=== PATIENT | male | born 1975 | race Two or more races ===

== ENCOUNTER 2016-06-25 | Inpatient (IN) | END 2017-06-24 23:59 | disposition still patient (30) | DRG 189 | DX: J96.10 Chronic respiratory failure, unspecified whether with hypoxia or hypercapnia (principal); G93.1 Anoxic brain damage, not elsewhere classified; R40.3 Persistent vegetative state; Z93.0 Tracheostomy status; R13.10 Dysphagia, unspecified; Z66 Do not resuscitate; K21.9 Gastro-esophageal reflux disease without esophagitis; K62.89 Other specified diseases of anus and rectum; Z87.19 Personal history of other diseases of the digestive system; I10 Essential (primary) hypertension; M24.50 Contracture, unspecified joint; G40.909 Epilepsy, unspecified, not intractable, without status epilepticus ==

== ENCOUNTER → 2016-09-02 | Outpatient (CLI) | payer OTHER ==
[~2016-09-02] MED LIST: ACET160E13 GT; BACL20TA GT; DOCU-25 GT; HEPA500014 SQ; IOHEXOL 300MG/ML 100 ML INFUS..BTL ONE; IV NORMAL SALINE 250 ML IV ONE; OMEG1CAP GT; PANT40TA2 GT; PHEN60TA11 GT; POLY15DR27 EACHEYE; TOLT2TAB2 GT; VALP250S3 GT
== END | disposition home or self-care (01) ==
LOC: CT 08:07
PROVIDERS: ATTEND Internal Medicine
DX: N40.1 Benign prostatic hyperplasia with lower urinary tract symptoms (principal); M24.452 Recurrent dislocation, left hip; R10.9 Unspecified abdominal pain
CPT/HCPCS: J7050; Q9967

== ENCOUNTER 2017-06-25 | Inpatient (IN) | END 2018-06-24 11:59 | disposition other institution (70) | DRG 189 | DX: J96.11 Chronic respiratory failure with hypoxia (principal); G93.1 Anoxic brain damage, not elsewhere classified; R40.3 Persistent vegetative state; L02.11 Cutaneous abscess of neck; L02.214 Cutaneous abscess of groin; L02.412 Cutaneous abscess of left axilla; Z93.0 Tracheostomy status; R13.10 Dysphagia, unspecified; Z66 Do not resuscitate; K21.9 Gastro-esophageal reflux disease without esophagitis; K62.89 Other specified diseases of anus and rectum; Z87.19 Personal history of other diseases of the digestive system; I10 Essential (primary) hypertension; M24.50 Contracture, unspecified joint; G40.909 Epilepsy, unspecified, not intractable, without status epilepticus; H10.9 Unspecified conjunctivitis; E78.1 Pure hyperglyceridemia; L73.9 Follicular disorder, unspecified; Z93.1 Gastrostomy status; Z74.01 Bed confinement status ==

== ENCOUNTER 2018-06-25 | Inpatient (IN) | END 2019-06-24 23:59 | disposition still patient (30) | DRG 189 | DX: J96.11 Chronic respiratory failure with hypoxia (principal); G93.1 Anoxic brain damage, not elsewhere classified; R40.3 Persistent vegetative state; L02.11 Cutaneous abscess of neck; N39.0 Urinary tract infection, site not specified; Z93.0 Tracheostomy status; R13.10 Dysphagia, unspecified; Z66 Do not resuscitate; Z86.74 Personal history of sudden cardiac arrest; K21.9 Gastro-esophageal reflux disease without esophagitis; K62.89 Other specified diseases of anus and rectum; Z87.19 Personal history of other diseases of the digestive system; M24.50 Contracture, unspecified joint; G40.909 Epilepsy, unspecified, not intractable, without status epilepticus; H10.9 Unspecified conjunctivitis; E78.1 Pure hyperglyceridemia; L73.9 Follicular disorder, unspecified; Z93.1 Gastrostomy status; Z74.01 Bed confinement status; H66.90 Otitis media, unspecified, unspecified ear; R32 Unspecified urinary incontinence; Z88.1 Allergy status to other antibiotic agents; L72.3 Sebaceous cyst; B96.5 Pseudomonas (aeruginosa) (mallei) (pseudomallei) as the cause of diseases classified elsewhere; I50.9 Heart failure, unspecified; I11.0 Hypertensive heart disease with heart failure; G62.9 Polyneuropathy, unspecified ==

== ENCOUNTER 2019-06-25 | Inpatient (IN) | payer OTHER ==
[~2019-06-25] VITALS: Ht 182.9 cm; Wt 83.0 kg
[~2019-06-25] MED LIST changes: -ACET160E13 GT; +ACET160E61 GT; +DOCU-141 GT; -DOCU-25 GT; -IOHEXOL 300MG/ML 100 ML INFUS..BTL ONE; -IV NORMAL SALINE 250 ML IV ONE
[2019-06-26 10:11] VITALS: BP 87/52
[2019-06-26] MEDS ORDERED: ACETAMINOPHEN 650 MG/20 ML UDC- SA PATIENTS-PAIN ONLY GT PRN (10:15)
[2019-06-26] MEDS ORDERED: IPRATROPIUM BROMIDE 0.5 MG/2.5 ML NEBU NEB PRN (10:15)
[2019-06-26] MEDS ORDERED: COD LIVER OIL/ZINC OXIDE OINT 113 GM TUBE TP PRN (10:15)
[2019-06-26] MEDS ORDERED: chlorproMAZINE 25 MG TABLET GT PRN (10:15)
[2019-06-26] MEDS ORDERED: ALBUTEROL SULFATE 1.25 MG/3 ML NEBU NEB PRN (10:15)
[2019-06-26] MEDS ORDERED: BISACODYL 10 MG SUPP.RECT RC PRN (10:15)
[2019-06-26] MEDS ORDERED: HYDROGEN PEROXIDE 3% 118 ML BOTTLE TP PRN (10:15)
[2019-06-26] MEDS: POLYVINYL ALCOHOL OPHT DROPS 15 ML BOTTLE EACHEYE SCH ×2 (16:51→20:54)
[2019-06-26] MEDS: IPRATROPIUM BROMIDE 0.5 MG/2.5 ML NEBU NEB SCH (19:40)
[2019-06-26] MEDS: ALBUTEROL SULFATE 1.25 MG/3 ML NEBU NEB SCH (19:40)
[2019-06-26 19:56] VITALS: BP 107/66
[2019-06-26] MEDS: HYDROGEN PEROXIDE 3% 118 ML BOTTLE TP SCH (20:41)
[2019-06-26] MEDS: PHENOBARBITAL 32.4 MG TABLET GT SCH (20:55)
[2019-06-26] MEDS: GEMFIBROZIL 600 MG TABLET GT SCH (20:55)
[2019-06-26] MEDS: PROTEIN SUPPLEMENT (PROSTAT) 30 ML LIQUID GT SCH (20:55)
[2019-06-26] MEDS: OMEGA-3 FATTY ACIDS/FISH OIL CAPSULE GT SCH (20:55)
[2019-06-26] MEDS: CHOLECALCIFEROL 1,000 UNIT TABLET GT SCH (20:55)
[2019-06-26] MEDS: ACIDOPHILUS/BULGARICUS CHEW TAB GT SCH (20:55)
[2019-06-26] MEDS: BACLOFEN 20 MG TABLET GT SCH (20:55)
[2019-06-26] MEDS: AMOXICILLIN-CLAVUL 875-125MG TABLET GT SCH (20:55)
[2019-06-26] MEDS: COD LIVER OIL/ZINC OXIDE OINT 113 GM TUBE TP SCH (20:56)
[2019-06-26] MEDS: BENZOYL PEROXIDE 10% GEL 60 GM TUBE TP SCH (20:56)
[2019-06-26] MEDS: VITAMINS A AND D OINT TP SCH (20:56)
[2019-06-26] MEDS: KETOCONAZOLE 2% SHAMPOO 120 ML BOTTLE TP SCH (20:56)
[2019-06-26] MEDS: VALPROIC ACID 250 MG/5 ML LIQUID UDC GT SCH (21:35)
[2019-06-26] MEDS: ENOXAPARIN SODIUM 40 MG/0.4 ML DISP.SYRIN SQ SCH (21:35)
[2019-06-26] MEDS: JEVITY 1.2 1000 ML LIQUID GT PRN (22:30)
[2019-06-27] MEDS: IPRATROPIUM BROMIDE 0.5 MG/2.5 ML NEBU NEB SCH ×4 (01:54→20:29)
[2019-06-27] MEDS: ALBUTEROL SULFATE 1.25 MG/3 ML NEBU NEB SCH ×4 (01:55→20:29)
[2019-06-27] MEDS: PANTOPRAZOLE ORAL SUSPENSION 40 MG SUSPDR.PKT GT SCH (05:11)
[2019-06-27] MEDS: VALPROIC ACID 250 MG/5 ML LIQUID UDC GT SCH ×3 (05:11→22:03)
[2019-06-27] MEDS: AMOXICILLIN-CLAVUL 875-125MG TABLET GT SCH ×2 (08:34→20:55)
[2019-06-27] MEDS: GEMFIBROZIL 600 MG TABLET GT SCH ×2 (08:34→20:55)
[2019-06-27] MEDS: POLYVINYL ALCOHOL OPHT DROPS 15 ML BOTTLE EACHEYE SCH ×4 (08:34→20:55)
[2019-06-27] MEDS: BACLOFEN 20 MG TABLET GT SCH ×3 (08:34→20:55)
[2019-06-27] MEDS: ACIDOPHILUS/BULGARICUS CHEW TAB GT SCH ×2 (08:34→20:55)
[2019-06-27] MEDS: NUTRISOURCE FIBER 4 GM PACKET GT SCH (08:34)
[2019-06-27] MEDS: DOCUSATE SODIUM 100 MG/10 ML LIQUID UDC GT SCH (08:34)
[2019-06-27] MEDS: VITAMINS A AND D OINT TP SCH ×2 (08:35→20:59)
[2019-06-27] MEDS: CHLORHEXIDINE GLUCONATE 4% TOP SOL 118 ML TP SCH ×2 (08:35)
[2019-06-27] MEDS: PROTEIN SUPPLEMENT (PROSTAT) 30 ML LIQUID GT SCH ×2 (08:35→20:55)
[2019-06-27] MEDS: PHENOBARBITAL 32.4 MG TABLET GT SCH ×2 (08:35→20:55)
[2019-06-27] MEDS: COD LIVER OIL/ZINC OXIDE OINT 113 GM TUBE TP SCH ×2 (08:35→20:59)
[2019-06-27] MEDS ORDERED: PHENOBARBITAL 32.4 MG TABLET PO ONE ×4 (09:00→21:00)
[2019-06-27] MEDS: HYDROGEN PEROXIDE 3% 118 ML BOTTLE TP SCH ×2 (09:56→21:34)
[2019-06-27 11:13] VITALS: BP 95/62
[2019-06-27] MEDS: JEVITY 1.2 1000 ML LIQUID GT PRN (17:19)
[2019-06-27 20:12] VITALS: BP 97/64
[2019-06-27] MEDS: OMEGA-3 FATTY ACIDS/FISH OIL CAPSULE GT SCH (20:55)
[2019-06-27] MEDS: CHOLECALCIFEROL 1,000 UNIT TABLET GT SCH (20:55)
[2019-06-27] MEDS: ENOXAPARIN SODIUM 40 MG/0.4 ML DISP.SYRIN SQ SCH (20:59)
[2019-06-27] MEDS: BENZOYL PEROXIDE 10% GEL 60 GM TUBE TP SCH (20:59)
[2019-06-28] MEDS: IPRATROPIUM BROMIDE 0.5 MG/2.5 ML NEBU NEB SCH ×4 (01:07→20:02)
[2019-06-28] MEDS: ALBUTEROL SULFATE 1.25 MG/3 ML NEBU NEB SCH ×4 (01:07→20:02)
[2019-06-28] MEDS: VALPROIC ACID 250 MG/5 ML LIQUID UDC GT SCH ×3 (05:22→21:18)
[2019-06-28] MEDS: PANTOPRAZOLE ORAL SUSPENSION 40 MG SUSPDR.PKT GT SCH (05:22)
[2019-06-28] MEDS: POLYVINYL ALCOHOL OPHT DROPS 15 ML BOTTLE EACHEYE SCH ×4 (08:45→21:17)
[2019-06-28] MEDS: AMOXICILLIN-CLAVUL 875-125MG TABLET GT SCH ×2 (08:46→21:17)
[2019-06-28] MEDS: DOCUSATE SODIUM 100 MG/10 ML LIQUID UDC GT SCH (08:46)
[2019-06-28] MEDS: ACIDOPHILUS/BULGARICUS CHEW TAB GT SCH ×2 (08:46→21:17)
[2019-06-28] MEDS: PROTEIN SUPPLEMENT (PROSTAT) 30 ML LIQUID GT SCH ×2 (08:47→21:17)
[2019-06-28] MEDS: NUTRISOURCE FIBER 4 GM PACKET GT SCH (08:47)
[2019-06-28] MEDS: COD LIVER OIL/ZINC OXIDE OINT 113 GM TUBE TP SCH ×2 (08:47→21:18)
[2019-06-28] MEDS: BACLOFEN 20 MG TABLET GT SCH ×3 (08:47→21:17)
[2019-06-28] MEDS: GEMFIBROZIL 600 MG TABLET GT SCH ×2 (08:47→21:17)
[2019-06-28] MEDS: CHLORHEXIDINE GLUCONATE 4% TOP SOL 118 ML TP SCH ×2 (08:47→08:48)
[2019-06-28] MEDS: VITAMINS A AND D OINT TP SCH ×2 (08:48→21:18)
[2019-06-28] MEDS: PHENOBARBITAL 32.4 MG TABLET GT SCH ×2 (09:00→21:17)
[2019-06-28] MEDS ORDERED: PHENOBARBITAL 32.4 MG TABLET PO ONE ×4 (09:00→21:00)
[2019-06-28] MEDS: HYDROGEN PEROXIDE 3% 118 ML BOTTLE TP SCH ×2 (10:10→21:57)
[2019-06-28 11:06] VITALS: BP 105/71
[2019-06-28] MEDS: JEVITY 1.2 1000 ML LIQUID GT PRN (12:32)
[2019-06-28] MEDS: CHOLECALCIFEROL 1,000 UNIT TABLET GT SCH (21:17)
[2019-06-28] MEDS: OMEGA-3 FATTY ACIDS/FISH OIL CAPSULE GT SCH (21:17)
[2019-06-28] MEDS: ENOXAPARIN SODIUM 40 MG/0.4 ML DISP.SYRIN SQ SCH (21:18)
[2019-06-28] MEDS: BENZOYL PEROXIDE 10% GEL 60 GM TUBE TP SCH (21:18)
--- NOTE | 2019-06-28 22:30 | NUR ---
eri mohr n.p. was in seen pt, no new orders.
[2019-06-28 22:43] VITALS: BP 95/64
[2019-06-29] MEDS: ALBUTEROL SULFATE 1.25 MG/3 ML NEBU NEB SCH ×4 (00:43→19:33)
[2019-06-29] MEDS: IPRATROPIUM BROMIDE 0.5 MG/2.5 ML NEBU NEB SCH ×4 (00:43→19:33)
[2019-06-29] MEDS: PANTOPRAZOLE ORAL SUSPENSION 40 MG SUSPDR.PKT GT SCH (06:09)
[2019-06-29] MEDS: VALPROIC ACID 250 MG/5 ML LIQUID UDC GT SCH ×3 (06:09→21:48)
[2019-06-29] MEDS: HYDROGEN PEROXIDE 3% 118 ML BOTTLE TP SCH ×2 (07:49→21:05)
[2019-06-29 08:01] VITALS: BP 113/71
[2019-06-29] MEDS ORDERED: PHENOBARBITAL 32.4 MG TABLET PO ONE ×2 (09:00)
[2019-06-29] MEDS: GEMFIBROZIL 600 MG TABLET GT SCH ×2 (09:22→21:48)
[2019-06-29] MEDS: BACLOFEN 20 MG TABLET GT SCH ×3 (09:22→21:48)
[2019-06-29] MEDS: ACIDOPHILUS/BULGARICUS CHEW TAB GT SCH ×2 (09:22→21:48)
[2019-06-29] MEDS: POLYVINYL ALCOHOL OPHT DROPS 15 ML BOTTLE EACHEYE SCH ×4 (09:22→21:48)
[2019-06-29] MEDS: COD LIVER OIL/ZINC OXIDE OINT 113 GM TUBE TP SCH ×2 (09:22→21:48)
[2019-06-29] MEDS: PROTEIN SUPPLEMENT (PROSTAT) 30 ML LIQUID GT SCH ×2 (09:22→21:48)
[2019-06-29] MEDS: NUTRISOURCE FIBER 4 GM PACKET GT SCH (09:22)
[2019-06-29] MEDS: PHENOBARBITAL 32.4 MG TABLET GT SCH ×2 (09:22→21:48)
[2019-06-29] MEDS: AMOXICILLIN-CLAVUL 875-125MG TABLET GT SCH ×2 (09:22→21:48)
[2019-06-29] MEDS: DOCUSATE SODIUM 100 MG/10 ML LIQUID UDC GT SCH (09:22)
[2019-06-29] MEDS: VITAMINS A AND D OINT TP SCH ×2 (09:23→21:48)
[2019-06-29] MEDS: CHLORHEXIDINE GLUCONATE 4% TOP SOL 118 ML TP SCH ×2 (09:23)
[2019-06-29 20:24] VITALS: BP 100/61
--- NOTE | 2019-06-29 21:30 | NUR ---
Remains on Augmentin via gt for folliculitlis, no adverse reactions noted, with ongoing treatment as ordered, kept skin clean and dry, will continue monitor.
[2019-06-29] MEDS: OMEGA-3 FATTY ACIDS/FISH OIL CAPSULE GT SCH (21:48)
[2019-06-29] MEDS: CHOLECALCIFEROL 1,000 UNIT TABLET GT SCH (21:48)
[2019-06-29] MEDS: BENZOYL PEROXIDE 10% GEL 60 GM TUBE TP SCH (21:48)
[2019-06-29] MEDS: ENOXAPARIN SODIUM 40 MG/0.4 ML DISP.SYRIN SQ SCH (21:49)
[2019-06-30] MEDS: IPRATROPIUM BROMIDE 0.5 MG/2.5 ML NEBU NEB SCH ×4 (01:03→19:15)
[2019-06-30] MEDS: ALBUTEROL SULFATE 1.25 MG/3 ML NEBU NEB SCH ×4 (01:04→19:15)
[2019-06-30] MEDS: VALPROIC ACID 250 MG/5 ML LIQUID UDC GT SCH ×3 (05:26→22:21)
[2019-06-30] MEDS: PANTOPRAZOLE ORAL SUSPENSION 40 MG SUSPDR.PKT GT SCH (05:34)
[2019-06-30 08:00] VITALS: BP 101/64
[2019-06-30] MEDS: HYDROGEN PEROXIDE 3% 118 ML BOTTLE TP SCH ×2 (09:00→21:12)
[2019-06-30] MEDS: BACLOFEN 20 MG TABLET GT SCH ×3 (09:55→21:00)
[2019-06-30] MEDS: GEMFIBROZIL 600 MG TABLET GT SCH ×2 (09:55→21:00)
[2019-06-30] MEDS: NUTRISOURCE FIBER 4 GM PACKET GT SCH (09:55)
[2019-06-30] MEDS: ACIDOPHILUS/BULGARICUS CHEW TAB GT SCH ×2 (09:55→21:00)
[2019-06-30] MEDS: DOCUSATE SODIUM 100 MG/10 ML LIQUID UDC GT SCH (09:55)
[2019-06-30] MEDS: PHENOBARBITAL 32.4 MG TABLET GT SCH ×2 (09:55→21:00)
[2019-06-30] MEDS: POLYVINYL ALCOHOL OPHT DROPS 15 ML BOTTLE EACHEYE SCH ×4 (09:55→21:00)
[2019-06-30] MEDS: COD LIVER OIL/ZINC OXIDE OINT 113 GM TUBE TP SCH ×2 (09:56→21:00)
[2019-06-30] MEDS: CHLORHEXIDINE GLUCONATE 4% TOP SOL 118 ML TP SCH ×2 (09:56)
[2019-06-30] MEDS: PROTEIN SUPPLEMENT (PROSTAT) 30 ML LIQUID GT SCH ×2 (09:56→21:00)
[2019-06-30] MEDS: VITAMINS A AND D OINT TP SCH ×2 (09:56→21:00)
[2019-06-30 19:56] VITALS: BP 106/67
[2019-06-30] MEDS: ENOXAPARIN SODIUM 40 MG/0.4 ML DISP.SYRIN SQ SCH (21:00)
[2019-06-30] MEDS: KETOCONAZOLE 2% SHAMPOO 120 ML BOTTLE TP SCH (21:00)
[2019-06-30] MEDS: BENZOYL PEROXIDE 10% GEL 60 GM TUBE TP SCH (21:00)
[2019-06-30] MEDS: CHOLECALCIFEROL 1,000 UNIT TABLET GT SCH (21:00)
[2019-06-30] MEDS: OMEGA-3 FATTY ACIDS/FISH OIL CAPSULE GT SCH (21:00)
[2019-07-01] MEDS: ALBUTEROL SULFATE 1.25 MG/3 ML NEBU NEB SCH ×4 (01:02→18:48)
[2019-07-01] MEDS: IPRATROPIUM BROMIDE 0.5 MG/2.5 ML NEBU NEB SCH ×4 (01:02→18:48)
[2019-07-01] MEDS: PANTOPRAZOLE ORAL SUSPENSION 40 MG SUSPDR.PKT GT SCH (05:14)
[2019-07-01] MEDS: VALPROIC ACID 250 MG/5 ML LIQUID UDC GT SCH ×3 (05:14→22:36)
[2019-07-01] MEDS: JEVITY 1.2 1000 ML LIQUID GT PRN (06:46)
[2019-07-01 08:00] VITALS: BP 124/76
[2019-07-01] MEDS: COD LIVER OIL/ZINC OXIDE OINT 113 GM TUBE TP SCH ×2 (09:00→21:00)
[2019-07-01] MEDS: PROTEIN SUPPLEMENT (PROSTAT) 30 ML LIQUID GT SCH ×2 (09:00→21:00)
[2019-07-01] MEDS: GEMFIBROZIL 600 MG TABLET GT SCH ×2 (09:00→21:00)
[2019-07-01] MEDS: VITAMINS A AND D OINT TP SCH ×2 (09:00→21:00)
[2019-07-01] MEDS: BACLOFEN 20 MG TABLET GT SCH ×3 (09:00→21:00)
[2019-07-01] MEDS: DOCUSATE SODIUM 100 MG/10 ML LIQUID UDC GT SCH (09:00)
[2019-07-01] MEDS: ACIDOPHILUS/BULGARICUS CHEW TAB GT SCH ×2 (09:00→21:00)
[2019-07-01] MEDS: NUTRISOURCE FIBER 4 GM PACKET GT SCH (09:00)
[2019-07-01] MEDS: CHLORHEXIDINE GLUCONATE 4% TOP SOL 118 ML TP SCH ×2 (09:00)
[2019-07-01] MEDS: HYDROGEN PEROXIDE 3% 118 ML BOTTLE TP SCH ×2 (09:00→21:23)
[2019-07-01] MEDS: POLYVINYL ALCOHOL OPHT DROPS 15 ML BOTTLE EACHEYE SCH ×4 (09:00→21:00)
[2019-07-01] MEDS: PHENOBARBITAL 32.4 MG TABLET GT SCH ×2 (09:00→21:00)
--- NOTE | 2019-07-01 14:15 | NUR ---
Pharmacy Update from Today's 07/01/19 IDT Meeting: VS: Temp 98 BP 124/76 HR 86 LABS: (from 04/28/19, no new labs) Wbc 4.3 H/H 14/8/44.1 Plt 185 Na 140 K 4.3 Cl 103 CO2 31 BUN/SCr 11/0.3 BS 96 Ca 9.0 A1C 5.1 MEDICATION USE REVIEWED: > Pt on Phenobarbital 64.8mg BID. Last level on 03/12/19 per rx rec was 36.4 (15-39) > Pt on Valproic acid 1000mg qhs and 500mg qam and 1400. Last level on 03/12/19 was 45 (50-100). Although valcoid acid level slightly low, MD elected continuation with no change in current dose as has been stable on current dose for prolonged period, no reported seizure activity in past month > On Lovenox 40mg SQ daily for DVT Prophylaxis started 01/08. Latest plt 185 > PRN MED USAGE: (Dec) Tylenol for pain used x1 Tylenol for temp used x0 Thorazine 25mg PRN hiccups x0 Bisacodyl supp used x0 NEW ORDERS NOTED: > Doxycycline 100mg q12hr 06/16-06/22 for folliculitis > Augmenting 06/22-06/29 for folliculitis Pt was reviewed and discussed in depth, with no medication issues noted per team. Remains stable, completed courses of abx for pt's chronic ongoing folliculitis which resurfaces now and then. No further medication changes or issues noted per staff, no further recs at this time. Will continue to monitor
--- NOTE | 2019-07-01 16:33 | NUR ---
INTERDISCIPLINARY PLAN OF CARE CONFERENCE was held today. Patient's mother was unable to attend the meeting. Dr. Bowser and the Interdisciplinary Team reviewed the current plan of care in detail. RN reported on patient's current medical condition and recently completed treatments. No major changes in condition were reported at this time. See RN IDT conference notes. See also all other disciplines IDT notes and physician's progress notes for additional details.
[2019-07-01 19:49] VITALS: BP 102/68
[2019-07-01] MEDS: OMEGA-3 FATTY ACIDS/FISH OIL CAPSULE GT SCH (21:00)
[2019-07-01] MEDS: CHOLECALCIFEROL 1,000 UNIT TABLET GT SCH (21:00)
[2019-07-01] MEDS: ENOXAPARIN SODIUM 40 MG/0.4 ML DISP.SYRIN SQ SCH (21:00)
[2019-07-01] MEDS: BENZOYL PEROXIDE 10% GEL 60 GM TUBE TP SCH (21:00)
[2019-07-02] MEDS: IPRATROPIUM BROMIDE 0.5 MG/2.5 ML NEBU NEB SCH ×4 (00:41→19:30)
[2019-07-02] MEDS: ALBUTEROL SULFATE 1.25 MG/3 ML NEBU NEB SCH ×4 (00:41→19:30)
[2019-07-02] MEDS: VALPROIC ACID 250 MG/5 ML LIQUID UDC GT SCH ×3 (06:14→21:19)
[2019-07-02] MEDS: PANTOPRAZOLE ORAL SUSPENSION 40 MG SUSPDR.PKT GT SCH (06:14)
[2019-07-02 08:00] VITALS: BP 111/72
[2019-07-02] MEDS: POLYVINYL ALCOHOL OPHT DROPS 15 ML BOTTLE EACHEYE SCH ×4 (08:37→21:18)
[2019-07-02] MEDS: DOCUSATE SODIUM 100 MG/10 ML LIQUID UDC GT SCH (08:41)
[2019-07-02] MEDS: ACIDOPHILUS/BULGARICUS CHEW TAB GT SCH ×2 (08:41→21:18)
[2019-07-02] MEDS: BACLOFEN 20 MG TABLET GT SCH ×3 (08:42→21:18)
[2019-07-02] MEDS: NUTRISOURCE FIBER 4 GM PACKET GT SCH (08:43)
[2019-07-02] MEDS: GEMFIBROZIL 600 MG TABLET GT SCH ×2 (08:43→21:18)
[2019-07-02] MEDS: PHENOBARBITAL 32.4 MG TABLET GT SCH ×2 (08:43→21:18)
[2019-07-02] MEDS: PROTEIN SUPPLEMENT (PROSTAT) 30 ML LIQUID GT SCH ×2 (08:44→21:18)
[2019-07-02] MEDS: CHLORHEXIDINE GLUCONATE 4% TOP SOL 118 ML TP SCH ×2 (08:44)
[2019-07-02] MEDS: VITAMINS A AND D OINT TP SCH ×2 (08:44→21:19)
[2019-07-02] MEDS: COD LIVER OIL/ZINC OXIDE OINT 113 GM TUBE TP SCH ×2 (08:44→21:19)
[2019-07-02] MEDS ORDERED: PHENOBARBITAL 32.4 MG TABLET PO ONE ×4 (09:00→21:00)
--- NOTE | 2019-07-02 09:00 | NUR ---
Seen and examined by Sandra Pineda ,no new orders noted.
[2019-07-02] MEDS: HYDROGEN PEROXIDE 3% 118 ML BOTTLE TP SCH ×2 (09:18→21:26)
[2019-07-02 19:57] VITALS: BP 123/79
[2019-07-02] MEDS: OMEGA-3 FATTY ACIDS/FISH OIL CAPSULE GT SCH (21:18)
[2019-07-02] MEDS: CHOLECALCIFEROL 1,000 UNIT TABLET GT SCH (21:18)
[2019-07-02] MEDS: ENOXAPARIN SODIUM 40 MG/0.4 ML DISP.SYRIN SQ SCH (21:19)
[2019-07-02] MEDS: BENZOYL PEROXIDE 10% GEL 60 GM TUBE TP SCH (21:19)
[2019-07-03] MEDS: IPRATROPIUM BROMIDE 0.5 MG/2.5 ML NEBU NEB SCH ×4 (01:23→19:34)
[2019-07-03] MEDS: ALBUTEROL SULFATE 1.25 MG/3 ML NEBU NEB SCH ×4 (01:23→19:34)
[2019-07-03] MEDS: JEVITY 1.2 1000 ML LIQUID GT PRN (04:49)
[2019-07-03] MEDS: VALPROIC ACID 250 MG/5 ML LIQUID UDC GT SCH ×3 (06:32→22:33)
[2019-07-03] MEDS: PANTOPRAZOLE ORAL SUSPENSION 40 MG SUSPDR.PKT GT SCH (06:32)
[2019-07-03 08:02] VITALS: BP 100/64
[2019-07-03] MEDS: HYDROGEN PEROXIDE 3% 118 ML BOTTLE TP SCH ×2 (09:00→21:00)
[2019-07-03] MEDS ORDERED: PHENOBARBITAL 32.4 MG TABLET PO ONE ×4 (09:00→21:00)
[2019-07-03] MEDS: DOCUSATE SODIUM 100 MG/10 ML LIQUID UDC GT SCH (09:05)
[2019-07-03] MEDS: POLYVINYL ALCOHOL OPHT DROPS 15 ML BOTTLE EACHEYE SCH ×4 (09:05→20:14)
[2019-07-03] MEDS: CHLORHEXIDINE GLUCONATE 4% TOP SOL 118 ML TP SCH ×2 (09:09)
[2019-07-03] MEDS: GEMFIBROZIL 600 MG TABLET GT SCH ×2 (09:09→20:14)
[2019-07-03] MEDS: BACLOFEN 20 MG TABLET GT SCH ×3 (09:09→20:14)
[2019-07-03] MEDS: COD LIVER OIL/ZINC OXIDE OINT 113 GM TUBE TP SCH ×2 (09:09→20:15)
[2019-07-03] MEDS: PHENOBARBITAL 32.4 MG TABLET GT SCH ×2 (09:09→20:14)
[2019-07-03] MEDS: NUTRISOURCE FIBER 4 GM PACKET GT SCH (09:09)
[2019-07-03] MEDS: VITAMINS A AND D OINT TP SCH ×2 (09:09→20:16)
[2019-07-03] MEDS: ACIDOPHILUS/BULGARICUS CHEW TAB GT SCH ×2 (09:09→20:14)
[2019-07-03] MEDS: PROTEIN SUPPLEMENT (PROSTAT) 30 ML LIQUID GT SCH ×2 (09:09→20:14)
--- NOTE | 2019-07-03 10:35 | NUR ---
SW called patient's Work. Comp. damage adjuster Catherine Scruggs [phone] to discuss authorization process for changes to patient's wheelchair leg rests. TOMY was unable to connect with Catherine, and TOMY left Catherine a voicemail message asking Catherine to call this TOMY back.
--- NOTE | 2019-07-03 15:42 | NUR ---
TOMY received a call back from Catherine Scruggs [phone] at patient's Work. [employer]. insurance. SW discussed the steps needed to get authorization from patient's insurance in order to upgrade patient's wheelchair leg rests. Catherine stated that SW would need to submit a Request for Authorization form, with supporting medical documentation justifying and explaining the new leg rests, along with a physician's order. Catherine stated that once she receives the form and supporting documentation, she would review it and submit it for approval, which Catherine stated usually takes up to 5 days. Catherine stated that TOMY would then receive the authorization in writing, after which TOMY can contact [employer] [phone] who will then assist SW with finding a contracted DME provider. Catherine obtained TOMY's email address and stated that she will email SW a blank Request for Authorization form with instructions on where to submit the form and supporting documents once the form is completed. TOMY thanked Catherine for her time and assistance. TOMY will wait to receive email from Catherine and then work with MD and PT to complete the form and obtain the necessary supporting documents to submit for authorization approval.
[2019-07-03] MEDS: CHOLECALCIFEROL 1,000 UNIT TABLET GT SCH (20:14)
[2019-07-03] MEDS: OMEGA-3 FATTY ACIDS/FISH OIL CAPSULE GT SCH (20:14)
[2019-07-03] MEDS: ENOXAPARIN SODIUM 40 MG/0.4 ML DISP.SYRIN SQ SCH (20:15)
[2019-07-03] MEDS: BENZOYL PEROXIDE 10% GEL 60 GM TUBE TP SCH (20:15)
[2019-07-03] MEDS: KETOCONAZOLE 2% SHAMPOO 120 ML BOTTLE TP SCH (20:16)
[2019-07-03 20:31] VITALS: BP 113/77
[2019-07-04] MEDS: IPRATROPIUM BROMIDE 0.5 MG/2.5 ML NEBU NEB SCH ×4 (00:46→19:41)
[2019-07-04] MEDS: ALBUTEROL SULFATE 1.25 MG/3 ML NEBU NEB SCH ×4 (00:46→19:41)
[2019-07-04] MEDS: JEVITY 1.2 1000 ML LIQUID GT PRN (04:31)
[2019-07-04] MEDS: PANTOPRAZOLE ORAL SUSPENSION 40 MG SUSPDR.PKT GT SCH (06:18)
[2019-07-04] MEDS: VALPROIC ACID 250 MG/5 ML LIQUID UDC GT SCH ×3 (06:18→21:24)
[2019-07-04 08:02] VITALS: BP 106/68
[2019-07-04] MEDS ORDERED: PHENOBARBITAL 32.4 MG TABLET PO ONE ×4 (09:00→21:00)
[2019-07-04] MEDS: HYDROGEN PEROXIDE 3% 118 ML BOTTLE TP SCH ×2 (09:00→21:10)
[2019-07-04] MEDS: CHLORHEXIDINE GLUCONATE 4% TOP SOL 118 ML TP SCH ×2 (09:04)
[2019-07-04] MEDS: COD LIVER OIL/ZINC OXIDE OINT 113 GM TUBE TP SCH ×2 (09:04→21:24)
[2019-07-04] MEDS: PHENOBARBITAL 32.4 MG TABLET GT SCH ×2 (09:04→21:24)
[2019-07-04] MEDS: GEMFIBROZIL 600 MG TABLET GT SCH ×2 (09:04→21:24)
[2019-07-04] MEDS: PROTEIN SUPPLEMENT (PROSTAT) 30 ML LIQUID GT SCH ×2 (09:04→21:24)
[2019-07-04] MEDS: POLYVINYL ALCOHOL OPHT DROPS 15 ML BOTTLE EACHEYE SCH ×4 (09:04→21:24)
[2019-07-04] MEDS: VITAMINS A AND D OINT TP SCH ×2 (09:04→21:24)
[2019-07-04] MEDS: ACIDOPHILUS/BULGARICUS CHEW TAB GT SCH ×2 (09:04→21:24)
[2019-07-04] MEDS: NUTRISOURCE FIBER 4 GM PACKET GT SCH (09:04)
[2019-07-04] MEDS: DOCUSATE SODIUM 100 MG/10 ML LIQUID UDC GT SCH (09:04)
[2019-07-04] MEDS: BACLOFEN 20 MG TABLET GT SCH ×3 (09:04→21:24)
[2019-07-04 20:04] VITALS: BP 99/67
[2019-07-04] MEDS: BENZOYL PEROXIDE 10% GEL 60 GM TUBE TP SCH (21:24)
[2019-07-04] MEDS: OMEGA-3 FATTY ACIDS/FISH OIL CAPSULE GT SCH (21:24)
[2019-07-04] MEDS: ENOXAPARIN SODIUM 40 MG/0.4 ML DISP.SYRIN SQ SCH (21:24)
[2019-07-04] MEDS: CHOLECALCIFEROL 1,000 UNIT TABLET GT SCH (21:24)
[2019-07-05] MEDS: ALBUTEROL SULFATE 1.25 MG/3 ML NEBU NEB SCH ×4 (01:30→19:14)
[2019-07-05] MEDS: IPRATROPIUM BROMIDE 0.5 MG/2.5 ML NEBU NEB SCH ×4 (01:30→19:14)
[2019-07-05] MEDS: JEVITY 1.2 1000 ML LIQUID GT PRN ×2 (02:20→22:30)
[2019-07-05] MEDS: PANTOPRAZOLE ORAL SUSPENSION 40 MG SUSPDR.PKT GT SCH (06:04)
[2019-07-05] MEDS: VALPROIC ACID 250 MG/5 ML LIQUID UDC GT SCH ×3 (06:04→21:38)
[2019-07-05 08:00] VITALS: BP 103/68
[2019-07-05] MEDS: HYDROGEN PEROXIDE 3% 118 ML BOTTLE TP SCH ×2 (08:34→20:53)
[2019-07-05] MEDS ORDERED: PHENOBARBITAL 32.4 MG TABLET PO ONE ×4 (09:00→21:00)
[2019-07-05] MEDS: POLYVINYL ALCOHOL OPHT DROPS 15 ML BOTTLE EACHEYE SCH ×4 (09:04→20:49)
[2019-07-05] MEDS: DOCUSATE SODIUM 100 MG/10 ML LIQUID UDC GT SCH (09:04)
[2019-07-05] MEDS: GEMFIBROZIL 600 MG TABLET GT SCH ×2 (09:04→20:49)
[2019-07-05] MEDS: NUTRISOURCE FIBER 4 GM PACKET GT SCH (09:04)
[2019-07-05] MEDS: PHENOBARBITAL 32.4 MG TABLET GT SCH ×2 (09:04→20:49)
[2019-07-05] MEDS: BACLOFEN 20 MG TABLET GT SCH ×3 (09:04→20:49)
[2019-07-05] MEDS: ACIDOPHILUS/BULGARICUS CHEW TAB GT SCH ×2 (09:04→20:49)
[2019-07-05] MEDS: PROTEIN SUPPLEMENT (PROSTAT) 30 ML LIQUID GT SCH ×2 (09:05→20:49)
[2019-07-05] MEDS: COD LIVER OIL/ZINC OXIDE OINT 113 GM TUBE TP SCH ×2 (09:05→20:50)
[2019-07-05] MEDS: VITAMINS A AND D OINT TP SCH ×2 (09:05→20:50)
[2019-07-05] MEDS: CHLORHEXIDINE GLUCONATE 4% TOP SOL 118 ML TP SCH ×2 (09:05)
--- NOTE | 2019-07-05 09:39 | NUR ---
SEEN BY DR. ALMAGUER AND WITH NNO.
[2019-07-05 20:42] VITALS: BP 106/66
[2019-07-05] MEDS: CHOLECALCIFEROL 1,000 UNIT TABLET GT SCH (20:49)
[2019-07-05] MEDS: OMEGA-3 FATTY ACIDS/FISH OIL CAPSULE GT SCH (20:49)
[2019-07-05] MEDS: BENZOYL PEROXIDE 10% GEL 60 GM TUBE TP SCH (20:50)
[2019-07-05] MEDS: ENOXAPARIN SODIUM 40 MG/0.4 ML DISP.SYRIN SQ SCH (20:50)
[2019-07-06] MEDS: ALBUTEROL SULFATE 1.25 MG/3 ML NEBU NEB SCH ×4 (00:48→19:13)
[2019-07-06] MEDS: IPRATROPIUM BROMIDE 0.5 MG/2.5 ML NEBU NEB SCH ×4 (00:48→19:13)
[2019-07-06] MEDS: VALPROIC ACID 250 MG/5 ML LIQUID UDC GT SCH ×3 (05:38→21:31)
[2019-07-06] MEDS: PANTOPRAZOLE ORAL SUSPENSION 40 MG SUSPDR.PKT GT SCH (05:38)
[2019-07-06] MEDS: HYDROGEN PEROXIDE 3% 118 ML BOTTLE TP SCH ×2 (07:05→20:52)
[2019-07-06 08:00] VITALS: BP 120/72
[2019-07-06] MEDS: BACLOFEN 20 MG TABLET GT SCH ×3 (08:27→20:50)
[2019-07-06] MEDS: NUTRISOURCE FIBER 4 GM PACKET GT SCH (08:27)
[2019-07-06] MEDS: PROTEIN SUPPLEMENT (PROSTAT) 30 ML LIQUID GT SCH ×2 (08:27→20:51)
[2019-07-06] MEDS: COD LIVER OIL/ZINC OXIDE OINT 113 GM TUBE TP SCH ×2 (08:27→20:51)
[2019-07-06] MEDS: PHENOBARBITAL 32.4 MG TABLET GT SCH ×2 (08:27→20:51)
[2019-07-06] MEDS: CHLORHEXIDINE GLUCONATE 4% TOP SOL 118 ML TP SCH ×2 (08:27→08:28)
[2019-07-06] MEDS: POLYVINYL ALCOHOL OPHT DROPS 15 ML BOTTLE EACHEYE SCH ×4 (08:27→20:50)
[2019-07-06] MEDS: GEMFIBROZIL 600 MG TABLET GT SCH ×2 (08:27→20:50)
[2019-07-06] MEDS: ACIDOPHILUS/BULGARICUS CHEW TAB GT SCH ×2 (08:27→20:50)
[2019-07-06] MEDS: DOCUSATE SODIUM 100 MG/10 ML LIQUID UDC GT SCH (08:27)
[2019-07-06] MEDS: VITAMINS A AND D OINT TP SCH ×2 (08:28→20:51)
[2019-07-06] MEDS ORDERED: PHENOBARBITAL 32.4 MG TABLET PO ONE ×4 (09:00→21:00)
[2019-07-06 19:51] VITALS: BP 105/74
[2019-07-06] MEDS: ENOXAPARIN SODIUM 40 MG/0.4 ML DISP.SYRIN SQ SCH (20:43)
[2019-07-06] MEDS: OMEGA-3 FATTY ACIDS/FISH OIL CAPSULE GT SCH (20:50)
[2019-07-06] MEDS: CHOLECALCIFEROL 1,000 UNIT TABLET GT SCH (20:51)
[2019-07-06] MEDS: BENZOYL PEROXIDE 10% GEL 60 GM TUBE TP SCH (20:51)
[2019-07-07] MEDS: ALBUTEROL SULFATE 1.25 MG/3 ML NEBU NEB SCH ×4 (00:43→20:02)
[2019-07-07] MEDS: IPRATROPIUM BROMIDE 0.5 MG/2.5 ML NEBU NEB SCH ×4 (00:43→20:02)
[2019-07-07] MEDS: VALPROIC ACID 250 MG/5 ML LIQUID UDC GT SCH ×3 (05:41→21:46)
[2019-07-07] MEDS: PANTOPRAZOLE ORAL SUSPENSION 40 MG SUSPDR.PKT GT SCH (05:41)
[2019-07-07 08:00] VITALS: BP 102/74
[2019-07-07] MEDS: HYDROGEN PEROXIDE 3% 118 ML BOTTLE TP SCH ×2 (09:00→20:16)
[2019-07-07] MEDS: POLYVINYL ALCOHOL OPHT DROPS 15 ML BOTTLE EACHEYE SCH ×4 (09:07→21:46)
[2019-07-07] MEDS: DOCUSATE SODIUM 100 MG/10 ML LIQUID UDC GT SCH (09:08)
[2019-07-07] MEDS: ACIDOPHILUS/BULGARICUS CHEW TAB GT SCH ×2 (09:09→21:46)
[2019-07-07] MEDS: BACLOFEN 20 MG TABLET GT SCH ×3 (09:09→21:46)
[2019-07-07] MEDS: PHENOBARBITAL 32.4 MG TABLET GT SCH ×2 (09:12→21:46)
[2019-07-07] MEDS: CHLORHEXIDINE GLUCONATE 4% TOP SOL 118 ML TP SCH ×2 (09:12→09:13)
[2019-07-07] MEDS: COD LIVER OIL/ZINC OXIDE OINT 113 GM TUBE TP SCH ×2 (09:12→21:46)
[2019-07-07] MEDS: NUTRISOURCE FIBER 4 GM PACKET GT SCH (09:12)
[2019-07-07] MEDS: PROTEIN SUPPLEMENT (PROSTAT) 30 ML LIQUID GT SCH ×2 (09:12→21:46)
[2019-07-07] MEDS: GEMFIBROZIL 600 MG TABLET GT SCH ×2 (09:12→21:46)
[2019-07-07] MEDS: VITAMINS A AND D OINT TP SCH ×2 (09:13→21:46)
[2019-07-07] MEDS: JEVITY 1.2 1000 ML LIQUID GT PRN (12:32)
--- NOTE | 2019-07-07 13:51 | NUR ---
SEEN AND EXAMINED BY YOLANDA Grider AND WITH CAROLINO.
--- NOTE | 2019-07-07 14:00 | NUR ---
SEEN BY YOLANDA Grider AND WITH NNO.
--- NOTE | 2019-07-07 15:24 | NUR ---
SW informed by KATERIN Patterson that she and LUCAS Smith spoke with patient's mother Sade regarding coming in to meet with this SW in order to sign patient's annual admission paperwork. Sade informed LUCAS Smith that she currently has a cold, and that she will come in as soon as she is feeling better.
[2019-07-07 20:18] VITALS: BP 106/64
[2019-07-07] MEDS: CHOLECALCIFEROL 1,000 UNIT TABLET GT SCH (21:46)
[2019-07-07] MEDS: KETOCONAZOLE 2% SHAMPOO 120 ML BOTTLE TP SCH (21:46)
[2019-07-07] MEDS: OMEGA-3 FATTY ACIDS/FISH OIL CAPSULE GT SCH (21:46)
[2019-07-07] MEDS: BENZOYL PEROXIDE 10% GEL 60 GM TUBE TP SCH (21:46)
[2019-07-07] MEDS: ENOXAPARIN SODIUM 40 MG/0.4 ML DISP.SYRIN SQ SCH (21:47)
[2019-07-08] MEDS: ALBUTEROL SULFATE 1.25 MG/3 ML NEBU NEB SCH ×4 (01:45→19:43)
[2019-07-08] MEDS: IPRATROPIUM BROMIDE 0.5 MG/2.5 ML NEBU NEB SCH ×4 (01:45→19:43)
[2019-07-08] MEDS: JEVITY 1.2 1000 ML LIQUID GT PRN (03:55)
[2019-07-08] MEDS: VALPROIC ACID 250 MG/5 ML LIQUID UDC GT SCH ×3 (05:29→22:00)
[2019-07-08] MEDS: PANTOPRAZOLE ORAL SUSPENSION 40 MG SUSPDR.PKT GT SCH (05:29)
[2019-07-08 08:00] VITALS: BP 103/69
[2019-07-08] MEDS: PROTEIN SUPPLEMENT (PROSTAT) 30 ML LIQUID GT SCH ×2 (08:55→20:37)
[2019-07-08] MEDS: DOCUSATE SODIUM 100 MG/10 ML LIQUID UDC GT SCH (08:55)
[2019-07-08] MEDS: BACLOFEN 20 MG TABLET GT SCH ×3 (08:55→20:37)
[2019-07-08] MEDS: PHENOBARBITAL 32.4 MG TABLET GT SCH ×2 (08:55→20:37)
[2019-07-08] MEDS: GEMFIBROZIL 600 MG TABLET GT SCH ×2 (08:55→20:37)
[2019-07-08] MEDS: COD LIVER OIL/ZINC OXIDE OINT 113 GM TUBE TP SCH ×2 (08:55→20:38)
[2019-07-08] MEDS: ACIDOPHILUS/BULGARICUS CHEW TAB GT SCH ×2 (08:55→20:37)
[2019-07-08] MEDS: POLYVINYL ALCOHOL OPHT DROPS 15 ML BOTTLE EACHEYE SCH ×4 (08:55→20:37)
[2019-07-08] MEDS: CHLORHEXIDINE GLUCONATE 4% TOP SOL 118 ML TP SCH ×2 (08:55)
[2019-07-08] MEDS: VITAMINS A AND D OINT TP SCH ×2 (08:55→20:38)
[2019-07-08] MEDS: NUTRISOURCE FIBER 4 GM PACKET GT SCH (08:55)
[2019-07-08] MEDS: HYDROGEN PEROXIDE 3% 118 ML BOTTLE TP SCH ×2 (09:00→20:57)
--- NOTE | 2019-07-08 14:48 | NUR ---
Seen and examined by Sandra Pineda,no new orders noted.
[2019-07-08 19:44] VITALS: BP 108/70
[2019-07-08] MEDS: OMEGA-3 FATTY ACIDS/FISH OIL CAPSULE GT SCH (20:37)
[2019-07-08] MEDS: CHOLECALCIFEROL 1,000 UNIT TABLET GT SCH (20:37)
[2019-07-08] MEDS: BENZOYL PEROXIDE 10% GEL 60 GM TUBE TP SCH (20:38)
[2019-07-08] MEDS: ENOXAPARIN SODIUM 40 MG/0.4 ML DISP.SYRIN SQ SCH (20:39)
[2019-07-09] MEDS: ALBUTEROL SULFATE 1.25 MG/3 ML NEBU NEB SCH ×4 (01:07→19:22)
[2019-07-09] MEDS: IPRATROPIUM BROMIDE 0.5 MG/2.5 ML NEBU NEB SCH ×4 (01:07→19:22)
[2019-07-09] MEDS: JEVITY 1.2 1000 ML LIQUID GT PRN (02:48)
[2019-07-09] MEDS: VALPROIC ACID 250 MG/5 ML LIQUID UDC GT SCH ×3 (06:20→22:46)
[2019-07-09] MEDS: PANTOPRAZOLE ORAL SUSPENSION 40 MG SUSPDR.PKT GT SCH (06:20)
[2019-07-09 07:51] VITALS: BP 112/71
[2019-07-09] MEDS: HYDROGEN PEROXIDE 3% 118 ML BOTTLE TP SCH ×2 (08:56→21:09)
[2019-07-09] MEDS: NUTRISOURCE FIBER 4 GM PACKET GT SCH (09:04)
[2019-07-09] MEDS: DOCUSATE SODIUM 100 MG/10 ML LIQUID UDC GT SCH (09:04)
[2019-07-09] MEDS: POLYVINYL ALCOHOL OPHT DROPS 15 ML BOTTLE EACHEYE SCH ×4 (09:04→20:14)
[2019-07-09] MEDS: PHENOBARBITAL 32.4 MG TABLET GT SCH ×2 (09:04→20:15)
[2019-07-09] MEDS: COD LIVER OIL/ZINC OXIDE OINT 113 GM TUBE TP SCH ×2 (09:05→20:17)
[2019-07-09] MEDS: ACIDOPHILUS/BULGARICUS CHEW TAB GT SCH ×2 (09:05→20:15)
[2019-07-09] MEDS: PROTEIN SUPPLEMENT (PROSTAT) 30 ML LIQUID GT SCH ×2 (09:05→20:16)
[2019-07-09] MEDS: CHLORHEXIDINE GLUCONATE 4% TOP SOL 118 ML TP SCH ×2 (09:05)
[2019-07-09] MEDS: BACLOFEN 20 MG TABLET GT SCH ×3 (09:05→20:15)
[2019-07-09] MEDS: GEMFIBROZIL 600 MG TABLET GT SCH ×2 (09:05→20:15)
[2019-07-09] MEDS: VITAMINS A AND D OINT TP SCH ×2 (09:05→20:18)
[2019-07-09 20:05] VITALS: BP 115/77
[2019-07-09] MEDS: OMEGA-3 FATTY ACIDS/FISH OIL CAPSULE GT SCH (20:14)
[2019-07-09] MEDS: CHOLECALCIFEROL 1,000 UNIT TABLET GT SCH (20:16)
[2019-07-09] MEDS: ENOXAPARIN SODIUM 40 MG/0.4 ML DISP.SYRIN SQ SCH (20:17)
[2019-07-09] MEDS: BENZOYL PEROXIDE 10% GEL 60 GM TUBE TP SCH (20:18)
[2019-07-09] MEDS ORDERED: PHENOBARBITAL 32.4 MG TABLET PO ONE ×2 (21:00)
[2019-07-10] MEDS: IPRATROPIUM BROMIDE 0.5 MG/2.5 ML NEBU NEB SCH ×4 (00:46→20:15)
[2019-07-10] MEDS: ALBUTEROL SULFATE 1.25 MG/3 ML NEBU NEB SCH ×4 (00:46→20:15)
[2019-07-10] MEDS: JEVITY 1.2 1000 ML LIQUID GT PRN (00:55)
[2019-07-10] MEDS: VALPROIC ACID 250 MG/5 ML LIQUID UDC GT SCH ×3 (06:12→22:37)
[2019-07-10] MEDS: PANTOPRAZOLE ORAL SUSPENSION 40 MG SUSPDR.PKT GT SCH (06:12)
[2019-07-10 08:00] VITALS: BP 109/73
[2019-07-10] MEDS: HYDROGEN PEROXIDE 3% 118 ML BOTTLE TP SCH ×2 (08:16→21:26)
[2019-07-10] MEDS ORDERED: PHENOBARBITAL 32.4 MG TABLET PO ONE ×4 (09:00→21:00)
[2019-07-10] MEDS: POLYVINYL ALCOHOL OPHT DROPS 15 ML BOTTLE EACHEYE SCH ×4 (09:09→20:15)
[2019-07-10] MEDS: DOCUSATE SODIUM 100 MG/10 ML LIQUID UDC GT SCH (09:11)
[2019-07-10] MEDS: ACIDOPHILUS/BULGARICUS CHEW TAB GT SCH ×2 (09:12→20:15)
[2019-07-10] MEDS: PHENOBARBITAL 32.4 MG TABLET GT SCH ×2 (09:13→20:16)
[2019-07-10] MEDS: VITAMINS A AND D OINT TP SCH ×2 (09:13→20:17)
[2019-07-10] MEDS: CHLORHEXIDINE GLUCONATE 4% TOP SOL 118 ML TP SCH ×2 (09:13)
[2019-07-10] MEDS: BACLOFEN 20 MG TABLET GT SCH ×3 (09:13→20:15)
[2019-07-10] MEDS: NUTRISOURCE FIBER 4 GM PACKET GT SCH (09:13)
[2019-07-10] MEDS: COD LIVER OIL/ZINC OXIDE OINT 113 GM TUBE TP SCH ×2 (09:13→20:17)
[2019-07-10] MEDS: GEMFIBROZIL 600 MG TABLET GT SCH ×2 (09:13→20:15)
[2019-07-10] MEDS: PROTEIN SUPPLEMENT (PROSTAT) 30 ML LIQUID GT SCH ×2 (09:13→20:16)
[2019-07-10] MEDS: OMEGA-3 FATTY ACIDS/FISH OIL CAPSULE GT SCH (20:15)
[2019-07-10] MEDS: CHOLECALCIFEROL 1,000 UNIT TABLET GT SCH (20:16)
[2019-07-10] MEDS: KETOCONAZOLE 2% SHAMPOO 120 ML BOTTLE TP SCH (20:17)
[2019-07-10] MEDS: ENOXAPARIN SODIUM 40 MG/0.4 ML DISP.SYRIN SQ SCH (20:17)
[2019-07-10] MEDS: BENZOYL PEROXIDE 10% GEL 60 GM TUBE TP SCH (20:17)
[2019-07-10 20:31] VITALS: BP 105/75
[2019-07-11] MEDS: ALBUTEROL SULFATE 1.25 MG/3 ML NEBU NEB SCH ×4 (01:33→19:36)
[2019-07-11] MEDS: IPRATROPIUM BROMIDE 0.5 MG/2.5 ML NEBU NEB SCH ×4 (01:33→19:36)
[2019-07-11] MEDS: JEVITY 1.2 1000 ML LIQUID GT PRN (02:13)
[2019-07-11] MEDS: VALPROIC ACID 250 MG/5 ML LIQUID UDC GT SCH ×3 (06:01→22:47)
[2019-07-11] MEDS: PANTOPRAZOLE ORAL SUSPENSION 40 MG SUSPDR.PKT GT SCH (06:01)
[2019-07-11 08:00] VITALS: BP 99/59
[2019-07-11] MEDS: DOCUSATE SODIUM 100 MG/10 ML LIQUID UDC GT SCH (08:50)
[2019-07-11] MEDS: POLYVINYL ALCOHOL OPHT DROPS 15 ML BOTTLE EACHEYE SCH ×4 (08:50→21:00)
[2019-07-11] MEDS: CHLORHEXIDINE GLUCONATE 4% TOP SOL 118 ML TP SCH ×2 (08:53)
[2019-07-11] MEDS: ACIDOPHILUS/BULGARICUS CHEW TAB GT SCH ×2 (08:53→21:00)
[2019-07-11] MEDS: BACLOFEN 20 MG TABLET GT SCH ×3 (08:53→21:00)
[2019-07-11] MEDS: VITAMINS A AND D OINT TP SCH ×2 (08:53→21:00)
[2019-07-11] MEDS: GEMFIBROZIL 600 MG TABLET GT SCH ×2 (08:53→21:00)
[2019-07-11] MEDS: NUTRISOURCE FIBER 4 GM PACKET GT SCH (08:53)
[2019-07-11] MEDS: COD LIVER OIL/ZINC OXIDE OINT 113 GM TUBE TP SCH ×2 (08:53→21:00)
[2019-07-11] MEDS: PROTEIN SUPPLEMENT (PROSTAT) 30 ML LIQUID GT SCH ×2 (08:53→21:00)
[2019-07-11] MEDS: PHENOBARBITAL 32.4 MG TABLET GT SCH ×2 (08:53→22:53)
[2019-07-11] MEDS ORDERED: PHENOBARBITAL 32.4 MG TABLET PO ONE ×4 (09:00→21:00)
[2019-07-11] MEDS: HYDROGEN PEROXIDE 3% 118 ML BOTTLE TP SCH ×2 (09:40→21:26)
[2019-07-11 20:22] VITALS: BP 98/63
[2019-07-11] MEDS: OMEGA-3 FATTY ACIDS/FISH OIL CAPSULE GT SCH (21:00)
[2019-07-11] MEDS: BENZOYL PEROXIDE 10% GEL 60 GM TUBE TP SCH (21:00)
[2019-07-11] MEDS: CHOLECALCIFEROL 1,000 UNIT TABLET GT SCH (21:00)
[2019-07-11] MEDS: ENOXAPARIN SODIUM 40 MG/0.4 ML DISP.SYRIN SQ SCH (21:00)
[2019-07-12] MEDS: IPRATROPIUM BROMIDE 0.5 MG/2.5 ML NEBU NEB SCH ×4 (01:03→19:35)
[2019-07-12] MEDS: ALBUTEROL SULFATE 1.25 MG/3 ML NEBU NEB SCH ×4 (01:03→19:35)
[2019-07-12] MEDS: PANTOPRAZOLE ORAL SUSPENSION 40 MG SUSPDR.PKT GT SCH (06:33)
[2019-07-12] MEDS: VALPROIC ACID 250 MG/5 ML LIQUID UDC GT SCH ×3 (06:33→21:04)
[2019-07-12 08:00] VITALS: BP 113/65
[2019-07-12] MEDS: HYDROGEN PEROXIDE 3% 118 ML BOTTLE TP SCH ×2 (08:06→20:22)
[2019-07-12] MEDS: DOCUSATE SODIUM 100 MG/10 ML LIQUID UDC GT SCH (08:25)
[2019-07-12] MEDS: POLYVINYL ALCOHOL OPHT DROPS 15 ML BOTTLE EACHEYE SCH ×4 (08:25→20:25)
[2019-07-12] MEDS: ACIDOPHILUS/BULGARICUS CHEW TAB GT SCH ×2 (08:26→20:25)
[2019-07-12] MEDS: VITAMINS A AND D OINT TP SCH ×2 (08:29→20:22)
[2019-07-12] MEDS: BACLOFEN 20 MG TABLET GT SCH ×3 (08:29→20:24)
[2019-07-12] MEDS: PHENOBARBITAL 32.4 MG TABLET GT SCH ×2 (08:29→20:21)
[2019-07-12] MEDS: PROTEIN SUPPLEMENT (PROSTAT) 30 ML LIQUID GT SCH ×2 (08:29→20:22)
[2019-07-12] MEDS: COD LIVER OIL/ZINC OXIDE OINT 113 GM TUBE TP SCH ×2 (08:29→20:22)
[2019-07-12] MEDS: CHLORHEXIDINE GLUCONATE 4% TOP SOL 118 ML TP SCH ×2 (08:29)
[2019-07-12] MEDS: NUTRISOURCE FIBER 4 GM PACKET GT SCH (08:29)
[2019-07-12] MEDS: GEMFIBROZIL 600 MG TABLET GT SCH ×2 (09:00→20:24)
[2019-07-12] MEDS: JEVITY 1.2 1000 ML LIQUID GT PRN (17:52)
[2019-07-12 20:16] VITALS: BP 104/70
[2019-07-12] MEDS: BENZOYL PEROXIDE 10% GEL 60 GM TUBE TP SCH (20:22)
[2019-07-12] MEDS: CHOLECALCIFEROL 1,000 UNIT TABLET GT SCH (20:23)
[2019-07-12] MEDS: OMEGA-3 FATTY ACIDS/FISH OIL CAPSULE GT SCH (20:25)
[2019-07-12] MEDS: ENOXAPARIN SODIUM 40 MG/0.4 ML DISP.SYRIN SQ SCH (20:27)
[2019-07-13] MEDS: ALBUTEROL SULFATE 1.25 MG/3 ML NEBU NEB SCH ×4 (00:56→19:54)
[2019-07-13] MEDS: IPRATROPIUM BROMIDE 0.5 MG/2.5 ML NEBU NEB SCH ×4 (00:56→19:54)
[2019-07-13] MEDS: PANTOPRAZOLE ORAL SUSPENSION 40 MG SUSPDR.PKT GT SCH (05:36)
[2019-07-13] MEDS: VALPROIC ACID 250 MG/5 ML LIQUID UDC GT SCH ×3 (05:36→22:26)
[2019-07-13] MEDS: PHENOBARBITAL 32.4 MG TABLET GT SCH ×2 (08:01→20:51)
[2019-07-13] MEDS: BACLOFEN 20 MG TABLET GT SCH ×3 (08:01→20:51)
[2019-07-13] MEDS: ACIDOPHILUS/BULGARICUS CHEW TAB GT SCH ×2 (08:01→20:51)
[2019-07-13] MEDS: NUTRISOURCE FIBER 4 GM PACKET GT SCH (08:01)
[2019-07-13] MEDS: PROTEIN SUPPLEMENT (PROSTAT) 30 ML LIQUID GT SCH ×2 (08:01→20:51)
[2019-07-13] MEDS: GEMFIBROZIL 600 MG TABLET GT SCH ×2 (08:01→20:51)
[2019-07-13] MEDS: DOCUSATE SODIUM 100 MG/10 ML LIQUID UDC GT SCH (08:01)
[2019-07-13] MEDS: POLYVINYL ALCOHOL OPHT DROPS 15 ML BOTTLE EACHEYE SCH ×4 (08:01→20:51)
[2019-07-13] MEDS: CHLORHEXIDINE GLUCONATE 4% TOP SOL 118 ML TP SCH ×2 (08:02)
[2019-07-13] MEDS: COD LIVER OIL/ZINC OXIDE OINT 113 GM TUBE TP SCH ×2 (08:02→20:51)
[2019-07-13] MEDS: VITAMINS A AND D OINT TP SCH ×2 (08:02→20:51)
[2019-07-13 08:30] VITALS: BP 127/64
[2019-07-13] MEDS: HYDROGEN PEROXIDE 3% 118 ML BOTTLE TP SCH ×2 (09:40→21:15)
[2019-07-13] MEDS: JEVITY 1.2 1000 ML LIQUID GT PRN (13:29)
[2019-07-13 20:40] VITALS: BP 107/75
[2019-07-13] MEDS: ENOXAPARIN SODIUM 40 MG/0.4 ML DISP.SYRIN SQ SCH (20:49)
[2019-07-13] MEDS: OMEGA-3 FATTY ACIDS/FISH OIL CAPSULE GT SCH (20:51)
[2019-07-13] MEDS: CHOLECALCIFEROL 1,000 UNIT TABLET GT SCH (20:51)
[2019-07-13] MEDS: BENZOYL PEROXIDE 10% GEL 60 GM TUBE TP SCH (20:51)
[2019-07-13] MEDS ORDERED: PHENOBARBITAL 32.4 MG TABLET PO ONE ×2 (21:00)
[2019-07-14] MEDS: ALBUTEROL SULFATE 1.25 MG/3 ML NEBU NEB SCH ×4 (01:24→19:06)
[2019-07-14] MEDS: IPRATROPIUM BROMIDE 0.5 MG/2.5 ML NEBU NEB SCH ×4 (01:24→19:06)
[2019-07-14] MEDS: VALPROIC ACID 250 MG/5 ML LIQUID UDC GT SCH ×3 (05:11→22:02)
[2019-07-14] MEDS: PANTOPRAZOLE ORAL SUSPENSION 40 MG SUSPDR.PKT GT SCH (05:11)
[2019-07-14 08:00] VITALS: BP 104/66
[2019-07-14] MEDS ORDERED: PHENOBARBITAL 32.4 MG TABLET PO ONE ×4 (09:00→21:00)
[2019-07-14] MEDS: HYDROGEN PEROXIDE 3% 118 ML BOTTLE TP SCH ×2 (09:00→21:08)
[2019-07-14] MEDS: POLYVINYL ALCOHOL OPHT DROPS 15 ML BOTTLE EACHEYE SCH ×4 (09:01→20:56)
[2019-07-14] MEDS: PHENOBARBITAL 32.4 MG TABLET GT SCH ×2 (09:01→20:56)
[2019-07-14] MEDS: NUTRISOURCE FIBER 4 GM PACKET GT SCH (09:09)
[2019-07-14] MEDS: CHLORHEXIDINE GLUCONATE 4% TOP SOL 118 ML TP SCH ×2 (09:09→09:10)
[2019-07-14] MEDS: BACLOFEN 20 MG TABLET GT SCH ×3 (09:09→20:56)
[2019-07-14] MEDS: DOCUSATE SODIUM 100 MG/10 ML LIQUID UDC GT SCH (09:09)
[2019-07-14] MEDS: GEMFIBROZIL 600 MG TABLET GT SCH ×2 (09:09→20:56)
[2019-07-14] MEDS: ACIDOPHILUS/BULGARICUS CHEW TAB GT SCH ×2 (09:09→20:56)
[2019-07-14] MEDS: PROTEIN SUPPLEMENT (PROSTAT) 30 ML LIQUID GT SCH ×2 (09:09→20:56)
[2019-07-14] MEDS: COD LIVER OIL/ZINC OXIDE OINT 113 GM TUBE TP SCH ×2 (09:09→20:56)
[2019-07-14] MEDS: VITAMINS A AND D OINT TP SCH ×2 (09:10→20:56)
--- NOTE | 2019-07-14 11:19 | NUR ---
SEEN BY MARCELINO LOPEZ WITH NO NEW ORDER.
[2019-07-14] MEDS: JEVITY 1.2 1000 ML LIQUID GT PRN (12:00)
--- NOTE | 2019-07-14 12:19 | NUR ---
TOMY met with patient's mother Sade today. Patient's annual admission forms were reviewed and signed by Sade, which includes the Conditions of Admission, Patient Rights Acknowledgement, Documentation of Preferred Intensity of Care, Voluntary Prior Express Consent Form, Race and Ethnicity Patient Self-Identification, and the [facility] Agreement. TOMY offered Sade a copy of the signed forms, but Sade stated that she has copies from previous signings. For assessment/quarterly information, see patient's previous chart #[id number].
[2019-07-14 19:52] VITALS: BP 108/64
[2019-07-14] MEDS: CHOLECALCIFEROL 1,000 UNIT TABLET GT SCH (20:56)
[2019-07-14] MEDS: KETOCONAZOLE 2% SHAMPOO 120 ML BOTTLE TP SCH (20:56)
[2019-07-14] MEDS: OMEGA-3 FATTY ACIDS/FISH OIL CAPSULE GT SCH (20:56)
[2019-07-14] MEDS: BENZOYL PEROXIDE 10% GEL 60 GM TUBE TP SCH (20:56)
[2019-07-14] MEDS: ENOXAPARIN SODIUM 40 MG/0.4 ML DISP.SYRIN SQ SCH (20:57)
[2019-07-15] MEDS: ALBUTEROL SULFATE 1.25 MG/3 ML NEBU NEB SCH ×4 (00:49→19:33)
[2019-07-15] MEDS: IPRATROPIUM BROMIDE 0.5 MG/2.5 ML NEBU NEB SCH ×4 (00:49→19:33)
[2019-07-15] MEDS: JEVITY 1.2 1000 ML LIQUID GT PRN (02:33)
[2019-07-15] MEDS: PANTOPRAZOLE ORAL SUSPENSION 40 MG SUSPDR.PKT GT SCH (05:00)
[2019-07-15] MEDS: VALPROIC ACID 250 MG/5 ML LIQUID UDC GT SCH ×3 (05:00→22:08)
[2019-07-15 08:00] VITALS: BP 108/74
[2019-07-15] MEDS: CHLORHEXIDINE GLUCONATE 4% TOP SOL 118 ML TP SCH ×2 (08:57)
[2019-07-15] MEDS: COD LIVER OIL/ZINC OXIDE OINT 113 GM TUBE TP SCH ×2 (08:57→20:01)
[2019-07-15] MEDS: PROTEIN SUPPLEMENT (PROSTAT) 30 ML LIQUID GT SCH ×2 (08:57→20:00)
[2019-07-15] MEDS: BACLOFEN 20 MG TABLET GT SCH ×3 (08:57→20:00)
[2019-07-15] MEDS: NUTRISOURCE FIBER 4 GM PACKET GT SCH (08:57)
[2019-07-15] MEDS: DOCUSATE SODIUM 100 MG/10 ML LIQUID UDC GT SCH (08:57)
[2019-07-15] MEDS: GEMFIBROZIL 600 MG TABLET GT SCH ×2 (08:57→20:00)
[2019-07-15] MEDS: ACIDOPHILUS/BULGARICUS CHEW TAB GT SCH ×2 (08:57→20:00)
[2019-07-15] MEDS: VITAMINS A AND D OINT TP SCH ×2 (08:57→20:01)
[2019-07-15] MEDS: POLYVINYL ALCOHOL OPHT DROPS 15 ML BOTTLE EACHEYE SCH ×4 (08:57→20:00)
[2019-07-15] MEDS ORDERED: PHENOBARBITAL 32.4 MG TABLET PO ONE ×4 (09:00→21:00)
[2019-07-15] MEDS: HYDROGEN PEROXIDE 3% 118 ML BOTTLE TP SCH ×2 (09:00→21:12)
[2019-07-15] MEDS: PHENOBARBITAL 32.4 MG TABLET GT SCH ×2 (09:00→20:00)
[2019-07-15 19:38] VITALS: BP 114/69
[2019-07-15] MEDS: CHOLECALCIFEROL 1,000 UNIT TABLET GT SCH (20:00)
[2019-07-15] MEDS: OMEGA-3 FATTY ACIDS/FISH OIL CAPSULE GT SCH (20:00)
[2019-07-15] MEDS: BENZOYL PEROXIDE 10% GEL 60 GM TUBE TP SCH (20:01)
[2019-07-15] MEDS: ENOXAPARIN SODIUM 40 MG/0.4 ML DISP.SYRIN SQ SCH (20:02)
[2019-07-16] MEDS: JEVITY 1.2 1000 ML LIQUID GT PRN (01:12)
[2019-07-16] MEDS: ALBUTEROL SULFATE 1.25 MG/3 ML NEBU NEB SCH ×4 (02:00→19:24)
[2019-07-16] MEDS: IPRATROPIUM BROMIDE 0.5 MG/2.5 ML NEBU NEB SCH ×4 (02:00→19:23)
[2019-07-16] MEDS: VALPROIC ACID 250 MG/5 ML LIQUID UDC GT SCH ×3 (05:00→21:57)
[2019-07-16] MEDS: PANTOPRAZOLE ORAL SUSPENSION 40 MG SUSPDR.PKT GT SCH (05:00)
[2019-07-16 08:00] VITALS: BP 105/54
[2019-07-16] MEDS: HYDROGEN PEROXIDE 3% 118 ML BOTTLE TP SCH ×2 (09:00→20:58)
[2019-07-16] MEDS: PHENOBARBITAL 32.4 MG TABLET GT SCH ×2 (09:04→21:56)
[2019-07-16] MEDS: DOCUSATE SODIUM 100 MG/10 ML LIQUID UDC GT SCH (09:04)
[2019-07-16] MEDS: POLYVINYL ALCOHOL OPHT DROPS 15 ML BOTTLE EACHEYE SCH ×4 (09:04→21:53)
[2019-07-16] MEDS: VITAMINS A AND D OINT TP SCH ×2 (09:05→21:57)
[2019-07-16] MEDS: COD LIVER OIL/ZINC OXIDE OINT 113 GM TUBE TP SCH ×2 (09:05→21:57)
[2019-07-16] MEDS: ACIDOPHILUS/BULGARICUS CHEW TAB GT SCH ×2 (09:05→21:53)
[2019-07-16] MEDS: NUTRISOURCE FIBER 4 GM PACKET GT SCH (09:05)
[2019-07-16] MEDS: GEMFIBROZIL 600 MG TABLET GT SCH ×2 (09:05→21:55)
[2019-07-16] MEDS: CHLORHEXIDINE GLUCONATE 4% TOP SOL 118 ML TP SCH ×2 (09:05)
[2019-07-16] MEDS: PROTEIN SUPPLEMENT (PROSTAT) 30 ML LIQUID GT SCH ×2 (09:05→21:56)
[2019-07-16] MEDS: BACLOFEN 20 MG TABLET GT SCH ×3 (09:05→21:55)
[2019-07-16 19:55] VITALS: BP 105/83
[2019-07-16 20:22] VITALS: BP 130/91
[2019-07-16] MEDS: OMEGA-3 FATTY ACIDS/FISH OIL CAPSULE GT SCH (21:53)
[2019-07-16] MEDS: CHOLECALCIFEROL 1,000 UNIT TABLET GT SCH (21:56)
[2019-07-16] MEDS: BENZOYL PEROXIDE 10% GEL 60 GM TUBE TP SCH (21:57)
[2019-07-16] MEDS: ENOXAPARIN SODIUM 40 MG/0.4 ML DISP.SYRIN SQ SCH (22:09)
[2019-07-17] MEDS: IPRATROPIUM BROMIDE 0.5 MG/2.5 ML NEBU NEB SCH ×4 (00:34→19:18)
[2019-07-17] MEDS: ALBUTEROL SULFATE 1.25 MG/3 ML NEBU NEB SCH ×4 (00:34→19:18)
[2019-07-17] MEDS: JEVITY 1.2 1000 ML LIQUID GT PRN ×2 (01:00→17:27)
[2019-07-17] MEDS: PANTOPRAZOLE ORAL SUSPENSION 40 MG SUSPDR.PKT GT SCH (06:24)
[2019-07-17] MEDS: VALPROIC ACID 250 MG/5 ML LIQUID UDC GT SCH ×3 (06:24→22:16)
[2019-07-17 08:30] VITALS: BP 107/59
[2019-07-17] MEDS: POLYVINYL ALCOHOL OPHT DROPS 15 ML BOTTLE EACHEYE SCH ×4 (08:53→20:15)
[2019-07-17] MEDS: NUTRISOURCE FIBER 4 GM PACKET GT SCH (08:53)
[2019-07-17] MEDS: DOCUSATE SODIUM 100 MG/10 ML LIQUID UDC GT SCH (08:53)
[2019-07-17] MEDS: ACIDOPHILUS/BULGARICUS CHEW TAB GT SCH ×2 (08:53→20:15)
[2019-07-17] MEDS: PROTEIN SUPPLEMENT (PROSTAT) 30 ML LIQUID GT SCH ×2 (08:53→20:15)
[2019-07-17] MEDS: GEMFIBROZIL 600 MG TABLET GT SCH ×2 (08:53→20:15)
[2019-07-17] MEDS: BACLOFEN 20 MG TABLET GT SCH ×3 (08:53→20:15)
[2019-07-17] MEDS: PHENOBARBITAL 32.4 MG TABLET GT SCH ×2 (08:53→20:15)
[2019-07-17] MEDS: CHLORHEXIDINE GLUCONATE 4% TOP SOL 118 ML TP SCH ×2 (08:53)
[2019-07-17] MEDS: COD LIVER OIL/ZINC OXIDE OINT 113 GM TUBE TP SCH ×2 (08:53→20:15)
[2019-07-17] MEDS: VITAMINS A AND D OINT TP SCH ×2 (08:54→20:16)
[2019-07-17] MEDS: HYDROGEN PEROXIDE 3% 118 ML BOTTLE TP SCH ×2 (09:45→21:00)
[2019-07-17] MEDS: BENZOYL PEROXIDE 10% GEL 60 GM TUBE TP SCH (20:15)
[2019-07-17] MEDS: CHOLECALCIFEROL 1,000 UNIT TABLET GT SCH (20:15)
[2019-07-17] MEDS: OMEGA-3 FATTY ACIDS/FISH OIL CAPSULE GT SCH (20:15)
[2019-07-17] MEDS: KETOCONAZOLE 2% SHAMPOO 120 ML BOTTLE TP SCH (20:16)
[2019-07-17] MEDS: ENOXAPARIN SODIUM 40 MG/0.4 ML DISP.SYRIN SQ SCH (20:28)
[2019-07-17 20:47] VITALS: BP 109/76
[2019-07-18] MEDS: ALBUTEROL SULFATE 1.25 MG/3 ML NEBU NEB SCH ×4 (01:07→19:43)
[2019-07-18] MEDS: IPRATROPIUM BROMIDE 0.5 MG/2.5 ML NEBU NEB SCH ×4 (01:07→19:43)
[2019-07-18] MEDS: PANTOPRAZOLE ORAL SUSPENSION 40 MG SUSPDR.PKT GT SCH (05:29)
[2019-07-18] MEDS: VALPROIC ACID 250 MG/5 ML LIQUID UDC GT SCH ×3 (05:29→21:23)
[2019-07-18 08:01] VITALS: BP 104/69
[2019-07-18] MEDS: POLYVINYL ALCOHOL OPHT DROPS 15 ML BOTTLE EACHEYE SCH ×4 (08:51→20:30)
[2019-07-18] MEDS: DOCUSATE SODIUM 100 MG/10 ML LIQUID UDC GT SCH (08:51)
[2019-07-18] MEDS: ACIDOPHILUS/BULGARICUS CHEW TAB GT SCH ×2 (08:51→20:30)
[2019-07-18] MEDS: BACLOFEN 20 MG TABLET GT SCH ×3 (08:51→20:30)
[2019-07-18] MEDS: VITAMINS A AND D OINT TP SCH ×2 (08:53→20:30)
[2019-07-18] MEDS: COD LIVER OIL/ZINC OXIDE OINT 113 GM TUBE TP SCH ×2 (08:53→20:30)
[2019-07-18] MEDS: NUTRISOURCE FIBER 4 GM PACKET GT SCH (08:53)
[2019-07-18] MEDS: PROTEIN SUPPLEMENT (PROSTAT) 30 ML LIQUID GT SCH ×2 (08:53→20:30)
[2019-07-18] MEDS: GEMFIBROZIL 600 MG TABLET GT SCH ×2 (08:53→20:30)
[2019-07-18] MEDS: CHLORHEXIDINE GLUCONATE 4% TOP SOL 118 ML TP SCH ×2 (08:53)
[2019-07-18] MEDS: PHENOBARBITAL 32.4 MG TABLET GT SCH ×2 (08:53→20:30)
[2019-07-18] MEDS: HYDROGEN PEROXIDE 3% 118 ML BOTTLE TP SCH ×2 (09:00→20:59)
[2019-07-18] MEDS: JEVITY 1.2 1000 ML LIQUID GT PRN (14:31)
[2019-07-18] MEDS: ENOXAPARIN SODIUM 40 MG/0.4 ML DISP.SYRIN SQ SCH (20:30)
[2019-07-18] MEDS: OMEGA-3 FATTY ACIDS/FISH OIL CAPSULE GT SCH (20:30)
[2019-07-18] MEDS: BENZOYL PEROXIDE 10% GEL 60 GM TUBE TP SCH (20:30)
[2019-07-18] MEDS: CHOLECALCIFEROL 1,000 UNIT TABLET GT SCH (20:30)
[2019-07-18 20:46] VITALS: BP 112/66
[2019-07-19] MEDS: ALBUTEROL SULFATE 1.25 MG/3 ML NEBU NEB SCH ×4 (01:07→19:21)
[2019-07-19] MEDS: IPRATROPIUM BROMIDE 0.5 MG/2.5 ML NEBU NEB SCH ×4 (01:07→19:21)
[2019-07-19] MEDS: PANTOPRAZOLE ORAL SUSPENSION 40 MG SUSPDR.PKT GT SCH (05:09)
[2019-07-19] MEDS: VALPROIC ACID 250 MG/5 ML LIQUID UDC GT SCH ×3 (05:09→21:06)
[2019-07-19] MEDS: HYDROGEN PEROXIDE 3% 118 ML BOTTLE TP SCH ×2 (07:44→21:11)
[2019-07-19 08:01] VITALS: BP 102/68
[2019-07-19] MEDS: POLYVINYL ALCOHOL OPHT DROPS 15 ML BOTTLE EACHEYE SCH ×4 (08:57→20:40)
[2019-07-19] MEDS: ACIDOPHILUS/BULGARICUS CHEW TAB GT SCH ×2 (08:59→20:40)
[2019-07-19] MEDS: NUTRISOURCE FIBER 4 GM PACKET GT SCH (08:59)
[2019-07-19] MEDS: DOCUSATE SODIUM 100 MG/10 ML LIQUID UDC GT SCH (08:59)
[2019-07-19] MEDS: GEMFIBROZIL 600 MG TABLET GT SCH ×2 (08:59→20:40)
[2019-07-19] MEDS: BACLOFEN 20 MG TABLET GT SCH ×3 (08:59→20:40)
[2019-07-19] MEDS: PHENOBARBITAL 32.4 MG TABLET GT SCH ×2 (09:01→20:40)
[2019-07-19] MEDS: PROTEIN SUPPLEMENT (PROSTAT) 30 ML LIQUID GT SCH ×2 (09:01→20:40)
[2019-07-19] MEDS: CHLORHEXIDINE GLUCONATE 4% TOP SOL 118 ML TP SCH ×2 (09:02)
[2019-07-19] MEDS: COD LIVER OIL/ZINC OXIDE OINT 113 GM TUBE TP SCH ×2 (09:02→20:40)
[2019-07-19] MEDS: VITAMINS A AND D OINT TP SCH ×2 (09:02→20:41)
[2019-07-19] MEDS ORDERED: PHENOBARBITAL 32.4 MG TABLET ONE (20:06)
[2019-07-19 20:40] VITALS: BP 115/70
[2019-07-19] MEDS: CHOLECALCIFEROL 1,000 UNIT TABLET GT SCH (20:40)
[2019-07-19] MEDS: BENZOYL PEROXIDE 10% GEL 60 GM TUBE TP SCH (20:40)
[2019-07-19] MEDS: OMEGA-3 FATTY ACIDS/FISH OIL CAPSULE GT SCH (20:40)
[2019-07-19] MEDS: ENOXAPARIN SODIUM 40 MG/0.4 ML DISP.SYRIN SQ SCH (20:47)
[2019-07-20] MEDS: IPRATROPIUM BROMIDE 0.5 MG/2.5 ML NEBU NEB SCH ×4 (01:09→18:10)
[2019-07-20] MEDS: ALBUTEROL SULFATE 1.25 MG/3 ML NEBU NEB SCH ×4 (01:09→18:10)
[2019-07-20] MEDS: JEVITY 1.2 1000 ML LIQUID GT PRN (03:39)
[2019-07-20] MEDS: PANTOPRAZOLE ORAL SUSPENSION 40 MG SUSPDR.PKT GT SCH (05:33)
[2019-07-20] MEDS: VALPROIC ACID 250 MG/5 ML LIQUID UDC GT SCH ×3 (05:33→21:28)
[2019-07-20] MEDS: HYDROGEN PEROXIDE 3% 118 ML BOTTLE TP SCH ×2 (08:23→20:57)
[2019-07-20] MEDS: POLYVINYL ALCOHOL OPHT DROPS 15 ML BOTTLE EACHEYE SCH ×4 (09:24→21:19)
[2019-07-20] MEDS: DOCUSATE SODIUM 100 MG/10 ML LIQUID UDC GT SCH (09:24)
[2019-07-20] MEDS: BACLOFEN 20 MG TABLET GT SCH ×3 (09:25→21:26)
[2019-07-20] MEDS: ACIDOPHILUS/BULGARICUS CHEW TAB GT SCH ×2 (09:25→21:20)
[2019-07-20] MEDS: NUTRISOURCE FIBER 4 GM PACKET GT SCH (09:26)
[2019-07-20] MEDS: PHENOBARBITAL 32.4 MG TABLET GT SCH ×2 (09:26→21:21)
[2019-07-20] MEDS: PROTEIN SUPPLEMENT (PROSTAT) 30 ML LIQUID GT SCH ×2 (09:26→21:21)
[2019-07-20] MEDS: GEMFIBROZIL 600 MG TABLET GT SCH ×2 (09:26→21:26)
[2019-07-20] MEDS: COD LIVER OIL/ZINC OXIDE OINT 113 GM TUBE TP SCH ×2 (09:26→21:22)
[2019-07-20] MEDS: CHLORHEXIDINE GLUCONATE 4% TOP SOL 118 ML TP SCH ×2 (09:27)
[2019-07-20] MEDS: VITAMINS A AND D OINT TP SCH ×2 (09:27→21:22)
[2019-07-20 11:04] VITALS: BP 104/63
[2019-07-20 21:08] VITALS: BP 103/67
[2019-07-20] MEDS: OMEGA-3 FATTY ACIDS/FISH OIL CAPSULE GT SCH (21:21)
[2019-07-20] MEDS: BENZOYL PEROXIDE 10% GEL 60 GM TUBE TP SCH (21:22)
[2019-07-20] MEDS: CHOLECALCIFEROL 1,000 UNIT TABLET GT SCH (21:22)
[2019-07-20] MEDS: ENOXAPARIN SODIUM 40 MG/0.4 ML DISP.SYRIN SQ SCH (21:24)
[2019-07-21] MEDS: IPRATROPIUM BROMIDE 0.5 MG/2.5 ML NEBU NEB SCH ×4 (01:03→19:48)
[2019-07-21] MEDS: ALBUTEROL SULFATE 1.25 MG/3 ML NEBU NEB SCH ×4 (01:03→19:48)
[2019-07-21] MEDS: PANTOPRAZOLE ORAL SUSPENSION 40 MG SUSPDR.PKT GT SCH (05:05)
[2019-07-21] MEDS: VALPROIC ACID 250 MG/5 ML LIQUID UDC GT SCH ×3 (05:05→22:34)
[2019-07-21 08:00] VITALS: BP 100/65
[2019-07-21] MEDS: HYDROGEN PEROXIDE 3% 118 ML BOTTLE TP SCH ×2 (09:00→21:52)
--- NOTE | 2019-07-21 09:09 | NUR ---
SEEN AND EXAMINED BY DOUG Grider AND WITH CAROLINO.
[2019-07-21] MEDS: BACLOFEN 20 MG TABLET GT SCH ×3 (09:33→20:10)
[2019-07-21] MEDS: POLYVINYL ALCOHOL OPHT DROPS 15 ML BOTTLE EACHEYE SCH ×4 (09:33→20:09)
[2019-07-21] MEDS: ACIDOPHILUS/BULGARICUS CHEW TAB GT SCH ×2 (09:33→20:09)
[2019-07-21] MEDS: COD LIVER OIL/ZINC OXIDE OINT 113 GM TUBE TP SCH ×2 (09:33→20:12)
[2019-07-21] MEDS: PROTEIN SUPPLEMENT (PROSTAT) 30 ML LIQUID GT SCH ×2 (09:33→20:11)
[2019-07-21] MEDS: NUTRISOURCE FIBER 4 GM PACKET GT SCH (09:33)
[2019-07-21] MEDS: PHENOBARBITAL 32.4 MG TABLET GT SCH ×2 (09:33→20:10)
[2019-07-21] MEDS: DOCUSATE SODIUM 100 MG/10 ML LIQUID UDC GT SCH (09:33)
[2019-07-21] MEDS: GEMFIBROZIL 600 MG TABLET GT SCH ×2 (09:33→20:10)
[2019-07-21] MEDS: VITAMINS A AND D OINT TP SCH ×2 (09:34→20:12)
[2019-07-21] MEDS: CHLORHEXIDINE GLUCONATE 4% TOP SOL 118 ML TP SCH ×2 (09:34)
--- NOTE | 2019-07-21 12:00 | NUR ---
SEEN BY YOLANDA Kothari AND WITH NNO.
[2019-07-21] MEDS: JEVITY 1.2 1000 ML LIQUID GT PRN (17:37)
[2019-07-21] MEDS: OMEGA-3 FATTY ACIDS/FISH OIL CAPSULE GT SCH (20:09)
[2019-07-21] MEDS: CHOLECALCIFEROL 1,000 UNIT TABLET GT SCH (20:12)
[2019-07-21] MEDS: KETOCONAZOLE 2% SHAMPOO 120 ML BOTTLE TP SCH (20:12)
[2019-07-21] MEDS: BENZOYL PEROXIDE 10% GEL 60 GM TUBE TP SCH (20:12)
[2019-07-21 20:14] VITALS: BP 114/71
[2019-07-21] MEDS: ENOXAPARIN SODIUM 40 MG/0.4 ML DISP.SYRIN SQ SCH (21:00)
[2019-07-22] MEDS: ALBUTEROL SULFATE 1.25 MG/3 ML NEBU NEB SCH ×4 (02:03→19:15)
[2019-07-22] MEDS: IPRATROPIUM BROMIDE 0.5 MG/2.5 ML NEBU NEB SCH ×4 (02:03→19:15)
[2019-07-22] MEDS: VALPROIC ACID 250 MG/5 ML LIQUID UDC GT SCH ×3 (06:23→22:57)
[2019-07-22] MEDS: PANTOPRAZOLE ORAL SUSPENSION 40 MG SUSPDR.PKT GT SCH (06:23)
[2019-07-22] MEDS: JEVITY 1.2 1000 ML LIQUID GT PRN (06:24)
[2019-07-22 08:00] VITALS: BP 104/70
[2019-07-22] MEDS: HYDROGEN PEROXIDE 3% 118 ML BOTTLE TP SCH ×2 (08:39→21:06)
[2019-07-22] MEDS: DOCUSATE SODIUM 100 MG/10 ML LIQUID UDC GT SCH (09:07)
[2019-07-22] MEDS: ACIDOPHILUS/BULGARICUS CHEW TAB GT SCH ×2 (09:07→20:03)
[2019-07-22] MEDS: POLYVINYL ALCOHOL OPHT DROPS 15 ML BOTTLE EACHEYE SCH ×4 (09:07→20:03)
[2019-07-22] MEDS: NUTRISOURCE FIBER 4 GM PACKET GT SCH (09:08)
[2019-07-22] MEDS: COD LIVER OIL/ZINC OXIDE OINT 113 GM TUBE TP SCH ×2 (09:08→20:05)
[2019-07-22] MEDS: CHLORHEXIDINE GLUCONATE 4% TOP SOL 118 ML TP SCH ×2 (09:08)
[2019-07-22] MEDS: PHENOBARBITAL 32.4 MG TABLET GT SCH ×2 (09:08→20:04)
[2019-07-22] MEDS: PROTEIN SUPPLEMENT (PROSTAT) 30 ML LIQUID GT SCH ×2 (09:08→20:04)
[2019-07-22] MEDS: VITAMINS A AND D OINT TP SCH ×2 (09:08→20:05)
[2019-07-22] MEDS: GEMFIBROZIL 600 MG TABLET GT SCH ×2 (09:08→20:04)
[2019-07-22] MEDS: BACLOFEN 20 MG TABLET GT SCH ×3 (09:08→20:04)
--- NOTE | 2019-07-22 11:00 | NUR ---
Seen and examined by Sandra Pineda,no new orders.
[2019-07-22] MEDS: OMEGA-3 FATTY ACIDS/FISH OIL CAPSULE GT SCH (20:03)
[2019-07-22] MEDS: CHOLECALCIFEROL 1,000 UNIT TABLET GT SCH (20:05)
[2019-07-22] MEDS: BENZOYL PEROXIDE 10% GEL 60 GM TUBE TP SCH (20:05)
[2019-07-22] MEDS: ENOXAPARIN SODIUM 40 MG/0.4 ML DISP.SYRIN SQ SCH (20:05)
[2019-07-22 20:14] VITALS: BP 112/76
[2019-07-23] MEDS: IPRATROPIUM BROMIDE 0.5 MG/2.5 ML NEBU NEB SCH ×4 (00:46→19:19)
[2019-07-23] MEDS: ALBUTEROL SULFATE 1.25 MG/3 ML NEBU NEB SCH ×4 (00:46→19:19)
[2019-07-23] MEDS: JEVITY 1.2 1000 ML LIQUID GT PRN (01:30)
[2019-07-23] MEDS: VALPROIC ACID 250 MG/5 ML LIQUID UDC GT SCH ×3 (06:24→22:00)
[2019-07-23] MEDS: PANTOPRAZOLE ORAL SUSPENSION 40 MG SUSPDR.PKT GT SCH (06:24)
[2019-07-23] MEDS: HYDROGEN PEROXIDE 3% 118 ML BOTTLE TP SCH ×2 (08:15→21:06)
[2019-07-23] MEDS: POLYVINYL ALCOHOL OPHT DROPS 15 ML BOTTLE EACHEYE SCH ×4 (09:03→20:01)
[2019-07-23] MEDS: ACIDOPHILUS/BULGARICUS CHEW TAB GT SCH ×2 (09:04→20:01)
[2019-07-23] MEDS: PHENOBARBITAL 32.4 MG TABLET GT SCH ×2 (09:04→20:02)
[2019-07-23] MEDS: DOCUSATE SODIUM 100 MG/10 ML LIQUID UDC GT SCH (09:04)
[2019-07-23] MEDS: BACLOFEN 20 MG TABLET GT SCH ×3 (09:04→20:02)
[2019-07-23] MEDS: GEMFIBROZIL 600 MG TABLET GT SCH ×2 (09:04→20:02)
[2019-07-23] MEDS: PROTEIN SUPPLEMENT (PROSTAT) 30 ML LIQUID GT SCH ×2 (09:06→20:02)
[2019-07-23] MEDS: VITAMINS A AND D OINT TP SCH ×2 (09:06→20:03)
[2019-07-23] MEDS: CHLORHEXIDINE GLUCONATE 4% TOP SOL 118 ML TP SCH ×2 (09:06)
[2019-07-23] MEDS: NUTRISOURCE FIBER 4 GM PACKET GT SCH (09:06)
[2019-07-23] MEDS: COD LIVER OIL/ZINC OXIDE OINT 113 GM TUBE TP SCH ×2 (09:06→20:03)
[2019-07-23 12:50] VITALS: BP 98/63
--- NOTE | 2019-07-23 19:27 | NUR ---
Seen and examined by Dr Bowser,no new orders noted.
[2019-07-23 19:54] VITALS: BP 105/65
[2019-07-23] MEDS: OMEGA-3 FATTY ACIDS/FISH OIL CAPSULE GT SCH (20:01)
[2019-07-23] MEDS: CHOLECALCIFEROL 1,000 UNIT TABLET GT SCH (20:02)
[2019-07-23] MEDS: ENOXAPARIN SODIUM 40 MG/0.4 ML DISP.SYRIN SQ SCH (20:03)
[2019-07-23] MEDS: BENZOYL PEROXIDE 10% GEL 60 GM TUBE TP SCH (20:03)
[2019-07-24] MEDS: JEVITY 1.2 1000 ML LIQUID GT PRN (00:30)
[2019-07-24] MEDS: IPRATROPIUM BROMIDE 0.5 MG/2.5 ML NEBU NEB SCH ×4 (01:02→19:54)
[2019-07-24] MEDS: ALBUTEROL SULFATE 1.25 MG/3 ML NEBU NEB SCH ×4 (01:02→19:54)
[2019-07-24] MEDS: VALPROIC ACID 250 MG/5 ML LIQUID UDC GT SCH ×3 (06:08→21:02)
[2019-07-24] MEDS: PANTOPRAZOLE ORAL SUSPENSION 40 MG SUSPDR.PKT GT SCH (06:08)
[2019-07-24] MEDS: HYDROGEN PEROXIDE 3% 118 ML BOTTLE TP SCH ×2 (07:49→20:28)
[2019-07-24 08:30] VITALS: BP 101/70
[2019-07-24] MEDS: PHENOBARBITAL 32.4 MG TABLET GT SCH ×2 (08:59→20:47)
[2019-07-24] MEDS: COD LIVER OIL/ZINC OXIDE OINT 113 GM TUBE TP SCH ×2 (08:59→20:28)
[2019-07-24] MEDS: VITAMINS A AND D OINT TP SCH ×2 (08:59→20:28)
[2019-07-24] MEDS: CHLORHEXIDINE GLUCONATE 4% TOP SOL 118 ML TP SCH ×2 (08:59)
[2019-07-24] MEDS: PROTEIN SUPPLEMENT (PROSTAT) 30 ML LIQUID GT SCH ×2 (08:59→20:28)
[2019-07-24] MEDS: NUTRISOURCE FIBER 4 GM PACKET GT SCH (08:59)
[2019-07-24] MEDS: ACIDOPHILUS/BULGARICUS CHEW TAB GT SCH ×2 (08:59→20:25)
[2019-07-24] MEDS: BACLOFEN 20 MG TABLET GT SCH ×3 (08:59→20:27)
[2019-07-24] MEDS: POLYVINYL ALCOHOL OPHT DROPS 15 ML BOTTLE EACHEYE SCH ×4 (08:59→21:51)
[2019-07-24] MEDS: DOCUSATE SODIUM 100 MG/10 ML LIQUID UDC GT SCH (08:59)
[2019-07-24] MEDS: GEMFIBROZIL 600 MG TABLET GT SCH ×2 (08:59→20:30)
[2019-07-24 19:53] VITALS: BP 96/79
[2019-07-24] MEDS: OMEGA-3 FATTY ACIDS/FISH OIL CAPSULE GT SCH (20:26)
[2019-07-24] MEDS: CHOLECALCIFEROL 1,000 UNIT TABLET GT SCH (20:28)
[2019-07-24] MEDS: BENZOYL PEROXIDE 10% GEL 60 GM TUBE TP SCH (20:28)
[2019-07-24] MEDS: KETOCONAZOLE 2% SHAMPOO 120 ML BOTTLE TP SCH (20:28)
[2019-07-24] MEDS: ENOXAPARIN SODIUM 40 MG/0.4 ML DISP.SYRIN SQ SCH (20:49)
[2019-07-25] MEDS: IPRATROPIUM BROMIDE 0.5 MG/2.5 ML NEBU NEB SCH ×4 (01:43→19:08)
[2019-07-25] MEDS: ALBUTEROL SULFATE 1.25 MG/3 ML NEBU NEB SCH ×4 (01:43→19:08)
[2019-07-25] MEDS: PANTOPRAZOLE ORAL SUSPENSION 40 MG SUSPDR.PKT GT SCH (05:52)
[2019-07-25] MEDS: VALPROIC ACID 250 MG/5 ML LIQUID UDC GT SCH ×3 (05:52→21:04)
[2019-07-25] MEDS: HYDROGEN PEROXIDE 3% 118 ML BOTTLE TP SCH ×2 (07:27→20:58)
[2019-07-25 08:01] VITALS: BP 98/68
[2019-07-25] MEDS: ACIDOPHILUS/BULGARICUS CHEW TAB GT SCH ×2 (08:19→20:52)
[2019-07-25] MEDS: POLYVINYL ALCOHOL OPHT DROPS 15 ML BOTTLE EACHEYE SCH ×4 (08:19→20:50)
[2019-07-25] MEDS: GEMFIBROZIL 600 MG TABLET GT SCH ×2 (08:19→20:57)
[2019-07-25] MEDS: PROTEIN SUPPLEMENT (PROSTAT) 30 ML LIQUID GT SCH ×2 (08:19→20:57)
[2019-07-25] MEDS: CHLORHEXIDINE GLUCONATE 4% TOP SOL 118 ML TP SCH ×2 (08:19)
[2019-07-25] MEDS: COD LIVER OIL/ZINC OXIDE OINT 113 GM TUBE TP SCH ×2 (08:19→20:57)
[2019-07-25] MEDS: PHENOBARBITAL 32.4 MG TABLET GT SCH ×2 (08:19→20:54)
[2019-07-25] MEDS: NUTRISOURCE FIBER 4 GM PACKET GT SCH (08:19)
[2019-07-25] MEDS: BACLOFEN 20 MG TABLET GT SCH ×3 (08:19→20:57)
[2019-07-25] MEDS: VITAMINS A AND D OINT TP SCH ×2 (08:19→20:58)
[2019-07-25] MEDS: DOCUSATE SODIUM 100 MG/10 ML LIQUID UDC GT SCH (08:19)
[2019-07-25 20:00] VITALS: BP 134/90
[2019-07-25] MEDS: OMEGA-3 FATTY ACIDS/FISH OIL CAPSULE GT SCH (20:51)
[2019-07-25] MEDS: CHOLECALCIFEROL 1,000 UNIT TABLET GT SCH (20:57)
[2019-07-25] MEDS: BENZOYL PEROXIDE 10% GEL 60 GM TUBE TP SCH (20:58)
[2019-07-25] MEDS: ENOXAPARIN SODIUM 40 MG/0.4 ML DISP.SYRIN SQ SCH (20:59)
[2019-07-26] MEDS: IPRATROPIUM BROMIDE 0.5 MG/2.5 ML NEBU NEB SCH ×4 (01:03→19:00)
[2019-07-26] MEDS: ALBUTEROL SULFATE 1.25 MG/3 ML NEBU NEB SCH ×4 (01:03→19:00)
[2019-07-26] MEDS: JEVITY 1.2 1000 ML LIQUID GT PRN (02:14)
[2019-07-26] MEDS: PANTOPRAZOLE ORAL SUSPENSION 40 MG SUSPDR.PKT GT SCH (05:51)
[2019-07-26] MEDS: VALPROIC ACID 250 MG/5 ML LIQUID UDC GT SCH ×3 (05:51→22:13)
[2019-07-26 08:01] VITALS: BP 94/62
[2019-07-26] MEDS: POLYVINYL ALCOHOL OPHT DROPS 15 ML BOTTLE EACHEYE SCH ×4 (09:18→21:00)
[2019-07-26] MEDS: DOCUSATE SODIUM 100 MG/10 ML LIQUID UDC GT SCH (09:18)
[2019-07-26] MEDS: PHENOBARBITAL 32.4 MG TABLET GT SCH ×2 (09:19→21:00)
[2019-07-26] MEDS: CHLORHEXIDINE GLUCONATE 4% TOP SOL 118 ML TP SCH ×2 (09:19)
[2019-07-26] MEDS: VITAMINS A AND D OINT TP SCH ×2 (09:19→21:00)
[2019-07-26] MEDS: GEMFIBROZIL 600 MG TABLET GT SCH ×2 (09:19→21:00)
[2019-07-26] MEDS: BACLOFEN 20 MG TABLET GT SCH ×3 (09:19→21:00)
[2019-07-26] MEDS: PROTEIN SUPPLEMENT (PROSTAT) 30 ML LIQUID GT SCH ×2 (09:19→21:00)
[2019-07-26] MEDS: COD LIVER OIL/ZINC OXIDE OINT 113 GM TUBE TP SCH ×2 (09:19→21:00)
[2019-07-26] MEDS: NUTRISOURCE FIBER 4 GM PACKET GT SCH (09:19)
[2019-07-26] MEDS: ACIDOPHILUS/BULGARICUS CHEW TAB GT SCH ×2 (09:19→21:00)
[2019-07-26] MEDS: HYDROGEN PEROXIDE 3% 118 ML BOTTLE TP SCH ×2 (09:53→21:24)
[2019-07-26] MEDS: OMEGA-3 FATTY ACIDS/FISH OIL CAPSULE GT SCH (21:00)
[2019-07-26] MEDS: BENZOYL PEROXIDE 10% GEL 60 GM TUBE TP SCH (21:00)
[2019-07-26] MEDS: CHOLECALCIFEROL 1,000 UNIT TABLET GT SCH (21:00)
[2019-07-26] MEDS: ENOXAPARIN SODIUM 40 MG/0.4 ML DISP.SYRIN SQ SCH (21:00)
[2019-07-26 23:00] VITALS: BP 110/71
[2019-07-27] MEDS: IPRATROPIUM BROMIDE 0.5 MG/2.5 ML NEBU NEB SCH ×4 (00:49→19:23)
[2019-07-27] MEDS: ALBUTEROL SULFATE 1.25 MG/3 ML NEBU NEB SCH ×4 (00:49→19:23)
[2019-07-27] MEDS: JEVITY 1.2 1000 ML LIQUID GT PRN (02:51)
[2019-07-27] MEDS: PANTOPRAZOLE ORAL SUSPENSION 40 MG SUSPDR.PKT GT SCH (06:16)
[2019-07-27] MEDS: VALPROIC ACID 250 MG/5 ML LIQUID UDC GT SCH ×3 (06:16→21:48)
[2019-07-27 08:01] VITALS: BP 98/67
[2019-07-27] MEDS: PHENOBARBITAL 32.4 MG TABLET GT SCH ×2 (08:50→20:06)
[2019-07-27] MEDS: BACLOFEN 20 MG TABLET GT SCH ×3 (08:50→20:06)
[2019-07-27] MEDS: DOCUSATE SODIUM 100 MG/10 ML LIQUID UDC GT SCH (08:50)
[2019-07-27] MEDS: ACIDOPHILUS/BULGARICUS CHEW TAB GT SCH ×2 (08:50→20:06)
[2019-07-27] MEDS: POLYVINYL ALCOHOL OPHT DROPS 15 ML BOTTLE EACHEYE SCH ×4 (08:50→20:05)
[2019-07-27] MEDS: NUTRISOURCE FIBER 4 GM PACKET GT SCH (08:50)
[2019-07-27] MEDS: GEMFIBROZIL 600 MG TABLET GT SCH ×2 (08:50→20:06)
[2019-07-27] MEDS: CHLORHEXIDINE GLUCONATE 4% TOP SOL 118 ML TP SCH ×2 (08:51)
[2019-07-27] MEDS: COD LIVER OIL/ZINC OXIDE OINT 113 GM TUBE TP SCH ×2 (08:51→20:07)
[2019-07-27] MEDS: PROTEIN SUPPLEMENT (PROSTAT) 30 ML LIQUID GT SCH ×2 (08:51→20:06)
[2019-07-27] MEDS: VITAMINS A AND D OINT TP SCH ×2 (08:51→20:53)
[2019-07-27] MEDS: HYDROGEN PEROXIDE 3% 118 ML BOTTLE TP SCH ×2 (09:00→20:29)
[2019-07-27] MEDS: OMEGA-3 FATTY ACIDS/FISH OIL CAPSULE GT SCH (20:05)
[2019-07-27] MEDS: CHOLECALCIFEROL 1,000 UNIT TABLET GT SCH (20:06)
[2019-07-27] MEDS: BENZOYL PEROXIDE 10% GEL 60 GM TUBE TP SCH (20:07)
[2019-07-27 20:29] VITALS: BP 120/71
[2019-07-27] MEDS: ENOXAPARIN SODIUM 40 MG/0.4 ML DISP.SYRIN SQ SCH (20:54)
[2019-07-28] MEDS: ALBUTEROL SULFATE 1.25 MG/3 ML NEBU NEB SCH ×4 (00:48→19:11)
[2019-07-28] MEDS: IPRATROPIUM BROMIDE 0.5 MG/2.5 ML NEBU NEB SCH ×4 (00:48→19:11)
[2019-07-28] MEDS: PANTOPRAZOLE ORAL SUSPENSION 40 MG SUSPDR.PKT GT SCH (05:48)
[2019-07-28] MEDS: VALPROIC ACID 250 MG/5 ML LIQUID UDC GT SCH ×3 (05:48→21:54)
[2019-07-28] MEDS: JEVITY 1.2 1000 ML LIQUID GT PRN (05:49)
[2019-07-28 08:00] VITALS: BP 95/65
[2019-07-28] MEDS: POLYVINYL ALCOHOL OPHT DROPS 15 ML BOTTLE EACHEYE SCH ×4 (08:18→20:21)
[2019-07-28] MEDS: DOCUSATE SODIUM 100 MG/10 ML LIQUID UDC GT SCH (08:19)
[2019-07-28] MEDS: NUTRISOURCE FIBER 4 GM PACKET GT SCH (08:20)
[2019-07-28] MEDS: GEMFIBROZIL 600 MG TABLET GT SCH ×2 (08:20→20:21)
[2019-07-28] MEDS: BACLOFEN 20 MG TABLET GT SCH ×3 (08:20→20:21)
[2019-07-28] MEDS: ACIDOPHILUS/BULGARICUS CHEW TAB GT SCH ×2 (08:20→20:21)
[2019-07-28] MEDS: PHENOBARBITAL 32.4 MG TABLET GT SCH ×2 (08:21→20:21)
[2019-07-28] MEDS: VITAMINS A AND D OINT TP SCH ×2 (08:21→20:26)
[2019-07-28] MEDS: CHLORHEXIDINE GLUCONATE 4% TOP SOL 118 ML TP SCH ×2 (08:21)
[2019-07-28] MEDS: PROTEIN SUPPLEMENT (PROSTAT) 30 ML LIQUID GT SCH ×2 (08:21→20:25)
[2019-07-28] MEDS: COD LIVER OIL/ZINC OXIDE OINT 113 GM TUBE TP SCH ×2 (08:21→20:25)
[2019-07-28] MEDS: HYDROGEN PEROXIDE 3% 118 ML BOTTLE TP SCH ×2 (09:00→21:08)
[2019-07-28 19:47] VITALS: BP 100/72
[2019-07-28] MEDS: OMEGA-3 FATTY ACIDS/FISH OIL CAPSULE GT SCH (20:21)
[2019-07-28] MEDS: CHOLECALCIFEROL 1,000 UNIT TABLET GT SCH (20:25)
[2019-07-28] MEDS: BENZOYL PEROXIDE 10% GEL 60 GM TUBE TP SCH (20:25)
[2019-07-28] MEDS: KETOCONAZOLE 2% SHAMPOO 120 ML BOTTLE TP SCH (20:26)
[2019-07-28] MEDS: ENOXAPARIN SODIUM 40 MG/0.4 ML DISP.SYRIN SQ SCH (21:54)
--- NOTE | 2019-07-29 | NUR ---
VSS @ 2000 WERE 98.0-86-18 BP 100/72. SATS 95%. PATIENT IS NONVERBAL AND KEEPS EYES CLOSED. TRACHED TO 28% MIST MASK. SKIN WARM, DRY, AND INTACT. NO ACTIVE ROM X 4 WITH CONTRACTURES. ABDOMEN SOFTLY DISTENDED WITH +BOWEL SOUNDS. GTUBE PATENT FOR JEVITY 1.2 @ 55CC/HOUR. RESIDUAL<2CC----FEEDING CONTINUES WITHOUT INTERRUPTION. INCONTINENT OF BOWEL AND BLADDER. NO SIGNS OF ACUTE CARDIAC/RESPIRATORY DISTRESS OR SUPPRESSION.
[2019-07-29] MEDS: IPRATROPIUM BROMIDE 0.5 MG/2.5 ML NEBU NEB SCH ×4 (01:00→19:21)
[2019-07-29] MEDS: ALBUTEROL SULFATE 1.25 MG/3 ML NEBU NEB SCH ×4 (01:00→19:21)
[2019-07-29] MEDS: VALPROIC ACID 250 MG/5 ML LIQUID UDC GT SCH ×3 (06:16→22:28)
[2019-07-29] MEDS: PANTOPRAZOLE ORAL SUSPENSION 40 MG SUSPDR.PKT GT SCH (06:16)
[2019-07-29 08:00] VITALS: BP 110/78
[2019-07-29] MEDS: HYDROGEN PEROXIDE 3% 118 ML BOTTLE TP SCH ×2 (09:00→20:54)
[2019-07-29] MEDS: GEMFIBROZIL 600 MG TABLET GT SCH ×2 (09:04→20:07)
[2019-07-29] MEDS: NUTRISOURCE FIBER 4 GM PACKET GT SCH (09:04)
[2019-07-29] MEDS: BACLOFEN 20 MG TABLET GT SCH ×3 (09:04→20:07)
[2019-07-29] MEDS: PROTEIN SUPPLEMENT (PROSTAT) 30 ML LIQUID GT SCH ×2 (09:04→20:07)
[2019-07-29] MEDS: DOCUSATE SODIUM 100 MG/10 ML LIQUID UDC GT SCH (09:04)
[2019-07-29] MEDS: POLYVINYL ALCOHOL OPHT DROPS 15 ML BOTTLE EACHEYE SCH ×4 (09:04→20:07)
[2019-07-29] MEDS: PHENOBARBITAL 32.4 MG TABLET GT SCH ×2 (09:04→20:07)
[2019-07-29] MEDS: ACIDOPHILUS/BULGARICUS CHEW TAB GT SCH ×2 (09:04→20:07)
[2019-07-29] MEDS: VITAMINS A AND D OINT TP SCH ×2 (09:05→20:08)
[2019-07-29] MEDS: CHLORHEXIDINE GLUCONATE 4% TOP SOL 118 ML TP SCH ×2 (09:05)
[2019-07-29] MEDS: COD LIVER OIL/ZINC OXIDE OINT 113 GM TUBE TP SCH ×2 (09:05→20:08)
--- NOTE | 2019-07-29 14:20 | NUR ---
Pharmacy Update from Today's 07/29/19 IDT Meeting: VS: Temp 98 BP 100/72 HR 86 LABS: (from 04/28/19, no new labs) Wbc 4.3 H/H 14/8/44.1 Plt 185 Na 140 K 4.3 Cl 103 CO2 31 BUN/SCr 11/0.3 BS 96 Ca 9.0 A1C 5.1 MEDICATION USE REVIEWED: > Pt on Phenobarbital 64.8mg BID. Last level on 03/12/19 was 36.4 (15-39) > Pt on Valproic acid 1000mg qhs and 500mg qam and 1400. Last level on 03/12/19 was 45 (50-100). Although valcoid acid level slightly low, MD elected continuation with no change in current dose as has been stable on current dose for prolonged period, no reported seizure activity in past month > On Lovenox 40mg SQ daily for DVT Prophylaxis started 01/08. Latest plt 185 > PRN MED USAGE: (Jun) Tylenol for pain used x0 Tylenol for temp used x0 Thorazine 25mg PRN hiccups x0 Bisacodyl supp used x0 NEW ORDERS NOTED: > NA Pt was reviewed and discussed in depth, with no medication issues noted per team. Remains stable, however with dermatology consult pending d/t chronic bouts of folliculitis usually requiring treatment. No further recs per rx, will continue to follow
--- NOTE | 2019-07-29 14:43 | NUR ---
INTERDISCIPLINARY PLAN OF CARE CONFERENCE was held today. Patient's mother was unable to attend the meeting. Dr. Bowser and the Interdisciplinary Team reviewed the current plan of care in detail. RN reported on patient's medical condition, and stated that there is a new dermatology consultation order. See RN IDT conference notes. See also all other disciplines IDT notes and physician's progress notes for additional details.
--- NOTE | 2019-07-29 15:55 | NUR ---
Dermatology consultation order faxed to Dr. Szymanski at [phone] (tel # [phone]). party plan sales unit sales leaderLUCAS parrish.
[2019-07-29 19:59] VITALS: BP 105/74
[2019-07-29] MEDS: CHOLECALCIFEROL 1,000 UNIT TABLET GT SCH (20:07)
[2019-07-29] MEDS: OMEGA-3 FATTY ACIDS/FISH OIL CAPSULE GT SCH (20:07)
[2019-07-29] MEDS: BENZOYL PEROXIDE 10% GEL 60 GM TUBE TP SCH (20:08)
[2019-07-29] MEDS: ENOXAPARIN SODIUM 40 MG/0.4 ML DISP.SYRIN SQ SCH (21:00)
[2019-07-30] MEDS: IPRATROPIUM BROMIDE 0.5 MG/2.5 ML NEBU NEB SCH ×4 (00:45→19:03)
[2019-07-30] MEDS: ALBUTEROL SULFATE 1.25 MG/3 ML NEBU NEB SCH ×4 (00:45→19:03)
[2019-07-30] MEDS: VALPROIC ACID 250 MG/5 ML LIQUID UDC GT SCH ×3 (05:03→21:58)
[2019-07-30] MEDS: PANTOPRAZOLE ORAL SUSPENSION 40 MG SUSPDR.PKT GT SCH (05:04)
[2019-07-30 08:00] VITALS: BP 99/61
[2019-07-30] MEDS: HYDROGEN PEROXIDE 3% 118 ML BOTTLE TP SCH ×2 (08:06→20:53)
[2019-07-30] MEDS: VITAMINS A AND D OINT TP SCH ×2 (08:36→21:58)
[2019-07-30] MEDS: CHLORHEXIDINE GLUCONATE 4% TOP SOL 118 ML TP SCH ×2 (08:36)
[2019-07-30] MEDS: PHENOBARBITAL 32.4 MG TABLET GT SCH ×2 (08:36→21:00)
[2019-07-30] MEDS: NUTRISOURCE FIBER 4 GM PACKET GT SCH (08:36)
[2019-07-30] MEDS: BACLOFEN 20 MG TABLET GT SCH ×3 (08:36→21:56)
[2019-07-30] MEDS: DOCUSATE SODIUM 100 MG/10 ML LIQUID UDC GT SCH (08:36)
[2019-07-30] MEDS: POLYVINYL ALCOHOL OPHT DROPS 15 ML BOTTLE EACHEYE SCH ×4 (08:36→21:53)
[2019-07-30] MEDS: ACIDOPHILUS/BULGARICUS CHEW TAB GT SCH ×2 (08:36→21:53)
[2019-07-30] MEDS: COD LIVER OIL/ZINC OXIDE OINT 113 GM TUBE TP SCH ×2 (08:36→21:58)
[2019-07-30] MEDS: PROTEIN SUPPLEMENT (PROSTAT) 30 ML LIQUID GT SCH ×2 (08:36→21:56)
[2019-07-30] MEDS: GEMFIBROZIL 600 MG TABLET GT SCH ×2 (08:36→21:57)
[2019-07-30] MEDS ORDERED: PHENOBARBITAL 32.4 MG TABLET PO ONE ×4 (09:00→22:00)
--- NOTE | 2019-07-30 14:30 | NUR ---
Seen and examined by Dr Szymanski senior materials planner with new orders noted,Pt's mother Aura aware.
[2019-07-30 20:02] VITALS: BP 107/66
[2019-07-30] MEDS: OMEGA-3 FATTY ACIDS/FISH OIL CAPSULE GT SCH (21:53)
[2019-07-30] MEDS: CHOLECALCIFEROL 1,000 UNIT TABLET GT SCH (21:57)
[2019-07-30] MEDS: DOXYCYCLINE HYCLATE 100 MG TABLET GT SCH (21:57)
[2019-07-30] MEDS: ENOXAPARIN SODIUM 40 MG/0.4 ML DISP.SYRIN SQ SCH (22:03)
[2019-07-31] MEDS: IPRATROPIUM BROMIDE 0.5 MG/2.5 ML NEBU NEB SCH ×4 (00:42→19:48)
[2019-07-31] MEDS: ALBUTEROL SULFATE 1.25 MG/3 ML NEBU NEB SCH ×4 (00:43→19:48)
[2019-07-31] MEDS: VALPROIC ACID 250 MG/5 ML LIQUID UDC GT SCH ×3 (05:05→21:32)
[2019-07-31] MEDS: PANTOPRAZOLE ORAL SUSPENSION 40 MG SUSPDR.PKT GT SCH (05:05)
[2019-07-31] MEDS: JEVITY 1.2 1000 ML LIQUID GT PRN (05:28)
--- NOTE | 2019-07-31 06:47 | NUR ---
started on doxycycline for folliculitis, no adverse reaction noted, afebrile, no respiratory distress noted.
[2019-07-31 08:00] VITALS: BP 133/90
[2019-07-31] MEDS: HYDROGEN PEROXIDE 3% 118 ML BOTTLE TP SCH ×2 (08:15→21:33)
[2019-07-31] MEDS: POLYVINYL ALCOHOL OPHT DROPS 15 ML BOTTLE EACHEYE SCH ×4 (08:57→20:18)
[2019-07-31] MEDS: DOCUSATE SODIUM 100 MG/10 ML LIQUID UDC GT SCH (08:57)
[2019-07-31] MEDS: PHENOBARBITAL 32.4 MG TABLET GT SCH ×2 (08:58→20:18)
[2019-07-31] MEDS: ACIDOPHILUS/BULGARICUS CHEW TAB GT SCH ×2 (08:58→20:18)
[2019-07-31] MEDS: GEMFIBROZIL 600 MG TABLET GT SCH ×2 (08:58→20:18)
[2019-07-31] MEDS: NUTRISOURCE FIBER 4 GM PACKET GT SCH (08:58)
[2019-07-31] MEDS: BACLOFEN 20 MG TABLET GT SCH ×3 (08:58→20:18)
[2019-07-31] MEDS: PROTEIN SUPPLEMENT (PROSTAT) 30 ML LIQUID GT SCH ×2 (08:59→20:18)
[2019-07-31] MEDS: DOXYCYCLINE HYCLATE 100 MG TABLET GT SCH ×2 (08:59→20:18)
[2019-07-31] MEDS ORDERED: PHENOBARBITAL 32.4 MG TABLET PO ONE ×4 (09:00→21:00)
[2019-07-31] MEDS: CLINDAMYCIN TP SCH ×2 (09:00→16:35)
[2019-07-31] MEDS: COD LIVER OIL/ZINC OXIDE OINT 113 GM TUBE TP SCH ×2 (09:01→20:18)
[2019-07-31] MEDS: VITAMINS A AND D OINT TP SCH ×2 (09:01→20:18)
[2019-07-31] MEDS: CHLORHEXIDINE GLUCONATE 4% TOP SOL 118 ML TP SCH ×2 (09:01)
[2019-07-31] MEDS: KETOCONAZOLE 2% SHAMPOO 120 ML BOTTLE TP SCH (20:18)
[2019-07-31] MEDS: OMEGA-3 FATTY ACIDS/FISH OIL CAPSULE GT SCH (20:18)
[2019-07-31] MEDS: CHOLECALCIFEROL 1,000 UNIT TABLET GT SCH (20:18)
[2019-07-31] MEDS: ENOXAPARIN SODIUM 40 MG/0.4 ML DISP.SYRIN SQ SCH (20:19)
[2019-07-31 20:21] VITALS: BP 102/67
[2019-08-01] MEDS: JEVITY 1.2 1000 ML LIQUID GT PRN (01:09)
[2019-08-01] MEDS: ALBUTEROL SULFATE 1.25 MG/3 ML NEBU NEB SCH ×4 (02:04→19:23)
[2019-08-01] MEDS: IPRATROPIUM BROMIDE 0.5 MG/2.5 ML NEBU NEB SCH ×4 (02:04→19:23)
[2019-08-01] MEDS: PANTOPRAZOLE ORAL SUSPENSION 40 MG SUSPDR.PKT GT SCH (05:02)
[2019-08-01] MEDS: VALPROIC ACID 250 MG/5 ML LIQUID UDC GT SCH ×3 (05:02→21:29)
--- NOTE | 2019-08-01 06:16 | NUR ---
continue on doxycycline 100mg gt for folliculitis and clindamycin 1% topical rash on the back of neck, no adverse reaction noted,afebrile, no respiratory distress noted.
[2019-08-01] MEDS: POLYVINYL ALCOHOL OPHT DROPS 15 ML BOTTLE EACHEYE SCH ×4 (08:47→21:28)
[2019-08-01] MEDS: DOCUSATE SODIUM 100 MG/10 ML LIQUID UDC GT SCH (08:47)
[2019-08-01] MEDS: BACLOFEN 20 MG TABLET GT SCH ×3 (08:48→21:28)
[2019-08-01] MEDS: ACIDOPHILUS/BULGARICUS CHEW TAB GT SCH ×2 (08:48→21:28)
[2019-08-01] MEDS: GEMFIBROZIL 600 MG TABLET GT SCH ×2 (08:48→21:28)
[2019-08-01] MEDS: NUTRISOURCE FIBER 4 GM PACKET GT SCH (08:51)
[2019-08-01] MEDS: PROTEIN SUPPLEMENT (PROSTAT) 30 ML LIQUID GT SCH ×2 (08:52→21:28)
[2019-08-01] MEDS: DOXYCYCLINE HYCLATE 100 MG TABLET GT SCH ×2 (08:52→21:28)
[2019-08-01] MEDS: PHENOBARBITAL 32.4 MG TABLET GT SCH ×2 (08:52→21:28)
[2019-08-01] MEDS: CHLORHEXIDINE GLUCONATE 4% TOP SOL 118 ML TP SCH ×2 (08:53)
[2019-08-01] MEDS: VITAMINS A AND D OINT TP SCH ×2 (08:53→21:29)
[2019-08-01] MEDS: COD LIVER OIL/ZINC OXIDE OINT 113 GM TUBE TOP SCH ×2 (08:53→21:29)
[2019-08-01] MEDS: COD LIVER OIL/ZINC OXIDE OINT 113 GM TUBE TP SCH ×2 (08:53→21:29)
[2019-08-01] MEDS: CLINDAMYCIN TP SCH ×2 (08:53→17:36)
[2019-08-01] MEDS ORDERED: PHENOBARBITAL 32.4 MG TABLET PO ONE ×2 (09:00)
[2019-08-01] MEDS: HYDROGEN PEROXIDE 3% 118 ML BOTTLE TP SCH ×2 (09:05→21:00)
[2019-08-01 20:54] VITALS: BP 115/74
[2019-08-01] MEDS: OMEGA-3 FATTY ACIDS/FISH OIL CAPSULE GT SCH (21:28)
[2019-08-01] MEDS: CHOLECALCIFEROL 1,000 UNIT TABLET GT SCH (21:28)
[2019-08-01] MEDS: ENOXAPARIN SODIUM 40 MG/0.4 ML DISP.SYRIN SQ SCH (21:29)
[2019-08-02] MEDS: JEVITY 1.2 1000 ML LIQUID GT PRN ×2 (00:20→22:01)
[2019-08-02] MEDS: IPRATROPIUM BROMIDE 0.5 MG/2.5 ML NEBU NEB SCH ×4 (01:00→19:11)
[2019-08-02] MEDS: ALBUTEROL SULFATE 1.25 MG/3 ML NEBU NEB SCH ×4 (01:00→19:11)
[2019-08-02] MEDS: VALPROIC ACID 250 MG/5 ML LIQUID UDC GT SCH ×3 (05:57→22:01)
[2019-08-02] MEDS: PANTOPRAZOLE ORAL SUSPENSION 40 MG SUSPDR.PKT GT SCH (05:58)
[2019-08-02] MEDS: POLYVINYL ALCOHOL OPHT DROPS 15 ML BOTTLE EACHEYE SCH ×4 (08:28→20:41)
[2019-08-02] MEDS: DOCUSATE SODIUM 100 MG/10 ML LIQUID UDC GT SCH (08:28)
[2019-08-02 08:30] VITALS: BP 110/63
[2019-08-02] MEDS: ACIDOPHILUS/BULGARICUS CHEW TAB GT SCH ×2 (08:30→20:42)
[2019-08-02] MEDS: DOXYCYCLINE HYCLATE 100 MG TABLET GT SCH ×2 (08:31→20:46)
[2019-08-02] MEDS: COD LIVER OIL/ZINC OXIDE OINT 113 GM TUBE TP SCH ×2 (08:31→20:46)
[2019-08-02] MEDS: PROTEIN SUPPLEMENT (PROSTAT) 30 ML LIQUID GT SCH ×2 (08:31→20:45)
[2019-08-02] MEDS: CLINDAMYCIN TP SCH ×2 (08:31→16:46)
[2019-08-02] MEDS: CHLORHEXIDINE GLUCONATE 4% TOP SOL 118 ML TP SCH ×2 (08:31)
[2019-08-02] MEDS: COD LIVER OIL/ZINC OXIDE OINT 113 GM TUBE TOP SCH ×2 (08:31→20:46)
[2019-08-02] MEDS: PHENOBARBITAL 32.4 MG TABLET GT SCH ×2 (08:31→20:45)
[2019-08-02] MEDS: NUTRISOURCE FIBER 4 GM PACKET GT SCH (08:31)
[2019-08-02] MEDS: BACLOFEN 20 MG TABLET GT SCH ×3 (08:31→20:45)
[2019-08-02] MEDS: VITAMINS A AND D OINT TP SCH ×2 (08:31→20:46)
[2019-08-02] MEDS: GEMFIBROZIL 600 MG TABLET GT SCH ×2 (08:31→20:45)
[2019-08-02] MEDS: HYDROGEN PEROXIDE 3% 118 ML BOTTLE TP SCH ×2 (09:00→21:00)
[2019-08-02 19:56] VITALS: BP 121/77
[2019-08-02] MEDS: OMEGA-3 FATTY ACIDS/FISH OIL CAPSULE GT SCH (20:42)
[2019-08-02] MEDS: CHOLECALCIFEROL 1,000 UNIT TABLET GT SCH (20:46)
[2019-08-02] MEDS: ENOXAPARIN SODIUM 40 MG/0.4 ML DISP.SYRIN SQ SCH (21:01)
[2019-08-03] MEDS ORDERED: OXYCODONE/APAP 5-325 MG TABLET ONE (01:31)
[2019-08-03] MEDS: IPRATROPIUM BROMIDE 0.5 MG/2.5 ML NEBU NEB SCH ×4 (01:44→19:16)
[2019-08-03] MEDS: ALBUTEROL SULFATE 1.25 MG/3 ML NEBU NEB SCH ×4 (01:44→19:16)
[2019-08-03] MEDS: PANTOPRAZOLE ORAL SUSPENSION 40 MG SUSPDR.PKT GT SCH (05:27)
[2019-08-03] MEDS: VALPROIC ACID 250 MG/5 ML LIQUID UDC GT SCH ×3 (05:27→21:15)
[2019-08-03 08:00] VITALS: BP 102/75
[2019-08-03] MEDS: HYDROGEN PEROXIDE 3% 118 ML BOTTLE TP SCH ×2 (08:00→20:49)
[2019-08-03] MEDS: PHENOBARBITAL 32.4 MG TABLET GT SCH ×2 (08:30→21:15)
[2019-08-03] MEDS: PROTEIN SUPPLEMENT (PROSTAT) 30 ML LIQUID GT SCH ×2 (08:30→21:15)
[2019-08-03] MEDS: COD LIVER OIL/ZINC OXIDE OINT 113 GM TUBE TOP SCH ×2 (08:30→21:15)
[2019-08-03] MEDS: ACIDOPHILUS/BULGARICUS CHEW TAB GT SCH ×2 (08:30→21:14)
[2019-08-03] MEDS: BACLOFEN 20 MG TABLET GT SCH ×3 (08:30→21:14)
[2019-08-03] MEDS: NUTRISOURCE FIBER 4 GM PACKET GT SCH (08:30)
[2019-08-03] MEDS: DOCUSATE SODIUM 100 MG/10 ML LIQUID UDC GT SCH (08:30)
[2019-08-03] MEDS: DOXYCYCLINE HYCLATE 100 MG TABLET GT SCH ×2 (08:30→21:15)
[2019-08-03] MEDS: GEMFIBROZIL 600 MG TABLET GT SCH ×2 (08:30→21:15)
[2019-08-03] MEDS: POLYVINYL ALCOHOL OPHT DROPS 15 ML BOTTLE EACHEYE SCH ×4 (08:30→21:14)
[2019-08-03] MEDS: VITAMINS A AND D OINT TP SCH ×2 (08:31→21:15)
[2019-08-03] MEDS: CHLORHEXIDINE GLUCONATE 4% TOP SOL 118 ML TP SCH ×2 (08:31)
[2019-08-03] MEDS: CLINDAMYCIN TP SCH ×2 (08:31→16:41)
[2019-08-03] MEDS: COD LIVER OIL/ZINC OXIDE OINT 113 GM TUBE TP SCH ×2 (08:31→21:15)
[2019-08-03 19:38] VITALS: BP 101/75
[2019-08-03] MEDS: OMEGA-3 FATTY ACIDS/FISH OIL CAPSULE GT SCH (21:14)
[2019-08-03] MEDS: CHOLECALCIFEROL 1,000 UNIT TABLET GT SCH (21:15)
[2019-08-03] MEDS: ENOXAPARIN SODIUM 40 MG/0.4 ML DISP.SYRIN SQ SCH (21:58)
[2019-08-04] MEDS: IPRATROPIUM BROMIDE 0.5 MG/2.5 ML NEBU NEB SCH ×4 (01:47→19:36)
[2019-08-04] MEDS: ALBUTEROL SULFATE 1.25 MG/3 ML NEBU NEB SCH ×4 (01:47→19:36)
[2019-08-04] MEDS: VALPROIC ACID 250 MG/5 ML LIQUID UDC GT SCH ×3 (06:12→22:30)
[2019-08-04] MEDS: PANTOPRAZOLE ORAL SUSPENSION 40 MG SUSPDR.PKT GT SCH (06:12)
[2019-08-04 08:00] VITALS: BP 109/81
[2019-08-04] MEDS: ACIDOPHILUS/BULGARICUS CHEW TAB GT SCH ×2 (08:26→21:00)
[2019-08-04] MEDS: DOCUSATE SODIUM 100 MG/10 ML LIQUID UDC GT SCH (08:26)
[2019-08-04] MEDS: POLYVINYL ALCOHOL OPHT DROPS 15 ML BOTTLE EACHEYE SCH ×4 (08:26→21:00)
[2019-08-04] MEDS: BACLOFEN 20 MG TABLET GT SCH ×3 (08:27→21:00)
[2019-08-04] MEDS: GEMFIBROZIL 600 MG TABLET GT SCH ×2 (08:32→21:00)
[2019-08-04] MEDS: NUTRISOURCE FIBER 4 GM PACKET GT SCH (08:32)
[2019-08-04] MEDS: PROTEIN SUPPLEMENT (PROSTAT) 30 ML LIQUID GT SCH ×2 (08:33→21:00)
[2019-08-04] MEDS: PHENOBARBITAL 32.4 MG TABLET GT SCH ×2 (08:33→21:00)
[2019-08-04] MEDS: DOXYCYCLINE HYCLATE 100 MG TABLET GT SCH ×2 (08:34→21:00)
[2019-08-04] MEDS: COD LIVER OIL/ZINC OXIDE OINT 113 GM TUBE TP SCH ×2 (08:35→21:00)
[2019-08-04] MEDS: CLINDAMYCIN TP SCH ×2 (08:35→17:14)
[2019-08-04] MEDS: COD LIVER OIL/ZINC OXIDE OINT 113 GM TUBE TOP SCH ×2 (08:35→21:00)
[2019-08-04] MEDS: CHLORHEXIDINE GLUCONATE 4% TOP SOL 118 ML TP SCH ×2 (08:36)
[2019-08-04] MEDS: VITAMINS A AND D OINT TP SCH ×2 (08:36→21:00)
[2019-08-04] MEDS ORDERED: PHENOBARBITAL 32.4 MG TABLET PO ONE ×4 (09:00→21:00)
[2019-08-04] MEDS: HYDROGEN PEROXIDE 3% 118 ML BOTTLE TP SCH ×2 (09:58→21:08)
--- NOTE | 2019-08-04 11:53 | NUR ---
PT. WAS SEEN AND EXAMINED BY YOLANDA Grider AND WITH NEW ORDERS CARRIED OUT D/T INCREASED URINE SEDIMENTS VISIBLE IN DIAPER.
[2019-08-04 14:56] LABS: CARBON DIOXIDE 33 mmol/L (21-32); CHLORIDE 101 mmol/L (98-107); CREATININE 0.3 mg/dL (0.6-1.3); GLUCOSE 116 mg/dL (74-106); POTASSIUM 4.1 mmol/L (3.5-5.1); UREA NITROGEN, BLOOD 20 mg/dL (7-18)
[2019-08-04 15:06] LABS: BASOPHILS % (AUTO) 0.4 % (0.0-2.0); EOSINOPHILS # (AUTO) 0.1 K/uL (0.0-0.7); EOSINOPHILS % (AUTO) 1.4 % (0.0-7.0); HEMOGLOBIN 14.7 g/dL (12.5-16.3); LYMPHOCYTES # (AUTO) 1.2 K/uL (20.0-40.0); LYMPHOCYTES % (AUTO) 20.3 % (20.5-51.5); MEAN CORPUSCULAR HEMOGLOBIN 32.4 uug (23.8-33.4); MEAN CORPUSCULAR HGB CONC 34 g/dL (32.5-36.3); MEAN CORPUSCULAR VOLUME 94.5 fL (73.0-96.2); MONOCYTES # (AUTO) 0.6 K/uL (2.0-10.0); MONOCYTES % (AUTO) 9.7 % (0.0-11.0); NEUTROPHILS % (AUTO) 68.2 % (38.5-71.5); PLATELET COUNT (AUTO) 176 K/uL (152-348); RED BLOOD CELL COUNT(AUTO) 4.55 MIL/uL (4.06-5.63); WHITE BLOOD COUNT (AUTO) 5.9 K/uL (3.6-10.2)
--- NOTE | 2019-08-04 17:00 | NUR ---
YOLANDA Grider WAS AWARE OF LAB RESULTS AND OF PERSISTENT URINE SEDIMENTS WHITISH COLOR VISIBLE IN THE DIAPER AND HARD TO COLLECT URINE WITH STRAIGHT CATHETER DUE TO RESISTANCE AND CONDOM CATHETER NOT STAYING IN PLACE. YOLANDA LOPEZ WITH A NEW ORDER WILL BE CARRIED OUT FOR UROLOGY CONSULT.
[2019-08-04 19:59] VITALS: BP 101/70
[2019-08-04] MEDS: CHOLECALCIFEROL 1,000 UNIT TABLET GT SCH (21:00)
[2019-08-04] MEDS: OMEGA-3 FATTY ACIDS/FISH OIL CAPSULE GT SCH (21:00)
[2019-08-04] MEDS: ENOXAPARIN SODIUM 40 MG/0.4 ML DISP.SYRIN SQ SCH (21:00)
[2019-08-04] MEDS: KETOCONAZOLE 2% SHAMPOO 120 ML BOTTLE TP SCH (21:00)
[2019-08-05] MEDS: ALBUTEROL SULFATE 1.25 MG/3 ML NEBU NEB SCH ×4 (01:05→19:34)
[2019-08-05] MEDS: IPRATROPIUM BROMIDE 0.5 MG/2.5 ML NEBU NEB SCH ×4 (01:05→19:34)
[2019-08-05 06:11] LABS: *BILIRUBIN,URIN NEGATIVE (NEGATIVE); *CLARITY,URINE CLOUDY (CLEAR); *COLOR,URINE YELLOW (YELLOW); *KETONES,URINE NEGATIVE (NEGATIVE); *UROBILINOGEN,URINE 0.2 E.U./dl (NORMAL); LEUKOCYTE ESTERASE ,URINE 3+ (NEGATIVE); NITRITE, URINE POSITIVE (NEGATIVE); PH,URINE >=9.0 (5.0-8.0); UGLUCOSE NEGATIVE (NEGATIVE)
[2019-08-05 06:22] LABS: *BLOOD, URINE TRACE (NEGATIVE)
[2019-08-05] MEDS: VALPROIC ACID 250 MG/5 ML LIQUID UDC GT SCH ×3 (06:23→22:54)
[2019-08-05] MEDS: PANTOPRAZOLE ORAL SUSPENSION 40 MG SUSPDR.PKT GT SCH (06:23)
[2019-08-05 06:24] LABS: BACTERIA,URINE 3+ /HPF (NONE SEEN); RBC,URINE 0-3 /HPF (0-3); URINE AMORPHOUS PHOSPHATES MODERATE /HPF
[2019-08-05 08:00] VITALS: BP 117/79
[2019-08-05] MEDS: BACLOFEN 20 MG TABLET GT SCH ×3 (08:53→20:12)
[2019-08-05] MEDS: DOCUSATE SODIUM 100 MG/10 ML LIQUID UDC GT SCH (08:53)
[2019-08-05] MEDS: GEMFIBROZIL 600 MG TABLET GT SCH ×2 (08:53→20:13)
[2019-08-05] MEDS: ACIDOPHILUS/BULGARICUS CHEW TAB GT SCH ×2 (08:53→20:12)
[2019-08-05] MEDS: POLYVINYL ALCOHOL OPHT DROPS 15 ML BOTTLE EACHEYE SCH ×4 (08:53→20:11)
[2019-08-05] MEDS: NUTRISOURCE FIBER 4 GM PACKET GT SCH (08:57)
[2019-08-05] MEDS: DOXYCYCLINE HYCLATE 100 MG TABLET GT SCH ×2 (08:57→20:13)
[2019-08-05] MEDS: PROTEIN SUPPLEMENT (PROSTAT) 30 ML LIQUID GT SCH ×2 (08:57→20:13)
[2019-08-05] MEDS: COD LIVER OIL/ZINC OXIDE OINT 113 GM TUBE TOP SCH ×2 (08:58→20:14)
[2019-08-05] MEDS: CLINDAMYCIN TP SCH ×2 (08:58→16:23)
[2019-08-05] MEDS: CHLORHEXIDINE GLUCONATE 4% TOP SOL 118 ML TP SCH ×2 (08:59)
[2019-08-05] MEDS: VITAMINS A AND D OINT TP SCH ×2 (08:59→20:14)
[2019-08-05] MEDS: COD LIVER OIL/ZINC OXIDE OINT 113 GM TUBE TP SCH ×2 (08:59→20:14)
[2019-08-05] MEDS: HYDROGEN PEROXIDE 3% 118 ML BOTTLE TP SCH ×2 (09:00→20:40)
[2019-08-05] MEDS: PHENOBARBITAL 32.4 MG TABLET GT SCH ×2 (09:00→20:13)
[2019-08-05] MEDS ORDERED: PHENOBARBITAL 32.4 MG TABLET PO ONE ×4 (09:00→21:00)
[2019-08-05 19:34] VITALS: BP 112/73
[2019-08-05] MEDS: ENOXAPARIN SODIUM 40 MG/0.4 ML DISP.SYRIN SQ SCH (20:10)
[2019-08-05] MEDS: OMEGA-3 FATTY ACIDS/FISH OIL CAPSULE GT SCH (20:11)
[2019-08-05] MEDS: CHOLECALCIFEROL 1,000 UNIT TABLET GT SCH (20:14)
--- NOTE | 2019-08-05 21:30 | NUR ---
dr black waslela, seen pt, try to insert caude catheter with wire guided, after several attempt, inserted maguire catheter fr #16, small amount of bleeding noted,draining mucousy urine with few clotts, tolerated procedure well, dr black ordered urine culture from maguire catheter. Addendum: 08/06/19 at 0209 by JUN BAILON RN dr black inserted 12-ukrainian coude tipped catheter.
[2019-08-06] MEDS: ALBUTEROL SULFATE 1.25 MG/3 ML NEBU NEB SCH ×4 (00:51→19:07)
[2019-08-06] MEDS: IPRATROPIUM BROMIDE 0.5 MG/2.5 ML NEBU NEB SCH ×4 (00:51→19:07)
[2019-08-06] MEDS: JEVITY 1.2 1000 ML LIQUID GT PRN (00:52)
[2019-08-06] MEDS: PANTOPRAZOLE ORAL SUSPENSION 40 MG SUSPDR.PKT GT SCH (06:46)
[2019-08-06] MEDS: VALPROIC ACID 250 MG/5 ML LIQUID UDC GT SCH ×3 (06:46→22:08)
[2019-08-06] MEDS: POLYVINYL ALCOHOL OPHT DROPS 15 ML BOTTLE EACHEYE SCH ×4 (08:31→20:00)
[2019-08-06] MEDS: DOCUSATE SODIUM 100 MG/10 ML LIQUID UDC GT SCH (08:31)
[2019-08-06] MEDS: PHENOBARBITAL 32.4 MG TABLET GT SCH ×2 (08:31→20:01)
[2019-08-06] MEDS: ACIDOPHILUS/BULGARICUS CHEW TAB GT SCH ×2 (08:32→20:01)
[2019-08-06] MEDS: GEMFIBROZIL 600 MG TABLET GT SCH ×2 (08:32→20:01)
[2019-08-06] MEDS: PROTEIN SUPPLEMENT (PROSTAT) 30 ML LIQUID GT SCH ×2 (08:32→20:01)
[2019-08-06] MEDS: DOXYCYCLINE HYCLATE 100 MG TABLET GT SCH ×2 (08:32→20:01)
[2019-08-06] MEDS: BACLOFEN 20 MG TABLET GT SCH ×3 (08:32→20:01)
[2019-08-06] MEDS: NUTRISOURCE FIBER 4 GM PACKET GT SCH (08:32)
[2019-08-06] MEDS: COD LIVER OIL/ZINC OXIDE OINT 113 GM TUBE TP SCH ×2 (08:33→20:04)
[2019-08-06] MEDS: CLINDAMYCIN TP SCH ×2 (08:33→17:17)
[2019-08-06] MEDS: VITAMINS A AND D OINT TP SCH ×2 (08:33→20:04)
[2019-08-06] MEDS: CHLORHEXIDINE GLUCONATE 4% TOP SOL 118 ML TP SCH ×2 (08:33)
[2019-08-06] MEDS: COD LIVER OIL/ZINC OXIDE OINT 113 GM TUBE TOP SCH ×2 (08:33→20:04)
[2019-08-06] MEDS: HYDROGEN PEROXIDE 3% 118 ML BOTTLE TP SCH ×2 (09:00→21:32)
[2019-08-06] MEDS ORDERED: PHENOBARBITAL 32.4 MG TABLET PO ONE ×2 (09:00)
[2019-08-06 10:45] VITALS: BP 109/59
[2019-08-06 20:00] VITALS: BP 120/79
[2019-08-06] MEDS: OMEGA-3 FATTY ACIDS/FISH OIL CAPSULE GT SCH (20:01)
[2019-08-06] MEDS: CHOLECALCIFEROL 1,000 UNIT TABLET GT SCH (20:01)
[2019-08-06] MEDS: ENOXAPARIN SODIUM 40 MG/0.4 ML DISP.SYRIN SQ SCH (20:03)
[2019-08-07] MEDS: JEVITY 1.2 1000 ML LIQUID GT PRN (00:26)
[2019-08-07] MEDS: ALBUTEROL SULFATE 1.25 MG/3 ML NEBU NEB SCH ×4 (00:46→19:33)
[2019-08-07] MEDS: IPRATROPIUM BROMIDE 0.5 MG/2.5 ML NEBU NEB SCH ×4 (00:46→19:33)
[2019-08-07] MEDS: VALPROIC ACID 250 MG/5 ML LIQUID UDC GT SCH ×3 (05:52→22:00)
[2019-08-07] MEDS: PANTOPRAZOLE ORAL SUSPENSION 40 MG SUSPDR.PKT GT SCH (05:52)
[2019-08-07] MEDS: POLYVINYL ALCOHOL OPHT DROPS 15 ML BOTTLE EACHEYE SCH ×4 (08:36→20:08)
[2019-08-07] MEDS: DOCUSATE SODIUM 100 MG/10 ML LIQUID UDC GT SCH (08:36)
[2019-08-07] MEDS: ACIDOPHILUS/BULGARICUS CHEW TAB GT SCH ×2 (08:37→20:10)
[2019-08-07] MEDS: BACLOFEN 20 MG TABLET GT SCH ×3 (08:37→20:10)
[2019-08-07] MEDS: PROTEIN SUPPLEMENT (PROSTAT) 30 ML LIQUID GT SCH ×2 (08:38→20:14)
[2019-08-07] MEDS: NUTRISOURCE FIBER 4 GM PACKET GT SCH (08:38)
[2019-08-07] MEDS: GEMFIBROZIL 600 MG TABLET GT SCH ×2 (08:38→20:13)
[2019-08-07] MEDS: PHENOBARBITAL 32.4 MG TABLET GT SCH ×2 (08:38→20:13)
[2019-08-07] MEDS: COD LIVER OIL/ZINC OXIDE OINT 113 GM TUBE TOP SCH ×2 (08:39→20:15)
[2019-08-07] MEDS: DOXYCYCLINE HYCLATE 100 MG TABLET GT SCH ×2 (08:39→20:14)
[2019-08-07] MEDS: CHLORHEXIDINE GLUCONATE 4% TOP SOL 118 ML TP SCH ×2 (08:40)
[2019-08-07] MEDS: COD LIVER OIL/ZINC OXIDE OINT 113 GM TUBE TP SCH ×2 (08:40→20:15)
[2019-08-07] MEDS: VITAMINS A AND D OINT TP SCH ×2 (09:00→20:16)
[2019-08-07] MEDS: HYDROGEN PEROXIDE 3% 118 ML BOTTLE TP SCH ×2 (09:20→21:05)
[2019-08-07] MEDS: CLINDAMYCIN TP SCH ×2 (09:45→17:36)
[2019-08-07 10:44] VITALS: BP 94/65
[2019-08-07 10:45] VITALS: BP 111/58
[2019-08-07] MEDS ORDERED: CEFTRIAXONE 1 G in IV DEXTROSE 5% 50 ML IV SCH (12:45)
[2019-08-07] MEDS: CEFTRIAXONE 1 G in IV DEXTROSE 5% 50 ML IV SCH (14:30)
[2019-08-07 19:55] VITALS: BP 118/73
[2019-08-07] MEDS: OMEGA-3 FATTY ACIDS/FISH OIL CAPSULE GT SCH (20:08)
[2019-08-07] MEDS: CHOLECALCIFEROL 1,000 UNIT TABLET GT SCH (20:15)
[2019-08-07] MEDS: KETOCONAZOLE 2% SHAMPOO 120 ML BOTTLE TP SCH (20:16)
[2019-08-07] MEDS: ENOXAPARIN SODIUM 40 MG/0.4 ML DISP.SYRIN SQ SCH (20:20)
--- NOTE | 2019-08-07 22:30 | NUR ---
Afebrile, remains on Rocephin 1 Gram IV for UTI, no adverse reactions noted, fluids given as ordered, maguire catheter is intact and draining well to yellow urine, good jannet care rendered, kept clean and comfortable.
[2019-08-08] MEDS: IPRATROPIUM BROMIDE 0.5 MG/2.5 ML NEBU NEB SCH ×4 (01:15→20:24)
[2019-08-08] MEDS: ALBUTEROL SULFATE 1.25 MG/3 ML NEBU NEB SCH ×4 (01:15→20:24)
[2019-08-08] MEDS: JEVITY 1.2 1000 ML LIQUID GT PRN (03:15)
[2019-08-08] MEDS: PANTOPRAZOLE ORAL SUSPENSION 40 MG SUSPDR.PKT GT SCH (06:22)
[2019-08-08] MEDS: VALPROIC ACID 250 MG/5 ML LIQUID UDC GT SCH ×3 (06:22→21:11)
[2019-08-08] MEDS: GEMFIBROZIL 600 MG TABLET GT SCH ×2 (08:07→21:10)
[2019-08-08] MEDS: DOXYCYCLINE HYCLATE 100 MG TABLET GT SCH ×2 (08:07→21:10)
[2019-08-08] MEDS: POLYVINYL ALCOHOL OPHT DROPS 15 ML BOTTLE EACHEYE SCH ×4 (08:07→21:10)
[2019-08-08] MEDS: PROTEIN SUPPLEMENT (PROSTAT) 30 ML LIQUID GT SCH ×2 (08:07→21:10)
[2019-08-08] MEDS: COD LIVER OIL/ZINC OXIDE OINT 113 GM TUBE TOP SCH ×2 (08:07→21:11)
[2019-08-08] MEDS: ACIDOPHILUS/BULGARICUS CHEW TAB GT SCH ×2 (08:07→21:10)
[2019-08-08] MEDS: DOCUSATE SODIUM 100 MG/10 ML LIQUID UDC GT SCH (08:07)
[2019-08-08] MEDS: BACLOFEN 20 MG TABLET GT SCH ×3 (08:07→21:10)
[2019-08-08] MEDS: PHENOBARBITAL 32.4 MG TABLET GT SCH ×2 (08:07→21:10)
[2019-08-08] MEDS: NUTRISOURCE FIBER 4 GM PACKET GT SCH (08:07)
[2019-08-08] MEDS: CHLORHEXIDINE GLUCONATE 4% TOP SOL 118 ML TP SCH ×2 (08:08)
[2019-08-08] MEDS: VITAMINS A AND D OINT TP SCH ×2 (08:08→21:11)
[2019-08-08] MEDS: COD LIVER OIL/ZINC OXIDE OINT 113 GM TUBE TP SCH ×2 (08:08→21:11)
[2019-08-08] MEDS: CLINDAMYCIN TP SCH ×2 (08:08→16:09)
[2019-08-08] MEDS: HYDROGEN PEROXIDE 3% 118 ML BOTTLE TP SCH ×2 (09:00→20:24)
[2019-08-08 11:23] VITALS: BP 84/51
[2019-08-08] MEDS: CEFTRIAXONE 1 G in IV DEXTROSE 5% 50 ML IV SCH (13:31)
[2019-08-08 20:30] VITALS: BP 106/75
[2019-08-08] MEDS: CHOLECALCIFEROL 1,000 UNIT TABLET GT SCH (21:10)
[2019-08-08] MEDS: OMEGA-3 FATTY ACIDS/FISH OIL CAPSULE GT SCH (21:10)
[2019-08-08] MEDS: ENOXAPARIN SODIUM 40 MG/0.4 ML DISP.SYRIN SQ SCH (21:11)
--- NOTE | 2019-08-08 21:57 | NUR ---
Afebrile, trach intact and patent, breathing even and non- labored, no respiratory distress noted. still on Rocephin IV for UTI, no adverse reactions noted, fluids given as ordered, maguire catheter draining well to yellow urine, good jannet care rendered, kept clean and comfortable.
[2019-08-09] MEDS: JEVITY 1.2 1000 ML LIQUID GT PRN ×2 (00:21→22:00)
[2019-08-09] MEDS: IPRATROPIUM BROMIDE 0.5 MG/2.5 ML NEBU NEB SCH ×4 (01:46→19:08)
[2019-08-09] MEDS: ALBUTEROL SULFATE 1.25 MG/3 ML NEBU NEB SCH ×4 (01:46→19:08)
[2019-08-09] MEDS: PANTOPRAZOLE ORAL SUSPENSION 40 MG SUSPDR.PKT GT SCH (05:16)
[2019-08-09] MEDS: VALPROIC ACID 250 MG/5 ML LIQUID UDC GT SCH ×3 (05:16→21:39)
[2019-08-09 08:00] VITALS: BP 98/57
[2019-08-09] MEDS: POLYVINYL ALCOHOL OPHT DROPS 15 ML BOTTLE EACHEYE SCH ×4 (08:22→20:38)
[2019-08-09] MEDS: ACIDOPHILUS/BULGARICUS CHEW TAB GT SCH ×2 (08:22→20:38)
[2019-08-09] MEDS: DOCUSATE SODIUM 100 MG/10 ML LIQUID UDC GT SCH (08:22)
[2019-08-09] MEDS: PHENOBARBITAL 32.4 MG TABLET GT SCH ×2 (08:24→20:39)
[2019-08-09] MEDS: GEMFIBROZIL 600 MG TABLET GT SCH ×2 (08:24→20:38)
[2019-08-09] MEDS: BACLOFEN 20 MG TABLET GT SCH ×3 (08:24→20:38)
[2019-08-09] MEDS: PROTEIN SUPPLEMENT (PROSTAT) 30 ML LIQUID GT SCH ×2 (08:24→20:39)
[2019-08-09] MEDS: NUTRISOURCE FIBER 4 GM PACKET GT SCH (08:24)
[2019-08-09] MEDS: DOXYCYCLINE HYCLATE 100 MG TABLET GT SCH (08:24)
[2019-08-09] MEDS: COD LIVER OIL/ZINC OXIDE OINT 113 GM TUBE TOP SCH ×2 (08:25→20:40)
[2019-08-09] MEDS: COD LIVER OIL/ZINC OXIDE OINT 113 GM TUBE TP SCH ×2 (08:25→20:40)
[2019-08-09] MEDS: CHLORHEXIDINE GLUCONATE 4% TOP SOL 118 ML TP SCH ×2 (08:27)
[2019-08-09] MEDS: CLINDAMYCIN TP SCH ×2 (08:27→16:03)
[2019-08-09] MEDS: VITAMINS A AND D OINT TP SCH ×2 (08:27→20:40)
[2019-08-09] MEDS ORDERED: PHENOBARBITAL 32.4 MG TABLET PO ONE ×4 (09:00→21:00)
[2019-08-09] MEDS: HYDROGEN PEROXIDE 3% 118 ML BOTTLE TP SCH ×2 (09:00→21:32)
[2019-08-09] MEDS: CEFTRIAXONE 1 G in IV DEXTROSE 5% 50 ML IV SCH (14:34)
[2019-08-09 20:19] VITALS: BP 113/72
[2019-08-09] MEDS: OMEGA-3 FATTY ACIDS/FISH OIL CAPSULE GT SCH (20:38)
[2019-08-09] MEDS: CHOLECALCIFEROL 1,000 UNIT TABLET GT SCH (20:39)
[2019-08-09] MEDS: ENOXAPARIN SODIUM 40 MG/0.4 ML DISP.SYRIN SQ SCH (20:39)
--- NOTE | 2019-08-09 22:26 | NUR ---
Remains on Rocephin IV for UTI, no adverse reaction noted, fluids given as ordered maguire catheter draining well with yellow urine, no hematuria noted, kept clean and comfortable.
[2019-08-10] MEDS: ALBUTEROL SULFATE 1.25 MG/3 ML NEBU NEB SCH ×4 (00:50→19:04)
[2019-08-10] MEDS: IPRATROPIUM BROMIDE 0.5 MG/2.5 ML NEBU NEB SCH ×4 (00:50→19:04)
[2019-08-10] MEDS: VALPROIC ACID 250 MG/5 ML LIQUID UDC GT SCH ×3 (05:46→22:31)
[2019-08-10] MEDS: PANTOPRAZOLE ORAL SUSPENSION 40 MG SUSPDR.PKT GT SCH (05:46)
[2019-08-10 08:01] VITALS: BP 108/68
[2019-08-10] MEDS: PROTEIN SUPPLEMENT (PROSTAT) 30 ML LIQUID GT SCH ×2 (08:44→20:40)
[2019-08-10] MEDS: DOCUSATE SODIUM 100 MG/10 ML LIQUID UDC GT SCH (08:44)
[2019-08-10] MEDS: COD LIVER OIL/ZINC OXIDE OINT 113 GM TUBE TOP SCH ×2 (08:44→21:00)
[2019-08-10] MEDS: NUTRISOURCE FIBER 4 GM PACKET GT SCH (08:44)
[2019-08-10] MEDS: CHLORHEXIDINE GLUCONATE 4% TOP SOL 118 ML TP SCH ×2 (08:44)
[2019-08-10] MEDS: BACLOFEN 20 MG TABLET GT SCH ×3 (08:44→20:40)
[2019-08-10] MEDS: PHENOBARBITAL 32.4 MG TABLET GT SCH ×2 (08:44→20:40)
[2019-08-10] MEDS: GEMFIBROZIL 600 MG TABLET GT SCH ×2 (08:44→20:40)
[2019-08-10] MEDS: ACIDOPHILUS/BULGARICUS CHEW TAB GT SCH ×2 (08:44→20:39)
[2019-08-10] MEDS: VITAMINS A AND D OINT TP SCH ×2 (08:44→21:00)
[2019-08-10] MEDS: POLYVINYL ALCOHOL OPHT DROPS 15 ML BOTTLE EACHEYE SCH ×4 (08:44→20:39)
[2019-08-10] MEDS: COD LIVER OIL/ZINC OXIDE OINT 113 GM TUBE TP SCH ×2 (08:44→21:00)
[2019-08-10] MEDS: HYDROGEN PEROXIDE 3% 118 ML BOTTLE TP SCH ×2 (09:00→21:00)
[2019-08-10] MEDS ORDERED: PHENOBARBITAL 32.4 MG TABLET PO ONE ×4 (09:00→21:00)
--- NOTE | 2019-08-10 13:00 | NUR ---
continue on Ivatb for UTI,with no adverse reaction noted,iv site intact,no redness noted.
[2019-08-10] MEDS: CEFTRIAXONE 1 G in IV DEXTROSE 5% 50 ML IV SCH (14:23)
[2019-08-10 20:19] VITALS: BP 111/67
[2019-08-10] MEDS: OMEGA-3 FATTY ACIDS/FISH OIL CAPSULE GT SCH (20:39)
[2019-08-10] MEDS: CHOLECALCIFEROL 1,000 UNIT TABLET GT SCH (20:40)
[2019-08-10] MEDS: JEVITY 1.2 1000 ML LIQUID GT PRN (20:40)
[2019-08-10] MEDS: ENOXAPARIN SODIUM 40 MG/0.4 ML DISP.SYRIN SQ SCH (21:00)
[2019-08-11] MEDS: ALBUTEROL SULFATE 1.25 MG/3 ML NEBU NEB SCH ×4 (01:20→19:41)
[2019-08-11] MEDS: IPRATROPIUM BROMIDE 0.5 MG/2.5 ML NEBU NEB SCH ×4 (01:20→19:41)
[2019-08-11] MEDS: VALPROIC ACID 250 MG/5 ML LIQUID UDC GT SCH ×3 (05:06→21:18)
[2019-08-11] MEDS: PANTOPRAZOLE ORAL SUSPENSION 40 MG SUSPDR.PKT GT SCH (05:06)
--- NOTE | 2019-08-11 05:47 | NUR ---
Remains on Rocephin iv for uti,no adverse reaction noted,has f/c in place draining well yellow color urine,iv site intact,no redness noted.
[2019-08-11 08:01] VITALS: BP 120/88
[2019-08-11] MEDS: HYDROGEN PEROXIDE 3% 118 ML BOTTLE TP SCH ×2 (08:09→21:20)
[2019-08-11] MEDS: POLYVINYL ALCOHOL OPHT DROPS 15 ML BOTTLE EACHEYE SCH ×4 (08:27→21:16)
[2019-08-11] MEDS: DOCUSATE SODIUM 100 MG/10 ML LIQUID UDC GT SCH (08:27)
[2019-08-11] MEDS: ACIDOPHILUS/BULGARICUS CHEW TAB GT SCH ×2 (08:28→21:15)
[2019-08-11] MEDS: NUTRISOURCE FIBER 4 GM PACKET GT SCH (08:28)
[2019-08-11] MEDS: PROTEIN SUPPLEMENT (PROSTAT) 30 ML LIQUID GT SCH ×2 (08:28→21:17)
[2019-08-11] MEDS: GEMFIBROZIL 600 MG TABLET GT SCH ×2 (08:28→21:19)
[2019-08-11] MEDS: BACLOFEN 20 MG TABLET GT SCH ×3 (08:28→21:19)
[2019-08-11] MEDS: CHLORHEXIDINE GLUCONATE 4% TOP SOL 118 ML TP SCH ×2 (08:29)
[2019-08-11] MEDS: COD LIVER OIL/ZINC OXIDE OINT 113 GM TUBE TP SCH ×2 (08:29→21:20)
[2019-08-11] MEDS: COD LIVER OIL/ZINC OXIDE OINT 113 GM TUBE TOP SCH ×2 (08:29→21:20)
[2019-08-11] MEDS: VITAMINS A AND D OINT TP SCH ×2 (08:29→21:20)
[2019-08-11] MEDS ORDERED: PHENOBARBITAL 32.4 MG TABLET PO ONE ×4 (08:30→21:00)
[2019-08-11] MEDS: PHENOBARBITAL 32.4 MG TABLET GT SCH ×2 (08:30→21:17)
--- NOTE | 2019-08-11 12:34 | NUR ---
Seen by Trung Blackwood, new order carried to d/c ceftriaxone after today's dose.
[2019-08-11] MEDS: CEFTRIAXONE 1 G in IV DEXTROSE 5% 50 ML IV SCH (13:37)
[2019-08-11] MEDS: JEVITY 1.2 1000 ML LIQUID GT PRN (17:04)
[2019-08-11 21:10] VITALS: BP 129/66
[2019-08-11] MEDS: OMEGA-3 FATTY ACIDS/FISH OIL CAPSULE GT SCH (21:14)
[2019-08-11] MEDS: CHOLECALCIFEROL 1,000 UNIT TABLET GT SCH (21:17)
[2019-08-11] MEDS: KETOCONAZOLE 2% SHAMPOO 120 ML BOTTLE TP SCH (21:20)
[2019-08-11] MEDS: ENOXAPARIN SODIUM 40 MG/0.4 ML DISP.SYRIN SQ SCH (21:28)
[2019-08-12] MEDS: IPRATROPIUM BROMIDE 0.5 MG/2.5 ML NEBU NEB SCH ×4 (00:44→19:02)
[2019-08-12] MEDS: ALBUTEROL SULFATE 1.25 MG/3 ML NEBU NEB SCH ×4 (00:44→19:02)
[2019-08-12] MEDS: PANTOPRAZOLE ORAL SUSPENSION 40 MG SUSPDR.PKT GT SCH (05:15)
[2019-08-12] MEDS: VALPROIC ACID 250 MG/5 ML LIQUID UDC GT SCH ×3 (05:15→22:00)
[2019-08-12 08:01] VITALS: BP 94/62
[2019-08-12] MEDS: POLYVINYL ALCOHOL OPHT DROPS 15 ML BOTTLE EACHEYE SCH ×4 (08:56→21:00)
[2019-08-12] MEDS: DOCUSATE SODIUM 100 MG/10 ML LIQUID UDC GT SCH (08:56)
[2019-08-12] MEDS: ACIDOPHILUS/BULGARICUS CHEW TAB GT SCH ×2 (08:56→21:00)
[2019-08-12] MEDS: GEMFIBROZIL 600 MG TABLET GT SCH ×2 (08:56→21:00)
[2019-08-12] MEDS: NUTRISOURCE FIBER 4 GM PACKET GT SCH (08:56)
[2019-08-12] MEDS: BACLOFEN 20 MG TABLET GT SCH ×3 (08:56→21:00)
[2019-08-12] MEDS: PROTEIN SUPPLEMENT (PROSTAT) 30 ML LIQUID GT SCH ×2 (08:57→21:00)
[2019-08-12] MEDS: CHLORHEXIDINE GLUCONATE 4% TOP SOL 118 ML TP SCH ×2 (08:58→08:59)
[2019-08-12] MEDS: COD LIVER OIL/ZINC OXIDE OINT 113 GM TUBE TOP SCH ×2 (08:58→21:00)
[2019-08-12] MEDS: COD LIVER OIL/ZINC OXIDE OINT 113 GM TUBE TP SCH ×2 (08:58→21:00)
[2019-08-12] MEDS: VITAMINS A AND D OINT TP SCH ×2 (08:59→21:00)
[2019-08-12] MEDS ORDERED: PHENOBARBITAL 32.4 MG TABLET PO ONE ×4 (09:00→21:00)
[2019-08-12] MEDS: PHENOBARBITAL 32.4 MG TABLET GT SCH ×2 (09:00→21:00)
[2019-08-12] MEDS: HYDROGEN PEROXIDE 3% 118 ML BOTTLE TP SCH ×2 (09:43→21:09)
--- NOTE | 2019-08-12 16:10 | NUR ---
TOMY faxed the completed Work. Comp. Request for Authorization form to Kellie Alvarez, [employer], at [phone]. The authorization form is to request 1 foot box leg rest and 2 full support arm rest/troughs for patient's wheelchair. TOMY will wait to hear back from Kellie regarding authorization and for which DME company to contact for these items. Kellie's phone number is [phone].
[2019-08-12 20:18] VITALS: BP 98/52
[2019-08-12] MEDS: ENOXAPARIN SODIUM 40 MG/0.4 ML DISP.SYRIN SQ SCH (21:00)
[2019-08-12] MEDS: OMEGA-3 FATTY ACIDS/FISH OIL CAPSULE GT SCH (21:00)
[2019-08-12] MEDS: CHOLECALCIFEROL 1,000 UNIT TABLET GT SCH (21:00)
[2019-08-13] MEDS: IPRATROPIUM BROMIDE 0.5 MG/2.5 ML NEBU NEB SCH ×4 (01:02→19:30)
[2019-08-13] MEDS: ALBUTEROL SULFATE 1.25 MG/3 ML NEBU NEB SCH ×4 (01:02→19:30)
[2019-08-13] MEDS: PANTOPRAZOLE ORAL SUSPENSION 40 MG SUSPDR.PKT GT SCH (06:00)
[2019-08-13] MEDS: VALPROIC ACID 250 MG/5 ML LIQUID UDC GT SCH ×3 (06:00→22:39)
--- NOTE | 2019-08-13 06:00 | NUR ---
PT IS AWAKE AND IS IN NO DISTRESS. nO SEIZURE ACTIVITY NOTED.
[2019-08-13 08:02] VITALS: BP 95/62
--- NOTE | 2019-08-13 08:18 | NUR ---
addendum lOVONOX WAS ADMINISTERED ORDERED. CHARGE NURSE AWARE FDATA ENTRY ERROR.
[2019-08-13] MEDS: COD LIVER OIL/ZINC OXIDE OINT 113 GM TUBE TP SCH ×2 (08:46→20:45)
[2019-08-13] MEDS: GEMFIBROZIL 600 MG TABLET GT SCH ×2 (08:46→20:44)
[2019-08-13] MEDS: DOCUSATE SODIUM 100 MG/10 ML LIQUID UDC GT SCH (08:46)
[2019-08-13] MEDS: NUTRISOURCE FIBER 4 GM PACKET GT SCH (08:46)
[2019-08-13] MEDS: POLYVINYL ALCOHOL OPHT DROPS 15 ML BOTTLE EACHEYE SCH ×4 (08:46→20:39)
[2019-08-13] MEDS: PROTEIN SUPPLEMENT (PROSTAT) 30 ML LIQUID GT SCH ×2 (08:46→20:45)
[2019-08-13] MEDS: BACLOFEN 20 MG TABLET GT SCH ×3 (08:46→20:44)
[2019-08-13] MEDS: COD LIVER OIL/ZINC OXIDE OINT 113 GM TUBE TOP SCH ×2 (08:46→20:45)
[2019-08-13] MEDS: ACIDOPHILUS/BULGARICUS CHEW TAB GT SCH ×2 (08:46→20:40)
[2019-08-13] MEDS: CHLORHEXIDINE GLUCONATE 4% TOP SOL 118 ML TP SCH ×2 (08:47)
[2019-08-13] MEDS: VITAMINS A AND D OINT TP SCH ×2 (08:47→20:45)
[2019-08-13] MEDS ORDERED: PHENOBARBITAL 32.4 MG TABLET PO ONE ×4 (09:00→21:00)
[2019-08-13] MEDS: HYDROGEN PEROXIDE 3% 118 ML BOTTLE TP SCH ×2 (09:00→21:41)
[2019-08-13] MEDS: PHENOBARBITAL 32.4 MG TABLET GT SCH ×2 (09:01→20:44)
[2019-08-13 20:05] VITALS: BP 120/75
[2019-08-13] MEDS: OMEGA-3 FATTY ACIDS/FISH OIL CAPSULE GT SCH (20:40)
[2019-08-13] MEDS: CHOLECALCIFEROL 1,000 UNIT TABLET GT SCH (20:45)
[2019-08-13] MEDS: ENOXAPARIN SODIUM 40 MG/0.4 ML DISP.SYRIN SQ SCH (20:48)
[2019-08-14] MEDS: ALBUTEROL SULFATE 1.25 MG/3 ML NEBU NEB SCH ×4 (00:45→19:39)
[2019-08-14] MEDS: IPRATROPIUM BROMIDE 0.5 MG/2.5 ML NEBU NEB SCH ×4 (00:45→19:39)
[2019-08-14] MEDS: VALPROIC ACID 250 MG/5 ML LIQUID UDC GT SCH ×3 (06:28→22:08)
[2019-08-14] MEDS: PANTOPRAZOLE ORAL SUSPENSION 40 MG SUSPDR.PKT GT SCH (06:28)
[2019-08-14 08:02] VITALS: BP 103/63
[2019-08-14] MEDS: PHENOBARBITAL 32.4 MG TABLET GT SCH ×2 (08:26→20:30)
[2019-08-14] MEDS: NUTRISOURCE FIBER 4 GM PACKET GT SCH (08:26)
[2019-08-14] MEDS: DOCUSATE SODIUM 100 MG/10 ML LIQUID UDC GT SCH (08:26)
[2019-08-14] MEDS: BACLOFEN 20 MG TABLET GT SCH ×3 (08:26→20:29)
[2019-08-14] MEDS: GEMFIBROZIL 600 MG TABLET GT SCH ×2 (08:26→20:29)
[2019-08-14] MEDS: PROTEIN SUPPLEMENT (PROSTAT) 30 ML LIQUID GT SCH ×2 (08:26→20:30)
[2019-08-14] MEDS: ACIDOPHILUS/BULGARICUS CHEW TAB GT SCH ×2 (08:26→20:29)
[2019-08-14] MEDS: POLYVINYL ALCOHOL OPHT DROPS 15 ML BOTTLE EACHEYE SCH ×4 (08:26→20:28)
[2019-08-14] MEDS: COD LIVER OIL/ZINC OXIDE OINT 113 GM TUBE TOP SCH ×2 (08:27→20:31)
[2019-08-14] MEDS: VITAMINS A AND D OINT TP SCH ×2 (08:27→20:31)
[2019-08-14] MEDS: COD LIVER OIL/ZINC OXIDE OINT 113 GM TUBE TP SCH ×2 (08:27→20:31)
[2019-08-14] MEDS: CHLORHEXIDINE GLUCONATE 4% TOP SOL 118 ML TP SCH ×2 (08:27)
[2019-08-14] MEDS: HYDROGEN PEROXIDE 3% 118 ML BOTTLE TP SCH ×2 (09:00→21:51)
[2019-08-14] MEDS ORDERED: PHENOBARBITAL 32.4 MG TABLET PO ONE ×4 (09:00→21:00)
--- NOTE | 2019-08-14 14:00 | NUR ---
SEEN ANDXAMINED BY DR. RODARTE AND WITH NNO.
--- NOTE | 2019-08-14 16:34 | NUR ---
SW received an authorization back from Work. Comp. (request form was faxed by this SW on 08/12). Authorization includes 1 foot box leg rest and 1 full support arm rest/trough (claim # [id number]). Request was submitted for 2 full support arm rest/trough. TOMY called patient's insurance specialist Kellie Scruggs [phone] to clarify about the 2nd full support arm rest/trough. TOMY was not able to connect with Kellie, and SW left a voicemail message asking for a call back. Per instructions on authorization form, TOMY called [employer] [phone] to inquire about which DME company SW can contact in order to put in the order for the items requested. TOMY spoke with Lesli, who instructed SW to contact [employer] [phone], since they are the ones who manage DME deliveries. SW to follow-up with [employer].
--- NOTE | 2019-08-14 16:43 | NUR ---
Within 5 minutes of leaving a message for insurance service representative Kellie Scruggs, this SW received a call back from Kellie [phone]. SW clarified the quantity of the full support arm rest/trough listed on the authorization. Kellie stated that SW can proceed with ordered 2 arm rests, even though it states 1 on the authorization form. SW to follow-up with contacting [employer], and putting in the order for the authorized DME, per Kellie's instructions.
[2019-08-14 20:12] VITALS: BP 122/56
[2019-08-14] MEDS: OMEGA-3 FATTY ACIDS/FISH OIL CAPSULE GT SCH (20:28)
[2019-08-14] MEDS: CHOLECALCIFEROL 1,000 UNIT TABLET GT SCH (20:30)
[2019-08-14] MEDS: KETOCONAZOLE 2% SHAMPOO 120 ML BOTTLE TP SCH (20:31)
[2019-08-14] MEDS: ENOXAPARIN SODIUM 40 MG/0.4 ML DISP.SYRIN SQ SCH (20:39)
[2019-08-15] MEDS: IPRATROPIUM BROMIDE 0.5 MG/2.5 ML NEBU NEB SCH ×4 (01:44→19:35)
[2019-08-15] MEDS: ALBUTEROL SULFATE 1.25 MG/3 ML NEBU NEB SCH ×4 (01:44→19:35)
[2019-08-15] MEDS: JEVITY 1.2 1000 ML LIQUID GT PRN (05:00)
[2019-08-15] MEDS: PANTOPRAZOLE ORAL SUSPENSION 40 MG SUSPDR.PKT GT SCH (05:51)
[2019-08-15] MEDS: VALPROIC ACID 250 MG/5 ML LIQUID UDC GT SCH ×3 (05:51→22:46)
[2019-08-15 08:02] VITALS: BP 98/58
[2019-08-15] MEDS: DOCUSATE SODIUM 100 MG/10 ML LIQUID UDC GT SCH (08:34)
[2019-08-15] MEDS: POLYVINYL ALCOHOL OPHT DROPS 15 ML BOTTLE EACHEYE SCH ×4 (08:34→21:00)
[2019-08-15] MEDS: ACIDOPHILUS/BULGARICUS CHEW TAB GT SCH ×2 (08:35→21:00)
[2019-08-15] MEDS: PHENOBARBITAL 32.4 MG TABLET GT SCH ×2 (08:35→21:00)
[2019-08-15] MEDS: BACLOFEN 20 MG TABLET GT SCH ×3 (08:35→21:00)
[2019-08-15] MEDS: VITAMINS A AND D OINT TP SCH ×2 (08:35→21:00)
[2019-08-15] MEDS: COD LIVER OIL/ZINC OXIDE OINT 113 GM TUBE TP SCH ×2 (08:35→21:00)
[2019-08-15] MEDS: PROTEIN SUPPLEMENT (PROSTAT) 30 ML LIQUID GT SCH ×2 (08:35→21:00)
[2019-08-15] MEDS: COD LIVER OIL/ZINC OXIDE OINT 113 GM TUBE TOP SCH ×2 (08:35→21:00)
[2019-08-15] MEDS: GEMFIBROZIL 600 MG TABLET GT SCH ×2 (08:35→21:00)
[2019-08-15] MEDS: NUTRISOURCE FIBER 4 GM PACKET GT SCH (08:35)
[2019-08-15] MEDS: CHLORHEXIDINE GLUCONATE 4% TOP SOL 118 ML TP SCH ×2 (08:35)
[2019-08-15] MEDS ORDERED: PHENOBARBITAL 32.4 MG TABLET PO ONE ×4 (09:00→21:00)
[2019-08-15] MEDS: HYDROGEN PEROXIDE 3% 118 ML BOTTLE TP SCH ×2 (09:17→21:00)
--- NOTE | 2019-08-15 13:11 | NUR ---
1:00pm: TOMY received a voicemail message from Etelvina at [employer] [phone] regarding the patient's recently authorized DME (foot box leg rest and full support arm rests). TOMY called Etelvina back, but was unable to connect with Etelvina. TOMY left Etelvina a voicemail message with this SW's phone numbers, asking Etelvina to call this TOMY back.
--- NOTE | 2019-08-15 14:50 | NUR ---
SEEN AND EXAMINED BY SLY TILLEY N.P AND WITH CAROLINO.
--- NOTE | 2019-08-15 14:50 | NUR ---
SEEN BY DR. RODARTE AND WITH NNO.
[2019-08-15 20:15] VITALS: BP 113/68
[2019-08-15] MEDS: ENOXAPARIN SODIUM 40 MG/0.4 ML DISP.SYRIN SQ SCH (21:00)
[2019-08-15] MEDS: CHOLECALCIFEROL 1,000 UNIT TABLET GT SCH (21:00)
[2019-08-15] MEDS: OMEGA-3 FATTY ACIDS/FISH OIL CAPSULE GT SCH (21:00)
[2019-08-16] MEDS: IPRATROPIUM BROMIDE 0.5 MG/2.5 ML NEBU NEB SCH ×4 (01:00→19:43)
[2019-08-16] MEDS: ALBUTEROL SULFATE 1.25 MG/3 ML NEBU NEB SCH ×4 (01:00→19:43)
[2019-08-16] MEDS: JEVITY 1.2 1000 ML LIQUID GT PRN (02:20)
[2019-08-16] MEDS: VALPROIC ACID 250 MG/5 ML LIQUID UDC GT SCH ×3 (06:22→21:57)
[2019-08-16] MEDS: PANTOPRAZOLE ORAL SUSPENSION 40 MG SUSPDR.PKT GT SCH (06:22)
[2019-08-16] MEDS: HYDROGEN PEROXIDE 3% 118 ML BOTTLE TP SCH ×2 (07:43→21:00)
[2019-08-16] MEDS ORDERED: PHENOBARBITAL 32.4 MG TABLET PO ONE ×4 (09:00→21:00)
[2019-08-16] MEDS: ACIDOPHILUS/BULGARICUS CHEW TAB GT SCH ×2 (09:04→21:56)
[2019-08-16] MEDS: POLYVINYL ALCOHOL OPHT DROPS 15 ML BOTTLE EACHEYE SCH ×4 (09:04→21:56)
[2019-08-16] MEDS: DOCUSATE SODIUM 100 MG/10 ML LIQUID UDC GT SCH (09:04)
[2019-08-16] MEDS: BACLOFEN 20 MG TABLET GT SCH ×3 (09:05→21:56)
[2019-08-16] MEDS: GEMFIBROZIL 600 MG TABLET GT SCH ×2 (09:05→21:56)
[2019-08-16] MEDS: COD LIVER OIL/ZINC OXIDE OINT 113 GM TUBE TP SCH ×2 (09:06→21:57)
[2019-08-16] MEDS: COD LIVER OIL/ZINC OXIDE OINT 113 GM TUBE TOP SCH ×2 (09:06→21:57)
[2019-08-16] MEDS: PHENOBARBITAL 32.4 MG TABLET GT SCH ×2 (09:06→21:56)
[2019-08-16] MEDS: CHLORHEXIDINE GLUCONATE 4% TOP SOL 118 ML TP SCH ×2 (09:06)
[2019-08-16] MEDS: NUTRISOURCE FIBER 4 GM PACKET GT SCH (09:06)
[2019-08-16] MEDS: VITAMINS A AND D OINT TP SCH ×2 (09:06→21:57)
[2019-08-16] MEDS: PROTEIN SUPPLEMENT (PROSTAT) 30 ML LIQUID GT SCH ×2 (09:06→21:56)
[2019-08-16 11:49] VITALS: BP 101/69
[2019-08-16 20:13] VITALS: BP 101/63
[2019-08-16] MEDS: ENOXAPARIN SODIUM 40 MG/0.4 ML DISP.SYRIN SQ SCH (21:00)
[2019-08-16] MEDS: CHOLECALCIFEROL 1,000 UNIT TABLET GT SCH (21:56)
[2019-08-16] MEDS: OMEGA-3 FATTY ACIDS/FISH OIL CAPSULE GT SCH (21:56)
[2019-08-17] MEDS: IPRATROPIUM BROMIDE 0.5 MG/2.5 ML NEBU NEB SCH ×4 (00:57→19:31)
[2019-08-17] MEDS: ALBUTEROL SULFATE 1.25 MG/3 ML NEBU NEB SCH ×4 (00:57→19:31)
[2019-08-17] MEDS: JEVITY 1.2 1000 ML LIQUID GT PRN (03:06)
[2019-08-17] MEDS: PANTOPRAZOLE ORAL SUSPENSION 40 MG SUSPDR.PKT GT SCH (05:21)
[2019-08-17] MEDS: VALPROIC ACID 250 MG/5 ML LIQUID UDC GT SCH ×3 (05:21→22:08)
[2019-08-17 08:00] VITALS: BP 99/63
[2019-08-17] MEDS: COD LIVER OIL/ZINC OXIDE OINT 113 GM TUBE TP SCH ×2 (08:48→20:13)
[2019-08-17] MEDS: BACLOFEN 20 MG TABLET GT SCH ×3 (08:48→20:12)
[2019-08-17] MEDS: CHLORHEXIDINE GLUCONATE 4% TOP SOL 118 ML TP SCH ×2 (08:48)
[2019-08-17] MEDS: ACIDOPHILUS/BULGARICUS CHEW TAB GT SCH ×2 (08:48→20:12)
[2019-08-17] MEDS: NUTRISOURCE FIBER 4 GM PACKET GT SCH (08:48)
[2019-08-17] MEDS: DOCUSATE SODIUM 100 MG/10 ML LIQUID UDC GT SCH (08:48)
[2019-08-17] MEDS: PHENOBARBITAL 32.4 MG TABLET GT SCH ×2 (08:48→20:13)
[2019-08-17] MEDS: POLYVINYL ALCOHOL OPHT DROPS 15 ML BOTTLE EACHEYE SCH ×4 (08:48→20:12)
[2019-08-17] MEDS: COD LIVER OIL/ZINC OXIDE OINT 113 GM TUBE TOP SCH ×2 (08:48→20:13)
[2019-08-17] MEDS: GEMFIBROZIL 600 MG TABLET GT SCH ×2 (08:48→20:13)
[2019-08-17] MEDS: PROTEIN SUPPLEMENT (PROSTAT) 30 ML LIQUID GT SCH ×2 (08:48→20:13)
[2019-08-17] MEDS: VITAMINS A AND D OINT TP SCH ×2 (08:48→20:14)
[2019-08-17] MEDS ORDERED: PHENOBARBITAL 32.4 MG TABLET PO ONE ×4 (09:00→21:00)
[2019-08-17] MEDS: HYDROGEN PEROXIDE 3% 118 ML BOTTLE TP SCH ×2 (09:44→21:22)
[2019-08-17] MEDS: OMEGA-3 FATTY ACIDS/FISH OIL CAPSULE GT SCH (20:12)
[2019-08-17] MEDS: CHOLECALCIFEROL 1,000 UNIT TABLET GT SCH (20:13)
[2019-08-17] MEDS: ENOXAPARIN SODIUM 40 MG/0.4 ML DISP.SYRIN SQ SCH (20:15)
[2019-08-17 20:31] VITALS: BP 117/69
[2019-08-18] MEDS: JEVITY 1.2 1000 ML LIQUID GT PRN ×2 (00:22→23:30)
[2019-08-18] MEDS: ALBUTEROL SULFATE 1.25 MG/3 ML NEBU NEB SCH ×4 (01:17→19:36)
[2019-08-18] MEDS: IPRATROPIUM BROMIDE 0.5 MG/2.5 ML NEBU NEB SCH ×4 (01:17→19:36)
[2019-08-18] MEDS: PANTOPRAZOLE ORAL SUSPENSION 40 MG SUSPDR.PKT GT SCH (05:13)
[2019-08-18] MEDS: VALPROIC ACID 250 MG/5 ML LIQUID UDC GT SCH ×3 (05:13→22:16)
[2019-08-18 08:00] VITALS: BP 92/62
--- NOTE | 2019-08-18 08:36 | NUR ---
PT. WAS SEEN AND EXAMINED BY DOUG COOK.
[2019-08-18] MEDS: BACLOFEN 20 MG TABLET GT SCH ×3 (08:45→20:02)
[2019-08-18] MEDS: POLYVINYL ALCOHOL OPHT DROPS 15 ML BOTTLE EACHEYE SCH ×4 (08:45→20:00)
[2019-08-18] MEDS: DOCUSATE SODIUM 100 MG/10 ML LIQUID UDC GT SCH (08:45)
[2019-08-18] MEDS: ACIDOPHILUS/BULGARICUS CHEW TAB GT SCH ×2 (08:45→20:13)
[2019-08-18] MEDS: COD LIVER OIL/ZINC OXIDE OINT 113 GM TUBE TOP SCH ×2 (08:46→20:08)
[2019-08-18] MEDS: COD LIVER OIL/ZINC OXIDE OINT 113 GM TUBE TP SCH ×2 (08:46→20:08)
[2019-08-18] MEDS: NUTRISOURCE FIBER 4 GM PACKET GT SCH (08:46)
[2019-08-18] MEDS: GEMFIBROZIL 600 MG TABLET GT SCH ×2 (08:46→20:02)
[2019-08-18] MEDS: PHENOBARBITAL 32.4 MG TABLET GT SCH ×2 (08:46→20:08)
[2019-08-18] MEDS: PROTEIN SUPPLEMENT (PROSTAT) 30 ML LIQUID GT SCH ×2 (08:46→20:08)
[2019-08-18] MEDS: CHLORHEXIDINE GLUCONATE 4% TOP SOL 118 ML TP SCH ×2 (08:46)
[2019-08-18] MEDS: VITAMINS A AND D OINT TP SCH ×2 (08:47→20:08)
[2019-08-18] MEDS ORDERED: PHENOBARBITAL 32.4 MG TABLET PO ONE ×4 (09:00→21:00)
[2019-08-18] MEDS: HYDROGEN PEROXIDE 3% 118 ML BOTTLE TP SCH ×2 (09:00→21:01)
--- NOTE | 2019-08-18 15:53 | NUR ---
SEEN AND EXAMINED BY YOLANDA COOK.
[2019-08-18] MEDS: OMEGA-3 FATTY ACIDS/FISH OIL CAPSULE GT SCH (20:00)
[2019-08-18] MEDS: KETOCONAZOLE 2% SHAMPOO 120 ML BOTTLE TP SCH (20:08)
[2019-08-18] MEDS: CHOLECALCIFEROL 1,000 UNIT TABLET GT SCH (20:08)
[2019-08-18] MEDS: ENOXAPARIN SODIUM 40 MG/0.4 ML DISP.SYRIN SQ SCH (20:11)
[2019-08-18 20:43] VITALS: BP 118/71
[2019-08-19] MEDS: ALBUTEROL SULFATE 1.25 MG/3 ML NEBU NEB SCH ×4 (01:05→19:23)
[2019-08-19] MEDS: IPRATROPIUM BROMIDE 0.5 MG/2.5 ML NEBU NEB SCH ×4 (01:05→19:23)
[2019-08-19] MEDS: PANTOPRAZOLE ORAL SUSPENSION 40 MG SUSPDR.PKT GT SCH (05:09)
[2019-08-19] MEDS: VALPROIC ACID 250 MG/5 ML LIQUID UDC GT SCH ×3 (05:09→21:34)
[2019-08-19 08:00] VITALS: BP 122/73
[2019-08-19] MEDS: POLYVINYL ALCOHOL OPHT DROPS 15 ML BOTTLE EACHEYE SCH ×4 (08:11→20:07)
[2019-08-19] MEDS: DOCUSATE SODIUM 100 MG/10 ML LIQUID UDC GT SCH (08:12)
[2019-08-19] MEDS: ACIDOPHILUS/BULGARICUS CHEW TAB GT SCH ×2 (08:12→20:07)
[2019-08-19] MEDS: PHENOBARBITAL 32.4 MG TABLET GT SCH ×2 (08:13→20:12)
[2019-08-19] MEDS: GEMFIBROZIL 600 MG TABLET GT SCH ×2 (08:13→20:12)
[2019-08-19] MEDS: BACLOFEN 20 MG TABLET GT SCH ×3 (08:13→20:12)
[2019-08-19] MEDS: COD LIVER OIL/ZINC OXIDE OINT 113 GM TUBE TOP SCH ×2 (08:14→20:12)
[2019-08-19] MEDS: NUTRISOURCE FIBER 4 GM PACKET GT SCH (08:14)
[2019-08-19] MEDS: CHLORHEXIDINE GLUCONATE 4% TOP SOL 118 ML TP SCH ×2 (08:14)
[2019-08-19] MEDS: COD LIVER OIL/ZINC OXIDE OINT 113 GM TUBE TP SCH ×2 (08:14→20:12)
[2019-08-19] MEDS: VITAMINS A AND D OINT TP SCH ×2 (08:14→20:12)
[2019-08-19] MEDS: PROTEIN SUPPLEMENT (PROSTAT) 30 ML LIQUID GT SCH ×2 (08:14→20:12)
[2019-08-19] MEDS: HYDROGEN PEROXIDE 3% 118 ML BOTTLE TP SCH ×2 (08:18→21:04)
[2019-08-19] MEDS ORDERED: PHENOBARBITAL 32.4 MG TABLET PO ONE ×4 (09:00→21:00)
--- NOTE | 2019-08-19 12:32 | NUR ---
TOMY received another voicemail message from Etelvina at [employer] [phone], in response to this TOMY's message that was left for Etelvina on 08/15, regarding the patient's recently authorized DME. TOMY called Etelvina back and left her another voicemail message, asking for Etelvina to call this TOMY back. TOMY will follow-up with Etelvina if TOMY does not hear back from Etelvina.
--- NOTE | 2019-08-19 13:58 | NUR ---
12:36pm: TOMY received a call back from Etelvina at [employer] [phone]. Etelvina and this SW discussed patient's DME needs, which were authorized by patient's Work. Comp. clip loading machine adjuster. TOMY provided patient's current address and location information. Etelvina stated that she will contact [employer] regarding this order, who will then call this SW to schedule a time for tech to come out to see the patient and assess his DME needs. Etelvina stated that [employer] will contact this SW to schedule day/time for them to visit the patient. Etelvina also provided SW with the phone number to [employer] [phone]. SW to follow up with [employer] if TOMY does not hear from them.
[2019-08-19 19:46] VITALS: BP 116/75
[2019-08-19] MEDS: OMEGA-3 FATTY ACIDS/FISH OIL CAPSULE GT SCH (20:07)
[2019-08-19] MEDS: CHOLECALCIFEROL 1,000 UNIT TABLET GT SCH (20:12)
[2019-08-19] MEDS: ENOXAPARIN SODIUM 40 MG/0.4 ML DISP.SYRIN SQ SCH (20:14)
[2019-08-20] MEDS: JEVITY 1.2 1000 ML LIQUID GT PRN (00:20)
[2019-08-20] MEDS: IPRATROPIUM BROMIDE 0.5 MG/2.5 ML NEBU NEB SCH ×4 (01:01→19:17)
[2019-08-20] MEDS: ALBUTEROL SULFATE 1.25 MG/3 ML NEBU NEB SCH ×4 (01:01→19:17)
[2019-08-20] MEDS: VALPROIC ACID 250 MG/5 ML LIQUID UDC GT SCH ×3 (05:03→21:12)
[2019-08-20] MEDS: PANTOPRAZOLE ORAL SUSPENSION 40 MG SUSPDR.PKT GT SCH (05:03)
[2019-08-20] MEDS: ACIDOPHILUS/BULGARICUS CHEW TAB GT SCH ×2 (08:11→21:11)
[2019-08-20] MEDS: DOCUSATE SODIUM 100 MG/10 ML LIQUID UDC GT SCH (08:11)
[2019-08-20] MEDS: POLYVINYL ALCOHOL OPHT DROPS 15 ML BOTTLE EACHEYE SCH ×4 (08:11→21:11)
[2019-08-20] MEDS: BACLOFEN 20 MG TABLET GT SCH ×3 (08:12→21:11)
[2019-08-20] MEDS: NUTRISOURCE FIBER 4 GM PACKET GT SCH (08:12)
[2019-08-20] MEDS: PHENOBARBITAL 32.4 MG TABLET GT SCH ×2 (08:12→21:11)
[2019-08-20] MEDS: GEMFIBROZIL 600 MG TABLET GT SCH ×2 (08:12→21:11)
[2019-08-20] MEDS: COD LIVER OIL/ZINC OXIDE OINT 113 GM TUBE TOP SCH ×2 (08:13→21:12)
[2019-08-20] MEDS: PROTEIN SUPPLEMENT (PROSTAT) 30 ML LIQUID GT SCH ×2 (08:13→21:12)
[2019-08-20] MEDS: COD LIVER OIL/ZINC OXIDE OINT 113 GM TUBE TP SCH ×2 (08:13→21:12)
[2019-08-20] MEDS: CHLORHEXIDINE GLUCONATE 4% TOP SOL 118 ML TP SCH ×2 (08:14)
[2019-08-20] MEDS: VITAMINS A AND D OINT TP SCH ×2 (08:14→21:12)
[2019-08-20] MEDS ORDERED: PHENOBARBITAL 32.4 MG TABLET PO ONE ×4 (09:00→21:00)
[2019-08-20] MEDS: HYDROGEN PEROXIDE 3% 118 ML BOTTLE TP SCH ×2 (09:51→20:51)
[2019-08-20 19:43] VITALS: BP 101/62
[2019-08-20] MEDS: ENOXAPARIN SODIUM 40 MG/0.4 ML DISP.SYRIN SQ SCH (21:00)
[2019-08-20] MEDS: OMEGA-3 FATTY ACIDS/FISH OIL CAPSULE GT SCH (21:11)
[2019-08-20] MEDS: CHOLECALCIFEROL 1,000 UNIT TABLET GT SCH (21:12)
[2019-08-21] MEDS: IPRATROPIUM BROMIDE 0.5 MG/2.5 ML NEBU NEB SCH ×4 (00:46→19:05)
[2019-08-21] MEDS: ALBUTEROL SULFATE 1.25 MG/3 ML NEBU NEB SCH ×4 (00:46→19:05)
[2019-08-21] MEDS: PANTOPRAZOLE ORAL SUSPENSION 40 MG SUSPDR.PKT GT SCH (05:35)
[2019-08-21] MEDS: VALPROIC ACID 250 MG/5 ML LIQUID UDC GT SCH ×3 (05:35→22:49)
[2019-08-21 08:00] VITALS: BP 109/67
[2019-08-21] MEDS: ACIDOPHILUS/BULGARICUS CHEW TAB GT SCH ×2 (08:48→22:00)
[2019-08-21] MEDS: DOCUSATE SODIUM 100 MG/10 ML LIQUID UDC GT SCH (08:48)
[2019-08-21] MEDS: GEMFIBROZIL 600 MG TABLET GT SCH ×2 (08:48→22:00)
[2019-08-21] MEDS: COD LIVER OIL/ZINC OXIDE OINT 113 GM TUBE TOP SCH ×2 (08:48→22:00)
[2019-08-21] MEDS: VITAMINS A AND D OINT TP SCH ×2 (08:48→22:00)
[2019-08-21] MEDS: PROTEIN SUPPLEMENT (PROSTAT) 30 ML LIQUID GT SCH ×2 (08:48→22:00)
[2019-08-21] MEDS: BACLOFEN 20 MG TABLET GT SCH ×3 (08:48→22:00)
[2019-08-21] MEDS: COD LIVER OIL/ZINC OXIDE OINT 113 GM TUBE TP SCH ×2 (08:48→22:00)
[2019-08-21] MEDS: POLYVINYL ALCOHOL OPHT DROPS 15 ML BOTTLE EACHEYE SCH ×4 (08:48→22:00)
[2019-08-21] MEDS: CHLORHEXIDINE GLUCONATE 4% TOP SOL 118 ML TP SCH ×2 (08:48)
[2019-08-21] MEDS: NUTRISOURCE FIBER 4 GM PACKET GT SCH (08:48)
[2019-08-21] MEDS: PHENOBARBITAL 32.4 MG TABLET GT SCH ×2 (08:48→22:00)
[2019-08-21] MEDS ORDERED: PHENOBARBITAL 32.4 MG TABLET PO ONE ×2 (09:00)
[2019-08-21] MEDS: HYDROGEN PEROXIDE 3% 118 ML BOTTLE TP SCH ×2 (09:03→21:40)
--- NOTE | 2019-08-21 11:34 | NUR ---
TOMY received a voicemail message from Tiny at [employer] [phone], regarding scheduling a time to come out to assess patient's DME needs, as ordered and authorized thru patient's Work. Comp. insurance. TOMY called [employer] back and spoke with Sara. Sara stated that their flight technician Drew (aka Gasper Sanchez) can come out on August 24 between the hours of 10-11am to assess the patient. TOMY agreed. Sara stated that the flight technician would like to have the patient up in his wheelchair during the assessment, and TOMY stated that she will let nursing know to have the patient up in the wheelchair. TOMY informed PT Jeannine of appointment date/time.
--- NOTE | 2019-08-21 19:00 | NUR ---
SEEN BY WITH NNO.
[2019-08-21 19:51] VITALS: BP 93/60
[2019-08-21] MEDS: CHOLECALCIFEROL 1,000 UNIT TABLET GT SCH (22:00)
[2019-08-21] MEDS: KETOCONAZOLE 2% SHAMPOO 120 ML BOTTLE TP SCH (22:00)
[2019-08-21] MEDS: ENOXAPARIN SODIUM 40 MG/0.4 ML DISP.SYRIN SQ SCH (22:00)
[2019-08-21] MEDS: OMEGA-3 FATTY ACIDS/FISH OIL CAPSULE GT SCH (22:00)
[2019-08-22] MEDS: IPRATROPIUM BROMIDE 0.5 MG/2.5 ML NEBU NEB SCH ×4 (01:28→19:45)
[2019-08-22] MEDS: ALBUTEROL SULFATE 1.25 MG/3 ML NEBU NEB SCH ×4 (01:28→19:45)
[2019-08-22] MEDS: VALPROIC ACID 250 MG/5 ML LIQUID UDC GT SCH ×3 (05:58→21:28)
[2019-08-22] MEDS: PANTOPRAZOLE ORAL SUSPENSION 40 MG SUSPDR.PKT GT SCH (05:59)
[2019-08-22] MEDS: DOCUSATE SODIUM 100 MG/10 ML LIQUID UDC GT SCH (08:52)
[2019-08-22] MEDS: ACIDOPHILUS/BULGARICUS CHEW TAB GT SCH ×2 (08:52→21:27)
[2019-08-22] MEDS: POLYVINYL ALCOHOL OPHT DROPS 15 ML BOTTLE EACHEYE SCH ×4 (08:52→21:27)
[2019-08-22] MEDS: BACLOFEN 20 MG TABLET GT SCH ×3 (08:53→21:27)
[2019-08-22] MEDS: GEMFIBROZIL 600 MG TABLET GT SCH ×2 (08:55→21:27)
[2019-08-22] MEDS: COD LIVER OIL/ZINC OXIDE OINT 113 GM TUBE TP SCH ×2 (08:55→21:28)
[2019-08-22] MEDS: CHLORHEXIDINE GLUCONATE 4% TOP SOL 118 ML TP SCH ×2 (08:55→08:56)
[2019-08-22] MEDS: NUTRISOURCE FIBER 4 GM PACKET GT SCH (08:55)
[2019-08-22] MEDS: PHENOBARBITAL 32.4 MG TABLET GT SCH ×2 (08:55→21:28)
[2019-08-22] MEDS: PROTEIN SUPPLEMENT (PROSTAT) 30 ML LIQUID GT SCH ×2 (08:55→21:28)
[2019-08-22] MEDS: VITAMINS A AND D OINT TP SCH ×2 (08:56→21:28)
[2019-08-22] MEDS: HYDROGEN PEROXIDE 3% 118 ML BOTTLE TP SCH ×2 (09:00→21:22)
[2019-08-22 11:29] VITALS: BP 100/69
[2019-08-22] MEDS: JEVITY 1.2 1000 ML LIQUID GT PRN (12:53)
[2019-08-22 19:57] VITALS: BP 113/73
[2019-08-22] MEDS: OMEGA-3 FATTY ACIDS/FISH OIL CAPSULE GT SCH (21:27)
[2019-08-22] MEDS: CHOLECALCIFEROL 1,000 UNIT TABLET GT SCH (21:28)
[2019-08-22] MEDS: ENOXAPARIN SODIUM 40 MG/0.4 ML DISP.SYRIN SQ SCH (21:32)
[2019-08-23] MEDS: IPRATROPIUM BROMIDE 0.5 MG/2.5 ML NEBU NEB SCH ×4 (01:05→19:13)
[2019-08-23] MEDS: ALBUTEROL SULFATE 1.25 MG/3 ML NEBU NEB SCH ×4 (01:05→19:13)
[2019-08-23] MEDS: PANTOPRAZOLE ORAL SUSPENSION 40 MG SUSPDR.PKT GT SCH (05:30)
[2019-08-23] MEDS: VALPROIC ACID 250 MG/5 ML LIQUID UDC GT SCH ×3 (05:30→21:30)
[2019-08-23] MEDS: HYDROGEN PEROXIDE 3% 118 ML BOTTLE TP SCH ×2 (07:36→21:00)
[2019-08-23] MEDS: POLYVINYL ALCOHOL OPHT DROPS 15 ML BOTTLE EACHEYE SCH ×4 (09:22→21:30)
[2019-08-23] MEDS: DOCUSATE SODIUM 100 MG/10 ML LIQUID UDC GT SCH (09:22)
[2019-08-23] MEDS: BACLOFEN 20 MG TABLET GT SCH ×3 (09:22→21:30)
[2019-08-23] MEDS: ACIDOPHILUS/BULGARICUS CHEW TAB GT SCH ×2 (09:22→21:30)
[2019-08-23] MEDS: NUTRISOURCE FIBER 4 GM PACKET GT SCH (09:23)
[2019-08-23] MEDS: PHENOBARBITAL 32.4 MG TABLET GT SCH ×2 (09:23→21:30)
[2019-08-23] MEDS: GEMFIBROZIL 600 MG TABLET GT SCH ×2 (09:23→21:30)
[2019-08-23] MEDS: PROTEIN SUPPLEMENT (PROSTAT) 30 ML LIQUID GT SCH ×2 (09:25→21:30)
[2019-08-23] MEDS: COD LIVER OIL/ZINC OXIDE OINT 113 GM TUBE TP SCH ×2 (09:25→21:30)
[2019-08-23] MEDS: VITAMINS A AND D OINT TP SCH ×2 (09:25→21:30)
[2019-08-23] MEDS: CHLORHEXIDINE GLUCONATE 4% TOP SOL 118 ML TP SCH ×2 (09:25)
--- NOTE | 2019-08-23 11:00 | NUR ---
Seen by Dr. Pena, with no new orders.
[2019-08-23 11:30] VITALS: BP 115/57
[2019-08-23] MEDS: OMEGA-3 FATTY ACIDS/FISH OIL CAPSULE GT SCH (21:30)
[2019-08-23] MEDS: CHOLECALCIFEROL 1,000 UNIT TABLET GT SCH (21:30)
[2019-08-23] MEDS: ENOXAPARIN SODIUM 40 MG/0.4 ML DISP.SYRIN SQ SCH (21:31)
[2019-08-23 22:36] VITALS: BP 109/71
[2019-08-24] MEDS: ALBUTEROL SULFATE 1.25 MG/3 ML NEBU NEB SCH ×4 (00:43→19:11)
[2019-08-24] MEDS: IPRATROPIUM BROMIDE 0.5 MG/2.5 ML NEBU NEB SCH ×4 (00:43→19:11)
[2019-08-24] MEDS: PANTOPRAZOLE ORAL SUSPENSION 40 MG SUSPDR.PKT GT SCH (05:38)
[2019-08-24] MEDS: VALPROIC ACID 250 MG/5 ML LIQUID UDC GT SCH ×3 (05:38→21:49)
[2019-08-24] MEDS: JEVITY 1.2 1000 ML LIQUID GT PRN (05:39)
[2019-08-24 08:03] VITALS: BP 107/66
[2019-08-24] MEDS: DOCUSATE SODIUM 100 MG/10 ML LIQUID UDC GT SCH (08:42)
[2019-08-24] MEDS: POLYVINYL ALCOHOL OPHT DROPS 15 ML BOTTLE EACHEYE SCH ×4 (08:42→21:47)
[2019-08-24] MEDS: ACIDOPHILUS/BULGARICUS CHEW TAB GT SCH ×2 (08:42→21:47)
[2019-08-24] MEDS: BACLOFEN 20 MG TABLET GT SCH ×3 (08:42→21:47)
[2019-08-24] MEDS: GEMFIBROZIL 600 MG TABLET GT SCH ×2 (08:43→21:48)
[2019-08-24] MEDS: PROTEIN SUPPLEMENT (PROSTAT) 30 ML LIQUID GT SCH ×2 (08:58→21:48)
[2019-08-24] MEDS: NUTRISOURCE FIBER 4 GM PACKET GT SCH (08:58)
[2019-08-24] MEDS: PHENOBARBITAL 32.4 MG TABLET GT SCH ×2 (08:58→21:48)
[2019-08-24] MEDS: COD LIVER OIL/ZINC OXIDE OINT 113 GM TUBE TP SCH ×2 (08:59→21:49)
[2019-08-24] MEDS: VITAMINS A AND D OINT TP SCH ×2 (08:59→21:49)
[2019-08-24] MEDS: CHLORHEXIDINE GLUCONATE 4% TOP SOL 118 ML TP SCH ×2 (08:59)
[2019-08-24] MEDS: HYDROGEN PEROXIDE 3% 118 ML BOTTLE TP SCH ×2 (10:28→20:37)
[2019-08-24 20:07] VITALS: BP 97/66
[2019-08-24] MEDS: OMEGA-3 FATTY ACIDS/FISH OIL CAPSULE GT SCH (21:47)
[2019-08-24] MEDS: CHOLECALCIFEROL 1,000 UNIT TABLET GT SCH (21:48)
[2019-08-24] MEDS: ENOXAPARIN SODIUM 40 MG/0.4 ML DISP.SYRIN SQ SCH (22:18)
[2019-08-25] MEDS: JEVITY 1.2 1000 ML LIQUID GT PRN (00:16)
[2019-08-25] MEDS: IPRATROPIUM BROMIDE 0.5 MG/2.5 ML NEBU NEB SCH ×4 (00:42→19:40)
[2019-08-25] MEDS: ALBUTEROL SULFATE 1.25 MG/3 ML NEBU NEB SCH ×4 (00:42→19:40)
[2019-08-25] MEDS: VALPROIC ACID 250 MG/5 ML LIQUID UDC GT SCH ×3 (05:20→21:27)
[2019-08-25] MEDS: PANTOPRAZOLE ORAL SUSPENSION 40 MG SUSPDR.PKT GT SCH (05:20)
[2019-08-25 08:00] VITALS: BP 105/65
[2019-08-25] MEDS: PROTEIN SUPPLEMENT (PROSTAT) 30 ML LIQUID GT SCH ×2 (08:46→21:24)
[2019-08-25] MEDS: CHLORHEXIDINE GLUCONATE 4% TOP SOL 118 ML TP SCH ×2 (08:46)
[2019-08-25] MEDS: GEMFIBROZIL 600 MG TABLET GT SCH ×2 (08:46→21:23)
[2019-08-25] MEDS: BACLOFEN 20 MG TABLET GT SCH ×3 (08:46→21:22)
[2019-08-25] MEDS: COD LIVER OIL/ZINC OXIDE OINT 113 GM TUBE TP SCH ×2 (08:46→21:25)
[2019-08-25] MEDS: NUTRISOURCE FIBER 4 GM PACKET GT SCH (08:46)
[2019-08-25] MEDS: PHENOBARBITAL 32.4 MG TABLET GT SCH ×2 (08:46→21:23)
[2019-08-25] MEDS: VITAMINS A AND D OINT TP SCH ×2 (08:46→21:25)
[2019-08-25] MEDS: POLYVINYL ALCOHOL OPHT DROPS 15 ML BOTTLE EACHEYE SCH ×4 (08:46→21:21)
[2019-08-25] MEDS: DOCUSATE SODIUM 100 MG/10 ML LIQUID UDC GT SCH (08:46)
[2019-08-25] MEDS: ACIDOPHILUS/BULGARICUS CHEW TAB GT SCH ×2 (08:46→21:41)
[2019-08-25] MEDS: HYDROGEN PEROXIDE 3% 118 ML BOTTLE TP SCH ×2 (09:00→21:01)
--- NOTE | 2019-08-25 11:35 | NUR ---
10:35am: Teo Aleman from [employer] arrived for his appointment today. PT Jeannine was also present. Patient's wheelchair was assessed for the DME that Jeannine had requested and patient's insurance had authorized. Teo stated that he will be working on the quote in order to get the final "ok" from the patient's insurance and will then call this SW back to schedule another appointment day/time in order to bring the DME parts and upgrade patient's wheelchair. This SW and PT Jeannine expressed agreement.
[2019-08-25 20:09] VITALS: BP 115/70
[2019-08-25] MEDS: CHOLECALCIFEROL 1,000 UNIT TABLET GT SCH (21:24)
[2019-08-25] MEDS: KETOCONAZOLE 2% SHAMPOO 120 ML BOTTLE TP SCH (21:25)
[2019-08-25] MEDS: ENOXAPARIN SODIUM 40 MG/0.4 ML DISP.SYRIN SQ SCH (21:25)
[2019-08-25] MEDS: OMEGA-3 FATTY ACIDS/FISH OIL CAPSULE GT SCH (21:28)
[2019-08-26] MEDS: ALBUTEROL SULFATE 1.25 MG/3 ML NEBU NEB SCH ×4 (01:09→19:25)
[2019-08-26] MEDS: IPRATROPIUM BROMIDE 0.5 MG/2.5 ML NEBU NEB SCH ×4 (01:09→19:25)
[2019-08-26] MEDS: VALPROIC ACID 250 MG/5 ML LIQUID UDC GT SCH ×3 (05:30→22:00)
[2019-08-26 08:00] VITALS: BP 94/63
[2019-08-26] MEDS: HYDROGEN PEROXIDE 3% 118 ML BOTTLE TP SCH ×2 (08:06→21:57)
[2019-08-26] MEDS: PHENOBARBITAL 32.4 MG TABLET GT SCH ×2 (08:47→20:18)
[2019-08-26] MEDS: POLYVINYL ALCOHOL OPHT DROPS 15 ML BOTTLE EACHEYE SCH ×4 (08:51→20:15)
[2019-08-26] MEDS: DOCUSATE SODIUM 100 MG/10 ML LIQUID UDC GT SCH (08:52)
[2019-08-26] MEDS: ACIDOPHILUS/BULGARICUS CHEW TAB GT SCH ×2 (08:53→20:16)
[2019-08-26] MEDS: BACLOFEN 20 MG TABLET GT SCH ×3 (08:53→20:17)
[2019-08-26] MEDS: GEMFIBROZIL 600 MG TABLET GT SCH ×2 (08:54→20:18)
[2019-08-26] MEDS: COD LIVER OIL/ZINC OXIDE OINT 113 GM TUBE TP SCH ×2 (08:55→20:21)
[2019-08-26] MEDS: CHLORHEXIDINE GLUCONATE 4% TOP SOL 118 ML TP SCH ×2 (08:55)
[2019-08-26] MEDS: VITAMINS A AND D OINT TP SCH ×2 (08:55→20:22)
[2019-08-26] MEDS: NUTRISOURCE FIBER 4 GM PACKET GT SCH (08:55)
[2019-08-26] MEDS: PROTEIN SUPPLEMENT (PROSTAT) 30 ML LIQUID GT SCH ×2 (08:55→20:20)
--- NOTE | 2019-08-26 13:22 | NUR ---
Pharmacy Update from Today's 08/26/19 IDT Meeting: VS: Temp 98.5 BP 115/70 HR 91 LABS: (from 08/04/19) Wbc 5.9 H/H 14.7/8/43 Plt 176 Na 136 K 4.1 Cl 101 CO2 33 BUN/SCr 20/0.3 BS 116 Ca 8.8 MEDICATION USE REVIEWED: > Pt on Phenobarbital 64.8mg BID. Last level on 03/12/19 was 36.4 (15-39) > Pt on Valproic acid 1000mg qhs and 500mg qam and 1400. Last level on 03/12/19 was 45 (50-100). Although valcoid acid level slightly low, MD elected continuation with no change in current dose as has been stable on current dose for prolonged period, no reported seizure activity in past month > On Lovenox 40mg SQ daily for DVT Prophylaxis started 01/08. Latest plt 176 > PRN MED USAGE: (Jul) Tylenol for pain used x0 Tylenol for temp used x0 Thorazine 25mg PRN hiccups x0 Bisacodyl supp used x0 NEW ORDERS NOTED: > Rocephin for UTI 08/07-08/11 > Clindamycin 1% solution 07/31-08/09 for neck rashes > Doxycycline 100mg q12hr 07/30-08/09 for recurrent folliculitis Pt was reviewed and discussed in depth, with no medication issues noted per team. Remains stable with occasional dermatology treatments d/t chronic folliculitis. Will consider asking for phenobarb and valproic acid repeat levels this month for continued routine monitoring. Will follow
--- NOTE | 2019-08-26 15:06 | NUR ---
INTERDISCIPLINARY PLAN OF CARE CONFERENCE was held today. Patient's mother was unable to attend the meeting. Dr. Bowser and the Interdisciplinary Team reviewed the current plan of care in detail. RN reported on patient's medical condition, and recent treatment for patient's skin. See RN IDT conference notes. No major changes in condition were reported. See all disciplines IDT notes and physician's progress notes for additional details.
[2019-08-26 19:43] VITALS: BP 125/83
[2019-08-26] MEDS: JEVITY 1.2 1000 ML LIQUID GT PRN (20:10)
[2019-08-26] MEDS: OMEGA-3 FATTY ACIDS/FISH OIL CAPSULE GT SCH (20:16)
[2019-08-26] MEDS: ENOXAPARIN SODIUM 40 MG/0.4 ML DISP.SYRIN SQ SCH (20:20)
[2019-08-26] MEDS: CHOLECALCIFEROL 1,000 UNIT TABLET GT SCH (20:20)
[2019-08-26] MEDS ORDERED: PHENOBARBITAL 32.4 MG TABLET PO ONE ×2 (21:00)
[2019-08-27] MEDS: ALBUTEROL SULFATE 1.25 MG/3 ML NEBU NEB SCH ×4 (01:25→19:21)
[2019-08-27] MEDS: IPRATROPIUM BROMIDE 0.5 MG/2.5 ML NEBU NEB SCH ×4 (01:25→19:21)
[2019-08-27] MEDS: VALPROIC ACID 250 MG/5 ML LIQUID UDC GT SCH ×3 (05:58→22:47)
[2019-08-27] MEDS: PANTOPRAZOLE ORAL SUSPENSION 40 MG SUSPDR.PKT GT SCH (06:00)
[2019-08-27] MEDS: HYDROGEN PEROXIDE 3% 118 ML BOTTLE TP SCH ×2 (07:29→21:20)
[2019-08-27 08:00] VITALS: BP 107/68
[2019-08-27] MEDS ORDERED: PHENOBARBITAL 32.4 MG TABLET PO ONE ×4 (09:00→21:00)
[2019-08-27] MEDS: PROTEIN SUPPLEMENT (PROSTAT) 30 ML LIQUID GT SCH ×2 (09:01→20:35)
[2019-08-27] MEDS: COD LIVER OIL/ZINC OXIDE OINT 113 GM TUBE TP SCH ×2 (09:01→20:36)
[2019-08-27] MEDS: PHENOBARBITAL 32.4 MG TABLET GT SCH ×2 (09:01→20:34)
[2019-08-27] MEDS: CHLORHEXIDINE GLUCONATE 4% TOP SOL 118 ML TP SCH ×2 (09:01)
[2019-08-27] MEDS: BACLOFEN 20 MG TABLET GT SCH ×3 (09:01→20:34)
[2019-08-27] MEDS: GEMFIBROZIL 600 MG TABLET GT SCH ×2 (09:01→20:34)
[2019-08-27] MEDS: ACIDOPHILUS/BULGARICUS CHEW TAB GT SCH ×2 (09:01→20:34)
[2019-08-27] MEDS: NUTRISOURCE FIBER 4 GM PACKET GT SCH (09:01)
[2019-08-27] MEDS: POLYVINYL ALCOHOL OPHT DROPS 15 ML BOTTLE EACHEYE SCH ×4 (09:01→20:34)
[2019-08-27] MEDS: VITAMINS A AND D OINT TP SCH ×2 (09:01→20:36)
[2019-08-27] MEDS: DOCUSATE SODIUM 100 MG/10 ML LIQUID UDC GT SCH (09:01)
[2019-08-27] MEDS: JEVITY 1.2 1000 ML LIQUID GT PRN (19:55)
[2019-08-27 20:06] VITALS: BP 120/79
[2019-08-27] MEDS: OMEGA-3 FATTY ACIDS/FISH OIL CAPSULE GT SCH (20:34)
[2019-08-27] MEDS: ENOXAPARIN SODIUM 40 MG/0.4 ML DISP.SYRIN SQ SCH (20:35)
[2019-08-27] MEDS: CHOLECALCIFEROL 1,000 UNIT TABLET GT SCH (20:35)
[2019-08-28] MEDS: IPRATROPIUM BROMIDE 0.5 MG/2.5 ML NEBU NEB SCH ×4 (00:42→19:48)
[2019-08-28] MEDS: ALBUTEROL SULFATE 1.25 MG/3 ML NEBU NEB SCH ×4 (00:42→19:48)
[2019-08-28] MEDS: PANTOPRAZOLE ORAL SUSPENSION 40 MG SUSPDR.PKT GT SCH (06:10)
[2019-08-28] MEDS: VALPROIC ACID 250 MG/5 ML LIQUID UDC GT SCH ×3 (06:10→22:50)
[2019-08-28 07:00] VITALS: BP 118/67
[2019-08-28] MEDS: HYDROGEN PEROXIDE 3% 118 ML BOTTLE TP SCH ×2 (08:49→20:49)
[2019-08-28] MEDS ORDERED: PHENOBARBITAL 32.4 MG TABLET PO ONE ×4 (09:00→21:00)
[2019-08-28] MEDS: POLYVINYL ALCOHOL OPHT DROPS 15 ML BOTTLE EACHEYE SCH ×4 (09:13→20:42)
[2019-08-28] MEDS: DOCUSATE SODIUM 100 MG/10 ML LIQUID UDC GT SCH (09:14)
[2019-08-28] MEDS: ACIDOPHILUS/BULGARICUS CHEW TAB GT SCH ×2 (09:15→20:42)
[2019-08-28] MEDS: BACLOFEN 20 MG TABLET GT SCH ×3 (09:16→20:42)
[2019-08-28] MEDS: CHLORHEXIDINE GLUCONATE 4% TOP SOL 118 ML TP SCH ×2 (09:17→09:18)
[2019-08-28] MEDS: PHENOBARBITAL 32.4 MG TABLET GT SCH ×2 (09:17→20:42)
[2019-08-28] MEDS: PROTEIN SUPPLEMENT (PROSTAT) 30 ML LIQUID GT SCH ×2 (09:17→20:42)
[2019-08-28] MEDS: COD LIVER OIL/ZINC OXIDE OINT 113 GM TUBE TP SCH ×2 (09:17→20:43)
[2019-08-28] MEDS: GEMFIBROZIL 600 MG TABLET GT SCH ×2 (09:17→20:42)
[2019-08-28] MEDS: NUTRISOURCE FIBER 4 GM PACKET GT SCH (09:17)
[2019-08-28] MEDS: VITAMINS A AND D OINT TP SCH ×2 (09:18→21:00)
--- NOTE | 2019-08-28 13:56 | NUR ---
SEEN BY DR. MCLAUGHLIN AND WITH NNO.
[2019-08-28 20:00] VITALS: BP 139/79
[2019-08-28] MEDS: OMEGA-3 FATTY ACIDS/FISH OIL CAPSULE GT SCH (20:42)
[2019-08-28] MEDS: CHOLECALCIFEROL 1,000 UNIT TABLET GT SCH (20:42)
[2019-08-28] MEDS: ENOXAPARIN SODIUM 40 MG/0.4 ML DISP.SYRIN SQ SCH (20:43)
[2019-08-28] MEDS: KETOCONAZOLE 2% SHAMPOO 120 ML BOTTLE TP SCH (20:45)
[2019-08-29] MEDS: IPRATROPIUM BROMIDE 0.5 MG/2.5 ML NEBU NEB SCH ×4 (01:03→20:07)
[2019-08-29] MEDS: ALBUTEROL SULFATE 1.25 MG/3 ML NEBU NEB SCH ×4 (01:03→20:07)
[2019-08-29] MEDS: VALPROIC ACID 250 MG/5 ML LIQUID UDC GT SCH ×3 (06:15→21:55)
[2019-08-29] MEDS: PANTOPRAZOLE ORAL SUSPENSION 40 MG SUSPDR.PKT GT SCH (06:15)
[2019-08-29 08:30] VITALS: BP 113/71
[2019-08-29] MEDS: PHENOBARBITAL 32.4 MG TABLET GT SCH ×2 (08:53→20:48)
[2019-08-29] MEDS: GEMFIBROZIL 600 MG TABLET GT SCH ×2 (08:53→20:48)
[2019-08-29] MEDS: BACLOFEN 20 MG TABLET GT SCH ×3 (08:53→20:48)
[2019-08-29] MEDS: PROTEIN SUPPLEMENT (PROSTAT) 30 ML LIQUID GT SCH ×2 (08:54→20:49)
[2019-08-29] MEDS: CHLORHEXIDINE GLUCONATE 4% TOP SOL 118 ML TP SCH ×2 (08:54)
[2019-08-29] MEDS: ACIDOPHILUS/BULGARICUS CHEW TAB GT SCH ×2 (08:54→20:48)
[2019-08-29] MEDS: NUTRISOURCE FIBER 4 GM PACKET GT SCH (08:54)
[2019-08-29] MEDS: POLYVINYL ALCOHOL OPHT DROPS 15 ML BOTTLE EACHEYE SCH ×4 (08:54→20:48)
[2019-08-29] MEDS: VITAMINS A AND D OINT TP SCH ×2 (08:54→21:55)
[2019-08-29] MEDS: DOCUSATE SODIUM 100 MG/10 ML LIQUID UDC GT SCH (08:54)
[2019-08-29] MEDS: COD LIVER OIL/ZINC OXIDE OINT 113 GM TUBE TP SCH ×2 (08:54→20:50)
[2019-08-29] MEDS: HYDROGEN PEROXIDE 3% 118 ML BOTTLE TP SCH ×2 (09:00→21:32)
[2019-08-29] MEDS ORDERED: PHENOBARBITAL 32.4 MG TABLET PO ONE ×2 (09:00→21:00)
--- NOTE | 2019-08-29 11:55 | NUR ---
DR. PUTNAM ALSO WAS NOTIFIED THAT BLADDER SCAN WAS DONE AND 300ML NOTED EVEN WITH F/C AND NOTED WITH SEDIMENTS.
--- NOTE | 2019-08-29 11:58 | NUR ---
WAS NOTIFIED RE:PT'S MOTHER QUESTIONING IF F/C WAS GOING TO BE D/C SOON AND ALSO HE ALSO WAS AWARE THAT D/T F/C IS 12 X10 ITS EASILY OBSTRUCTED WITH URINE SEDIMENTS AND HE SAID TO KEEP F/C AND THAT HE IS NOT PLANNING TO CHANGE IT TO A BIGGER SIZE D/T THE EXTREME DIFFICULTY OF ITS PLACEMENT AND THAT IN MAIN TIME HE ORDERED TO IRRIGATE PRN.
[2019-08-29] MEDS: JEVITY 1.2 1000 ML LIQUID GT PRN (17:30)
--- NOTE | 2019-08-29 18:00 | NUR ---
AFTER F/C BLADDER IRRIGATION NOTED WITH IMPROVED URINE FLOW .
[2019-08-29 20:05] VITALS: BP 118/77
[2019-08-29] MEDS: OMEGA-3 FATTY ACIDS/FISH OIL CAPSULE GT SCH (20:48)
[2019-08-29] MEDS: CHOLECALCIFEROL 1,000 UNIT TABLET GT SCH (20:49)
[2019-08-29] MEDS: ENOXAPARIN SODIUM 40 MG/0.4 ML DISP.SYRIN SQ SCH (20:49)
[2019-08-30] MEDS: ALBUTEROL SULFATE 1.25 MG/3 ML NEBU NEB SCH ×4 (01:26→20:27)
[2019-08-30] MEDS: IPRATROPIUM BROMIDE 0.5 MG/2.5 ML NEBU NEB SCH ×4 (01:26→20:27)
[2019-08-30] MEDS: PANTOPRAZOLE ORAL SUSPENSION 40 MG SUSPDR.PKT GT SCH (05:17)
[2019-08-30] MEDS: VALPROIC ACID 250 MG/5 ML LIQUID UDC GT SCH ×3 (05:17→21:08)
[2019-08-30] MEDS: HYDROGEN PEROXIDE 3% 118 ML BOTTLE TP SCH ×2 (07:46→21:35)
[2019-08-30 08:30] VITALS: BP 96/54
[2019-08-30] MEDS: POLYVINYL ALCOHOL OPHT DROPS 15 ML BOTTLE EACHEYE SCH ×4 (08:59→20:53)
[2019-08-30] MEDS ORDERED: PHENOBARBITAL 32.4 MG TABLET PO ONE ×2 (09:00→21:00)
[2019-08-30] MEDS: ACIDOPHILUS/BULGARICUS CHEW TAB GT SCH ×2 (09:00→20:53)
[2019-08-30] MEDS: DOCUSATE SODIUM 100 MG/10 ML LIQUID UDC GT SCH (09:00)
[2019-08-30] MEDS: GEMFIBROZIL 600 MG TABLET GT SCH ×2 (09:01→20:53)
[2019-08-30] MEDS: BACLOFEN 20 MG TABLET GT SCH ×3 (09:01→20:53)
[2019-08-30] MEDS: NUTRISOURCE FIBER 4 GM PACKET GT SCH (09:01)
[2019-08-30] MEDS: VITAMINS A AND D OINT TP SCH ×2 (09:02→20:54)
[2019-08-30] MEDS: CHLORHEXIDINE GLUCONATE 4% TOP SOL 118 ML TP SCH ×2 (09:02)
[2019-08-30] MEDS: COD LIVER OIL/ZINC OXIDE OINT 113 GM TUBE TP SCH ×2 (09:02→20:54)
[2019-08-30] MEDS: PHENOBARBITAL 32.4 MG TABLET GT SCH ×2 (09:02→20:53)
[2019-08-30] MEDS: PROTEIN SUPPLEMENT (PROSTAT) 30 ML LIQUID GT SCH ×2 (09:02→20:53)
--- NOTE | 2019-08-30 10:45 | NUR ---
SEEN BY UZMA Bernard) AND WITH NNO.
[2019-08-30] MEDS: JEVITY 1.2 1000 ML LIQUID GT PRN (13:09)
[2019-08-30 20:15] VITALS: BP 103/72
[2019-08-30] MEDS: OMEGA-3 FATTY ACIDS/FISH OIL CAPSULE GT SCH (20:53)
[2019-08-30] MEDS: CHOLECALCIFEROL 1,000 UNIT TABLET GT SCH (20:53)
[2019-08-30] MEDS: ENOXAPARIN SODIUM 40 MG/0.4 ML DISP.SYRIN SQ SCH (20:54)
[2019-08-31] MEDS: ALBUTEROL SULFATE 1.25 MG/3 ML NEBU NEB SCH ×4 (01:11→19:18)
[2019-08-31] MEDS: IPRATROPIUM BROMIDE 0.5 MG/2.5 ML NEBU NEB SCH ×4 (01:11→19:18)
[2019-08-31] MEDS: PANTOPRAZOLE ORAL SUSPENSION 40 MG SUSPDR.PKT GT SCH (05:43)
[2019-08-31] MEDS: VALPROIC ACID 250 MG/5 ML LIQUID UDC GT SCH ×3 (05:43→21:00)
--- NOTE | 2019-08-31 07:20 | NUR ---
V/S CHECKED BY COREMAKING SUPERVISOR AT THIS TIME REPORTED TO CH. NURSE FOLLOW:TEMP 103.1f,HR 159,RR 24,B/P 110/75,P/A 2/10.TRANSPORTATION PLANNING ENGINEER REPORTED BY PASSING URINE LAST NOC. REPORTED FROM NOC SHIFT.BLADDER SCAN SHOWING 400ML AND SMALL YELLOW URINE AMOUNT AT THIS TIME (BEGINNING OF SHIFT)BLADDER IRRIGATION IN AND OUT TO DISLODGE SEDIMENTS DONE AND ABLE TO OBTAIN 450 ML OUTPUT ,URINE NOTED WITH STRONG ODOR AND CONCENTRATED .COOLING MEASURES DONE(BATHED) AND UZMA Mckeon.PCesar(I.D) WAS PAGED WELL DR. PUTNAM (UROLOGIST ) AND MESSAGE LEFT RE:PT'S LATEST CONDITION AND ALSO MESSAGE LEFT FOR PT'S MOTHER.
--- NOTE | 2019-08-31 07:50 | NUR ---
UZMA JulianI.D) RETURNED CALL AND AWARE OF PT'S LATEST CONDITION AND WITH NEW ORDERS CARRIED OUT.
[2019-08-31 08:00] VITALS: BP 110/75
[2019-08-31] MEDS: ACIDOPHILUS/BULGARICUS CHEW TAB GT SCH ×2 (08:21→20:59)
[2019-08-31] MEDS: POLYVINYL ALCOHOL OPHT DROPS 15 ML BOTTLE EACHEYE SCH ×4 (08:21→20:59)
[2019-08-31] MEDS: DOCUSATE SODIUM 100 MG/10 ML LIQUID UDC GT SCH (08:21)
[2019-08-31] MEDS: BACLOFEN 20 MG TABLET GT SCH ×3 (08:21→20:59)
[2019-08-31] MEDS: NUTRISOURCE FIBER 4 GM PACKET GT SCH (08:22)
[2019-08-31] MEDS: GEMFIBROZIL 600 MG TABLET GT SCH ×2 (08:22→20:59)
[2019-08-31] MEDS: CHLORHEXIDINE GLUCONATE 4% TOP SOL 118 ML TP SCH ×2 (08:23)
[2019-08-31] MEDS: PROTEIN SUPPLEMENT (PROSTAT) 30 ML LIQUID GT SCH ×2 (08:23→20:59)
[2019-08-31] MEDS: VITAMINS A AND D OINT TP SCH ×2 (08:23→20:59)
[2019-08-31] MEDS: COD LIVER OIL/ZINC OXIDE OINT 113 GM TUBE TP SCH ×2 (08:23→20:59)
[2019-08-31] MEDS: PHENOBARBITAL 32.4 MG TABLET GT SCH ×2 (08:23→20:59)
[2019-08-31] MEDS: ACETAMINOPHEN 650 MG/20 ML UDC- SA PATIENTS-FEVER ONLY GT PRN ×3 (08:24→18:36)
[2019-08-31] MEDS: HYDROGEN PEROXIDE 3% 118 ML BOTTLE TP SCH ×2 (08:47→20:57)
[2019-08-31] MEDS ORDERED: PHENOBARBITAL 32.4 MG TABLET PO ONE (09:00)
[2019-08-31 09:06] LABS: BASOPHILS % (AUTO) 0.1 % (0.0-2.0); EOSINOPHILS % (AUTO) 0.1 % (0.0-7.0); HEMATOCRIT 43.9 % (36.7-47.1); HEMOGLOBIN 14.7 g/dL (12.5-16.3); LYMPHOCYTES # (AUTO) 0.5 K/uL (20.0-40.0); LYMPHOCYTES % (AUTO) 2.4 % (20.5-51.5); MEAN CORPUSCULAR HEMOGLOBIN 32.2 uug (23.8-33.4); MEAN CORPUSCULAR HGB CONC 34 g/dL (32.5-36.3); MONOCYTES # (AUTO) 2.1 K/uL (2.0-10.0); MONOCYTES % (AUTO) 10.4 % (0.0-11.0); NEUTROPHILS # (AUTO) 17.9 K/uL (1.8-8.9); PLATELET COUNT (AUTO) 151 K/uL (152-348); RED BLOOD CELL COUNT(AUTO) 4.57 MIL/uL (4.06-5.63); WHITE BLOOD COUNT (AUTO) 20.5 K/uL (3.6-10.2)
[2019-08-31 09:09] LABS: CARBON DIOXIDE 26 mmol/L (21-32); CHLORIDE 99 mmol/L (98-107); CREATININE 0.4 mg/dL (0.6-1.3); GLUCOSE 141 mg/dL (74-106); POTASSIUM 5.1 mmol/L (3.5-5.1); UREA NITROGEN, BLOOD 11 mg/dL (7-18)
[2019-08-31 09:13] LABS: *BILIRUBIN,URIN 1+ (NEGATIVE); *BLOOD, URINE 2+ (NEGATIVE); *CLARITY,URINE CLOUDY (CLEAR); *COLOR,URINE DARK YELLOW (YELLOW); *KETONES,URINE 1+ (NEGATIVE); LEUKOCYTE ESTERASE ,URINE 3+ (NEGATIVE); NITRITE, URINE POSITIVE (NEGATIVE); PH,URINE 8.5 (5.0-8.0); UGLUCOSE NEGATIVE (NEGATIVE)
[2019-08-31 09:45] VITALS: BP 103/62
--- NOTE | 2019-08-31 09:45 | NUR ---
V/S FOLLOW:TEMP .102.4f,HR 136X',B/P 103/62,O2 SAT 98%,RR20X',P/A 0/10,COOLING MEASURES ON GOING,CLOSELY MONITORED WITH FREQUENT VISUAL CHECKS.
[2019-08-31] MEDS ORDERED: VANCOMYCIN IV 1,250 MG in IV DEXTROSE 5% 250 ML IV SCH (09:47)
[2019-08-31] MEDS ORDERED: CEFTRIAXONE 1 G in IV DEXTROSE 5% 50 ML IV SCH (10:00)
--- NOTE | 2019-08-31 10:00 | NUR ---
PT. WAS SEEN AND EXAMINED BY UZMA Fan.Goran) AND WITH NEW ORDERS CARRIED OUT,AWARE OF LACTIC ACID LEVEL 2.8 AND SHE ASKED TO F/U WITH PRIMARY MD.
[2019-08-31 10:12] LABS: BACTERIA,URINE MANY /HPF (NONE SEEN); SQUAMOUS EPITHELIAL CELL,UR FEW /HPF (NONE SEEN); WBC,URINE 20-50 /HPF (0-3)
[2019-08-31 10:14] LABS: URINE AMORPHOUS PHOSPHATES MODERATE /HPF
--- NOTE | 2019-08-31 11:00 | NUR ---
CALLED BUT NOT ARMATURE BALANCER AND (ARMATURE BALANCER FOR TRIPP ) WAS CALLED AND AWARE OF PT'S LATEST CONDITION AND LAB RESULTS AND TX AND IN AGREEMENT WITH IT AND ORDERS CARRIED OUT.
[2019-08-31 11:54] LABS: BILIRUBIN,DIRECT 0.2 mg/dL (0.0-0.2); BILIRUBIN,TOTAL 0.5 mg/dL (0.2-1.0)
[2019-08-31] MEDS ORDERED: IV NS 1000 ML 1,000 ML IV PRN (12:00)
[2019-08-31] MEDS: JEVITY 1.2 1000 ML LIQUID GT PRN (12:04)
[2019-08-31 12:47] VITALS: BP 103/62
--- NOTE | 2019-08-31 12:47 | NUR ---
UZMA STACYRADHA WAS CALLED AND AWARE OT LACTIC ACID 3.4 AND PT. WITH RECTAL TEMP 103F AND HR 150X' AND SHE WAS ASKED IF SHE WAS GOING TO ORDER ANOTHER IV ATB AND SHE STATED NO ,NOT YET AND IN MAIN TIME KEEP MONITORING PT. BUT IF IN NEXT FEW HOURS GETS WORST THEN CALLED HER BACK.
--- NOTE | 2019-08-31 12:56 | NUR ---
DR. PUTNAM(UROLOGIST) WAS CALLED AGAIN AND MESSAGE LEFT THAT PT. WAS BY PASSING URINE WITH F/C 12X10 AND ON TX FOR UTI AND FEVER AWAITING FOR CALL BACK.
--- NOTE | 2019-08-31 13:01 | NUR ---
DR.MALHOTRA SHUKLA CALLED BACK AND ASKED TO HAVE UROLOGY TRAY READY AND THAT HE WILL COME BY TODAY.
--- NOTE | 2019-08-31 13:03 | NUR ---
MESSAGE LEFT TO PT'S MOTHER RE: PT'S CONDITION AND STILL AWAITING FOR HER TO CALL BACK.
--- NOTE | 2019-08-31 14:27 | NUR ---
PT'S BROTHER AND SISTER WERE CALLED BUT UNABLE TO CONTACT THEM AND UNABLE TO LEAVE MESSAGE.
[2019-08-31 15:17] VITALS: BP 103/62
--- NOTE | 2019-08-31 16:30 | NUR ---
PT'S MOTHER CALLED BACK AND AWARE OF LATEST PT. CONDITION AND TX AND IN AGREEMENT WITH ORDERS AND THANKED THE [facility] STAFF FOR THE CARE AND TO KEEP HER INFORMED AND SHE STATED THAT SHE WILL VISIT LATER TODAY SOON SHE CAN.
--- NOTE | 2019-08-31 18:30 | NUR ---
UZMA LYONS N.P (I.D) WAS CALLED AND NOTIFIED RE:PT. STILL HAS TEMP. 103 F AND HR 128X' AND STILL AWAITING FOR DR. PUTNAM (UROLOGIST) AND WITH NEW ORDERS CARRIED OUT.
--- NOTE | 2019-08-31 18:40 | NUR ---
RECHECKED PATIENT'S TEMP. 103. TYLENOL GIVEN AND COOLING MEASURE RENDERED. IN NO ACUTE OR RESPIRATORY DISTRESS. WILL CONTINUE TO MONITOR.
--- NOTE | 2019-08-31 19:14 | NUR ---
PHARMACY CLINICAL NOTES ( VANCOMYCIN DOSING) S: 44 YO MALE; [facility].ID ordered Vancomycin and cefepime as empiric therapy for fever(103), leucocytosis, and possible UTI. O: BUN/SCR 11/0.4, wbc 20.5 temp 103, dosing wt 83 kg , used scr 0.6 for calculation, T 1/2 6.19 hrs A/P: Will dose Vancomycin as 1250 mg q8h first dose tonight at 2200. Plan to order vanco trough prior to 4th dose (not ordered yet). RX will continue to follow renal fxn and levels and adjust the dose as necessary.
--- NOTE | 2019-08-31 20:22 | NUR ---
(Urologist) was here and he was able to changed maguire catheter; same size [place]alander #16, Patient was able to tolerate the procedure, noted with some hematuria, Irrigated maguire catheter and is draining with pinkish colored urine, kept clean and comfortable, will continue monitor.
[2019-08-31 20:32] VITALS: BP 100/76
[2019-08-31] MEDS: OMEGA-3 FATTY ACIDS/FISH OIL CAPSULE GT SCH (20:59)
[2019-08-31] MEDS: CHOLECALCIFEROL 1,000 UNIT TABLET GT SCH (20:59)
[2019-08-31] MEDS: ENOXAPARIN SODIUM 40 MG/0.4 ML DISP.SYRIN SQ SCH (21:00)
[2019-08-31] MEDS: CEFEPIME HCL 1 G in IV DEXTROSE 5% 50 ML IV SCH (21:06)
[2019-08-31] MEDS: VANCOMYCIN IV 1,250 MG in IV DEXTROSE 5% 250 ML IV SCH (22:00)
--- NOTE | 2019-08-31 23:00 | NUR ---
Started on Vancomycin IV and Cefepime for fever, Leukocytosis, and UTI, no adverse reactions noted, still with on and off temperature, on cooling measures, Tylenol given as ordered, fluids given as ordered, on IV hydration NS at 50ml/Hr X 24 hours infusing well on Right hand. No hematuria noted, maguire catheter is draining well to an shiraz yellow urine, good jannet care rendered, kept clean and comfortable.
[2019-09-01] MEDS: ALBUTEROL SULFATE 1.25 MG/3 ML NEBU NEB SCH ×2 (00:45→08:15)
[2019-09-01] MEDS: IPRATROPIUM BROMIDE 0.5 MG/2.5 ML NEBU NEB SCH ×2 (00:45→08:15)
[2019-09-01] MEDS: VALPROIC ACID 250 MG/5 ML LIQUID UDC GT SCH (05:32)
[2019-09-01] MEDS: PANTOPRAZOLE ORAL SUSPENSION 40 MG SUSPDR.PKT GT SCH (05:32)
[2019-09-01] MEDS: VANCOMYCIN IV 1,250 MG in IV DEXTROSE 5% 250 ML IV SCH (06:06)
--- NOTE | 2019-09-01 07:01 | NUR ---
Patient temperature is now 98.1, no signs of any distress noted, remains IV hydration and Vancomycin IV is infusing well on right hand, no infiltration noted on the IV site. Patient is sleeping, will continue monitor.
--- NOTE | 2019-09-01 07:25 | NUR ---
DR. RODARTE WAS PAGED.
[2019-09-01 07:29] LABS: BASOPHILS # (AUTO) 0.2 K/uL (0.0-8.0); LYMPHOCYTES # (AUTO) 0.8 K/uL (20.0-40.0); MEAN CORPUSCULAR HEMOGLOBIN 31.8 uug (23.8-33.4); MEAN CORPUSCULAR HGB CONC 34 g/dL (32.5-36.3); MEAN CORPUSCULAR VOLUME 94.7 fL (73.0-96.2)
[2019-09-01 07:35] LABS: BASOPHILS % (AUTO) 0.7 % (0.0-2.0); LYMPHOCYTES % (AUTO) 2.7 % (20.5-51.5); MONOCYTES # (AUTO) 2.8 K/uL (2.0-10.0); MONOCYTES % (AUTO) 8.9 % (0.0-11.0); NEUTROPHILS # (AUTO) 27.9 K/uL (1.8-8.9); NEUTROPHILS % (AUTO) 87.7 % (38.5-71.5); PLATELET COUNT (AUTO) 143 K/uL (152-348); RED BLOOD CELL COUNT(AUTO) 4.12 MIL/uL (4.06-5.63)
[2019-09-01 07:39] LABS: HEMOGLOBIN 13.1 g/dL (12.5-16.3); WHITE BLOOD COUNT (AUTO) 31.7 K/uL (3.6-10.2)
[2019-09-01 08:00] VITALS: BP 85/45
[2019-09-01 08:04] VITALS: BP 93/53
--- NOTE | 2019-09-01 08:05 | NUR ---
V/S AT THIS TIME: TEMP 102.4F RECTAL TEMPERATURE ,RR 22X',B/P 93/53,HR 142X'O2 SAT 94% P/A 0/10. COOLONG MEASURES CONTINUED AND BED BATH GIVEN AND IV ATB CEFEPIME GIVEN AT THIS TIME AND NO A/R NOTED,RT HAND PERIPHERAL SALINE LOCK #22 INTACT AND PATENT.BLADDER SCAN DONE AND NOTED NO RESUDUAL.F/C 16X10 DRAINING YELLOW URINE NOW.
--- NOTE | 2019-09-01 08:05 | NUR ---
NO S/S OF RESPIRATORY DISTRESS BUT FIO2 AT 40% JUST NOW PER RT D/T O2 SAT 93-94% ,NO CYANOSIS .PT. HAD A SMALL BM AND NO DIARRHEA NOTED.SKIN WITH NO PRESSURE SORES OR SKIN BREAKS AND CHRONIC FOLLICULITIS ON ON NECK MOSTLY ON ON GOING LOCAL TX FOR MAINTENANCE.
[2019-09-01] MEDS: CEFEPIME HCL 1 G in IV DEXTROSE 5% 50 ML IV SCH (08:08)
[2019-09-01] MEDS: COD LIVER OIL/ZINC OXIDE OINT 113 GM TUBE TP SCH (08:11)
[2019-09-01] MEDS: BACLOFEN 20 MG TABLET GT SCH (08:11)
[2019-09-01] MEDS: POLYVINYL ALCOHOL OPHT DROPS 15 ML BOTTLE EACHEYE SCH (08:11)
[2019-09-01] MEDS: PROTEIN SUPPLEMENT (PROSTAT) 30 ML LIQUID GT SCH (08:11)
[2019-09-01] MEDS: DOCUSATE SODIUM 100 MG/10 ML LIQUID UDC GT SCH (08:11)
[2019-09-01] MEDS: NUTRISOURCE FIBER 4 GM PACKET GT SCH (08:11)
[2019-09-01] MEDS: ACIDOPHILUS/BULGARICUS CHEW TAB GT SCH (08:11)
[2019-09-01] MEDS: PHENOBARBITAL 32.4 MG TABLET GT SCH (08:11)
[2019-09-01] MEDS: GEMFIBROZIL 600 MG TABLET GT SCH (08:11)
[2019-09-01] MEDS: CHLORHEXIDINE GLUCONATE 4% TOP SOL 118 ML TP SCH ×2 (08:11→08:12)
[2019-09-01] MEDS: ACETAMINOPHEN 650 MG/20 ML UDC- SA PATIENTS-FEVER ONLY GT PRN (08:12)
[2019-09-01] MEDS: VITAMINS A AND D OINT TP SCH (08:12)
[2019-09-01 08:16] LABS: BAND % (MANUAL) 29 % (0-10); EOSINOPHILS % (MANUAL) 1 % (0-8); LYMPHOCYTES % (MANUAL) 3 % (20-40); METAMYELOCYTES % 7 % (0-1); MONOCYTES % (MANUAL) 6 % (2-10); MYELOCYTES % 1 % (0-0); NEUTROPHILS % (MANUAL) 53 % (42-75)
--- NOTE | 2019-09-01 08:44 | NUR ---
DR. PLAZA WAS PAGED .
--- NOTE | 2019-09-01 08:55 | NUR ---
PHARMACY CLINICAL NOTES ( VANCOMYCIN DOSING) S: To continue vanco dosing for this 44 YO male; resident of [facility] for fever(103), leucocytosis, and possible UTI. O: BUN/SCR 11/0.4 (08/30), wbc 31.7 temp 98.1 wt 83 kg ht 183 cm A/P: Will continue same dose of Vancomycin 1250 mg IVPB q8h for today. 3rd dose today at 1400. Plan to order vanco trough prior to 4th dose (ordered for 08/31 at 2130- RN has been informed to hold 2200 dose if vanco trough level is above 20 mcg/ml). Pharmacy shall review the level in am & adjust the dose if needed. Will follow.
[2019-09-01] MEDS: HYDROGEN PEROXIDE 3% 118 ML BOTTLE TP SCH (09:43)
--- NOTE | 2019-09-01 10:00 | NUR ---
PT. WAS TRANSFERRED TO ER AT THIS TIME ,REPORT WAS GIVEN TO BINH JONES AND MD العلي.NURSING FRAME STRAIGHTENER MARCELLA AND CAN PUSHER CHETAN HOLLAND AWARE.
--- NOTE | 2019-09-01 10:00 | NUR ---
PT'S MOTHER AWARE OF TRANSFER TO ER AND IN AGREEMENT WITH ORDER.
[2019-09-01] MEDS ORDERED: ACID1TAB12 GT (10:29)
[2019-09-01] MEDS ORDERED: ALBU2.5V38 NEB ×2 (10:29)
[2019-09-01] MEDS ORDERED: HYDROCODONE/APAP 5-325MG TABLET PO PRN (10:30)
[2019-09-01] MEDS ORDERED: ONDANSETRON 4 MG/2 ML VIAL IV PRN (10:30)
[2019-09-01] MEDS ORDERED: Z GUARD REMEDY PASTE 57 GM TUBE TOP PRN (10:30)
[2019-09-01] MEDS ORDERED: MAGNESIUM HYDROXIDE 30 ML LIQUID UDC PO PRN (10:30)
[2019-09-01] MEDS ORDERED: IV NS 1000 ML 1,000 ML IV SCH (10:30)
[2019-09-01] MEDS ORDERED: ACETAMINOPHEN 325 MG TABLET PO PRN (10:30)
[2019-09-01] MEDS ORDERED: BISA10SU61 RC (10:38)
[2019-09-01] MEDS ORDERED: CEFE1PIG3 IV (10:38)
[2019-09-01] MEDS ORDERED: CHLO25TA13 GT (10:42)
[2019-09-01] MEDS ORDERED: ENOX40DI SQ (10:49)
[2019-09-01] MEDS ORDERED: GEMF600T GT (10:50)
[2019-09-01] MEDS ORDERED: HYDR1SOL MC ×2 (10:50)
[2019-09-01] MEDS ORDERED: IPRA0.2S48 NEB ×2 (10:51)
[2019-09-01] MEDS ORDERED: GUAR1PAC4 GT (10:54)
[2019-09-01] MEDS ORDERED: VANC1PLA9 IV (10:58)
[2019-09-01] MEDS ORDERED: PROSTAT GT (10:58)
[2019-09-01] MEDS ORDERED: CHLORHEXIDINE TOP (11:01)
[2019-09-01] MEDS ORDERED: VITAMIN A&D OINT TOP (11:03)
--- NOTE | 2019-09-02 11:43 | NUR ---
TOMY followed up with Teo Aleman today, to check on status of DME that Teo has assessed patient for on 08/25/2019. TOMY waiting to hear back from Teo.
--- NOTE | 2019-09-02 12:05 | NUR ---
TOMY received a response back from Teo Aleman stating that the parts for patient's wheelchair have been ordered, and that he would notify this SW as soon as he receives them in order to then schedule a day/time to come in to see the patient again and set up the adjustments to the wheelchair.
== END 2019-09-01 10:00 | disposition short-term general hospital (02) | DRG 189 ==
LOC: SA
PROVIDERS: ADMIT Internal Medicine; ATTEND Internal Medicine
PROC: 0T7D7ZZ Dilation of Urethra, Via Natural or Artificial Opening (ICD-10-PCS; principal; 2019-08-05)
PROC: 0T2BX0Z Change Drainage Device in Bladder, External Approach (ICD-10-PCS; 2019-08-31)
DX: J96.11 Chronic respiratory failure with hypoxia (principal); G93.1 Anoxic brain damage, not elsewhere classified; R40.3 Persistent vegetative state; N39.0 Urinary tract infection, site not specified; Z93.0 Tracheostomy status; R13.10 Dysphagia, unspecified; Z66 Do not resuscitate; K21.9 Gastro-esophageal reflux disease without esophagitis; K62.89 Other specified diseases of anus and rectum; Z87.19 Personal history of other diseases of the digestive system; M24.50 Contracture, unspecified joint; G40.909 Epilepsy, unspecified, not intractable, without status epilepticus; E78.1 Pure hyperglyceridemia; I11.0 Hypertensive heart disease with heart failure; I50.9 Heart failure, unspecified; G62.9 Polyneuropathy, unspecified; L70.0 Acne vulgaris; Z93.1 Gastrostomy status; Z86.74 Personal history of sudden cardiac arrest; Z88.1 Allergy status to other antibiotic agents; Z87.440 Personal history of urinary (tract) infections; L73.9 Follicular disorder, unspecified; N35.912 Unspecified bulbous urethral stricture, male; T41.45 Adverse effect of unspecified anesthetic; I10 Essential (primary) hypertension; B96.4 Proteus (mirabilis) (morganii) as the cause of diseases classified elsewhere; R33.9 Retention of urine, unspecified
CPT/HCPCS: 36415; 70030-TC; 71045; 83605; 85025; 87040; 87077; 87086; 94640; 94664; A4663; C1758; J0692; J0696; J1650; J3590; J7030; J7060

== ENCOUNTER 2019-09-01 09:51 | Inpatient (IN) | payer OTHER ==
[~2019-09-01] VITALS: Ht 182.9 cm; Wt 99.8 kg
[~2019-09-01 09:51] MED LIST changes: -ACET160E61 GT; -BACL20TA GT; -DOCU-141 GT; -HEPA500014 SQ; -OMEG1CAP GT; -PANT40TA2 GT; -PHEN60TA11 GT; +PHENOBARBITAL 32.4 MG TABLET PO ONE; -POLY15DR27 EACHEYE; -TOLT2TAB2 GT; -VALP250S3 GT
[2019-09-01] MEDS ORDERED: ACETAMINOPHEN 325 MG SUPP RC ONE ×2 (10:30→17:45)
[2019-09-01] MEDS ORDERED: ACETAMINOPHEN 650 MG SUPP.RECT RC ONE ×4 (10:30→17:45)
[2019-09-01] MEDS ORDERED: MEROPENEM 1 G in IV NORMAL SALINE 100 ML IV ONE ×2 (10:30→22:51)
[2019-09-01] MEDS ORDERED: Medication Not On Formulary EA (Acetaminophen 650 MG) GT PRN (10:30)
[2019-09-01] MEDS ORDERED: IV NORMAL SALINE 1000 ML BAG IV ONE (10:30)
[2019-09-01] MEDS ORDERED: MEROPENEM 1GM/NS 100ML IVPB **ER PYXIS ONLY IV ONE (10:42)
[2019-09-01] MEDS ORDERED: ACETAMINOPHEN 650 MG/20.3 ML LIQUID UDC GT PRN (10:45)
[2019-09-01] MEDS ORDERED: MAGNESIUM HYDROXIDE 30 ML LIQUID UDC GT PRN (10:45)
[2019-09-01] MEDS ORDERED: ONDANSETRON 4 MG/2 ML VIAL IV PRN (10:45)
[2019-09-01] MEDS ORDERED: Z GUARD REMEDY PASTE 57 GM TUBE TOP PRN (11:00)
[2019-09-01] MEDS ORDERED: LINEZOLID IV 600 MG in PREMIXED 1 EACH IV ONE (11:15)
[2019-09-01] MEDS ORDERED: ACETAMINOPHEN 325 MG SUPP ONE ×2 (11:26→17:05)
[2019-09-01 11:53] LABS: BASOPHILS # (AUTO) 0.1 K/uL (0.0-8.0); BASOPHILS % (AUTO) 0.2 % (0.0-2.0); EOSINOPHILS # (AUTO) 0.1 K/uL (0.0-0.7); EOSINOPHILS % (AUTO) 0.5 % (0.0-7.0); HEMATOCRIT 35.7 % (36.7-47.1); HEMOGLOBIN 11.9 g/dL (12.5-16.3); LYMPHOCYTES # (AUTO) 0.7 K/uL (20.0-40.0); MEAN CORPUSCULAR HEMOGLOBIN 31.6 uug (23.8-33.4); MEAN CORPUSCULAR HGB CONC 33 g/dL (32.5-36.3); MEAN CORPUSCULAR VOLUME 94.9 fL (73.0-96.2); MONOCYTES # (AUTO) 2.2 K/uL (2.0-10.0); MONOCYTES % (AUTO) 8.9 % (0.0-11.0); NEUTROPHILS # (AUTO) 21.9 K/uL (1.8-8.9); NEUTROPHILS % (AUTO) 87.4 % (38.5-71.5); PLATELET COUNT (AUTO) 121 K/uL (152-348); RED BLOOD CELL COUNT(AUTO) 3.76 MIL/uL (4.06-5.63); WHITE BLOOD COUNT (AUTO) 25.1 K/uL (3.6-10.2)
[2019-09-01 12:01] LABS: CREATININE 0.7 mg/dL (0.6-1.3); POTASSIUM 4.4 mmol/L (3.5-5.1)
[2019-09-01 12:07] LABS: BILIRUBIN,DIRECT 0.1 mg/dL (0.0-0.2); BILIRUBIN,TOTAL 0.5 mg/dL (0.2-1.0); TOTAL PROTEIN, SERUM 6.2 g/dL (6.4-8.2)
[2019-09-01 12:26] LABS: BAND % (MANUAL) 27 % (0-10); LYMPHOCYTES % (MANUAL) 3 % (20-40); METAMYELOCYTES % 14 % (0-1); MONOCYTES % (MANUAL) 7 % (2-10); MYELOCYTES % 1 % (0-0); NEUTROPHILS % (MANUAL) 48 % (42-75)
[2019-09-01] MEDS: BACLOFEN 20 MG TABLET GT SCH ×2 (13:00→22:50)
[2019-09-01] MEDS: POLYVINYL ALCOHOL OPHT DROPS 15 ML BOTTLE EACHEYE SCH ×3 (13:00→21:00)
[2019-09-01] MEDS ORDERED: POLYVINYL ALCOHOL OPHT DROPS 15 ML BOTTLE EACHEYE SCH (13:00)
[2019-09-01] MEDS ORDERED: ALBUTEROL SULFATE 2.5 MG/3 ML NEBU NEB ONE (13:45)
[2019-09-01] MEDS ORDERED: NOREPINEPHRINE BITARTRATE 8 MG in IV DEXTROSE 5% 500 ML IV ONE (13:45)
[2019-09-01] MEDS ORDERED: Medication Not On Formulary EA (Valproate Sodium (Valproic Acid) 500 MG) GT SCH (14:00)
[2019-09-01] MEDS ORDERED: ALBUTEROL SULFATE 2.5 MG/3 ML NEBU ONE (14:12)
[2019-09-01 16:15] LABS: *BILIRUBIN,URIN NEGATIVE (NEGATIVE); *CLARITY,URINE CLEAR (CLEAR); *COLOR,URINE YELLOW (YELLOW); *KETONES,URINE NEGATIVE (NEGATIVE); *UROBILINOGEN,URINE 0.2 E.U./dl (NORMAL); LEUKOCYTE ESTERASE ,URINE 1+ (NEGATIVE); NITRITE, URINE NEGATIVE (NEGATIVE); PH,URINE 5.5 (5.0-8.0); UGLUCOSE NEGATIVE (NEGATIVE)
[2019-09-01 16:18] LABS: *BLOOD, URINE TRACE (NEGATIVE)
[2019-09-01 16:22] LABS: BACTERIA,URINE 2+ /HPF (NONE SEEN); RBC,URINE 0-3 /HPF (0-3); WBC,URINE 20-50 /HPF (0-3)
[2019-09-01] MEDS ORDERED: ACETAMINOPHEN 650 MG/20 ML UDC- SA PATIENTS-PAIN ONLY GT PRN (19:30)
[2019-09-01] MEDS ORDERED: ACETAMINOPHEN 650 MG SUPP.RECT RC PRN (20:45)
[2019-09-01 21:00] VITALS: BP 96/59
[2019-09-01] MEDS ORDERED: DOCUSATE SODIUM 100 MG CAPSULE PO SCH (21:00)
[2019-09-01] MEDS ORDERED: TOLTERODINE 2 MG TABLET GT SCH (21:00)
[2019-09-01 22:00] VITALS: BP 119/62
[2019-09-01] MEDS ORDERED: MEROPENEM 1 G in IV NORMAL SALINE 100 ML IV SCH (22:00)
[2019-09-01] MEDS ORDERED: VALPROATE SODIUM GT SCH (22:00)
[2019-09-01] MEDS ORDERED: MEROPENEM 1 G VIAL IV ONE (22:36)
[2019-09-01] MEDS: OMEGA-3 FATTY ACIDS/FISH OIL CAPSULE GT SCH (22:50)
[2019-09-01] MEDS: VALPROIC ACID 250 MG/5 ML LIQUID UDC GT SCH (22:51)
[2019-09-01 23:00] VITALS: BP 129/93
[2019-09-01] MEDS: IV NS 1000 ML 1,000 ML IV PRN (23:22)
[2019-09-01] MEDS ORDERED: LINEZOLID IV 600 MG in PREMIXED 1 EACH IV SCH (23:58)
[2019-09-02] VITALS (83 sets, daily range): BP systolic 18–170; BP diastolic 36–136
[2019-09-02] MEDS: NOREPINEPHRINE BITARTRATE 8 MG in IV DEXTROSE 5% 500 ML IV PRN ×2 (01:26→14:55)
[2019-09-02 05:03] LABS: BASOPHILS # (AUTO) 0.1 K/uL (0.0-8.0); BASOPHILS % (AUTO) 0.3 % (0.0-2.0); HEMATOCRIT 34.4 % (36.7-47.1); HEMOGLOBIN 11.5 g/dL (12.5-16.3); LYMPHOCYTES % (AUTO) 4.3 % (20.5-51.5); MEAN CORPUSCULAR HEMOGLOBIN 31.8 uug (23.8-33.4); MEAN CORPUSCULAR HGB CONC 34 g/dL (32.5-36.3); MEAN CORPUSCULAR VOLUME 94.9 fL (73.0-96.2); MONOCYTES # (AUTO) 2.1 K/uL (2.0-10.0); MONOCYTES % (AUTO) 8.4 % (0.0-11.0); NEUTROPHILS # (AUTO) 21.4 K/uL (1.8-8.9); PLATELET COUNT (AUTO) 141 K/uL (152-348); RED BLOOD CELL COUNT(AUTO) 3.63 MIL/uL (4.06-5.63); WHITE BLOOD COUNT (AUTO) 24.6 K/uL (3.6-10.2)
[2019-09-02 05:07] LABS: CARBON DIOXIDE 28 mmol/L (21-32); CHLORIDE 98 mmol/L (98-107); CREATININE 0.4 mg/dL (0.6-1.3); GLUCOSE 155 mg/dL (74-106); MAGNESIUM 1.7 mg/dL (1.8-2.4); POTASSIUM 3.3 mmol/L (3.5-5.1); UREA NITROGEN, BLOOD 18 mg/dL (7-18)
[2019-09-02] MEDS: VALPROIC ACID 250 MG/5 ML LIQUID UDC GT SCH ×3 (05:56→22:01)
[2019-09-02] MEDS: PANTOPRAZOLE ORAL SUSPENSION 40 MG SUSPDR.PKT GT SCH (06:09)
[2019-09-02] MEDS: MEROPENEM 1 G in IV NORMAL SALINE 100 ML IV SCH ×3 (08:24→23:42)
[2019-09-02] MEDS: LINEZOLID IV 600 MG in PREMIXED 1 EACH IV SCH ×2 (08:24→19:59)
[2019-09-02] MEDS: DOCUSATE SODIUM 100 MG/10 ML LIQUID UDC GT SCH (08:34)
[2019-09-02] MEDS: BACLOFEN 20 MG TABLET GT SCH ×3 (08:34→20:56)
[2019-09-02] MEDS: ACETAMINOPHEN 650 MG/20.3 ML LIQUID UDC GT PRN ×2 (08:35→20:00)
[2019-09-02] MEDS ORDERED: PANTOPRAZOLE SODIUM 40 MG TABLET.DR PO SCH (09:00)
[2019-09-02] MEDS: POLYVINYL ALCOHOL OPHT DROPS 15 ML BOTTLE EACHEYE SCH ×4 (09:55→20:57)
[2019-09-02] MEDS ORDERED: POTASSIUM CHLORIDE 20 MEQ POWDER PACKET GT ONE (12:45)
[2019-09-02] MEDS: MAGNESIUM SULFATE/D5W 100 ML IV SCH ×2 (14:06→14:55)
[2019-09-02] MEDS ORDERED: NEUTRA PHOS PACKET GT ONE (16:00)
[2019-09-02] MEDS: IV NS 1000 ML 1,000 ML IV PRN (16:16)
[2019-09-02] MEDS: OMEGA-3 FATTY ACIDS/FISH OIL CAPSULE GT SCH (20:57)
[2019-09-02] MEDS ORDERED: chlorproMAZINE 25 MG TABLET GT PRN (21:45)
[2019-09-02] MEDS ORDERED: BISACODYL 10 MG SUPP.RECT RC PRN (21:45)
[2019-09-03] VITALS (93 sets, daily range): BP systolic 77–141; BP diastolic 34–93
[2019-09-03] MEDS: ACETAMINOPHEN 650 MG/20.3 ML LIQUID UDC GT PRN ×2 (02:15→16:23)
[2019-09-03 05:16] LABS: ALANINE AMINOTRANSFERASE 18 U/L (16-63); ALKALINE PHOSPHATASE 79 U/L (50-136); ASPARTATE AMINOTRANSFERASE 15 U/L (15-37); BILIRUBIN,TOTAL 0.2 mg/dL (0.2-1.0); CARBON DIOXIDE 29 mmol/L (21-32); CHLORIDE 103 mmol/L (98-107); CREATININE 0.4 mg/dL (0.6-1.3); GLUCOSE 124 mg/dL (74-106); MAGNESIUM 1.8 mg/dL (1.8-2.4); PHOSPHOROUS 2.1 mg/dL (2.5-4.9); POTASSIUM 3.2 mmol/L (3.5-5.1); TOTAL PROTEIN, SERUM 5.8 g/dL (6.4-8.2); UREA NITROGEN, BLOOD 11 mg/dL (7-18)
[2019-09-03 05:27] LABS: BASOPHILS % (AUTO) 0.4 % (0.0-2.0); EOSINOPHILS # (AUTO) 0.1 K/uL (0.0-0.7); EOSINOPHILS % (AUTO) 0.6 % (0.0-7.0); HEMATOCRIT 33.6 % (36.7-47.1); HEMOGLOBIN 11.4 g/dL (12.5-16.3); LYMPHOCYTES # (AUTO) 1.1 K/uL (20.0-40.0); LYMPHOCYTES % (AUTO) 9.1 % (20.5-51.5); MEAN CORPUSCULAR HGB CONC 34 g/dL (32.5-36.3); MEAN CORPUSCULAR VOLUME 94.2 fL (73.0-96.2); MONOCYTES # (AUTO) 1.2 K/uL (2.0-10.0); NEUTROPHILS # (AUTO) 9.3 K/uL (1.8-8.9); NEUTROPHILS % (AUTO) 79.9 % (38.5-71.5); PLATELET COUNT (AUTO) 110 K/uL (152-348); RED BLOOD CELL COUNT(AUTO) 3.57 MIL/uL (4.06-5.63); WHITE BLOOD COUNT (AUTO) 11.6 K/uL (3.6-10.2)
[2019-09-03] MEDS: IV NS 1000 ML 1,000 ML IV PRN ×2 (05:43→16:52)
[2019-09-03] MEDS: PANTOPRAZOLE ORAL SUSPENSION 40 MG SUSPDR.PKT GT SCH (05:43)
[2019-09-03] MEDS: VALPROIC ACID 250 MG/5 ML LIQUID UDC GT SCH ×3 (05:43→21:01)
[2019-09-03 06:48] LABS: CHOLESTEROL 90 mg/dL (<200); TRIGLYCERIDES 166 MG/DL (30-150)
[2019-09-03 07:05] LABS: HDL CHOLESTEROL 10 mg/dL (40-60)
[2019-09-03] MEDS: MEROPENEM 1 G in IV NORMAL SALINE 100 ML IV SCH ×3 (08:37→23:04)
[2019-09-03] MEDS: LINEZOLID IV 600 MG in PREMIXED 1 EACH IV SCH (08:37)
[2019-09-03] MEDS: DOCUSATE SODIUM 100 MG/10 ML LIQUID UDC GT SCH (09:00)
[2019-09-03] MEDS: PHENOBARBITAL 32.4 MG TABLET GT SCH ×2 (09:11→20:15)
[2019-09-03] MEDS: ACIDOPHILUS/BULGARICUS CHEW TAB GT SCH ×2 (09:11→20:15)
[2019-09-03] MEDS: BACLOFEN 20 MG TABLET GT SCH ×3 (09:12→20:15)
[2019-09-03] MEDS: GEMFIBROZIL 600 MG TABLET GT SCH ×2 (09:12→20:15)
[2019-09-03] MEDS: POLYVINYL ALCOHOL OPHT DROPS 15 ML BOTTLE EACHEYE SCH ×4 (09:13→20:14)
[2019-09-03] MEDS: NUTRISOURCE FIBER 4 GM PACKET GT SCH (09:14)
[2019-09-03] MEDS ORDERED: HYDROGEN PEROXIDE 3% 118 ML BOTTLE TP PRN (12:00)
[2019-09-03] MEDS: POTASSIUM PHOSPHATE MM 7.5 MMOL in IV DEXTROSE 5% 100 ML IV SCH ×2 (12:05→14:27)
[2019-09-03] MEDS: PROTEIN SUPPLEMENT (PROSTAT) 30 ML LIQUID GT SCH ×2 (14:26→20:15)
[2019-09-03] MEDS: NOREPINEPHRINE BITARTRATE 8 MG in IV DEXTROSE 5% 500 ML IV PRN (16:18)
[2019-09-03] MEDS: OMEGA-3 FATTY ACIDS/FISH OIL CAPSULE GT SCH (20:16)
[2019-09-03] MEDS: ENOXAPARIN SODIUM 40 MG/0.4 ML DISP.SYRIN SQ SCH (20:17)
[2019-09-03] MEDS: HYDROGEN PEROXIDE 3% 118 ML BOTTLE TP SCH (21:02)
[2019-09-04] VITALS (91 sets, daily range): BP systolic 82–158; BP diastolic 26–98
[2019-09-04] MEDS: ACETAMINOPHEN 650 MG/20.3 ML LIQUID UDC GT PRN ×3 (00:24→17:16)
[2019-09-04 05:03] LABS: BASOPHILS % (AUTO) 0.2 % (0.0-2.0); EOSINOPHILS # (AUTO) 0.1 K/uL (0.0-0.7); EOSINOPHILS % (AUTO) 1.3 % (0.0-7.0); HEMATOCRIT 32.7 % (36.7-47.1); HEMOGLOBIN 11.2 g/dL (12.5-16.3); LYMPHOCYTES # (AUTO) 1.3 K/uL (20.0-40.0); LYMPHOCYTES % (AUTO) 15.7 % (20.5-51.5); MEAN CORPUSCULAR HEMOGLOBIN 32.1 uug (23.8-33.4); MEAN CORPUSCULAR HGB CONC 34 g/dL (32.5-36.3); MEAN CORPUSCULAR VOLUME 93.9 fL (73.0-96.2); MONOCYTES % (AUTO) 11.6 % (0.0-11.0); NEUTROPHILS % (AUTO) 71.2 % (38.5-71.5); PLATELET COUNT (AUTO) 139 K/uL (152-348); RED BLOOD CELL COUNT(AUTO) 3.48 MIL/uL (4.06-5.63); WHITE BLOOD COUNT (AUTO) 8.4 K/uL (3.6-10.2)
[2019-09-04 05:17] LABS: CARBON DIOXIDE 32 mmol/L (21-32); CHLORIDE 103 mmol/L (98-107); CREATININE 0.3 mg/dL (0.6-1.3); GLUCOSE 194 mg/dL (74-106); MAGNESIUM 1.6 mg/dL (1.8-2.4); PHOSPHOROUS 3.2 mg/dL (2.5-4.9); POTASSIUM 3.2 mmol/L (3.5-5.1); UREA NITROGEN, BLOOD 9 mg/dL (7-18)
[2019-09-04] MEDS: PANTOPRAZOLE ORAL SUSPENSION 40 MG SUSPDR.PKT GT SCH (05:32)
[2019-09-04] MEDS: VALPROIC ACID 250 MG/5 ML LIQUID UDC GT SCH ×3 (05:32→20:47)
[2019-09-04] MEDS: MEROPENEM 1 G in IV NORMAL SALINE 100 ML IV SCH (08:12)
[2019-09-04] MEDS: DOCUSATE SODIUM 100 MG/10 ML LIQUID UDC GT SCH (08:12)
[2019-09-04] MEDS: POLYVINYL ALCOHOL OPHT DROPS 15 ML BOTTLE EACHEYE SCH ×4 (08:12→20:44)
[2019-09-04] MEDS: GEMFIBROZIL 600 MG TABLET GT SCH ×2 (08:13→20:46)
[2019-09-04] MEDS: BACLOFEN 20 MG TABLET GT SCH ×3 (08:13→20:45)
[2019-09-04] MEDS: NUTRISOURCE FIBER 4 GM PACKET GT SCH (08:15)
[2019-09-04] MEDS: HYDROGEN PEROXIDE 3% 118 ML BOTTLE TP SCH ×2 (08:16→20:59)
[2019-09-04] MEDS: PROTEIN SUPPLEMENT (PROSTAT) 30 ML LIQUID GT SCH ×2 (08:16→20:56)
[2019-09-04] MEDS: PHENOBARBITAL 32.4 MG TABLET GT SCH ×2 (08:50→20:52)
[2019-09-04] MEDS: ACIDOPHILUS/BULGARICUS CHEW TAB GT SCH ×2 (08:50→20:53)
[2019-09-04] MEDS ORDERED: POTASSIUM CHLORIDE 20 MEQ POWDER PACKET GT ONE (10:00)
[2019-09-04] MEDS: MAGNESIUM SULFATE/D5W 100 ML IV SCH ×2 (10:02→10:53)
[2019-09-04] MEDS: JEVITY 1.2 1000 ML LIQUID GT PRN (10:03)
[2019-09-04] MEDS: HYDROCODONE/APAP 5-325MG TABLET GT PRN ×2 (13:39→21:23)
[2019-09-04] MEDS: NOREPINEPHRINE BITARTRATE 8 MG in IV DEXTROSE 5% 500 ML IV PRN (14:27)
[2019-09-04] MEDS: MIDODRINE HCL 5 MG TABLET PO SCH ×2 (15:29→21:03)
[2019-09-04] MEDS: OMEGA-3 FATTY ACIDS/FISH OIL CAPSULE GT SCH (20:52)
[2019-09-04] MEDS: ENOXAPARIN SODIUM 40 MG/0.4 ML DISP.SYRIN SQ SCH (20:54)
[2019-09-04] MEDS: CEFEPIME HCL 1 G in IV DEXTROSE 5% 50 ML IV SCH (21:03)
[2019-09-05] VITALS (74 sets, daily range): BP systolic 82–123; BP diastolic 47–80
[2019-09-05] MEDS: HYDROCODONE/APAP 5-325MG TABLET GT PRN (05:00)
[2019-09-05] MEDS: MIDODRINE HCL 5 MG TABLET PO SCH ×3 (05:04→21:25)
[2019-09-05] MEDS: VALPROIC ACID 250 MG/5 ML LIQUID UDC GT SCH ×3 (05:04→21:26)
[2019-09-05 05:10] LABS: BASOPHILS % (AUTO) 0.4 % (0.0-2.0); EOSINOPHILS # (AUTO) 0.1 K/uL (0.0-0.7); EOSINOPHILS % (AUTO) 1.6 % (0.0-7.0); HEMATOCRIT 33.8 % (36.7-47.1); HEMOGLOBIN 11.5 g/dL (12.5-16.3); LYMPHOCYTES # (AUTO) 0.9 K/uL (20.0-40.0); LYMPHOCYTES % (AUTO) 14.6 % (20.5-51.5); MEAN CORPUSCULAR HGB CONC 34 g/dL (32.5-36.3); MEAN CORPUSCULAR VOLUME 94.4 fL (73.0-96.2); MONOCYTES # (AUTO) 0.8 K/uL (2.0-10.0); NEUTROPHILS # (AUTO) 4.6 K/uL (1.8-8.9); NEUTROPHILS % (AUTO) 70.4 % (38.5-71.5); PLATELET COUNT (AUTO) 159 K/uL (152-348); RED BLOOD CELL COUNT(AUTO) 3.59 MIL/uL (4.06-5.63); WHITE BLOOD COUNT (AUTO) 6.5 K/uL (3.6-10.2)
[2019-09-05 05:32] LABS: ALANINE AMINOTRANSFERASE 17 U/L (16-63); ALKALINE PHOSPHATASE 84 U/L (50-136); ASPARTATE AMINOTRANSFERASE 13 U/L (15-37); BILIRUBIN,TOTAL 0.2 mg/dL (0.2-1.0); CARBON DIOXIDE 31 mmol/L (21-32); CHLORIDE 104 mmol/L (98-107); CREATININE 0.3 mg/dL (0.6-1.3); GLUCOSE 132 mg/dL (74-106); MAGNESIUM 1.8 mg/dL (1.8-2.4); POTASSIUM 4.2 mmol/L (3.5-5.1); TOTAL PROTEIN, SERUM 5.7 g/dL (6.4-8.2); UREA NITROGEN, BLOOD 10 mg/dL (7-18)
[2019-09-05] MEDS: PANTOPRAZOLE ORAL SUSPENSION 40 MG SUSPDR.PKT GT SCH (06:08)
[2019-09-05] MEDS: CEFEPIME HCL 1 G in IV DEXTROSE 5% 50 ML IV SCH ×3 (06:08→21:26)
[2019-09-05] MEDS: GEMFIBROZIL 600 MG TABLET GT SCH ×2 (08:47→20:55)
[2019-09-05] MEDS: POLYVINYL ALCOHOL OPHT DROPS 15 ML BOTTLE EACHEYE SCH ×4 (08:47→20:53)
[2019-09-05] MEDS: DOCUSATE SODIUM 100 MG/10 ML LIQUID UDC GT SCH (08:47)
[2019-09-05] MEDS: ACIDOPHILUS/BULGARICUS CHEW TAB GT SCH ×2 (08:47→20:53)
[2019-09-05] MEDS: BACLOFEN 20 MG TABLET GT SCH ×3 (08:47→20:55)
[2019-09-05] MEDS: PHENOBARBITAL 32.4 MG TABLET GT SCH ×2 (08:50→20:53)
[2019-09-05] MEDS: PROTEIN SUPPLEMENT (PROSTAT) 30 ML LIQUID GT SCH ×2 (08:50→21:11)
[2019-09-05] MEDS: HYDROGEN PEROXIDE 3% 118 ML BOTTLE TP SCH ×2 (08:50→20:57)
[2019-09-05] MEDS: NUTRISOURCE FIBER 4 GM PACKET GT SCH (08:50)
[2019-09-05] MEDS: NOREPINEPHRINE BITARTRATE 8 MG in IV DEXTROSE 5% 500 ML IV PRN ×2 (13:53→21:10)
[2019-09-05] MEDS: ACETAMINOPHEN 650 MG/20.3 ML LIQUID UDC GT PRN (19:37)
[2019-09-05] MEDS: OMEGA-3 FATTY ACIDS/FISH OIL CAPSULE GT SCH (20:53)
[2019-09-05] MEDS: MUPIROCIN 2% OINT 22 GM TUBE NS SCH (20:56)
[2019-09-05] MEDS: ENOXAPARIN SODIUM 40 MG/0.4 ML DISP.SYRIN SQ SCH (20:57)
[2019-09-05] MEDS: IV NORMAL SALINE 250 ML IV PRN (21:14)
[2019-09-06] VITALS (68 sets, daily range): BP systolic 93–125; BP diastolic 58–81
[2019-09-06] MEDS: MIDODRINE HCL 5 MG TABLET PO SCH ×3 (05:07→21:45)
[2019-09-06] MEDS: PANTOPRAZOLE ORAL SUSPENSION 40 MG SUSPDR.PKT GT SCH (05:07)
[2019-09-06] MEDS: VALPROIC ACID 250 MG/5 ML LIQUID UDC GT SCH ×3 (05:08→21:39)
[2019-09-06] MEDS: CEFEPIME HCL 1 G in IV DEXTROSE 5% 50 ML IV SCH ×3 (05:08→21:37)
[2019-09-06] MEDS: ACETAMINOPHEN 650 MG/20.3 ML LIQUID UDC GT PRN ×3 (05:09→22:49)
[2019-09-06 05:22] LABS: BASOPHILS % (AUTO) 0.5 % (0.0-2.0); EOSINOPHILS # (AUTO) 0.1 K/uL (0.0-0.7); EOSINOPHILS % (AUTO) 1.5 % (0.0-7.0); HEMATOCRIT 37.1 % (36.7-47.1); HEMOGLOBIN 12.5 g/dL (12.5-16.3); LYMPHOCYTES # (AUTO) 1.4 K/uL (20.0-40.0); LYMPHOCYTES % (AUTO) 15.3 % (20.5-51.5); MEAN CORPUSCULAR HEMOGLOBIN 31.8 uug (23.8-33.4); MEAN CORPUSCULAR HGB CONC 34 g/dL (32.5-36.3); MEAN CORPUSCULAR VOLUME 94.7 fL (73.0-96.2); MONOCYTES # (AUTO) 1.3 K/uL (2.0-10.0); MONOCYTES % (AUTO) 14.1 % (0.0-11.0); NEUTROPHILS # (AUTO) 6.3 K/uL (1.8-8.9); NEUTROPHILS % (AUTO) 68.6 % (38.5-71.5); PLATELET COUNT (AUTO) 303 K/uL (152-348); RED BLOOD CELL COUNT(AUTO) 3.92 MIL/uL (4.06-5.63); WHITE BLOOD COUNT (AUTO) 9.2 K/uL (3.6-10.2)
[2019-09-06 05:27] LABS: CARBON DIOXIDE 33 mmol/L (21-32); CHLORIDE 103 mmol/L (98-107); CREATININE 0.3 mg/dL (0.6-1.3); GLUCOSE 132 mg/dL (74-106); MAGNESIUM 1.8 mg/dL (1.8-2.4); PHOSPHOROUS 3.2 mg/dL (2.5-4.9); POTASSIUM 4.3 mmol/L (3.5-5.1); UREA NITROGEN, BLOOD 9 mg/dL (7-18)
[2019-09-06] MEDS: DOCUSATE SODIUM 100 MG/10 ML LIQUID UDC GT SCH (07:42)
[2019-09-06] MEDS: PHENOBARBITAL 32.4 MG TABLET GT SCH ×2 (07:42→21:45)
[2019-09-06] MEDS: BACLOFEN 20 MG TABLET GT SCH ×3 (07:42→21:37)
[2019-09-06] MEDS: ACIDOPHILUS/BULGARICUS CHEW TAB GT SCH ×2 (07:42→21:44)
[2019-09-06] MEDS: MUPIROCIN 2% OINT 22 GM TUBE NS SCH ×2 (07:43→21:34)
[2019-09-06] MEDS: GEMFIBROZIL 600 MG TABLET GT SCH ×2 (07:43→21:35)
[2019-09-06] MEDS: PROTEIN SUPPLEMENT (PROSTAT) 30 ML LIQUID GT SCH ×2 (07:43→21:35)
[2019-09-06] MEDS: HYDROGEN PEROXIDE 3% 118 ML BOTTLE TP SCH ×2 (07:44→21:46)
[2019-09-06] MEDS: POLYVINYL ALCOHOL OPHT DROPS 15 ML BOTTLE EACHEYE SCH ×4 (07:45→21:32)
[2019-09-06] MEDS: NUTRISOURCE FIBER 4 GM PACKET GT SCH (07:45)
[2019-09-06] MEDS: JEVITY 1.2 1000 ML LIQUID GT PRN ×2 (10:00→13:03)
[2019-09-06] MEDS: NOREPINEPHRINE BITARTRATE 8 MG in IV DEXTROSE 5% 500 ML IV PRN (20:43)
[2019-09-06] MEDS: ENOXAPARIN SODIUM 40 MG/0.4 ML DISP.SYRIN SQ SCH (21:43)
[2019-09-06] MEDS: OMEGA-3 FATTY ACIDS/FISH OIL CAPSULE GT SCH (21:45)
[2019-09-06] MEDS: IV NORMAL SALINE 250 ML IV PRN (23:30)
[2019-09-06] MEDS: HYDROCODONE/APAP 5-325MG TABLET GT PRN (23:37)
[2019-09-07] VITALS (59 sets, daily range): BP systolic 90–121; BP diastolic 32–79
[2019-09-07 05:18] LABS: BASOPHILS % (AUTO) 0.6 % (0.0-2.0); EOSINOPHILS # (AUTO) 0.2 K/uL (0.0-0.7); EOSINOPHILS % (AUTO) 2.9 % (0.0-7.0); HEMATOCRIT 36.2 % (36.7-47.1); HEMOGLOBIN 12.3 g/dL (12.5-16.3); LYMPHOCYTES # (AUTO) 1.5 K/uL (20.0-40.0); LYMPHOCYTES % (AUTO) 19.4 % (20.5-51.5); MEAN CORPUSCULAR HGB CONC 34 g/dL (32.5-36.3); MONOCYTES % (AUTO) 12.8 % (0.0-11.0); NEUTROPHILS % (AUTO) 64.3 % (38.5-71.5); PLATELET COUNT (AUTO) 388 K/uL (152-348); RED BLOOD CELL COUNT(AUTO) 3.85 MIL/uL (4.06-5.63); WHITE BLOOD COUNT (AUTO) 7.7 K/uL (3.6-10.2)
[2019-09-07] MEDS: CEFEPIME HCL 1 G in IV DEXTROSE 5% 50 ML IV SCH ×3 (05:47→21:46)
[2019-09-07] MEDS: VALPROIC ACID 250 MG/5 ML LIQUID UDC GT SCH ×3 (05:48→21:46)
[2019-09-07] MEDS: PANTOPRAZOLE ORAL SUSPENSION 40 MG SUSPDR.PKT GT SCH (05:51)
[2019-09-07] MEDS: MIDODRINE HCL 5 MG TABLET PO SCH ×3 (05:53→21:47)
[2019-09-07 06:21] LABS: CARBON DIOXIDE 31 mmol/L (21-32); CHLORIDE 99 mmol/L (98-107); CREATININE 0.3 mg/dL (0.6-1.3); GLUCOSE 110 mg/dL (74-106); MAGNESIUM 1.7 mg/dL (1.8-2.4); PHOSPHOROUS 3.7 mg/dL (2.5-4.9); POTASSIUM 4.4 mmol/L (3.5-5.1); UREA NITROGEN, BLOOD 11 mg/dL (7-18)
[2019-09-07] MEDS: BACLOFEN 20 MG TABLET GT SCH ×3 (08:26→21:10)
[2019-09-07] MEDS: PROTEIN SUPPLEMENT (PROSTAT) 30 ML LIQUID GT SCH ×2 (08:26→21:10)
[2019-09-07] MEDS: ACIDOPHILUS/BULGARICUS CHEW TAB GT SCH ×2 (08:26→20:42)
[2019-09-07] MEDS: PHENOBARBITAL 32.4 MG TABLET GT SCH ×2 (08:26→20:44)
[2019-09-07] MEDS: GEMFIBROZIL 600 MG TABLET GT SCH ×2 (08:26→20:43)
[2019-09-07] MEDS: DOCUSATE SODIUM 100 MG/10 ML LIQUID UDC GT SCH (08:26)
[2019-09-07] MEDS: NUTRISOURCE FIBER 4 GM PACKET GT SCH (08:26)
[2019-09-07] MEDS: POLYVINYL ALCOHOL OPHT DROPS 15 ML BOTTLE EACHEYE SCH ×4 (08:27→20:41)
[2019-09-07] MEDS: HYDROGEN PEROXIDE 3% 118 ML BOTTLE TP SCH ×2 (08:28→20:47)
[2019-09-07] MEDS: MUPIROCIN 2% OINT 22 GM TUBE NS SCH ×2 (08:28→20:48)
[2019-09-07] MEDS ORDERED: MAGNESIUM SULFATE/D5W 100 ML IV SCH (11:00)
[2019-09-07] MEDS: ACETAMINOPHEN 650 MG/20.3 ML LIQUID UDC GT PRN (11:17)
[2019-09-07] MEDS: OMEGA-3 FATTY ACIDS/FISH OIL CAPSULE GT SCH (20:42)
[2019-09-07] MEDS: ENOXAPARIN SODIUM 40 MG/0.4 ML DISP.SYRIN SQ SCH (20:47)
[2019-09-07] MEDS ORDERED: BACLOFEN 10 MG TABLET ONE (21:08)
[2019-09-08] VITALS (88 sets, daily range): BP systolic 80–123; BP diastolic 43–85
[2019-09-08] MEDS: VALPROIC ACID 250 MG/5 ML LIQUID UDC GT SCH ×3 (05:27→21:32)
[2019-09-08] MEDS: PANTOPRAZOLE ORAL SUSPENSION 40 MG SUSPDR.PKT GT SCH (05:27)
[2019-09-08] MEDS: CEFEPIME HCL 1 G in IV DEXTROSE 5% 50 ML IV SCH ×3 (05:27→21:31)
[2019-09-08] MEDS: MIDODRINE HCL 5 MG TABLET PO SCH ×3 (05:29→21:31)
[2019-09-08] MEDS: IV NORMAL SALINE 250 ML IV PRN (05:40)
[2019-09-08] MEDS: PHENOBARBITAL 32.4 MG TABLET GT SCH ×2 (08:00→20:57)
[2019-09-08] MEDS: ACIDOPHILUS/BULGARICUS CHEW TAB GT SCH ×2 (08:00→20:56)
[2019-09-08] MEDS: GEMFIBROZIL 600 MG TABLET GT SCH ×2 (08:00→20:56)
[2019-09-08] MEDS: DOCUSATE SODIUM 100 MG/10 ML LIQUID UDC GT SCH (08:01)
[2019-09-08] MEDS: BACLOFEN 20 MG TABLET GT SCH ×3 (08:01→20:56)
[2019-09-08] MEDS: PROTEIN SUPPLEMENT (PROSTAT) 30 ML LIQUID GT SCH ×2 (08:07→20:58)
[2019-09-08] MEDS: NUTRISOURCE FIBER 4 GM PACKET GT SCH (08:08)
[2019-09-08] MEDS: POLYVINYL ALCOHOL OPHT DROPS 15 ML BOTTLE EACHEYE SCH ×4 (08:14→20:55)
[2019-09-08] MEDS: MUPIROCIN 2% OINT 22 GM TUBE NS SCH ×2 (08:14→20:59)
[2019-09-08] MEDS: HYDROGEN PEROXIDE 3% 118 ML BOTTLE TP SCH ×2 (08:15→21:00)
[2019-09-08] MEDS: JEVITY 1.2 1000 ML LIQUID GT PRN (10:29)
[2019-09-08] MEDS: NOREPINEPHRINE BITARTRATE 8 MG in IV DEXTROSE 5% 500 ML IV PRN (12:39)
[2019-09-08] MEDS ORDERED: NOREPINEPHRINE BITARTRATE 8 MG in IV NORMAL SALINE 242 ML IV PRN (13:15)
[2019-09-08] MEDS: OMEGA-3 FATTY ACIDS/FISH OIL CAPSULE GT SCH (20:55)
[2019-09-08] MEDS: ENOXAPARIN SODIUM 40 MG/0.4 ML DISP.SYRIN SQ SCH (21:01)
[2019-09-08] MEDS: ACETAMINOPHEN 650 MG/20.3 ML LIQUID UDC GT PRN (22:21)
[2019-09-09] VITALS (94 sets, daily range): BP systolic 85–137; BP diastolic 46–89
[2019-09-09] MEDS: CEFEPIME HCL 1 G in IV DEXTROSE 5% 50 ML IV SCH ×3 (05:30→21:33)
[2019-09-09] MEDS: IV NORMAL SALINE 250 ML IV PRN (05:30)
[2019-09-09] MEDS: VALPROIC ACID 250 MG/5 ML LIQUID UDC GT SCH ×3 (05:42→21:30)
[2019-09-09] MEDS: PANTOPRAZOLE ORAL SUSPENSION 40 MG SUSPDR.PKT GT SCH (05:43)
[2019-09-09] MEDS: MIDODRINE HCL 5 MG TABLET PO SCH ×3 (05:43→21:32)
[2019-09-09] MEDS: DOCUSATE SODIUM 100 MG/10 ML LIQUID UDC GT SCH (08:02)
[2019-09-09] MEDS: PHENOBARBITAL 32.4 MG TABLET GT SCH ×2 (08:13→21:30)
[2019-09-09] MEDS: ACIDOPHILUS/BULGARICUS CHEW TAB GT SCH ×2 (08:13→21:29)
[2019-09-09] MEDS: PROTEIN SUPPLEMENT (PROSTAT) 30 ML LIQUID GT SCH ×2 (08:16→21:31)
[2019-09-09] MEDS: NUTRISOURCE FIBER 4 GM PACKET GT SCH (08:16)
[2019-09-09] MEDS: BACLOFEN 20 MG TABLET GT SCH ×3 (08:20→21:29)
[2019-09-09] MEDS: GEMFIBROZIL 600 MG TABLET GT SCH ×2 (08:20→21:29)
[2019-09-09] MEDS: HYDROGEN PEROXIDE 3% 118 ML BOTTLE TP SCH ×2 (08:21→21:40)
[2019-09-09] MEDS: MUPIROCIN 2% OINT 22 GM TUBE NS SCH ×2 (08:30→21:31)
[2019-09-09] MEDS: POLYVINYL ALCOHOL OPHT DROPS 15 ML BOTTLE EACHEYE SCH ×4 (08:30→21:29)
[2019-09-09] MEDS: NOREPINEPHRINE BITARTRATE 8 MG in IV NORMAL SALINE 242 ML IV PRN ×2 (08:53→13:35)
[2019-09-09] MEDS: ALBUTEROL SULFATE 2.5 MG/3 ML NEBU NEB PRN ×2 (09:34→14:30)
[2019-09-09] MEDS: JEVITY 1.2 1000 ML LIQUID GT PRN (10:57)
[2019-09-09] MEDS: OMEGA-3 FATTY ACIDS/FISH OIL CAPSULE GT SCH (21:29)
[2019-09-09] MEDS: ENOXAPARIN SODIUM 40 MG/0.4 ML DISP.SYRIN SQ SCH (21:33)
[2019-09-10] VITALS (81 sets, daily range): BP systolic 82–125; BP diastolic 52–81
[2019-09-10] MEDS: IV NORMAL SALINE 250 ML IV PRN (05:10)
[2019-09-10 05:12] LABS: CARBON DIOXIDE 32 mmol/L (21-32); CHLORIDE 102 mmol/L (98-107); CREATININE 0.4 mg/dL (0.6-1.3); GLUCOSE 135 mg/dL (74-106); MAGNESIUM 1.9 mg/dL (1.8-2.4); PHOSPHOROUS 3.7 mg/dL (2.5-4.9); POTASSIUM 4.4 mmol/L (3.5-5.1); UREA NITROGEN, BLOOD 15 mg/dL (7-18)
[2019-09-10 05:13] LABS: BASOPHILS % (AUTO) 0.2 % (0.0-2.0); EOSINOPHILS # (AUTO) 0.2 K/uL (0.0-0.7); EOSINOPHILS % (AUTO) 1.5 % (0.0-7.0); HEMATOCRIT 37.1 % (36.7-47.1); HEMOGLOBIN 12.4 g/dL (12.5-16.3); LYMPHOCYTES # (AUTO) 1.6 K/uL (20.0-40.0); MEAN CORPUSCULAR HEMOGLOBIN 31.4 uug (23.8-33.4); MEAN CORPUSCULAR HGB CONC 33 g/dL (32.5-36.3); MEAN CORPUSCULAR VOLUME 94.1 fL (73.0-96.2); MONOCYTES # (AUTO) 0.8 K/uL (2.0-10.0); MONOCYTES % (AUTO) 5.7 % (0.0-11.0); NEUTROPHILS # (AUTO) 12.1 K/uL (1.8-8.9); NEUTROPHILS % (AUTO) 81.6 % (38.5-71.5); PLATELET COUNT (AUTO) 589 K/uL (152-348); RED BLOOD CELL COUNT(AUTO) 3.94 MIL/uL (4.06-5.63); WHITE BLOOD COUNT (AUTO) 14.8 K/uL (3.6-10.2)
[2019-09-10] MEDS: MIDODRINE HCL 5 MG TABLET PO SCH ×3 (05:31→21:07)
[2019-09-10] MEDS: PANTOPRAZOLE ORAL SUSPENSION 40 MG SUSPDR.PKT GT SCH (05:31)
[2019-09-10] MEDS: VALPROIC ACID 250 MG/5 ML LIQUID UDC GT SCH ×3 (05:31→21:06)
[2019-09-10] MEDS: CEFEPIME HCL 1 G in IV DEXTROSE 5% 50 ML IV SCH ×3 (05:32→21:06)
[2019-09-10] MEDS: ACIDOPHILUS/BULGARICUS CHEW TAB GT SCH ×2 (08:07→21:05)
[2019-09-10] MEDS: BACLOFEN 20 MG TABLET GT SCH ×3 (08:07→21:05)
[2019-09-10] MEDS: POLYVINYL ALCOHOL OPHT DROPS 15 ML BOTTLE EACHEYE SCH ×4 (08:07→21:08)
[2019-09-10] MEDS: DOCUSATE SODIUM 100 MG/10 ML LIQUID UDC GT SCH (08:07)
[2019-09-10] MEDS: MUPIROCIN 2% OINT 22 GM TUBE NS SCH (08:08)
[2019-09-10] MEDS: PHENOBARBITAL 32.4 MG TABLET GT SCH ×2 (08:08→21:05)
[2019-09-10] MEDS: GEMFIBROZIL 600 MG TABLET GT SCH ×2 (08:08→21:05)
[2019-09-10] MEDS: NUTRISOURCE FIBER 4 GM PACKET GT SCH (08:09)
[2019-09-10] MEDS: HYDROGEN PEROXIDE 3% 118 ML BOTTLE TP SCH ×2 (08:10→21:08)
[2019-09-10] MEDS: PROTEIN SUPPLEMENT (PROSTAT) 30 ML LIQUID GT SCH ×2 (08:10→21:05)
[2019-09-10] MEDS: JEVITY 1.2 1000 ML LIQUID GT PRN (10:05)
[2019-09-10] MEDS: NOREPINEPHRINE BITARTRATE 8 MG in IV NORMAL SALINE 242 ML IV PRN (14:16)
[2019-09-10] MEDS: VANCOMYCIN FOR PO/GT/NG USE PO SCH ×3 (15:40→21:06)
[2019-09-10] MEDS: OMEGA-3 FATTY ACIDS/FISH OIL CAPSULE GT SCH (21:05)
[2019-09-10] MEDS: ENOXAPARIN SODIUM 40 MG/0.4 ML DISP.SYRIN SQ SCH (21:09)
[2019-09-11] VITALS (24 sets, daily range): BP systolic 82–129; BP diastolic 48–75
[2019-09-11] MEDS: ACETAMINOPHEN 650 MG/20.3 ML LIQUID UDC GT PRN ×2 (01:08→08:24)
[2019-09-11 05:09] LABS: BASOPHILS % (AUTO) 0.4 % (0.0-2.0); EOSINOPHILS # (AUTO) 0.2 K/uL (0.0-0.7); HEMATOCRIT 35.3 % (36.7-47.1); HEMOGLOBIN 11.8 g/dL (12.5-16.3); LYMPHOCYTES # (AUTO) 1.5 K/uL (20.0-40.0); MEAN CORPUSCULAR HEMOGLOBIN 31.7 uug (23.8-33.4); MEAN CORPUSCULAR HGB CONC 33 g/dL (32.5-36.3); MEAN CORPUSCULAR VOLUME 94.9 fL (73.0-96.2); MONOCYTES # (AUTO) 0.6 K/uL (2.0-10.0); MONOCYTES % (AUTO) 6.2 % (0.0-11.0); NEUTROPHILS # (AUTO) 7.7 K/uL (1.8-8.9); NEUTROPHILS % (AUTO) 76.4 % (38.5-71.5); PLATELET COUNT (AUTO) 520 K/uL (152-348); RED BLOOD CELL COUNT(AUTO) 3.72 MIL/uL (4.06-5.63); WHITE BLOOD COUNT (AUTO) 10.1 K/uL (3.6-10.2)
[2019-09-11] MEDS: IV NORMAL SALINE 250 ML IV PRN (05:23)
[2019-09-11] MEDS: CEFEPIME HCL 1 G in IV DEXTROSE 5% 50 ML IV SCH ×3 (05:25→22:13)
[2019-09-11] MEDS: PANTOPRAZOLE ORAL SUSPENSION 40 MG SUSPDR.PKT GT SCH (05:25)
[2019-09-11] MEDS: VALPROIC ACID 250 MG/5 ML LIQUID UDC GT SCH ×3 (05:25→22:14)
[2019-09-11 05:41] LABS: CARBON DIOXIDE 31 mmol/L (21-32); CHLORIDE 101 mmol/L (98-107); CREATININE 0.4 mg/dL (0.6-1.3); GLUCOSE 157 mg/dL (74-106); MAGNESIUM 1.9 mg/dL (1.8-2.4); PHOSPHOROUS 3.6 mg/dL (2.5-4.9); POTASSIUM 4.2 mmol/L (3.5-5.1); UREA NITROGEN, BLOOD 18 mg/dL (7-18)
[2019-09-11] MEDS: MIDODRINE HCL 5 MG TABLET PO SCH ×3 (07:09→22:13)
[2019-09-11] MEDS: POLYVINYL ALCOHOL OPHT DROPS 15 ML BOTTLE EACHEYE SCH ×4 (08:10→20:44)
[2019-09-11] MEDS: ACIDOPHILUS/BULGARICUS CHEW TAB GT SCH ×2 (08:10→20:49)
[2019-09-11] MEDS: DOCUSATE SODIUM 100 MG/10 ML LIQUID UDC GT SCH (08:10)
[2019-09-11] MEDS: GEMFIBROZIL 600 MG TABLET GT SCH ×2 (08:11→20:42)
[2019-09-11] MEDS: NUTRISOURCE FIBER 4 GM PACKET GT SCH (08:11)
[2019-09-11] MEDS: PHENOBARBITAL 32.4 MG TABLET GT SCH ×2 (08:11→20:50)
[2019-09-11] MEDS: PROTEIN SUPPLEMENT (PROSTAT) 30 ML LIQUID GT SCH ×2 (08:11→22:13)
[2019-09-11] MEDS: VANCOMYCIN FOR PO/GT/NG USE PO SCH ×4 (08:11→20:49)
[2019-09-11] MEDS: BACLOFEN 20 MG TABLET GT SCH ×3 (08:12→20:42)
[2019-09-11] MEDS: HYDROGEN PEROXIDE 3% 118 ML BOTTLE TP SCH ×2 (08:13→21:00)
[2019-09-11] MEDS: JEVITY 1.2 1000 ML LIQUID GT PRN (10:01)
[2019-09-11] MEDS: OMEGA-3 FATTY ACIDS/FISH OIL CAPSULE GT SCH (20:49)
[2019-09-11] MEDS: ENOXAPARIN SODIUM 40 MG/0.4 ML DISP.SYRIN SQ SCH (20:50)
[2019-09-12] VITALS (14 sets, daily range): BP systolic 92–130; BP diastolic 56–84
[2019-09-12] MEDS: ACETAMINOPHEN 650 MG/20.3 ML LIQUID UDC GT PRN ×2 (00:08→08:39)
[2019-09-12 04:51] LABS: BASOPHILS % (AUTO) 0.3 % (0.0-2.0); EOSINOPHILS # (AUTO) 0.2 K/uL (0.0-0.7); EOSINOPHILS % (AUTO) 1.9 % (0.0-7.0); HEMOGLOBIN 11.9 g/dL (12.5-16.3); LYMPHOCYTES # (AUTO) 1.1 K/uL (20.0-40.0); LYMPHOCYTES % (AUTO) 13.3 % (20.5-51.5); MEAN CORPUSCULAR HEMOGLOBIN 32.1 uug (23.8-33.4); MEAN CORPUSCULAR HGB CONC 34 g/dL (32.5-36.3); MEAN CORPUSCULAR VOLUME 94.5 fL (73.0-96.2); MONOCYTES # (AUTO) 0.4 K/uL (2.0-10.0); MONOCYTES % (AUTO) 4.7 % (0.0-11.0); NEUTROPHILS # (AUTO) 6.8 K/uL (1.8-8.9); NEUTROPHILS % (AUTO) 79.8 % (38.5-71.5); PLATELET COUNT (AUTO) 488 K/uL (152-348); WHITE BLOOD COUNT (AUTO) 8.5 K/uL (3.6-10.2)
[2019-09-12] MEDS: CEFEPIME HCL 1 G in IV DEXTROSE 5% 50 ML IV SCH ×2 (06:06→13:18)
[2019-09-12] MEDS: MIDODRINE HCL 5 MG TABLET PO SCH ×2 (06:08→13:17)
[2019-09-12] MEDS: IV NORMAL SALINE 250 ML IV PRN (06:09)
[2019-09-12] MEDS: VALPROIC ACID 250 MG/5 ML LIQUID UDC GT SCH ×2 (06:11→13:35)
[2019-09-12] MEDS: PANTOPRAZOLE ORAL SUSPENSION 40 MG SUSPDR.PKT GT SCH (06:12)
[2019-09-12 06:30] LABS: CHLORIDE 100 mmol/L (98-107); POTASSIUM 4.4 mmol/L (3.5-5.1)
[2019-09-12 06:31] LABS: CARBON DIOXIDE 31 mmol/L (21-32); CREATININE 0.3 mg/dL (0.6-1.3); GLUCOSE 127 mg/dL (74-106); MAGNESIUM 1.9 mg/dL (1.8-2.4)
[2019-09-12 06:34] LABS: UREA NITROGEN, BLOOD 16 mg/dL (7-18)
[2019-09-12] MEDS: PHENOBARBITAL 32.4 MG TABLET GT SCH (08:39)
[2019-09-12] MEDS: ACIDOPHILUS/BULGARICUS CHEW TAB GT SCH (08:39)
[2019-09-12] MEDS: DOCUSATE SODIUM 100 MG/10 ML LIQUID UDC GT SCH (08:39)
[2019-09-12] MEDS: HYDROGEN PEROXIDE 3% 118 ML BOTTLE TP SCH (08:40)
[2019-09-12] MEDS: BACLOFEN 20 MG TABLET GT SCH ×2 (08:41→13:17)
[2019-09-12] MEDS: PROTEIN SUPPLEMENT (PROSTAT) 30 ML LIQUID GT SCH (08:41)
[2019-09-12] MEDS: GEMFIBROZIL 600 MG TABLET GT SCH (08:42)
[2019-09-12] MEDS: NUTRISOURCE FIBER 4 GM PACKET GT SCH (08:43)
[2019-09-12] MEDS: POLYVINYL ALCOHOL OPHT DROPS 15 ML BOTTLE EACHEYE SCH ×2 (08:44→13:18)
[2019-09-12] MEDS: VANCOMYCIN FOR PO/GT/NG USE PO SCH ×2 (08:45→13:36)
[2019-09-12] MEDS: JEVITY 1.2 1000 ML LIQUID GT PRN (10:00)
== END 2019-09-12 14:00 | DRG 871 ==
LOC: ER 09:51 → CCU 19:47
PROVIDERS: ADMIT Internal Medicine; ATTEND Internal Medicine
PROC: 05HY33Z Insertion of Infusion Device into Upper Vein, Percutaneous Approach (ICD-10-PCS; principal; 2019-09-01)
DX: A41.52 Sepsis due to Pseudomonas (principal); J69.0 Pneumonitis due to inhalation of food and vomit; E43 Unspecified severe protein-calorie malnutrition; R65.21 Severe sepsis with septic shock; J96.21 Acute and chronic respiratory failure with hypoxia; G92 Toxic encephalopathy; N17.0 Acute kidney failure with tubular necrosis; R53.2 Functional quadriplegia; G93.1 Anoxic brain damage, not elsewhere classified; N39.0 Urinary tract infection, site not specified; J98.11 Atelectasis; D68.59 Other primary thrombophilia; Z66 Do not resuscitate; Z93.0 Tracheostomy status; Z93.1 Gastrostomy status; D69.6 Thrombocytopenia, unspecified; M24.452 Recurrent dislocation, left hip; G40.909 Epilepsy, unspecified, not intractable, without status epilepticus; E83.42 Hypomagnesemia; E78.5 Hyperlipidemia, unspecified; Z22.322 Carrier or suspected carrier of Methicillin resistant Staphylococcus aureus; E66.9 Obesity, unspecified; E87.6 Hypokalemia; G93.89 Other specified disorders of brain; G31.9 Degenerative disease of nervous system, unspecified; N21.0 Calculus in bladder; N20.0 Calculus of kidney; N35.919 Unspecified urethral stricture, male, unspecified site; K21.9 Gastro-esophageal reflux disease without esophagitis; M24.50 Contracture, unspecified joint; Z86.74 Personal history of sudden cardiac arrest; K56.41 Fecal impaction; Z87.440 Personal history of urinary (tract) infections; R13.10 Dysphagia, unspecified; Z68.32 Body mass index [BMI] 32.0-32.9, adult; L73.9 Follicular disorder, unspecified; L70.0 Acne vulgaris; M85.80 Other specified disorders of bone density and structure, unspecified site; Z88.1 Allergy status to other antibiotic agents; D64.9 Anemia, unspecified; I10 Essential (primary) hypertension
CPT/HCPCS: 36415; 36569; 70030-TC; 70450; 70490; 71045; 71250; 83605; 83735; 84100; 85025; 85730; 87040; 87070; 87077; 87086; 87400; 93005; 93307; 94640; A4217; A4663; G0378; J0692; J1650; J2020; J2185; J3370; J3475; J3490; J7030; J7050; J7060

== ENCOUNTER 2019-09-12 14:21 | Inpatient (IN) | payer OTHER ==
[~2019-09-12] VITALS: Ht 182.9 cm; Wt 83.0 kg
--- NOTE | 2019-09-12 14:15 | NUR ---
PT. WAS ADMITTED AT THIS TIME FROM ICU BED 1 AND REPORT OBTAINED FROM LUCAS VIDES .RESPONSIVE TO TOUCH AND PAIN STIMULI AND AT TIMES WITH EYE CONTACT .V/S FOLLOW:TEMP. 98.8F,RR 22X' O2 SAT 97% AT 28% ,B/P 97/59,HR 75X',P/A 0/10.SKIN COOL AND DRY TO TOUCH.RT ARM 3 LUMEN PICCLINE INTACT AND PATENT AND CEFEPIME IV ON GOING.F/C SIZE 16X10 AND DRAINING CLEAR URINE.GASTRIC TUBE 18X6ML.DR. SABAS MODI WAS CALLED TO VERIFY MEDICAL ORDERS. WAS ALSO PAGED.PT'S MOTHER MICA WAS ALSO NOTIFIED RE: ADMISSION.
[2019-09-12 14:20] VITALS: BP 99/64
[~2019-09-12 14:21] MED LIST changes: +ACET160E61 GT; +ACID1TAB12 GT; +ALBU2.5V38 NEB; +BACL20TA GT; +BISA10SU61 RC; +CEFE1PIG3 IV; +CHLO25TA13 GT; +CHLORHEXIDINE TOP; +DOCU-141 GT; +ENOX40DI SQ; +GEMF600T GT; +GUAR1PAC4 GT; +HYDR1SOL MC; +IPRA0.2S48 NEB; +OMEG1CAP GT; +PANT40TA2 GT; +PHEN60TA11 GT; -PHENOBARBITAL 32.4 MG TABLET PO ONE; +POLY15DR27 EACHEYE; +PROSTAT GT; +VALP250S3 GT; +VANC1PLA9 IV; +VITAMIN A&D OINT TOP
--- NOTE | 2019-09-12 14:30 | NUR ---
PT TRANSPORTED FROM [facility] TO WITHOUT ANY SOB NOTED. TRACH TUBE INLINE AND SECURED WITH TRACH TIE. PT ON 28% FIO2 WITH SPO2 OF 96%. SX PT AT THIS TIME FOR MODERATE AMOUNT OF THINK CLEAR SECRETION. BACK UP TRACH AND AMBU BAG AT BEDSIDE. WILL CONT TO MONITOR.
--- NOTE | 2019-09-12 14:45 | NUR ---
SKIN ASSESSMENT DONE AND PICTURES TAKEN AND NOTED WITH OILY SCALY SKIN AND CHRONIC FOLLICULITIS ON NECK AND BEHIND EARS. AND SCAR ON ANTERIOR LEFT FOOT.
--- NOTE | 2019-09-12 15:40 | NUR ---
PT SPO2 DECREASED TO 88%. SX PT AND INCREASED FIO2 TO 40% AT THIS TIME. SPO2 IS NOW SATURATING AT 94-97% WILL CONT TO MONITOR.
[2019-09-12 16:30] VITALS: BP 99/64
--- NOTE | 2019-09-12 16:30 | NUR ---
DR. SABAS MODI CALLED BACK AND MEDICAL ORDERS WERE VERIFIED WITH HIM AND CARRIED OUT.
--- NOTE | 2019-09-12 16:30 | NUR ---
DR. ALMAGUER NOTIFIED RE:NEW ADMITTED PT. AND THAT RT. REQUIRED TITRATE PT'S OXIGEN D/T EPISODE OF VISIBLE THORAX MUSCLE RETRACTION AND O2 SAT 88%. AND THAT WAS EFFECTIVE WITH ORDER TO CONTINUE TITRATING.
--- NOTE | 2019-09-12 17:23 | NUR ---
Billing And Accounting Staff Assistant Assessment: Patient is a 44 year old male, admitted to [facility] from [facility]. Patient is known to this subacute and this SW from previous admission. Patient has been a resident of this Subacute since 2003, however was transferred to the acute hospital on 08/03/2019 due to a change in medical condition. Patient re-admitted again today, 09/12/19. Patient is not communicative and unable to follow commands, and therefore SW is unable to obtain information from the patient to complete the psychosocial assessment. SW gathered information from the patient's mother Sade via telephone. Due to current visitation restrictions secondary to the pandemic, this SW is unable to meet with the patient's mother to obtain signatures on patient's admission paperwork. However, this SW, along with LUCAS Smith and Warehouse Shipping Receiving Clerk Jonathon Cantu spoke with patient's mother Sade to review and complete patient's preferred intensity of care. Patient's mother Sade is patient's conservator, and her wishes are for patient's code status to be a DNR, witnessed by LUCAS Smith and Warehouse Shipping Receiving Clerk Jonathon Cantu. SW will obtained signatures on all other admission paperwork once the restrictions on visitations have been lifted. SW will continue to work with patient's mother to provide any supportive counseling and linkage on community resources, as needed.
[2019-09-12 18:30] VITALS: BP 99/64
[2019-09-12] MEDS ORDERED: ACETAMINOPHEN 650 MG/20 ML UDC- SA PATIENTS-PAIN ONLY GT PRN (18:30)
[2019-09-12] MEDS ORDERED: ALBUTEROL SULFATE 2.5 MG/3 ML NEBU NEB PRN (18:30)
[2019-09-12] MEDS ORDERED: ACETAMINOPHEN 650 MG/20 ML UDC- SA PATIENTS-FEVER ONLY GT PRN (18:30)
--- NOTE | 2019-09-12 18:30 | NUR ---
V/S CHECKED SEE RECORD.
[2019-09-12] MEDS ORDERED: CEFEPIME HCL 1 G in IV DEXTROSE 5% 50 ML IV SCH (18:36)
[2019-09-12] MEDS ORDERED: HYDROCODONE/APAP 5-325MG TABLET GT PRN (18:45)
[2019-09-12] MEDS ORDERED: MIDODRINE HCL 5 MG TABLET GT PRN (19:00)
[2019-09-12] MEDS ORDERED: HYDROGEN PEROXIDE 3% 118 ML BOTTLE TP PRN (19:00)
[2019-09-12 20:00] VITALS: BP 117/67
[2019-09-12] MEDS: PHENOBARBITAL 32.4 MG TABLET GT SCH (21:00)
[2019-09-12] MEDS: NORMAL SALINE FLUSH 10 ML DISP.SYRIN IV SCH (21:00)
--- NOTE | 2019-09-12 21:00 | NUR ---
RECTAL TUBE WAS D/C ORDERED.
[2019-09-12] MEDS: HYDROGEN PEROXIDE 3% 118 ML BOTTLE TP SCH (21:14)
[2019-09-12] MEDS: CEFEPIME HCL 1 G in IV DEXTROSE 5% 50 ML IV SCH (21:50)
[2019-09-12] MEDS: VANCOMYCIN FOR PO/GT/NG USE GT SCH (21:58)
[2019-09-12] MEDS: OMEGA-3 FATTY ACIDS/FISH OIL CAPSULE GT SCH (21:58)
[2019-09-12] MEDS: BACLOFEN 20 MG TABLET GT SCH (21:58)
[2019-09-12] MEDS: ACIDOPHILUS/BULGARICUS CHEW TAB PO SCH (21:58)
[2019-09-12] MEDS: GEMFIBROZIL 600 MG TABLET PO SCH (21:59)
[2019-09-12] MEDS: Z GUARD REMEDY PASTE TP SCH (21:59)
[2019-09-12] MEDS: VALPROIC ACID 250 MG/5 ML LIQUID UDC PO SCH (22:00)
[2019-09-12] MEDS ORDERED: PHENOBARBITAL 32.4 MG TABLET ONE (22:22)
[2019-09-13] VITALS: BP 119/68
[2019-09-13 04:00] VITALS: BP 94/54
[2019-09-13] MEDS: VALPROIC ACID 250 MG/5 ML LIQUID UDC GT SCH ×2 (05:57→13:11)
[2019-09-13] MEDS: PANTOPRAZOLE ORAL SUSPENSION 40 MG SUSPDR.PKT GT SCH (05:57)
[2019-09-13] MEDS: CEFEPIME HCL 1 G in IV DEXTROSE 5% 50 ML IV SCH ×3 (06:02→21:15)
[2019-09-13 07:57] VITALS: BP 103/50
[2019-09-13] MEDS: NUTRISOURCE FIBER 4 GM PACKET GT SCH (08:41)
[2019-09-13] MEDS: BACLOFEN 20 MG TABLET GT SCH ×3 (08:41→21:35)
[2019-09-13] MEDS: PHENOBARBITAL 32.4 MG TABLET GT SCH ×2 (08:42→21:35)
[2019-09-13] MEDS: BENZOYL PEROXIDE 10% GEL 60 GM TUBE TP SCH ×2 (08:43)
[2019-09-13] MEDS: VANCOMYCIN FOR PO/GT/NG USE GT SCH ×4 (08:43→21:35)
[2019-09-13] MEDS: GEMFIBROZIL 600 MG TABLET PO SCH ×2 (08:43→21:35)
[2019-09-13] MEDS: ACIDOPHILUS/BULGARICUS CHEW TAB PO SCH ×2 (08:43→21:35)
[2019-09-13] MEDS: NORMAL SALINE FLUSH 10 ML DISP.SYRIN IV SCH ×2 (08:43→21:00)
[2019-09-13] MEDS: Z GUARD REMEDY PASTE TP SCH ×2 (08:44→21:35)
[2019-09-13] MEDS ORDERED: PHENOBARBITAL 32.4 MG TABLET PO ONE ×4 (09:00→21:00)
[2019-09-13] MEDS: HYDROGEN PEROXIDE 3% 118 ML BOTTLE TP SCH ×2 (09:00→20:57)
--- NOTE | 2019-09-13 14:30 | NUR ---
DR. ALMAGUER AWARE THAT PT. IS NOT CURRENTLY ON ANY BLOOD THINNER AND THAT DR. SABAS JONES WAS AWARE YESTERDAY WHEN MEDICAL ORDERS WERE VERIFIED AND STATED THAT KEEP IT D/C D/T HAD ABNORMAL BLOOD WORK (SEE RECORDS) AND NNO.
--- NOTE | 2019-09-13 15:00 | NUR ---
PER DR. ALMAGUER AND DR. PLAZA AND Shantel CASTANO NOT NEEDED ADMISSION SCREENING OF URINE ,SPUTUM OR NARES BUT THEY ASKED NURSE TO F/U WITH HOSPITAL PIN WORKER
--- NOTE | 2019-09-13 15:27 | NUR ---
PT. WAS SEEN AND EXAMINED BY DR. PLAZA AND WITH NEW ORDERS CRARIED OUT.PT. WAS SEEN BY DR. ALMAGUER AND WITH NNO.
--- NOTE | 2019-09-13 15:31 | NUR ---
AWARE THAT RECTAL TUBE WAS D/C AND HE IS BEING MONITORED FOR DIARRHEA AND SO FAR NO B.M AT ALL SINCE ADMISSION.
--- NOTE | 2019-09-13 16:05 | NUR ---
NEW ORDER WAS CARRIED OUT FROM DR. ALMAGUER RECOMMENDED BY OT.
--- NOTE | 2019-09-13 18:00 | NUR ---
PT. WAS SEEN BY UZMA CASTANO N.P. AND WITH NNO.
[2019-09-13 20:26] VITALS: BP 120/76
[2019-09-13] MEDS: POLYVINYL ALCOHOL OPHT DROPS 15 ML BOTTLE EACHEYE PRN (21:30)
[2019-09-13] MEDS: OMEGA-3 FATTY ACIDS/FISH OIL CAPSULE GT SCH (21:34)
[2019-09-13] MEDS: VALPROIC ACID 250 MG/5 ML LIQUID UDC PO SCH (21:36)
[2019-09-13] MEDS: JEVITY 1.2 1000 ML LIQUID GT PRN (21:39)
[2019-09-14] MEDS: CEFEPIME HCL 1 G in IV DEXTROSE 5% 50 ML IV SCH ×3 (05:15→22:48)
[2019-09-14] MEDS: PANTOPRAZOLE ORAL SUSPENSION 40 MG SUSPDR.PKT GT SCH (06:21)
[2019-09-14] MEDS: VALPROIC ACID 250 MG/5 ML LIQUID UDC GT SCH ×2 (06:21→13:47)
[2019-09-14 08:00] VITALS: BP 99/68
[2019-09-14] MEDS: HYDROGEN PEROXIDE 3% 118 ML BOTTLE TP SCH ×2 (08:20→21:14)
[2019-09-14] MEDS ORDERED: PHENOBARBITAL 32.4 MG TABLET PO ONE ×4 (09:00→21:00)
--- NOTE | 2019-09-14 09:07 | NUR ---
NO DIARRHEA REPORTED UP TO THIS TIME.
[2019-09-14] MEDS: ACIDOPHILUS/BULGARICUS CHEW TAB PO SCH ×2 (09:10→21:00)
[2019-09-14] MEDS: NORMAL SALINE FLUSH 10 ML DISP.SYRIN IV SCH ×2 (09:10→21:00)
[2019-09-14] MEDS: PHENOBARBITAL 32.4 MG TABLET GT SCH ×2 (09:10→21:00)
[2019-09-14] MEDS: BENZOYL PEROXIDE 10% GEL 60 GM TUBE TP SCH ×2 (09:10)
[2019-09-14] MEDS: NUTRISOURCE FIBER 4 GM PACKET GT SCH (09:10)
[2019-09-14] MEDS: BACLOFEN 20 MG TABLET GT SCH ×3 (09:10→21:00)
[2019-09-14] MEDS: VANCOMYCIN FOR PO/GT/NG USE GT SCH ×4 (09:10→21:00)
[2019-09-14] MEDS: Z GUARD REMEDY PASTE TP SCH ×2 (09:10→21:00)
[2019-09-14] MEDS: GEMFIBROZIL 600 MG TABLET PO SCH ×2 (09:10→21:00)
--- NOTE | 2019-09-14 16:26 | NUR ---
SEEN AND EXAMINED BY UZMA [id number] AND WITH NEW ORDER CARRIED OUT.
[2019-09-14 20:55] VITALS: BP 99/67
[2019-09-14] MEDS: OMEGA-3 FATTY ACIDS/FISH OIL CAPSULE GT SCH (21:00)
[2019-09-14] MEDS: VALPROIC ACID 250 MG/5 ML LIQUID UDC PO SCH (22:23)
[2019-09-14] MEDS: JEVITY 1.2 1000 ML LIQUID GT PRN (23:38)
[2019-09-15] MEDS: VALPROIC ACID 250 MG/5 ML LIQUID UDC GT SCH ×2 (06:02→13:43)
[2019-09-15] MEDS: PANTOPRAZOLE ORAL SUSPENSION 40 MG SUSPDR.PKT GT SCH (06:02)
[2019-09-15] MEDS ORDERED: KETOROLAC TROMETHAMINE 15 MG INJ ONE (06:21)
[2019-09-15 07:31] LABS: CARBON DIOXIDE 30 mmol/L (21-32); CHLORIDE 103 mmol/L (98-107); CREATININE 0.3 mg/dL (0.6-1.3); GLUCOSE 140 mg/dL (74-106); POTASSIUM 4.4 mmol/L (3.5-5.1); UREA NITROGEN, BLOOD 11 mg/dL (7-18)
[2019-09-15 07:47] LABS: BASOPHILS % (AUTO) 0.6 % (0.0-2.0); EOSINOPHILS # (AUTO) 0.1 K/uL (0.0-0.7); EOSINOPHILS % (AUTO) 1.4 % (0.0-7.0); HEMATOCRIT 35.4 % (36.7-47.1); HEMOGLOBIN 11.8 g/dL (12.5-16.3); LYMPHOCYTES # (AUTO) 1.3 K/uL (20.0-40.0); LYMPHOCYTES % (AUTO) 23.9 % (20.5-51.5); MEAN CORPUSCULAR HEMOGLOBIN 31.7 uug (23.8-33.4); MEAN CORPUSCULAR HGB CONC 33 g/dL (32.5-36.3); MEAN CORPUSCULAR VOLUME 95.4 fL (73.0-96.2); MONOCYTES # (AUTO) 0.4 K/uL (2.0-10.0); MONOCYTES % (AUTO) 7.6 % (0.0-11.0); NEUTROPHILS # (AUTO) 3.7 K/uL (1.8-8.9); NEUTROPHILS % (AUTO) 66.5 % (38.5-71.5); RED BLOOD CELL COUNT(AUTO) 3.71 MIL/uL (4.06-5.63)
[2019-09-15 08:00] VITALS: BP 97/60
[2019-09-15 08:01] LABS: PLATELET COUNT (AUTO) 364 K/uL (152-348); WHITE BLOOD COUNT (AUTO) 5.6 K/uL (3.6-10.2)
[2019-09-15] MEDS: ACIDOPHILUS/BULGARICUS CHEW TAB PO SCH ×2 (08:52→20:07)
[2019-09-15] MEDS: VANCOMYCIN FOR PO/GT/NG USE GT SCH ×3 (08:52→16:06)
[2019-09-15] MEDS: GEMFIBROZIL 600 MG TABLET PO SCH ×2 (08:52→20:07)
[2019-09-15] MEDS: Z GUARD REMEDY PASTE TP SCH ×2 (08:52→20:07)
[2019-09-15] MEDS: PHENOBARBITAL 32.4 MG TABLET GT SCH ×2 (08:52→20:07)
[2019-09-15] MEDS: NUTRISOURCE FIBER 4 GM PACKET GT SCH (08:52)
[2019-09-15] MEDS: BENZOYL PEROXIDE 10% GEL 60 GM TUBE TP SCH ×2 (08:52)
[2019-09-15] MEDS: BACLOFEN 20 MG TABLET GT SCH ×3 (08:52→20:06)
[2019-09-15] MEDS: HYDROGEN PEROXIDE 3% 118 ML BOTTLE TP SCH ×2 (09:00→20:07)
[2019-09-15] MEDS ORDERED: PHENOBARBITAL 32.4 MG TABLET PO ONE ×4 (09:00→21:00)
--- NOTE | 2019-09-15 16:00 | NUR ---
PT SEEN AND EXAMINED BY DR. ALMAGUER AND JS ALSO PT. WAS SEEN BY SLY Bernard) AND WITH NEW ORDERS CARRIED OUT.
--- NOTE | 2019-09-15 17:08 | NUR ---
NARES MRSA SCREENUING SPECIMEN WAS SENT TO LAB.
--- NOTE | 2019-09-15 17:37 | NUR ---
RT ARM TRIPLE LUMEN PICC LINE D/C AND NOTED INTACT LOCAL PRESSURE APPLIED AND NO LOCAL BLEEDING NOTED .
[2019-09-15] MEDS: OMEGA-3 FATTY ACIDS/FISH OIL CAPSULE GT SCH (20:06)
[2019-09-15 21:03] VITALS: BP 110/70
[2019-09-15] MEDS: VALPROIC ACID 250 MG/5 ML LIQUID UDC PO SCH (22:13)
--- NOTE | 2019-09-16 02:06 | NUR ---
RUE old PICC line site no signs of bleeding or hematoma noted. no respiratory distress noted.
[2019-09-16] MEDS: JEVITY 1.2 1000 ML LIQUID GT PRN (02:28)
[2019-09-16] MEDS: VALPROIC ACID 250 MG/5 ML LIQUID UDC GT SCH ×2 (05:24→14:00)
[2019-09-16] MEDS: PANTOPRAZOLE ORAL SUSPENSION 40 MG SUSPDR.PKT GT SCH (05:24)
[2019-09-16 08:00] VITALS: BP 114/57
[2019-09-16] MEDS: PHENOBARBITAL 32.4 MG TABLET GT SCH ×2 (08:50→21:00)
[2019-09-16] MEDS: NUTRISOURCE FIBER 4 GM PACKET GT SCH (08:50)
[2019-09-16] MEDS: BACLOFEN 20 MG TABLET GT SCH ×3 (08:50→21:00)
[2019-09-16] MEDS: VANCOMYCIN FOR PO/GT/NG USE GT SCH ×4 (08:55→21:00)
[2019-09-16] MEDS: ACIDOPHILUS/BULGARICUS CHEW TAB PO SCH ×2 (08:56→21:00)
[2019-09-16] MEDS: GEMFIBROZIL 600 MG TABLET PO SCH ×2 (08:56→21:00)
[2019-09-16] MEDS: Z GUARD REMEDY PASTE TP SCH ×2 (08:57→21:00)
[2019-09-16] MEDS: HYDROGEN PEROXIDE 3% 118 ML BOTTLE TP SCH ×2 (09:00→20:56)
[2019-09-16] MEDS ORDERED: PHENOBARBITAL 32.4 MG TABLET PO ONE ×4 (09:00→21:00)
[2019-09-16] MEDS: BENZOYL PEROXIDE 10% GEL 60 GM TUBE TP SCH ×2 (09:00→09:45)
[2019-09-16 09:27] LABS: PHENOBARBITAL 34.2 ug/mL (15.0-39.0)
--- NOTE | 2019-09-16 14:28 | NUR ---
Pharmacy Initial Readmission and Update from Today's 09/16/19 IDT Meeting: Note: Patient was transferred to CCU 08/31-09/11 d/t fever, sepsis, hypotension requiring pressors and was found with aspiration PNA and UTI. Pt was stabilized, treated with appropriate antibiotics and readmitted to SA to finish abx courses. VS: Temp 98 BP 114/57 HR 92 LABS: (from 09/15/19) Wbc 5.6H/H 11.8/35.4Plt 364 Na 139K 4.4Cl 103CO2 30BUN/SCr 11/0.3 BS 140Ca 9.3 MEDICATION USE REVIEWED: > Pt not on any anti-psych medications > Pt on Phenobarbital 64.8mg q12hr. Last level per Rx rec on 09/15/19 was 34.2 (15-39) > Pt on Valproic acid 1000mg qhs and 500mg qam and 1400. Last level per Rx rec on 09/15/19 was 65 (50-100). Within range, no reported seizure activity noted > Pt now on midodrine 20mg q8hr PRN sbp <90. So far, none used. Last BP 114/57 > Previously on lovenox, d/c'd in CCU d/t low plt concerns. Remains off DVT prophylaxis per MD PRN MED USAGE: (since readmit) Tylenol for pain/temp used x0 [place] 5/325 PRN used x0 Artificial tears PRN used x0 NEW/OTHER ORDERS NOTED: > Vanco PO continued from CCU, to finish 09/19 > Cefepime continued from CCU, completed 09/14 > Protonix 40mg daily continued per pt dosing > Baclofen 20mg TID continued per pt's previous dosing > Gemfibrozil 600mg q12hr continued per previous dosing > Continues with supplements fish oil and nutrisource fiber Pt was reviewed and discussed in detail with no medication issues noted per team. Remains stable since transfer, anti-seizure medication levels wnl. No further recs per rx at this time, will continue to follow
--- NOTE | 2019-09-16 15:39 | NUR ---
INTERDISCIPLINARY PLAN OF CARE CONFERENCE was held today. Patient's mother was unable to attend the meeting. Dr. Bowser and the Interdisciplinary Team reviewed the current plan of care in detail. Patient was re-admitted to subacute on 09/12/2019, after requiring acute hospitalization from 09/01/2019-09/12/2019 due to change in medical condition. RN reported on patient's current medical condition. See RN IDT conference notes. RD discussed patient's feeding. Rehab reported that patient has been referred to the RNA program. See all disciplines IDT notes and physician's progress notes for additional details.
[2019-09-16 20:19] VITALS: BP 110/72
[2019-09-16] MEDS: OMEGA-3 FATTY ACIDS/FISH OIL CAPSULE GT SCH (21:00)
[2019-09-16] MEDS: VALPROIC ACID 250 MG/5 ML LIQUID UDC PO SCH (22:51)
[2019-09-17] MEDS: JEVITY 1.2 1000 ML LIQUID GT PRN (04:00)
[2019-09-17] MEDS: VALPROIC ACID 250 MG/5 ML LIQUID UDC GT SCH ×2 (06:23→13:14)
[2019-09-17] MEDS: PANTOPRAZOLE ORAL SUSPENSION 40 MG SUSPDR.PKT GT SCH (06:23)
[2019-09-17] MEDS: HYDROGEN PEROXIDE 3% 118 ML BOTTLE TP SCH ×2 (08:24→20:45)
[2019-09-17] MEDS: Z GUARD REMEDY PASTE TP SCH ×2 (09:00→21:00)
[2019-09-17] MEDS: NUTRISOURCE FIBER 4 GM PACKET GT SCH (09:00)
[2019-09-17] MEDS ORDERED: PHENOBARBITAL 32.4 MG TABLET PO ONE ×4 (09:00→21:00)
[2019-09-17] MEDS: BACLOFEN 20 MG TABLET GT SCH ×3 (09:00→21:00)
[2019-09-17] MEDS: VANCOMYCIN FOR PO/GT/NG USE GT SCH ×4 (09:00→21:00)
[2019-09-17] MEDS: PHENOBARBITAL 32.4 MG TABLET GT SCH ×2 (09:00→21:00)
[2019-09-17] MEDS: ACIDOPHILUS/BULGARICUS CHEW TAB PO SCH ×2 (09:00→21:00)
[2019-09-17] MEDS: GEMFIBROZIL 600 MG TABLET PO SCH ×2 (09:00→21:00)
[2019-09-17] MEDS: BENZOYL PEROXIDE 10% GEL 60 GM TUBE TP SCH ×2 (09:00)
[2019-09-17 10:47] VITALS: BP 99/60
[2019-09-17] MEDS ORDERED: ALBUTEROL SULFATE 1.25 MG/3 ML NEBU NEB SCH (13:30)
[2019-09-17] MEDS ORDERED: ALBUTEROL SULFATE 1.25 MG/3 ML NEBU NEB PRN ×2 (13:30)
[2019-09-17] MEDS ORDERED: IPRATROPIUM BROMIDE 0.5 MG/2.5 ML NEBU NEB PRN ×4 (13:30)
[2019-09-17] MEDS: ALBUTEROL SULFATE 1.25 MG/3 ML NEBU NEB SCH (19:27)
[2019-09-17 20:47] VITALS: BP 90/57
[2019-09-17] MEDS: OMEGA-3 FATTY ACIDS/FISH OIL CAPSULE GT SCH (21:00)
[2019-09-17] MEDS: VALPROIC ACID 250 MG/5 ML LIQUID UDC PO SCH (22:06)
[2019-09-18] MEDS: ALBUTEROL SULFATE 1.25 MG/3 ML NEBU NEB SCH ×4 (00:44→19:40)
[2019-09-18] MEDS: JEVITY 1.2 1000 ML LIQUID GT PRN (05:00)
[2019-09-18] MEDS: VALPROIC ACID 250 MG/5 ML LIQUID UDC GT SCH ×2 (06:11→14:12)
[2019-09-18] MEDS: PANTOPRAZOLE ORAL SUSPENSION 40 MG SUSPDR.PKT GT SCH (06:11)
[2019-09-18] MEDS: IPRATROPIUM BROMIDE 0.5 MG/2.5 ML NEBU NEB SCH ×3 (07:44→19:40)
[2019-09-18] MEDS ORDERED: PHENOBARBITAL 32.4 MG TABLET PO ONE ×4 (09:00→21:00)
[2019-09-18] MEDS: HYDROGEN PEROXIDE 3% 118 ML BOTTLE TP SCH ×2 (09:00→20:46)
[2019-09-18] MEDS: PHENOBARBITAL 32.4 MG TABLET GT SCH ×2 (09:02→21:52)
[2019-09-18] MEDS: NUTRISOURCE FIBER 4 GM PACKET GT SCH (09:02)
[2019-09-18] MEDS: VANCOMYCIN FOR PO/GT/NG USE GT SCH ×4 (09:02→21:52)
[2019-09-18] MEDS: BACLOFEN 20 MG TABLET GT SCH ×3 (09:02→21:52)
[2019-09-18] MEDS: Z GUARD REMEDY PASTE TP SCH ×2 (09:03→21:54)
[2019-09-18] MEDS: BENZOYL PEROXIDE 10% GEL 60 GM TUBE TP SCH ×2 (09:03)
[2019-09-18] MEDS: ACIDOPHILUS/BULGARICUS CHEW TAB PO SCH ×2 (09:03→21:54)
[2019-09-18] MEDS: GEMFIBROZIL 600 MG TABLET PO SCH ×2 (09:03→21:54)
[2019-09-18 10:42] VITALS: BP 106/72
[2019-09-18 20:06] VITALS: BP 117/74
[2019-09-18] MEDS: OMEGA-3 FATTY ACIDS/FISH OIL CAPSULE GT SCH (21:52)
[2019-09-18] MEDS: VALPROIC ACID 250 MG/5 ML LIQUID UDC PO SCH (21:54)
[2019-09-19] MEDS: ALBUTEROL SULFATE 1.25 MG/3 ML NEBU NEB SCH ×4 (01:19→19:40)
[2019-09-19] MEDS: IPRATROPIUM BROMIDE 0.5 MG/2.5 ML NEBU NEB SCH ×4 (01:19→19:40)
[2019-09-19] MEDS: PANTOPRAZOLE ORAL SUSPENSION 40 MG SUSPDR.PKT GT SCH (05:00)
[2019-09-19] MEDS: VALPROIC ACID 250 MG/5 ML LIQUID UDC GT SCH ×2 (05:00→14:25)
[2019-09-19] MEDS: JEVITY 1.2 1000 ML LIQUID GT PRN (05:00)
[2019-09-19] MEDS ORDERED: PHENOBARBITAL 32.4 MG TABLET PO ONE ×4 (09:00→21:00)
[2019-09-19] MEDS: HYDROGEN PEROXIDE 3% 118 ML BOTTLE TP SCH ×2 (09:00→21:00)
[2019-09-19] MEDS: VANCOMYCIN FOR PO/GT/NG USE GT SCH ×4 (09:11→21:02)
[2019-09-19] MEDS: GEMFIBROZIL 600 MG TABLET PO SCH ×2 (09:11→21:02)
[2019-09-19] MEDS: ACIDOPHILUS/BULGARICUS CHEW TAB PO SCH ×2 (09:11→21:02)
[2019-09-19] MEDS: PHENOBARBITAL 32.4 MG TABLET GT SCH ×2 (09:11→21:02)
[2019-09-19] MEDS: Z GUARD REMEDY PASTE TP SCH ×2 (09:11→21:02)
[2019-09-19] MEDS: BACLOFEN 20 MG TABLET GT SCH ×3 (09:11→21:02)
[2019-09-19] MEDS: BENZOYL PEROXIDE 10% GEL 60 GM TUBE TP SCH ×2 (09:11)
[2019-09-19] MEDS: NUTRISOURCE FIBER 4 GM PACKET GT SCH (09:11)
[2019-09-19 11:07] VITALS: BP 115/73
[2019-09-19 20:05] VITALS: BP 97/50
[2019-09-19] MEDS: VALPROIC ACID 250 MG/5 ML LIQUID UDC PO SCH (21:02)
[2019-09-19] MEDS: OMEGA-3 FATTY ACIDS/FISH OIL CAPSULE GT SCH (21:02)
[2019-09-20] MEDS: IPRATROPIUM BROMIDE 0.5 MG/2.5 ML NEBU NEB SCH ×4 (00:48→19:13)
[2019-09-20] MEDS: ALBUTEROL SULFATE 1.25 MG/3 ML NEBU NEB SCH ×4 (00:48→19:14)
[2019-09-20] MEDS: PANTOPRAZOLE ORAL SUSPENSION 40 MG SUSPDR.PKT GT SCH (05:41)
[2019-09-20] MEDS: VALPROIC ACID 250 MG/5 ML LIQUID UDC GT SCH ×2 (05:41→14:17)
[2019-09-20] MEDS: HYDROGEN PEROXIDE 3% 118 ML BOTTLE TP SCH ×2 (08:00→19:14)
[2019-09-20] MEDS ORDERED: PHENOBARBITAL 32.4 MG TABLET PO ONE ×4 (09:00→21:00)
[2019-09-20] MEDS: Z GUARD REMEDY PASTE TP SCH ×2 (09:20→21:04)
[2019-09-20] MEDS: ACIDOPHILUS/BULGARICUS CHEW TAB PO SCH ×2 (09:21→21:04)
[2019-09-20] MEDS: GEMFIBROZIL 600 MG TABLET PO SCH ×2 (09:21→21:04)
[2019-09-20] MEDS: BENZOYL PEROXIDE 10% GEL 60 GM TUBE TP SCH ×2 (09:21)
[2019-09-20] MEDS: NUTRISOURCE FIBER 4 GM PACKET GT SCH (09:22)
[2019-09-20] MEDS: BACLOFEN 20 MG TABLET GT SCH ×3 (09:22→21:04)
[2019-09-20] MEDS: PHENOBARBITAL 32.4 MG TABLET GT SCH ×2 (09:22→21:04)
[2019-09-20] MEDS: JEVITY 1.2 1000 ML LIQUID GT PRN (09:23)
[2019-09-20 10:00] VITALS: BP 95/56
[2019-09-20 20:07] VITALS: BP 110/63
[2019-09-20] MEDS: VALPROIC ACID 250 MG/5 ML LIQUID UDC PO SCH (21:04)
[2019-09-20] MEDS: OMEGA-3 FATTY ACIDS/FISH OIL CAPSULE GT SCH (21:04)
[2019-09-21] MEDS: IPRATROPIUM BROMIDE 0.5 MG/2.5 ML NEBU NEB SCH ×4 (00:50→19:22)
[2019-09-21] MEDS: ALBUTEROL SULFATE 1.25 MG/3 ML NEBU NEB SCH ×4 (00:50→19:22)
[2019-09-21] MEDS: JEVITY 1.2 1000 ML LIQUID GT PRN (02:50)
[2019-09-21] MEDS: VALPROIC ACID 250 MG/5 ML LIQUID UDC GT SCH ×2 (05:11→14:53)
[2019-09-21] MEDS: PANTOPRAZOLE ORAL SUSPENSION 40 MG SUSPDR.PKT GT SCH (05:11)
[2019-09-21 08:01] VITALS: BP 99/54
[2019-09-21] MEDS: HYDROGEN PEROXIDE 3% 118 ML BOTTLE TP SCH ×2 (08:29→20:27)
[2019-09-21] MEDS ORDERED: PHENOBARBITAL 32.4 MG TABLET PO ONE ×4 (09:00→21:00)
[2019-09-21] MEDS: NUTRISOURCE FIBER 4 GM PACKET GT SCH (09:26)
[2019-09-21] MEDS: BACLOFEN 20 MG TABLET GT SCH ×3 (09:26→21:03)
[2019-09-21] MEDS: ACIDOPHILUS/BULGARICUS CHEW TAB PO SCH ×2 (09:27→21:03)
[2019-09-21] MEDS: GEMFIBROZIL 600 MG TABLET PO SCH ×2 (09:27→21:03)
[2019-09-21] MEDS: BENZOYL PEROXIDE 10% GEL 60 GM TUBE TP SCH ×2 (09:27)
[2019-09-21] MEDS: Z GUARD REMEDY PASTE TP SCH ×2 (09:27→21:03)
[2019-09-21] MEDS: PHENOBARBITAL 32.4 MG TABLET GT SCH ×2 (09:27→21:03)
[2019-09-21 20:06] VITALS: BP 106/86
[2019-09-21] MEDS: OMEGA-3 FATTY ACIDS/FISH OIL CAPSULE GT SCH (21:03)
[2019-09-21] MEDS: VALPROIC ACID 250 MG/5 ML LIQUID UDC PO SCH (21:04)
[2019-09-22] MEDS: IPRATROPIUM BROMIDE 0.5 MG/2.5 ML NEBU NEB SCH ×4 (00:54→19:31)
[2019-09-22] MEDS: ALBUTEROL SULFATE 1.25 MG/3 ML NEBU NEB SCH ×4 (00:54→19:31)
[2019-09-22] MEDS: JEVITY 1.2 1000 ML LIQUID GT PRN (02:18)
[2019-09-22] MEDS: VALPROIC ACID 250 MG/5 ML LIQUID UDC GT SCH ×2 (05:08→13:59)
[2019-09-22] MEDS: PANTOPRAZOLE ORAL SUSPENSION 40 MG SUSPDR.PKT GT SCH (05:08)
[2019-09-22 08:01] VITALS: BP 99/64
[2019-09-22] MEDS ORDERED: PHENOBARBITAL 32.4 MG TABLET PO ONE ×4 (09:00→21:00)
[2019-09-22] MEDS: BENZOYL PEROXIDE 10% GEL 60 GM TUBE TP SCH ×2 (09:07)
[2019-09-22] MEDS: ACIDOPHILUS/BULGARICUS CHEW TAB PO SCH ×2 (09:07→21:00)
[2019-09-22] MEDS: BACLOFEN 20 MG TABLET GT SCH ×3 (09:07→21:00)
[2019-09-22] MEDS: NUTRISOURCE FIBER 4 GM PACKET GT SCH (09:07)
[2019-09-22] MEDS: Z GUARD REMEDY PASTE TP SCH ×2 (09:07→21:00)
[2019-09-22] MEDS: GEMFIBROZIL 600 MG TABLET PO SCH ×2 (09:07→21:00)
[2019-09-22] MEDS: PHENOBARBITAL 32.4 MG TABLET GT SCH ×2 (09:07→21:00)
[2019-09-22] MEDS: HYDROGEN PEROXIDE 3% 118 ML BOTTLE TP SCH ×2 (09:35→20:35)
[2019-09-22 20:24] VITALS: BP 137/82
[2019-09-22] MEDS: OMEGA-3 FATTY ACIDS/FISH OIL CAPSULE GT SCH (21:00)
[2019-09-22] MEDS: VALPROIC ACID 250 MG/5 ML LIQUID UDC PO SCH (22:28)
[2019-09-23] MEDS: ALBUTEROL SULFATE 1.25 MG/3 ML NEBU NEB SCH ×4 (01:05→19:24)
[2019-09-23] MEDS: IPRATROPIUM BROMIDE 0.5 MG/2.5 ML NEBU NEB SCH ×4 (01:05→19:24)
[2019-09-23] MEDS: PANTOPRAZOLE ORAL SUSPENSION 40 MG SUSPDR.PKT GT SCH (06:18)
[2019-09-23] MEDS: VALPROIC ACID 250 MG/5 ML LIQUID UDC GT SCH ×2 (06:18→14:32)
[2019-09-23 08:01] VITALS: BP 117/56
[2019-09-23] MEDS ORDERED: PHENOBARBITAL 32.4 MG TABLET PO ONE ×4 (09:00→21:00)
[2019-09-23] MEDS: HYDROGEN PEROXIDE 3% 118 ML BOTTLE TP SCH ×2 (09:34→21:52)
[2019-09-23] MEDS: BENZOYL PEROXIDE 10% GEL 60 GM TUBE TP SCH ×2 (09:52)
[2019-09-23] MEDS: NUTRISOURCE FIBER 4 GM PACKET GT SCH (09:52)
[2019-09-23] MEDS: Z GUARD REMEDY PASTE TP SCH ×2 (09:52→20:39)
[2019-09-23] MEDS: GEMFIBROZIL 600 MG TABLET PO SCH ×2 (09:52→20:39)
[2019-09-23] MEDS: BACLOFEN 20 MG TABLET GT SCH ×3 (09:52→20:39)
[2019-09-23] MEDS: PHENOBARBITAL 32.4 MG TABLET GT SCH ×2 (09:52→20:39)
[2019-09-23] MEDS: ACIDOPHILUS/BULGARICUS CHEW TAB PO SCH ×2 (09:52→20:39)
--- NOTE | 2019-09-23 15:31 | NUR ---
2:30pm: This SW and Subacute Interactive Video Technician Jonathon Cantu attempted to call patient's mother Sade twice [phone], but were unsuccessful on both attempts. About 30 minutes later, Sade called back and this SW and RETAIL AGENT Angelica were able to speak with her, informing her that per advisement from [facility], [facility], and CDC, visitation restrictions must continue to remain in place for all flight service agent care facilities in order to protect the health and safety of residents and staff. Therefore [facility] will continue to restrict all visitations, until further notice. Sade expressed understanding.
[2019-09-23] MEDS: JEVITY 1.2 1000 ML LIQUID GT PRN (20:39)
[2019-09-23] MEDS: OMEGA-3 FATTY ACIDS/FISH OIL CAPSULE GT SCH (20:39)
[2019-09-23 20:56] VITALS: BP 115/79
[2019-09-23] MEDS: VALPROIC ACID 250 MG/5 ML LIQUID UDC PO SCH (22:00)
[2019-09-24] MEDS: IPRATROPIUM BROMIDE 0.5 MG/2.5 ML NEBU NEB SCH ×4 (01:23→19:43)
[2019-09-24] MEDS: ALBUTEROL SULFATE 1.25 MG/3 ML NEBU NEB SCH ×4 (01:23→19:43)
[2019-09-24] MEDS: VALPROIC ACID 250 MG/5 ML LIQUID UDC GT SCH ×2 (06:23→14:08)
[2019-09-24] MEDS: PANTOPRAZOLE ORAL SUSPENSION 40 MG SUSPDR.PKT GT SCH (06:23)
[2019-09-24] MEDS ORDERED: PHENOBARBITAL 32.4 MG TABLET PO ONE ×4 (09:00→21:00)
[2019-09-24] MEDS: ACIDOPHILUS/BULGARICUS CHEW TAB PO SCH ×2 (09:02→20:08)
[2019-09-24] MEDS: NUTRISOURCE FIBER 4 GM PACKET GT SCH (09:02)
[2019-09-24] MEDS: PHENOBARBITAL 32.4 MG TABLET GT SCH ×2 (09:02→20:08)
[2019-09-24] MEDS: BENZOYL PEROXIDE 10% GEL 60 GM TUBE TP SCH ×2 (09:02)
[2019-09-24] MEDS: Z GUARD REMEDY PASTE TP SCH ×2 (09:02→20:08)
[2019-09-24] MEDS: BACLOFEN 20 MG TABLET GT SCH ×3 (09:02→20:08)
[2019-09-24] MEDS: GEMFIBROZIL 600 MG TABLET PO SCH ×2 (09:02→20:08)
[2019-09-24] MEDS: HYDROGEN PEROXIDE 3% 118 ML BOTTLE TP SCH ×2 (09:44→21:33)
[2019-09-24 11:49] VITALS: BP 101/65
--- NOTE | 2019-09-24 14:00 | NUR ---
Time Clock Mechanic care done by Dr Ramirez.
[2019-09-24] MEDS: JEVITY 1.2 1000 ML LIQUID GT PRN (16:39)
--- NOTE | 2019-09-24 18:16 | NUR ---
Seen and examined by Dr Pena with no new orders.
[2019-09-24] MEDS: OMEGA-3 FATTY ACIDS/FISH OIL CAPSULE GT SCH (20:08)
[2019-09-24 20:39] VITALS: BP 101/58
[2019-09-24] MEDS: VALPROIC ACID 250 MG/5 ML LIQUID UDC PO SCH (22:28)
[2019-09-25] MEDS: ALBUTEROL SULFATE 1.25 MG/3 ML NEBU NEB SCH ×4 (01:23→19:37)
[2019-09-25] MEDS: IPRATROPIUM BROMIDE 0.5 MG/2.5 ML NEBU NEB SCH ×4 (01:23→19:37)
[2019-09-25] MEDS: PANTOPRAZOLE ORAL SUSPENSION 40 MG SUSPDR.PKT GT SCH (06:25)
[2019-09-25] MEDS: VALPROIC ACID 250 MG/5 ML LIQUID UDC GT SCH ×2 (06:25→13:47)
[2019-09-25 08:04] VITALS: BP 90/52
[2019-09-25] MEDS: PHENOBARBITAL 32.4 MG TABLET GT SCH ×2 (08:41→20:32)
[2019-09-25] MEDS: GEMFIBROZIL 600 MG TABLET PO SCH ×2 (08:42→20:32)
[2019-09-25] MEDS: NUTRISOURCE FIBER 4 GM PACKET GT SCH (08:42)
[2019-09-25] MEDS: BACLOFEN 20 MG TABLET GT SCH ×3 (08:42→20:32)
[2019-09-25] MEDS: ACIDOPHILUS/BULGARICUS CHEW TAB PO SCH ×2 (08:43→20:32)
[2019-09-25] MEDS: BENZOYL PEROXIDE 10% GEL 60 GM TUBE TP SCH ×2 (08:43)
[2019-09-25] MEDS: Z GUARD REMEDY PASTE TP SCH ×2 (08:43→20:32)
[2019-09-25] MEDS ORDERED: PHENOBARBITAL 32.4 MG TABLET PO ONE ×2 (09:00)
[2019-09-25] MEDS: HYDROGEN PEROXIDE 3% 118 ML BOTTLE TP SCH ×2 (09:40→20:50)
--- NOTE | 2019-09-25 18:00 | NUR ---
SEEN BY DR. ALMAGUER AND WITH NNO.
[2019-09-25] MEDS: OMEGA-3 FATTY ACIDS/FISH OIL CAPSULE GT SCH (20:32)
[2019-09-25 20:53] VITALS: BP 93/53
[2019-09-25] MEDS: VALPROIC ACID 250 MG/5 ML LIQUID UDC PO SCH (22:51)
[2019-09-26] MEDS: IPRATROPIUM BROMIDE 0.5 MG/2.5 ML NEBU NEB SCH ×4 (00:59→20:03)
[2019-09-26] MEDS: ALBUTEROL SULFATE 1.25 MG/3 ML NEBU NEB SCH ×4 (00:59→20:03)
[2019-09-26] MEDS: JEVITY 1.2 1000 ML LIQUID GT PRN (03:25)
[2019-09-26] MEDS: VALPROIC ACID 250 MG/5 ML LIQUID UDC GT SCH ×2 (06:26→13:27)
[2019-09-26] MEDS: PANTOPRAZOLE ORAL SUSPENSION 40 MG SUSPDR.PKT GT SCH (06:26)
[2019-09-26] MEDS: GEMFIBROZIL 600 MG TABLET PO SCH ×2 (08:28→21:32)
[2019-09-26] MEDS: BACLOFEN 20 MG TABLET GT SCH ×3 (08:28→21:31)
[2019-09-26] MEDS: NUTRISOURCE FIBER 4 GM PACKET GT SCH (08:28)
[2019-09-26] MEDS: PHENOBARBITAL 32.4 MG TABLET GT SCH ×2 (08:28→21:29)
[2019-09-26] MEDS: ACIDOPHILUS/BULGARICUS CHEW TAB PO SCH ×2 (08:29→21:31)
[2019-09-26] MEDS: Z GUARD REMEDY PASTE TP SCH ×2 (08:29→21:32)
[2019-09-26] MEDS: BENZOYL PEROXIDE 10% GEL 60 GM TUBE TP SCH ×2 (08:29)
[2019-09-26] MEDS: HYDROGEN PEROXIDE 3% 118 ML BOTTLE TP SCH ×2 (09:00→21:20)
[2019-09-26 10:40] VITALS: BP 104/94
--- NOTE | 2019-09-26 15:00 | NUR ---
SEEN BY SLY TILLEY N.P.AND WITH CAROLINO.
[2019-09-26 20:31] VITALS: BP 113/69
[2019-09-26] MEDS: OMEGA-3 FATTY ACIDS/FISH OIL CAPSULE GT SCH (21:28)
[2019-09-26] MEDS: VALPROIC ACID 250 MG/5 ML LIQUID UDC PO SCH (21:32)
[2019-09-27] MEDS: JEVITY 1.2 1000 ML LIQUID GT PRN (01:04)
[2019-09-27] MEDS: ALBUTEROL SULFATE 1.25 MG/3 ML NEBU NEB SCH ×4 (01:46→20:06)
[2019-09-27] MEDS: IPRATROPIUM BROMIDE 0.5 MG/2.5 ML NEBU NEB SCH ×4 (01:46→20:06)
[2019-09-27] MEDS: PANTOPRAZOLE ORAL SUSPENSION 40 MG SUSPDR.PKT GT SCH (06:55)
[2019-09-27] MEDS: VALPROIC ACID 250 MG/5 ML LIQUID UDC GT SCH ×2 (06:55→13:22)
[2019-09-27] MEDS: HYDROGEN PEROXIDE 3% 118 ML BOTTLE TP SCH ×2 (07:50→21:48)
[2019-09-27] MEDS: NUTRISOURCE FIBER 4 GM PACKET GT SCH (08:26)
[2019-09-27] MEDS: PHENOBARBITAL 32.4 MG TABLET GT SCH ×2 (08:26→21:57)
[2019-09-27] MEDS: ACIDOPHILUS/BULGARICUS CHEW TAB PO SCH ×2 (08:26→21:48)
[2019-09-27] MEDS: BACLOFEN 20 MG TABLET GT SCH ×3 (08:26→21:46)
[2019-09-27] MEDS: GEMFIBROZIL 600 MG TABLET PO SCH ×2 (08:27→21:49)
[2019-09-27] MEDS: BENZOYL PEROXIDE 10% GEL 60 GM TUBE TP SCH ×2 (08:27→08:28)
[2019-09-27] MEDS: Z GUARD REMEDY PASTE TP SCH ×2 (08:29→21:48)
[2019-09-27 08:30] VITALS: BP 107/96
[2019-09-27 19:46] VITALS: BP 116/72
[2019-09-27] MEDS: OMEGA-3 FATTY ACIDS/FISH OIL CAPSULE GT SCH (21:45)
[2019-09-27] MEDS: VALPROIC ACID 250 MG/5 ML LIQUID UDC PO SCH (21:48)
[2019-09-28] MEDS: ALBUTEROL SULFATE 1.25 MG/3 ML NEBU NEB SCH ×4 (01:12→19:35)
[2019-09-28] MEDS: IPRATROPIUM BROMIDE 0.5 MG/2.5 ML NEBU NEB SCH ×4 (01:12→19:35)
[2019-09-28] MEDS: PANTOPRAZOLE ORAL SUSPENSION 40 MG SUSPDR.PKT GT SCH (05:21)
[2019-09-28] MEDS: VALPROIC ACID 250 MG/5 ML LIQUID UDC GT SCH ×2 (05:21→14:00)
[2019-09-28 08:01] VITALS: BP 104/58
[2019-09-28] MEDS: GEMFIBROZIL 600 MG TABLET PO SCH ×2 (08:43→21:31)
[2019-09-28] MEDS: BENZOYL PEROXIDE 10% GEL 60 GM TUBE TP SCH ×2 (08:43)
[2019-09-28] MEDS: ACIDOPHILUS/BULGARICUS CHEW TAB PO SCH ×2 (08:43→21:30)
[2019-09-28] MEDS: PHENOBARBITAL 32.4 MG TABLET GT SCH ×2 (08:43→21:36)
[2019-09-28] MEDS: BACLOFEN 20 MG TABLET GT SCH ×3 (08:43→21:30)
[2019-09-28] MEDS: Z GUARD REMEDY PASTE TP SCH ×2 (08:43→21:31)
[2019-09-28] MEDS: NUTRISOURCE FIBER 4 GM PACKET GT SCH (08:43)
[2019-09-28] MEDS ORDERED: PHENOBARBITAL 32.4 MG TABLET PO ONE ×4 (09:00→21:00)
[2019-09-28] MEDS: HYDROGEN PEROXIDE 3% 118 ML BOTTLE TP SCH ×2 (09:23→20:22)
[2019-09-28 19:56] VITALS: BP 104/60
[2019-09-28] MEDS: OMEGA-3 FATTY ACIDS/FISH OIL CAPSULE GT SCH (21:29)
[2019-09-28] MEDS: VALPROIC ACID 250 MG/5 ML LIQUID UDC PO SCH (21:31)
[2019-09-29] MEDS: IPRATROPIUM BROMIDE 0.5 MG/2.5 ML NEBU NEB SCH ×4 (00:42→19:32)
[2019-09-29] MEDS: ALBUTEROL SULFATE 1.25 MG/3 ML NEBU NEB SCH ×4 (00:42→19:32)
[2019-09-29] MEDS: JEVITY 1.2 1000 ML LIQUID GT PRN ×2 (02:01→22:40)
[2019-09-29] MEDS: PANTOPRAZOLE ORAL SUSPENSION 40 MG SUSPDR.PKT GT SCH (05:26)
[2019-09-29] MEDS: VALPROIC ACID 250 MG/5 ML LIQUID UDC GT SCH ×2 (05:26→13:14)
[2019-09-29 08:01] VITALS: BP 112/74
[2019-09-29] MEDS: ACIDOPHILUS/BULGARICUS CHEW TAB PO SCH ×2 (08:17→22:00)
[2019-09-29] MEDS: PHENOBARBITAL 32.4 MG TABLET GT SCH ×2 (08:17→22:00)
[2019-09-29] MEDS: NUTRISOURCE FIBER 4 GM PACKET GT SCH (08:17)
[2019-09-29] MEDS: BACLOFEN 20 MG TABLET GT SCH ×3 (08:17→22:00)
[2019-09-29] MEDS: GEMFIBROZIL 600 MG TABLET PO SCH ×2 (08:18→22:00)
[2019-09-29] MEDS: Z GUARD REMEDY PASTE TP SCH ×2 (08:19→22:00)
[2019-09-29] MEDS: HYDROGEN PEROXIDE 3% 118 ML BOTTLE TP SCH ×2 (08:19→21:09)
[2019-09-29] MEDS: BENZOYL PEROXIDE 10% GEL 60 GM TUBE TP SCH ×2 (08:19)
[2019-09-29] MEDS ORDERED: PHENOBARBITAL 32.4 MG TABLET PO ONE ×4 (09:00→21:00)
--- NOTE | 2019-09-29 10:20 | NUR ---
SEEN AND ASSESSED BY DR. PLAZA AND WITH NEW ORDER FOR CRANBERRY JUICE TO ADM DAILY 4 OZ REQUESTED BY PT'S MOTHER SUPPLEMENT TO PREVENT INCREASED URINE SEDIMENTS.
--- NOTE | 2019-09-29 12:00 | NUR ---
SEEN BY YOLANDA Grider AND WITH NNO.
[2019-09-29 19:55] VITALS: BP 108/67
[2019-09-29] MEDS: OMEGA-3 FATTY ACIDS/FISH OIL CAPSULE GT SCH (22:00)
[2019-09-29] MEDS: VALPROIC ACID 250 MG/5 ML LIQUID UDC PO SCH (22:15)
[2019-09-30] MEDS: IPRATROPIUM BROMIDE 0.5 MG/2.5 ML NEBU NEB SCH ×4 (01:09→19:44)
[2019-09-30] MEDS: ALBUTEROL SULFATE 1.25 MG/3 ML NEBU NEB SCH ×4 (01:09→19:44)
[2019-09-30] MEDS: VALPROIC ACID 250 MG/5 ML LIQUID UDC GT SCH ×2 (05:31→14:28)
[2019-09-30] MEDS: PANTOPRAZOLE ORAL SUSPENSION 40 MG SUSPDR.PKT GT SCH (05:31)
[2019-09-30 08:01] VITALS: BP 92/58
[2019-09-30] MEDS: BACLOFEN 20 MG TABLET GT SCH ×3 (08:25→21:54)
[2019-09-30] MEDS: NUTRISOURCE FIBER 4 GM PACKET GT SCH (08:25)
[2019-09-30] MEDS: PHENOBARBITAL 32.4 MG TABLET GT SCH ×2 (08:30→21:56)
[2019-09-30] MEDS: ACIDOPHILUS/BULGARICUS CHEW TAB PO SCH ×2 (08:30→21:57)
[2019-09-30] MEDS: BENZOYL PEROXIDE 10% GEL 60 GM TUBE TP SCH ×2 (08:31)
[2019-09-30] MEDS: GEMFIBROZIL 600 MG TABLET PO SCH ×2 (08:31→21:57)
[2019-09-30] MEDS: Z GUARD REMEDY PASTE TP SCH ×2 (08:32→21:57)
[2019-09-30] MEDS ORDERED: PHENOBARBITAL 32.4 MG TABLET PO ONE ×4 (09:00→21:00)
[2019-09-30] MEDS: HYDROGEN PEROXIDE 3% 118 ML BOTTLE TP SCH ×2 (09:42→21:10)
--- NOTE | 2019-09-30 16:17 | NUR ---
INTERDISCIPLINARY PLAN OF CARE CONFERENCE was held today. Patient's mother was unable to participate in the meeting. Dr. Bowser and the Interdisciplinary Team reviewed the current plan of care in detail. RN reported on patient's current medical condition and findings of recent lab findings. See RN IDT conference notes. No major changes in condition were reported. Pharmacy discussed updates on patient's medications. See all disciplines IDT notes and physician's progress notes for additional details.
--- NOTE | 2019-09-30 16:30 | NUR ---
Pharmacy Update from Today's 09/30/19 IDT Meeting: Note: Patient was transferred to CCU 08/31-09/11 d/t fever, sepsis, hypotension requiring pressors and was found with aspiration PNA and UTI. Pt was stabilized, treated with appropriate antibiotics and readmitted to SA to finish abx courses. VS: Temp 97.5 BP 108/67 HR 75 LABS: (from 09/15/19, no new labs) Wbc 5.6H/H 11.8/35.4Plt 364 Na 139K 4.4Cl 103CO2 30BUN/SCr 11/0.3 BS 140Ca 9.3 MEDICATION USE REVIEWED: > Pt not on any anti-psych medications > Pt on Phenobarbital 64.8mg q12hr. Last level on 09/15/19 was 34.2 (15-39) > Pt on Valproic acid 1000mg qhs and 500mg qam and 1400. Last level on 09/15/19 was 65 (50-100). Within range, no reported seizure activity noted > Pt now on midodrine 20mg q8hr PRN sbp <90. So far, none used. Last BP 108/67 > Previously on lovenox, d/c'd in CCU d/t low plt concerns. Remains off DVT prophylaxis per MD PRN MED USAGE: (since readmit) Tylenol for pain/temp used x0 [place] 5/325 PRN used x0 Artificial tears PRN used x0 Bisacodyl supp used x2 docusate used x1 NEW/OTHER ORDERS NOTED: > Vanco PO via GT completed as of 09/19 Pt was reviewed and discussed in detail with no medication issues noted per team. Remains stable since transfer, no medication changes noted. No further recs per rx at this time, will continue to follow
[2019-09-30 20:14] VITALS: BP 114/80
[2019-09-30] MEDS: OMEGA-3 FATTY ACIDS/FISH OIL CAPSULE GT SCH (21:54)
[2019-09-30] MEDS: VALPROIC ACID 250 MG/5 ML LIQUID UDC PO SCH (21:57)
[2019-09-30] MEDS: JEVITY 1.2 1000 ML LIQUID GT PRN (22:03)
[2019-10-01] MEDS: IPRATROPIUM BROMIDE 0.5 MG/2.5 ML NEBU NEB SCH ×4 (01:31→20:08)
[2019-10-01] MEDS: ALBUTEROL SULFATE 1.25 MG/3 ML NEBU NEB SCH ×4 (01:31→20:08)
[2019-10-01] MEDS: VALPROIC ACID 250 MG/5 ML LIQUID UDC GT SCH ×2 (06:22→13:55)
[2019-10-01] MEDS: PANTOPRAZOLE ORAL SUSPENSION 40 MG SUSPDR.PKT GT SCH (06:22)
[2019-10-01] MEDS: NUTRISOURCE FIBER 4 GM PACKET GT SCH (08:16)
[2019-10-01] MEDS: ACIDOPHILUS/BULGARICUS CHEW TAB PO SCH ×2 (08:16→21:00)
[2019-10-01] MEDS: PHENOBARBITAL 32.4 MG TABLET GT SCH ×2 (08:16→21:00)
[2019-10-01] MEDS: BACLOFEN 20 MG TABLET GT SCH ×3 (08:16→21:00)
[2019-10-01] MEDS: BENZOYL PEROXIDE 10% GEL 60 GM TUBE TP SCH ×2 (08:18)
[2019-10-01] MEDS: GEMFIBROZIL 600 MG TABLET PO SCH ×2 (08:18→21:00)
[2019-10-01] MEDS: Z GUARD REMEDY PASTE TP SCH ×2 (08:19→21:00)
[2019-10-01] MEDS ORDERED: PHENOBARBITAL 32.4 MG TABLET PO ONE ×4 (09:00→21:00)
[2019-10-01] MEDS: HYDROGEN PEROXIDE 3% 118 ML BOTTLE TP SCH ×2 (09:35→21:36)
[2019-10-01 12:14] VITALS: BP 98/62
[2019-10-01 20:20] VITALS: BP 123/73
[2019-10-01] MEDS: OMEGA-3 FATTY ACIDS/FISH OIL CAPSULE GT SCH (21:00)
[2019-10-01] MEDS: VALPROIC ACID 250 MG/5 ML LIQUID UDC PO SCH (22:05)
[2019-10-01] MEDS: JEVITY 1.2 1000 ML LIQUID GT PRN (22:05)
[2019-10-02] MEDS: ALBUTEROL SULFATE 1.25 MG/3 ML NEBU NEB SCH ×4 (01:31→19:34)
[2019-10-02] MEDS: IPRATROPIUM BROMIDE 0.5 MG/2.5 ML NEBU NEB SCH ×4 (01:31→19:34)
[2019-10-02] MEDS: VALPROIC ACID 250 MG/5 ML LIQUID UDC GT SCH ×2 (06:11→13:18)
[2019-10-02] MEDS: PANTOPRAZOLE ORAL SUSPENSION 40 MG SUSPDR.PKT GT SCH (06:11)
[2019-10-02 07:30] VITALS: BP 105/62
[2019-10-02] MEDS: NUTRISOURCE FIBER 4 GM PACKET GT SCH (08:11)
[2019-10-02] MEDS: BACLOFEN 20 MG TABLET GT SCH ×3 (08:11→21:50)
[2019-10-02] MEDS: GEMFIBROZIL 600 MG TABLET PO SCH ×2 (08:12→21:53)
[2019-10-02] MEDS: Z GUARD REMEDY PASTE TP SCH ×2 (08:13→21:53)
[2019-10-02] MEDS: ACIDOPHILUS/BULGARICUS CHEW TAB PO SCH ×2 (08:17→21:52)
[2019-10-02] MEDS: PHENOBARBITAL 32.4 MG TABLET GT SCH ×2 (08:23→21:50)
[2019-10-02] MEDS: BENZOYL PEROXIDE 10% GEL 60 GM TUBE TP SCH ×2 (08:24)
[2019-10-02] MEDS: HYDROGEN PEROXIDE 3% 118 ML BOTTLE TP SCH ×2 (08:30→20:59)
[2019-10-02] MEDS ORDERED: PHENOBARBITAL 32.4 MG TABLET PO ONE ×4 (09:00→21:00)
[2019-10-02] MEDS: JEVITY 1.2 1000 ML LIQUID GT PRN (18:23)
--- NOTE | 2019-10-02 18:39 | NUR ---
SEEN AND EXAMINED BY DR. ALMAGUER, WITH NEW ORDERS, NOTED AND CARRIED OUT.
[2019-10-02 20:09] VITALS: BP 106/66
[2019-10-02] MEDS: OMEGA-3 FATTY ACIDS/FISH OIL CAPSULE GT SCH (21:50)
[2019-10-02] MEDS: VALPROIC ACID 250 MG/5 ML LIQUID UDC PO SCH (21:53)
[2019-10-03] MEDS: IPRATROPIUM BROMIDE 0.5 MG/2.5 ML NEBU NEB SCH ×4 (01:00→20:15)
[2019-10-03] MEDS: ALBUTEROL SULFATE 1.25 MG/3 ML NEBU NEB SCH ×4 (01:00→20:15)
[2019-10-03] MEDS: PANTOPRAZOLE ORAL SUSPENSION 40 MG SUSPDR.PKT GT SCH (06:15)
[2019-10-03] MEDS: VALPROIC ACID 250 MG/5 ML LIQUID UDC GT SCH ×2 (06:15→13:51)
[2019-10-03 08:30] VITALS: BP 121/71
[2019-10-03] MEDS: PHENOBARBITAL 32.4 MG TABLET GT SCH ×2 (09:11→21:00)
[2019-10-03] MEDS: BACLOFEN 20 MG TABLET GT SCH ×3 (09:11→21:00)
[2019-10-03] MEDS: HYDROGEN PEROXIDE 3% 118 ML BOTTLE TP SCH ×2 (09:13→21:16)
[2019-10-03] MEDS: GEMFIBROZIL 600 MG TABLET PO SCH ×2 (09:15→21:00)
[2019-10-03] MEDS: Z GUARD REMEDY PASTE TP SCH ×2 (09:15→21:00)
[2019-10-03] MEDS: ACIDOPHILUS/BULGARICUS CHEW TAB PO SCH ×2 (09:15→21:00)
[2019-10-03] MEDS: NUTRISOURCE FIBER 4 GM PACKET GT SCH (09:15)
[2019-10-03] MEDS: BENZOYL PEROXIDE 10% GEL 60 GM TUBE TP SCH ×2 (09:15)
[2019-10-03] MEDS: JEVITY 1.2 1000 ML LIQUID GT PRN (13:52)
[2019-10-03] MEDS: OMEGA-3 FATTY ACIDS/FISH OIL CAPSULE GT SCH (21:00)
[2019-10-03 21:20] VITALS: BP 106/69
[2019-10-03] MEDS: VALPROIC ACID 250 MG/5 ML LIQUID UDC PO SCH (22:08)
[2019-10-04] MEDS: ALBUTEROL SULFATE 1.25 MG/3 ML NEBU NEB SCH ×4 (01:33→19:31)
[2019-10-04] MEDS: IPRATROPIUM BROMIDE 0.5 MG/2.5 ML NEBU NEB SCH ×4 (01:33→19:31)
[2019-10-04] MEDS: VALPROIC ACID 250 MG/5 ML LIQUID UDC GT SCH ×2 (06:14→14:20)
[2019-10-04] MEDS: PANTOPRAZOLE ORAL SUSPENSION 40 MG SUSPDR.PKT GT SCH (06:14)
[2019-10-04] MEDS: HYDROGEN PEROXIDE 3% 118 ML BOTTLE TP SCH ×2 (07:45→21:14)
[2019-10-04 09:06] VITALS: BP 106/55
[2019-10-04] MEDS: BENZOYL PEROXIDE 10% GEL 60 GM TUBE TP SCH ×2 (09:07)
[2019-10-04] MEDS: PHENOBARBITAL 32.4 MG TABLET GT SCH ×2 (09:07→21:12)
[2019-10-04] MEDS: NUTRISOURCE FIBER 4 GM PACKET GT SCH (09:07)
[2019-10-04] MEDS: ACIDOPHILUS/BULGARICUS CHEW TAB PO SCH ×2 (09:07→21:13)
[2019-10-04] MEDS: GEMFIBROZIL 600 MG TABLET PO SCH ×2 (09:07→21:14)
[2019-10-04] MEDS: BACLOFEN 20 MG TABLET GT SCH ×3 (09:07→21:13)
[2019-10-04] MEDS: Z GUARD REMEDY PASTE TP SCH ×2 (09:07→21:14)
[2019-10-04 19:54] VITALS: BP 97/54
[2019-10-04] MEDS: OMEGA-3 FATTY ACIDS/FISH OIL CAPSULE GT SCH (21:13)
[2019-10-04] MEDS: VALPROIC ACID 250 MG/5 ML LIQUID UDC PO SCH (21:14)
[2019-10-05] MEDS: IPRATROPIUM BROMIDE 0.5 MG/2.5 ML NEBU NEB SCH ×4 (00:43→19:41)
[2019-10-05] MEDS: ALBUTEROL SULFATE 1.25 MG/3 ML NEBU NEB SCH ×4 (00:43→19:41)
[2019-10-05] MEDS: VALPROIC ACID 250 MG/5 ML LIQUID UDC GT SCH ×2 (05:05→14:15)
[2019-10-05] MEDS: PANTOPRAZOLE ORAL SUSPENSION 40 MG SUSPDR.PKT GT SCH (05:05)
[2019-10-05 08:00] VITALS: BP 100/58
[2019-10-05] MEDS: ACIDOPHILUS/BULGARICUS CHEW TAB PO SCH ×2 (08:43→21:27)
[2019-10-05] MEDS: BACLOFEN 20 MG TABLET GT SCH ×3 (08:43→21:28)
[2019-10-05] MEDS: Z GUARD REMEDY PASTE TP SCH ×2 (08:43→21:28)
[2019-10-05] MEDS: NUTRISOURCE FIBER 4 GM PACKET GT SCH (08:43)
[2019-10-05] MEDS: BENZOYL PEROXIDE 10% GEL 60 GM TUBE TP SCH ×2 (08:43)
[2019-10-05] MEDS: PHENOBARBITAL 32.4 MG TABLET GT SCH ×2 (08:43→21:27)
[2019-10-05] MEDS: GEMFIBROZIL 600 MG TABLET PO SCH ×2 (08:43→21:27)
[2019-10-05] MEDS: HYDROGEN PEROXIDE 3% 118 ML BOTTLE TP SCH ×2 (09:25→21:42)
[2019-10-05 20:32] VITALS: BP 96/57
[2019-10-05] MEDS ORDERED: PHENOBARBITAL 32.4 MG TABLET PO ONE ×2 (20:33)
[2019-10-05] MEDS: OMEGA-3 FATTY ACIDS/FISH OIL CAPSULE GT SCH (21:25)
[2019-10-05] MEDS: VALPROIC ACID 250 MG/5 ML LIQUID UDC PO SCH (21:26)
[2019-10-06] MEDS: IPRATROPIUM BROMIDE 0.5 MG/2.5 ML NEBU NEB SCH ×4 (02:11→19:21)
[2019-10-06] MEDS: ALBUTEROL SULFATE 1.25 MG/3 ML NEBU NEB SCH ×4 (02:11→19:21)
[2019-10-06] MEDS: PANTOPRAZOLE ORAL SUSPENSION 40 MG SUSPDR.PKT GT SCH (05:48)
[2019-10-06] MEDS: VALPROIC ACID 250 MG/5 ML LIQUID UDC GT SCH ×2 (05:48→14:05)
[2019-10-06 06:14] LABS: BASOPHILS % (AUTO) 0.3 % (0.0-2.0); EOSINOPHILS # (AUTO) 0.2 K/uL (0.0-0.7); EOSINOPHILS % (AUTO) 2.9 % (0.0-7.0); HEMATOCRIT 40.2 % (36.7-47.1); HEMOGLOBIN 13.5 g/dL (12.5-16.3); LYMPHOCYTES # (AUTO) 1.3 K/uL (20.0-40.0); LYMPHOCYTES % (AUTO) 19.8 % (20.5-51.5); MEAN CORPUSCULAR HEMOGLOBIN 32.1 uug (23.8-33.4); MEAN CORPUSCULAR HGB CONC 34 g/dL (32.5-36.3); MEAN CORPUSCULAR VOLUME 95.5 fL (73.0-96.2); MONOCYTES # (AUTO) 0.7 K/uL (2.0-10.0); MONOCYTES % (AUTO) 10.4 % (0.0-11.0); NEUTROPHILS # (AUTO) 4.4 K/uL (1.8-8.9); NEUTROPHILS % (AUTO) 66.6 % (38.5-71.5); PLATELET COUNT (AUTO) 172 K/uL (152-348); RED BLOOD CELL COUNT(AUTO) 4.21 MIL/uL (4.06-5.63); WHITE BLOOD COUNT (AUTO) 6.5 K/uL (3.6-10.2)
[2019-10-06 06:25] LABS: CARBON DIOXIDE 30 mmol/L (21-32); CHLORIDE 101 mmol/L (98-107); CREATININE 0.3 mg/dL (0.6-1.3); GLUCOSE 108 mg/dL (74-106); POTASSIUM 4.2 mmol/L (3.5-5.1); UREA NITROGEN, BLOOD 13 mg/dL (7-18)
[2019-10-06] MEDS: BACLOFEN 20 MG TABLET GT SCH ×3 (08:50→21:53)
[2019-10-06] MEDS: PHENOBARBITAL 32.4 MG TABLET GT SCH ×2 (08:50→21:54)
[2019-10-06] MEDS: GEMFIBROZIL 600 MG TABLET PO SCH ×2 (08:50→21:54)
[2019-10-06] MEDS: NUTRISOURCE FIBER 4 GM PACKET GT SCH (08:50)
[2019-10-06] MEDS: ACIDOPHILUS/BULGARICUS CHEW TAB PO SCH ×2 (08:50→21:54)
[2019-10-06] MEDS: BENZOYL PEROXIDE 10% GEL 60 GM TUBE TP SCH ×2 (08:50)
[2019-10-06] MEDS: Z GUARD REMEDY PASTE TP SCH ×2 (08:51→21:55)
[2019-10-06] MEDS ORDERED: PHENOBARBITAL 32.4 MG TABLET PO ONE ×4 (09:00→21:00)
[2019-10-06] MEDS: HYDROGEN PEROXIDE 3% 118 ML BOTTLE TP SCH ×2 (09:49→21:12)
--- NOTE | 2019-10-06 10:00 | NUR ---
TOMY received an envelope left by patient's mother Sade, which was a statement from [facility] for services provided to the patient on 08/05, 08/19, 08/30, and 09/10. TOMY called patient's insurance application investigator, Catherine Scruggs [phone] at patient's Work[employer] insurance. TOMY left a voicemail message for Catherine, asking for a call back to discuss how to process this statement.
[2019-10-06 20:25] VITALS: BP 105/72
[2019-10-06] MEDS: OMEGA-3 FATTY ACIDS/FISH OIL CAPSULE GT SCH (21:53)
[2019-10-06] MEDS: VALPROIC ACID 250 MG/5 ML LIQUID UDC PO SCH (21:55)
[2019-10-07] MEDS: ALBUTEROL SULFATE 1.25 MG/3 ML NEBU NEB SCH ×4 (00:44→20:27)
[2019-10-07] MEDS: IPRATROPIUM BROMIDE 0.5 MG/2.5 ML NEBU NEB SCH ×4 (00:44→20:27)
[2019-10-07] MEDS: JEVITY 1.2 1000 ML LIQUID GT PRN (03:06)
[2019-10-07] MEDS: PANTOPRAZOLE ORAL SUSPENSION 40 MG SUSPDR.PKT GT SCH (05:06)
[2019-10-07] MEDS: VALPROIC ACID 250 MG/5 ML LIQUID UDC GT SCH ×2 (05:06→14:00)
[2019-10-07 08:02] VITALS: BP_SYST 110; BP_SYST 116; BP_DIAS 68; BP_DIAS 81
[2019-10-07] MEDS: BACLOFEN 20 MG TABLET GT SCH ×3 (08:23→20:31)
[2019-10-07] MEDS: ACIDOPHILUS/BULGARICUS CHEW TAB PO SCH ×2 (08:24→20:31)
[2019-10-07] MEDS: PHENOBARBITAL 32.4 MG TABLET GT SCH ×2 (08:24→20:31)
[2019-10-07] MEDS: GEMFIBROZIL 600 MG TABLET PO SCH ×2 (08:24→20:31)
[2019-10-07] MEDS: NUTRISOURCE FIBER 4 GM PACKET GT SCH (08:24)
[2019-10-07] MEDS: BENZOYL PEROXIDE 10% GEL 60 GM TUBE TP SCH ×2 (08:25)
[2019-10-07] MEDS: Z GUARD REMEDY PASTE TP SCH ×2 (08:26→20:31)
[2019-10-07] MEDS: HYDROGEN PEROXIDE 3% 118 ML BOTTLE TP SCH ×2 (09:00→21:00)
[2019-10-07] MEDS ORDERED: PHENOBARBITAL 32.4 MG TABLET PO ONE ×4 (09:00→21:00)
--- NOTE | 2019-10-07 19:14 | NUR ---
Seen and examined by Sandra BENSON ,no new orders noted.
[2019-10-07] MEDS: OMEGA-3 FATTY ACIDS/FISH OIL CAPSULE GT SCH (20:30)
[2019-10-07 20:55] VITALS: BP 113/65
[2019-10-07] MEDS: VALPROIC ACID 250 MG/5 ML LIQUID UDC PO SCH (22:41)
[2019-10-08] MEDS: IPRATROPIUM BROMIDE 0.5 MG/2.5 ML NEBU NEB SCH ×4 (01:05→19:29)
[2019-10-08] MEDS: ALBUTEROL SULFATE 1.25 MG/3 ML NEBU NEB SCH ×4 (01:05→19:29)
[2019-10-08] MEDS: VALPROIC ACID 250 MG/5 ML LIQUID UDC GT SCH ×2 (06:02→14:20)
[2019-10-08] MEDS: PANTOPRAZOLE ORAL SUSPENSION 40 MG SUSPDR.PKT GT SCH (06:03)
--- NOTE | 2019-10-08 06:41 | NUR ---
Patient is afebrile, noted with pimples like bumpy and red on the face near his ears and the back of his ears. No bleeding noted, currently on Benzoyl peroxide 10% gel for chronic folliculitis, good skin care done, kept clean and comfortable.
[2019-10-08 08:00] VITALS: BP 110/67
[2019-10-08] MEDS ORDERED: PHENOBARBITAL 32.4 MG TABLET PO ONE ×4 (09:00→21:00)
[2019-10-08] MEDS: BACLOFEN 20 MG TABLET GT SCH ×3 (09:13→20:43)
[2019-10-08] MEDS: GEMFIBROZIL 600 MG TABLET PO SCH ×2 (09:14→20:43)
[2019-10-08] MEDS: PHENOBARBITAL 32.4 MG TABLET GT SCH ×2 (09:14→20:43)
[2019-10-08] MEDS: ACIDOPHILUS/BULGARICUS CHEW TAB PO SCH ×2 (09:14→20:43)
[2019-10-08] MEDS: NUTRISOURCE FIBER 4 GM PACKET GT SCH (09:14)
[2019-10-08] MEDS: HYDROGEN PEROXIDE 3% 118 ML BOTTLE TP SCH ×2 (09:30→20:43)
--- NOTE | 2019-10-08 09:30 | NUR ---
Seen and examined by Dr Pena,aware pt has folliculitis on both ears,with new orders noted and carried out,to start Docycycline at 100 mg via gt daily,Aura pt's mother aware of new orders and agreed with plan of care.
[2019-10-08] MEDS: Z GUARD REMEDY PASTE TP SCH ×2 (09:51→20:43)
[2019-10-08] MEDS: DOXYCYCLINE HYCLATE 100 MG TABLET GT SCH ×2 (09:51→20:43)
[2019-10-08] MEDS: KETOCONAZOLE 2% CREAM 30 GM TUBE TP SCH ×2 (09:52→17:34)
--- NOTE | 2019-10-08 12:02 | NUR ---
TOMY faxed dermatology consultation order to Dr. Szymanski at [phone] (tel # [phone]). TOMY informed LUCAS Mcduffie that the order has been faxed.
--- NOTE | 2019-10-08 13:09 | NUR ---
TOMY received a call from Jennifer at Dr. Szymanski's office [phone] and informed this TOMY that the consultation fax had been received, but that Dr. Szymanski is currently only available for telemedicine. TOMY stated that TOMY would relay this information to administration and get back to Jennifer regarding guidelines for telemedicine. Jennifer expressed agreement. TOMY notified Trimming Inspector Coleman Marsh and Jonathon Cantu of above, and asked them to assist in this matter.
[2019-10-08] MEDS: JEVITY 1.2 1000 ML LIQUID GT PRN (14:33)
--- NOTE | 2019-10-08 19:30 | NUR ---
Pt start on ATB therapy for folliculitis on L and R earlobe ,no adverse reaction noted.
[2019-10-08 20:30] VITALS: BP 100/55
[2019-10-08] MEDS: OMEGA-3 FATTY ACIDS/FISH OIL CAPSULE GT SCH (20:43)
[2019-10-08] MEDS: VALPROIC ACID 250 MG/5 ML LIQUID UDC PO SCH (21:09)
[2019-10-09] MEDS: ALBUTEROL SULFATE 1.25 MG/3 ML NEBU NEB SCH ×4 (00:42→19:39)
[2019-10-09] MEDS: IPRATROPIUM BROMIDE 0.5 MG/2.5 ML NEBU NEB SCH ×4 (00:42→19:39)
[2019-10-09] MEDS: PANTOPRAZOLE ORAL SUSPENSION 40 MG SUSPDR.PKT GT SCH (05:12)
[2019-10-09] MEDS: VALPROIC ACID 250 MG/5 ML LIQUID UDC GT SCH ×2 (05:12→14:00)
[2019-10-09] MEDS: HYDROGEN PEROXIDE 3% 118 ML BOTTLE TP SCH ×2 (07:35→21:05)
[2019-10-09 08:00] VITALS: BP 99/66
[2019-10-09] MEDS: BACLOFEN 20 MG TABLET GT SCH ×3 (08:24→21:37)
[2019-10-09] MEDS: NUTRISOURCE FIBER 4 GM PACKET GT SCH (08:26)
[2019-10-09] MEDS: PHENOBARBITAL 32.4 MG TABLET GT SCH ×2 (08:26→21:37)
[2019-10-09] MEDS: GEMFIBROZIL 600 MG TABLET PO SCH ×2 (08:27→21:38)
[2019-10-09] MEDS: ACIDOPHILUS/BULGARICUS CHEW TAB PO SCH ×2 (08:27→21:38)
[2019-10-09] MEDS: DOXYCYCLINE HYCLATE 100 MG TABLET GT SCH ×2 (08:27→21:37)
[2019-10-09] MEDS: Z GUARD REMEDY PASTE TP SCH ×2 (09:00→21:38)
[2019-10-09] MEDS ORDERED: PHENOBARBITAL 32.4 MG TABLET PO ONE ×4 (09:00→21:00)
[2019-10-09] MEDS: KETOCONAZOLE 2% CREAM 30 GM TUBE TP SCH ×2 (09:00→17:18)
[2019-10-09] MEDS: JEVITY 1.2 1000 ML LIQUID GT PRN (15:58)
[2019-10-09 20:49] VITALS: BP 108/63
[2019-10-09] MEDS: OMEGA-3 FATTY ACIDS/FISH OIL CAPSULE GT SCH (21:36)
[2019-10-09] MEDS: VALPROIC ACID 250 MG/5 ML LIQUID UDC PO SCH (21:38)
[2019-10-10] MEDS: ALBUTEROL SULFATE 1.25 MG/3 ML NEBU NEB SCH ×4 (00:45→19:40)
[2019-10-10] MEDS: IPRATROPIUM BROMIDE 0.5 MG/2.5 ML NEBU NEB SCH ×4 (00:45→19:40)
[2019-10-10] MEDS: PANTOPRAZOLE ORAL SUSPENSION 40 MG SUSPDR.PKT GT SCH (05:05)
[2019-10-10] MEDS: VALPROIC ACID 250 MG/5 ML LIQUID UDC GT SCH ×2 (05:05→13:07)
[2019-10-10 08:02] VITALS: BP 103/59
[2019-10-10] MEDS: NUTRISOURCE FIBER 4 GM PACKET GT SCH (08:08)
[2019-10-10] MEDS: KETOCONAZOLE 2% CREAM 30 GM TUBE TP SCH ×2 (08:09→16:40)
[2019-10-10] MEDS: DOXYCYCLINE HYCLATE 100 MG TABLET GT SCH ×2 (08:10→21:53)
[2019-10-10] MEDS: Z GUARD REMEDY PASTE TP SCH ×2 (08:10→21:53)
[2019-10-10] MEDS: HYDROGEN PEROXIDE 3% 118 ML BOTTLE TP SCH ×2 (08:10→21:21)
[2019-10-10] MEDS: BACLOFEN 20 MG TABLET GT SCH ×3 (08:11→21:53)
[2019-10-10] MEDS: GEMFIBROZIL 600 MG TABLET PO SCH ×2 (08:11→21:53)
[2019-10-10] MEDS: PHENOBARBITAL 32.4 MG TABLET GT SCH ×2 (08:16→21:53)
[2019-10-10] MEDS: ACIDOPHILUS/BULGARICUS CHEW TAB PO SCH ×2 (08:16→21:53)
[2019-10-10] MEDS ORDERED: PHENOBARBITAL 32.4 MG TABLET PO ONE ×4 (09:00→21:00)
--- NOTE | 2019-10-10 11:08 | NUR ---
TOMY followed up with patient's health insurance assessor, Catherine Kael [phone] at patient's Work[employer] insurance, since SW had not heard back from Catherine since SW left Catherine a voicemail message on 10/05 (see SS note dated 10/05). TOMY was able to connect with Catherine. TOMY informed Catherine that patient had received a billing statement from [facility]. Catherine asked TOMY to fax the statement over to her and that she would follow up with the urologists office and coordinate all billing issues. TOMY thanked Catherine for her time. TOMY faxed the statement to Catherine at [phone].
--- NOTE | 2019-10-10 11:19 | NUR ---
TOMY called patient's mother Sade [phone] and was able to speak with her. TOMY informed Sade that SW spoke with patient's insurance premium auditor Catherine regarding the billing statement from [facility], and that Catherine had asked for this SW to fax the statement over to her and that she would then follow-up with urologists office. Sade thanked TOMY for her efforts and for providing her with an update. TOMY then checked in on how Sade was doing. Sade stated she was doing well, and was staying safe at home, however was worried about being unemployed. TOMY allowed Sade to express her feelings. TOMY validated Sade's feelings, and explored Sade's needs for any community resources (i.e. food kamara). Sade stated that she had everything she needed, and declined community resources at this time. Sade also expressed missing her son, and asked when the facility would be open for visitors. TOMY stated that the visitation restrictions needed to remain in place until the facility hears further instructions from the health department, and therefore TOMY stated that facility could not provide any specific date when the restrictions would be lifted. Sade expressed understanding. TOMY reminded Sade that the facility continues to offer video chat options with the patient, via [email or web address] or [employer]. Sade thanked TOMY and stated she would coordinate video chat sessions with the nurse.
[2019-10-10] MEDS: JEVITY 1.2 1000 ML LIQUID GT PRN (11:50)
[2019-10-10 20:08] VITALS: BP 102/67
[2019-10-10] MEDS: OMEGA-3 FATTY ACIDS/FISH OIL CAPSULE GT SCH (21:53)
[2019-10-10] MEDS: VALPROIC ACID 250 MG/5 ML LIQUID UDC PO SCH (21:53)
[2019-10-11] MEDS: IPRATROPIUM BROMIDE 0.5 MG/2.5 ML NEBU NEB SCH ×4 (01:15→19:35)
[2019-10-11] MEDS: ALBUTEROL SULFATE 1.25 MG/3 ML NEBU NEB SCH ×4 (01:15→19:25)
[2019-10-11] MEDS: JEVITY 1.2 1000 ML LIQUID GT PRN (04:27)
[2019-10-11] MEDS: PANTOPRAZOLE ORAL SUSPENSION 40 MG SUSPDR.PKT GT SCH (06:11)
[2019-10-11] MEDS: VALPROIC ACID 250 MG/5 ML LIQUID UDC GT SCH ×2 (06:11→14:22)
[2019-10-11 07:42] VITALS: BP 109/61
[2019-10-11] MEDS: Z GUARD REMEDY PASTE TP SCH ×2 (08:23→21:12)
[2019-10-11] MEDS: NUTRISOURCE FIBER 4 GM PACKET GT SCH (08:23)
[2019-10-11] MEDS: DOXYCYCLINE HYCLATE 100 MG TABLET GT SCH ×2 (08:23→21:12)
[2019-10-11] MEDS: GEMFIBROZIL 600 MG TABLET PO SCH ×2 (08:23→21:12)
[2019-10-11] MEDS: PHENOBARBITAL 32.4 MG TABLET GT SCH ×2 (08:23→21:12)
[2019-10-11] MEDS: ACIDOPHILUS/BULGARICUS CHEW TAB PO SCH ×2 (08:23→21:12)
[2019-10-11] MEDS: BACLOFEN 20 MG TABLET GT SCH ×3 (08:23→21:12)
[2019-10-11] MEDS: HYDROGEN PEROXIDE 3% 118 ML BOTTLE TP SCH ×2 (09:00→20:50)
[2019-10-11] MEDS: KETOCONAZOLE 2% CREAM 30 GM TUBE TP SCH ×2 (09:00→17:11)
[2019-10-11] MEDS ORDERED: PHENOBARBITAL 32.4 MG TABLET PO ONE ×4 (09:00→21:00)
--- NOTE | 2019-10-11 10:23 | NUR ---
SEEN AND EXAMINED BY UZMA CASTANO, RITO. WITH NO NEW ORDERS.
[2019-10-11 19:43] VITALS: BP 121/64
[2019-10-11] MEDS: OMEGA-3 FATTY ACIDS/FISH OIL CAPSULE GT SCH (21:12)
[2019-10-11] MEDS: VALPROIC ACID 250 MG/5 ML LIQUID UDC PO SCH (21:12)
[2019-10-12] MEDS: JEVITY 1.2 1000 ML LIQUID GT PRN (01:06)
[2019-10-12] MEDS: IPRATROPIUM BROMIDE 0.5 MG/2.5 ML NEBU NEB SCH ×4 (01:17→19:50)
[2019-10-12] MEDS: ALBUTEROL SULFATE 1.25 MG/3 ML NEBU NEB SCH ×4 (01:17→19:50)
[2019-10-12] MEDS: PANTOPRAZOLE ORAL SUSPENSION 40 MG SUSPDR.PKT GT SCH (05:11)
[2019-10-12] MEDS: VALPROIC ACID 250 MG/5 ML LIQUID UDC GT SCH ×2 (05:11→13:19)
[2019-10-12 08:00] VITALS: BP 96/62
[2019-10-12] MEDS: Z GUARD REMEDY PASTE TP SCH ×2 (08:31→21:54)
[2019-10-12] MEDS: KETOCONAZOLE 2% CREAM 30 GM TUBE TP SCH ×2 (08:32→17:15)
[2019-10-12] MEDS: BACLOFEN 20 MG TABLET GT SCH ×3 (08:33→21:53)
[2019-10-12] MEDS: NUTRISOURCE FIBER 4 GM PACKET GT SCH (08:34)
[2019-10-12] MEDS: GEMFIBROZIL 600 MG TABLET PO SCH ×2 (08:34→21:54)
[2019-10-12] MEDS: ACIDOPHILUS/BULGARICUS CHEW TAB PO SCH ×2 (08:34→21:54)
[2019-10-12] MEDS: DOXYCYCLINE HYCLATE 100 MG TABLET GT SCH ×2 (08:35→21:54)
[2019-10-12] MEDS: PHENOBARBITAL 32.4 MG TABLET GT SCH ×2 (08:41→21:53)
[2019-10-12] MEDS ORDERED: PHENOBARBITAL 32.4 MG TABLET PO ONE ×4 (09:00→21:00)
[2019-10-12] MEDS: HYDROGEN PEROXIDE 3% 118 ML BOTTLE TP SCH ×2 (09:00→21:11)
[2019-10-12 19:52] VITALS: BP 114/73
[2019-10-12] MEDS: OMEGA-3 FATTY ACIDS/FISH OIL CAPSULE GT SCH (21:53)
[2019-10-12] MEDS: VALPROIC ACID 250 MG/5 ML LIQUID UDC PO SCH (21:54)
--- NOTE | 2019-10-12 23:36 | NUR ---
Afebrile, remains on Doxycyline via gt for folliculitis, no adverse reactions noted. on ketoconazole 2% cream to face and scaly areas, kept skin clean and dry, will continue monitor.
[2019-10-13] MEDS: ALBUTEROL SULFATE 1.25 MG/3 ML NEBU NEB SCH ×4 (01:34→20:10)
[2019-10-13] MEDS: IPRATROPIUM BROMIDE 0.5 MG/2.5 ML NEBU NEB SCH ×4 (01:34→20:10)
[2019-10-13] MEDS: VALPROIC ACID 250 MG/5 ML LIQUID UDC GT SCH ×2 (05:39→14:30)
[2019-10-13] MEDS: PANTOPRAZOLE ORAL SUSPENSION 40 MG SUSPDR.PKT GT SCH (05:40)
[2019-10-13] MEDS: JEVITY 1.2 1000 ML LIQUID GT PRN (07:04)
[2019-10-13 08:00] VITALS: BP 91/55
[2019-10-13] MEDS ORDERED: PHENOBARBITAL 32.4 MG TABLET PO ONE ×4 (09:00→21:00)
[2019-10-13] MEDS: HYDROGEN PEROXIDE 3% 118 ML BOTTLE TP SCH ×2 (09:00→21:40)
[2019-10-13] MEDS: BACLOFEN 20 MG TABLET GT SCH ×3 (09:45→20:29)
[2019-10-13] MEDS: NUTRISOURCE FIBER 4 GM PACKET GT SCH (09:45)
[2019-10-13] MEDS: PHENOBARBITAL 32.4 MG TABLET GT SCH ×2 (09:46→20:29)
[2019-10-13] MEDS: GEMFIBROZIL 600 MG TABLET PO SCH ×2 (09:48→20:31)
[2019-10-13] MEDS: ACIDOPHILUS/BULGARICUS CHEW TAB PO SCH ×2 (09:48→20:31)
[2019-10-13] MEDS: KETOCONAZOLE 2% CREAM 30 GM TUBE TP SCH ×2 (09:48→18:00)
[2019-10-13] MEDS: Z GUARD REMEDY PASTE TP SCH ×2 (09:48→20:31)
[2019-10-13] MEDS: DOXYCYCLINE HYCLATE 100 MG TABLET GT SCH ×2 (09:48→20:30)
[2019-10-13] MEDS: OMEGA-3 FATTY ACIDS/FISH OIL CAPSULE GT SCH (20:29)
[2019-10-13 21:18] VITALS: BP 110/52
[2019-10-13] MEDS: VALPROIC ACID 250 MG/5 ML LIQUID UDC PO SCH (22:00)
[2019-10-14] MEDS: IPRATROPIUM BROMIDE 0.5 MG/2.5 ML NEBU NEB SCH ×4 (01:16→19:15)
[2019-10-14] MEDS: ALBUTEROL SULFATE 1.25 MG/3 ML NEBU NEB SCH ×4 (01:16→19:15)
[2019-10-14] MEDS: PANTOPRAZOLE ORAL SUSPENSION 40 MG SUSPDR.PKT GT SCH (05:21)
[2019-10-14] MEDS: VALPROIC ACID 250 MG/5 ML LIQUID UDC GT SCH ×2 (05:21→13:18)
[2019-10-14] MEDS: JEVITY 1.2 1000 ML LIQUID GT PRN ×2 (06:58→12:58)
[2019-10-14 08:00] VITALS: BP 107/57
[2019-10-14] MEDS: HYDROGEN PEROXIDE 3% 118 ML BOTTLE TP SCH ×2 (09:00→21:23)
[2019-10-14] MEDS ORDERED: PHENOBARBITAL 32.4 MG TABLET PO ONE ×4 (09:00→21:00)
[2019-10-14] MEDS: PHENOBARBITAL 32.4 MG TABLET GT SCH ×2 (09:02→20:05)
[2019-10-14] MEDS: NUTRISOURCE FIBER 4 GM PACKET GT SCH (09:07)
[2019-10-14] MEDS: BACLOFEN 20 MG TABLET GT SCH ×3 (09:07→20:05)
[2019-10-14] MEDS: KETOCONAZOLE 2% CREAM 30 GM TUBE TP SCH ×2 (09:09→17:05)
[2019-10-14] MEDS: DOXYCYCLINE HYCLATE 100 MG TABLET GT SCH ×2 (09:09→20:05)
[2019-10-14] MEDS: Z GUARD REMEDY PASTE TP SCH ×2 (09:09→20:06)
[2019-10-14] MEDS: GEMFIBROZIL 600 MG TABLET PO SCH ×2 (09:09→20:06)
[2019-10-14] MEDS: ACIDOPHILUS/BULGARICUS CHEW TAB PO SCH ×2 (09:09→20:06)
--- NOTE | 2019-10-14 13:15 | NUR ---
Seen and examined by Sandra serna,with new orders noted and carried out.
--- NOTE | 2019-10-14 14:28 | NUR ---
INTERDISCIPLINARY PLAN OF CARE CONFERENCE was held today. Patient's mother was unable to participate in the meeting. Dr. Bowser and the Interdisciplinary Team reviewed the current plan of care in detail. RN reported on patient's medical condition and recent antibiotic skin treatment. See RN IDT conference notes. No major changes in condition were reported. See also all other disciplines IDT notes and physician's progress notes for additional details.
--- NOTE | 2019-10-14 15:23 | NUR ---
Pharmacy Update from Today's 10/14/19 IDT Meeting: Note: Patient was transferred to CCU 08/31-09/11 d/t fever, sepsis, hypotension requiring pressors and was found with aspiration PNA and UTI. Pt was stabilized, treated with appropriate antibiotics and readmitted to SA to finish abx courses. VS: Temp 97.9 BP 110/52 HR 76 LABS: (from 10/06/19) Wbc 6.5H/H 13.5/40.2Plt 172 Na 137K 4.2Cl 101CO2 30BUN/SCr 13/0.3 BS 108Ca 9.6 MEDICATION USE REVIEWED: > Pt not on any anti-psych medications > Pt on Phenobarbital 64.8mg q12hr. Last level on 09/15/19 was 34.2 (15-39) > Pt on Valproic acid 1000mg qhs and 500mg qam and 1400. Last level on 09/15/19 was 65 (50-100). Within range, no reported seizure activity noted > Pt now on midodrine 20mg q8hr PRN sbp <90. So far, none used. Last BP wnl > Previously on lovenox, d/c'd in CCU d/t low plt concerns. Remains off DVT prophylaxis per MD PRN MED USAGE: (August) Tylenol for pain/temp used x0 [place] 5/325 PRN used x0 Artificial tears PRN used x1 NEW/OTHER ORDERS NOTED: > Doxycycline 100mg daily 10/07-10/13 for folliculitis > Ketoconazole 2% cream to face for folliculitis 10/07-10/13 Pt was reviewed and discussed in detail with no medication issues noted per team. Continues with dermatology consults and orders for folliculitis treatment. Pt with chronic folliculitis and flares on and off but otherwise stable. Will continue to follow
[2019-10-14 15:43] LABS: BASOPHILS % (AUTO) 0.2 % (0.0-2.0); EOSINOPHILS # (AUTO) 0.1 K/uL (0.0-0.7); EOSINOPHILS % (AUTO) 1.9 % (0.0-7.0); HEMATOCRIT 38.9 % (36.7-47.1); LYMPHOCYTES % (AUTO) 17.7 % (20.5-51.5); MEAN CORPUSCULAR HEMOGLOBIN 31.8 uug (23.8-33.4); MEAN CORPUSCULAR HGB CONC 34 g/dL (32.5-36.3); MEAN CORPUSCULAR VOLUME 94.9 fL (73.0-96.2); MONOCYTES # (AUTO) 0.6 K/uL (2.0-10.0); MONOCYTES % (AUTO) 9.4 % (0.0-11.0); NEUTROPHILS # (AUTO) 4.2 K/uL (1.8-8.9); NEUTROPHILS % (AUTO) 70.8 % (38.5-71.5); PLATELET COUNT (AUTO) 223 K/uL (152-348); WHITE BLOOD COUNT (AUTO) 5.9 K/uL (3.6-10.2)
[2019-10-14 15:57] LABS: ALANINE AMINOTRANSFERASE 15 U/L (16-63); ALKALINE PHOSPHATASE 136 U/L (50-136); ASPARTATE AMINOTRANSFERASE 14 U/L (15-37); BILIRUBIN,TOTAL 0.2 mg/dL (0.2-1.0); CARBON DIOXIDE 33 mmol/L (21-32); CHLORIDE 102 mmol/L (98-107); CREATININE 0.3 mg/dL (0.6-1.3); GLUCOSE 119 mg/dL (74-106); POTASSIUM 4.4 mmol/L (3.5-5.1); TOTAL PROTEIN, SERUM 7.2 g/dL (6.4-8.2); UREA NITROGEN, BLOOD 11 mg/dL (7-18)
[2019-10-14 20:02] VITALS: BP 107/69
[2019-10-14] MEDS: OMEGA-3 FATTY ACIDS/FISH OIL CAPSULE GT SCH (20:05)
[2019-10-14] MEDS: VALPROIC ACID 250 MG/5 ML LIQUID UDC PO SCH (22:09)
[2019-10-15] MEDS: IPRATROPIUM BROMIDE 0.5 MG/2.5 ML NEBU NEB SCH ×4 (00:43→19:19)
[2019-10-15] MEDS: ALBUTEROL SULFATE 1.25 MG/3 ML NEBU NEB SCH ×4 (00:43→19:19)
[2019-10-15] MEDS: JEVITY 1.2 1000 ML LIQUID GT PRN ×2 (03:51→22:22)
[2019-10-15] MEDS: PANTOPRAZOLE ORAL SUSPENSION 40 MG SUSPDR.PKT GT SCH (05:30)
[2019-10-15] MEDS: VALPROIC ACID 250 MG/5 ML LIQUID UDC GT SCH ×2 (05:30→13:57)
[2019-10-15 08:00] VITALS: BP 113/75
[2019-10-15] MEDS ORDERED: PHENOBARBITAL 32.4 MG TABLET PO ONE ×2 (08:30)
[2019-10-15] MEDS: HYDROGEN PEROXIDE 3% 118 ML BOTTLE TP SCH ×2 (09:00→20:36)
[2019-10-15] MEDS: BACLOFEN 20 MG TABLET GT SCH ×3 (09:02→20:36)
[2019-10-15] MEDS: PHENOBARBITAL 32.4 MG TABLET GT SCH ×2 (09:02→20:44)
[2019-10-15] MEDS: ACIDOPHILUS/BULGARICUS CHEW TAB PO SCH ×2 (09:03→20:36)
[2019-10-15] MEDS: NUTRISOURCE FIBER 4 GM PACKET GT SCH (09:03)
[2019-10-15] MEDS: GEMFIBROZIL 600 MG TABLET PO SCH ×2 (09:04→20:36)
[2019-10-15] MEDS: Z GUARD REMEDY PASTE TP SCH ×2 (09:05→20:36)
--- NOTE | 2019-10-15 15:27 | NUR ---
New orders noted for Pt evaluation for L knee splint eval.
[2019-10-15 19:59] VITALS: BP 96/65
[2019-10-15] MEDS: OMEGA-3 FATTY ACIDS/FISH OIL CAPSULE GT SCH (20:36)
[2019-10-15] MEDS: VALPROIC ACID 250 MG/5 ML LIQUID UDC PO SCH (22:22)
[2019-10-16] MEDS: IPRATROPIUM BROMIDE 0.5 MG/2.5 ML NEBU NEB SCH ×4 (00:44→19:22)
[2019-10-16] MEDS: ALBUTEROL SULFATE 1.25 MG/3 ML NEBU NEB SCH ×4 (00:44→19:22)
[2019-10-16] MEDS: VALPROIC ACID 250 MG/5 ML LIQUID UDC GT SCH ×2 (05:24→13:21)
[2019-10-16] MEDS: PANTOPRAZOLE ORAL SUSPENSION 40 MG SUSPDR.PKT GT SCH (05:24)
--- NOTE | 2019-10-16 06:00 | NUR ---
PT SLEPT INTERMITTENTLY.. PT IN NO ACUTE DISTRESS. DRESSING CHANGED AND TURNED AND REPOSITIONED. PRESCRIBED MEDICATION GIVEN AND PT TOLERATED IT WELL. WILL ENDORSE TO INCOMING NURSE FOR CONTINUITY OF CARE.
[2019-10-16] MEDS: NUTRISOURCE FIBER 4 GM PACKET GT SCH (08:46)
[2019-10-16] MEDS: ACIDOPHILUS/BULGARICUS CHEW TAB PO SCH ×2 (08:46→21:51)
[2019-10-16] MEDS: Z GUARD REMEDY PASTE TP SCH ×2 (08:47→21:51)
[2019-10-16] MEDS: HYDROGEN PEROXIDE 3% 118 ML BOTTLE TP SCH ×2 (08:47→20:44)
[2019-10-16] MEDS: PHENOBARBITAL 32.4 MG TABLET GT SCH ×2 (08:59→21:51)
[2019-10-16] MEDS: BACLOFEN 20 MG TABLET GT SCH ×3 (09:00→21:51)
[2019-10-16] MEDS: GEMFIBROZIL 600 MG TABLET PO SCH ×2 (09:01→21:51)
[2019-10-16 10:38] VITALS: BP 103/59
--- NOTE | 2019-10-16 20:00 | NUR ---
SEEN BY SLY VERAS WITH NNO.
[2019-10-16 20:05] VITALS: BP 106/70
[2019-10-16] MEDS: OMEGA-3 FATTY ACIDS/FISH OIL CAPSULE GT SCH (21:51)
[2019-10-16] MEDS: VALPROIC ACID 250 MG/5 ML LIQUID UDC PO SCH (21:51)
[2019-10-16] MEDS: JEVITY 1.2 1000 ML LIQUID GT PRN (21:55)
[2019-10-17] MEDS: ALBUTEROL SULFATE 1.25 MG/3 ML NEBU NEB SCH ×4 (01:07→19:46)
[2019-10-17] MEDS: IPRATROPIUM BROMIDE 0.5 MG/2.5 ML NEBU NEB SCH ×4 (01:07→19:46)
[2019-10-17] MEDS: VALPROIC ACID 250 MG/5 ML LIQUID UDC GT SCH ×2 (06:12→14:12)
[2019-10-17] MEDS: PANTOPRAZOLE ORAL SUSPENSION 40 MG SUSPDR.PKT GT SCH (06:12)
[2019-10-17] MEDS: BACLOFEN 20 MG TABLET GT SCH ×3 (08:36→21:00)
[2019-10-17] MEDS: PHENOBARBITAL 32.4 MG TABLET GT SCH ×2 (08:36→21:00)
[2019-10-17] MEDS: NUTRISOURCE FIBER 4 GM PACKET GT SCH (08:36)
[2019-10-17] MEDS: GEMFIBROZIL 600 MG TABLET PO SCH ×2 (08:37→21:00)
[2019-10-17] MEDS: ACIDOPHILUS/BULGARICUS CHEW TAB PO SCH ×2 (08:37→21:00)
[2019-10-17] MEDS: Z GUARD REMEDY PASTE TP SCH ×2 (08:37→21:00)
[2019-10-17] MEDS: HYDROGEN PEROXIDE 3% 118 ML BOTTLE TP SCH ×2 (09:33→21:38)
[2019-10-17 10:42] VITALS: BP 99/56
[2019-10-17] MEDS: JEVITY 1.2 1000 ML LIQUID GT PRN (12:22)
--- NOTE | 2019-10-17 13:41 | NUR ---
TOMY received a call from Tiny at [employer] [phone] regarding patient's wheelchair parts that were recently ordered. Tiny informed this SW that the parts were ready for delivery. Tiny stated that the emissions testing and repair technician Drew will be delivering the items on Friday 10/20 between the hours of 1-2pm. Tiny stated that Demond will remain outside in the parking lot and asked if the wheelchair could be delivered to Demond outside, so he can make the necessary changes/adjustments outside, and that Demond will also wipe/disinfect the wheelchair before returning it to the unit. TOMY confirmed with Weaving Professor Coleman Marsh, who was in agreement with this process, and therefore TOMY informed Tiny that this would be fine. TOMY informed LESLYE Paez, Clinical Coordinator Jonathon Cantu, and Weaving Professor Coleman Marsh of above.
[2019-10-17 19:59] VITALS: BP 101/61
[2019-10-17] MEDS: OMEGA-3 FATTY ACIDS/FISH OIL CAPSULE GT SCH (21:00)
[2019-10-17] MEDS: VALPROIC ACID 250 MG/5 ML LIQUID UDC PO SCH (22:06)
[2019-10-17] MEDS: POLYVINYL ALCOHOL OPHT DROPS 15 ML BOTTLE EACHEYE PRN (22:07)
[2019-10-18] MEDS: ALBUTEROL SULFATE 1.25 MG/3 ML NEBU NEB SCH ×4 (01:01→19:33)
[2019-10-18] MEDS: IPRATROPIUM BROMIDE 0.5 MG/2.5 ML NEBU NEB SCH ×4 (01:01→19:33)
[2019-10-18] MEDS: JEVITY 1.2 1000 ML LIQUID GT PRN ×2 (04:20→21:59)
[2019-10-18] MEDS: PANTOPRAZOLE ORAL SUSPENSION 40 MG SUSPDR.PKT GT SCH (05:04)
[2019-10-18] MEDS: VALPROIC ACID 250 MG/5 ML LIQUID UDC GT SCH ×2 (05:04→13:36)
[2019-10-18 08:00] VITALS: BP 107/65
[2019-10-18] MEDS: HYDROGEN PEROXIDE 3% 118 ML BOTTLE TP SCH ×2 (08:23→21:18)
[2019-10-18] MEDS: NUTRISOURCE FIBER 4 GM PACKET GT SCH (08:30)
[2019-10-18] MEDS: GEMFIBROZIL 600 MG TABLET PO SCH ×2 (08:30→21:48)
[2019-10-18] MEDS: ACIDOPHILUS/BULGARICUS CHEW TAB PO SCH ×2 (08:30→21:48)
[2019-10-18] MEDS: PHENOBARBITAL 32.4 MG TABLET GT SCH ×2 (08:30→21:48)
[2019-10-18] MEDS: BACLOFEN 20 MG TABLET GT SCH ×3 (08:30→21:48)
[2019-10-18] MEDS: Z GUARD REMEDY PASTE TP SCH ×2 (08:31→21:48)
[2019-10-18] MEDS ORDERED: PHENOBARBITAL 32.4 MG TABLET PO ONE ×4 (09:00→21:00)
[2019-10-18 19:50] VITALS: BP 116/70
[2019-10-18] MEDS: OMEGA-3 FATTY ACIDS/FISH OIL CAPSULE GT SCH (21:48)
[2019-10-18] MEDS: VALPROIC ACID 250 MG/5 ML LIQUID UDC PO SCH (21:48)
[2019-10-19] MEDS: IPRATROPIUM BROMIDE 0.5 MG/2.5 ML NEBU NEB SCH ×4 (00:54→19:55)
[2019-10-19] MEDS: ALBUTEROL SULFATE 1.25 MG/3 ML NEBU NEB SCH ×4 (00:54→19:55)
[2019-10-19] MEDS: PANTOPRAZOLE ORAL SUSPENSION 40 MG SUSPDR.PKT GT SCH (05:26)
[2019-10-19] MEDS: VALPROIC ACID 250 MG/5 ML LIQUID UDC GT SCH ×2 (05:26→14:57)
[2019-10-19 08:01] VITALS: BP 104/68
[2019-10-19] MEDS: HYDROGEN PEROXIDE 3% 118 ML BOTTLE TP SCH ×2 (08:10→21:21)
[2019-10-19] MEDS ORDERED: PHENOBARBITAL 32.4 MG TABLET PO ONE ×4 (09:00→21:00)
[2019-10-19] MEDS: PHENOBARBITAL 32.4 MG TABLET GT SCH ×2 (09:15→21:45)
[2019-10-19] MEDS: NUTRISOURCE FIBER 4 GM PACKET GT SCH (09:15)
[2019-10-19] MEDS: ACIDOPHILUS/BULGARICUS CHEW TAB PO SCH ×2 (09:15→21:45)
[2019-10-19] MEDS: BACLOFEN 20 MG TABLET GT SCH ×3 (09:15→21:44)
[2019-10-19] MEDS: GEMFIBROZIL 600 MG TABLET PO SCH ×2 (09:16→21:45)
[2019-10-19] MEDS: Z GUARD REMEDY PASTE TP SCH ×2 (09:16→21:46)
[2019-10-19 20:55] VITALS: BP 105/67
[2019-10-19] MEDS: OMEGA-3 FATTY ACIDS/FISH OIL CAPSULE GT SCH (21:32)
[2019-10-19] MEDS: VALPROIC ACID 250 MG/5 ML LIQUID UDC PO SCH (21:46)
[2019-10-20] MEDS: JEVITY 1.2 1000 ML LIQUID GT PRN ×2 (00:19→18:20)
[2019-10-20] MEDS: ALBUTEROL SULFATE 1.25 MG/3 ML NEBU NEB SCH ×4 (01:03→19:02)
[2019-10-20] MEDS: IPRATROPIUM BROMIDE 0.5 MG/2.5 ML NEBU NEB SCH ×4 (01:03→19:02)
[2019-10-20] MEDS: VALPROIC ACID 250 MG/5 ML LIQUID UDC GT SCH ×2 (05:59→14:19)
[2019-10-20] MEDS: PANTOPRAZOLE ORAL SUSPENSION 40 MG SUSPDR.PKT GT SCH (06:00)
[2019-10-20 08:01] VITALS: BP 98/56
[2019-10-20] MEDS ORDERED: PHENOBARBITAL 32.4 MG TABLET PO ONE ×4 (09:00→21:00)
[2019-10-20] MEDS: HYDROGEN PEROXIDE 3% 118 ML BOTTLE TP SCH ×2 (09:10→21:19)
--- NOTE | 2019-10-20 09:32 | NUR ---
Seem by Savannah Bangura, no new orders given at this time.
[2019-10-20] MEDS: BACLOFEN 20 MG TABLET GT SCH ×3 (09:47→21:18)
[2019-10-20] MEDS: PHENOBARBITAL 32.4 MG TABLET GT SCH ×2 (09:47→21:18)
[2019-10-20] MEDS: NUTRISOURCE FIBER 4 GM PACKET GT SCH (09:47)
[2019-10-20] MEDS: ACIDOPHILUS/BULGARICUS CHEW TAB PO SCH ×2 (09:48→21:18)
[2019-10-20] MEDS: Z GUARD REMEDY PASTE TP SCH ×2 (09:48→21:19)
[2019-10-20] MEDS: GEMFIBROZIL 600 MG TABLET PO SCH ×2 (09:48→21:19)
--- NOTE | 2019-10-20 11:00 | NUR ---
Seen by Sandra BENSON, no new order given at this time.
[2019-10-20 20:20] VITALS: BP 99/60
[2019-10-20] MEDS: VALPROIC ACID 250 MG/5 ML LIQUID UDC PO SCH (21:19)
[2019-10-20] MEDS: OMEGA-3 FATTY ACIDS/FISH OIL CAPSULE GT SCH (21:21)
[2019-10-21] MEDS: IPRATROPIUM BROMIDE 0.5 MG/2.5 ML NEBU NEB SCH ×4 (00:46→19:24)
[2019-10-21] MEDS: ALBUTEROL SULFATE 1.25 MG/3 ML NEBU NEB SCH ×4 (00:46→19:24)
[2019-10-21] MEDS: VALPROIC ACID 250 MG/5 ML LIQUID UDC GT SCH ×2 (05:37→14:00)
[2019-10-21] MEDS: PANTOPRAZOLE ORAL SUSPENSION 40 MG SUSPDR.PKT GT SCH (05:37)
[2019-10-21 08:01] VITALS: BP 90/49
[2019-10-21] MEDS: PHENOBARBITAL 32.4 MG TABLET GT SCH ×2 (08:48→20:22)
[2019-10-21] MEDS: GEMFIBROZIL 600 MG TABLET PO SCH ×2 (08:48→20:22)
[2019-10-21] MEDS: BACLOFEN 20 MG TABLET GT SCH ×3 (08:48→20:22)
[2019-10-21] MEDS: ACIDOPHILUS/BULGARICUS CHEW TAB PO SCH ×2 (08:48→20:22)
[2019-10-21] MEDS: NUTRISOURCE FIBER 4 GM PACKET GT SCH (08:48)
[2019-10-21] MEDS: Z GUARD REMEDY PASTE TP SCH ×2 (08:48→20:22)
[2019-10-21] MEDS ORDERED: PHENOBARBITAL 32.4 MG TABLET PO ONE ×4 (09:00→21:00)
[2019-10-21] MEDS: HYDROGEN PEROXIDE 3% 118 ML BOTTLE TP SCH ×2 (09:45→21:36)
[2019-10-21] MEDS: JEVITY 1.2 1000 ML LIQUID GT PRN (12:54)
--- NOTE | 2019-10-21 15:49 | NUR ---
Drew from [employer] delivered patient's wheelchair leg rests and arms rests today. PT Jeannine informed and she met with Drew to learn about how to utilize the new parts. Drew [phone].
--- NOTE | 2019-10-21 16:56 | NUR ---
new orders noted for wheelchair positioning evaluation,evaluation done By Jeannine Lindquist with new orders noted and carried out.
[2019-10-21 20:02] VITALS: BP 103/66
[2019-10-21] MEDS: OMEGA-3 FATTY ACIDS/FISH OIL CAPSULE GT SCH (20:22)
[2019-10-21] MEDS: VALPROIC ACID 250 MG/5 ML LIQUID UDC PO SCH (22:20)
[2019-10-22] MEDS: IPRATROPIUM BROMIDE 0.5 MG/2.5 ML NEBU NEB SCH ×4 (00:48→19:22)
[2019-10-22] MEDS: ALBUTEROL SULFATE 1.25 MG/3 ML NEBU NEB SCH ×4 (00:48→19:22)
[2019-10-22] MEDS: JEVITY 1.2 1000 ML LIQUID GT PRN (03:28)
[2019-10-22] MEDS: PANTOPRAZOLE ORAL SUSPENSION 40 MG SUSPDR.PKT GT SCH (06:13)
[2019-10-22] MEDS: VALPROIC ACID 250 MG/5 ML LIQUID UDC GT SCH ×2 (06:13→13:51)
[2019-10-22] MEDS: BACLOFEN 20 MG TABLET GT SCH ×3 (08:57→20:10)
[2019-10-22] MEDS: NUTRISOURCE FIBER 4 GM PACKET GT SCH (08:57)
[2019-10-22] MEDS: Z GUARD REMEDY PASTE TP SCH ×2 (08:58→20:15)
[2019-10-22] MEDS: ACIDOPHILUS/BULGARICUS CHEW TAB PO SCH ×2 (08:58→20:11)
[2019-10-22] MEDS: PHENOBARBITAL 32.4 MG TABLET GT SCH ×2 (08:58→20:11)
[2019-10-22] MEDS: GEMFIBROZIL 600 MG TABLET PO SCH ×2 (08:58→20:12)
[2019-10-22] MEDS ORDERED: PHENOBARBITAL 32.4 MG TABLET PO ONE ×4 (09:00→21:00)
[2019-10-22] MEDS: HYDROGEN PEROXIDE 3% 118 ML BOTTLE TP SCH ×2 (09:02→20:52)
[2019-10-22 10:53] VITALS: BP 94/61
[2019-10-22] MEDS: OMEGA-3 FATTY ACIDS/FISH OIL CAPSULE GT SCH (20:05)
[2019-10-22 21:31] VITALS: BP 119/74
[2019-10-22] MEDS: VALPROIC ACID 250 MG/5 ML LIQUID UDC PO SCH (22:00)
[2019-10-23] MEDS: ALBUTEROL SULFATE 1.25 MG/3 ML NEBU NEB SCH ×4 (00:59→19:27)
[2019-10-23] MEDS: IPRATROPIUM BROMIDE 0.5 MG/2.5 ML NEBU NEB SCH ×4 (00:59→19:27)
[2019-10-23] MEDS: JEVITY 1.2 1000 ML LIQUID GT PRN (01:58)
[2019-10-23] MEDS: VALPROIC ACID 250 MG/5 ML LIQUID UDC GT SCH ×2 (06:23→13:56)
[2019-10-23] MEDS: PANTOPRAZOLE ORAL SUSPENSION 40 MG SUSPDR.PKT GT SCH (06:23)
[2019-10-23 07:39] VITALS: BP 105/65
[2019-10-23] MEDS: HYDROGEN PEROXIDE 3% 118 ML BOTTLE TP SCH ×2 (09:00→21:11)
[2019-10-23] MEDS: BACLOFEN 20 MG TABLET GT SCH ×3 (09:00→20:10)
[2019-10-23] MEDS: GEMFIBROZIL 600 MG TABLET PO SCH ×2 (09:00→20:14)
[2019-10-23] MEDS: ACIDOPHILUS/BULGARICUS CHEW TAB PO SCH ×2 (09:00→20:14)
[2019-10-23] MEDS: NUTRISOURCE FIBER 4 GM PACKET GT SCH (09:00)
[2019-10-23] MEDS: Z GUARD REMEDY PASTE TP SCH ×2 (09:00→20:14)
[2019-10-23] MEDS: PHENOBARBITAL 32.4 MG TABLET GT SCH ×2 (09:00→20:14)
[2019-10-23] MEDS ORDERED: PHENOBARBITAL 32.4 MG TABLET PO ONE ×4 (09:00→21:00)
--- NOTE | 2019-10-23 18:00 | NUR ---
SEEN BY SLY TILLEY AND WITH CAROLINO.
[2019-10-23 20:05] VITALS: BP 113/69
[2019-10-23] MEDS: OMEGA-3 FATTY ACIDS/FISH OIL CAPSULE GT SCH (20:09)
[2019-10-23] MEDS: VALPROIC ACID 250 MG/5 ML LIQUID UDC PO SCH (22:33)
[2019-10-24] MEDS: JEVITY 1.2 1000 ML LIQUID GT PRN ×2 (00:18→18:00)
[2019-10-24] MEDS: IPRATROPIUM BROMIDE 0.5 MG/2.5 ML NEBU NEB SCH ×4 (00:59→19:40)
[2019-10-24] MEDS: ALBUTEROL SULFATE 1.25 MG/3 ML NEBU NEB SCH ×4 (00:59→19:40)
[2019-10-24] MEDS: PANTOPRAZOLE ORAL SUSPENSION 40 MG SUSPDR.PKT GT SCH (06:03)
[2019-10-24] MEDS: VALPROIC ACID 250 MG/5 ML LIQUID UDC GT SCH ×2 (06:03→13:19)
[2019-10-24 08:00] VITALS: BP 110/66
[2019-10-24] MEDS: ACIDOPHILUS/BULGARICUS CHEW TAB PO SCH ×2 (08:01→20:48)
[2019-10-24] MEDS: Z GUARD REMEDY PASTE TP SCH ×2 (08:04→20:48)
[2019-10-24] MEDS: GEMFIBROZIL 600 MG TABLET PO SCH ×2 (08:05→20:48)
[2019-10-24] MEDS: BACLOFEN 20 MG TABLET GT SCH ×3 (08:05→20:48)
[2019-10-24] MEDS: NUTRISOURCE FIBER 4 GM PACKET GT SCH (08:06)
[2019-10-24] MEDS: PHENOBARBITAL 32.4 MG TABLET GT SCH ×2 (08:15→20:48)
[2019-10-24] MEDS ORDERED: PHENOBARBITAL 32.4 MG TABLET PO ONE ×4 (09:00→21:00)
[2019-10-24] MEDS: HYDROGEN PEROXIDE 3% 118 ML BOTTLE TP SCH ×2 (09:58→20:45)
[2019-10-24 11:22] VITALS: BP 110/66
--- NOTE | 2019-10-24 15:00 | NUR ---
SEEN BY DR. PLAZA AND WITH NNO.
--- NOTE | 2019-10-24 15:50 | NUR ---
DR. PUTNAM(UROLOGIST) AWARE OF DR. ALMAGUER'S ORDER TO F/U IF HE STILL NEEDS THE SHEEHAN CATHETER. HE STATED THAT YES HE NEEDS IT DUE TO THE URETHRAL STRICTURE BUT THAT HE IS GONNA COME TODAY TO CHANGE THE CATHETER.
--- NOTE | 2019-10-24 16:30 | NUR ---
PT. WAS SEEN BY DR. JERSEY SHUKLA(UROLOGIST) AND HE CHANGED F/C FR#16X10 AND PROCEDURE WELL TOLERATED ,NO LOCAL BLEEDING AND DRAINING CLEAR YELLOW URINE.
[2019-10-24 20:00] VITALS: BP 111/66
[2019-10-24] MEDS: OMEGA-3 FATTY ACIDS/FISH OIL CAPSULE GT SCH (20:48)
[2019-10-24] MEDS: VALPROIC ACID 250 MG/5 ML LIQUID UDC PO SCH (21:30)
--- NOTE | 2019-10-24 22:11 | NUR ---
Afebrile, no signs of any distress noted, maguire catheter is intact and no signs bleeding noted, draining with yellow urine, good jannet care rendered, kept clean and comfortable.
[2019-10-25] MEDS: ALBUTEROL SULFATE 1.25 MG/3 ML NEBU NEB SCH ×4 (01:18→19:00)
[2019-10-25] MEDS: IPRATROPIUM BROMIDE 0.5 MG/2.5 ML NEBU NEB SCH ×4 (01:18→19:00)
[2019-10-25] MEDS: PANTOPRAZOLE ORAL SUSPENSION 40 MG SUSPDR.PKT GT SCH (05:41)
[2019-10-25] MEDS: VALPROIC ACID 250 MG/5 ML LIQUID UDC GT SCH ×2 (05:42→13:18)
[2019-10-25] MEDS: NUTRISOURCE FIBER 4 GM PACKET GT SCH (08:41)
[2019-10-25] MEDS: BACLOFEN 20 MG TABLET GT SCH ×3 (08:41→20:51)
[2019-10-25] MEDS: GEMFIBROZIL 600 MG TABLET PO SCH ×2 (08:42→20:51)
[2019-10-25] MEDS: PHENOBARBITAL 32.4 MG TABLET GT SCH ×2 (08:42→20:51)
[2019-10-25] MEDS: Z GUARD REMEDY PASTE TP SCH ×2 (08:42→20:51)
[2019-10-25] MEDS: ACIDOPHILUS/BULGARICUS CHEW TAB PO SCH ×2 (08:42→20:51)
[2019-10-25] MEDS: HYDROGEN PEROXIDE 3% 118 ML BOTTLE TP SCH ×2 (08:46→21:51)
[2019-10-25] MEDS ORDERED: PHENOBARBITAL 32.4 MG TABLET PO ONE ×4 (09:00→21:00)
[2019-10-25 12:02] VITALS: BP 101/68
[2019-10-25] MEDS: JEVITY 1.2 1000 ML LIQUID GT PRN (13:20)
[2019-10-25 13:59] VITALS: BP 132/68
[2019-10-25 20:00] VITALS: BP 105/67
[2019-10-25] MEDS: OMEGA-3 FATTY ACIDS/FISH OIL CAPSULE GT SCH (20:51)
[2019-10-25] MEDS: VALPROIC ACID 250 MG/5 ML LIQUID UDC PO SCH (21:22)
[2019-10-26] MEDS: ALBUTEROL SULFATE 1.25 MG/3 ML NEBU NEB SCH ×4 (01:05→19:37)
[2019-10-26] MEDS: IPRATROPIUM BROMIDE 0.5 MG/2.5 ML NEBU NEB SCH ×4 (01:05→19:37)
[2019-10-26] MEDS: VALPROIC ACID 250 MG/5 ML LIQUID UDC GT SCH ×2 (05:25→13:28)
[2019-10-26] MEDS: PANTOPRAZOLE ORAL SUSPENSION 40 MG SUSPDR.PKT GT SCH (05:25)
[2019-10-26] MEDS: BACLOFEN 20 MG TABLET GT SCH ×3 (08:04→21:03)
[2019-10-26 08:05] VITALS: BP 103/66
[2019-10-26] MEDS: GEMFIBROZIL 600 MG TABLET PO SCH ×2 (08:05→21:03)
[2019-10-26] MEDS: Z GUARD REMEDY PASTE TP SCH ×2 (08:05→21:03)
[2019-10-26] MEDS: NUTRISOURCE FIBER 4 GM PACKET GT SCH (08:05)
[2019-10-26] MEDS: PHENOBARBITAL 32.4 MG TABLET GT SCH ×2 (08:05→21:03)
[2019-10-26] MEDS: ACIDOPHILUS/BULGARICUS CHEW TAB PO SCH ×2 (08:05→21:03)
[2019-10-26] MEDS: POLYVINYL ALCOHOL OPHT DROPS 15 ML BOTTLE EACHEYE PRN (08:06)
[2019-10-26] MEDS: HYDROGEN PEROXIDE 3% 118 ML BOTTLE TP SCH ×2 (08:40→21:24)
[2019-10-26] MEDS ORDERED: PHENOBARBITAL 32.4 MG TABLET PO ONE ×4 (09:00→21:00)
[2019-10-26] MEDS: JEVITY 1.2 1000 ML LIQUID GT PRN ×2 (09:37→21:35)
[2019-10-26 20:13] VITALS: BP 94/73
[2019-10-26] MEDS: VALPROIC ACID 250 MG/5 ML LIQUID UDC PO SCH (21:03)
[2019-10-26] MEDS: OMEGA-3 FATTY ACIDS/FISH OIL CAPSULE GT SCH (21:03)
[2019-10-27] MEDS: IPRATROPIUM BROMIDE 0.5 MG/2.5 ML NEBU NEB SCH ×4 (01:02→19:49)
[2019-10-27] MEDS: ALBUTEROL SULFATE 1.25 MG/3 ML NEBU NEB SCH ×4 (01:02→19:49)
[2019-10-27] MEDS: VALPROIC ACID 250 MG/5 ML LIQUID UDC GT SCH ×2 (05:54→14:33)
[2019-10-27] MEDS: PANTOPRAZOLE ORAL SUSPENSION 40 MG SUSPDR.PKT GT SCH (05:54)
[2019-10-27 07:54] VITALS: BP 105/68
[2019-10-27] MEDS: GEMFIBROZIL 600 MG TABLET PO SCH ×2 (08:28→21:49)
[2019-10-27] MEDS: BACLOFEN 20 MG TABLET GT SCH ×3 (08:28→21:49)
[2019-10-27] MEDS: PHENOBARBITAL 32.4 MG TABLET GT SCH ×2 (08:28→21:49)
[2019-10-27] MEDS: NUTRISOURCE FIBER 4 GM PACKET GT SCH (08:29)
[2019-10-27] MEDS: ACIDOPHILUS/BULGARICUS CHEW TAB PO SCH ×2 (08:29→21:49)
[2019-10-27] MEDS: Z GUARD REMEDY PASTE TP SCH ×2 (08:29→21:49)
--- NOTE | 2019-10-27 08:45 | NUR ---
NEW ORDER CARRIED OUT FROM DR. PLAZA FOR KETOCONAZOLE RENEWED ORDER.
[2019-10-27] MEDS: HYDROGEN PEROXIDE 3% 118 ML BOTTLE TP SCH ×2 (09:00→21:28)
[2019-10-27] MEDS ORDERED: PHENOBARBITAL 32.4 MG TABLET PO ONE ×4 (09:00→21:00)
[2019-10-27] MEDS: KETOCONAZOLE 2% CREAM 30 GM TUBE TP SCH ×2 (09:22→16:20)
--- NOTE | 2019-10-27 11:58 | NUR ---
SEEN BY DR. PLAZA AND WITH NNO.
[2019-10-27 20:07] VITALS: BP 98/68
[2019-10-27] MEDS: VALPROIC ACID 250 MG/5 ML LIQUID UDC PO SCH (21:49)
[2019-10-27] MEDS: OMEGA-3 FATTY ACIDS/FISH OIL CAPSULE GT SCH (21:49)
[2019-10-28] MEDS: ALBUTEROL SULFATE 1.25 MG/3 ML NEBU NEB SCH ×4 (01:23→19:26)
[2019-10-28] MEDS: IPRATROPIUM BROMIDE 0.5 MG/2.5 ML NEBU NEB SCH ×4 (01:23→19:26)
[2019-10-28] MEDS: VALPROIC ACID 250 MG/5 ML LIQUID UDC GT SCH ×2 (05:19→13:15)
[2019-10-28] MEDS: PANTOPRAZOLE ORAL SUSPENSION 40 MG SUSPDR.PKT GT SCH (05:19)
[2019-10-28 07:30] VITALS: BP 99/59
[2019-10-28] MEDS: BACLOFEN 20 MG TABLET GT SCH ×3 (08:34→21:00)
[2019-10-28] MEDS: NUTRISOURCE FIBER 4 GM PACKET GT SCH (08:34)
[2019-10-28] MEDS: PHENOBARBITAL 32.4 MG TABLET GT SCH ×2 (08:35→21:00)
[2019-10-28] MEDS: ACIDOPHILUS/BULGARICUS CHEW TAB PO SCH ×2 (08:35→21:00)
[2019-10-28] MEDS: GEMFIBROZIL 600 MG TABLET PO SCH ×2 (08:35→21:00)
[2019-10-28] MEDS: KETOCONAZOLE 2% CREAM 30 GM TUBE TP SCH ×2 (08:36→17:00)
[2019-10-28] MEDS: Z GUARD REMEDY PASTE TP SCH ×2 (08:36→21:00)
[2019-10-28] MEDS ORDERED: PHENOBARBITAL 32.4 MG TABLET PO ONE ×4 (09:00→21:00)
[2019-10-28] MEDS: HYDROGEN PEROXIDE 3% 118 ML BOTTLE TP SCH ×2 (09:56→21:00)
--- NOTE | 2019-10-28 14:22 | NUR ---
INTERDISCIPLINARY PLAN OF CARE CONFERENCE was held today. Patient's mother was not available to participate in the meeting today. Dr. Bowser and the Interdisciplinary Team reviewed the current plan of care in detail. RN reported on patient's medical condition and skin treatment. RN also reported on the pending urology consultation for the patient. No major changes in condition were reported. See RN IDT conference notes. See all disciplines IDT notes and physician's progress notes for additional details.
--- NOTE | 2019-10-28 14:29 | NUR ---
Pharmacy Update from Today's 10/14/19 IDT Meeting: Note: Patient was transferred to CCU 08/31-09/11 d/t fever, sepsis, hypotension requiring pressors and was found with aspiration PNA and UTI. Pt was stabilized, treated with appropriate antibiotics and readmitted to SA to finish abx courses. VS: Temp 98.1 BP 99/59 HR 81 LABS: (from 10/14/19) Wbc 5.9H/H 13/38.9Plt 223 Na 138K 4.4Cl 102CO2 33BUN/SCr 11/0.3 BS 119Ca 9.3 MEDICATION USE REVIEWED: > Pt not on any anti-psych medications > Pt on Phenobarbital 64.8mg q12hr. Last level on 09/15/19 was 34.2 (15-39) > Pt on Valproic acid 1000mg qhs and 500mg qam and 1400. Last level on 09/15/19 was 65 (50-100). Within range, no reported seizure activity noted > Pt now on midodrine 20mg q8hr PRN sbp <90. None used so far. Last BP wnl > Previously on lovenox, d/c'd in CCU d/t low plt concerns. Remains off DVT prophylaxis per MD PRN MED USAGE: (September) Tylenol for pain/temp used x0 [place] 5/325 PRN used x0 Artificial tears PRN used x1 NEW/OTHER ORDERS NOTED: > Ketoconazole 2% cream to face for folliculitis renewed 10/26-11/04 Pt was reviewed and discussed in detail with no medication issues noted per team. Continues with dermatology consults and orders for folliculitis treatment. Pt with chronic folliculitis and flares on and off but otherwise stable. Will continue to follow Addendum: 11/04/19 at 0829 by MARTINEZ VAUGHN ADM CORRECTION: DATE OF IDT WAS 10/27 NOT 10/13
[2019-10-28 19:56] VITALS: BP 112/70
[2019-10-28] MEDS: OMEGA-3 FATTY ACIDS/FISH OIL CAPSULE GT SCH (21:00)
[2019-10-28] MEDS: VALPROIC ACID 250 MG/5 ML LIQUID UDC PO SCH (22:04)
[2019-10-29] MEDS: ALBUTEROL SULFATE 1.25 MG/3 ML NEBU NEB SCH ×4 (00:59→19:27)
[2019-10-29] MEDS: IPRATROPIUM BROMIDE 0.5 MG/2.5 ML NEBU NEB SCH ×4 (00:59→19:27)
[2019-10-29] MEDS: JEVITY 1.2 1000 ML LIQUID GT PRN (03:00)
[2019-10-29] MEDS: VALPROIC ACID 250 MG/5 ML LIQUID UDC GT SCH ×2 (05:02→14:11)
[2019-10-29] MEDS: PANTOPRAZOLE ORAL SUSPENSION 40 MG SUSPDR.PKT GT SCH (05:02)
[2019-10-29] MEDS: HYDROGEN PEROXIDE 3% 118 ML BOTTLE TP SCH ×2 (07:35→21:38)
[2019-10-29 07:49] VITALS: BP 120/73
[2019-10-29] MEDS: Z GUARD REMEDY PASTE TP SCH ×2 (09:00→21:55)
[2019-10-29] MEDS ORDERED: PHENOBARBITAL 32.4 MG TABLET PO ONE ×4 (09:00→21:00)
[2019-10-29] MEDS: NUTRISOURCE FIBER 4 GM PACKET GT SCH (09:15)
[2019-10-29] MEDS: BACLOFEN 20 MG TABLET GT SCH ×3 (09:15→21:54)
[2019-10-29] MEDS: GEMFIBROZIL 600 MG TABLET PO SCH ×2 (09:16→21:55)
[2019-10-29] MEDS: PHENOBARBITAL 32.4 MG TABLET GT SCH ×2 (09:16→21:54)
[2019-10-29] MEDS: ACIDOPHILUS/BULGARICUS CHEW TAB PO SCH ×2 (09:16→21:54)
[2019-10-29] MEDS: KETOCONAZOLE 2% CREAM 30 GM TUBE TP SCH ×2 (09:16→17:35)
[2019-10-29 20:00] VITALS: BP 109/66
[2019-10-29] MEDS: OMEGA-3 FATTY ACIDS/FISH OIL CAPSULE GT SCH (21:54)
[2019-10-29] MEDS: VALPROIC ACID 250 MG/5 ML LIQUID UDC PO SCH (21:55)
[2019-10-30] MEDS: ALBUTEROL SULFATE 1.25 MG/3 ML NEBU NEB SCH ×4 (00:44→19:07)
[2019-10-30] MEDS: IPRATROPIUM BROMIDE 0.5 MG/2.5 ML NEBU NEB SCH ×4 (00:44→19:07)
[2019-10-30] MEDS: VALPROIC ACID 250 MG/5 ML LIQUID UDC GT SCH ×2 (06:27→14:21)
[2019-10-30] MEDS: PANTOPRAZOLE ORAL SUSPENSION 40 MG SUSPDR.PKT GT SCH (06:27)
[2019-10-30 07:48] VITALS: BP 107/57
[2019-10-30] MEDS: BACLOFEN 20 MG TABLET GT SCH ×3 (08:57→21:00)
[2019-10-30] MEDS: NUTRISOURCE FIBER 4 GM PACKET GT SCH (08:57)
[2019-10-30] MEDS: ACIDOPHILUS/BULGARICUS CHEW TAB PO SCH ×2 (08:58→21:00)
[2019-10-30] MEDS: PHENOBARBITAL 32.4 MG TABLET GT SCH ×2 (08:58→21:00)
[2019-10-30] MEDS: GEMFIBROZIL 600 MG TABLET PO SCH ×2 (08:58→21:00)
[2019-10-30] MEDS ORDERED: PHENOBARBITAL 32.4 MG TABLET PO ONE ×4 (09:00→21:00)
[2019-10-30] MEDS: KETOCONAZOLE 2% CREAM 30 GM TUBE TP SCH ×2 (09:00→17:40)
[2019-10-30] MEDS: Z GUARD REMEDY PASTE TP SCH ×2 (09:00→21:00)
[2019-10-30] MEDS: HYDROGEN PEROXIDE 3% 118 ML BOTTLE TP SCH ×2 (09:40→21:02)
[2019-10-30] MEDS: JEVITY 1.2 1000 ML LIQUID GT PRN (14:39)
[2019-10-30 20:16] VITALS: BP 118/80
[2019-10-30] MEDS: OMEGA-3 FATTY ACIDS/FISH OIL CAPSULE GT SCH (21:00)
[2019-10-30] MEDS: VALPROIC ACID 250 MG/5 ML LIQUID UDC PO SCH (22:11)
[2019-10-31] MEDS: ALBUTEROL SULFATE 1.25 MG/3 ML NEBU NEB SCH ×4 (00:48→19:30)
[2019-10-31] MEDS: IPRATROPIUM BROMIDE 0.5 MG/2.5 ML NEBU NEB SCH ×4 (00:48→19:30)
[2019-10-31] MEDS: VALPROIC ACID 250 MG/5 ML LIQUID UDC GT SCH ×2 (05:14→13:30)
[2019-10-31] MEDS: PANTOPRAZOLE ORAL SUSPENSION 40 MG SUSPDR.PKT GT SCH (05:14)
[2019-10-31 07:41] VITALS: BP 129/86
[2019-10-31] MEDS: HYDROGEN PEROXIDE 3% 118 ML BOTTLE TP SCH ×2 (08:14→21:14)
[2019-10-31] MEDS ORDERED: PHENOBARBITAL 32.4 MG TABLET PO ONE ×4 (09:00→21:00)
[2019-10-31] MEDS: BACLOFEN 20 MG TABLET GT SCH ×3 (09:09→21:00)
[2019-10-31] MEDS: NUTRISOURCE FIBER 4 GM PACKET GT SCH (09:09)
[2019-10-31] MEDS: ACIDOPHILUS/BULGARICUS CHEW TAB PO SCH ×2 (09:10→21:00)
[2019-10-31] MEDS: Z GUARD REMEDY PASTE TP SCH ×2 (09:10→21:00)
[2019-10-31] MEDS: KETOCONAZOLE 2% CREAM 30 GM TUBE TP SCH ×2 (09:10→17:49)
[2019-10-31] MEDS: PHENOBARBITAL 32.4 MG TABLET GT SCH ×2 (09:10→21:00)
[2019-10-31] MEDS: GEMFIBROZIL 600 MG TABLET PO SCH ×2 (09:10→21:00)
[2019-10-31 20:17] VITALS: BP 98/58
[2019-10-31] MEDS: OMEGA-3 FATTY ACIDS/FISH OIL CAPSULE GT SCH (21:00)
[2019-10-31] MEDS: VALPROIC ACID 250 MG/5 ML LIQUID UDC PO SCH (22:32)
[2019-11-01] MEDS: IPRATROPIUM BROMIDE 0.5 MG/2.5 ML NEBU NEB SCH ×4 (00:57→19:52)
[2019-11-01] MEDS: ALBUTEROL SULFATE 1.25 MG/3 ML NEBU NEB SCH ×4 (00:57→19:52)
[2019-11-01] MEDS: JEVITY 1.2 1000 ML LIQUID GT PRN ×2 (02:50→17:28)
[2019-11-01] MEDS: VALPROIC ACID 250 MG/5 ML LIQUID UDC GT SCH ×2 (05:58→14:00)
[2019-11-01] MEDS: PANTOPRAZOLE ORAL SUSPENSION 40 MG SUSPDR.PKT GT SCH (05:58)
[2019-11-01 07:54] VITALS: BP 101/64
[2019-11-01] MEDS: HYDROGEN PEROXIDE 3% 118 ML BOTTLE TP SCH ×2 (08:46→21:20)
[2019-11-01] MEDS ORDERED: PHENOBARBITAL 32.4 MG TABLET PO ONE ×4 (09:00→21:00)
[2019-11-01] MEDS: NUTRISOURCE FIBER 4 GM PACKET GT SCH (09:19)
[2019-11-01] MEDS: BACLOFEN 20 MG TABLET GT SCH ×3 (09:19→20:48)
[2019-11-01] MEDS: PHENOBARBITAL 32.4 MG TABLET GT SCH ×2 (09:19→20:46)
[2019-11-01] MEDS: GEMFIBROZIL 600 MG TABLET PO SCH ×2 (09:20→20:49)
[2019-11-01] MEDS: Z GUARD REMEDY PASTE TP SCH ×2 (09:20→20:49)
[2019-11-01] MEDS: KETOCONAZOLE 2% CREAM 30 GM TUBE TP SCH ×2 (09:20→17:27)
[2019-11-01] MEDS: ACIDOPHILUS/BULGARICUS CHEW TAB PO SCH ×2 (09:20→20:48)
[2019-11-01 20:13] VITALS: BP 128/67
[2019-11-01] MEDS: OMEGA-3 FATTY ACIDS/FISH OIL CAPSULE GT SCH (20:48)
[2019-11-01] MEDS: VALPROIC ACID 250 MG/5 ML LIQUID UDC PO SCH (21:07)
[2019-11-02] MEDS: ALBUTEROL SULFATE 1.25 MG/3 ML NEBU NEB SCH ×4 (01:13→19:31)
[2019-11-02] MEDS: IPRATROPIUM BROMIDE 0.5 MG/2.5 ML NEBU NEB SCH ×4 (01:13→19:31)
[2019-11-02] MEDS: PANTOPRAZOLE ORAL SUSPENSION 40 MG SUSPDR.PKT GT SCH (05:23)
[2019-11-02] MEDS: VALPROIC ACID 250 MG/5 ML LIQUID UDC GT SCH ×2 (05:23→13:45)
[2019-11-02] MEDS: HYDROGEN PEROXIDE 3% 118 ML BOTTLE TP SCH ×2 (07:45→21:41)
[2019-11-02 07:50] VITALS: BP 105/65
[2019-11-02] MEDS: BACLOFEN 20 MG TABLET GT SCH ×3 (08:44→21:03)
[2019-11-02] MEDS: PHENOBARBITAL 32.4 MG TABLET GT SCH ×2 (08:45→21:03)
[2019-11-02] MEDS: Z GUARD REMEDY PASTE TP SCH ×2 (08:45→21:03)
[2019-11-02] MEDS: KETOCONAZOLE 2% CREAM 30 GM TUBE TP SCH ×2 (08:45→17:42)
[2019-11-02] MEDS: NUTRISOURCE FIBER 4 GM PACKET GT SCH (08:45)
[2019-11-02] MEDS: ACIDOPHILUS/BULGARICUS CHEW TAB PO SCH ×2 (08:45→21:03)
[2019-11-02] MEDS: GEMFIBROZIL 600 MG TABLET PO SCH ×2 (08:45→21:03)
[2019-11-02] MEDS: JEVITY 1.2 1000 ML LIQUID GT PRN (12:50)
[2019-11-02 20:17] VITALS: BP 90/60
[2019-11-02] MEDS: OMEGA-3 FATTY ACIDS/FISH OIL CAPSULE GT SCH (21:02)
[2019-11-02] MEDS: VALPROIC ACID 250 MG/5 ML LIQUID UDC PO SCH (21:20)
[2019-11-03] MEDS: ALBUTEROL SULFATE 1.25 MG/3 ML NEBU NEB SCH ×4 (01:32→18:56)
[2019-11-03] MEDS: IPRATROPIUM BROMIDE 0.5 MG/2.5 ML NEBU NEB SCH ×4 (01:32→18:56)
[2019-11-03] MEDS: VALPROIC ACID 250 MG/5 ML LIQUID UDC GT SCH ×2 (05:35→14:07)
[2019-11-03] MEDS: PANTOPRAZOLE ORAL SUSPENSION 40 MG SUSPDR.PKT GT SCH (05:35)
[2019-11-03 07:33] VITALS: BP 93/62
[2019-11-03] MEDS: BACLOFEN 20 MG TABLET GT SCH ×3 (08:57→20:06)
[2019-11-03] MEDS: ACIDOPHILUS/BULGARICUS CHEW TAB PO SCH ×2 (08:57→20:08)
[2019-11-03] MEDS: NUTRISOURCE FIBER 4 GM PACKET GT SCH (08:57)
[2019-11-03] MEDS: Z GUARD REMEDY PASTE TP SCH ×2 (08:58→20:08)
[2019-11-03] MEDS: GEMFIBROZIL 600 MG TABLET PO SCH ×2 (08:58→20:08)
[2019-11-03] MEDS: KETOCONAZOLE 2% CREAM 30 GM TUBE TP SCH ×2 (08:58→17:04)
[2019-11-03] MEDS: PHENOBARBITAL 32.4 MG TABLET GT SCH ×2 (09:00→20:08)
[2019-11-03] MEDS: HYDROGEN PEROXIDE 3% 118 ML BOTTLE TP SCH ×2 (09:11→21:27)
--- NOTE | 2019-11-03 09:30 | NUR ---
Seen by Savannah Bangura with no new order.
--- NOTE | 2019-11-03 11:30 | NUR ---
Seen by Sandra LEÓN with no new order.
[2019-11-03] MEDS: JEVITY 1.2 1000 ML LIQUID GT PRN (11:58)
[2019-11-03 19:59] VITALS: BP 104/62
[2019-11-03] MEDS: OMEGA-3 FATTY ACIDS/FISH OIL CAPSULE GT SCH (20:06)
[2019-11-03] MEDS: VALPROIC ACID 250 MG/5 ML LIQUID UDC PO SCH (21:53)
[2019-11-04] MEDS: ALBUTEROL SULFATE 1.25 MG/3 ML NEBU NEB SCH ×4 (01:47→19:13)
[2019-11-04] MEDS: IPRATROPIUM BROMIDE 0.5 MG/2.5 ML NEBU NEB SCH ×4 (01:47→19:13)
[2019-11-04] MEDS: PANTOPRAZOLE ORAL SUSPENSION 40 MG SUSPDR.PKT GT SCH (05:02)
[2019-11-04] MEDS: VALPROIC ACID 250 MG/5 ML LIQUID UDC GT SCH ×2 (05:02→14:00)
[2019-11-04] MEDS: JEVITY 1.2 1000 ML LIQUID GT PRN (06:54)
[2019-11-04 07:29] VITALS: BP 112/69
[2019-11-04] MEDS: NUTRISOURCE FIBER 4 GM PACKET GT SCH (08:31)
[2019-11-04] MEDS: BACLOFEN 20 MG TABLET GT SCH ×3 (08:31→20:07)
[2019-11-04] MEDS: KETOCONAZOLE 2% CREAM 30 GM TUBE TP SCH ×2 (08:32→17:08)
[2019-11-04] MEDS: PHENOBARBITAL 32.4 MG TABLET GT SCH ×2 (08:32→20:08)
[2019-11-04] MEDS: ACIDOPHILUS/BULGARICUS CHEW TAB PO SCH ×2 (08:32→20:08)
[2019-11-04] MEDS: Z GUARD REMEDY PASTE TP SCH ×2 (08:32→20:09)
[2019-11-04] MEDS: GEMFIBROZIL 600 MG TABLET PO SCH ×2 (08:32→20:09)
[2019-11-04] MEDS: HYDROGEN PEROXIDE 3% 118 ML BOTTLE TP SCH ×2 (09:27→20:54)
--- NOTE | 2019-11-04 11:08 | NUR ---
new orders from Sandra Pineda,to Joe Schmid and joe dukes,carried out .
[2019-11-04 20:00] VITALS: BP 99/62
[2019-11-04] MEDS: OMEGA-3 FATTY ACIDS/FISH OIL CAPSULE GT SCH (20:07)
[2019-11-04] MEDS ORDERED: PHENOBARBITAL 32.4 MG TABLET PO ONE ×2 (21:00)
[2019-11-04] MEDS: VALPROIC ACID 250 MG/5 ML LIQUID UDC PO SCH (22:11)
[2019-11-05] MEDS: JEVITY 1.2 1000 ML LIQUID GT PRN ×2 (00:29→17:40)
[2019-11-05] MEDS: IPRATROPIUM BROMIDE 0.5 MG/2.5 ML NEBU NEB SCH ×4 (00:44→19:18)
[2019-11-05] MEDS: ALBUTEROL SULFATE 1.25 MG/3 ML NEBU NEB SCH ×4 (00:44→19:18)
[2019-11-05] MEDS: PANTOPRAZOLE ORAL SUSPENSION 40 MG SUSPDR.PKT GT SCH (06:02)
[2019-11-05] MEDS: VALPROIC ACID 250 MG/5 ML LIQUID UDC GT SCH ×2 (06:02→14:31)
[2019-11-05 07:45] VITALS: BP 92/57
[2019-11-05] MEDS: HYDROGEN PEROXIDE 3% 118 ML BOTTLE TP SCH ×2 (08:05→20:36)
[2019-11-05] MEDS: BACLOFEN 20 MG TABLET GT SCH ×3 (08:51→21:00)
[2019-11-05] MEDS: NUTRISOURCE FIBER 4 GM PACKET GT SCH (08:51)
[2019-11-05] MEDS: KETOCONAZOLE 2% CREAM 30 GM TUBE TP SCH ×2 (08:52→17:16)
[2019-11-05] MEDS: GEMFIBROZIL 600 MG TABLET PO SCH ×2 (08:52→21:00)
[2019-11-05] MEDS: Z GUARD REMEDY PASTE TP SCH ×2 (08:52→21:00)
[2019-11-05] MEDS: ACIDOPHILUS/BULGARICUS CHEW TAB PO SCH ×2 (08:52→21:00)
[2019-11-05] MEDS ORDERED: PHENOBARBITAL 32.4 MG TABLET PO ONE ×4 (09:00→21:00)
[2019-11-05] MEDS: PHENOBARBITAL 32.4 MG TABLET GT SCH ×2 (09:00→21:00)
--- NOTE | 2019-11-05 13:45 | NUR ---
1:20pm: TOMY called patient's mother Sade [phone] to check in. Sade was not available, and TOMY left Sade a voicemail message asking her to call TOMY back.
[2019-11-05 19:54] VITALS: BP 93/63
[2019-11-05] MEDS: OMEGA-3 FATTY ACIDS/FISH OIL CAPSULE GT SCH (21:00)
[2019-11-05] MEDS: VALPROIC ACID 250 MG/5 ML LIQUID UDC PO SCH (22:14)
[2019-11-06] MEDS: IPRATROPIUM BROMIDE 0.5 MG/2.5 ML NEBU NEB SCH ×4 (00:40→19:06)
[2019-11-06] MEDS: ALBUTEROL SULFATE 1.25 MG/3 ML NEBU NEB SCH ×4 (00:40→19:06)
[2019-11-06] MEDS: PANTOPRAZOLE ORAL SUSPENSION 40 MG SUSPDR.PKT GT SCH (05:45)
[2019-11-06] MEDS: VALPROIC ACID 250 MG/5 ML LIQUID UDC GT SCH ×2 (05:45→14:16)
[2019-11-06 07:37] VITALS: BP 101/66
[2019-11-06] MEDS: BACLOFEN 20 MG TABLET GT SCH ×3 (08:53→20:19)
[2019-11-06] MEDS: NUTRISOURCE FIBER 4 GM PACKET GT SCH (08:53)
[2019-11-06] MEDS: ACIDOPHILUS/BULGARICUS CHEW TAB PO SCH ×2 (08:53→20:19)
[2019-11-06] MEDS: PHENOBARBITAL 32.4 MG TABLET GT SCH ×2 (08:53→20:19)
[2019-11-06] MEDS: JEVITY 1.2 1000 ML LIQUID GT PRN (08:53)
[2019-11-06] MEDS: Z GUARD REMEDY PASTE TP SCH ×2 (08:54→20:19)
[2019-11-06] MEDS: GEMFIBROZIL 600 MG TABLET PO SCH ×2 (08:54→20:19)
[2019-11-06] MEDS: HYDROGEN PEROXIDE 3% 118 ML BOTTLE TP SCH ×2 (09:00→21:05)
[2019-11-06] MEDS ORDERED: PHENOBARBITAL 32.4 MG TABLET PO ONE ×4 (09:00→21:00)
--- NOTE | 2019-11-06 09:12 | NUR ---
PT. WAS SEEN AND EXAMINED BY DR. PLAZA AND WITH NNO.
--- NOTE | 2019-11-06 18:54 | NUR ---
SEEN BY DR. ALMAGUER AND WITH NNO.
[2019-11-06 20:00] VITALS: BP 99/53
[2019-11-06] MEDS: OMEGA-3 FATTY ACIDS/FISH OIL CAPSULE GT SCH (20:19)
[2019-11-06] MEDS: VALPROIC ACID 250 MG/5 ML LIQUID UDC PO SCH (22:29)
[2019-11-07] MEDS: IPRATROPIUM BROMIDE 0.5 MG/2.5 ML NEBU NEB SCH ×4 (00:47→19:41)
[2019-11-07] MEDS: ALBUTEROL SULFATE 1.25 MG/3 ML NEBU NEB SCH ×4 (00:47→19:41)
[2019-11-07] MEDS: JEVITY 1.2 1000 ML LIQUID GT PRN (01:56)
[2019-11-07] MEDS: PANTOPRAZOLE ORAL SUSPENSION 40 MG SUSPDR.PKT GT SCH (05:25)
[2019-11-07] MEDS: VALPROIC ACID 250 MG/5 ML LIQUID UDC GT SCH ×2 (05:25→13:14)
[2019-11-07 07:48] VITALS: BP 101/65
[2019-11-07] MEDS: HYDROGEN PEROXIDE 3% 118 ML BOTTLE TP SCH ×2 (08:00→21:05)
[2019-11-07] MEDS: NUTRISOURCE FIBER 4 GM PACKET GT SCH (08:00)
[2019-11-07] MEDS: GEMFIBROZIL 600 MG TABLET PO SCH ×2 (08:00→21:00)
[2019-11-07] MEDS: BACLOFEN 20 MG TABLET GT SCH ×3 (08:00→21:00)
[2019-11-07] MEDS: ACIDOPHILUS/BULGARICUS CHEW TAB PO SCH ×2 (08:00→21:00)
[2019-11-07] MEDS: Z GUARD REMEDY PASTE TP SCH ×2 (08:00→21:00)
[2019-11-07] MEDS: PHENOBARBITAL 32.4 MG TABLET GT SCH ×2 (08:06→21:00)
[2019-11-07] MEDS ORDERED: PHENOBARBITAL 32.4 MG TABLET PO ONE ×4 (09:00→21:00)
[2019-11-07 20:00] VITALS: BP 97/55
[2019-11-07] MEDS: OMEGA-3 FATTY ACIDS/FISH OIL CAPSULE GT SCH (21:00)
[2019-11-07] MEDS: VALPROIC ACID 250 MG/5 ML LIQUID UDC PO SCH (22:05)
[2019-11-07] MEDS: POLYVINYL ALCOHOL OPHT DROPS 15 ML BOTTLE EACHEYE PRN (22:06)
[2019-11-08] MEDS: IPRATROPIUM BROMIDE 0.5 MG/2.5 ML NEBU NEB SCH ×4 (01:23→19:03)
[2019-11-08] MEDS: ALBUTEROL SULFATE 1.25 MG/3 ML NEBU NEB SCH ×4 (01:23→19:03)
[2019-11-08] MEDS: VALPROIC ACID 250 MG/5 ML LIQUID UDC GT SCH ×2 (05:54→13:06)
[2019-11-08] MEDS: PANTOPRAZOLE ORAL SUSPENSION 40 MG SUSPDR.PKT GT SCH (05:54)
[2019-11-08 07:43] VITALS: BP 118/58
[2019-11-08] MEDS: NUTRISOURCE FIBER 4 GM PACKET GT SCH (08:27)
[2019-11-08] MEDS: BACLOFEN 20 MG TABLET GT SCH ×3 (08:27→21:58)
[2019-11-08] MEDS: PHENOBARBITAL 32.4 MG TABLET GT SCH ×2 (08:29→21:58)
[2019-11-08] MEDS: GEMFIBROZIL 600 MG TABLET PO SCH ×2 (08:30→21:58)
[2019-11-08] MEDS: ACIDOPHILUS/BULGARICUS CHEW TAB PO SCH ×2 (08:30→21:58)
[2019-11-08] MEDS: Z GUARD REMEDY PASTE TP SCH ×2 (08:30→21:58)
[2019-11-08] MEDS: HYDROGEN PEROXIDE 3% 118 ML BOTTLE TP SCH ×2 (08:35→21:00)
[2019-11-08] MEDS ORDERED: PHENOBARBITAL 32.4 MG TABLET PO ONE ×4 (09:00→21:00)
[2019-11-08 20:00] VITALS: BP 95/62
[2019-11-08] MEDS: VALPROIC ACID 250 MG/5 ML LIQUID UDC PO SCH (21:58)
[2019-11-08] MEDS: OMEGA-3 FATTY ACIDS/FISH OIL CAPSULE GT SCH (21:58)
[2019-11-09] MEDS: ALBUTEROL SULFATE 1.25 MG/3 ML NEBU NEB SCH ×4 (00:54→19:21)
[2019-11-09] MEDS: IPRATROPIUM BROMIDE 0.5 MG/2.5 ML NEBU NEB SCH ×4 (00:54→19:21)
[2019-11-09] MEDS: JEVITY 1.2 1000 ML LIQUID GT PRN ×2 (05:01→23:09)
[2019-11-09] MEDS: PANTOPRAZOLE ORAL SUSPENSION 40 MG SUSPDR.PKT GT SCH (05:02)
[2019-11-09] MEDS: VALPROIC ACID 250 MG/5 ML LIQUID UDC GT SCH ×2 (05:02→13:33)
[2019-11-09] MEDS: HYDROGEN PEROXIDE 3% 118 ML BOTTLE TP SCH ×2 (07:45→21:09)
[2019-11-09] MEDS: BACLOFEN 20 MG TABLET GT SCH ×3 (08:41→21:44)
[2019-11-09] MEDS: NUTRISOURCE FIBER 4 GM PACKET GT SCH (08:41)
[2019-11-09] MEDS: PHENOBARBITAL 32.4 MG TABLET GT SCH ×2 (08:41→21:44)
[2019-11-09] MEDS: GEMFIBROZIL 600 MG TABLET PO SCH ×2 (08:42→21:44)
[2019-11-09] MEDS: ACIDOPHILUS/BULGARICUS CHEW TAB PO SCH ×2 (08:42→21:44)
[2019-11-09] MEDS: Z GUARD REMEDY PASTE TP SCH ×2 (08:43→21:44)
[2019-11-09] MEDS ORDERED: PHENOBARBITAL 32.4 MG TABLET PO ONE ×2 (09:00)
[2019-11-09 20:24] VITALS: BP 99/63
[2019-11-09] MEDS: OMEGA-3 FATTY ACIDS/FISH OIL CAPSULE GT SCH (21:44)
[2019-11-09] MEDS: VALPROIC ACID 250 MG/5 ML LIQUID UDC PO SCH (21:44)
[2019-11-10] MEDS: IPRATROPIUM BROMIDE 0.5 MG/2.5 ML NEBU NEB SCH ×4 (00:47→19:37)
[2019-11-10] MEDS: ALBUTEROL SULFATE 1.25 MG/3 ML NEBU NEB SCH ×4 (00:47→19:37)
[2019-11-10] MEDS: VALPROIC ACID 250 MG/5 ML LIQUID UDC GT SCH ×2 (06:09→14:10)
[2019-11-10] MEDS: PANTOPRAZOLE ORAL SUSPENSION 40 MG SUSPDR.PKT GT SCH (06:09)
[2019-11-10 07:44] VITALS: BP 96/56
[2019-11-10] MEDS: PHENOBARBITAL 32.4 MG TABLET GT SCH ×2 (09:01→21:00)
[2019-11-10] MEDS: BACLOFEN 20 MG TABLET GT SCH ×3 (09:01→21:00)
[2019-11-10] MEDS: ACIDOPHILUS/BULGARICUS CHEW TAB PO SCH ×2 (09:02→21:00)
[2019-11-10] MEDS: GEMFIBROZIL 600 MG TABLET PO SCH ×2 (09:02→21:00)
[2019-11-10] MEDS: Z GUARD REMEDY PASTE TP SCH ×2 (09:02→21:00)
[2019-11-10] MEDS: NUTRISOURCE FIBER 4 GM PACKET GT SCH (09:03)
[2019-11-10] MEDS: HYDROGEN PEROXIDE 3% 118 ML BOTTLE TP SCH ×2 (09:06→21:26)
--- NOTE | 2019-11-10 12:37 | NUR ---
NEW ORDER CARRIED OUT FROM DR. PLAZA TO CONTINUE KETOCONAZOLE DUE TO THE EFFECTIVENESS ON PT'S SCALY AND SEBORRHEIC SKIN ON FACE MAINTENANCE.
--- NOTE | 2019-11-10 14:56 | NUR ---
PT. WAS SEEN BY YOLANDA Grider AND WITH CAROLINO.
[2019-11-10] MEDS: KETOCONAZOLE 2% CREAM 30 GM TUBE TP SCH (17:16)
[2019-11-10] MEDS: OMEGA-3 FATTY ACIDS/FISH OIL CAPSULE GT SCH (21:00)
[2019-11-10 21:24] VITALS: BP 108/63
[2019-11-10] MEDS: VALPROIC ACID 250 MG/5 ML LIQUID UDC PO SCH (22:08)
[2019-11-11] MEDS: IPRATROPIUM BROMIDE 0.5 MG/2.5 ML NEBU NEB SCH ×4 (01:01→19:07)
[2019-11-11] MEDS: ALBUTEROL SULFATE 1.25 MG/3 ML NEBU NEB SCH ×4 (01:01→19:07)
[2019-11-11] MEDS: PANTOPRAZOLE ORAL SUSPENSION 40 MG SUSPDR.PKT GT SCH (06:33)
[2019-11-11] MEDS: VALPROIC ACID 250 MG/5 ML LIQUID UDC GT SCH ×2 (06:33→14:16)
[2019-11-11 07:36] VITALS: BP 112/71
[2019-11-11] MEDS: NUTRISOURCE FIBER 4 GM PACKET GT SCH (08:45)
[2019-11-11] MEDS: PHENOBARBITAL 32.4 MG TABLET GT SCH ×2 (08:45→20:13)
[2019-11-11] MEDS: BACLOFEN 20 MG TABLET GT SCH ×3 (08:45→20:13)
[2019-11-11] MEDS: GEMFIBROZIL 600 MG TABLET PO SCH ×2 (08:47→20:13)
[2019-11-11] MEDS: ACIDOPHILUS/BULGARICUS CHEW TAB PO SCH ×2 (08:47→20:13)
[2019-11-11] MEDS: Z GUARD REMEDY PASTE TP SCH ×2 (09:00→20:13)
[2019-11-11] MEDS: KETOCONAZOLE 2% CREAM 30 GM TUBE TP SCH ×2 (09:00→17:58)
[2019-11-11] MEDS: HYDROGEN PEROXIDE 3% 118 ML BOTTLE TP SCH ×2 (09:45→19:07)
--- NOTE | 2019-11-11 12:55 | NUR ---
INTERDISCIPLINARY PLAN OF CARE CONFERENCE was held today. Patient's mother was not available to participate in the meeting. Dr. Bowser and the Interdisciplinary Team reviewed the current plan of care in detail. RN reported on patient's current medical condition, outcomes of recent urology consultation, and provided an update on the treatment plan for patient's skin rashes. See RN IDT conference notes. See all also other disciplines IDT notes and physician's progress notes for additional details.
--- NOTE | 2019-11-11 13:55 | NUR ---
Pharmacy Update from Today's 11/11/19 IDT Meeting: Note: Patient was transferred to CCU 08/31-09/11 d/t fever, sepsis, hypotension requiring pressors and was found with aspiration PNA and UTI. Pt was stabilized, treated with appropriate antibiotics and readmitted to [facility] to finish abx courses. VS: Temp 97.8 BP 112/71 HR 92 LABS: (from 10/14/19) Wbc 5.9H/H 13/38.9Plt 223 Na 138K 4.4Cl 102CO2 33BUN/SCr 11/0.3 BS 119Ca 9.3 MEDICATION USE REVIEWED: > Pt not on any anti-psych medications > Pt on Phenobarbital 64.8mg q12hr. Last level on 09/15/19 was 34.2 (15-39) > Pt on Valproic acid 1000mg qhs and 500mg qam and 1400. Last level on 09/15/19 was 65 (50-100). Within range, no reported seizure activity noted > Previously on lovenox, d/c'd in CCU from last transfer in 09/11 d/t low plt concerns. Remains off DVT prophylaxis per MD PRN MED USAGE: (September) Tylenol for pain/temp used x0 Artificial tears PRN used x1 NEW/OTHER ORDERS NOTED: > Ketoconazole 2% cream to face (scaliness areas) daily for chronic maintenance 11/09 > Per Rx rec, norco PRN and midodrine PRN d/c'd 11/03 for lack of use. Transferred with pt from [facility], no longer needed. Pt was reviewed and discussed in detail with no medication issues noted per team. Rx reported recent medication recs and changes, no further recommendations at this time as pt stable on current regimen otherwise. Noted that pt has longstanding chronic skin folliculitis issues and flares, managed usually with ketoconazole to effect. Will continue to follow
--- NOTE | 2019-11-11 14:33 | NUR ---
SW received a billing statement from patient's mother Sade, from [facility]. TOMY called patient's Work. Comp. national insurance officer Kellie Scruggs [phone] and left her a voicemail message regarding the receipt of another bill from the same provider (previous bill received was in September, see SS note dated 10/09). TOMY once again faxed today's bill to Kellie at [phone].
[2019-11-11] MEDS: JEVITY 1.2 1000 ML LIQUID GT PRN (17:59)
[2019-11-11 20:01] VITALS: BP 104/68
[2019-11-11] MEDS: OMEGA-3 FATTY ACIDS/FISH OIL CAPSULE GT SCH (20:13)
[2019-11-11] MEDS: VALPROIC ACID 250 MG/5 ML LIQUID UDC PO SCH (22:49)
[2019-11-12] MEDS: ALBUTEROL SULFATE 1.25 MG/3 ML NEBU NEB SCH ×4 (00:44→19:16)
[2019-11-12] MEDS: IPRATROPIUM BROMIDE 0.5 MG/2.5 ML NEBU NEB SCH ×4 (00:44→19:16)
[2019-11-12] MEDS: PANTOPRAZOLE ORAL SUSPENSION 40 MG SUSPDR.PKT GT SCH (06:25)
[2019-11-12] MEDS: VALPROIC ACID 250 MG/5 ML LIQUID UDC GT SCH ×2 (06:25→14:28)
[2019-11-12 07:37] VITALS: BP 97/63
[2019-11-12] MEDS: PHENOBARBITAL 32.4 MG TABLET GT SCH ×2 (09:06→20:01)
[2019-11-12] MEDS: KETOCONAZOLE 2% CREAM 30 GM TUBE TP SCH ×2 (09:06→17:19)
[2019-11-12] MEDS: GEMFIBROZIL 600 MG TABLET PO SCH ×2 (09:06→20:01)
[2019-11-12] MEDS: NUTRISOURCE FIBER 4 GM PACKET GT SCH (09:06)
[2019-11-12] MEDS: Z GUARD REMEDY PASTE TP SCH ×2 (09:06→20:02)
[2019-11-12] MEDS: BACLOFEN 20 MG TABLET GT SCH ×3 (09:06→20:01)
[2019-11-12] MEDS: ACIDOPHILUS/BULGARICUS CHEW TAB PO SCH ×2 (09:06→20:01)
[2019-11-12] MEDS: HYDROGEN PEROXIDE 3% 118 ML BOTTLE TP SCH ×2 (09:22→21:44)
--- NOTE | 2019-11-12 09:51 | NUR ---
SW received a voicemail message this morning from patient's Work. Comp. property insurance claims examiner Kellie Scruggs [phone], in response to the voicemail message this SW had left Kellie yesterday (see SS note dated 11/10). Kellie stated in the voicemail message that she has received the fax this SW sent her yesterday, and that she would be following up with the office of [facility]. Kellie also stated in the voicemail message that when she received the first bill back in September (see previous SS notes), she attempted to call them several times but was unsuccessful with being able to connect with them. Kellie stated that she will continue to follow-up again to let them know that all services would be covered by patient's insurance.
[2019-11-12] MEDS: JEVITY 1.2 1000 ML LIQUID GT PRN (10:53)
[2019-11-12 20:00] VITALS: BP 97/60
[2019-11-12] MEDS: OMEGA-3 FATTY ACIDS/FISH OIL CAPSULE GT SCH (20:01)
[2019-11-12] MEDS: VALPROIC ACID 250 MG/5 ML LIQUID UDC PO SCH (22:41)
[2019-11-13] MEDS: ALBUTEROL SULFATE 1.25 MG/3 ML NEBU NEB SCH ×4 (00:50→19:25)
[2019-11-13] MEDS: IPRATROPIUM BROMIDE 0.5 MG/2.5 ML NEBU NEB SCH ×4 (00:50→19:24)
[2019-11-13] MEDS: JEVITY 1.2 1000 ML LIQUID GT PRN (04:18)
[2019-11-13] MEDS: PANTOPRAZOLE ORAL SUSPENSION 40 MG SUSPDR.PKT GT SCH (05:59)
[2019-11-13] MEDS: VALPROIC ACID 250 MG/5 ML LIQUID UDC GT SCH ×2 (05:59→14:00)
[2019-11-13 07:22] VITALS: BP 101/67
[2019-11-13] MEDS: GEMFIBROZIL 600 MG TABLET PO SCH ×2 (08:41→20:20)
[2019-11-13] MEDS: Z GUARD REMEDY PASTE TP SCH ×2 (08:41→20:20)
[2019-11-13] MEDS: PHENOBARBITAL 32.4 MG TABLET GT SCH ×2 (08:41→20:20)
[2019-11-13] MEDS: ACIDOPHILUS/BULGARICUS CHEW TAB PO SCH ×2 (08:41→20:20)
[2019-11-13] MEDS: BACLOFEN 20 MG TABLET GT SCH ×3 (08:41→20:20)
[2019-11-13] MEDS: KETOCONAZOLE 2% CREAM 30 GM TUBE TP SCH ×2 (08:41→17:31)
[2019-11-13] MEDS: NUTRISOURCE FIBER 4 GM PACKET GT SCH (08:41)
[2019-11-13] MEDS: HYDROGEN PEROXIDE 3% 118 ML BOTTLE TP SCH ×2 (09:00→21:10)
[2019-11-13 20:05] VITALS: BP 90/58
[2019-11-13] MEDS: OMEGA-3 FATTY ACIDS/FISH OIL CAPSULE GT SCH (20:20)
[2019-11-13] MEDS: VALPROIC ACID 250 MG/5 ML LIQUID UDC PO SCH (22:19)
[2019-11-14] MEDS: ALBUTEROL SULFATE 1.25 MG/3 ML NEBU NEB SCH ×5 (00:56→19:03)
[2019-11-14] MEDS: IPRATROPIUM BROMIDE 0.5 MG/2.5 ML NEBU NEB SCH ×5 (00:56→19:03)
[2019-11-14] MEDS: VALPROIC ACID 250 MG/5 ML LIQUID UDC GT SCH ×2 (05:43→14:35)
[2019-11-14] MEDS: PANTOPRAZOLE ORAL SUSPENSION 40 MG SUSPDR.PKT GT SCH (05:43)
[2019-11-14 07:26] VITALS: BP 93/63
[2019-11-14] MEDS: PHENOBARBITAL 32.4 MG TABLET GT SCH ×2 (09:10→20:52)
[2019-11-14] MEDS: BACLOFEN 20 MG TABLET GT SCH ×3 (09:10→20:52)
[2019-11-14] MEDS: NUTRISOURCE FIBER 4 GM PACKET GT SCH (09:10)
[2019-11-14] MEDS: ACIDOPHILUS/BULGARICUS CHEW TAB PO SCH ×2 (09:10→20:52)
[2019-11-14] MEDS: KETOCONAZOLE 2% CREAM 30 GM TUBE TP SCH ×2 (09:11→17:01)
[2019-11-14] MEDS: Z GUARD REMEDY PASTE TP SCH ×2 (09:11→20:52)
[2019-11-14] MEDS: GEMFIBROZIL 600 MG TABLET PO SCH ×2 (09:11→20:52)
[2019-11-14] MEDS: HYDROGEN PEROXIDE 3% 118 ML BOTTLE TP SCH ×2 (09:27→21:09)
[2019-11-14 20:18] VITALS: BP 103/62
[2019-11-14] MEDS: OMEGA-3 FATTY ACIDS/FISH OIL CAPSULE GT SCH (20:52)
[2019-11-14] MEDS ORDERED: PHENOBARBITAL 32.4 MG TABLET PO ONE ×2 (21:00)
[2019-11-14] MEDS: VALPROIC ACID 250 MG/5 ML LIQUID UDC PO SCH (21:17)
[2019-11-15] MEDS: ALBUTEROL SULFATE 1.25 MG/3 ML NEBU NEB SCH ×4 (01:14→19:04)
[2019-11-15] MEDS: IPRATROPIUM BROMIDE 0.5 MG/2.5 ML NEBU NEB SCH ×4 (01:14→19:04)
[2019-11-15] MEDS: PANTOPRAZOLE ORAL SUSPENSION 40 MG SUSPDR.PKT GT SCH (05:40)
[2019-11-15] MEDS: VALPROIC ACID 250 MG/5 ML LIQUID UDC GT SCH ×2 (05:40→13:03)
[2019-11-15 08:00] VITALS: BP 96/60
[2019-11-15] MEDS ORDERED: PHENOBARBITAL 32.4 MG TABLET PO ONE ×4 (09:00→21:00)
[2019-11-15] MEDS: KETOCONAZOLE 2% CREAM 30 GM TUBE TP SCH ×2 (09:03→17:44)
[2019-11-15] MEDS: GEMFIBROZIL 600 MG TABLET PO SCH ×2 (09:03→20:50)
[2019-11-15] MEDS: Z GUARD REMEDY PASTE TP SCH ×2 (09:03→20:50)
[2019-11-15] MEDS: NUTRISOURCE FIBER 4 GM PACKET GT SCH (09:03)
[2019-11-15] MEDS: BACLOFEN 20 MG TABLET GT SCH ×3 (09:03→20:49)
[2019-11-15] MEDS: PHENOBARBITAL 32.4 MG TABLET GT SCH ×2 (09:03→20:50)
[2019-11-15] MEDS: ACIDOPHILUS/BULGARICUS CHEW TAB PO SCH ×2 (09:03→20:50)
[2019-11-15] MEDS: HYDROGEN PEROXIDE 3% 118 ML BOTTLE TP SCH ×2 (09:50→21:22)
[2019-11-15] MEDS: OMEGA-3 FATTY ACIDS/FISH OIL CAPSULE GT SCH (20:49)
[2019-11-15] MEDS: VALPROIC ACID 250 MG/5 ML LIQUID UDC PO SCH (21:35)
[2019-11-15 21:44] VITALS: BP 113/68
[2019-11-16] MEDS: ALBUTEROL SULFATE 1.25 MG/3 ML NEBU NEB SCH ×4 (01:03→18:54)
[2019-11-16] MEDS: IPRATROPIUM BROMIDE 0.5 MG/2.5 ML NEBU NEB SCH ×4 (01:03→18:54)
[2019-11-16] MEDS: JEVITY 1.2 1000 ML LIQUID GT PRN ×2 (01:30→18:19)
[2019-11-16] MEDS: PANTOPRAZOLE ORAL SUSPENSION 40 MG SUSPDR.PKT GT SCH (05:36)
[2019-11-16] MEDS: VALPROIC ACID 250 MG/5 ML LIQUID UDC GT SCH ×2 (05:36→14:44)
[2019-11-16 07:28] VITALS: BP 96/58
[2019-11-16] MEDS: GEMFIBROZIL 600 MG TABLET PO SCH ×2 (08:25→21:03)
[2019-11-16] MEDS: KETOCONAZOLE 2% CREAM 30 GM TUBE TP SCH ×2 (08:25→17:00)
[2019-11-16] MEDS: NUTRISOURCE FIBER 4 GM PACKET GT SCH (08:25)
[2019-11-16] MEDS: ACIDOPHILUS/BULGARICUS CHEW TAB PO SCH ×2 (08:25→21:03)
[2019-11-16] MEDS: PHENOBARBITAL 32.4 MG TABLET GT SCH ×2 (08:25→21:03)
[2019-11-16] MEDS: BACLOFEN 20 MG TABLET GT SCH ×3 (08:25→21:03)
[2019-11-16] MEDS: Z GUARD REMEDY PASTE TP SCH ×2 (08:25→21:03)
[2019-11-16] MEDS ORDERED: PHENOBARBITAL 32.4 MG TABLET PO ONE ×4 (09:00→21:00)
[2019-11-16] MEDS: HYDROGEN PEROXIDE 3% 118 ML BOTTLE TP SCH ×2 (09:45→20:35)
[2019-11-16] MEDS: VALPROIC ACID 250 MG/5 ML LIQUID UDC PO SCH (21:03)
[2019-11-16] MEDS: OMEGA-3 FATTY ACIDS/FISH OIL CAPSULE GT SCH (21:03)
[2019-11-16 21:07] VITALS: BP 98/60
[2019-11-17] MEDS: IPRATROPIUM BROMIDE 0.5 MG/2.5 ML NEBU NEB SCH ×4 (00:54→20:10)
[2019-11-17] MEDS: ALBUTEROL SULFATE 1.25 MG/3 ML NEBU NEB SCH ×4 (00:54→20:10)
[2019-11-17] MEDS: VALPROIC ACID 250 MG/5 ML LIQUID UDC GT SCH ×2 (05:37→14:09)
[2019-11-17] MEDS: PANTOPRAZOLE ORAL SUSPENSION 40 MG SUSPDR.PKT GT SCH (05:37)
[2019-11-17 07:26] VITALS: BP 97/57
[2019-11-17] MEDS: COD LIVER OIL/ZINC OXIDE OINT 113 GM TUBE TP SCH ×2 (08:56→20:21)
[2019-11-17] MEDS: GEMFIBROZIL 600 MG TABLET PO SCH ×2 (08:56→20:21)
[2019-11-17] MEDS: KETOCONAZOLE 2% CREAM 30 GM TUBE TP SCH ×2 (08:56→17:47)
[2019-11-17] MEDS: NUTRISOURCE FIBER 4 GM PACKET GT SCH (08:56)
[2019-11-17] MEDS: BACLOFEN 20 MG TABLET GT SCH ×3 (08:56→20:21)
[2019-11-17] MEDS: ACIDOPHILUS/BULGARICUS CHEW TAB PO SCH ×2 (08:56→20:21)
[2019-11-17] MEDS: PHENOBARBITAL 32.4 MG TABLET GT SCH ×2 (08:56→20:21)
[2019-11-17] MEDS: Z GUARD REMEDY PASTE TP SCH ×2 (08:57→20:22)
[2019-11-17] MEDS ORDERED: PHENOBARBITAL 32.4 MG TABLET ONE ×2 (09:00→21:00)
[2019-11-17] MEDS: HYDROGEN PEROXIDE 3% 118 ML BOTTLE TP SCH ×2 (09:21→21:40)
--- NOTE | 2019-11-17 09:28 | NUR ---
Scrotum excoriation noted, tx ordered to cleanse with normal saline, apply desitin to affected area qshit x14 days, mother notified of patient's condition.
[2019-11-17] MEDS: OMEGA-3 FATTY ACIDS/FISH OIL CAPSULE GT SCH (20:21)
[2019-11-17 20:56] VITALS: BP 99/59
[2019-11-17] MEDS: VALPROIC ACID 250 MG/5 ML LIQUID UDC PO SCH (21:50)
[2019-11-18] MEDS: ALBUTEROL SULFATE 1.25 MG/3 ML NEBU NEB SCH ×4 (01:32→19:15)
[2019-11-18] MEDS: IPRATROPIUM BROMIDE 0.5 MG/2.5 ML NEBU NEB SCH ×4 (01:32→19:15)
[2019-11-18] MEDS: JEVITY 1.2 1000 ML LIQUID GT PRN ×2 (02:19→17:55)
[2019-11-18] MEDS: VALPROIC ACID 250 MG/5 ML LIQUID UDC GT SCH ×2 (05:24→14:58)
[2019-11-18] MEDS: PANTOPRAZOLE ORAL SUSPENSION 40 MG SUSPDR.PKT GT SCH (05:24)
[2019-11-18 07:18] VITALS: BP 104/59
[2019-11-18] MEDS ORDERED: PHENOBARBITAL 32.4 MG TABLET ONE ×2 (09:00→21:00)
[2019-11-18] MEDS: COD LIVER OIL/ZINC OXIDE OINT 113 GM TUBE TP SCH ×2 (09:11→20:12)
[2019-11-18] MEDS: NUTRISOURCE FIBER 4 GM PACKET GT SCH (09:11)
[2019-11-18] MEDS: Z GUARD REMEDY PASTE TP SCH ×2 (09:11→20:12)
[2019-11-18] MEDS: KETOCONAZOLE 2% CREAM 30 GM TUBE TP SCH ×2 (09:11→17:55)
[2019-11-18] MEDS: ACIDOPHILUS/BULGARICUS CHEW TAB PO SCH ×2 (09:11→20:09)
[2019-11-18] MEDS: GEMFIBROZIL 600 MG TABLET PO SCH ×2 (09:11→20:11)
[2019-11-18] MEDS: BACLOFEN 20 MG TABLET GT SCH ×3 (09:11→20:06)
[2019-11-18] MEDS: PHENOBARBITAL 32.4 MG TABLET GT SCH ×2 (09:11→20:08)
[2019-11-18] MEDS: HYDROGEN PEROXIDE 3% 118 ML BOTTLE TP SCH ×2 (09:16→20:32)
[2019-11-18] MEDS: OMEGA-3 FATTY ACIDS/FISH OIL CAPSULE GT SCH (20:02)
[2019-11-18 20:19] VITALS: BP 99/60
[2019-11-18] MEDS: VALPROIC ACID 250 MG/5 ML LIQUID UDC PO SCH (22:24)
[2019-11-19] MEDS: ALBUTEROL SULFATE 1.25 MG/3 ML NEBU NEB SCH ×4 (01:52→19:22)
[2019-11-19] MEDS: IPRATROPIUM BROMIDE 0.5 MG/2.5 ML NEBU NEB SCH ×4 (01:52→19:22)
[2019-11-19] MEDS: VALPROIC ACID 250 MG/5 ML LIQUID UDC GT SCH ×2 (06:32→13:48)
[2019-11-19] MEDS: PANTOPRAZOLE ORAL SUSPENSION 40 MG SUSPDR.PKT GT SCH (06:32)
[2019-11-19 07:55] VITALS: BP 98/69
[2019-11-19] MEDS: BACLOFEN 20 MG TABLET GT SCH ×3 (08:44→20:10)
[2019-11-19] MEDS: NUTRISOURCE FIBER 4 GM PACKET GT SCH (08:44)
[2019-11-19] MEDS: PHENOBARBITAL 32.4 MG TABLET GT SCH ×2 (08:44→20:11)
[2019-11-19] MEDS: ACIDOPHILUS/BULGARICUS CHEW TAB PO SCH ×2 (08:45→20:12)
[2019-11-19] MEDS: COD LIVER OIL/ZINC OXIDE OINT 113 GM TUBE TP SCH ×2 (08:46→20:12)
[2019-11-19] MEDS: GEMFIBROZIL 600 MG TABLET PO SCH ×2 (08:46→20:12)
[2019-11-19] MEDS: Z GUARD REMEDY PASTE TP SCH ×2 (08:47→20:12)
[2019-11-19] MEDS: KETOCONAZOLE 2% CREAM 30 GM TUBE TP SCH ×2 (08:47→17:00)
[2019-11-19] MEDS ORDERED: PHENOBARBITAL 32.4 MG TABLET ONE (09:00)
[2019-11-19] MEDS: HYDROGEN PEROXIDE 3% 118 ML BOTTLE TP SCH ×2 (09:40→21:05)
--- NOTE | 2019-11-19 17:09 | NUR ---
New orders to do the Baseline [facility] Covid 19 test requirement.
[2019-11-19 20:00] VITALS: BP 115/78
[2019-11-19] MEDS: OMEGA-3 FATTY ACIDS/FISH OIL CAPSULE GT SCH (20:09)
[2019-11-19] MEDS ORDERED: PHENOBARBITAL 32.4 MG TABLET PO ONE ×2 (21:00)
[2019-11-19] MEDS: VALPROIC ACID 250 MG/5 ML LIQUID UDC PO SCH (22:22)
[2019-11-20] MEDS: ALBUTEROL SULFATE 1.25 MG/3 ML NEBU NEB SCH ×4 (01:00→19:10)
[2019-11-20] MEDS: IPRATROPIUM BROMIDE 0.5 MG/2.5 ML NEBU NEB SCH ×4 (01:00→19:10)
[2019-11-20] MEDS: VALPROIC ACID 250 MG/5 ML LIQUID UDC GT SCH ×2 (05:49→13:05)
[2019-11-20] MEDS: JEVITY 1.2 1000 ML LIQUID GT PRN (05:49)
[2019-11-20] MEDS: PANTOPRAZOLE ORAL SUSPENSION 40 MG SUSPDR.PKT GT SCH (05:49)
[2019-11-20 07:53] VITALS: BP 98/62
[2019-11-20] MEDS ORDERED: PHENOBARBITAL 32.4 MG TABLET PO ONE ×4 (09:00→21:00)
[2019-11-20] MEDS: GEMFIBROZIL 600 MG TABLET PO SCH ×2 (09:02→20:09)
[2019-11-20] MEDS: NUTRISOURCE FIBER 4 GM PACKET GT SCH (09:02)
[2019-11-20] MEDS: ACIDOPHILUS/BULGARICUS CHEW TAB PO SCH ×2 (09:02→20:09)
[2019-11-20] MEDS: BACLOFEN 20 MG TABLET GT SCH ×3 (09:02→20:03)
[2019-11-20] MEDS: PHENOBARBITAL 32.4 MG TABLET GT SCH ×2 (09:02→20:07)
[2019-11-20] MEDS: Z GUARD REMEDY PASTE TP SCH ×2 (09:03→20:10)
[2019-11-20] MEDS: COD LIVER OIL/ZINC OXIDE OINT 113 GM TUBE TP SCH ×2 (09:03→20:09)
[2019-11-20] MEDS: KETOCONAZOLE 2% CREAM 30 GM TUBE TP SCH ×2 (09:04→17:41)
[2019-11-20] MEDS: HYDROGEN PEROXIDE 3% 118 ML BOTTLE TP SCH ×2 (09:22→21:27)
[2019-11-20] MEDS: OMEGA-3 FATTY ACIDS/FISH OIL CAPSULE GT SCH (20:03)
[2019-11-20 20:20] VITALS: BP 119/71
[2019-11-20] MEDS: VALPROIC ACID 250 MG/5 ML LIQUID UDC PO SCH (22:17)
[2019-11-21] MEDS: IPRATROPIUM BROMIDE 0.5 MG/2.5 ML NEBU NEB SCH ×4 (00:48→19:03)
[2019-11-21] MEDS: ALBUTEROL SULFATE 1.25 MG/3 ML NEBU NEB SCH ×4 (00:48→19:03)
[2019-11-21] MEDS: VALPROIC ACID 250 MG/5 ML LIQUID UDC GT SCH ×2 (05:11→13:39)
[2019-11-21] MEDS: PANTOPRAZOLE ORAL SUSPENSION 40 MG SUSPDR.PKT GT SCH (05:11)
[2019-11-21] MEDS: JEVITY 1.2 1000 ML LIQUID GT PRN ×2 (05:12→23:23)
[2019-11-21 07:47] VITALS: BP 96/64
[2019-11-21] MEDS: NUTRISOURCE FIBER 4 GM PACKET GT SCH (08:30)
[2019-11-21] MEDS: BACLOFEN 20 MG TABLET GT SCH ×3 (08:30→21:00)
[2019-11-21] MEDS: Z GUARD REMEDY PASTE TP SCH ×2 (08:31→21:00)
[2019-11-21] MEDS: COD LIVER OIL/ZINC OXIDE OINT 113 GM TUBE TP SCH ×2 (08:31→21:00)
[2019-11-21] MEDS: GEMFIBROZIL 600 MG TABLET PO SCH ×2 (08:31→21:00)
[2019-11-21] MEDS: ACIDOPHILUS/BULGARICUS CHEW TAB PO SCH ×2 (08:31→21:00)
[2019-11-21] MEDS: KETOCONAZOLE 2% CREAM 30 GM TUBE TP SCH ×2 (08:31→17:43)
[2019-11-21] MEDS: PHENOBARBITAL 32.4 MG TABLET GT SCH ×2 (08:31→21:00)
[2019-11-21] MEDS ORDERED: PHENOBARBITAL 32.4 MG TABLET PO ONE ×4 (09:00→21:00)
[2019-11-21] MEDS: HYDROGEN PEROXIDE 3% 118 ML BOTTLE TP SCH ×2 (09:00→21:35)
--- NOTE | 2019-11-21 20:00 | NUR ---
PT. NEGATIVE FOR COVID 19 .
[2019-11-21 20:01] VITALS: BP 106/67
[2019-11-21] MEDS: OMEGA-3 FATTY ACIDS/FISH OIL CAPSULE GT SCH (21:00)
[2019-11-21] MEDS: VALPROIC ACID 250 MG/5 ML LIQUID UDC PO SCH (22:42)
[2019-11-22] MEDS: ALBUTEROL SULFATE 1.25 MG/3 ML NEBU NEB SCH ×4 (00:50→19:03)
[2019-11-22] MEDS: IPRATROPIUM BROMIDE 0.5 MG/2.5 ML NEBU NEB SCH ×4 (00:50→19:03)
[2019-11-22] MEDS: VALPROIC ACID 250 MG/5 ML LIQUID UDC GT SCH ×2 (06:13→13:10)
[2019-11-22] MEDS: PANTOPRAZOLE ORAL SUSPENSION 40 MG SUSPDR.PKT GT SCH (06:13)
[2019-11-22] MEDS: HYDROGEN PEROXIDE 3% 118 ML BOTTLE TP SCH ×2 (07:15→21:00)
[2019-11-22 07:41] VITALS: BP 125/84
[2019-11-22] MEDS ORDERED: PHENOBARBITAL 32.4 MG TABLET PO ONE ×4 (09:00→21:00)
[2019-11-22] MEDS: BACLOFEN 20 MG TABLET GT SCH ×3 (09:21→21:53)
[2019-11-22] MEDS: KETOCONAZOLE 2% CREAM 30 GM TUBE TP SCH ×2 (09:24→17:57)
[2019-11-22] MEDS: ACIDOPHILUS/BULGARICUS CHEW TAB PO SCH ×2 (09:24→21:54)
[2019-11-22] MEDS: Z GUARD REMEDY PASTE TP SCH ×2 (09:24→21:54)
[2019-11-22] MEDS: COD LIVER OIL/ZINC OXIDE OINT 113 GM TUBE TP SCH ×2 (09:24→21:54)
[2019-11-22] MEDS: GEMFIBROZIL 600 MG TABLET PO SCH ×2 (09:24→21:54)
[2019-11-22] MEDS: NUTRISOURCE FIBER 4 GM PACKET GT SCH (09:24)
[2019-11-22] MEDS: PHENOBARBITAL 32.4 MG TABLET GT SCH ×2 (09:24→21:53)
--- NOTE | 2019-11-22 10:00 | NUR ---
SEEN BY DR. ALMAGUER AND WITH NNO.
[2019-11-22 19:53] VITALS: BP 123/80
[2019-11-22] MEDS: OMEGA-3 FATTY ACIDS/FISH OIL CAPSULE GT SCH (21:53)
[2019-11-22] MEDS: VALPROIC ACID 250 MG/5 ML LIQUID UDC PO SCH (21:55)
[2019-11-23] MEDS: IPRATROPIUM BROMIDE 0.5 MG/2.5 ML NEBU NEB SCH ×4 (01:41→19:46)
[2019-11-23] MEDS: ALBUTEROL SULFATE 1.25 MG/3 ML NEBU NEB SCH ×4 (01:41→19:46)
[2019-11-23] MEDS: PANTOPRAZOLE ORAL SUSPENSION 40 MG SUSPDR.PKT GT SCH (05:12)
[2019-11-23] MEDS: VALPROIC ACID 250 MG/5 ML LIQUID UDC GT SCH ×2 (05:12→13:23)
[2019-11-23 08:00] VITALS: BP 99/60
[2019-11-23] MEDS: GEMFIBROZIL 600 MG TABLET PO SCH ×2 (08:54→20:19)
[2019-11-23] MEDS: BACLOFEN 20 MG TABLET GT SCH ×3 (08:54→20:17)
[2019-11-23] MEDS: NUTRISOURCE FIBER 4 GM PACKET GT SCH (08:54)
[2019-11-23] MEDS: ACIDOPHILUS/BULGARICUS CHEW TAB PO SCH ×2 (08:54→20:19)
[2019-11-23] MEDS: PHENOBARBITAL 32.4 MG TABLET GT SCH ×2 (08:54→20:17)
[2019-11-23] MEDS: COD LIVER OIL/ZINC OXIDE OINT 113 GM TUBE TP SCH ×2 (08:54→20:19)
[2019-11-23] MEDS: KETOCONAZOLE 2% CREAM 30 GM TUBE TP SCH ×2 (08:55→17:07)
[2019-11-23] MEDS: Z GUARD REMEDY PASTE TP SCH ×2 (08:55→20:19)
[2019-11-23] MEDS ORDERED: PHENOBARBITAL 32.4 MG TABLET PO ONE ×4 (09:00→21:00)
[2019-11-23] MEDS: HYDROGEN PEROXIDE 3% 118 ML BOTTLE TP SCH ×2 (09:11→21:26)
[2019-11-23 19:51] VITALS: BP 106/71
[2019-11-23] MEDS: OMEGA-3 FATTY ACIDS/FISH OIL CAPSULE GT SCH (20:17)
[2019-11-23] MEDS: VALPROIC ACID 250 MG/5 ML LIQUID UDC PO SCH (22:54)
[2019-11-24] MEDS: IPRATROPIUM BROMIDE 0.5 MG/2.5 ML NEBU NEB SCH ×4 (01:33→19:11)
[2019-11-24] MEDS: ALBUTEROL SULFATE 1.25 MG/3 ML NEBU NEB SCH ×4 (01:33→19:11)
[2019-11-24] MEDS: VALPROIC ACID 250 MG/5 ML LIQUID UDC GT SCH ×2 (05:21→14:29)
[2019-11-24] MEDS: PANTOPRAZOLE ORAL SUSPENSION 40 MG SUSPDR.PKT GT SCH (05:21)
[2019-11-24 07:25] VITALS: BP 99/52
[2019-11-24] MEDS: BACLOFEN 20 MG TABLET GT SCH ×3 (08:41→21:25)
[2019-11-24] MEDS: ACIDOPHILUS/BULGARICUS CHEW TAB PO SCH ×2 (08:41→21:25)
[2019-11-24] MEDS: PHENOBARBITAL 32.4 MG TABLET GT SCH ×2 (08:41→21:25)
[2019-11-24] MEDS: NUTRISOURCE FIBER 4 GM PACKET GT SCH (08:41)
[2019-11-24] MEDS: GEMFIBROZIL 600 MG TABLET PO SCH ×2 (08:42→21:25)
[2019-11-24] MEDS: COD LIVER OIL/ZINC OXIDE OINT 113 GM TUBE TP SCH ×2 (08:42→21:25)
[2019-11-24] MEDS: Z GUARD REMEDY PASTE TP SCH ×2 (09:00→21:25)
[2019-11-24] MEDS: KETOCONAZOLE 2% CREAM 30 GM TUBE TP SCH ×2 (09:00→17:29)
[2019-11-24] MEDS ORDERED: PHENOBARBITAL 32.4 MG TABLET PO ONE ×4 (09:00→21:00)
[2019-11-24] MEDS: HYDROGEN PEROXIDE 3% 118 ML BOTTLE TP SCH ×2 (09:38→21:39)
[2019-11-24] MEDS: JEVITY 1.2 1000 ML LIQUID GT PRN (12:02)
--- NOTE | 2019-11-24 12:55 | NUR ---
SEEN BY YOLANDA Grider AND WITH NNO.
--- NOTE | 2019-11-24 15:03 | NUR ---
DR. JERSEY SHUKLA WAS CALLED AND MESSAGE LEFT RE: CONSULTATION TO F/U CHANGE OF F/C HE REQUESTED.
[2019-11-24 20:07] VITALS: BP 103/70
[2019-11-24] MEDS: VALPROIC ACID 250 MG/5 ML LIQUID UDC PO SCH (21:25)
[2019-11-24] MEDS: OMEGA-3 FATTY ACIDS/FISH OIL CAPSULE GT SCH (21:25)
[2019-11-25] MEDS: IPRATROPIUM BROMIDE 0.5 MG/2.5 ML NEBU NEB SCH ×4 (00:49→19:27)
[2019-11-25] MEDS: ALBUTEROL SULFATE 1.25 MG/3 ML NEBU NEB SCH ×4 (00:49→19:27)
[2019-11-25] MEDS: PANTOPRAZOLE ORAL SUSPENSION 40 MG SUSPDR.PKT GT SCH (05:52)
[2019-11-25] MEDS: VALPROIC ACID 250 MG/5 ML LIQUID UDC GT SCH ×2 (05:52→14:00)
[2019-11-25] MEDS: JEVITY 1.2 1000 ML LIQUID GT PRN ×2 (06:47→23:48)
[2019-11-25 07:31] VITALS: BP 105/70
[2019-11-25] MEDS: PHENOBARBITAL 32.4 MG TABLET GT SCH ×2 (08:42→20:31)
[2019-11-25] MEDS: ACIDOPHILUS/BULGARICUS CHEW TAB PO SCH ×2 (08:42→20:31)
[2019-11-25] MEDS: BACLOFEN 20 MG TABLET GT SCH ×3 (08:42→20:31)
[2019-11-25] MEDS: GEMFIBROZIL 600 MG TABLET PO SCH ×2 (08:42→20:31)
[2019-11-25] MEDS: NUTRISOURCE FIBER 4 GM PACKET GT SCH (08:42)
[2019-11-25] MEDS: Z GUARD REMEDY PASTE TP SCH ×2 (08:43→20:31)
[2019-11-25] MEDS: COD LIVER OIL/ZINC OXIDE OINT 113 GM TUBE TP SCH ×2 (08:43→20:31)
[2019-11-25] MEDS: KETOCONAZOLE 2% CREAM 30 GM TUBE TP SCH ×2 (08:43→17:04)
[2019-11-25] MEDS ORDERED: PHENOBARBITAL 32.4 MG TABLET PO ONE ×4 (09:00→21:00)
[2019-11-25] MEDS: HYDROGEN PEROXIDE 3% 118 ML BOTTLE TP SCH ×2 (09:07→21:12)
[2019-11-25 19:50] VITALS: BP 97/63
[2019-11-25] MEDS: OMEGA-3 FATTY ACIDS/FISH OIL CAPSULE GT SCH (20:31)
[2019-11-25] MEDS: VALPROIC ACID 250 MG/5 ML LIQUID UDC PO SCH (22:18)
[2019-11-26] MEDS: ALBUTEROL SULFATE 1.25 MG/3 ML NEBU NEB SCH ×4 (00:55→19:35)
[2019-11-26] MEDS: IPRATROPIUM BROMIDE 0.5 MG/2.5 ML NEBU NEB SCH ×4 (00:55→19:35)
[2019-11-26] MEDS: PANTOPRAZOLE ORAL SUSPENSION 40 MG SUSPDR.PKT GT SCH (05:32)
[2019-11-26] MEDS: VALPROIC ACID 250 MG/5 ML LIQUID UDC GT SCH ×2 (05:32→14:26)
[2019-11-26 07:44] VITALS: BP 108/70
[2019-11-26] MEDS ORDERED: PHENOBARBITAL 32.4 MG TABLET PO ONE ×4 (09:00→21:00)
[2019-11-26] MEDS: ACIDOPHILUS/BULGARICUS CHEW TAB PO SCH ×2 (09:18→21:00)
[2019-11-26] MEDS: KETOCONAZOLE 2% CREAM 30 GM TUBE TP SCH ×2 (09:18→17:30)
[2019-11-26] MEDS: GEMFIBROZIL 600 MG TABLET PO SCH ×2 (09:18→21:00)
[2019-11-26] MEDS: Z GUARD REMEDY PASTE TP SCH ×2 (09:18→21:00)
[2019-11-26] MEDS: NUTRISOURCE FIBER 4 GM PACKET GT SCH (09:18)
[2019-11-26] MEDS: BACLOFEN 20 MG TABLET GT SCH ×3 (09:18→21:00)
[2019-11-26] MEDS: PHENOBARBITAL 32.4 MG TABLET GT SCH ×2 (09:18→21:00)
[2019-11-26] MEDS: COD LIVER OIL/ZINC OXIDE OINT 113 GM TUBE TP SCH ×2 (09:18→21:00)
[2019-11-26] MEDS: HYDROGEN PEROXIDE 3% 118 ML BOTTLE TP SCH ×2 (09:23→21:00)
[2019-11-26 20:28] VITALS: BP 100/56
[2019-11-26] MEDS: OMEGA-3 FATTY ACIDS/FISH OIL CAPSULE GT SCH (21:00)
[2019-11-26] MEDS: VALPROIC ACID 250 MG/5 ML LIQUID UDC PO SCH (22:50)
[2019-11-27] MEDS: IPRATROPIUM BROMIDE 0.5 MG/2.5 ML NEBU NEB SCH ×4 (01:45→19:26)
[2019-11-27] MEDS: ALBUTEROL SULFATE 1.25 MG/3 ML NEBU NEB SCH ×4 (01:45→19:26)
[2019-11-27] MEDS: PANTOPRAZOLE ORAL SUSPENSION 40 MG SUSPDR.PKT GT SCH (05:52)
[2019-11-27] MEDS: VALPROIC ACID 250 MG/5 ML LIQUID UDC GT SCH ×2 (05:52→13:54)
[2019-11-27 07:35] VITALS: BP 112/74
[2019-11-27] MEDS: BACLOFEN 20 MG TABLET GT SCH ×3 (08:39→21:24)
[2019-11-27] MEDS: GEMFIBROZIL 600 MG TABLET PO SCH ×2 (08:40→21:24)
[2019-11-27] MEDS: NUTRISOURCE FIBER 4 GM PACKET GT SCH (08:41)
[2019-11-27] MEDS: ACIDOPHILUS/BULGARICUS CHEW TAB PO SCH ×2 (08:41→21:26)
[2019-11-27] MEDS: PHENOBARBITAL 32.4 MG TABLET GT SCH ×2 (08:41→21:24)
[2019-11-27] MEDS: COD LIVER OIL/ZINC OXIDE OINT 113 GM TUBE TP SCH ×2 (08:44→21:26)
[2019-11-27] MEDS: Z GUARD REMEDY PASTE TP SCH ×2 (08:45→21:26)
[2019-11-27] MEDS: KETOCONAZOLE 2% CREAM 30 GM TUBE TP SCH ×2 (08:45→17:12)
[2019-11-27] MEDS: HYDROGEN PEROXIDE 3% 118 ML BOTTLE TP SCH ×2 (09:40→21:16)
[2019-11-27 20:00] VITALS: BP 121/79
[2019-11-27] MEDS: VALPROIC ACID 250 MG/5 ML LIQUID UDC PO SCH (21:26)
[2019-11-27] MEDS: OMEGA-3 FATTY ACIDS/FISH OIL CAPSULE GT SCH (21:28)
[2019-11-28] MEDS: IPRATROPIUM BROMIDE 0.5 MG/2.5 ML NEBU NEB SCH ×4 (00:55→20:16)
[2019-11-28] MEDS: ALBUTEROL SULFATE 1.25 MG/3 ML NEBU NEB SCH ×4 (00:55→20:16)
[2019-11-28] MEDS: JEVITY 1.2 1000 ML LIQUID GT PRN ×2 (04:16→21:53)
[2019-11-28] MEDS: PANTOPRAZOLE ORAL SUSPENSION 40 MG SUSPDR.PKT GT SCH (05:47)
[2019-11-28] MEDS: VALPROIC ACID 250 MG/5 ML LIQUID UDC GT SCH ×2 (05:47→13:37)
[2019-11-28 07:37] VITALS: BP 126/84
[2019-11-28] MEDS: NUTRISOURCE FIBER 4 GM PACKET GT SCH (08:59)
[2019-11-28] MEDS: GEMFIBROZIL 600 MG TABLET PO SCH ×2 (08:59→21:52)
[2019-11-28] MEDS: PHENOBARBITAL 32.4 MG TABLET GT SCH ×2 (08:59→21:52)
[2019-11-28] MEDS: COD LIVER OIL/ZINC OXIDE OINT 113 GM TUBE TP SCH ×2 (08:59→21:53)
[2019-11-28] MEDS: Z GUARD REMEDY PASTE TP SCH ×2 (08:59→21:53)
[2019-11-28] MEDS: KETOCONAZOLE 2% CREAM 30 GM TUBE TP SCH ×2 (08:59→17:18)
[2019-11-28] MEDS: BACLOFEN 20 MG TABLET GT SCH ×3 (08:59→21:52)
[2019-11-28] MEDS: ACIDOPHILUS/BULGARICUS CHEW TAB PO SCH ×2 (08:59→21:52)
[2019-11-28] MEDS: HYDROGEN PEROXIDE 3% 118 ML BOTTLE TP SCH ×2 (09:00→21:53)
--- NOTE | 2019-11-28 11:57 | NUR ---
10:55am: TOMY received a call from patient's mother Sade. TOMY checked in with Sade to see how she was doing, and Sade stated she was doing well. Sade's tone of voice was pleasant, and Sade was receptive to speaking with this SW. Sade expressed not having any concerns at this time. TOMY then asked to speak with the charge nurse for today, Raphael. TOMY transferred the call to LUCAS Lmi.
[2019-11-28] MEDS: OMEGA-3 FATTY ACIDS/FISH OIL CAPSULE GT SCH (21:52)
[2019-11-28] MEDS: VALPROIC ACID 250 MG/5 ML LIQUID UDC PO SCH (21:53)
[2019-11-28 22:21] VITALS: BP 120/76
[2019-11-29] MEDS: ALBUTEROL SULFATE 1.25 MG/3 ML NEBU NEB SCH ×4 (02:25→20:00)
[2019-11-29] MEDS: IPRATROPIUM BROMIDE 0.5 MG/2.5 ML NEBU NEB SCH ×4 (02:25→20:00)
[2019-11-29] MEDS: PANTOPRAZOLE ORAL SUSPENSION 40 MG SUSPDR.PKT GT SCH (06:12)
[2019-11-29] MEDS: VALPROIC ACID 250 MG/5 ML LIQUID UDC GT SCH ×2 (06:12→14:50)
[2019-11-29] MEDS: HYDROGEN PEROXIDE 3% 118 ML BOTTLE TP SCH ×2 (07:14→21:35)
[2019-11-29 07:50] VITALS: BP 96/66
[2019-11-29] MEDS: PHENOBARBITAL 32.4 MG TABLET GT SCH ×2 (08:34→21:47)
[2019-11-29] MEDS: GEMFIBROZIL 600 MG TABLET PO SCH ×2 (08:34→21:47)
[2019-11-29] MEDS: BACLOFEN 20 MG TABLET GT SCH ×3 (08:34→21:47)
[2019-11-29] MEDS: ACIDOPHILUS/BULGARICUS CHEW TAB PO SCH ×2 (08:34→21:47)
[2019-11-29] MEDS: NUTRISOURCE FIBER 4 GM PACKET GT SCH (08:34)
[2019-11-29] MEDS: COD LIVER OIL/ZINC OXIDE OINT 113 GM TUBE TP SCH ×2 (08:35→21:47)
[2019-11-29] MEDS: Z GUARD REMEDY PASTE TP SCH ×2 (08:35→21:47)
[2019-11-29] MEDS: KETOCONAZOLE 2% CREAM 30 GM TUBE TP SCH ×2 (08:35→16:18)
[2019-11-29] MEDS: JEVITY 1.2 1000 ML LIQUID GT PRN (15:29)
[2019-11-29] MEDS ORDERED: PHENOBARBITAL 32.4 MG TABLET PO ONE ×2 (21:00)
[2019-11-29] MEDS: VALPROIC ACID 250 MG/5 ML LIQUID UDC PO SCH (21:47)
[2019-11-29] MEDS: OMEGA-3 FATTY ACIDS/FISH OIL CAPSULE GT SCH (21:47)
[2019-11-29 22:30] VITALS: BP 120/76
[2019-11-29 22:44] VITALS: BP 125/82
[2019-11-30] MEDS: IPRATROPIUM BROMIDE 0.5 MG/2.5 ML NEBU NEB SCH ×4 (02:00→19:14)
[2019-11-30] MEDS: ALBUTEROL SULFATE 1.25 MG/3 ML NEBU NEB SCH ×4 (02:00→19:14)
[2019-11-30] MEDS: VALPROIC ACID 250 MG/5 ML LIQUID UDC GT SCH ×2 (05:52→13:48)
[2019-11-30] MEDS: PANTOPRAZOLE ORAL SUSPENSION 40 MG SUSPDR.PKT GT SCH (05:52)
[2019-11-30 08:01] VITALS: BP 113/68
[2019-11-30] MEDS: ACIDOPHILUS/BULGARICUS CHEW TAB PO SCH ×2 (08:28→21:00)
[2019-11-30] MEDS: GEMFIBROZIL 600 MG TABLET PO SCH ×2 (08:28→21:00)
[2019-11-30] MEDS: KETOCONAZOLE 2% CREAM 30 GM TUBE TP SCH ×2 (08:28→17:15)
[2019-11-30] MEDS: Z GUARD REMEDY PASTE TP SCH ×2 (08:28→21:00)
[2019-11-30] MEDS: PHENOBARBITAL 32.4 MG TABLET GT SCH ×2 (08:28→21:00)
[2019-11-30] MEDS: NUTRISOURCE FIBER 4 GM PACKET GT SCH (08:28)
[2019-11-30] MEDS: COD LIVER OIL/ZINC OXIDE OINT 113 GM TUBE TP SCH ×2 (08:28→21:00)
[2019-11-30] MEDS: BACLOFEN 20 MG TABLET GT SCH ×3 (08:28→21:00)
[2019-11-30] MEDS: JEVITY 1.2 1000 ML LIQUID GT PRN (08:47)
[2019-11-30] MEDS ORDERED: PHENOBARBITAL 32.4 MG TABLET PO ONE ×4 (09:00→21:00)
[2019-11-30] MEDS: HYDROGEN PEROXIDE 3% 118 ML BOTTLE TP SCH ×2 (09:10→21:12)
[2019-11-30] MEDS: OMEGA-3 FATTY ACIDS/FISH OIL CAPSULE GT SCH (21:00)
[2019-11-30] MEDS: VALPROIC ACID 250 MG/5 ML LIQUID UDC PO SCH (22:27)
[2019-11-30 22:34] VITALS: BP 104/63
[2019-12-01] MEDS: ALBUTEROL SULFATE 1.25 MG/3 ML NEBU NEB SCH ×4 (00:45→19:13)
[2019-12-01] MEDS: IPRATROPIUM BROMIDE 0.5 MG/2.5 ML NEBU NEB SCH ×4 (00:45→19:13)
[2019-12-01] MEDS: JEVITY 1.2 1000 ML LIQUID GT PRN ×2 (02:04→22:50)
[2019-12-01] MEDS: VALPROIC ACID 250 MG/5 ML LIQUID UDC GT SCH ×2 (06:22→14:17)
[2019-12-01] MEDS: PANTOPRAZOLE ORAL SUSPENSION 40 MG SUSPDR.PKT GT SCH (06:22)
[2019-12-01 07:31] VITALS: BP 99/69
[2019-12-01] MEDS: HYDROGEN PEROXIDE 3% 118 ML BOTTLE TP SCH ×2 (08:38→21:21)
[2019-12-01] MEDS: GEMFIBROZIL 600 MG TABLET PO SCH ×2 (09:00→21:00)
[2019-12-01] MEDS: ACIDOPHILUS/BULGARICUS CHEW TAB PO SCH ×2 (09:00→21:00)
[2019-12-01] MEDS: NUTRISOURCE FIBER 4 GM PACKET GT SCH (09:00)
[2019-12-01] MEDS: BACLOFEN 20 MG TABLET GT SCH ×3 (09:00→21:00)
[2019-12-01] MEDS: Z GUARD REMEDY PASTE TP SCH ×2 (09:00→21:00)
[2019-12-01] MEDS: KETOCONAZOLE 2% CREAM 30 GM TUBE TP SCH ×2 (09:00→17:14)
[2019-12-01] MEDS ORDERED: PHENOBARBITAL 32.4 MG TABLET PO ONE ×4 (09:00→21:00)
[2019-12-01] MEDS: PHENOBARBITAL 32.4 MG TABLET GT SCH ×2 (09:00→21:00)
[2019-12-01 19:53] VITALS: BP 98/65
[2019-12-01] MEDS: OMEGA-3 FATTY ACIDS/FISH OIL CAPSULE GT SCH (21:00)
[2019-12-01] MEDS: VALPROIC ACID 250 MG/5 ML LIQUID UDC PO SCH (22:39)
[2019-12-02] MEDS: IPRATROPIUM BROMIDE 0.5 MG/2.5 ML NEBU NEB SCH ×4 (00:48→20:01)
[2019-12-02] MEDS: ALBUTEROL SULFATE 1.25 MG/3 ML NEBU NEB SCH ×4 (00:48→20:01)
[2019-12-02] MEDS: PANTOPRAZOLE ORAL SUSPENSION 40 MG SUSPDR.PKT GT SCH (05:57)
[2019-12-02] MEDS: VALPROIC ACID 250 MG/5 ML LIQUID UDC GT SCH ×2 (05:57→13:06)
[2019-12-02 08:03] VITALS: BP 104/73
[2019-12-02] MEDS: KETOCONAZOLE 2% CREAM 30 GM TUBE TP SCH ×2 (09:00→17:09)
[2019-12-02] MEDS: NUTRISOURCE FIBER 4 GM PACKET GT SCH (09:00)
[2019-12-02] MEDS: PHENOBARBITAL 32.4 MG TABLET GT SCH ×2 (09:00→20:11)
[2019-12-02] MEDS: GEMFIBROZIL 600 MG TABLET PO SCH ×2 (09:00→20:11)
[2019-12-02] MEDS: BACLOFEN 20 MG TABLET GT SCH ×3 (09:00→20:11)
[2019-12-02] MEDS: ACIDOPHILUS/BULGARICUS CHEW TAB PO SCH ×2 (09:00→20:11)
[2019-12-02] MEDS ORDERED: PHENOBARBITAL 32.4 MG TABLET PO ONE ×4 (09:00→21:00)
[2019-12-02] MEDS: Z GUARD REMEDY PASTE TP SCH ×2 (09:00→20:14)
[2019-12-02] MEDS: HYDROGEN PEROXIDE 3% 118 ML BOTTLE TP SCH ×2 (09:29→21:17)
--- NOTE | 2019-12-02 14:46 | NUR ---
INTERDISCIPLINARY PLAN OF CARE CONFERENCE was held today. Patient's mother was not available to participate in the meeting. Dr. Bowser and the Interdisciplinary Team reviewed the current plan of care in detail. RN reported on patient's medical condition. No major changes in condition were reported. See RN IDT conference notes. See also all other disciplines IDT notes and physician's progress notes for additional details.
--- NOTE | 2019-12-02 14:47 | NUR ---
Pharmacy Update from Today's 12/02/19 IDT Meeting: Note: Patient was transferred to CCU 08/31-09/11 d/t fever, sepsis, hypotension requiring pressors and was found with aspiration PNA and UTI. Pt was stabilized, treated with appropriate antibiotics and readmitted to SA to finish abx courses. VS: Temp 97.1 BP 104/73 HR 86 LABS: (from 10/14/19, no new labs) Wbc 5.9H/H 13/38.9Plt 223 Na 138K 4.4Cl 102CO2 33BUN/SCr 11/0.3 BS 119Ca 9.3 MEDICATION USE REVIEWED: > Pt not on any anti-psych medications > Pt on Phenobarbital 64.8mg q12hr. Last level on 09/15/19 was 34.2 (15-39) > Pt on Valproic acid 1000mg qhs and 500mg qam and 1400. Last level on 09/15/19 was 65 (50-100). Within range, no reported seizure activity noted > Previously on lovenox, d/c'd in CCU from last transfer in 09/11 d/t low plt concerns. Remains off DVT prophylaxis per MD PRN MED USAGE: (October) Tylenol for pain/temp used x0 Artificial tears PRN used x2 NEW/OTHER ORDERS NOTED: > Covid test 11/18 negative Pt was reviewed and discussed in detail with no medication issues noted per team. No further recommendation per Rx as pt remains stable on current regimen. Will continue to follow.
[2019-12-02 19:52] VITALS: BP 104/76
[2019-12-02] MEDS: JEVITY 1.2 1000 ML LIQUID GT PRN (20:07)
[2019-12-02] MEDS: OMEGA-3 FATTY ACIDS/FISH OIL CAPSULE GT SCH (20:11)
[2019-12-02] MEDS: POLYVINYL ALCOHOL OPHT DROPS 15 ML BOTTLE EACHEYE PRN (20:22)
[2019-12-02] MEDS: VALPROIC ACID 250 MG/5 ML LIQUID UDC PO SCH (22:31)
[2019-12-03] MEDS: ALBUTEROL SULFATE 1.25 MG/3 ML NEBU NEB SCH ×4 (01:49→19:31)
[2019-12-03] MEDS: IPRATROPIUM BROMIDE 0.5 MG/2.5 ML NEBU NEB SCH ×4 (01:49→19:31)
[2019-12-03] MEDS: VALPROIC ACID 250 MG/5 ML LIQUID UDC GT SCH ×2 (06:03→14:13)
[2019-12-03] MEDS: PANTOPRAZOLE ORAL SUSPENSION 40 MG SUSPDR.PKT GT SCH (06:03)
[2019-12-03 07:56] VITALS: BP 115/77
[2019-12-03] MEDS: PHENOBARBITAL 32.4 MG TABLET GT SCH ×2 (09:00→20:13)
[2019-12-03] MEDS: KETOCONAZOLE 2% CREAM 30 GM TUBE TP SCH ×2 (09:00→17:11)
[2019-12-03] MEDS: NUTRISOURCE FIBER 4 GM PACKET GT SCH (09:00)
[2019-12-03] MEDS: BACLOFEN 20 MG TABLET GT SCH ×3 (09:00→20:13)
[2019-12-03] MEDS: Z GUARD REMEDY PASTE TP SCH ×2 (09:00→20:13)
[2019-12-03] MEDS: GEMFIBROZIL 600 MG TABLET PO SCH (09:00)
[2019-12-03] MEDS: ACIDOPHILUS/BULGARICUS CHEW TAB PO SCH ×2 (09:00→20:13)
[2019-12-03] MEDS ORDERED: PHENOBARBITAL 32.4 MG TABLET PO ONE ×4 (09:00→21:00)
[2019-12-03] MEDS: HYDROGEN PEROXIDE 3% 118 ML BOTTLE TP SCH ×2 (09:06→21:16)
[2019-12-03] MEDS: JEVITY 1.2 1000 ML LIQUID GT PRN (14:55)
[2019-12-03 19:53] VITALS: BP 113/74
[2019-12-03] MEDS: OMEGA-3 FATTY ACIDS/FISH OIL CAPSULE GT SCH (20:13)
[2019-12-03] MEDS: GEMFIBROZIL 600 MG TABLET GT SCH (20:13)
[2019-12-03] MEDS: POLYVINYL ALCOHOL OPHT DROPS 15 ML BOTTLE EACHEYE PRN (20:14)
[2019-12-03] MEDS: VALPROIC ACID 250 MG/5 ML LIQUID UDC PO SCH (22:00)
[2019-12-04] MEDS: ALBUTEROL SULFATE 1.25 MG/3 ML NEBU NEB SCH ×4 (01:08→19:11)
[2019-12-04] MEDS: IPRATROPIUM BROMIDE 0.5 MG/2.5 ML NEBU NEB SCH ×4 (01:08→19:11)
[2019-12-04] MEDS: PANTOPRAZOLE ORAL SUSPENSION 40 MG SUSPDR.PKT GT SCH (06:14)
[2019-12-04] MEDS: VALPROIC ACID 250 MG/5 ML LIQUID UDC GT SCH ×2 (06:14→13:43)
[2019-12-04 07:47] VITALS: BP 125/88
[2019-12-04] MEDS ORDERED: PHENOBARBITAL 32.4 MG TABLET PO ONE ×4 (09:00→21:00)
[2019-12-04] MEDS: JEVITY 1.2 1000 ML LIQUID GT PRN (09:08)
[2019-12-04] MEDS: BACLOFEN 20 MG TABLET GT SCH ×3 (09:08→20:20)
[2019-12-04] MEDS: GEMFIBROZIL 600 MG TABLET GT SCH ×2 (09:08→20:20)
[2019-12-04] MEDS: NUTRISOURCE FIBER 4 GM PACKET GT SCH (09:10)
[2019-12-04] MEDS: ACIDOPHILUS/BULGARICUS CHEW TAB PO SCH ×2 (09:10→20:20)
[2019-12-04] MEDS: PHENOBARBITAL 32.4 MG TABLET GT SCH ×2 (09:10→20:20)
[2019-12-04] MEDS: KETOCONAZOLE 2% CREAM 30 GM TUBE TP SCH ×2 (09:11→17:33)
[2019-12-04] MEDS: Z GUARD REMEDY PASTE TP SCH ×2 (09:11→20:20)
[2019-12-04] MEDS: HYDROGEN PEROXIDE 3% 118 ML BOTTLE TP SCH ×2 (09:40→21:29)
[2019-12-04 20:00] VITALS: BP 131/73
[2019-12-04] MEDS: OMEGA-3 FATTY ACIDS/FISH OIL CAPSULE GT SCH (20:19)
[2019-12-04] MEDS: VALPROIC ACID 250 MG/5 ML LIQUID UDC PO SCH (22:21)
[2019-12-05] MEDS: IPRATROPIUM BROMIDE 0.5 MG/2.5 ML NEBU NEB SCH ×4 (00:48→20:05)
[2019-12-05] MEDS: ALBUTEROL SULFATE 1.25 MG/3 ML NEBU NEB SCH ×4 (00:48→20:05)
[2019-12-05] MEDS: JEVITY 1.2 1000 ML LIQUID GT PRN ×2 (04:50→21:54)
[2019-12-05] MEDS: PANTOPRAZOLE ORAL SUSPENSION 40 MG SUSPDR.PKT GT SCH (06:20)
[2019-12-05] MEDS: VALPROIC ACID 250 MG/5 ML LIQUID UDC GT SCH ×2 (06:20→14:11)
[2019-12-05 07:46] VITALS: BP 97/64
[2019-12-05] MEDS: Z GUARD REMEDY PASTE TP SCH ×2 (08:29→20:54)
[2019-12-05] MEDS: KETOCONAZOLE 2% CREAM 30 GM TUBE TP SCH ×2 (08:29→16:43)
[2019-12-05] MEDS: BACLOFEN 20 MG TABLET GT SCH ×3 (08:29→20:54)
[2019-12-05] MEDS: ACIDOPHILUS/BULGARICUS CHEW TAB PO SCH ×2 (08:29→20:54)
[2019-12-05] MEDS: NUTRISOURCE FIBER 4 GM PACKET GT SCH (08:29)
[2019-12-05] MEDS: GEMFIBROZIL 600 MG TABLET GT SCH ×2 (08:29→20:54)
[2019-12-05] MEDS: PHENOBARBITAL 32.4 MG TABLET GT SCH ×2 (08:29→20:54)
[2019-12-05] MEDS ORDERED: PHENOBARBITAL 32.4 MG TABLET PO ONE ×4 (09:00→21:00)
[2019-12-05] MEDS: HYDROGEN PEROXIDE 3% 118 ML BOTTLE TP SCH ×2 (09:00→21:34)
--- NOTE | 2019-12-05 09:52 | NUR ---
DR. PUTNAM WAS CALLED AND MESSAGE LEFT RE:ENDORSEMENT TO F/U FRON NOC SHIFT THAT F/C HAD TO BE CHANGED D/T BALLOON BROKE AND SIZE # 18 WAS PLACED INSTEAD .
--- NOTE | 2019-12-05 10:07 | NUR ---
DR. PUTNAM (UROLOGIST) CALLED BACK AND AWARE OF F/C CHANGE TO # 18 AND WITH NEW ORDER CARRIED OUT TO CHANGE IT PRN IF DISLODGED OR MALFUNCTIONING.
[2019-12-05 19:57] VITALS: BP 117/81
[2019-12-05] MEDS: OMEGA-3 FATTY ACIDS/FISH OIL CAPSULE GT SCH (20:54)
[2019-12-05] MEDS: VALPROIC ACID 250 MG/5 ML LIQUID UDC PO SCH (21:20)
[2019-12-06] MEDS: IPRATROPIUM BROMIDE 0.5 MG/2.5 ML NEBU NEB SCH ×4 (01:42→19:57)
[2019-12-06] MEDS: ALBUTEROL SULFATE 1.25 MG/3 ML NEBU NEB SCH ×4 (01:42→19:57)
[2019-12-06] MEDS: PANTOPRAZOLE ORAL SUSPENSION 40 MG SUSPDR.PKT GT SCH (05:55)
[2019-12-06] MEDS: VALPROIC ACID 250 MG/5 ML LIQUID UDC GT SCH ×2 (05:55→13:07)
[2019-12-06 07:41] VITALS: BP 104/64
[2019-12-06] MEDS: GEMFIBROZIL 600 MG TABLET GT SCH ×2 (08:41→21:04)
[2019-12-06] MEDS: PHENOBARBITAL 32.4 MG TABLET GT SCH ×2 (08:41→21:04)
[2019-12-06] MEDS: ACIDOPHILUS/BULGARICUS CHEW TAB PO SCH ×2 (08:41→21:04)
[2019-12-06] MEDS: NUTRISOURCE FIBER 4 GM PACKET GT SCH (08:41)
[2019-12-06] MEDS: BACLOFEN 20 MG TABLET GT SCH ×3 (08:41→21:04)
[2019-12-06] MEDS: Z GUARD REMEDY PASTE TP SCH ×2 (08:50→21:04)
[2019-12-06] MEDS: KETOCONAZOLE 2% CREAM 30 GM TUBE TP SCH ×2 (08:50→17:53)
[2019-12-06] MEDS ORDERED: PHENOBARBITAL 32.4 MG TABLET PO ONE ×4 (09:00→21:00)
[2019-12-06] MEDS: HYDROGEN PEROXIDE 3% 118 ML BOTTLE TP SCH ×2 (09:19→21:04)
--- NOTE | 2019-12-06 09:46 | NUR ---
SEEN AND EXAMINED BY DR. VALLADARES AND WITH NNO.
[2019-12-06] MEDS: JEVITY 1.2 1000 ML LIQUID GT PRN (12:55)
[2019-12-06 20:00] VITALS: BP 112/75
[2019-12-06] MEDS: VALPROIC ACID 250 MG/5 ML LIQUID UDC PO SCH (21:04)
[2019-12-06] MEDS: OMEGA-3 FATTY ACIDS/FISH OIL CAPSULE GT SCH (21:04)
[2019-12-07] MEDS: IPRATROPIUM BROMIDE 0.5 MG/2.5 ML NEBU NEB SCH ×4 (01:37→20:23)
[2019-12-07] MEDS: ALBUTEROL SULFATE 1.25 MG/3 ML NEBU NEB SCH ×4 (01:37→20:23)
[2019-12-07] MEDS: JEVITY 1.2 1000 ML LIQUID GT PRN ×2 (01:49→22:28)
[2019-12-07] MEDS: VALPROIC ACID 250 MG/5 ML LIQUID UDC GT SCH ×2 (05:10→13:38)
[2019-12-07] MEDS: PANTOPRAZOLE ORAL SUSPENSION 40 MG SUSPDR.PKT GT SCH (05:10)
[2019-12-07 08:56] VITALS: BP 98/69
[2019-12-07] MEDS: KETOCONAZOLE 2% CREAM 30 GM TUBE TP SCH ×2 (09:39→17:59)
[2019-12-07] MEDS: BACLOFEN 20 MG TABLET GT SCH ×3 (09:39→21:22)
[2019-12-07] MEDS: ACIDOPHILUS/BULGARICUS CHEW TAB PO SCH ×2 (09:39→21:22)
[2019-12-07] MEDS: NUTRISOURCE FIBER 4 GM PACKET GT SCH (09:39)
[2019-12-07] MEDS: PHENOBARBITAL 32.4 MG TABLET GT SCH ×2 (09:39→21:22)
[2019-12-07] MEDS: GEMFIBROZIL 600 MG TABLET GT SCH ×2 (09:39→21:22)
[2019-12-07] MEDS: Z GUARD REMEDY PASTE TP SCH ×2 (09:40→21:23)
[2019-12-07] MEDS: HYDROGEN PEROXIDE 3% 118 ML BOTTLE TP SCH ×2 (09:50→21:35)
[2019-12-07 20:15] VITALS: BP 109/75
[2019-12-07] MEDS: OMEGA-3 FATTY ACIDS/FISH OIL CAPSULE GT SCH (21:22)
[2019-12-07] MEDS: VALPROIC ACID 250 MG/5 ML LIQUID UDC PO SCH (21:23)
[2019-12-08] MEDS: IPRATROPIUM BROMIDE 0.5 MG/2.5 ML NEBU NEB SCH ×4 (01:57→19:47)
[2019-12-08] MEDS: ALBUTEROL SULFATE 1.25 MG/3 ML NEBU NEB SCH ×4 (01:57→19:47)
[2019-12-08] MEDS: PANTOPRAZOLE ORAL SUSPENSION 40 MG SUSPDR.PKT GT SCH (05:33)
[2019-12-08] MEDS: VALPROIC ACID 250 MG/5 ML LIQUID UDC GT SCH ×2 (05:33→14:00)
[2019-12-08 07:48] VITALS: BP 117/81
[2019-12-08] MEDS: ACIDOPHILUS/BULGARICUS CHEW TAB PO SCH ×2 (08:36→21:49)
[2019-12-08] MEDS: PHENOBARBITAL 32.4 MG TABLET GT SCH ×2 (08:36→21:49)
[2019-12-08] MEDS: KETOCONAZOLE 2% CREAM 30 GM TUBE TP SCH ×2 (08:36→17:56)
[2019-12-08] MEDS: GEMFIBROZIL 600 MG TABLET GT SCH ×2 (08:36→21:49)
[2019-12-08] MEDS: NUTRISOURCE FIBER 4 GM PACKET GT SCH (08:36)
[2019-12-08] MEDS: Z GUARD REMEDY PASTE TP SCH ×2 (08:36→21:50)
[2019-12-08] MEDS: BACLOFEN 20 MG TABLET GT SCH ×3 (08:36→21:49)
[2019-12-08] MEDS: HYDROGEN PEROXIDE 3% 118 ML BOTTLE TP SCH ×2 (09:40→21:35)
--- NOTE | 2019-12-08 17:48 | NUR ---
SEEN BY YOLANDA Grider AND WITH NNO.
[2019-12-08] MEDS: JEVITY 1.2 1000 ML LIQUID GT PRN (17:56)
[2019-12-08 19:56] VITALS: BP 106/58
[2019-12-08] MEDS: OMEGA-3 FATTY ACIDS/FISH OIL CAPSULE GT SCH (21:46)
[2019-12-08] MEDS: VALPROIC ACID 250 MG/5 ML LIQUID UDC PO SCH (21:50)
[2019-12-09] MEDS: ALBUTEROL SULFATE 1.25 MG/3 ML NEBU NEB SCH ×4 (01:48→19:18)
[2019-12-09] MEDS: IPRATROPIUM BROMIDE 0.5 MG/2.5 ML NEBU NEB SCH ×4 (01:48→19:17)
[2019-12-09] MEDS: VALPROIC ACID 250 MG/5 ML LIQUID UDC GT SCH ×2 (05:20→13:51)
[2019-12-09] MEDS: PANTOPRAZOLE ORAL SUSPENSION 40 MG SUSPDR.PKT GT SCH (05:20)
[2019-12-09 07:52] VITALS: BP 112/78
[2019-12-09] MEDS: HYDROGEN PEROXIDE 3% 118 ML BOTTLE TP SCH ×2 (09:00→21:10)
[2019-12-09] MEDS: NUTRISOURCE FIBER 4 GM PACKET GT SCH (09:03)
[2019-12-09] MEDS: ACIDOPHILUS/BULGARICUS CHEW TAB PO SCH ×2 (09:03→20:17)
[2019-12-09] MEDS: GEMFIBROZIL 600 MG TABLET GT SCH ×2 (09:03→20:16)
[2019-12-09] MEDS: Z GUARD REMEDY PASTE TP SCH ×2 (09:03→20:17)
[2019-12-09] MEDS: BACLOFEN 20 MG TABLET GT SCH ×3 (09:03→20:16)
[2019-12-09] MEDS: KETOCONAZOLE 2% CREAM 30 GM TUBE TP SCH ×2 (09:03→16:56)
[2019-12-09] MEDS: PHENOBARBITAL 32.4 MG TABLET GT SCH ×2 (09:03→20:16)
[2019-12-09] MEDS: JEVITY 1.2 1000 ML LIQUID GT PRN (17:07)
[2019-12-09 20:13] VITALS: BP 102/67
[2019-12-09] MEDS: OMEGA-3 FATTY ACIDS/FISH OIL CAPSULE GT SCH (20:16)
[2019-12-09] MEDS ORDERED: PHENOBARBITAL 32.4 MG TABLET PO ONE ×2 (21:00)
[2019-12-09] MEDS: VALPROIC ACID 250 MG/5 ML LIQUID UDC PO SCH (22:21)
[2019-12-10] MEDS: ALBUTEROL SULFATE 1.25 MG/3 ML NEBU NEB SCH ×4 (00:45→19:25)
[2019-12-10] MEDS: IPRATROPIUM BROMIDE 0.5 MG/2.5 ML NEBU NEB SCH ×4 (00:45→19:25)
[2019-12-10] MEDS: JEVITY 1.2 1000 ML LIQUID GT PRN (03:36)
[2019-12-10] MEDS: VALPROIC ACID 250 MG/5 ML LIQUID UDC GT SCH ×2 (06:16→13:13)
[2019-12-10] MEDS: PANTOPRAZOLE ORAL SUSPENSION 40 MG SUSPDR.PKT GT SCH (06:16)
[2019-12-10] MEDS: HYDROGEN PEROXIDE 3% 118 ML BOTTLE TP SCH ×2 (07:27→21:01)
[2019-12-10 07:35] VITALS: BP 101/53
[2019-12-10] MEDS: BACLOFEN 20 MG TABLET GT SCH ×3 (08:46→20:02)
[2019-12-10] MEDS: GEMFIBROZIL 600 MG TABLET GT SCH ×2 (08:46→20:08)
[2019-12-10] MEDS: ACIDOPHILUS/BULGARICUS CHEW TAB PO SCH ×2 (08:46→20:09)
[2019-12-10] MEDS: Z GUARD REMEDY PASTE TP SCH ×2 (08:46→20:10)
[2019-12-10] MEDS: PHENOBARBITAL 32.4 MG TABLET GT SCH ×2 (08:46→20:08)
[2019-12-10] MEDS: KETOCONAZOLE 2% CREAM 30 GM TUBE TP SCH ×2 (08:46→17:52)
[2019-12-10] MEDS: NUTRISOURCE FIBER 4 GM PACKET GT SCH (08:46)
[2019-12-10] MEDS ORDERED: PHENOBARBITAL 32.4 MG TABLET PO ONE ×4 (09:00→21:00)
[2019-12-10] MEDS: OMEGA-3 FATTY ACIDS/FISH OIL CAPSULE GT SCH (20:02)
[2019-12-10 20:11] VITALS: BP 116/67
[2019-12-10] MEDS: VALPROIC ACID 250 MG/5 ML LIQUID UDC PO SCH (22:24)
[2019-12-11] MEDS: JEVITY 1.2 1000 ML LIQUID GT PRN
[2019-12-11] MEDS: IPRATROPIUM BROMIDE 0.5 MG/2.5 ML NEBU NEB SCH ×4 (00:51→19:25)
[2019-12-11] MEDS: ALBUTEROL SULFATE 1.25 MG/3 ML NEBU NEB SCH ×4 (00:51→19:25)
[2019-12-11] MEDS: PANTOPRAZOLE ORAL SUSPENSION 40 MG SUSPDR.PKT GT SCH (05:25)
[2019-12-11] MEDS: VALPROIC ACID 250 MG/5 ML LIQUID UDC GT SCH ×2 (05:25→13:05)
[2019-12-11 07:25] VITALS: BP 96/61
[2019-12-11] MEDS: PHENOBARBITAL 32.4 MG TABLET GT SCH ×3 (08:01→20:02)
[2019-12-11] MEDS: GEMFIBROZIL 600 MG TABLET GT SCH ×3 (08:01→20:02)
[2019-12-11] MEDS: BACLOFEN 20 MG TABLET GT SCH ×4 (08:01→20:02)
[2019-12-11] MEDS: KETOCONAZOLE 2% CREAM 30 GM TUBE TP SCH ×2 (08:02→16:18)
[2019-12-11] MEDS: ACIDOPHILUS/BULGARICUS CHEW TAB PO SCH ×3 (08:02→20:03)
[2019-12-11] MEDS: Z GUARD REMEDY PASTE TP SCH ×3 (08:02→20:04)
[2019-12-11] MEDS: NUTRISOURCE FIBER 4 GM PACKET GT SCH ×2 (08:03→08:18)
[2019-12-11] MEDS ORDERED: PHENOBARBITAL 32.4 MG TABLET PO ONE ×4 (09:00→21:00)
[2019-12-11] MEDS: HYDROGEN PEROXIDE 3% 118 ML BOTTLE TP SCH ×2 (09:40→21:57)
[2019-12-11 19:59] VITALS: BP 106/73
[2019-12-11] MEDS: OMEGA-3 FATTY ACIDS/FISH OIL CAPSULE GT SCH (20:02)
[2019-12-11] MEDS: VALPROIC ACID 250 MG/5 ML LIQUID UDC PO SCH (22:33)
[2019-12-12] MEDS: IPRATROPIUM BROMIDE 0.5 MG/2.5 ML NEBU NEB SCH ×4 (01:53→19:31)
[2019-12-12] MEDS: ALBUTEROL SULFATE 1.25 MG/3 ML NEBU NEB SCH ×4 (01:53→19:31)
[2019-12-12] MEDS: PANTOPRAZOLE ORAL SUSPENSION 40 MG SUSPDR.PKT GT SCH (06:14)
[2019-12-12] MEDS: VALPROIC ACID 250 MG/5 ML LIQUID UDC GT SCH ×2 (06:14→13:24)
[2019-12-12 07:40] VITALS: BP 104/69
[2019-12-12] MEDS: HYDROGEN PEROXIDE 3% 118 ML BOTTLE TP SCH ×2 (07:40→21:07)
[2019-12-12] MEDS: BACLOFEN 20 MG TABLET GT SCH ×3 (08:57→21:53)
[2019-12-12] MEDS: GEMFIBROZIL 600 MG TABLET GT SCH ×2 (08:57→21:53)
[2019-12-12] MEDS: PHENOBARBITAL 32.4 MG TABLET GT SCH ×2 (08:57→21:53)
[2019-12-12] MEDS: Z GUARD REMEDY PASTE TP SCH ×2 (08:57→21:53)
[2019-12-12] MEDS: ACIDOPHILUS/BULGARICUS CHEW TAB PO SCH ×2 (08:57→21:53)
[2019-12-12] MEDS: NUTRISOURCE FIBER 4 GM PACKET GT SCH (08:57)
[2019-12-12] MEDS: KETOCONAZOLE 2% CREAM 30 GM TUBE TP SCH ×2 (08:57→17:42)
[2019-12-12] MEDS ORDERED: PHENOBARBITAL 32.4 MG TABLET PO ONE ×4 (09:00→21:00)
[2019-12-12] MEDS: JEVITY 1.2 1000 ML LIQUID GT PRN (12:15)
[2019-12-12] MEDS: VALPROIC ACID 250 MG/5 ML LIQUID UDC PO SCH (21:53)
[2019-12-12] MEDS: OMEGA-3 FATTY ACIDS/FISH OIL CAPSULE GT SCH (21:53)
[2019-12-12 22:11] VITALS: BP 108/70
[2019-12-13] MEDS: IPRATROPIUM BROMIDE 0.5 MG/2.5 ML NEBU NEB SCH ×4 (01:03→20:55)
[2019-12-13] MEDS: ALBUTEROL SULFATE 1.25 MG/3 ML NEBU NEB SCH ×4 (01:03→20:55)
[2019-12-13] MEDS: VALPROIC ACID 250 MG/5 ML LIQUID UDC GT SCH ×2 (05:47→14:13)
[2019-12-13] MEDS: PANTOPRAZOLE ORAL SUSPENSION 40 MG SUSPDR.PKT GT SCH (05:47)
[2019-12-13] MEDS: JEVITY 1.2 1000 ML LIQUID GT PRN ×2 (07:04→21:57)
[2019-12-13 07:55] VITALS: BP 91/55
[2019-12-13] MEDS: BACLOFEN 20 MG TABLET GT SCH ×3 (08:47→21:54)
[2019-12-13] MEDS: GEMFIBROZIL 600 MG TABLET GT SCH ×2 (08:48→21:54)
[2019-12-13] MEDS: ACIDOPHILUS/BULGARICUS CHEW TAB PO SCH ×2 (08:49→21:54)
[2019-12-13] MEDS: PHENOBARBITAL 32.4 MG TABLET GT SCH ×2 (08:49→21:54)
[2019-12-13] MEDS: NUTRISOURCE FIBER 4 GM PACKET GT SCH (08:49)
[2019-12-13] MEDS: HYDROGEN PEROXIDE 3% 118 ML BOTTLE TP SCH ×2 (09:00→21:00)
[2019-12-13] MEDS ORDERED: PHENOBARBITAL 32.4 MG TABLET PO ONE ×4 (09:00→21:00)
[2019-12-13] MEDS: KETOCONAZOLE 2% CREAM 30 GM TUBE TP SCH ×2 (09:45→17:23)
[2019-12-13] MEDS: Z GUARD REMEDY PASTE TP SCH ×2 (09:45→21:54)
[2019-12-13 20:56] VITALS: BP 122/80
[2019-12-13] MEDS: OMEGA-3 FATTY ACIDS/FISH OIL CAPSULE GT SCH (21:53)
[2019-12-13] MEDS: VALPROIC ACID 250 MG/5 ML LIQUID UDC PO SCH (21:54)
[2019-12-14] MEDS: IPRATROPIUM BROMIDE 0.5 MG/2.5 ML NEBU NEB SCH ×4 (01:04→20:01)
[2019-12-14] MEDS: ALBUTEROL SULFATE 1.25 MG/3 ML NEBU NEB SCH ×4 (01:04→20:01)
[2019-12-14] MEDS: VALPROIC ACID 250 MG/5 ML LIQUID UDC GT SCH ×2 (05:08→13:22)
[2019-12-14] MEDS: PANTOPRAZOLE ORAL SUSPENSION 40 MG SUSPDR.PKT GT SCH (05:08)
[2019-12-14 08:00] VITALS: BP 105/67
[2019-12-14] MEDS ORDERED: PHENOBARBITAL 32.4 MG TABLET PO ONE ×4 (09:00→21:00)
[2019-12-14] MEDS: BACLOFEN 20 MG TABLET GT SCH ×3 (09:11→21:00)
[2019-12-14] MEDS: KETOCONAZOLE 2% CREAM 30 GM TUBE TP SCH ×2 (09:11→17:46)
[2019-12-14] MEDS: ACIDOPHILUS/BULGARICUS CHEW TAB PO SCH ×2 (09:11→21:00)
[2019-12-14] MEDS: GEMFIBROZIL 600 MG TABLET GT SCH ×2 (09:11→21:00)
[2019-12-14] MEDS: PHENOBARBITAL 32.4 MG TABLET GT SCH ×2 (09:11→21:00)
[2019-12-14] MEDS: Z GUARD REMEDY PASTE TP SCH ×2 (09:11→21:00)
[2019-12-14] MEDS: NUTRISOURCE FIBER 4 GM PACKET GT SCH (09:11)
[2019-12-14] MEDS: HYDROGEN PEROXIDE 3% 118 ML BOTTLE TP SCH ×2 (09:40→21:55)
[2019-12-14 20:17] VITALS: BP 101/66
[2019-12-14] MEDS: OMEGA-3 FATTY ACIDS/FISH OIL CAPSULE GT SCH (21:58)
[2019-12-14] MEDS: VALPROIC ACID 250 MG/5 ML LIQUID UDC PO SCH (22:01)
[2019-12-15] MEDS: IPRATROPIUM BROMIDE 0.5 MG/2.5 ML NEBU NEB SCH ×4 (01:59→19:55)
[2019-12-15] MEDS: ALBUTEROL SULFATE 1.25 MG/3 ML NEBU NEB SCH ×4 (01:59→19:55)
[2019-12-15] MEDS: PANTOPRAZOLE ORAL SUSPENSION 40 MG SUSPDR.PKT GT SCH (05:17)
[2019-12-15] MEDS: VALPROIC ACID 250 MG/5 ML LIQUID UDC GT SCH ×2 (05:17→13:52)
[2019-12-15 07:50] VITALS: BP 109/77
[2019-12-15] MEDS: PHENOBARBITAL 32.4 MG TABLET GT SCH ×2 (08:23→21:39)
[2019-12-15] MEDS: BACLOFEN 20 MG TABLET GT SCH ×3 (08:23→21:39)
[2019-12-15] MEDS: ACIDOPHILUS/BULGARICUS CHEW TAB PO SCH ×2 (08:24→21:39)
[2019-12-15] MEDS: KETOCONAZOLE 2% CREAM 30 GM TUBE TP SCH ×2 (08:24→17:16)
[2019-12-15] MEDS: Z GUARD REMEDY PASTE TP SCH ×2 (08:24→21:39)
[2019-12-15] MEDS: GEMFIBROZIL 600 MG TABLET GT SCH ×2 (08:24→21:39)
[2019-12-15] MEDS: NUTRISOURCE FIBER 4 GM PACKET GT SCH (08:24)
[2019-12-15] MEDS ORDERED: PHENOBARBITAL 32.4 MG TABLET PO ONE ×4 (09:00→21:00)
[2019-12-15] MEDS: HYDROGEN PEROXIDE 3% 118 ML BOTTLE TP SCH ×2 (09:57→21:23)
[2019-12-15 19:59] VITALS: BP 116/76
[2019-12-15] MEDS: VALPROIC ACID 250 MG/5 ML LIQUID UDC PO SCH (21:39)
[2019-12-15] MEDS: OMEGA-3 FATTY ACIDS/FISH OIL CAPSULE GT SCH (21:39)
[2019-12-16] MEDS: IPRATROPIUM BROMIDE 0.5 MG/2.5 ML NEBU NEB SCH ×4 (01:40→19:48)
[2019-12-16] MEDS: ALBUTEROL SULFATE 1.25 MG/3 ML NEBU NEB SCH ×4 (01:40→19:48)
[2019-12-16] MEDS: VALPROIC ACID 250 MG/5 ML LIQUID UDC GT SCH ×2 (06:01→13:24)
[2019-12-16] MEDS: PANTOPRAZOLE ORAL SUSPENSION 40 MG SUSPDR.PKT GT SCH (06:01)
[2019-12-16 07:41] VITALS: BP 130/76
[2019-12-16] MEDS: GEMFIBROZIL 600 MG TABLET GT SCH ×2 (08:13→20:36)
[2019-12-16] MEDS: BACLOFEN 20 MG TABLET GT SCH ×3 (08:13→20:35)
[2019-12-16] MEDS: NUTRISOURCE FIBER 4 GM PACKET GT SCH (08:14)
[2019-12-16] MEDS: ACIDOPHILUS/BULGARICUS CHEW TAB PO SCH ×2 (08:14→20:36)
[2019-12-16] MEDS: PHENOBARBITAL 32.4 MG TABLET GT SCH ×2 (08:18→20:36)
[2019-12-16] MEDS: Z GUARD REMEDY PASTE TP SCH ×2 (08:29→20:37)
[2019-12-16] MEDS: KETOCONAZOLE 2% CREAM 30 GM TUBE TP SCH ×2 (08:29→16:56)
[2019-12-16] MEDS ORDERED: PHENOBARBITAL 32.4 MG TABLET PO ONE ×4 (09:00→21:00)
[2019-12-16] MEDS: HYDROGEN PEROXIDE 3% 118 ML BOTTLE TP SCH ×2 (09:06→21:22)
[2019-12-16] MEDS: JEVITY 1.2 1000 ML LIQUID GT PRN (19:09)
[2019-12-16 20:00] VITALS: BP 103/65
[2019-12-16] MEDS: OMEGA-3 FATTY ACIDS/FISH OIL CAPSULE GT SCH (20:35)
[2019-12-16] MEDS: VALPROIC ACID 250 MG/5 ML LIQUID UDC PO SCH (22:24)
[2019-12-17] MEDS: IPRATROPIUM BROMIDE 0.5 MG/2.5 ML NEBU NEB SCH ×4 (01:53→19:25)
[2019-12-17] MEDS: ALBUTEROL SULFATE 1.25 MG/3 ML NEBU NEB SCH ×4 (01:53→19:25)
[2019-12-17] MEDS: VALPROIC ACID 250 MG/5 ML LIQUID UDC GT SCH ×2 (05:00→13:38)
[2019-12-17] MEDS: PANTOPRAZOLE ORAL SUSPENSION 40 MG SUSPDR.PKT GT SCH (05:00)
[2019-12-17] MEDS: HYDROGEN PEROXIDE 3% 118 ML BOTTLE TP SCH ×2 (07:27→21:14)
[2019-12-17 07:48] VITALS: BP 99/59
[2019-12-17] MEDS: NUTRISOURCE FIBER 4 GM PACKET GT SCH (08:18)
[2019-12-17] MEDS: Z GUARD REMEDY PASTE TP SCH ×2 (08:18→20:56)
[2019-12-17] MEDS: ACIDOPHILUS/BULGARICUS CHEW TAB PO SCH ×2 (08:19→20:56)
[2019-12-17] MEDS: GEMFIBROZIL 600 MG TABLET GT SCH ×2 (08:20→20:56)
[2019-12-17] MEDS: BACLOFEN 20 MG TABLET GT SCH ×3 (08:22→20:56)
[2019-12-17] MEDS: PHENOBARBITAL 32.4 MG TABLET GT SCH ×2 (08:28→20:56)
[2019-12-17] MEDS: KETOCONAZOLE 2% CREAM 30 GM TUBE TP SCH ×2 (08:31→18:00)
[2019-12-17] MEDS ORDERED: PHENOBARBITAL 32.4 MG TABLET PO ONE ×4 (09:00→21:00)
[2019-12-17] MEDS: JEVITY 1.2 1000 ML LIQUID GT PRN (12:24)
--- NOTE | 2019-12-17 19:00 | NUR ---
Seen and examined by Dr Bowser with no new orders noted.
[2019-12-17 20:09] VITALS: BP 104/67
[2019-12-17] MEDS: OMEGA-3 FATTY ACIDS/FISH OIL CAPSULE GT SCH (20:56)
[2019-12-17] MEDS: VALPROIC ACID 250 MG/5 ML LIQUID UDC PO SCH (22:00)
[2019-12-18] MEDS: ALBUTEROL SULFATE 1.25 MG/3 ML NEBU NEB SCH ×4 (00:47→20:00)
[2019-12-18] MEDS: IPRATROPIUM BROMIDE 0.5 MG/2.5 ML NEBU NEB SCH ×4 (00:47→20:00)
[2019-12-18] MEDS: VALPROIC ACID 250 MG/5 ML LIQUID UDC GT SCH ×2 (06:00→14:36)
[2019-12-18] MEDS: PANTOPRAZOLE ORAL SUSPENSION 40 MG SUSPDR.PKT GT SCH (06:00)
[2019-12-18] MEDS: JEVITY 1.2 1000 ML LIQUID GT PRN (07:23)
[2019-12-18 07:38] VITALS: BP 113/69
[2019-12-18] MEDS: GEMFIBROZIL 600 MG TABLET GT SCH ×2 (08:32→21:56)
[2019-12-18] MEDS: Z GUARD REMEDY PASTE TP SCH ×2 (08:32→21:57)
[2019-12-18] MEDS: ACIDOPHILUS/BULGARICUS CHEW TAB PO SCH ×2 (08:32→21:57)
[2019-12-18] MEDS: PHENOBARBITAL 32.4 MG TABLET GT SCH ×2 (08:32→21:00)
[2019-12-18] MEDS: KETOCONAZOLE 2% CREAM 30 GM TUBE TP SCH ×2 (08:32→16:24)
[2019-12-18] MEDS: BACLOFEN 20 MG TABLET GT SCH ×3 (08:32→21:56)
[2019-12-18] MEDS: NUTRISOURCE FIBER 4 GM PACKET GT SCH (08:32)
[2019-12-18] MEDS ORDERED: PHENOBARBITAL 32.4 MG TABLET PO ONE ×4 (09:00→21:00)
[2019-12-18] MEDS: HYDROGEN PEROXIDE 3% 118 ML BOTTLE TP SCH ×2 (09:50→21:00)
[2019-12-18 20:00] VITALS: BP 96/70
[2019-12-18] MEDS: OMEGA-3 FATTY ACIDS/FISH OIL CAPSULE GT SCH (21:56)
[2019-12-18] MEDS: VALPROIC ACID 250 MG/5 ML LIQUID UDC PO SCH (21:57)
[2019-12-19] MEDS: IPRATROPIUM BROMIDE 0.5 MG/2.5 ML NEBU NEB SCH ×4 (01:35→18:59)
[2019-12-19] MEDS: ALBUTEROL SULFATE 1.25 MG/3 ML NEBU NEB SCH ×4 (01:35→18:59)
[2019-12-19] MEDS: PANTOPRAZOLE ORAL SUSPENSION 40 MG SUSPDR.PKT GT SCH (05:07)
[2019-12-19] MEDS: VALPROIC ACID 250 MG/5 ML LIQUID UDC GT SCH ×2 (05:07→14:48)
[2019-12-19 07:34] VITALS: BP 114/67
[2019-12-19] MEDS ORDERED: PHENOBARBITAL 32.4 MG TABLET PO ONE ×4 (09:00→21:00)
[2019-12-19] MEDS: BACLOFEN 20 MG TABLET GT SCH ×3 (09:24→20:53)
[2019-12-19] MEDS: GEMFIBROZIL 600 MG TABLET GT SCH ×2 (09:24→20:53)
[2019-12-19] MEDS: Z GUARD REMEDY PASTE TP SCH ×2 (09:25→20:53)
[2019-12-19] MEDS: ACIDOPHILUS/BULGARICUS CHEW TAB PO SCH ×2 (09:25→20:53)
[2019-12-19] MEDS: KETOCONAZOLE 2% CREAM 30 GM TUBE TP SCH ×2 (09:25→17:59)
[2019-12-19] MEDS: PHENOBARBITAL 32.4 MG TABLET GT SCH ×2 (09:25→20:53)
[2019-12-19] MEDS: NUTRISOURCE FIBER 4 GM PACKET GT SCH (09:25)
[2019-12-19] MEDS: HYDROGEN PEROXIDE 3% 118 ML BOTTLE TP SCH ×2 (09:40→18:59)
[2019-12-19] MEDS: JEVITY 1.2 1000 ML LIQUID GT PRN (14:48)
[2019-12-19 20:12] VITALS: BP 98/57
[2019-12-19] MEDS: OMEGA-3 FATTY ACIDS/FISH OIL CAPSULE GT SCH (20:53)
[2019-12-19] MEDS: VALPROIC ACID 250 MG/5 ML LIQUID UDC PO SCH (21:06)
[2019-12-20] MEDS: IPRATROPIUM BROMIDE 0.5 MG/2.5 ML NEBU NEB SCH ×4 (01:26→19:17)
[2019-12-20] MEDS: ALBUTEROL SULFATE 1.25 MG/3 ML NEBU NEB SCH ×4 (01:26→19:17)
[2019-12-20] MEDS: PANTOPRAZOLE ORAL SUSPENSION 40 MG SUSPDR.PKT GT SCH (06:14)
[2019-12-20] MEDS: VALPROIC ACID 250 MG/5 ML LIQUID UDC GT SCH ×2 (06:14→13:21)
[2019-12-20 07:29] VITALS: BP 113/64
[2019-12-20] MEDS: HYDROGEN PEROXIDE 3% 118 ML BOTTLE TP SCH ×2 (07:37→21:55)
[2019-12-20] MEDS ORDERED: PHENOBARBITAL 32.4 MG TABLET PO ONE ×4 (09:00→21:00)
[2019-12-20] MEDS: BACLOFEN 20 MG TABLET GT SCH ×3 (09:19→21:33)
[2019-12-20] MEDS: GEMFIBROZIL 600 MG TABLET GT SCH ×2 (09:19→21:33)
[2019-12-20] MEDS: Z GUARD REMEDY PASTE TP SCH ×2 (09:20→21:33)
[2019-12-20] MEDS: KETOCONAZOLE 2% CREAM 30 GM TUBE TP SCH ×2 (09:20→17:37)
[2019-12-20] MEDS: ACIDOPHILUS/BULGARICUS CHEW TAB PO SCH ×2 (09:20→21:33)
[2019-12-20] MEDS: NUTRISOURCE FIBER 4 GM PACKET GT SCH (09:20)
[2019-12-20] MEDS: PHENOBARBITAL 32.4 MG TABLET GT SCH ×2 (09:20→21:33)
[2019-12-20 20:19] VITALS: BP 138/74
[2019-12-20] MEDS: OMEGA-3 FATTY ACIDS/FISH OIL CAPSULE GT SCH (21:33)
[2019-12-20] MEDS: VALPROIC ACID 250 MG/5 ML LIQUID UDC PO SCH (21:34)
[2019-12-20] MEDS: POLYVINYL ALCOHOL OPHT DROPS 15 ML BOTTLE EACHEYE PRN (21:34)
[2019-12-21] MEDS: IPRATROPIUM BROMIDE 0.5 MG/2.5 ML NEBU NEB SCH ×4 (00:44→19:20)
[2019-12-21] MEDS: ALBUTEROL SULFATE 1.25 MG/3 ML NEBU NEB SCH ×4 (00:44→19:20)
[2019-12-21] MEDS: VALPROIC ACID 250 MG/5 ML LIQUID UDC GT SCH ×2 (05:50→14:02)
[2019-12-21] MEDS: PANTOPRAZOLE ORAL SUSPENSION 40 MG SUSPDR.PKT GT SCH (05:50)
[2019-12-21 08:05] VITALS: BP 101/67
[2019-12-21] MEDS: HYDROGEN PEROXIDE 3% 118 ML BOTTLE TP SCH ×2 (08:18→21:17)
[2019-12-21] MEDS: PHENOBARBITAL 32.4 MG TABLET GT SCH ×2 (08:27→21:00)
[2019-12-21] MEDS: ACIDOPHILUS/BULGARICUS CHEW TAB PO SCH ×2 (08:27→21:00)
[2019-12-21] MEDS: BACLOFEN 20 MG TABLET GT SCH ×3 (08:27→21:00)
[2019-12-21] MEDS: NUTRISOURCE FIBER 4 GM PACKET GT SCH (08:27)
[2019-12-21] MEDS: GEMFIBROZIL 600 MG TABLET GT SCH ×2 (08:27→21:00)
[2019-12-21] MEDS: Z GUARD REMEDY PASTE TP SCH ×2 (08:31→21:00)
[2019-12-21] MEDS: KETOCONAZOLE 2% CREAM 30 GM TUBE TP SCH ×2 (08:31→17:20)
[2019-12-21] MEDS ORDERED: PHENOBARBITAL 32.4 MG TABLET PO ONE ×4 (09:00→21:00)
[2019-12-21 19:48] VITALS: BP 102/62
[2019-12-21] MEDS: OMEGA-3 FATTY ACIDS/FISH OIL CAPSULE GT SCH (21:00)
[2019-12-21] MEDS: VALPROIC ACID 250 MG/5 ML LIQUID UDC PO SCH (22:41)
[2019-12-22] MEDS: IPRATROPIUM BROMIDE 0.5 MG/2.5 ML NEBU NEB SCH ×4 (00:49→19:20)
[2019-12-22] MEDS: ALBUTEROL SULFATE 1.25 MG/3 ML NEBU NEB SCH ×4 (00:49→19:20)
[2019-12-22] MEDS: PANTOPRAZOLE ORAL SUSPENSION 40 MG SUSPDR.PKT GT SCH (05:58)
[2019-12-22] MEDS: VALPROIC ACID 250 MG/5 ML LIQUID UDC GT SCH ×2 (05:58→13:25)
[2019-12-22 06:17] LABS: PHENOBARBITAL 36.4 ug/mL (15.0-39.0)
[2019-12-22 07:36] VITALS: BP 106/73
[2019-12-22] MEDS: HYDROGEN PEROXIDE 3% 118 ML BOTTLE TP SCH ×2 (09:00→21:04)
[2019-12-22] MEDS ORDERED: PHENOBARBITAL 32.4 MG TABLET PO ONE ×4 (09:00→21:00)
[2019-12-22] MEDS: BACLOFEN 20 MG TABLET GT SCH ×3 (09:41→21:00)
[2019-12-22] MEDS: GEMFIBROZIL 600 MG TABLET GT SCH ×2 (09:43→21:00)
[2019-12-22] MEDS: KETOCONAZOLE 2% CREAM 30 GM TUBE TP SCH ×2 (09:43→17:29)
[2019-12-22] MEDS: ACIDOPHILUS/BULGARICUS CHEW TAB PO SCH ×2 (09:43→21:00)
[2019-12-22] MEDS: PHENOBARBITAL 32.4 MG TABLET GT SCH ×2 (09:43→21:00)
[2019-12-22] MEDS: Z GUARD REMEDY PASTE TP SCH ×2 (09:43→21:00)
[2019-12-22] MEDS: NUTRISOURCE FIBER 4 GM PACKET GT SCH (09:43)
--- NOTE | 2019-12-22 17:17 | NUR ---
DR. PLAZA WAS CALLEDE RE:PHENOBARBITAL LEVEL(SEE RECORD)
--- NOTE | 2019-12-22 17:20 | NUR ---
CORRECTION DR. PLAZA WAS CALLED RE: VALPROIC ACID LEVEL 121,NOT PHENOBARBITAL LEVEL.
[2019-12-22 20:32] VITALS: BP 125/72
[2019-12-22] MEDS: OMEGA-3 FATTY ACIDS/FISH OIL CAPSULE GT SCH (21:00)
[2019-12-22] MEDS: VALPROIC ACID 250 MG/5 ML LIQUID UDC PO SCH (22:50)
[2019-12-23] MEDS: IPRATROPIUM BROMIDE 0.5 MG/2.5 ML NEBU NEB SCH ×4 (01:02→19:12)
[2019-12-23] MEDS: ALBUTEROL SULFATE 1.25 MG/3 ML NEBU NEB SCH ×4 (01:02→19:12)
[2019-12-23] MEDS: VALPROIC ACID 250 MG/5 ML LIQUID UDC GT SCH (06:22)
[2019-12-23] MEDS: PANTOPRAZOLE ORAL SUSPENSION 40 MG SUSPDR.PKT GT SCH (06:22)
[2019-12-23 07:26] VITALS: BP 113/73
[2019-12-23] MEDS: HYDROGEN PEROXIDE 3% 118 ML BOTTLE TP SCH ×2 (07:46→21:51)
[2019-12-23] MEDS: ACIDOPHILUS/BULGARICUS CHEW TAB PO SCH ×2 (08:55→20:31)
[2019-12-23] MEDS: PHENOBARBITAL 32.4 MG TABLET GT SCH ×2 (08:55→20:30)
[2019-12-23] MEDS: NUTRISOURCE FIBER 4 GM PACKET GT SCH (08:55)
[2019-12-23] MEDS: GEMFIBROZIL 600 MG TABLET GT SCH ×2 (08:55→20:30)
[2019-12-23] MEDS: BACLOFEN 20 MG TABLET GT SCH ×3 (08:55→20:30)
[2019-12-23] MEDS: KETOCONAZOLE 2% CREAM 30 GM TUBE TP SCH ×2 (08:56→17:00)
[2019-12-23] MEDS: Z GUARD REMEDY PASTE TP SCH ×2 (08:56→20:34)
[2019-12-23] MEDS ORDERED: PHENOBARBITAL 32.4 MG TABLET PO ONE ×4 (09:00→21:00)
--- NOTE | 2019-12-23 10:22 | NUR ---
DR. PLAZA CALLED BACK AND WITH NEW ORDERS CARRIED OUT.
--- NOTE | 2019-12-23 12:00 | NUR ---
SEEN BY YOLANDA Grider AND WITH NNO.
--- NOTE | 2019-12-23 15:54 | NUR ---
TOMY received a voicemail call from a gentleman who identified himself as patient's brother. This gentleman was asking for a call back from this SW, to discuss the visitation restrictions. TOMY is not aware of patient having a brother, and has never been in communication with the patient's brother. TOMY called patient's mother Sade [phone] to discuss this phone call, and to address any concerns. Sade was not available, and therefore TOMY left Sade a voicemail message, asking Sade to call this SW back.
[2019-12-23] MEDS: JEVITY 1.2 1000 ML LIQUID GT PRN (18:19)
[2019-12-23] MEDS: OMEGA-3 FATTY ACIDS/FISH OIL CAPSULE GT SCH (20:30)
[2019-12-23 20:48] VITALS: BP 109/82
[2019-12-24] MEDS: IPRATROPIUM BROMIDE 0.5 MG/2.5 ML NEBU NEB SCH ×4 (01:39→20:00)
[2019-12-24] MEDS: ALBUTEROL SULFATE 1.25 MG/3 ML NEBU NEB SCH ×4 (01:39→20:00)
[2019-12-24] MEDS: PANTOPRAZOLE ORAL SUSPENSION 40 MG SUSPDR.PKT GT SCH (06:34)
[2019-12-24] MEDS: GEMFIBROZIL 600 MG TABLET GT SCH ×2 (08:12→20:04)
[2019-12-24] MEDS: NUTRISOURCE FIBER 4 GM PACKET GT SCH (08:12)
[2019-12-24] MEDS: BACLOFEN 20 MG TABLET GT SCH ×3 (08:12→20:04)
[2019-12-24] MEDS: PHENOBARBITAL 32.4 MG TABLET GT SCH ×2 (08:13→20:04)
[2019-12-24] MEDS: ACIDOPHILUS/BULGARICUS CHEW TAB PO SCH ×2 (08:13→20:04)
[2019-12-24] MEDS: KETOCONAZOLE 2% CREAM 30 GM TUBE TP SCH ×2 (08:13→17:00)
[2019-12-24] MEDS: Z GUARD REMEDY PASTE TP SCH ×2 (08:13→20:05)
[2019-12-24] MEDS: HYDROGEN PEROXIDE 3% 118 ML BOTTLE TP SCH ×2 (08:44→21:24)
[2019-12-24] MEDS ORDERED: PHENOBARBITAL 32.4 MG TABLET PO ONE ×2 (09:00)
[2019-12-24] MEDS: JEVITY 1.2 1000 ML LIQUID GT PRN (12:45)
[2019-12-24] MEDS: VALPROIC ACID 250 MG/5 ML LIQUID UDC GT SCH ×2 (14:23→22:50)
--- NOTE | 2019-12-24 15:30 | NUR ---
Spoke to Dr Pena regarding the valproic acid result 56,with new orders noted and carried out.
[2019-12-24] MEDS: OMEGA-3 FATTY ACIDS/FISH OIL CAPSULE GT SCH (20:04)
[2019-12-24 20:24] VITALS: BP 128/67
[2019-12-25] MEDS: IPRATROPIUM BROMIDE 0.5 MG/2.5 ML NEBU NEB SCH ×4 (01:54→19:07)
[2019-12-25] MEDS: ALBUTEROL SULFATE 1.25 MG/3 ML NEBU NEB SCH ×4 (01:54→19:07)
[2019-12-25] MEDS: VALPROIC ACID 250 MG/5 ML LIQUID UDC GT SCH ×3 (06:24→22:00)
[2019-12-25] MEDS: PANTOPRAZOLE ORAL SUSPENSION 40 MG SUSPDR.PKT GT SCH (06:24)
[2019-12-25 07:35] VITALS: BP 107/64
[2019-12-25] MEDS: GEMFIBROZIL 600 MG TABLET GT SCH ×2 (08:57→20:02)
[2019-12-25] MEDS: PHENOBARBITAL 32.4 MG TABLET GT SCH ×2 (08:57→20:02)
[2019-12-25] MEDS: BACLOFEN 20 MG TABLET GT SCH ×3 (08:57→20:02)
[2019-12-25] MEDS: NUTRISOURCE FIBER 4 GM PACKET GT SCH (08:57)
[2019-12-25] MEDS: KETOCONAZOLE 2% CREAM 30 GM TUBE TP SCH ×2 (08:59→17:41)
[2019-12-25] MEDS: ACIDOPHILUS/BULGARICUS CHEW TAB PO SCH ×2 (08:59→20:02)
[2019-12-25] MEDS: HYDROGEN PEROXIDE 3% 118 ML BOTTLE TP SCH ×2 (09:00→19:07)
[2019-12-25] MEDS: Z GUARD REMEDY PASTE TP SCH ×2 (09:45→20:02)
[2019-12-25] MEDS: OMEGA-3 FATTY ACIDS/FISH OIL CAPSULE GT SCH (20:02)
[2019-12-25 20:04] VITALS: BP 121/76
[2019-12-26] MEDS: ALBUTEROL SULFATE 1.25 MG/3 ML NEBU NEB SCH ×4 (01:12→19:43)
[2019-12-26] MEDS: IPRATROPIUM BROMIDE 0.5 MG/2.5 ML NEBU NEB SCH ×4 (01:12→19:43)
[2019-12-26] MEDS: VALPROIC ACID 250 MG/5 ML LIQUID UDC GT SCH ×3 (06:07→21:00)
[2019-12-26] MEDS: PANTOPRAZOLE ORAL SUSPENSION 40 MG SUSPDR.PKT GT SCH (06:07)
[2019-12-26 07:20] VITALS: BP 113/83
[2019-12-26] MEDS: BACLOFEN 20 MG TABLET GT SCH ×3 (08:27→21:00)
[2019-12-26] MEDS: GEMFIBROZIL 600 MG TABLET GT SCH ×2 (08:28→21:00)
[2019-12-26] MEDS: PHENOBARBITAL 32.4 MG TABLET GT SCH ×2 (08:31→21:00)
[2019-12-26] MEDS: ACIDOPHILUS/BULGARICUS CHEW TAB PO SCH ×2 (08:32→21:00)
[2019-12-26] MEDS: Z GUARD REMEDY PASTE TP SCH ×2 (08:33→21:00)
[2019-12-26] MEDS: KETOCONAZOLE 2% CREAM 30 GM TUBE TP SCH ×2 (08:33→17:19)
[2019-12-26] MEDS: NUTRISOURCE FIBER 4 GM PACKET GT SCH (08:42)
[2019-12-26] MEDS: HYDROGEN PEROXIDE 3% 118 ML BOTTLE TP SCH ×2 (09:40→21:35)
[2019-12-26] MEDS: JEVITY 1.2 1000 ML LIQUID GT PRN (17:31)
[2019-12-26] MEDS: OMEGA-3 FATTY ACIDS/FISH OIL CAPSULE GT SCH (21:00)
[2019-12-26 22:00] VITALS: BP 112/76
[2019-12-27] MEDS: ALBUTEROL SULFATE 1.25 MG/3 ML NEBU NEB SCH ×4 (01:01→19:48)
[2019-12-27] MEDS: IPRATROPIUM BROMIDE 0.5 MG/2.5 ML NEBU NEB SCH ×4 (01:01→19:48)
[2019-12-27] MEDS: PANTOPRAZOLE ORAL SUSPENSION 40 MG SUSPDR.PKT GT SCH (05:23)
[2019-12-27] MEDS: VALPROIC ACID 250 MG/5 ML LIQUID UDC GT SCH ×3 (05:23→21:35)
[2019-12-27] MEDS: BACLOFEN 20 MG TABLET GT SCH ×3 (08:04→20:51)
[2019-12-27] MEDS: GEMFIBROZIL 600 MG TABLET GT SCH ×2 (08:04→20:51)
[2019-12-27] MEDS: ACIDOPHILUS/BULGARICUS CHEW TAB PO SCH ×2 (08:05→20:52)
[2019-12-27] MEDS: NUTRISOURCE FIBER 4 GM PACKET GT SCH (08:05)
[2019-12-27] MEDS: PHENOBARBITAL 32.4 MG TABLET GT SCH ×2 (08:05→20:51)
[2019-12-27] MEDS: KETOCONAZOLE 2% CREAM 30 GM TUBE TP SCH ×2 (08:05→17:11)
[2019-12-27] MEDS: Z GUARD REMEDY PASTE TP SCH ×2 (08:05→20:52)
[2019-12-27] MEDS ORDERED: PHENOBARBITAL 32.4 MG TABLET PO ONE ×2 (09:00→21:00)
[2019-12-27] MEDS: HYDROGEN PEROXIDE 3% 118 ML BOTTLE TP SCH ×2 (09:30→21:39)
[2019-12-27] MEDS: JEVITY 1.2 1000 ML LIQUID GT PRN (17:14)
[2019-12-27 20:21] VITALS: BP 125/77
[2019-12-27] MEDS: OMEGA-3 FATTY ACIDS/FISH OIL CAPSULE GT SCH (20:51)
[2019-12-28] MEDS: IPRATROPIUM BROMIDE 0.5 MG/2.5 ML NEBU NEB SCH ×4 (01:51→19:15)
[2019-12-28] MEDS: ALBUTEROL SULFATE 1.25 MG/3 ML NEBU NEB SCH ×4 (01:51→19:15)
[2019-12-28] MEDS: PANTOPRAZOLE ORAL SUSPENSION 40 MG SUSPDR.PKT GT SCH (05:48)
[2019-12-28] MEDS: VALPROIC ACID 250 MG/5 ML LIQUID UDC GT SCH ×3 (05:48→21:45)
[2019-12-28 07:50] VITALS: BP 107/64
[2019-12-28] MEDS: ACIDOPHILUS/BULGARICUS CHEW TAB PO SCH ×2 (08:40→20:52)
[2019-12-28] MEDS: Z GUARD REMEDY PASTE TP SCH ×2 (08:40→20:52)
[2019-12-28] MEDS: NUTRISOURCE FIBER 4 GM PACKET GT SCH (08:40)
[2019-12-28] MEDS: PHENOBARBITAL 32.4 MG TABLET GT SCH ×2 (08:40→20:52)
[2019-12-28] MEDS: BACLOFEN 20 MG TABLET GT SCH ×3 (08:40→20:52)
[2019-12-28] MEDS: KETOCONAZOLE 2% CREAM 30 GM TUBE TP SCH ×2 (08:40→16:28)
[2019-12-28] MEDS: GEMFIBROZIL 600 MG TABLET GT SCH ×2 (08:40→20:52)
[2019-12-28] MEDS: HYDROGEN PEROXIDE 3% 118 ML BOTTLE TP SCH ×2 (09:00→21:17)
[2019-12-28] MEDS ORDERED: PHENOBARBITAL 32.4 MG TABLET PO ONE ×2 (09:00→21:00)
[2019-12-28] MEDS: JEVITY 1.2 1000 ML LIQUID GT PRN (18:14)
[2019-12-28 20:28] VITALS: BP 103/72
[2019-12-28] MEDS: OMEGA-3 FATTY ACIDS/FISH OIL CAPSULE GT SCH (20:52)
[2019-12-29] MEDS: ALBUTEROL SULFATE 1.25 MG/3 ML NEBU NEB SCH ×4 (00:52→19:25)
[2019-12-29] MEDS: IPRATROPIUM BROMIDE 0.5 MG/2.5 ML NEBU NEB SCH ×4 (00:52→19:25)
[2019-12-29] MEDS: PANTOPRAZOLE ORAL SUSPENSION 40 MG SUSPDR.PKT GT SCH (05:30)
[2019-12-29] MEDS: VALPROIC ACID 250 MG/5 ML LIQUID UDC GT SCH ×3 (05:30→21:46)
[2019-12-29 07:26] VITALS: BP 99/63
[2019-12-29] MEDS: NUTRISOURCE FIBER 4 GM PACKET GT SCH (08:59)
[2019-12-29] MEDS: Z GUARD REMEDY PASTE TP SCH ×2 (08:59→21:46)
[2019-12-29] MEDS: KETOCONAZOLE 2% CREAM 30 GM TUBE TP SCH ×2 (08:59→17:36)
[2019-12-29] MEDS: GEMFIBROZIL 600 MG TABLET GT SCH ×2 (08:59→21:46)
[2019-12-29] MEDS: BACLOFEN 20 MG TABLET GT SCH ×3 (08:59→21:46)
[2019-12-29] MEDS: ACIDOPHILUS/BULGARICUS CHEW TAB PO SCH ×2 (08:59→21:46)
[2019-12-29] MEDS ORDERED: PHENOBARBITAL 32.4 MG TABLET PO ONE ×3 (09:00→21:00)
[2019-12-29] MEDS: PHENOBARBITAL 32.4 MG TABLET GT SCH ×2 (09:00→21:47)
[2019-12-29] MEDS: HYDROGEN PEROXIDE 3% 118 ML BOTTLE TP SCH ×2 (09:50→21:37)
[2019-12-29] MEDS: JEVITY 1.2 1000 ML LIQUID GT PRN (13:58)
[2019-12-29 20:12] VITALS: BP 102/64
[2019-12-29] MEDS: OMEGA-3 FATTY ACIDS/FISH OIL CAPSULE GT SCH (21:44)
[2019-12-30] MEDS: IPRATROPIUM BROMIDE 0.5 MG/2.5 ML NEBU NEB SCH ×4 (00:55→20:05)
[2019-12-30] MEDS: ALBUTEROL SULFATE 1.25 MG/3 ML NEBU NEB SCH ×4 (00:55→20:05)
[2019-12-30] MEDS: VALPROIC ACID 250 MG/5 ML LIQUID UDC GT SCH ×3 (06:48→21:59)
[2019-12-30] MEDS: PANTOPRAZOLE ORAL SUSPENSION 40 MG SUSPDR.PKT GT SCH (06:49)
--- NOTE | 2019-12-30 07:30 | NUR ---
NOTED BLUISH SKIN DISCOLORATION ON RIGHT MIDDLE FINGER, NO S/S OF PAIN NOTED WHEN FLEXING THE FINGER, WILL CONTINUE MONITORING.
[2019-12-30 07:32] VITALS: BP 115/73
[2019-12-30] MEDS: GEMFIBROZIL 600 MG TABLET GT SCH ×2 (08:40→21:58)
[2019-12-30] MEDS: NUTRISOURCE FIBER 4 GM PACKET GT SCH (08:40)
[2019-12-30] MEDS: BACLOFEN 20 MG TABLET GT SCH ×3 (08:40→21:56)
[2019-12-30] MEDS: ACIDOPHILUS/BULGARICUS CHEW TAB PO SCH ×2 (08:40→21:58)
[2019-12-30] MEDS: Z GUARD REMEDY PASTE TP SCH ×2 (08:41→21:59)
[2019-12-30] MEDS: KETOCONAZOLE 2% CREAM 30 GM TUBE TP SCH ×2 (08:41→16:39)
[2019-12-30] MEDS ORDERED: PHENOBARBITAL 32.4 MG TABLET PO ONE ×4 (08:45→21:00)
[2019-12-30] MEDS: PHENOBARBITAL 32.4 MG TABLET GT SCH ×2 (08:46→21:58)
[2019-12-30] MEDS: HYDROGEN PEROXIDE 3% 118 ML BOTTLE TP SCH ×2 (09:04→21:00)
--- NOTE | 2019-12-30 14:15 | NUR ---
INTERDISCIPLINARY PLAN OF CARE CONFERENCE was held today. Patient's mother was not available to participate in the meeting. Dr. Bowser and the Interdisciplinary Team reviewed the current plan of care in detail. RN reported on patient's medical condition, along with findings of recent labs and changes in some of the medication. No major changes in condition were reported. See RN IDT conference notes. See also all other disciplines IDT notes and physician's progress notes for additional details.
[2019-12-30] MEDS: JEVITY 1.2 1000 ML LIQUID GT PRN (17:22)
[2019-12-30 20:21] VITALS: BP 100/57
[2019-12-30] MEDS: OMEGA-3 FATTY ACIDS/FISH OIL CAPSULE GT SCH (21:56)
[2019-12-31] MEDS: ALBUTEROL SULFATE 1.25 MG/3 ML NEBU NEB SCH ×4 (01:40→19:50)
[2019-12-31] MEDS: IPRATROPIUM BROMIDE 0.5 MG/2.5 ML NEBU NEB SCH ×4 (01:40→19:50)
[2019-12-31] MEDS: VALPROIC ACID 250 MG/5 ML LIQUID UDC GT SCH ×3 (05:56→21:38)
[2019-12-31] MEDS: PANTOPRAZOLE ORAL SUSPENSION 40 MG SUSPDR.PKT GT SCH (05:56)
[2019-12-31 07:38] VITALS: BP 99/68
[2019-12-31] MEDS: BACLOFEN 20 MG TABLET GT SCH ×3 (08:27→21:36)
[2019-12-31] MEDS: GEMFIBROZIL 600 MG TABLET GT SCH ×2 (08:27→21:37)
[2019-12-31] MEDS: Z GUARD REMEDY PASTE TP SCH ×2 (08:27→21:38)
[2019-12-31] MEDS: KETOCONAZOLE 2% CREAM 30 GM TUBE TP SCH ×2 (08:27→17:47)
[2019-12-31] MEDS: NUTRISOURCE FIBER 4 GM PACKET GT SCH (08:27)
[2019-12-31] MEDS: ACIDOPHILUS/BULGARICUS CHEW TAB PO SCH ×2 (08:27→21:37)
[2019-12-31] MEDS ORDERED: PHENOBARBITAL 32.4 MG TABLET PO ONE ×4 (08:30→21:00)
[2019-12-31] MEDS: PHENOBARBITAL 32.4 MG TABLET GT SCH ×2 (08:30→21:37)
[2019-12-31] MEDS: HYDROGEN PEROXIDE 3% 118 ML BOTTLE TP SCH ×2 (09:00→21:51)
[2019-12-31 20:00] VITALS: BP 94/55
[2019-12-31] MEDS: OMEGA-3 FATTY ACIDS/FISH OIL CAPSULE GT SCH (21:36)
[2020-01-01] MEDS: IPRATROPIUM BROMIDE 0.5 MG/2.5 ML NEBU NEB SCH ×4 (01:03→19:14)
[2020-01-01] MEDS: ALBUTEROL SULFATE 1.25 MG/3 ML NEBU NEB SCH ×4 (01:03→19:14)
[2020-01-01] MEDS: VALPROIC ACID 250 MG/5 ML LIQUID UDC GT SCH ×3 (06:07→21:59)
[2020-01-01] MEDS: PANTOPRAZOLE ORAL SUSPENSION 40 MG SUSPDR.PKT GT SCH (06:07)
[2020-01-01 07:25] VITALS: BP 120/64
[2020-01-01] MEDS: GEMFIBROZIL 600 MG TABLET GT SCH ×2 (08:22→21:56)
[2020-01-01] MEDS: BACLOFEN 20 MG TABLET GT SCH ×3 (08:22→21:52)
[2020-01-01] MEDS: NUTRISOURCE FIBER 4 GM PACKET GT SCH (08:23)
[2020-01-01] MEDS: PHENOBARBITAL 32.4 MG TABLET GT SCH ×2 (08:23→21:56)
[2020-01-01] MEDS: ACIDOPHILUS/BULGARICUS CHEW TAB PO SCH ×2 (08:23→21:58)
[2020-01-01] MEDS: KETOCONAZOLE 2% CREAM 30 GM TUBE TP SCH ×2 (08:24→17:28)
[2020-01-01] MEDS: Z GUARD REMEDY PASTE TP SCH ×2 (08:24→21:59)
[2020-01-01] MEDS: HYDROGEN PEROXIDE 3% 118 ML BOTTLE TP SCH ×2 (09:00→21:24)
[2020-01-01] MEDS: JEVITY 1.2 1000 ML LIQUID GT PRN (15:06)
[2020-01-01 21:12] VITALS: BP 106/72
[2020-01-01] MEDS: OMEGA-3 FATTY ACIDS/FISH OIL CAPSULE GT SCH (21:51)
[2020-01-02] MEDS: IPRATROPIUM BROMIDE 0.5 MG/2.5 ML NEBU NEB SCH ×4 (00:46→20:14)
[2020-01-02] MEDS: ALBUTEROL SULFATE 1.25 MG/3 ML NEBU NEB SCH ×4 (00:46→20:14)
[2020-01-02] MEDS: PANTOPRAZOLE ORAL SUSPENSION 40 MG SUSPDR.PKT GT SCH (05:12)
[2020-01-02] MEDS: VALPROIC ACID 250 MG/5 ML LIQUID UDC GT SCH ×3 (05:12→22:43)
[2020-01-02 07:30] VITALS: BP 102/59
[2020-01-02] MEDS: BACLOFEN 20 MG TABLET GT SCH ×3 (08:41→21:00)
[2020-01-02] MEDS: PHENOBARBITAL 32.4 MG TABLET GT SCH ×2 (08:41→21:00)
[2020-01-02] MEDS: KETOCONAZOLE 2% CREAM 30 GM TUBE TP SCH ×2 (08:41→16:14)
[2020-01-02] MEDS: ACIDOPHILUS/BULGARICUS CHEW TAB PO SCH ×2 (08:41→21:00)
[2020-01-02] MEDS: NUTRISOURCE FIBER 4 GM PACKET GT SCH (08:41)
[2020-01-02] MEDS: GEMFIBROZIL 600 MG TABLET GT SCH ×2 (08:41→21:00)
[2020-01-02] MEDS: Z GUARD REMEDY PASTE TP SCH ×2 (08:41→21:00)
[2020-01-02] MEDS: HYDROGEN PEROXIDE 3% 118 ML BOTTLE TP SCH ×2 (09:00→21:26)
[2020-01-02] MEDS: JEVITY 1.2 1000 ML LIQUID GT PRN (17:12)
[2020-01-02 20:00] VITALS: BP 110/70
[2020-01-02] MEDS: OMEGA-3 FATTY ACIDS/FISH OIL CAPSULE GT SCH (21:00)
[2020-01-03] MEDS: ALBUTEROL SULFATE 1.25 MG/3 ML NEBU NEB SCH ×4 (02:12→19:11)
[2020-01-03] MEDS: IPRATROPIUM BROMIDE 0.5 MG/2.5 ML NEBU NEB SCH ×4 (02:12→19:11)
[2020-01-03] MEDS: PANTOPRAZOLE ORAL SUSPENSION 40 MG SUSPDR.PKT GT SCH (06:13)
[2020-01-03] MEDS: VALPROIC ACID 250 MG/5 ML LIQUID UDC GT SCH ×3 (06:13→22:11)
[2020-01-03 07:32] VITALS: BP 122/63
[2020-01-03] MEDS: HYDROGEN PEROXIDE 3% 118 ML BOTTLE TP SCH ×2 (08:02→21:10)
[2020-01-03] MEDS: GEMFIBROZIL 600 MG TABLET GT SCH ×2 (08:46→21:00)
[2020-01-03] MEDS: NUTRISOURCE FIBER 4 GM PACKET GT SCH (08:46)
[2020-01-03] MEDS: Z GUARD REMEDY PASTE TP SCH ×2 (08:46→21:00)
[2020-01-03] MEDS: BACLOFEN 20 MG TABLET GT SCH ×3 (08:46→21:00)
[2020-01-03] MEDS: ACIDOPHILUS/BULGARICUS CHEW TAB PO SCH ×2 (08:46→21:00)
[2020-01-03] MEDS: KETOCONAZOLE 2% CREAM 30 GM TUBE TP SCH ×2 (08:46→16:27)
[2020-01-03] MEDS: PHENOBARBITAL 32.4 MG TABLET GT SCH ×2 (08:46→21:00)
[2020-01-03 20:00] VITALS: BP 108/79
[2020-01-03] MEDS: OMEGA-3 FATTY ACIDS/FISH OIL CAPSULE GT SCH (21:00)
[2020-01-03] MEDS ORDERED: PHENOBARBITAL 32.4 MG TABLET PO ONE ×2 (21:00)
[2020-01-04] MEDS: IPRATROPIUM BROMIDE 0.5 MG/2.5 ML NEBU NEB SCH ×4 (01:01→19:54)
[2020-01-04] MEDS: ALBUTEROL SULFATE 1.25 MG/3 ML NEBU NEB SCH ×4 (01:01→19:54)
[2020-01-04] MEDS: JEVITY 1.2 1000 ML LIQUID GT PRN (01:42)
[2020-01-04] MEDS: PANTOPRAZOLE ORAL SUSPENSION 40 MG SUSPDR.PKT GT SCH (05:23)
[2020-01-04] MEDS: VALPROIC ACID 250 MG/5 ML LIQUID UDC GT SCH ×3 (05:23→22:15)
[2020-01-04 07:45] VITALS: BP 98/63
[2020-01-04] MEDS: BACLOFEN 20 MG TABLET GT SCH ×3 (08:14→20:29)
[2020-01-04] MEDS: GEMFIBROZIL 600 MG TABLET GT SCH ×2 (08:14→20:29)
[2020-01-04] MEDS: PHENOBARBITAL 32.4 MG TABLET GT SCH ×2 (08:15→20:29)
[2020-01-04] MEDS: NUTRISOURCE FIBER 4 GM PACKET GT SCH (08:15)
[2020-01-04] MEDS: Z GUARD REMEDY PASTE TP SCH ×2 (08:16→20:30)
[2020-01-04] MEDS: ACIDOPHILUS/BULGARICUS CHEW TAB PO SCH ×2 (08:16→20:30)
[2020-01-04] MEDS: KETOCONAZOLE 2% CREAM 30 GM TUBE TP SCH ×2 (08:16→17:06)
[2020-01-04] MEDS ORDERED: PHENOBARBITAL 32.4 MG TABLET PO ONE ×4 (09:00→21:00)
[2020-01-04] MEDS: HYDROGEN PEROXIDE 3% 118 ML BOTTLE TP SCH ×2 (09:36→21:00)
[2020-01-04 20:01] VITALS: BP 112/65
[2020-01-04] MEDS: OMEGA-3 FATTY ACIDS/FISH OIL CAPSULE GT SCH (20:29)
[2020-01-05] MEDS: IPRATROPIUM BROMIDE 0.5 MG/2.5 ML NEBU NEB SCH ×4 (01:01→19:30)
[2020-01-05] MEDS: ALBUTEROL SULFATE 1.25 MG/3 ML NEBU NEB SCH ×4 (01:01→19:30)
[2020-01-05] MEDS: JEVITY 1.2 1000 ML LIQUID GT PRN (02:15)
[2020-01-05] MEDS: PANTOPRAZOLE ORAL SUSPENSION 40 MG SUSPDR.PKT GT SCH (05:31)
[2020-01-05] MEDS: VALPROIC ACID 250 MG/5 ML LIQUID UDC GT SCH ×3 (05:31→22:07)
[2020-01-05 07:41] VITALS: BP 101/50
[2020-01-05] MEDS: HYDROGEN PEROXIDE 3% 118 ML BOTTLE TP SCH ×2 (08:08→21:05)
[2020-01-05] MEDS: GEMFIBROZIL 600 MG TABLET GT SCH ×2 (08:53→20:24)
[2020-01-05] MEDS: BACLOFEN 20 MG TABLET GT SCH ×3 (08:53→20:24)
[2020-01-05] MEDS: NUTRISOURCE FIBER 4 GM PACKET GT SCH (08:54)
[2020-01-05] MEDS: ACIDOPHILUS/BULGARICUS CHEW TAB PO SCH ×2 (08:54→20:24)
[2020-01-05] MEDS: PHENOBARBITAL 32.4 MG TABLET GT SCH ×2 (08:54→20:24)
[2020-01-05] MEDS: Z GUARD REMEDY PASTE TP SCH ×2 (08:55→20:24)
[2020-01-05] MEDS: KETOCONAZOLE 2% CREAM 30 GM TUBE TP SCH ×2 (08:55→17:11)
[2020-01-05] MEDS ORDERED: PHENOBARBITAL 32.4 MG TABLET PO ONE ×4 (09:00→21:00)
[2020-01-05 20:02] VITALS: BP 117/79
[2020-01-05] MEDS: OMEGA-3 FATTY ACIDS/FISH OIL CAPSULE GT SCH (20:24)
[2020-01-06] MEDS: ALBUTEROL SULFATE 1.25 MG/3 ML NEBU NEB SCH ×4 (00:50→19:41)
[2020-01-06] MEDS: IPRATROPIUM BROMIDE 0.5 MG/2.5 ML NEBU NEB SCH ×4 (00:50→19:41)
[2020-01-06] MEDS: PANTOPRAZOLE ORAL SUSPENSION 40 MG SUSPDR.PKT GT SCH (05:06)
[2020-01-06] MEDS: VALPROIC ACID 250 MG/5 ML LIQUID UDC GT SCH ×3 (05:06→22:18)
[2020-01-06] MEDS: JEVITY 1.2 1000 ML LIQUID GT PRN (07:00)
[2020-01-06 07:27] VITALS: BP 96/61
[2020-01-06] MEDS: GEMFIBROZIL 600 MG TABLET GT SCH ×2 (08:17→20:21)
[2020-01-06] MEDS: BACLOFEN 20 MG TABLET GT SCH ×3 (08:17→20:21)
[2020-01-06] MEDS: PHENOBARBITAL 32.4 MG TABLET GT SCH ×2 (08:17→20:21)
[2020-01-06] MEDS: NUTRISOURCE FIBER 4 GM PACKET GT SCH (08:18)
[2020-01-06] MEDS: Z GUARD REMEDY PASTE TP SCH ×2 (08:18→20:22)
[2020-01-06] MEDS: ACIDOPHILUS/BULGARICUS CHEW TAB PO SCH ×2 (08:18→20:21)
[2020-01-06] MEDS: KETOCONAZOLE 2% CREAM 30 GM TUBE TP SCH ×2 (08:18→17:18)
[2020-01-06] MEDS: HYDROGEN PEROXIDE 3% 118 ML BOTTLE TP SCH ×2 (09:00→21:15)
[2020-01-06 19:52] VITALS: BP 114/69
[2020-01-06] MEDS: OMEGA-3 FATTY ACIDS/FISH OIL CAPSULE GT SCH (20:21)
[2020-01-07] MEDS: IPRATROPIUM BROMIDE 0.5 MG/2.5 ML NEBU NEB SCH ×4 (01:38→19:29)
[2020-01-07] MEDS: ALBUTEROL SULFATE 1.25 MG/3 ML NEBU NEB SCH ×4 (01:38→19:29)
[2020-01-07] MEDS: VALPROIC ACID 250 MG/5 ML LIQUID UDC GT SCH ×3 (05:00→22:00)
[2020-01-07] MEDS: PANTOPRAZOLE ORAL SUSPENSION 40 MG SUSPDR.PKT GT SCH (05:00)
[2020-01-07 07:45] VITALS: BP 114/74
[2020-01-07] MEDS: HYDROGEN PEROXIDE 3% 118 ML BOTTLE TP SCH ×2 (08:17→21:00)
[2020-01-07] MEDS: BACLOFEN 20 MG TABLET GT SCH ×3 (09:19→21:00)
[2020-01-07] MEDS: ACIDOPHILUS/BULGARICUS CHEW TAB PO SCH ×2 (09:19→21:00)
[2020-01-07] MEDS: KETOCONAZOLE 2% CREAM 30 GM TUBE TP SCH ×2 (09:19→17:08)
[2020-01-07] MEDS: Z GUARD REMEDY PASTE TP SCH ×2 (09:19→21:00)
[2020-01-07] MEDS: GEMFIBROZIL 600 MG TABLET GT SCH ×2 (09:19→21:00)
[2020-01-07] MEDS: PHENOBARBITAL 32.4 MG TABLET GT SCH ×2 (09:19→21:00)
[2020-01-07] MEDS: NUTRISOURCE FIBER 4 GM PACKET GT SCH (09:19)
[2020-01-07 20:04] VITALS: BP 106/69
[2020-01-07] MEDS: OMEGA-3 FATTY ACIDS/FISH OIL CAPSULE GT SCH (21:00)
[2020-01-08] MEDS: IPRATROPIUM BROMIDE 0.5 MG/2.5 ML NEBU NEB SCH ×4 (00:44→19:49)
[2020-01-08] MEDS: ALBUTEROL SULFATE 1.25 MG/3 ML NEBU NEB SCH ×4 (00:44→19:49)
[2020-01-08] MEDS: PANTOPRAZOLE ORAL SUSPENSION 40 MG SUSPDR.PKT GT SCH (05:01)
[2020-01-08] MEDS: VALPROIC ACID 250 MG/5 ML LIQUID UDC GT SCH ×3 (05:01→22:12)
[2020-01-08 07:44] VITALS: BP 105/57
[2020-01-08] MEDS: ACIDOPHILUS/BULGARICUS CHEW TAB PO SCH ×2 (08:03→21:00)
[2020-01-08] MEDS: KETOCONAZOLE 2% CREAM 30 GM TUBE TP SCH ×2 (08:03→17:19)
[2020-01-08] MEDS: BACLOFEN 20 MG TABLET GT SCH ×3 (08:03→21:00)
[2020-01-08] MEDS: GEMFIBROZIL 600 MG TABLET GT SCH ×2 (08:03→21:00)
[2020-01-08] MEDS: PHENOBARBITAL 32.4 MG TABLET GT SCH ×2 (08:03→21:00)
[2020-01-08] MEDS: Z GUARD REMEDY PASTE TP SCH ×2 (08:03→21:00)
[2020-01-08] MEDS: NUTRISOURCE FIBER 4 GM PACKET GT SCH (08:03)
[2020-01-08] MEDS: HYDROGEN PEROXIDE 3% 118 ML BOTTLE TP SCH ×2 (09:33→21:44)
[2020-01-08] MEDS: JEVITY 1.2 1000 ML LIQUID GT PRN (10:53)
--- NOTE | 2020-01-08 18:10 | NUR ---
Informed family member Abby, of COVID 19 possible exposure and testing plan with good understanding.
[2020-01-08 20:00] VITALS: BP 109/78
[2020-01-08] MEDS ORDERED: PHENOBARBITAL 32.4 MG TABLET PO ONE ×2 (21:00)
[2020-01-08] MEDS: OMEGA-3 FATTY ACIDS/FISH OIL CAPSULE GT SCH (21:00)
[2020-01-09] MEDS: IPRATROPIUM BROMIDE 0.5 MG/2.5 ML NEBU NEB SCH ×4 (01:29→20:15)
[2020-01-09] MEDS: ALBUTEROL SULFATE 1.25 MG/3 ML NEBU NEB SCH ×4 (01:29→20:15)
--- NOTE | 2020-01-09 02:00 | NUR ---
New order for COVID-19 test per [facility] COVID-19 requirement.
[2020-01-09] MEDS: JEVITY 1.2 1000 ML LIQUID GT PRN ×2 (03:15→21:56)
[2020-01-09] MEDS: VALPROIC ACID 250 MG/5 ML LIQUID UDC GT SCH ×3 (05:15→21:56)
[2020-01-09] MEDS: PANTOPRAZOLE ORAL SUSPENSION 40 MG SUSPDR.PKT GT SCH (05:15)
[2020-01-09 07:51] VITALS: BP 106/76
[2020-01-09] MEDS: HYDROGEN PEROXIDE 3% 118 ML BOTTLE TP SCH ×2 (09:00→21:35)
[2020-01-09] MEDS ORDERED: PHENOBARBITAL 32.4 MG TABLET PO ONE ×4 (09:00→21:00)
[2020-01-09] MEDS: GEMFIBROZIL 600 MG TABLET GT SCH ×2 (09:10→21:56)
[2020-01-09] MEDS: BACLOFEN 20 MG TABLET GT SCH ×3 (09:10→21:55)
[2020-01-09] MEDS: ACIDOPHILUS/BULGARICUS CHEW TAB PO SCH ×2 (09:12→21:56)
[2020-01-09] MEDS: NUTRISOURCE FIBER 4 GM PACKET GT SCH (09:12)
[2020-01-09] MEDS: KETOCONAZOLE 2% CREAM 30 GM TUBE TP SCH ×2 (09:12→17:07)
[2020-01-09] MEDS: Z GUARD REMEDY PASTE TP SCH ×2 (09:12→21:56)
[2020-01-09] MEDS: PHENOBARBITAL 32.4 MG TABLET GT SCH ×2 (09:12→21:56)
[2020-01-09] MEDS: OMEGA-3 FATTY ACIDS/FISH OIL CAPSULE GT SCH (21:55)
[2020-01-10] MEDS: ALBUTEROL SULFATE 1.25 MG/3 ML NEBU NEB SCH ×4 (01:59→19:25)
[2020-01-10] MEDS: IPRATROPIUM BROMIDE 0.5 MG/2.5 ML NEBU NEB SCH ×4 (01:59→19:25)
[2020-01-10] MEDS: VALPROIC ACID 250 MG/5 ML LIQUID UDC GT SCH ×3 (05:54→22:05)
[2020-01-10] MEDS: PANTOPRAZOLE ORAL SUSPENSION 40 MG SUSPDR.PKT GT SCH (05:54)
[2020-01-10 08:00] VITALS: BP 100/59
[2020-01-10] MEDS: Z GUARD REMEDY PASTE TP SCH ×2 (08:31→21:00)
[2020-01-10] MEDS: ACIDOPHILUS/BULGARICUS CHEW TAB PO SCH ×2 (08:31→21:00)
[2020-01-10] MEDS: BACLOFEN 20 MG TABLET GT SCH ×3 (08:31→21:00)
[2020-01-10] MEDS: PHENOBARBITAL 32.4 MG TABLET GT SCH ×2 (08:31→21:00)
[2020-01-10] MEDS: GEMFIBROZIL 600 MG TABLET GT SCH ×2 (08:31→21:00)
[2020-01-10] MEDS: KETOCONAZOLE 2% CREAM 30 GM TUBE TP SCH ×2 (08:31→17:40)
[2020-01-10] MEDS: NUTRISOURCE FIBER 4 GM PACKET GT SCH (08:31)
[2020-01-10] MEDS ORDERED: PHENOBARBITAL 32.4 MG TABLET PO ONE ×4 (09:00→21:00)
[2020-01-10] MEDS: HYDROGEN PEROXIDE 3% 118 ML BOTTLE TP SCH ×2 (09:30→20:58)
[2020-01-10] MEDS: JEVITY 1.2 1000 ML LIQUID GT PRN (14:07)
[2020-01-10] MEDS: OMEGA-3 FATTY ACIDS/FISH OIL CAPSULE GT SCH (21:00)
[2020-01-10 23:15] VITALS: BP 101/62
[2020-01-11] MEDS: ALBUTEROL SULFATE 1.25 MG/3 ML NEBU NEB SCH ×4 (00:54→19:16)
[2020-01-11] MEDS: IPRATROPIUM BROMIDE 0.5 MG/2.5 ML NEBU NEB SCH ×4 (00:54→19:16)
[2020-01-11] MEDS: JEVITY 1.2 1000 ML LIQUID GT PRN ×2 (04:29→23:19)
[2020-01-11] MEDS: VALPROIC ACID 250 MG/5 ML LIQUID UDC GT SCH ×3 (05:44→22:22)
[2020-01-11] MEDS: PANTOPRAZOLE ORAL SUSPENSION 40 MG SUSPDR.PKT GT SCH (05:44)
[2020-01-11 07:44] VITALS: BP 97/61
[2020-01-11] MEDS ORDERED: PHENOBARBITAL 32.4 MG TABLET ONE ×2 (08:00→21:00)
[2020-01-11] MEDS: BACLOFEN 20 MG TABLET GT SCH ×3 (08:08→21:00)
[2020-01-11] MEDS: GEMFIBROZIL 600 MG TABLET GT SCH ×2 (08:08→21:00)
[2020-01-11] MEDS: ACIDOPHILUS/BULGARICUS CHEW TAB PO SCH ×2 (08:09→21:00)
[2020-01-11] MEDS: PHENOBARBITAL 32.4 MG TABLET GT SCH ×2 (08:09→21:00)
[2020-01-11] MEDS: KETOCONAZOLE 2% CREAM 30 GM TUBE TP SCH ×2 (08:09→17:22)
[2020-01-11] MEDS: NUTRISOURCE FIBER 4 GM PACKET GT SCH (08:09)
[2020-01-11] MEDS: Z GUARD REMEDY PASTE TP SCH ×2 (08:09→21:00)
[2020-01-11] MEDS: HYDROGEN PEROXIDE 3% 118 ML BOTTLE TP SCH ×2 (09:15→21:22)
--- NOTE | 2020-01-11 19:30 | NUR ---
Spoke to Abby pt's mother of the COVID 19 results are negative.
[2020-01-11] MEDS: OMEGA-3 FATTY ACIDS/FISH OIL CAPSULE GT SCH (21:00)
[2020-01-11 23:30] VITALS: BP 107/68
[2020-01-12] MEDS: IPRATROPIUM BROMIDE 0.5 MG/2.5 ML NEBU NEB SCH ×4 (00:47→19:45)
[2020-01-12] MEDS: ALBUTEROL SULFATE 1.25 MG/3 ML NEBU NEB SCH ×4 (00:47→19:45)
[2020-01-12] MEDS: PANTOPRAZOLE ORAL SUSPENSION 40 MG SUSPDR.PKT GT SCH (06:10)
[2020-01-12] MEDS: VALPROIC ACID 250 MG/5 ML LIQUID UDC GT SCH ×3 (06:10→22:00)
[2020-01-12] MEDS: HYDROGEN PEROXIDE 3% 118 ML BOTTLE TP SCH ×2 (07:13→21:00)
[2020-01-12 07:40] VITALS: BP 97/51
[2020-01-12] MEDS: Z GUARD REMEDY PASTE TP SCH ×2 (08:29→21:00)
[2020-01-12] MEDS: PHENOBARBITAL 32.4 MG TABLET GT SCH ×2 (08:29→21:00)
[2020-01-12] MEDS: BACLOFEN 20 MG TABLET GT SCH ×3 (08:29→21:00)
[2020-01-12] MEDS: ACIDOPHILUS/BULGARICUS CHEW TAB PO SCH ×2 (08:29→21:00)
[2020-01-12] MEDS: KETOCONAZOLE 2% CREAM 30 GM TUBE TP SCH ×2 (08:29→17:26)
[2020-01-12] MEDS: GEMFIBROZIL 600 MG TABLET GT SCH ×2 (08:29→21:00)
[2020-01-12] MEDS: NUTRISOURCE FIBER 4 GM PACKET GT SCH (08:29)
[2020-01-12] MEDS ORDERED: PHENOBARBITAL 32.4 MG TABLET ONE ×2 (09:00→21:00)
[2020-01-12] MEDS: JEVITY 1.2 1000 ML LIQUID GT PRN (17:36)
[2020-01-12 20:12] VITALS: BP 106/67
[2020-01-12] MEDS: OMEGA-3 FATTY ACIDS/FISH OIL CAPSULE GT SCH (21:00)
[2020-01-13] MEDS: IPRATROPIUM BROMIDE 0.5 MG/2.5 ML NEBU NEB SCH ×4 (01:06→19:22)
[2020-01-13] MEDS: ALBUTEROL SULFATE 1.25 MG/3 ML NEBU NEB SCH ×4 (01:06→19:22)
[2020-01-13] MEDS: PANTOPRAZOLE ORAL SUSPENSION 40 MG SUSPDR.PKT GT SCH (05:30)
[2020-01-13] MEDS: VALPROIC ACID 250 MG/5 ML LIQUID UDC GT SCH ×3 (05:30→22:15)
[2020-01-13 07:32] VITALS: BP 100/70
[2020-01-13] MEDS: Z GUARD REMEDY PASTE TP SCH ×2 (08:50→20:02)
[2020-01-13] MEDS: NUTRISOURCE FIBER 4 GM PACKET GT SCH (08:50)
[2020-01-13] MEDS: BACLOFEN 20 MG TABLET GT SCH ×3 (08:50→20:02)
[2020-01-13] MEDS: KETOCONAZOLE 2% CREAM 30 GM TUBE TP SCH ×2 (08:50→16:04)
[2020-01-13] MEDS: PHENOBARBITAL 32.4 MG TABLET GT SCH ×2 (08:50→20:02)
[2020-01-13] MEDS: GEMFIBROZIL 600 MG TABLET GT SCH ×2 (08:50→20:02)
[2020-01-13] MEDS: ACIDOPHILUS/BULGARICUS CHEW TAB PO SCH ×2 (08:50→20:02)
[2020-01-13] MEDS ORDERED: PHENOBARBITAL 32.4 MG TABLET ONE (09:00)
[2020-01-13] MEDS: HYDROGEN PEROXIDE 3% 118 ML BOTTLE TP SCH ×2 (09:49→20:56)
[2020-01-13] MEDS: JEVITY 1.2 1000 ML LIQUID GT PRN (11:47)
[2020-01-13] MEDS: OMEGA-3 FATTY ACIDS/FISH OIL CAPSULE GT SCH (20:02)
[2020-01-13 20:05] VITALS: BP 101/64
[2020-01-14] MEDS: IPRATROPIUM BROMIDE 0.5 MG/2.5 ML NEBU NEB SCH ×4 (00:55→19:19)
[2020-01-14] MEDS: ALBUTEROL SULFATE 1.25 MG/3 ML NEBU NEB SCH ×4 (00:55→19:19)
[2020-01-14] MEDS: JEVITY 1.2 1000 ML LIQUID GT PRN (01:48)
[2020-01-14] MEDS: VALPROIC ACID 250 MG/5 ML LIQUID UDC GT SCH ×3 (06:07→22:48)
[2020-01-14] MEDS: PANTOPRAZOLE ORAL SUSPENSION 40 MG SUSPDR.PKT GT SCH (06:07)
[2020-01-14] MEDS: HYDROGEN PEROXIDE 3% 118 ML BOTTLE TP SCH ×2 (08:36→21:05)
[2020-01-14] MEDS: GEMFIBROZIL 600 MG TABLET GT SCH ×2 (09:09→20:18)
[2020-01-14] MEDS: NUTRISOURCE FIBER 4 GM PACKET GT SCH (09:09)
[2020-01-14] MEDS: BACLOFEN 20 MG TABLET GT SCH ×3 (09:09→20:18)
[2020-01-14] MEDS: PHENOBARBITAL 32.4 MG TABLET GT SCH ×2 (09:09→20:18)
[2020-01-14] MEDS: KETOCONAZOLE 2% CREAM 30 GM TUBE TP SCH ×2 (09:10→16:45)
[2020-01-14] MEDS: Z GUARD REMEDY PASTE TP SCH ×2 (09:10→20:18)
[2020-01-14] MEDS: ACIDOPHILUS/BULGARICUS CHEW TAB PO SCH ×2 (09:10→20:18)
[2020-01-14 10:00] VITALS: BP 102/73
--- NOTE | 2020-01-14 16:50 | NUR ---
New order for COVID-19 test per [facility] COVID-19 requirement.
[2020-01-14] MEDS: OMEGA-3 FATTY ACIDS/FISH OIL CAPSULE GT SCH (20:18)
[2020-01-14 20:30] VITALS: BP 98/58
--- NOTE | 2020-01-14 22:00 | NUR ---
mother kulwinder called back, notified covid 19 test will be done on sunday.
[2020-01-15] MEDS: IPRATROPIUM BROMIDE 0.5 MG/2.5 ML NEBU NEB SCH ×4 (00:47→19:16)
[2020-01-15] MEDS: ALBUTEROL SULFATE 1.25 MG/3 ML NEBU NEB SCH ×4 (00:47→19:16)
[2020-01-15] MEDS: PANTOPRAZOLE ORAL SUSPENSION 40 MG SUSPDR.PKT GT SCH (06:00)
[2020-01-15] MEDS: VALPROIC ACID 250 MG/5 ML LIQUID UDC GT SCH ×3 (06:00→22:49)
[2020-01-15] MEDS: HYDROGEN PEROXIDE 3% 118 ML BOTTLE TP SCH ×2 (07:39→19:16)
[2020-01-15 07:44] VITALS: BP 100/70
[2020-01-15] MEDS: GEMFIBROZIL 600 MG TABLET GT SCH ×2 (08:47→20:03)
[2020-01-15] MEDS: ACIDOPHILUS/BULGARICUS CHEW TAB PO SCH ×2 (08:47→20:08)
[2020-01-15] MEDS: PHENOBARBITAL 32.4 MG TABLET GT SCH ×2 (08:47→20:08)
[2020-01-15] MEDS: BACLOFEN 20 MG TABLET GT SCH ×3 (08:47→20:03)
[2020-01-15] MEDS: NUTRISOURCE FIBER 4 GM PACKET GT SCH (08:47)
[2020-01-15] MEDS: KETOCONAZOLE 2% CREAM 30 GM TUBE TP SCH ×2 (08:48→16:09)
[2020-01-15] MEDS: Z GUARD REMEDY PASTE TP SCH ×2 (08:48→20:09)
[2020-01-15 20:01] VITALS: BP 104/62
[2020-01-15] MEDS: OMEGA-3 FATTY ACIDS/FISH OIL CAPSULE GT SCH (20:03)
[2020-01-16] MEDS: IPRATROPIUM BROMIDE 0.5 MG/2.5 ML NEBU NEB SCH ×4 (00:46→19:51)
[2020-01-16] MEDS: ALBUTEROL SULFATE 1.25 MG/3 ML NEBU NEB SCH ×4 (00:46→19:51)
[2020-01-16] MEDS: PANTOPRAZOLE ORAL SUSPENSION 40 MG SUSPDR.PKT GT SCH (06:17)
[2020-01-16] MEDS: VALPROIC ACID 250 MG/5 ML LIQUID UDC GT SCH ×3 (06:17→21:43)
[2020-01-16 08:26] VITALS: BP 96/58
[2020-01-16] MEDS ORDERED: PHENOBARBITAL 32.4 MG TABLET PO ONE ×4 (08:45→21:00)
[2020-01-16] MEDS: HYDROGEN PEROXIDE 3% 118 ML BOTTLE TP SCH ×2 (09:35→21:58)
[2020-01-16] MEDS: ACIDOPHILUS/BULGARICUS CHEW TAB PO SCH ×2 (09:59→20:55)
[2020-01-16] MEDS: BACLOFEN 20 MG TABLET GT SCH ×3 (09:59→20:55)
[2020-01-16] MEDS: Z GUARD REMEDY PASTE TP SCH ×2 (09:59→20:55)
[2020-01-16] MEDS: KETOCONAZOLE 2% CREAM 30 GM TUBE TP SCH ×2 (09:59→17:19)
[2020-01-16] MEDS: GEMFIBROZIL 600 MG TABLET GT SCH ×2 (09:59→20:55)
[2020-01-16] MEDS: NUTRISOURCE FIBER 4 GM PACKET GT SCH (09:59)
[2020-01-16] MEDS: PHENOBARBITAL 32.4 MG TABLET GT SCH ×2 (09:59→20:55)
[2020-01-16] MEDS: OMEGA-3 FATTY ACIDS/FISH OIL CAPSULE GT SCH (20:55)
[2020-01-16 22:00] VITALS: BP 100/63
[2020-01-17] MEDS: ALBUTEROL SULFATE 1.25 MG/3 ML NEBU NEB SCH ×4 (01:19→19:21)
[2020-01-17] MEDS: IPRATROPIUM BROMIDE 0.5 MG/2.5 ML NEBU NEB SCH ×4 (01:19→19:21)
[2020-01-17] MEDS: VALPROIC ACID 250 MG/5 ML LIQUID UDC GT SCH ×3 (05:45→21:26)
[2020-01-17] MEDS: PANTOPRAZOLE ORAL SUSPENSION 40 MG SUSPDR.PKT GT SCH (05:45)
[2020-01-17 07:37] VITALS: BP 129/69
[2020-01-17] MEDS: NUTRISOURCE FIBER 4 GM PACKET GT SCH (08:15)
[2020-01-17] MEDS: BACLOFEN 20 MG TABLET GT SCH ×3 (08:15→20:39)
[2020-01-17] MEDS: GEMFIBROZIL 600 MG TABLET GT SCH ×2 (08:15→20:39)
[2020-01-17] MEDS: Z GUARD REMEDY PASTE TP SCH ×2 (08:16→20:40)
[2020-01-17] MEDS: ACIDOPHILUS/BULGARICUS CHEW TAB PO SCH ×2 (08:16→20:39)
[2020-01-17] MEDS: KETOCONAZOLE 2% CREAM 30 GM TUBE TP SCH ×2 (08:16→17:28)
[2020-01-17] MEDS: PHENOBARBITAL 32.4 MG TABLET GT SCH ×2 (08:16→20:39)
[2020-01-17] MEDS: HYDROGEN PEROXIDE 3% 118 ML BOTTLE TP SCH ×2 (08:59→21:24)
[2020-01-17] MEDS ORDERED: PHENOBARBITAL 32.4 MG TABLET PO ONE ×4 (09:00→21:00)
[2020-01-17] MEDS: OMEGA-3 FATTY ACIDS/FISH OIL CAPSULE GT SCH (20:39)
[2020-01-17 23:06] VITALS: BP 103/60
[2020-01-18] MEDS: IPRATROPIUM BROMIDE 0.5 MG/2.5 ML NEBU NEB SCH ×4 (00:44→19:16)
[2020-01-18] MEDS: ALBUTEROL SULFATE 1.25 MG/3 ML NEBU NEB SCH ×4 (00:44→19:16)
[2020-01-18] MEDS: JEVITY 1.2 1000 ML LIQUID GT PRN ×2 (02:03→17:31)
[2020-01-18] MEDS: PANTOPRAZOLE ORAL SUSPENSION 40 MG SUSPDR.PKT GT SCH (06:01)
[2020-01-18] MEDS: VALPROIC ACID 250 MG/5 ML LIQUID UDC GT SCH ×3 (06:01→21:32)
[2020-01-18 07:35] VITALS: BP 97/47
[2020-01-18] MEDS: NUTRISOURCE FIBER 4 GM PACKET GT SCH (08:26)
[2020-01-18] MEDS: KETOCONAZOLE 2% CREAM 30 GM TUBE TP SCH ×2 (08:26→17:31)
[2020-01-18] MEDS: GEMFIBROZIL 600 MG TABLET GT SCH ×2 (08:26→20:55)
[2020-01-18] MEDS: Z GUARD REMEDY PASTE TP SCH ×2 (08:26→20:55)
[2020-01-18] MEDS: BACLOFEN 20 MG TABLET GT SCH ×3 (08:26→20:55)
[2020-01-18] MEDS: PHENOBARBITAL 32.4 MG TABLET GT SCH ×2 (08:26→20:55)
[2020-01-18] MEDS: ACIDOPHILUS/BULGARICUS CHEW TAB PO SCH ×2 (08:26→20:55)
[2020-01-18] MEDS: HYDROGEN PEROXIDE 3% 118 ML BOTTLE TP SCH ×2 (09:00→21:01)
[2020-01-18] MEDS ORDERED: PHENOBARBITAL 32.4 MG TABLET PO ONE ×2 (09:00)
--- NOTE | 2020-01-18 14:38 | NUR ---
PT'S MOTHER AWARE THAT PT. IS NEGATIVE FOR COVID 19.
[2020-01-18 20:39] VITALS: BP 101/71
[2020-01-18] MEDS: OMEGA-3 FATTY ACIDS/FISH OIL CAPSULE GT SCH (20:55)
[2020-01-19] MEDS: IPRATROPIUM BROMIDE 0.5 MG/2.5 ML NEBU NEB SCH ×3 (00:45→13:30)
[2020-01-19] MEDS: ALBUTEROL SULFATE 1.25 MG/3 ML NEBU NEB SCH ×3 (00:45→13:30)
--- NOTE | 2020-01-19 04:00 | NUR ---
F/C 18#10 WAS CHANGING DUE TO CLOTH AND URINE RETENTION NOTED.AFTER F/C WAS CHANGE PT HAS EPISODE OF BLEEDING FROM TIP OF PENIS SMALL AMOUNT NO S/S OF PAIN CONTINUE MONITOR FOR BLEEDING URINE OUT PUT =1000ML NOTED.
[2020-01-19] MEDS: PANTOPRAZOLE ORAL SUSPENSION 40 MG SUSPDR.PKT GT SCH (06:01)
[2020-01-19] MEDS: VALPROIC ACID 250 MG/5 ML LIQUID UDC GT SCH (06:01)
--- NOTE | 2020-01-19 07:15 | NUR ---
PT. RECEIVED WITH A NEW F/C 18 X10 DRAINING YELLOW URINE WITH SEDIMENTS ,PER HOTBED TRANSFER OPERATOR UNABLE TO READ B/P ,PT.SLEEPY BUT RESPONSIVE TO TOUCH AND PAIN STIMULI,SKIN DRY AND WARM TO TOUCH ,NORMAL CAPILLARY REFILL,NO CYANOSIS ,NO SOB AND OCC FACIAL GRIMACING WITH RED EYES AND NOTED SMALL BLEEDING AROUND F/C INSERTION
--- NOTE | 2020-01-19 07:20 | NUR ---
ROUTINE Q6 ALBUTEROL NEB TX NOT GIVEN DUE TO INCREASED HEART RATE.
[2020-01-19 07:41] VITALS: BP 86/50
--- NOTE | 2020-01-19 07:45 | NUR ---
DR. PLAZA WAS PAGED AT THIS TIME
--- NOTE | 2020-01-19 07:55 | NUR ---
DR. ALMAGUER CALLED AND AWARE OF PT'S CONDITION AND WITH NEW ORDERS AND F/U WITH UROLOGIST.
--- NOTE | 2020-01-19 07:58 | NUR ---
PT'S MOTHER WAS CALLED AND MESSAGE LEFT IN CELLPHONE TO CALL BACK.
[2020-01-19] MEDS: NUTRISOURCE FIBER 4 GM PACKET GT SCH (08:04)
[2020-01-19] MEDS: GEMFIBROZIL 600 MG TABLET GT SCH (08:04)
[2020-01-19] MEDS: BACLOFEN 20 MG TABLET GT SCH (08:04)
[2020-01-19] MEDS: PHENOBARBITAL 32.4 MG TABLET GT SCH (08:05)
[2020-01-19] MEDS: ACIDOPHILUS/BULGARICUS CHEW TAB PO SCH (08:05)
--- NOTE | 2020-01-19 08:10 | NUR ---
BATH GIVEN AND COOLING MEASURES APPLIED.
--- NOTE | 2020-01-19 08:10 | NUR ---
DR. PLAZA PAGED PT. WITH 103 F.(SEE RECORD)
--- NOTE | 2020-01-19 08:10 | NUR ---
NOTED NO SKIN BREAKS DURING BED BATH ,NO PRESSURE SORES.TRACH CARE DONE BY RT BROWN.
[2020-01-19 08:13] VITALS: BP 137/98
--- NOTE | 2020-01-19 08:35 | NUR ---
DR PLAZA CALLED BACK WITH NEW ORDERS CARRIED OUT.
[2020-01-19 08:53] LABS: BASOPHILS % (AUTO) 0.2 % (0.0-2.0); HEMATOCRIT 45.6 % (36.7-47.1); HEMOGLOBIN 15.1 g/dL (12.5-16.3); LYMPHOCYTES # (AUTO) 0.2 K/uL (20.0-40.0); LYMPHOCYTES % (AUTO) 1.1 % (20.5-51.5); MEAN CORPUSCULAR HEMOGLOBIN 30.8 uug (23.8-33.4); MEAN CORPUSCULAR HGB CONC 33 g/dL (32.5-36.3); MEAN CORPUSCULAR VOLUME 93.4 fL (73.0-96.2); MONOCYTES # (AUTO) 0.1 K/uL (2.0-10.0); MONOCYTES % (AUTO) 0.7 % (0.0-11.0); NEUTROPHILS # (AUTO) 13.6 K/uL (1.8-8.9); PLATELET COUNT (AUTO) 196 K/uL (152-348); RED BLOOD CELL COUNT(AUTO) 4.88 MIL/uL (4.06-5.63); WHITE BLOOD COUNT (AUTO) 13.8 K/uL (3.6-10.2)
[2020-01-19 08:55] LABS: CREATININE 1.1 mg/dL (0.6-1.3); POTASSIUM 4.1 mmol/L (3.5-5.1)
--- NOTE | 2020-01-19 09:00 | NUR ---
SEEN BY DR. PLAZA AND WITH NNO.
[2020-01-19 09:10] VITALS: BP 75/40
--- NOTE | 2020-01-19 09:10 | NUR ---
V/S CHECKED FREQUENTLY (SEE RECORD)
--- NOTE | 2020-01-19 09:11 | NUR ---
PT'S SEEN AND EXAMINED BY Cesar MADSEN AND WITH NEW ORDERS FOR TRANSFER TO ER AFTER NSS 1 LITER ID ADMIN..MESSAGE LE FT TO PT'S MOTHER.BURR MACHINE OPERATOR AWARE.NURSING SATURATION DIVER AWARE,ER NURSE KAREN WAS NOTIFIED AND REPORT WAS GIVEN.
[2020-01-19] MEDS ORDERED: IV NS 1000 ML 1,000 ML IV ONE (09:15)
--- NOTE | 2020-01-19 09:15 | NUR ---
RT. HAND PERIPHERAL LINE # 22 STARTED AT FIRST ATTEMPT WITH GOOD BLOOD RETURN.
--- NOTE | 2020-01-19 09:24 | NUR ---
NSS IV ADM. NOW.
[2020-01-19] MEDS: HYDROGEN PEROXIDE 3% 118 ML BOTTLE TP SCH (09:25)
[2020-01-19] MEDS: Z GUARD REMEDY PASTE TP SCH (09:30)
[2020-01-19] MEDS: KETOCONAZOLE 2% CREAM 30 GM TUBE TP SCH (09:30)
--- NOTE | 2020-01-19 09:50 | NUR ---
PT. TRANSFERED WITH RT KEVIN AND PT. RECEIVED BY ER NURSE KAREN,AWAKE WITH IVF NSS RUNNING LATEST TEMP 102.7 AT THIS TIME.
--- NOTE | 2020-01-19 09:59 | NUR ---
PT'S MOTHER RETURNED CALLED BACK AND AWARE OF PT'S CONDITION AND IN AGREEMENT WITH TRANSFER.PT. WAS TRANSFER AT THIS TIME TEMP. 102.2 AT THIS TIME(TYLENOL WAS GIVEN AT 0800) IV NSS STILL RUNNING ,PT. AWAKE ,ABLE TO MAKE EYE CONTACT,NO FACIAL GRIMACING ,O2 SAT 94% WITH FIO2 28%,SKIN DRY AND WARM TO TOUCH GOOD CAPILLAR REFILL,,ASSISTED BY RT DURING TRANSFER AND RECEIVED BY SOCIAL RESEARCH ASSISTANT NURSE JONES AND LATEST REPORT GIVEN TO HIM
[2020-01-19] MEDS ORDERED: PIPERACILLIN/TAZOBACTAM/D5W 3.375 G in PREMIXED 1 EACH IV SCH (10:00)
[2020-01-19] MEDS ORDERED: AZTREONAM 1 G in IV NORMAL SALINE 50 ML IV SCH (10:00)
[2020-01-19] MEDS ORDERED: KETO15CR2 TP (10:56)
[2020-01-19] MEDS ORDERED: LACT-209 GT (10:56)
[2020-01-19] MEDS ORDERED: [UNRECOGNIZED DRUG - CODE] TP (10:56)
[2020-01-19] MEDS ORDERED: [UNRECOGNIZED DRUG - CODE] PO (10:56)
[2020-01-19] MEDS ORDERED: WHEA1POW6 GT (10:56)
[2020-01-19] MEDS ORDERED: PIPE3.379 IV (10:56)
== END 2020-01-19 11:57 | disposition short-term general hospital (02) | DRG 189 ==
LOC: SA 14:21
PROVIDERS: ADMIT Internal Medicine; ATTEND Internal Medicine Pulmonary Disease
DX: J96.11 Chronic respiratory failure with hypoxia (principal); A41.9 Sepsis, unspecified organism; R65.21 Severe sepsis with septic shock; G93.1 Anoxic brain damage, not elsewhere classified; J98.11 Atelectasis; N39.0 Urinary tract infection, site not specified; N17.9 Acute kidney failure, unspecified; Z66 Do not resuscitate; Z93.0 Tracheostomy status; K21.9 Gastro-esophageal reflux disease without esophagitis; Z86.74 Personal history of sudden cardiac arrest; E78.5 Hyperlipidemia, unspecified; L73.9 Follicular disorder, unspecified; Z93.1 Gastrostomy status; R13.10 Dysphagia, unspecified; G40.909 Epilepsy, unspecified, not intractable, without status epilepticus; G93.89 Other specified disorders of brain; I10 Essential (primary) hypertension; I95.89 Other hypotension; N20.0 Calculus of kidney; N21.0 Calculus in bladder; N35.919 Unspecified urethral stricture, male, unspecified site; Z87.440 Personal history of urinary (tract) infections; Z88.1 Allergy status to other antibiotic agents; R16.2 Hepatomegaly with splenomegaly, not elsewhere classified; R23.4 Changes in skin texture; L30.9 Dermatitis, unspecified; N35.819 Other urethral stricture, male, unspecified site; D64.9 Anemia, unspecified
CPT/HCPCS: 36415; 71045; 80164; 80184; 83605; 85025; 87040; 87077; 94640; A4663; C1758; J0692; J1885; J2543; J3370; J3490; J3590; J7030; J7060; U0003-CS

== ENCOUNTER 2020-01-19 09:55 | Inpatient (IN) | payer OTHER ==
[2020-01-19] VITALS (46 sets, daily range): BP systolic 50–147; BP diastolic 17–82
[~2020-01-19] VITALS: Ht 182.9 cm; Wt 112.5 kg
--- NOTE | 2020-01-19 10:05 | NUR ---
Dr Farias at the bedside for MSE.
--- NOTE | 2020-01-19 10:10 | NUR ---
heating repair technician unable to draw blood on pt, DR Farias aware.
[2020-01-19] MEDS ORDERED: CEFTRIAXONE 1 G in IV DEXTROSE 5% 50 ML IV ONE (10:15)
[2020-01-19] MEDS ORDERED: ACETAMINOPHEN 650 MG SUPP.RECT RC ONE ×2 (10:15→10:17)
[2020-01-19] MEDS ORDERED: IV NORMAL SALINE 1000 ML BAG IV ONE (10:15)
[2020-01-19] MEDS ORDERED: CEFTRIAXONE /D5W 50ML IVPB **ER PYXIS IV ONE (10:17)
--- NOTE | 2020-01-19 10:45 | NUR ---
Notified nursing [employer] supervisor regarding needing a PICC line for pt, per ER MD request.
[2020-01-19] MEDS ORDERED: WHEA1POW6 GT (10:56)
[2020-01-19] MEDS ORDERED: KETO15CR2 TP (10:56)
[2020-01-19] MEDS ORDERED: PIPE3.379 IV (10:56)
[2020-01-19] MEDS ORDERED: [UNRECOGNIZED DRUG - CODE] TP (10:56)
[2020-01-19] MEDS ORDERED: [UNRECOGNIZED DRUG - CODE] PO (10:56)
[2020-01-19] MEDS ORDERED: LACT-209 GT (10:56)
[2020-01-19 11:07] LABS: *BILIRUBIN,URIN NEGATIVE (NEGATIVE); *BLOOD, URINE 3+ (NEGATIVE); *CLARITY,URINE CLOUDY (CLEAR); *COLOR,URINE Brown (YELLOW); *KETONES,URINE NEGATIVE (NEGATIVE); *UROBILINOGEN,URINE 0.2 E.U./dl (NORMAL); LEUKOCYTE ESTERASE ,URINE 2+ (NEGATIVE); NITRITE, URINE POSITIVE (NEGATIVE); PH,URINE 8.5 (5.0-8.0); UGLUCOSE NEGATIVE (NEGATIVE)
[2020-01-19] MEDS ORDERED: IPRATROPIUM BROMIDE 0.5 MG/2.5 ML NEBU NEB PRN (11:30)
[2020-01-19] MEDS ORDERED: ONDANSETRON 4 MG/2 ML VIAL IV PRN (11:30)
[2020-01-19] MEDS ORDERED: HYDROCODONE/APAP 5-325MG TABLET PO PRN (11:30)
[2020-01-19] MEDS ORDERED: MAGNESIUM HYDROXIDE 30 ML LIQUID UDC PO PRN (11:30)
--- NOTE | 2020-01-19 11:38 | NUR ---
Contacted Dr. Elizabeth in regards to patient status and admission BP, orders received to start neosynephrine.
[2020-01-19] MEDS: PHENYLEPHRINE IV 50 MG in IV NORMAL SALINE 245 ML IV PRN ×3 (12:12→21:01)
--- NOTE | 2020-01-19 12:12 | NUR ---
Neosynephrine started via peripheral line while waiting for PICC Team or Central line placement.
[2020-01-19] MEDS: PANTOPRAZOLE ORAL SUSPENSION 40 MG SUSPDR.PKT GT SCH (12:30)
[2020-01-19] MEDS ORDERED: ALBUTEROL SULFATE 1.25 MG/3 ML NEBU NEB PRN (12:30)
[2020-01-19] MEDS: ALBUTEROL SULFATE 1.25 MG/3 ML NEBU NEB SCH ×3 (12:30→19:28)
[2020-01-19] MEDS: IPRATROPIUM BROMIDE 0.5 MG/2.5 ML NEBU NEB SCH ×2 (12:42→19:28)
[2020-01-19] MEDS: BACLOFEN 20 MG TABLET GT SCH ×2 (13:00→21:22)
--- NOTE | 2020-01-19 13:00 | NUR ---
Dr Farias at bedside to put in a central line and was unsuccessful. Notified KLEVER, powerhouse mechanic supervisor and physician. Contacting PICC line team and anesthesia.
--- NOTE | 2020-01-19 13:28 | NUR ---
Chest xray performed to rule out pneumothorax.
[2020-01-19] MEDS: MEROPENEM 1 G in IV NORMAL SALINE 100 ML IV SCH ×2 (14:00→22:00)
[2020-01-19] MEDS ORDERED: MEROPENEM 0.5 G in IV NORMAL SALINE 50 ML IV SCH (14:00)
[2020-01-19 14:54] LABS: RBC,URINE 50-80 /HPF (0-3)
[2020-01-19 14:55] LABS: BACTERIA,URINE MODERATE /HPF (NONE SEEN); SQUAMOUS EPITHELIAL CELL,UR FEW /HPF (NONE SEEN); TRIPLE PHOSPHATE CRYSTAL,UR MODERATE /HPF (NONE SEEN)
[2020-01-19 15:06] LABS: BASOPHILS # (AUTO) 0.4 K/uL (0.0-8.0); BASOPHILS % (AUTO) 1.3 % (0.0-2.0); HEMATOCRIT 39.9 % (36.7-47.1); HEMOGLOBIN 12.8 g/dL (12.5-16.3); LYMPHOCYTES # (AUTO) 0.2 K/uL (20.0-40.0); LYMPHOCYTES % (AUTO) 0.6 % (20.5-51.5); MEAN CORPUSCULAR HEMOGLOBIN 30.3 uug (23.8-33.4); MEAN CORPUSCULAR HGB CONC 32 g/dL (32.5-36.3); MEAN CORPUSCULAR VOLUME 94.1 fL (73.0-96.2); MONOCYTES # (AUTO) 0.6 K/uL (2.0-10.0); MONOCYTES % (AUTO) 2.2 % (0.0-11.0); NEUTROPHILS # (AUTO) 26.6 K/uL (1.8-8.9); NEUTROPHILS % (AUTO) 95.9 % (38.5-71.5); PLATELET COUNT (AUTO) 170 K/uL (152-348); RED BLOOD CELL COUNT(AUTO) 4.24 MIL/uL (4.06-5.63); WHITE BLOOD COUNT (AUTO) 27.8 K/uL (3.6-10.2)
[2020-01-19 15:16] LABS: BILIRUBIN,TOTAL 1.1 mg/dL (0.2-1.0); CREATININE 1.6 mg/dL (0.6-1.3); POTASSIUM 4.2 mmol/L (3.5-5.1); TOTAL PROTEIN, SERUM 6.4 g/dL (6.4-8.2)
--- NOTE | 2020-01-19 15:30 | NUR ---
LACTIC ACID REPORTED TO DR AGUILAR, NEOSYNEPHRINE MAXED OUT AND ASKED FOR A SECOND PRESSOR, LEVOPHED ADDED, AND ONE LITER NS WIDE OPEN ORDERED, AND IV FLUIDS STARTED NS 100CC/HR CONTINUOUS.
[2020-01-19] MEDS ORDERED: IV NS 1000 ML 1,000 ML IV ONE (15:45)
[2020-01-19] MEDS: NOREPINEPHRINE BITARTRATE 8 MG in IV NORMAL SALINE 242 ML IV PRN ×2 (15:55→20:23)
[2020-01-19] MEDS: VALPROIC ACID 250 MG/5 ML LIQUID UDC GT SCH ×2 (16:01→21:58)
[2020-01-19] MEDS: IV NS 1000 ML 1,000 ML IV PRN (16:13)
[2020-01-19 18:12] LABS: ABG BASE EXCESS -6.2 mmol/L; ABG HCO3 16.9 mmol/L; ABG PCO2 27.7 mmHg (35.0-45.0); ABG PH 7.403 (7.350-7.450); ABG PO2 87.1 mmHg (75.0-100.0); ABG SITE LEFT RADIAL
--- NOTE | 2020-01-19 19:19 | NUR ---
PATIENT CONTINUES TO BE ON TRACH SHILEY 6, ON 3L TRACH MASK. SINUS TACHYCARDIA ON THE MONITOR. BP IS STABLE ON LEVOPHED 0.34 MCG/KG/MIN, AND NEOSYNEPHRINE 3MCG/KG/MIN. IVF INFUSING @ 100CC/HR NS. PATIENT IS CONTRACTED AND ON AIR MATTRESS. BED IN LOW POSITION, SIDE RAILS UP X2, PADDED SIDE RAILS.
[2020-01-19] MEDS: LINEZOLID IV 600 MG in PREMIXED 1 EACH IV SCH (19:52)
[2020-01-19] MEDS: ACETAMINOPHEN 325 MG TABLET PO PRN (20:00)
[2020-01-19] MEDS: OMEGA-3 FATTY ACIDS/FISH OIL CAPSULE GT SCH (21:22)
[2020-01-20] VITALS (96 sets, daily range): BP systolic 83–127; BP diastolic 32–78
[2020-01-20] MEDS: PHENYLEPHRINE IV 50 MG in IV NORMAL SALINE 245 ML IV PRN ×3 (00:33→07:25)
[2020-01-20] MEDS: ALBUTEROL SULFATE 1.25 MG/3 ML NEBU NEB SCH ×4 (01:07→20:15)
[2020-01-20] MEDS: IPRATROPIUM BROMIDE 0.5 MG/2.5 ML NEBU NEB SCH ×4 (01:07→20:15)
[2020-01-20] MEDS: ACETAMINOPHEN 325 MG TABLET PO PRN ×2 (02:08→18:22)
[2020-01-20 04:54] LABS: EOSINOPHILS % (AUTO) 0.1 % (0.0-7.0); HEMOGLOBIN 12.9 g/dL (12.5-16.3)
[2020-01-20 04:56] LABS: BASOPHILS # (AUTO) 0.3 K/uL (0.0-8.0); BASOPHILS % (AUTO) 0.8 % (0.0-2.0); HEMATOCRIT 38.6 % (36.7-47.1); LYMPHOCYTES # (AUTO) 0.5 K/uL (20.0-40.0); LYMPHOCYTES % (AUTO) 1.4 % (20.5-51.5); MEAN CORPUSCULAR HEMOGLOBIN 30.8 uug (23.8-33.4); MEAN CORPUSCULAR HGB CONC 33 g/dL (32.5-36.3); MEAN CORPUSCULAR VOLUME 92.3 fL (73.0-96.2); MONOCYTES # (AUTO) 1.7 K/uL (2.0-10.0); MONOCYTES % (AUTO) 4.8 % (0.0-11.0); NEUTROPHILS # (AUTO) 33.3 K/uL (1.8-8.9); NEUTROPHILS % (AUTO) 92.9 % (38.5-71.5); PLATELET COUNT (AUTO) 119 K/uL (152-348); RED BLOOD CELL COUNT(AUTO) 4.19 MIL/uL (4.06-5.63)
[2020-01-20 05:05] LABS: CREATININE 1.1 mg/dL (0.6-1.3); MAGNESIUM 1.5 mg/dL (1.8-2.4); PHOSPHOROUS 2.6 mg/dL (2.5-4.9); POTASSIUM 3.6 mmol/L (3.5-5.1)
[2020-01-20 05:10] LABS: WHITE BLOOD COUNT (AUTO) 35.9 K/uL (3.6-10.2)
[2020-01-20] MEDS: IV NS 1000 ML 1,000 ML IV PRN ×2 (05:36→17:47)
[2020-01-20] MEDS: MEROPENEM 1 G in IV NORMAL SALINE 100 ML IV SCH ×3 (06:07→21:21)
[2020-01-20] MEDS: PANTOPRAZOLE ORAL SUSPENSION 40 MG SUSPDR.PKT GT SCH (06:07)
[2020-01-20 06:21] LABS: ABG HCO3 18.2 mmol/L; ABG PCO2 32.2 mmHg (35.0-45.0); ABG PO2 124.1 mmHg (75.0-100.0); ABG SITE LEFT RADIAL; ABG TOTAL HEMOGLOBIN 13.4 G/dL (13.5-18.0); COHb 1.4 % (0.5-1.5); MetHb 0.3 % (0.0-1.5); O2Hb 97.2 % (94.0-97.0)
--- NOTE | 2020-01-20 07:15 | NUR ---
PATIENT RECEIVED ON TRACH SHILEY 6, ON 2L TRACH MASK. SINUS RHYTHM ON THE MONITOR. BP IS STABLE ON NEOSYNEPHRINE 2.8 MCG/KG/MIN. IVF INFUSING @ 100CC/HR NS. PATIENT IS CONTRACTED AND ON AIR MATTRESS AND COOLING BLANKET RECTAL TEMP 99.6. GASTRIC TUBE CLAMPED WITH NO RESIDUAL. SHEEHAN DRAINING YELLOW URINE. BED IN LOW POSITION, SIDE RAILS UP X2, PADDED SIDE RAILS. LABS REVIEWED.
[2020-01-20] MEDS: VALPROIC ACID 250 MG/5 ML LIQUID UDC GT SCH ×3 (07:25→21:21)
--- NOTE | 2020-01-20 08:30 | NUR ---
DR ALMAGUER IN UNIT TO ASSESS PATIENT, FULL REPORT GIVEN AND MEDICATIONS REVIEWED WITH DR. ALMAGUER FOR CONTINUATION.
[2020-01-20] MEDS: PHENOBARBITAL 32.4 MG TABLET GT SCH ×2 (09:08→16:28)
[2020-01-20] MEDS: BACLOFEN 20 MG TABLET GT SCH ×3 (09:08→20:47)
[2020-01-20] MEDS: LINEZOLID IV 600 MG in PREMIXED 1 EACH IV SCH ×2 (09:09→20:48)
[2020-01-20] MEDS: MAGNESIUM SULFATE/D5W 100 ML IV SCH ×2 (10:00→10:46)
[2020-01-20] MEDS: PHENYLEPHRINE IV 100 MG in IV NORMAL SALINE 240 ML IV PRN ×3 (10:46→18:16)
--- NOTE | 2020-01-20 12:00 | NUR ---
PATIENT SEEN BY SLY VERAS FOR DR RODARTE. FULL REPORT GIVEN. REVIEWED MEDS THAT NEED TO BE CONTINUED FROM SUBACUTE FOR FUNGAL INFECTION.
[2020-01-20 13:57] LABS: NEUTROPHILS % (MANUAL) 54 % (42-75)
[2020-01-20 13:58] LABS: BAND % (MANUAL) 18 % (0-10); LYMPHOCYTES % (MANUAL) 0 % (20-40); METAMYELOCYTES % 2 % (0-1); MONOCYTES % (MANUAL) 4 % (2-10); MYELOCYTES % 22 % (0-0)
[2020-01-20] MEDS: ACIDOPHILUS/BULGARICUS CHEW TAB GT SCH ×2 (14:01→21:20)
[2020-01-20] MEDS: PROTEIN SUPPLEMENT (PROSTAT) 30 ML LIQUID GT SCH (16:27)
[2020-01-20] MEDS: KETOCONAZOLE 2% CREAM 30 GM TUBE TP SCH ×2 (16:28→23:36)
[2020-01-20] MEDS: JEVITY 1.2 1000 ML LIQUID GT PRN (17:06)
--- NOTE | 2020-01-20 18:29 | NUR ---
Temp continues to rise despite being on cooling blanket. PRN Tylenol given as ordered.
--- NOTE | 2020-01-20 18:30 | NUR ---
patient continues to be on trach mask 3L with large amounts of thick white secretions, sinus tachycardia on the monitor. Gtube feeding stared at 4pm @30cc/hr, with a goal of 65cc/hr. Patient had one pasty bowel movement today. Patient is still on air mattress with cooling blanket. Frequent repositioning and heels offloaded.
--- NOTE | 2020-01-20 19:30 | NUR ---
Report received. Patient is a resident of subacute unit was evaluated in ER 01/19/20 due to hypotension and admitted to CCU DX: Septic Shock. Now on Neosynephrine drip for BP support via PICC line SHIVA. Patient contracted/rigid, eyes open, no tracking but with facial grimacing to suctioning. With good cough reflex. O2 3L via trache mask; sat 99-100%. Turned and repositioned. HOB elevated as BPs permit. With continuous GT feedings at 30 ml/H. Assessment completed. Addendum: 01/20/20 at 2322 by MARIO DUCKWORTH RN Amended: Links added. Addendum: 01/20/20 at 2322 by MARIO DUCKWORTH RN Amended: Links added. Addendum: 01/20/20 at 2323 by MARIO DUCKWORTH RN Amended: Links added. Addendum: 01/20/20 at 2323 by MARIO DUCKWORTH RN Amended: Links added. Addendum: 01/20/20 at 2323 by MARIO DUCKWORTH RN Amended: Links added. Addendum: 01/20/20 at 2323 by MARIO DUCKWORTH RN Amended: Links added. Addendum: 01/20/20 at 2323 by MARIO DUCKWORTH RN Amended: Links added. Addendum: 01/20/20 at 2324 by MARIO TAECHARATKIJ RN Amended: Links added. Addendum: 01/20/20 at 9220 by MARIO DUCKWORTH RN Amended: Links added.
[2020-01-20] MEDS: OMEGA-3 FATTY ACIDS/FISH OIL CAPSULE GT SCH (20:47)
[2020-01-20] MEDS: Z GUARD REMEDY PASTE 57 GM TUBE TOP PRN (21:54)
[2020-01-21] VITALS (96 sets, daily range): BP systolic 86–119; BP diastolic 48–73
[2020-01-21] MEDS: IPRATROPIUM BROMIDE 0.5 MG/2.5 ML NEBU NEB SCH ×4 (00:04→19:35)
[2020-01-21] MEDS: ALBUTEROL SULFATE 1.25 MG/3 ML NEBU NEB SCH ×4 (00:04→19:36)
[2020-01-21] MEDS: PHENYLEPHRINE IV 100 MG in IV NORMAL SALINE 240 ML IV PRN ×5 (00:45→20:04)
--- NOTE | 2020-01-21 01:30 | NUR ---
BPs below 90's systole. Neosynephrine drip titrated. See IV spread sheet for rates/dosages. Addendum: 01/21/20 at 0530 by MARIO DUCKWORTH RN Amended: Links added.
--- NOTE | 2020-01-21 04:00 | NUR ---
Neosynephrine drip titrated up; BPs monitored closely. Tolerating GT feedings; rate increased to 50 ml/H. Addendum: 01/21/20 at 0527 by MARIO DUCKWORTH RN Amended: Links added. Addendum: 01/21/20 at 0530 by MARIO DUCKWORTH RN Amended: Links added.
[2020-01-21 05:05] LABS: BASOPHILS # (AUTO) 0.1 K/uL (0.0-8.0); BASOPHILS % (AUTO) 0.3 % (0.0-2.0); EOSINOPHILS # (AUTO) 0.2 K/uL (0.0-0.7); HEMATOCRIT 37.9 % (36.7-47.1); HEMOGLOBIN 12.7 g/dL (12.5-16.3); LYMPHOCYTES # (AUTO) 0.7 K/uL (20.0-40.0); LYMPHOCYTES % (AUTO) 3.4 % (20.5-51.5); MEAN CORPUSCULAR HEMOGLOBIN 30.8 uug (23.8-33.4); MEAN CORPUSCULAR HGB CONC 34 g/dL (32.5-36.3); MONOCYTES % (AUTO) 4.8 % (0.0-11.0); NEUTROPHILS # (AUTO) 19.1 K/uL (1.8-8.9); NEUTROPHILS % (AUTO) 90.5 % (38.5-71.5); PLATELET COUNT (AUTO) 68 K/uL (152-348); RED BLOOD CELL COUNT(AUTO) 4.12 MIL/uL (4.06-5.63); WHITE BLOOD COUNT (AUTO) 21.2 K/uL (3.6-10.2)
[2020-01-21 05:09] LABS: CREATININE 0.8 mg/dL (0.6-1.3); MAGNESIUM 1.8 mg/dL (1.8-2.4); POTASSIUM 2.9 mmol/L (3.5-5.1)
[2020-01-21] MEDS: VALPROIC ACID 250 MG/5 ML LIQUID UDC GT SCH ×3 (05:35→21:38)
[2020-01-21] MEDS: MEROPENEM 1 G in IV NORMAL SALINE 100 ML IV SCH ×3 (05:36→21:38)
[2020-01-21] MEDS: PANTOPRAZOLE ORAL SUSPENSION 40 MG SUSPDR.PKT GT SCH (05:37)
[2020-01-21] MEDS: ACIDOPHILUS/BULGARICUS CHEW TAB GT SCH ×3 (05:37→21:38)
[2020-01-21] MEDS: POLYVINYL ALCOHOL OPHT DROPS 15 ML BOTTLE EACHEYE PRN (05:50)
[2020-01-21] MEDS: IV NS 1000 ML 1,000 ML IV PRN (06:10)
--- NOTE | 2020-01-21 06:39 | NUR ---
Status unchanged. Still on Neosynephrine drip for BP support. Recalculated to today's weight of 226 kmq=836.7 kg. No seizures all night. Remains on O2 3L by T-piece; saturations 96-100%. Tolerating GT feedings well, rate increased to 50 ml/H with goal of 65ml/H; off 5498-2830. Addendum: 01/21/20 at 0639 by MARIO DUCKWORTH RN Amended: Links added.
--- NOTE | 2020-01-21 07:30 | NUR ---
Pulmonary Services Dr. Bowser it the unit, full report given to Dr. Bowser. See order history for new orders. Dr. betancourt at bedside assessing patient.
[2020-01-21] MEDS ORDERED: POTASSIUM CHLORIDE 20 MEQ POWDER PACKET GT ONE (08:15)
[2020-01-21] MEDS: PHENOBARBITAL 32.4 MG TABLET GT SCH ×2 (08:28→17:19)
[2020-01-21] MEDS: BACLOFEN 20 MG TABLET GT SCH ×3 (08:28→20:13)
[2020-01-21] MEDS: LINEZOLID IV 600 MG in PREMIXED 1 EACH IV SCH ×2 (08:29→20:13)
[2020-01-21] MEDS: PROTEIN SUPPLEMENT (PROSTAT) 30 ML LIQUID GT SCH ×2 (08:29→17:19)
[2020-01-21] MEDS: ACETAMINOPHEN 325 MG TABLET PO PRN (08:29)
[2020-01-21] MEDS ORDERED: POTASSIUM PHOSPHATE MM 15 MMOL in IV NORMAL SALINE 250 ML IV ONE (09:00)
[2020-01-21] MEDS: NUTRISOURCE FIBER 4 GM PACKET GT SCH (09:14)
--- NOTE | 2020-01-21 09:30 | NUR ---
Attending Dr. Ivory in the unit, full report given to Dr. Edmonds. See order history for new orders. Dr Edmonds at bedside assessing patient.
[2020-01-21] MEDS: JEVITY 1.2 1000 ML LIQUID GT PRN ×2 (10:00→19:53)
[2020-01-21] MEDS ORDERED: IV NORMAL SALINE 500 ML IV ONE (12:15)
[2020-01-21] MEDS: KETOCONAZOLE 2% CREAM 30 GM TUBE TP SCH (12:25)
[2020-01-21 15:51] LABS: BAND % (MANUAL) 30 % (0-10); LYMPHOCYTES % (MANUAL) 3 % (20-40); METAMYELOCYTES % 24 % (0-1); MONOCYTES % (MANUAL) 7 % (2-10); MYELOCYTES % 4 % (0-0); NEUTROPHILS % (MANUAL) 32 % (42-75)
[2020-01-21] MEDS: MICAFUNGIN SODIUM 100 MG in IV NORMAL SALINE 100 ML IV SCH (18:21)
[2020-01-21] MEDS ORDERED: DEXTROSE 5% IV SCH (19:00)
[2020-01-21] MEDS ORDERED: GENTAMICIN SULFATE IV SCH (19:00)
--- NOTE | 2020-01-21 19:30 | NUR ---
Report received. Patient with eyes open, doesn't track and with contractures of all extremities. O2 3L by T piece via Trache. O2 saturations above 95%. On continuous Neosynephrine drip for BP support to PICC line SHIVA. Assessment completed. Addendum: 01/22/20 at 0720 by MARIO DUCKWORTH RN Amended: Links added.
[2020-01-21] MEDS: OMEGA-3 FATTY ACIDS/FISH OIL CAPSULE GT SCH (20:13)
[2020-01-22] VITALS (95 sets, daily range): BP systolic 69–118; BP diastolic 43–76
[2020-01-22] MEDS: KETOCONAZOLE 2% CREAM 30 GM TUBE TP SCH ×3 (00:18→23:51)
[2020-01-22] MEDS: POLYVINYL ALCOHOL OPHT DROPS 15 ML BOTTLE EACHEYE PRN ×3 (00:18→20:33)
[2020-01-22] MEDS: ALBUTEROL SULFATE 1.25 MG/3 ML NEBU NEB SCH ×4 (00:30→19:25)
[2020-01-22] MEDS: IPRATROPIUM BROMIDE 0.5 MG/2.5 ML NEBU NEB SCH ×4 (00:30→19:25)
[2020-01-22] MEDS: PHENYLEPHRINE IV 100 MG in IV NORMAL SALINE 240 ML IV PRN ×2 (03:02→13:13)
[2020-01-22] MEDS: IV NS 1000 ML 1,000 ML IV PRN (04:24)
[2020-01-22 05:02] LABS: BASOPHILS # (AUTO) 0.1 K/uL (0.0-8.0); BASOPHILS % (AUTO) 0.5 % (0.0-2.0); EOSINOPHILS % (AUTO) 0.1 % (0.0-7.0); HEMATOCRIT 37.5 % (36.7-47.1); HEMOGLOBIN 12.4 g/dL (12.5-16.3); LYMPHOCYTES # (AUTO) 0.9 K/uL (20.0-40.0); LYMPHOCYTES % (AUTO) 5.3 % (20.5-51.5); MEAN CORPUSCULAR HEMOGLOBIN 30.5 uug (23.8-33.4); MEAN CORPUSCULAR HGB CONC 33 g/dL (32.5-36.3); MEAN CORPUSCULAR VOLUME 92.2 fL (73.0-96.2); MONOCYTES # (AUTO) 0.9 K/uL (2.0-10.0); NEUTROPHILS # (AUTO) 15.6 K/uL (1.8-8.9); NEUTROPHILS % (AUTO) 89.1 % (38.5-71.5); PLATELET COUNT (AUTO) 64 K/uL (152-348); RED BLOOD CELL COUNT(AUTO) 4.07 MIL/uL (4.06-5.63); WHITE BLOOD COUNT (AUTO) 17.5 K/uL (3.6-10.2)
[2020-01-22 05:10] LABS: CREATININE 0.7 mg/dL (0.6-1.3); MAGNESIUM 1.7 mg/dL (1.8-2.4); PHOSPHOROUS 1.9 mg/dL (2.5-4.9); POTASSIUM 3.5 mmol/L (3.5-5.1)
[2020-01-22] MEDS: VALPROIC ACID 250 MG/5 ML LIQUID UDC GT SCH ×3 (05:25→21:10)
[2020-01-22] MEDS: MEROPENEM 1 G in IV NORMAL SALINE 100 ML IV SCH ×3 (05:26→21:11)
[2020-01-22] MEDS: ACIDOPHILUS/BULGARICUS CHEW TAB GT SCH ×3 (05:27→21:09)
[2020-01-22] MEDS: PANTOPRAZOLE ORAL SUSPENSION 40 MG SUSPDR.PKT GT SCH (05:27)
--- NOTE | 2020-01-22 06:33 | NUR ---
Condition unchanged. Remains on Neosynephrine drip to keep SBP above 90; now at 1.8 mcg/kg/min. O2 maintained at 3L via T piece; saturations above 95%. Requires frequent suctioning; with thick mcdaniel, pinkish secretions. Tolerating GT feedings at 65ml/H; off [id number]. Addendum: 01/22/20 at 632 by MARIO DUCKWORTH RN Amended: Links added. Addendum: 01/22/20 at 632 by MARIO DUCKWORTH RN Amended: Links added.
--- NOTE | 2020-01-22 07:54 | NUR ---
Pulmonary services Dr. Bowser in the unit, full report given to Dr. Bowser. See order history for new orders. Dr Bowser at bedside assessing patient.
[2020-01-22] MEDS: BACLOFEN 20 MG TABLET GT SCH ×3 (08:04→20:30)
[2020-01-22] MEDS: LINEZOLID IV 600 MG in PREMIXED 1 EACH IV SCH (08:05)
[2020-01-22] MEDS: NUTRISOURCE FIBER 4 GM PACKET GT SCH (08:05)
[2020-01-22] MEDS: PROTEIN SUPPLEMENT (PROSTAT) 30 ML LIQUID GT SCH ×2 (08:05→17:15)
[2020-01-22] MEDS: PHENOBARBITAL 32.4 MG TABLET GT SCH ×2 (08:05→17:15)
[2020-01-22] MEDS ORDERED: POTASSIUM PHOSPHATE MM 15 MMOL in IV NORMAL SALINE 250 ML IV ONE (08:30)
[2020-01-22] MEDS: MAGNESIUM SULFATE/D5W 100 ML IV SCH ×2 (08:44→09:48)
[2020-01-22] MEDS: JEVITY 1.2 1000 ML LIQUID GT PRN ×2 (10:00→22:46)
--- NOTE | 2020-01-22 11:36 | NUR ---
Attending Physician Dr. Edmonds in the unit, full report given. See order history for new orders. Dr. Edmonds at bedside assessing patient.
[2020-01-22] MEDS: MICAFUNGIN SODIUM 100 MG in IV NORMAL SALINE 100 ML IV SCH (18:03)
--- NOTE | 2020-01-22 19:30 | NUR ---
Report received. Patient awake, coughing productively, suctioned for large amounts of thick beige secretions from trache. O2 2L by T piece to trache Shiley#6. On continuous Neosynephrine drip at 0.6 mcg/kg/min via PICC line SHIVA. Assessment done; refer to ICU flow sheet for complete details. Addendum: 01/22/20 at 2146 by MARIO DUCKWORTH RN Amended: Links added. Addendum: 01/22/20 at 214 by MARIO DUCKWORTH RN Amended: Links added. Addendum: 01/22/20 at 2150 by MARIO DUCKWORTH RN Amended: Links added.
--- NOTE | 2020-01-22 19:45 | NUR ---
Neosynephrine drip titrated down; BPs monitored closely.
[2020-01-22] MEDS: OMEGA-3 FATTY ACIDS/FISH OIL CAPSULE GT SCH (20:30)
[2020-01-22] MEDS: Z GUARD REMEDY PASTE 57 GM TUBE TOP PRN (20:33)
--- NOTE | 2020-01-22 20:45 | NUR ---
Turned and repositioned; skin care provided. Neosynephrine drip turned off; will continue to monitor BPs. Addendum: 01/22/20 at 2150 by MARIO DUCKWORTH RN Amended: Links added.
[2020-01-22] MEDS: ACETAMINOPHEN 325 MG TABLET PO PRN (21:09)
[2020-01-23] VITALS (94 sets, daily range): BP systolic 78–121; BP diastolic 44–86
[2020-01-23] MEDS: IPRATROPIUM BROMIDE 0.5 MG/2.5 ML NEBU NEB SCH ×4 (00:30→21:06)
[2020-01-23] MEDS: ALBUTEROL SULFATE 1.25 MG/3 ML NEBU NEB SCH ×4 (00:30→20:30)
[2020-01-23] MEDS: IV NS 1000 ML 1,000 ML IV PRN (02:28)
[2020-01-23] MEDS: PHENYLEPHRINE IV 100 MG in IV NORMAL SALINE 240 ML IV PRN ×2 (03:18→09:55)
[2020-01-23 05:10] LABS: EOSINOPHILS # (AUTO) 0.2 K/uL (0.0-0.7); LYMPHOCYTES # (AUTO) 1.1 K/uL (20.0-40.0); MEAN CORPUSCULAR HEMOGLOBIN 30.4 uug (23.8-33.4); MEAN CORPUSCULAR HGB CONC 33 g/dL (32.5-36.3); MEAN CORPUSCULAR VOLUME 92.1 fL (73.0-96.2)
[2020-01-23] MEDS: ACIDOPHILUS/BULGARICUS CHEW TAB GT SCH ×3 (05:10→21:22)
[2020-01-23] MEDS: VALPROIC ACID 250 MG/5 ML LIQUID UDC GT SCH ×3 (05:10→21:25)
[2020-01-23] MEDS: PANTOPRAZOLE ORAL SUSPENSION 40 MG SUSPDR.PKT GT SCH (05:10)
[2020-01-23] MEDS: MEROPENEM 1 G in IV NORMAL SALINE 100 ML IV SCH ×3 (05:11→21:22)
[2020-01-23 05:12] LABS: BASOPHILS % (AUTO) 0.3 % (0.0-2.0); EOSINOPHILS % (AUTO) 1.8 % (0.0-7.0); HEMATOCRIT 34.3 % (36.7-47.1); HEMOGLOBIN 11.3 g/dL (12.5-16.3); LYMPHOCYTES % (AUTO) 8.9 % (20.5-51.5); MONOCYTES # (AUTO) 0.6 K/uL (2.0-10.0); MONOCYTES % (AUTO) 5.4 % (0.0-11.0); NEUTROPHILS # (AUTO) 9.9 K/uL (1.8-8.9); NEUTROPHILS % (AUTO) 83.6 % (38.5-71.5); RED BLOOD CELL COUNT(AUTO) 3.73 MIL/uL (4.06-5.63); WHITE BLOOD COUNT (AUTO) 11.8 K/uL (3.6-10.2)
[2020-01-23 05:21] LABS: CARBON DIOXIDE 27 mmol/L (21-32); CHLORIDE 109 mmol/L (98-107); CREATININE 0.5 mg/dL (0.6-1.3); GLUCOSE 138 mg/dL (74-106); MAGNESIUM 1.5 mg/dL (1.8-2.4); POTASSIUM 3.4 mmol/L (3.5-5.1); UREA NITROGEN, BLOOD 17 mg/dL (7-18)
[2020-01-23 05:39] LABS: PLATELET COUNT (AUTO) 48 K/uL (152-348)
--- NOTE | 2020-01-23 06:00 | NUR ---
Had another large semi soft brown BM. Cleaned; skin care provided.Coughing productively; with frothy white secretions. Addendum: 01/23/20 at 0653 by MARIO DUCKWORTH RN Amended: Links added. Addendum: 01/23/20 at 0656 by MARIO DUCKWORTH RN Amended: Links added.
--- NOTE | 2020-01-23 06:55 | NUR ---
O2 saturations maintaining above 94% on 2 L O2 via T piece. No neuro changes. Neosynephrine drip dc'd at 0645; BPs above 90 systole. Tolerating GT feedings at 65 ml/H; residuals 0-10 ml. Off [id number]. Low platelets called to Rosario Farias NP; no order. No active bleeding noted. Addendum: 01/23/20 at 0656 by MARIO DUCKWORTH RN Amended: Links added.
--- NOTE | 2020-01-23 08:00 | NUR ---
Nephrology service Dr. Chan in the unit, full report given. See order history for new orders. Dr. Chan at bedside assessing patient.
[2020-01-23] MEDS: BACLOFEN 20 MG TABLET GT SCH ×3 (08:27→21:23)
[2020-01-23] MEDS: NUTRISOURCE FIBER 4 GM PACKET GT SCH (08:27)
[2020-01-23] MEDS: PHENOBARBITAL 32.4 MG TABLET GT SCH ×2 (08:28→17:17)
[2020-01-23] MEDS: ACETAMINOPHEN 325 MG TABLET PO PRN (08:28)
[2020-01-23] MEDS: PROTEIN SUPPLEMENT (PROSTAT) 30 ML LIQUID GT SCH ×2 (08:28→17:17)
--- NOTE | 2020-01-23 09:30 | NUR ---
Pulmonary services Dr. Bowser in the unit, full report given to Dr. Bowser. See order history for new orders. Dr. Bowser at bedside assessing patient.
[2020-01-23] MEDS ORDERED: POTASSIUM CHLORIDE 20 MEQ POWDER PACKET GT ONE (09:45)
[2020-01-23] MEDS: MAGNESIUM SULFATE/D5W 100 ML IV SCH ×2 (09:55→11:03)
--- NOTE | 2020-01-23 09:55 | NUR ---
Attending Physician Dr. Joel in the unit, full report given. See order history for new orders. Dr. Joel at bedside assessing patient.
[2020-01-23] MEDS: JEVITY 1.2 1000 ML LIQUID GT PRN (10:00)
[2020-01-23] MEDS: KETOCONAZOLE 2% CREAM 30 GM TUBE TP SCH (13:13)
[2020-01-23 13:20] LABS: BAND % (MANUAL) 7 % (0-10); LYMPHOCYTES % (MANUAL) 8 % (20-40); MONOCYTES % (MANUAL) 5 % (2-10); NEUTROPHILS % (MANUAL) 78 % (42-75)
[2020-01-23 13:21] LABS: EOSINOPHILS % (MANUAL) 2 % (0-8)
[2020-01-23] MEDS: MICAFUNGIN SODIUM 100 MG in IV NORMAL SALINE 100 ML IV SCH (17:17)
--- NOTE | 2020-01-23 19:15 | NUR ---
received patient awake , , unable to follow command , no fever , t piece at 2 liters nc , SHIVA piccline , gt feeding jevity 1.2 at 65 ml , no residual , generalized swelling
[2020-01-23] MEDS: OMEGA-3 FATTY ACIDS/FISH OIL CAPSULE GT SCH (21:23)
--- NOTE | 2020-01-23 23:24 | NUR ---
Quin Weeks Addendum: 01/23/20 at 2324 mervin DIALLO RN Amended: Masoud duarte. Addendum: 01/23/20 at 2325 mervin DIALLO RN Amended: Masoud duarte. Addendum: 01/25/20 at 0453 mervin DIALLO RN wrong charting Addendum: 01/25/20 at 0455 by KANWAL DIALLO RN wrong entry
--- NOTE | 2020-01-23 23:26 | NUR ---
Micky, Quin Addendum: 01/23/20 at 2326 mervin DIALLO RN Amended: Masoud duarte. Addendum: 01/25/20 at 0452 mervin DIALLO RN wrong flakitaing Addendum: 01/25/20 at 0453 mervin DIALLO RN wrong charting
[2020-01-24] VITALS (65 sets, daily range): BP systolic 85–124; BP diastolic 44–73
--- NOTE | 2020-01-24 | NUR ---
NO SEIZURE AND FEVER NOTED , SUCTIONED WITH MODERATE AMOUNT OF WHITE SECRETIONS , GT FEEDING NO RESIDUAL
[2020-01-24] MEDS: IPRATROPIUM BROMIDE 0.5 MG/2.5 ML NEBU NEB SCH ×4 (00:17→20:07)
[2020-01-24] MEDS: ALBUTEROL SULFATE 1.25 MG/3 ML NEBU NEB SCH ×4 (00:18→20:07)
[2020-01-24] MEDS: KETOCONAZOLE 2% CREAM 30 GM TUBE TP SCH ×2 (00:54→12:42)
[2020-01-24 04:52] LABS: BASOPHILS % (AUTO) 0.2 % (0.0-2.0); EOSINOPHILS # (AUTO) 0.1 K/uL (0.0-0.7); EOSINOPHILS % (AUTO) 2.8 % (0.0-7.0); HEMATOCRIT 35.1 % (36.7-47.1); HEMOGLOBIN 11.6 g/dL (12.5-16.3); LYMPHOCYTES # (AUTO) 0.9 K/uL (20.0-40.0); MEAN CORPUSCULAR HEMOGLOBIN 30.6 uug (23.8-33.4); MEAN CORPUSCULAR HGB CONC 33 g/dL (32.5-36.3); MEAN CORPUSCULAR VOLUME 92.3 fL (73.0-96.2); MONOCYTES # (AUTO) 0.6 K/uL (2.0-10.0); MONOCYTES % (AUTO) 11.9 % (0.0-11.0); NEUTROPHILS # (AUTO) 3.5 K/uL (1.8-8.9); NEUTROPHILS % (AUTO) 68.1 % (38.5-71.5); PLATELET COUNT (AUTO) 53 K/uL (152-348); WHITE BLOOD COUNT (AUTO) 5.2 K/uL (3.6-10.2)
[2020-01-24 04:59] LABS: CARBON DIOXIDE 30 mmol/L (21-32); CHLORIDE 109 mmol/L (98-107); CREATININE 0.5 mg/dL (0.6-1.3); GLUCOSE 142 mg/dL (74-106); MAGNESIUM 1.5 mg/dL (1.8-2.4); PHOSPHOROUS 3.3 mg/dL (2.5-4.9); UREA NITROGEN, BLOOD 13 mg/dL (7-18)
[2020-01-24] MEDS: MEROPENEM 1 G in IV NORMAL SALINE 100 ML IV SCH ×3 (05:19→22:13)
[2020-01-24] MEDS: VALPROIC ACID 250 MG/5 ML LIQUID UDC GT SCH ×3 (05:19→22:13)
[2020-01-24] MEDS: PANTOPRAZOLE ORAL SUSPENSION 40 MG SUSPDR.PKT GT SCH (05:21)
[2020-01-24] MEDS: ACIDOPHILUS/BULGARICUS CHEW TAB GT SCH ×3 (05:21→22:14)
--- NOTE | 2020-01-24 06:00 | NUR ---
no fever , no seizure noted , open eyes spontaneously , unable to comprehend upper and lower extremities contracted and generalized swelling , non labored on t - piece 2 liters , gt feeding held as per order , no residual
--- NOTE | 2020-01-24 08:00 | NUR ---
Report received.Pt remains unresponsive with eye open.No s/s of pain,discomfort.No seizure activity.Pt remains on Neosenephrine gtt to support BP. Seen,examined by .
[2020-01-24] MEDS: MAGNESIUM SULFATE/D5W 100 ML IV SCH ×2 (09:31→10:19)
[2020-01-24] MEDS: PHENOBARBITAL 32.4 MG TABLET GT SCH ×2 (09:37→18:08)
[2020-01-24] MEDS: BACLOFEN 20 MG TABLET GT SCH ×3 (09:40→20:34)
[2020-01-24] MEDS: NUTRISOURCE FIBER 4 GM PACKET GT SCH (09:40)
[2020-01-24] MEDS: PROTEIN SUPPLEMENT (PROSTAT) 30 ML LIQUID GT SCH ×2 (09:41→18:09)
--- NOTE | 2020-01-24 15:00 | NUR ---
Seen,examined by .Report given.
[2020-01-24] MEDS: MICAFUNGIN SODIUM 100 MG in IV NORMAL SALINE 100 ML IV SCH (18:06)
--- NOTE | 2020-01-24 18:53 | NUR ---
Pt appears comfortable.Off Neosenephrine gtt.Will continue to monitor.
--- NOTE | 2020-01-24 19:10 | NUR ---
received report from Tanvi , patient is awake , unable to follow command , low grade fever of 99.0 , gt feeding of jevity 1.2 at 65 ml , no residual , , off neosynephrine , Jeremiah picc line , intact , T piece , suctioned with moderate amount of white secretions 2 liters , maguire intact
[2020-01-24] MEDS: OMEGA-3 FATTY ACIDS/FISH OIL CAPSULE GT SCH (20:34)
--- NOTE | 2020-01-24 22:16 | NUR ---
patient will reponsds to antibiotics Addendum: 01/24/20 at 2216 by KANWAL DIALLO RN Amended: Masoud added. Addendum: 01/24/20 at 2217 by KANWAL DIALLO RN Amended: Masoud duarte.
--- NOTE | 2020-01-24 22:17 | NUR ---
patient has been off neosynephrine since 4pm Addendum: 01/24/20 at 2217 by KANWAL DIALLO RN Amended: Links added.
--- NOTE | 2020-01-24 22:19 | NUR ---
lab works daily and being corrected if necessary , today magnesium was given 2 gm Addendum: 01/24/20 at 2219 by KANWAL DIALLO RN Amended: Links added.
--- NOTE | 2020-01-24 22:30 | NUR ---
patient is currently on jevity 1. 2 at 65 ml , no residual Addendum: 01/24/20 at 2230 by KANWAL DIALLO RN Amended: Links added.
[2020-01-25] VITALS (24 sets, daily range): BP systolic 86–140; BP diastolic 50–91
[2020-01-25] MEDS: IPRATROPIUM BROMIDE 0.5 MG/2.5 ML NEBU NEB SCH ×4 (00:24→20:26)
[2020-01-25] MEDS: ALBUTEROL SULFATE 1.25 MG/3 ML NEBU NEB SCH ×4 (00:24→20:26)
[2020-01-25] MEDS: KETOCONAZOLE 2% CREAM 30 GM TUBE TP SCH ×2 (00:48→13:10)
[2020-01-25 04:56] LABS: BASOPHILS % (AUTO) 0.3 % (0.0-2.0); EOSINOPHILS # (AUTO) 0.2 K/uL (0.0-0.7); EOSINOPHILS % (AUTO) 2.4 % (0.0-7.0); HEMATOCRIT 34.1 % (36.7-47.1); HEMOGLOBIN 11.3 g/dL (12.5-16.3); LYMPHOCYTES # (AUTO) 0.7 K/uL (20.0-40.0); LYMPHOCYTES % (AUTO) 9.2 % (20.5-51.5); MEAN CORPUSCULAR HEMOGLOBIN 30.4 uug (23.8-33.4); MEAN CORPUSCULAR HGB CONC 33 g/dL (32.5-36.3); MEAN CORPUSCULAR VOLUME 91.4 fL (73.0-96.2); MONOCYTES # (AUTO) 0.5 K/uL (2.0-10.0); MONOCYTES % (AUTO) 7.2 % (0.0-11.0); NEUTROPHILS # (AUTO) 6.2 K/uL (1.8-8.9); NEUTROPHILS % (AUTO) 80.9 % (38.5-71.5); PLATELET COUNT (AUTO) 71 K/uL (152-348); RED BLOOD CELL COUNT(AUTO) 3.73 MIL/uL (4.06-5.63); WHITE BLOOD COUNT (AUTO) 7.6 K/uL (3.6-10.2)
[2020-01-25 05:01] LABS: CARBON DIOXIDE 30 mmol/L (21-32); CHLORIDE 106 mmol/L (98-107); CREATININE 0.5 mg/dL (0.6-1.3); GLUCOSE 133 mg/dL (74-106); MAGNESIUM 1.5 mg/dL (1.8-2.4); PHOSPHOROUS 3.3 mg/dL (2.5-4.9); UREA NITROGEN, BLOOD 10 mg/dL (7-18)
[2020-01-25] MEDS: MEROPENEM 1 G in IV NORMAL SALINE 100 ML IV SCH ×3 (05:30→21:32)
[2020-01-25] MEDS: VALPROIC ACID 250 MG/5 ML LIQUID UDC GT SCH ×3 (05:30→21:33)
[2020-01-25] MEDS: PANTOPRAZOLE ORAL SUSPENSION 40 MG SUSPDR.PKT GT SCH (05:32)
[2020-01-25] MEDS: ACIDOPHILUS/BULGARICUS CHEW TAB GT SCH ×3 (05:32→21:34)
--- NOTE | 2020-01-25 06:00 | NUR ---
suctioned with large amount of whitish thick secretions via trach , site cleansed and dressing changed , feeding held as per order of to run x 20 hours , no residual , no fever or seizure noted
[2020-01-25] MEDS: ACETAMINOPHEN 325 MG TABLET PO PRN (07:52)
[2020-01-25] MEDS: MAGNESIUM SULFATE/D5W 100 ML IV SCH ×4 (07:52→11:15)
[2020-01-25] MEDS: MAGNESIUM OXIDE 400 MG TABLET GT SCH (08:00)
[2020-01-25] MEDS: PHENOBARBITAL 32.4 MG TABLET GT SCH ×2 (08:00→17:10)
[2020-01-25] MEDS: NUTRISOURCE FIBER 4 GM PACKET GT SCH (08:00)
[2020-01-25] MEDS: BACLOFEN 20 MG TABLET GT SCH ×3 (08:00→21:32)
--- NOTE | 2020-01-25 08:00 | NUR ---
Pulmonary services Dr. Bowser in the unit, full report given. See order history for new orders. Dr. Bowser at the bedside assessing the patient.
[2020-01-25] MEDS: PROTEIN SUPPLEMENT (PROSTAT) 30 ML LIQUID GT SCH ×2 (08:01→17:10)
[2020-01-25] MEDS: JEVITY 1.2 1000 ML LIQUID GT PRN (10:05)
[2020-01-25] MEDS: MIDODRINE HCL 5 MG TABLET PO SCH ×2 (11:42→17:11)
[2020-01-25] MEDS ORDERED: MIDODRINE HCL 5 MG TABLET PO SCH (17:00)
[2020-01-25] MEDS: OMEGA-3 FATTY ACIDS/FISH OIL CAPSULE GT SCH (21:34)
[2020-01-25] MEDS ORDERED: IV NORMAL SALINE 250 ML IV PRN (22:00)
[2020-01-26] VITALS (16 sets, daily range): BP systolic 105–125; BP diastolic 57–83
[2020-01-26] MEDS: IPRATROPIUM BROMIDE 0.5 MG/2.5 ML NEBU NEB SCH ×3 (00:37→13:15)
[2020-01-26] MEDS: ALBUTEROL SULFATE 1.25 MG/3 ML NEBU NEB SCH ×3 (00:37→13:15)
[2020-01-26] MEDS: JEVITY 1.2 1000 ML LIQUID GT PRN ×2 (00:46→10:09)
[2020-01-26] MEDS: KETOCONAZOLE 2% CREAM 30 GM TUBE TP SCH ×2 (00:49→12:16)
[2020-01-26] MEDS: Z GUARD REMEDY PASTE 57 GM TUBE TOP PRN (04:49)
[2020-01-26] MEDS: PANTOPRAZOLE ORAL SUSPENSION 40 MG SUSPDR.PKT GT SCH (05:02)
[2020-01-26] MEDS: MEROPENEM 1 G in IV NORMAL SALINE 100 ML IV SCH ×2 (05:02→13:20)
[2020-01-26] MEDS: ACIDOPHILUS/BULGARICUS CHEW TAB GT SCH ×2 (05:02→13:19)
[2020-01-26] MEDS: VALPROIC ACID 250 MG/5 ML LIQUID UDC GT SCH ×2 (05:02→13:20)
[2020-01-26 05:08] LABS: BASOPHILS % (AUTO) 0.3 % (0.0-2.0); EOSINOPHILS # (AUTO) 0.5 K/uL (0.0-0.7); EOSINOPHILS % (AUTO) 7.5 % (0.0-7.0); HEMATOCRIT 30.5 % (36.7-47.1); HEMOGLOBIN 10.3 g/dL (12.5-16.3); LYMPHOCYTES # (AUTO) 1.1 K/uL (20.0-40.0); LYMPHOCYTES % (AUTO) 16.9 % (20.5-51.5); MEAN CORPUSCULAR HEMOGLOBIN 30.6 uug (23.8-33.4); MEAN CORPUSCULAR HGB CONC 34 g/dL (32.5-36.3); MEAN CORPUSCULAR VOLUME 91.2 fL (73.0-96.2); MONOCYTES # (AUTO) 0.7 K/uL (2.0-10.0); NEUTROPHILS # (AUTO) 4.1 K/uL (1.8-8.9); NEUTROPHILS % (AUTO) 64.3 % (38.5-71.5); PLATELET COUNT (AUTO) 101 K/uL (152-348); RED BLOOD CELL COUNT(AUTO) 3.35 MIL/uL (4.06-5.63); WHITE BLOOD COUNT (AUTO) 6.3 K/uL (3.6-10.2)
[2020-01-26 05:17] LABS: CARBON DIOXIDE 33 mmol/L (21-32); CHLORIDE 103 mmol/L (98-107); CREATININE 0.4 mg/dL (0.6-1.3); GLUCOSE 126 mg/dL (74-106); MAGNESIUM 1.7 mg/dL (1.8-2.4); PHOSPHOROUS 3.1 mg/dL (2.5-4.9); POTASSIUM 4.2 mmol/L (3.5-5.1); UREA NITROGEN, BLOOD 12 mg/dL (7-18)
--- NOTE | 2020-01-26 07:45 | NUR ---
Pulmonary services Dr. Bowser in the unit, full report given to Dr. Bowser. See order history for new orders. Dr. Bowser at bedside assessing patient.
[2020-01-26] MEDS: BACLOFEN 20 MG TABLET GT SCH ×2 (08:14→13:19)
[2020-01-26] MEDS: NUTRISOURCE FIBER 4 GM PACKET GT SCH (08:14)
[2020-01-26] MEDS: MIDODRINE HCL 5 MG TABLET PO SCH (08:14)
[2020-01-26] MEDS: PROTEIN SUPPLEMENT (PROSTAT) 30 ML LIQUID GT SCH (08:14)
[2020-01-26] MEDS: MAGNESIUM OXIDE 400 MG TABLET GT SCH (08:14)
[2020-01-26] MEDS: MAGNESIUM SULFATE/D5W 100 ML IV SCH ×2 (08:14→09:26)
[2020-01-26] MEDS: PHENOBARBITAL 32.4 MG TABLET GT SCH (08:14)
--- NOTE | 2020-01-26 08:55 | NUR ---
Nephrology services Dr. Chan in the unit, full report given to Dr. Chan. See order history for new orders. Dr. Chan at beside assessing patient.
--- NOTE | 2020-01-26 12:30 | NUR ---
Attending Dr. Wallis in the unit, full report given to Dr. Wallis. New orders for discharge back to subacute.
--- NOTE | 2020-01-26 15:30 | NUR ---
Report given to Raphael ZAVALA. Transferred patient to subacute without any complications.
== END 2020-01-26 15:30 | DRG 871 ==
LOC: ER 09:55 → CCU 11:57
PROVIDERS: ADMIT Internal Medicine
PROC: B548ZZA Ultrasonography of Superior Vena Cava, Guidance (ICD-10-PCS; principal; 2020-01-19)
PROC: 02HV33Z Insertion of Infusion Device into Superior Vena Cava, Percutaneous Approach (ICD-10-PCS; principal; 2020-01-19)
DX: A41.9 Sepsis, unspecified organism (principal); N17.0 Acute kidney failure with tubular necrosis; E43 Unspecified severe protein-calorie malnutrition; G92 Toxic encephalopathy; J96.21 Acute and chronic respiratory failure with hypoxia; R53.2 Functional quadriplegia; R65.21 Severe sepsis with septic shock; J15.6 Pneumonia due to other Gram-negative bacteria; N39.0 Urinary tract infection, site not specified; D68.69 Other thrombophilia; E87.2 Acidosis; G93.1 Anoxic brain damage, not elsewhere classified; R40.3 Persistent vegetative state; J98.11 Atelectasis; D63.8 Anemia in other chronic diseases classified elsewhere; D69.6 Thrombocytopenia, unspecified; E83.39 Other disorders of phosphorus metabolism; E83.42 Hypomagnesemia; E87.6 Hypokalemia; E87.70 Fluid overload, unspecified; G40.909 Epilepsy, unspecified, not intractable, without status epilepticus; Z86.74 Personal history of sudden cardiac arrest; Z66 Do not resuscitate; Z87.440 Personal history of urinary (tract) infections; Z93.1 Gastrostomy status; R13.10 Dysphagia, unspecified; Z87.442 Personal history of urinary calculi; L73.9 Follicular disorder, unspecified; I10 Essential (primary) hypertension; Z88.1 Allergy status to other antibiotic agents; E88.09 Other disorders of plasma-protein metabolism, not elsewhere classified; B96.4 Proteus (mirabilis) (morganii) as the cause of diseases classified elsewhere; Z93.0 Tracheostomy status; I95.9 Hypotension, unspecified; M24.852 Other specific joint derangements of left hip, not elsewhere classified; J98.6 Disorders of diaphragm
CPT/HCPCS: 36415; 36600; 70030-TC; 71045; 83605; 83735; 84100; 85025; 85730; 86140; 87040; 87070; 87077; 87086; 93005; 94640; A4663; G0378; J0696; J1580; J2020; J2185; J2248; J2370; J3475; J3490; J3590; J7030; J7050; J7060; U0003-CS

== ENCOUNTER 2020-05-23 13:05 | Inpatient (IN) | payer OTHER ==
[~2020-05-23] VITALS: Ht 182.9 cm; Wt 86.2 kg
[2020-05-23 12:30] VITALS: BP 102/61
--- NOTE | 2020-05-23 12:30 | NUR ---
OS SAT 100% AT THIS TIME ,RT EDDIE ASSISTED PT. WITH TRANSPORTATION .
--- NOTE | 2020-05-23 12:30 | NUR ---
PT. ADMITTED TO SUB ACUTE UNIT AT THIS TIME NURSING INTERNAL COMBUSTION ENGINE SUBASSEMBLER MARCELLA.PET RESORT CONCIERGE AWARE OF ADMISSION WITH MESSAGE. AWARE..REPORT OBTAINED FROM HOMER FROM 3RD FLOOR.RECEIVED AWAKE RESPONSIVE TO VERBAL AND TOUCH STIMULI,ABLE TO KEEP EYE CONTACT AT TIMES.ON FIO2 40% VIA T TUBE AND V/S FOLLOW:TEMP. 96.8 F,HR 82X',RR 20 X',B/P 102/61,P/A 0/10,O2 SAT. ,NO S/S OF RESPIRATORY DISTRESS NOTED.SKIN DRY AND WARM TO TOUCH. PERIPHERAL LINE NOTED ON RT HAND #22 AND LEFT FOOT RED.WARM TO TOUCH AND WITH EDEMA AND REMOVED AT THIS TIME.LEFT ARM WITH YELLOW DISCOLORATION .PT'S MOTHER MICA WAS NOTIFIED.F/C 18X 10ML.GT 16X6 ML. CHRONIC NECK FOLLICULITIS NOTED.
[~2020-05-23 13:05] MED LIST changes: -BISA10SU61 RC; -CEFE1PIG3 IV; -CHLO25TA13 GT; -CHLORHEXIDINE TOP; +COD56OIN TP; -DOCU-141 GT; -ENOX40DI SQ; -GEMF600T GT; -GUAR1PAC4 GT; +LACT-209 GT; +MERO500V21 IV; +MIDO5TAB5 GT; +OMEP20TA5 GT; -PANT40TA2 GT; -PROSTAT GT; -VANC1PLA9 IV; -VITAMIN A&D OINT TOP; +WHEA1POW6 GT
--- NOTE | 2020-05-23 13:50 | NUR ---
MEDICAL ORDERS VERIFIED WITH DR. PLAZA AND CARRIED OUT.
[2020-05-23 14:03] VITALS: BP 102/61
[2020-05-23] MEDS ORDERED: Z GUARD REMEDY PASTE 57 GM TUBE TOP PRN (16:15)
[2020-05-23] MEDS ORDERED: ACETAMINOPHEN 650 MG/20 ML UDC- SA PATIENTS-FEVER ONLY GT PRN (16:15)
[2020-05-23] MEDS ORDERED: ACETAMINOPHEN 650 MG/20 ML UDC- SA PATIENTS-PAIN ONLY GT PRN (16:15)
[2020-05-23] MEDS ORDERED: ONDANSETRON HCL 4 MG/5 ML UDC ORAL SOL GT PRN (16:15)
[2020-05-23] MEDS ORDERED: ALBUTEROL SULFATE 2.5 MG/3 ML NEBU NEB PRN (16:30)
[2020-05-23] MEDS ORDERED: MIDODRINE HCL 5 MG TABLET GT PRN (16:30)
[2020-05-23] MEDS ORDERED: IPRATROPIUM BROMIDE 0.5 MG/2.5 ML NEBU NEB PRN (16:30)
[2020-05-23] MEDS ORDERED: HYDROGEN PEROXIDE 3% 118 ML BOTTLE TP PRN (16:30)
[2020-05-23] MEDS: POLYVINYL ALCOHOL OPHT DROPS 15 ML BOTTLE OP SCH ×2 (16:34→21:56)
[2020-05-23] MEDS: VALPROIC ACID 250 MG/5 ML LIQUID UDC GT SCH ×2 (16:34→21:57)
[2020-05-23 16:47] VITALS: BP 102/61
[2020-05-23] MEDS: MEROPENEM 0.5 G in IV NORMAL SALINE 50 ML IV SCH (17:06)
--- NOTE | 2020-05-23 19:06 | NUR ---
COVID19 TEST DONE PER ADMISSION PROTOCOL ,PT. REMAINS ON PUI ISOLATION PRECAUTIONS.
[2020-05-23 19:15] VITALS: BP 101/55
[2020-05-23] MEDS: IPRATROPIUM BROMIDE 0.5 MG/2.5 ML NEBU NEB SCH (19:28)
[2020-05-23] MEDS: ALBUTEROL SULFATE 2.5 MG/3 ML NEBU NEB SCH (19:28)
[2020-05-23] MEDS: HYDROGEN PEROXIDE 3% 118 ML BOTTLE TP SCH (21:03)
[2020-05-23] MEDS ORDERED: PHENOBARBITAL 32.4 MG TABLET ONE (21:21)
[2020-05-23] MEDS: BACLOFEN 20 MG TABLET GT SCH (21:55)
[2020-05-23] MEDS: OMEGA-3 FATTY ACIDS/FISH OIL CAPSULE GT SCH (21:55)
[2020-05-23] MEDS: BENZOYL PEROXIDE 10% GEL 60 GM TUBE TP SCH (21:56)
[2020-05-23] MEDS: Z GUARD REMEDY PASTE 57 GM TUBE TOP SCH (21:56)
[2020-05-23] MEDS: PHENOBARBITAL 32.4 MG TABLET GT SCH (21:56)
[2020-05-23] MEDS: NEOMY/BACITRA/POLYMYXIN B OINT UD PACKET TP SCH (21:56)
[2020-05-23] MEDS: ACIDOPHILUS/BULGARICUS CHEW TAB GT SCH (21:57)
[2020-05-24] MEDS: ALBUTEROL SULFATE 2.5 MG/3 ML NEBU NEB SCH ×4 (00:58→19:55)
[2020-05-24] MEDS: IPRATROPIUM BROMIDE 0.5 MG/2.5 ML NEBU NEB SCH ×4 (00:58→19:55)
[2020-05-24] MEDS: MEROPENEM 0.5 G in IV NORMAL SALINE 50 ML IV SCH ×3 (01:17→17:08)
[2020-05-24] MEDS: VALPROIC ACID 250 MG/5 ML LIQUID UDC GT SCH ×3 (05:55→22:27)
[2020-05-24] MEDS: OMEPRAZOLE 20 MG CAPSULE.DR GT SCH (05:55)
[2020-05-24] MEDS: ACIDOPHILUS/BULGARICUS CHEW TAB GT SCH ×3 (05:55→22:27)
[2020-05-24] MEDS: JEVITY 1.2 1000 ML LIQUID GT PRN (05:56)
[2020-05-24 07:36] VITALS: BP 94/59
[2020-05-24] MEDS: PHENOBARBITAL 32.4 MG TABLET GT SCH ×2 (08:21→20:55)
[2020-05-24] MEDS: Z GUARD REMEDY PASTE 57 GM TUBE TOP SCH ×2 (08:21→20:55)
[2020-05-24] MEDS: BENZOYL PEROXIDE 10% GEL 60 GM TUBE TP SCH ×2 (08:21→20:55)
[2020-05-24] MEDS: POLYVINYL ALCOHOL OPHT DROPS 15 ML BOTTLE OP SCH ×4 (08:21→20:55)
[2020-05-24] MEDS: BACLOFEN 20 MG TABLET GT SCH ×3 (08:21→20:55)
[2020-05-24] MEDS: NUTRISOURCE FIBER 4 GM PACKET GT SCH (08:21)
[2020-05-24] MEDS: NEOMY/BACITRA/POLYMYXIN B OINT UD PACKET TP SCH ×2 (09:00→20:55)
[2020-05-24] MEDS ORDERED: PHENOBARBITAL 32.4 MG TABLET PO ONE ×4 (09:00→21:00)
--- NOTE | 2020-05-24 09:36 | NUR ---
PT. WAS SEEN BY PT AND WITH NEW ORDERS CARRIED OUT.
[2020-05-24] MEDS: HYDROGEN PEROXIDE 3% 118 ML BOTTLE TP SCH ×2 (09:46→19:55)
--- NOTE | 2020-05-24 10:09 | NUR ---
PT. WAS EVALUATED BY OT AND WITH NEW ORDERS CARRIED OUT.
--- NOTE | 2020-05-24 11:40 | NUR ---
D[employer] Informatics Specialist Initial Assessment: This SW completed patient's psychosocial assessment. Patient is non-communicative, and therefore this SW is unable to gather information from the patient. Patient is known to this SW from previous admission, patient has been a resident of [facility] since 2003. Information gathered from patient's medical records and patient's mother. Patient required acute hospitalization 05/18/20-05/23/20, and was re-admitted to Subacute on 05/23/2020. Patient's mother, Abby Nieto, is patient's conservator. This SW will mail patient's admission paperwork, including Preferred Intensity of Care to patient's mother for review and signatures.
--- NOTE | 2020-05-24 15:00 | NUR ---
DR. PLAZA AWARE OF NEGATIVE VENOUS DOPPLER LEFT LOWER EXT. AND NNO.
--- NOTE | 2020-05-24 19:00 | NUR ---
NEW ORDER FOR MRSA NARES FOR SURVEILLANCE FROM DR. PLAZA ENDORSED TO NOC SHIFT.TO CARRY OUT.
[2020-05-24 20:00] VITALS: BP 104/68
[2020-05-24] MEDS: OMEGA-3 FATTY ACIDS/FISH OIL CAPSULE GT SCH (20:55)
[2020-05-25] MEDS: ALBUTEROL SULFATE 2.5 MG/3 ML NEBU NEB SCH ×4 (00:40→18:55)
[2020-05-25] MEDS: IPRATROPIUM BROMIDE 0.5 MG/2.5 ML NEBU NEB SCH ×4 (00:40→18:55)
[2020-05-25] MEDS: ACIDOPHILUS/BULGARICUS CHEW TAB GT SCH ×3 (05:51→22:00)
[2020-05-25] MEDS: OMEPRAZOLE 20 MG CAPSULE.DR GT SCH (05:51)
[2020-05-25] MEDS: VALPROIC ACID 250 MG/5 ML LIQUID UDC GT SCH ×3 (05:51→22:00)
[2020-05-25] MEDS: HYDROGEN PEROXIDE 3% 118 ML BOTTLE TP SCH ×2 (07:25→20:52)
[2020-05-25 07:36] VITALS: BP 111/67
[2020-05-25] MEDS: PHENOBARBITAL 32.4 MG TABLET GT SCH ×2 (08:15→20:35)
[2020-05-25] MEDS: BACLOFEN 20 MG TABLET GT SCH ×3 (08:15→20:35)
[2020-05-25] MEDS: POLYVINYL ALCOHOL OPHT DROPS 15 ML BOTTLE OP SCH ×4 (08:15→20:36)
[2020-05-25] MEDS ORDERED: PHENOBARBITAL 32.4 MG TABLET PO ONE ×4 (08:15→21:00)
[2020-05-25] MEDS: NUTRISOURCE FIBER 4 GM PACKET GT SCH (08:15)
[2020-05-25] MEDS: Z GUARD REMEDY PASTE 57 GM TUBE TOP SCH ×2 (08:16→20:36)
[2020-05-25] MEDS: BENZOYL PEROXIDE 10% GEL 60 GM TUBE TP SCH ×4 (08:16→20:36)
[2020-05-25] MEDS: NEOMY/BACITRA/POLYMYXIN B OINT UD PACKET TP SCH (08:17)
--- NOTE | 2020-05-25 09:00 | NUR ---
sEEN AND EXAMINED BY DR SLATER LIVERY CAR DRIVER WITH NEW ORDERS NOTED FOR THE R EAR FOLLICULITIS ,ACNE,.
[2020-05-25] MEDS: DOXYCYCLINE HYCLATE 100 MG TABLET GT SCH ×2 (09:56→16:49)
--- NOTE | 2020-05-25 11:13 | NUR ---
MESSAGE LEFT TO PT'S MOTHER RE: NEGATIVE COVID 19 TEST RESULT.
--- NOTE | 2020-05-25 11:37 | NUR ---
WOUND CARE CONSULT: PT SEEN FOR LEFT ANKLE INTACT BLISTER, PRESENT ON ADMISSION. WOUND IS 1CM X 1CM X 0, NO DRAINAGE OR ERYTHEMA NOTED. RECOMMEND CONTINUE PRESENT TREATMENT WITH ANTIBIOTIC OINTMENT AND COVER WITH FOAM DRESSING. DR MARR TO SEE PT PER ASSISTANT STORE MANAGER TRAINEE. WILL SEE PRN.
--- NOTE | 2020-05-25 11:40 | NUR ---
SEEN AND EXAMINED BY HILLARY WOUND GLASS BLOCK INSTALLER FOR L ANKLE WOUND,NEW ORDERS NOTED.
[2020-05-25] MEDS: JEVITY 1.2 1000 ML LIQUID GT PRN (14:26)
--- NOTE | 2020-05-25 15:30 | NUR ---
Seen and examined by Dr Pena with new orders noted and carried out.
[2020-05-25 16:37] LABS: BASOPHILS # (AUTO) 0.1 K/uL (0.0-8.0); EOSINOPHILS # (AUTO) 0.2 K/uL (0.0-0.7); EOSINOPHILS % (AUTO) 4.2 % (0.0-7.0); HEMOGLOBIN 11.7 g/dL (12.5-16.3); LYMPHOCYTES # (AUTO) 1.1 K/uL (20.0-40.0); LYMPHOCYTES % (AUTO) 21.5 % (20.5-51.5); MEAN CORPUSCULAR HEMOGLOBIN 30.2 uug (23.8-33.4); MEAN CORPUSCULAR HGB CONC 33 g/dL (32.5-36.3); MEAN CORPUSCULAR VOLUME 90.6 fL (73.0-96.2); MONOCYTES # (AUTO) 0.4 K/uL (2.0-10.0); MONOCYTES % (AUTO) 7.9 % (0.0-11.0); NEUTROPHILS # (AUTO) 3.3 K/uL (1.8-8.9); NEUTROPHILS % (AUTO) 65.4 % (38.5-71.5); PLATELET COUNT (AUTO) 291 K/uL (152-348); RED BLOOD CELL COUNT(AUTO) 3.86 MIL/uL (4.06-5.63)
[2020-05-25 16:44] LABS: CARBON DIOXIDE 29 mmol/L (21-32); CHLORIDE 102 mmol/L (98-107); CREATININE 0.3 mg/dL (0.6-1.3); GLUCOSE 131 mg/dL (74-106); POTASSIUM 4.3 mmol/L (3.5-5.1); UREA NITROGEN, BLOOD 11 mg/dL (7-18)
--- NOTE | 2020-05-25 16:57 | NUR ---
Pt's mom notified regarding Covid 19 negative,notified regarding the new orders from Dr Szymanski and the new orders from Ximena,wound professional healthcare representative.She agreed with the plan of care.
[2020-05-25] MEDS: ENOXAPARIN SODIUM 40 MG/0.4 ML DISP.SYRIN SQ SCH (17:30)
[2020-05-25 19:48] VITALS: BP 134/76
[2020-05-25] MEDS: OMEGA-3 FATTY ACIDS/FISH OIL CAPSULE GT SCH (20:35)
--- NOTE | 2020-05-25 22:49 | NUR ---
Patient is afebrile, trach is intact and patent, no signs of any distress noted at this time. On Doxycycline via gt BID X 10 days for Folliculitis, Acne no adverse reactions noted. On Benzoyl peroxide 10% gel BID to ear for folliculitis, Acne. Gt feeding tolerating well, no vomiting or residual noted. On phenobarbital and Valproic acid via gt for seizure, on seizure precaution. On Lovenox injection for DVT prophylaxis, no bleeding noted at this time. Rankin catheter is draining well to yellow urine, good jannet care rendered. With ongoing treatment to left ankle intact blister as ordered, handled very gently, kept clean and comfortable.
[2020-05-26] MEDS: IPRATROPIUM BROMIDE 0.5 MG/2.5 ML NEBU NEB SCH ×4 (01:00→19:02)
[2020-05-26] MEDS: ALBUTEROL SULFATE 2.5 MG/3 ML NEBU NEB SCH ×4 (01:00→19:02)
[2020-05-26] MEDS: JEVITY 1.2 1000 ML LIQUID GT PRN ×2 (04:04→20:26)
[2020-05-26] MEDS: OMEPRAZOLE 20 MG CAPSULE.DR GT SCH (06:29)
[2020-05-26] MEDS: ACIDOPHILUS/BULGARICUS CHEW TAB GT SCH ×3 (06:29→22:39)
[2020-05-26] MEDS: VALPROIC ACID 250 MG/5 ML LIQUID UDC GT SCH ×3 (06:29→22:39)
[2020-05-26 07:21] LABS: BASOPHILS # (AUTO) 0.1 K/uL (0.0-8.0); BASOPHILS % (AUTO) 1.1 % (0.0-2.0); EOSINOPHILS # (AUTO) 0.2 K/uL (0.0-0.7); EOSINOPHILS % (AUTO) 4.4 % (0.0-7.0); HEMATOCRIT 35.5 % (36.7-47.1); HEMOGLOBIN 12.1 g/dL (12.5-16.3); LYMPHOCYTES # (AUTO) 1.4 K/uL (20.0-40.0); LYMPHOCYTES % (AUTO) 26.8 % (20.5-51.5); MEAN CORPUSCULAR HEMOGLOBIN 30.9 uug (23.8-33.4); MEAN CORPUSCULAR HGB CONC 34 g/dL (32.5-36.3); MEAN CORPUSCULAR VOLUME 90.8 fL (73.0-96.2); MONOCYTES # (AUTO) 0.5 K/uL (2.0-10.0); NEUTROPHILS % (AUTO) 58.7 % (38.5-71.5); PLATELET COUNT (AUTO) 309 K/uL (152-348); WHITE BLOOD COUNT (AUTO) 5.2 K/uL (3.6-10.2)
[2020-05-26 07:39] LABS: CARBON DIOXIDE 27 mmol/L (21-32); CHLORIDE 103 mmol/L (98-107); CREATININE 0.3 mg/dL (0.6-1.3); GLUCOSE 98 mg/dL (74-106); POTASSIUM 4.2 mmol/L (3.5-5.1); UREA NITROGEN, BLOOD 12 mg/dL (7-18)
[2020-05-26 07:40] VITALS: BP 105/75
[2020-05-26] MEDS: HYDROGEN PEROXIDE 3% 118 ML BOTTLE TP SCH ×2 (07:45→20:58)
[2020-05-26] MEDS: BACLOFEN 20 MG TABLET GT SCH ×3 (08:54→20:12)
[2020-05-26] MEDS: NUTRISOURCE FIBER 4 GM PACKET GT SCH (08:54)
[2020-05-26] MEDS: DOXYCYCLINE HYCLATE 100 MG TABLET GT SCH ×2 (08:55→17:50)
[2020-05-26] MEDS: POLYVINYL ALCOHOL OPHT DROPS 15 ML BOTTLE OP SCH ×4 (08:55→20:17)
[2020-05-26] MEDS: NEOMY/BACITRAC/POLYMI OINT 28.35 GM TUBE TP SCH (08:56)
[2020-05-26] MEDS: Z GUARD REMEDY PASTE 57 GM TUBE TOP SCH ×2 (08:56→20:19)
[2020-05-26] MEDS: BENZOYL PEROXIDE 10% GEL 60 GM TUBE TP SCH ×4 (08:56→20:19)
[2020-05-26] MEDS ORDERED: PHENOBARBITAL 32.4 MG TABLET PO ONE ×2 (09:00)
[2020-05-26] MEDS: PHENOBARBITAL 32.4 MG TABLET GT SCH ×2 (09:02→20:17)
[2020-05-26 19:54] VITALS: BP 91/48
--- NOTE | 2020-05-26 20:00 | NUR ---
Seen and examined by Dr. Biaml Ramirez (Magna[employer] Operator) with no new orders.
[2020-05-26] MEDS: OMEGA-3 FATTY ACIDS/FISH OIL CAPSULE GT SCH (20:11)
[2020-05-26] MEDS: ENOXAPARIN SODIUM 40 MG/0.4 ML DISP.SYRIN SQ SCH (20:18)
--- NOTE | 2020-05-26 22:33 | NUR ---
Patient is afebrile, no signs of any distress noted, remains on Doxycycline via gt, no adverse reactions noted, good skin care done, gt feeding tolerating well, no residual/ no vomiting noted. Rankin catheter is draining well to yellow urine, good jannet care rendered, kept patient clean and comfortable, will continue monitor.
[2020-05-27] MEDS: ALBUTEROL SULFATE 2.5 MG/3 ML NEBU NEB SCH ×4 (00:47→19:10)
[2020-05-27] MEDS: IPRATROPIUM BROMIDE 0.5 MG/2.5 ML NEBU NEB SCH ×4 (00:47→19:10)
[2020-05-27] MEDS: ACIDOPHILUS/BULGARICUS CHEW TAB GT SCH ×3 (06:14→22:15)
[2020-05-27] MEDS: VALPROIC ACID 250 MG/5 ML LIQUID UDC GT SCH ×3 (06:14→22:15)
[2020-05-27] MEDS: OMEPRAZOLE 20 MG CAPSULE.DR GT SCH (06:14)
[2020-05-27 07:27] VITALS: BP 93/56
[2020-05-27] MEDS: HYDROGEN PEROXIDE 3% 118 ML BOTTLE TP SCH ×2 (07:40→21:51)
[2020-05-27] MEDS: PHENOBARBITAL 32.4 MG TABLET GT SCH ×2 (08:46→20:12)
[2020-05-27] MEDS: BACLOFEN 20 MG TABLET GT SCH ×3 (08:46→20:12)
[2020-05-27] MEDS: POLYVINYL ALCOHOL OPHT DROPS 15 ML BOTTLE OP SCH ×4 (08:46→20:12)
[2020-05-27] MEDS: Z GUARD REMEDY PASTE 57 GM TUBE TOP SCH ×2 (08:46→20:12)
[2020-05-27] MEDS: BENZOYL PEROXIDE 10% GEL 60 GM TUBE TP SCH ×4 (08:46→20:12)
[2020-05-27] MEDS: NEOMY/BACITRAC/POLYMI OINT 28.35 GM TUBE TP SCH (08:46)
[2020-05-27] MEDS: DOXYCYCLINE HYCLATE 100 MG TABLET GT SCH ×2 (08:46→16:57)
[2020-05-27] MEDS: NUTRISOURCE FIBER 4 GM PACKET GT SCH (08:46)
[2020-05-27] MEDS: JEVITY 1.2 1000 ML LIQUID GT PRN (11:46)
--- NOTE | 2020-05-27 17:30 | NUR ---
CALLED AND NOTIFIED RESPONSIBLE DEMOCRAT OF ANNUAL PPD TEST. NOTIFIED AURA OF THE PPD TEST AND SHE OKAYED TO GIVE TEST.
[2020-05-27] MEDS: OMEGA-3 FATTY ACIDS/FISH OIL CAPSULE GT SCH (20:12)
[2020-05-27] MEDS: ENOXAPARIN SODIUM 40 MG/0.4 ML DISP.SYRIN SQ SCH (20:12)
[2020-05-27 20:16] VITALS: BP 104/70
[2020-05-28] MEDS: IPRATROPIUM BROMIDE 0.5 MG/2.5 ML NEBU NEB SCH ×4 (01:02→19:02)
[2020-05-28] MEDS: ALBUTEROL SULFATE 2.5 MG/3 ML NEBU NEB SCH ×4 (01:02→19:02)
--- NOTE | 2020-05-28 02:00 | NUR ---
Afebrile, remains on Doxycycline via gt for folliculitis/ Acne, no adverse reactions noted. Facial and ear folliculitis, still on benzoyl peroxide treatment as ordered, kept skin clean and dry.
[2020-05-28] MEDS: JEVITY 1.2 1000 ML LIQUID GT PRN ×2 (04:12→22:59)
[2020-05-28] MEDS: ACIDOPHILUS/BULGARICUS CHEW TAB GT SCH ×3 (06:15→21:00)
[2020-05-28] MEDS: VALPROIC ACID 250 MG/5 ML LIQUID UDC GT SCH ×3 (06:15→21:00)
[2020-05-28] MEDS: OMEPRAZOLE 20 MG CAPSULE.DR GT SCH (06:15)
[2020-05-28 07:25] VITALS: BP 95/65
[2020-05-28] MEDS: PHENOBARBITAL 32.4 MG TABLET GT SCH ×2 (08:51→21:00)
[2020-05-28] MEDS: BACLOFEN 20 MG TABLET GT SCH ×3 (08:51→21:00)
[2020-05-28] MEDS: NUTRISOURCE FIBER 4 GM PACKET GT SCH (08:51)
[2020-05-28] MEDS: POLYVINYL ALCOHOL OPHT DROPS 15 ML BOTTLE OP SCH ×4 (08:52→21:00)
[2020-05-28] MEDS: DOXYCYCLINE HYCLATE 100 MG TABLET GT SCH ×2 (08:52→17:35)
[2020-05-28] MEDS: Z GUARD REMEDY PASTE 57 GM TUBE TOP SCH ×2 (08:52→21:00)
[2020-05-28] MEDS: BENZOYL PEROXIDE 10% GEL 60 GM TUBE TP SCH ×4 (08:52→21:00)
[2020-05-28] MEDS: NEOMY/BACITRAC/POLYMI OINT 28.35 GM TUBE TP SCH (08:53)
[2020-05-28] MEDS: HYDROGEN PEROXIDE 3% 118 ML BOTTLE TP SCH ×2 (09:39→21:27)
[2020-05-28 19:20] VITALS: BP 103/68
--- NOTE | 2020-05-28 20:56 | NUR ---
Still on Doxycycline via gt for folliculitis, no adverse reactions noted, face and ear are clean and dry, no bumps, skin is intact, no signs of any distress, kept clean and comfortable.
[2020-05-28] MEDS: OMEGA-3 FATTY ACIDS/FISH OIL CAPSULE GT SCH (21:00)
[2020-05-28] MEDS ORDERED: ENOXAPARIN SODIUM 40 MG/0.4 ML DISP.SYRIN SQ ONE (21:32)
[2020-05-28] MEDS: ENOXAPARIN SODIUM 40 MG/0.4 ML DISP.SYRIN SQ SCH (22:03)
[2020-05-29] MEDS: ALBUTEROL SULFATE 2.5 MG/3 ML NEBU NEB SCH ×4 (01:00→19:19)
[2020-05-29] MEDS: IPRATROPIUM BROMIDE 0.5 MG/2.5 ML NEBU NEB SCH ×4 (01:00→19:19)
[2020-05-29] MEDS: VALPROIC ACID 250 MG/5 ML LIQUID UDC GT SCH ×3 (06:03→21:24)
[2020-05-29] MEDS: OMEPRAZOLE 20 MG CAPSULE.DR GT SCH (06:03)
[2020-05-29] MEDS: ACIDOPHILUS/BULGARICUS CHEW TAB GT SCH ×3 (06:03→21:24)
[2020-05-29 08:00] VITALS: BP 101/60
[2020-05-29] MEDS: BACLOFEN 20 MG TABLET GT SCH ×3 (08:40→20:48)
[2020-05-29] MEDS: NUTRISOURCE FIBER 4 GM PACKET GT SCH (08:41)
[2020-05-29] MEDS: PHENOBARBITAL 32.4 MG TABLET GT SCH ×2 (08:41→20:48)
[2020-05-29] MEDS: BENZOYL PEROXIDE 10% GEL 60 GM TUBE TP SCH ×4 (08:42→20:48)
[2020-05-29] MEDS: Z GUARD REMEDY PASTE 57 GM TUBE TOP SCH ×2 (08:42→20:48)
[2020-05-29] MEDS: POLYVINYL ALCOHOL OPHT DROPS 15 ML BOTTLE OP SCH ×4 (08:42→20:48)
[2020-05-29] MEDS: DOXYCYCLINE HYCLATE 100 MG TABLET GT SCH ×2 (08:42→16:07)
[2020-05-29] MEDS ORDERED: PHENOBARBITAL 32.4 MG TABLET PO ONE ×4 (09:00→21:00)
[2020-05-29] MEDS: NEOMY/BACITRAC/POLYMI OINT 28.35 GM TUBE TP SCH (09:35)
[2020-05-29] MEDS: HYDROGEN PEROXIDE 3% 118 ML BOTTLE TP SCH ×2 (10:30→21:00)
[2020-05-29] MEDS: JEVITY 1.2 1000 ML LIQUID GT PRN (16:07)
[2020-05-29 20:21] VITALS: BP 149/74
[2020-05-29] MEDS: OMEGA-3 FATTY ACIDS/FISH OIL CAPSULE GT SCH (20:48)
[2020-05-29] MEDS: ENOXAPARIN SODIUM 40 MG/0.4 ML DISP.SYRIN SQ SCH (21:24)
[2020-05-30] MEDS: ALBUTEROL SULFATE 2.5 MG/3 ML NEBU NEB SCH ×4 (01:16→19:02)
[2020-05-30] MEDS: IPRATROPIUM BROMIDE 0.5 MG/2.5 ML NEBU NEB SCH ×4 (01:16→19:02)
[2020-05-30] MEDS: ACIDOPHILUS/BULGARICUS CHEW TAB GT SCH ×3 (05:50→21:21)
[2020-05-30] MEDS: OMEPRAZOLE 20 MG CAPSULE.DR GT SCH (05:50)
[2020-05-30] MEDS: VALPROIC ACID 250 MG/5 ML LIQUID UDC GT SCH ×3 (05:50→21:21)
[2020-05-30] MEDS: HYDROGEN PEROXIDE 3% 118 ML BOTTLE TP SCH ×2 (07:41→21:30)
[2020-05-30 07:44] VITALS: BP 101/63
[2020-05-30] MEDS ORDERED: PHENOBARBITAL 32.4 MG TABLET PO ONE ×4 (09:00→21:00)
[2020-05-30] MEDS: NUTRISOURCE FIBER 4 GM PACKET GT SCH (09:36)
[2020-05-30] MEDS: PHENOBARBITAL 32.4 MG TABLET GT SCH ×2 (09:36→20:48)
[2020-05-30] MEDS: DOXYCYCLINE HYCLATE 100 MG TABLET GT SCH ×2 (09:36→17:04)
[2020-05-30] MEDS: BENZOYL PEROXIDE 10% GEL 60 GM TUBE TP SCH ×4 (09:36→20:48)
[2020-05-30] MEDS: BACLOFEN 20 MG TABLET GT SCH ×3 (09:36→20:48)
[2020-05-30] MEDS: Z GUARD REMEDY PASTE 57 GM TUBE TOP SCH ×2 (09:36→20:48)
[2020-05-30] MEDS: POLYVINYL ALCOHOL OPHT DROPS 15 ML BOTTLE OP SCH ×4 (09:36→20:48)
[2020-05-30] MEDS: NEOMY/BACITRAC/POLYMI OINT 28.35 GM TUBE TP SCH (09:36)
[2020-05-30] MEDS: JEVITY 1.2 1000 ML LIQUID GT PRN (12:38)
[2020-05-30] MEDS ORDERED: TUBERCULIN,PURIF.PROT.DERIV. 5 TU/0.1 ML TEST ID ONE (14:30)
[2020-05-30 19:19] VITALS: BP 93/64
[2020-05-30] MEDS: OMEGA-3 FATTY ACIDS/FISH OIL CAPSULE GT SCH (20:48)
[2020-05-30] MEDS: ENOXAPARIN SODIUM 40 MG/0.4 ML DISP.SYRIN SQ SCH (20:49)
[2020-05-31] MEDS: IPRATROPIUM BROMIDE 0.5 MG/2.5 ML NEBU NEB SCH ×4 (00:49→19:24)
[2020-05-31] MEDS: ALBUTEROL SULFATE 2.5 MG/3 ML NEBU NEB SCH ×4 (00:49→19:24)
[2020-05-31] MEDS: OMEPRAZOLE 20 MG CAPSULE.DR GT SCH (05:49)
[2020-05-31] MEDS: ACIDOPHILUS/BULGARICUS CHEW TAB GT SCH ×3 (05:49→21:56)
[2020-05-31] MEDS: VALPROIC ACID 250 MG/5 ML LIQUID UDC GT SCH ×3 (05:49→21:56)
[2020-05-31 07:39] VITALS: BP 97/56
[2020-05-31] MEDS ORDERED: PHENOBARBITAL 32.4 MG TABLET PO ONE ×2 (09:00)
[2020-05-31] MEDS: BACLOFEN 20 MG TABLET GT SCH ×3 (09:05→21:55)
[2020-05-31] MEDS: Z GUARD REMEDY PASTE 57 GM TUBE TOP SCH ×2 (09:06→21:55)
[2020-05-31] MEDS: NUTRISOURCE FIBER 4 GM PACKET GT SCH (09:06)
[2020-05-31] MEDS: DOXYCYCLINE HYCLATE 100 MG TABLET GT SCH ×2 (09:06→17:03)
[2020-05-31] MEDS: NEOMY/BACITRAC/POLYMI OINT 28.35 GM TUBE TP SCH (09:06)
[2020-05-31] MEDS: POLYVINYL ALCOHOL OPHT DROPS 15 ML BOTTLE OP SCH ×4 (09:06→21:55)
[2020-05-31] MEDS: BENZOYL PEROXIDE 10% GEL 60 GM TUBE TP SCH ×4 (09:06→21:56)
[2020-05-31] MEDS: PHENOBARBITAL 32.4 MG TABLET GT SCH ×2 (09:06→21:55)
[2020-05-31] MEDS: HYDROGEN PEROXIDE 3% 118 ML BOTTLE TP SCH ×2 (09:20→19:24)
--- NOTE | 2020-05-31 15:36 | NUR ---
SW tried getting a hold of patient's mother Sade today regarding admission paperwork. TOMY called with SHIELA Kerr, but patient's mother Sade was not available. Voicemail message was left for Sade to call back.
--- NOTE | 2020-05-31 16:27 | NUR ---
Mother notified of covid19 test will be done today and in agreement.
[2020-05-31 20:08] VITALS: BP 118/69
[2020-05-31] MEDS: ENOXAPARIN SODIUM 40 MG/0.4 ML DISP.SYRIN SQ SCH (21:00)
--- NOTE | 2020-05-31 21:25 | NUR ---
Afebrile, remains on Doxycyline via gt for folliculitis, Acne, no adverse reactions noted. Good skin care done, no signs of any distress noted, will continue monitor.
[2020-05-31] MEDS: OMEGA-3 FATTY ACIDS/FISH OIL CAPSULE GT SCH (21:55)
[2020-06-01] MEDS: ALBUTEROL SULFATE 2.5 MG/3 ML NEBU NEB SCH ×4 (00:40→19:10)
[2020-06-01] MEDS: IPRATROPIUM BROMIDE 0.5 MG/2.5 ML NEBU NEB SCH ×4 (00:40→19:10)
[2020-06-01] MEDS: JEVITY 1.2 1000 ML LIQUID GT PRN (00:56)
[2020-06-01] MEDS: OMEPRAZOLE 20 MG CAPSULE.DR GT SCH (05:57)
[2020-06-01] MEDS: ACIDOPHILUS/BULGARICUS CHEW TAB GT SCH ×3 (05:57→21:25)
[2020-06-01] MEDS: VALPROIC ACID 250 MG/5 ML LIQUID UDC GT SCH ×3 (05:57→21:25)
[2020-06-01 07:29] VITALS: BP 99/60
[2020-06-01] MEDS: HYDROGEN PEROXIDE 3% 118 ML BOTTLE TP SCH ×2 (08:48→21:54)
[2020-06-01] MEDS: BACLOFEN 20 MG TABLET GT SCH ×3 (08:59→20:33)
[2020-06-01] MEDS: PHENOBARBITAL 32.4 MG TABLET GT SCH ×2 (08:59→20:33)
[2020-06-01] MEDS: POLYVINYL ALCOHOL OPHT DROPS 15 ML BOTTLE OP SCH ×4 (08:59→20:34)
[2020-06-01] MEDS: NUTRISOURCE FIBER 4 GM PACKET GT SCH (08:59)
[2020-06-01] MEDS: DOXYCYCLINE HYCLATE 100 MG TABLET GT SCH ×2 (08:59→17:49)
[2020-06-01] MEDS: Z GUARD REMEDY PASTE 57 GM TUBE TOP SCH ×2 (09:00→20:34)
[2020-06-01] MEDS: BENZOYL PEROXIDE 10% GEL 60 GM TUBE TP SCH ×4 (09:00→20:34)
[2020-06-01] MEDS: NEOMY/BACITRAC/POLYMI OINT 28.35 GM TUBE TP SCH (09:00)
--- NOTE | 2020-06-01 10:29 | NUR ---
This SW informed by SHIELA Kerr that patient's mother Sade called back yesterday evening, and Usha informed her that TOMY would be mailing patient's admission forms to Sade for review and signature. Usha stated that Sade expressed agreement. TOMY mailed the following forms to patient's mother Sade for review and signatures: Conditions of Admission, Patient Rights Acknowledgement, Documentation of Preferred Intensity of Care, Voluntary Prior Express Consent Form, Race and Ethnicity Patient Self-Identification, and the [facility] Agreement. TOMY mailed the forms to the following address: Abby Nieto [id number] [place] [address]
--- NOTE | 2020-06-01 15:30 | NUR ---
INTERDISCIPLINARY PLAN OF CARE CONFERENCE was held today. Patient's mother was not available to participate in the IDT meeting. Dr. Bowser and the Interdisciplinary Team reviewed the current plan of care in detail. Nursing reported on patient's medical condition, current medications and treatments, and patient's recent need for acute hospitalization, 05/18/20-05/23/20. See nursing IDT conference notes. See also all other disciplines IDT notes and physician's progress notes for additional details.
[2020-06-01 20:03] VITALS: BP 101/62
[2020-06-01] MEDS: OMEGA-3 FATTY ACIDS/FISH OIL CAPSULE GT SCH (20:25)
[2020-06-01] MEDS: ENOXAPARIN SODIUM 40 MG/0.4 ML DISP.SYRIN SQ SCH (20:46)
[2020-06-02] MEDS: ALBUTEROL SULFATE 2.5 MG/3 ML NEBU NEB SCH ×4 (00:41→19:07)
[2020-06-02] MEDS: IPRATROPIUM BROMIDE 0.5 MG/2.5 ML NEBU NEB SCH ×4 (00:41→19:07)
[2020-06-02] MEDS: VALPROIC ACID 250 MG/5 ML LIQUID UDC GT SCH ×3 (06:06→22:17)
[2020-06-02] MEDS: ACIDOPHILUS/BULGARICUS CHEW TAB GT SCH ×3 (06:06→22:17)
[2020-06-02] MEDS: OMEPRAZOLE 20 MG CAPSULE.DR GT SCH (06:06)
[2020-06-02] MEDS: HYDROGEN PEROXIDE 3% 118 ML BOTTLE TP SCH ×2 (07:35→21:38)
[2020-06-02 07:41] VITALS: BP 120/63
[2020-06-02] MEDS: BENZOYL PEROXIDE 10% GEL 60 GM TUBE TP SCH ×4 (08:24→20:25)
[2020-06-02] MEDS: PHENOBARBITAL 32.4 MG TABLET GT SCH ×2 (08:24→20:22)
[2020-06-02] MEDS: POLYVINYL ALCOHOL OPHT DROPS 15 ML BOTTLE OP SCH ×4 (08:24→20:23)
[2020-06-02] MEDS: NEOMY/BACITRAC/POLYMI OINT 28.35 GM TUBE TP SCH (08:24)
[2020-06-02] MEDS: BACLOFEN 20 MG TABLET GT SCH ×3 (08:24→20:21)
[2020-06-02] MEDS: Z GUARD REMEDY PASTE 57 GM TUBE TOP SCH ×2 (08:24→20:25)
[2020-06-02] MEDS: NUTRISOURCE FIBER 4 GM PACKET GT SCH (08:24)
[2020-06-02] MEDS: DOXYCYCLINE HYCLATE 100 MG TABLET GT SCH ×2 (08:26→17:44)
--- NOTE | 2020-06-02 18:50 | NUR ---
PT'S MOTHER NOTIFIED REGARDING COVID 19 RESULT WAS NEGATIVE.
--- NOTE | 2020-06-02 19:00 | NUR ---
Seen and examined by Dr Bowser ,no new orders noted.
[2020-06-02 20:04] VITALS: BP 94/53
[2020-06-02] MEDS: OMEGA-3 FATTY ACIDS/FISH OIL CAPSULE GT SCH (20:21)
[2020-06-02] MEDS: ENOXAPARIN SODIUM 40 MG/0.4 ML DISP.SYRIN SQ SCH (20:24)
[2020-06-03] MEDS: ALBUTEROL SULFATE 2.5 MG/3 ML NEBU NEB SCH ×4 (00:46→19:50)
[2020-06-03] MEDS: IPRATROPIUM BROMIDE 0.5 MG/2.5 ML NEBU NEB SCH ×4 (00:46→19:50)
[2020-06-03] MEDS: VALPROIC ACID 250 MG/5 ML LIQUID UDC GT SCH ×3 (05:54→22:28)
[2020-06-03] MEDS: OMEPRAZOLE 20 MG CAPSULE.DR GT SCH (05:55)
[2020-06-03] MEDS: ACIDOPHILUS/BULGARICUS CHEW TAB GT SCH ×3 (05:55→22:28)
[2020-06-03 07:30] VITALS: BP 109/72
[2020-06-03] MEDS: Z GUARD REMEDY PASTE 57 GM TUBE TOP SCH ×2 (09:00→21:00)
[2020-06-03] MEDS: DOXYCYCLINE HYCLATE 100 MG TABLET GT SCH ×2 (09:00→17:50)
[2020-06-03] MEDS: NEOMY/BACITRAC/POLYMI OINT 28.35 GM TUBE TP SCH (09:00)
[2020-06-03] MEDS: BENZOYL PEROXIDE 10% GEL 60 GM TUBE TP SCH ×4 (09:00→21:00)
[2020-06-03] MEDS: BACLOFEN 20 MG TABLET GT SCH ×3 (09:00→21:00)
[2020-06-03] MEDS: POLYVINYL ALCOHOL OPHT DROPS 15 ML BOTTLE OP SCH ×4 (09:00→21:00)
[2020-06-03] MEDS: PHENOBARBITAL 32.4 MG TABLET GT SCH ×2 (09:00→21:00)
[2020-06-03] MEDS: NUTRISOURCE FIBER 4 GM PACKET GT SCH (09:00)
[2020-06-03] MEDS: HYDROGEN PEROXIDE 3% 118 ML BOTTLE TP SCH ×2 (09:44→19:50)
--- NOTE | 2020-06-03 16:51 | NUR ---
SEEN BY DR. PLAZA AND WITH NNO.
[2020-06-03 20:00] VITALS: BP 110/59
[2020-06-03] MEDS: ENOXAPARIN SODIUM 40 MG/0.4 ML DISP.SYRIN SQ SCH (21:00)
[2020-06-03] MEDS: OMEGA-3 FATTY ACIDS/FISH OIL CAPSULE GT SCH (21:00)
[2020-06-04] MEDS: ALBUTEROL SULFATE 2.5 MG/3 ML NEBU NEB SCH ×4 (01:01→19:29)
[2020-06-04] MEDS: IPRATROPIUM BROMIDE 0.5 MG/2.5 ML NEBU NEB SCH ×4 (01:01→19:29)
[2020-06-04] MEDS: JEVITY 1.2 1000 ML LIQUID GT PRN (05:00)
[2020-06-04] MEDS: VALPROIC ACID 250 MG/5 ML LIQUID UDC GT SCH ×3 (05:50→22:05)
[2020-06-04] MEDS: OMEPRAZOLE 20 MG CAPSULE.DR GT SCH (05:50)
[2020-06-04] MEDS: ACIDOPHILUS/BULGARICUS CHEW TAB GT SCH ×3 (05:50→22:05)
[2020-06-04 08:00] VITALS: BP 93/61
[2020-06-04] MEDS: BACLOFEN 20 MG TABLET GT SCH ×3 (08:11→21:00)
[2020-06-04] MEDS: PHENOBARBITAL 32.4 MG TABLET GT SCH ×2 (08:12→21:00)
[2020-06-04] MEDS: NUTRISOURCE FIBER 4 GM PACKET GT SCH (08:12)
[2020-06-04] MEDS: Z GUARD REMEDY PASTE 57 GM TUBE TOP SCH ×2 (08:12→21:00)
[2020-06-04] MEDS: BENZOYL PEROXIDE 10% GEL 60 GM TUBE TP SCH ×2 (08:12→21:00)
[2020-06-04] MEDS: POLYVINYL ALCOHOL OPHT DROPS 15 ML BOTTLE OP SCH ×4 (08:12→21:00)
[2020-06-04] MEDS: NEOMY/BACITRAC/POLYMI OINT 28.35 GM TUBE TP SCH (09:00)
[2020-06-04] MEDS: HYDROGEN PEROXIDE 3% 118 ML BOTTLE TP SCH ×2 (09:00→21:58)
[2020-06-04 20:15] VITALS: BP 98/52
[2020-06-04] MEDS: OMEGA-3 FATTY ACIDS/FISH OIL CAPSULE GT SCH (21:00)
[2020-06-04] MEDS: ENOXAPARIN SODIUM 40 MG/0.4 ML DISP.SYRIN SQ SCH (21:00)
[2020-06-05] MEDS: ALBUTEROL SULFATE 2.5 MG/3 ML NEBU NEB SCH ×4 (01:06→19:31)
[2020-06-05] MEDS: IPRATROPIUM BROMIDE 0.5 MG/2.5 ML NEBU NEB SCH ×4 (01:06→19:31)
--- NOTE | 2020-06-05 02:00 | NUR ---
For COVID-19 testing as per [facility] requirement.
[2020-06-05] MEDS: VALPROIC ACID 250 MG/5 ML LIQUID UDC GT SCH ×3 (05:32→21:21)
[2020-06-05] MEDS: OMEPRAZOLE 20 MG CAPSULE.DR GT SCH (05:32)
[2020-06-05] MEDS: ACIDOPHILUS/BULGARICUS CHEW TAB GT SCH ×3 (05:32→21:21)
[2020-06-05 07:37] VITALS: BP 100/61
[2020-06-05] MEDS: HYDROGEN PEROXIDE 3% 118 ML BOTTLE TP SCH ×2 (07:40→21:00)
[2020-06-05] MEDS: PHENOBARBITAL 32.4 MG TABLET GT SCH ×2 (08:31→20:29)
[2020-06-05] MEDS: BENZOYL PEROXIDE 10% GEL 60 GM TUBE TP SCH ×2 (08:31→20:29)
[2020-06-05] MEDS: NUTRISOURCE FIBER 4 GM PACKET GT SCH (08:31)
[2020-06-05] MEDS: NEOMY/BACITRAC/POLYMI OINT 28.35 GM TUBE TP SCH (08:31)
[2020-06-05] MEDS: BACLOFEN 20 MG TABLET GT SCH ×3 (08:31→20:29)
[2020-06-05] MEDS: POLYVINYL ALCOHOL OPHT DROPS 15 ML BOTTLE OP SCH ×4 (08:31→20:29)
[2020-06-05] MEDS: Z GUARD REMEDY PASTE 57 GM TUBE TOP SCH ×2 (08:31→20:29)
--- NOTE | 2020-06-05 10:00 | NUR ---
PT'S MOTHER AWARE OF COVID 19 TEST TODAY AND IN AGREEMENT.
[2020-06-05] MEDS: JEVITY 1.2 1000 ML LIQUID GT PRN (11:46)
[2020-06-05 19:55] VITALS: BP 101/69
[2020-06-05] MEDS: OMEGA-3 FATTY ACIDS/FISH OIL CAPSULE GT SCH (20:29)
[2020-06-05] MEDS ORDERED: PHENOBARBITAL 32.4 MG TABLET PO ONE ×2 (21:00)
[2020-06-05] MEDS: ENOXAPARIN SODIUM 40 MG/0.4 ML DISP.SYRIN SQ SCH (21:21)
[2020-06-06] MEDS: IPRATROPIUM BROMIDE 0.5 MG/2.5 ML NEBU NEB SCH ×4 (02:01→19:20)
[2020-06-06] MEDS: ALBUTEROL SULFATE 2.5 MG/3 ML NEBU NEB SCH ×4 (02:01→19:20)
[2020-06-06] MEDS: VALPROIC ACID 250 MG/5 ML LIQUID UDC GT SCH ×3 (05:18→22:14)
[2020-06-06] MEDS: OMEPRAZOLE 20 MG CAPSULE.DR GT SCH (05:18)
[2020-06-06] MEDS: ACIDOPHILUS/BULGARICUS CHEW TAB GT SCH ×3 (05:18→22:14)
[2020-06-06] MEDS: JEVITY 1.2 1000 ML LIQUID GT PRN (05:19)
[2020-06-06 07:28] VITALS: BP 95/67
[2020-06-06] MEDS: HYDROGEN PEROXIDE 3% 118 ML BOTTLE TP SCH ×2 (08:13→21:28)
[2020-06-06] MEDS ORDERED: PHENOBARBITAL 32.4 MG TABLET PO ONE ×4 (09:00→21:00)
[2020-06-06] MEDS: Z GUARD REMEDY PASTE 57 GM TUBE TOP SCH ×2 (09:51→20:28)
[2020-06-06] MEDS: BENZOYL PEROXIDE 10% GEL 60 GM TUBE TP SCH ×2 (09:51→20:29)
[2020-06-06] MEDS: PHENOBARBITAL 32.4 MG TABLET GT SCH ×2 (09:51→20:28)
[2020-06-06] MEDS: NUTRISOURCE FIBER 4 GM PACKET GT SCH (09:51)
[2020-06-06] MEDS: POLYVINYL ALCOHOL OPHT DROPS 15 ML BOTTLE OP SCH ×4 (09:51→20:28)
[2020-06-06] MEDS: NEOMY/BACITRAC/POLYMI OINT 28.35 GM TUBE TP SCH (09:51)
[2020-06-06] MEDS: BACLOFEN 20 MG TABLET GT SCH ×3 (09:51→20:28)
--- NOTE | 2020-06-06 17:19 | NUR ---
PT'S MOTHER AWARE OF NEGATIVE COVID 19 TSET WITH A MESSAGE.
[2020-06-06 19:58] VITALS: BP 127/74
[2020-06-06] MEDS: OMEGA-3 FATTY ACIDS/FISH OIL CAPSULE GT SCH (20:22)
[2020-06-06] MEDS: ENOXAPARIN SODIUM 40 MG/0.4 ML DISP.SYRIN SQ SCH (20:25)
[2020-06-07] MEDS: ALBUTEROL SULFATE 2.5 MG/3 ML NEBU NEB SCH ×4 (01:20→19:40)
[2020-06-07] MEDS: IPRATROPIUM BROMIDE 0.5 MG/2.5 ML NEBU NEB SCH ×4 (01:20→19:40)
[2020-06-07] MEDS: JEVITY 1.2 1000 ML LIQUID GT PRN ×2 (01:32→18:35)
[2020-06-07] MEDS: ACIDOPHILUS/BULGARICUS CHEW TAB GT SCH ×3 (05:01→22:00)
[2020-06-07] MEDS: OMEPRAZOLE 20 MG CAPSULE.DR GT SCH (05:01)
[2020-06-07] MEDS: VALPROIC ACID 250 MG/5 ML LIQUID UDC GT SCH ×3 (05:01→22:00)
[2020-06-07 07:39] VITALS: BP 133/64
[2020-06-07] MEDS: HYDROGEN PEROXIDE 3% 118 ML BOTTLE TP SCH ×2 (08:34→21:35)
[2020-06-07] MEDS: NUTRISOURCE FIBER 4 GM PACKET GT SCH (08:48)
[2020-06-07] MEDS: NEOMY/BACITRAC/POLYMI OINT 28.35 GM TUBE TP SCH (08:48)
[2020-06-07] MEDS: POLYVINYL ALCOHOL OPHT DROPS 15 ML BOTTLE OP SCH ×4 (08:48→20:35)
[2020-06-07] MEDS: PHENOBARBITAL 32.4 MG TABLET GT SCH ×2 (08:48→20:35)
[2020-06-07] MEDS: BACLOFEN 20 MG TABLET GT SCH ×3 (08:48→20:35)
[2020-06-07] MEDS: BENZOYL PEROXIDE 10% GEL 60 GM TUBE TP SCH ×2 (08:48→20:35)
[2020-06-07] MEDS: Z GUARD REMEDY PASTE 57 GM TUBE TOP SCH ×2 (08:48→20:35)
[2020-06-07] MEDS ORDERED: PHENOBARBITAL 32.4 MG TABLET PO ONE ×4 (09:00→21:00)
--- NOTE | 2020-06-07 13:38 | NUR ---
SEEN AND EXAMINED BY YOLANDA Grider AND WITH CAROLINO.
--- NOTE | 2020-06-07 16:14 | NUR ---
NEW ORDER CARRIED OUT FROM YOLANDA Kothari FOR LOCAL TX ON SUPERFICIAL FOREHEAD SCRATCH SUSTAINED WHEN NEUROSCIENTIST REPOSITIONED PT.&PICTURE TAKEN .MESSAGE LEFT TO PT'S MOTHER IN CELL PHONE.
--- NOTE | 2020-06-07 16:15 | NUR ---
CORRECTED ENTRY NEW ORDER WAS CARRIED OUT FROM DR. PLAZA NOT DR. WANG,NOT YOLANDA Kothari FOR FOREHEAD SUPERFICIAL SCARTCH.
[2020-06-07] MEDS: NEOMY/BACITRA/POLYMYXIN B OINT UD PACKET TP SCH (17:26)
[2020-06-07 19:57] VITALS: BP 131/83
[2020-06-07] MEDS: OMEGA-3 FATTY ACIDS/FISH OIL CAPSULE GT SCH (20:35)
[2020-06-07] MEDS: ENOXAPARIN SODIUM 40 MG/0.4 ML DISP.SYRIN SQ SCH (20:42)
[2020-06-08] MEDS: ALBUTEROL SULFATE 2.5 MG/3 ML NEBU NEB SCH ×4 (01:38→18:59)
[2020-06-08] MEDS: IPRATROPIUM BROMIDE 0.5 MG/2.5 ML NEBU NEB SCH ×4 (01:38→18:59)
[2020-06-08] MEDS: OMEPRAZOLE 20 MG CAPSULE.DR GT SCH (05:11)
[2020-06-08] MEDS: ACIDOPHILUS/BULGARICUS CHEW TAB GT SCH ×3 (05:11→22:15)
[2020-06-08] MEDS: VALPROIC ACID 250 MG/5 ML LIQUID UDC GT SCH ×3 (05:11→22:15)
[2020-06-08 07:30] VITALS: BP 109/73
[2020-06-08] MEDS: HYDROGEN PEROXIDE 3% 118 ML BOTTLE TP SCH ×2 (08:45→21:06)
[2020-06-08] MEDS: POLYVINYL ALCOHOL OPHT DROPS 15 ML BOTTLE OP SCH ×4 (09:27→20:12)
[2020-06-08] MEDS: PHENOBARBITAL 32.4 MG TABLET GT SCH ×2 (09:27→20:12)
[2020-06-08] MEDS: NUTRISOURCE FIBER 4 GM PACKET GT SCH (09:27)
[2020-06-08] MEDS: BACLOFEN 20 MG TABLET GT SCH ×3 (09:27→20:12)
[2020-06-08] MEDS: NEOMY/BACITRA/POLYMYXIN B OINT UD PACKET TP SCH (09:28)
[2020-06-08] MEDS: NEOMY/BACITRAC/POLYMI OINT 28.35 GM TUBE TP SCH (09:28)
[2020-06-08] MEDS: Z GUARD REMEDY PASTE 57 GM TUBE TOP SCH ×2 (09:28→20:13)
[2020-06-08] MEDS: BENZOYL PEROXIDE 10% GEL 60 GM TUBE TP SCH ×2 (09:39→20:13)
[2020-06-08] MEDS: JEVITY 1.2 1000 ML LIQUID GT PRN (14:10)
--- NOTE | 2020-06-08 14:22 | NUR ---
Seen and examined by Sandra Pineda,no new orders.
[2020-06-08 19:52] VITALS: BP 107/70
[2020-06-08] MEDS: OMEGA-3 FATTY ACIDS/FISH OIL CAPSULE GT SCH (20:13)
[2020-06-08] MEDS: ENOXAPARIN SODIUM 40 MG/0.4 ML DISP.SYRIN SQ SCH (20:15)
[2020-06-09] MEDS: IPRATROPIUM BROMIDE 0.5 MG/2.5 ML NEBU NEB SCH ×4 (00:51→19:35)
[2020-06-09] MEDS: ALBUTEROL SULFATE 2.5 MG/3 ML NEBU NEB SCH ×4 (00:51→19:35)
[2020-06-09] MEDS: ACIDOPHILUS/BULGARICUS CHEW TAB GT SCH ×3 (05:11→21:49)
[2020-06-09] MEDS: VALPROIC ACID 250 MG/5 ML LIQUID UDC GT SCH ×3 (05:11→21:49)
[2020-06-09] MEDS: OMEPRAZOLE 20 MG CAPSULE.DR GT SCH (05:11)
[2020-06-09] MEDS: JEVITY 1.2 1000 ML LIQUID GT PRN (07:02)
[2020-06-09 07:29] VITALS: BP 106/79
[2020-06-09] MEDS: NUTRISOURCE FIBER 4 GM PACKET GT SCH (09:15)
[2020-06-09] MEDS: BACLOFEN 20 MG TABLET GT SCH ×3 (09:15→21:48)
[2020-06-09] MEDS: POLYVINYL ALCOHOL OPHT DROPS 15 ML BOTTLE OP SCH ×4 (09:17→21:49)
[2020-06-09] MEDS: PHENOBARBITAL 32.4 MG TABLET GT SCH ×2 (09:17→21:48)
[2020-06-09] MEDS: BENZOYL PEROXIDE 10% GEL 60 GM TUBE TP SCH ×2 (09:17→21:49)
[2020-06-09] MEDS: NEOMY/BACITRA/POLYMYXIN B OINT UD PACKET TP SCH (09:17)
[2020-06-09] MEDS: Z GUARD REMEDY PASTE 57 GM TUBE TOP SCH ×2 (09:17→21:49)
[2020-06-09] MEDS: HYDROGEN PEROXIDE 3% 118 ML BOTTLE TP SCH ×2 (09:48→21:35)
[2020-06-09] MEDS: OMEGA-3 FATTY ACIDS/FISH OIL CAPSULE GT SCH (21:48)
[2020-06-09] MEDS: ENOXAPARIN SODIUM 40 MG/0.4 ML DISP.SYRIN SQ SCH (21:51)
[2020-06-09 22:39] VITALS: BP 115/72
[2020-06-10] MEDS: JEVITY 1.2 1000 ML LIQUID GT PRN (00:05)
[2020-06-10] MEDS: ALBUTEROL SULFATE 2.5 MG/3 ML NEBU NEB SCH ×4 (01:09→18:10)
[2020-06-10] MEDS: IPRATROPIUM BROMIDE 0.5 MG/2.5 ML NEBU NEB SCH ×4 (02:09→18:10)
[2020-06-10] MEDS: OMEPRAZOLE 20 MG CAPSULE.DR GT SCH (06:29)
[2020-06-10] MEDS: ACIDOPHILUS/BULGARICUS CHEW TAB GT SCH ×3 (06:29→21:28)
[2020-06-10] MEDS: VALPROIC ACID 250 MG/5 ML LIQUID UDC GT SCH ×3 (06:29→21:28)
[2020-06-10 07:20] VITALS: BP 95/51
[2020-06-10] MEDS: HYDROGEN PEROXIDE 3% 118 ML BOTTLE TP SCH ×2 (07:54→21:00)
[2020-06-10] MEDS: NUTRISOURCE FIBER 4 GM PACKET GT SCH (09:09)
[2020-06-10] MEDS: BACLOFEN 20 MG TABLET GT SCH ×3 (09:09→21:27)
[2020-06-10] MEDS: PHENOBARBITAL 32.4 MG TABLET GT SCH ×2 (09:10→21:27)
[2020-06-10] MEDS: POLYVINYL ALCOHOL OPHT DROPS 15 ML BOTTLE OP SCH ×4 (09:10→21:27)
[2020-06-10] MEDS: Z GUARD REMEDY PASTE 57 GM TUBE TOP SCH ×2 (09:10→21:28)
[2020-06-10] MEDS: BENZOYL PEROXIDE 10% GEL 60 GM TUBE TP SCH ×2 (09:10→21:28)
[2020-06-10] MEDS: NEOMY/BACITRA/POLYMYXIN B OINT UD PACKET TP SCH (09:10)
--- NOTE | 2020-06-10 15:08 | NUR ---
SW received the signed admission paperwork back from patient's mother. The paperwork includes: Conditions of Admission, Patient Rights Acknowledgement, Documentation of Preferred Intensity of Care, Voluntary Prior Express Consent Form, Race and Ethnicity Patient Self-Identification, and the [facility] Agreement. Per Preferred Intensity of Care signed by patient's mother, family's preference for patient's code status is DNR.
--- NOTE | 2020-06-10 16:53 | NUR ---
Seen by Dr Pena,no new orders.
[2020-06-10 19:35] VITALS: BP 96/55
[2020-06-10] MEDS ORDERED: PHENOBARBITAL 32.4 MG TABLET PO ONE ×2 (21:00)
[2020-06-10] MEDS: OMEGA-3 FATTY ACIDS/FISH OIL CAPSULE GT SCH (21:27)
[2020-06-10] MEDS: ENOXAPARIN SODIUM 40 MG/0.4 ML DISP.SYRIN SQ SCH (21:42)
[2020-06-11] MEDS: ALBUTEROL SULFATE 2.5 MG/3 ML NEBU NEB SCH ×4 (01:53→18:53)
[2020-06-11] MEDS: IPRATROPIUM BROMIDE 0.5 MG/2.5 ML NEBU NEB SCH ×4 (01:53→18:53)
[2020-06-11] MEDS: OMEPRAZOLE 20 MG CAPSULE.DR GT SCH (05:47)
[2020-06-11] MEDS: ACIDOPHILUS/BULGARICUS CHEW TAB GT SCH ×3 (05:47→21:50)
[2020-06-11] MEDS: VALPROIC ACID 250 MG/5 ML LIQUID UDC GT SCH ×3 (05:47→21:50)
[2020-06-11] MEDS: HYDROGEN PEROXIDE 3% 118 ML BOTTLE TP SCH ×2 (07:18→21:08)
[2020-06-11 07:26] VITALS: BP 93/60
[2020-06-11] MEDS: NUTRISOURCE FIBER 4 GM PACKET GT SCH (08:57)
[2020-06-11] MEDS: BACLOFEN 20 MG TABLET GT SCH ×3 (08:57→21:50)
[2020-06-11] MEDS: POLYVINYL ALCOHOL OPHT DROPS 15 ML BOTTLE OP SCH ×4 (08:58→21:50)
[2020-06-11] MEDS: PHENOBARBITAL 32.4 MG TABLET GT SCH ×2 (08:58→21:50)
[2020-06-11] MEDS: NEOMY/BACITRA/POLYMYXIN B OINT UD PACKET TP SCH (08:58)
[2020-06-11] MEDS: BENZOYL PEROXIDE 10% GEL 60 GM TUBE TP SCH ×2 (08:58→21:50)
[2020-06-11] MEDS: Z GUARD REMEDY PASTE 57 GM TUBE TOP SCH ×2 (08:58→21:50)
[2020-06-11] MEDS ORDERED: PHENOBARBITAL 32.4 MG TABLET PO ONE ×4 (09:00→21:00)
[2020-06-11] MEDS: JEVITY 1.2 1000 ML LIQUID GT PRN (12:42)
[2020-06-11 21:28] VITALS: BP 98/62
[2020-06-11] MEDS: OMEGA-3 FATTY ACIDS/FISH OIL CAPSULE GT SCH (21:50)
[2020-06-11] MEDS: ENOXAPARIN SODIUM 40 MG/0.4 ML DISP.SYRIN SQ SCH (21:52)
[2020-06-12] MEDS: IPRATROPIUM BROMIDE 0.5 MG/2.5 ML NEBU NEB SCH ×4 (01:06→19:08)
[2020-06-12] MEDS: ALBUTEROL SULFATE 2.5 MG/3 ML NEBU NEB SCH ×4 (01:06→19:08)
[2020-06-12] MEDS: JEVITY 1.2 1000 ML LIQUID GT PRN ×2 (03:34→17:45)
[2020-06-12] MEDS: ACIDOPHILUS/BULGARICUS CHEW TAB GT SCH ×3 (05:52→21:47)
[2020-06-12] MEDS: VALPROIC ACID 250 MG/5 ML LIQUID UDC GT SCH ×3 (05:52→21:47)
[2020-06-12] MEDS: OMEPRAZOLE 20 MG CAPSULE.DR GT SCH (05:52)
[2020-06-12 07:32] VITALS: BP 105/65
[2020-06-12] MEDS: HYDROGEN PEROXIDE 3% 118 ML BOTTLE TP SCH ×2 (07:50→21:00)
[2020-06-12] MEDS: BACLOFEN 20 MG TABLET GT SCH ×3 (08:48→21:45)
[2020-06-12] MEDS: NUTRISOURCE FIBER 4 GM PACKET GT SCH (08:49)
[2020-06-12] MEDS: PHENOBARBITAL 32.4 MG TABLET GT SCH ×2 (08:49→21:45)
[2020-06-12] MEDS: POLYVINYL ALCOHOL OPHT DROPS 15 ML BOTTLE OP SCH ×4 (08:49→21:46)
[2020-06-12] MEDS: Z GUARD REMEDY PASTE 57 GM TUBE TOP SCH ×2 (08:49→21:47)
[2020-06-12] MEDS: BENZOYL PEROXIDE 10% GEL 60 GM TUBE TP SCH ×2 (08:50→21:47)
[2020-06-12] MEDS ORDERED: PHENOBARBITAL 32.4 MG TABLET PO ONE ×4 (09:00→21:00)
[2020-06-12] MEDS: OMEGA-3 FATTY ACIDS/FISH OIL CAPSULE GT SCH (21:45)
[2020-06-12] MEDS: ENOXAPARIN SODIUM 40 MG/0.4 ML DISP.SYRIN SQ SCH (21:46)
[2020-06-12 22:02] VITALS: BP 105/75
[2020-06-13] MEDS: ALBUTEROL SULFATE 2.5 MG/3 ML NEBU NEB SCH ×4 (00:49→19:19)
[2020-06-13] MEDS: IPRATROPIUM BROMIDE 0.5 MG/2.5 ML NEBU NEB SCH ×4 (00:49→19:19)
[2020-06-13] MEDS: VALPROIC ACID 250 MG/5 ML LIQUID UDC GT SCH ×3 (06:11→21:42)
[2020-06-13] MEDS: OMEPRAZOLE 20 MG CAPSULE.DR GT SCH (06:11)
[2020-06-13] MEDS: ACIDOPHILUS/BULGARICUS CHEW TAB GT SCH ×3 (06:11→21:42)
[2020-06-13 07:23] VITALS: BP 107/60
[2020-06-13] MEDS: BACLOFEN 20 MG TABLET GT SCH ×3 (08:52→21:42)
[2020-06-13] MEDS: BENZOYL PEROXIDE 10% GEL 60 GM TUBE TP SCH ×2 (08:52→21:42)
[2020-06-13] MEDS: Z GUARD REMEDY PASTE 57 GM TUBE TOP SCH ×2 (08:52→21:42)
[2020-06-13] MEDS: PHENOBARBITAL 32.4 MG TABLET GT SCH ×2 (08:52→21:42)
[2020-06-13] MEDS: NUTRISOURCE FIBER 4 GM PACKET GT SCH (08:52)
[2020-06-13] MEDS: POLYVINYL ALCOHOL OPHT DROPS 15 ML BOTTLE OP SCH ×4 (08:52→21:42)
[2020-06-13] MEDS ORDERED: PHENOBARBITAL 32.4 MG TABLET PO ONE ×4 (09:00→21:00)
[2020-06-13] MEDS: HYDROGEN PEROXIDE 3% 118 ML BOTTLE TP SCH ×2 (09:00→19:43)
[2020-06-13] MEDS: JEVITY 1.2 1000 ML LIQUID GT PRN (11:02)
--- NOTE | 2020-06-13 18:45 | NUR ---
Pt's mother Aura notified Covid 19 results negative.
[2020-06-13 19:55] VITALS: BP 120/70
[2020-06-13] MEDS: ENOXAPARIN SODIUM 40 MG/0.4 ML DISP.SYRIN SQ SCH (21:00)
[2020-06-13] MEDS: OMEGA-3 FATTY ACIDS/FISH OIL CAPSULE GT SCH (21:42)
[2020-06-14] MEDS: ALBUTEROL SULFATE 2.5 MG/3 ML NEBU NEB SCH ×4 (00:56→19:11)
[2020-06-14] MEDS: IPRATROPIUM BROMIDE 0.5 MG/2.5 ML NEBU NEB SCH ×4 (00:56→19:11)
[2020-06-14] MEDS: JEVITY 1.2 1000 ML LIQUID GT PRN ×2 (03:15→23:05)
[2020-06-14] MEDS: OMEPRAZOLE 20 MG CAPSULE.DR GT SCH (06:19)
[2020-06-14] MEDS: VALPROIC ACID 250 MG/5 ML LIQUID UDC GT SCH ×3 (06:19→21:52)
[2020-06-14] MEDS: ACIDOPHILUS/BULGARICUS CHEW TAB GT SCH ×3 (06:19→21:52)
[2020-06-14 07:47] VITALS: BP 98/68
[2020-06-14] MEDS: BACLOFEN 20 MG TABLET GT SCH ×3 (08:59→21:51)
[2020-06-14] MEDS: POLYVINYL ALCOHOL OPHT DROPS 15 ML BOTTLE OP SCH ×4 (08:59→21:51)
[2020-06-14] MEDS: BENZOYL PEROXIDE 10% GEL 60 GM TUBE TP SCH ×2 (08:59→21:52)
[2020-06-14] MEDS: NUTRISOURCE FIBER 4 GM PACKET GT SCH (08:59)
[2020-06-14] MEDS: Z GUARD REMEDY PASTE 57 GM TUBE TOP SCH ×2 (08:59→21:51)
[2020-06-14] MEDS ORDERED: PHENOBARBITAL 32.4 MG TABLET PO ONE ×4 (09:00→21:00)
[2020-06-14] MEDS: PHENOBARBITAL 32.4 MG TABLET GT SCH ×2 (09:00→21:51)
[2020-06-14] MEDS: HYDROGEN PEROXIDE 3% 118 ML BOTTLE TP SCH ×2 (09:14→21:29)
[2020-06-14 19:52] VITALS: BP 112/84
[2020-06-14] MEDS: ENOXAPARIN SODIUM 40 MG/0.4 ML DISP.SYRIN SQ SCH (21:00)
[2020-06-14] MEDS: OMEGA-3 FATTY ACIDS/FISH OIL CAPSULE GT SCH (21:51)
[2020-06-15] MEDS: ALBUTEROL SULFATE 2.5 MG/3 ML NEBU NEB SCH ×4 (01:00→19:14)
[2020-06-15] MEDS: IPRATROPIUM BROMIDE 0.5 MG/2.5 ML NEBU NEB SCH ×4 (01:00→19:14)
[2020-06-15] MEDS: OMEPRAZOLE 20 MG CAPSULE.DR GT SCH (06:14)
[2020-06-15] MEDS: VALPROIC ACID 250 MG/5 ML LIQUID UDC GT SCH ×3 (06:14→21:50)
[2020-06-15] MEDS: ACIDOPHILUS/BULGARICUS CHEW TAB GT SCH ×3 (06:14→21:50)
[2020-06-15 07:49] VITALS: BP 96/62
[2020-06-15] MEDS: HYDROGEN PEROXIDE 3% 118 ML BOTTLE TP SCH ×2 (07:56→19:14)
[2020-06-15] MEDS ORDERED: PHENOBARBITAL 32.4 MG TABLET PO ONE ×2 (09:00)
[2020-06-15] MEDS: BACLOFEN 20 MG TABLET GT SCH ×3 (09:22→20:07)
[2020-06-15] MEDS: PHENOBARBITAL 32.4 MG TABLET GT SCH ×2 (09:22→21:50)
[2020-06-15] MEDS: NUTRISOURCE FIBER 4 GM PACKET GT SCH (09:22)
[2020-06-15] MEDS: BENZOYL PEROXIDE 10% GEL 60 GM TUBE TP SCH ×2 (09:23→20:08)
[2020-06-15] MEDS: Z GUARD REMEDY PASTE 57 GM TUBE TOP SCH ×2 (09:23→20:08)
[2020-06-15] MEDS: POLYVINYL ALCOHOL OPHT DROPS 15 ML BOTTLE OP SCH ×4 (09:23→20:07)
--- NOTE | 2020-06-15 13:00 | NUR ---
Seen and examined by Sandra Pineda,no new orders noted.
[2020-06-15] MEDS: JEVITY 1.2 1000 ML LIQUID GT PRN (15:40)
--- NOTE | 2020-06-15 16:34 | NUR ---
INTERDISCIPLINARY PLAN OF CARE CONFERENCE was held today. Patient's mother was not available to participate in the IDT meeting. Dr. Bowser and the Interdisciplinary Team reviewed the current plan of care in detail. Nursing reported on patient's medical condition and ongoing skin treatment. See nursing IDT conference notes. No major changes were reported by nursing or by the other disciplines. See all disciplines IDT notes and physician's progress notes for additional details.
[2020-06-15 19:57] VITALS: BP 96/68
[2020-06-15] MEDS: OMEGA-3 FATTY ACIDS/FISH OIL CAPSULE GT SCH (20:07)
[2020-06-15] MEDS: ENOXAPARIN SODIUM 40 MG/0.4 ML DISP.SYRIN SQ SCH (20:08)
[2020-06-16] MEDS: IPRATROPIUM BROMIDE 0.5 MG/2.5 ML NEBU NEB SCH ×4 (01:03→19:14)
[2020-06-16] MEDS: ALBUTEROL SULFATE 2.5 MG/3 ML NEBU NEB SCH ×4 (01:03→19:14)
[2020-06-16] MEDS: OMEPRAZOLE 20 MG CAPSULE.DR GT SCH (05:14)
[2020-06-16] MEDS: VALPROIC ACID 250 MG/5 ML LIQUID UDC GT SCH ×3 (05:14→22:14)
[2020-06-16] MEDS: ACIDOPHILUS/BULGARICUS CHEW TAB GT SCH ×3 (05:14→22:14)
[2020-06-16 07:37] VITALS: BP 119/73
[2020-06-16] MEDS: NUTRISOURCE FIBER 4 GM PACKET GT SCH (09:02)
[2020-06-16] MEDS: PHENOBARBITAL 32.4 MG TABLET GT SCH ×2 (09:02→20:25)
[2020-06-16] MEDS: BACLOFEN 20 MG TABLET GT SCH ×3 (09:02→20:25)
[2020-06-16] MEDS: BENZOYL PEROXIDE 10% GEL 60 GM TUBE TP SCH ×2 (09:03→20:26)
[2020-06-16] MEDS: Z GUARD REMEDY PASTE 57 GM TUBE TOP SCH ×2 (09:03→20:26)
[2020-06-16] MEDS: POLYVINYL ALCOHOL OPHT DROPS 15 ML BOTTLE OP SCH ×4 (09:03→20:25)
[2020-06-16] MEDS: HYDROGEN PEROXIDE 3% 118 ML BOTTLE TP SCH ×2 (09:40→21:38)
[2020-06-16] MEDS: JEVITY 1.2 1000 ML LIQUID GT PRN (10:40)
[2020-06-16] MEDS: OMEGA-3 FATTY ACIDS/FISH OIL CAPSULE GT SCH (20:25)
[2020-06-16] MEDS: ENOXAPARIN SODIUM 40 MG/0.4 ML DISP.SYRIN SQ SCH (20:26)
[2020-06-16 20:49] VITALS: BP 131/50
[2020-06-17] MEDS: ALBUTEROL SULFATE 2.5 MG/3 ML NEBU NEB SCH ×4 (00:56→19:03)
[2020-06-17] MEDS: IPRATROPIUM BROMIDE 0.5 MG/2.5 ML NEBU NEB SCH ×4 (00:56→19:03)
[2020-06-17] MEDS: JEVITY 1.2 1000 ML LIQUID GT PRN (02:00)
[2020-06-17] MEDS: OMEPRAZOLE 20 MG CAPSULE.DR GT SCH (06:13)
[2020-06-17] MEDS: ACIDOPHILUS/BULGARICUS CHEW TAB GT SCH ×3 (06:13→21:59)
[2020-06-17] MEDS: VALPROIC ACID 250 MG/5 ML LIQUID UDC GT SCH ×3 (06:13→21:59)
[2020-06-17 07:58] VITALS: BP 120/67
[2020-06-17] MEDS: NUTRISOURCE FIBER 4 GM PACKET GT SCH (08:46)
[2020-06-17] MEDS: BACLOFEN 20 MG TABLET GT SCH ×3 (08:46→20:44)
[2020-06-17] MEDS: Z GUARD REMEDY PASTE 57 GM TUBE TOP SCH ×2 (08:48→20:44)
[2020-06-17] MEDS: PHENOBARBITAL 32.4 MG TABLET GT SCH ×2 (08:48→20:44)
[2020-06-17] MEDS: POLYVINYL ALCOHOL OPHT DROPS 15 ML BOTTLE OP SCH ×4 (08:48→20:44)
[2020-06-17] MEDS: BENZOYL PEROXIDE 10% GEL 60 GM TUBE TP SCH ×2 (09:00→20:44)
[2020-06-17] MEDS: HYDROGEN PEROXIDE 3% 118 ML BOTTLE TP SCH ×2 (09:40→21:07)
--- NOTE | 2020-06-17 13:14 | NUR ---
SPOKE WITH RESPONSIBLE GREEN PARTY, ANDRAE MONTOYA, REGARDING COVID-19 VACCINE ADMINISTRATION. VERBAL CONSENT GIVEN BY ANDRAE MONTOYA FOR PATIENT TO RECEIVE COVID-19 VACCINE.
--- NOTE | 2020-06-17 14:30 | NUR ---
SEEN AND EXAMINED BY DR. PLAZA AND WITH NNO.
[2020-06-17 20:13] VITALS: BP 127/78
[2020-06-17] MEDS: OMEGA-3 FATTY ACIDS/FISH OIL CAPSULE GT SCH (20:44)
[2020-06-17] MEDS: ENOXAPARIN SODIUM 40 MG/0.4 ML DISP.SYRIN SQ SCH (21:58)
[2020-06-18] MEDS: IPRATROPIUM BROMIDE 0.5 MG/2.5 ML NEBU NEB SCH ×4 (00:59→18:57)
[2020-06-18] MEDS: ALBUTEROL SULFATE 2.5 MG/3 ML NEBU NEB SCH ×4 (00:59→18:57)
[2020-06-18] MEDS: VALPROIC ACID 250 MG/5 ML LIQUID UDC GT SCH ×3 (06:07→21:45)
[2020-06-18] MEDS: OMEPRAZOLE 20 MG CAPSULE.DR GT SCH (06:07)
[2020-06-18] MEDS: ACIDOPHILUS/BULGARICUS CHEW TAB GT SCH ×3 (06:07→21:45)
[2020-06-18 07:58] VITALS: BP 103/66
[2020-06-18] MEDS ORDERED: PHENOBARBITAL 32.4 MG TABLET ONE (09:00)
[2020-06-18] MEDS: HYDROGEN PEROXIDE 3% 118 ML BOTTLE TP SCH ×2 (09:00→21:59)
[2020-06-18] MEDS: BENZOYL PEROXIDE 10% GEL 60 GM TUBE TP SCH ×2 (09:00→21:44)
[2020-06-18] MEDS: NUTRISOURCE FIBER 4 GM PACKET GT SCH (09:56)
[2020-06-18] MEDS: BACLOFEN 20 MG TABLET GT SCH ×3 (09:56→21:43)
[2020-06-18] MEDS: PHENOBARBITAL 32.4 MG TABLET GT SCH ×2 (09:57→21:43)
[2020-06-18] MEDS: Z GUARD REMEDY PASTE 57 GM TUBE TOP SCH ×2 (09:57→21:44)
[2020-06-18] MEDS: POLYVINYL ALCOHOL OPHT DROPS 15 ML BOTTLE OP SCH ×4 (09:57→21:43)
--- NOTE | 2020-06-18 10:30 | NUR ---
SEEN BY DR. PLAZA AND WITH NNO.
[2020-06-18] MEDS: JEVITY 1.2 1000 ML LIQUID GT PRN (12:35)
[2020-06-18 20:56] VITALS: BP 140/79
[2020-06-18] MEDS: OMEGA-3 FATTY ACIDS/FISH OIL CAPSULE GT SCH (21:42)
[2020-06-18] MEDS: ENOXAPARIN SODIUM 40 MG/0.4 ML DISP.SYRIN SQ SCH (21:44)
[2020-06-19] MEDS: ALBUTEROL SULFATE 2.5 MG/3 ML NEBU NEB SCH ×4 (01:00→17:56)
[2020-06-19] MEDS: IPRATROPIUM BROMIDE 0.5 MG/2.5 ML NEBU NEB SCH ×4 (01:00→17:56)
[2020-06-19] MEDS: JEVITY 1.2 1000 ML LIQUID GT PRN (04:34)
[2020-06-19] MEDS: ACIDOPHILUS/BULGARICUS CHEW TAB GT SCH ×3 (05:25→22:20)
[2020-06-19] MEDS: VALPROIC ACID 250 MG/5 ML LIQUID UDC GT SCH ×3 (05:25→22:20)
[2020-06-19] MEDS: OMEPRAZOLE 20 MG CAPSULE.DR GT SCH (05:25)
[2020-06-19] MEDS: HYDROGEN PEROXIDE 3% 118 ML BOTTLE TP SCH ×2 (07:41→21:12)
[2020-06-19 07:57] VITALS: BP 121/69
[2020-06-19] MEDS: NUTRISOURCE FIBER 4 GM PACKET GT SCH (08:28)
[2020-06-19] MEDS: BENZOYL PEROXIDE 10% GEL 60 GM TUBE TP SCH ×2 (08:28→20:20)
[2020-06-19] MEDS: BACLOFEN 20 MG TABLET GT SCH ×3 (08:28→20:19)
[2020-06-19] MEDS: POLYVINYL ALCOHOL OPHT DROPS 15 ML BOTTLE OP SCH ×4 (08:28→20:19)
[2020-06-19] MEDS: Z GUARD REMEDY PASTE 57 GM TUBE TOP SCH ×2 (08:28→20:20)
[2020-06-19] MEDS: PHENOBARBITAL 32.4 MG TABLET GT SCH ×2 (08:28→20:19)
[2020-06-19] MEDS ORDERED: PHENOBARBITAL 32.4 MG TABLET ONE (09:00)
--- NOTE | 2020-06-19 17:16 | NUR ---
PT'S MOTHER MICA WAS CALLED AND AWARE WITH A MESSAGE RE: COVID 19 TEST FROM 06/17/20 WAS NEGATIVE.
[2020-06-19 20:00] VITALS: BP 102/68
[2020-06-19] MEDS: OMEGA-3 FATTY ACIDS/FISH OIL CAPSULE GT SCH (20:19)
[2020-06-19] MEDS: ENOXAPARIN SODIUM 40 MG/0.4 ML DISP.SYRIN SQ SCH (20:20)
--- NOTE | 2020-06-19 23:01 | NUR ---
Patient's mother (Siomara) called back and gave consent for the patient to get Covid vaccine via telephone and was witnessed by another license nurse.
[2020-06-20] MEDS: JEVITY 1.2 1000 ML LIQUID GT PRN ×2 (00:45→23:07)
[2020-06-20] MEDS: ALBUTEROL SULFATE 2.5 MG/3 ML NEBU NEB SCH ×4 (00:45→19:15)
[2020-06-20] MEDS: IPRATROPIUM BROMIDE 0.5 MG/2.5 ML NEBU NEB SCH ×4 (00:45→19:15)
[2020-06-20] MEDS: ACIDOPHILUS/BULGARICUS CHEW TAB GT SCH ×3 (06:09→22:01)
[2020-06-20] MEDS: OMEPRAZOLE 20 MG CAPSULE.DR GT SCH (06:09)
[2020-06-20] MEDS: VALPROIC ACID 250 MG/5 ML LIQUID UDC GT SCH ×3 (06:09→22:01)
[2020-06-20 07:51] VITALS: BP 103/55
[2020-06-20] MEDS: BACLOFEN 20 MG TABLET GT SCH ×3 (08:09→20:28)
[2020-06-20] MEDS: PHENOBARBITAL 32.4 MG TABLET GT SCH ×2 (08:10→20:28)
[2020-06-20] MEDS: Z GUARD REMEDY PASTE 57 GM TUBE TOP SCH ×2 (08:10→20:29)
[2020-06-20] MEDS: POLYVINYL ALCOHOL OPHT DROPS 15 ML BOTTLE OP SCH ×4 (08:10→20:28)
[2020-06-20] MEDS: NUTRISOURCE FIBER 4 GM PACKET GT SCH (08:10)
[2020-06-20] MEDS: BENZOYL PEROXIDE 10% GEL 60 GM TUBE TP SCH ×2 (08:10→20:29)
[2020-06-20] MEDS ORDERED: PHENOBARBITAL 32.4 MG TABLET ONE (09:00)
[2020-06-20] MEDS: HYDROGEN PEROXIDE 3% 118 ML BOTTLE TP SCH ×2 (09:22→20:42)
[2020-06-20] MEDS: ENOXAPARIN SODIUM 40 MG/0.4 ML DISP.SYRIN SQ SCH (20:27)
[2020-06-20] MEDS: OMEGA-3 FATTY ACIDS/FISH OIL CAPSULE GT SCH (20:28)
[2020-06-20 20:43] VITALS: BP 111/79
[2020-06-21] MEDS: IPRATROPIUM BROMIDE 0.5 MG/2.5 ML NEBU NEB SCH ×4 (01:01→19:10)
[2020-06-21] MEDS: ALBUTEROL SULFATE 2.5 MG/3 ML NEBU NEB SCH ×4 (01:01→19:10)
[2020-06-21] MEDS: ACIDOPHILUS/BULGARICUS CHEW TAB GT SCH ×3 (05:17→22:23)
[2020-06-21] MEDS: VALPROIC ACID 250 MG/5 ML LIQUID UDC GT SCH ×3 (05:17→22:23)
[2020-06-21] MEDS: OMEPRAZOLE 20 MG CAPSULE.DR GT SCH (05:18)
[2020-06-21] MEDS: HYDROGEN PEROXIDE 3% 118 ML BOTTLE TP SCH ×2 (07:35→21:53)
[2020-06-21 07:44] VITALS: BP 96/64
[2020-06-21] MEDS: NUTRISOURCE FIBER 4 GM PACKET GT SCH (08:34)
[2020-06-21] MEDS: BACLOFEN 20 MG TABLET GT SCH ×3 (08:34→20:09)
[2020-06-21] MEDS: Z GUARD REMEDY PASTE 57 GM TUBE TOP SCH ×2 (08:35→20:09)
[2020-06-21] MEDS: PHENOBARBITAL 32.4 MG TABLET GT SCH ×2 (08:35→20:09)
[2020-06-21] MEDS: POLYVINYL ALCOHOL OPHT DROPS 15 ML BOTTLE OP SCH ×4 (08:35→20:09)
[2020-06-21] MEDS: BENZOYL PEROXIDE 10% GEL 60 GM TUBE TP SCH ×2 (09:00→20:09)
--- NOTE | 2020-06-21 12:54 | NUR ---
PT. WAS SEEN AND EXAMINED BY YOLANDA Grider AND WITH CAROLINO.
[2020-06-21] MEDS: JEVITY 1.2 1000 ML LIQUID GT PRN (17:43)
[2020-06-21] MEDS: OMEGA-3 FATTY ACIDS/FISH OIL CAPSULE GT SCH (20:08)
[2020-06-21] MEDS: ENOXAPARIN SODIUM 40 MG/0.4 ML DISP.SYRIN SQ SCH (20:08)
[2020-06-21 20:49] VITALS: BP 98/52
[2020-06-22] MEDS: IPRATROPIUM BROMIDE 0.5 MG/2.5 ML NEBU NEB SCH ×4 (01:00→19:37)
[2020-06-22] MEDS: ALBUTEROL SULFATE 2.5 MG/3 ML NEBU NEB SCH ×4 (01:00→19:37)
[2020-06-22] MEDS: VALPROIC ACID 250 MG/5 ML LIQUID UDC GT SCH ×3 (05:21→21:48)
[2020-06-22] MEDS: OMEPRAZOLE 20 MG CAPSULE.DR GT SCH (05:21)
[2020-06-22] MEDS: ACIDOPHILUS/BULGARICUS CHEW TAB GT SCH ×3 (05:21→21:48)
[2020-06-22] MEDS: HYDROGEN PEROXIDE 3% 118 ML BOTTLE TP SCH ×2 (07:32→21:35)
[2020-06-22 07:53] VITALS: BP 96/62
[2020-06-22 08:14] LABS: PHENOBARBITAL 34.2 ug/mL (15.0-39.0)
[2020-06-22] MEDS: NUTRISOURCE FIBER 4 GM PACKET GT SCH (09:00)
[2020-06-22] MEDS: PHENOBARBITAL 32.4 MG TABLET GT SCH ×2 (09:00→20:04)
[2020-06-22] MEDS: BACLOFEN 20 MG TABLET GT SCH ×3 (09:00→20:04)
[2020-06-22] MEDS: POLYVINYL ALCOHOL OPHT DROPS 15 ML BOTTLE OP SCH ×4 (09:00→20:04)
[2020-06-22] MEDS: Z GUARD REMEDY PASTE 57 GM TUBE TOP SCH ×2 (09:31→20:04)
[2020-06-22] MEDS: BENZOYL PEROXIDE 10% GEL 60 GM TUBE TP SCH ×2 (09:31→20:04)
[2020-06-22] MEDS: JEVITY 1.2 1000 ML LIQUID GT PRN (12:22)
[2020-06-22 19:45] VITALS: BP 115/83
--- NOTE | 2020-06-22 19:51 | NUR ---
New orders to Give COVID vaccine x 1 carried out.
[2020-06-22] MEDS: OMEGA-3 FATTY ACIDS/FISH OIL CAPSULE GT SCH (20:04)
[2020-06-22] MEDS: ENOXAPARIN SODIUM 40 MG/0.4 ML DISP.SYRIN SQ SCH (20:17)
[2020-06-23] MEDS: ALBUTEROL SULFATE 2.5 MG/3 ML NEBU NEB SCH ×4 (02:00→19:31)
[2020-06-23] MEDS: IPRATROPIUM BROMIDE 0.5 MG/2.5 ML NEBU NEB SCH ×4 (02:00→19:31)
[2020-06-23] MEDS: JEVITY 1.2 1000 ML LIQUID GT PRN (04:02)
[2020-06-23] MEDS: VALPROIC ACID 250 MG/5 ML LIQUID UDC GT SCH ×3 (05:48→22:11)
[2020-06-23] MEDS: ACIDOPHILUS/BULGARICUS CHEW TAB GT SCH ×3 (05:48→22:11)
[2020-06-23] MEDS: OMEPRAZOLE 20 MG CAPSULE.DR GT SCH (05:48)
[2020-06-23 07:50] VITALS: BP 99/69
[2020-06-23] MEDS: PHENOBARBITAL 32.4 MG TABLET GT SCH ×2 (09:19→21:00)
[2020-06-23] MEDS: NUTRISOURCE FIBER 4 GM PACKET GT SCH (09:19)
[2020-06-23] MEDS: BACLOFEN 20 MG TABLET GT SCH ×3 (09:19→21:00)
[2020-06-23] MEDS: POLYVINYL ALCOHOL OPHT DROPS 15 ML BOTTLE OP SCH ×4 (09:20→21:00)
[2020-06-23] MEDS: BENZOYL PEROXIDE 10% GEL 60 GM TUBE TP SCH ×2 (09:20→21:00)
[2020-06-23] MEDS: Z GUARD REMEDY PASTE 57 GM TUBE TOP SCH ×2 (09:20→21:00)
[2020-06-23] MEDS: HYDROGEN PEROXIDE 3% 118 ML BOTTLE TP SCH ×2 (10:08→21:35)
[2020-06-23] MEDS ORDERED: COVID-19 VACC,MRNA(MODERNA)/PF 100 MCG/0.5 ML VIAL IM ONE (18:00)
--- NOTE | 2020-06-23 18:31 | NUR ---
COVID VACCINE WAS GIVEN TO PATIENT AND NO REACTION AT THIS TIME, PATIENT'S MOTHER WAS NOTIFIED.
[2020-06-23 20:09] VITALS: BP 105/80
[2020-06-23] MEDS: OMEGA-3 FATTY ACIDS/FISH OIL CAPSULE GT SCH (21:00)
[2020-06-23] MEDS: ENOXAPARIN SODIUM 40 MG/0.4 ML DISP.SYRIN SQ SCH (21:00)
[2020-06-24] MEDS: JEVITY 1.2 1000 ML LIQUID GT PRN
[2020-06-24] MEDS: IPRATROPIUM BROMIDE 0.5 MG/2.5 ML NEBU NEB SCH ×4 (01:00→18:42)
[2020-06-24] MEDS: ALBUTEROL SULFATE 2.5 MG/3 ML NEBU NEB SCH ×4 (01:00→18:42)
--- NOTE | 2020-06-24 02:57 | NUR ---
S/P COVID-19 vaccination, afebrile, no adverse reaction noted. Site without redness/swelling. Continue to monitor.
[2020-06-24] MEDS: OMEPRAZOLE 20 MG CAPSULE.DR GT SCH (06:54)
[2020-06-24] MEDS: VALPROIC ACID 250 MG/5 ML LIQUID UDC GT SCH ×3 (06:54→22:41)
[2020-06-24] MEDS: ACIDOPHILUS/BULGARICUS CHEW TAB GT SCH ×3 (06:54→22:41)
[2020-06-24] MEDS: HYDROGEN PEROXIDE 3% 118 ML BOTTLE TP SCH ×2 (07:45→18:42)
[2020-06-24 07:52] VITALS: BP 105/68
[2020-06-24] MEDS: Z GUARD REMEDY PASTE 57 GM TUBE TOP SCH ×2 (09:00→20:19)
[2020-06-24] MEDS: PHENOBARBITAL 32.4 MG TABLET GT SCH ×2 (09:00→20:18)
[2020-06-24] MEDS: POLYVINYL ALCOHOL OPHT DROPS 15 ML BOTTLE OP SCH ×4 (09:00→20:18)
[2020-06-24] MEDS: BACLOFEN 20 MG TABLET GT SCH ×3 (09:00→20:18)
[2020-06-24] MEDS: NUTRISOURCE FIBER 4 GM PACKET GT SCH (09:00)
[2020-06-24] MEDS: BENZOYL PEROXIDE 10% GEL 60 GM TUBE TP SCH ×2 (09:00→20:19)
--- NOTE | 2020-06-24 19:14 | NUR ---
no rashes or adverse reaction from moderna covid vaccine observed.
[2020-06-24 19:49] VITALS: BP 116/67
[2020-06-24] MEDS: OMEGA-3 FATTY ACIDS/FISH OIL CAPSULE GT SCH (20:18)
[2020-06-24] MEDS: ENOXAPARIN SODIUM 40 MG/0.4 ML DISP.SYRIN SQ SCH (20:42)
[2020-06-25] MEDS: ALBUTEROL SULFATE 2.5 MG/3 ML NEBU NEB SCH ×4 (01:18→19:30)
[2020-06-25] MEDS: IPRATROPIUM BROMIDE 0.5 MG/2.5 ML NEBU NEB SCH ×4 (01:18→19:30)
--- NOTE | 2020-06-25 03:37 | NUR ---
Patient is afebrile, no signs of any adverse reactions noted from the COVID-19 vaccine.
[2020-06-25] MEDS: ACIDOPHILUS/BULGARICUS CHEW TAB GT SCH ×3 (05:43→21:14)
[2020-06-25] MEDS: VALPROIC ACID 250 MG/5 ML LIQUID UDC GT SCH ×3 (05:43→21:14)
[2020-06-25] MEDS: OMEPRAZOLE 20 MG CAPSULE.DR GT SCH (05:43)
[2020-06-25 07:57] VITALS: BP 99/65
[2020-06-25] MEDS: HYDROGEN PEROXIDE 3% 118 ML BOTTLE TP SCH ×2 (09:00→21:50)
[2020-06-25] MEDS: BENZOYL PEROXIDE 10% GEL 60 GM TUBE TP SCH ×2 (09:31→20:54)
[2020-06-25] MEDS: PHENOBARBITAL 32.4 MG TABLET GT SCH ×2 (09:31→20:54)
[2020-06-25] MEDS: BACLOFEN 20 MG TABLET GT SCH ×3 (09:31→20:54)
[2020-06-25] MEDS: NUTRISOURCE FIBER 4 GM PACKET GT SCH (09:31)
[2020-06-25] MEDS: Z GUARD REMEDY PASTE 57 GM TUBE TOP SCH ×2 (09:31→20:54)
[2020-06-25] MEDS: POLYVINYL ALCOHOL OPHT DROPS 15 ML BOTTLE OP SCH ×4 (09:31→20:54)
--- NOTE | 2020-06-25 18:44 | NUR ---
Pt is afebrile. No s/s of any adverse reaction noted from covid-19 vaccine
[2020-06-25 20:28] VITALS: BP 102/63
[2020-06-25] MEDS: OMEGA-3 FATTY ACIDS/FISH OIL CAPSULE GT SCH (20:54)
[2020-06-25] MEDS: ENOXAPARIN SODIUM 40 MG/0.4 ML DISP.SYRIN SQ SCH (21:15)
--- NOTE | 2020-06-25 22:43 | NUR ---
Patient is afebrile, no signs of adverse effects from Covid-19 vaccine.
--- NOTE | 2020-06-25 22:43 | NUR ---
Noted a bump on patient's right neck, skin is intact with hard induration, handled very gently, kept skin clean and dry, will apply warm compress for now and will continue monitor.
[2020-06-26] MEDS: ALBUTEROL SULFATE 2.5 MG/3 ML NEBU NEB SCH ×4 (01:13→19:34)
[2020-06-26] MEDS: IPRATROPIUM BROMIDE 0.5 MG/2.5 ML NEBU NEB SCH ×4 (01:13→19:34)
[2020-06-26] MEDS: JEVITY 1.2 1000 ML LIQUID GT PRN (02:11)
[2020-06-26] MEDS: VALPROIC ACID 250 MG/5 ML LIQUID UDC GT SCH ×3 (05:51→21:23)
[2020-06-26] MEDS: ACIDOPHILUS/BULGARICUS CHEW TAB GT SCH ×3 (05:51→21:23)
[2020-06-26] MEDS: OMEPRAZOLE 20 MG CAPSULE.DR GT SCH (05:51)
[2020-06-26 07:45] VITALS: BP 100/64
[2020-06-26] MEDS: NUTRISOURCE FIBER 4 GM PACKET GT SCH (08:08)
[2020-06-26] MEDS: BACLOFEN 20 MG TABLET GT SCH ×3 (08:08→20:52)
[2020-06-26] MEDS: BENZOYL PEROXIDE 10% GEL 60 GM TUBE TP SCH ×2 (08:08→20:53)
[2020-06-26] MEDS: POLYVINYL ALCOHOL OPHT DROPS 15 ML BOTTLE OP SCH ×4 (08:08→20:52)
[2020-06-26] MEDS: PHENOBARBITAL 32.4 MG TABLET GT SCH ×2 (08:08→20:52)
[2020-06-26] MEDS: Z GUARD REMEDY PASTE 57 GM TUBE TOP SCH ×2 (08:08→20:52)
[2020-06-26] MEDS: HYDROGEN PEROXIDE 3% 118 ML BOTTLE TP SCH ×2 (09:00→19:34)
--- NOTE | 2020-06-26 18:38 | NUR ---
no rashes or adverse reaction from moderna covid vaccine observed.
[2020-06-26 20:00] VITALS: BP 128/84
[2020-06-26] MEDS: OMEGA-3 FATTY ACIDS/FISH OIL CAPSULE GT SCH (20:52)
[2020-06-26] MEDS: ENOXAPARIN SODIUM 40 MG/0.4 ML DISP.SYRIN SQ SCH (21:23)
[2020-06-27] MEDS: ALBUTEROL SULFATE 2.5 MG/3 ML NEBU NEB SCH ×4 (01:33→19:31)
[2020-06-27] MEDS: IPRATROPIUM BROMIDE 0.5 MG/2.5 ML NEBU NEB SCH ×4 (01:33→19:31)
[2020-06-27] MEDS: VALPROIC ACID 250 MG/5 ML LIQUID UDC GT SCH ×3 (05:22→21:19)
[2020-06-27] MEDS: OMEPRAZOLE 20 MG CAPSULE.DR GT SCH (05:22)
[2020-06-27] MEDS: ACIDOPHILUS/BULGARICUS CHEW TAB GT SCH ×3 (05:22→21:19)
[2020-06-27 08:17] VITALS: BP 106/67
[2020-06-27] MEDS: HYDROGEN PEROXIDE 3% 118 ML BOTTLE TP SCH ×2 (09:40→21:35)
[2020-06-27] MEDS: BACLOFEN 20 MG TABLET GT SCH ×3 (09:45→20:43)
[2020-06-27] MEDS: NUTRISOURCE FIBER 4 GM PACKET GT SCH (09:45)
[2020-06-27] MEDS: BENZOYL PEROXIDE 10% GEL 60 GM TUBE TP SCH ×2 (09:46→20:43)
[2020-06-27] MEDS: PHENOBARBITAL 32.4 MG TABLET GT SCH ×2 (09:46→20:43)
[2020-06-27] MEDS: POLYVINYL ALCOHOL OPHT DROPS 15 ML BOTTLE OP SCH ×4 (09:46→20:43)
[2020-06-27] MEDS: Z GUARD REMEDY PASTE 57 GM TUBE TOP SCH ×2 (09:46→20:43)
--- NOTE | 2020-06-27 13:00 | NUR ---
Seen and examined by Dr Pena,no new orders noted.
[2020-06-27] MEDS: ENOXAPARIN SODIUM 40 MG/0.4 ML DISP.SYRIN SQ SCH (20:42)
[2020-06-27] MEDS: OMEGA-3 FATTY ACIDS/FISH OIL CAPSULE GT SCH (20:43)
[2020-06-27 20:51] VITALS: BP 104/68
[2020-06-28] MEDS: ALBUTEROL SULFATE 2.5 MG/3 ML NEBU NEB SCH (01:55)
[2020-06-28] MEDS: IPRATROPIUM BROMIDE 0.5 MG/2.5 ML NEBU NEB SCH (01:55)
[2020-06-28] MEDS: JEVITY 1.2 1000 ML LIQUID GT PRN (02:00)
[2020-06-28] MEDS: VALPROIC ACID 250 MG/5 ML LIQUID UDC GT SCH (05:32)
[2020-06-28] MEDS: OMEPRAZOLE 20 MG CAPSULE.DR GT SCH (05:32)
[2020-06-28] MEDS: ACIDOPHILUS/BULGARICUS CHEW TAB GT SCH (05:32)
[2020-06-28 07:48] VITALS: BP 105/69
[2020-06-28 20:16] VITALS: BP 120/76
== END 2020-06-24 23:59 | disposition still patient (30) | DRG 189 ==
LOC: SA 13:05
PROVIDERS: ADMIT Internal Medicine; ATTEND Internal Medicine
DX: J96.11 Chronic respiratory failure with hypoxia (principal); G93.1 Anoxic brain damage, not elsewhere classified; J98.11 Atelectasis; L97.329 Non-pressure chronic ulcer of left ankle with unspecified severity; R13.10 Dysphagia, unspecified; Z93.1 Gastrostomy status; N35.919 Unspecified urethral stricture, male, unspecified site; G40.909 Epilepsy, unspecified, not intractable, without status epilepticus; Z93.0 Tracheostomy status; Z86.19 Personal history of other infectious and parasitic diseases; L73.9 Follicular disorder, unspecified; E78.5 Hyperlipidemia, unspecified; Z87.442 Personal history of urinary calculi; Z87.440 Personal history of urinary (tract) infections
CPT/HCPCS: 36415; 80164; 80184; 85025; 86580; 94640; J1650; J2185; J3490; J3590; U0003

== ENCOUNTER 2021-05-08 10:38 | Outpatient (CLI) | payer OTHER ==
[~2021-05-08 10:38] MED LIST changes: +ACET160E36 GT; -ACET160E61 GT
[2021-05-08] MEDS ORDERED: SWABABLE VALVE TRANSFER SET EA MC ONE ×2 (15:04→16:07)
[2021-05-08] MEDS ORDERED: IOHEXOL 300MG/ML 100 ML INFUS..BTL ONE ×2 (15:04→16:07)
[2021-05-08] MEDS ORDERED: IV NORMAL SALINE 250 ML IV ONE ×2 (15:04→16:07)
== END 2021-05-08 23:59 ==
LOC: RAD 10:38
PROVIDERS: ATTEND Registered Nurse Critical Care Medicine
DX: N40.0 Benign prostatic hyperplasia without lower urinary tract symptoms (principal); I70.0 Atherosclerosis of aorta; M85.88 Other specified disorders of bone density and structure, other site; M16.12 Unilateral primary osteoarthritis, left hip; K65.1 Peritoneal abscess
CPT/HCPCS: 72193; Q9967; J7050

== ENCOUNTER 2021-05-24 07:15 | Outpatient (CLI) | payer OTHER ==
[2021-05-24] MEDS ORDERED: IOHEXOL 300MG/ML 100 ML INFUS..BTL ONE (07:46)
[2021-05-24] MEDS ORDERED: IV NORMAL SALINE 250 ML IV ONE (07:46)
[2021-05-24] MEDS ORDERED: SWABABLE VALVE TRANSFER SET EA MC ONE (07:46)
== END 2021-05-24 23:59 | disposition home or self-care (01) ==
LOC: CT 07:15
PROVIDERS: ATTEND Internal Medicine
DX: R19.00 Intra-abdominal and pelvic swelling, mass and lump, unspecified site (principal)
CPT/HCPCS: 72193; Q9967; J7050

== ENCOUNTER 2022-06-25 | Inpatient (IN) | payer OTHER ==
[~2022-06-25] VITALS: Ht 182.9 cm; Wt 91.2 kg
[2022-06-27] VITALS (7 sets, daily range): TEMP 97.9; O2SAT 97–99
[2022-06-27] MEDS: ALBUTEROL SULFATE 2.5 MG/3 ML NEBU NEB SCH ×3 (07:55→19:50)
[2022-06-27] MEDS: IPRATROPIUM BROMIDE 0.5 MG/2.5 ML NEBU NEB SCH ×3 (07:55→19:50)
[2022-06-27] MEDS ORDERED: HYDROGEN PEROXIDE 3% 118 ML BOTTLE TP PRN (08:00)
[2022-06-27] MEDS ORDERED: ALBUTEROL SULFATE 2.5 MG/3 ML NEBU NEB PRN (08:00)
[2022-06-27] MEDS ORDERED: IPRATROPIUM BROMIDE 0.5 MG/2.5 ML NEBU NEB PRN (08:00)
[2022-06-27] MEDS ORDERED: BISACODYL 10 MG SUPP.RECT RC PRN (08:00)
[2022-06-27] MEDS ORDERED: ACETAMINOPHEN 650 MG/20 ML UDC- SA PATIENTS-FEVER ONLY GT PRN (08:00)
[2022-06-27] MEDS: POLYVINYL ALCOHOL OPHT DROPS 15 ML BOTTLE EACHEYE SCH ×4 (08:41→21:00)
[2022-06-27] MEDS: PHENOBARBITAL 32.4 MG TABLET GT SCH ×2 (08:41→21:00)
[2022-06-27] MEDS: BACLOFEN 20 MG TABLET GT SCH ×3 (08:41→21:00)
[2022-06-27] MEDS: BENZOYL PEROXIDE 10% GEL 60 GM TUBE TP SCH ×2 (08:41→21:00)
[2022-06-27] MEDS: REMEDY ESSENTIAL ZINC PASTE 113 GM TP SCH ×2 (08:42→21:00)
[2022-06-27] MEDS: HYDROGEN PEROXIDE 3% 118 ML BOTTLE TP SCH ×2 (09:19→21:41)
[2022-06-27] MEDS: JEVITY 1.2 1000 ML LIQUID GT PRN (11:05)
[2022-06-27] MEDS ORDERED: ALBUTEROL SULFATE 2.5 MG/3 ML NEBU NEB SCH (13:30)
[2022-06-27] MEDS: VALPROIC ACID 250 MG/5 ML LIQUID UDC GT SCH ×2 (13:55→22:00)
[2022-06-27] MEDS: ACIDOPHILUS/BULGARICUS CHEW TAB GT SCH ×2 (13:55→22:00)
[2022-06-27] MEDS: NUTRISOURCE FIBER 4 GM PACKET GT SCH (21:00)
[2022-06-27] MEDS: OMEGA-3 FATTY ACIDS/FISH OIL CAPSULE GT SCH (21:00)
[2022-06-27] MEDS: LATANOPROST OPHT DROP 2.5 ML BOTTLE EACHEYE SCH (21:00)
[2022-06-28] VITALS (10 sets, daily range): TEMP 97.2–98; O2SAT 96–99
[2022-06-28] MEDS: ALBUTEROL SULFATE 2.5 MG/3 ML NEBU NEB SCH ×4 (00:40→19:37)
[2022-06-28] MEDS: IPRATROPIUM BROMIDE 0.5 MG/2.5 ML NEBU NEB SCH ×4 (00:40→19:37)
[2022-06-28] MEDS: VALPROIC ACID 250 MG/5 ML LIQUID UDC GT SCH ×3 (05:11→22:34)
[2022-06-28] MEDS: OMEPRAZOLE 20 MG CAPSULE.DR GT SCH (05:12)
[2022-06-28] MEDS: ACIDOPHILUS/BULGARICUS CHEW TAB GT SCH ×3 (05:12→22:34)
[2022-06-28] MEDS: REMEDY ESSENTIAL ZINC PASTE 113 GM TP SCH ×2 (08:05→21:00)
[2022-06-28] MEDS: POLYVINYL ALCOHOL OPHT DROPS 15 ML BOTTLE EACHEYE SCH ×4 (08:05→21:00)
[2022-06-28] MEDS: BENZOYL PEROXIDE 10% GEL 60 GM TUBE TP SCH ×2 (08:05→21:00)
[2022-06-28] MEDS: PHENOBARBITAL 32.4 MG TABLET GT SCH ×2 (08:05→21:00)
[2022-06-28] MEDS: BACLOFEN 20 MG TABLET GT SCH ×3 (08:05→21:00)
[2022-06-28] MEDS: HYDROGEN PEROXIDE 3% 118 ML BOTTLE TP SCH ×2 (09:00→19:37)
[2022-06-28] MEDS: NUTRISOURCE FIBER 4 GM PACKET GT SCH (21:00)
[2022-06-28] MEDS: OMEGA-3 FATTY ACIDS/FISH OIL CAPSULE GT SCH (21:00)
[2022-06-28] MEDS: LATANOPROST OPHT DROP 2.5 ML BOTTLE EACHEYE SCH (21:00)
[2022-06-29] VITALS (10 sets, daily range): TEMP 97.2–97.5; O2SAT 96–99
[2022-06-29] MEDS: ALBUTEROL SULFATE 2.5 MG/3 ML NEBU NEB SCH ×4 (01:05→19:23)
[2022-06-29] MEDS: IPRATROPIUM BROMIDE 0.5 MG/2.5 ML NEBU NEB SCH ×4 (01:05→19:23)
[2022-06-29] MEDS: JEVITY 1.2 1000 ML LIQUID GT PRN (01:07)
[2022-06-29] MEDS: VALPROIC ACID 250 MG/5 ML LIQUID UDC GT SCH ×3 (06:44→21:40)
[2022-06-29] MEDS: OMEPRAZOLE 20 MG CAPSULE.DR GT SCH (06:44)
[2022-06-29] MEDS: ACIDOPHILUS/BULGARICUS CHEW TAB GT SCH ×3 (06:44→21:40)
[2022-06-29] MEDS: PHENOBARBITAL 32.4 MG TABLET GT SCH ×2 (08:35→21:39)
[2022-06-29] MEDS: POLYVINYL ALCOHOL OPHT DROPS 15 ML BOTTLE EACHEYE SCH ×4 (08:35→21:39)
[2022-06-29] MEDS: BACLOFEN 20 MG TABLET GT SCH ×3 (08:35→21:39)
[2022-06-29] MEDS: BENZOYL PEROXIDE 10% GEL 60 GM TUBE TP SCH ×2 (08:35→21:39)
[2022-06-29] MEDS: REMEDY ESSENTIAL ZINC PASTE 113 GM TP SCH ×2 (08:36→21:40)
[2022-06-29] MEDS: HYDROGEN PEROXIDE 3% 118 ML BOTTLE TP SCH ×2 (09:52→21:39)
[2022-06-29] MEDS: NUTRISOURCE FIBER 4 GM PACKET GT SCH (21:39)
[2022-06-29] MEDS: LATANOPROST OPHT DROP 2.5 ML BOTTLE EACHEYE SCH (21:39)
[2022-06-29] MEDS: OMEGA-3 FATTY ACIDS/FISH OIL CAPSULE GT SCH (21:39)
[2022-06-30] VITALS (8 sets, daily range): TEMP 97–97.4; O2SAT 96–99
[2022-06-30] MEDS: ALBUTEROL SULFATE 2.5 MG/3 ML NEBU NEB SCH ×4 (01:30→19:19)
[2022-06-30] MEDS: IPRATROPIUM BROMIDE 0.5 MG/2.5 ML NEBU NEB SCH ×4 (01:30→19:19)
[2022-06-30] MEDS: VALPROIC ACID 250 MG/5 ML LIQUID UDC GT SCH ×3 (06:13→21:37)
[2022-06-30] MEDS: OMEPRAZOLE 20 MG CAPSULE.DR GT SCH (06:13)
[2022-06-30] MEDS: ACIDOPHILUS/BULGARICUS CHEW TAB GT SCH ×3 (06:13→21:38)
[2022-06-30] MEDS: HYDROGEN PEROXIDE 3% 118 ML BOTTLE TP SCH ×2 (09:14→21:52)
[2022-06-30] MEDS: BACLOFEN 20 MG TABLET GT SCH ×3 (09:30→21:43)
[2022-06-30] MEDS: POLYVINYL ALCOHOL OPHT DROPS 15 ML BOTTLE EACHEYE SCH ×4 (09:30→21:36)
[2022-06-30] MEDS: PHENOBARBITAL 32.4 MG TABLET GT SCH ×2 (09:30→21:42)
[2022-06-30] MEDS: BENZOYL PEROXIDE 10% GEL 60 GM TUBE TP SCH ×2 (09:30→21:37)
[2022-06-30] MEDS: REMEDY ESSENTIAL ZINC PASTE 113 GM TP SCH ×2 (09:30→21:37)
[2022-06-30] MEDS: OMEGA-3 FATTY ACIDS/FISH OIL CAPSULE GT SCH (21:36)
[2022-06-30] MEDS: LATANOPROST OPHT DROP 2.5 ML BOTTLE EACHEYE SCH (21:36)
[2022-06-30] MEDS: NUTRISOURCE FIBER 4 GM PACKET GT SCH (21:37)
[2022-07-01] VITALS (10 sets, daily range): TEMP 97.6–97.8; O2SAT 96–99
[2022-07-01] MEDS: IPRATROPIUM BROMIDE 0.5 MG/2.5 ML NEBU NEB SCH ×4 (01:44→19:50)
[2022-07-01] MEDS: ALBUTEROL SULFATE 2.5 MG/3 ML NEBU NEB SCH ×4 (01:44→19:50)
[2022-07-01] MEDS: JEVITY 1.2 1000 ML LIQUID GT PRN ×2 (01:54→23:45)
[2022-07-01] MEDS: ACIDOPHILUS/BULGARICUS CHEW TAB GT SCH ×3 (05:31→22:00)
[2022-07-01] MEDS: VALPROIC ACID 250 MG/5 ML LIQUID UDC GT SCH ×3 (05:31→22:00)
[2022-07-01] MEDS: OMEPRAZOLE 20 MG CAPSULE.DR GT SCH (06:08)
[2022-07-01] MEDS: REMEDY ESSENTIAL ZINC PASTE 113 GM TP SCH ×2 (08:12→21:00)
[2022-07-01] MEDS: BENZOYL PEROXIDE 10% GEL 60 GM TUBE TP SCH ×2 (08:12→21:00)
[2022-07-01] MEDS: BACLOFEN 20 MG TABLET GT SCH ×3 (08:12→21:00)
[2022-07-01] MEDS: POLYVINYL ALCOHOL OPHT DROPS 15 ML BOTTLE EACHEYE SCH ×4 (08:12→21:00)
[2022-07-01] MEDS: PHENOBARBITAL 32.4 MG TABLET GT SCH ×2 (08:12→21:00)
[2022-07-01] MEDS: HYDROGEN PEROXIDE 3% 118 ML BOTTLE TP SCH ×2 (08:44→21:00)
[2022-07-01] MEDS: OMEGA-3 FATTY ACIDS/FISH OIL CAPSULE GT SCH (21:00)
[2022-07-01] MEDS: NUTRISOURCE FIBER 4 GM PACKET GT SCH (21:00)
[2022-07-01] MEDS: LATANOPROST OPHT DROP 2.5 ML BOTTLE EACHEYE SCH (21:00)
[2022-07-02] VITALS (8 sets, daily range): TEMP 97.6–98; O2SAT 96–99
[2022-07-02] MEDS: IPRATROPIUM BROMIDE 0.5 MG/2.5 ML NEBU NEB SCH ×4 (00:40→19:35)
[2022-07-02] MEDS: ALBUTEROL SULFATE 2.5 MG/3 ML NEBU NEB SCH ×4 (00:40→19:35)
[2022-07-02] MEDS: OMEPRAZOLE 20 MG CAPSULE.DR GT SCH (06:34)
[2022-07-02] MEDS: VALPROIC ACID 250 MG/5 ML LIQUID UDC GT SCH ×3 (06:34→22:34)
[2022-07-02] MEDS: ACIDOPHILUS/BULGARICUS CHEW TAB GT SCH ×3 (06:34→22:34)
[2022-07-02] MEDS: BACLOFEN 20 MG TABLET GT SCH ×3 (08:08→21:00)
[2022-07-02] MEDS: PHENOBARBITAL 32.4 MG TABLET GT SCH ×2 (08:08→21:00)
[2022-07-02] MEDS: BENZOYL PEROXIDE 10% GEL 60 GM TUBE TP SCH ×2 (08:08→21:00)
[2022-07-02] MEDS: REMEDY ESSENTIAL ZINC PASTE 113 GM TP SCH ×2 (08:08→21:00)
[2022-07-02] MEDS: POLYVINYL ALCOHOL OPHT DROPS 15 ML BOTTLE EACHEYE SCH ×4 (08:08→21:00)
[2022-07-02] MEDS: HYDROGEN PEROXIDE 3% 118 ML BOTTLE TP SCH ×2 (09:28→21:00)
[2022-07-02] MEDS: OMEGA-3 FATTY ACIDS/FISH OIL CAPSULE GT SCH (21:00)
[2022-07-02] MEDS: LATANOPROST OPHT DROP 2.5 ML BOTTLE EACHEYE SCH (21:00)
[2022-07-02] MEDS: NUTRISOURCE FIBER 4 GM PACKET GT SCH (21:00)
[2022-07-03] VITALS (10 sets, daily range): TEMP 98–98.7; O2SAT 96–99
[2022-07-03] MEDS: ALBUTEROL SULFATE 2.5 MG/3 ML NEBU NEB SCH ×4 (01:46→19:36)
[2022-07-03] MEDS: IPRATROPIUM BROMIDE 0.5 MG/2.5 ML NEBU NEB SCH ×4 (01:46→19:36)
[2022-07-03] MEDS: VALPROIC ACID 250 MG/5 ML LIQUID UDC GT SCH ×3 (05:41→22:00)
[2022-07-03] MEDS: ACIDOPHILUS/BULGARICUS CHEW TAB GT SCH ×3 (05:42→22:00)
[2022-07-03] MEDS: OMEPRAZOLE 20 MG CAPSULE.DR GT SCH (05:42)
[2022-07-03] MEDS: POLYVINYL ALCOHOL OPHT DROPS 15 ML BOTTLE EACHEYE SCH ×4 (09:40→21:00)
[2022-07-03] MEDS: BENZOYL PEROXIDE 10% GEL 60 GM TUBE TP SCH ×2 (09:40→21:00)
[2022-07-03] MEDS: REMEDY ESSENTIAL ZINC PASTE 113 GM TP SCH ×2 (09:40→21:00)
[2022-07-03] MEDS: BACLOFEN 20 MG TABLET GT SCH ×3 (09:40→21:00)
[2022-07-03] MEDS: PHENOBARBITAL 32.4 MG TABLET GT SCH ×2 (09:40→21:00)
[2022-07-03] MEDS: HYDROGEN PEROXIDE 3% 118 ML BOTTLE TP SCH ×2 (09:57→21:00)
[2022-07-03] MEDS: JEVITY 1.2 1000 ML LIQUID GT PRN (13:00)
[2022-07-03] MEDS: LATANOPROST OPHT DROP 2.5 ML BOTTLE EACHEYE SCH (21:00)
[2022-07-03] MEDS: NUTRISOURCE FIBER 4 GM PACKET GT SCH (21:00)
[2022-07-03] MEDS: OMEGA-3 FATTY ACIDS/FISH OIL CAPSULE GT SCH (21:00)
[2022-07-04] VITALS (9 sets, daily range): TEMP 98.5; O2SAT 96–99
[2022-07-04] MEDS: IPRATROPIUM BROMIDE 0.5 MG/2.5 ML NEBU NEB SCH ×4 (01:34→20:13)
[2022-07-04] MEDS: ALBUTEROL SULFATE 2.5 MG/3 ML NEBU NEB SCH ×4 (01:34→20:13)
[2022-07-04] MEDS: VALPROIC ACID 250 MG/5 ML LIQUID UDC GT SCH ×3 (06:00→22:53)
[2022-07-04] MEDS: OMEPRAZOLE 20 MG CAPSULE.DR GT SCH (06:00)
[2022-07-04] MEDS: ACIDOPHILUS/BULGARICUS CHEW TAB GT SCH ×3 (06:00→22:54)
[2022-07-04] MEDS: HYDROGEN PEROXIDE 3% 118 ML BOTTLE TP SCH ×2 (07:43→20:13)
[2022-07-04] MEDS: PHENOBARBITAL 32.4 MG TABLET GT SCH ×2 (09:19→22:53)
[2022-07-04] MEDS: POLYVINYL ALCOHOL OPHT DROPS 15 ML BOTTLE EACHEYE SCH ×4 (09:19→21:00)
[2022-07-04] MEDS: BACLOFEN 20 MG TABLET GT SCH ×3 (09:19→21:00)
[2022-07-04] MEDS: BENZOYL PEROXIDE 10% GEL 60 GM TUBE TP SCH ×2 (09:20→21:00)
[2022-07-04] MEDS: REMEDY ESSENTIAL ZINC PASTE 113 GM TP SCH ×2 (09:20→21:00)
[2022-07-04] MEDS: NUTRISOURCE FIBER 4 GM PACKET GT SCH (21:00)
[2022-07-04] MEDS: OMEGA-3 FATTY ACIDS/FISH OIL CAPSULE GT SCH (21:00)
[2022-07-04] MEDS: LATANOPROST OPHT DROP 2.5 ML BOTTLE EACHEYE SCH (21:00)
[2022-07-05] VITALS (10 sets, daily range): TEMP 97.6–98.1; O2SAT 97–99
[2022-07-05] MEDS: ALBUTEROL SULFATE 2.5 MG/3 ML NEBU NEB SCH ×4 (01:11→19:40)
[2022-07-05] MEDS: IPRATROPIUM BROMIDE 0.5 MG/2.5 ML NEBU NEB SCH ×4 (01:11→19:40)
[2022-07-05] MEDS: OMEPRAZOLE 20 MG CAPSULE.DR GT SCH (06:00)
[2022-07-05] MEDS: ACIDOPHILUS/BULGARICUS CHEW TAB GT SCH ×3 (06:00→21:30)
[2022-07-05] MEDS: VALPROIC ACID 250 MG/5 ML LIQUID UDC GT SCH ×3 (06:00→21:30)
[2022-07-05] MEDS: POLYVINYL ALCOHOL OPHT DROPS 15 ML BOTTLE EACHEYE SCH ×4 (08:36→21:30)
[2022-07-05] MEDS: PHENOBARBITAL 32.4 MG TABLET GT SCH ×2 (08:36→21:30)
[2022-07-05] MEDS: REMEDY ESSENTIAL ZINC PASTE 113 GM TP SCH ×2 (08:36→21:30)
[2022-07-05] MEDS: BENZOYL PEROXIDE 10% GEL 60 GM TUBE TP SCH ×2 (08:36→21:30)
[2022-07-05] MEDS: BACLOFEN 20 MG TABLET GT SCH ×3 (08:36→21:30)
[2022-07-05] MEDS: HYDROGEN PEROXIDE 3% 118 ML BOTTLE TP SCH ×2 (09:10→21:30)
[2022-07-05] MEDS: LATANOPROST OPHT DROP 2.5 ML BOTTLE EACHEYE SCH (21:30)
[2022-07-05] MEDS: NUTRISOURCE FIBER 4 GM PACKET GT SCH (21:30)
[2022-07-05] MEDS: OMEGA-3 FATTY ACIDS/FISH OIL CAPSULE GT SCH (21:30)
[2022-07-06] VITALS (10 sets, daily range): TEMP 98.1; O2SAT 96–99
[2022-07-06] MEDS: ALBUTEROL SULFATE 2.5 MG/3 ML NEBU NEB SCH ×4 (00:50→19:50)
[2022-07-06] MEDS: IPRATROPIUM BROMIDE 0.5 MG/2.5 ML NEBU NEB SCH ×4 (00:50→19:50)
[2022-07-06] MEDS: ACIDOPHILUS/BULGARICUS CHEW TAB GT SCH ×3 (05:22→21:20)
[2022-07-06] MEDS: OMEPRAZOLE 20 MG CAPSULE.DR GT SCH (05:22)
[2022-07-06] MEDS: VALPROIC ACID 250 MG/5 ML LIQUID UDC GT SCH ×3 (05:22→21:20)
[2022-07-06] MEDS: HYDROGEN PEROXIDE 3% 118 ML BOTTLE TP SCH ×2 (07:59→21:00)
[2022-07-06] MEDS: POLYVINYL ALCOHOL OPHT DROPS 15 ML BOTTLE EACHEYE SCH ×4 (08:36→21:20)
[2022-07-06] MEDS: BENZOYL PEROXIDE 10% GEL 60 GM TUBE TP SCH ×2 (08:38→21:20)
[2022-07-06] MEDS: REMEDY ESSENTIAL ZINC PASTE 113 GM TP SCH ×2 (08:38→21:20)
[2022-07-06] MEDS: BACLOFEN 20 MG TABLET GT SCH ×3 (08:38→21:20)
[2022-07-06] MEDS: PHENOBARBITAL 32.4 MG TABLET GT SCH ×2 (08:38→21:20)
[2022-07-06] MEDS: JEVITY 1.2 1000 ML LIQUID GT PRN (17:57)
[2022-07-06] MEDS: OMEGA-3 FATTY ACIDS/FISH OIL CAPSULE GT SCH (21:20)
[2022-07-06] MEDS: LATANOPROST OPHT DROP 2.5 ML BOTTLE EACHEYE SCH (21:20)
[2022-07-06] MEDS: NUTRISOURCE FIBER 4 GM PACKET GT SCH (21:20)
[2022-07-07] VITALS (10 sets, daily range): TEMP 97.2–98; O2SAT 96–99
[2022-07-07] MEDS: IPRATROPIUM BROMIDE 0.5 MG/2.5 ML NEBU NEB SCH ×4 (01:42→19:37)
[2022-07-07] MEDS: ALBUTEROL SULFATE 2.5 MG/3 ML NEBU NEB SCH ×4 (01:43→19:37)
[2022-07-07] MEDS: ACIDOPHILUS/BULGARICUS CHEW TAB GT SCH ×3 (05:27→21:15)
[2022-07-07] MEDS: OMEPRAZOLE 20 MG CAPSULE.DR GT SCH (05:27)
[2022-07-07] MEDS: VALPROIC ACID 250 MG/5 ML LIQUID UDC GT SCH ×3 (05:27→21:15)
[2022-07-07] MEDS: HYDROGEN PEROXIDE 3% 118 ML BOTTLE TP SCH ×2 (08:07→21:14)
[2022-07-07] MEDS: POLYVINYL ALCOHOL OPHT DROPS 15 ML BOTTLE EACHEYE SCH ×4 (08:54→21:14)
[2022-07-07] MEDS: BACLOFEN 20 MG TABLET GT SCH ×3 (08:54→21:15)
[2022-07-07] MEDS: REMEDY ESSENTIAL ZINC PASTE 113 GM TP SCH ×2 (08:55→21:15)
[2022-07-07] MEDS: BENZOYL PEROXIDE 10% GEL 60 GM TUBE TP SCH ×2 (08:55→21:15)
[2022-07-07] MEDS: PHENOBARBITAL 32.4 MG TABLET GT SCH ×2 (08:55→21:15)
[2022-07-07] MEDS: JEVITY 1.2 1000 ML LIQUID GT PRN (13:02)
[2022-07-07] MEDS: LATANOPROST OPHT DROP 2.5 ML BOTTLE EACHEYE SCH (21:14)
[2022-07-07] MEDS: OMEGA-3 FATTY ACIDS/FISH OIL CAPSULE GT SCH (21:14)
[2022-07-07] MEDS: NUTRISOURCE FIBER 4 GM PACKET GT SCH (21:15)
[2022-07-08] VITALS (10 sets, daily range): TEMP 97.7–97.9; O2SAT 96–99
[2022-07-08] MEDS: ALBUTEROL SULFATE 2.5 MG/3 ML NEBU NEB SCH ×4 (00:55→19:15)
[2022-07-08] MEDS: IPRATROPIUM BROMIDE 0.5 MG/2.5 ML NEBU NEB SCH ×4 (00:55→19:15)
[2022-07-08] MEDS: JEVITY 1.2 1000 ML LIQUID GT PRN (04:32)
[2022-07-08] MEDS: VALPROIC ACID 250 MG/5 ML LIQUID UDC GT SCH ×3 (05:06→21:41)
[2022-07-08] MEDS: OMEPRAZOLE 20 MG CAPSULE.DR GT SCH (05:06)
[2022-07-08] MEDS: ACIDOPHILUS/BULGARICUS CHEW TAB GT SCH ×3 (05:06→21:41)
[2022-07-08] MEDS: HYDROGEN PEROXIDE 3% 118 ML BOTTLE TP SCH ×2 (07:58→21:11)
[2022-07-08] MEDS: REMEDY ESSENTIAL ZINC PASTE 113 GM TP SCH ×2 (08:49→21:41)
[2022-07-08] MEDS: PHENOBARBITAL 32.4 MG TABLET GT SCH ×2 (08:49→21:41)
[2022-07-08] MEDS: BACLOFEN 20 MG TABLET GT SCH ×3 (08:49→21:41)
[2022-07-08] MEDS: POLYVINYL ALCOHOL OPHT DROPS 15 ML BOTTLE EACHEYE SCH ×4 (08:49→21:41)
[2022-07-08] MEDS: BENZOYL PEROXIDE 10% GEL 60 GM TUBE TP SCH ×2 (08:49→21:41)
[2022-07-08] MEDS: LATANOPROST OPHT DROP 2.5 ML BOTTLE EACHEYE SCH (21:41)
[2022-07-08] MEDS: OMEGA-3 FATTY ACIDS/FISH OIL CAPSULE GT SCH (21:41)
[2022-07-08] MEDS: NUTRISOURCE FIBER 4 GM PACKET GT SCH (21:41)
[2022-07-09] VITALS (10 sets, daily range): TEMP 97.6–98.3; O2SAT 96–99
[2022-07-09] MEDS: IPRATROPIUM BROMIDE 0.5 MG/2.5 ML NEBU NEB SCH ×4 (00:50→19:30)
[2022-07-09] MEDS: ALBUTEROL SULFATE 2.5 MG/3 ML NEBU NEB SCH ×4 (00:50→19:30)
[2022-07-09] MEDS: JEVITY 1.2 1000 ML LIQUID GT PRN (01:43)
[2022-07-09] MEDS: OMEPRAZOLE 20 MG CAPSULE.DR GT SCH (05:11)
[2022-07-09] MEDS: ACIDOPHILUS/BULGARICUS CHEW TAB GT SCH ×3 (05:11→21:46)
[2022-07-09] MEDS: VALPROIC ACID 250 MG/5 ML LIQUID UDC GT SCH ×3 (05:11→21:46)
[2022-07-09] MEDS: BENZOYL PEROXIDE 10% GEL 60 GM TUBE TP SCH ×2 (08:38→21:45)
[2022-07-09] MEDS: REMEDY ESSENTIAL ZINC PASTE 113 GM TP SCH ×2 (08:38→21:46)
[2022-07-09] MEDS: PHENOBARBITAL 32.4 MG TABLET GT SCH ×2 (08:38→21:45)
[2022-07-09] MEDS: POLYVINYL ALCOHOL OPHT DROPS 15 ML BOTTLE EACHEYE SCH ×4 (08:38→21:45)
[2022-07-09] MEDS: BACLOFEN 20 MG TABLET GT SCH ×3 (08:38→21:45)
[2022-07-09] MEDS: HYDROGEN PEROXIDE 3% 118 ML BOTTLE TP SCH ×2 (09:29→21:47)
[2022-07-09] MEDS: OMEGA-3 FATTY ACIDS/FISH OIL CAPSULE GT SCH (21:45)
[2022-07-09] MEDS: LATANOPROST OPHT DROP 2.5 ML BOTTLE EACHEYE SCH (21:45)
[2022-07-09] MEDS: NUTRISOURCE FIBER 4 GM PACKET GT SCH (21:45)
[2022-07-10] VITALS (10 sets, daily range): TEMP 97.6–98.7; O2SAT 97–99
[2022-07-10] MEDS: JEVITY 1.2 1000 ML LIQUID GT PRN (00:28)
[2022-07-10] MEDS: IPRATROPIUM BROMIDE 0.5 MG/2.5 ML NEBU NEB SCH ×4 (00:55→19:50)
[2022-07-10] MEDS: ALBUTEROL SULFATE 2.5 MG/3 ML NEBU NEB SCH ×4 (00:55→19:50)
[2022-07-10] MEDS: OMEPRAZOLE 20 MG CAPSULE.DR GT SCH (05:36)
[2022-07-10] MEDS: VALPROIC ACID 250 MG/5 ML LIQUID UDC GT SCH ×3 (05:36→22:00)
[2022-07-10] MEDS: ACIDOPHILUS/BULGARICUS CHEW TAB GT SCH ×3 (05:36→22:00)
[2022-07-10] MEDS: HYDROGEN PEROXIDE 3% 118 ML BOTTLE TP SCH ×2 (07:23→21:33)
[2022-07-10] MEDS: REMEDY ESSENTIAL ZINC PASTE 113 GM TP SCH ×2 (08:20→21:00)
[2022-07-10] MEDS: BENZOYL PEROXIDE 10% GEL 60 GM TUBE TP SCH ×2 (08:20→21:00)
[2022-07-10] MEDS: PHENOBARBITAL 32.4 MG TABLET GT SCH ×2 (08:20→21:00)
[2022-07-10] MEDS: POLYVINYL ALCOHOL OPHT DROPS 15 ML BOTTLE EACHEYE SCH ×4 (08:20→21:00)
[2022-07-10] MEDS: BACLOFEN 20 MG TABLET GT SCH ×3 (08:20→21:00)
[2022-07-10] MEDS: NUTRISOURCE FIBER 4 GM PACKET GT SCH (21:00)
[2022-07-10] MEDS: LATANOPROST OPHT DROP 2.5 ML BOTTLE EACHEYE SCH (21:00)
[2022-07-10] MEDS: OMEGA-3 FATTY ACIDS/FISH OIL CAPSULE GT SCH (21:00)
[2022-07-11] VITALS (9 sets, daily range): TEMP 97.7–97.9; O2SAT 95–99
[2022-07-11] MEDS: IPRATROPIUM BROMIDE 0.5 MG/2.5 ML NEBU NEB SCH ×4 (00:47→19:26)
[2022-07-11] MEDS: ALBUTEROL SULFATE 2.5 MG/3 ML NEBU NEB SCH ×4 (00:47→19:26)
[2022-07-11] MEDS: JEVITY 1.2 1000 ML LIQUID GT PRN (02:15)
[2022-07-11] MEDS: OMEPRAZOLE 20 MG CAPSULE.DR GT SCH (06:00)
[2022-07-11] MEDS: ACIDOPHILUS/BULGARICUS CHEW TAB GT SCH ×3 (06:00→22:43)
[2022-07-11] MEDS: VALPROIC ACID 250 MG/5 ML LIQUID UDC GT SCH ×3 (06:00→22:43)
[2022-07-11] MEDS: HYDROGEN PEROXIDE 3% 118 ML BOTTLE TP SCH ×2 (07:20→19:26)
[2022-07-11] MEDS: POLYVINYL ALCOHOL OPHT DROPS 15 ML BOTTLE EACHEYE SCH ×4 (08:25→20:36)
[2022-07-11] MEDS: BENZOYL PEROXIDE 10% GEL 60 GM TUBE TP SCH ×2 (08:25→20:37)
[2022-07-11] MEDS: BACLOFEN 20 MG TABLET GT SCH ×3 (08:25→20:37)
[2022-07-11] MEDS: PHENOBARBITAL 32.4 MG TABLET GT SCH ×2 (08:25→20:37)
[2022-07-11] MEDS: REMEDY ESSENTIAL ZINC PASTE 113 GM TP SCH ×2 (08:26→20:37)
[2022-07-11] MEDS: LATANOPROST OPHT DROP 2.5 ML BOTTLE EACHEYE SCH (20:37)
[2022-07-11] MEDS: OMEGA-3 FATTY ACIDS/FISH OIL CAPSULE GT SCH (20:37)
[2022-07-11] MEDS: NUTRISOURCE FIBER 4 GM PACKET GT SCH (20:37)
[2022-07-12] VITALS (10 sets, daily range): TEMP 97.7–98.8; O2SAT 97–99
[2022-07-12] MEDS: IPRATROPIUM BROMIDE 0.5 MG/2.5 ML NEBU NEB SCH ×4 (01:19→19:12)
[2022-07-12] MEDS: ALBUTEROL SULFATE 2.5 MG/3 ML NEBU NEB SCH ×4 (01:19→19:12)
[2022-07-12] MEDS: JEVITY 1.2 1000 ML LIQUID GT PRN (04:10)
[2022-07-12] MEDS: OMEPRAZOLE 20 MG CAPSULE.DR GT SCH (05:11)
[2022-07-12] MEDS: ACIDOPHILUS/BULGARICUS CHEW TAB GT SCH ×3 (05:11→21:09)
[2022-07-12] MEDS: VALPROIC ACID 250 MG/5 ML LIQUID UDC GT SCH ×3 (05:11→21:09)
[2022-07-12] MEDS: POLYVINYL ALCOHOL OPHT DROPS 15 ML BOTTLE EACHEYE SCH ×4 (08:17→21:09)
[2022-07-12] MEDS: BACLOFEN 20 MG TABLET GT SCH ×3 (08:17→21:18)
[2022-07-12] MEDS: PHENOBARBITAL 32.4 MG TABLET GT SCH ×2 (08:17→21:18)
[2022-07-12] MEDS: REMEDY ESSENTIAL ZINC PASTE 113 GM TP SCH ×2 (08:18→21:09)
[2022-07-12] MEDS: BENZOYL PEROXIDE 10% GEL 60 GM TUBE TP SCH ×2 (08:18→21:09)
[2022-07-12] MEDS: HYDROGEN PEROXIDE 3% 118 ML BOTTLE TP SCH ×2 (09:24→19:12)
[2022-07-12] MEDS: LATANOPROST OPHT DROP 2.5 ML BOTTLE EACHEYE SCH (21:09)
[2022-07-12] MEDS: NUTRISOURCE FIBER 4 GM PACKET GT SCH (21:09)
[2022-07-12] MEDS: OMEGA-3 FATTY ACIDS/FISH OIL CAPSULE GT SCH (21:09)
[2022-07-13] VITALS (10 sets, daily range): TEMP 96.4–97; O2SAT 97–99
[2022-07-13] MEDS: IPRATROPIUM BROMIDE 0.5 MG/2.5 ML NEBU NEB SCH ×4 (00:52→19:12)
[2022-07-13] MEDS: ALBUTEROL SULFATE 2.5 MG/3 ML NEBU NEB SCH ×4 (00:53→19:12)
[2022-07-13] MEDS: JEVITY 1.2 1000 ML LIQUID GT PRN (06:20)
[2022-07-13] MEDS: VALPROIC ACID 250 MG/5 ML LIQUID UDC GT SCH ×3 (06:20→22:00)
[2022-07-13] MEDS: ACIDOPHILUS/BULGARICUS CHEW TAB GT SCH ×3 (06:20→22:00)
[2022-07-13] MEDS: OMEPRAZOLE 20 MG CAPSULE.DR GT SCH (06:20)
[2022-07-13] MEDS: HYDROGEN PEROXIDE 3% 118 ML BOTTLE TP SCH ×2 (07:29→19:12)
[2022-07-13] MEDS: REMEDY ESSENTIAL ZINC PASTE 113 GM TP SCH ×2 (08:51→21:00)
[2022-07-13] MEDS: POLYVINYL ALCOHOL OPHT DROPS 15 ML BOTTLE EACHEYE SCH ×4 (08:51→21:00)
[2022-07-13] MEDS: PHENOBARBITAL 32.4 MG TABLET GT SCH ×2 (08:51→21:00)
[2022-07-13] MEDS: BACLOFEN 20 MG TABLET GT SCH ×3 (08:51→21:00)
[2022-07-13] MEDS: BENZOYL PEROXIDE 10% GEL 60 GM TUBE TP SCH ×2 (08:51→21:00)
[2022-07-13] MEDS: NUTRISOURCE FIBER 4 GM PACKET GT SCH (21:00)
[2022-07-13] MEDS: OMEGA-3 FATTY ACIDS/FISH OIL CAPSULE GT SCH (21:00)
[2022-07-13] MEDS: LATANOPROST OPHT DROP 2.5 ML BOTTLE EACHEYE SCH (21:00)
[2022-07-14] VITALS (11 sets, daily range): TEMP 96.3–97; O2SAT 97–99
[2022-07-14] MEDS: IPRATROPIUM BROMIDE 0.5 MG/2.5 ML NEBU NEB SCH ×4 (01:10→19:11)
[2022-07-14] MEDS: ALBUTEROL SULFATE 2.5 MG/3 ML NEBU NEB SCH ×4 (01:10→19:12)
[2022-07-14] MEDS: VALPROIC ACID 250 MG/5 ML LIQUID UDC GT SCH ×3 (06:47→22:39)
[2022-07-14] MEDS: ACIDOPHILUS/BULGARICUS CHEW TAB GT SCH ×3 (06:47→22:40)
[2022-07-14] MEDS: OMEPRAZOLE 20 MG CAPSULE.DR GT SCH (06:47)
[2022-07-14] MEDS: HYDROGEN PEROXIDE 3% 118 ML BOTTLE TP SCH ×2 (09:00→19:12)
[2022-07-14] MEDS: REMEDY ESSENTIAL ZINC PASTE 113 GM TP SCH ×2 (09:00→21:00)
[2022-07-14] MEDS: BENZOYL PEROXIDE 10% GEL 60 GM TUBE TP SCH ×2 (09:10→21:00)
[2022-07-14] MEDS: PHENOBARBITAL 32.4 MG TABLET GT SCH ×2 (09:10→21:00)
[2022-07-14] MEDS: BACLOFEN 20 MG TABLET GT SCH ×3 (09:10→21:00)
[2022-07-14] MEDS: POLYVINYL ALCOHOL OPHT DROPS 15 ML BOTTLE EACHEYE SCH ×4 (09:10→21:00)
[2022-07-14] MEDS: OMEGA-3 FATTY ACIDS/FISH OIL CAPSULE GT SCH (21:00)
[2022-07-14] MEDS: LATANOPROST OPHT DROP 2.5 ML BOTTLE EACHEYE SCH (21:00)
[2022-07-14] MEDS: NUTRISOURCE FIBER 4 GM PACKET GT SCH (21:00)
[2022-07-15] VITALS (10 sets, daily range): TEMP 97–98; O2SAT 97–99
[2022-07-15] MEDS: ALBUTEROL SULFATE 2.5 MG/3 ML NEBU NEB SCH ×4 (01:02→19:02)
[2022-07-15] MEDS: IPRATROPIUM BROMIDE 0.5 MG/2.5 ML NEBU NEB SCH ×4 (01:02→19:02)
[2022-07-15] MEDS: JEVITY 1.2 1000 ML LIQUID GT PRN (03:00)
[2022-07-15] MEDS: VALPROIC ACID 250 MG/5 ML LIQUID UDC GT SCH ×3 (06:38→22:00)
[2022-07-15] MEDS: OMEPRAZOLE 20 MG CAPSULE.DR GT SCH (06:38)
[2022-07-15] MEDS: ACIDOPHILUS/BULGARICUS CHEW TAB GT SCH ×3 (06:38→22:00)
[2022-07-15] MEDS: HYDROGEN PEROXIDE 3% 118 ML BOTTLE TP SCH ×2 (07:30→19:02)
[2022-07-15] MEDS: BENZOYL PEROXIDE 10% GEL 60 GM TUBE TP SCH ×2 (09:00→21:00)
[2022-07-15] MEDS: PHENOBARBITAL 32.4 MG TABLET GT SCH ×2 (09:00→21:00)
[2022-07-15] MEDS: BACLOFEN 20 MG TABLET GT SCH ×3 (09:00→21:00)
[2022-07-15] MEDS: REMEDY ESSENTIAL ZINC PASTE 113 GM TP SCH ×2 (09:00→21:00)
[2022-07-15] MEDS: POLYVINYL ALCOHOL OPHT DROPS 15 ML BOTTLE EACHEYE SCH ×4 (09:00→21:00)
[2022-07-15] MEDS: OMEGA-3 FATTY ACIDS/FISH OIL CAPSULE GT SCH (21:00)
[2022-07-15] MEDS: LATANOPROST OPHT DROP 2.5 ML BOTTLE EACHEYE SCH (21:00)
[2022-07-15] MEDS: NUTRISOURCE FIBER 4 GM PACKET GT SCH (21:00)
[2022-07-16] VITALS (11 sets, daily range): BP systolic 115; BP diastolic 65; TEMP 97.2–97.6; O2SAT 97–100
[2022-07-16] MEDS: IPRATROPIUM BROMIDE 0.5 MG/2.5 ML NEBU NEB SCH ×4 (01:04→19:13)
[2022-07-16] MEDS: ALBUTEROL SULFATE 2.5 MG/3 ML NEBU NEB SCH ×4 (01:04→19:13)
[2022-07-16] MEDS: JEVITY 1.2 1000 ML LIQUID GT PRN (04:00)
[2022-07-16] MEDS: OMEPRAZOLE 20 MG CAPSULE.DR GT SCH (06:36)
[2022-07-16] MEDS: ACIDOPHILUS/BULGARICUS CHEW TAB GT SCH ×3 (06:36→22:00)
[2022-07-16] MEDS: VALPROIC ACID 250 MG/5 ML LIQUID UDC GT SCH ×3 (06:36→22:00)
[2022-07-16] MEDS: POLYVINYL ALCOHOL OPHT DROPS 15 ML BOTTLE EACHEYE SCH ×4 (08:26→21:00)
[2022-07-16] MEDS: BENZOYL PEROXIDE 10% GEL 60 GM TUBE TP SCH ×2 (08:26→21:00)
[2022-07-16] MEDS: PHENOBARBITAL 32.4 MG TABLET GT SCH ×2 (08:26→21:00)
[2022-07-16] MEDS: BACLOFEN 20 MG TABLET GT SCH ×3 (08:26→21:00)
[2022-07-16] MEDS: REMEDY ESSENTIAL ZINC PASTE 113 GM TP SCH ×2 (08:26→21:00)
[2022-07-16] MEDS: HYDROGEN PEROXIDE 3% 118 ML BOTTLE TP SCH ×2 (09:43→21:09)
[2022-07-16] MEDS: NUTRISOURCE FIBER 4 GM PACKET GT SCH (21:00)
[2022-07-16] MEDS: OMEGA-3 FATTY ACIDS/FISH OIL CAPSULE GT SCH (21:00)
[2022-07-16] MEDS: LATANOPROST OPHT DROP 2.5 ML BOTTLE EACHEYE SCH (21:00)
[2022-07-17] VITALS (10 sets, daily range): TEMP 98.6–99.5; O2SAT 98–100
[2022-07-17] MEDS: IPRATROPIUM BROMIDE 0.5 MG/2.5 ML NEBU NEB SCH ×4 (00:42→19:30)
[2022-07-17] MEDS: ALBUTEROL SULFATE 2.5 MG/3 ML NEBU NEB SCH ×4 (00:42→19:30)
[2022-07-17] MEDS: JEVITY 1.2 1000 ML LIQUID GT PRN (05:00)
[2022-07-17] MEDS: OMEPRAZOLE 20 MG CAPSULE.DR GT SCH (06:30)
[2022-07-17] MEDS: VALPROIC ACID 250 MG/5 ML LIQUID UDC GT SCH ×3 (06:30→22:51)
[2022-07-17] MEDS: ACIDOPHILUS/BULGARICUS CHEW TAB GT SCH ×3 (06:30→22:51)
[2022-07-17] MEDS: REMEDY ESSENTIAL ZINC PASTE 113 GM TP SCH ×2 (08:32→21:00)
[2022-07-17] MEDS: BACLOFEN 20 MG TABLET GT SCH ×3 (08:32→21:00)
[2022-07-17] MEDS: PHENOBARBITAL 32.4 MG TABLET GT SCH ×2 (08:32→21:00)
[2022-07-17] MEDS: POLYVINYL ALCOHOL OPHT DROPS 15 ML BOTTLE EACHEYE SCH ×4 (08:32→21:00)
[2022-07-17] MEDS: BENZOYL PEROXIDE 10% GEL 60 GM TUBE TP SCH ×2 (08:32→21:00)
[2022-07-17] MEDS: HYDROGEN PEROXIDE 3% 118 ML BOTTLE TP SCH ×2 (09:38→21:00)
[2022-07-17] MEDS: LATANOPROST OPHT DROP 2.5 ML BOTTLE EACHEYE SCH (21:00)
[2022-07-17] MEDS: OMEGA-3 FATTY ACIDS/FISH OIL CAPSULE GT SCH (21:00)
[2022-07-17] MEDS: NUTRISOURCE FIBER 4 GM PACKET GT SCH (21:00)
[2022-07-18] VITALS (10 sets, daily range): TEMP 97.7–98.6; O2SAT 98–99
[2022-07-18] MEDS: IPRATROPIUM BROMIDE 0.5 MG/2.5 ML NEBU NEB SCH ×4 (01:40→19:15)
[2022-07-18] MEDS: ALBUTEROL SULFATE 2.5 MG/3 ML NEBU NEB SCH ×4 (01:40→19:15)
[2022-07-18] MEDS: JEVITY 1.2 1000 ML LIQUID GT PRN (02:00)
[2022-07-18] MEDS: ACIDOPHILUS/BULGARICUS CHEW TAB GT SCH ×3 (06:46→22:38)
[2022-07-18] MEDS: OMEPRAZOLE 20 MG CAPSULE.DR GT SCH (06:46)
[2022-07-18] MEDS: VALPROIC ACID 250 MG/5 ML LIQUID UDC GT SCH ×3 (06:46→22:38)
[2022-07-18] MEDS: HYDROGEN PEROXIDE 3% 118 ML BOTTLE TP SCH ×2 (07:16→21:00)
[2022-07-18] MEDS: REMEDY ESSENTIAL ZINC PASTE 113 GM TP SCH ×2 (08:33→21:00)
[2022-07-18] MEDS: BENZOYL PEROXIDE 10% GEL 60 GM TUBE TP SCH ×2 (08:33→21:00)
[2022-07-18] MEDS: BACLOFEN 20 MG TABLET GT SCH ×3 (08:33→21:00)
[2022-07-18] MEDS: PHENOBARBITAL 32.4 MG TABLET GT SCH ×2 (08:33→21:00)
[2022-07-18] MEDS: POLYVINYL ALCOHOL OPHT DROPS 15 ML BOTTLE EACHEYE SCH ×4 (08:33→21:00)
[2022-07-18 11:35] LABS: BASOPHILS % (AUTO) 0.2 % (0.0-2.0); EOSINOPHILS # (AUTO) 0.1 K/uL (0.0-0.7); HEMATOCRIT 37.7 % (36.7-47.1); HEMOGLOBIN 12.7 g/dL (12.5-16.3); LYMPHOCYTES # (AUTO) 1.6 K/uL (0.8-4.8); LYMPHOCYTES % (AUTO) 13.9 % (20.5-51.5); MEAN CORPUSCULAR HEMOGLOBIN 31.9 uug (23.8-33.4); MEAN CORPUSCULAR HGB CONC 34 g/dL (32.5-36.3); MEAN CORPUSCULAR VOLUME 94.4 fL (73.0-96.2); MONOCYTES # (AUTO) 1.1 K/uL (0.1-1.30); NEUTROPHILS # (AUTO) 8.4 K/uL (1.8-8.9); NEUTROPHILS % (AUTO) 74.9 % (38.5-71.5); PLATELET COUNT (AUTO) 183 K/uL (152-348); RED BLOOD CELL COUNT(AUTO) 3.99 MIL/uL (4.06-5.63); WHITE BLOOD COUNT (AUTO) 11.2 K/uL (3.6-10.2)
[2022-07-18 11:48] LABS: ALANINE AMINOTRANSFERASE 30 U/L (16-63); ALBUMIN 3.2 g/dL (3.4-5.0); ALKALINE PHOSPHATASE 153 U/L (50-136); ASPARTATE AMINOTRANSFERASE 20 U/L (15-37); BILIRUBIN,TOTAL 0.6 mg/dL (0.2-1.0); CALCIUM 9.1 mg/dL (8.5-10.1); CARBON DIOXIDE 30 mmol/L (21-32); CHLORIDE 100 mmol/L (98-107); CREATININE 0.4 mg/dL (0.6-1.3); GLUCOSE 128 mg/dL (74-106); POTASSIUM 4.5 mmol/L (3.5-5.1); SODIUM SERUM 136 mmol/L (136-145); TOTAL PROTEIN, SERUM 7.8 g/dL (6.4-8.2); UREA NITROGEN, BLOOD 19 mg/dL (7-18)
[2022-07-18 19:07] LABS: *BILIRUBIN,URIN NEGATIVE (NEGATIVE); *CLARITY,URINE CLOUDY (CLEAR); *COLOR,URINE YELLOW (YELLOW); *KETONES,URINE 1+ (NEGATIVE); *PROTEIN,URINE 1+ (NEGATIVE); LEUKOCYTE ESTERASE ,URINE 1+ (NEGATIVE); NITRITE, URINE POSITIVE (NEGATIVE); UGLUCOSE NEGATIVE (NEGATIVE)
[2022-07-18 19:08] LABS: *BLOOD, URINE TRACE (NEGATIVE)
[2022-07-18 19:58] LABS: BACTERIA,URINE MANY /HPF (NONE SEEN); SQUAMOUS EPITHELIAL CELL,UR FEW /HPF (NONE SEEN); TRIPLE PHOSPHATE CRYSTAL,UR FEW /HPF (NONE SEEN)
[2022-07-18] MEDS: OMEGA-3 FATTY ACIDS/FISH OIL CAPSULE GT SCH (21:00)
[2022-07-18] MEDS: LATANOPROST OPHT DROP 2.5 ML BOTTLE EACHEYE SCH (21:00)
[2022-07-18] MEDS: NUTRISOURCE FIBER 4 GM PACKET GT SCH (21:00)
[2022-07-19] VITALS (10 sets, daily range): TEMP 97.1–97.6; O2SAT 97–99
[2022-07-19] MEDS: IPRATROPIUM BROMIDE 0.5 MG/2.5 ML NEBU NEB SCH ×4 (00:48→19:50)
[2022-07-19] MEDS: ALBUTEROL SULFATE 2.5 MG/3 ML NEBU NEB SCH ×4 (00:48→19:50)
[2022-07-19] MEDS: JEVITY 1.2 1000 ML LIQUID GT PRN (02:07)
[2022-07-19] MEDS: ACIDOPHILUS/BULGARICUS CHEW TAB GT SCH ×3 (06:00→21:36)
[2022-07-19] MEDS: VALPROIC ACID 250 MG/5 ML LIQUID UDC GT SCH ×3 (06:00→21:36)
[2022-07-19] MEDS: OMEPRAZOLE 20 MG CAPSULE.DR GT SCH (06:00)
[2022-07-19] MEDS: POLYVINYL ALCOHOL OPHT DROPS 15 ML BOTTLE EACHEYE SCH ×4 (08:28→21:33)
[2022-07-19] MEDS: BACLOFEN 20 MG TABLET GT SCH ×3 (08:28→21:38)
[2022-07-19] MEDS: PHENOBARBITAL 32.4 MG TABLET GT SCH ×2 (08:28→21:38)
[2022-07-19] MEDS: BENZOYL PEROXIDE 10% GEL 60 GM TUBE TP SCH ×2 (08:28→21:35)
[2022-07-19] MEDS: REMEDY ESSENTIAL ZINC PASTE 113 GM TP SCH ×2 (08:28→21:35)
[2022-07-19] MEDS: HYDROGEN PEROXIDE 3% 118 ML BOTTLE TP SCH ×2 (09:07→21:00)
[2022-07-19] MEDS: CEFEPIME HCL 1 G in IV DEXTROSE 5% 50 ML IV SCH (20:26)
[2022-07-19] MEDS: OMEGA-3 FATTY ACIDS/FISH OIL CAPSULE GT SCH (21:33)
[2022-07-19] MEDS: LATANOPROST OPHT DROP 2.5 ML BOTTLE EACHEYE SCH (21:33)
[2022-07-19] MEDS: NUTRISOURCE FIBER 4 GM PACKET GT SCH (21:35)
[2022-07-20] VITALS (10 sets, daily range): TEMP 97.1–97.3; O2SAT 98–99
[2022-07-20] MEDS: ALBUTEROL SULFATE 2.5 MG/3 ML NEBU NEB SCH ×4 (00:42→19:30)
[2022-07-20] MEDS: IPRATROPIUM BROMIDE 0.5 MG/2.5 ML NEBU NEB SCH ×4 (00:42→19:30)
[2022-07-20] MEDS: JEVITY 1.2 1000 ML LIQUID GT PRN ×2 (03:00→18:33)
[2022-07-20] MEDS: ACIDOPHILUS/BULGARICUS CHEW TAB GT SCH ×3 (06:55→21:21)
[2022-07-20] MEDS: OMEPRAZOLE 20 MG CAPSULE.DR GT SCH (06:55)
[2022-07-20] MEDS: VALPROIC ACID 250 MG/5 ML LIQUID UDC GT SCH ×3 (06:55→21:21)
[2022-07-20] MEDS: HYDROGEN PEROXIDE 3% 118 ML BOTTLE TP SCH ×2 (08:09→21:00)
[2022-07-20] MEDS: POLYVINYL ALCOHOL OPHT DROPS 15 ML BOTTLE EACHEYE SCH ×4 (09:28→21:21)
[2022-07-20] MEDS: PHENOBARBITAL 32.4 MG TABLET GT SCH ×2 (09:29→21:21)
[2022-07-20] MEDS: BENZOYL PEROXIDE 10% GEL 60 GM TUBE TP SCH ×2 (09:29→21:21)
[2022-07-20] MEDS: BACLOFEN 20 MG TABLET GT SCH ×3 (09:29→21:21)
[2022-07-20] MEDS: REMEDY ESSENTIAL ZINC PASTE 113 GM TP SCH ×2 (09:29→21:21)
[2022-07-20] MEDS: CEFEPIME HCL 1 G in IV DEXTROSE 5% 50 ML IV SCH ×2 (09:40→20:45)
[2022-07-20] MEDS: LATANOPROST OPHT DROP 2.5 ML BOTTLE EACHEYE SCH (21:21)
[2022-07-20] MEDS: NUTRISOURCE FIBER 4 GM PACKET GT SCH (21:21)
[2022-07-20] MEDS: OMEGA-3 FATTY ACIDS/FISH OIL CAPSULE GT SCH (21:21)
[2022-07-21] VITALS (10 sets, daily range): TEMP 97.6–98.8; O2SAT 99
[2022-07-21] MEDS: ALBUTEROL SULFATE 2.5 MG/3 ML NEBU NEB SCH ×4 (01:38→19:38)
[2022-07-21] MEDS: IPRATROPIUM BROMIDE 0.5 MG/2.5 ML NEBU NEB SCH ×4 (01:38→19:38)
[2022-07-21] MEDS: VALPROIC ACID 250 MG/5 ML LIQUID UDC GT SCH ×3 (05:26→21:50)
[2022-07-21] MEDS: OMEPRAZOLE 20 MG CAPSULE.DR GT SCH (05:26)
[2022-07-21] MEDS: ACIDOPHILUS/BULGARICUS CHEW TAB GT SCH ×3 (05:26→21:50)
[2022-07-21] MEDS: HYDROGEN PEROXIDE 3% 118 ML BOTTLE TP SCH ×2 (07:35→21:22)
[2022-07-21] MEDS: CEFEPIME HCL 1 G in IV DEXTROSE 5% 50 ML IV SCH ×2 (09:20→21:00)
[2022-07-21] MEDS: REMEDY ESSENTIAL ZINC PASTE 113 GM TP SCH ×2 (09:43→21:50)
[2022-07-21] MEDS: BACLOFEN 20 MG TABLET GT SCH ×3 (09:43→21:50)
[2022-07-21] MEDS: POLYVINYL ALCOHOL OPHT DROPS 15 ML BOTTLE EACHEYE SCH ×4 (09:43→21:49)
[2022-07-21] MEDS: PHENOBARBITAL 32.4 MG TABLET GT SCH ×2 (09:43→21:50)
[2022-07-21] MEDS: BENZOYL PEROXIDE 10% GEL 60 GM TUBE TP SCH ×2 (09:43→21:50)
[2022-07-21] MEDS: JEVITY 1.2 1000 ML LIQUID GT PRN (14:10)
[2022-07-21] MEDS: OMEGA-3 FATTY ACIDS/FISH OIL CAPSULE GT SCH (21:50)
[2022-07-21] MEDS: NUTRISOURCE FIBER 4 GM PACKET GT SCH (21:50)
[2022-07-21] MEDS: LATANOPROST OPHT DROP 2.5 ML BOTTLE EACHEYE SCH (21:50)
[2022-07-22] VITALS (10 sets, daily range): TEMP 97.6; O2SAT 98–99
[2022-07-22] MEDS: ALBUTEROL SULFATE 2.5 MG/3 ML NEBU NEB SCH ×4 (00:55→20:22)
[2022-07-22] MEDS: IPRATROPIUM BROMIDE 0.5 MG/2.5 ML NEBU NEB SCH ×4 (00:55→20:22)
[2022-07-22] MEDS: OMEPRAZOLE 20 MG CAPSULE.DR GT SCH (06:07)
[2022-07-22] MEDS: VALPROIC ACID 250 MG/5 ML LIQUID UDC GT SCH ×3 (06:07→21:54)
[2022-07-22] MEDS: ACIDOPHILUS/BULGARICUS CHEW TAB GT SCH ×3 (06:07→21:54)
[2022-07-22] MEDS: HYDROGEN PEROXIDE 3% 118 ML BOTTLE TP SCH ×2 (07:21→21:14)
[2022-07-22] MEDS: POLYVINYL ALCOHOL OPHT DROPS 15 ML BOTTLE EACHEYE SCH ×4 (08:49→21:54)
[2022-07-22] MEDS: REMEDY ESSENTIAL ZINC PASTE 113 GM TP SCH ×2 (08:50→21:54)
[2022-07-22] MEDS: BACLOFEN 20 MG TABLET GT SCH ×3 (08:50→21:54)
[2022-07-22] MEDS: BENZOYL PEROXIDE 10% GEL 60 GM TUBE TP SCH ×2 (08:51→21:54)
[2022-07-22] MEDS: CEFEPIME HCL 1 G in IV DEXTROSE 5% 50 ML IV SCH ×2 (08:51→21:00)
[2022-07-22] MEDS: PHENOBARBITAL 32.4 MG TABLET GT SCH ×2 (08:58→21:54)
[2022-07-22] MEDS: LATANOPROST OPHT DROP 2.5 ML BOTTLE EACHEYE SCH (21:54)
[2022-07-22] MEDS: OMEGA-3 FATTY ACIDS/FISH OIL CAPSULE GT SCH (21:54)
[2022-07-22] MEDS: NUTRISOURCE FIBER 4 GM PACKET GT SCH (21:54)
[2022-07-23] VITALS (10 sets, daily range): TEMP 97.1–97.7; O2SAT 98–99
[2022-07-23] MEDS: IPRATROPIUM BROMIDE 0.5 MG/2.5 ML NEBU NEB SCH ×4 (00:50→19:54)
[2022-07-23] MEDS: ALBUTEROL SULFATE 2.5 MG/3 ML NEBU NEB SCH ×4 (00:50→19:54)
[2022-07-23] MEDS: OMEPRAZOLE 20 MG CAPSULE.DR GT SCH (05:56)
[2022-07-23] MEDS: VALPROIC ACID 250 MG/5 ML LIQUID UDC GT SCH ×3 (05:56→21:18)
[2022-07-23] MEDS: ACIDOPHILUS/BULGARICUS CHEW TAB GT SCH ×3 (05:56→21:18)
[2022-07-23] MEDS: BACLOFEN 20 MG TABLET GT SCH ×3 (09:00→21:17)
[2022-07-23] MEDS: HYDROGEN PEROXIDE 3% 118 ML BOTTLE TP SCH ×2 (09:00→21:04)
[2022-07-23] MEDS: BENZOYL PEROXIDE 10% GEL 60 GM TUBE TP SCH ×2 (09:00→21:18)
[2022-07-23] MEDS: REMEDY ESSENTIAL ZINC PASTE 113 GM TP SCH ×2 (09:00→21:18)
[2022-07-23] MEDS: POLYVINYL ALCOHOL OPHT DROPS 15 ML BOTTLE EACHEYE SCH ×4 (09:00→21:17)
[2022-07-23] MEDS: PHENOBARBITAL 32.4 MG TABLET GT SCH ×2 (09:00→21:17)
[2022-07-23] MEDS: CEFEPIME HCL 1 G in IV DEXTROSE 5% 50 ML IV SCH ×2 (09:00→23:00)
[2022-07-23] MEDS: LATANOPROST OPHT DROP 2.5 ML BOTTLE EACHEYE SCH (21:17)
[2022-07-23] MEDS: OMEGA-3 FATTY ACIDS/FISH OIL CAPSULE GT SCH (21:17)
[2022-07-23] MEDS: NUTRISOURCE FIBER 4 GM PACKET GT SCH (21:17)
[2022-07-24] VITALS (10 sets, daily range): TEMP 97.6–98; O2SAT 98–99
[2022-07-24] MEDS: IPRATROPIUM BROMIDE 0.5 MG/2.5 ML NEBU NEB SCH ×4 (00:55→19:30)
[2022-07-24] MEDS: ALBUTEROL SULFATE 2.5 MG/3 ML NEBU NEB SCH ×4 (00:55→19:30)
[2022-07-24] MEDS: VALPROIC ACID 250 MG/5 ML LIQUID UDC GT SCH ×3 (05:23→21:43)
[2022-07-24] MEDS: OMEPRAZOLE 20 MG CAPSULE.DR GT SCH (05:23)
[2022-07-24] MEDS: ACIDOPHILUS/BULGARICUS CHEW TAB GT SCH ×3 (05:23→21:43)
[2022-07-24] MEDS: REMEDY ESSENTIAL ZINC PASTE 113 GM TP SCH ×2 (08:07→21:43)
[2022-07-24] MEDS: BACLOFEN 20 MG TABLET GT SCH ×3 (08:07→21:43)
[2022-07-24] MEDS: BENZOYL PEROXIDE 10% GEL 60 GM TUBE TP SCH ×2 (08:07→21:43)
[2022-07-24] MEDS: PHENOBARBITAL 32.4 MG TABLET GT SCH ×2 (08:07→21:43)
[2022-07-24] MEDS: POLYVINYL ALCOHOL OPHT DROPS 15 ML BOTTLE EACHEYE SCH ×4 (08:07→21:43)
[2022-07-24] MEDS: CEFEPIME HCL 1 G in IV DEXTROSE 5% 50 ML IV SCH (09:01)
[2022-07-24] MEDS: HYDROGEN PEROXIDE 3% 118 ML BOTTLE TP SCH ×2 (09:41→20:31)
[2022-07-24 11:01] LABS: CALCIUM 8.3 mg/dL (8.5-10.1); CARBON DIOXIDE 25 mmol/L (21-32); CHLORIDE 102 mmol/L (98-107); CREATININE 0.3 mg/dL (0.6-1.3); GLUCOSE 144 mg/dL (74-106); POTASSIUM 4.4 mmol/L (3.5-5.1); SODIUM SERUM 137 mmol/L (136-145); UREA NITROGEN, BLOOD 11 mg/dL (7-18)
[2022-07-24 11:50] LABS: BASOPHILS % (AUTO) 0.8 % (0.0-2.0); EOSINOPHILS # (AUTO) 0.1 K/uL (0.0-0.7); EOSINOPHILS % (AUTO) 2.9 % (0.0-7.0); HEMATOCRIT 38.7 % (36.7-47.1); LYMPHOCYTES % (AUTO) 22.2 % (20.5-51.5); MEAN CORPUSCULAR HEMOGLOBIN 31.9 uug (23.8-33.4); MEAN CORPUSCULAR HGB CONC 34 g/dL (32.5-36.3); MEAN CORPUSCULAR VOLUME 95.1 fL (73.0-96.2); MONOCYTES # (AUTO) 0.4 K/uL (0.1-1.30); MONOCYTES % (AUTO) 8.7 % (0.0-11.0); NEUTROPHILS % (AUTO) 65.4 % (38.5-71.5); PLATELET COUNT (AUTO) 200 K/uL (152-348); RED BLOOD CELL COUNT(AUTO) 4.07 MIL/uL (4.06-5.63); RED CELL DISTRIBUTION WIDTH 14.9 % (12.1-16.2); WHITE BLOOD COUNT (AUTO) 4.6 K/uL (3.6-10.2)
[2022-07-24] MEDS: JEVITY 1.2 1000 ML LIQUID GT PRN (13:43)
[2022-07-24] MEDS: NUTRISOURCE FIBER 4 GM PACKET GT SCH (21:43)
[2022-07-24] MEDS: OMEGA-3 FATTY ACIDS/FISH OIL CAPSULE GT SCH (21:43)
[2022-07-24] MEDS: LATANOPROST OPHT DROP 2.5 ML BOTTLE EACHEYE SCH (21:43)
[2022-07-24] MEDS: CEFTRIAXONE 1 G in IV DEXTROSE 5% 50 ML IV SCH (23:45)
[2022-07-25] VITALS (10 sets, daily range): TEMP 97.6–97.8; O2SAT 98–99
[2022-07-25] MEDS: IPRATROPIUM BROMIDE 0.5 MG/2.5 ML NEBU NEB SCH ×4 (02:01→19:35)
[2022-07-25] MEDS: ALBUTEROL SULFATE 2.5 MG/3 ML NEBU NEB SCH ×4 (02:01→19:35)
[2022-07-25] MEDS: JEVITY 1.2 1000 ML LIQUID GT PRN (03:52)
[2022-07-25] MEDS: VALPROIC ACID 250 MG/5 ML LIQUID UDC GT SCH ×3 (05:30→22:32)
[2022-07-25] MEDS: OMEPRAZOLE 20 MG CAPSULE.DR GT SCH (05:30)
[2022-07-25] MEDS: ACIDOPHILUS/BULGARICUS CHEW TAB GT SCH ×3 (05:30→22:32)
[2022-07-25] MEDS: BACLOFEN 20 MG TABLET GT SCH ×3 (08:31→20:40)
[2022-07-25] MEDS: BENZOYL PEROXIDE 10% GEL 60 GM TUBE TP SCH ×2 (08:31→20:41)
[2022-07-25] MEDS: POLYVINYL ALCOHOL OPHT DROPS 15 ML BOTTLE EACHEYE SCH ×4 (08:31→20:38)
[2022-07-25] MEDS: PHENOBARBITAL 32.4 MG TABLET GT SCH ×2 (08:31→20:41)
[2022-07-25] MEDS: REMEDY ESSENTIAL ZINC PASTE 113 GM TP SCH ×2 (08:32→20:41)
[2022-07-25] MEDS: HYDROGEN PEROXIDE 3% 118 ML BOTTLE TP SCH ×2 (09:55→19:35)
[2022-07-25] MEDS: OMEGA-3 FATTY ACIDS/FISH OIL CAPSULE GT SCH (20:39)
[2022-07-25] MEDS: LATANOPROST OPHT DROP 2.5 ML BOTTLE EACHEYE SCH (20:39)
[2022-07-25] MEDS: NUTRISOURCE FIBER 4 GM PACKET GT SCH (20:40)
[2022-07-25] MEDS: CEFTRIAXONE 1 G in IV DEXTROSE 5% 50 ML IV SCH (20:47)
[2022-07-26] VITALS (10 sets, daily range): TEMP 97.7–97.8; O2SAT 98–99
[2022-07-26] MEDS: JEVITY 1.2 1000 ML LIQUID GT PRN (01:00)
[2022-07-26] MEDS: ALBUTEROL SULFATE 2.5 MG/3 ML NEBU NEB SCH ×5 (01:30→19:20)
[2022-07-26] MEDS: IPRATROPIUM BROMIDE 0.5 MG/2.5 ML NEBU NEB SCH ×5 (01:30→19:20)
[2022-07-26] MEDS: VALPROIC ACID 250 MG/5 ML LIQUID UDC GT SCH ×3 (06:31→21:48)
[2022-07-26] MEDS: OMEPRAZOLE 20 MG CAPSULE.DR GT SCH (06:31)
[2022-07-26] MEDS: ACIDOPHILUS/BULGARICUS CHEW TAB GT SCH ×3 (06:31→21:48)
[2022-07-26] MEDS: BACLOFEN 20 MG TABLET GT SCH ×3 (08:39→20:45)
[2022-07-26] MEDS: POLYVINYL ALCOHOL OPHT DROPS 15 ML BOTTLE EACHEYE SCH ×4 (08:39→20:45)
[2022-07-26] MEDS: PHENOBARBITAL 32.4 MG TABLET GT SCH ×2 (08:39→20:45)
[2022-07-26] MEDS: REMEDY ESSENTIAL ZINC PASTE 113 GM TP SCH ×2 (08:39→20:46)
[2022-07-26] MEDS: BENZOYL PEROXIDE 10% GEL 60 GM TUBE TP SCH ×2 (08:39→20:46)
[2022-07-26] MEDS: HYDROGEN PEROXIDE 3% 118 ML BOTTLE TP SCH ×2 (09:24→19:20)
[2022-07-26] MEDS: NUTRISOURCE FIBER 4 GM PACKET GT SCH (20:45)
[2022-07-26] MEDS: OMEGA-3 FATTY ACIDS/FISH OIL CAPSULE GT SCH (20:45)
[2022-07-26] MEDS: LATANOPROST OPHT DROP 2.5 ML BOTTLE EACHEYE SCH (20:45)
[2022-07-26] MEDS: CEFTRIAXONE 1 G in IV DEXTROSE 5% 50 ML IV SCH (20:54)
[2022-07-27] VITALS (10 sets, daily range): TEMP 97–99; O2SAT 98–99
[2022-07-27] MEDS: ALBUTEROL SULFATE 2.5 MG/3 ML NEBU NEB SCH ×4 (00:35→19:30)
[2022-07-27] MEDS: IPRATROPIUM BROMIDE 0.5 MG/2.5 ML NEBU NEB SCH ×4 (00:35→19:30)
[2022-07-27] MEDS: JEVITY 1.2 1000 ML LIQUID GT PRN (04:30)
[2022-07-27] MEDS: ACIDOPHILUS/BULGARICUS CHEW TAB GT SCH ×3 (06:12→22:20)
[2022-07-27] MEDS: VALPROIC ACID 250 MG/5 ML LIQUID UDC GT SCH ×3 (06:12→22:20)
[2022-07-27] MEDS: OMEPRAZOLE 20 MG CAPSULE.DR GT SCH (06:12)
[2022-07-27] MEDS: HYDROGEN PEROXIDE 3% 118 ML BOTTLE TP SCH ×2 (09:00→19:30)
[2022-07-27] MEDS: PHENOBARBITAL 32.4 MG TABLET GT SCH ×2 (09:06→20:37)
[2022-07-27] MEDS: BACLOFEN 20 MG TABLET GT SCH ×3 (09:06→20:37)
[2022-07-27] MEDS: REMEDY ESSENTIAL ZINC PASTE 113 GM TP SCH ×2 (09:06→20:37)
[2022-07-27] MEDS: BENZOYL PEROXIDE 10% GEL 60 GM TUBE TP SCH ×2 (09:06→20:37)
[2022-07-27] MEDS: POLYVINYL ALCOHOL OPHT DROPS 15 ML BOTTLE EACHEYE SCH ×4 (09:06→20:36)
[2022-07-27] MEDS: OMEGA-3 FATTY ACIDS/FISH OIL CAPSULE GT SCH (20:36)
[2022-07-27] MEDS: LATANOPROST OPHT DROP 2.5 ML BOTTLE EACHEYE SCH (20:36)
[2022-07-27] MEDS: NUTRISOURCE FIBER 4 GM PACKET GT SCH (20:37)
[2022-07-28] VITALS (10 sets, daily range): TEMP 97–98.4; O2SAT 98–99
[2022-07-28] MEDS: IPRATROPIUM BROMIDE 0.5 MG/2.5 ML NEBU NEB SCH ×4 (01:04→19:10)
[2022-07-28] MEDS: ALBUTEROL SULFATE 2.5 MG/3 ML NEBU NEB SCH ×4 (01:04→19:10)
[2022-07-28] MEDS: JEVITY 1.2 1000 ML LIQUID GT PRN (01:20)
[2022-07-28] MEDS: VALPROIC ACID 250 MG/5 ML LIQUID UDC GT SCH ×3 (05:21→22:00)
[2022-07-28] MEDS: OMEPRAZOLE 20 MG CAPSULE.DR GT SCH (05:21)
[2022-07-28] MEDS: ACIDOPHILUS/BULGARICUS CHEW TAB GT SCH ×3 (05:21→22:00)
[2022-07-28] MEDS: HYDROGEN PEROXIDE 3% 118 ML BOTTLE TP SCH ×2 (08:38→19:05)
[2022-07-28] MEDS: BACLOFEN 20 MG TABLET GT SCH ×3 (08:41→21:00)
[2022-07-28] MEDS: PHENOBARBITAL 32.4 MG TABLET GT SCH ×2 (08:41→21:00)
[2022-07-28] MEDS: POLYVINYL ALCOHOL OPHT DROPS 15 ML BOTTLE EACHEYE SCH ×4 (08:41→21:00)
[2022-07-28] MEDS: BENZOYL PEROXIDE 10% GEL 60 GM TUBE TP SCH ×2 (08:41→21:00)
[2022-07-28] MEDS: REMEDY ESSENTIAL ZINC PASTE 113 GM TP SCH ×2 (08:42→21:00)
[2022-07-28] MEDS: OMEGA-3 FATTY ACIDS/FISH OIL CAPSULE GT SCH (21:00)
[2022-07-28] MEDS: LATANOPROST OPHT DROP 2.5 ML BOTTLE EACHEYE SCH (21:00)
[2022-07-28] MEDS: NUTRISOURCE FIBER 4 GM PACKET GT SCH (21:00)
[2022-07-29] VITALS (9 sets, daily range): TEMP 97.3–97.6; O2SAT 96–99
[2022-07-29] MEDS: ALBUTEROL SULFATE 2.5 MG/3 ML NEBU NEB SCH ×5 (00:43→19:50)
[2022-07-29] MEDS: IPRATROPIUM BROMIDE 0.5 MG/2.5 ML NEBU NEB SCH ×5 (00:43→19:50)
[2022-07-29] MEDS: OMEPRAZOLE 20 MG CAPSULE.DR GT SCH (06:41)
[2022-07-29] MEDS: ACIDOPHILUS/BULGARICUS CHEW TAB GT SCH ×3 (06:41→22:48)
[2022-07-29] MEDS: VALPROIC ACID 250 MG/5 ML LIQUID UDC GT SCH ×3 (06:41→22:48)
[2022-07-29] MEDS: HYDROGEN PEROXIDE 3% 118 ML BOTTLE TP SCH ×2 (07:33→21:22)
[2022-07-29] MEDS: REMEDY ESSENTIAL ZINC PASTE 113 GM TP SCH ×2 (08:31→20:30)
[2022-07-29] MEDS: PHENOBARBITAL 32.4 MG TABLET GT SCH ×2 (08:31→22:51)
[2022-07-29] MEDS: BENZOYL PEROXIDE 10% GEL 60 GM TUBE TP SCH ×2 (08:31→21:00)
[2022-07-29] MEDS: POLYVINYL ALCOHOL OPHT DROPS 15 ML BOTTLE EACHEYE SCH ×4 (08:31→20:17)
[2022-07-29] MEDS: BACLOFEN 20 MG TABLET GT SCH ×3 (08:31→22:51)
[2022-07-29] MEDS: LATANOPROST OPHT DROP 2.5 ML BOTTLE EACHEYE SCH (20:17)
[2022-07-29] MEDS: NUTRISOURCE FIBER 4 GM PACKET GT SCH (20:23)
[2022-07-29] MEDS: OMEGA-3 FATTY ACIDS/FISH OIL CAPSULE GT SCH (20:30)
[2022-07-30] VITALS (10 sets, daily range): TEMP 97–97.7; O2SAT 97–99
[2022-07-30] MEDS: IPRATROPIUM BROMIDE 0.5 MG/2.5 ML NEBU NEB SCH ×4 (01:08→19:40)
[2022-07-30] MEDS: ALBUTEROL SULFATE 2.5 MG/3 ML NEBU NEB SCH ×4 (01:08→19:40)
[2022-07-30] MEDS: VALPROIC ACID 250 MG/5 ML LIQUID UDC GT SCH ×3 (05:33→22:00)
[2022-07-30] MEDS: OMEPRAZOLE 20 MG CAPSULE.DR GT SCH (05:33)
[2022-07-30] MEDS: ACIDOPHILUS/BULGARICUS CHEW TAB GT SCH ×3 (05:33→22:00)
[2022-07-30] MEDS: HYDROGEN PEROXIDE 3% 118 ML BOTTLE TP SCH ×2 (09:00→21:04)
[2022-07-30] MEDS: PHENOBARBITAL 32.4 MG TABLET GT SCH ×2 (09:05→20:42)
[2022-07-30] MEDS: BACLOFEN 20 MG TABLET GT SCH ×3 (09:05→20:41)
[2022-07-30] MEDS: BENZOYL PEROXIDE 10% GEL 60 GM TUBE TP SCH ×2 (09:05→21:00)
[2022-07-30] MEDS: POLYVINYL ALCOHOL OPHT DROPS 15 ML BOTTLE EACHEYE SCH ×4 (09:05→20:36)
[2022-07-30] MEDS: REMEDY ESSENTIAL ZINC PASTE 113 GM TP SCH ×2 (09:06→20:38)
[2022-07-30] MEDS: LATANOPROST OPHT DROP 2.5 ML BOTTLE EACHEYE SCH (20:36)
[2022-07-30] MEDS: OMEGA-3 FATTY ACIDS/FISH OIL CAPSULE GT SCH (20:36)
[2022-07-30] MEDS: NUTRISOURCE FIBER 4 GM PACKET GT SCH (20:36)
[2022-07-31] VITALS (9 sets, daily range): TEMP 97.8; O2SAT 96–99
[2022-07-31] MEDS: IPRATROPIUM BROMIDE 0.5 MG/2.5 ML NEBU NEB SCH ×4 (01:28→19:40)
[2022-07-31] MEDS: ALBUTEROL SULFATE 2.5 MG/3 ML NEBU NEB SCH ×4 (01:28→19:40)
[2022-07-31] MEDS: ACIDOPHILUS/BULGARICUS CHEW TAB GT SCH ×3 (06:21→22:00)
[2022-07-31] MEDS: VALPROIC ACID 250 MG/5 ML LIQUID UDC GT SCH ×3 (06:21→22:00)
[2022-07-31] MEDS: OMEPRAZOLE 20 MG CAPSULE.DR GT SCH (06:23)
[2022-07-31] MEDS: POLYVINYL ALCOHOL OPHT DROPS 15 ML BOTTLE EACHEYE SCH ×4 (08:21→21:00)
[2022-07-31] MEDS: BACLOFEN 20 MG TABLET GT SCH ×3 (08:22→21:00)
[2022-07-31] MEDS: PHENOBARBITAL 32.4 MG TABLET GT SCH ×2 (08:22→21:00)
[2022-07-31] MEDS: BENZOYL PEROXIDE 10% GEL 60 GM TUBE TP SCH ×2 (08:23→21:00)
[2022-07-31] MEDS: REMEDY ESSENTIAL ZINC PASTE 113 GM TP SCH ×2 (08:23→21:00)
[2022-07-31] MEDS: HYDROGEN PEROXIDE 3% 118 ML BOTTLE TP SCH ×2 (09:12→20:57)
[2022-07-31] MEDS: JEVITY 1.2 1000 ML LIQUID GT PRN (11:12)
[2022-07-31] MEDS: OMEGA-3 FATTY ACIDS/FISH OIL CAPSULE GT SCH (21:00)
[2022-07-31] MEDS: LATANOPROST OPHT DROP 2.5 ML BOTTLE EACHEYE SCH (21:00)
[2022-07-31] MEDS: NUTRISOURCE FIBER 4 GM PACKET GT SCH (21:00)
[2022-08-01] VITALS (10 sets, daily range): TEMP 97–97.4; O2SAT 96–99
[2022-08-01] MEDS: IPRATROPIUM BROMIDE 0.5 MG/2.5 ML NEBU NEB SCH ×4 (00:42→19:50)
[2022-08-01] MEDS: ALBUTEROL SULFATE 2.5 MG/3 ML NEBU NEB SCH ×4 (00:42→19:50)
[2022-08-01] MEDS: OMEPRAZOLE 20 MG CAPSULE.DR GT SCH (06:00)
[2022-08-01] MEDS: VALPROIC ACID 250 MG/5 ML LIQUID UDC GT SCH ×3 (06:00→22:52)
[2022-08-01] MEDS: ACIDOPHILUS/BULGARICUS CHEW TAB GT SCH ×3 (06:00→22:52)
[2022-08-01] MEDS: HYDROGEN PEROXIDE 3% 118 ML BOTTLE TP SCH ×2 (07:38→20:41)
[2022-08-01] MEDS: PHENOBARBITAL 32.4 MG TABLET GT SCH ×2 (09:31→21:00)
[2022-08-01] MEDS: POLYVINYL ALCOHOL OPHT DROPS 15 ML BOTTLE EACHEYE SCH ×4 (09:31→21:00)
[2022-08-01] MEDS: BACLOFEN 20 MG TABLET GT SCH ×3 (09:31→21:00)
[2022-08-01] MEDS: BENZOYL PEROXIDE 10% GEL 60 GM TUBE TP SCH ×2 (09:32→21:00)
[2022-08-01] MEDS: REMEDY ESSENTIAL ZINC PASTE 113 GM TP SCH ×2 (09:32→21:00)
[2022-08-01] MEDS: LATANOPROST OPHT DROP 2.5 ML BOTTLE EACHEYE SCH (21:00)
[2022-08-01] MEDS: NUTRISOURCE FIBER 4 GM PACKET GT SCH (21:00)
[2022-08-01] MEDS: OMEGA-3 FATTY ACIDS/FISH OIL CAPSULE GT SCH (21:00)
[2022-08-02] VITALS (10 sets, daily range): TEMP 97.6–98.2; O2SAT 97–99
[2022-08-02] MEDS: ALBUTEROL SULFATE 2.5 MG/3 ML NEBU NEB SCH ×4 (01:09→19:22)
[2022-08-02] MEDS: IPRATROPIUM BROMIDE 0.5 MG/2.5 ML NEBU NEB SCH ×4 (01:09→19:22)
[2022-08-02] MEDS: VALPROIC ACID 250 MG/5 ML LIQUID UDC GT SCH ×3 (06:00→22:45)
[2022-08-02] MEDS: ACIDOPHILUS/BULGARICUS CHEW TAB GT SCH ×3 (06:00→22:46)
[2022-08-02] MEDS: OMEPRAZOLE 20 MG CAPSULE.DR GT SCH (06:00)
[2022-08-02] MEDS: BENZOYL PEROXIDE 10% GEL 60 GM TUBE TP SCH ×2 (08:31→21:00)
[2022-08-02] MEDS: REMEDY ESSENTIAL ZINC PASTE 113 GM TP SCH ×2 (08:31→21:00)
[2022-08-02] MEDS: POLYVINYL ALCOHOL OPHT DROPS 15 ML BOTTLE EACHEYE SCH ×4 (08:31→21:00)
[2022-08-02] MEDS: BACLOFEN 20 MG TABLET GT SCH ×3 (08:31→21:00)
[2022-08-02] MEDS: PHENOBARBITAL 32.4 MG TABLET GT SCH ×2 (08:31→21:00)
[2022-08-02] MEDS: HYDROGEN PEROXIDE 3% 118 ML BOTTLE TP SCH ×2 (09:08→21:00)
[2022-08-02] MEDS: LATANOPROST OPHT DROP 2.5 ML BOTTLE EACHEYE SCH (21:00)
[2022-08-02] MEDS: OMEGA-3 FATTY ACIDS/FISH OIL CAPSULE GT SCH (21:00)
[2022-08-02] MEDS: NUTRISOURCE FIBER 4 GM PACKET GT SCH (21:00)
[2022-08-03] VITALS (10 sets, daily range): TEMP 96.7–97.1; O2SAT 98–99
[2022-08-03] MEDS: JEVITY 1.2 1000 ML LIQUID GT PRN ×2 (01:30→04:06)
[2022-08-03] MEDS: ALBUTEROL SULFATE 2.5 MG/3 ML NEBU NEB SCH ×4 (01:30→19:43)
[2022-08-03] MEDS: IPRATROPIUM BROMIDE 0.5 MG/2.5 ML NEBU NEB SCH ×4 (01:30→19:43)
[2022-08-03] MEDS: VALPROIC ACID 250 MG/5 ML LIQUID UDC GT SCH ×3 (06:36→21:55)
[2022-08-03] MEDS: ACIDOPHILUS/BULGARICUS CHEW TAB GT SCH ×3 (06:36→21:55)
[2022-08-03] MEDS: OMEPRAZOLE 20 MG CAPSULE.DR GT SCH (06:36)
[2022-08-03] MEDS: PHENOBARBITAL 32.4 MG TABLET GT SCH ×2 (08:56→21:54)
[2022-08-03] MEDS: REMEDY ESSENTIAL ZINC PASTE 113 GM TP SCH ×2 (08:56→21:55)
[2022-08-03] MEDS: BENZOYL PEROXIDE 10% GEL 60 GM TUBE TP SCH ×2 (08:56→21:54)
[2022-08-03] MEDS: BACLOFEN 20 MG TABLET GT SCH ×3 (08:56→21:54)
[2022-08-03] MEDS: POLYVINYL ALCOHOL OPHT DROPS 15 ML BOTTLE EACHEYE SCH ×4 (08:56→21:54)
[2022-08-03] MEDS: HYDROGEN PEROXIDE 3% 118 ML BOTTLE TP SCH ×2 (09:17→20:54)
[2022-08-03] MEDS: NUTRISOURCE FIBER 4 GM PACKET GT SCH (21:54)
[2022-08-03] MEDS: LATANOPROST OPHT DROP 2.5 ML BOTTLE EACHEYE SCH (21:54)
[2022-08-03] MEDS: OMEGA-3 FATTY ACIDS/FISH OIL CAPSULE GT SCH (21:54)
[2022-08-04] VITALS (10 sets, daily range): TEMP 97.1–97.5; O2SAT 98–99
[2022-08-04] MEDS: IPRATROPIUM BROMIDE 0.5 MG/2.5 ML NEBU NEB SCH ×4 (00:45→19:18)
[2022-08-04] MEDS: ALBUTEROL SULFATE 2.5 MG/3 ML NEBU NEB SCH ×4 (00:45→19:18)
[2022-08-04] MEDS: ACIDOPHILUS/BULGARICUS CHEW TAB GT SCH ×3 (05:48→22:01)
[2022-08-04] MEDS: VALPROIC ACID 250 MG/5 ML LIQUID UDC GT SCH ×3 (05:48→22:01)
[2022-08-04] MEDS: OMEPRAZOLE 20 MG CAPSULE.DR GT SCH (05:48)
[2022-08-04] MEDS: HYDROGEN PEROXIDE 3% 118 ML BOTTLE TP SCH ×2 (07:56→21:37)
[2022-08-04] MEDS: POLYVINYL ALCOHOL OPHT DROPS 15 ML BOTTLE EACHEYE SCH ×4 (09:47→21:00)
[2022-08-04] MEDS: BACLOFEN 20 MG TABLET GT SCH ×3 (09:47→21:00)
[2022-08-04] MEDS: REMEDY ESSENTIAL ZINC PASTE 113 GM TP SCH ×2 (09:47→21:00)
[2022-08-04] MEDS: PHENOBARBITAL 32.4 MG TABLET GT SCH ×2 (09:47→21:00)
[2022-08-04] MEDS: BENZOYL PEROXIDE 10% GEL 60 GM TUBE TP SCH ×2 (09:48→21:00)
[2022-08-04] MEDS: NEOMY/BACITRA/POLYMYXIN B OINT UD PACKET TP SCH ×2 (10:24→21:00)
[2022-08-04] MEDS: OMEGA-3 FATTY ACIDS/FISH OIL CAPSULE GT SCH (21:00)
[2022-08-04] MEDS: NUTRISOURCE FIBER 4 GM PACKET GT SCH (21:00)
[2022-08-04] MEDS: LATANOPROST OPHT DROP 2.5 ML BOTTLE EACHEYE SCH (21:00)
[2022-08-05] VITALS (9 sets, daily range): TEMP 96.7–97.5; O2SAT 98–99
[2022-08-05] MEDS: IPRATROPIUM BROMIDE 0.5 MG/2.5 ML NEBU NEB SCH ×4 (01:21→19:56)
[2022-08-05] MEDS: ALBUTEROL SULFATE 2.5 MG/3 ML NEBU NEB SCH ×4 (01:21→19:56)
[2022-08-05] MEDS: JEVITY 1.2 1000 ML LIQUID GT PRN (04:44)
[2022-08-05] MEDS: OMEPRAZOLE 20 MG CAPSULE.DR GT SCH (05:09)
[2022-08-05] MEDS: ACIDOPHILUS/BULGARICUS CHEW TAB GT SCH ×3 (05:09→22:00)
[2022-08-05] MEDS: VALPROIC ACID 250 MG/5 ML LIQUID UDC GT SCH ×3 (05:09→22:00)
[2022-08-05] MEDS: HYDROGEN PEROXIDE 3% 118 ML BOTTLE TP SCH ×2 (07:35→21:03)
[2022-08-05] MEDS: POLYVINYL ALCOHOL OPHT DROPS 15 ML BOTTLE EACHEYE SCH ×4 (08:44→20:25)
[2022-08-05] MEDS: BACLOFEN 20 MG TABLET GT SCH ×3 (08:45→20:25)
[2022-08-05] MEDS: PHENOBARBITAL 32.4 MG TABLET GT SCH ×2 (08:45→20:25)
[2022-08-05] MEDS: BENZOYL PEROXIDE 10% GEL 60 GM TUBE TP SCH ×2 (08:46→20:25)
[2022-08-05] MEDS: NEOMY/BACITRA/POLYMYXIN B OINT UD PACKET TP SCH ×2 (08:46→20:25)
[2022-08-05] MEDS: REMEDY ESSENTIAL ZINC PASTE 113 GM TP SCH ×2 (08:46→20:25)
[2022-08-05] MEDS: LATANOPROST OPHT DROP 2.5 ML BOTTLE EACHEYE SCH (20:25)
[2022-08-05] MEDS: NUTRISOURCE FIBER 4 GM PACKET GT SCH (20:25)
[2022-08-05] MEDS: OMEGA-3 FATTY ACIDS/FISH OIL CAPSULE GT SCH (20:25)
[2022-08-06] VITALS (9 sets, daily range): TEMP 97.9; O2SAT 98–99
[2022-08-06] MEDS: IPRATROPIUM BROMIDE 0.5 MG/2.5 ML NEBU NEB SCH ×4 (00:50→19:48)
[2022-08-06] MEDS: ALBUTEROL SULFATE 2.5 MG/3 ML NEBU NEB SCH ×4 (00:50→19:48)
[2022-08-06] MEDS: ACIDOPHILUS/BULGARICUS CHEW TAB GT SCH ×3 (05:13→22:00)
[2022-08-06] MEDS: VALPROIC ACID 250 MG/5 ML LIQUID UDC GT SCH ×3 (05:13→22:00)
[2022-08-06] MEDS: OMEPRAZOLE 20 MG CAPSULE.DR GT SCH (05:14)
[2022-08-06] MEDS: HYDROGEN PEROXIDE 3% 118 ML BOTTLE TP SCH ×2 (08:16→21:10)
[2022-08-06] MEDS: POLYVINYL ALCOHOL OPHT DROPS 15 ML BOTTLE EACHEYE SCH ×4 (09:06→21:00)
[2022-08-06] MEDS: PHENOBARBITAL 32.4 MG TABLET GT SCH ×2 (09:12→21:00)
[2022-08-06] MEDS: BACLOFEN 20 MG TABLET GT SCH ×3 (09:12→21:00)
[2022-08-06] MEDS: BENZOYL PEROXIDE 10% GEL 60 GM TUBE TP SCH ×2 (09:14→21:00)
[2022-08-06] MEDS: REMEDY ESSENTIAL ZINC PASTE 113 GM TP SCH ×2 (09:15→21:00)
[2022-08-06] MEDS: NEOMY/BACITRA/POLYMYXIN B OINT UD PACKET TP SCH ×2 (09:17→21:00)
[2022-08-06] MEDS: NUTRISOURCE FIBER 4 GM PACKET GT SCH (21:00)
[2022-08-06] MEDS: LATANOPROST OPHT DROP 2.5 ML BOTTLE EACHEYE SCH (21:00)
[2022-08-06] MEDS: OMEGA-3 FATTY ACIDS/FISH OIL CAPSULE GT SCH (21:00)
[2022-08-07] VITALS (11 sets, daily range): BP systolic 116; BP diastolic 63; TEMP 97.8–98.1; O2SAT 97–99
[2022-08-07] MEDS: ALBUTEROL SULFATE 2.5 MG/3 ML NEBU NEB SCH ×4 (00:45→19:50)
[2022-08-07] MEDS: IPRATROPIUM BROMIDE 0.5 MG/2.5 ML NEBU NEB SCH ×4 (00:45→19:50)
[2022-08-07] MEDS: VALPROIC ACID 250 MG/5 ML LIQUID UDC GT SCH ×3 (06:00→21:58)
[2022-08-07] MEDS: ACIDOPHILUS/BULGARICUS CHEW TAB GT SCH ×3 (06:00→21:58)
[2022-08-07] MEDS: OMEPRAZOLE 20 MG CAPSULE.DR GT SCH (06:00)
[2022-08-07] MEDS: PHENOBARBITAL 32.4 MG TABLET GT SCH ×2 (08:48→20:18)
[2022-08-07] MEDS: BACLOFEN 20 MG TABLET GT SCH ×3 (08:48→20:18)
[2022-08-07] MEDS: BENZOYL PEROXIDE 10% GEL 60 GM TUBE TP SCH ×2 (08:48→20:18)
[2022-08-07] MEDS: POLYVINYL ALCOHOL OPHT DROPS 15 ML BOTTLE EACHEYE SCH ×4 (08:48→20:17)
[2022-08-07] MEDS: REMEDY ESSENTIAL ZINC PASTE 113 GM TP SCH ×2 (08:48→20:24)
[2022-08-07] MEDS: NEOMY/BACITRA/POLYMYXIN B OINT UD PACKET TP SCH ×2 (08:48→20:24)
[2022-08-07] MEDS: HYDROGEN PEROXIDE 3% 118 ML BOTTLE TP SCH ×2 (09:40→21:49)
[2022-08-07] MEDS: LATANOPROST OPHT DROP 2.5 ML BOTTLE EACHEYE SCH (20:17)
[2022-08-07] MEDS: NUTRISOURCE FIBER 4 GM PACKET GT SCH (20:18)
[2022-08-07] MEDS: OMEGA-3 FATTY ACIDS/FISH OIL CAPSULE GT SCH (20:18)
[2022-08-08] VITALS (10 sets, daily range): TEMP 97.8–98; O2SAT 97–99
[2022-08-08] MEDS: ALBUTEROL SULFATE 2.5 MG/3 ML NEBU NEB SCH ×4 (00:50→19:40)
[2022-08-08] MEDS: IPRATROPIUM BROMIDE 0.5 MG/2.5 ML NEBU NEB SCH ×4 (00:50→19:40)
[2022-08-08] MEDS: VALPROIC ACID 250 MG/5 ML LIQUID UDC GT SCH ×3 (06:09→21:29)
[2022-08-08] MEDS: ACIDOPHILUS/BULGARICUS CHEW TAB GT SCH ×3 (06:09→21:30)
[2022-08-08] MEDS: OMEPRAZOLE 20 MG CAPSULE.DR GT SCH (06:09)
[2022-08-08] MEDS: BENZOYL PEROXIDE 10% GEL 60 GM TUBE TP SCH ×2 (08:27→21:29)
[2022-08-08] MEDS: POLYVINYL ALCOHOL OPHT DROPS 15 ML BOTTLE EACHEYE SCH ×4 (08:27→21:00)
[2022-08-08] MEDS: REMEDY ESSENTIAL ZINC PASTE 113 GM TP SCH ×2 (08:27→21:29)
[2022-08-08] MEDS: NEOMY/BACITRA/POLYMYXIN B OINT UD PACKET TP SCH ×2 (08:27→21:29)
[2022-08-08] MEDS: BACLOFEN 20 MG TABLET GT SCH ×3 (08:27→21:27)
[2022-08-08] MEDS: PHENOBARBITAL 32.4 MG TABLET GT SCH ×2 (08:27→21:28)
[2022-08-08] MEDS: HYDROGEN PEROXIDE 3% 118 ML BOTTLE TP SCH ×2 (08:43→21:08)
[2022-08-08] MEDS: LATANOPROST OPHT DROP 2.5 ML BOTTLE EACHEYE SCH (21:27)
[2022-08-08] MEDS: OMEGA-3 FATTY ACIDS/FISH OIL CAPSULE GT SCH (21:27)
[2022-08-08] MEDS: NUTRISOURCE FIBER 4 GM PACKET GT SCH (21:28)
[2022-08-09] VITALS (10 sets, daily range): TEMP 97.9–98; O2SAT 98–99
[2022-08-09] MEDS: IPRATROPIUM BROMIDE 0.5 MG/2.5 ML NEBU NEB SCH ×4 (00:55→19:25)
[2022-08-09] MEDS: ALBUTEROL SULFATE 2.5 MG/3 ML NEBU NEB SCH ×4 (00:55→19:25)
[2022-08-09] MEDS: VALPROIC ACID 250 MG/5 ML LIQUID UDC GT SCH ×3 (05:55→21:35)
[2022-08-09] MEDS: OMEPRAZOLE 20 MG CAPSULE.DR GT SCH (05:55)
[2022-08-09] MEDS: ACIDOPHILUS/BULGARICUS CHEW TAB GT SCH ×3 (05:55→21:35)
[2022-08-09] MEDS: HYDROGEN PEROXIDE 3% 118 ML BOTTLE TP SCH ×2 (08:18→21:21)
[2022-08-09] MEDS: POLYVINYL ALCOHOL OPHT DROPS 15 ML BOTTLE EACHEYE SCH ×4 (08:42→21:33)
[2022-08-09] MEDS: BENZOYL PEROXIDE 10% GEL 60 GM TUBE TP SCH ×2 (08:42→21:33)
[2022-08-09] MEDS: BACLOFEN 20 MG TABLET GT SCH ×3 (08:42→21:33)
[2022-08-09] MEDS: PHENOBARBITAL 32.4 MG TABLET GT SCH ×2 (08:42→21:33)
[2022-08-09] MEDS: REMEDY ESSENTIAL ZINC PASTE 113 GM TP SCH ×2 (08:42→21:34)
[2022-08-09] MEDS: NEOMY/BACITRA/POLYMYXIN B OINT UD PACKET TP SCH ×2 (08:43→21:34)
[2022-08-09] MEDS: OMEGA-3 FATTY ACIDS/FISH OIL CAPSULE GT SCH (21:33)
[2022-08-09] MEDS: NUTRISOURCE FIBER 4 GM PACKET GT SCH (21:33)
[2022-08-09] MEDS: LATANOPROST OPHT DROP 2.5 ML BOTTLE EACHEYE SCH (21:33)
[2022-08-10] VITALS (11 sets, daily range): TEMP 96–98.1; O2SAT 97–99
[2022-08-10] MEDS: ALBUTEROL SULFATE 2.5 MG/3 ML NEBU NEB SCH ×4 (01:27→19:11)
[2022-08-10] MEDS: IPRATROPIUM BROMIDE 0.5 MG/2.5 ML NEBU NEB SCH ×4 (01:27→19:11)
[2022-08-10] MEDS: ACIDOPHILUS/BULGARICUS CHEW TAB GT SCH ×3 (06:01→21:13)
[2022-08-10] MEDS: VALPROIC ACID 250 MG/5 ML LIQUID UDC GT SCH ×3 (06:01→21:13)
[2022-08-10] MEDS: OMEPRAZOLE 20 MG CAPSULE.DR GT SCH (06:01)
[2022-08-10] MEDS: HYDROGEN PEROXIDE 3% 118 ML BOTTLE TP SCH ×2 (07:23→19:11)
[2022-08-10] MEDS: POLYVINYL ALCOHOL OPHT DROPS 15 ML BOTTLE EACHEYE SCH ×4 (09:34→21:12)
[2022-08-10] MEDS: REMEDY ESSENTIAL ZINC PASTE 113 GM TP SCH ×2 (09:35→21:13)
[2022-08-10] MEDS: NEOMY/BACITRA/POLYMYXIN B OINT UD PACKET TP SCH ×2 (09:35→21:13)
[2022-08-10] MEDS: BACLOFEN 20 MG TABLET GT SCH ×3 (09:35→21:13)
[2022-08-10] MEDS: BENZOYL PEROXIDE 10% GEL 60 GM TUBE TP SCH ×2 (09:35→21:13)
[2022-08-10] MEDS: PHENOBARBITAL 32.4 MG TABLET GT SCH ×2 (09:35→21:13)
[2022-08-10] MEDS: LATANOPROST OPHT DROP 2.5 ML BOTTLE EACHEYE SCH (21:12)
[2022-08-10] MEDS: OMEGA-3 FATTY ACIDS/FISH OIL CAPSULE GT SCH (21:13)
[2022-08-10] MEDS: NUTRISOURCE FIBER 4 GM PACKET GT SCH (21:13)
[2022-08-11] VITALS (10 sets, daily range): TEMP 97–97.3; O2SAT 98–99
[2022-08-11] MEDS: IPRATROPIUM BROMIDE 0.5 MG/2.5 ML NEBU NEB SCH ×4 (01:06→19:19)
[2022-08-11] MEDS: ALBUTEROL SULFATE 2.5 MG/3 ML NEBU NEB SCH ×4 (01:06→19:19)
[2022-08-11] MEDS: VALPROIC ACID 250 MG/5 ML LIQUID UDC GT SCH ×3 (06:10→21:27)
[2022-08-11] MEDS: ACIDOPHILUS/BULGARICUS CHEW TAB GT SCH ×3 (06:10→21:27)
[2022-08-11] MEDS: OMEPRAZOLE 20 MG CAPSULE.DR GT SCH (06:10)
[2022-08-11] MEDS: HYDROGEN PEROXIDE 3% 118 ML BOTTLE TP SCH ×2 (07:22→19:19)
[2022-08-11] MEDS: POLYVINYL ALCOHOL OPHT DROPS 15 ML BOTTLE EACHEYE SCH ×4 (09:36→21:27)
[2022-08-11] MEDS: PHENOBARBITAL 32.4 MG TABLET GT SCH ×2 (09:36→21:27)
[2022-08-11] MEDS: BACLOFEN 20 MG TABLET GT SCH ×3 (09:36→21:27)
[2022-08-11] MEDS: REMEDY ESSENTIAL ZINC PASTE 113 GM TP SCH ×2 (09:36→21:27)
[2022-08-11] MEDS: BENZOYL PEROXIDE 10% GEL 60 GM TUBE TP SCH ×2 (09:36→21:27)
[2022-08-11] MEDS: OMEGA-3 FATTY ACIDS/FISH OIL CAPSULE GT SCH (21:27)
[2022-08-11] MEDS: LATANOPROST OPHT DROP 2.5 ML BOTTLE EACHEYE SCH (21:27)
[2022-08-11] MEDS: NUTRISOURCE FIBER 4 GM PACKET GT SCH (21:27)
[2022-08-11] MEDS: JEVITY 1.2 1000 ML LIQUID GT PRN (22:16)
[2022-08-12] VITALS (8 sets, daily range): TEMP 97.2–97.6; O2SAT 97–99
[2022-08-12] MEDS: ALBUTEROL SULFATE 2.5 MG/3 ML NEBU NEB SCH ×4 (00:49→19:30)
[2022-08-12] MEDS: IPRATROPIUM BROMIDE 0.5 MG/2.5 ML NEBU NEB SCH ×4 (00:49→19:30)
[2022-08-12] MEDS: OMEPRAZOLE 20 MG CAPSULE.DR GT SCH (05:19)
[2022-08-12] MEDS: ACIDOPHILUS/BULGARICUS CHEW TAB GT SCH ×3 (05:19→21:49)
[2022-08-12] MEDS: VALPROIC ACID 250 MG/5 ML LIQUID UDC GT SCH ×3 (05:19→21:49)
[2022-08-12] MEDS: HYDROGEN PEROXIDE 3% 118 ML BOTTLE TP SCH ×2 (08:19→20:58)
[2022-08-12] MEDS: POLYVINYL ALCOHOL OPHT DROPS 15 ML BOTTLE EACHEYE SCH ×4 (09:02→21:47)
[2022-08-12] MEDS: REMEDY ESSENTIAL ZINC PASTE 113 GM TP SCH ×2 (09:03→21:49)
[2022-08-12] MEDS: PHENOBARBITAL 32.4 MG TABLET GT SCH ×2 (09:03→21:49)
[2022-08-12] MEDS: BACLOFEN 20 MG TABLET GT SCH ×3 (09:03→21:49)
[2022-08-12] MEDS: BENZOYL PEROXIDE 10% GEL 60 GM TUBE TP SCH (21:47)
[2022-08-12] MEDS: OMEGA-3 FATTY ACIDS/FISH OIL CAPSULE GT SCH (21:49)
[2022-08-12] MEDS: NUTRISOURCE FIBER 4 GM PACKET GT SCH (21:49)
[2022-08-12] MEDS: LATANOPROST OPHT DROP 2.5 ML BOTTLE EACHEYE SCH (21:49)
[2022-08-13] VITALS (11 sets, daily range): BP systolic 105; BP diastolic 54; TEMP 97.9–98.5; O2SAT 97–99
[2022-08-13] MEDS: ALBUTEROL SULFATE 2.5 MG/3 ML NEBU NEB SCH ×4 (01:28→19:34)
[2022-08-13] MEDS: IPRATROPIUM BROMIDE 0.5 MG/2.5 ML NEBU NEB SCH ×4 (01:28→19:33)
[2022-08-13] MEDS: JEVITY 1.2 1000 ML LIQUID GT PRN (02:25)
[2022-08-13] MEDS: OMEPRAZOLE 20 MG CAPSULE.DR GT SCH (05:14)
[2022-08-13] MEDS: ACIDOPHILUS/BULGARICUS CHEW TAB GT SCH ×3 (05:14→22:00)
[2022-08-13] MEDS: VALPROIC ACID 250 MG/5 ML LIQUID UDC GT SCH ×3 (05:14→22:00)
[2022-08-13] MEDS: BACLOFEN 20 MG TABLET GT SCH ×3 (08:13→21:00)
[2022-08-13] MEDS: POLYVINYL ALCOHOL OPHT DROPS 15 ML BOTTLE EACHEYE SCH ×4 (08:13→21:00)
[2022-08-13] MEDS: REMEDY ESSENTIAL ZINC PASTE 113 GM TP SCH ×2 (08:14→21:00)
[2022-08-13] MEDS: PHENOBARBITAL 32.4 MG TABLET GT SCH ×2 (08:14→21:00)
[2022-08-13] MEDS: BENZOYL PEROXIDE 10% GEL 60 GM TUBE TP SCH ×2 (08:14→21:00)
[2022-08-13] MEDS: HYDROGEN PEROXIDE 3% 118 ML BOTTLE TP SCH ×2 (08:36→21:00)
[2022-08-13] MEDS: LATANOPROST OPHT DROP 2.5 ML BOTTLE EACHEYE SCH (21:00)
[2022-08-13] MEDS: OMEGA-3 FATTY ACIDS/FISH OIL CAPSULE GT SCH (21:00)
[2022-08-13] MEDS: NUTRISOURCE FIBER 4 GM PACKET GT SCH (21:00)
[2022-08-14] VITALS (11 sets, daily range): BP systolic 118; BP diastolic 69; TEMP 97; O2SAT 96–99
[2022-08-14] MEDS: ALBUTEROL SULFATE 2.5 MG/3 ML NEBU NEB SCH ×4 (01:45→19:50)
[2022-08-14] MEDS: IPRATROPIUM BROMIDE 0.5 MG/2.5 ML NEBU NEB SCH ×4 (01:45→19:50)
[2022-08-14] MEDS: ACIDOPHILUS/BULGARICUS CHEW TAB GT SCH ×3 (05:19→22:07)
[2022-08-14] MEDS: VALPROIC ACID 250 MG/5 ML LIQUID UDC GT SCH ×3 (05:19→22:07)
[2022-08-14] MEDS: OMEPRAZOLE 20 MG CAPSULE.DR GT SCH (05:32)
[2022-08-14] MEDS: BACLOFEN 20 MG TABLET GT SCH ×3 (08:29→20:33)
[2022-08-14] MEDS: POLYVINYL ALCOHOL OPHT DROPS 15 ML BOTTLE EACHEYE SCH ×4 (08:29→20:33)
[2022-08-14] MEDS: REMEDY ESSENTIAL ZINC PASTE 113 GM TP SCH ×2 (08:30→20:33)
[2022-08-14] MEDS: PHENOBARBITAL 32.4 MG TABLET GT SCH ×2 (08:30→20:33)
[2022-08-14] MEDS: BENZOYL PEROXIDE 10% GEL 60 GM TUBE TP SCH ×2 (08:30→20:33)
[2022-08-14] MEDS: HYDROGEN PEROXIDE 3% 118 ML BOTTLE TP SCH ×2 (09:00→21:02)
[2022-08-14] MEDS: LATANOPROST OPHT DROP 2.5 ML BOTTLE EACHEYE SCH (20:33)
[2022-08-14] MEDS: OMEGA-3 FATTY ACIDS/FISH OIL CAPSULE GT SCH (20:33)
[2022-08-14] MEDS: NUTRISOURCE FIBER 4 GM PACKET GT SCH (20:33)
[2022-08-15] VITALS (10 sets, daily range): TEMP 97–97.3; O2SAT 97–99
[2022-08-15] MEDS: ALBUTEROL SULFATE 2.5 MG/3 ML NEBU NEB SCH ×4 (00:40→19:40)
[2022-08-15] MEDS: IPRATROPIUM BROMIDE 0.5 MG/2.5 ML NEBU NEB SCH ×4 (00:40→19:40)
[2022-08-15] MEDS: OMEPRAZOLE 20 MG CAPSULE.DR GT SCH (05:14)
[2022-08-15] MEDS: VALPROIC ACID 250 MG/5 ML LIQUID UDC GT SCH ×3 (05:14→21:51)
[2022-08-15] MEDS: ACIDOPHILUS/BULGARICUS CHEW TAB GT SCH ×3 (05:14→21:51)
[2022-08-15] MEDS: HYDROGEN PEROXIDE 3% 118 ML BOTTLE TP SCH ×2 (07:44→20:45)
[2022-08-15] MEDS: BACLOFEN 20 MG TABLET GT SCH ×3 (08:16→21:50)
[2022-08-15] MEDS: POLYVINYL ALCOHOL OPHT DROPS 15 ML BOTTLE EACHEYE SCH ×4 (08:16→21:50)
[2022-08-15] MEDS: BENZOYL PEROXIDE 10% GEL 60 GM TUBE TP SCH ×2 (08:16→21:51)
[2022-08-15] MEDS: PHENOBARBITAL 32.4 MG TABLET GT SCH ×2 (08:16→21:51)
[2022-08-15] MEDS: REMEDY ESSENTIAL ZINC PASTE 113 GM TP SCH ×2 (08:16→21:51)
[2022-08-15] MEDS: JEVITY 1.2 1000 ML LIQUID GT PRN (11:20)
[2022-08-15] MEDS: OMEGA-3 FATTY ACIDS/FISH OIL CAPSULE GT SCH (21:50)
[2022-08-15] MEDS: NUTRISOURCE FIBER 4 GM PACKET GT SCH (21:50)
[2022-08-15] MEDS: LATANOPROST OPHT DROP 2.5 ML BOTTLE EACHEYE SCH (21:50)
[2022-08-16] VITALS (10 sets, daily range): TEMP 97.3–97.5; O2SAT 96–99
[2022-08-16] MEDS: IPRATROPIUM BROMIDE 0.5 MG/2.5 ML NEBU NEB SCH ×4 (01:00→18:38)
[2022-08-16] MEDS: ALBUTEROL SULFATE 2.5 MG/3 ML NEBU NEB SCH ×4 (01:00→18:38)
[2022-08-16] MEDS: VALPROIC ACID 250 MG/5 ML LIQUID UDC GT SCH ×3 (05:18→22:00)
[2022-08-16] MEDS: ACIDOPHILUS/BULGARICUS CHEW TAB GT SCH ×3 (05:19→22:00)
[2022-08-16] MEDS: OMEPRAZOLE 20 MG CAPSULE.DR GT SCH (05:19)
[2022-08-16] MEDS: HYDROGEN PEROXIDE 3% 118 ML BOTTLE TP SCH ×2 (08:12→21:00)
[2022-08-16] MEDS: BACLOFEN 20 MG TABLET GT SCH ×2 (08:14→13:26)
[2022-08-16] MEDS: POLYVINYL ALCOHOL OPHT DROPS 15 ML BOTTLE EACHEYE SCH ×4 (08:14→21:00)
[2022-08-16] MEDS: PHENOBARBITAL 32.4 MG TABLET GT SCH (08:14)
[2022-08-16] MEDS: REMEDY ESSENTIAL ZINC PASTE 113 GM TP SCH ×2 (08:14→21:00)
[2022-08-16] MEDS: BENZOYL PEROXIDE 10% GEL 60 GM TUBE TP SCH ×2 (08:14→21:00)
[2022-08-16] MEDS: JEVITY 1.2 1000 ML LIQUID GT PRN (17:18)
[2022-08-16] MEDS: LATANOPROST OPHT DROP 2.5 ML BOTTLE EACHEYE SCH (21:00)
[2022-08-16] MEDS: NUTRISOURCE FIBER 4 GM PACKET GT SCH (21:00)
[2022-08-16] MEDS: OMEGA-3 FATTY ACIDS/FISH OIL CAPSULE GT SCH (21:00)
[2022-08-17] VITALS (11 sets, daily range): BP systolic 115; BP diastolic 62; TEMP 97.3; O2SAT 96–99
[2022-08-17] MEDS: PHENOBARBITAL 32.4 MG TABLET GT SCH ×3 (00:04→20:06)
[2022-08-17] MEDS: BACLOFEN 20 MG TABLET GT SCH ×4 (00:04→20:06)
[2022-08-17] MEDS: ALBUTEROL SULFATE 2.5 MG/3 ML NEBU NEB SCH ×4 (01:21→19:20)
[2022-08-17] MEDS: IPRATROPIUM BROMIDE 0.5 MG/2.5 ML NEBU NEB SCH ×4 (01:21→19:20)
[2022-08-17] MEDS: ACIDOPHILUS/BULGARICUS CHEW TAB GT SCH ×3 (06:00→22:10)
[2022-08-17] MEDS: VALPROIC ACID 250 MG/5 ML LIQUID UDC GT SCH ×3 (06:00→22:10)
[2022-08-17] MEDS: OMEPRAZOLE 20 MG CAPSULE.DR GT SCH (06:00)
[2022-08-17] MEDS: HYDROGEN PEROXIDE 3% 118 ML BOTTLE TP SCH ×2 (08:45→19:20)
[2022-08-17] MEDS: BENZOYL PEROXIDE 10% GEL 60 GM TUBE TP SCH ×2 (09:00→20:06)
[2022-08-17] MEDS: REMEDY ESSENTIAL ZINC PASTE 113 GM TP SCH ×2 (09:00→20:06)
[2022-08-17] MEDS: POLYVINYL ALCOHOL OPHT DROPS 15 ML BOTTLE EACHEYE SCH ×4 (10:12→20:05)
[2022-08-17] MEDS: LATANOPROST OPHT DROP 2.5 ML BOTTLE EACHEYE SCH (20:05)
[2022-08-17] MEDS: OMEGA-3 FATTY ACIDS/FISH OIL CAPSULE GT SCH (20:05)
[2022-08-17] MEDS: NUTRISOURCE FIBER 4 GM PACKET GT SCH (20:06)
[2022-08-17] MEDS: JEVITY 1.2 1000 ML LIQUID GT PRN (21:56)
[2022-08-18] VITALS (10 sets, daily range): TEMP 97.2–98.4; O2SAT 98–99
[2022-08-18] MEDS: IPRATROPIUM BROMIDE 0.5 MG/2.5 ML NEBU NEB SCH ×4 (01:37→21:59)
[2022-08-18] MEDS: ALBUTEROL SULFATE 2.5 MG/3 ML NEBU NEB SCH ×4 (01:38→22:00)
[2022-08-18] MEDS: ACIDOPHILUS/BULGARICUS CHEW TAB GT SCH ×3 (05:11→21:43)
[2022-08-18] MEDS: OMEPRAZOLE 20 MG CAPSULE.DR GT SCH (05:11)
[2022-08-18] MEDS: VALPROIC ACID 250 MG/5 ML LIQUID UDC GT SCH ×3 (05:11→21:43)
[2022-08-18] MEDS: BACLOFEN 20 MG TABLET GT SCH ×3 (08:55→21:46)
[2022-08-18] MEDS: HYDROGEN PEROXIDE 3% 118 ML BOTTLE TP SCH ×2 (08:56→22:00)
[2022-08-18] MEDS: REMEDY ESSENTIAL ZINC PASTE 113 GM TP SCH ×2 (08:56→21:42)
[2022-08-18] MEDS: PHENOBARBITAL 32.4 MG TABLET GT SCH ×2 (08:56→21:46)
[2022-08-18] MEDS: BENZOYL PEROXIDE 10% GEL 60 GM TUBE TP SCH ×2 (08:58→21:42)
[2022-08-18] MEDS: POLYVINYL ALCOHOL OPHT DROPS 15 ML BOTTLE EACHEYE SCH ×4 (08:59→21:40)
[2022-08-18] MEDS: NUTRISOURCE FIBER 4 GM PACKET GT SCH (21:41)
[2022-08-18] MEDS: LATANOPROST OPHT DROP 2.5 ML BOTTLE EACHEYE SCH (21:41)
[2022-08-18] MEDS: OMEGA-3 FATTY ACIDS/FISH OIL CAPSULE GT SCH (21:41)
[2022-08-19] VITALS (12 sets, daily range): TEMP 97.4–97.6; O2SAT 98–99
[2022-08-19] MEDS: ALBUTEROL SULFATE 2.5 MG/3 ML NEBU NEB SCH ×4 (00:47→18:22)
[2022-08-19] MEDS: IPRATROPIUM BROMIDE 0.5 MG/2.5 ML NEBU NEB SCH ×4 (00:47→18:22)
[2022-08-19] MEDS: VALPROIC ACID 250 MG/5 ML LIQUID UDC GT SCH ×3 (06:40→21:32)
[2022-08-19] MEDS: OMEPRAZOLE 20 MG CAPSULE.DR GT SCH (06:41)
[2022-08-19] MEDS: ACIDOPHILUS/BULGARICUS CHEW TAB GT SCH ×3 (06:41→21:32)
[2022-08-19] MEDS: HYDROGEN PEROXIDE 3% 118 ML BOTTLE TP SCH ×2 (08:46→18:23)
[2022-08-19] MEDS: BACLOFEN 20 MG TABLET GT SCH ×3 (09:02→21:31)
[2022-08-19] MEDS: REMEDY ESSENTIAL ZINC PASTE 113 GM TP SCH ×2 (09:02→21:31)
[2022-08-19] MEDS: PHENOBARBITAL 32.4 MG TABLET GT SCH ×2 (09:02→21:31)
[2022-08-19] MEDS: POLYVINYL ALCOHOL OPHT DROPS 15 ML BOTTLE EACHEYE SCH ×4 (09:02→21:31)
[2022-08-19] MEDS: BENZOYL PEROXIDE 10% GEL 60 GM TUBE TP SCH ×2 (09:02→21:31)
[2022-08-19] MEDS: OMEGA-3 FATTY ACIDS/FISH OIL CAPSULE GT SCH (21:31)
[2022-08-19] MEDS: LATANOPROST OPHT DROP 2.5 ML BOTTLE EACHEYE SCH (21:31)
[2022-08-19] MEDS: NUTRISOURCE FIBER 4 GM PACKET GT SCH (21:31)
[2022-08-20] VITALS (11 sets, daily range): TEMP 97.8; O2SAT 98–99
[2022-08-20] MEDS: ALBUTEROL SULFATE 2.5 MG/3 ML NEBU NEB SCH ×4 (00:48→20:15)
[2022-08-20] MEDS: IPRATROPIUM BROMIDE 0.5 MG/2.5 ML NEBU NEB SCH ×4 (00:48→20:00)
[2022-08-20] MEDS: ACIDOPHILUS/BULGARICUS CHEW TAB GT SCH ×3 (05:47→21:45)
[2022-08-20] MEDS: OMEPRAZOLE 20 MG CAPSULE.DR GT SCH (05:47)
[2022-08-20] MEDS: VALPROIC ACID 250 MG/5 ML LIQUID UDC GT SCH ×3 (05:47→21:45)
[2022-08-20] MEDS: JEVITY 1.2 1000 ML LIQUID GT PRN (07:02)
[2022-08-20] MEDS: BACLOFEN 20 MG TABLET GT SCH ×3 (08:38→21:47)
[2022-08-20] MEDS: BENZOYL PEROXIDE 10% GEL 60 GM TUBE TP SCH ×2 (08:38→21:48)
[2022-08-20] MEDS: POLYVINYL ALCOHOL OPHT DROPS 15 ML BOTTLE EACHEYE SCH ×4 (08:38→21:43)
[2022-08-20] MEDS: PHENOBARBITAL 32.4 MG TABLET GT SCH ×2 (08:38→21:48)
[2022-08-20] MEDS: REMEDY ESSENTIAL ZINC PASTE 113 GM TP SCH ×2 (08:38→21:48)
[2022-08-20] MEDS: HYDROGEN PEROXIDE 3% 118 ML BOTTLE TP SCH ×2 (09:00→21:00)
[2022-08-20] MEDS: OMEGA-3 FATTY ACIDS/FISH OIL CAPSULE GT SCH (21:43)
[2022-08-20] MEDS: LATANOPROST OPHT DROP 2.5 ML BOTTLE EACHEYE SCH (21:43)
[2022-08-20] MEDS: NUTRISOURCE FIBER 4 GM PACKET GT SCH (21:46)
[2022-08-21] VITALS (10 sets, daily range): TEMP 97.6–98; O2SAT 97–99
[2022-08-21] MEDS: JEVITY 1.2 1000 ML LIQUID GT PRN (01:00)
[2022-08-21] MEDS: IPRATROPIUM BROMIDE 0.5 MG/2.5 ML NEBU NEB SCH ×4 (01:20→19:50)
[2022-08-21] MEDS: ALBUTEROL SULFATE 2.5 MG/3 ML NEBU NEB SCH ×4 (01:20→19:50)
[2022-08-21] MEDS: OMEPRAZOLE 20 MG CAPSULE.DR GT SCH (06:22)
[2022-08-21] MEDS: VALPROIC ACID 250 MG/5 ML LIQUID UDC GT SCH ×3 (06:22→21:12)
[2022-08-21] MEDS: ACIDOPHILUS/BULGARICUS CHEW TAB GT SCH ×3 (06:22→21:12)
[2022-08-21] MEDS: BENZOYL PEROXIDE 10% GEL 60 GM TUBE TP SCH ×2 (09:00→21:12)
[2022-08-21] MEDS: REMEDY ESSENTIAL ZINC PASTE 113 GM TP SCH ×2 (09:00→21:12)
[2022-08-21] MEDS: POLYVINYL ALCOHOL OPHT DROPS 15 ML BOTTLE EACHEYE SCH ×4 (09:00→21:11)
[2022-08-21] MEDS: HYDROGEN PEROXIDE 3% 118 ML BOTTLE TP SCH ×2 (09:30→21:42)
[2022-08-21] MEDS: BACLOFEN 20 MG TABLET GT SCH ×3 (09:45→21:12)
[2022-08-21] MEDS: PHENOBARBITAL 32.4 MG TABLET GT SCH ×2 (09:45→21:12)
[2022-08-21] MEDS: NUTRISOURCE FIBER 4 GM PACKET GT SCH (21:12)
[2022-08-21] MEDS: OMEGA-3 FATTY ACIDS/FISH OIL CAPSULE GT SCH (21:12)
[2022-08-21] MEDS: LATANOPROST OPHT DROP 2.5 ML BOTTLE EACHEYE SCH (21:12)
[2022-08-22] VITALS (10 sets, daily range): TEMP 97.6–97.8; O2SAT 96–99
[2022-08-22] MEDS: IPRATROPIUM BROMIDE 0.5 MG/2.5 ML NEBU NEB SCH ×4 (00:53→19:31)
[2022-08-22] MEDS: ALBUTEROL SULFATE 2.5 MG/3 ML NEBU NEB SCH ×4 (00:53→19:31)
[2022-08-22] MEDS: VALPROIC ACID 250 MG/5 ML LIQUID UDC GT SCH ×3 (06:01→21:30)
[2022-08-22] MEDS: JEVITY 1.2 1000 ML LIQUID GT PRN (06:01)
[2022-08-22] MEDS: ACIDOPHILUS/BULGARICUS CHEW TAB GT SCH ×3 (06:01→21:30)
[2022-08-22] MEDS: OMEPRAZOLE 20 MG CAPSULE.DR GT SCH (06:01)
[2022-08-22] MEDS: POLYVINYL ALCOHOL OPHT DROPS 15 ML BOTTLE EACHEYE SCH ×4 (08:14→21:29)
[2022-08-22] MEDS: BACLOFEN 20 MG TABLET GT SCH ×3 (08:15→21:29)
[2022-08-22] MEDS: REMEDY ESSENTIAL ZINC PASTE 113 GM TP SCH ×2 (08:15→21:29)
[2022-08-22] MEDS: PHENOBARBITAL 32.4 MG TABLET GT SCH ×2 (08:15→21:29)
[2022-08-22] MEDS: BENZOYL PEROXIDE 10% GEL 60 GM TUBE TP SCH ×2 (08:15→21:29)
[2022-08-22] MEDS: HYDROGEN PEROXIDE 3% 118 ML BOTTLE TP SCH ×2 (09:21→19:31)
[2022-08-22] MEDS: NUTRISOURCE FIBER 4 GM PACKET GT SCH (21:29)
[2022-08-22] MEDS: LATANOPROST OPHT DROP 2.5 ML BOTTLE EACHEYE SCH (21:29)
[2022-08-22] MEDS: OMEGA-3 FATTY ACIDS/FISH OIL CAPSULE GT SCH (21:29)
[2022-08-23] VITALS (10 sets, daily range): TEMP 97.4–98.2; O2SAT 97–99
[2022-08-23] MEDS: ALBUTEROL SULFATE 2.5 MG/3 ML NEBU NEB SCH ×4 (00:33→19:14)
[2022-08-23] MEDS: IPRATROPIUM BROMIDE 0.5 MG/2.5 ML NEBU NEB SCH ×4 (00:33→19:14)
[2022-08-23] MEDS: OMEPRAZOLE 20 MG CAPSULE.DR GT SCH (06:47)
[2022-08-23] MEDS: ACIDOPHILUS/BULGARICUS CHEW TAB GT SCH ×3 (06:47→21:33)
[2022-08-23] MEDS: VALPROIC ACID 250 MG/5 ML LIQUID UDC GT SCH ×3 (06:47→21:33)
[2022-08-23] MEDS: JEVITY 1.2 1000 ML LIQUID GT PRN (06:48)
[2022-08-23] MEDS: PHENOBARBITAL 32.4 MG TABLET GT SCH ×2 (08:22→20:56)
[2022-08-23] MEDS: REMEDY ESSENTIAL ZINC PASTE 113 GM TP SCH ×2 (08:22→21:33)
[2022-08-23] MEDS: BACLOFEN 20 MG TABLET GT SCH ×3 (08:22→20:56)
[2022-08-23] MEDS: BENZOYL PEROXIDE 10% GEL 60 GM TUBE TP SCH ×2 (08:22→21:33)
[2022-08-23] MEDS: POLYVINYL ALCOHOL OPHT DROPS 15 ML BOTTLE EACHEYE SCH ×4 (08:33→21:33)
[2022-08-23] MEDS: HYDROGEN PEROXIDE 3% 118 ML BOTTLE TP SCH ×2 (09:17→19:14)
[2022-08-23] MEDS: OMEGA-3 FATTY ACIDS/FISH OIL CAPSULE GT SCH (20:56)
[2022-08-23] MEDS: NUTRISOURCE FIBER 4 GM PACKET GT SCH (21:33)
[2022-08-23] MEDS: LATANOPROST OPHT DROP 2.5 ML BOTTLE EACHEYE SCH (21:33)
[2022-08-24] VITALS (10 sets, daily range): TEMP 97.5–98.1; O2SAT 97–99
[2022-08-24] MEDS: ALBUTEROL SULFATE 2.5 MG/3 ML NEBU NEB SCH ×4 (00:34→19:15)
[2022-08-24] MEDS: IPRATROPIUM BROMIDE 0.5 MG/2.5 ML NEBU NEB SCH ×4 (00:34→19:15)
[2022-08-24] MEDS: VALPROIC ACID 250 MG/5 ML LIQUID UDC GT SCH ×3 (06:02→21:26)
[2022-08-24] MEDS: OMEPRAZOLE 20 MG CAPSULE.DR GT SCH (06:02)
[2022-08-24] MEDS: ACIDOPHILUS/BULGARICUS CHEW TAB GT SCH ×3 (06:02→21:26)
[2022-08-24] MEDS: HYDROGEN PEROXIDE 3% 118 ML BOTTLE TP SCH ×2 (08:58→19:15)
[2022-08-24] MEDS: PHENOBARBITAL 32.4 MG TABLET GT SCH ×2 (09:35→21:26)
[2022-08-24] MEDS: BACLOFEN 20 MG TABLET GT SCH ×3 (09:35→21:25)
[2022-08-24] MEDS: REMEDY ESSENTIAL ZINC PASTE 113 GM TP SCH ×2 (09:35→21:26)
[2022-08-24] MEDS: BENZOYL PEROXIDE 10% GEL 60 GM TUBE TP SCH ×2 (09:35→21:26)
[2022-08-24] MEDS: POLYVINYL ALCOHOL OPHT DROPS 15 ML BOTTLE EACHEYE SCH ×4 (09:35→21:25)
[2022-08-24] MEDS: NUTRISOURCE FIBER 4 GM PACKET GT SCH (21:25)
[2022-08-24] MEDS: OMEGA-3 FATTY ACIDS/FISH OIL CAPSULE GT SCH (21:25)
[2022-08-24] MEDS: LATANOPROST OPHT DROP 2.5 ML BOTTLE EACHEYE SCH (21:25)
[2022-08-25] VITALS (10 sets, daily range): TEMP 97–97.4; O2SAT 98–99
[2022-08-25] MEDS: IPRATROPIUM BROMIDE 0.5 MG/2.5 ML NEBU NEB SCH ×4 (00:48→19:30)
[2022-08-25] MEDS: ALBUTEROL SULFATE 2.5 MG/3 ML NEBU NEB SCH ×4 (00:48→19:30)
[2022-08-25] MEDS: OMEPRAZOLE 20 MG CAPSULE.DR GT SCH (05:49)
[2022-08-25] MEDS: VALPROIC ACID 250 MG/5 ML LIQUID UDC GT SCH ×3 (05:49→21:36)
[2022-08-25] MEDS: ACIDOPHILUS/BULGARICUS CHEW TAB GT SCH ×3 (05:49→21:36)
[2022-08-25] MEDS: HYDROGEN PEROXIDE 3% 118 ML BOTTLE TP SCH ×2 (07:40→21:00)
[2022-08-25] MEDS: REMEDY ESSENTIAL ZINC PASTE 113 GM TP SCH ×2 (09:12→21:36)
[2022-08-25] MEDS: BACLOFEN 20 MG TABLET GT SCH ×3 (09:12→21:36)
[2022-08-25] MEDS: POLYVINYL ALCOHOL OPHT DROPS 15 ML BOTTLE EACHEYE SCH ×4 (09:12→21:36)
[2022-08-25] MEDS: BENZOYL PEROXIDE 10% GEL 60 GM TUBE TP SCH ×2 (09:12→21:36)
[2022-08-25] MEDS: PHENOBARBITAL 32.4 MG TABLET GT SCH ×2 (09:12→21:36)
[2022-08-25] MEDS: OMEGA-3 FATTY ACIDS/FISH OIL CAPSULE GT SCH (21:36)
[2022-08-25] MEDS: NUTRISOURCE FIBER 4 GM PACKET GT SCH (21:36)
[2022-08-25] MEDS: LATANOPROST OPHT DROP 2.5 ML BOTTLE EACHEYE SCH (21:36)
[2022-08-26] VITALS (9 sets, daily range): TEMP 98.5; O2SAT 96–99
[2022-08-26] MEDS: ALBUTEROL SULFATE 2.5 MG/3 ML NEBU NEB SCH ×4 (01:59→19:50)
[2022-08-26] MEDS: IPRATROPIUM BROMIDE 0.5 MG/2.5 ML NEBU NEB SCH ×4 (01:59→19:50)
[2022-08-26] MEDS: ACIDOPHILUS/BULGARICUS CHEW TAB GT SCH ×3 (05:38→21:36)
[2022-08-26] MEDS: VALPROIC ACID 250 MG/5 ML LIQUID UDC GT SCH ×3 (05:38→21:36)
[2022-08-26] MEDS: OMEPRAZOLE 20 MG CAPSULE.DR GT SCH (05:39)
[2022-08-26] MEDS: PHENOBARBITAL 32.4 MG TABLET GT SCH ×2 (08:44→21:36)
[2022-08-26] MEDS: BACLOFEN 20 MG TABLET GT SCH ×3 (08:44→21:36)
[2022-08-26] MEDS: REMEDY ESSENTIAL ZINC PASTE 113 GM TP SCH ×2 (08:44→21:36)
[2022-08-26] MEDS: POLYVINYL ALCOHOL OPHT DROPS 15 ML BOTTLE EACHEYE SCH ×4 (08:44→21:35)
[2022-08-26] MEDS: BENZOYL PEROXIDE 10% GEL 60 GM TUBE TP SCH ×2 (08:44→21:36)
[2022-08-26] MEDS: HYDROGEN PEROXIDE 3% 118 ML BOTTLE TP SCH ×2 (08:56→20:55)
[2022-08-26] MEDS: OMEGA-3 FATTY ACIDS/FISH OIL CAPSULE GT SCH (21:35)
[2022-08-26] MEDS: LATANOPROST OPHT DROP 2.5 ML BOTTLE EACHEYE SCH (21:35)
[2022-08-26] MEDS: NUTRISOURCE FIBER 4 GM PACKET GT SCH (21:36)
[2022-08-27] VITALS (12 sets, daily range): TEMP 97.1–97.8; O2SAT 97–99
[2022-08-27] MEDS: ALBUTEROL SULFATE 2.5 MG/3 ML NEBU NEB SCH ×4 (01:11→19:24)
[2022-08-27] MEDS: IPRATROPIUM BROMIDE 0.5 MG/2.5 ML NEBU NEB SCH ×4 (01:11→19:24)
[2022-08-27] MEDS: VALPROIC ACID 250 MG/5 ML LIQUID UDC GT SCH ×3 (05:15→21:52)
[2022-08-27] MEDS: OMEPRAZOLE 20 MG CAPSULE.DR GT SCH (05:16)
[2022-08-27] MEDS: JEVITY 1.2 1000 ML LIQUID GT PRN (05:16)
[2022-08-27] MEDS: ACIDOPHILUS/BULGARICUS CHEW TAB GT SCH ×3 (05:16→21:52)
[2022-08-27] MEDS: POLYVINYL ALCOHOL OPHT DROPS 15 ML BOTTLE EACHEYE SCH ×4 (08:18→21:52)
[2022-08-27] MEDS: BACLOFEN 20 MG TABLET GT SCH ×3 (08:18→21:52)
[2022-08-27] MEDS: PHENOBARBITAL 32.4 MG TABLET GT SCH ×2 (08:18→21:52)
[2022-08-27] MEDS: BENZOYL PEROXIDE 10% GEL 60 GM TUBE TP SCH ×2 (08:19→21:52)
[2022-08-27] MEDS: REMEDY ESSENTIAL ZINC PASTE 113 GM TP SCH ×2 (08:19→21:52)
[2022-08-27] MEDS: HYDROGEN PEROXIDE 3% 118 ML BOTTLE TP SCH ×2 (09:26→19:24)
[2022-08-27] MEDS: LATANOPROST OPHT DROP 2.5 ML BOTTLE EACHEYE SCH (21:52)
[2022-08-27] MEDS: OMEGA-3 FATTY ACIDS/FISH OIL CAPSULE GT SCH (21:52)
[2022-08-27] MEDS: NUTRISOURCE FIBER 4 GM PACKET GT SCH (21:52)
[2022-08-28] VITALS (10 sets, daily range): TEMP 98–98.2; O2SAT 96–99
[2022-08-28] MEDS: ALBUTEROL SULFATE 2.5 MG/3 ML NEBU NEB SCH ×4 (01:12→19:50)
[2022-08-28] MEDS: IPRATROPIUM BROMIDE 0.5 MG/2.5 ML NEBU NEB SCH ×4 (01:12→19:50)
[2022-08-28] MEDS: JEVITY 1.2 1000 ML LIQUID GT PRN (01:14)
[2022-08-28] MEDS: VALPROIC ACID 250 MG/5 ML LIQUID UDC GT SCH ×3 (05:41→21:57)
[2022-08-28] MEDS: OMEPRAZOLE 20 MG CAPSULE.DR GT SCH (05:41)
[2022-08-28] MEDS: ACIDOPHILUS/BULGARICUS CHEW TAB GT SCH ×3 (05:41→21:57)
[2022-08-28] MEDS: HYDROGEN PEROXIDE 3% 118 ML BOTTLE TP SCH ×2 (08:57→21:26)
[2022-08-28] MEDS: BENZOYL PEROXIDE 10% GEL 60 GM TUBE TP SCH ×2 (09:57→21:56)
[2022-08-28] MEDS: POLYVINYL ALCOHOL OPHT DROPS 15 ML BOTTLE EACHEYE SCH ×4 (09:57→21:56)
[2022-08-28] MEDS: BACLOFEN 20 MG TABLET GT SCH ×3 (09:57→21:56)
[2022-08-28] MEDS: PHENOBARBITAL 32.4 MG TABLET GT SCH ×2 (09:57→21:56)
[2022-08-28] MEDS: REMEDY ESSENTIAL ZINC PASTE 113 GM TP SCH ×2 (09:57→21:57)
[2022-08-28] MEDS: NUTRISOURCE FIBER 4 GM PACKET GT SCH (21:56)
[2022-08-28] MEDS: LATANOPROST OPHT DROP 2.5 ML BOTTLE EACHEYE SCH (21:56)
[2022-08-28] MEDS: OMEGA-3 FATTY ACIDS/FISH OIL CAPSULE GT SCH (21:56)
[2022-08-29] VITALS (10 sets, daily range): TEMP 97.6–97.7; O2SAT 96–99
[2022-08-29] MEDS: ALBUTEROL SULFATE 2.5 MG/3 ML NEBU NEB SCH ×4 (01:17→19:50)
[2022-08-29] MEDS: IPRATROPIUM BROMIDE 0.5 MG/2.5 ML NEBU NEB SCH ×4 (01:17→19:50)
[2022-08-29] MEDS: ACIDOPHILUS/BULGARICUS CHEW TAB GT SCH ×3 (05:33→21:12)
[2022-08-29] MEDS: OMEPRAZOLE 20 MG CAPSULE.DR GT SCH (05:33)
[2022-08-29] MEDS: VALPROIC ACID 250 MG/5 ML LIQUID UDC GT SCH ×3 (05:33→21:12)
[2022-08-29] MEDS: POLYVINYL ALCOHOL OPHT DROPS 15 ML BOTTLE EACHEYE SCH ×4 (08:16→21:11)
[2022-08-29] MEDS: BACLOFEN 20 MG TABLET GT SCH ×3 (08:16→21:12)
[2022-08-29] MEDS: PHENOBARBITAL 32.4 MG TABLET GT SCH ×2 (08:17→21:12)
[2022-08-29] MEDS: BENZOYL PEROXIDE 10% GEL 60 GM TUBE TP SCH ×2 (08:17→21:12)
[2022-08-29] MEDS: REMEDY ESSENTIAL ZINC PASTE 113 GM TP SCH ×2 (08:17→21:12)
[2022-08-29] MEDS: HYDROGEN PEROXIDE 3% 118 ML BOTTLE TP SCH ×2 (09:39→21:04)
[2022-08-29] MEDS: JEVITY 1.2 1000 ML LIQUID GT PRN (12:00)
[2022-08-29] MEDS: OMEGA-3 FATTY ACIDS/FISH OIL CAPSULE GT SCH (21:11)
[2022-08-29] MEDS: LATANOPROST OPHT DROP 2.5 ML BOTTLE EACHEYE SCH (21:11)
[2022-08-29] MEDS: NUTRISOURCE FIBER 4 GM PACKET GT SCH (21:12)
[2022-08-30] VITALS (10 sets, daily range): TEMP 97–97.4; O2SAT 96–99
[2022-08-30] MEDS: IPRATROPIUM BROMIDE 0.5 MG/2.5 ML NEBU NEB SCH ×4 (00:57→19:21)
[2022-08-30] MEDS: ALBUTEROL SULFATE 2.5 MG/3 ML NEBU NEB SCH ×4 (00:57→19:21)
[2022-08-30] MEDS: ACIDOPHILUS/BULGARICUS CHEW TAB GT SCH ×3 (05:33→21:56)
[2022-08-30] MEDS: VALPROIC ACID 250 MG/5 ML LIQUID UDC GT SCH ×3 (05:33→21:56)
[2022-08-30] MEDS: OMEPRAZOLE 20 MG CAPSULE.DR GT SCH (05:33)
[2022-08-30] MEDS: BACLOFEN 20 MG TABLET GT SCH ×3 (08:37→20:27)
[2022-08-30] MEDS: BENZOYL PEROXIDE 10% GEL 60 GM TUBE TP SCH ×2 (08:37→20:27)
[2022-08-30] MEDS: PHENOBARBITAL 32.4 MG TABLET GT SCH ×2 (08:37→20:27)
[2022-08-30] MEDS: REMEDY ESSENTIAL ZINC PASTE 113 GM TP SCH ×2 (08:37→20:27)
[2022-08-30] MEDS: POLYVINYL ALCOHOL OPHT DROPS 15 ML BOTTLE EACHEYE SCH ×4 (08:37→20:26)
[2022-08-30] MEDS: HYDROGEN PEROXIDE 3% 118 ML BOTTLE TP SCH ×2 (09:34→19:21)
[2022-08-30] MEDS: LATANOPROST OPHT DROP 2.5 ML BOTTLE EACHEYE SCH (20:26)
[2022-08-30] MEDS: OMEGA-3 FATTY ACIDS/FISH OIL CAPSULE GT SCH (20:26)
[2022-08-30] MEDS: NUTRISOURCE FIBER 4 GM PACKET GT SCH (20:26)
[2022-08-31] VITALS (10 sets, daily range): TEMP 97.8–97.9; O2SAT 96–99
[2022-08-31] MEDS: IPRATROPIUM BROMIDE 0.5 MG/2.5 ML NEBU NEB SCH ×4 (02:20→19:08)
[2022-08-31] MEDS: ALBUTEROL SULFATE 2.5 MG/3 ML NEBU NEB SCH ×4 (02:20→19:08)
[2022-08-31] MEDS: OMEPRAZOLE 20 MG CAPSULE.DR GT SCH (05:59)
[2022-08-31] MEDS: VALPROIC ACID 250 MG/5 ML LIQUID UDC GT SCH ×3 (05:59→22:12)
[2022-08-31] MEDS: ACIDOPHILUS/BULGARICUS CHEW TAB GT SCH ×3 (05:59→22:12)
[2022-08-31] MEDS: HYDROGEN PEROXIDE 3% 118 ML BOTTLE TP SCH ×2 (09:00→19:08)
[2022-08-31] MEDS: BENZOYL PEROXIDE 10% GEL 60 GM TUBE TP SCH ×2 (09:10→20:27)
[2022-08-31] MEDS: PHENOBARBITAL 32.4 MG TABLET GT SCH ×2 (09:10→20:27)
[2022-08-31] MEDS: POLYVINYL ALCOHOL OPHT DROPS 15 ML BOTTLE EACHEYE SCH ×4 (09:10→20:26)
[2022-08-31] MEDS: BACLOFEN 20 MG TABLET GT SCH ×3 (09:10→20:27)
[2022-08-31] MEDS: REMEDY ESSENTIAL ZINC PASTE 113 GM TP SCH ×2 (09:11→20:27)
[2022-08-31] MEDS: LATANOPROST OPHT DROP 2.5 ML BOTTLE EACHEYE SCH (20:27)
[2022-08-31] MEDS: NUTRISOURCE FIBER 4 GM PACKET GT SCH (20:27)
[2022-08-31] MEDS: OMEGA-3 FATTY ACIDS/FISH OIL CAPSULE GT SCH (20:27)
[2022-09-01] VITALS (10 sets, daily range): TEMP 98; O2SAT 96–99
[2022-09-01] MEDS: ALBUTEROL SULFATE 2.5 MG/3 ML NEBU NEB SCH ×4 (01:30→19:30)
[2022-09-01] MEDS: IPRATROPIUM BROMIDE 0.5 MG/2.5 ML NEBU NEB SCH ×4 (01:30→19:30)
[2022-09-01] MEDS: JEVITY 1.2 1000 ML LIQUID GT PRN (03:55)
[2022-09-01] MEDS: ACIDOPHILUS/BULGARICUS CHEW TAB GT SCH ×3 (06:12→21:45)
[2022-09-01] MEDS: OMEPRAZOLE 20 MG CAPSULE.DR GT SCH (06:12)
[2022-09-01] MEDS: VALPROIC ACID 250 MG/5 ML LIQUID UDC GT SCH ×3 (06:12→21:45)
[2022-09-01] MEDS: HYDROGEN PEROXIDE 3% 118 ML BOTTLE TP SCH ×2 (07:30→21:27)
[2022-09-01] MEDS: POLYVINYL ALCOHOL OPHT DROPS 15 ML BOTTLE EACHEYE SCH ×4 (08:15→20:09)
[2022-09-01] MEDS: PHENOBARBITAL 32.4 MG TABLET GT SCH ×2 (08:15→20:09)
[2022-09-01] MEDS: BACLOFEN 20 MG TABLET GT SCH ×3 (08:15→20:09)
[2022-09-01] MEDS: REMEDY ESSENTIAL ZINC PASTE 113 GM TP SCH ×2 (08:16→20:09)
[2022-09-01] MEDS: BENZOYL PEROXIDE 10% GEL 60 GM TUBE TP SCH ×2 (08:16→20:09)
[2022-09-01] MEDS: OMEGA-3 FATTY ACIDS/FISH OIL CAPSULE GT SCH (20:09)
[2022-09-01] MEDS: NUTRISOURCE FIBER 4 GM PACKET GT SCH (20:09)
[2022-09-01] MEDS: LATANOPROST OPHT DROP 2.5 ML BOTTLE EACHEYE SCH (20:09)
[2022-09-02] VITALS (10 sets, daily range): TEMP 97.5–98.1; O2SAT 96–99
[2022-09-02] MEDS: ALBUTEROL SULFATE 2.5 MG/3 ML NEBU NEB SCH ×4 (00:50→19:55)
[2022-09-02] MEDS: IPRATROPIUM BROMIDE 0.5 MG/2.5 ML NEBU NEB SCH ×4 (00:50→19:55)
[2022-09-02] MEDS: ACIDOPHILUS/BULGARICUS CHEW TAB GT SCH ×3 (05:27→21:09)
[2022-09-02] MEDS: VALPROIC ACID 250 MG/5 ML LIQUID UDC GT SCH ×3 (05:27→21:09)
[2022-09-02] MEDS: OMEPRAZOLE 20 MG CAPSULE.DR GT SCH (05:27)
[2022-09-02] MEDS: HYDROGEN PEROXIDE 3% 118 ML BOTTLE TP SCH ×2 (07:30→20:54)
[2022-09-02] MEDS: POLYVINYL ALCOHOL OPHT DROPS 15 ML BOTTLE EACHEYE SCH ×4 (08:49→21:09)
[2022-09-02] MEDS: BACLOFEN 20 MG TABLET GT SCH ×3 (08:49→21:09)
[2022-09-02] MEDS: BENZOYL PEROXIDE 10% GEL 60 GM TUBE TP SCH ×2 (08:49→21:09)
[2022-09-02] MEDS: REMEDY ESSENTIAL ZINC PASTE 113 GM TP SCH ×2 (08:49→21:09)
[2022-09-02] MEDS: PHENOBARBITAL 32.4 MG TABLET GT SCH ×2 (08:49→21:09)
[2022-09-02] MEDS: JEVITY 1.2 1000 ML LIQUID GT PRN (12:18)
[2022-09-02] MEDS: OMEGA-3 FATTY ACIDS/FISH OIL CAPSULE GT SCH (21:09)
[2022-09-02] MEDS: LATANOPROST OPHT DROP 2.5 ML BOTTLE EACHEYE SCH (21:09)
[2022-09-02] MEDS: NUTRISOURCE FIBER 4 GM PACKET GT SCH (21:09)
[2022-09-03] VITALS (10 sets, daily range): TEMP 96.8–97.6; O2SAT 96–99
[2022-09-03] MEDS: ALBUTEROL SULFATE 2.5 MG/3 ML NEBU NEB SCH ×4 (00:50→19:34)
[2022-09-03] MEDS: IPRATROPIUM BROMIDE 0.5 MG/2.5 ML NEBU NEB SCH ×4 (00:50→19:34)
[2022-09-03] MEDS: ACIDOPHILUS/BULGARICUS CHEW TAB GT SCH ×3 (05:27→21:40)
[2022-09-03] MEDS: VALPROIC ACID 250 MG/5 ML LIQUID UDC GT SCH ×3 (05:27→21:40)
[2022-09-03] MEDS: OMEPRAZOLE 20 MG CAPSULE.DR GT SCH (05:27)
[2022-09-03] MEDS: POLYVINYL ALCOHOL OPHT DROPS 15 ML BOTTLE EACHEYE SCH ×4 (08:42→21:39)
[2022-09-03] MEDS: PHENOBARBITAL 32.4 MG TABLET GT SCH ×2 (08:42→21:40)
[2022-09-03] MEDS: BACLOFEN 20 MG TABLET GT SCH ×3 (08:42→21:40)
[2022-09-03] MEDS: HYDROGEN PEROXIDE 3% 118 ML BOTTLE TP SCH ×2 (09:00→21:12)
[2022-09-03] MEDS: BENZOYL PEROXIDE 10% GEL 60 GM TUBE TP SCH ×2 (09:00→21:40)
[2022-09-03] MEDS: REMEDY ESSENTIAL ZINC PASTE 113 GM TP SCH ×2 (09:00→21:40)
[2022-09-03] MEDS: LATANOPROST OPHT DROP 2.5 ML BOTTLE EACHEYE SCH (21:40)
[2022-09-03] MEDS: NUTRISOURCE FIBER 4 GM PACKET GT SCH (21:40)
[2022-09-03] MEDS: OMEGA-3 FATTY ACIDS/FISH OIL CAPSULE GT SCH (21:40)
[2022-09-04] VITALS (10 sets, daily range): TEMP 97.4–98.2; O2SAT 96–99
[2022-09-04] MEDS: ALBUTEROL SULFATE 2.5 MG/3 ML NEBU NEB SCH ×4 (00:46→19:30)
[2022-09-04] MEDS: IPRATROPIUM BROMIDE 0.5 MG/2.5 ML NEBU NEB SCH ×4 (00:46→19:30)
[2022-09-04] MEDS: JEVITY 1.2 1000 ML LIQUID GT PRN (01:51)
[2022-09-04] MEDS: VALPROIC ACID 250 MG/5 ML LIQUID UDC GT SCH ×3 (06:17→21:22)
[2022-09-04] MEDS: ACIDOPHILUS/BULGARICUS CHEW TAB GT SCH ×3 (06:17→21:22)
[2022-09-04] MEDS: OMEPRAZOLE 20 MG CAPSULE.DR GT SCH (06:17)
[2022-09-04] MEDS: POLYVINYL ALCOHOL OPHT DROPS 15 ML BOTTLE EACHEYE SCH ×4 (08:32→21:22)
[2022-09-04] MEDS: BACLOFEN 20 MG TABLET GT SCH ×3 (08:32→21:22)
[2022-09-04] MEDS: PHENOBARBITAL 32.4 MG TABLET GT SCH ×2 (08:32→21:22)
[2022-09-04] MEDS: REMEDY ESSENTIAL ZINC PASTE 113 GM TP SCH ×2 (08:32→21:22)
[2022-09-04] MEDS: BENZOYL PEROXIDE 10% GEL 60 GM TUBE TP SCH ×2 (08:32→21:22)
[2022-09-04] MEDS: HYDROGEN PEROXIDE 3% 118 ML BOTTLE TP SCH ×2 (09:50→19:30)
[2022-09-04] MEDS: NUTRISOURCE FIBER 4 GM PACKET GT SCH (21:22)
[2022-09-04] MEDS: LATANOPROST OPHT DROP 2.5 ML BOTTLE EACHEYE SCH (21:22)
[2022-09-04] MEDS: OMEGA-3 FATTY ACIDS/FISH OIL CAPSULE GT SCH (21:22)
[2022-09-05] VITALS (9 sets, daily range): TEMP 97.8–98; O2SAT 97–99
[2022-09-05] MEDS: IPRATROPIUM BROMIDE 0.5 MG/2.5 ML NEBU NEB SCH ×4 (01:19→20:05)
[2022-09-05] MEDS: ALBUTEROL SULFATE 2.5 MG/3 ML NEBU NEB SCH ×4 (01:19→20:05)
[2022-09-05] MEDS: OMEPRAZOLE 20 MG CAPSULE.DR GT SCH (05:32)
[2022-09-05] MEDS: ACIDOPHILUS/BULGARICUS CHEW TAB GT SCH ×3 (05:32→22:23)
[2022-09-05] MEDS: VALPROIC ACID 250 MG/5 ML LIQUID UDC GT SCH ×3 (05:32→22:23)
[2022-09-05] MEDS: HYDROGEN PEROXIDE 3% 118 ML BOTTLE TP SCH ×2 (07:35→21:51)
[2022-09-05] MEDS: POLYVINYL ALCOHOL OPHT DROPS 15 ML BOTTLE EACHEYE SCH ×4 (09:04→21:00)
[2022-09-05] MEDS: PHENOBARBITAL 32.4 MG TABLET GT SCH ×2 (09:05→21:00)
[2022-09-05] MEDS: BACLOFEN 20 MG TABLET GT SCH ×3 (09:05→21:00)
[2022-09-05] MEDS: BENZOYL PEROXIDE 10% GEL 60 GM TUBE TP SCH ×2 (09:05→21:00)
[2022-09-05] MEDS: REMEDY ESSENTIAL ZINC PASTE 113 GM TP SCH ×2 (09:05→21:00)
[2022-09-05] MEDS: JEVITY 1.2 1000 ML LIQUID GT PRN (11:01)
[2022-09-05] MEDS: NUTRISOURCE FIBER 4 GM PACKET GT SCH (21:00)
[2022-09-05] MEDS: LATANOPROST OPHT DROP 2.5 ML BOTTLE EACHEYE SCH (21:00)
[2022-09-05] MEDS: OMEGA-3 FATTY ACIDS/FISH OIL CAPSULE GT SCH (21:00)
[2022-09-06] VITALS (10 sets, daily range): TEMP 97.3–98.8; O2SAT 96–99
[2022-09-06] MEDS: ALBUTEROL SULFATE 2.5 MG/3 ML NEBU NEB SCH ×4 (00:48→19:30)
[2022-09-06] MEDS: IPRATROPIUM BROMIDE 0.5 MG/2.5 ML NEBU NEB SCH ×4 (00:48→19:30)
[2022-09-06] MEDS: JEVITY 1.2 1000 ML LIQUID GT PRN (05:35)
[2022-09-06] MEDS: VALPROIC ACID 250 MG/5 ML LIQUID UDC GT SCH ×3 (05:36→21:39)
[2022-09-06] MEDS: OMEPRAZOLE 20 MG CAPSULE.DR GT SCH (05:36)
[2022-09-06] MEDS: ACIDOPHILUS/BULGARICUS CHEW TAB GT SCH ×3 (05:36→21:39)
[2022-09-06] MEDS: BACLOFEN 20 MG TABLET GT SCH ×3 (08:28→21:39)
[2022-09-06] MEDS: BENZOYL PEROXIDE 10% GEL 60 GM TUBE TP SCH ×2 (08:28→21:39)
[2022-09-06] MEDS: POLYVINYL ALCOHOL OPHT DROPS 15 ML BOTTLE EACHEYE SCH ×4 (08:28→21:39)
[2022-09-06] MEDS: PHENOBARBITAL 32.4 MG TABLET GT SCH ×2 (08:28→21:39)
[2022-09-06] MEDS: REMEDY ESSENTIAL ZINC PASTE 113 GM TP SCH ×2 (08:28→21:39)
[2022-09-06] MEDS: HYDROGEN PEROXIDE 3% 118 ML BOTTLE TP SCH ×2 (08:36→19:30)
[2022-09-06] MEDS: LATANOPROST OPHT DROP 2.5 ML BOTTLE EACHEYE SCH (21:39)
[2022-09-06] MEDS: NUTRISOURCE FIBER 4 GM PACKET GT SCH (21:39)
[2022-09-06] MEDS: OMEGA-3 FATTY ACIDS/FISH OIL CAPSULE GT SCH (21:39)
[2022-09-07] VITALS (9 sets, daily range): TEMP 97.8; O2SAT 96–99
[2022-09-07] MEDS: ALBUTEROL SULFATE 2.5 MG/3 ML NEBU NEB SCH ×4 (00:48→19:12)
[2022-09-07] MEDS: IPRATROPIUM BROMIDE 0.5 MG/2.5 ML NEBU NEB SCH ×4 (00:48→19:12)
[2022-09-07] MEDS: JEVITY 1.2 1000 ML LIQUID GT PRN (01:42)
[2022-09-07] MEDS: OMEPRAZOLE 20 MG CAPSULE.DR GT SCH (05:28)
[2022-09-07] MEDS: VALPROIC ACID 250 MG/5 ML LIQUID UDC GT SCH ×3 (05:28→21:37)
[2022-09-07] MEDS: ACIDOPHILUS/BULGARICUS CHEW TAB GT SCH ×3 (05:28→21:37)
[2022-09-07] MEDS: BENZOYL PEROXIDE 10% GEL 60 GM TUBE TP SCH ×2 (09:08→21:36)
[2022-09-07] MEDS: PHENOBARBITAL 32.4 MG TABLET GT SCH ×2 (09:08→21:36)
[2022-09-07] MEDS: POLYVINYL ALCOHOL OPHT DROPS 15 ML BOTTLE EACHEYE SCH ×4 (09:08→21:36)
[2022-09-07] MEDS: REMEDY ESSENTIAL ZINC PASTE 113 GM TP SCH ×2 (09:08→21:37)
[2022-09-07] MEDS: BACLOFEN 20 MG TABLET GT SCH ×3 (09:08→21:36)
[2022-09-07] MEDS: HYDROGEN PEROXIDE 3% 118 ML BOTTLE TP SCH ×2 (09:27→19:12)
[2022-09-07] MEDS: OMEGA-3 FATTY ACIDS/FISH OIL CAPSULE GT SCH (21:36)
[2022-09-07] MEDS: NUTRISOURCE FIBER 4 GM PACKET GT SCH (21:36)
[2022-09-07] MEDS: LATANOPROST OPHT DROP 2.5 ML BOTTLE EACHEYE SCH (21:36)
[2022-09-08] VITALS (10 sets, daily range): TEMP 97.4–97.9; O2SAT 96–99
[2022-09-08] MEDS: ALBUTEROL SULFATE 2.5 MG/3 ML NEBU NEB SCH ×4 (01:15→19:16)
[2022-09-08] MEDS: IPRATROPIUM BROMIDE 0.5 MG/2.5 ML NEBU NEB SCH ×4 (01:15→19:16)
[2022-09-08] MEDS: JEVITY 1.2 1000 ML LIQUID GT PRN (01:48)
[2022-09-08] MEDS: OMEPRAZOLE 20 MG CAPSULE.DR GT SCH (05:40)
[2022-09-08] MEDS: VALPROIC ACID 250 MG/5 ML LIQUID UDC GT SCH ×3 (05:40→22:00)
[2022-09-08] MEDS: ACIDOPHILUS/BULGARICUS CHEW TAB GT SCH ×3 (05:40→22:00)
[2022-09-08] MEDS: HYDROGEN PEROXIDE 3% 118 ML BOTTLE TP SCH ×2 (07:40→19:16)
[2022-09-08] MEDS: BACLOFEN 20 MG TABLET GT SCH ×3 (08:41→21:00)
[2022-09-08] MEDS: POLYVINYL ALCOHOL OPHT DROPS 15 ML BOTTLE EACHEYE SCH ×4 (08:41→21:00)
[2022-09-08] MEDS: PHENOBARBITAL 32.4 MG TABLET GT SCH ×2 (08:41→21:00)
[2022-09-08] MEDS: BENZOYL PEROXIDE 10% GEL 60 GM TUBE TP SCH ×2 (08:42→21:00)
[2022-09-08] MEDS: REMEDY ESSENTIAL ZINC PASTE 113 GM TP SCH ×2 (08:42→21:00)
[2022-09-08] MEDS: NUTRISOURCE FIBER 4 GM PACKET GT SCH (21:00)
[2022-09-08] MEDS: OMEGA-3 FATTY ACIDS/FISH OIL CAPSULE GT SCH (21:00)
[2022-09-08] MEDS: LATANOPROST OPHT DROP 2.5 ML BOTTLE EACHEYE SCH (21:00)
[2022-09-09] VITALS (10 sets, daily range): TEMP 97.4–97.7; O2SAT 96–99
[2022-09-09] MEDS: ALBUTEROL SULFATE 2.5 MG/3 ML NEBU NEB SCH ×4 (00:37→19:12)
[2022-09-09] MEDS: IPRATROPIUM BROMIDE 0.5 MG/2.5 ML NEBU NEB SCH ×4 (00:37→19:12)
[2022-09-09] MEDS: ACIDOPHILUS/BULGARICUS CHEW TAB GT SCH ×3 (06:00→22:11)
[2022-09-09] MEDS: VALPROIC ACID 250 MG/5 ML LIQUID UDC GT SCH ×3 (06:00→22:11)
[2022-09-09] MEDS: OMEPRAZOLE 20 MG CAPSULE.DR GT SCH (06:00)
[2022-09-09] MEDS: POLYVINYL ALCOHOL OPHT DROPS 15 ML BOTTLE EACHEYE SCH ×4 (09:05→21:00)
[2022-09-09] MEDS: BACLOFEN 20 MG TABLET GT SCH ×3 (09:06→22:14)
[2022-09-09] MEDS: REMEDY ESSENTIAL ZINC PASTE 113 GM TP SCH ×2 (09:06→21:00)
[2022-09-09] MEDS: PHENOBARBITAL 32.4 MG TABLET GT SCH ×2 (09:06→22:15)
[2022-09-09] MEDS: BENZOYL PEROXIDE 10% GEL 60 GM TUBE TP SCH ×2 (09:08→21:00)
[2022-09-09] MEDS: HYDROGEN PEROXIDE 3% 118 ML BOTTLE TP SCH ×2 (10:00→19:12)
[2022-09-09] MEDS: NUTRISOURCE FIBER 4 GM PACKET GT SCH (21:00)
[2022-09-09] MEDS: OMEGA-3 FATTY ACIDS/FISH OIL CAPSULE GT SCH (21:00)
[2022-09-09] MEDS: LATANOPROST OPHT DROP 2.5 ML BOTTLE EACHEYE SCH (21:00)
[2022-09-10] VITALS (11 sets, daily range): BP systolic 99; BP diastolic 61; TEMP 98–98.2; O2SAT 97–99
[2022-09-10] MEDS: IPRATROPIUM BROMIDE 0.5 MG/2.5 ML NEBU NEB SCH ×4 (00:40→19:10)
[2022-09-10] MEDS: ALBUTEROL SULFATE 2.5 MG/3 ML NEBU NEB SCH ×4 (00:40→19:10)
[2022-09-10] MEDS: JEVITY 1.2 1000 ML LIQUID GT PRN ×2 (00:42→19:58)
[2022-09-10] MEDS: ACIDOPHILUS/BULGARICUS CHEW TAB GT SCH ×3 (06:12→21:19)
[2022-09-10] MEDS: OMEPRAZOLE 20 MG CAPSULE.DR GT SCH (06:12)
[2022-09-10] MEDS: VALPROIC ACID 250 MG/5 ML LIQUID UDC GT SCH ×3 (06:12→21:19)
[2022-09-10] MEDS: BACLOFEN 20 MG TABLET GT SCH ×3 (08:17→20:03)
[2022-09-10] MEDS: BENZOYL PEROXIDE 10% GEL 60 GM TUBE TP SCH ×2 (08:17→20:03)
[2022-09-10] MEDS: PHENOBARBITAL 32.4 MG TABLET GT SCH ×2 (08:17→20:03)
[2022-09-10] MEDS: REMEDY ESSENTIAL ZINC PASTE 113 GM TP SCH ×2 (08:17→20:03)
[2022-09-10] MEDS: POLYVINYL ALCOHOL OPHT DROPS 15 ML BOTTLE EACHEYE SCH ×4 (08:17→20:03)
[2022-09-10] MEDS: HYDROGEN PEROXIDE 3% 118 ML BOTTLE TP SCH ×2 (09:06→19:10)
[2022-09-10] MEDS: OMEGA-3 FATTY ACIDS/FISH OIL CAPSULE GT SCH (20:03)
[2022-09-10] MEDS: NUTRISOURCE FIBER 4 GM PACKET GT SCH (20:03)
[2022-09-10] MEDS: LATANOPROST OPHT DROP 2.5 ML BOTTLE EACHEYE SCH (20:03)
[2022-09-11] VITALS (10 sets, daily range): TEMP 97.2–97.8; O2SAT 97–99
[2022-09-11] MEDS: ALBUTEROL SULFATE 2.5 MG/3 ML NEBU NEB SCH ×4 (01:25→19:06)
[2022-09-11] MEDS: IPRATROPIUM BROMIDE 0.5 MG/2.5 ML NEBU NEB SCH ×4 (01:25→19:06)
[2022-09-11] MEDS: VALPROIC ACID 250 MG/5 ML LIQUID UDC GT SCH ×3 (05:33→21:37)
[2022-09-11] MEDS: OMEPRAZOLE 20 MG CAPSULE.DR GT SCH (05:33)
[2022-09-11] MEDS: ACIDOPHILUS/BULGARICUS CHEW TAB GT SCH ×3 (05:33→21:38)
[2022-09-11] MEDS: PHENOBARBITAL 32.4 MG TABLET GT SCH ×2 (08:41→20:03)
[2022-09-11] MEDS: POLYVINYL ALCOHOL OPHT DROPS 15 ML BOTTLE EACHEYE SCH ×4 (08:41→20:03)
[2022-09-11] MEDS: BENZOYL PEROXIDE 10% GEL 60 GM TUBE TP SCH ×2 (08:41→20:03)
[2022-09-11] MEDS: REMEDY ESSENTIAL ZINC PASTE 113 GM TP SCH ×2 (08:41→20:03)
[2022-09-11] MEDS: BACLOFEN 20 MG TABLET GT SCH ×3 (08:41→20:03)
[2022-09-11] MEDS: HYDROGEN PEROXIDE 3% 118 ML BOTTLE TP SCH ×2 (09:23→19:06)
[2022-09-11] MEDS: JEVITY 1.2 1000 ML LIQUID GT PRN (17:09)
[2022-09-11] MEDS: OMEGA-3 FATTY ACIDS/FISH OIL CAPSULE GT SCH (20:03)
[2022-09-11] MEDS: NUTRISOURCE FIBER 4 GM PACKET GT SCH (20:03)
[2022-09-11] MEDS: LATANOPROST OPHT DROP 2.5 ML BOTTLE EACHEYE SCH (20:03)
[2022-09-12] VITALS (9 sets, daily range): TEMP 98; O2SAT 97–99
[2022-09-12] MEDS: IPRATROPIUM BROMIDE 0.5 MG/2.5 ML NEBU NEB SCH ×4 (01:32→19:40)
[2022-09-12] MEDS: ALBUTEROL SULFATE 2.5 MG/3 ML NEBU NEB SCH ×4 (01:32→19:40)
[2022-09-12] MEDS: ACIDOPHILUS/BULGARICUS CHEW TAB GT SCH ×3 (05:12→22:26)
[2022-09-12] MEDS: OMEPRAZOLE 20 MG CAPSULE.DR GT SCH (05:12)
[2022-09-12] MEDS: VALPROIC ACID 250 MG/5 ML LIQUID UDC GT SCH ×3 (05:12→22:26)
[2022-09-12] MEDS: HYDROGEN PEROXIDE 3% 118 ML BOTTLE TP SCH ×2 (08:37→20:42)
[2022-09-12] MEDS: BACLOFEN 20 MG TABLET GT SCH ×3 (09:30→21:00)
[2022-09-12] MEDS: PHENOBARBITAL 32.4 MG TABLET GT SCH ×2 (09:30→21:00)
[2022-09-12] MEDS: POLYVINYL ALCOHOL OPHT DROPS 15 ML BOTTLE EACHEYE SCH ×4 (09:30→21:00)
[2022-09-12] MEDS: REMEDY ESSENTIAL ZINC PASTE 113 GM TP SCH ×2 (09:31→21:00)
[2022-09-12] MEDS: BENZOYL PEROXIDE 10% GEL 60 GM TUBE TP SCH ×2 (09:32→21:00)
[2022-09-12] MEDS: JEVITY 1.2 1000 ML LIQUID GT PRN (11:46)
[2022-09-12] MEDS: NUTRISOURCE FIBER 4 GM PACKET GT SCH (21:00)
[2022-09-12] MEDS: LATANOPROST OPHT DROP 2.5 ML BOTTLE EACHEYE SCH (21:00)
[2022-09-12] MEDS: OMEGA-3 FATTY ACIDS/FISH OIL CAPSULE GT SCH (21:00)
[2022-09-13] VITALS (10 sets, daily range): TEMP 97.1–97.5; O2SAT 96–99
[2022-09-13] MEDS: ALBUTEROL SULFATE 2.5 MG/3 ML NEBU NEB SCH ×4 (01:07→19:50)
[2022-09-13] MEDS: IPRATROPIUM BROMIDE 0.5 MG/2.5 ML NEBU NEB SCH ×4 (01:07→19:50)
[2022-09-13] MEDS: VALPROIC ACID 250 MG/5 ML LIQUID UDC GT SCH ×3 (06:27→21:31)
[2022-09-13] MEDS: OMEPRAZOLE 20 MG CAPSULE.DR GT SCH (06:27)
[2022-09-13] MEDS: ACIDOPHILUS/BULGARICUS CHEW TAB GT SCH ×3 (06:27→21:31)
[2022-09-13] MEDS: POLYVINYL ALCOHOL OPHT DROPS 15 ML BOTTLE EACHEYE SCH ×4 (08:20→21:30)
[2022-09-13] MEDS: PHENOBARBITAL 32.4 MG TABLET GT SCH ×2 (08:20→21:30)
[2022-09-13] MEDS: BACLOFEN 20 MG TABLET GT SCH ×3 (08:20→21:30)
[2022-09-13] MEDS: BENZOYL PEROXIDE 10% GEL 60 GM TUBE TP SCH ×2 (08:21→21:31)
[2022-09-13] MEDS: REMEDY ESSENTIAL ZINC PASTE 113 GM TP SCH ×2 (08:21→21:31)
[2022-09-13] MEDS: HYDROGEN PEROXIDE 3% 118 ML BOTTLE TP SCH ×2 (09:32→20:47)
[2022-09-13] MEDS: JEVITY 1.2 1000 ML LIQUID GT PRN (13:51)
[2022-09-13] MEDS: OMEGA-3 FATTY ACIDS/FISH OIL CAPSULE GT SCH (21:30)
[2022-09-13] MEDS: NUTRISOURCE FIBER 4 GM PACKET GT SCH (21:30)
[2022-09-13] MEDS: LATANOPROST OPHT DROP 2.5 ML BOTTLE EACHEYE SCH (21:30)
[2022-09-14] VITALS (10 sets, daily range): TEMP 96.8–97.2; O2SAT 97–99
[2022-09-14] MEDS: ALBUTEROL SULFATE 2.5 MG/3 ML NEBU NEB SCH ×4 (01:13→19:07)
[2022-09-14] MEDS: IPRATROPIUM BROMIDE 0.5 MG/2.5 ML NEBU NEB SCH ×4 (01:13→19:07)
[2022-09-14] MEDS: VALPROIC ACID 250 MG/5 ML LIQUID UDC GT SCH ×3 (06:19→21:42)
[2022-09-14] MEDS: OMEPRAZOLE 20 MG CAPSULE.DR GT SCH (06:19)
[2022-09-14] MEDS: ACIDOPHILUS/BULGARICUS CHEW TAB GT SCH ×3 (06:19→21:42)
[2022-09-14] MEDS: REMEDY ESSENTIAL ZINC PASTE 113 GM TP SCH ×2 (08:50→21:42)
[2022-09-14] MEDS: PHENOBARBITAL 32.4 MG TABLET GT SCH ×2 (08:50→21:42)
[2022-09-14] MEDS: BACLOFEN 20 MG TABLET GT SCH ×3 (08:50→21:42)
[2022-09-14] MEDS: POLYVINYL ALCOHOL OPHT DROPS 15 ML BOTTLE EACHEYE SCH ×4 (08:50→21:42)
[2022-09-14] MEDS: BENZOYL PEROXIDE 10% GEL 60 GM TUBE TP SCH ×2 (08:50→21:42)
[2022-09-14] MEDS: HYDROGEN PEROXIDE 3% 118 ML BOTTLE TP SCH ×2 (09:25→19:07)
[2022-09-14] MEDS: LATANOPROST OPHT DROP 2.5 ML BOTTLE EACHEYE SCH (21:42)
[2022-09-14] MEDS: NUTRISOURCE FIBER 4 GM PACKET GT SCH (21:42)
[2022-09-14] MEDS: OMEGA-3 FATTY ACIDS/FISH OIL CAPSULE GT SCH (21:42)
[2022-09-15] VITALS (10 sets, daily range): TEMP 96.4–97; O2SAT 97–99
[2022-09-15] MEDS: ALBUTEROL SULFATE 2.5 MG/3 ML NEBU NEB SCH ×4 (00:58→18:29)
[2022-09-15] MEDS: IPRATROPIUM BROMIDE 0.5 MG/2.5 ML NEBU NEB SCH ×4 (00:58→18:28)
[2022-09-15] MEDS: JEVITY 1.2 1000 ML LIQUID GT PRN ×2 (01:07→19:35)
[2022-09-15] MEDS: OMEPRAZOLE 20 MG CAPSULE.DR GT SCH (05:34)
[2022-09-15] MEDS: ACIDOPHILUS/BULGARICUS CHEW TAB GT SCH ×3 (05:34→21:12)
[2022-09-15] MEDS: VALPROIC ACID 250 MG/5 ML LIQUID UDC GT SCH ×3 (05:34→21:12)
[2022-09-15] MEDS: HYDROGEN PEROXIDE 3% 118 ML BOTTLE TP SCH ×3 (07:35→18:29)
[2022-09-15] MEDS: REMEDY ESSENTIAL ZINC PASTE 113 GM TP SCH ×2 (09:00→21:12)
[2022-09-15] MEDS: POLYVINYL ALCOHOL OPHT DROPS 15 ML BOTTLE EACHEYE SCH ×4 (09:00→21:11)
[2022-09-15] MEDS: BENZOYL PEROXIDE 10% GEL 60 GM TUBE TP SCH ×2 (09:00→21:12)
[2022-09-15] MEDS: BACLOFEN 20 MG TABLET GT SCH ×3 (10:05→21:11)
[2022-09-15] MEDS: PHENOBARBITAL 32.4 MG TABLET GT SCH ×2 (10:06→21:11)
[2022-09-15] MEDS: OMEGA-3 FATTY ACIDS/FISH OIL CAPSULE GT SCH (21:11)
[2022-09-15] MEDS: LATANOPROST OPHT DROP 2.5 ML BOTTLE EACHEYE SCH (21:11)
[2022-09-15] MEDS: NUTRISOURCE FIBER 4 GM PACKET GT SCH (21:11)
[2022-09-16] VITALS (11 sets, daily range): TEMP 97.6–98.6; O2SAT 97–99
[2022-09-16] MEDS: IPRATROPIUM BROMIDE 0.5 MG/2.5 ML NEBU NEB SCH ×4 (02:06→17:53)
[2022-09-16] MEDS: ALBUTEROL SULFATE 2.5 MG/3 ML NEBU NEB SCH ×4 (02:06→17:53)
[2022-09-16] MEDS: OMEPRAZOLE 20 MG CAPSULE.DR GT SCH (05:38)
[2022-09-16] MEDS: VALPROIC ACID 250 MG/5 ML LIQUID UDC GT SCH ×3 (05:38→21:54)
[2022-09-16] MEDS: ACIDOPHILUS/BULGARICUS CHEW TAB GT SCH ×3 (05:38→21:54)
[2022-09-16] MEDS: BENZOYL PEROXIDE 10% GEL 60 GM TUBE TP SCH ×2 (08:16→21:54)
[2022-09-16] MEDS: PHENOBARBITAL 32.4 MG TABLET GT SCH ×2 (08:16→21:54)
[2022-09-16] MEDS: POLYVINYL ALCOHOL OPHT DROPS 15 ML BOTTLE EACHEYE SCH ×4 (08:16→21:53)
[2022-09-16] MEDS: BACLOFEN 20 MG TABLET GT SCH ×3 (08:16→21:53)
[2022-09-16] MEDS: REMEDY ESSENTIAL ZINC PASTE 113 GM TP SCH ×2 (08:17→21:54)
[2022-09-16] MEDS: JEVITY 1.2 1000 ML LIQUID GT PRN (18:26)
[2022-09-16] MEDS: HYDROGEN PEROXIDE 3% 118 ML BOTTLE TP SCH (21:45)
[2022-09-16] MEDS: LATANOPROST OPHT DROP 2.5 ML BOTTLE EACHEYE SCH (21:53)
[2022-09-16] MEDS: OMEGA-3 FATTY ACIDS/FISH OIL CAPSULE GT SCH (21:53)
[2022-09-16] MEDS: NUTRISOURCE FIBER 4 GM PACKET GT SCH (21:53)
[2022-09-17] VITALS (14 sets, daily range): BP systolic 98–101; BP diastolic 51–55; TEMP 97.4–97.5; O2SAT 97–99
[2022-09-17] MEDS: IPRATROPIUM BROMIDE 0.5 MG/2.5 ML NEBU NEB SCH ×4 (02:13→22:58)
[2022-09-17] MEDS: ALBUTEROL SULFATE 2.5 MG/3 ML NEBU NEB SCH ×4 (02:13→22:59)
[2022-09-17] MEDS: VALPROIC ACID 250 MG/5 ML LIQUID UDC GT SCH ×3 (05:46→22:00)
[2022-09-17] MEDS: ACIDOPHILUS/BULGARICUS CHEW TAB GT SCH ×3 (05:46→22:00)
[2022-09-17] MEDS: OMEPRAZOLE 20 MG CAPSULE.DR GT SCH (05:46)
[2022-09-17] MEDS: POLYVINYL ALCOHOL OPHT DROPS 15 ML BOTTLE EACHEYE SCH ×4 (08:35→20:21)
[2022-09-17] MEDS: BACLOFEN 20 MG TABLET GT SCH ×3 (08:36→20:22)
[2022-09-17] MEDS: PHENOBARBITAL 32.4 MG TABLET GT SCH ×2 (08:36→20:22)
[2022-09-17] MEDS: REMEDY ESSENTIAL ZINC PASTE 113 GM TP SCH ×2 (08:36→20:22)
[2022-09-17] MEDS: BENZOYL PEROXIDE 10% GEL 60 GM TUBE TP SCH ×2 (08:36→20:26)
[2022-09-17] MEDS: HYDROGEN PEROXIDE 3% 118 ML BOTTLE TP SCH ×2 (09:23→22:59)
[2022-09-17] MEDS: LATANOPROST OPHT DROP 2.5 ML BOTTLE EACHEYE SCH (20:21)
[2022-09-17] MEDS: NUTRISOURCE FIBER 4 GM PACKET GT SCH (20:22)
[2022-09-17] MEDS: OMEGA-3 FATTY ACIDS/FISH OIL CAPSULE GT SCH (20:22)
[2022-09-18] VITALS (11 sets, daily range): TEMP 97.4–97.8; O2SAT 97–99
[2022-09-18] MEDS: ALBUTEROL SULFATE 2.5 MG/3 ML NEBU NEB SCH ×4 (02:58→19:41)
[2022-09-18] MEDS: IPRATROPIUM BROMIDE 0.5 MG/2.5 ML NEBU NEB SCH ×4 (02:58→19:41)
[2022-09-18] MEDS: VALPROIC ACID 250 MG/5 ML LIQUID UDC GT SCH ×3 (05:26→21:04)
[2022-09-18] MEDS: ACIDOPHILUS/BULGARICUS CHEW TAB GT SCH ×3 (05:26→21:04)
[2022-09-18] MEDS: OMEPRAZOLE 20 MG CAPSULE.DR GT SCH (05:26)
[2022-09-18] MEDS: REMEDY ESSENTIAL ZINC PASTE 113 GM TP SCH ×2 (09:00→21:04)
[2022-09-18] MEDS: BENZOYL PEROXIDE 10% GEL 60 GM TUBE TP SCH ×2 (09:00→21:04)
[2022-09-18] MEDS: POLYVINYL ALCOHOL OPHT DROPS 15 ML BOTTLE EACHEYE SCH ×4 (09:00→21:03)
[2022-09-18] MEDS: HYDROGEN PEROXIDE 3% 118 ML BOTTLE TP SCH ×2 (09:52→19:41)
[2022-09-18] MEDS: BACLOFEN 20 MG TABLET GT SCH ×3 (10:53→21:04)
[2022-09-18] MEDS: PHENOBARBITAL 32.4 MG TABLET GT SCH ×2 (10:53→21:04)
[2022-09-18] MEDS: JEVITY 1.2 1000 ML LIQUID GT PRN (10:55)
[2022-09-18] MEDS: LATANOPROST OPHT DROP 2.5 ML BOTTLE EACHEYE SCH (21:03)
[2022-09-18] MEDS: NUTRISOURCE FIBER 4 GM PACKET GT SCH (21:04)
[2022-09-18] MEDS: OMEGA-3 FATTY ACIDS/FISH OIL CAPSULE GT SCH (21:04)
[2022-09-19] VITALS (10 sets, daily range): TEMP 97.1–97.5; O2SAT 97–99
[2022-09-19] MEDS: ALBUTEROL SULFATE 2.5 MG/3 ML NEBU NEB SCH ×4 (00:49→19:09)
[2022-09-19] MEDS: IPRATROPIUM BROMIDE 0.5 MG/2.5 ML NEBU NEB SCH ×4 (00:49→19:09)
[2022-09-19] MEDS: JEVITY 1.2 1000 ML LIQUID GT PRN (05:00)
[2022-09-19] MEDS: ACIDOPHILUS/BULGARICUS CHEW TAB GT SCH ×3 (06:41→21:53)
[2022-09-19] MEDS: VALPROIC ACID 250 MG/5 ML LIQUID UDC GT SCH ×3 (06:41→21:53)
[2022-09-19] MEDS: OMEPRAZOLE 20 MG CAPSULE.DR GT SCH (06:41)
[2022-09-19] MEDS: HYDROGEN PEROXIDE 3% 118 ML BOTTLE TP SCH ×2 (07:35→19:10)
[2022-09-19] MEDS: BENZOYL PEROXIDE 10% GEL 60 GM TUBE TP SCH ×2 (08:42→21:53)
[2022-09-19] MEDS: PHENOBARBITAL 32.4 MG TABLET GT SCH ×2 (08:42→21:53)
[2022-09-19] MEDS: REMEDY ESSENTIAL ZINC PASTE 113 GM TP SCH ×2 (08:42→21:53)
[2022-09-19] MEDS: BACLOFEN 20 MG TABLET GT SCH ×3 (08:42→21:51)
[2022-09-19] MEDS: POLYVINYL ALCOHOL OPHT DROPS 15 ML BOTTLE EACHEYE SCH ×4 (08:42→21:50)
[2022-09-19] MEDS: LATANOPROST OPHT DROP 2.5 ML BOTTLE EACHEYE SCH (21:50)
[2022-09-19] MEDS: OMEGA-3 FATTY ACIDS/FISH OIL CAPSULE GT SCH (21:51)
[2022-09-19] MEDS: NUTRISOURCE FIBER 4 GM PACKET GT SCH (21:53)
[2022-09-20] VITALS (11 sets, daily range): BP systolic 102; BP diastolic 62; TEMP 96–98.4; O2SAT 96–99
[2022-09-20] MEDS: ALBUTEROL SULFATE 2.5 MG/3 ML NEBU NEB SCH ×4 (00:50→19:40)
[2022-09-20] MEDS: IPRATROPIUM BROMIDE 0.5 MG/2.5 ML NEBU NEB SCH ×4 (00:50→19:40)
[2022-09-20] MEDS: JEVITY 1.2 1000 ML LIQUID GT PRN ×2 (01:30→22:30)
[2022-09-20] MEDS: VALPROIC ACID 250 MG/5 ML LIQUID UDC GT SCH ×3 (05:14→21:55)
[2022-09-20] MEDS: ACIDOPHILUS/BULGARICUS CHEW TAB GT SCH ×3 (05:14→21:55)
[2022-09-20] MEDS: OMEPRAZOLE 20 MG CAPSULE.DR GT SCH (05:14)
[2022-09-20] MEDS: PHENOBARBITAL 32.4 MG TABLET GT SCH ×2 (08:27→21:55)
[2022-09-20] MEDS: POLYVINYL ALCOHOL OPHT DROPS 15 ML BOTTLE EACHEYE SCH ×4 (08:27→21:54)
[2022-09-20] MEDS: BACLOFEN 20 MG TABLET GT SCH ×3 (08:27→21:54)
[2022-09-20] MEDS: BENZOYL PEROXIDE 10% GEL 60 GM TUBE TP SCH ×2 (08:27→21:55)
[2022-09-20] MEDS: REMEDY ESSENTIAL ZINC PASTE 113 GM TP SCH ×2 (08:28→21:55)
[2022-09-20] MEDS: HYDROGEN PEROXIDE 3% 118 ML BOTTLE TP SCH ×2 (08:38→20:39)
[2022-09-20] MEDS: OMEGA-3 FATTY ACIDS/FISH OIL CAPSULE GT SCH (21:54)
[2022-09-20] MEDS: LATANOPROST OPHT DROP 2.5 ML BOTTLE EACHEYE SCH (21:54)
[2022-09-20] MEDS: NUTRISOURCE FIBER 4 GM PACKET GT SCH (21:55)
[2022-09-21] VITALS (11 sets, daily range): TEMP 96.2–98.4; O2SAT 96–99
[2022-09-21] MEDS: IPRATROPIUM BROMIDE 0.5 MG/2.5 ML NEBU NEB SCH ×4 (00:53→21:19)
[2022-09-21] MEDS: ALBUTEROL SULFATE 2.5 MG/3 ML NEBU NEB SCH ×4 (00:53→21:19)
[2022-09-21] MEDS: ACIDOPHILUS/BULGARICUS CHEW TAB GT SCH ×3 (06:30→21:47)
[2022-09-21] MEDS: OMEPRAZOLE 20 MG CAPSULE.DR GT SCH (06:30)
[2022-09-21] MEDS: VALPROIC ACID 250 MG/5 ML LIQUID UDC GT SCH ×3 (06:30→21:47)
[2022-09-21] MEDS: PHENOBARBITAL 32.4 MG TABLET GT SCH ×2 (08:32→21:47)
[2022-09-21] MEDS: BACLOFEN 20 MG TABLET GT SCH ×3 (08:32→21:46)
[2022-09-21] MEDS: POLYVINYL ALCOHOL OPHT DROPS 15 ML BOTTLE EACHEYE SCH ×4 (08:33→21:46)
[2022-09-21] MEDS: HYDROGEN PEROXIDE 3% 118 ML BOTTLE TP SCH ×2 (08:58→21:19)
[2022-09-21] MEDS: REMEDY ESSENTIAL ZINC PASTE 113 GM TP SCH ×2 (09:00→21:47)
[2022-09-21] MEDS: BENZOYL PEROXIDE 10% GEL 60 GM TUBE TP SCH ×2 (09:00→21:47)
[2022-09-21] MEDS: JEVITY 1.2 1000 ML LIQUID GT PRN (17:24)
[2022-09-21] MEDS: NUTRISOURCE FIBER 4 GM PACKET GT SCH (21:46)
[2022-09-21] MEDS: OMEGA-3 FATTY ACIDS/FISH OIL CAPSULE GT SCH (21:46)
[2022-09-21] MEDS: LATANOPROST OPHT DROP 2.5 ML BOTTLE EACHEYE SCH (21:46)
[2022-09-22] VITALS (11 sets, daily range): TEMP 97; O2SAT 96–99
[2022-09-22] MEDS: IPRATROPIUM BROMIDE 0.5 MG/2.5 ML NEBU NEB SCH ×4 (00:18→19:10)
[2022-09-22] MEDS: ALBUTEROL SULFATE 2.5 MG/3 ML NEBU NEB SCH ×4 (00:19→19:10)
[2022-09-22] MEDS: ACIDOPHILUS/BULGARICUS CHEW TAB GT SCH ×3 (05:20→22:05)
[2022-09-22] MEDS: VALPROIC ACID 250 MG/5 ML LIQUID UDC GT SCH ×3 (05:20→22:12)
[2022-09-22] MEDS: OMEPRAZOLE 20 MG CAPSULE.DR GT SCH (05:20)
[2022-09-22] MEDS: HYDROGEN PEROXIDE 3% 118 ML BOTTLE TP SCH ×2 (07:35→19:10)
[2022-09-22] MEDS: POLYVINYL ALCOHOL OPHT DROPS 15 ML BOTTLE EACHEYE SCH ×4 (08:22→21:00)
[2022-09-22] MEDS: BACLOFEN 20 MG TABLET GT SCH ×3 (08:22→22:08)
[2022-09-22] MEDS: BENZOYL PEROXIDE 10% GEL 60 GM TUBE TP SCH ×2 (08:23→21:00)
[2022-09-22] MEDS: PHENOBARBITAL 32.4 MG TABLET GT SCH ×2 (08:23→22:12)
[2022-09-22] MEDS: REMEDY ESSENTIAL ZINC PASTE 113 GM TP SCH ×2 (09:00→21:00)
[2022-09-22] MEDS: JEVITY 1.2 1000 ML LIQUID GT PRN (16:05)
[2022-09-22] MEDS: LATANOPROST OPHT DROP 2.5 ML BOTTLE EACHEYE SCH (21:00)
[2022-09-22] MEDS: NUTRISOURCE FIBER 4 GM PACKET GT SCH (21:00)
[2022-09-22] MEDS: OMEGA-3 FATTY ACIDS/FISH OIL CAPSULE GT SCH (21:00)
[2022-09-23] VITALS (10 sets, daily range): TEMP 97.2–97.4; O2SAT 97–99
[2022-09-23] MEDS: IPRATROPIUM BROMIDE 0.5 MG/2.5 ML NEBU NEB SCH ×4 (01:32→19:35)
[2022-09-23] MEDS: ALBUTEROL SULFATE 2.5 MG/3 ML NEBU NEB SCH ×4 (01:32→19:35)
[2022-09-23] MEDS: VALPROIC ACID 250 MG/5 ML LIQUID UDC GT SCH ×3 (06:53→22:00)
[2022-09-23] MEDS: OMEPRAZOLE 20 MG CAPSULE.DR GT SCH (06:53)
[2022-09-23] MEDS: ACIDOPHILUS/BULGARICUS CHEW TAB GT SCH ×3 (06:53→22:00)
[2022-09-23] MEDS: POLYVINYL ALCOHOL OPHT DROPS 15 ML BOTTLE EACHEYE SCH ×4 (08:31→21:00)
[2022-09-23] MEDS: REMEDY ESSENTIAL ZINC PASTE 113 GM TP SCH ×2 (08:35→21:00)
[2022-09-23] MEDS: BACLOFEN 20 MG TABLET GT SCH ×3 (08:35→23:13)
[2022-09-23] MEDS: PHENOBARBITAL 32.4 MG TABLET GT SCH ×2 (08:35→23:14)
[2022-09-23] MEDS: BENZOYL PEROXIDE 10% GEL 60 GM TUBE TP SCH ×2 (08:35→21:00)
[2022-09-23] MEDS: HYDROGEN PEROXIDE 3% 118 ML BOTTLE TP SCH ×2 (09:38→21:00)
[2022-09-23] MEDS: JEVITY 1.2 1000 ML LIQUID GT PRN (12:26)
[2022-09-23] MEDS: OMEGA-3 FATTY ACIDS/FISH OIL CAPSULE GT SCH (21:00)
[2022-09-23] MEDS: LATANOPROST OPHT DROP 2.5 ML BOTTLE EACHEYE SCH (21:00)
[2022-09-23] MEDS: NUTRISOURCE FIBER 4 GM PACKET GT SCH (21:00)
[2022-09-24] VITALS (10 sets, daily range): TEMP 97.3–98.2; O2SAT 97–99
[2022-09-24] MEDS: IPRATROPIUM BROMIDE 0.5 MG/2.5 ML NEBU NEB SCH ×4 (01:57→19:30)
[2022-09-24] MEDS: ALBUTEROL SULFATE 2.5 MG/3 ML NEBU NEB SCH ×4 (01:57→19:30)
[2022-09-24] MEDS: ACIDOPHILUS/BULGARICUS CHEW TAB GT SCH ×3 (06:36→21:34)
[2022-09-24] MEDS: VALPROIC ACID 250 MG/5 ML LIQUID UDC GT SCH ×3 (06:36→21:34)
[2022-09-24] MEDS: OMEPRAZOLE 20 MG CAPSULE.DR GT SCH (06:36)
[2022-09-24] MEDS: HYDROGEN PEROXIDE 3% 118 ML BOTTLE TP SCH ×2 (07:36→21:55)
[2022-09-24] MEDS: BENZOYL PEROXIDE 10% GEL 60 GM TUBE TP SCH ×2 (09:21→21:33)
[2022-09-24] MEDS: BACLOFEN 20 MG TABLET GT SCH ×3 (09:21→21:33)
[2022-09-24] MEDS: REMEDY ESSENTIAL ZINC PASTE 113 GM TP SCH ×2 (09:21→21:33)
[2022-09-24] MEDS: PHENOBARBITAL 32.4 MG TABLET GT SCH ×2 (09:21→21:33)
[2022-09-24] MEDS: POLYVINYL ALCOHOL OPHT DROPS 15 ML BOTTLE EACHEYE SCH ×4 (09:21→21:33)
[2022-09-24] MEDS: NUTRISOURCE FIBER 4 GM PACKET GT SCH (21:33)
[2022-09-24] MEDS: LATANOPROST OPHT DROP 2.5 ML BOTTLE EACHEYE SCH (21:33)
[2022-09-24] MEDS: OMEGA-3 FATTY ACIDS/FISH OIL CAPSULE GT SCH (21:33)
[2022-09-25] VITALS (10 sets, daily range): TEMP 97.1–97.3; O2SAT 97–99
[2022-09-25] MEDS: JEVITY 1.2 1000 ML LIQUID GT PRN ×2 (01:30→21:48)
[2022-09-25] MEDS: ALBUTEROL SULFATE 2.5 MG/3 ML NEBU NEB SCH ×4 (02:03→19:25)
[2022-09-25] MEDS: IPRATROPIUM BROMIDE 0.5 MG/2.5 ML NEBU NEB SCH ×4 (02:03→19:25)
[2022-09-25] MEDS: OMEPRAZOLE 20 MG CAPSULE.DR GT SCH (05:50)
[2022-09-25] MEDS: ACIDOPHILUS/BULGARICUS CHEW TAB GT SCH ×3 (05:50→21:48)
[2022-09-25] MEDS: VALPROIC ACID 250 MG/5 ML LIQUID UDC GT SCH ×3 (05:50→21:48)
[2022-09-25] MEDS: PHENOBARBITAL 32.4 MG TABLET GT SCH ×2 (09:00→21:48)
[2022-09-25] MEDS: POLYVINYL ALCOHOL OPHT DROPS 15 ML BOTTLE EACHEYE SCH ×4 (09:00→21:48)
[2022-09-25] MEDS: REMEDY ESSENTIAL ZINC PASTE 113 GM TP SCH ×2 (09:00→21:48)
[2022-09-25] MEDS: BACLOFEN 20 MG TABLET GT SCH ×3 (09:00→21:48)
[2022-09-25] MEDS: BENZOYL PEROXIDE 10% GEL 60 GM TUBE TP SCH ×2 (09:00→21:48)
[2022-09-25] MEDS: HYDROGEN PEROXIDE 3% 118 ML BOTTLE TP SCH ×2 (09:25→21:43)
[2022-09-25] MEDS: NUTRISOURCE FIBER 4 GM PACKET GT SCH (21:48)
[2022-09-25] MEDS: LATANOPROST OPHT DROP 2.5 ML BOTTLE EACHEYE SCH (21:48)
[2022-09-25] MEDS: OMEGA-3 FATTY ACIDS/FISH OIL CAPSULE GT SCH (21:48)
[2022-09-26] VITALS (10 sets, daily range): TEMP 97.3–97.4; O2SAT 97–99
[2022-09-26] MEDS: IPRATROPIUM BROMIDE 0.5 MG/2.5 ML NEBU NEB SCH ×4 (01:59→19:13)
[2022-09-26] MEDS: ALBUTEROL SULFATE 2.5 MG/3 ML NEBU NEB SCH ×4 (02:00→19:13)
[2022-09-26] MEDS: VALPROIC ACID 250 MG/5 ML LIQUID UDC GT SCH ×3 (05:58→21:48)
[2022-09-26] MEDS: OMEPRAZOLE 20 MG CAPSULE.DR GT SCH (05:58)
[2022-09-26] MEDS: ACIDOPHILUS/BULGARICUS CHEW TAB GT SCH ×3 (05:58→21:48)
[2022-09-26] MEDS: POLYVINYL ALCOHOL OPHT DROPS 15 ML BOTTLE EACHEYE SCH ×4 (08:15→21:47)
[2022-09-26] MEDS: BACLOFEN 20 MG TABLET GT SCH ×3 (08:16→21:47)
[2022-09-26] MEDS: BENZOYL PEROXIDE 10% GEL 60 GM TUBE TP SCH ×2 (08:16→21:48)
[2022-09-26] MEDS: PHENOBARBITAL 32.4 MG TABLET GT SCH ×2 (08:16→21:47)
[2022-09-26] MEDS: REMEDY ESSENTIAL ZINC PASTE 113 GM TP SCH ×2 (08:16→21:48)
[2022-09-26] MEDS: HYDROGEN PEROXIDE 3% 118 ML BOTTLE TP SCH ×2 (09:40→21:19)
[2022-09-26] MEDS: JEVITY 1.2 1000 ML LIQUID GT PRN (18:09)
[2022-09-26] MEDS: NUTRISOURCE FIBER 4 GM PACKET GT SCH (21:47)
[2022-09-26] MEDS: LATANOPROST OPHT DROP 2.5 ML BOTTLE EACHEYE SCH (21:47)
[2022-09-26] MEDS: OMEGA-3 FATTY ACIDS/FISH OIL CAPSULE GT SCH (21:47)
[2022-09-27] VITALS (10 sets, daily range): TEMP 97–97.2; O2SAT 97–99
[2022-09-27] MEDS: IPRATROPIUM BROMIDE 0.5 MG/2.5 ML NEBU NEB SCH ×4 (01:40→19:05)
[2022-09-27] MEDS: ALBUTEROL SULFATE 2.5 MG/3 ML NEBU NEB SCH ×4 (01:40→19:05)
[2022-09-27] MEDS: ACIDOPHILUS/BULGARICUS CHEW TAB GT SCH ×3 (05:43→22:01)
[2022-09-27] MEDS: OMEPRAZOLE 20 MG CAPSULE.DR GT SCH (05:43)
[2022-09-27] MEDS: VALPROIC ACID 250 MG/5 ML LIQUID UDC GT SCH ×3 (05:43→22:01)
[2022-09-27] MEDS: HYDROGEN PEROXIDE 3% 118 ML BOTTLE TP SCH ×2 (08:38→19:05)
[2022-09-27] MEDS: BACLOFEN 20 MG TABLET GT SCH ×3 (09:00→21:00)
[2022-09-27] MEDS: BENZOYL PEROXIDE 10% GEL 60 GM TUBE TP SCH ×2 (09:00→21:00)
[2022-09-27] MEDS: PHENOBARBITAL 32.4 MG TABLET GT SCH ×2 (09:00→21:00)
[2022-09-27] MEDS: REMEDY ESSENTIAL ZINC PASTE 113 GM TP SCH ×2 (09:00→21:00)
[2022-09-27] MEDS: POLYVINYL ALCOHOL OPHT DROPS 15 ML BOTTLE EACHEYE SCH ×4 (09:00→21:00)
[2022-09-27] MEDS: JEVITY 1.2 1000 ML LIQUID GT PRN (15:01)
[2022-09-27] MEDS: NUTRISOURCE FIBER 4 GM PACKET GT SCH (21:00)
[2022-09-27] MEDS: OMEGA-3 FATTY ACIDS/FISH OIL CAPSULE GT SCH (21:00)
[2022-09-27] MEDS: LATANOPROST OPHT DROP 2.5 ML BOTTLE EACHEYE SCH (21:00)
[2022-09-28] VITALS (10 sets, daily range): TEMP 97–97.4; O2SAT 97–99
[2022-09-28] MEDS: IPRATROPIUM BROMIDE 0.5 MG/2.5 ML NEBU NEB SCH ×4 (01:35→19:53)
[2022-09-28] MEDS: ALBUTEROL SULFATE 2.5 MG/3 ML NEBU NEB SCH ×4 (01:35→19:53)
[2022-09-28] MEDS: ACIDOPHILUS/BULGARICUS CHEW TAB GT SCH ×3 (05:31→21:27)
[2022-09-28] MEDS: VALPROIC ACID 250 MG/5 ML LIQUID UDC GT SCH ×3 (05:31→21:27)
[2022-09-28] MEDS: OMEPRAZOLE 20 MG CAPSULE.DR GT SCH (05:31)
[2022-09-28] MEDS: HYDROGEN PEROXIDE 3% 118 ML BOTTLE TP SCH ×2 (08:06→19:53)
[2022-09-28] MEDS: BACLOFEN 20 MG TABLET GT SCH ×3 (09:00→21:26)
[2022-09-28] MEDS: PHENOBARBITAL 32.4 MG TABLET GT SCH ×2 (09:00→21:26)
[2022-09-28] MEDS: REMEDY ESSENTIAL ZINC PASTE 113 GM TP SCH ×2 (09:00→21:26)
[2022-09-28] MEDS: BENZOYL PEROXIDE 10% GEL 60 GM TUBE TP SCH ×2 (09:00→21:26)
[2022-09-28] MEDS: POLYVINYL ALCOHOL OPHT DROPS 15 ML BOTTLE EACHEYE SCH ×4 (09:00→21:26)
[2022-09-28] MEDS: NUTRISOURCE FIBER 4 GM PACKET GT SCH (21:26)
[2022-09-28] MEDS: LATANOPROST OPHT DROP 2.5 ML BOTTLE EACHEYE SCH (21:26)
[2022-09-28] MEDS: OMEGA-3 FATTY ACIDS/FISH OIL CAPSULE GT SCH (21:26)
[2022-09-29] VITALS (10 sets, daily range): TEMP 97.4–98; O2SAT 97–98
[2022-09-29] MEDS: ALBUTEROL SULFATE 2.5 MG/3 ML NEBU NEB SCH ×4 (02:08→18:39)
[2022-09-29] MEDS: IPRATROPIUM BROMIDE 0.5 MG/2.5 ML NEBU NEB SCH ×4 (02:08→18:39)
[2022-09-29] MEDS: OMEPRAZOLE 20 MG CAPSULE.DR GT SCH (06:07)
[2022-09-29] MEDS: VALPROIC ACID 250 MG/5 ML LIQUID UDC GT SCH ×3 (06:07→22:23)
[2022-09-29] MEDS: ACIDOPHILUS/BULGARICUS CHEW TAB GT SCH ×3 (06:07→22:23)
[2022-09-29] MEDS: POLYVINYL ALCOHOL OPHT DROPS 15 ML BOTTLE EACHEYE SCH ×4 (08:45→20:10)
[2022-09-29] MEDS: BACLOFEN 20 MG TABLET GT SCH ×3 (08:49→20:18)
[2022-09-29] MEDS: PHENOBARBITAL 32.4 MG TABLET GT SCH ×2 (08:49→20:18)
[2022-09-29] MEDS: BENZOYL PEROXIDE 10% GEL 60 GM TUBE TP SCH ×2 (08:49→20:11)
[2022-09-29] MEDS: REMEDY ESSENTIAL ZINC PASTE 113 GM TP SCH ×2 (08:50→20:11)
[2022-09-29] MEDS: HYDROGEN PEROXIDE 3% 118 ML BOTTLE TP SCH ×2 (08:50→18:39)
[2022-09-29] MEDS: LATANOPROST OPHT DROP 2.5 ML BOTTLE EACHEYE SCH (20:10)
[2022-09-29] MEDS: NUTRISOURCE FIBER 4 GM PACKET GT SCH (20:11)
[2022-09-29] MEDS: OMEGA-3 FATTY ACIDS/FISH OIL CAPSULE GT SCH (20:13)
[2022-09-30] VITALS (11 sets, daily range): TEMP 97–97.6; O2SAT 97–98
[2022-09-30] MEDS: IPRATROPIUM BROMIDE 0.5 MG/2.5 ML NEBU NEB SCH ×4 (01:03→19:20)
[2022-09-30] MEDS: ALBUTEROL SULFATE 2.5 MG/3 ML NEBU NEB SCH ×4 (01:03→19:20)
[2022-09-30] MEDS: VALPROIC ACID 250 MG/5 ML LIQUID UDC GT SCH ×3 (05:04→22:09)
[2022-09-30] MEDS: OMEPRAZOLE 20 MG CAPSULE.DR GT SCH (05:04)
[2022-09-30] MEDS: ACIDOPHILUS/BULGARICUS CHEW TAB GT SCH ×3 (05:04→22:09)
[2022-09-30] MEDS: POLYVINYL ALCOHOL OPHT DROPS 15 ML BOTTLE EACHEYE SCH ×4 (08:36→21:00)
[2022-09-30] MEDS: BACLOFEN 20 MG TABLET GT SCH ×3 (08:39→21:00)
[2022-09-30] MEDS: PHENOBARBITAL 32.4 MG TABLET GT SCH ×2 (08:39→21:00)
[2022-09-30] MEDS: BENZOYL PEROXIDE 10% GEL 60 GM TUBE TP SCH ×2 (08:40→21:00)
[2022-09-30] MEDS: REMEDY ESSENTIAL ZINC PASTE 113 GM TP SCH ×2 (08:40→21:00)
[2022-09-30] MEDS: HYDROGEN PEROXIDE 3% 118 ML BOTTLE TP SCH ×2 (09:47→21:05)
[2022-09-30] MEDS: JEVITY 1.2 1000 ML LIQUID GT PRN (16:27)
[2022-09-30] MEDS: NUTRISOURCE FIBER 4 GM PACKET GT SCH (21:00)
[2022-09-30] MEDS: OMEGA-3 FATTY ACIDS/FISH OIL CAPSULE GT SCH (21:00)
[2022-09-30] MEDS: LATANOPROST OPHT DROP 2.5 ML BOTTLE EACHEYE SCH (21:00)
[2022-10-01] VITALS (13 sets, daily range): BP systolic 103; BP diastolic 61; TEMP 97–98.8; O2SAT 97–98
[2022-10-01] MEDS: ALBUTEROL SULFATE 2.5 MG/3 ML NEBU NEB SCH ×4 (01:00→19:16)
[2022-10-01] MEDS: IPRATROPIUM BROMIDE 0.5 MG/2.5 ML NEBU NEB SCH ×4 (01:00→19:16)
[2022-10-01] MEDS: VALPROIC ACID 250 MG/5 ML LIQUID UDC GT SCH ×3 (05:13→21:43)
[2022-10-01] MEDS: ACIDOPHILUS/BULGARICUS CHEW TAB GT SCH ×3 (05:13→21:43)
[2022-10-01] MEDS: OMEPRAZOLE 20 MG CAPSULE.DR GT SCH (05:13)
[2022-10-01] MEDS: REMEDY ESSENTIAL ZINC PASTE 113 GM TP SCH ×2 (08:35→21:43)
[2022-10-01] MEDS: BENZOYL PEROXIDE 10% GEL 60 GM TUBE TP SCH ×2 (08:35→21:43)
[2022-10-01] MEDS: BACLOFEN 20 MG TABLET GT SCH ×3 (08:35→21:42)
[2022-10-01] MEDS: PHENOBARBITAL 32.4 MG TABLET GT SCH ×2 (08:35→21:43)
[2022-10-01] MEDS: POLYVINYL ALCOHOL OPHT DROPS 15 ML BOTTLE EACHEYE SCH ×4 (08:35→21:42)
[2022-10-01] MEDS: HYDROGEN PEROXIDE 3% 118 ML BOTTLE TP SCH ×2 (09:42→23:12)
[2022-10-01] MEDS: JEVITY 1.2 1000 ML LIQUID GT PRN (13:06)
[2022-10-01] MEDS: LATANOPROST OPHT DROP 2.5 ML BOTTLE EACHEYE SCH (21:42)
[2022-10-01] MEDS: NUTRISOURCE FIBER 4 GM PACKET GT SCH (21:42)
[2022-10-01] MEDS: OMEGA-3 FATTY ACIDS/FISH OIL CAPSULE GT SCH (21:42)
[2022-10-02] VITALS (11 sets, daily range): BP systolic 106; BP diastolic 69; TEMP 97.4; O2SAT 97–99
[2022-10-02] MEDS: IPRATROPIUM BROMIDE 0.5 MG/2.5 ML NEBU NEB SCH ×4 (01:11→19:10)
[2022-10-02] MEDS: ALBUTEROL SULFATE 2.5 MG/3 ML NEBU NEB SCH ×4 (01:12→19:11)
[2022-10-02] MEDS: ACIDOPHILUS/BULGARICUS CHEW TAB GT SCH ×3 (05:22→21:03)
[2022-10-02] MEDS: VALPROIC ACID 250 MG/5 ML LIQUID UDC GT SCH ×3 (05:22→21:03)
[2022-10-02] MEDS: OMEPRAZOLE 20 MG CAPSULE.DR GT SCH (05:23)
[2022-10-02 06:42] LABS: BASOPHILS % (AUTO) 0.3 % (0.0-2.0); EOSINOPHILS # (AUTO) 0.2 K/uL (0.0-0.7); EOSINOPHILS % (AUTO) 3.6 % (0.0-7.0); HEMATOCRIT 38.5 % (36.7-47.1); LYMPHOCYTES # (AUTO) 1.3 K/uL (0.8-4.8); MEAN CORPUSCULAR HEMOGLOBIN 31.4 uug (23.8-33.4); MEAN CORPUSCULAR HGB CONC 34 g/dL (32.5-36.3); MEAN CORPUSCULAR VOLUME 93.1 fL (73.0-96.2); MONOCYTES # (AUTO) 0.5 K/uL (0.1-1.30); NEUTROPHILS # (AUTO) 2.8 K/uL (1.8-8.9); NEUTROPHILS % (AUTO) 58.1 % (38.5-71.5); PLATELET COUNT (AUTO) 151 K/uL (152-348); RED BLOOD CELL COUNT(AUTO) 4.14 MIL/uL (4.06-5.63); RED CELL DISTRIBUTION WIDTH 14.8 % (12.1-16.2); WHITE BLOOD COUNT (AUTO) 4.8 K/uL (3.6-10.2)
[2022-10-02 07:13] LABS: DIFFERENTIAL COMMENT 1
[2022-10-02 07:17] LABS: ALANINE AMINOTRANSFERASE 22 U/L (16-63); ALBUMIN 3.3 g/dL (3.4-5.0); ALKALINE PHOSPHATASE 153 U/L (50-136); ASPARTATE AMINOTRANSFERASE 9 U/L (15-37); BILIRUBIN,TOTAL 0.3 mg/dL (0.2-1.0); CALCIUM 8.8 mg/dL (8.5-10.1); CARBON DIOXIDE 31 mmol/L (21-32); CHLORIDE 102 mmol/L (98-107); CREATININE 0.3 mg/dL (0.6-1.3); GLUCOSE 90 mg/dL (74-106); MAGNESIUM 1.6 mg/dL (1.8-2.4); PHOSPHOROUS 3.2 mg/dL (2.5-4.9); POTASSIUM 4.2 mmol/L (3.5-5.1); SODIUM SERUM 140 mmol/L (136-145); TOTAL PROTEIN, SERUM 7.7 g/dL (6.4-8.2); UREA NITROGEN, BLOOD 14 mg/dL (7-18)
[2022-10-02] MEDS: POLYVINYL ALCOHOL OPHT DROPS 15 ML BOTTLE EACHEYE SCH ×4 (08:22→20:05)
[2022-10-02] MEDS: PHENOBARBITAL 32.4 MG TABLET GT SCH ×2 (08:22→20:06)
[2022-10-02] MEDS: BACLOFEN 20 MG TABLET GT SCH ×3 (08:22→20:06)
[2022-10-02] MEDS: REMEDY ESSENTIAL ZINC PASTE 113 GM TP SCH ×2 (08:23→20:06)
[2022-10-02] MEDS: BENZOYL PEROXIDE 10% GEL 60 GM TUBE TP SCH ×2 (08:23→20:06)
[2022-10-02] MEDS: HYDROGEN PEROXIDE 3% 118 ML BOTTLE TP SCH ×2 (09:20→21:15)
[2022-10-02] MEDS: JEVITY 1.2 1000 ML LIQUID GT PRN (09:39)
[2022-10-02] MEDS ORDERED: MAGNESIUM OXIDE 400 MG TABLET GT ONE (11:30)
[2022-10-02] MEDS: LATANOPROST OPHT DROP 2.5 ML BOTTLE EACHEYE SCH (20:05)
[2022-10-02] MEDS: OMEGA-3 FATTY ACIDS/FISH OIL CAPSULE GT SCH (20:05)
[2022-10-02] MEDS: NUTRISOURCE FIBER 4 GM PACKET GT SCH (20:06)
[2022-10-03] VITALS (10 sets, daily range): TEMP 97.6–97.7; O2SAT 97–99
[2022-10-03] MEDS: IPRATROPIUM BROMIDE 0.5 MG/2.5 ML NEBU NEB SCH ×4 (01:18→19:40)
[2022-10-03] MEDS: ALBUTEROL SULFATE 2.5 MG/3 ML NEBU NEB SCH ×4 (01:18→19:40)
[2022-10-03] MEDS: JEVITY 1.2 1000 ML LIQUID GT PRN (03:59)
[2022-10-03] MEDS: VALPROIC ACID 250 MG/5 ML LIQUID UDC GT SCH ×3 (05:13→21:39)
[2022-10-03] MEDS: ACIDOPHILUS/BULGARICUS CHEW TAB GT SCH ×3 (05:13→21:39)
[2022-10-03] MEDS: OMEPRAZOLE 20 MG CAPSULE.DR GT SCH (05:13)
[2022-10-03] MEDS: HYDROGEN PEROXIDE 3% 118 ML BOTTLE TP SCH ×2 (08:16→20:41)
[2022-10-03] MEDS: BENZOYL PEROXIDE 10% GEL 60 GM TUBE TP SCH ×2 (08:47→21:38)
[2022-10-03] MEDS: PHENOBARBITAL 32.4 MG TABLET GT SCH ×2 (08:47→21:38)
[2022-10-03] MEDS: REMEDY ESSENTIAL ZINC PASTE 113 GM TP SCH ×2 (08:47→21:39)
[2022-10-03] MEDS: POLYVINYL ALCOHOL OPHT DROPS 15 ML BOTTLE EACHEYE SCH ×4 (08:47→21:31)
[2022-10-03] MEDS: BACLOFEN 20 MG TABLET GT SCH ×3 (08:47→21:31)
[2022-10-03] MEDS: LATANOPROST OPHT DROP 2.5 ML BOTTLE EACHEYE SCH (21:31)
[2022-10-03] MEDS: OMEGA-3 FATTY ACIDS/FISH OIL CAPSULE GT SCH (21:31)
[2022-10-03] MEDS: NUTRISOURCE FIBER 4 GM PACKET GT SCH (21:38)
[2022-10-04] VITALS (10 sets, daily range): BP systolic 111; BP diastolic 57; TEMP 97.7–98.1; O2SAT 96–100
[2022-10-04] MEDS: JEVITY 1.2 1000 ML LIQUID GT PRN (00:35)
[2022-10-04] MEDS: IPRATROPIUM BROMIDE 0.5 MG/2.5 ML NEBU NEB SCH ×4 (01:37→19:40)
[2022-10-04] MEDS: ALBUTEROL SULFATE 2.5 MG/3 ML NEBU NEB SCH ×4 (01:37→19:40)
[2022-10-04] MEDS: VALPROIC ACID 250 MG/5 ML LIQUID UDC GT SCH ×3 (06:12→21:19)
[2022-10-04] MEDS: ACIDOPHILUS/BULGARICUS CHEW TAB GT SCH ×3 (06:12→21:19)
[2022-10-04] MEDS: OMEPRAZOLE 20 MG CAPSULE.DR GT SCH (06:12)
[2022-10-04] MEDS: POLYVINYL ALCOHOL OPHT DROPS 15 ML BOTTLE EACHEYE SCH ×4 (08:42→21:00)
[2022-10-04] MEDS: PHENOBARBITAL 32.4 MG TABLET GT SCH ×2 (08:42→21:19)
[2022-10-04] MEDS: BACLOFEN 20 MG TABLET GT SCH ×3 (08:42→21:19)
[2022-10-04] MEDS: HYDROGEN PEROXIDE 3% 118 ML BOTTLE TP SCH ×2 (09:16→20:44)
[2022-10-04] MEDS: REMEDY ESSENTIAL ZINC PASTE 113 GM TP SCH ×2 (09:48→21:19)
[2022-10-04] MEDS: BENZOYL PEROXIDE 10% GEL 60 GM TUBE TP SCH ×2 (09:48→21:19)
[2022-10-04] MEDS: NUTRISOURCE FIBER 4 GM PACKET GT SCH (21:19)
[2022-10-04] MEDS: OMEGA-3 FATTY ACIDS/FISH OIL CAPSULE GT SCH (21:19)
[2022-10-04] MEDS: LATANOPROST OPHT DROP 2.5 ML BOTTLE EACHEYE SCH (21:19)
[2022-10-04] MEDS: DOXYCYCLINE HYCLATE 100 MG TABLET GT SCH (21:19)
[2022-10-05] VITALS (11 sets, daily range): TEMP 97.2–98; O2SAT 97–99
[2022-10-05] MEDS: IPRATROPIUM BROMIDE 0.5 MG/2.5 ML NEBU NEB SCH ×4 (01:17→19:07)
[2022-10-05] MEDS: ALBUTEROL SULFATE 2.5 MG/3 ML NEBU NEB SCH ×4 (01:17→19:07)
[2022-10-05] MEDS: VALPROIC ACID 250 MG/5 ML LIQUID UDC GT SCH ×3 (05:59→21:44)
[2022-10-05] MEDS: ACIDOPHILUS/BULGARICUS CHEW TAB GT SCH ×3 (05:59→21:44)
[2022-10-05] MEDS: OMEPRAZOLE 20 MG CAPSULE.DR GT SCH (05:59)
[2022-10-05 06:45] LABS: BASOPHILS % (AUTO) 0.4 % (0.0-2.0); EOSINOPHILS # (AUTO) 0.2 K/uL (0.0-0.7); EOSINOPHILS % (AUTO) 2.3 % (0.0-7.0); HEMATOCRIT 40.4 % (36.7-47.1); HEMOGLOBIN 13.8 g/dL (12.5-16.3); LYMPHOCYTES # (AUTO) 1.2 K/uL (0.8-4.8); LYMPHOCYTES % (AUTO) 13.4 % (20.5-51.5); MEAN CORPUSCULAR HEMOGLOBIN 31.9 uug (23.8-33.4); MEAN CORPUSCULAR HGB CONC 34 g/dL (32.5-36.3); MEAN CORPUSCULAR VOLUME 93.5 fL (73.0-96.2); NEUTROPHILS # (AUTO) 6.5 K/uL (1.8-8.9); NEUTROPHILS % (AUTO) 72.9 % (38.5-71.5); PLATELET COUNT (AUTO) 157 K/uL (152-348); RED BLOOD CELL COUNT(AUTO) 4.32 MIL/uL (4.06-5.63); RED CELL DISTRIBUTION WIDTH 15.3 % (12.1-16.2); WHITE BLOOD COUNT (AUTO) 8.9 K/uL (3.6-10.2)
[2022-10-05] MEDS: HYDROGEN PEROXIDE 3% 118 ML BOTTLE TP SCH ×2 (07:15→22:07)
[2022-10-05 08:04] LABS: CALCIUM 9.1 mg/dL (8.5-10.1); CARBON DIOXIDE 29 mmol/L (21-32); CHLORIDE 101 mmol/L (98-107); CREATININE 0.2 mg/dL (0.6-1.3); GLUCOSE 101 mg/dL (74-106); MAGNESIUM 1.6 mg/dL (1.8-2.4); PHOSPHOROUS 3.1 mg/dL (2.5-4.9); POTASSIUM 4.5 mmol/L (3.5-5.1); SODIUM SERUM 138 mmol/L (136-145); UREA NITROGEN, BLOOD 12 mg/dL (7-18)
[2022-10-05 08:19] LABS: DIFFERENTIAL COMMENT 1
[2022-10-05] MEDS: POLYVINYL ALCOHOL OPHT DROPS 15 ML BOTTLE EACHEYE SCH ×4 (08:43→21:44)
[2022-10-05] MEDS: PHENOBARBITAL 32.4 MG TABLET GT SCH ×2 (08:44→21:44)
[2022-10-05] MEDS: BACLOFEN 20 MG TABLET GT SCH ×3 (08:44→21:44)
[2022-10-05] MEDS: REMEDY ESSENTIAL ZINC PASTE 113 GM TP SCH ×2 (08:47→21:44)
[2022-10-05] MEDS: BENZOYL PEROXIDE 10% GEL 60 GM TUBE TP SCH ×2 (08:47→21:44)
[2022-10-05] MEDS: DOXYCYCLINE HYCLATE 100 MG TABLET GT SCH ×2 (08:47→21:00)
[2022-10-05] MEDS ORDERED: MAGNESIUM OXIDE 400 MG TABLET GT ONE (13:00)
[2022-10-05] MEDS: JEVITY 1.2 1000 ML LIQUID GT PRN (18:33)
[2022-10-05] MEDS: OMEGA-3 FATTY ACIDS/FISH OIL CAPSULE GT SCH (21:44)
[2022-10-05] MEDS: NUTRISOURCE FIBER 4 GM PACKET GT SCH (21:44)
[2022-10-05] MEDS: LATANOPROST OPHT DROP 2.5 ML BOTTLE EACHEYE SCH (21:44)
[2022-10-05] MEDS ORDERED: DOXYCYCLINE HYCLATE 100 MG TABLET ONE (22:34)
[2022-10-06] VITALS (11 sets, daily range): TEMP 97.6–98; O2SAT 98–99
[2022-10-06] MEDS: ALBUTEROL SULFATE 2.5 MG/3 ML NEBU NEB SCH ×4 (00:12→19:17)
[2022-10-06] MEDS: IPRATROPIUM BROMIDE 0.5 MG/2.5 ML NEBU NEB SCH ×4 (00:12→19:17)
[2022-10-06] MEDS: ACIDOPHILUS/BULGARICUS CHEW TAB GT SCH ×3 (06:10→21:41)
[2022-10-06] MEDS: VALPROIC ACID 250 MG/5 ML LIQUID UDC GT SCH ×3 (06:10→21:41)
[2022-10-06] MEDS: OMEPRAZOLE 20 MG CAPSULE.DR GT SCH (06:10)
[2022-10-06] MEDS: HYDROGEN PEROXIDE 3% 118 ML BOTTLE TP SCH ×2 (09:10→19:17)
[2022-10-06] MEDS: REMEDY ESSENTIAL ZINC PASTE 113 GM TP SCH ×2 (09:22→21:41)
[2022-10-06] MEDS: BACLOFEN 20 MG TABLET GT SCH ×3 (09:22→21:41)
[2022-10-06] MEDS: POLYVINYL ALCOHOL OPHT DROPS 15 ML BOTTLE EACHEYE SCH ×4 (09:22→21:41)
[2022-10-06] MEDS: PHENOBARBITAL 32.4 MG TABLET GT SCH ×2 (09:22→21:41)
[2022-10-06] MEDS: BENZOYL PEROXIDE 10% GEL 60 GM TUBE TP SCH ×2 (09:22→21:41)
[2022-10-06] MEDS: DOXYCYCLINE HYCLATE 100 MG TABLET GT SCH ×2 (09:39→21:41)
[2022-10-06] MEDS ORDERED: DOXYCYCLINE HYCLATE 100 MG TABLET ONE (19:40)
[2022-10-06] MEDS: NUTRISOURCE FIBER 4 GM PACKET GT SCH (21:41)
[2022-10-06] MEDS: LATANOPROST OPHT DROP 2.5 ML BOTTLE EACHEYE SCH (21:41)
[2022-10-06] MEDS: OMEGA-3 FATTY ACIDS/FISH OIL CAPSULE GT SCH (21:41)
[2022-10-07] VITALS (10 sets, daily range): TEMP 98; O2SAT 97–99
[2022-10-07] MEDS: ALBUTEROL SULFATE 2.5 MG/3 ML NEBU NEB SCH ×4 (01:33→19:29)
[2022-10-07] MEDS: IPRATROPIUM BROMIDE 0.5 MG/2.5 ML NEBU NEB SCH ×4 (01:33→19:29)
[2022-10-07] MEDS: ACIDOPHILUS/BULGARICUS CHEW TAB GT SCH ×3 (06:06→22:00)
[2022-10-07] MEDS: OMEPRAZOLE 20 MG CAPSULE.DR GT SCH (06:06)
[2022-10-07] MEDS: VALPROIC ACID 250 MG/5 ML LIQUID UDC GT SCH ×3 (06:06→22:00)
[2022-10-07] MEDS: HYDROGEN PEROXIDE 3% 118 ML BOTTLE TP SCH ×2 (08:02→19:29)
[2022-10-07] MEDS: POLYVINYL ALCOHOL OPHT DROPS 15 ML BOTTLE EACHEYE SCH ×4 (08:41→21:00)
[2022-10-07] MEDS: PHENOBARBITAL 32.4 MG TABLET GT SCH ×2 (08:41→21:00)
[2022-10-07] MEDS: BACLOFEN 20 MG TABLET GT SCH ×3 (08:41→21:00)
[2022-10-07] MEDS: REMEDY ESSENTIAL ZINC PASTE 113 GM TP SCH ×2 (08:42→21:00)
[2022-10-07] MEDS: BENZOYL PEROXIDE 10% GEL 60 GM TUBE TP SCH ×2 (08:42→21:00)
[2022-10-07] MEDS: DOXYCYCLINE HYCLATE 100 MG TABLET GT SCH ×2 (08:57→21:00)
[2022-10-07] MEDS: OMEGA-3 FATTY ACIDS/FISH OIL CAPSULE GT SCH (21:00)
[2022-10-07] MEDS: LATANOPROST OPHT DROP 2.5 ML BOTTLE EACHEYE SCH (21:00)
[2022-10-07] MEDS: NUTRISOURCE FIBER 4 GM PACKET GT SCH (21:00)
[2022-10-08] VITALS (11 sets, daily range): TEMP 97.5–97.7; O2SAT 97–99
[2022-10-08] MEDS: ALBUTEROL SULFATE 2.5 MG/3 ML NEBU NEB SCH ×4 (01:08→19:24)
[2022-10-08] MEDS: IPRATROPIUM BROMIDE 0.5 MG/2.5 ML NEBU NEB SCH ×4 (01:08→19:24)
[2022-10-08] MEDS: ACIDOPHILUS/BULGARICUS CHEW TAB GT SCH ×3 (06:14→21:07)
[2022-10-08] MEDS: VALPROIC ACID 250 MG/5 ML LIQUID UDC GT SCH ×3 (06:14→21:07)
[2022-10-08] MEDS: OMEPRAZOLE 20 MG CAPSULE.DR GT SCH (06:15)
[2022-10-08] MEDS: HYDROGEN PEROXIDE 3% 118 ML BOTTLE TP SCH ×2 (09:17→19:24)
[2022-10-08] MEDS: BACLOFEN 20 MG TABLET GT SCH ×3 (09:55→20:12)
[2022-10-08] MEDS: POLYVINYL ALCOHOL OPHT DROPS 15 ML BOTTLE EACHEYE SCH ×4 (09:55→20:03)
[2022-10-08] MEDS: DOXYCYCLINE HYCLATE 100 MG TABLET GT SCH (09:55)
[2022-10-08] MEDS: PHENOBARBITAL 32.4 MG TABLET GT SCH ×2 (09:55→20:12)
[2022-10-08] MEDS: REMEDY ESSENTIAL ZINC PASTE 113 GM TP SCH ×2 (09:56→20:09)
[2022-10-08] MEDS: BENZOYL PEROXIDE 10% GEL 60 GM TUBE TP SCH ×2 (09:56→20:09)
[2022-10-08] MEDS: CEFEPIME HCL 2 G in IV DEXTROSE 5% 100 ML IV SCH (12:31)
[2022-10-08] MEDS: VANCOMYCIN IV 1,000 MG in IV DEXTROSE 5% 250 ML IV SCH ×2 (13:22→22:27)
[2022-10-08] MEDS: LATANOPROST OPHT DROP 2.5 ML BOTTLE EACHEYE SCH (20:06)
[2022-10-08] MEDS: OMEGA-3 FATTY ACIDS/FISH OIL CAPSULE GT SCH (20:06)
[2022-10-08] MEDS: NUTRISOURCE FIBER 4 GM PACKET GT SCH (20:09)
[2022-10-09] VITALS (10 sets, daily range): TEMP 97.2–98.4; O2SAT 98–99
[2022-10-09] MEDS: CEFEPIME HCL 2 G in IV DEXTROSE 5% 100 ML IV SCH ×2 (00:08→12:11)
[2022-10-09] MEDS: ALBUTEROL SULFATE 2.5 MG/3 ML NEBU NEB SCH ×4 (01:47→19:20)
[2022-10-09] MEDS: IPRATROPIUM BROMIDE 0.5 MG/2.5 ML NEBU NEB SCH ×4 (01:47→19:20)
[2022-10-09] MEDS: ACIDOPHILUS/BULGARICUS CHEW TAB GT SCH ×3 (05:57→22:27)
[2022-10-09] MEDS: OMEPRAZOLE 20 MG CAPSULE.DR GT SCH (05:57)
[2022-10-09] MEDS: VALPROIC ACID 250 MG/5 ML LIQUID UDC GT SCH ×3 (05:57→22:27)
[2022-10-09 07:54] LABS: BASOPHILS % (AUTO) 0.6 % (0.0-2.0); EOSINOPHILS # (AUTO) 0.2 K/uL (0.0-0.7); EOSINOPHILS % (AUTO) 3.5 % (0.0-7.0); HEMATOCRIT 40.2 % (36.7-47.1); HEMOGLOBIN 13.3 g/dL (12.5-16.3); LYMPHOCYTES # (AUTO) 0.7 K/uL (0.8-4.8); LYMPHOCYTES % (AUTO) 14.4 % (20.5-51.5); MEAN CORPUSCULAR HEMOGLOBIN 31.5 uug (23.8-33.4); MEAN CORPUSCULAR HGB CONC 33 g/dL (32.5-36.3); MEAN CORPUSCULAR VOLUME 95.1 fL (73.0-96.2); MONOCYTES # (AUTO) 0.6 K/uL (0.1-1.30); MONOCYTES % (AUTO) 12.6 % (0.0-11.0); NEUTROPHILS # (AUTO) 3.4 K/uL (1.8-8.9); NEUTROPHILS % (AUTO) 68.9 % (38.5-71.5); PLATELET COUNT (AUTO) 130 K/uL (152-348); RED BLOOD CELL COUNT(AUTO) 4.22 MIL/uL (4.06-5.63); RED CELL DISTRIBUTION WIDTH 15.2 % (12.1-16.2); WHITE BLOOD COUNT (AUTO) 4.9 K/uL (3.6-10.2)
[2022-10-09 08:08] LABS: DIFFERENTIAL COMMENT 1
[2022-10-09 08:30] LABS: ALANINE AMINOTRANSFERASE 21 U/L (16-63); ALBUMIN 3.3 g/dL (3.4-5.0); ALKALINE PHOSPHATASE 155 U/L (50-136); ASPARTATE AMINOTRANSFERASE 31 U/L (15-37); BILIRUBIN,TOTAL 0.4 mg/dL (0.2-1.0); CALCIUM 9.2 mg/dL (8.5-10.1); CARBON DIOXIDE 28 mmol/L (21-32); CHLORIDE 102 mmol/L (98-107); CREATININE 0.2 mg/dL (0.6-1.3); GLUCOSE 96 mg/dL (74-106); POTASSIUM 5.1 mmol/L (3.5-5.1); SODIUM SERUM 136 mmol/L (136-145); TOTAL PROTEIN, SERUM 7.8 g/dL (6.4-8.2); UREA NITROGEN, BLOOD 11 mg/dL (7-18)
[2022-10-09] MEDS: VANCOMYCIN IV 1,000 MG in IV DEXTROSE 5% 250 ML IV SCH ×2 (08:53→17:00)
[2022-10-09] MEDS: BENZOYL PEROXIDE 10% GEL 60 GM TUBE TP SCH ×2 (09:00→20:08)
[2022-10-09] MEDS: BACLOFEN 20 MG TABLET GT SCH ×3 (09:00→20:03)
[2022-10-09] MEDS: REMEDY ESSENTIAL ZINC PASTE 113 GM TP SCH ×2 (09:00→20:08)
[2022-10-09] MEDS: POLYVINYL ALCOHOL OPHT DROPS 15 ML BOTTLE EACHEYE SCH ×4 (09:00→20:03)
[2022-10-09] MEDS: PHENOBARBITAL 32.4 MG TABLET GT SCH ×2 (09:00→20:03)
[2022-10-09] MEDS: HYDROGEN PEROXIDE 3% 118 ML BOTTLE TP SCH ×2 (09:37→21:40)
[2022-10-09] MEDS: OMEGA-3 FATTY ACIDS/FISH OIL CAPSULE GT SCH (20:03)
[2022-10-09] MEDS: LATANOPROST OPHT DROP 2.5 ML BOTTLE EACHEYE SCH (20:03)
[2022-10-09] MEDS: NUTRISOURCE FIBER 4 GM PACKET GT SCH (20:03)
[2022-10-10] VITALS (11 sets, daily range): BP systolic 111; BP diastolic 50; TEMP 97.2–97.6; O2SAT 98–99
[2022-10-10] MEDS: ALBUTEROL SULFATE 2.5 MG/3 ML NEBU NEB SCH ×4 (01:30→19:13)
[2022-10-10] MEDS: IPRATROPIUM BROMIDE 0.5 MG/2.5 ML NEBU NEB SCH ×4 (01:30→19:13)
[2022-10-10] MEDS: VANCOMYCIN IV 1,000 MG in IV DEXTROSE 5% 250 ML IV SCH ×3 (02:53→20:10)
[2022-10-10] MEDS: VALPROIC ACID 250 MG/5 ML LIQUID UDC GT SCH ×3 (06:05→22:31)
[2022-10-10] MEDS: OMEPRAZOLE 20 MG CAPSULE.DR GT SCH (06:05)
[2022-10-10] MEDS: ACIDOPHILUS/BULGARICUS CHEW TAB GT SCH ×3 (06:05→22:31)
[2022-10-10 07:15] LABS: CALCIUM 9.1 mg/dL (8.5-10.1); CARBON DIOXIDE 32 mmol/L (21-32); CHLORIDE 101 mmol/L (98-107); CREATININE 0.2 mg/dL (0.6-1.3); GLUCOSE 118 mg/dL (74-106); POTASSIUM 4.1 mmol/L (3.5-5.1); SODIUM SERUM 137 mmol/L (136-145); UREA NITROGEN, BLOOD 10 mg/dL (7-18)
[2022-10-10] MEDS: REMEDY ESSENTIAL ZINC PASTE 113 GM TP SCH ×2 (08:21→20:18)
[2022-10-10] MEDS: BENZOYL PEROXIDE 10% GEL 60 GM TUBE TP SCH ×2 (08:21→20:18)
[2022-10-10] MEDS: BACLOFEN 20 MG TABLET GT SCH ×3 (08:21→20:17)
[2022-10-10] MEDS: POLYVINYL ALCOHOL OPHT DROPS 15 ML BOTTLE EACHEYE SCH ×4 (08:21→20:16)
[2022-10-10] MEDS: PHENOBARBITAL 32.4 MG TABLET GT SCH ×2 (08:21→20:18)
[2022-10-10] MEDS: HYDROGEN PEROXIDE 3% 118 ML BOTTLE TP SCH ×2 (09:02→19:13)
[2022-10-10] MEDS: JEVITY 1.2 1000 ML LIQUID GT PRN (11:59)
[2022-10-10] MEDS: CEFTRIAXONE 1 G in IV DEXTROSE 5% 50 ML IV SCH (14:00)
[2022-10-10] MEDS: LATANOPROST OPHT DROP 2.5 ML BOTTLE EACHEYE SCH (20:16)
[2022-10-10] MEDS: NUTRISOURCE FIBER 4 GM PACKET GT SCH (20:17)
[2022-10-10] MEDS: OMEGA-3 FATTY ACIDS/FISH OIL CAPSULE GT SCH (20:17)
[2022-10-11] VITALS (10 sets, daily range): TEMP 97.4–98.7; O2SAT 98–99
[2022-10-11] MEDS: ALBUTEROL SULFATE 2.5 MG/3 ML NEBU NEB SCH ×4 (01:28→19:08)
[2022-10-11] MEDS: IPRATROPIUM BROMIDE 0.5 MG/2.5 ML NEBU NEB SCH ×4 (01:28→19:08)
[2022-10-11 04:52] LABS: CALCIUM 9.2 mg/dL (8.5-10.1); CARBON DIOXIDE 32 mmol/L (21-32); CHLORIDE 102 mmol/L (98-107); CREATININE 0.3 mg/dL (0.6-1.3); GLUCOSE 116 mg/dL (74-106); POTASSIUM 4.1 mmol/L (3.5-5.1); SODIUM SERUM 139 mmol/L (136-145); UREA NITROGEN, BLOOD 9 mg/dL (7-18)
[2022-10-11] MEDS: VANCOMYCIN IV 1,000 MG in IV DEXTROSE 5% 250 ML IV SCH ×3 (05:47→22:18)
[2022-10-11] MEDS: OMEPRAZOLE 20 MG CAPSULE.DR GT SCH (06:06)
[2022-10-11] MEDS: ACIDOPHILUS/BULGARICUS CHEW TAB GT SCH ×3 (06:06→21:57)
[2022-10-11] MEDS: VALPROIC ACID 250 MG/5 ML LIQUID UDC GT SCH ×3 (06:06→21:57)
[2022-10-11] MEDS: BENZOYL PEROXIDE 10% GEL 60 GM TUBE TP SCH ×2 (09:19→20:04)
[2022-10-11] MEDS: PHENOBARBITAL 32.4 MG TABLET GT SCH ×2 (09:19→20:04)
[2022-10-11] MEDS: REMEDY ESSENTIAL ZINC PASTE 113 GM TP SCH ×2 (09:19→20:04)
[2022-10-11] MEDS: BACLOFEN 20 MG TABLET GT SCH ×3 (09:19→20:04)
[2022-10-11] MEDS: POLYVINYL ALCOHOL OPHT DROPS 15 ML BOTTLE EACHEYE SCH ×4 (09:19→20:03)
[2022-10-11] MEDS: HYDROGEN PEROXIDE 3% 118 ML BOTTLE TP SCH ×2 (09:40→21:05)
[2022-10-11] MEDS: JEVITY 1.2 1000 ML LIQUID GT PRN (14:38)
[2022-10-11] MEDS: CEFTRIAXONE 1 G in IV DEXTROSE 5% 50 ML IV SCH (15:30)
[2022-10-11] MEDS: LATANOPROST OPHT DROP 2.5 ML BOTTLE EACHEYE SCH (20:03)
[2022-10-11] MEDS: OMEGA-3 FATTY ACIDS/FISH OIL CAPSULE GT SCH (20:03)
[2022-10-11] MEDS: NUTRISOURCE FIBER 4 GM PACKET GT SCH (20:04)
[2022-10-12] VITALS (11 sets, daily range): TEMP 97.2–98.3; O2SAT 98–99
[2022-10-12] MEDS: ALBUTEROL SULFATE 2.5 MG/3 ML NEBU NEB SCH ×4 (01:17→19:20)
[2022-10-12] MEDS: IPRATROPIUM BROMIDE 0.5 MG/2.5 ML NEBU NEB SCH ×4 (01:17→19:20)
[2022-10-12] MEDS: ACIDOPHILUS/BULGARICUS CHEW TAB GT SCH ×3 (05:44→21:13)
[2022-10-12] MEDS: VALPROIC ACID 250 MG/5 ML LIQUID UDC GT SCH ×3 (05:44→21:13)
[2022-10-12] MEDS: OMEPRAZOLE 20 MG CAPSULE.DR GT SCH (05:44)
[2022-10-12] MEDS: VANCOMYCIN IV 1,000 MG in IV DEXTROSE 5% 250 ML IV SCH ×2 (08:00→17:53)
[2022-10-12] MEDS: HYDROGEN PEROXIDE 3% 118 ML BOTTLE TP SCH ×2 (08:27→21:58)
[2022-10-12] MEDS: POLYVINYL ALCOHOL OPHT DROPS 15 ML BOTTLE EACHEYE SCH ×4 (09:48→20:05)
[2022-10-12] MEDS: BACLOFEN 20 MG TABLET GT SCH ×3 (09:50→20:09)
[2022-10-12] MEDS: REMEDY ESSENTIAL ZINC PASTE 113 GM TP SCH ×2 (09:50→20:18)
[2022-10-12] MEDS: BENZOYL PEROXIDE 10% GEL 60 GM TUBE TP SCH ×2 (09:50→20:17)
[2022-10-12] MEDS: PHENOBARBITAL 32.4 MG TABLET GT SCH ×2 (09:50→20:17)
[2022-10-12] MEDS: JEVITY 1.2 1000 ML LIQUID GT PRN (13:55)
[2022-10-12] MEDS: CEFTRIAXONE 1 G in IV DEXTROSE 5% 50 ML IV SCH (14:46)
[2022-10-12] MEDS: OMEGA-3 FATTY ACIDS/FISH OIL CAPSULE GT SCH (20:06)
[2022-10-12] MEDS: LATANOPROST OPHT DROP 2.5 ML BOTTLE EACHEYE SCH (20:06)
[2022-10-12] MEDS: NUTRISOURCE FIBER 4 GM PACKET GT SCH (20:09)
[2022-10-13] VITALS (11 sets, daily range): TEMP 97–97.2; O2SAT 95–99
[2022-10-13] MEDS: VANCOMYCIN IV 1,000 MG in IV DEXTROSE 5% 250 ML IV SCH ×3 (01:36→20:00)
[2022-10-13] MEDS: IPRATROPIUM BROMIDE 0.5 MG/2.5 ML NEBU NEB SCH ×4 (01:42→20:34)
[2022-10-13] MEDS: ALBUTEROL SULFATE 2.5 MG/3 ML NEBU NEB SCH ×4 (01:42→20:39)
[2022-10-13] MEDS: OMEPRAZOLE 20 MG CAPSULE.DR GT SCH (05:42)
[2022-10-13] MEDS: ACIDOPHILUS/BULGARICUS CHEW TAB GT SCH ×3 (05:42→22:02)
[2022-10-13] MEDS: VALPROIC ACID 250 MG/5 ML LIQUID UDC GT SCH ×3 (05:42→22:02)
[2022-10-13] MEDS: POLYVINYL ALCOHOL OPHT DROPS 15 ML BOTTLE EACHEYE SCH ×4 (09:10→22:00)
[2022-10-13] MEDS: REMEDY ESSENTIAL ZINC PASTE 113 GM TP SCH ×2 (09:11→21:00)
[2022-10-13] MEDS: BENZOYL PEROXIDE 10% GEL 60 GM TUBE TP SCH ×2 (09:11→21:00)
[2022-10-13] MEDS: HYDROGEN PEROXIDE 3% 118 ML BOTTLE TP SCH ×2 (09:11→23:06)
[2022-10-13] MEDS: BACLOFEN 20 MG TABLET GT SCH ×3 (09:12→21:00)
[2022-10-13] MEDS: PHENOBARBITAL 32.4 MG TABLET GT SCH ×2 (09:13→21:00)
[2022-10-13] MEDS: JEVITY 1.2 1000 ML LIQUID GT PRN (11:55)
[2022-10-13] MEDS: CEFTRIAXONE 1 G in IV DEXTROSE 5% 50 ML IV SCH (13:14)
[2022-10-13] MEDS: LATANOPROST OPHT DROP 2.5 ML BOTTLE EACHEYE SCH (21:00)
[2022-10-13] MEDS: OMEGA-3 FATTY ACIDS/FISH OIL CAPSULE GT SCH (21:00)
[2022-10-13] MEDS: NUTRISOURCE FIBER 4 GM PACKET GT SCH (21:00)
[2022-10-14] VITALS (12 sets, daily range): TEMP 97.8–98.1; O2SAT 95–98
[2022-10-14] MEDS: ALBUTEROL SULFATE 2.5 MG/3 ML NEBU NEB SCH ×4 (01:08→21:25)
[2022-10-14] MEDS: IPRATROPIUM BROMIDE 0.5 MG/2.5 ML NEBU NEB SCH ×4 (01:08→21:24)
[2022-10-14 04:55] LABS: CALCIUM 9.4 mg/dL (8.5-10.1); CARBON DIOXIDE 30 mmol/L (21-32); CHLORIDE 101 mmol/L (98-107); CREATININE 0.3 mg/dL (0.6-1.3); GLUCOSE 106 mg/dL (74-106); POTASSIUM 4.3 mmol/L (3.5-5.1); SODIUM SERUM 137 mmol/L (136-145); UREA NITROGEN, BLOOD 10 mg/dL (7-18)
[2022-10-14] MEDS: VANCOMYCIN IV 1,000 MG in IV DEXTROSE 5% 250 ML IV SCH ×3 (05:00→22:54)
[2022-10-14] MEDS: ACIDOPHILUS/BULGARICUS CHEW TAB GT SCH ×3 (06:21→21:57)
[2022-10-14] MEDS: OMEPRAZOLE 20 MG CAPSULE.DR GT SCH (06:21)
[2022-10-14] MEDS: VALPROIC ACID 250 MG/5 ML LIQUID UDC GT SCH ×3 (06:21→21:58)
[2022-10-14] MEDS: POLYVINYL ALCOHOL OPHT DROPS 15 ML BOTTLE EACHEYE SCH ×4 (08:39→21:53)
[2022-10-14] MEDS: BACLOFEN 20 MG TABLET GT SCH ×3 (08:41→21:58)
[2022-10-14] MEDS: BENZOYL PEROXIDE 10% GEL 60 GM TUBE TP SCH ×2 (08:41→21:58)
[2022-10-14] MEDS: PHENOBARBITAL 32.4 MG TABLET GT SCH ×2 (08:41→21:58)
[2022-10-14] MEDS: REMEDY ESSENTIAL ZINC PASTE 113 GM TP SCH ×2 (08:41→21:55)
[2022-10-14] MEDS: HYDROGEN PEROXIDE 3% 118 ML BOTTLE TP SCH ×2 (08:51→21:25)
[2022-10-14] MEDS: CEFTRIAXONE 1 G in IV DEXTROSE 5% 50 ML IV SCH (14:48)
[2022-10-14] MEDS: OMEGA-3 FATTY ACIDS/FISH OIL CAPSULE GT SCH (21:54)
[2022-10-14] MEDS: NUTRISOURCE FIBER 4 GM PACKET GT SCH (21:54)
[2022-10-14] MEDS: LATANOPROST OPHT DROP 2.5 ML BOTTLE EACHEYE SCH (21:54)
[2022-10-15] VITALS (12 sets, daily range): BP systolic 99; BP diastolic 68; TEMP 97.7–98.6; O2SAT 96–99
[2022-10-15] MEDS: ALBUTEROL SULFATE 2.5 MG/3 ML NEBU NEB SCH ×4 (00:18→19:22)
[2022-10-15] MEDS: IPRATROPIUM BROMIDE 0.5 MG/2.5 ML NEBU NEB SCH ×4 (00:18→19:22)
[2022-10-15] MEDS: ACIDOPHILUS/BULGARICUS CHEW TAB GT SCH ×3 (05:59→22:20)
[2022-10-15] MEDS: OMEPRAZOLE 20 MG CAPSULE.DR GT SCH (05:59)
[2022-10-15] MEDS: VALPROIC ACID 250 MG/5 ML LIQUID UDC GT SCH ×3 (05:59→22:20)
[2022-10-15] MEDS: VANCOMYCIN IV 1,000 MG in IV DEXTROSE 5% 250 ML IV SCH ×2 (08:00→17:48)
[2022-10-15] MEDS: PHENOBARBITAL 32.4 MG TABLET GT SCH ×2 (08:57→21:45)
[2022-10-15] MEDS: BACLOFEN 20 MG TABLET GT SCH ×3 (08:57→21:45)
[2022-10-15] MEDS: REMEDY ESSENTIAL ZINC PASTE 113 GM TP SCH ×2 (08:57→21:45)
[2022-10-15] MEDS: POLYVINYL ALCOHOL OPHT DROPS 15 ML BOTTLE EACHEYE SCH ×4 (08:57→21:22)
[2022-10-15] MEDS: BENZOYL PEROXIDE 10% GEL 60 GM TUBE TP SCH ×2 (08:57→21:45)
[2022-10-15] MEDS: HYDROGEN PEROXIDE 3% 118 ML BOTTLE TP SCH ×2 (09:51→21:14)
[2022-10-15] MEDS ORDERED: CEFTRIAXONE 2 G in IV DEXTROSE 5% 50 ML IV SCH (14:00)
[2022-10-15] MEDS: CEFTRIAXONE 2 G in IV DEXTROSE 5% 100 ML IV SCH (14:25)
[2022-10-15] MEDS: LATANOPROST OPHT DROP 2.5 ML BOTTLE EACHEYE SCH (21:22)
[2022-10-15] MEDS: OMEGA-3 FATTY ACIDS/FISH OIL CAPSULE GT SCH (21:22)
[2022-10-15] MEDS: NUTRISOURCE FIBER 4 GM PACKET GT SCH (21:45)
[2022-10-16] VITALS (11 sets, daily range): TEMP 97.7–98.7; O2SAT 96–99
[2022-10-16] MEDS: ALBUTEROL SULFATE 2.5 MG/3 ML NEBU NEB SCH ×4 (00:50→19:22)
[2022-10-16] MEDS: IPRATROPIUM BROMIDE 0.5 MG/2.5 ML NEBU NEB SCH ×4 (00:50→19:22)
[2022-10-16] MEDS: VANCOMYCIN IV 1,000 MG in IV DEXTROSE 5% 250 ML IV SCH ×3 (02:02→20:00)
[2022-10-16] MEDS: OMEPRAZOLE 20 MG CAPSULE.DR GT SCH (06:35)
[2022-10-16] MEDS: ACIDOPHILUS/BULGARICUS CHEW TAB GT SCH ×3 (06:35→21:16)
[2022-10-16] MEDS: VALPROIC ACID 250 MG/5 ML LIQUID UDC GT SCH ×3 (06:36→21:16)
[2022-10-16] MEDS: BACLOFEN 20 MG TABLET GT SCH ×3 (08:22→21:16)
[2022-10-16] MEDS: BENZOYL PEROXIDE 10% GEL 60 GM TUBE TP SCH ×2 (08:22→21:16)
[2022-10-16] MEDS: REMEDY ESSENTIAL ZINC PASTE 113 GM TP SCH ×2 (08:22→21:16)
[2022-10-16] MEDS: POLYVINYL ALCOHOL OPHT DROPS 15 ML BOTTLE EACHEYE SCH ×4 (08:22→21:16)
[2022-10-16] MEDS: PHENOBARBITAL 32.4 MG TABLET GT SCH ×2 (08:22→21:16)
[2022-10-16] MEDS: HYDROGEN PEROXIDE 3% 118 ML BOTTLE TP SCH ×2 (09:07→21:28)
[2022-10-16] MEDS: CEFTRIAXONE 2 G in IV DEXTROSE 5% 100 ML IV SCH (13:44)
[2022-10-16] MEDS: JEVITY 1.2 1000 ML LIQUID GT PRN (21:16)
[2022-10-16] MEDS: OMEGA-3 FATTY ACIDS/FISH OIL CAPSULE GT SCH (21:16)
[2022-10-16] MEDS: NUTRISOURCE FIBER 4 GM PACKET GT SCH (21:16)
[2022-10-16] MEDS: LATANOPROST OPHT DROP 2.5 ML BOTTLE EACHEYE SCH (21:16)
[2022-10-17] VITALS (10 sets, daily range): TEMP 97.5–97.8; O2SAT 96–99
[2022-10-17] MEDS: ALBUTEROL SULFATE 2.5 MG/3 ML NEBU NEB SCH ×4 (01:53→19:12)
[2022-10-17] MEDS: IPRATROPIUM BROMIDE 0.5 MG/2.5 ML NEBU NEB SCH ×4 (01:53→19:12)
[2022-10-17] MEDS: VANCOMYCIN IV 1,000 MG in IV DEXTROSE 5% 250 ML IV SCH ×3 (05:30→23:00)
[2022-10-17] MEDS: VALPROIC ACID 250 MG/5 ML LIQUID UDC GT SCH ×3 (05:35→21:40)
[2022-10-17] MEDS: ACIDOPHILUS/BULGARICUS CHEW TAB GT SCH ×3 (05:35→21:40)
[2022-10-17] MEDS: OMEPRAZOLE 20 MG CAPSULE.DR GT SCH (05:35)
[2022-10-17] MEDS: HYDROGEN PEROXIDE 3% 118 ML BOTTLE TP SCH ×2 (07:35→19:12)
[2022-10-17] MEDS: BACLOFEN 20 MG TABLET GT SCH ×3 (08:24→21:40)
[2022-10-17] MEDS: POLYVINYL ALCOHOL OPHT DROPS 15 ML BOTTLE EACHEYE SCH ×4 (08:24→21:40)
[2022-10-17] MEDS: PHENOBARBITAL 32.4 MG TABLET GT SCH ×2 (08:24→21:40)
[2022-10-17] MEDS: REMEDY ESSENTIAL ZINC PASTE 113 GM TP SCH ×2 (08:24→21:40)
[2022-10-17] MEDS: BENZOYL PEROXIDE 10% GEL 60 GM TUBE TP SCH ×2 (08:24→21:40)
[2022-10-17] MEDS: JEVITY 1.2 1000 ML LIQUID GT PRN (16:36)
[2022-10-17] MEDS: CEFTRIAXONE 2 G in IV DEXTROSE 5% 100 ML IV SCH (17:30)
[2022-10-17] MEDS: NUTRISOURCE FIBER 4 GM PACKET GT SCH (21:40)
[2022-10-17] MEDS: OMEGA-3 FATTY ACIDS/FISH OIL CAPSULE GT SCH (21:40)
[2022-10-17] MEDS: LATANOPROST OPHT DROP 2.5 ML BOTTLE EACHEYE SCH (21:40)
[2022-10-18] VITALS (10 sets, daily range): TEMP 98.6–98.7; O2SAT 96–99
[2022-10-18] MEDS: ALBUTEROL SULFATE 2.5 MG/3 ML NEBU NEB SCH ×4 (01:07→19:20)
[2022-10-18] MEDS: IPRATROPIUM BROMIDE 0.5 MG/2.5 ML NEBU NEB SCH ×4 (01:07→19:20)
[2022-10-18] MEDS: JEVITY 1.2 1000 ML LIQUID GT PRN ×2 (06:13→13:25)
[2022-10-18] MEDS: OMEPRAZOLE 20 MG CAPSULE.DR GT SCH (06:13)
[2022-10-18] MEDS: ACIDOPHILUS/BULGARICUS CHEW TAB GT SCH ×3 (06:13→22:59)
[2022-10-18] MEDS: VALPROIC ACID 250 MG/5 ML LIQUID UDC GT SCH ×3 (06:13→22:58)
[2022-10-18] MEDS: VANCOMYCIN IV 1,000 MG in IV DEXTROSE 5% 250 ML IV SCH ×2 (08:00→17:52)
[2022-10-18] MEDS: BACLOFEN 20 MG TABLET GT SCH ×3 (08:18→21:00)
[2022-10-18] MEDS: PHENOBARBITAL 32.4 MG TABLET GT SCH ×2 (08:18→22:45)
[2022-10-18] MEDS: REMEDY ESSENTIAL ZINC PASTE 113 GM TP SCH ×2 (08:19→21:00)
[2022-10-18] MEDS: POLYVINYL ALCOHOL OPHT DROPS 15 ML BOTTLE EACHEYE SCH ×4 (08:19→21:00)
[2022-10-18] MEDS: HYDROGEN PEROXIDE 3% 118 ML BOTTLE TP SCH ×2 (08:45→20:58)
[2022-10-18] MEDS: BENZOYL PEROXIDE 10% GEL 60 GM TUBE TP SCH ×2 (09:00→21:00)
[2022-10-18] MEDS: CEFTRIAXONE 2 G in IV DEXTROSE 5% 100 ML IV SCH (14:00)
[2022-10-18] MEDS: LATANOPROST OPHT DROP 2.5 ML BOTTLE EACHEYE SCH (21:00)
[2022-10-18] MEDS: NUTRISOURCE FIBER 4 GM PACKET GT SCH (21:00)
[2022-10-18] MEDS: OMEGA-3 FATTY ACIDS/FISH OIL CAPSULE GT SCH (21:00)
[2022-10-19] VITALS (9 sets, daily range): TEMP 98; O2SAT 96–99
[2022-10-19] MEDS: IPRATROPIUM BROMIDE 0.5 MG/2.5 ML NEBU NEB SCH ×4 (00:50→19:57)
[2022-10-19] MEDS: ALBUTEROL SULFATE 2.5 MG/3 ML NEBU NEB SCH ×4 (00:50→19:57)
[2022-10-19] MEDS: VANCOMYCIN IV 1,000 MG in IV DEXTROSE 5% 250 ML IV SCH ×3 (02:22→19:29)
[2022-10-19] MEDS: ACIDOPHILUS/BULGARICUS CHEW TAB GT SCH ×3 (06:44→22:13)
[2022-10-19] MEDS: OMEPRAZOLE 20 MG CAPSULE.DR GT SCH (06:44)
[2022-10-19] MEDS: VALPROIC ACID 250 MG/5 ML LIQUID UDC GT SCH ×3 (06:44→22:13)
[2022-10-19] MEDS: HYDROGEN PEROXIDE 3% 118 ML BOTTLE TP SCH ×2 (07:24→19:57)
[2022-10-19] MEDS: PHENOBARBITAL 32.4 MG TABLET GT SCH ×2 (09:10→21:00)
[2022-10-19] MEDS: POLYVINYL ALCOHOL OPHT DROPS 15 ML BOTTLE EACHEYE SCH ×4 (09:10→21:00)
[2022-10-19] MEDS: BACLOFEN 20 MG TABLET GT SCH ×3 (09:10→21:00)
[2022-10-19] MEDS: REMEDY ESSENTIAL ZINC PASTE 113 GM TP SCH ×2 (09:11→21:00)
[2022-10-19] MEDS: BENZOYL PEROXIDE 10% GEL 60 GM TUBE TP SCH ×2 (09:11→21:00)
[2022-10-19] MEDS: CEFTRIAXONE 2 G in IV DEXTROSE 5% 100 ML IV SCH (13:15)
[2022-10-19] MEDS: NUTRISOURCE FIBER 4 GM PACKET GT SCH (21:00)
[2022-10-19] MEDS: LATANOPROST OPHT DROP 2.5 ML BOTTLE EACHEYE SCH (21:00)
[2022-10-19] MEDS: OMEGA-3 FATTY ACIDS/FISH OIL CAPSULE GT SCH (21:00)
[2022-10-20] VITALS (10 sets, daily range): TEMP 97.6–97.9; O2SAT 97–99
[2022-10-20] MEDS: ALBUTEROL SULFATE 2.5 MG/3 ML NEBU NEB SCH ×4 (01:38→19:03)
[2022-10-20] MEDS: IPRATROPIUM BROMIDE 0.5 MG/2.5 ML NEBU NEB SCH ×4 (01:38→19:03)
[2022-10-20] MEDS: JEVITY 1.2 1000 ML LIQUID GT PRN ×2 (02:01→18:53)
[2022-10-20] MEDS: VANCOMYCIN IV 1,000 MG in IV DEXTROSE 5% 250 ML IV SCH ×3 (04:37→23:00)
[2022-10-20] MEDS: VALPROIC ACID 250 MG/5 ML LIQUID UDC GT SCH ×3 (05:19→21:25)
[2022-10-20] MEDS: ACIDOPHILUS/BULGARICUS CHEW TAB GT SCH ×3 (05:19→21:25)
[2022-10-20] MEDS: OMEPRAZOLE 20 MG CAPSULE.DR GT SCH (05:19)
[2022-10-20] MEDS: HYDROGEN PEROXIDE 3% 118 ML BOTTLE TP SCH ×2 (08:16→19:03)
[2022-10-20] MEDS: POLYVINYL ALCOHOL OPHT DROPS 15 ML BOTTLE EACHEYE SCH ×4 (08:53→21:25)
[2022-10-20] MEDS: BACLOFEN 20 MG TABLET GT SCH ×3 (08:55→21:25)
[2022-10-20] MEDS: REMEDY ESSENTIAL ZINC PASTE 113 GM TP SCH ×2 (08:55→21:25)
[2022-10-20] MEDS: BENZOYL PEROXIDE 10% GEL 60 GM TUBE TP SCH ×2 (08:55→21:25)
[2022-10-20] MEDS: PHENOBARBITAL 32.4 MG TABLET GT SCH ×2 (08:55→21:25)
[2022-10-20] MEDS: CEFTRIAXONE 2 G in IV DEXTROSE 5% 100 ML IV SCH (13:02)
[2022-10-20] MEDS: OMEGA-3 FATTY ACIDS/FISH OIL CAPSULE GT SCH (21:25)
[2022-10-20] MEDS: NUTRISOURCE FIBER 4 GM PACKET GT SCH (21:25)
[2022-10-20] MEDS: LATANOPROST OPHT DROP 2.5 ML BOTTLE EACHEYE SCH (21:25)
[2022-10-21] VITALS (10 sets, daily range): TEMP 97.5–98.6; O2SAT 97–99
[2022-10-21] MEDS: IPRATROPIUM BROMIDE 0.5 MG/2.5 ML NEBU NEB SCH ×4 (01:03→19:11)
[2022-10-21] MEDS: ALBUTEROL SULFATE 2.5 MG/3 ML NEBU NEB SCH ×4 (01:03→19:11)
[2022-10-21] MEDS: OMEPRAZOLE 20 MG CAPSULE.DR GT SCH (06:03)
[2022-10-21] MEDS: VALPROIC ACID 250 MG/5 ML LIQUID UDC GT SCH ×3 (06:03→21:27)
[2022-10-21] MEDS: ACIDOPHILUS/BULGARICUS CHEW TAB GT SCH ×3 (06:03→21:27)
[2022-10-21] MEDS: VANCOMYCIN IV 1,000 MG in IV DEXTROSE 5% 250 ML IV SCH ×2 (08:00→17:00)
[2022-10-21] MEDS: BACLOFEN 20 MG TABLET GT SCH ×3 (09:27→21:26)
[2022-10-21] MEDS: POLYVINYL ALCOHOL OPHT DROPS 15 ML BOTTLE EACHEYE SCH ×4 (09:27→21:26)
[2022-10-21] MEDS: BENZOYL PEROXIDE 10% GEL 60 GM TUBE TP SCH ×2 (09:28→21:27)
[2022-10-21] MEDS: PHENOBARBITAL 32.4 MG TABLET GT SCH ×2 (09:28→21:26)
[2022-10-21] MEDS: REMEDY ESSENTIAL ZINC PASTE 113 GM TP SCH ×2 (09:28→21:27)
[2022-10-21] MEDS: HYDROGEN PEROXIDE 3% 118 ML BOTTLE TP SCH ×2 (09:30→19:11)
[2022-10-21] MEDS: JEVITY 1.2 1000 ML LIQUID GT PRN (12:47)
[2022-10-21] MEDS: CEFTRIAXONE 2 G in IV DEXTROSE 5% 100 ML IV SCH (13:51)
[2022-10-21] MEDS: LATANOPROST OPHT DROP 2.5 ML BOTTLE EACHEYE SCH (21:26)
[2022-10-21] MEDS: NUTRISOURCE FIBER 4 GM PACKET GT SCH (21:26)
[2022-10-21] MEDS: OMEGA-3 FATTY ACIDS/FISH OIL CAPSULE GT SCH (21:26)
[2022-10-22] VITALS (11 sets, daily range): BP systolic 113; BP diastolic 62; TEMP 97.3–99; O2SAT 97–99
[2022-10-22] MEDS: ALBUTEROL SULFATE 2.5 MG/3 ML NEBU NEB SCH ×4 (01:15→19:50)
[2022-10-22] MEDS: IPRATROPIUM BROMIDE 0.5 MG/2.5 ML NEBU NEB SCH ×4 (01:15→19:50)
[2022-10-22] MEDS: JEVITY 1.2 1000 ML LIQUID GT PRN (03:54)
[2022-10-22] MEDS: VALPROIC ACID 250 MG/5 ML LIQUID UDC GT SCH ×3 (05:43→21:45)
[2022-10-22] MEDS: ACIDOPHILUS/BULGARICUS CHEW TAB GT SCH ×3 (05:43→21:45)
[2022-10-22] MEDS: OMEPRAZOLE 20 MG CAPSULE.DR GT SCH (05:43)
[2022-10-22] MEDS: POLYVINYL ALCOHOL OPHT DROPS 15 ML BOTTLE EACHEYE SCH ×4 (08:32→21:44)
[2022-10-22] MEDS: PHENOBARBITAL 32.4 MG TABLET GT SCH ×2 (08:32→21:44)
[2022-10-22] MEDS: BACLOFEN 20 MG TABLET GT SCH ×3 (08:32→21:44)
[2022-10-22] MEDS: BENZOYL PEROXIDE 10% GEL 60 GM TUBE TP SCH ×2 (08:33→21:45)
[2022-10-22] MEDS: REMEDY ESSENTIAL ZINC PASTE 113 GM TP SCH ×2 (08:33→21:45)
[2022-10-22] MEDS: HYDROGEN PEROXIDE 3% 118 ML BOTTLE TP SCH ×2 (09:15→20:59)
[2022-10-22] MEDS: OMEGA-3 FATTY ACIDS/FISH OIL CAPSULE GT SCH (21:44)
[2022-10-22] MEDS: NUTRISOURCE FIBER 4 GM PACKET GT SCH (21:44)
[2022-10-22] MEDS: LATANOPROST OPHT DROP 2.5 ML BOTTLE EACHEYE SCH (21:44)
[2022-10-23] VITALS (10 sets, daily range): TEMP 98–98.9; O2SAT 98–99
[2022-10-23] MEDS: IPRATROPIUM BROMIDE 0.5 MG/2.5 ML NEBU NEB SCH ×4 (00:54→19:28)
[2022-10-23] MEDS: ALBUTEROL SULFATE 2.5 MG/3 ML NEBU NEB SCH ×4 (00:54→19:28)
[2022-10-23] MEDS: JEVITY 1.2 1000 ML LIQUID GT PRN ×2 (01:15→21:54)
[2022-10-23] MEDS: OMEPRAZOLE 20 MG CAPSULE.DR GT SCH (06:07)
[2022-10-23] MEDS: VALPROIC ACID 250 MG/5 ML LIQUID UDC GT SCH ×3 (06:07→21:49)
[2022-10-23] MEDS: ACIDOPHILUS/BULGARICUS CHEW TAB GT SCH ×3 (06:07→21:49)
[2022-10-23 07:04] LABS: BASOPHILS # (AUTO) 0.1 K/UL (0.0-0.2); BASOPHILS % (AUTO) 0.8 % (0.0-2.0); EOSINOPHILS # (AUTO) 0.2 K/uL (0.0-0.7); EOSINOPHILS % (AUTO) 1.8 % (0.0-7.0); HEMATOCRIT 37.3 % (36.7-47.1); HEMOGLOBIN 12.6 g/dL (12.5-16.3); LYMPHOCYTES # (AUTO) 1.4 K/uL (0.8-4.8); LYMPHOCYTES % (AUTO) 14.4 % (20.5-51.5); MEAN CORPUSCULAR HEMOGLOBIN 31.2 uug (23.8-33.4); MEAN CORPUSCULAR HGB CONC 34 g/dL (32.5-36.3); MEAN CORPUSCULAR VOLUME 92.7 fL (73.0-96.2); MONOCYTES # (AUTO) 1.2 K/uL (0.1-1.30); MONOCYTES % (AUTO) 12.9 % (0.0-11.0); NEUTROPHILS # (AUTO) 6.7 K/uL (1.8-8.9); NEUTROPHILS % (AUTO) 70.1 % (38.5-71.5); PLATELET COUNT (AUTO) 202 K/uL (152-348); RED BLOOD CELL COUNT(AUTO) 4.03 MIL/uL (4.06-5.63); RED CELL DISTRIBUTION WIDTH 14.9 % (12.1-16.2); WHITE BLOOD COUNT (AUTO) 9.5 K/uL (3.6-10.2)
[2022-10-23 07:37] LABS: ALANINE AMINOTRANSFERASE 19 U/L (16-63); ALBUMIN 3.1 g/dL (3.4-5.0); ALKALINE PHOSPHATASE 160 U/L (50-136); ASPARTATE AMINOTRANSFERASE 13 U/L (15-37); BILIRUBIN,TOTAL 0.3 mg/dL (0.2-1.0); CALCIUM 9.2 mg/dL (8.5-10.1); CARBON DIOXIDE 29 mmol/L (21-32); CHLORIDE 100 mmol/L (98-107); CREATININE 0.3 mg/dL (0.6-1.3); GLUCOSE 119 mg/dL (74-106); POTASSIUM 4.3 mmol/L (3.5-5.1); SODIUM SERUM 138 mmol/L (136-145); TOTAL PROTEIN, SERUM 7.7 g/dL (6.4-8.2); UREA NITROGEN, BLOOD 10 mg/dL (7-18)
[2022-10-23 07:48] LABS: DIFFERENTIAL COMMENT 1
[2022-10-23] MEDS: POLYVINYL ALCOHOL OPHT DROPS 15 ML BOTTLE EACHEYE SCH ×4 (08:44→21:49)
[2022-10-23] MEDS: PHENOBARBITAL 32.4 MG TABLET GT SCH ×2 (08:47→21:49)
[2022-10-23] MEDS: BACLOFEN 20 MG TABLET GT SCH ×3 (08:47→21:49)
[2022-10-23] MEDS: REMEDY ESSENTIAL ZINC PASTE 113 GM TP SCH ×2 (08:48→21:49)
[2022-10-23] MEDS: BENZOYL PEROXIDE 10% GEL 60 GM TUBE TP SCH ×2 (08:48→21:49)
[2022-10-23] MEDS: HYDROGEN PEROXIDE 3% 118 ML BOTTLE TP SCH ×2 (09:03→19:28)
[2022-10-23] MEDS: OMEGA-3 FATTY ACIDS/FISH OIL CAPSULE GT SCH (21:49)
[2022-10-23] MEDS: LATANOPROST OPHT DROP 2.5 ML BOTTLE EACHEYE SCH (21:49)
[2022-10-23] MEDS: NUTRISOURCE FIBER 4 GM PACKET GT SCH (21:49)
[2022-10-24] VITALS (9 sets, daily range): TEMP 97.8–98.1; O2SAT 96–99
[2022-10-24] MEDS: IPRATROPIUM BROMIDE 0.5 MG/2.5 ML NEBU NEB SCH ×4 (01:40→19:40)
[2022-10-24] MEDS: ALBUTEROL SULFATE 2.5 MG/3 ML NEBU NEB SCH ×4 (01:40→19:40)
[2022-10-24] MEDS: OMEPRAZOLE 20 MG CAPSULE.DR GT SCH (05:17)
[2022-10-24] MEDS: ACIDOPHILUS/BULGARICUS CHEW TAB GT SCH ×3 (05:17→22:32)
[2022-10-24] MEDS: VALPROIC ACID 250 MG/5 ML LIQUID UDC GT SCH ×3 (05:17→22:32)
[2022-10-24] MEDS: HYDROGEN PEROXIDE 3% 118 ML BOTTLE TP SCH ×2 (07:43→21:08)
[2022-10-24] MEDS: BACLOFEN 20 MG TABLET GT SCH ×3 (09:46→22:30)
[2022-10-24] MEDS: PHENOBARBITAL 32.4 MG TABLET GT SCH ×2 (09:46→22:30)
[2022-10-24] MEDS: POLYVINYL ALCOHOL OPHT DROPS 15 ML BOTTLE EACHEYE SCH ×4 (09:46→21:00)
[2022-10-24] MEDS: BENZOYL PEROXIDE 10% GEL 60 GM TUBE TP SCH ×2 (09:47→21:00)
[2022-10-24] MEDS: REMEDY ESSENTIAL ZINC PASTE 113 GM TP SCH ×2 (09:47→21:00)
[2022-10-24] MEDS: JEVITY 1.2 1000 ML LIQUID GT PRN (17:53)
[2022-10-24] MEDS: OMEGA-3 FATTY ACIDS/FISH OIL CAPSULE GT SCH (21:00)
[2022-10-24] MEDS: NUTRISOURCE FIBER 4 GM PACKET GT SCH (21:00)
[2022-10-24] MEDS: LATANOPROST OPHT DROP 2.5 ML BOTTLE EACHEYE SCH (21:00)
[2022-10-25] VITALS (10 sets, daily range): TEMP 97.5–97.9; O2SAT 97–99
[2022-10-25] MEDS: ALBUTEROL SULFATE 2.5 MG/3 ML NEBU NEB SCH ×4 (01:21→20:24)
[2022-10-25] MEDS: IPRATROPIUM BROMIDE 0.5 MG/2.5 ML NEBU NEB SCH ×4 (01:21→20:24)
[2022-10-25] MEDS: VALPROIC ACID 250 MG/5 ML LIQUID UDC GT SCH ×3 (06:41→21:31)
[2022-10-25] MEDS: ACIDOPHILUS/BULGARICUS CHEW TAB GT SCH ×3 (06:41→21:32)
[2022-10-25] MEDS: OMEPRAZOLE 20 MG CAPSULE.DR GT SCH (06:42)
[2022-10-25] MEDS: HYDROGEN PEROXIDE 3% 118 ML BOTTLE TP SCH ×2 (08:33→20:24)
[2022-10-25] MEDS: BACLOFEN 20 MG TABLET GT SCH ×3 (09:09→21:35)
[2022-10-25] MEDS: BENZOYL PEROXIDE 10% GEL 60 GM TUBE TP SCH ×2 (09:09→21:33)
[2022-10-25] MEDS: PHENOBARBITAL 32.4 MG TABLET GT SCH ×2 (09:09→21:36)
[2022-10-25] MEDS: POLYVINYL ALCOHOL OPHT DROPS 15 ML BOTTLE EACHEYE SCH ×4 (09:09→21:30)
[2022-10-25] MEDS: REMEDY ESSENTIAL ZINC PASTE 113 GM TP SCH ×2 (09:09→21:31)
[2022-10-25] MEDS: OMEGA-3 FATTY ACIDS/FISH OIL CAPSULE GT SCH (21:30)
[2022-10-25] MEDS: NUTRISOURCE FIBER 4 GM PACKET GT SCH (21:31)
[2022-10-25] MEDS: LATANOPROST OPHT DROP 2.5 ML BOTTLE EACHEYE SCH (21:36)
[2022-10-26] VITALS (10 sets, daily range): TEMP 97.8; O2SAT 96–99
[2022-10-26] MEDS: IPRATROPIUM BROMIDE 0.5 MG/2.5 ML NEBU NEB SCH ×4 (01:24→19:20)
[2022-10-26] MEDS: ALBUTEROL SULFATE 2.5 MG/3 ML NEBU NEB SCH ×4 (01:24→19:20)
[2022-10-26] MEDS: VALPROIC ACID 250 MG/5 ML LIQUID UDC GT SCH ×3 (05:29→22:25)
[2022-10-26] MEDS: ACIDOPHILUS/BULGARICUS CHEW TAB GT SCH ×3 (05:30→22:25)
[2022-10-26] MEDS: OMEPRAZOLE 20 MG CAPSULE.DR GT SCH (05:30)
[2022-10-26] MEDS: HYDROGEN PEROXIDE 3% 118 ML BOTTLE TP SCH ×2 (07:25→21:00)
[2022-10-26] MEDS: POLYVINYL ALCOHOL OPHT DROPS 15 ML BOTTLE EACHEYE SCH ×4 (09:46→21:00)
[2022-10-26] MEDS: BACLOFEN 20 MG TABLET GT SCH ×3 (09:46→21:00)
[2022-10-26] MEDS: PHENOBARBITAL 32.4 MG TABLET GT SCH ×2 (09:46→21:00)
[2022-10-26] MEDS: REMEDY ESSENTIAL ZINC PASTE 113 GM TP SCH ×2 (09:46→21:00)
[2022-10-26] MEDS: BENZOYL PEROXIDE 10% GEL 60 GM TUBE TP SCH ×2 (09:46→21:00)
[2022-10-26] MEDS: JEVITY 1.2 1000 ML LIQUID GT PRN (16:24)
[2022-10-26] MEDS: DOXYCYCLINE HYCLATE 100 MG TABLET GT SCH (18:18)
[2022-10-26 20:41] LABS: *BILIRUBIN,URIN NEGATIVE (NEGATIVE); *BLOOD, URINE NEGATIVE (NEGATIVE); *CLARITY,URINE CLEAR (CLEAR); *COLOR,URINE YELLOW (YELLOW); *KETONES,URINE NEGATIVE (NEGATIVE); *PROTEIN,URINE NEGATIVE (NEGATIVE); *UROBILINOGEN,URINE 0.2 E.U./dl (NORMAL); LEUKOCYTE ESTERASE ,URINE NEGATIVE (NEGATIVE); NITRITE, URINE NEGATIVE (NEGATIVE); PH,URINE 8.5 (5.0-8.0); UGLUCOSE NEGATIVE (NEGATIVE)
[2022-10-26] MEDS: NUTRISOURCE FIBER 4 GM PACKET GT SCH (21:00)
[2022-10-26] MEDS: OMEGA-3 FATTY ACIDS/FISH OIL CAPSULE GT SCH (21:00)
[2022-10-26] MEDS: LATANOPROST OPHT DROP 2.5 ML BOTTLE EACHEYE SCH (21:00)
[2022-10-27] VITALS (10 sets, daily range): TEMP 97.4–98.3; O2SAT 96–99
[2022-10-27] MEDS: IPRATROPIUM BROMIDE 0.5 MG/2.5 ML NEBU NEB SCH ×4 (01:22→19:20)
[2022-10-27] MEDS: ALBUTEROL SULFATE 2.5 MG/3 ML NEBU NEB SCH ×4 (01:22→19:20)
[2022-10-27] MEDS: DOXYCYCLINE HYCLATE 100 MG TABLET GT SCH ×2 (06:00→17:43)
[2022-10-27] MEDS: OMEPRAZOLE 20 MG CAPSULE.DR GT SCH (06:00)
[2022-10-27] MEDS: ACIDOPHILUS/BULGARICUS CHEW TAB GT SCH ×3 (06:01→21:25)
[2022-10-27] MEDS: VALPROIC ACID 250 MG/5 ML LIQUID UDC GT SCH ×3 (06:02→21:25)
[2022-10-27] MEDS: HYDROGEN PEROXIDE 3% 118 ML BOTTLE TP SCH ×2 (08:05→21:30)
[2022-10-27] MEDS: POLYVINYL ALCOHOL OPHT DROPS 15 ML BOTTLE EACHEYE SCH ×4 (08:51→21:33)
[2022-10-27] MEDS: BENZOYL PEROXIDE 10% GEL 60 GM TUBE TP SCH ×2 (08:52→21:22)
[2022-10-27] MEDS: REMEDY ESSENTIAL ZINC PASTE 113 GM TP SCH ×2 (08:52→21:22)
[2022-10-27] MEDS: PHENOBARBITAL 32.4 MG TABLET GT SCH ×2 (08:52→21:21)
[2022-10-27] MEDS: BACLOFEN 20 MG TABLET GT SCH ×3 (08:52→21:21)
[2022-10-27] MEDS: LATANOPROST OPHT DROP 2.5 ML BOTTLE EACHEYE SCH (21:21)
[2022-10-27] MEDS: NUTRISOURCE FIBER 4 GM PACKET GT SCH (21:21)
[2022-10-27] MEDS: OMEGA-3 FATTY ACIDS/FISH OIL CAPSULE GT SCH (21:21)
[2022-10-28] VITALS (10 sets, daily range): TEMP 97.6–97.7; O2SAT 96–99
[2022-10-28] MEDS: IPRATROPIUM BROMIDE 0.5 MG/2.5 ML NEBU NEB SCH ×4 (00:55→19:15)
[2022-10-28] MEDS: ALBUTEROL SULFATE 2.5 MG/3 ML NEBU NEB SCH ×4 (00:55→19:15)
[2022-10-28] MEDS: OMEPRAZOLE 20 MG CAPSULE.DR GT SCH (06:10)
[2022-10-28] MEDS: VALPROIC ACID 250 MG/5 ML LIQUID UDC GT SCH ×3 (06:10→21:20)
[2022-10-28] MEDS: ACIDOPHILUS/BULGARICUS CHEW TAB GT SCH ×3 (06:10→21:20)
[2022-10-28] MEDS: DOXYCYCLINE HYCLATE 100 MG TABLET GT SCH ×2 (06:13→17:06)
[2022-10-28] MEDS: HYDROGEN PEROXIDE 3% 118 ML BOTTLE TP SCH ×2 (07:42→21:00)
[2022-10-28] MEDS: BENZOYL PEROXIDE 10% GEL 60 GM TUBE TP SCH ×2 (09:00→21:18)
[2022-10-28] MEDS: POLYVINYL ALCOHOL OPHT DROPS 15 ML BOTTLE EACHEYE SCH ×4 (09:00→21:17)
[2022-10-28] MEDS: PHENOBARBITAL 32.4 MG TABLET GT SCH ×2 (09:00→21:24)
[2022-10-28] MEDS: REMEDY ESSENTIAL ZINC PASTE 113 GM TP SCH ×2 (09:00→21:18)
[2022-10-28] MEDS: BACLOFEN 20 MG TABLET GT SCH ×3 (09:00→21:24)
[2022-10-28] MEDS: LATANOPROST OPHT DROP 2.5 ML BOTTLE EACHEYE SCH (21:17)
[2022-10-28] MEDS: OMEGA-3 FATTY ACIDS/FISH OIL CAPSULE GT SCH (21:18)
[2022-10-28] MEDS: NUTRISOURCE FIBER 4 GM PACKET GT SCH (21:18)
[2022-10-29] VITALS (11 sets, daily range): BP systolic 109; BP diastolic 62; TEMP 97.4–97.8; O2SAT 96–99
[2022-10-29] MEDS: IPRATROPIUM BROMIDE 0.5 MG/2.5 ML NEBU NEB SCH ×4 (01:20→19:20)
[2022-10-29] MEDS: ALBUTEROL SULFATE 2.5 MG/3 ML NEBU NEB SCH ×4 (01:20→19:20)
[2022-10-29] MEDS: DOXYCYCLINE HYCLATE 100 MG TABLET GT SCH ×2 (06:00→17:16)
[2022-10-29] MEDS: ACIDOPHILUS/BULGARICUS CHEW TAB GT SCH ×3 (06:00→22:18)
[2022-10-29] MEDS: VALPROIC ACID 250 MG/5 ML LIQUID UDC GT SCH ×3 (06:00→22:18)
[2022-10-29] MEDS: OMEPRAZOLE 20 MG CAPSULE.DR GT SCH (06:00)
[2022-10-29] MEDS: REMEDY ESSENTIAL ZINC PASTE 113 GM TP SCH ×2 (08:28→20:15)
[2022-10-29] MEDS: BENZOYL PEROXIDE 10% GEL 60 GM TUBE TP SCH ×2 (08:28→20:15)
[2022-10-29] MEDS: POLYVINYL ALCOHOL OPHT DROPS 15 ML BOTTLE EACHEYE SCH ×4 (08:28→20:14)
[2022-10-29] MEDS: BACLOFEN 20 MG TABLET GT SCH ×3 (08:28→20:15)
[2022-10-29] MEDS: PHENOBARBITAL 32.4 MG TABLET GT SCH ×2 (08:28→20:15)
[2022-10-29] MEDS: JEVITY 1.2 1000 ML LIQUID GT PRN (08:30)
[2022-10-29] MEDS: HYDROGEN PEROXIDE 3% 118 ML BOTTLE TP SCH ×2 (09:00→20:59)
[2022-10-29] MEDS: LATANOPROST OPHT DROP 2.5 ML BOTTLE EACHEYE SCH (20:14)
[2022-10-29] MEDS: OMEGA-3 FATTY ACIDS/FISH OIL CAPSULE GT SCH (20:14)
[2022-10-29] MEDS: NUTRISOURCE FIBER 4 GM PACKET GT SCH (20:15)
[2022-10-30] VITALS (10 sets, daily range): TEMP 97.8–98; O2SAT 96–99
[2022-10-30] MEDS: JEVITY 1.2 1000 ML LIQUID GT PRN ×2 (01:25→16:59)
[2022-10-30] MEDS: ALBUTEROL SULFATE 2.5 MG/3 ML NEBU NEB SCH ×4 (01:40→19:15)
[2022-10-30] MEDS: IPRATROPIUM BROMIDE 0.5 MG/2.5 ML NEBU NEB SCH ×4 (01:40→19:15)
[2022-10-30] MEDS: VALPROIC ACID 250 MG/5 ML LIQUID UDC GT SCH ×3 (05:40→21:11)
[2022-10-30] MEDS: ACIDOPHILUS/BULGARICUS CHEW TAB GT SCH ×3 (05:40→21:11)
[2022-10-30] MEDS: DOXYCYCLINE HYCLATE 100 MG TABLET GT SCH ×2 (05:40→17:00)
[2022-10-30] MEDS: OMEPRAZOLE 20 MG CAPSULE.DR GT SCH (05:40)
[2022-10-30] MEDS: HYDROGEN PEROXIDE 3% 118 ML BOTTLE TP SCH ×2 (07:19→20:35)
[2022-10-30] MEDS: POLYVINYL ALCOHOL OPHT DROPS 15 ML BOTTLE EACHEYE SCH ×4 (09:36→21:10)
[2022-10-30] MEDS: BACLOFEN 20 MG TABLET GT SCH ×3 (09:36→21:11)
[2022-10-30] MEDS: PHENOBARBITAL 32.4 MG TABLET GT SCH ×2 (09:37→21:11)
[2022-10-30] MEDS: REMEDY ESSENTIAL ZINC PASTE 113 GM TP SCH ×2 (09:37→21:11)
[2022-10-30] MEDS: BENZOYL PEROXIDE 10% GEL 60 GM TUBE TP SCH ×2 (09:37→21:11)
[2022-10-30] MEDS: OMEGA-3 FATTY ACIDS/FISH OIL CAPSULE GT SCH (21:10)
[2022-10-30] MEDS: LATANOPROST OPHT DROP 2.5 ML BOTTLE EACHEYE SCH (21:10)
[2022-10-30] MEDS: NUTRISOURCE FIBER 4 GM PACKET GT SCH (21:11)
[2022-10-31] VITALS (10 sets, daily range): TEMP 97.5–98.4; O2SAT 96–99
[2022-10-31] MEDS: IPRATROPIUM BROMIDE 0.5 MG/2.5 ML NEBU NEB SCH ×4 (01:33→19:16)
[2022-10-31] MEDS: ALBUTEROL SULFATE 2.5 MG/3 ML NEBU NEB SCH ×4 (01:34→19:16)
[2022-10-31] MEDS: OMEPRAZOLE 20 MG CAPSULE.DR GT SCH (06:15)
[2022-10-31] MEDS: DOXYCYCLINE HYCLATE 100 MG TABLET GT SCH ×2 (06:15→17:00)
[2022-10-31] MEDS: VALPROIC ACID 250 MG/5 ML LIQUID UDC GT SCH ×3 (06:15→21:09)
[2022-10-31] MEDS: ACIDOPHILUS/BULGARICUS CHEW TAB GT SCH ×3 (06:15→21:10)
[2022-10-31] MEDS: HYDROGEN PEROXIDE 3% 118 ML BOTTLE TP SCH ×2 (07:35→21:00)
[2022-10-31] MEDS: POLYVINYL ALCOHOL OPHT DROPS 15 ML BOTTLE EACHEYE SCH ×4 (08:24→21:09)
[2022-10-31] MEDS: PHENOBARBITAL 32.4 MG TABLET GT SCH ×2 (08:25→21:14)
[2022-10-31] MEDS: REMEDY ESSENTIAL ZINC PASTE 113 GM TP SCH ×2 (08:25→21:09)
[2022-10-31] MEDS: BENZOYL PEROXIDE 10% GEL 60 GM TUBE TP SCH ×2 (08:25→21:09)
[2022-10-31] MEDS: BACLOFEN 20 MG TABLET GT SCH ×3 (08:25→21:14)
[2022-10-31] MEDS: JEVITY 1.2 1000 ML LIQUID GT PRN (14:28)
[2022-10-31] MEDS: OMEGA-3 FATTY ACIDS/FISH OIL CAPSULE GT SCH (21:09)
[2022-10-31] MEDS: LATANOPROST OPHT DROP 2.5 ML BOTTLE EACHEYE SCH (21:09)
[2022-10-31] MEDS: NUTRISOURCE FIBER 4 GM PACKET GT SCH (21:09)
[2022-11-01] VITALS (10 sets, daily range): TEMP 97.5–98; O2SAT 96–99
[2022-11-01] MEDS: ALBUTEROL SULFATE 2.5 MG/3 ML NEBU NEB SCH ×4 (01:26→19:55)
[2022-11-01] MEDS: IPRATROPIUM BROMIDE 0.5 MG/2.5 ML NEBU NEB SCH ×4 (01:26→19:55)
[2022-11-01] MEDS: OMEPRAZOLE 20 MG CAPSULE.DR GT SCH (06:13)
[2022-11-01] MEDS: DOXYCYCLINE HYCLATE 100 MG TABLET GT SCH ×2 (06:13→17:25)
[2022-11-01] MEDS: VALPROIC ACID 250 MG/5 ML LIQUID UDC GT SCH ×3 (06:13→22:32)
[2022-11-01] MEDS: ACIDOPHILUS/BULGARICUS CHEW TAB GT SCH ×3 (06:13→22:32)
[2022-11-01] MEDS: POLYVINYL ALCOHOL OPHT DROPS 15 ML BOTTLE EACHEYE SCH ×4 (08:17→20:39)
[2022-11-01] MEDS: PHENOBARBITAL 32.4 MG TABLET GT SCH ×2 (08:17→20:46)
[2022-11-01] MEDS: REMEDY ESSENTIAL ZINC PASTE 113 GM TP SCH ×2 (08:17→20:40)
[2022-11-01] MEDS: BACLOFEN 20 MG TABLET GT SCH ×3 (08:17→20:46)
[2022-11-01] MEDS: BENZOYL PEROXIDE 10% GEL 60 GM TUBE TP SCH ×2 (08:17→20:40)
[2022-11-01] MEDS: HYDROGEN PEROXIDE 3% 118 ML BOTTLE TP SCH ×2 (09:05→20:49)
[2022-11-01] MEDS: JEVITY 1.2 1000 ML LIQUID GT PRN (10:37)
[2022-11-01] MEDS: LATANOPROST OPHT DROP 2.5 ML BOTTLE EACHEYE SCH (20:39)
[2022-11-01] MEDS: OMEGA-3 FATTY ACIDS/FISH OIL CAPSULE GT SCH (20:39)
[2022-11-01] MEDS: NUTRISOURCE FIBER 4 GM PACKET GT SCH (20:40)
[2022-11-02] VITALS (10 sets, daily range): TEMP 97–97.9; O2SAT 96–99
[2022-11-02] MEDS: ALBUTEROL SULFATE 2.5 MG/3 ML NEBU NEB SCH ×4 (00:34→19:25)
[2022-11-02] MEDS: IPRATROPIUM BROMIDE 0.5 MG/2.5 ML NEBU NEB SCH ×4 (00:34→19:25)
[2022-11-02] MEDS: JEVITY 1.2 1000 ML LIQUID GT PRN (03:28)
[2022-11-02] MEDS: DOXYCYCLINE HYCLATE 100 MG TABLET GT SCH ×2 (05:51→17:12)
[2022-11-02] MEDS: OMEPRAZOLE 20 MG CAPSULE.DR GT SCH (05:51)
[2022-11-02] MEDS: VALPROIC ACID 250 MG/5 ML LIQUID UDC GT SCH ×3 (05:51→21:20)
[2022-11-02] MEDS: ACIDOPHILUS/BULGARICUS CHEW TAB GT SCH ×3 (05:51→21:20)
[2022-11-02] MEDS: HYDROGEN PEROXIDE 3% 118 ML BOTTLE TP SCH ×2 (07:46→19:25)
[2022-11-02] MEDS: POLYVINYL ALCOHOL OPHT DROPS 15 ML BOTTLE EACHEYE SCH ×4 (08:54→21:16)
[2022-11-02] MEDS: REMEDY ESSENTIAL ZINC PASTE 113 GM TP SCH ×2 (08:58→21:19)
[2022-11-02] MEDS: PHENOBARBITAL 32.4 MG TABLET GT SCH ×2 (09:05→21:19)
[2022-11-02] MEDS: BACLOFEN 20 MG TABLET GT SCH ×3 (09:05→21:19)
[2022-11-02] MEDS: BENZOYL PEROXIDE 10% GEL 60 GM TUBE TP SCH ×2 (09:58→21:19)
[2022-11-02] MEDS: OMEGA-3 FATTY ACIDS/FISH OIL CAPSULE GT SCH (21:18)
[2022-11-02] MEDS: LATANOPROST OPHT DROP 2.5 ML BOTTLE EACHEYE SCH (21:18)
[2022-11-02] MEDS: NUTRISOURCE FIBER 4 GM PACKET GT SCH (21:19)
[2022-11-03] VITALS (10 sets, daily range): TEMP 97.3–97.7; O2SAT 97–99
[2022-11-03] MEDS: JEVITY 1.2 1000 ML LIQUID GT PRN ×2 (01:16→17:24)
[2022-11-03] MEDS: IPRATROPIUM BROMIDE 0.5 MG/2.5 ML NEBU NEB SCH ×4 (01:37→19:20)
[2022-11-03] MEDS: ALBUTEROL SULFATE 2.5 MG/3 ML NEBU NEB SCH ×4 (01:38→19:20)
[2022-11-03] MEDS: VALPROIC ACID 250 MG/5 ML LIQUID UDC GT SCH ×3 (05:57→22:37)
[2022-11-03] MEDS: OMEPRAZOLE 20 MG CAPSULE.DR GT SCH (05:58)
[2022-11-03] MEDS: DOXYCYCLINE HYCLATE 100 MG TABLET GT SCH ×2 (05:58→17:24)
[2022-11-03] MEDS: ACIDOPHILUS/BULGARICUS CHEW TAB GT SCH ×3 (05:58→22:37)
[2022-11-03] MEDS: HYDROGEN PEROXIDE 3% 118 ML BOTTLE TP SCH ×2 (07:35→19:21)
[2022-11-03] MEDS: POLYVINYL ALCOHOL OPHT DROPS 15 ML BOTTLE EACHEYE SCH ×4 (08:24→20:40)
[2022-11-03] MEDS: REMEDY ESSENTIAL ZINC PASTE 113 GM TP SCH ×2 (08:24→20:40)
[2022-11-03] MEDS: BACLOFEN 20 MG TABLET GT SCH ×3 (08:24→20:44)
[2022-11-03] MEDS: PHENOBARBITAL 32.4 MG TABLET GT SCH ×2 (08:24→20:44)
[2022-11-03] MEDS: BENZOYL PEROXIDE 10% GEL 60 GM TUBE TP SCH ×2 (09:00→20:40)
[2022-11-03] MEDS: OMEGA-3 FATTY ACIDS/FISH OIL CAPSULE GT SCH (20:40)
[2022-11-03] MEDS: LATANOPROST OPHT DROP 2.5 ML BOTTLE EACHEYE SCH (20:40)
[2022-11-03] MEDS: NUTRISOURCE FIBER 4 GM PACKET GT SCH (20:40)
[2022-11-04] VITALS (10 sets, daily range): TEMP 97.6–98.1; O2SAT 96–99
[2022-11-04] MEDS: ALBUTEROL SULFATE 2.5 MG/3 ML NEBU NEB SCH ×4 (01:35→19:50)
[2022-11-04] MEDS: IPRATROPIUM BROMIDE 0.5 MG/2.5 ML NEBU NEB SCH ×4 (01:35→19:50)
[2022-11-04] MEDS: VALPROIC ACID 250 MG/5 ML LIQUID UDC GT SCH ×3 (06:14→22:02)
[2022-11-04] MEDS: DOXYCYCLINE HYCLATE 100 MG TABLET GT SCH ×2 (06:14→17:32)
[2022-11-04] MEDS: OMEPRAZOLE 20 MG CAPSULE.DR GT SCH (06:14)
[2022-11-04] MEDS: ACIDOPHILUS/BULGARICUS CHEW TAB GT SCH ×3 (06:14→22:02)
[2022-11-04] MEDS: POLYVINYL ALCOHOL OPHT DROPS 15 ML BOTTLE EACHEYE SCH ×4 (08:30→21:00)
[2022-11-04] MEDS: PHENOBARBITAL 32.4 MG TABLET GT SCH ×2 (08:33→21:00)
[2022-11-04] MEDS: BACLOFEN 20 MG TABLET GT SCH ×3 (08:33→21:00)
[2022-11-04] MEDS: REMEDY ESSENTIAL ZINC PASTE 113 GM TP SCH ×2 (08:34→21:00)
[2022-11-04] MEDS: HYDROGEN PEROXIDE 3% 118 ML BOTTLE TP SCH ×2 (08:58→21:16)
[2022-11-04] MEDS: BENZOYL PEROXIDE 10% GEL 60 GM TUBE TP SCH ×2 (09:00→21:00)
[2022-11-04] MEDS: JEVITY 1.2 1000 ML LIQUID GT PRN (16:04)
[2022-11-04] MEDS: LATANOPROST OPHT DROP 2.5 ML BOTTLE EACHEYE SCH (21:00)
[2022-11-04] MEDS: NUTRISOURCE FIBER 4 GM PACKET GT SCH (21:00)
[2022-11-04] MEDS: OMEGA-3 FATTY ACIDS/FISH OIL CAPSULE GT SCH (21:00)
[2022-11-05] VITALS (10 sets, daily range): TEMP 97.4–97.6; O2SAT 97–99
[2022-11-05] MEDS: IPRATROPIUM BROMIDE 0.5 MG/2.5 ML NEBU NEB SCH ×4 (01:30→20:22)
[2022-11-05] MEDS: ALBUTEROL SULFATE 2.5 MG/3 ML NEBU NEB SCH ×4 (01:30→20:22)
[2022-11-05] MEDS: VALPROIC ACID 250 MG/5 ML LIQUID UDC GT SCH ×2 (06:06→13:40)
[2022-11-05] MEDS: ACIDOPHILUS/BULGARICUS CHEW TAB GT SCH ×3 (06:10→22:00)
[2022-11-05] MEDS: DOXYCYCLINE HYCLATE 100 MG TABLET GT SCH ×2 (06:10→18:13)
[2022-11-05] MEDS: OMEPRAZOLE 20 MG CAPSULE.DR GT SCH (06:10)
[2022-11-05] MEDS: HYDROGEN PEROXIDE 3% 118 ML BOTTLE TP SCH ×2 (07:36→21:00)
[2022-11-05] MEDS: POLYVINYL ALCOHOL OPHT DROPS 15 ML BOTTLE EACHEYE SCH ×4 (08:41→21:00)
[2022-11-05] MEDS: REMEDY ESSENTIAL ZINC PASTE 113 GM TP SCH ×2 (08:41→21:00)
[2022-11-05] MEDS: BACLOFEN 20 MG TABLET GT SCH ×2 (08:41→12:54)
[2022-11-05] MEDS: PHENOBARBITAL 32.4 MG TABLET GT SCH (08:41)
[2022-11-05] MEDS: JEVITY 1.2 1000 ML LIQUID GT PRN (13:36)
[2022-11-05] MEDS: NUTRISOURCE FIBER 4 GM PACKET GT SCH (21:00)
[2022-11-05] MEDS: BENZOYL PEROXIDE 10% GEL 60 GM TUBE TP SCH (21:00)
[2022-11-06] VITALS (10 sets, daily range): TEMP 97.2–97.8; O2SAT 97–99
[2022-11-06] MEDS: LATANOPROST OPHT DROP 2.5 ML BOTTLE EACHEYE SCH ×2 (00:36→21:54)
[2022-11-06] MEDS: OMEGA-3 FATTY ACIDS/FISH OIL CAPSULE GT SCH ×2 (00:37→21:54)
[2022-11-06] MEDS: BACLOFEN 20 MG TABLET GT SCH ×4 (00:40→21:54)
[2022-11-06] MEDS: PHENOBARBITAL 32.4 MG TABLET GT SCH ×3 (00:40→21:54)
[2022-11-06] MEDS: VALPROIC ACID 250 MG/5 ML LIQUID UDC GT SCH ×4 (00:47→21:54)
[2022-11-06] MEDS: ALBUTEROL SULFATE 2.5 MG/3 ML NEBU NEB SCH ×4 (01:43→19:19)
[2022-11-06] MEDS: IPRATROPIUM BROMIDE 0.5 MG/2.5 ML NEBU NEB SCH ×4 (01:43→19:19)
[2022-11-06] MEDS: ACIDOPHILUS/BULGARICUS CHEW TAB GT SCH ×3 (06:00→21:54)
[2022-11-06] MEDS: OMEPRAZOLE 20 MG CAPSULE.DR GT SCH (06:00)
[2022-11-06] MEDS: POLYVINYL ALCOHOL OPHT DROPS 15 ML BOTTLE EACHEYE SCH ×4 (09:00→21:54)
[2022-11-06] MEDS: REMEDY ESSENTIAL ZINC PASTE 113 GM TP SCH ×2 (09:00→21:54)
[2022-11-06] MEDS: HYDROGEN PEROXIDE 3% 118 ML BOTTLE TP SCH ×2 (09:07→19:19)
[2022-11-06] MEDS: BENZOYL PEROXIDE 10% GEL 60 GM TUBE TP SCH (21:00)
[2022-11-06] MEDS: NUTRISOURCE FIBER 4 GM PACKET GT SCH (21:54)
[2022-11-07] VITALS (10 sets, daily range): TEMP 97.4–98.2; O2SAT 97–99
[2022-11-07] MEDS: ALBUTEROL SULFATE 2.5 MG/3 ML NEBU NEB SCH ×4 (01:30→19:25)
[2022-11-07] MEDS: IPRATROPIUM BROMIDE 0.5 MG/2.5 ML NEBU NEB SCH ×4 (01:30→19:25)
[2022-11-07] MEDS: JEVITY 1.2 1000 ML LIQUID GT PRN (04:10)
[2022-11-07] MEDS: ACIDOPHILUS/BULGARICUS CHEW TAB GT SCH ×3 (06:07→22:00)
[2022-11-07] MEDS: VALPROIC ACID 250 MG/5 ML LIQUID UDC GT SCH ×3 (06:07→22:00)
[2022-11-07] MEDS: OMEPRAZOLE 20 MG CAPSULE.DR GT SCH (06:07)
[2022-11-07] MEDS: HYDROGEN PEROXIDE 3% 118 ML BOTTLE TP SCH ×2 (08:07→19:25)
[2022-11-07] MEDS: BENZOYL PEROXIDE 10% GEL 60 GM TUBE TP SCH ×2 (08:42→21:00)
[2022-11-07] MEDS: POLYVINYL ALCOHOL OPHT DROPS 15 ML BOTTLE EACHEYE SCH ×4 (08:42→21:00)
[2022-11-07] MEDS: BACLOFEN 20 MG TABLET GT SCH ×3 (08:42→21:00)
[2022-11-07] MEDS: PHENOBARBITAL 32.4 MG TABLET GT SCH ×2 (08:42→21:00)
[2022-11-07] MEDS: REMEDY ESSENTIAL ZINC PASTE 113 GM TP SCH ×2 (08:42→21:00)
[2022-11-07] MEDS: OMEGA-3 FATTY ACIDS/FISH OIL CAPSULE GT SCH (21:00)
[2022-11-07] MEDS: NUTRISOURCE FIBER 4 GM PACKET GT SCH (21:00)
[2022-11-07] MEDS: LATANOPROST OPHT DROP 2.5 ML BOTTLE EACHEYE SCH (21:00)
[2022-11-08] VITALS (10 sets, daily range): TEMP 97.4–97.7; O2SAT 97–99
[2022-11-08] MEDS: IPRATROPIUM BROMIDE 0.5 MG/2.5 ML NEBU NEB SCH ×4 (01:41→19:22)
[2022-11-08] MEDS: ALBUTEROL SULFATE 2.5 MG/3 ML NEBU NEB SCH ×4 (01:41→19:22)
[2022-11-08] MEDS: ACIDOPHILUS/BULGARICUS CHEW TAB GT SCH ×3 (05:58→22:30)
[2022-11-08] MEDS: VALPROIC ACID 250 MG/5 ML LIQUID UDC GT SCH ×3 (05:58→22:30)
[2022-11-08] MEDS: OMEPRAZOLE 20 MG CAPSULE.DR GT SCH (05:58)
[2022-11-08] MEDS: POLYVINYL ALCOHOL OPHT DROPS 15 ML BOTTLE EACHEYE SCH ×4 (08:59→21:00)
[2022-11-08] MEDS: BACLOFEN 20 MG TABLET GT SCH ×3 (09:02→21:00)
[2022-11-08] MEDS: REMEDY ESSENTIAL ZINC PASTE 113 GM TP SCH ×2 (09:02→21:00)
[2022-11-08] MEDS: BENZOYL PEROXIDE 10% GEL 60 GM TUBE TP SCH ×2 (09:02→21:00)
[2022-11-08] MEDS: PHENOBARBITAL 32.4 MG TABLET GT SCH ×2 (09:02→21:00)
[2022-11-08] MEDS: HYDROGEN PEROXIDE 3% 118 ML BOTTLE TP SCH ×2 (09:12→19:22)
[2022-11-08] MEDS: OMEGA-3 FATTY ACIDS/FISH OIL CAPSULE GT SCH (21:00)
[2022-11-08] MEDS: LATANOPROST OPHT DROP 2.5 ML BOTTLE EACHEYE SCH (21:00)
[2022-11-08] MEDS: NUTRISOURCE FIBER 4 GM PACKET GT SCH (21:00)
[2022-11-09] VITALS (10 sets, daily range): TEMP 97–98; O2SAT 97–99
[2022-11-09] MEDS: IPRATROPIUM BROMIDE 0.5 MG/2.5 ML NEBU NEB SCH ×4 (01:06→19:23)
[2022-11-09] MEDS: ALBUTEROL SULFATE 2.5 MG/3 ML NEBU NEB SCH ×4 (01:06→19:23)
[2022-11-09] MEDS: VALPROIC ACID 250 MG/5 ML LIQUID UDC GT SCH ×3 (05:26→21:29)
[2022-11-09] MEDS: OMEPRAZOLE 20 MG CAPSULE.DR GT SCH (05:26)
[2022-11-09] MEDS: ACIDOPHILUS/BULGARICUS CHEW TAB GT SCH ×3 (05:26→21:29)
[2022-11-09] MEDS: HYDROGEN PEROXIDE 3% 118 ML BOTTLE TP SCH ×2 (08:12→19:23)
[2022-11-09] MEDS: BENZOYL PEROXIDE 10% GEL 60 GM TUBE TP SCH ×2 (09:09→21:29)
[2022-11-09] MEDS: REMEDY ESSENTIAL ZINC PASTE 113 GM TP SCH ×2 (09:09→21:29)
[2022-11-09] MEDS: POLYVINYL ALCOHOL OPHT DROPS 15 ML BOTTLE EACHEYE SCH ×4 (09:09→21:29)
[2022-11-09] MEDS: BACLOFEN 20 MG TABLET GT SCH ×3 (09:14→21:29)
[2022-11-09] MEDS: PHENOBARBITAL 32.4 MG TABLET GT SCH ×2 (09:14→21:29)
[2022-11-09] MEDS: NUTRISOURCE FIBER 4 GM PACKET GT SCH (21:29)
[2022-11-09] MEDS: LATANOPROST OPHT DROP 2.5 ML BOTTLE EACHEYE SCH (21:29)
[2022-11-09] MEDS: OMEGA-3 FATTY ACIDS/FISH OIL CAPSULE GT SCH (21:29)
[2022-11-09] MEDS: JEVITY 1.2 1000 ML LIQUID GT PRN (22:46)
[2022-11-10] VITALS (11 sets, daily range): TEMP 96.9–98.1; O2SAT 97–99
[2022-11-10] MEDS: IPRATROPIUM BROMIDE 0.5 MG/2.5 ML NEBU NEB SCH ×4 (01:28→19:14)
[2022-11-10] MEDS: ALBUTEROL SULFATE 2.5 MG/3 ML NEBU NEB SCH ×4 (01:29→19:15)
[2022-11-10] MEDS: ACIDOPHILUS/BULGARICUS CHEW TAB GT SCH ×3 (05:46→21:26)
[2022-11-10] MEDS: OMEPRAZOLE 20 MG CAPSULE.DR GT SCH (05:46)
[2022-11-10] MEDS: VALPROIC ACID 250 MG/5 ML LIQUID UDC GT SCH ×3 (05:46→21:26)
[2022-11-10] MEDS: HYDROGEN PEROXIDE 3% 118 ML BOTTLE TP SCH ×2 (07:40→21:33)
[2022-11-10] MEDS: POLYVINYL ALCOHOL OPHT DROPS 15 ML BOTTLE EACHEYE SCH ×4 (08:27→21:26)
[2022-11-10] MEDS: BENZOYL PEROXIDE 10% GEL 60 GM TUBE TP SCH ×2 (08:27→21:26)
[2022-11-10] MEDS: BACLOFEN 20 MG TABLET GT SCH ×3 (08:27→21:26)
[2022-11-10] MEDS: PHENOBARBITAL 32.4 MG TABLET GT SCH ×2 (08:27→21:26)
[2022-11-10] MEDS: REMEDY ESSENTIAL ZINC PASTE 113 GM TP SCH ×2 (08:28→21:26)
[2022-11-10] MEDS: OMEGA-3 FATTY ACIDS/FISH OIL CAPSULE GT SCH (21:26)
[2022-11-10] MEDS: LATANOPROST OPHT DROP 2.5 ML BOTTLE EACHEYE SCH (21:26)
[2022-11-10] MEDS: NUTRISOURCE FIBER 4 GM PACKET GT SCH (21:26)
[2022-11-11] VITALS (12 sets, daily range): BP systolic 106; BP diastolic 61; TEMP 97.6–98.1; O2SAT 97–99
[2022-11-11] MEDS: IPRATROPIUM BROMIDE 0.5 MG/2.5 ML NEBU NEB SCH ×4 (01:14→19:25)
[2022-11-11] MEDS: ALBUTEROL SULFATE 2.5 MG/3 ML NEBU NEB SCH ×4 (01:15→19:25)
[2022-11-11] MEDS: OMEPRAZOLE 20 MG CAPSULE.DR GT SCH (05:36)
[2022-11-11] MEDS: ACIDOPHILUS/BULGARICUS CHEW TAB GT SCH ×3 (05:36→22:40)
[2022-11-11] MEDS: VALPROIC ACID 250 MG/5 ML LIQUID UDC GT SCH ×3 (05:36→22:40)
[2022-11-11] MEDS: BACLOFEN 20 MG TABLET GT SCH ×3 (08:52→20:29)
[2022-11-11] MEDS: POLYVINYL ALCOHOL OPHT DROPS 15 ML BOTTLE EACHEYE SCH ×4 (08:52→20:19)
[2022-11-11] MEDS: BENZOYL PEROXIDE 10% GEL 60 GM TUBE TP SCH ×2 (08:53→20:23)
[2022-11-11] MEDS: REMEDY ESSENTIAL ZINC PASTE 113 GM TP SCH ×2 (08:53→20:23)
[2022-11-11] MEDS: PHENOBARBITAL 32.4 MG TABLET GT SCH ×2 (08:53→20:29)
[2022-11-11] MEDS: HYDROGEN PEROXIDE 3% 118 ML BOTTLE TP SCH ×2 (09:45→21:00)
[2022-11-11] MEDS: LATANOPROST OPHT DROP 2.5 ML BOTTLE EACHEYE SCH (20:19)
[2022-11-11] MEDS: OMEGA-3 FATTY ACIDS/FISH OIL CAPSULE GT SCH (20:22)
[2022-11-11] MEDS: NUTRISOURCE FIBER 4 GM PACKET GT SCH (20:23)
[2022-11-12] VITALS (10 sets, daily range): TEMP 97.5–97.6; O2SAT 97–99
[2022-11-12] MEDS: IPRATROPIUM BROMIDE 0.5 MG/2.5 ML NEBU NEB SCH ×4 (01:22→19:20)
[2022-11-12] MEDS: ALBUTEROL SULFATE 2.5 MG/3 ML NEBU NEB SCH ×4 (01:22→19:20)
[2022-11-12] MEDS: VALPROIC ACID 250 MG/5 ML LIQUID UDC GT SCH ×3 (05:15→22:21)
[2022-11-12] MEDS: OMEPRAZOLE 20 MG CAPSULE.DR GT SCH (05:15)
[2022-11-12] MEDS: ACIDOPHILUS/BULGARICUS CHEW TAB GT SCH ×3 (05:15→22:21)
[2022-11-12] MEDS: HYDROGEN PEROXIDE 3% 118 ML BOTTLE TP SCH ×2 (07:17→20:43)
[2022-11-12] MEDS: BACLOFEN 20 MG TABLET GT SCH ×3 (08:23→21:00)
[2022-11-12] MEDS: POLYVINYL ALCOHOL OPHT DROPS 15 ML BOTTLE EACHEYE SCH ×4 (08:23→21:00)
[2022-11-12] MEDS: BENZOYL PEROXIDE 10% GEL 60 GM TUBE TP SCH ×2 (08:23→21:00)
[2022-11-12] MEDS: PHENOBARBITAL 32.4 MG TABLET GT SCH ×2 (08:23→21:00)
[2022-11-12] MEDS: REMEDY ESSENTIAL ZINC PASTE 113 GM TP SCH ×2 (08:23→21:00)
[2022-11-12] MEDS: JEVITY 1.2 1000 ML LIQUID GT PRN (14:55)
[2022-11-12] MEDS: LATANOPROST OPHT DROP 2.5 ML BOTTLE EACHEYE SCH (21:00)
[2022-11-12] MEDS: NUTRISOURCE FIBER 4 GM PACKET GT SCH (21:00)
[2022-11-12] MEDS: OMEGA-3 FATTY ACIDS/FISH OIL CAPSULE GT SCH (21:00)
[2022-11-13] VITALS (10 sets, daily range): TEMP 97.6–98.3; O2SAT 97–99
[2022-11-13] MEDS: ALBUTEROL SULFATE 2.5 MG/3 ML NEBU NEB SCH ×4 (00:46→19:02)
[2022-11-13] MEDS: IPRATROPIUM BROMIDE 0.5 MG/2.5 ML NEBU NEB SCH ×4 (00:46→19:01)
[2022-11-13] MEDS: VALPROIC ACID 250 MG/5 ML LIQUID UDC GT SCH ×3 (05:47→21:24)
[2022-11-13] MEDS: OMEPRAZOLE 20 MG CAPSULE.DR GT SCH (05:47)
[2022-11-13] MEDS: ACIDOPHILUS/BULGARICUS CHEW TAB GT SCH ×3 (05:47→21:24)
[2022-11-13] MEDS: PHENOBARBITAL 32.4 MG TABLET GT SCH ×2 (08:47→20:41)
[2022-11-13] MEDS: BENZOYL PEROXIDE 10% GEL 60 GM TUBE TP SCH ×2 (08:47→20:41)
[2022-11-13] MEDS: REMEDY ESSENTIAL ZINC PASTE 113 GM TP SCH ×2 (08:47→20:41)
[2022-11-13] MEDS: POLYVINYL ALCOHOL OPHT DROPS 15 ML BOTTLE EACHEYE SCH ×4 (08:47→20:40)
[2022-11-13] MEDS: BACLOFEN 20 MG TABLET GT SCH ×3 (08:47→20:40)
[2022-11-13] MEDS: HYDROGEN PEROXIDE 3% 118 ML BOTTLE TP SCH ×2 (09:00→19:02)
[2022-11-13] MEDS: LATANOPROST OPHT DROP 2.5 ML BOTTLE EACHEYE SCH (20:40)
[2022-11-13] MEDS: OMEGA-3 FATTY ACIDS/FISH OIL CAPSULE GT SCH (20:40)
[2022-11-13] MEDS: NUTRISOURCE FIBER 4 GM PACKET GT SCH (20:40)
[2022-11-14] VITALS (10 sets, daily range): TEMP 97.5–98.1; O2SAT 97–99
[2022-11-14] MEDS: IPRATROPIUM BROMIDE 0.5 MG/2.5 ML NEBU NEB SCH ×4 (01:40→19:40)
[2022-11-14] MEDS: ALBUTEROL SULFATE 2.5 MG/3 ML NEBU NEB SCH ×4 (01:40→19:40)
[2022-11-14] MEDS: JEVITY 1.2 1000 ML LIQUID GT PRN (04:09)
[2022-11-14] MEDS: ACIDOPHILUS/BULGARICUS CHEW TAB GT SCH ×3 (05:35→21:16)
[2022-11-14] MEDS: OMEPRAZOLE 20 MG CAPSULE.DR GT SCH (05:35)
[2022-11-14] MEDS: VALPROIC ACID 250 MG/5 ML LIQUID UDC GT SCH ×3 (05:35→21:15)
[2022-11-14] MEDS: HYDROGEN PEROXIDE 3% 118 ML BOTTLE TP SCH ×2 (09:00→21:00)
[2022-11-14] MEDS: BACLOFEN 20 MG TABLET GT SCH ×3 (09:29→20:16)
[2022-11-14] MEDS: PHENOBARBITAL 32.4 MG TABLET GT SCH ×2 (09:29→20:16)
[2022-11-14] MEDS: POLYVINYL ALCOHOL OPHT DROPS 15 ML BOTTLE EACHEYE SCH ×4 (09:29→20:16)
[2022-11-14] MEDS: BENZOYL PEROXIDE 10% GEL 60 GM TUBE TP SCH ×2 (09:29→20:16)
[2022-11-14] MEDS: REMEDY ESSENTIAL ZINC PASTE 113 GM TP SCH ×2 (09:30→20:17)
[2022-11-14] MEDS: NUTRISOURCE FIBER 4 GM PACKET GT SCH (20:16)
[2022-11-14] MEDS: LATANOPROST OPHT DROP 2.5 ML BOTTLE EACHEYE SCH (20:16)
[2022-11-14] MEDS: OMEGA-3 FATTY ACIDS/FISH OIL CAPSULE GT SCH (20:16)
[2022-11-15] VITALS (10 sets, daily range): TEMP 97.3–97.6; O2SAT 97–99
[2022-11-15] MEDS: JEVITY 1.2 1000 ML LIQUID GT PRN (01:10)
[2022-11-15] MEDS: IPRATROPIUM BROMIDE 0.5 MG/2.5 ML NEBU NEB SCH ×4 (01:18→19:22)
[2022-11-15] MEDS: ALBUTEROL SULFATE 2.5 MG/3 ML NEBU NEB SCH ×4 (01:18→19:22)
[2022-11-15] MEDS: VALPROIC ACID 250 MG/5 ML LIQUID UDC GT SCH ×3 (06:50→21:38)
[2022-11-15] MEDS: ACIDOPHILUS/BULGARICUS CHEW TAB GT SCH ×3 (06:50→21:38)
[2022-11-15] MEDS: OMEPRAZOLE 20 MG CAPSULE.DR GT SCH (06:50)
[2022-11-15] MEDS: HYDROGEN PEROXIDE 3% 118 ML BOTTLE TP SCH ×2 (08:49→21:02)
[2022-11-15] MEDS: POLYVINYL ALCOHOL OPHT DROPS 15 ML BOTTLE EACHEYE SCH ×4 (09:02→21:35)
[2022-11-15] MEDS: BENZOYL PEROXIDE 10% GEL 60 GM TUBE TP SCH ×2 (09:05→21:38)
[2022-11-15] MEDS: REMEDY ESSENTIAL ZINC PASTE 113 GM TP SCH ×2 (09:05→21:38)
[2022-11-15] MEDS: BACLOFEN 20 MG TABLET GT SCH ×3 (09:10→21:36)
[2022-11-15] MEDS: PHENOBARBITAL 32.4 MG TABLET GT SCH ×2 (09:10→21:36)
[2022-11-15] MEDS: OMEGA-3 FATTY ACIDS/FISH OIL CAPSULE GT SCH (21:36)
[2022-11-15] MEDS: NUTRISOURCE FIBER 4 GM PACKET GT SCH (21:36)
[2022-11-15] MEDS: LATANOPROST OPHT DROP 2.5 ML BOTTLE EACHEYE SCH (21:36)
[2022-11-16] VITALS (10 sets, daily range): TEMP 97–97.2; O2SAT 97–99
[2022-11-16] MEDS: IPRATROPIUM BROMIDE 0.5 MG/2.5 ML NEBU NEB SCH ×4 (01:36→19:16)
[2022-11-16] MEDS: ALBUTEROL SULFATE 2.5 MG/3 ML NEBU NEB SCH ×4 (01:36→19:16)
[2022-11-16] MEDS: JEVITY 1.2 1000 ML LIQUID GT PRN (04:00)
[2022-11-16] MEDS: ACIDOPHILUS/BULGARICUS CHEW TAB GT SCH ×3 (05:48→21:17)
[2022-11-16] MEDS: VALPROIC ACID 250 MG/5 ML LIQUID UDC GT SCH ×3 (05:48→21:15)
[2022-11-16] MEDS: OMEPRAZOLE 20 MG CAPSULE.DR GT SCH (05:48)
[2022-11-16] MEDS: HYDROGEN PEROXIDE 3% 118 ML BOTTLE TP SCH ×2 (09:00→19:16)
[2022-11-16] MEDS: POLYVINYL ALCOHOL OPHT DROPS 15 ML BOTTLE EACHEYE SCH ×4 (09:24→21:11)
[2022-11-16] MEDS: PHENOBARBITAL 32.4 MG TABLET GT SCH ×2 (09:31→21:15)
[2022-11-16] MEDS: BACLOFEN 20 MG TABLET GT SCH ×3 (09:31→21:13)
[2022-11-16] MEDS: BENZOYL PEROXIDE 10% GEL 60 GM TUBE TP SCH ×2 (09:33→21:15)
[2022-11-16] MEDS: REMEDY ESSENTIAL ZINC PASTE 113 GM TP SCH ×2 (09:34→21:15)
[2022-11-16] MEDS: DOXYCYCLINE HYCLATE 100 MG TABLET GT SCH (20:00)
[2022-11-16] MEDS: LATANOPROST OPHT DROP 2.5 ML BOTTLE EACHEYE SCH (21:13)
[2022-11-16] MEDS: OMEGA-3 FATTY ACIDS/FISH OIL CAPSULE GT SCH (21:13)
[2022-11-16] MEDS: NUTRISOURCE FIBER 4 GM PACKET GT SCH (21:15)
[2022-11-17] VITALS (9 sets, daily range): TEMP 97.3–97.4; O2SAT 98–99
[2022-11-17] MEDS: JEVITY 1.2 1000 ML LIQUID GT PRN ×2 (00:13→22:42)
[2022-11-17] MEDS: ALBUTEROL SULFATE 2.5 MG/3 ML NEBU NEB SCH ×4 (01:53→19:15)
[2022-11-17] MEDS: IPRATROPIUM BROMIDE 0.5 MG/2.5 ML NEBU NEB SCH ×4 (01:53→19:15)
[2022-11-17] MEDS: OMEPRAZOLE 20 MG CAPSULE.DR GT SCH (05:48)
[2022-11-17] MEDS: ACIDOPHILUS/BULGARICUS CHEW TAB GT SCH ×3 (05:48→21:31)
[2022-11-17] MEDS: VALPROIC ACID 250 MG/5 ML LIQUID UDC GT SCH ×3 (05:48→21:31)
[2022-11-17] MEDS: HYDROGEN PEROXIDE 3% 118 ML BOTTLE TP SCH ×2 (07:35→19:15)
[2022-11-17] MEDS: DOXYCYCLINE HYCLATE 100 MG TABLET GT SCH ×2 (08:36→17:00)
[2022-11-17] MEDS: BENZOYL PEROXIDE 10% GEL 60 GM TUBE TP SCH ×2 (08:36→20:01)
[2022-11-17] MEDS: BACLOFEN 20 MG TABLET GT SCH ×3 (08:36→20:01)
[2022-11-17] MEDS: POLYVINYL ALCOHOL OPHT DROPS 15 ML BOTTLE EACHEYE SCH ×4 (08:36→20:00)
[2022-11-17] MEDS: PHENOBARBITAL 32.4 MG TABLET GT SCH ×2 (08:36→20:01)
[2022-11-17] MEDS: REMEDY ESSENTIAL ZINC PASTE 113 GM TP SCH ×2 (08:36→20:01)
[2022-11-17] MEDS: NUTRISOURCE FIBER 4 GM PACKET GT SCH (20:01)
[2022-11-17] MEDS: OMEGA-3 FATTY ACIDS/FISH OIL CAPSULE GT SCH (20:01)
[2022-11-17] MEDS: LATANOPROST OPHT DROP 2.5 ML BOTTLE EACHEYE SCH (20:01)
[2022-11-18] VITALS (10 sets, daily range): TEMP 97–98.1; O2SAT 98–99
[2022-11-18] MEDS: IPRATROPIUM BROMIDE 0.5 MG/2.5 ML NEBU NEB SCH ×4 (01:51→19:19)
[2022-11-18] MEDS: ALBUTEROL SULFATE 2.5 MG/3 ML NEBU NEB SCH ×4 (01:52→19:19)
[2022-11-18] MEDS: ACIDOPHILUS/BULGARICUS CHEW TAB GT SCH ×3 (05:30→22:00)
[2022-11-18] MEDS: OMEPRAZOLE 20 MG CAPSULE.DR GT SCH (05:30)
[2022-11-18] MEDS: VALPROIC ACID 250 MG/5 ML LIQUID UDC GT SCH ×3 (05:30→22:00)
[2022-11-18] MEDS: BENZOYL PEROXIDE 10% GEL 60 GM TUBE TP SCH ×2 (09:17→21:00)
[2022-11-18] MEDS: DOXYCYCLINE HYCLATE 100 MG TABLET GT SCH ×2 (09:17→16:22)
[2022-11-18] MEDS: POLYVINYL ALCOHOL OPHT DROPS 15 ML BOTTLE EACHEYE SCH ×4 (09:17→21:00)
[2022-11-18] MEDS: REMEDY ESSENTIAL ZINC PASTE 113 GM TP SCH ×2 (09:17→21:00)
[2022-11-18] MEDS: BACLOFEN 20 MG TABLET GT SCH ×3 (09:17→21:00)
[2022-11-18] MEDS: PHENOBARBITAL 32.4 MG TABLET GT SCH ×2 (09:17→21:00)
[2022-11-18] MEDS: HYDROGEN PEROXIDE 3% 118 ML BOTTLE TP SCH ×2 (09:24→19:19)
[2022-11-18] MEDS: JEVITY 1.2 1000 ML LIQUID GT PRN (19:35)
[2022-11-18] MEDS: NUTRISOURCE FIBER 4 GM PACKET GT SCH (21:00)
[2022-11-18] MEDS: LATANOPROST OPHT DROP 2.5 ML BOTTLE EACHEYE SCH (21:00)
[2022-11-18] MEDS: OMEGA-3 FATTY ACIDS/FISH OIL CAPSULE GT SCH (21:00)
[2022-11-19] VITALS (10 sets, daily range): TEMP 97.8–98.1; O2SAT 98–99
[2022-11-19] MEDS: ALBUTEROL SULFATE 2.5 MG/3 ML NEBU NEB SCH ×4 (01:23→19:30)
[2022-11-19] MEDS: IPRATROPIUM BROMIDE 0.5 MG/2.5 ML NEBU NEB SCH ×4 (01:23→19:30)
[2022-11-19] MEDS: ACIDOPHILUS/BULGARICUS CHEW TAB GT SCH ×3 (06:00→22:00)
[2022-11-19] MEDS: VALPROIC ACID 250 MG/5 ML LIQUID UDC GT SCH ×3 (06:54→22:00)
[2022-11-19] MEDS: OMEPRAZOLE 20 MG CAPSULE.DR GT SCH (06:54)
[2022-11-19] MEDS: POLYVINYL ALCOHOL OPHT DROPS 15 ML BOTTLE EACHEYE SCH ×4 (08:35→21:00)
[2022-11-19] MEDS: BACLOFEN 20 MG TABLET GT SCH ×3 (08:35→21:00)
[2022-11-19] MEDS: PHENOBARBITAL 32.4 MG TABLET GT SCH ×2 (08:35→21:00)
[2022-11-19] MEDS: REMEDY ESSENTIAL ZINC PASTE 113 GM TP SCH ×2 (08:36→21:00)
[2022-11-19] MEDS: BENZOYL PEROXIDE 10% GEL 60 GM TUBE TP SCH ×2 (08:36→21:00)
[2022-11-19] MEDS: DOXYCYCLINE HYCLATE 100 MG TABLET GT SCH ×2 (08:36→16:31)
[2022-11-19] MEDS: HYDROGEN PEROXIDE 3% 118 ML BOTTLE TP SCH ×2 (08:39→21:05)
[2022-11-19] MEDS: JEVITY 1.2 1000 ML LIQUID GT PRN (12:04)
[2022-11-19] MEDS: OMEGA-3 FATTY ACIDS/FISH OIL CAPSULE GT SCH (21:00)
[2022-11-19] MEDS: LATANOPROST OPHT DROP 2.5 ML BOTTLE EACHEYE SCH (21:00)
[2022-11-19] MEDS: NUTRISOURCE FIBER 4 GM PACKET GT SCH (21:00)
[2022-11-20] VITALS (10 sets, daily range): TEMP 97.2–97.7; O2SAT 98–99
[2022-11-20] MEDS: ALBUTEROL SULFATE 2.5 MG/3 ML NEBU NEB SCH ×4 (01:49→19:32)
[2022-11-20] MEDS: IPRATROPIUM BROMIDE 0.5 MG/2.5 ML NEBU NEB SCH ×4 (01:49→19:32)
[2022-11-20] MEDS: ACIDOPHILUS/BULGARICUS CHEW TAB GT SCH ×3 (06:00→22:51)
[2022-11-20] MEDS: VALPROIC ACID 250 MG/5 ML LIQUID UDC GT SCH ×3 (06:00→22:51)
[2022-11-20] MEDS: OMEPRAZOLE 20 MG CAPSULE.DR GT SCH (06:00)
[2022-11-20] MEDS: BACLOFEN 20 MG TABLET GT SCH ×3 (08:06→20:18)
[2022-11-20] MEDS: POLYVINYL ALCOHOL OPHT DROPS 15 ML BOTTLE EACHEYE SCH ×4 (08:06→20:10)
[2022-11-20] MEDS: PHENOBARBITAL 32.4 MG TABLET GT SCH ×2 (08:06→20:18)
[2022-11-20] MEDS: DOXYCYCLINE HYCLATE 100 MG TABLET GT SCH ×2 (08:06→16:16)
[2022-11-20] MEDS: BENZOYL PEROXIDE 10% GEL 60 GM TUBE TP SCH ×2 (08:07→20:11)
[2022-11-20] MEDS: REMEDY ESSENTIAL ZINC PASTE 113 GM TP SCH ×2 (08:07→20:11)
[2022-11-20] MEDS: HYDROGEN PEROXIDE 3% 118 ML BOTTLE TP SCH ×2 (09:53→19:32)
[2022-11-20] MEDS: OMEGA-3 FATTY ACIDS/FISH OIL CAPSULE GT SCH (20:11)
[2022-11-20] MEDS: NUTRISOURCE FIBER 4 GM PACKET GT SCH (20:11)
[2022-11-20] MEDS: LATANOPROST OPHT DROP 2.5 ML BOTTLE EACHEYE SCH (20:11)
[2022-11-21] VITALS (10 sets, daily range): TEMP 97.5–97.8; O2SAT 97–99
[2022-11-21] MEDS: ALBUTEROL SULFATE 2.5 MG/3 ML NEBU NEB SCH ×4 (01:18→19:30)
[2022-11-21] MEDS: IPRATROPIUM BROMIDE 0.5 MG/2.5 ML NEBU NEB SCH ×4 (01:18→19:30)
[2022-11-21] MEDS: ACIDOPHILUS/BULGARICUS CHEW TAB GT SCH ×3 (05:54→21:25)
[2022-11-21] MEDS: VALPROIC ACID 250 MG/5 ML LIQUID UDC GT SCH ×3 (05:54→21:24)
[2022-11-21] MEDS: OMEPRAZOLE 20 MG CAPSULE.DR GT SCH (05:54)
[2022-11-21] MEDS: JEVITY 1.2 1000 ML LIQUID GT PRN (05:55)
[2022-11-21] MEDS: HYDROGEN PEROXIDE 3% 118 ML BOTTLE TP SCH ×2 (07:31→21:56)
[2022-11-21] MEDS: POLYVINYL ALCOHOL OPHT DROPS 15 ML BOTTLE EACHEYE SCH ×4 (08:39→21:22)
[2022-11-21] MEDS: PHENOBARBITAL 32.4 MG TABLET GT SCH ×2 (08:39→21:24)
[2022-11-21] MEDS: BACLOFEN 20 MG TABLET GT SCH ×3 (08:39→21:26)
[2022-11-21] MEDS: REMEDY ESSENTIAL ZINC PASTE 113 GM TP SCH ×2 (08:40→21:24)
[2022-11-21] MEDS: BENZOYL PEROXIDE 10% GEL 60 GM TUBE TP SCH ×2 (08:40→21:24)
[2022-11-21] MEDS: DOXYCYCLINE HYCLATE 100 MG TABLET GT SCH ×2 (08:40→16:16)
[2022-11-21] MEDS: LATANOPROST OPHT DROP 2.5 ML BOTTLE EACHEYE SCH (21:22)
[2022-11-21] MEDS: OMEGA-3 FATTY ACIDS/FISH OIL CAPSULE GT SCH (21:22)
[2022-11-21] MEDS: NUTRISOURCE FIBER 4 GM PACKET GT SCH (21:23)
[2022-11-22] VITALS (10 sets, daily range): TEMP 97–98.4; O2SAT 97–99
[2022-11-22] MEDS: IPRATROPIUM BROMIDE 0.5 MG/2.5 ML NEBU NEB SCH ×4 (01:53→20:29)
[2022-11-22] MEDS: ALBUTEROL SULFATE 2.5 MG/3 ML NEBU NEB SCH ×4 (01:53→20:29)
[2022-11-22] MEDS: JEVITY 1.2 1000 ML LIQUID GT PRN (03:35)
[2022-11-22] MEDS: VALPROIC ACID 250 MG/5 ML LIQUID UDC GT SCH ×3 (05:12→22:01)
[2022-11-22] MEDS: ACIDOPHILUS/BULGARICUS CHEW TAB GT SCH ×3 (05:12→22:02)
[2022-11-22] MEDS: OMEPRAZOLE 20 MG CAPSULE.DR GT SCH (05:12)
[2022-11-22] MEDS: POLYVINYL ALCOHOL OPHT DROPS 15 ML BOTTLE EACHEYE SCH ×4 (08:18→21:00)
[2022-11-22] MEDS: PHENOBARBITAL 32.4 MG TABLET GT SCH ×2 (08:18→21:00)
[2022-11-22] MEDS: DOXYCYCLINE HYCLATE 100 MG TABLET GT SCH ×2 (08:19→17:08)
[2022-11-22] MEDS: REMEDY ESSENTIAL ZINC PASTE 113 GM TP SCH ×2 (08:19→21:00)
[2022-11-22] MEDS: BENZOYL PEROXIDE 10% GEL 60 GM TUBE TP SCH ×2 (08:19→21:00)
[2022-11-22] MEDS: BACLOFEN 20 MG TABLET GT SCH ×3 (08:20→21:00)
[2022-11-22] MEDS: HYDROGEN PEROXIDE 3% 118 ML BOTTLE TP SCH ×2 (08:57→20:29)
[2022-11-22] MEDS: OMEGA-3 FATTY ACIDS/FISH OIL CAPSULE GT SCH (21:00)
[2022-11-22] MEDS: LATANOPROST OPHT DROP 2.5 ML BOTTLE EACHEYE SCH (21:00)
[2022-11-22] MEDS: NUTRISOURCE FIBER 4 GM PACKET GT SCH (21:00)
[2022-11-23] VITALS (10 sets, daily range): TEMP 97.2–98.2; O2SAT 97–99
[2022-11-23] MEDS: JEVITY 1.2 1000 ML LIQUID GT PRN (00:25)
[2022-11-23] MEDS: IPRATROPIUM BROMIDE 0.5 MG/2.5 ML NEBU NEB SCH ×4 (01:21→19:22)
[2022-11-23] MEDS: ALBUTEROL SULFATE 2.5 MG/3 ML NEBU NEB SCH ×4 (01:21→19:22)
[2022-11-23] MEDS: VALPROIC ACID 250 MG/5 ML LIQUID UDC GT SCH ×3 (06:19→22:00)
[2022-11-23] MEDS: ACIDOPHILUS/BULGARICUS CHEW TAB GT SCH ×3 (06:19→22:00)
[2022-11-23] MEDS: OMEPRAZOLE 20 MG CAPSULE.DR GT SCH (06:19)
[2022-11-23] MEDS: HYDROGEN PEROXIDE 3% 118 ML BOTTLE TP SCH ×2 (09:00→19:22)
[2022-11-23] MEDS: DOXYCYCLINE HYCLATE 100 MG TABLET GT SCH (09:51)
[2022-11-23] MEDS: BACLOFEN 20 MG TABLET GT SCH ×3 (09:51→20:08)
[2022-11-23] MEDS: POLYVINYL ALCOHOL OPHT DROPS 15 ML BOTTLE EACHEYE SCH ×4 (09:51→20:01)
[2022-11-23] MEDS: PHENOBARBITAL 32.4 MG TABLET GT SCH ×2 (09:51→20:08)
[2022-11-23] MEDS: BENZOYL PEROXIDE 10% GEL 60 GM TUBE TP SCH ×2 (09:52→20:03)
[2022-11-23] MEDS: REMEDY ESSENTIAL ZINC PASTE 113 GM TP SCH ×2 (09:52→20:03)
[2022-11-23] MEDS: LATANOPROST OPHT DROP 2.5 ML BOTTLE EACHEYE SCH (20:01)
[2022-11-23] MEDS: OMEGA-3 FATTY ACIDS/FISH OIL CAPSULE GT SCH (20:01)
[2022-11-23] MEDS: NUTRISOURCE FIBER 4 GM PACKET GT SCH (20:02)
[2022-11-24] VITALS (10 sets, daily range): TEMP 97–98.7; O2SAT 97–99
[2022-11-24] MEDS: IPRATROPIUM BROMIDE 0.5 MG/2.5 ML NEBU NEB SCH ×4 (01:38→19:07)
[2022-11-24] MEDS: ALBUTEROL SULFATE 2.5 MG/3 ML NEBU NEB SCH ×4 (01:39→19:07)
[2022-11-24] MEDS: ACIDOPHILUS/BULGARICUS CHEW TAB GT SCH ×3 (06:28→22:05)
[2022-11-24] MEDS: OMEPRAZOLE 20 MG CAPSULE.DR GT SCH (06:28)
[2022-11-24] MEDS: VALPROIC ACID 250 MG/5 ML LIQUID UDC GT SCH ×3 (06:28→22:05)
[2022-11-24] MEDS: HYDROGEN PEROXIDE 3% 118 ML BOTTLE TP SCH ×2 (07:35→19:07)
[2022-11-24] MEDS: BACLOFEN 20 MG TABLET GT SCH ×3 (08:25→21:00)
[2022-11-24] MEDS: BENZOYL PEROXIDE 10% GEL 60 GM TUBE TP SCH ×2 (08:25→21:00)
[2022-11-24] MEDS: PHENOBARBITAL 32.4 MG TABLET GT SCH ×2 (08:25→21:00)
[2022-11-24] MEDS: REMEDY ESSENTIAL ZINC PASTE 113 GM TP SCH ×2 (08:26→21:00)
[2022-11-24] MEDS: POLYVINYL ALCOHOL OPHT DROPS 15 ML BOTTLE EACHEYE SCH ×4 (09:00→21:00)
[2022-11-24] MEDS: LATANOPROST OPHT DROP 2.5 ML BOTTLE EACHEYE SCH (21:00)
[2022-11-24] MEDS: NUTRISOURCE FIBER 4 GM PACKET GT SCH (21:00)
[2022-11-24] MEDS: OMEGA-3 FATTY ACIDS/FISH OIL CAPSULE GT SCH (21:00)
[2022-11-25] VITALS (10 sets, daily range): TEMP 97.8–98.4; O2SAT 97–99
[2022-11-25] MEDS: ALBUTEROL SULFATE 2.5 MG/3 ML NEBU NEB SCH ×4 (01:05→19:05)
[2022-11-25] MEDS: IPRATROPIUM BROMIDE 0.5 MG/2.5 ML NEBU NEB SCH ×4 (01:05→19:05)
[2022-11-25] MEDS: VALPROIC ACID 250 MG/5 ML LIQUID UDC GT SCH ×3 (05:55→22:24)
[2022-11-25] MEDS: OMEPRAZOLE 20 MG CAPSULE.DR GT SCH (05:55)
[2022-11-25] MEDS: ACIDOPHILUS/BULGARICUS CHEW TAB GT SCH ×3 (05:55→22:24)
[2022-11-25] MEDS: HYDROGEN PEROXIDE 3% 118 ML BOTTLE TP SCH ×2 (07:22→19:05)
[2022-11-25] MEDS: REMEDY ESSENTIAL ZINC PASTE 113 GM TP SCH ×2 (08:21→20:35)
[2022-11-25] MEDS: BENZOYL PEROXIDE 10% GEL 60 GM TUBE TP SCH ×2 (08:22→20:34)
[2022-11-25] MEDS: POLYVINYL ALCOHOL OPHT DROPS 15 ML BOTTLE EACHEYE SCH ×4 (08:23→20:35)
[2022-11-25] MEDS: BACLOFEN 20 MG TABLET GT SCH ×3 (08:33→20:31)
[2022-11-25] MEDS: PHENOBARBITAL 32.4 MG TABLET GT SCH ×2 (08:34→20:31)
[2022-11-25] MEDS ORDERED: DOXYCYCLINE HYCLATE 100 MG TABLET GT SCH (09:00)
[2022-11-25] MEDS: JEVITY 1.2 1000 ML LIQUID GT PRN (13:34)
[2022-11-25] MEDS: NUTRISOURCE FIBER 4 GM PACKET GT SCH (20:32)
[2022-11-25] MEDS: LATANOPROST OPHT DROP 2.5 ML BOTTLE EACHEYE SCH (20:35)
[2022-11-25] MEDS: OMEGA-3 FATTY ACIDS/FISH OIL CAPSULE GT SCH (20:35)
[2022-11-26] VITALS (11 sets, daily range): BP systolic 99; BP diastolic 56; TEMP 97.6–98.2; O2SAT 97–99
[2022-11-26] MEDS: IPRATROPIUM BROMIDE 0.5 MG/2.5 ML NEBU NEB SCH ×4 (01:25→20:08)
[2022-11-26] MEDS: ALBUTEROL SULFATE 2.5 MG/3 ML NEBU NEB SCH ×4 (01:25→20:08)
[2022-11-26] MEDS: VALPROIC ACID 250 MG/5 ML LIQUID UDC GT SCH ×3 (05:22→22:11)
[2022-11-26] MEDS: ACIDOPHILUS/BULGARICUS CHEW TAB GT SCH ×3 (05:22→22:11)
[2022-11-26] MEDS: DOXYCYCLINE HYCLATE 100 MG TABLET GT SCH (05:22)
[2022-11-26] MEDS: OMEPRAZOLE 20 MG CAPSULE.DR GT SCH (05:22)
[2022-11-26] MEDS: BACLOFEN 20 MG TABLET GT SCH ×3 (08:28→20:22)
[2022-11-26] MEDS: REMEDY ESSENTIAL ZINC PASTE 113 GM TP SCH ×2 (08:28→20:22)
[2022-11-26] MEDS: BENZOYL PEROXIDE 10% GEL 60 GM TUBE TP SCH ×2 (08:28→20:22)
[2022-11-26] MEDS: PHENOBARBITAL 32.4 MG TABLET GT SCH ×2 (08:28→20:22)
[2022-11-26] MEDS: POLYVINYL ALCOHOL OPHT DROPS 15 ML BOTTLE EACHEYE SCH ×4 (08:28→20:21)
[2022-11-26] MEDS: HYDROGEN PEROXIDE 3% 118 ML BOTTLE TP SCH ×2 (09:41→20:08)
[2022-11-26] MEDS: JEVITY 1.2 1000 ML LIQUID GT PRN (11:47)
[2022-11-26] MEDS: OMEGA-3 FATTY ACIDS/FISH OIL CAPSULE GT SCH (20:21)
[2022-11-26] MEDS: LATANOPROST OPHT DROP 2.5 ML BOTTLE EACHEYE SCH (20:21)
[2022-11-26] MEDS: NUTRISOURCE FIBER 4 GM PACKET GT SCH (20:22)
[2022-11-27] VITALS (10 sets, daily range): TEMP 97.2–98.1; O2SAT 97–99
[2022-11-27] MEDS: IPRATROPIUM BROMIDE 0.5 MG/2.5 ML NEBU NEB SCH ×4 (01:17→20:10)
[2022-11-27] MEDS: ALBUTEROL SULFATE 2.5 MG/3 ML NEBU NEB SCH ×4 (01:17→20:10)
[2022-11-27] MEDS: OMEPRAZOLE 20 MG CAPSULE.DR GT SCH (05:25)
[2022-11-27] MEDS: VALPROIC ACID 250 MG/5 ML LIQUID UDC GT SCH ×3 (05:25→22:17)
[2022-11-27] MEDS: ACIDOPHILUS/BULGARICUS CHEW TAB GT SCH ×3 (05:25→22:17)
[2022-11-27] MEDS: DOXYCYCLINE HYCLATE 100 MG TABLET GT SCH (05:25)
[2022-11-27] MEDS: JEVITY 1.2 1000 ML LIQUID GT PRN (08:15)
[2022-11-27] MEDS: POLYVINYL ALCOHOL OPHT DROPS 15 ML BOTTLE EACHEYE SCH ×4 (08:18→21:00)
[2022-11-27] MEDS: REMEDY ESSENTIAL ZINC PASTE 113 GM TP SCH ×2 (08:20→21:00)
[2022-11-27] MEDS: BACLOFEN 20 MG TABLET GT SCH ×3 (08:27→21:00)
[2022-11-27] MEDS: BENZOYL PEROXIDE 10% GEL 60 GM TUBE TP SCH ×2 (08:27→21:00)
[2022-11-27] MEDS: HYDROGEN PEROXIDE 3% 118 ML BOTTLE TP SCH ×2 (08:27→21:15)
[2022-11-27] MEDS: PHENOBARBITAL 32.4 MG TABLET GT SCH ×2 (08:27→21:00)
[2022-11-27] MEDS: LATANOPROST OPHT DROP 2.5 ML BOTTLE EACHEYE SCH (21:00)
[2022-11-27] MEDS: NUTRISOURCE FIBER 4 GM PACKET GT SCH (21:00)
[2022-11-27] MEDS: OMEGA-3 FATTY ACIDS/FISH OIL CAPSULE GT SCH (21:00)
[2022-11-28] VITALS (10 sets, daily range): TEMP 97–97.4; O2SAT 97–99
[2022-11-28] MEDS: IPRATROPIUM BROMIDE 0.5 MG/2.5 ML NEBU NEB SCH ×4 (01:46→19:11)
[2022-11-28] MEDS: ALBUTEROL SULFATE 2.5 MG/3 ML NEBU NEB SCH ×4 (01:46→19:11)
[2022-11-28] MEDS: DOXYCYCLINE HYCLATE 100 MG TABLET GT SCH (06:56)
[2022-11-28] MEDS: VALPROIC ACID 250 MG/5 ML LIQUID UDC GT SCH ×3 (06:56→21:22)
[2022-11-28] MEDS: ACIDOPHILUS/BULGARICUS CHEW TAB GT SCH ×3 (06:56→21:22)
[2022-11-28] MEDS: OMEPRAZOLE 20 MG CAPSULE.DR GT SCH (06:56)
[2022-11-28] MEDS: JEVITY 1.2 1000 ML LIQUID GT PRN (07:00)
[2022-11-28] MEDS: HYDROGEN PEROXIDE 3% 118 ML BOTTLE TP SCH ×2 (07:35→19:11)
[2022-11-28] MEDS: BACLOFEN 20 MG TABLET GT SCH ×3 (09:54→21:19)
[2022-11-28] MEDS: POLYVINYL ALCOHOL OPHT DROPS 15 ML BOTTLE EACHEYE SCH ×4 (09:55→21:18)
[2022-11-28] MEDS: PHENOBARBITAL 32.4 MG TABLET GT SCH ×2 (09:55→21:21)
[2022-11-28] MEDS: REMEDY ESSENTIAL ZINC PASTE 113 GM TP SCH ×2 (09:57→21:22)
[2022-11-28] MEDS: BENZOYL PEROXIDE 10% GEL 60 GM TUBE TP SCH ×2 (10:14→21:21)
[2022-11-28] MEDS: OMEGA-3 FATTY ACIDS/FISH OIL CAPSULE GT SCH (21:19)
[2022-11-28] MEDS: LATANOPROST OPHT DROP 2.5 ML BOTTLE EACHEYE SCH (21:19)
[2022-11-28] MEDS: NUTRISOURCE FIBER 4 GM PACKET GT SCH (21:21)
[2022-11-29] VITALS (10 sets, daily range): TEMP 97.5–97.6; O2SAT 97–99
[2022-11-29] MEDS: IPRATROPIUM BROMIDE 0.5 MG/2.5 ML NEBU NEB SCH ×4 (02:21→20:33)
[2022-11-29] MEDS: ALBUTEROL SULFATE 2.5 MG/3 ML NEBU NEB SCH ×4 (02:22→20:33)
[2022-11-29] MEDS: VALPROIC ACID 250 MG/5 ML LIQUID UDC GT SCH ×3 (06:50→21:18)
[2022-11-29] MEDS: OMEPRAZOLE 20 MG CAPSULE.DR GT SCH (06:50)
[2022-11-29] MEDS: DOXYCYCLINE HYCLATE 100 MG TABLET GT SCH (06:50)
[2022-11-29] MEDS: ACIDOPHILUS/BULGARICUS CHEW TAB GT SCH ×3 (06:50→21:18)
[2022-11-29] MEDS: HYDROGEN PEROXIDE 3% 118 ML BOTTLE TP SCH ×2 (08:19→21:00)
[2022-11-29] MEDS: POLYVINYL ALCOHOL OPHT DROPS 15 ML BOTTLE EACHEYE SCH ×4 (08:45→21:15)
[2022-11-29] MEDS: PHENOBARBITAL 32.4 MG TABLET GT SCH ×2 (08:45→21:17)
[2022-11-29] MEDS: BACLOFEN 20 MG TABLET GT SCH ×3 (08:45→21:15)
[2022-11-29] MEDS: REMEDY ESSENTIAL ZINC PASTE 113 GM TP SCH ×2 (08:45→21:18)
[2022-11-29] MEDS: BENZOYL PEROXIDE 10% GEL 60 GM TUBE TP SCH ×2 (08:45→21:17)
[2022-11-29] MEDS: OMEGA-3 FATTY ACIDS/FISH OIL CAPSULE GT SCH (21:15)
[2022-11-29] MEDS: LATANOPROST OPHT DROP 2.5 ML BOTTLE EACHEYE SCH (21:15)
[2022-11-29] MEDS: NUTRISOURCE FIBER 4 GM PACKET GT SCH (21:15)
[2022-11-30] VITALS (10 sets, daily range): TEMP 97.4–98.3; O2SAT 98–99
[2022-11-30] MEDS: IPRATROPIUM BROMIDE 0.5 MG/2.5 ML NEBU NEB SCH ×4 (01:55→19:42)
[2022-11-30] MEDS: ALBUTEROL SULFATE 2.5 MG/3 ML NEBU NEB SCH ×4 (01:55→19:42)
[2022-11-30] MEDS: VALPROIC ACID 250 MG/5 ML LIQUID UDC GT SCH ×3 (05:43→21:37)
[2022-11-30] MEDS: OMEPRAZOLE 20 MG CAPSULE.DR GT SCH (05:43)
[2022-11-30] MEDS: JEVITY 1.2 1000 ML LIQUID GT PRN (05:43)
[2022-11-30] MEDS: DOXYCYCLINE HYCLATE 100 MG TABLET GT SCH (05:43)
[2022-11-30] MEDS: ACIDOPHILUS/BULGARICUS CHEW TAB GT SCH ×3 (05:43→21:37)
[2022-11-30] MEDS: HYDROGEN PEROXIDE 3% 118 ML BOTTLE TP SCH ×2 (07:27→21:00)
[2022-11-30] MEDS: PHENOBARBITAL 32.4 MG TABLET GT SCH ×2 (09:01→21:36)
[2022-11-30] MEDS: BACLOFEN 20 MG TABLET GT SCH ×3 (09:01→21:36)
[2022-11-30] MEDS: REMEDY ESSENTIAL ZINC PASTE 113 GM TP SCH ×2 (09:01→21:36)
[2022-11-30] MEDS: BENZOYL PEROXIDE 10% GEL 60 GM TUBE TP SCH ×2 (09:01→21:36)
[2022-11-30] MEDS: POLYVINYL ALCOHOL OPHT DROPS 15 ML BOTTLE EACHEYE SCH ×4 (09:01→21:35)
[2022-11-30] MEDS: LATANOPROST OPHT DROP 2.5 ML BOTTLE EACHEYE SCH (21:35)
[2022-11-30] MEDS: OMEGA-3 FATTY ACIDS/FISH OIL CAPSULE GT SCH (21:36)
[2022-11-30] MEDS: NUTRISOURCE FIBER 4 GM PACKET GT SCH (21:36)
[2022-12-01] VITALS (10 sets, daily range): TEMP 97.4–98.4; O2SAT 98–99
[2022-12-01] MEDS: JEVITY 1.2 1000 ML LIQUID GT PRN ×2 (00:31→17:52)
[2022-12-01] MEDS: ALBUTEROL SULFATE 2.5 MG/3 ML NEBU NEB SCH ×4 (01:20→19:45)
[2022-12-01] MEDS: IPRATROPIUM BROMIDE 0.5 MG/2.5 ML NEBU NEB SCH ×4 (01:20→19:45)
[2022-12-01] MEDS: ACIDOPHILUS/BULGARICUS CHEW TAB GT SCH ×3 (05:44→22:07)
[2022-12-01] MEDS: DOXYCYCLINE HYCLATE 100 MG TABLET GT SCH (05:44)
[2022-12-01] MEDS: VALPROIC ACID 250 MG/5 ML LIQUID UDC GT SCH ×3 (05:44→22:07)
[2022-12-01] MEDS: OMEPRAZOLE 20 MG CAPSULE.DR GT SCH (05:44)
[2022-12-01] MEDS: HYDROGEN PEROXIDE 3% 118 ML BOTTLE TP SCH ×2 (07:35→21:00)
[2022-12-01] MEDS: BACLOFEN 20 MG TABLET GT SCH ×3 (09:35→21:00)
[2022-12-01] MEDS: PHENOBARBITAL 32.4 MG TABLET GT SCH ×2 (09:45→21:00)
[2022-12-01] MEDS: POLYVINYL ALCOHOL OPHT DROPS 15 ML BOTTLE EACHEYE SCH ×4 (09:45→21:00)
[2022-12-01] MEDS: REMEDY ESSENTIAL ZINC PASTE 113 GM TP SCH ×2 (09:46→21:00)
[2022-12-01] MEDS: BENZOYL PEROXIDE 10% GEL 60 GM TUBE TP SCH ×2 (09:46→21:00)
[2022-12-01] MEDS: OMEGA-3 FATTY ACIDS/FISH OIL CAPSULE GT SCH (21:00)
[2022-12-01] MEDS: NUTRISOURCE FIBER 4 GM PACKET GT SCH (21:00)
[2022-12-01] MEDS: LATANOPROST OPHT DROP 2.5 ML BOTTLE EACHEYE SCH (21:00)
[2022-12-02] VITALS (10 sets, daily range): TEMP 97.5–98.3; O2SAT 98–99
[2022-12-02] MEDS: ALBUTEROL SULFATE 2.5 MG/3 ML NEBU NEB SCH ×4 (02:12→19:16)
[2022-12-02] MEDS: IPRATROPIUM BROMIDE 0.5 MG/2.5 ML NEBU NEB SCH ×4 (02:12→19:16)
[2022-12-02] MEDS: ACIDOPHILUS/BULGARICUS CHEW TAB GT SCH ×3 (05:09→21:26)
[2022-12-02] MEDS: DOXYCYCLINE HYCLATE 100 MG TABLET GT SCH (05:09)
[2022-12-02] MEDS: VALPROIC ACID 250 MG/5 ML LIQUID UDC GT SCH ×3 (05:09→21:26)
[2022-12-02] MEDS: OMEPRAZOLE 20 MG CAPSULE.DR GT SCH (05:09)
[2022-12-02] MEDS: POLYVINYL ALCOHOL OPHT DROPS 15 ML BOTTLE EACHEYE SCH ×4 (08:29→21:26)
[2022-12-02] MEDS: BACLOFEN 20 MG TABLET GT SCH ×3 (08:29→21:26)
[2022-12-02] MEDS: PHENOBARBITAL 32.4 MG TABLET GT SCH ×2 (08:29→21:26)
[2022-12-02] MEDS: BENZOYL PEROXIDE 10% GEL 60 GM TUBE TP SCH ×2 (08:30→21:26)
[2022-12-02] MEDS: REMEDY ESSENTIAL ZINC PASTE 113 GM TP SCH ×2 (08:30→21:26)
[2022-12-02] MEDS: HYDROGEN PEROXIDE 3% 118 ML BOTTLE TP SCH ×2 (09:00→19:16)
[2022-12-02] MEDS: LATANOPROST OPHT DROP 2.5 ML BOTTLE EACHEYE SCH (21:26)
[2022-12-02] MEDS: NUTRISOURCE FIBER 4 GM PACKET GT SCH (21:26)
[2022-12-02] MEDS: OMEGA-3 FATTY ACIDS/FISH OIL CAPSULE GT SCH (21:26)
[2022-12-03] VITALS (10 sets, daily range): TEMP 97.6–97.9; O2SAT 98–99
[2022-12-03] MEDS: ALBUTEROL SULFATE 2.5 MG/3 ML NEBU NEB SCH ×4 (01:30→19:16)
[2022-12-03] MEDS: IPRATROPIUM BROMIDE 0.5 MG/2.5 ML NEBU NEB SCH ×4 (01:30→19:16)
[2022-12-03] MEDS: ACIDOPHILUS/BULGARICUS CHEW TAB GT SCH ×3 (05:42→21:46)
[2022-12-03] MEDS: OMEPRAZOLE 20 MG CAPSULE.DR GT SCH (05:42)
[2022-12-03] MEDS: VALPROIC ACID 250 MG/5 ML LIQUID UDC GT SCH ×3 (05:42→21:46)
[2022-12-03] MEDS: DOXYCYCLINE HYCLATE 100 MG TABLET GT SCH (05:46)
[2022-12-03] MEDS: HYDROGEN PEROXIDE 3% 118 ML BOTTLE TP SCH ×2 (08:15→19:16)
[2022-12-03] MEDS: PHENOBARBITAL 32.4 MG TABLET GT SCH ×2 (09:05→21:46)
[2022-12-03] MEDS: BENZOYL PEROXIDE 10% GEL 60 GM TUBE TP SCH ×2 (09:05→21:46)
[2022-12-03] MEDS: POLYVINYL ALCOHOL OPHT DROPS 15 ML BOTTLE EACHEYE SCH ×4 (09:05→21:46)
[2022-12-03] MEDS: BACLOFEN 20 MG TABLET GT SCH ×3 (09:05→21:46)
[2022-12-03] MEDS: REMEDY ESSENTIAL ZINC PASTE 113 GM TP SCH ×2 (09:05→21:46)
[2022-12-03] MEDS: NUTRISOURCE FIBER 4 GM PACKET GT SCH (21:46)
[2022-12-03] MEDS: OMEGA-3 FATTY ACIDS/FISH OIL CAPSULE GT SCH (21:46)
[2022-12-03] MEDS: LATANOPROST OPHT DROP 2.5 ML BOTTLE EACHEYE SCH (21:46)
[2022-12-04] VITALS (10 sets, daily range): TEMP 97.5–97.6; O2SAT 98–99
[2022-12-04] MEDS: IPRATROPIUM BROMIDE 0.5 MG/2.5 ML NEBU NEB SCH ×4 (01:39→19:45)
[2022-12-04] MEDS: ALBUTEROL SULFATE 2.5 MG/3 ML NEBU NEB SCH ×4 (01:39→19:45)
[2022-12-04] MEDS: OMEPRAZOLE 20 MG CAPSULE.DR GT SCH (05:56)
[2022-12-04] MEDS: VALPROIC ACID 250 MG/5 ML LIQUID UDC GT SCH ×3 (05:56→21:58)
[2022-12-04] MEDS: ACIDOPHILUS/BULGARICUS CHEW TAB GT SCH ×3 (05:56→21:58)
[2022-12-04] MEDS: DOXYCYCLINE HYCLATE 100 MG TABLET GT SCH (05:57)
[2022-12-04] MEDS: HYDROGEN PEROXIDE 3% 118 ML BOTTLE TP SCH ×2 (08:37→19:45)
[2022-12-04] MEDS: POLYVINYL ALCOHOL OPHT DROPS 15 ML BOTTLE EACHEYE SCH ×4 (09:00→21:58)
[2022-12-04] MEDS: PHENOBARBITAL 32.4 MG TABLET GT SCH ×2 (09:00→21:58)
[2022-12-04] MEDS: BACLOFEN 20 MG TABLET GT SCH ×3 (09:00→21:58)
[2022-12-04] MEDS: BENZOYL PEROXIDE 10% GEL 60 GM TUBE TP SCH ×2 (09:00→21:58)
[2022-12-04] MEDS: REMEDY ESSENTIAL ZINC PASTE 113 GM TP SCH ×2 (09:00→21:58)
[2022-12-04] MEDS: LATANOPROST OPHT DROP 2.5 ML BOTTLE EACHEYE SCH (21:58)
[2022-12-04] MEDS: NUTRISOURCE FIBER 4 GM PACKET GT SCH (21:58)
[2022-12-04] MEDS: OMEGA-3 FATTY ACIDS/FISH OIL CAPSULE GT SCH (21:58)
[2022-12-05] VITALS (10 sets, daily range): TEMP 97.5–98; O2SAT 98–99
[2022-12-05] MEDS: IPRATROPIUM BROMIDE 0.5 MG/2.5 ML NEBU NEB SCH ×4 (01:35→19:23)
[2022-12-05] MEDS: ALBUTEROL SULFATE 2.5 MG/3 ML NEBU NEB SCH ×4 (01:35→19:23)
[2022-12-05] MEDS: JEVITY 1.2 1000 ML LIQUID GT PRN (04:33)
[2022-12-05] MEDS: VALPROIC ACID 250 MG/5 ML LIQUID UDC GT SCH ×3 (05:23→22:01)
[2022-12-05] MEDS: OMEPRAZOLE 20 MG CAPSULE.DR GT SCH (05:23)
[2022-12-05] MEDS: DOXYCYCLINE HYCLATE 100 MG TABLET GT SCH (05:23)
[2022-12-05] MEDS: ACIDOPHILUS/BULGARICUS CHEW TAB GT SCH ×3 (05:23→22:01)
[2022-12-05] MEDS: POLYVINYL ALCOHOL OPHT DROPS 15 ML BOTTLE EACHEYE SCH ×4 (08:03→21:00)
[2022-12-05] MEDS: REMEDY ESSENTIAL ZINC PASTE 113 GM TP SCH ×2 (08:10→21:00)
[2022-12-05] MEDS: PHENOBARBITAL 32.4 MG TABLET GT SCH ×2 (08:20→21:00)
[2022-12-05] MEDS: BACLOFEN 20 MG TABLET GT SCH ×3 (08:20→21:00)
[2022-12-05] MEDS: HYDROGEN PEROXIDE 3% 118 ML BOTTLE TP SCH ×2 (08:27→19:23)
[2022-12-05] MEDS: BENZOYL PEROXIDE 10% GEL 60 GM TUBE TP SCH ×2 (09:00→21:00)
[2022-12-05] MEDS: OMEGA-3 FATTY ACIDS/FISH OIL CAPSULE GT SCH (21:00)
[2022-12-05] MEDS: LATANOPROST OPHT DROP 2.5 ML BOTTLE EACHEYE SCH (21:00)
[2022-12-05] MEDS: NUTRISOURCE FIBER 4 GM PACKET GT SCH (21:00)
[2022-12-06] VITALS (9 sets, daily range): TEMP 97.6–98.2; O2SAT 98–99
[2022-12-06] MEDS: IPRATROPIUM BROMIDE 0.5 MG/2.5 ML NEBU NEB SCH ×4 (01:11→19:30)
[2022-12-06] MEDS: ALBUTEROL SULFATE 2.5 MG/3 ML NEBU NEB SCH ×4 (01:11→19:30)
[2022-12-06] MEDS: OMEPRAZOLE 20 MG CAPSULE.DR GT SCH (05:59)
[2022-12-06] MEDS: ACIDOPHILUS/BULGARICUS CHEW TAB GT SCH ×3 (05:59→21:40)
[2022-12-06] MEDS: DOXYCYCLINE HYCLATE 100 MG TABLET GT SCH (05:59)
[2022-12-06] MEDS: VALPROIC ACID 250 MG/5 ML LIQUID UDC GT SCH ×3 (05:59→21:40)
[2022-12-06] MEDS: HYDROGEN PEROXIDE 3% 118 ML BOTTLE TP SCH ×2 (09:05→20:48)
[2022-12-06] MEDS: PHENOBARBITAL 32.4 MG TABLET GT SCH ×2 (09:41→21:39)
[2022-12-06] MEDS: POLYVINYL ALCOHOL OPHT DROPS 15 ML BOTTLE EACHEYE SCH ×4 (09:41→21:39)
[2022-12-06] MEDS: BENZOYL PEROXIDE 10% GEL 60 GM TUBE TP SCH ×2 (09:41→21:39)
[2022-12-06] MEDS: REMEDY ESSENTIAL ZINC PASTE 113 GM TP SCH ×2 (09:41→21:40)
[2022-12-06] MEDS: BACLOFEN 20 MG TABLET GT SCH ×3 (09:41→21:39)
[2022-12-06] MEDS: JEVITY 1.2 1000 ML LIQUID GT PRN (18:54)
[2022-12-06] MEDS: NUTRISOURCE FIBER 4 GM PACKET GT SCH (21:39)
[2022-12-06] MEDS: OMEGA-3 FATTY ACIDS/FISH OIL CAPSULE GT SCH (21:39)
[2022-12-06] MEDS: LATANOPROST OPHT DROP 2.5 ML BOTTLE EACHEYE SCH (21:39)
[2022-12-07] VITALS (10 sets, daily range): TEMP 98–98.1; O2SAT 98–99
[2022-12-07] MEDS: IPRATROPIUM BROMIDE 0.5 MG/2.5 ML NEBU NEB SCH ×4 (02:14→19:30)
[2022-12-07] MEDS: ALBUTEROL SULFATE 2.5 MG/3 ML NEBU NEB SCH ×4 (02:14→19:30)
[2022-12-07] MEDS: OMEPRAZOLE 20 MG CAPSULE.DR GT SCH (05:56)
[2022-12-07] MEDS: VALPROIC ACID 250 MG/5 ML LIQUID UDC GT SCH ×3 (05:56→21:30)
[2022-12-07] MEDS: DOXYCYCLINE HYCLATE 100 MG TABLET GT SCH (05:56)
[2022-12-07] MEDS: ACIDOPHILUS/BULGARICUS CHEW TAB GT SCH ×3 (05:56→21:30)
[2022-12-07] MEDS: POLYVINYL ALCOHOL OPHT DROPS 15 ML BOTTLE EACHEYE SCH ×4 (08:15→21:30)
[2022-12-07] MEDS: BACLOFEN 20 MG TABLET GT SCH ×3 (08:16→21:30)
[2022-12-07] MEDS: PHENOBARBITAL 32.4 MG TABLET GT SCH ×2 (08:16→21:30)
[2022-12-07] MEDS: BENZOYL PEROXIDE 10% GEL 60 GM TUBE TP SCH ×2 (08:16→21:30)
[2022-12-07] MEDS: REMEDY ESSENTIAL ZINC PASTE 113 GM TP SCH ×2 (08:17→21:30)
[2022-12-07] MEDS: HYDROGEN PEROXIDE 3% 118 ML BOTTLE TP SCH ×2 (09:22→21:40)
[2022-12-07] MEDS: JEVITY 1.2 1000 ML LIQUID GT PRN (19:21)
[2022-12-07] MEDS: NUTRISOURCE FIBER 4 GM PACKET GT SCH (21:30)
[2022-12-07] MEDS: OMEGA-3 FATTY ACIDS/FISH OIL CAPSULE GT SCH (21:30)
[2022-12-07] MEDS: LATANOPROST OPHT DROP 2.5 ML BOTTLE EACHEYE SCH (21:30)
[2022-12-08] VITALS (11 sets, daily range): TEMP 96.8–97.6; O2SAT 97–99
[2022-12-08] MEDS: IPRATROPIUM BROMIDE 0.5 MG/2.5 ML NEBU NEB SCH ×4 (01:13→19:20)
[2022-12-08] MEDS: ALBUTEROL SULFATE 2.5 MG/3 ML NEBU NEB SCH ×4 (01:13→19:20)
[2022-12-08] MEDS: DOXYCYCLINE HYCLATE 100 MG TABLET GT SCH (06:03)
[2022-12-08] MEDS: OMEPRAZOLE 20 MG CAPSULE.DR GT SCH (06:03)
[2022-12-08] MEDS: ACIDOPHILUS/BULGARICUS CHEW TAB GT SCH ×3 (06:03→21:31)
[2022-12-08] MEDS: VALPROIC ACID 250 MG/5 ML LIQUID UDC GT SCH ×3 (06:03→21:31)
[2022-12-08] MEDS: POLYVINYL ALCOHOL OPHT DROPS 15 ML BOTTLE EACHEYE SCH ×4 (08:13→20:17)
[2022-12-08] MEDS: BACLOFEN 20 MG TABLET GT SCH ×3 (08:13→20:18)
[2022-12-08] MEDS: PHENOBARBITAL 32.4 MG TABLET GT SCH ×2 (08:13→20:18)
[2022-12-08] MEDS: BENZOYL PEROXIDE 10% GEL 60 GM TUBE TP SCH ×2 (08:14→20:19)
[2022-12-08] MEDS: REMEDY ESSENTIAL ZINC PASTE 113 GM TP SCH ×2 (09:00→20:19)
[2022-12-08] MEDS: HYDROGEN PEROXIDE 3% 118 ML BOTTLE TP SCH ×2 (09:39→19:20)
[2022-12-08] MEDS: LATANOPROST OPHT DROP 2.5 ML BOTTLE EACHEYE SCH (20:18)
[2022-12-08] MEDS: OMEGA-3 FATTY ACIDS/FISH OIL CAPSULE GT SCH (20:18)
[2022-12-08] MEDS: NUTRISOURCE FIBER 4 GM PACKET GT SCH (20:18)
[2022-12-09] VITALS (11 sets, daily range): TEMP 98.4–98.7; O2SAT 98–99
[2022-12-09] MEDS: ALBUTEROL SULFATE 2.5 MG/3 ML NEBU NEB SCH ×4 (01:24→19:27)
[2022-12-09] MEDS: IPRATROPIUM BROMIDE 0.5 MG/2.5 ML NEBU NEB SCH ×4 (01:24→19:27)
[2022-12-09] MEDS: ACIDOPHILUS/BULGARICUS CHEW TAB GT SCH ×3 (05:26→21:51)
[2022-12-09] MEDS: VALPROIC ACID 250 MG/5 ML LIQUID UDC GT SCH ×3 (05:26→21:51)
[2022-12-09] MEDS: DOXYCYCLINE HYCLATE 100 MG TABLET GT SCH (05:26)
[2022-12-09] MEDS: OMEPRAZOLE 20 MG CAPSULE.DR GT SCH (05:26)
[2022-12-09] MEDS: POLYVINYL ALCOHOL OPHT DROPS 15 ML BOTTLE EACHEYE SCH ×4 (09:27→21:50)
[2022-12-09] MEDS: PHENOBARBITAL 32.4 MG TABLET GT SCH ×2 (09:27→21:51)
[2022-12-09] MEDS: BACLOFEN 20 MG TABLET GT SCH ×3 (09:27→21:50)
[2022-12-09] MEDS: REMEDY ESSENTIAL ZINC PASTE 113 GM TP SCH ×2 (09:28→21:51)
[2022-12-09] MEDS: BENZOYL PEROXIDE 10% GEL 60 GM TUBE TP SCH ×2 (09:28→21:51)
[2022-12-09] MEDS: HYDROGEN PEROXIDE 3% 118 ML BOTTLE TP SCH ×2 (13:35→23:04)
[2022-12-09] MEDS: JEVITY 1.2 1000 ML LIQUID GT PRN (13:42)
[2022-12-09] MEDS: NUTRISOURCE FIBER 4 GM PACKET GT SCH (21:50)
[2022-12-09] MEDS: OMEGA-3 FATTY ACIDS/FISH OIL CAPSULE GT SCH (21:50)
[2022-12-09] MEDS: LATANOPROST OPHT DROP 2.5 ML BOTTLE EACHEYE SCH (21:50)
[2022-12-10] VITALS (11 sets, daily range): TEMP 97.5–98; O2SAT 98–99
[2022-12-10] MEDS: IPRATROPIUM BROMIDE 0.5 MG/2.5 ML NEBU NEB SCH ×4 (02:56→19:23)
[2022-12-10] MEDS: ALBUTEROL SULFATE 2.5 MG/3 ML NEBU NEB SCH ×4 (02:57→19:23)
[2022-12-10] MEDS: VALPROIC ACID 250 MG/5 ML LIQUID UDC GT SCH ×3 (06:22→22:00)
[2022-12-10] MEDS: OMEPRAZOLE 20 MG CAPSULE.DR GT SCH (06:22)
[2022-12-10] MEDS: DOXYCYCLINE HYCLATE 100 MG TABLET GT SCH (06:22)
[2022-12-10] MEDS: ACIDOPHILUS/BULGARICUS CHEW TAB GT SCH ×3 (06:22→22:00)
[2022-12-10] MEDS: POLYVINYL ALCOHOL OPHT DROPS 15 ML BOTTLE EACHEYE SCH ×4 (08:51→21:00)
[2022-12-10] MEDS: PHENOBARBITAL 32.4 MG TABLET GT SCH ×2 (08:51→21:00)
[2022-12-10] MEDS: BACLOFEN 20 MG TABLET GT SCH ×3 (08:51→21:00)
[2022-12-10] MEDS: BENZOYL PEROXIDE 10% GEL 60 GM TUBE TP SCH ×2 (08:52→21:00)
[2022-12-10] MEDS: REMEDY ESSENTIAL ZINC PASTE 113 GM TP SCH ×2 (08:52→21:00)
[2022-12-10] MEDS: HYDROGEN PEROXIDE 3% 118 ML BOTTLE TP SCH ×2 (09:25→21:13)
[2022-12-10] MEDS: JEVITY 1.2 1000 ML LIQUID GT PRN (11:13)
[2022-12-10] MEDS: OMEGA-3 FATTY ACIDS/FISH OIL CAPSULE GT SCH (21:00)
[2022-12-10] MEDS: NUTRISOURCE FIBER 4 GM PACKET GT SCH (21:00)
[2022-12-10] MEDS: LATANOPROST OPHT DROP 2.5 ML BOTTLE EACHEYE SCH (21:00)
[2022-12-11] VITALS (10 sets, daily range): TEMP 98–98.9; O2SAT 98–99
[2022-12-11] MEDS: ALBUTEROL SULFATE 2.5 MG/3 ML NEBU NEB SCH ×4 (01:12→19:25)
[2022-12-11] MEDS: IPRATROPIUM BROMIDE 0.5 MG/2.5 ML NEBU NEB SCH ×4 (01:12→19:25)
[2022-12-11] MEDS: JEVITY 1.2 1000 ML LIQUID GT PRN (03:19)
[2022-12-11] MEDS: OMEPRAZOLE 20 MG CAPSULE.DR GT SCH (05:57)
[2022-12-11] MEDS: ACIDOPHILUS/BULGARICUS CHEW TAB GT SCH ×3 (05:57→22:29)
[2022-12-11] MEDS: VALPROIC ACID 250 MG/5 ML LIQUID UDC GT SCH ×3 (06:00→22:29)
[2022-12-11] MEDS: DOXYCYCLINE HYCLATE 100 MG TABLET GT SCH (06:02)
[2022-12-11] MEDS: HYDROGEN PEROXIDE 3% 118 ML BOTTLE TP SCH ×2 (09:17→19:25)
[2022-12-11] MEDS: BENZOYL PEROXIDE 10% GEL 60 GM TUBE TP SCH ×2 (09:48→20:30)
[2022-12-11] MEDS: POLYVINYL ALCOHOL OPHT DROPS 15 ML BOTTLE EACHEYE SCH ×4 (09:48→20:26)
[2022-12-11] MEDS: PHENOBARBITAL 32.4 MG TABLET GT SCH ×2 (09:48→20:28)
[2022-12-11] MEDS: BACLOFEN 20 MG TABLET GT SCH ×3 (09:48→20:27)
[2022-12-11] MEDS: REMEDY ESSENTIAL ZINC PASTE 113 GM TP SCH ×2 (09:49→20:30)
[2022-12-11] MEDS: OMEGA-3 FATTY ACIDS/FISH OIL CAPSULE GT SCH (20:27)
[2022-12-11] MEDS: LATANOPROST OPHT DROP 2.5 ML BOTTLE EACHEYE SCH (20:27)
[2022-12-11] MEDS: NUTRISOURCE FIBER 4 GM PACKET GT SCH (20:28)
[2022-12-12] VITALS (10 sets, daily range): TEMP 97.6–98.2; O2SAT 98–99
[2022-12-12] MEDS: JEVITY 1.2 1000 ML LIQUID GT PRN (01:00)
[2022-12-12] MEDS: ALBUTEROL SULFATE 2.5 MG/3 ML NEBU NEB SCH ×4 (01:17→19:08)
[2022-12-12] MEDS: IPRATROPIUM BROMIDE 0.5 MG/2.5 ML NEBU NEB SCH ×4 (01:17→19:08)
[2022-12-12] MEDS: VALPROIC ACID 250 MG/5 ML LIQUID UDC GT SCH ×3 (06:07→22:00)
[2022-12-12] MEDS: ACIDOPHILUS/BULGARICUS CHEW TAB GT SCH ×3 (06:07→22:00)
[2022-12-12] MEDS: DOXYCYCLINE HYCLATE 100 MG TABLET GT SCH (06:07)
[2022-12-12] MEDS: OMEPRAZOLE 20 MG CAPSULE.DR GT SCH (06:07)
[2022-12-12] MEDS: HYDROGEN PEROXIDE 3% 118 ML BOTTLE TP SCH ×2 (07:35→19:08)
[2022-12-12] MEDS: POLYVINYL ALCOHOL OPHT DROPS 15 ML BOTTLE EACHEYE SCH ×4 (09:45→21:57)
[2022-12-12] MEDS: BENZOYL PEROXIDE 10% GEL 60 GM TUBE TP SCH ×2 (09:45→21:00)
[2022-12-12] MEDS: REMEDY ESSENTIAL ZINC PASTE 113 GM TP SCH ×2 (09:45→21:00)
[2022-12-12] MEDS: BACLOFEN 20 MG TABLET GT SCH ×3 (09:45→21:58)
[2022-12-12] MEDS: PHENOBARBITAL 32.4 MG TABLET GT SCH ×2 (09:45→21:00)
[2022-12-12] MEDS: LATANOPROST OPHT DROP 2.5 ML BOTTLE EACHEYE SCH (21:57)
[2022-12-12] MEDS: NUTRISOURCE FIBER 4 GM PACKET GT SCH (21:58)
[2022-12-12] MEDS: OMEGA-3 FATTY ACIDS/FISH OIL CAPSULE GT SCH (21:58)
[2022-12-13] VITALS (12 sets, daily range): TEMP 97.3–97.7; O2SAT 98–99
[2022-12-13] MEDS: IPRATROPIUM BROMIDE 0.5 MG/2.5 ML NEBU NEB SCH ×4 (00:58→19:20)
[2022-12-13] MEDS: ALBUTEROL SULFATE 2.5 MG/3 ML NEBU NEB SCH ×4 (00:58→19:20)
[2022-12-13] MEDS: JEVITY 1.2 1000 ML LIQUID GT PRN ×2 (01:23→21:50)
[2022-12-13] MEDS: ACIDOPHILUS/BULGARICUS CHEW TAB GT SCH ×3 (05:56→21:49)
[2022-12-13] MEDS: OMEPRAZOLE 20 MG CAPSULE.DR GT SCH (05:56)
[2022-12-13] MEDS: VALPROIC ACID 250 MG/5 ML LIQUID UDC GT SCH ×3 (05:56→21:48)
[2022-12-13] MEDS: DOXYCYCLINE HYCLATE 100 MG TABLET GT SCH (05:57)
[2022-12-13] MEDS: BENZOYL PEROXIDE 10% GEL 60 GM TUBE TP SCH ×2 (08:10→21:48)
[2022-12-13] MEDS: BACLOFEN 20 MG TABLET GT SCH ×3 (08:10→21:45)
[2022-12-13] MEDS: PHENOBARBITAL 32.4 MG TABLET GT SCH ×2 (08:10→21:48)
[2022-12-13] MEDS: HYDROGEN PEROXIDE 3% 118 ML BOTTLE TP SCH ×2 (08:10→21:02)
[2022-12-13] MEDS: REMEDY ESSENTIAL ZINC PASTE 113 GM TP SCH ×2 (08:10→21:48)
[2022-12-13] MEDS: POLYVINYL ALCOHOL OPHT DROPS 15 ML BOTTLE EACHEYE SCH ×4 (08:10→21:45)
[2022-12-13] MEDS: OMEGA-3 FATTY ACIDS/FISH OIL CAPSULE GT SCH (21:45)
[2022-12-13] MEDS: LATANOPROST OPHT DROP 2.5 ML BOTTLE EACHEYE SCH (21:45)
[2022-12-13] MEDS: NUTRISOURCE FIBER 4 GM PACKET GT SCH (21:48)
[2022-12-14] VITALS (10 sets, daily range): BP systolic 100; BP diastolic 70; TEMP 97.3–98.2; O2SAT 98–99
[2022-12-14] MEDS: IPRATROPIUM BROMIDE 0.5 MG/2.5 ML NEBU NEB SCH ×4 (00:50→19:09)
[2022-12-14] MEDS: ALBUTEROL SULFATE 2.5 MG/3 ML NEBU NEB SCH ×4 (00:50→19:09)
[2022-12-14] MEDS: VALPROIC ACID 250 MG/5 ML LIQUID UDC GT SCH ×3 (05:31→22:02)
[2022-12-14] MEDS: ACIDOPHILUS/BULGARICUS CHEW TAB GT SCH ×3 (05:32→22:03)
[2022-12-14] MEDS: OMEPRAZOLE 20 MG CAPSULE.DR GT SCH (05:33)
[2022-12-14] MEDS: DOXYCYCLINE HYCLATE 100 MG TABLET GT SCH (05:33)
[2022-12-14] MEDS: HYDROGEN PEROXIDE 3% 118 ML BOTTLE TP SCH ×2 (09:13→19:09)
[2022-12-14] MEDS: BACLOFEN 20 MG TABLET GT SCH ×3 (09:54→21:00)
[2022-12-14] MEDS: BENZOYL PEROXIDE 10% GEL 60 GM TUBE TP SCH ×2 (09:54→21:00)
[2022-12-14] MEDS: POLYVINYL ALCOHOL OPHT DROPS 15 ML BOTTLE EACHEYE SCH ×4 (09:54→21:00)
[2022-12-14] MEDS: REMEDY ESSENTIAL ZINC PASTE 113 GM TP SCH ×2 (09:54→21:00)
[2022-12-14] MEDS: PHENOBARBITAL 32.4 MG TABLET GT SCH ×2 (09:54→21:00)
[2022-12-14] MEDS: JEVITY 1.2 1000 ML LIQUID GT PRN (19:00)
[2022-12-14] MEDS: NUTRISOURCE FIBER 4 GM PACKET GT SCH (21:00)
[2022-12-14] MEDS: LATANOPROST OPHT DROP 2.5 ML BOTTLE EACHEYE SCH (21:00)
[2022-12-14] MEDS: OMEGA-3 FATTY ACIDS/FISH OIL CAPSULE GT SCH (21:00)
[2022-12-15] VITALS (10 sets, daily range): TEMP 97.6–98.3; O2SAT 98–99
[2022-12-15] MEDS: IPRATROPIUM BROMIDE 0.5 MG/2.5 ML NEBU NEB SCH ×4 (01:17→18:54)
[2022-12-15] MEDS: ALBUTEROL SULFATE 2.5 MG/3 ML NEBU NEB SCH ×4 (01:17→18:54)
[2022-12-15] MEDS: OMEPRAZOLE 20 MG CAPSULE.DR GT SCH (05:39)
[2022-12-15] MEDS: ACIDOPHILUS/BULGARICUS CHEW TAB GT SCH ×3 (05:39→21:58)
[2022-12-15] MEDS: DOXYCYCLINE HYCLATE 100 MG TABLET GT SCH (05:39)
[2022-12-15] MEDS: VALPROIC ACID 250 MG/5 ML LIQUID UDC GT SCH ×3 (05:39→21:57)
[2022-12-15] MEDS: HYDROGEN PEROXIDE 3% 118 ML BOTTLE TP SCH ×2 (07:38→18:54)
[2022-12-15] MEDS: BACLOFEN 20 MG TABLET GT SCH ×3 (08:36→21:56)
[2022-12-15] MEDS: POLYVINYL ALCOHOL OPHT DROPS 15 ML BOTTLE EACHEYE SCH ×4 (08:36→21:55)
[2022-12-15] MEDS: PHENOBARBITAL 32.4 MG TABLET GT SCH ×2 (08:38→21:57)
[2022-12-15] MEDS: REMEDY ESSENTIAL ZINC PASTE 113 GM TP SCH ×2 (08:39→21:57)
[2022-12-15] MEDS: BENZOYL PEROXIDE 10% GEL 60 GM TUBE TP SCH ×2 (08:39→21:57)
[2022-12-15] MEDS: JEVITY 1.2 1000 ML LIQUID GT PRN (15:46)
[2022-12-15] MEDS: LATANOPROST OPHT DROP 2.5 ML BOTTLE EACHEYE SCH (21:55)
[2022-12-15] MEDS: OMEGA-3 FATTY ACIDS/FISH OIL CAPSULE GT SCH (21:55)
[2022-12-15] MEDS: NUTRISOURCE FIBER 4 GM PACKET GT SCH (21:57)
[2022-12-16] VITALS (10 sets, daily range): TEMP 97.3–98; O2SAT 98–99
[2022-12-16] MEDS: ALBUTEROL SULFATE 2.5 MG/3 ML NEBU NEB SCH ×4 (01:16→19:33)
[2022-12-16] MEDS: IPRATROPIUM BROMIDE 0.5 MG/2.5 ML NEBU NEB SCH ×4 (01:16→19:33)
[2022-12-16] MEDS: DOXYCYCLINE HYCLATE 100 MG TABLET GT SCH (05:55)
[2022-12-16] MEDS: OMEPRAZOLE 20 MG CAPSULE.DR GT SCH (05:55)
[2022-12-16] MEDS: VALPROIC ACID 250 MG/5 ML LIQUID UDC GT SCH ×3 (05:55→21:32)
[2022-12-16] MEDS: ACIDOPHILUS/BULGARICUS CHEW TAB GT SCH ×3 (05:55→21:32)
[2022-12-16] MEDS: POLYVINYL ALCOHOL OPHT DROPS 15 ML BOTTLE EACHEYE SCH ×4 (08:02→21:31)
[2022-12-16] MEDS: BACLOFEN 20 MG TABLET GT SCH ×3 (08:05→21:31)
[2022-12-16] MEDS: PHENOBARBITAL 32.4 MG TABLET GT SCH ×2 (08:05→21:32)
[2022-12-16] MEDS: BENZOYL PEROXIDE 10% GEL 60 GM TUBE TP SCH ×2 (08:06→21:32)
[2022-12-16] MEDS: REMEDY ESSENTIAL ZINC PASTE 113 GM TP SCH ×2 (08:06→21:32)
[2022-12-16] MEDS: HYDROGEN PEROXIDE 3% 118 ML BOTTLE TP SCH ×2 (09:13→21:00)
[2022-12-16] MEDS: JEVITY 1.2 1000 ML LIQUID GT PRN (14:06)
[2022-12-16] MEDS: LATANOPROST OPHT DROP 2.5 ML BOTTLE EACHEYE SCH (21:31)
[2022-12-16] MEDS: OMEGA-3 FATTY ACIDS/FISH OIL CAPSULE GT SCH (21:31)
[2022-12-16] MEDS: NUTRISOURCE FIBER 4 GM PACKET GT SCH (21:31)
[2022-12-17] VITALS (9 sets, daily range): TEMP 97.6; O2SAT 98–99
[2022-12-17] MEDS: ALBUTEROL SULFATE 2.5 MG/3 ML NEBU NEB SCH ×4 (01:48→20:14)
[2022-12-17] MEDS: IPRATROPIUM BROMIDE 0.5 MG/2.5 ML NEBU NEB SCH ×4 (01:48→20:14)
[2022-12-17] MEDS: VALPROIC ACID 250 MG/5 ML LIQUID UDC GT SCH ×3 (06:00→21:59)
[2022-12-17] MEDS: DOXYCYCLINE HYCLATE 100 MG TABLET GT SCH (06:00)
[2022-12-17] MEDS: ACIDOPHILUS/BULGARICUS CHEW TAB GT SCH ×3 (06:00→21:59)
[2022-12-17] MEDS: OMEPRAZOLE 20 MG CAPSULE.DR GT SCH (06:00)
[2022-12-17] MEDS: PHENOBARBITAL 32.4 MG TABLET GT SCH ×2 (08:58→21:59)
[2022-12-17] MEDS: POLYVINYL ALCOHOL OPHT DROPS 15 ML BOTTLE EACHEYE SCH ×4 (08:58→21:58)
[2022-12-17] MEDS: BENZOYL PEROXIDE 10% GEL 60 GM TUBE TP SCH ×2 (08:58→21:59)
[2022-12-17] MEDS: BACLOFEN 20 MG TABLET GT SCH ×3 (08:58→21:59)
[2022-12-17] MEDS: REMEDY ESSENTIAL ZINC PASTE 113 GM TP SCH ×2 (08:58→21:59)
[2022-12-17] MEDS: HYDROGEN PEROXIDE 3% 118 ML BOTTLE TP SCH ×2 (09:50→20:14)
[2022-12-17] MEDS: LATANOPROST OPHT DROP 2.5 ML BOTTLE EACHEYE SCH (21:59)
[2022-12-17] MEDS: OMEGA-3 FATTY ACIDS/FISH OIL CAPSULE GT SCH (21:59)
[2022-12-17] MEDS: NUTRISOURCE FIBER 4 GM PACKET GT SCH (21:59)
[2022-12-18] VITALS (9 sets, daily range): TEMP 97.6–98.8; O2SAT 98–99
[2022-12-18] MEDS: ALBUTEROL SULFATE 2.5 MG/3 ML NEBU NEB SCH ×4 (02:24→19:25)
[2022-12-18] MEDS: IPRATROPIUM BROMIDE 0.5 MG/2.5 ML NEBU NEB SCH ×4 (02:24→19:25)
[2022-12-18] MEDS: VALPROIC ACID 250 MG/5 ML LIQUID UDC GT SCH ×3 (05:39→21:31)
[2022-12-18] MEDS: DOXYCYCLINE HYCLATE 100 MG TABLET GT SCH (05:39)
[2022-12-18] MEDS: ACIDOPHILUS/BULGARICUS CHEW TAB GT SCH ×3 (05:39→21:32)
[2022-12-18] MEDS: OMEPRAZOLE 20 MG CAPSULE.DR GT SCH (05:39)
[2022-12-18] MEDS: HYDROGEN PEROXIDE 3% 118 ML BOTTLE TP SCH ×2 (07:11→21:00)
[2022-12-18] MEDS: REMEDY ESSENTIAL ZINC PASTE 113 GM TP SCH ×2 (08:35→21:31)
[2022-12-18] MEDS: POLYVINYL ALCOHOL OPHT DROPS 15 ML BOTTLE EACHEYE SCH ×4 (08:35→21:31)
[2022-12-18] MEDS: PHENOBARBITAL 32.4 MG TABLET GT SCH ×2 (08:35→21:31)
[2022-12-18] MEDS: BACLOFEN 20 MG TABLET GT SCH ×3 (08:35→21:31)
[2022-12-18] MEDS: BENZOYL PEROXIDE 10% GEL 60 GM TUBE TP SCH ×2 (08:35→21:31)
[2022-12-18] MEDS: NUTRISOURCE FIBER 4 GM PACKET GT SCH (21:31)
[2022-12-18] MEDS: LATANOPROST OPHT DROP 2.5 ML BOTTLE EACHEYE SCH (21:31)
[2022-12-18] MEDS: OMEGA-3 FATTY ACIDS/FISH OIL CAPSULE GT SCH (21:31)
[2022-12-19] VITALS (10 sets, daily range): TEMP 97.5–97.8; O2SAT 98–99
[2022-12-19] MEDS: IPRATROPIUM BROMIDE 0.5 MG/2.5 ML NEBU NEB SCH ×4 (01:41→19:04)
[2022-12-19] MEDS: ALBUTEROL SULFATE 2.5 MG/3 ML NEBU NEB SCH ×4 (01:42→19:04)
[2022-12-19] MEDS: OMEPRAZOLE 20 MG CAPSULE.DR GT SCH (06:00)
[2022-12-19] MEDS: ACIDOPHILUS/BULGARICUS CHEW TAB GT SCH ×3 (06:00→21:13)
[2022-12-19] MEDS: DOXYCYCLINE HYCLATE 100 MG TABLET GT SCH (06:00)
[2022-12-19] MEDS: VALPROIC ACID 250 MG/5 ML LIQUID UDC GT SCH ×3 (06:00→21:13)
[2022-12-19] MEDS: JEVITY 1.2 1000 ML LIQUID GT PRN (07:00)
[2022-12-19 07:16] LABS: BASOPHILS % (AUTO) 0.4 % (0.0-2.0); EOSINOPHILS # (AUTO) 0.2 K/uL (0.0-0.7); EOSINOPHILS % (AUTO) 2.1 % (0.0-7.0); HEMATOCRIT 39.9 % (36.7-47.1); HEMOGLOBIN 13.7 g/dL (12.5-16.3); LYMPHOCYTES # (AUTO) 1.1 K/uL (0.8-4.8); LYMPHOCYTES % (AUTO) 15.3 % (20.5-51.5); MEAN CORPUSCULAR HEMOGLOBIN 31.8 uug (23.8-33.4); MEAN CORPUSCULAR HGB CONC 34 g/dL (32.5-36.3); MONOCYTES # (AUTO) 0.6 K/uL (0.1-1.30); MONOCYTES % (AUTO) 7.9 % (0.0-11.0); NEUTROPHILS # (AUTO) 5.4 K/uL (1.8-8.9); NEUTROPHILS % (AUTO) 74.3 % (38.5-71.5); PLATELET COUNT (AUTO) 165 K/uL (152-348); RED BLOOD CELL COUNT(AUTO) 4.29 MIL/uL (4.06-5.63); RED CELL DISTRIBUTION WIDTH 15.1 % (12.1-16.2); WHITE BLOOD COUNT (AUTO) 7.3 K/uL (3.6-10.2)
[2022-12-19 07:20] LABS: DIFFERENTIAL COMMENT 1
[2022-12-19] MEDS: HYDROGEN PEROXIDE 3% 118 ML BOTTLE TP SCH ×2 (07:30→19:04)
[2022-12-19 07:31] LABS: ALANINE AMINOTRANSFERASE 25 U/L (16-63); ALBUMIN 3.4 g/dL (3.4-5.0); ALKALINE PHOSPHATASE 150 U/L (50-136); ASPARTATE AMINOTRANSFERASE 17 U/L (15-37); BILIRUBIN,DIRECT 0.2 mg/dL (0.0-0.2); BILIRUBIN,TOTAL 0.3 mg/dL (0.2-1.0); CALCIUM 9.1 mg/dL (8.5-10.1); CARBON DIOXIDE 31 mmol/L (21-32); CHLORIDE 101 mmol/L (98-107); CREATININE 0.3 mg/dL (0.6-1.3); GLUCOSE 125 mg/dL (74-106); POTASSIUM 4.2 mmol/L (3.5-5.1); SODIUM SERUM 138 mmol/L (136-145); TOTAL PROTEIN, SERUM 7.9 g/dL (6.4-8.2); UREA NITROGEN, BLOOD 10 mg/dL (7-18)
[2022-12-19] MEDS: BACLOFEN 20 MG TABLET GT SCH ×3 (08:22→20:47)
[2022-12-19] MEDS: PHENOBARBITAL 32.4 MG TABLET GT SCH ×2 (08:22→20:48)
[2022-12-19] MEDS: POLYVINYL ALCOHOL OPHT DROPS 15 ML BOTTLE EACHEYE SCH ×4 (08:22→20:47)
[2022-12-19] MEDS: BENZOYL PEROXIDE 10% GEL 60 GM TUBE TP SCH ×2 (08:24→20:49)
[2022-12-19] MEDS: REMEDY ESSENTIAL ZINC PASTE 113 GM TP SCH ×2 (08:24→20:49)
[2022-12-19] MEDS: OMEGA-3 FATTY ACIDS/FISH OIL CAPSULE GT SCH (20:47)
[2022-12-19] MEDS: NUTRISOURCE FIBER 4 GM PACKET GT SCH (20:47)
[2022-12-19] MEDS: LATANOPROST OPHT DROP 2.5 ML BOTTLE EACHEYE SCH (20:47)
[2022-12-20] VITALS (10 sets, daily range): TEMP 97.3–97.4; O2SAT 98–99
[2022-12-20] MEDS: IPRATROPIUM BROMIDE 0.5 MG/2.5 ML NEBU NEB SCH ×4 (00:40→19:16)
[2022-12-20] MEDS: ALBUTEROL SULFATE 2.5 MG/3 ML NEBU NEB SCH ×4 (00:40→19:16)
[2022-12-20] MEDS: OMEPRAZOLE 20 MG CAPSULE.DR GT SCH (06:42)
[2022-12-20] MEDS: ACIDOPHILUS/BULGARICUS CHEW TAB GT SCH ×3 (06:42→22:34)
[2022-12-20] MEDS: JEVITY 1.2 1000 ML LIQUID GT PRN (06:42)
[2022-12-20] MEDS: DOXYCYCLINE HYCLATE 100 MG TABLET GT SCH (06:42)
[2022-12-20] MEDS: VALPROIC ACID 250 MG/5 ML LIQUID UDC GT SCH ×3 (06:42→22:34)
[2022-12-20] MEDS: HYDROGEN PEROXIDE 3% 118 ML BOTTLE TP SCH ×2 (09:00→19:16)
[2022-12-20] MEDS: BACLOFEN 20 MG TABLET GT SCH ×3 (09:01→21:00)
[2022-12-20] MEDS: POLYVINYL ALCOHOL OPHT DROPS 15 ML BOTTLE EACHEYE SCH ×4 (09:01→21:00)
[2022-12-20] MEDS: PHENOBARBITAL 32.4 MG TABLET GT SCH ×2 (09:03→21:00)
[2022-12-20] MEDS: REMEDY ESSENTIAL ZINC PASTE 113 GM TP SCH ×2 (09:03→21:00)
[2022-12-20] MEDS: BENZOYL PEROXIDE 10% GEL 60 GM TUBE TP SCH ×2 (09:03→21:00)
[2022-12-20] MEDS: NUTRISOURCE FIBER 4 GM PACKET GT SCH (21:00)
[2022-12-20] MEDS: OMEGA-3 FATTY ACIDS/FISH OIL CAPSULE GT SCH (21:00)
[2022-12-20] MEDS: LATANOPROST OPHT DROP 2.5 ML BOTTLE EACHEYE SCH (21:00)
[2022-12-21] VITALS (10 sets, daily range): TEMP 98.2–98.3; O2SAT 98–99
[2022-12-21] MEDS: IPRATROPIUM BROMIDE 0.5 MG/2.5 ML NEBU NEB SCH ×4 (02:08→19:08)
[2022-12-21] MEDS: ALBUTEROL SULFATE 2.5 MG/3 ML NEBU NEB SCH ×4 (02:08→19:08)
[2022-12-21] MEDS: OMEPRAZOLE 20 MG CAPSULE.DR GT SCH (05:01)
[2022-12-21] MEDS: DOXYCYCLINE HYCLATE 100 MG TABLET GT SCH (05:01)
[2022-12-21] MEDS: ACIDOPHILUS/BULGARICUS CHEW TAB GT SCH ×3 (05:01→21:46)
[2022-12-21] MEDS: VALPROIC ACID 250 MG/5 ML LIQUID UDC GT SCH ×3 (05:02→21:46)
[2022-12-21] MEDS: HYDROGEN PEROXIDE 3% 118 ML BOTTLE TP SCH ×2 (08:46→19:08)
[2022-12-21] MEDS: PHENOBARBITAL 32.4 MG TABLET GT SCH ×2 (09:01→21:41)
[2022-12-21] MEDS: BENZOYL PEROXIDE 10% GEL 60 GM TUBE TP SCH ×2 (09:01→21:41)
[2022-12-21] MEDS: POLYVINYL ALCOHOL OPHT DROPS 15 ML BOTTLE EACHEYE SCH ×4 (09:01→21:41)
[2022-12-21] MEDS: REMEDY ESSENTIAL ZINC PASTE 113 GM TP SCH ×2 (09:01→21:41)
[2022-12-21] MEDS: BACLOFEN 20 MG TABLET GT SCH ×3 (09:01→21:41)
[2022-12-21] MEDS: LATANOPROST OPHT DROP 2.5 ML BOTTLE EACHEYE SCH (21:41)
[2022-12-21] MEDS: OMEGA-3 FATTY ACIDS/FISH OIL CAPSULE GT SCH (21:41)
[2022-12-21] MEDS: NUTRISOURCE FIBER 4 GM PACKET GT SCH (21:41)
[2022-12-22] MEDS: ALBUTEROL SULFATE 2.5 MG/3 ML NEBU NEB SCH ×4 (01:08→19:07)
[2022-12-22] MEDS: IPRATROPIUM BROMIDE 0.5 MG/2.5 ML NEBU NEB SCH ×4 (01:08→19:07)
[2022-12-22 01:15] VITALS: O2SAT 98
[2022-12-22 01:30] VITALS: O2SAT 99
[2022-12-22] MEDS: DOXYCYCLINE HYCLATE 100 MG TABLET GT SCH (05:44)
[2022-12-22] MEDS: JEVITY 1.2 1000 ML LIQUID GT PRN (05:44)
[2022-12-22] MEDS: VALPROIC ACID 250 MG/5 ML LIQUID UDC GT SCH ×3 (05:44→22:17)
[2022-12-22] MEDS: OMEPRAZOLE 20 MG CAPSULE.DR GT SCH (05:44)
[2022-12-22] MEDS: ACIDOPHILUS/BULGARICUS CHEW TAB GT SCH ×3 (05:44→22:13)
[2022-12-22 07:31] VITALS: TEMP 97.4
[2022-12-22] MEDS: HYDROGEN PEROXIDE 3% 118 ML BOTTLE TP SCH ×2 (07:35→19:07)
[2022-12-22] MEDS: BACLOFEN 20 MG TABLET GT SCH ×3 (08:47→21:00)
[2022-12-22] MEDS: POLYVINYL ALCOHOL OPHT DROPS 15 ML BOTTLE EACHEYE SCH ×4 (08:47→21:00)
[2022-12-22] MEDS: BENZOYL PEROXIDE 10% GEL 60 GM TUBE TP SCH ×2 (08:50→21:00)
[2022-12-22] MEDS: REMEDY ESSENTIAL ZINC PASTE 113 GM TP SCH ×2 (08:50→21:00)
[2022-12-22] MEDS: PHENOBARBITAL 32.4 MG TABLET GT SCH ×2 (08:50→21:00)
[2022-12-22 19:15] VITALS: O2SAT 98
[2022-12-22 19:45] VITALS: O2SAT 99
[2022-12-22 19:49] VITALS: TEMP 97.6
[2022-12-22] MEDS: LATANOPROST OPHT DROP 2.5 ML BOTTLE EACHEYE SCH (21:00)
[2022-12-22] MEDS: OMEGA-3 FATTY ACIDS/FISH OIL CAPSULE GT SCH (21:00)
[2022-12-22] MEDS: NUTRISOURCE FIBER 4 GM PACKET GT SCH (21:00)
[2022-12-23] VITALS (9 sets, daily range): TEMP 97.3; O2SAT 98–99
[2022-12-23] MEDS: IPRATROPIUM BROMIDE 0.5 MG/2.5 ML NEBU NEB SCH ×4 (01:27→19:45)
[2022-12-23] MEDS: ALBUTEROL SULFATE 2.5 MG/3 ML NEBU NEB SCH ×4 (01:27→19:42)
[2022-12-23] MEDS: JEVITY 1.2 1000 ML LIQUID GT PRN ×2 (01:42→21:53)
[2022-12-23] MEDS: DOXYCYCLINE HYCLATE 100 MG TABLET GT SCH (06:00)
[2022-12-23] MEDS: ACIDOPHILUS/BULGARICUS CHEW TAB GT SCH ×3 (06:26→21:39)
[2022-12-23] MEDS: OMEPRAZOLE 20 MG CAPSULE.DR GT SCH (06:26)
[2022-12-23] MEDS: VALPROIC ACID 250 MG/5 ML LIQUID UDC GT SCH ×3 (06:26→21:38)
[2022-12-23] MEDS: HYDROGEN PEROXIDE 3% 118 ML BOTTLE TP SCH ×2 (07:35→21:00)
[2022-12-23] MEDS: BACLOFEN 20 MG TABLET GT SCH ×3 (08:35→21:37)
[2022-12-23] MEDS: POLYVINYL ALCOHOL OPHT DROPS 15 ML BOTTLE EACHEYE SCH ×4 (08:35→21:37)
[2022-12-23] MEDS: BENZOYL PEROXIDE 10% GEL 60 GM TUBE TP SCH ×2 (08:36→21:38)
[2022-12-23] MEDS: REMEDY ESSENTIAL ZINC PASTE 113 GM TP SCH ×2 (08:36→21:38)
[2022-12-23] MEDS: PHENOBARBITAL 32.4 MG TABLET GT SCH ×2 (08:36→21:38)
[2022-12-23] MEDS: LATANOPROST OPHT DROP 2.5 ML BOTTLE EACHEYE SCH (21:37)
[2022-12-23] MEDS: OMEGA-3 FATTY ACIDS/FISH OIL CAPSULE GT SCH (21:37)
[2022-12-23] MEDS: NUTRISOURCE FIBER 4 GM PACKET GT SCH (21:37)
[2022-12-24] VITALS (12 sets, daily range): BP systolic 98–99; BP diastolic 51–63; TEMP 97.4–97.6; O2SAT 97–99
[2022-12-24] MEDS: IPRATROPIUM BROMIDE 0.5 MG/2.5 ML NEBU NEB SCH ×4 (01:49→19:29)
[2022-12-24] MEDS: ALBUTEROL SULFATE 2.5 MG/3 ML NEBU NEB SCH ×4 (01:49→19:29)
[2022-12-24] MEDS: ACIDOPHILUS/BULGARICUS CHEW TAB GT SCH ×3 (05:12→21:58)
[2022-12-24] MEDS: DOXYCYCLINE HYCLATE 100 MG TABLET GT SCH (05:12)
[2022-12-24] MEDS: OMEPRAZOLE 20 MG CAPSULE.DR GT SCH (05:12)
[2022-12-24] MEDS: VALPROIC ACID 250 MG/5 ML LIQUID UDC GT SCH ×3 (05:12→21:58)
[2022-12-24] MEDS: REMEDY ESSENTIAL ZINC PASTE 113 GM TP SCH ×2 (08:21→20:13)
[2022-12-24] MEDS: BACLOFEN 20 MG TABLET GT SCH ×3 (08:21→20:13)
[2022-12-24] MEDS: BENZOYL PEROXIDE 10% GEL 60 GM TUBE TP SCH ×2 (08:21→20:13)
[2022-12-24] MEDS: PHENOBARBITAL 32.4 MG TABLET GT SCH ×2 (08:21→20:13)
[2022-12-24] MEDS: POLYVINYL ALCOHOL OPHT DROPS 15 ML BOTTLE EACHEYE SCH ×4 (08:21→20:12)
[2022-12-24] MEDS: HYDROGEN PEROXIDE 3% 118 ML BOTTLE TP SCH ×2 (09:41→21:02)
[2022-12-24] MEDS: JEVITY 1.2 1000 ML LIQUID GT PRN (19:59)
[2022-12-24] MEDS: OMEGA-3 FATTY ACIDS/FISH OIL CAPSULE GT SCH (20:12)
[2022-12-24] MEDS: LATANOPROST OPHT DROP 2.5 ML BOTTLE EACHEYE SCH (20:12)
[2022-12-24] MEDS: NUTRISOURCE FIBER 4 GM PACKET GT SCH (20:13)
[2022-12-25] VITALS (11 sets, daily range): TEMP 97.2–98.2; O2SAT 98–99
[2022-12-25] MEDS: ALBUTEROL SULFATE 2.5 MG/3 ML NEBU NEB SCH ×4 (01:16→19:34)
[2022-12-25] MEDS: IPRATROPIUM BROMIDE 0.5 MG/2.5 ML NEBU NEB SCH ×4 (01:16→19:34)
[2022-12-25] MEDS: DOXYCYCLINE HYCLATE 100 MG TABLET GT SCH (05:16)
[2022-12-25] MEDS: VALPROIC ACID 250 MG/5 ML LIQUID UDC GT SCH ×3 (05:16→21:21)
[2022-12-25] MEDS: OMEPRAZOLE 20 MG CAPSULE.DR GT SCH (05:16)
[2022-12-25] MEDS: ACIDOPHILUS/BULGARICUS CHEW TAB GT SCH ×3 (05:16→21:22)
[2022-12-25] MEDS: POLYVINYL ALCOHOL OPHT DROPS 15 ML BOTTLE EACHEYE SCH ×4 (09:09→20:09)
[2022-12-25] MEDS: BACLOFEN 20 MG TABLET GT SCH ×3 (09:09→21:22)
[2022-12-25] MEDS: PHENOBARBITAL 32.4 MG TABLET GT SCH ×2 (09:17→21:22)
[2022-12-25] MEDS: REMEDY ESSENTIAL ZINC PASTE 113 GM TP SCH ×2 (09:20→21:22)
[2022-12-25] MEDS: BENZOYL PEROXIDE 10% GEL 60 GM TUBE TP SCH ×2 (09:20→21:22)
[2022-12-25] MEDS: HYDROGEN PEROXIDE 3% 118 ML BOTTLE TP SCH ×2 (09:29→21:22)
[2022-12-25] MEDS: JEVITY 1.2 1000 ML LIQUID GT PRN (16:44)
[2022-12-25] MEDS: LATANOPROST OPHT DROP 2.5 ML BOTTLE EACHEYE SCH (20:09)
[2022-12-25] MEDS: OMEGA-3 FATTY ACIDS/FISH OIL CAPSULE GT SCH (21:22)
[2022-12-25] MEDS: NUTRISOURCE FIBER 4 GM PACKET GT SCH (21:22)
[2022-12-26] VITALS (10 sets, daily range): TEMP 97.6–98; O2SAT 98–99
[2022-12-26] MEDS: IPRATROPIUM BROMIDE 0.5 MG/2.5 ML NEBU NEB SCH ×4 (01:35→19:28)
[2022-12-26] MEDS: ALBUTEROL SULFATE 2.5 MG/3 ML NEBU NEB SCH ×4 (01:35→19:28)
[2022-12-26] MEDS: OMEPRAZOLE 20 MG CAPSULE.DR GT SCH (05:20)
[2022-12-26] MEDS: ACIDOPHILUS/BULGARICUS CHEW TAB GT SCH ×3 (05:20→21:54)
[2022-12-26] MEDS: VALPROIC ACID 250 MG/5 ML LIQUID UDC GT SCH ×3 (05:20→21:54)
[2022-12-26] MEDS: DOXYCYCLINE HYCLATE 100 MG TABLET GT SCH (05:20)
[2022-12-26] MEDS: JEVITY 1.2 1000 ML LIQUID GT PRN ×2 (05:21→18:59)
[2022-12-26] MEDS: HYDROGEN PEROXIDE 3% 118 ML BOTTLE TP SCH ×2 (07:35→21:31)
[2022-12-26] MEDS: POLYVINYL ALCOHOL OPHT DROPS 15 ML BOTTLE EACHEYE SCH ×4 (09:03→21:51)
[2022-12-26] MEDS: BACLOFEN 20 MG TABLET GT SCH ×3 (09:03→21:52)
[2022-12-26] MEDS: PHENOBARBITAL 32.4 MG TABLET GT SCH ×2 (09:04→21:54)
[2022-12-26] MEDS: REMEDY ESSENTIAL ZINC PASTE 113 GM TP SCH ×2 (09:04→21:54)
[2022-12-26] MEDS: BENZOYL PEROXIDE 10% GEL 60 GM TUBE TP SCH ×2 (09:04→21:54)
[2022-12-26 10:53] LABS: BASOPHILS % (AUTO) 0.7 % (0.0-2.0); EOSINOPHILS # (AUTO) 0.2 K/uL (0.0-0.7); EOSINOPHILS % (AUTO) 3.3 % (0.0-7.0); HEMATOCRIT 38.1 % (36.7-47.1); HEMOGLOBIN 12.7 g/dL (12.5-16.3); LYMPHOCYTES # (AUTO) 1.4 K/uL (0.8-4.8); LYMPHOCYTES % (AUTO) 30.2 % (20.5-51.5); MEAN CORPUSCULAR HGB CONC 34 g/dL (32.5-36.3); MEAN CORPUSCULAR VOLUME 92.8 fL (73.0-96.2); MONOCYTES # (AUTO) 0.5 K/uL (0.1-1.30); NEUTROPHILS # (AUTO) 2.6 K/uL (1.8-8.9); NEUTROPHILS % (AUTO) 55.8 % (38.5-71.5); PLATELET COUNT (AUTO) 148 K/uL (152-348); RED CELL DISTRIBUTION WIDTH 15.5 % (12.1-16.2); WHITE BLOOD COUNT (AUTO) 4.7 K/uL (3.6-10.2)
[2022-12-26 11:02] LABS: DIFFERENTIAL COMMENT 1
[2022-12-26] MEDS: LATANOPROST OPHT DROP 2.5 ML BOTTLE EACHEYE SCH (21:51)
[2022-12-26] MEDS: OMEGA-3 FATTY ACIDS/FISH OIL CAPSULE GT SCH (21:52)
[2022-12-26] MEDS: NUTRISOURCE FIBER 4 GM PACKET GT SCH (21:54)
[2022-12-27] VITALS (10 sets, daily range): TEMP 97.4–97.6; O2SAT 97–99
[2022-12-27] MEDS: IPRATROPIUM BROMIDE 0.5 MG/2.5 ML NEBU NEB SCH ×4 (01:07→19:15)
[2022-12-27] MEDS: ALBUTEROL SULFATE 2.5 MG/3 ML NEBU NEB SCH ×4 (01:07→19:15)
[2022-12-27] MEDS: OMEPRAZOLE 20 MG CAPSULE.DR GT SCH (06:47)
[2022-12-27] MEDS: ACIDOPHILUS/BULGARICUS CHEW TAB GT SCH ×3 (06:47→21:43)
[2022-12-27] MEDS: VALPROIC ACID 250 MG/5 ML LIQUID UDC GT SCH ×3 (06:47→21:43)
[2022-12-27] MEDS: DOXYCYCLINE HYCLATE 100 MG TABLET GT SCH (06:47)
[2022-12-27] MEDS: POLYVINYL ALCOHOL OPHT DROPS 15 ML BOTTLE EACHEYE SCH ×4 (08:20→21:40)
[2022-12-27] MEDS: BENZOYL PEROXIDE 10% GEL 60 GM TUBE TP SCH ×2 (08:21→21:42)
[2022-12-27] MEDS: REMEDY ESSENTIAL ZINC PASTE 113 GM TP SCH ×2 (08:21→21:43)
[2022-12-27] MEDS: BACLOFEN 20 MG TABLET GT SCH ×3 (08:21→21:41)
[2022-12-27] MEDS: PHENOBARBITAL 32.4 MG TABLET GT SCH ×2 (08:21→21:41)
[2022-12-27] MEDS: HYDROGEN PEROXIDE 3% 118 ML BOTTLE TP SCH ×2 (09:00→20:27)
[2022-12-27] MEDS: LATANOPROST OPHT DROP 2.5 ML BOTTLE EACHEYE SCH (21:40)
[2022-12-27] MEDS: OMEGA-3 FATTY ACIDS/FISH OIL CAPSULE GT SCH (21:41)
[2022-12-27] MEDS: NUTRISOURCE FIBER 4 GM PACKET GT SCH (21:41)
[2022-12-28] VITALS (10 sets, daily range): TEMP 97.3–97.6; O2SAT 97–99
[2022-12-28] MEDS: ALBUTEROL SULFATE 2.5 MG/3 ML NEBU NEB SCH ×4 (01:28→19:20)
[2022-12-28] MEDS: IPRATROPIUM BROMIDE 0.5 MG/2.5 ML NEBU NEB SCH ×4 (01:28→19:20)
[2022-12-28] MEDS: ACIDOPHILUS/BULGARICUS CHEW TAB GT SCH ×3 (05:22→21:42)
[2022-12-28] MEDS: DOXYCYCLINE HYCLATE 100 MG TABLET GT SCH (05:22)
[2022-12-28] MEDS: VALPROIC ACID 250 MG/5 ML LIQUID UDC GT SCH ×3 (05:22→21:42)
[2022-12-28] MEDS: OMEPRAZOLE 20 MG CAPSULE.DR GT SCH (05:22)
[2022-12-28] MEDS: PHENOBARBITAL 32.4 MG TABLET GT SCH ×2 (08:31→21:42)
[2022-12-28] MEDS: BACLOFEN 20 MG TABLET GT SCH ×3 (08:31→21:42)
[2022-12-28] MEDS: BENZOYL PEROXIDE 10% GEL 60 GM TUBE TP SCH ×2 (08:31→21:42)
[2022-12-28] MEDS: POLYVINYL ALCOHOL OPHT DROPS 15 ML BOTTLE EACHEYE SCH ×4 (08:31→21:42)
[2022-12-28] MEDS: REMEDY ESSENTIAL ZINC PASTE 113 GM TP SCH ×2 (08:31→21:42)
[2022-12-28] MEDS: HYDROGEN PEROXIDE 3% 118 ML BOTTLE TP SCH ×2 (09:58→21:03)
[2022-12-28] MEDS: NUTRISOURCE FIBER 4 GM PACKET GT SCH (21:42)
[2022-12-28] MEDS: LATANOPROST OPHT DROP 2.5 ML BOTTLE EACHEYE SCH (21:42)
[2022-12-28] MEDS: OMEGA-3 FATTY ACIDS/FISH OIL CAPSULE GT SCH (21:42)
[2022-12-29] VITALS (10 sets, daily range): TEMP 98–98.6; O2SAT 97–99
[2022-12-29] MEDS: ALBUTEROL SULFATE 2.5 MG/3 ML NEBU NEB SCH ×4 (00:50→19:10)
[2022-12-29] MEDS: IPRATROPIUM BROMIDE 0.5 MG/2.5 ML NEBU NEB SCH ×4 (00:50→19:10)
[2022-12-29] MEDS: OMEPRAZOLE 20 MG CAPSULE.DR GT SCH (05:25)
[2022-12-29] MEDS: ACIDOPHILUS/BULGARICUS CHEW TAB GT SCH ×3 (05:25→21:51)
[2022-12-29] MEDS: VALPROIC ACID 250 MG/5 ML LIQUID UDC GT SCH ×3 (05:25→21:51)
[2022-12-29] MEDS: DOXYCYCLINE HYCLATE 100 MG TABLET GT SCH (05:25)
[2022-12-29] MEDS: POLYVINYL ALCOHOL OPHT DROPS 15 ML BOTTLE EACHEYE SCH ×4 (08:29→21:51)
[2022-12-29] MEDS: BACLOFEN 20 MG TABLET GT SCH ×3 (08:30→21:51)
[2022-12-29] MEDS: PHENOBARBITAL 32.4 MG TABLET GT SCH ×2 (08:30→21:51)
[2022-12-29] MEDS: BENZOYL PEROXIDE 10% GEL 60 GM TUBE TP SCH ×2 (08:30→21:51)
[2022-12-29] MEDS: REMEDY ESSENTIAL ZINC PASTE 113 GM TP SCH ×2 (08:31→21:51)
[2022-12-29] MEDS: HYDROGEN PEROXIDE 3% 118 ML BOTTLE TP SCH ×2 (09:50→21:55)
[2022-12-29] MEDS: JEVITY 1.2 1000 ML LIQUID GT PRN (15:26)
[2022-12-29] MEDS: LATANOPROST OPHT DROP 2.5 ML BOTTLE EACHEYE SCH (21:51)
[2022-12-29] MEDS: NUTRISOURCE FIBER 4 GM PACKET GT SCH (21:51)
[2022-12-29] MEDS: OMEGA-3 FATTY ACIDS/FISH OIL CAPSULE GT SCH (21:51)
[2022-12-30] VITALS (10 sets, daily range): TEMP 97.4–98; O2SAT 96–99
[2022-12-30] MEDS: ALBUTEROL SULFATE 2.5 MG/3 ML NEBU NEB SCH ×4 (01:27→19:26)
[2022-12-30] MEDS: IPRATROPIUM BROMIDE 0.5 MG/2.5 ML NEBU NEB SCH ×4 (01:27→19:25)
[2022-12-30] MEDS: ACIDOPHILUS/BULGARICUS CHEW TAB GT SCH ×3 (06:48→22:56)
[2022-12-30] MEDS: VALPROIC ACID 250 MG/5 ML LIQUID UDC GT SCH ×3 (06:48→22:56)
[2022-12-30] MEDS: OMEPRAZOLE 20 MG CAPSULE.DR GT SCH (06:48)
[2022-12-30] MEDS: DOXYCYCLINE HYCLATE 100 MG TABLET GT SCH (06:48)
[2022-12-30] MEDS: HYDROGEN PEROXIDE 3% 118 ML BOTTLE TP SCH ×2 (07:20→19:25)
[2022-12-30] MEDS: BACLOFEN 20 MG TABLET GT SCH ×3 (08:25→20:50)
[2022-12-30] MEDS: POLYVINYL ALCOHOL OPHT DROPS 15 ML BOTTLE EACHEYE SCH ×4 (08:25→20:50)
[2022-12-30] MEDS: REMEDY ESSENTIAL ZINC PASTE 113 GM TP SCH ×2 (08:26→20:50)
[2022-12-30] MEDS: PHENOBARBITAL 32.4 MG TABLET GT SCH ×2 (08:26→20:50)
[2022-12-30] MEDS: BENZOYL PEROXIDE 10% GEL 60 GM TUBE TP SCH ×2 (08:26→20:50)
[2022-12-30] MEDS: LATANOPROST OPHT DROP 2.5 ML BOTTLE EACHEYE SCH (20:50)
[2022-12-30] MEDS: NUTRISOURCE FIBER 4 GM PACKET GT SCH (20:50)
[2022-12-30] MEDS: OMEGA-3 FATTY ACIDS/FISH OIL CAPSULE GT SCH (20:50)
[2022-12-31] VITALS (10 sets, daily range): TEMP 97.6–98.4; O2SAT 96–99
[2022-12-31] MEDS: IPRATROPIUM BROMIDE 0.5 MG/2.5 ML NEBU NEB SCH ×4 (01:25→18:58)
[2022-12-31] MEDS: ALBUTEROL SULFATE 2.5 MG/3 ML NEBU NEB SCH ×4 (01:25→18:58)
[2022-12-31] MEDS: OMEPRAZOLE 20 MG CAPSULE.DR GT SCH (06:48)
[2022-12-31] MEDS: DOXYCYCLINE HYCLATE 100 MG TABLET GT SCH (06:48)
[2022-12-31] MEDS: VALPROIC ACID 250 MG/5 ML LIQUID UDC GT SCH ×3 (06:48→21:13)
[2022-12-31] MEDS: ACIDOPHILUS/BULGARICUS CHEW TAB GT SCH ×3 (06:48→21:13)
[2022-12-31] MEDS: POLYVINYL ALCOHOL OPHT DROPS 15 ML BOTTLE EACHEYE SCH ×4 (08:40→20:46)
[2022-12-31] MEDS: PHENOBARBITAL 32.4 MG TABLET GT SCH ×2 (08:40→20:47)
[2022-12-31] MEDS: REMEDY ESSENTIAL ZINC PASTE 113 GM TP SCH ×2 (08:40→20:47)
[2022-12-31] MEDS: BENZOYL PEROXIDE 10% GEL 60 GM TUBE TP SCH ×2 (08:40→20:47)
[2022-12-31] MEDS: BACLOFEN 20 MG TABLET GT SCH ×3 (08:40→20:46)
[2022-12-31] MEDS: HYDROGEN PEROXIDE 3% 118 ML BOTTLE TP SCH ×2 (09:28→18:58)
[2022-12-31] MEDS: OMEGA-3 FATTY ACIDS/FISH OIL CAPSULE GT SCH (20:46)
[2022-12-31] MEDS: LATANOPROST OPHT DROP 2.5 ML BOTTLE EACHEYE SCH (20:46)
[2022-12-31] MEDS: NUTRISOURCE FIBER 4 GM PACKET GT SCH (20:46)
[2023-01-01] VITALS (12 sets, daily range): BP systolic 97–101; BP diastolic 53–58; TEMP 97.6–97.8; O2SAT 96–99
[2023-01-01] MEDS: IPRATROPIUM BROMIDE 0.5 MG/2.5 ML NEBU NEB SCH ×4 (01:09→19:24)
[2023-01-01] MEDS: ALBUTEROL SULFATE 2.5 MG/3 ML NEBU NEB SCH ×4 (01:09→19:25)
[2023-01-01] MEDS: JEVITY 1.2 1000 ML LIQUID GT PRN ×2 (02:51→23:36)
[2023-01-01] MEDS: VALPROIC ACID 250 MG/5 ML LIQUID UDC GT SCH ×3 (05:19→22:54)
[2023-01-01] MEDS: ACIDOPHILUS/BULGARICUS CHEW TAB GT SCH ×3 (05:19→22:54)
[2023-01-01] MEDS: OMEPRAZOLE 20 MG CAPSULE.DR GT SCH (05:19)
[2023-01-01] MEDS: DOXYCYCLINE HYCLATE 100 MG TABLET GT SCH (05:19)
[2023-01-01] MEDS: BACLOFEN 20 MG TABLET GT SCH ×3 (08:23→20:17)
[2023-01-01] MEDS: PHENOBARBITAL 32.4 MG TABLET GT SCH ×2 (08:23→20:17)
[2023-01-01] MEDS: POLYVINYL ALCOHOL OPHT DROPS 15 ML BOTTLE EACHEYE SCH ×4 (08:23→20:17)
[2023-01-01] MEDS: BENZOYL PEROXIDE 10% GEL 60 GM TUBE TP SCH ×2 (08:23→20:17)
[2023-01-01] MEDS: REMEDY ESSENTIAL ZINC PASTE 113 GM TP SCH ×2 (08:24→20:18)
[2023-01-01] MEDS: HYDROGEN PEROXIDE 3% 118 ML BOTTLE TP SCH ×2 (09:31→19:25)
[2023-01-01] MEDS: OMEGA-3 FATTY ACIDS/FISH OIL CAPSULE GT SCH (20:17)
[2023-01-01] MEDS: NUTRISOURCE FIBER 4 GM PACKET GT SCH (20:17)
[2023-01-01] MEDS: LATANOPROST OPHT DROP 2.5 ML BOTTLE EACHEYE SCH (20:17)
[2023-01-02] VITALS (10 sets, daily range): TEMP 97.3–97.8; O2SAT 96–99
[2023-01-02] MEDS: IPRATROPIUM BROMIDE 0.5 MG/2.5 ML NEBU NEB SCH ×4 (01:27→19:05)
[2023-01-02] MEDS: ALBUTEROL SULFATE 2.5 MG/3 ML NEBU NEB SCH ×4 (01:27→19:05)
[2023-01-02] MEDS: VALPROIC ACID 250 MG/5 ML LIQUID UDC GT SCH ×3 (05:16→22:18)
[2023-01-02] MEDS: OMEPRAZOLE 20 MG CAPSULE.DR GT SCH (05:16)
[2023-01-02] MEDS: ACIDOPHILUS/BULGARICUS CHEW TAB GT SCH ×3 (05:16→22:18)
[2023-01-02] MEDS: DOXYCYCLINE HYCLATE 100 MG TABLET GT SCH (05:16)
[2023-01-02] MEDS: HYDROGEN PEROXIDE 3% 118 ML BOTTLE TP SCH ×2 (07:30→19:05)
[2023-01-02] MEDS: BACLOFEN 20 MG TABLET GT SCH ×3 (08:46→20:33)
[2023-01-02] MEDS: PHENOBARBITAL 32.4 MG TABLET GT SCH ×2 (08:46→20:33)
[2023-01-02] MEDS: BENZOYL PEROXIDE 10% GEL 60 GM TUBE TP SCH ×2 (08:46→20:33)
[2023-01-02] MEDS: POLYVINYL ALCOHOL OPHT DROPS 15 ML BOTTLE EACHEYE SCH ×4 (08:46→20:32)
[2023-01-02] MEDS: REMEDY ESSENTIAL ZINC PASTE 113 GM TP SCH ×2 (08:46→20:33)
[2023-01-02] MEDS: JEVITY 1.2 1000 ML LIQUID GT PRN (18:11)
[2023-01-02] MEDS: OMEGA-3 FATTY ACIDS/FISH OIL CAPSULE GT SCH (20:32)
[2023-01-02] MEDS: LATANOPROST OPHT DROP 2.5 ML BOTTLE EACHEYE SCH (20:32)
[2023-01-02] MEDS: NUTRISOURCE FIBER 4 GM PACKET GT SCH (20:33)
[2023-01-03] VITALS (10 sets, daily range): TEMP 98; O2SAT 98–99
[2023-01-03] MEDS: ALBUTEROL SULFATE 2.5 MG/3 ML NEBU NEB SCH ×4 (00:56→19:40)
[2023-01-03] MEDS: IPRATROPIUM BROMIDE 0.5 MG/2.5 ML NEBU NEB SCH ×4 (00:56→19:40)
[2023-01-03] MEDS: DOXYCYCLINE HYCLATE 100 MG TABLET GT SCH (05:35)
[2023-01-03] MEDS: OMEPRAZOLE 20 MG CAPSULE.DR GT SCH (05:35)
[2023-01-03] MEDS: ACIDOPHILUS/BULGARICUS CHEW TAB GT SCH ×3 (05:35→22:14)
[2023-01-03] MEDS: VALPROIC ACID 250 MG/5 ML LIQUID UDC GT SCH ×3 (05:35→22:14)
[2023-01-03] MEDS: PHENOBARBITAL 32.4 MG TABLET GT SCH ×2 (08:24→20:44)
[2023-01-03] MEDS: BACLOFEN 20 MG TABLET GT SCH ×3 (08:24→20:44)
[2023-01-03] MEDS: POLYVINYL ALCOHOL OPHT DROPS 15 ML BOTTLE EACHEYE SCH ×4 (08:24→20:44)
[2023-01-03] MEDS: BENZOYL PEROXIDE 10% GEL 60 GM TUBE TP SCH ×2 (08:24→21:00)
[2023-01-03] MEDS: REMEDY ESSENTIAL ZINC PASTE 113 GM TP SCH ×2 (08:24→21:00)
[2023-01-03] MEDS: HYDROGEN PEROXIDE 3% 118 ML BOTTLE TP SCH ×2 (09:30→21:41)
[2023-01-03] MEDS: LATANOPROST OPHT DROP 2.5 ML BOTTLE EACHEYE SCH (20:44)
[2023-01-03] MEDS: NUTRISOURCE FIBER 4 GM PACKET GT SCH (20:44)
[2023-01-03] MEDS: OMEGA-3 FATTY ACIDS/FISH OIL CAPSULE GT SCH (20:44)
[2023-01-04] VITALS (10 sets, daily range): TEMP 97.2–98; O2SAT 98–99
[2023-01-04] MEDS: ALBUTEROL SULFATE 2.5 MG/3 ML NEBU NEB SCH ×4 (01:32→19:40)
[2023-01-04] MEDS: IPRATROPIUM BROMIDE 0.5 MG/2.5 ML NEBU NEB SCH ×4 (01:32→19:40)
[2023-01-04] MEDS: DOXYCYCLINE HYCLATE 100 MG TABLET GT SCH (05:30)
[2023-01-04] MEDS: VALPROIC ACID 250 MG/5 ML LIQUID UDC GT SCH ×3 (05:30→21:43)
[2023-01-04] MEDS: OMEPRAZOLE 20 MG CAPSULE.DR GT SCH (05:30)
[2023-01-04] MEDS: ACIDOPHILUS/BULGARICUS CHEW TAB GT SCH ×3 (05:30→21:43)
[2023-01-04] MEDS: HYDROGEN PEROXIDE 3% 118 ML BOTTLE TP SCH ×2 (07:10→21:39)
[2023-01-04] MEDS: POLYVINYL ALCOHOL OPHT DROPS 15 ML BOTTLE EACHEYE SCH ×4 (09:49→21:43)
[2023-01-04] MEDS: BACLOFEN 20 MG TABLET GT SCH ×3 (09:54→21:43)
[2023-01-04] MEDS: PHENOBARBITAL 32.4 MG TABLET GT SCH ×2 (09:54→21:43)
[2023-01-04] MEDS: REMEDY ESSENTIAL ZINC PASTE 113 GM TP SCH ×2 (09:55→21:43)
[2023-01-04] MEDS: BENZOYL PEROXIDE 10% GEL 60 GM TUBE TP SCH ×2 (09:55→21:43)
[2023-01-04] MEDS: JEVITY 1.2 1000 ML LIQUID GT PRN (11:27)
[2023-01-04] MEDS: OMEGA-3 FATTY ACIDS/FISH OIL CAPSULE GT SCH (21:43)
[2023-01-04] MEDS: NUTRISOURCE FIBER 4 GM PACKET GT SCH (21:43)
[2023-01-04] MEDS: LATANOPROST OPHT DROP 2.5 ML BOTTLE EACHEYE SCH (21:43)
[2023-01-05] VITALS (11 sets, daily range): BP systolic 92; BP diastolic 53; TEMP 97.6–98.2; O2SAT 98–99
[2023-01-05] MEDS: ALBUTEROL SULFATE 2.5 MG/3 ML NEBU NEB SCH ×4 (01:15→19:11)
[2023-01-05] MEDS: IPRATROPIUM BROMIDE 0.5 MG/2.5 ML NEBU NEB SCH ×4 (01:15→19:11)
[2023-01-05] MEDS: JEVITY 1.2 1000 ML LIQUID GT PRN (04:00)
[2023-01-05] MEDS: DOXYCYCLINE HYCLATE 100 MG TABLET GT SCH (05:19)
[2023-01-05] MEDS: ACIDOPHILUS/BULGARICUS CHEW TAB GT SCH ×3 (05:19→22:39)
[2023-01-05] MEDS: OMEPRAZOLE 20 MG CAPSULE.DR GT SCH (05:19)
[2023-01-05] MEDS: VALPROIC ACID 250 MG/5 ML LIQUID UDC GT SCH ×3 (05:19→22:39)
[2023-01-05] MEDS: HYDROGEN PEROXIDE 3% 118 ML BOTTLE TP SCH ×2 (07:25→19:11)
[2023-01-05] MEDS: POLYVINYL ALCOHOL OPHT DROPS 15 ML BOTTLE EACHEYE SCH ×4 (08:32→20:31)
[2023-01-05] MEDS: BACLOFEN 20 MG TABLET GT SCH ×3 (08:32→20:31)
[2023-01-05] MEDS: PHENOBARBITAL 32.4 MG TABLET GT SCH ×2 (08:35→20:32)
[2023-01-05] MEDS: BENZOYL PEROXIDE 10% GEL 60 GM TUBE TP SCH ×2 (08:37→20:35)
[2023-01-05] MEDS: REMEDY ESSENTIAL ZINC PASTE 113 GM TP SCH ×2 (08:37→20:35)
[2023-01-05] MEDS: LATANOPROST OPHT DROP 2.5 ML BOTTLE EACHEYE SCH (20:31)
[2023-01-05] MEDS: NUTRISOURCE FIBER 4 GM PACKET GT SCH (20:31)
[2023-01-05] MEDS: OMEGA-3 FATTY ACIDS/FISH OIL CAPSULE GT SCH (20:31)
[2023-01-06] VITALS (10 sets, daily range): TEMP 97–97.8; O2SAT 98–99
[2023-01-06] MEDS: IPRATROPIUM BROMIDE 0.5 MG/2.5 ML NEBU NEB SCH ×4 (01:13→19:19)
[2023-01-06] MEDS: ALBUTEROL SULFATE 2.5 MG/3 ML NEBU NEB SCH ×4 (01:13→19:19)
[2023-01-06] MEDS: JEVITY 1.2 1000 ML LIQUID GT PRN ×2 (01:30→18:44)
[2023-01-06] MEDS: ACIDOPHILUS/BULGARICUS CHEW TAB GT SCH ×3 (05:04→21:50)
[2023-01-06] MEDS: VALPROIC ACID 250 MG/5 ML LIQUID UDC GT SCH ×3 (05:04→21:51)
[2023-01-06] MEDS: DOXYCYCLINE HYCLATE 100 MG TABLET GT SCH (05:04)
[2023-01-06] MEDS: OMEPRAZOLE 20 MG CAPSULE.DR GT SCH (05:04)
[2023-01-06] MEDS: POLYVINYL ALCOHOL OPHT DROPS 15 ML BOTTLE EACHEYE SCH ×4 (08:45→21:50)
[2023-01-06] MEDS: BACLOFEN 20 MG TABLET GT SCH ×3 (08:47→21:57)
[2023-01-06] MEDS: BENZOYL PEROXIDE 10% GEL 60 GM TUBE TP SCH ×2 (08:48→21:57)
[2023-01-06] MEDS: REMEDY ESSENTIAL ZINC PASTE 113 GM TP SCH ×2 (08:48→21:50)
[2023-01-06] MEDS: PHENOBARBITAL 32.4 MG TABLET GT SCH ×2 (08:48→21:57)
[2023-01-06] MEDS: HYDROGEN PEROXIDE 3% 118 ML BOTTLE TP SCH ×2 (09:29→20:16)
[2023-01-06] MEDS: LATANOPROST OPHT DROP 2.5 ML BOTTLE EACHEYE SCH (21:49)
[2023-01-06] MEDS: NUTRISOURCE FIBER 4 GM PACKET GT SCH (21:50)
[2023-01-06] MEDS: OMEGA-3 FATTY ACIDS/FISH OIL CAPSULE GT SCH (21:52)
[2023-01-07] VITALS (11 sets, daily range): TEMP 97.4–97.6; O2SAT 97–99
[2023-01-07] MEDS: IPRATROPIUM BROMIDE 0.5 MG/2.5 ML NEBU NEB SCH ×4 (01:54→19:20)
[2023-01-07] MEDS: ALBUTEROL SULFATE 2.5 MG/3 ML NEBU NEB SCH ×4 (01:54→19:20)
[2023-01-07] MEDS: ACIDOPHILUS/BULGARICUS CHEW TAB GT SCH ×3 (05:12→21:12)
[2023-01-07] MEDS: OMEPRAZOLE 20 MG CAPSULE.DR GT SCH (05:12)
[2023-01-07] MEDS: VALPROIC ACID 250 MG/5 ML LIQUID UDC GT SCH ×3 (05:12→21:12)
[2023-01-07] MEDS: DOXYCYCLINE HYCLATE 100 MG TABLET GT SCH (05:12)
[2023-01-07] MEDS: HYDROGEN PEROXIDE 3% 118 ML BOTTLE TP SCH ×2 (08:53→21:24)
[2023-01-07] MEDS: POLYVINYL ALCOHOL OPHT DROPS 15 ML BOTTLE EACHEYE SCH ×4 (08:57→21:10)
[2023-01-07] MEDS: PHENOBARBITAL 32.4 MG TABLET GT SCH ×2 (09:01→21:15)
[2023-01-07] MEDS: BACLOFEN 20 MG TABLET GT SCH ×3 (09:01→21:15)
[2023-01-07] MEDS: BENZOYL PEROXIDE 10% GEL 60 GM TUBE TP SCH ×2 (09:02→21:12)
[2023-01-07] MEDS: REMEDY ESSENTIAL ZINC PASTE 113 GM TP SCH ×2 (09:03→21:12)
[2023-01-07] MEDS: JEVITY 1.2 1000 ML LIQUID GT PRN (15:49)
[2023-01-07] MEDS: LATANOPROST OPHT DROP 2.5 ML BOTTLE EACHEYE SCH (21:11)
[2023-01-07] MEDS: NUTRISOURCE FIBER 4 GM PACKET GT SCH (21:12)
[2023-01-07] MEDS: OMEGA-3 FATTY ACIDS/FISH OIL CAPSULE GT SCH (21:12)
[2023-01-08] VITALS (10 sets, daily range): TEMP 98.4–99; O2SAT 98–99
[2023-01-08] MEDS: ALBUTEROL SULFATE 2.5 MG/3 ML NEBU NEB SCH ×4 (00:51→19:19)
[2023-01-08] MEDS: IPRATROPIUM BROMIDE 0.5 MG/2.5 ML NEBU NEB SCH ×4 (00:51→19:19)
[2023-01-08] MEDS: VALPROIC ACID 250 MG/5 ML LIQUID UDC GT SCH ×3 (05:08→21:47)
[2023-01-08] MEDS: DOXYCYCLINE HYCLATE 100 MG TABLET GT SCH (05:08)
[2023-01-08] MEDS: OMEPRAZOLE 20 MG CAPSULE.DR GT SCH (05:08)
[2023-01-08] MEDS: ACIDOPHILUS/BULGARICUS CHEW TAB GT SCH ×3 (05:08→21:47)
[2023-01-08] MEDS: PHENOBARBITAL 32.4 MG TABLET GT SCH ×2 (09:00→20:25)
[2023-01-08] MEDS: BENZOYL PEROXIDE 10% GEL 60 GM TUBE TP SCH ×2 (09:00→20:25)
[2023-01-08] MEDS: REMEDY ESSENTIAL ZINC PASTE 113 GM TP SCH ×2 (09:00→20:25)
[2023-01-08] MEDS: POLYVINYL ALCOHOL OPHT DROPS 15 ML BOTTLE EACHEYE SCH ×4 (09:00→20:24)
[2023-01-08] MEDS: BACLOFEN 20 MG TABLET GT SCH ×3 (09:00→20:25)
[2023-01-08] MEDS: HYDROGEN PEROXIDE 3% 118 ML BOTTLE TP SCH ×2 (09:52→19:19)
[2023-01-08] MEDS: OMEGA-3 FATTY ACIDS/FISH OIL CAPSULE GT SCH (20:25)
[2023-01-08] MEDS: LATANOPROST OPHT DROP 2.5 ML BOTTLE EACHEYE SCH (20:25)
[2023-01-08] MEDS: NUTRISOURCE FIBER 4 GM PACKET GT SCH (20:25)
[2023-01-09] VITALS (11 sets, daily range): TEMP 97.3–98.7; O2SAT 98–99
[2023-01-09] MEDS: IPRATROPIUM BROMIDE 0.5 MG/2.5 ML NEBU NEB SCH ×4 (01:47→19:40)
[2023-01-09] MEDS: ALBUTEROL SULFATE 2.5 MG/3 ML NEBU NEB SCH ×4 (01:47→19:40)
[2023-01-09] MEDS: JEVITY 1.2 1000 ML LIQUID GT PRN (04:11)
[2023-01-09] MEDS: ACIDOPHILUS/BULGARICUS CHEW TAB GT SCH ×3 (05:19→21:39)
[2023-01-09] MEDS: VALPROIC ACID 250 MG/5 ML LIQUID UDC GT SCH ×3 (05:19→21:39)
[2023-01-09] MEDS: OMEPRAZOLE 20 MG CAPSULE.DR GT SCH (05:19)
[2023-01-09] MEDS: DOXYCYCLINE HYCLATE 100 MG TABLET GT SCH (05:19)
[2023-01-09] MEDS: HYDROGEN PEROXIDE 3% 118 ML BOTTLE TP SCH ×2 (07:35→19:41)
[2023-01-09] MEDS: POLYVINYL ALCOHOL OPHT DROPS 15 ML BOTTLE EACHEYE SCH ×4 (08:52→21:38)
[2023-01-09] MEDS: REMEDY ESSENTIAL ZINC PASTE 113 GM TP SCH ×2 (08:56→21:39)
[2023-01-09] MEDS: BENZOYL PEROXIDE 10% GEL 60 GM TUBE TP SCH ×2 (08:56→21:38)
[2023-01-09] MEDS: PHENOBARBITAL 32.4 MG TABLET GT SCH ×2 (08:56→21:38)
[2023-01-09] MEDS: BACLOFEN 20 MG TABLET GT SCH ×3 (08:56→21:38)
[2023-01-09] MEDS: OMEGA-3 FATTY ACIDS/FISH OIL CAPSULE GT SCH (21:38)
[2023-01-09] MEDS: NUTRISOURCE FIBER 4 GM PACKET GT SCH (21:38)
[2023-01-09] MEDS: LATANOPROST OPHT DROP 2.5 ML BOTTLE EACHEYE SCH (21:38)
[2023-01-10] VITALS (10 sets, daily range): TEMP 97.3–98.6; O2SAT 98–99
[2023-01-10] MEDS: JEVITY 1.2 1000 ML LIQUID GT PRN ×2 (00:58→18:45)
[2023-01-10] MEDS: IPRATROPIUM BROMIDE 0.5 MG/2.5 ML NEBU NEB SCH ×4 (01:10→19:45)
[2023-01-10] MEDS: ALBUTEROL SULFATE 2.5 MG/3 ML NEBU NEB SCH ×4 (01:10→19:45)
[2023-01-10] MEDS: OMEPRAZOLE 20 MG CAPSULE.DR GT SCH (05:31)
[2023-01-10] MEDS: ACIDOPHILUS/BULGARICUS CHEW TAB GT SCH ×3 (05:31→21:45)
[2023-01-10] MEDS: VALPROIC ACID 250 MG/5 ML LIQUID UDC GT SCH ×3 (05:31→21:45)
[2023-01-10] MEDS: DOXYCYCLINE HYCLATE 100 MG TABLET GT SCH (05:31)
[2023-01-10] MEDS: POLYVINYL ALCOHOL OPHT DROPS 15 ML BOTTLE EACHEYE SCH ×4 (08:57→21:45)
[2023-01-10] MEDS: BACLOFEN 20 MG TABLET GT SCH ×3 (08:58→21:45)
[2023-01-10] MEDS: BENZOYL PEROXIDE 10% GEL 60 GM TUBE TP SCH ×2 (08:58→21:45)
[2023-01-10] MEDS: REMEDY ESSENTIAL ZINC PASTE 113 GM TP SCH ×2 (08:58→21:45)
[2023-01-10] MEDS: PHENOBARBITAL 32.4 MG TABLET GT SCH ×2 (08:58→21:45)
[2023-01-10] MEDS: HYDROGEN PEROXIDE 3% 118 ML BOTTLE TP SCH ×2 (09:00→21:20)
[2023-01-10] MEDS: OMEGA-3 FATTY ACIDS/FISH OIL CAPSULE GT SCH (21:45)
[2023-01-10] MEDS: LATANOPROST OPHT DROP 2.5 ML BOTTLE EACHEYE SCH (21:45)
[2023-01-10] MEDS: NUTRISOURCE FIBER 4 GM PACKET GT SCH (21:45)
[2023-01-11] VITALS (10 sets, daily range): TEMP 97.5–98.4; O2SAT 98–99
[2023-01-11] MEDS: ALBUTEROL SULFATE 2.5 MG/3 ML NEBU NEB SCH ×4 (01:45→19:47)
[2023-01-11] MEDS: IPRATROPIUM BROMIDE 0.5 MG/2.5 ML NEBU NEB SCH ×4 (01:45→19:47)
[2023-01-11] MEDS: OMEPRAZOLE 20 MG CAPSULE.DR GT SCH (05:12)
[2023-01-11] MEDS: VALPROIC ACID 250 MG/5 ML LIQUID UDC GT SCH ×3 (05:12→21:34)
[2023-01-11] MEDS: DOXYCYCLINE HYCLATE 100 MG TABLET GT SCH (05:12)
[2023-01-11] MEDS: ACIDOPHILUS/BULGARICUS CHEW TAB GT SCH ×3 (05:12→21:34)
[2023-01-11] MEDS: REMEDY ESSENTIAL ZINC PASTE 113 GM TP SCH ×2 (08:20→21:34)
[2023-01-11] MEDS: PHENOBARBITAL 32.4 MG TABLET GT SCH ×2 (08:20→21:33)
[2023-01-11] MEDS: BENZOYL PEROXIDE 10% GEL 60 GM TUBE TP SCH ×2 (08:20→21:33)
[2023-01-11] MEDS: POLYVINYL ALCOHOL OPHT DROPS 15 ML BOTTLE EACHEYE SCH ×4 (08:20→21:33)
[2023-01-11] MEDS: BACLOFEN 20 MG TABLET GT SCH ×3 (08:20→21:33)
[2023-01-11] MEDS: HYDROGEN PEROXIDE 3% 118 ML BOTTLE TP SCH ×2 (09:55→21:30)
[2023-01-11] MEDS: LATANOPROST OPHT DROP 2.5 ML BOTTLE EACHEYE SCH (21:33)
[2023-01-11] MEDS: NUTRISOURCE FIBER 4 GM PACKET GT SCH (21:33)
[2023-01-11] MEDS: OMEGA-3 FATTY ACIDS/FISH OIL CAPSULE GT SCH (21:33)
[2023-01-12] VITALS (9 sets, daily range): TEMP 97; O2SAT 98–99
[2023-01-12] MEDS: IPRATROPIUM BROMIDE 0.5 MG/2.5 ML NEBU NEB SCH ×4 (01:37→19:44)
[2023-01-12] MEDS: ALBUTEROL SULFATE 2.5 MG/3 ML NEBU NEB SCH ×4 (01:37→19:44)
[2023-01-12] MEDS: ACIDOPHILUS/BULGARICUS CHEW TAB GT SCH ×3 (06:06→21:45)
[2023-01-12] MEDS: DOXYCYCLINE HYCLATE 100 MG TABLET GT SCH (06:06)
[2023-01-12] MEDS: VALPROIC ACID 250 MG/5 ML LIQUID UDC GT SCH ×3 (06:06→21:45)
[2023-01-12] MEDS: OMEPRAZOLE 20 MG CAPSULE.DR GT SCH (06:06)
[2023-01-12] MEDS: POLYVINYL ALCOHOL OPHT DROPS 15 ML BOTTLE EACHEYE SCH ×4 (08:55→21:45)
[2023-01-12] MEDS: BACLOFEN 20 MG TABLET GT SCH ×3 (08:56→21:45)
[2023-01-12] MEDS: HYDROGEN PEROXIDE 3% 118 ML BOTTLE TP SCH ×2 (08:56→21:59)
[2023-01-12] MEDS: BENZOYL PEROXIDE 10% GEL 60 GM TUBE TP SCH ×2 (08:56→21:45)
[2023-01-12] MEDS: PHENOBARBITAL 32.4 MG TABLET GT SCH ×2 (08:56→21:45)
[2023-01-12] MEDS: REMEDY ESSENTIAL ZINC PASTE 113 GM TP SCH ×2 (08:57→21:45)
[2023-01-12] MEDS: NUTRISOURCE FIBER 4 GM PACKET GT SCH (21:45)
[2023-01-12] MEDS: LATANOPROST OPHT DROP 2.5 ML BOTTLE EACHEYE SCH (21:45)
[2023-01-12] MEDS: OMEGA-3 FATTY ACIDS/FISH OIL CAPSULE GT SCH (21:45)
[2023-01-13] VITALS (10 sets, daily range): BP systolic 102; BP diastolic 62; TEMP 98–98.1; O2SAT 98–99
[2023-01-13] MEDS: ALBUTEROL SULFATE 2.5 MG/3 ML NEBU NEB SCH ×4 (01:09→19:30)
[2023-01-13] MEDS: IPRATROPIUM BROMIDE 0.5 MG/2.5 ML NEBU NEB SCH ×4 (01:09→19:30)
[2023-01-13] MEDS: DOXYCYCLINE HYCLATE 100 MG TABLET GT SCH (06:00)
[2023-01-13] MEDS: VALPROIC ACID 250 MG/5 ML LIQUID UDC GT SCH ×3 (06:37→22:43)
[2023-01-13] MEDS: ACIDOPHILUS/BULGARICUS CHEW TAB GT SCH ×3 (06:37→22:43)
[2023-01-13] MEDS: OMEPRAZOLE 20 MG CAPSULE.DR GT SCH (06:37)
[2023-01-13] MEDS: POLYVINYL ALCOHOL OPHT DROPS 15 ML BOTTLE EACHEYE SCH ×4 (08:54→20:22)
[2023-01-13] MEDS: REMEDY ESSENTIAL ZINC PASTE 113 GM TP SCH ×2 (08:55→20:27)
[2023-01-13] MEDS: BACLOFEN 20 MG TABLET GT SCH ×3 (08:59→20:24)
[2023-01-13] MEDS: BENZOYL PEROXIDE 10% GEL 60 GM TUBE TP SCH ×2 (09:04→20:27)
[2023-01-13] MEDS: HYDROGEN PEROXIDE 3% 118 ML BOTTLE TP SCH ×2 (09:15→21:46)
[2023-01-13] MEDS: PHENOBARBITAL 32.4 MG TABLET GT SCH ×2 (09:52→20:27)
[2023-01-13] MEDS: JEVITY 1.2 1000 ML LIQUID GT PRN (13:11)
[2023-01-13] MEDS: LATANOPROST OPHT DROP 2.5 ML BOTTLE EACHEYE SCH (20:22)
[2023-01-13] MEDS: OMEGA-3 FATTY ACIDS/FISH OIL CAPSULE GT SCH (20:22)
[2023-01-13] MEDS: NUTRISOURCE FIBER 4 GM PACKET GT SCH (20:24)
[2023-01-14] VITALS (13 sets, daily range): BP systolic 124–128; BP diastolic 69–73; TEMP 98.1–98.6; O2SAT 98–99
[2023-01-14] MEDS: ALBUTEROL SULFATE 2.5 MG/3 ML NEBU NEB SCH ×4 (01:28→20:23)
[2023-01-14] MEDS: IPRATROPIUM BROMIDE 0.5 MG/2.5 ML NEBU NEB SCH ×4 (01:28→20:23)
[2023-01-14] MEDS: VALPROIC ACID 250 MG/5 ML LIQUID UDC GT SCH ×3 (05:40→21:33)
[2023-01-14] MEDS: DOXYCYCLINE HYCLATE 100 MG TABLET GT SCH (05:40)
[2023-01-14] MEDS: ACIDOPHILUS/BULGARICUS CHEW TAB GT SCH ×3 (05:40→21:33)
[2023-01-14] MEDS: OMEPRAZOLE 20 MG CAPSULE.DR GT SCH (05:40)
[2023-01-14] MEDS: PHENOBARBITAL 32.4 MG TABLET GT SCH ×2 (08:53→20:12)
[2023-01-14] MEDS: POLYVINYL ALCOHOL OPHT DROPS 15 ML BOTTLE EACHEYE SCH ×4 (08:53→20:12)
[2023-01-14] MEDS: BACLOFEN 20 MG TABLET GT SCH ×3 (08:53→20:12)
[2023-01-14] MEDS: REMEDY ESSENTIAL ZINC PASTE 113 GM TP SCH ×2 (08:53→20:12)
[2023-01-14] MEDS: BENZOYL PEROXIDE 10% GEL 60 GM TUBE TP SCH ×2 (08:53→20:12)
[2023-01-14] MEDS: HYDROGEN PEROXIDE 3% 118 ML BOTTLE TP SCH ×2 (09:08→20:23)
[2023-01-14] MEDS: JEVITY 1.2 1000 ML LIQUID GT PRN (09:39)
[2023-01-14] MEDS: LATANOPROST OPHT DROP 2.5 ML BOTTLE EACHEYE SCH (20:12)
[2023-01-14] MEDS: OMEGA-3 FATTY ACIDS/FISH OIL CAPSULE GT SCH (20:12)
[2023-01-14] MEDS: NUTRISOURCE FIBER 4 GM PACKET GT SCH (20:12)
[2023-01-15] VITALS (11 sets, daily range): BP systolic 98; BP diastolic 58; TEMP 98.4–98.7; O2SAT 97–99
[2023-01-15] MEDS: JEVITY 1.2 1000 ML LIQUID GT PRN ×2 (01:45→23:20)
[2023-01-15] MEDS: IPRATROPIUM BROMIDE 0.5 MG/2.5 ML NEBU NEB SCH ×4 (01:57→19:25)
[2023-01-15] MEDS: ALBUTEROL SULFATE 2.5 MG/3 ML NEBU NEB SCH ×4 (01:57→19:25)
[2023-01-15] MEDS: VALPROIC ACID 250 MG/5 ML LIQUID UDC GT SCH ×3 (05:02→22:41)
[2023-01-15] MEDS: ACIDOPHILUS/BULGARICUS CHEW TAB GT SCH ×3 (05:02→22:41)
[2023-01-15] MEDS: DOXYCYCLINE HYCLATE 100 MG TABLET GT SCH (05:02)
[2023-01-15] MEDS: OMEPRAZOLE 20 MG CAPSULE.DR GT SCH (05:02)
[2023-01-15] MEDS: PHENOBARBITAL 32.4 MG TABLET GT SCH ×2 (08:47→20:06)
[2023-01-15] MEDS: POLYVINYL ALCOHOL OPHT DROPS 15 ML BOTTLE EACHEYE SCH ×4 (08:47→20:06)
[2023-01-15] MEDS: BACLOFEN 20 MG TABLET GT SCH ×3 (08:47→20:06)
[2023-01-15] MEDS: BENZOYL PEROXIDE 10% GEL 60 GM TUBE TP SCH ×2 (08:49→20:07)
[2023-01-15] MEDS: REMEDY ESSENTIAL ZINC PASTE 113 GM TP SCH ×2 (08:49→20:07)
[2023-01-15] MEDS: HYDROGEN PEROXIDE 3% 118 ML BOTTLE TP SCH ×2 (09:56→19:25)
[2023-01-15] MEDS: OMEGA-3 FATTY ACIDS/FISH OIL CAPSULE GT SCH (20:06)
[2023-01-15] MEDS: LATANOPROST OPHT DROP 2.5 ML BOTTLE EACHEYE SCH (20:06)
[2023-01-15] MEDS: NUTRISOURCE FIBER 4 GM PACKET GT SCH (20:06)
[2023-01-16] VITALS (10 sets, daily range): TEMP 97.4–98.8; O2SAT 98–99
[2023-01-16] MEDS: IPRATROPIUM BROMIDE 0.5 MG/2.5 ML NEBU NEB SCH ×4 (01:12→19:06)
[2023-01-16] MEDS: ALBUTEROL SULFATE 2.5 MG/3 ML NEBU NEB SCH ×4 (01:12→19:06)
[2023-01-16] MEDS: ACIDOPHILUS/BULGARICUS CHEW TAB GT SCH ×3 (05:28→22:14)
[2023-01-16] MEDS: DOXYCYCLINE HYCLATE 100 MG TABLET GT SCH (05:28)
[2023-01-16] MEDS: VALPROIC ACID 250 MG/5 ML LIQUID UDC GT SCH ×3 (05:28→22:16)
[2023-01-16] MEDS: OMEPRAZOLE 20 MG CAPSULE.DR GT SCH (05:28)
[2023-01-16] MEDS: POLYVINYL ALCOHOL OPHT DROPS 15 ML BOTTLE EACHEYE SCH ×4 (08:24→21:00)
[2023-01-16] MEDS: BACLOFEN 20 MG TABLET GT SCH ×3 (08:26→21:00)
[2023-01-16] MEDS: PHENOBARBITAL 32.4 MG TABLET GT SCH ×2 (08:26→21:00)
[2023-01-16] MEDS: BENZOYL PEROXIDE 10% GEL 60 GM TUBE TP SCH ×2 (08:26→21:00)
[2023-01-16] MEDS: REMEDY ESSENTIAL ZINC PASTE 113 GM TP SCH ×2 (08:26→21:00)
[2023-01-16] MEDS: HYDROGEN PEROXIDE 3% 118 ML BOTTLE TP SCH ×2 (08:41→19:06)
[2023-01-16] MEDS: JEVITY 1.2 1000 ML LIQUID GT PRN (20:40)
[2023-01-16] MEDS: NUTRISOURCE FIBER 4 GM PACKET GT SCH (21:00)
[2023-01-16] MEDS: OMEGA-3 FATTY ACIDS/FISH OIL CAPSULE GT SCH (21:00)
[2023-01-16] MEDS: LATANOPROST OPHT DROP 2.5 ML BOTTLE EACHEYE SCH (21:00)
[2023-01-17] VITALS (10 sets, daily range): TEMP 98.3–98.7; O2SAT 98–99
[2023-01-17] MEDS: IPRATROPIUM BROMIDE 0.5 MG/2.5 ML NEBU NEB SCH ×4 (00:46→19:05)
[2023-01-17] MEDS: ALBUTEROL SULFATE 2.5 MG/3 ML NEBU NEB SCH ×4 (00:46→19:05)
[2023-01-17] MEDS: DOXYCYCLINE HYCLATE 100 MG TABLET GT SCH (06:11)
[2023-01-17] MEDS: ACIDOPHILUS/BULGARICUS CHEW TAB GT SCH ×3 (06:11→21:50)
[2023-01-17] MEDS: VALPROIC ACID 250 MG/5 ML LIQUID UDC GT SCH ×3 (06:11→21:50)
[2023-01-17] MEDS: OMEPRAZOLE 20 MG CAPSULE.DR GT SCH (06:11)
[2023-01-17] MEDS: HYDROGEN PEROXIDE 3% 118 ML BOTTLE TP SCH ×2 (08:57→21:00)
[2023-01-17] MEDS: POLYVINYL ALCOHOL OPHT DROPS 15 ML BOTTLE EACHEYE SCH ×4 (09:35→21:47)
[2023-01-17] MEDS: BENZOYL PEROXIDE 10% GEL 60 GM TUBE TP SCH ×2 (09:36→21:48)
[2023-01-17] MEDS: PHENOBARBITAL 32.4 MG TABLET GT SCH ×2 (09:36→21:48)
[2023-01-17] MEDS: BACLOFEN 20 MG TABLET GT SCH ×3 (09:36→21:48)
[2023-01-17] MEDS: REMEDY ESSENTIAL ZINC PASTE 113 GM TP SCH ×2 (09:36→21:49)
[2023-01-17] MEDS: JEVITY 1.2 1000 ML LIQUID GT PRN (17:00)
[2023-01-17] MEDS: LATANOPROST OPHT DROP 2.5 ML BOTTLE EACHEYE SCH (21:47)
[2023-01-17] MEDS: NUTRISOURCE FIBER 4 GM PACKET GT SCH (21:48)
[2023-01-17] MEDS: OMEGA-3 FATTY ACIDS/FISH OIL CAPSULE GT SCH (21:48)
[2023-01-18] VITALS (9 sets, daily range): TEMP 98.6–98.9; O2SAT 99
[2023-01-18] MEDS: IPRATROPIUM BROMIDE 0.5 MG/2.5 ML NEBU NEB SCH ×4 (01:22→19:30)
[2023-01-18] MEDS: ALBUTEROL SULFATE 2.5 MG/3 ML NEBU NEB SCH ×4 (01:22→19:30)
[2023-01-18] MEDS: DOXYCYCLINE HYCLATE 100 MG TABLET GT SCH (06:24)
[2023-01-18] MEDS: VALPROIC ACID 250 MG/5 ML LIQUID UDC GT SCH ×3 (06:24→22:00)
[2023-01-18] MEDS: ACIDOPHILUS/BULGARICUS CHEW TAB GT SCH ×3 (06:24→22:00)
[2023-01-18] MEDS: OMEPRAZOLE 20 MG CAPSULE.DR GT SCH (06:24)
[2023-01-18] MEDS: PHENOBARBITAL 32.4 MG TABLET GT SCH ×2 (09:30→21:00)
[2023-01-18] MEDS: REMEDY ESSENTIAL ZINC PASTE 113 GM TP SCH ×2 (09:30→21:00)
[2023-01-18] MEDS: BENZOYL PEROXIDE 10% GEL 60 GM TUBE TP SCH ×2 (09:30→21:00)
[2023-01-18] MEDS: POLYVINYL ALCOHOL OPHT DROPS 15 ML BOTTLE EACHEYE SCH ×4 (09:30→21:00)
[2023-01-18] MEDS: BACLOFEN 20 MG TABLET GT SCH ×3 (09:30→21:00)
[2023-01-18] MEDS: HYDROGEN PEROXIDE 3% 118 ML BOTTLE TP SCH ×2 (09:41→21:00)
[2023-01-18] MEDS: JEVITY 1.2 1000 ML LIQUID GT PRN (12:12)
[2023-01-18] MEDS: OMEGA-3 FATTY ACIDS/FISH OIL CAPSULE GT SCH (21:00)
[2023-01-18] MEDS: NUTRISOURCE FIBER 4 GM PACKET GT SCH (21:00)
[2023-01-18] MEDS: LATANOPROST OPHT DROP 2.5 ML BOTTLE EACHEYE SCH (21:00)
[2023-01-19] VITALS (10 sets, daily range): TEMP 97.6–98; O2SAT 94–99
[2023-01-19] MEDS: IPRATROPIUM BROMIDE 0.5 MG/2.5 ML NEBU NEB SCH ×4 (01:06→21:32)
[2023-01-19] MEDS: ALBUTEROL SULFATE 2.5 MG/3 ML NEBU NEB SCH ×4 (01:06→21:32)
[2023-01-19] MEDS: JEVITY 1.2 1000 ML LIQUID GT PRN ×2 (04:30→23:25)
[2023-01-19] MEDS: DOXYCYCLINE HYCLATE 100 MG TABLET GT SCH (05:12)
[2023-01-19] MEDS: VALPROIC ACID 250 MG/5 ML LIQUID UDC GT SCH ×3 (05:12→22:19)
[2023-01-19] MEDS: OMEPRAZOLE 20 MG CAPSULE.DR GT SCH (05:12)
[2023-01-19] MEDS: ACIDOPHILUS/BULGARICUS CHEW TAB GT SCH ×3 (05:12→22:19)
[2023-01-19] MEDS: HYDROGEN PEROXIDE 3% 118 ML BOTTLE TP SCH ×2 (08:14→21:32)
[2023-01-19] MEDS: PHENOBARBITAL 32.4 MG TABLET GT SCH ×2 (09:00→21:00)
[2023-01-19] MEDS: REMEDY ESSENTIAL ZINC PASTE 113 GM TP SCH ×2 (09:00→21:00)
[2023-01-19] MEDS: BENZOYL PEROXIDE 10% GEL 60 GM TUBE TP SCH ×2 (09:00→21:00)
[2023-01-19] MEDS: BACLOFEN 20 MG TABLET GT SCH ×3 (09:00→21:00)
[2023-01-19] MEDS: POLYVINYL ALCOHOL OPHT DROPS 15 ML BOTTLE EACHEYE SCH ×3 (09:00→21:00)
[2023-01-19] MEDS: OMEGA-3 FATTY ACIDS/FISH OIL CAPSULE GT SCH (21:00)
[2023-01-19] MEDS: LATANOPROST OPHT DROP 2.5 ML BOTTLE EACHEYE SCH (21:00)
[2023-01-19] MEDS: NUTRISOURCE FIBER 4 GM PACKET GT SCH (21:00)
[2023-01-20] VITALS (11 sets, daily range): TEMP 97.4–98.1; O2SAT 93–99
[2023-01-20] MEDS: IPRATROPIUM BROMIDE 0.5 MG/2.5 ML NEBU NEB SCH ×4 (01:27→22:16)
[2023-01-20] MEDS: ALBUTEROL SULFATE 2.5 MG/3 ML NEBU NEB SCH ×4 (01:28→22:16)
[2023-01-20] MEDS: ACIDOPHILUS/BULGARICUS CHEW TAB GT SCH ×3 (05:47→22:00)
[2023-01-20] MEDS: OMEPRAZOLE 20 MG CAPSULE.DR GT SCH (05:47)
[2023-01-20] MEDS: VALPROIC ACID 250 MG/5 ML LIQUID UDC GT SCH ×3 (05:47→22:00)
[2023-01-20] MEDS: DOXYCYCLINE HYCLATE 100 MG TABLET GT SCH (05:48)
[2023-01-20] MEDS: HYDROGEN PEROXIDE 3% 118 ML BOTTLE TP SCH ×2 (07:51→22:17)
[2023-01-20] MEDS: POLYVINYL ALCOHOL OPHT DROPS 15 ML BOTTLE EACHEYE SCH ×4 (08:13→20:46)
[2023-01-20] MEDS: REMEDY ESSENTIAL ZINC PASTE 113 GM TP SCH ×2 (08:14→20:46)
[2023-01-20] MEDS: BENZOYL PEROXIDE 10% GEL 60 GM TUBE TP SCH ×2 (08:14→20:46)
[2023-01-20] MEDS: BACLOFEN 20 MG TABLET GT SCH ×3 (08:20→20:46)
[2023-01-20] MEDS: PHENOBARBITAL 32.4 MG TABLET GT SCH ×2 (08:21→20:46)
[2023-01-20] MEDS: LATANOPROST OPHT DROP 2.5 ML BOTTLE EACHEYE SCH (20:46)
[2023-01-20] MEDS: JEVITY 1.2 1000 ML LIQUID GT PRN (20:46)
[2023-01-20] MEDS: NUTRISOURCE FIBER 4 GM PACKET GT SCH (20:46)
[2023-01-20] MEDS: OMEGA-3 FATTY ACIDS/FISH OIL CAPSULE GT SCH (20:46)
[2023-01-21] VITALS (11 sets, daily range): TEMP 97.3–97.6; O2SAT 96–99
[2023-01-21] MEDS: IPRATROPIUM BROMIDE 0.5 MG/2.5 ML NEBU NEB SCH ×4 (02:15→20:15)
[2023-01-21] MEDS: ALBUTEROL SULFATE 2.5 MG/3 ML NEBU NEB SCH ×4 (02:16→20:15)
[2023-01-21] MEDS: OMEPRAZOLE 20 MG CAPSULE.DR GT SCH (06:47)
[2023-01-21] MEDS: ACIDOPHILUS/BULGARICUS CHEW TAB GT SCH ×3 (06:47→22:03)
[2023-01-21] MEDS: VALPROIC ACID 250 MG/5 ML LIQUID UDC GT SCH ×3 (06:47→22:03)
[2023-01-21] MEDS: DOXYCYCLINE HYCLATE 100 MG TABLET GT SCH (06:47)
[2023-01-21] MEDS: PHENOBARBITAL 32.4 MG TABLET GT SCH ×2 (08:59→21:00)
[2023-01-21] MEDS: POLYVINYL ALCOHOL OPHT DROPS 15 ML BOTTLE EACHEYE SCH ×4 (08:59→21:00)
[2023-01-21] MEDS: BACLOFEN 20 MG TABLET GT SCH ×3 (08:59→21:00)
[2023-01-21] MEDS: REMEDY ESSENTIAL ZINC PASTE 113 GM TP SCH ×2 (08:59→21:00)
[2023-01-21] MEDS: BENZOYL PEROXIDE 10% GEL 60 GM TUBE TP SCH ×2 (08:59→21:00)
[2023-01-21] MEDS: HYDROGEN PEROXIDE 3% 118 ML BOTTLE TP SCH ×2 (09:03→21:44)
[2023-01-21] MEDS: LATANOPROST OPHT DROP 2.5 ML BOTTLE EACHEYE SCH (21:00)
[2023-01-21] MEDS: OMEGA-3 FATTY ACIDS/FISH OIL CAPSULE GT SCH (21:00)
[2023-01-21] MEDS: NUTRISOURCE FIBER 4 GM PACKET GT SCH (21:00)
[2023-01-22] VITALS (10 sets, daily range): TEMP 97.5–97.8; O2SAT 98–99
[2023-01-22] MEDS: IPRATROPIUM BROMIDE 0.5 MG/2.5 ML NEBU NEB SCH ×4 (00:50→19:29)
[2023-01-22] MEDS: ALBUTEROL SULFATE 2.5 MG/3 ML NEBU NEB SCH ×4 (00:50→19:29)
[2023-01-22] MEDS: ACIDOPHILUS/BULGARICUS CHEW TAB GT SCH ×3 (05:56→21:17)
[2023-01-22] MEDS: DOXYCYCLINE HYCLATE 100 MG TABLET GT SCH (05:56)
[2023-01-22] MEDS: VALPROIC ACID 250 MG/5 ML LIQUID UDC GT SCH ×3 (05:56→21:17)
[2023-01-22] MEDS: OMEPRAZOLE 20 MG CAPSULE.DR GT SCH (05:56)
[2023-01-22] MEDS: POLYVINYL ALCOHOL OPHT DROPS 15 ML BOTTLE EACHEYE SCH ×4 (09:17→21:17)
[2023-01-22] MEDS: REMEDY ESSENTIAL ZINC PASTE 113 GM TP SCH ×2 (09:18→21:17)
[2023-01-22] MEDS: BENZOYL PEROXIDE 10% GEL 60 GM TUBE TP SCH ×2 (09:18→21:17)
[2023-01-22] MEDS: PHENOBARBITAL 32.4 MG TABLET GT SCH ×2 (09:18→21:17)
[2023-01-22] MEDS: BACLOFEN 20 MG TABLET GT SCH ×3 (09:18→21:17)
[2023-01-22] MEDS: JEVITY 1.2 1000 ML LIQUID GT PRN (09:24)
[2023-01-22] MEDS: HYDROGEN PEROXIDE 3% 118 ML BOTTLE TP SCH ×2 (09:35→19:29)
[2023-01-22] MEDS: OMEGA-3 FATTY ACIDS/FISH OIL CAPSULE GT SCH (21:17)
[2023-01-22] MEDS: LATANOPROST OPHT DROP 2.5 ML BOTTLE EACHEYE SCH (21:17)
[2023-01-22] MEDS: NUTRISOURCE FIBER 4 GM PACKET GT SCH (21:17)
[2023-01-23] VITALS (10 sets, daily range): TEMP 97.4–97.9; O2SAT 98–99
[2023-01-23] MEDS: IPRATROPIUM BROMIDE 0.5 MG/2.5 ML NEBU NEB SCH ×4 (01:15→19:11)
[2023-01-23] MEDS: ALBUTEROL SULFATE 2.5 MG/3 ML NEBU NEB SCH ×4 (01:15→19:11)
[2023-01-23] MEDS: ACIDOPHILUS/BULGARICUS CHEW TAB GT SCH ×3 (05:29→21:41)
[2023-01-23] MEDS: VALPROIC ACID 250 MG/5 ML LIQUID UDC GT SCH ×3 (05:29→21:41)
[2023-01-23] MEDS: DOXYCYCLINE HYCLATE 100 MG TABLET GT SCH (05:29)
[2023-01-23] MEDS: JEVITY 1.2 1000 ML LIQUID GT PRN (05:29)
[2023-01-23] MEDS: OMEPRAZOLE 20 MG CAPSULE.DR GT SCH (05:29)
[2023-01-23] MEDS: HYDROGEN PEROXIDE 3% 118 ML BOTTLE TP SCH ×2 (07:35→21:00)
[2023-01-23] MEDS: BENZOYL PEROXIDE 10% GEL 60 GM TUBE TP SCH ×2 (09:06→21:40)
[2023-01-23] MEDS: PHENOBARBITAL 32.4 MG TABLET GT SCH ×2 (09:06→21:40)
[2023-01-23] MEDS: BACLOFEN 20 MG TABLET GT SCH ×3 (09:06→21:39)
[2023-01-23] MEDS: POLYVINYL ALCOHOL OPHT DROPS 15 ML BOTTLE EACHEYE SCH ×4 (09:06→21:37)
[2023-01-23] MEDS: REMEDY ESSENTIAL ZINC PASTE 113 GM TP SCH ×2 (09:06→21:40)
[2023-01-23] MEDS: OMEGA-3 FATTY ACIDS/FISH OIL CAPSULE GT SCH (21:37)
[2023-01-23] MEDS: LATANOPROST OPHT DROP 2.5 ML BOTTLE EACHEYE SCH (21:37)
[2023-01-23] MEDS: NUTRISOURCE FIBER 4 GM PACKET GT SCH (21:40)
[2023-01-24] VITALS (10 sets, daily range): TEMP 97.8–98.2; O2SAT 98–99
[2023-01-24] MEDS: JEVITY 1.2 1000 ML LIQUID GT PRN (00:30)
[2023-01-24] MEDS: IPRATROPIUM BROMIDE 0.5 MG/2.5 ML NEBU NEB SCH ×4 (01:38→19:25)
[2023-01-24] MEDS: ALBUTEROL SULFATE 2.5 MG/3 ML NEBU NEB SCH ×4 (01:38→19:25)
[2023-01-24] MEDS: OMEPRAZOLE 20 MG CAPSULE.DR GT SCH (06:08)
[2023-01-24] MEDS: DOXYCYCLINE HYCLATE 100 MG TABLET GT SCH (06:08)
[2023-01-24] MEDS: ACIDOPHILUS/BULGARICUS CHEW TAB GT SCH ×3 (06:08→21:33)
[2023-01-24] MEDS: VALPROIC ACID 250 MG/5 ML LIQUID UDC GT SCH ×3 (06:08→21:33)
[2023-01-24] MEDS: REMEDY ESSENTIAL ZINC PASTE 113 GM TP SCH ×2 (09:00→21:33)
[2023-01-24] MEDS: BENZOYL PEROXIDE 10% GEL 60 GM TUBE TP SCH ×2 (09:00→21:33)
[2023-01-24] MEDS: POLYVINYL ALCOHOL OPHT DROPS 15 ML BOTTLE EACHEYE SCH ×4 (09:21→21:33)
[2023-01-24] MEDS: PHENOBARBITAL 32.4 MG TABLET GT SCH ×2 (09:23→21:33)
[2023-01-24] MEDS: BACLOFEN 20 MG TABLET GT SCH ×3 (09:23→21:33)
[2023-01-24] MEDS: HYDROGEN PEROXIDE 3% 118 ML BOTTLE TP SCH ×2 (09:33→20:50)
[2023-01-24] MEDS: OMEGA-3 FATTY ACIDS/FISH OIL CAPSULE GT SCH (21:33)
[2023-01-24] MEDS: NUTRISOURCE FIBER 4 GM PACKET GT SCH (21:33)
[2023-01-24] MEDS: LATANOPROST OPHT DROP 2.5 ML BOTTLE EACHEYE SCH (21:33)
[2023-01-25] VITALS (10 sets, daily range): TEMP 97.3–97.6; O2SAT 98–99
[2023-01-25] MEDS: IPRATROPIUM BROMIDE 0.5 MG/2.5 ML NEBU NEB SCH ×4 (00:50→19:20)
[2023-01-25] MEDS: ALBUTEROL SULFATE 2.5 MG/3 ML NEBU NEB SCH ×4 (00:50→19:20)
[2023-01-25] MEDS: ACIDOPHILUS/BULGARICUS CHEW TAB GT SCH ×3 (05:28→21:13)
[2023-01-25] MEDS: OMEPRAZOLE 20 MG CAPSULE.DR GT SCH (05:28)
[2023-01-25] MEDS: DOXYCYCLINE HYCLATE 100 MG TABLET GT SCH (05:28)
[2023-01-25] MEDS: VALPROIC ACID 250 MG/5 ML LIQUID UDC GT SCH ×3 (05:28→21:13)
[2023-01-25] MEDS: HYDROGEN PEROXIDE 3% 118 ML BOTTLE TP SCH ×2 (09:19→20:50)
[2023-01-25] MEDS: POLYVINYL ALCOHOL OPHT DROPS 15 ML BOTTLE EACHEYE SCH ×4 (09:44→21:12)
[2023-01-25] MEDS: BACLOFEN 20 MG TABLET GT SCH ×3 (09:46→21:13)
[2023-01-25] MEDS: BENZOYL PEROXIDE 10% GEL 60 GM TUBE TP SCH ×2 (09:46→21:13)
[2023-01-25] MEDS: REMEDY ESSENTIAL ZINC PASTE 113 GM TP SCH ×2 (09:46→21:13)
[2023-01-25] MEDS: PHENOBARBITAL 32.4 MG TABLET GT SCH ×2 (09:46→21:13)
[2023-01-25] MEDS: JEVITY 1.2 1000 ML LIQUID GT PRN ×2 (18:23)
[2023-01-25] MEDS: OMEGA-3 FATTY ACIDS/FISH OIL CAPSULE GT SCH (21:13)
[2023-01-25] MEDS: NUTRISOURCE FIBER 4 GM PACKET GT SCH (21:13)
[2023-01-25] MEDS: LATANOPROST OPHT DROP 2.5 ML BOTTLE EACHEYE SCH (21:13)
[2023-01-26] VITALS (10 sets, daily range): TEMP 97.4–98.1; O2SAT 96–99
[2023-01-26] MEDS: ALBUTEROL SULFATE 2.5 MG/3 ML NEBU NEB SCH ×4 (00:55→19:06)
[2023-01-26] MEDS: IPRATROPIUM BROMIDE 0.5 MG/2.5 ML NEBU NEB SCH ×4 (00:55→19:06)
[2023-01-26] MEDS: OMEPRAZOLE 20 MG CAPSULE.DR GT SCH (05:34)
[2023-01-26] MEDS: ACIDOPHILUS/BULGARICUS CHEW TAB GT SCH ×3 (05:34→22:47)
[2023-01-26] MEDS: DOXYCYCLINE HYCLATE 100 MG TABLET GT SCH (05:34)
[2023-01-26] MEDS: VALPROIC ACID 250 MG/5 ML LIQUID UDC GT SCH ×3 (05:34→22:47)
[2023-01-26] MEDS: HYDROGEN PEROXIDE 3% 118 ML BOTTLE TP SCH ×2 (07:39→19:06)
[2023-01-26] MEDS: BACLOFEN 20 MG TABLET GT SCH ×3 (08:51→20:33)
[2023-01-26] MEDS: PHENOBARBITAL 32.4 MG TABLET GT SCH ×2 (08:51→20:33)
[2023-01-26] MEDS: REMEDY ESSENTIAL ZINC PASTE 113 GM TP SCH ×2 (08:55→20:34)
[2023-01-26] MEDS: POLYVINYL ALCOHOL OPHT DROPS 15 ML BOTTLE EACHEYE SCH ×4 (09:03→20:34)
[2023-01-26] MEDS: BENZOYL PEROXIDE 10% GEL 60 GM TUBE TP SCH ×2 (09:03→21:00)
[2023-01-26] MEDS: JEVITY 1.2 1000 ML LIQUID GT PRN (14:18)
[2023-01-26] MEDS: NUTRISOURCE FIBER 4 GM PACKET GT SCH (20:33)
[2023-01-26] MEDS: OMEGA-3 FATTY ACIDS/FISH OIL CAPSULE GT SCH (20:34)
[2023-01-26] MEDS: LATANOPROST OPHT DROP 2.5 ML BOTTLE EACHEYE SCH (20:34)
[2023-01-27] VITALS (10 sets, daily range): BP systolic 93; BP diastolic 50; TEMP 98.5; O2SAT 96–99
[2023-01-27] MEDS: ALBUTEROL SULFATE 2.5 MG/3 ML NEBU NEB SCH ×4 (01:04→19:19)
[2023-01-27] MEDS: IPRATROPIUM BROMIDE 0.5 MG/2.5 ML NEBU NEB SCH ×4 (01:04→19:19)
[2023-01-27] MEDS: OMEPRAZOLE 20 MG CAPSULE.DR GT SCH (05:06)
[2023-01-27] MEDS: ACIDOPHILUS/BULGARICUS CHEW TAB GT SCH ×3 (05:06→21:36)
[2023-01-27] MEDS: VALPROIC ACID 250 MG/5 ML LIQUID UDC GT SCH ×3 (05:07→21:41)
[2023-01-27] MEDS: DOXYCYCLINE HYCLATE 100 MG TABLET GT SCH (05:16)
[2023-01-27] MEDS: HYDROGEN PEROXIDE 3% 118 ML BOTTLE TP SCH ×2 (07:54→19:19)
[2023-01-27] MEDS: POLYVINYL ALCOHOL OPHT DROPS 15 ML BOTTLE EACHEYE SCH ×4 (08:20→21:34)
[2023-01-27] MEDS: REMEDY ESSENTIAL ZINC PASTE 113 GM TP SCH ×2 (08:20→21:36)
[2023-01-27] MEDS: BACLOFEN 20 MG TABLET GT SCH ×3 (08:20→21:42)
[2023-01-27] MEDS: PHENOBARBITAL 32.4 MG TABLET GT SCH ×2 (08:20→21:41)
[2023-01-27] MEDS: BENZOYL PEROXIDE 10% GEL 60 GM TUBE TP SCH ×2 (08:20→21:36)
[2023-01-27] MEDS: JEVITY 1.2 1000 ML LIQUID GT PRN (10:36)
[2023-01-27] MEDS: NUTRISOURCE FIBER 4 GM PACKET GT SCH (21:34)
[2023-01-27] MEDS: OMEGA-3 FATTY ACIDS/FISH OIL CAPSULE GT SCH (21:34)
[2023-01-27] MEDS: LATANOPROST OPHT DROP 2.5 ML BOTTLE EACHEYE SCH (21:34)
[2023-01-28] VITALS (10 sets, daily range): TEMP 97.6–97.9; O2SAT 96–99
[2023-01-28] MEDS: ALBUTEROL SULFATE 2.5 MG/3 ML NEBU NEB SCH ×4 (01:22→20:45)
[2023-01-28] MEDS: IPRATROPIUM BROMIDE 0.5 MG/2.5 ML NEBU NEB SCH ×4 (01:22→20:45)
[2023-01-28] MEDS: OMEPRAZOLE 20 MG CAPSULE.DR GT SCH (06:23)
[2023-01-28] MEDS: DOXYCYCLINE HYCLATE 100 MG TABLET GT SCH (06:23)
[2023-01-28] MEDS: ACIDOPHILUS/BULGARICUS CHEW TAB GT SCH ×3 (06:23→21:21)
[2023-01-28] MEDS: VALPROIC ACID 250 MG/5 ML LIQUID UDC GT SCH ×3 (06:58→21:21)
[2023-01-28] MEDS: PHENOBARBITAL 32.4 MG TABLET GT SCH ×2 (08:54→20:06)
[2023-01-28] MEDS: BACLOFEN 20 MG TABLET GT SCH ×3 (08:54→20:05)
[2023-01-28] MEDS: REMEDY ESSENTIAL ZINC PASTE 113 GM TP SCH ×2 (08:54→20:08)
[2023-01-28] MEDS: POLYVINYL ALCOHOL OPHT DROPS 15 ML BOTTLE EACHEYE SCH ×4 (08:54→20:05)
[2023-01-28] MEDS: BENZOYL PEROXIDE 10% GEL 60 GM TUBE TP SCH ×2 (08:54→20:07)
[2023-01-28] MEDS: HYDROGEN PEROXIDE 3% 118 ML BOTTLE TP SCH ×2 (09:46→22:01)
[2023-01-28] MEDS: LATANOPROST OPHT DROP 2.5 ML BOTTLE EACHEYE SCH (20:05)
[2023-01-28] MEDS: OMEGA-3 FATTY ACIDS/FISH OIL CAPSULE GT SCH (20:05)
[2023-01-28] MEDS: NUTRISOURCE FIBER 4 GM PACKET GT SCH (20:06)
[2023-01-29] VITALS (10 sets, daily range): TEMP 97.7–97.8; O2SAT 95–98
[2023-01-29] MEDS: JEVITY 1.2 1000 ML LIQUID GT PRN ×2 (00:38→23:04)
[2023-01-29] MEDS: ALBUTEROL SULFATE 2.5 MG/3 ML NEBU NEB SCH ×4 (01:29→20:13)
[2023-01-29] MEDS: IPRATROPIUM BROMIDE 0.5 MG/2.5 ML NEBU NEB SCH ×4 (01:29→20:13)
[2023-01-29] MEDS: ACIDOPHILUS/BULGARICUS CHEW TAB GT SCH ×3 (05:23→21:17)
[2023-01-29] MEDS: DOXYCYCLINE HYCLATE 100 MG TABLET GT SCH (05:23)
[2023-01-29] MEDS: OMEPRAZOLE 20 MG CAPSULE.DR GT SCH (05:23)
[2023-01-29] MEDS: VALPROIC ACID 250 MG/5 ML LIQUID UDC GT SCH ×3 (05:23→21:17)
[2023-01-29] MEDS: HYDROGEN PEROXIDE 3% 118 ML BOTTLE TP SCH ×2 (09:13→21:00)
[2023-01-29] MEDS: POLYVINYL ALCOHOL OPHT DROPS 15 ML BOTTLE EACHEYE SCH ×4 (09:34→20:47)
[2023-01-29] MEDS: BACLOFEN 20 MG TABLET GT SCH ×3 (09:44→20:47)
[2023-01-29] MEDS: BENZOYL PEROXIDE 10% GEL 60 GM TUBE TP SCH ×2 (09:45→20:49)
[2023-01-29] MEDS: PHENOBARBITAL 32.4 MG TABLET GT SCH ×2 (09:45→20:49)
[2023-01-29] MEDS: REMEDY ESSENTIAL ZINC PASTE 113 GM TP SCH ×2 (09:45→20:49)
[2023-01-29] MEDS: LATANOPROST OPHT DROP 2.5 ML BOTTLE EACHEYE SCH (20:47)
[2023-01-29] MEDS: OMEGA-3 FATTY ACIDS/FISH OIL CAPSULE GT SCH (20:47)
[2023-01-29] MEDS: NUTRISOURCE FIBER 4 GM PACKET GT SCH (20:48)
[2023-01-30] VITALS (11 sets, daily range): BP systolic 108; BP diastolic 40; TEMP 97.6–97.8; O2SAT 95–99
[2023-01-30] MEDS: IPRATROPIUM BROMIDE 0.5 MG/2.5 ML NEBU NEB SCH ×4 (01:48→19:14)
[2023-01-30] MEDS: ALBUTEROL SULFATE 2.5 MG/3 ML NEBU NEB SCH ×4 (01:48→19:14)
[2023-01-30] MEDS: VALPROIC ACID 250 MG/5 ML LIQUID UDC GT SCH ×3 (05:18→22:00)
[2023-01-30] MEDS: DOXYCYCLINE HYCLATE 100 MG TABLET GT SCH (05:18)
[2023-01-30] MEDS: OMEPRAZOLE 20 MG CAPSULE.DR GT SCH (05:18)
[2023-01-30] MEDS: ACIDOPHILUS/BULGARICUS CHEW TAB GT SCH ×3 (05:18→22:00)
[2023-01-30] MEDS: HYDROGEN PEROXIDE 3% 118 ML BOTTLE TP SCH ×2 (08:22→21:09)
[2023-01-30] MEDS: POLYVINYL ALCOHOL OPHT DROPS 15 ML BOTTLE EACHEYE SCH ×4 (09:28→21:08)
[2023-01-30] MEDS: PHENOBARBITAL 32.4 MG TABLET GT SCH ×2 (09:32→21:09)
[2023-01-30] MEDS: REMEDY ESSENTIAL ZINC PASTE 113 GM TP SCH ×2 (09:32→21:09)
[2023-01-30] MEDS: BACLOFEN 20 MG TABLET GT SCH ×3 (09:32→21:09)
[2023-01-30] MEDS: BENZOYL PEROXIDE 10% GEL 60 GM TUBE TP SCH ×2 (09:32→21:09)
[2023-01-30] MEDS: JEVITY 1.2 1000 ML LIQUID GT PRN (18:01)
[2023-01-30] MEDS: LATANOPROST OPHT DROP 2.5 ML BOTTLE EACHEYE SCH (21:08)
[2023-01-30] MEDS: NUTRISOURCE FIBER 4 GM PACKET GT SCH (21:09)
[2023-01-30] MEDS: OMEGA-3 FATTY ACIDS/FISH OIL CAPSULE GT SCH (21:09)
[2023-01-31] VITALS (9 sets, daily range): TEMP 98; O2SAT 96–99
[2023-01-31] MEDS: ALBUTEROL SULFATE 2.5 MG/3 ML NEBU NEB SCH ×4 (01:42→19:10)
[2023-01-31] MEDS: IPRATROPIUM BROMIDE 0.5 MG/2.5 ML NEBU NEB SCH ×4 (01:42→19:10)
[2023-01-31] MEDS: ACIDOPHILUS/BULGARICUS CHEW TAB GT SCH ×3 (06:35→21:25)
[2023-01-31] MEDS: VALPROIC ACID 250 MG/5 ML LIQUID UDC GT SCH ×3 (06:35→22:06)
[2023-01-31] MEDS: DOXYCYCLINE HYCLATE 100 MG TABLET GT SCH (06:35)
[2023-01-31] MEDS: OMEPRAZOLE 20 MG CAPSULE.DR GT SCH (06:35)
[2023-01-31] MEDS: HYDROGEN PEROXIDE 3% 118 ML BOTTLE TP SCH ×2 (07:21→21:27)
[2023-01-31] MEDS: POLYVINYL ALCOHOL OPHT DROPS 15 ML BOTTLE EACHEYE SCH ×4 (08:26→21:24)
[2023-01-31] MEDS: BENZOYL PEROXIDE 10% GEL 60 GM TUBE TP SCH ×2 (08:27→21:24)
[2023-01-31] MEDS: PHENOBARBITAL 32.4 MG TABLET GT SCH ×2 (08:27→21:35)
[2023-01-31] MEDS: BACLOFEN 20 MG TABLET GT SCH ×3 (08:27→21:35)
[2023-01-31] MEDS: REMEDY ESSENTIAL ZINC PASTE 113 GM TP SCH ×2 (08:32→21:24)
[2023-01-31] MEDS: OMEGA-3 FATTY ACIDS/FISH OIL CAPSULE GT SCH (21:24)
[2023-01-31] MEDS: LATANOPROST OPHT DROP 2.5 ML BOTTLE EACHEYE SCH (21:24)
[2023-01-31] MEDS: NUTRISOURCE FIBER 4 GM PACKET GT SCH (21:24)
[2023-02-01] VITALS (11 sets, daily range): BP systolic 106; BP diastolic 66; TEMP 97.6–98.6; O2SAT 97–99
[2023-02-01] MEDS: IPRATROPIUM BROMIDE 0.5 MG/2.5 ML NEBU NEB SCH ×4 (01:53→19:08)
[2023-02-01] MEDS: ALBUTEROL SULFATE 2.5 MG/3 ML NEBU NEB SCH ×4 (01:53→19:08)
[2023-02-01] MEDS: JEVITY 1.2 1000 ML LIQUID GT PRN ×2 (03:00→09:58)
[2023-02-01] MEDS: OMEPRAZOLE 20 MG CAPSULE.DR GT SCH (06:00)
[2023-02-01] MEDS: VALPROIC ACID 250 MG/5 ML LIQUID UDC GT SCH ×3 (06:00→21:43)
[2023-02-01] MEDS: ACIDOPHILUS/BULGARICUS CHEW TAB GT SCH ×3 (06:00→21:43)
[2023-02-01] MEDS: DOXYCYCLINE HYCLATE 100 MG TABLET GT SCH (06:00)
[2023-02-01] MEDS: BACLOFEN 20 MG TABLET GT SCH ×3 (08:57→21:42)
[2023-02-01] MEDS: BENZOYL PEROXIDE 10% GEL 60 GM TUBE TP SCH ×2 (08:57→21:43)
[2023-02-01] MEDS: POLYVINYL ALCOHOL OPHT DROPS 15 ML BOTTLE EACHEYE SCH ×4 (08:57→21:42)
[2023-02-01] MEDS: REMEDY ESSENTIAL ZINC PASTE 113 GM TP SCH ×2 (08:57→21:43)
[2023-02-01] MEDS: PHENOBARBITAL 32.4 MG TABLET GT SCH ×2 (08:57→21:43)
[2023-02-01] MEDS: HYDROGEN PEROXIDE 3% 118 ML BOTTLE TP SCH ×2 (09:00→21:26)
[2023-02-01] MEDS: LATANOPROST OPHT DROP 2.5 ML BOTTLE EACHEYE SCH (21:42)
[2023-02-01] MEDS: OMEGA-3 FATTY ACIDS/FISH OIL CAPSULE GT SCH (21:42)
[2023-02-01] MEDS: NUTRISOURCE FIBER 4 GM PACKET GT SCH (21:43)
[2023-02-02] VITALS (10 sets, daily range): TEMP 97.4–97.7; O2SAT 98–99
[2023-02-02] MEDS: IPRATROPIUM BROMIDE 0.5 MG/2.5 ML NEBU NEB SCH ×4 (00:48→19:17)
[2023-02-02] MEDS: ALBUTEROL SULFATE 2.5 MG/3 ML NEBU NEB SCH ×4 (00:48→19:17)
[2023-02-02] MEDS: OMEPRAZOLE 20 MG CAPSULE.DR GT SCH (06:05)
[2023-02-02] MEDS: DOXYCYCLINE HYCLATE 100 MG TABLET GT SCH (06:05)
[2023-02-02] MEDS: ACIDOPHILUS/BULGARICUS CHEW TAB GT SCH ×3 (06:05→21:54)
[2023-02-02] MEDS: VALPROIC ACID 250 MG/5 ML LIQUID UDC GT SCH ×3 (06:05→21:59)
[2023-02-02] MEDS: POLYVINYL ALCOHOL OPHT DROPS 15 ML BOTTLE EACHEYE SCH ×4 (09:19→21:53)
[2023-02-02] MEDS: REMEDY ESSENTIAL ZINC PASTE 113 GM TP SCH ×2 (09:19→21:54)
[2023-02-02] MEDS: BACLOFEN 20 MG TABLET GT SCH ×3 (09:19→21:59)
[2023-02-02] MEDS: PHENOBARBITAL 32.4 MG TABLET GT SCH ×2 (09:19→21:58)
[2023-02-02] MEDS: BENZOYL PEROXIDE 10% GEL 60 GM TUBE TP SCH ×2 (09:19→21:53)
[2023-02-02] MEDS: HYDROGEN PEROXIDE 3% 118 ML BOTTLE TP SCH ×2 (09:40→19:17)
[2023-02-02] MEDS: LATANOPROST OPHT DROP 2.5 ML BOTTLE EACHEYE SCH (21:53)
[2023-02-02] MEDS: NUTRISOURCE FIBER 4 GM PACKET GT SCH (21:58)
[2023-02-02] MEDS: OMEGA-3 FATTY ACIDS/FISH OIL CAPSULE GT SCH (21:59)
[2023-02-03] VITALS (10 sets, daily range): TEMP 97.6; O2SAT 98–99
[2023-02-03] MEDS: ALBUTEROL SULFATE 2.5 MG/3 ML NEBU NEB SCH ×4 (01:30→19:25)
[2023-02-03] MEDS: IPRATROPIUM BROMIDE 0.5 MG/2.5 ML NEBU NEB SCH ×4 (01:30→19:25)
[2023-02-03] MEDS: JEVITY 1.2 1000 ML LIQUID GT PRN ×2 (01:43→19:03)
[2023-02-03] MEDS: VALPROIC ACID 250 MG/5 ML LIQUID UDC GT SCH ×3 (06:21→21:37)
[2023-02-03] MEDS: ACIDOPHILUS/BULGARICUS CHEW TAB GT SCH ×3 (06:21→21:37)
[2023-02-03] MEDS: OMEPRAZOLE 20 MG CAPSULE.DR GT SCH (06:21)
[2023-02-03] MEDS: DOXYCYCLINE HYCLATE 100 MG TABLET GT SCH (06:21)
[2023-02-03] MEDS: HYDROGEN PEROXIDE 3% 118 ML BOTTLE TP SCH ×2 (07:35→19:25)
[2023-02-03] MEDS: POLYVINYL ALCOHOL OPHT DROPS 15 ML BOTTLE EACHEYE SCH ×4 (08:09→21:36)
[2023-02-03] MEDS: PHENOBARBITAL 32.4 MG TABLET GT SCH ×2 (08:13→21:36)
[2023-02-03] MEDS: BACLOFEN 20 MG TABLET GT SCH ×3 (08:13→21:36)
[2023-02-03] MEDS: REMEDY ESSENTIAL ZINC PASTE 113 GM TP SCH ×2 (08:14→21:37)
[2023-02-03] MEDS: BENZOYL PEROXIDE 10% GEL 60 GM TUBE TP SCH ×2 (08:14→21:36)
[2023-02-03] MEDS: LATANOPROST OPHT DROP 2.5 ML BOTTLE EACHEYE SCH (21:36)
[2023-02-03] MEDS: OMEGA-3 FATTY ACIDS/FISH OIL CAPSULE GT SCH (21:36)
[2023-02-03] MEDS: NUTRISOURCE FIBER 4 GM PACKET GT SCH (21:36)
[2023-02-04] VITALS (12 sets, daily range): BP systolic 108; BP diastolic 67; TEMP 97.4–97.6; O2SAT 97–99
[2023-02-04] MEDS: IPRATROPIUM BROMIDE 0.5 MG/2.5 ML NEBU NEB SCH ×4 (01:33→19:40)
[2023-02-04] MEDS: ALBUTEROL SULFATE 2.5 MG/3 ML NEBU NEB SCH ×4 (01:33→19:40)
[2023-02-04] MEDS: ACIDOPHILUS/BULGARICUS CHEW TAB GT SCH ×3 (06:14→21:37)
[2023-02-04] MEDS: OMEPRAZOLE 20 MG CAPSULE.DR GT SCH (06:14)
[2023-02-04] MEDS: VALPROIC ACID 250 MG/5 ML LIQUID UDC GT SCH ×3 (06:14→21:37)
[2023-02-04] MEDS: DOXYCYCLINE HYCLATE 100 MG TABLET GT SCH (06:14)
[2023-02-04] MEDS: POLYVINYL ALCOHOL OPHT DROPS 15 ML BOTTLE EACHEYE SCH ×4 (08:41→20:02)
[2023-02-04] MEDS: BENZOYL PEROXIDE 10% GEL 60 GM TUBE TP SCH ×2 (08:42→20:04)
[2023-02-04] MEDS: REMEDY ESSENTIAL ZINC PASTE 113 GM TP SCH ×2 (08:42→20:04)
[2023-02-04] MEDS: PHENOBARBITAL 32.4 MG TABLET GT SCH ×2 (08:45→20:04)
[2023-02-04] MEDS: BACLOFEN 20 MG TABLET GT SCH ×3 (08:45→20:03)
[2023-02-04] MEDS: HYDROGEN PEROXIDE 3% 118 ML BOTTLE TP SCH ×2 (09:19→20:39)
[2023-02-04] MEDS: JEVITY 1.2 1000 ML LIQUID GT PRN (14:49)
[2023-02-04] MEDS: OMEGA-3 FATTY ACIDS/FISH OIL CAPSULE GT SCH (20:02)
[2023-02-04] MEDS: LATANOPROST OPHT DROP 2.5 ML BOTTLE EACHEYE SCH (20:02)
[2023-02-04] MEDS: NUTRISOURCE FIBER 4 GM PACKET GT SCH (20:03)
[2023-02-05] VITALS (9 sets, daily range): TEMP 97.5–97.8; O2SAT 97–99
[2023-02-05] MEDS: IPRATROPIUM BROMIDE 0.5 MG/2.5 ML NEBU NEB SCH ×4 (01:29→19:50)
[2023-02-05] MEDS: ALBUTEROL SULFATE 2.5 MG/3 ML NEBU NEB SCH ×4 (01:29→19:50)
[2023-02-05] MEDS: VALPROIC ACID 250 MG/5 ML LIQUID UDC GT SCH ×3 (05:10→21:21)
[2023-02-05] MEDS: OMEPRAZOLE 20 MG CAPSULE.DR GT SCH (05:10)
[2023-02-05] MEDS: DOXYCYCLINE HYCLATE 100 MG TABLET GT SCH (05:10)
[2023-02-05] MEDS: ACIDOPHILUS/BULGARICUS CHEW TAB GT SCH ×3 (05:10→21:21)
[2023-02-05] MEDS: BENZOYL PEROXIDE 10% GEL 60 GM TUBE TP SCH ×2 (08:41→21:20)
[2023-02-05] MEDS: PHENOBARBITAL 32.4 MG TABLET GT SCH ×2 (08:41→21:20)
[2023-02-05] MEDS: REMEDY ESSENTIAL ZINC PASTE 113 GM TP SCH ×2 (08:41→21:20)
[2023-02-05] MEDS: POLYVINYL ALCOHOL OPHT DROPS 15 ML BOTTLE EACHEYE SCH ×4 (08:41→21:19)
[2023-02-05] MEDS: BACLOFEN 20 MG TABLET GT SCH ×3 (08:41→21:20)
[2023-02-05] MEDS: HYDROGEN PEROXIDE 3% 118 ML BOTTLE TP SCH ×2 (09:21→21:12)
[2023-02-05] MEDS: JEVITY 1.2 1000 ML LIQUID GT PRN (13:55)
[2023-02-05] MEDS: LATANOPROST OPHT DROP 2.5 ML BOTTLE EACHEYE SCH (21:19)
[2023-02-05] MEDS: NUTRISOURCE FIBER 4 GM PACKET GT SCH (21:20)
[2023-02-05] MEDS: OMEGA-3 FATTY ACIDS/FISH OIL CAPSULE GT SCH (21:20)
[2023-02-06] VITALS (10 sets, daily range): TEMP 97.8–98.3; O2SAT 97–99
[2023-02-06] MEDS: ALBUTEROL SULFATE 2.5 MG/3 ML NEBU NEB SCH ×4 (01:00→19:17)
[2023-02-06] MEDS: IPRATROPIUM BROMIDE 0.5 MG/2.5 ML NEBU NEB SCH ×4 (01:00→19:17)
[2023-02-06] MEDS: JEVITY 1.2 1000 ML LIQUID GT PRN (04:43)
[2023-02-06] MEDS: ACIDOPHILUS/BULGARICUS CHEW TAB GT SCH ×3 (05:05→21:05)
[2023-02-06] MEDS: VALPROIC ACID 250 MG/5 ML LIQUID UDC GT SCH ×3 (05:05→21:03)
[2023-02-06] MEDS: OMEPRAZOLE 20 MG CAPSULE.DR GT SCH (05:05)
[2023-02-06] MEDS: DOXYCYCLINE HYCLATE 100 MG TABLET GT SCH (05:05)
[2023-02-06] MEDS: HYDROGEN PEROXIDE 3% 118 ML BOTTLE TP SCH ×2 (07:07→19:17)
[2023-02-06] MEDS: BENZOYL PEROXIDE 10% GEL 60 GM TUBE TP SCH ×2 (08:28→21:02)
[2023-02-06] MEDS: PHENOBARBITAL 32.4 MG TABLET GT SCH ×2 (08:28→21:09)
[2023-02-06] MEDS: BACLOFEN 20 MG TABLET GT SCH ×3 (08:28→21:09)
[2023-02-06] MEDS: POLYVINYL ALCOHOL OPHT DROPS 15 ML BOTTLE EACHEYE SCH ×4 (08:28→21:02)
[2023-02-06] MEDS: REMEDY ESSENTIAL ZINC PASTE 113 GM TP SCH ×2 (08:28→21:03)
[2023-02-06] MEDS: LATANOPROST OPHT DROP 2.5 ML BOTTLE EACHEYE SCH (21:02)
[2023-02-06] MEDS: NUTRISOURCE FIBER 4 GM PACKET GT SCH (21:02)
[2023-02-06] MEDS: OMEGA-3 FATTY ACIDS/FISH OIL CAPSULE GT SCH (21:02)
[2023-02-07] VITALS (12 sets, daily range): TEMP 98.2; O2SAT 96–99
[2023-02-07] MEDS: JEVITY 1.2 1000 ML LIQUID GT PRN ×2 (00:10→18:50)
[2023-02-07] MEDS: ALBUTEROL SULFATE 2.5 MG/3 ML NEBU NEB SCH ×4 (02:07→19:16)
[2023-02-07] MEDS: IPRATROPIUM BROMIDE 0.5 MG/2.5 ML NEBU NEB SCH ×4 (02:07→19:16)
[2023-02-07] MEDS: DOXYCYCLINE HYCLATE 100 MG TABLET GT SCH (05:04)
[2023-02-07] MEDS: VALPROIC ACID 250 MG/5 ML LIQUID UDC GT SCH ×3 (05:04→21:30)
[2023-02-07] MEDS: OMEPRAZOLE 20 MG CAPSULE.DR GT SCH (05:04)
[2023-02-07] MEDS: ACIDOPHILUS/BULGARICUS CHEW TAB GT SCH ×3 (05:04→21:31)
[2023-02-07] MEDS: HYDROGEN PEROXIDE 3% 118 ML BOTTLE TP SCH (08:55)
[2023-02-07] MEDS: POLYVINYL ALCOHOL OPHT DROPS 15 ML BOTTLE EACHEYE SCH ×4 (08:57→21:23)
[2023-02-07] MEDS: BENZOYL PEROXIDE 10% GEL 60 GM TUBE TP SCH ×2 (09:00→21:30)
[2023-02-07] MEDS: REMEDY ESSENTIAL ZINC PASTE 113 GM TP SCH ×2 (09:00→21:30)
[2023-02-07] MEDS: BACLOFEN 20 MG TABLET GT SCH ×3 (09:10→21:29)
[2023-02-07] MEDS: PHENOBARBITAL 32.4 MG TABLET GT SCH ×2 (09:10→21:30)
[2023-02-07] MEDS: OMEGA-3 FATTY ACIDS/FISH OIL CAPSULE GT SCH (21:26)
[2023-02-07] MEDS: LATANOPROST OPHT DROP 2.5 ML BOTTLE EACHEYE SCH (21:26)
[2023-02-07] MEDS: NUTRISOURCE FIBER 4 GM PACKET GT SCH (21:29)
[2023-02-08] VITALS (10 sets, daily range): TEMP 97.4–98.3; O2SAT 95–99
[2023-02-08] MEDS: HYDROGEN PEROXIDE 3% 118 ML BOTTLE TP SCH ×3 (00:25→22:30)
[2023-02-08] MEDS: IPRATROPIUM BROMIDE 0.5 MG/2.5 ML NEBU NEB SCH ×4 (01:45→19:15)
[2023-02-08] MEDS: ALBUTEROL SULFATE 2.5 MG/3 ML NEBU NEB SCH ×4 (01:46→19:15)
[2023-02-08] MEDS: DOXYCYCLINE HYCLATE 100 MG TABLET GT SCH (05:16)
[2023-02-08] MEDS: ACIDOPHILUS/BULGARICUS CHEW TAB GT SCH ×3 (05:16→21:35)
[2023-02-08] MEDS: OMEPRAZOLE 20 MG CAPSULE.DR GT SCH (05:16)
[2023-02-08] MEDS: VALPROIC ACID 250 MG/5 ML LIQUID UDC GT SCH ×3 (05:16→21:35)
[2023-02-08] MEDS: BACLOFEN 20 MG TABLET GT SCH ×3 (08:34→21:30)
[2023-02-08] MEDS: PHENOBARBITAL 32.4 MG TABLET GT SCH ×2 (08:34→21:35)
[2023-02-08] MEDS: POLYVINYL ALCOHOL OPHT DROPS 15 ML BOTTLE EACHEYE SCH ×4 (08:34→21:30)
[2023-02-08] MEDS: REMEDY ESSENTIAL ZINC PASTE 113 GM TP SCH ×2 (08:35→21:35)
[2023-02-08] MEDS: BENZOYL PEROXIDE 10% GEL 60 GM TUBE TP SCH ×2 (08:35→21:35)
[2023-02-08] MEDS: LATANOPROST OPHT DROP 2.5 ML BOTTLE EACHEYE SCH (21:30)
[2023-02-08] MEDS: OMEGA-3 FATTY ACIDS/FISH OIL CAPSULE GT SCH (21:30)
[2023-02-08] MEDS: NUTRISOURCE FIBER 4 GM PACKET GT SCH (21:34)
[2023-02-09] VITALS (10 sets, daily range): TEMP 97.2–98; O2SAT 96–99
[2023-02-09] MEDS: IPRATROPIUM BROMIDE 0.5 MG/2.5 ML NEBU NEB SCH ×4 (01:15→19:29)
[2023-02-09] MEDS: ALBUTEROL SULFATE 2.5 MG/3 ML NEBU NEB SCH ×4 (01:15→19:29)
[2023-02-09] MEDS: JEVITY 1.2 1000 ML LIQUID GT PRN (05:00)
[2023-02-09] MEDS: DOXYCYCLINE HYCLATE 100 MG TABLET GT SCH (06:28)
[2023-02-09] MEDS: OMEPRAZOLE 20 MG CAPSULE.DR GT SCH (06:28)
[2023-02-09] MEDS: ACIDOPHILUS/BULGARICUS CHEW TAB GT SCH ×3 (06:28→21:48)
[2023-02-09] MEDS: VALPROIC ACID 250 MG/5 ML LIQUID UDC GT SCH ×3 (06:28→21:56)
[2023-02-09] MEDS: HYDROGEN PEROXIDE 3% 118 ML BOTTLE TP SCH ×2 (07:35→21:22)
[2023-02-09] MEDS: POLYVINYL ALCOHOL OPHT DROPS 15 ML BOTTLE EACHEYE SCH ×4 (09:31→21:47)
[2023-02-09] MEDS: BACLOFEN 20 MG TABLET GT SCH ×3 (09:31→21:00)
[2023-02-09] MEDS: REMEDY ESSENTIAL ZINC PASTE 113 GM TP SCH ×2 (09:32→21:48)
[2023-02-09] MEDS: PHENOBARBITAL 32.4 MG TABLET GT SCH ×2 (09:32→21:56)
[2023-02-09] MEDS: BENZOYL PEROXIDE 10% GEL 60 GM TUBE TP SCH ×2 (09:32→21:48)
[2023-02-09] MEDS: OMEGA-3 FATTY ACIDS/FISH OIL CAPSULE GT SCH (21:47)
[2023-02-09] MEDS: LATANOPROST OPHT DROP 2.5 ML BOTTLE EACHEYE SCH (21:47)
[2023-02-09] MEDS: NUTRISOURCE FIBER 4 GM PACKET GT SCH (21:47)
[2023-02-10] VITALS (9 sets, daily range): TEMP 97.4–97.8; O2SAT 98–99
[2023-02-10] MEDS: IPRATROPIUM BROMIDE 0.5 MG/2.5 ML NEBU NEB SCH ×4 (01:31→19:11)
[2023-02-10] MEDS: ALBUTEROL SULFATE 2.5 MG/3 ML NEBU NEB SCH ×4 (01:31→19:11)
[2023-02-10] MEDS: JEVITY 1.2 1000 ML LIQUID GT PRN (04:27)
[2023-02-10] MEDS: OMEPRAZOLE 20 MG CAPSULE.DR GT SCH (05:17)
[2023-02-10] MEDS: ACIDOPHILUS/BULGARICUS CHEW TAB GT SCH ×3 (05:17→22:23)
[2023-02-10] MEDS: VALPROIC ACID 250 MG/5 ML LIQUID UDC GT SCH ×3 (05:18→22:24)
[2023-02-10] MEDS: DOXYCYCLINE HYCLATE 100 MG TABLET GT SCH (05:21)
[2023-02-10] MEDS: HYDROGEN PEROXIDE 3% 118 ML BOTTLE TP SCH ×2 (08:40→19:12)
[2023-02-10] MEDS: POLYVINYL ALCOHOL OPHT DROPS 15 ML BOTTLE EACHEYE SCH ×4 (09:35→21:00)
[2023-02-10] MEDS: BENZOYL PEROXIDE 10% GEL 60 GM TUBE TP SCH ×2 (09:36→21:00)
[2023-02-10] MEDS: BACLOFEN 20 MG TABLET GT SCH ×3 (09:36→21:00)
[2023-02-10] MEDS: PHENOBARBITAL 32.4 MG TABLET GT SCH ×2 (09:36→21:00)
[2023-02-10] MEDS: REMEDY ESSENTIAL ZINC PASTE 113 GM TP SCH ×2 (09:36→21:00)
[2023-02-10] MEDS: OMEGA-3 FATTY ACIDS/FISH OIL CAPSULE GT SCH (21:00)
[2023-02-10] MEDS: LATANOPROST OPHT DROP 2.5 ML BOTTLE EACHEYE SCH (21:00)
[2023-02-10] MEDS: NUTRISOURCE FIBER 4 GM PACKET GT SCH (21:00)
[2023-02-11] VITALS (9 sets, daily range): TEMP 97.5; O2SAT 98–99
[2023-02-11] MEDS: IPRATROPIUM BROMIDE 0.5 MG/2.5 ML NEBU NEB SCH ×4 (01:17→19:16)
[2023-02-11] MEDS: ALBUTEROL SULFATE 2.5 MG/3 ML NEBU NEB SCH ×4 (01:17→19:16)
[2023-02-11] MEDS: ACIDOPHILUS/BULGARICUS CHEW TAB GT SCH ×3 (05:31→21:37)
[2023-02-11] MEDS: OMEPRAZOLE 20 MG CAPSULE.DR GT SCH (05:31)
[2023-02-11] MEDS: DOXYCYCLINE HYCLATE 100 MG TABLET GT SCH (05:31)
[2023-02-11] MEDS: VALPROIC ACID 250 MG/5 ML LIQUID UDC GT SCH ×3 (05:31→21:37)
[2023-02-11] MEDS: POLYVINYL ALCOHOL OPHT DROPS 15 ML BOTTLE EACHEYE SCH ×4 (08:35→21:37)
[2023-02-11] MEDS: BENZOYL PEROXIDE 10% GEL 60 GM TUBE TP SCH ×2 (08:36→21:37)
[2023-02-11] MEDS: REMEDY ESSENTIAL ZINC PASTE 113 GM TP SCH ×2 (08:36→21:37)
[2023-02-11] MEDS: BACLOFEN 20 MG TABLET GT SCH ×3 (08:38→21:37)
[2023-02-11] MEDS: PHENOBARBITAL 32.4 MG TABLET GT SCH ×2 (08:38→21:37)
[2023-02-11] MEDS: HYDROGEN PEROXIDE 3% 118 ML BOTTLE TP SCH ×2 (09:00→21:00)
[2023-02-11] MEDS: JEVITY 1.2 1000 ML LIQUID GT PRN (19:40)
[2023-02-11] MEDS: LATANOPROST OPHT DROP 2.5 ML BOTTLE EACHEYE SCH (21:37)
[2023-02-11] MEDS: OMEGA-3 FATTY ACIDS/FISH OIL CAPSULE GT SCH (21:37)
[2023-02-11] MEDS: NUTRISOURCE FIBER 4 GM PACKET GT SCH (21:37)
[2023-02-12] VITALS (10 sets, daily range): TEMP 97.6–97.7; O2SAT 98–99
[2023-02-12] MEDS: ALBUTEROL SULFATE 2.5 MG/3 ML NEBU NEB SCH ×4 (01:12→20:21)
[2023-02-12] MEDS: IPRATROPIUM BROMIDE 0.5 MG/2.5 ML NEBU NEB SCH ×4 (01:12→20:20)
[2023-02-12] MEDS: DOXYCYCLINE HYCLATE 100 MG TABLET GT SCH (05:29)
[2023-02-12] MEDS: VALPROIC ACID 250 MG/5 ML LIQUID UDC GT SCH ×3 (05:29→22:00)
[2023-02-12] MEDS: ACIDOPHILUS/BULGARICUS CHEW TAB GT SCH ×3 (05:29→22:00)
[2023-02-12] MEDS: OMEPRAZOLE 20 MG CAPSULE.DR GT SCH (05:29)
[2023-02-12] MEDS: HYDROGEN PEROXIDE 3% 118 ML BOTTLE TP SCH ×2 (08:47→20:22)
[2023-02-12] MEDS: BENZOYL PEROXIDE 10% GEL 60 GM TUBE TP SCH ×2 (08:56→21:00)
[2023-02-12] MEDS: POLYVINYL ALCOHOL OPHT DROPS 15 ML BOTTLE EACHEYE SCH ×4 (08:56→21:59)
[2023-02-12] MEDS: PHENOBARBITAL 32.4 MG TABLET GT SCH ×2 (08:59→21:00)
[2023-02-12] MEDS: BACLOFEN 20 MG TABLET GT SCH ×3 (09:00→22:00)
[2023-02-12] MEDS: REMEDY ESSENTIAL ZINC PASTE 113 GM TP SCH ×2 (09:00→21:00)
[2023-02-12] MEDS: JEVITY 1.2 1000 ML LIQUID GT PRN (17:11)
[2023-02-12] MEDS: NUTRISOURCE FIBER 4 GM PACKET GT SCH (21:00)
[2023-02-12] MEDS: OMEGA-3 FATTY ACIDS/FISH OIL CAPSULE GT SCH (21:59)
[2023-02-12] MEDS: LATANOPROST OPHT DROP 2.5 ML BOTTLE EACHEYE SCH (21:59)
[2023-02-13] VITALS (11 sets, daily range): TEMP 97.3–97.8; O2SAT 97–99
[2023-02-13] MEDS: IPRATROPIUM BROMIDE 0.5 MG/2.5 ML NEBU NEB SCH ×4 (01:20→19:40)
[2023-02-13] MEDS: ALBUTEROL SULFATE 2.5 MG/3 ML NEBU NEB SCH ×4 (01:20→19:40)
[2023-02-13] MEDS: VALPROIC ACID 250 MG/5 ML LIQUID UDC GT SCH ×3 (05:41→21:55)
[2023-02-13] MEDS: DOXYCYCLINE HYCLATE 100 MG TABLET GT SCH (05:41)
[2023-02-13] MEDS: OMEPRAZOLE 20 MG CAPSULE.DR GT SCH (05:41)
[2023-02-13] MEDS: ACIDOPHILUS/BULGARICUS CHEW TAB GT SCH ×3 (05:41→21:55)
[2023-02-13] MEDS: POLYVINYL ALCOHOL OPHT DROPS 15 ML BOTTLE EACHEYE SCH ×4 (08:18→21:55)
[2023-02-13] MEDS: BACLOFEN 20 MG TABLET GT SCH ×3 (08:22→21:55)
[2023-02-13] MEDS: PHENOBARBITAL 32.4 MG TABLET GT SCH ×2 (08:22→21:55)
[2023-02-13] MEDS: BENZOYL PEROXIDE 10% GEL 60 GM TUBE TP SCH ×2 (09:00→21:55)
[2023-02-13] MEDS: REMEDY ESSENTIAL ZINC PASTE 113 GM TP SCH ×2 (09:00→21:55)
[2023-02-13] MEDS: HYDROGEN PEROXIDE 3% 118 ML BOTTLE TP SCH ×2 (09:06→20:34)
[2023-02-13 09:37] LABS: BASOPHILS % (AUTO) 0.5 % (0.0-2.0); EOSINOPHILS # (AUTO) 0.2 K/uL (0.0-0.7); EOSINOPHILS % (AUTO) 4.6 % (0.0-7.0); HEMATOCRIT 38.5 % (36.7-47.1); HEMOGLOBIN 12.9 g/dL (12.5-16.3); LYMPHOCYTES # (AUTO) 1.2 K/uL (0.8-4.8); LYMPHOCYTES % (AUTO) 23.1 % (20.5-51.5); MEAN CORPUSCULAR HGB CONC 33 g/dL (32.5-36.3); MEAN CORPUSCULAR VOLUME 92.9 fL (73.0-96.2); MONOCYTES # (AUTO) 0.8 K/uL (0.1-1.30); MONOCYTES % (AUTO) 14.6 % (0.0-11.0); NEUTROPHILS % (AUTO) 57.2 % (38.5-71.5); PLATELET COUNT (AUTO) 158 K/uL (152-348); RED BLOOD CELL COUNT(AUTO) 4.15 MIL/uL (4.06-5.63); RED CELL DISTRIBUTION WIDTH 15.7 % (12.1-16.2); WHITE BLOOD COUNT (AUTO) 5.2 K/uL (3.6-10.2)
[2023-02-13 09:51] LABS: DIFFERENTIAL COMMENT 1
[2023-02-13 09:53] LABS: ALANINE AMINOTRANSFERASE 22 U/L (16-63); ALBUMIN 3.2 g/dL (3.4-5.0); ALKALINE PHOSPHATASE 135 U/L (50-136); ASPARTATE AMINOTRANSFERASE 19 U/L (15-37); BILIRUBIN,TOTAL 0.4 mg/dL (0.2-1.0); CALCIUM 8.8 mg/dL (8.5-10.1); CARBON DIOXIDE 31 mmol/L (21-32); CHLORIDE 101 mmol/L (98-107); CREATININE 0.3 mg/dL (0.6-1.3); GLUCOSE 116 mg/dL (74-106); POTASSIUM 4.3 mmol/L (3.5-5.1); SODIUM SERUM 137 mmol/L (136-145); TOTAL PROTEIN, SERUM 7.6 g/dL (6.4-8.2); UREA NITROGEN, BLOOD 9 mg/dL (7-18)
[2023-02-13] MEDS: JEVITY 1.2 1000 ML LIQUID GT PRN (13:40)
[2023-02-13] MEDS: OMEGA-3 FATTY ACIDS/FISH OIL CAPSULE GT SCH (21:55)
[2023-02-13] MEDS: LATANOPROST OPHT DROP 2.5 ML BOTTLE EACHEYE SCH (21:55)
[2023-02-13] MEDS: NUTRISOURCE FIBER 4 GM PACKET GT SCH (21:55)
[2023-02-14] VITALS (10 sets, daily range): TEMP 97.3–98.5; O2SAT 97–99
[2023-02-14] MEDS: ALBUTEROL SULFATE 2.5 MG/3 ML NEBU NEB SCH ×4 (01:02→19:56)
[2023-02-14] MEDS: IPRATROPIUM BROMIDE 0.5 MG/2.5 ML NEBU NEB SCH ×4 (01:02→19:56)
[2023-02-14] MEDS: ACIDOPHILUS/BULGARICUS CHEW TAB GT SCH ×3 (05:47→22:17)
[2023-02-14] MEDS: VALPROIC ACID 250 MG/5 ML LIQUID UDC GT SCH ×3 (05:47→22:17)
[2023-02-14] MEDS: DOXYCYCLINE HYCLATE 100 MG TABLET GT SCH (05:47)
[2023-02-14] MEDS: OMEPRAZOLE 20 MG CAPSULE.DR GT SCH (05:47)
[2023-02-14] MEDS: HYDROGEN PEROXIDE 3% 118 ML BOTTLE TP SCH ×2 (07:25→19:56)
[2023-02-14] MEDS: POLYVINYL ALCOHOL OPHT DROPS 15 ML BOTTLE EACHEYE SCH ×4 (08:53→21:00)
[2023-02-14] MEDS: PHENOBARBITAL 32.4 MG TABLET GT SCH ×2 (08:55→21:00)
[2023-02-14] MEDS: BENZOYL PEROXIDE 10% GEL 60 GM TUBE TP SCH ×2 (08:55→21:00)
[2023-02-14] MEDS: BACLOFEN 20 MG TABLET GT SCH ×3 (08:55→21:00)
[2023-02-14] MEDS: REMEDY ESSENTIAL ZINC PASTE 113 GM TP SCH ×2 (08:55→21:00)
[2023-02-14] MEDS: JEVITY 1.2 1000 ML LIQUID GT PRN (10:25)
[2023-02-14] MEDS: OMEGA-3 FATTY ACIDS/FISH OIL CAPSULE GT SCH (21:00)
[2023-02-14] MEDS: LATANOPROST OPHT DROP 2.5 ML BOTTLE EACHEYE SCH (21:00)
[2023-02-14] MEDS: NUTRISOURCE FIBER 4 GM PACKET GT SCH (21:00)
[2023-02-15] VITALS (10 sets, daily range): TEMP 97.8–98.5; O2SAT 97–99
[2023-02-15] MEDS: ALBUTEROL SULFATE 2.5 MG/3 ML NEBU NEB SCH ×4 (01:24→19:38)
[2023-02-15] MEDS: IPRATROPIUM BROMIDE 0.5 MG/2.5 ML NEBU NEB SCH ×4 (01:24→19:37)
[2023-02-15] MEDS: JEVITY 1.2 1000 ML LIQUID GT PRN (04:30)
[2023-02-15] MEDS: DOXYCYCLINE HYCLATE 100 MG TABLET GT SCH (05:36)
[2023-02-15] MEDS: ACIDOPHILUS/BULGARICUS CHEW TAB GT SCH ×3 (05:36→22:22)
[2023-02-15] MEDS: OMEPRAZOLE 20 MG CAPSULE.DR GT SCH (05:36)
[2023-02-15] MEDS: VALPROIC ACID 250 MG/5 ML LIQUID UDC GT SCH ×3 (05:36→22:22)
[2023-02-15] MEDS: BENZOYL PEROXIDE 10% GEL 60 GM TUBE TP SCH ×2 (08:14→21:00)
[2023-02-15] MEDS: POLYVINYL ALCOHOL OPHT DROPS 15 ML BOTTLE EACHEYE SCH ×4 (08:14→21:00)
[2023-02-15] MEDS: REMEDY ESSENTIAL ZINC PASTE 113 GM TP SCH ×2 (08:14→21:00)
[2023-02-15] MEDS: BACLOFEN 20 MG TABLET GT SCH ×3 (08:18→21:00)
[2023-02-15] MEDS: PHENOBARBITAL 32.4 MG TABLET GT SCH ×2 (08:18→21:00)
[2023-02-15] MEDS: HYDROGEN PEROXIDE 3% 118 ML BOTTLE TP SCH ×2 (09:00→21:11)
[2023-02-15] MEDS: NUTRISOURCE FIBER 4 GM PACKET GT SCH (21:00)
[2023-02-15] MEDS: OMEGA-3 FATTY ACIDS/FISH OIL CAPSULE GT SCH (21:00)
[2023-02-15] MEDS: LATANOPROST OPHT DROP 2.5 ML BOTTLE EACHEYE SCH (21:00)
[2023-02-16] VITALS (12 sets, daily range): TEMP 97.4–97.8; O2SAT 98–99
[2023-02-16] MEDS: ALBUTEROL SULFATE 2.5 MG/3 ML NEBU NEB SCH ×4 (01:31→20:00)
[2023-02-16] MEDS: IPRATROPIUM BROMIDE 0.5 MG/2.5 ML NEBU NEB SCH ×4 (01:31→20:00)
[2023-02-16] MEDS: JEVITY 1.2 1000 ML LIQUID GT PRN (03:25)
[2023-02-16] MEDS: OMEPRAZOLE 20 MG CAPSULE.DR GT SCH (05:48)
[2023-02-16] MEDS: VALPROIC ACID 250 MG/5 ML LIQUID UDC GT SCH ×3 (05:48→22:00)
[2023-02-16] MEDS: ACIDOPHILUS/BULGARICUS CHEW TAB GT SCH ×3 (05:48→22:00)
[2023-02-16] MEDS: DOXYCYCLINE HYCLATE 100 MG TABLET GT SCH (05:49)
[2023-02-16] MEDS: HYDROGEN PEROXIDE 3% 118 ML BOTTLE TP SCH ×2 (07:35→20:32)
[2023-02-16] MEDS: REMEDY ESSENTIAL ZINC PASTE 113 GM TP SCH ×2 (09:03→21:00)
[2023-02-16] MEDS: PHENOBARBITAL 32.4 MG TABLET GT SCH ×2 (09:03→21:00)
[2023-02-16] MEDS: BENZOYL PEROXIDE 10% GEL 60 GM TUBE TP SCH ×2 (09:03→21:00)
[2023-02-16] MEDS: POLYVINYL ALCOHOL OPHT DROPS 15 ML BOTTLE EACHEYE SCH ×4 (09:03→21:00)
[2023-02-16] MEDS: BACLOFEN 20 MG TABLET GT SCH ×3 (09:03→21:00)
[2023-02-16] MEDS: OMEGA-3 FATTY ACIDS/FISH OIL CAPSULE GT SCH (21:00)
[2023-02-16] MEDS: LATANOPROST OPHT DROP 2.5 ML BOTTLE EACHEYE SCH (21:00)
[2023-02-16] MEDS: NUTRISOURCE FIBER 4 GM PACKET GT SCH (21:00)
[2023-02-17] VITALS (10 sets, daily range): TEMP 97.4–97.8; O2SAT 98–99
[2023-02-17] MEDS: IPRATROPIUM BROMIDE 0.5 MG/2.5 ML NEBU NEB SCH ×4 (00:33→19:20)
[2023-02-17] MEDS: ALBUTEROL SULFATE 2.5 MG/3 ML NEBU NEB SCH ×4 (00:33→19:20)
[2023-02-17] MEDS: VALPROIC ACID 250 MG/5 ML LIQUID UDC GT SCH ×3 (05:55→22:27)
[2023-02-17] MEDS: ACIDOPHILUS/BULGARICUS CHEW TAB GT SCH ×3 (05:55→22:27)
[2023-02-17] MEDS: OMEPRAZOLE 20 MG CAPSULE.DR GT SCH (05:55)
[2023-02-17] MEDS: DOXYCYCLINE HYCLATE 100 MG TABLET GT SCH (05:55)
[2023-02-17] MEDS: HYDROGEN PEROXIDE 3% 118 ML BOTTLE TP SCH ×2 (09:09→20:38)
[2023-02-17] MEDS: POLYVINYL ALCOHOL OPHT DROPS 15 ML BOTTLE EACHEYE SCH ×4 (09:43→20:33)
[2023-02-17] MEDS: BENZOYL PEROXIDE 10% GEL 60 GM TUBE TP SCH ×2 (09:44→20:38)
[2023-02-17] MEDS: BACLOFEN 20 MG TABLET GT SCH ×3 (09:48→21:00)
[2023-02-17] MEDS: REMEDY ESSENTIAL ZINC PASTE 113 GM TP SCH ×2 (09:49→20:38)
[2023-02-17] MEDS: PHENOBARBITAL 32.4 MG TABLET GT SCH ×2 (09:50→20:37)
[2023-02-17] MEDS: OMEGA-3 FATTY ACIDS/FISH OIL CAPSULE GT SCH (20:36)
[2023-02-17] MEDS: LATANOPROST OPHT DROP 2.5 ML BOTTLE EACHEYE SCH (20:36)
[2023-02-17] MEDS: NUTRISOURCE FIBER 4 GM PACKET GT SCH (20:37)
[2023-02-18] VITALS (12 sets, daily range): BP systolic 98–103; BP diastolic 53–58; TEMP 98.1–101.1; O2SAT 97–99
[2023-02-18] MEDS: ALBUTEROL SULFATE 2.5 MG/3 ML NEBU NEB SCH ×4 (00:50→19:13)
[2023-02-18] MEDS: IPRATROPIUM BROMIDE 0.5 MG/2.5 ML NEBU NEB SCH ×4 (00:50→19:13)
[2023-02-18] MEDS: VALPROIC ACID 250 MG/5 ML LIQUID UDC GT SCH ×3 (06:21→22:32)
[2023-02-18] MEDS: ACIDOPHILUS/BULGARICUS CHEW TAB GT SCH ×3 (06:21→22:32)
[2023-02-18] MEDS: OMEPRAZOLE 20 MG CAPSULE.DR GT SCH (06:21)
[2023-02-18] MEDS: DOXYCYCLINE HYCLATE 100 MG TABLET GT SCH (06:22)
[2023-02-18] MEDS: JEVITY 1.2 1000 ML LIQUID GT PRN ×2 (06:22→17:30)
[2023-02-18] MEDS: HYDROGEN PEROXIDE 3% 118 ML BOTTLE TP SCH ×2 (07:17→21:01)
[2023-02-18] MEDS: REMEDY ESSENTIAL ZINC PASTE 113 GM TP SCH ×2 (08:33→20:13)
[2023-02-18] MEDS: PHENOBARBITAL 32.4 MG TABLET GT SCH ×2 (08:33→20:12)
[2023-02-18] MEDS: BACLOFEN 20 MG TABLET GT SCH ×3 (08:33→20:12)
[2023-02-18] MEDS: BENZOYL PEROXIDE 10% GEL 60 GM TUBE TP SCH ×2 (08:33→20:13)
[2023-02-18] MEDS: POLYVINYL ALCOHOL OPHT DROPS 15 ML BOTTLE EACHEYE SCH ×4 (08:33→20:12)
[2023-02-18] MEDS: NUTRISOURCE FIBER 4 GM PACKET GT SCH (20:12)
[2023-02-18] MEDS: LATANOPROST OPHT DROP 2.5 ML BOTTLE EACHEYE SCH (20:12)
[2023-02-18] MEDS: OMEGA-3 FATTY ACIDS/FISH OIL CAPSULE GT SCH (20:12)
[2023-02-19] VITALS (11 sets, daily range): BP systolic 101; BP diastolic 58; TEMP 98–99.2; O2SAT 96–99
[2023-02-19] MEDS: ALBUTEROL SULFATE 2.5 MG/3 ML NEBU NEB SCH ×4 (00:45→19:11)
[2023-02-19] MEDS: IPRATROPIUM BROMIDE 0.5 MG/2.5 ML NEBU NEB SCH ×4 (00:45→19:11)
[2023-02-19] MEDS: OMEPRAZOLE 20 MG CAPSULE.DR GT SCH (05:40)
[2023-02-19] MEDS: DOXYCYCLINE HYCLATE 100 MG TABLET GT SCH (05:40)
[2023-02-19] MEDS: ACIDOPHILUS/BULGARICUS CHEW TAB GT SCH ×3 (05:40→22:03)
[2023-02-19] MEDS: VALPROIC ACID 250 MG/5 ML LIQUID UDC GT SCH ×3 (05:40→22:03)
[2023-02-19] MEDS: HYDROGEN PEROXIDE 3% 118 ML BOTTLE TP SCH ×2 (07:07→09:09)
[2023-02-19 08:01] LABS: *BLOOD, URINE 3+ (NEGATIVE); *CLARITY,URINE CLOUDY (CLEAR); *COLOR,URINE DARK YELLOW (YELLOW); *KETONES,URINE 1+ (NEGATIVE); *PROTEIN,URINE 2+ (NEGATIVE); LEUKOCYTE ESTERASE ,URINE 1+ (NEGATIVE); NITRITE, URINE POSITIVE (NEGATIVE); UGLUCOSE NEGATIVE (NEGATIVE)
[2023-02-19 08:26] LABS: *BILIRUBIN,URIN 1+ (NEGATIVE)
[2023-02-19 08:30] LABS: BASOPHILS % (AUTO) 0.5 % (0.0-2.0); EOSINOPHILS % (AUTO) 0.1 % (0.0-7.0); HEMOGLOBIN 13.1 g/dL (12.5-16.3); LYMPHOCYTES # (AUTO) 0.8 K/uL (0.8-4.8); LYMPHOCYTES % (AUTO) 9.3 % (20.5-51.5); MEAN CORPUSCULAR HGB CONC 34 g/dL (32.5-36.3); MEAN CORPUSCULAR VOLUME 92.3 fL (73.0-96.2); MONOCYTES # (AUTO) 1.5 K/uL (0.1-1.30); MONOCYTES % (AUTO) 17.3 % (0.0-11.0); NEUTROPHILS # (AUTO) 6.3 K/uL (1.8-8.9); NEUTROPHILS % (AUTO) 72.8 % (38.5-71.5); PLATELET COUNT (AUTO) 164 K/uL (152-348); RED BLOOD CELL COUNT(AUTO) 4.22 MIL/uL (4.06-5.63); RED CELL DISTRIBUTION WIDTH 15.5 % (12.1-16.2); WHITE BLOOD COUNT (AUTO) 8.6 K/uL (3.6-10.2)
[2023-02-19 08:35] LABS: DIFFERENTIAL COMMENT 1
[2023-02-19 08:36] LABS: CALCIUM 9.5 mg/dL (8.5-10.1); CARBON DIOXIDE 29 mmol/L (21-32); CHLORIDE 101 mmol/L (98-107); CREATININE 0.4 mg/dL (0.6-1.3); GLUCOSE 126 mg/dL (74-106); POTASSIUM 4.6 mmol/L (3.5-5.1); SODIUM SERUM 138 mmol/L (136-145); UREA NITROGEN, BLOOD 12 mg/dL (7-18)
[2023-02-19] MEDS: POLYVINYL ALCOHOL OPHT DROPS 15 ML BOTTLE EACHEYE SCH ×4 (08:36→20:41)
[2023-02-19] MEDS: PHENOBARBITAL 32.4 MG TABLET GT SCH ×2 (08:36→20:42)
[2023-02-19] MEDS: BACLOFEN 20 MG TABLET GT SCH ×3 (08:36→20:41)
[2023-02-19 08:51] LABS: BACTERIA,URINE MODERATE /HPF (NONE SEEN); RBC,URINE TNTC /HPF (0-3); SQUAMOUS EPITHELIAL CELL,UR FEW /HPF (NONE SEEN)
[2023-02-19] MEDS: BENZOYL PEROXIDE 10% GEL 60 GM TUBE TP SCH ×2 (09:00→20:47)
[2023-02-19] MEDS: REMEDY ESSENTIAL ZINC PASTE 113 GM TP SCH ×2 (09:00→20:47)
[2023-02-19 16:29] LABS: LYMPHOCYTES % (MANUAL) 68 % (20-40); MONOCYTES % (MANUAL) 22 % (2-10); NEUTROPHILS % (MANUAL) 68 % (42-75)
[2023-02-19 16:30] LABS: PLATELET ESTIMATE DECREASED
[2023-02-19] MEDS: JEVITY 1.2 1000 ML LIQUID GT PRN (17:28)
[2023-02-19] MEDS: LATANOPROST OPHT DROP 2.5 ML BOTTLE EACHEYE SCH (20:41)
[2023-02-19] MEDS: NUTRISOURCE FIBER 4 GM PACKET GT SCH (20:41)
[2023-02-19] MEDS: OMEGA-3 FATTY ACIDS/FISH OIL CAPSULE GT SCH (20:41)
[2023-02-19] MEDS: CIPROFLOXACIN HCL 250 MG TABLET PO SCH (21:50)
[2023-02-20] VITALS (10 sets, daily range): TEMP 98.5–99; O2SAT 95–99
[2023-02-20] MEDS: IPRATROPIUM BROMIDE 0.5 MG/2.5 ML NEBU NEB SCH ×4 (00:53→19:50)
[2023-02-20] MEDS: ALBUTEROL SULFATE 2.5 MG/3 ML NEBU NEB SCH ×4 (00:53→19:50)
[2023-02-20] MEDS: DOXYCYCLINE HYCLATE 100 MG TABLET GT SCH (05:04)
[2023-02-20] MEDS: OMEPRAZOLE 20 MG CAPSULE.DR GT SCH (05:04)
[2023-02-20] MEDS: ACIDOPHILUS/BULGARICUS CHEW TAB GT SCH ×3 (05:04→21:34)
[2023-02-20] MEDS: VALPROIC ACID 250 MG/5 ML LIQUID UDC GT SCH ×3 (05:04→21:34)
[2023-02-20] MEDS: POLYVINYL ALCOHOL OPHT DROPS 15 ML BOTTLE EACHEYE SCH ×4 (08:19→21:30)
[2023-02-20] MEDS: BACLOFEN 20 MG TABLET GT SCH ×3 (08:19→21:31)
[2023-02-20] MEDS: REMEDY ESSENTIAL ZINC PASTE 113 GM TP SCH ×2 (08:27→21:32)
[2023-02-20] MEDS: PHENOBARBITAL 32.4 MG TABLET GT SCH ×2 (08:27→21:31)
[2023-02-20] MEDS: BENZOYL PEROXIDE 10% GEL 60 GM TUBE TP SCH ×2 (08:27→21:32)
[2023-02-20] MEDS: CIPROFLOXACIN HCL 250 MG TABLET PO SCH ×2 (08:37→21:32)
[2023-02-20] MEDS: HYDROGEN PEROXIDE 3% 118 ML BOTTLE TP SCH ×2 (09:50→20:37)
[2023-02-20] MEDS: NUTRISOURCE FIBER 4 GM PACKET GT SCH (21:31)
[2023-02-20] MEDS: LATANOPROST OPHT DROP 2.5 ML BOTTLE EACHEYE SCH (21:31)
[2023-02-20] MEDS: OMEGA-3 FATTY ACIDS/FISH OIL CAPSULE GT SCH (21:31)
[2023-02-21] VITALS (10 sets, daily range): TEMP 97.6–98.1; O2SAT 96–99
[2023-02-21] MEDS: IPRATROPIUM BROMIDE 0.5 MG/2.5 ML NEBU NEB SCH ×4 (01:06→19:40)
[2023-02-21] MEDS: ALBUTEROL SULFATE 2.5 MG/3 ML NEBU NEB SCH ×4 (01:07→19:40)
[2023-02-21] MEDS: OMEPRAZOLE 20 MG CAPSULE.DR GT SCH (05:21)
[2023-02-21] MEDS: ACIDOPHILUS/BULGARICUS CHEW TAB GT SCH ×3 (05:21→22:02)
[2023-02-21] MEDS: DOXYCYCLINE HYCLATE 100 MG TABLET GT SCH (05:21)
[2023-02-21] MEDS: VALPROIC ACID 250 MG/5 ML LIQUID UDC GT SCH ×3 (05:21→22:34)
[2023-02-21] MEDS: HYDROGEN PEROXIDE 3% 118 ML BOTTLE TP SCH ×2 (07:10→20:53)
[2023-02-21] MEDS: POLYVINYL ALCOHOL OPHT DROPS 15 ML BOTTLE EACHEYE SCH ×4 (09:44→21:00)
[2023-02-21] MEDS: PHENOBARBITAL 32.4 MG TABLET GT SCH ×2 (09:45→21:00)
[2023-02-21] MEDS: BACLOFEN 20 MG TABLET GT SCH ×3 (09:45→21:00)
[2023-02-21] MEDS: CIPROFLOXACIN HCL 250 MG TABLET PO SCH ×2 (09:48→21:00)
[2023-02-21] MEDS: REMEDY ESSENTIAL ZINC PASTE 113 GM TP SCH ×2 (09:49→21:00)
[2023-02-21] MEDS: BENZOYL PEROXIDE 10% GEL 60 GM TUBE TP SCH ×2 (09:49→21:00)
[2023-02-21] MEDS: LATANOPROST OPHT DROP 2.5 ML BOTTLE EACHEYE SCH (21:00)
[2023-02-21] MEDS: NUTRISOURCE FIBER 4 GM PACKET GT SCH (21:00)
[2023-02-21] MEDS: OMEGA-3 FATTY ACIDS/FISH OIL CAPSULE GT SCH (21:00)
[2023-02-22] VITALS (10 sets, daily range): TEMP 97–97.7; O2SAT 97–99
[2023-02-22] MEDS: JEVITY 1.2 1000 ML LIQUID GT PRN ×2 (00:23→17:19)
[2023-02-22] MEDS: ALBUTEROL SULFATE 2.5 MG/3 ML NEBU NEB SCH ×4 (00:51→19:39)
[2023-02-22] MEDS: IPRATROPIUM BROMIDE 0.5 MG/2.5 ML NEBU NEB SCH ×4 (00:51→19:39)
[2023-02-22] MEDS: ACIDOPHILUS/BULGARICUS CHEW TAB GT SCH ×3 (05:25→21:57)
[2023-02-22] MEDS: OMEPRAZOLE 20 MG CAPSULE.DR GT SCH (05:25)
[2023-02-22] MEDS: VALPROIC ACID 250 MG/5 ML LIQUID UDC GT SCH ×3 (06:14→21:57)
[2023-02-22] MEDS: DOXYCYCLINE HYCLATE 100 MG TABLET GT SCH (06:14)
[2023-02-22] MEDS: HYDROGEN PEROXIDE 3% 118 ML BOTTLE TP SCH ×2 (07:31→21:29)
[2023-02-22] MEDS: CIPROFLOXACIN HCL 250 MG TABLET PO SCH ×2 (09:50→21:57)
[2023-02-22] MEDS: POLYVINYL ALCOHOL OPHT DROPS 15 ML BOTTLE EACHEYE SCH ×4 (09:50→21:57)
[2023-02-22] MEDS: PHENOBARBITAL 32.4 MG TABLET GT SCH ×2 (09:50→21:57)
[2023-02-22] MEDS: BACLOFEN 20 MG TABLET GT SCH ×3 (09:50→21:57)
[2023-02-22] MEDS: REMEDY ESSENTIAL ZINC PASTE 113 GM TP SCH ×2 (09:51→21:57)
[2023-02-22] MEDS: BENZOYL PEROXIDE 10% GEL 60 GM TUBE TP SCH ×2 (09:51→21:57)
[2023-02-22] MEDS: LATANOPROST OPHT DROP 2.5 ML BOTTLE EACHEYE SCH (21:57)
[2023-02-22] MEDS: OMEGA-3 FATTY ACIDS/FISH OIL CAPSULE GT SCH (21:57)
[2023-02-22] MEDS: NUTRISOURCE FIBER 4 GM PACKET GT SCH (21:57)
[2023-02-23] VITALS (10 sets, daily range): TEMP 97–98; O2SAT 97–99
[2023-02-23] MEDS: IPRATROPIUM BROMIDE 0.5 MG/2.5 ML NEBU NEB SCH ×4 (01:25→20:13)
[2023-02-23] MEDS: ALBUTEROL SULFATE 2.5 MG/3 ML NEBU NEB SCH ×4 (01:25→20:13)
[2023-02-23] MEDS: VALPROIC ACID 250 MG/5 ML LIQUID UDC GT SCH ×3 (05:34→21:57)
[2023-02-23] MEDS: DOXYCYCLINE HYCLATE 100 MG TABLET GT SCH (05:34)
[2023-02-23] MEDS: ACIDOPHILUS/BULGARICUS CHEW TAB GT SCH ×3 (05:34→21:57)
[2023-02-23] MEDS: OMEPRAZOLE 20 MG CAPSULE.DR GT SCH (05:34)
[2023-02-23] MEDS: BENZOYL PEROXIDE 10% GEL 60 GM TUBE TP SCH ×2 (08:16→21:57)
[2023-02-23] MEDS: PHENOBARBITAL 32.4 MG TABLET GT SCH ×2 (08:16→21:57)
[2023-02-23] MEDS: REMEDY ESSENTIAL ZINC PASTE 113 GM TP SCH ×2 (08:16→21:57)
[2023-02-23] MEDS: BACLOFEN 20 MG TABLET GT SCH ×3 (08:16→21:57)
[2023-02-23] MEDS: CIPROFLOXACIN HCL 250 MG TABLET PO SCH (08:17)
[2023-02-23] MEDS: POLYVINYL ALCOHOL OPHT DROPS 15 ML BOTTLE EACHEYE SCH ×4 (09:00→21:46)
[2023-02-23] MEDS: HYDROGEN PEROXIDE 3% 118 ML BOTTLE TP SCH ×2 (09:01→21:00)
[2023-02-23] MEDS: JEVITY 1.2 1000 ML LIQUID GT PRN (15:30)
[2023-02-23] MEDS: CEphaleXIN 500 MG CAPSULE GT SCH ×2 (15:45→23:00)
[2023-02-23] MEDS: LATANOPROST OPHT DROP 2.5 ML BOTTLE EACHEYE SCH (21:47)
[2023-02-23] MEDS: NUTRISOURCE FIBER 4 GM PACKET GT SCH (21:57)
[2023-02-23] MEDS: OMEGA-3 FATTY ACIDS/FISH OIL CAPSULE GT SCH (21:57)
[2023-02-24] VITALS (10 sets, daily range): TEMP 97.1–97.4; O2SAT 98–99
[2023-02-24] MEDS: ALBUTEROL SULFATE 2.5 MG/3 ML NEBU NEB SCH ×4 (01:31→19:17)
[2023-02-24] MEDS: IPRATROPIUM BROMIDE 0.5 MG/2.5 ML NEBU NEB SCH ×4 (01:31→19:17)
[2023-02-24] MEDS: OMEPRAZOLE 20 MG CAPSULE.DR GT SCH (05:18)
[2023-02-24] MEDS: ACIDOPHILUS/BULGARICUS CHEW TAB GT SCH ×3 (05:18→21:56)
[2023-02-24] MEDS: VALPROIC ACID 250 MG/5 ML LIQUID UDC GT SCH ×3 (05:18→21:56)
[2023-02-24] MEDS: DOXYCYCLINE HYCLATE 100 MG TABLET GT SCH (05:18)
[2023-02-24] MEDS: HYDROGEN PEROXIDE 3% 118 ML BOTTLE TP SCH ×2 (09:03→21:28)
[2023-02-24] MEDS: POLYVINYL ALCOHOL OPHT DROPS 15 ML BOTTLE EACHEYE SCH ×4 (09:27→21:56)
[2023-02-24] MEDS: PHENOBARBITAL 32.4 MG TABLET GT SCH ×2 (09:28→21:56)
[2023-02-24] MEDS: BENZOYL PEROXIDE 10% GEL 60 GM TUBE TP SCH ×2 (09:28→21:56)
[2023-02-24] MEDS: REMEDY ESSENTIAL ZINC PASTE 113 GM TP SCH ×2 (09:28→21:56)
[2023-02-24] MEDS: CEphaleXIN 500 MG CAPSULE GT SCH ×2 (09:28→21:56)
[2023-02-24] MEDS: BACLOFEN 20 MG TABLET GT SCH ×3 (09:28→21:56)
[2023-02-24] MEDS: LATANOPROST OPHT DROP 2.5 ML BOTTLE EACHEYE SCH (21:56)
[2023-02-24] MEDS: NUTRISOURCE FIBER 4 GM PACKET GT SCH (21:56)
[2023-02-24] MEDS: OMEGA-3 FATTY ACIDS/FISH OIL CAPSULE GT SCH (21:56)
[2023-02-25] VITALS (9 sets, daily range): TEMP 97.9; O2SAT 98–99
[2023-02-25] MEDS: ALBUTEROL SULFATE 2.5 MG/3 ML NEBU NEB SCH ×4 (01:24→19:43)
[2023-02-25] MEDS: IPRATROPIUM BROMIDE 0.5 MG/2.5 ML NEBU NEB SCH ×4 (01:24→19:43)
[2023-02-25] MEDS: JEVITY 1.2 1000 ML LIQUID GT PRN ×2 (02:38→21:51)
[2023-02-25] MEDS: ACIDOPHILUS/BULGARICUS CHEW TAB GT SCH ×3 (05:38→21:51)
[2023-02-25] MEDS: VALPROIC ACID 250 MG/5 ML LIQUID UDC GT SCH ×3 (05:38→21:51)
[2023-02-25] MEDS: OMEPRAZOLE 20 MG CAPSULE.DR GT SCH (05:38)
[2023-02-25] MEDS: DOXYCYCLINE HYCLATE 100 MG TABLET GT SCH (05:38)
[2023-02-25] MEDS: CEphaleXIN 500 MG CAPSULE GT SCH ×2 (08:20→21:51)
[2023-02-25] MEDS: POLYVINYL ALCOHOL OPHT DROPS 15 ML BOTTLE EACHEYE SCH ×4 (08:20→21:51)
[2023-02-25] MEDS: BENZOYL PEROXIDE 10% GEL 60 GM TUBE TP SCH ×2 (08:21→21:51)
[2023-02-25] MEDS: PHENOBARBITAL 32.4 MG TABLET GT SCH ×2 (08:21→21:51)
[2023-02-25] MEDS: REMEDY ESSENTIAL ZINC PASTE 113 GM TP SCH ×2 (08:21→21:51)
[2023-02-25] MEDS: BACLOFEN 20 MG TABLET GT SCH ×3 (08:21→21:51)
[2023-02-25] MEDS: HYDROGEN PEROXIDE 3% 118 ML BOTTLE TP SCH ×2 (09:50→21:00)
[2023-02-25] MEDS: LATANOPROST OPHT DROP 2.5 ML BOTTLE EACHEYE SCH (21:51)
[2023-02-25] MEDS: OMEGA-3 FATTY ACIDS/FISH OIL CAPSULE GT SCH (21:51)
[2023-02-25] MEDS: NUTRISOURCE FIBER 4 GM PACKET GT SCH (21:51)
[2023-02-26] VITALS (10 sets, daily range): TEMP 97.3–97.8; O2SAT 98–99
[2023-02-26] MEDS: IPRATROPIUM BROMIDE 0.5 MG/2.5 ML NEBU NEB SCH ×4 (01:35→19:17)
[2023-02-26] MEDS: ALBUTEROL SULFATE 2.5 MG/3 ML NEBU NEB SCH ×4 (01:35→19:17)
[2023-02-26] MEDS: ACIDOPHILUS/BULGARICUS CHEW TAB GT SCH ×3 (05:10→21:16)
[2023-02-26] MEDS: DOXYCYCLINE HYCLATE 100 MG TABLET GT SCH (05:10)
[2023-02-26] MEDS: VALPROIC ACID 250 MG/5 ML LIQUID UDC GT SCH ×3 (05:10→21:16)
[2023-02-26] MEDS: OMEPRAZOLE 20 MG CAPSULE.DR GT SCH (05:10)
[2023-02-26] MEDS: HYDROGEN PEROXIDE 3% 118 ML BOTTLE TP SCH ×2 (07:16→19:17)
[2023-02-26] MEDS: CEphaleXIN 500 MG CAPSULE GT SCH ×2 (08:47→21:16)
[2023-02-26] MEDS: BACLOFEN 20 MG TABLET GT SCH ×3 (08:47→21:16)
[2023-02-26] MEDS: POLYVINYL ALCOHOL OPHT DROPS 15 ML BOTTLE EACHEYE SCH ×4 (08:47→21:15)
[2023-02-26] MEDS: REMEDY ESSENTIAL ZINC PASTE 113 GM TP SCH ×2 (08:48→21:16)
[2023-02-26] MEDS: BENZOYL PEROXIDE 10% GEL 60 GM TUBE TP SCH ×2 (08:48→21:16)
[2023-02-26] MEDS: PHENOBARBITAL 32.4 MG TABLET GT SCH ×2 (08:48→21:16)
[2023-02-26] MEDS: LATANOPROST OPHT DROP 2.5 ML BOTTLE EACHEYE SCH (21:16)
[2023-02-26] MEDS: OMEGA-3 FATTY ACIDS/FISH OIL CAPSULE GT SCH (21:16)
[2023-02-26] MEDS: NUTRISOURCE FIBER 4 GM PACKET GT SCH (21:16)
[2023-02-27] VITALS (10 sets, daily range): TEMP 97.3–98.6; O2SAT 98–99
[2023-02-27] MEDS: IPRATROPIUM BROMIDE 0.5 MG/2.5 ML NEBU NEB SCH ×4 (01:14→19:17)
[2023-02-27] MEDS: ALBUTEROL SULFATE 2.5 MG/3 ML NEBU NEB SCH ×4 (01:14→19:17)
[2023-02-27] MEDS: ACIDOPHILUS/BULGARICUS CHEW TAB GT SCH ×3 (06:26→21:02)
[2023-02-27] MEDS: VALPROIC ACID 250 MG/5 ML LIQUID UDC GT SCH ×3 (06:26→21:02)
[2023-02-27] MEDS: OMEPRAZOLE 20 MG CAPSULE.DR GT SCH (06:26)
[2023-02-27] MEDS: DOXYCYCLINE HYCLATE 100 MG TABLET GT SCH (06:26)
[2023-02-27] MEDS: HYDROGEN PEROXIDE 3% 118 ML BOTTLE TP SCH ×2 (08:22→20:53)
[2023-02-27] MEDS: POLYVINYL ALCOHOL OPHT DROPS 15 ML BOTTLE EACHEYE SCH ×4 (08:33→20:57)
[2023-02-27] MEDS: REMEDY ESSENTIAL ZINC PASTE 113 GM TP SCH ×2 (08:34→20:57)
[2023-02-27] MEDS: BACLOFEN 20 MG TABLET GT SCH ×3 (08:34→20:57)
[2023-02-27] MEDS: PHENOBARBITAL 32.4 MG TABLET GT SCH ×2 (08:34→20:57)
[2023-02-27] MEDS: CEphaleXIN 500 MG CAPSULE GT SCH ×2 (08:34→20:57)
[2023-02-27] MEDS: BENZOYL PEROXIDE 10% GEL 60 GM TUBE TP SCH ×2 (09:00→20:57)
[2023-02-27] MEDS: JEVITY 1.2 1000 ML LIQUID GT PRN (13:49)
[2023-02-27] MEDS: LATANOPROST OPHT DROP 2.5 ML BOTTLE EACHEYE SCH (20:57)
[2023-02-27] MEDS: NUTRISOURCE FIBER 4 GM PACKET GT SCH (20:57)
[2023-02-27] MEDS: OMEGA-3 FATTY ACIDS/FISH OIL CAPSULE GT SCH (20:57)
[2023-02-28] VITALS (9 sets, daily range): TEMP 97.5–97.8; O2SAT 98–99
[2023-02-28] MEDS: IPRATROPIUM BROMIDE 0.5 MG/2.5 ML NEBU NEB SCH ×4 (00:56→19:31)
[2023-02-28] MEDS: ALBUTEROL SULFATE 2.5 MG/3 ML NEBU NEB SCH ×4 (00:56→19:31)
[2023-02-28] MEDS: VALPROIC ACID 250 MG/5 ML LIQUID UDC GT SCH ×3 (05:43→21:07)
[2023-02-28] MEDS: DOXYCYCLINE HYCLATE 100 MG TABLET GT SCH (05:43)
[2023-02-28] MEDS: ACIDOPHILUS/BULGARICUS CHEW TAB GT SCH ×3 (05:43→21:07)
[2023-02-28] MEDS: OMEPRAZOLE 20 MG CAPSULE.DR GT SCH (05:43)
[2023-02-28] MEDS: POLYVINYL ALCOHOL OPHT DROPS 15 ML BOTTLE EACHEYE SCH ×4 (08:13→21:06)
[2023-02-28] MEDS: REMEDY ESSENTIAL ZINC PASTE 113 GM TP SCH ×2 (08:13→21:07)
[2023-02-28] MEDS: PHENOBARBITAL 32.4 MG TABLET GT SCH ×2 (08:13→21:07)
[2023-02-28] MEDS: BACLOFEN 20 MG TABLET GT SCH ×3 (08:13→21:06)
[2023-02-28] MEDS: BENZOYL PEROXIDE 10% GEL 60 GM TUBE TP SCH ×2 (08:13→21:07)
[2023-02-28] MEDS: HYDROGEN PEROXIDE 3% 118 ML BOTTLE TP SCH ×2 (09:00→21:03)
[2023-02-28] MEDS: JEVITY 1.2 1000 ML LIQUID GT PRN (12:45)
[2023-02-28] MEDS: NUTRISOURCE FIBER 4 GM PACKET GT SCH (21:06)
[2023-02-28] MEDS: LATANOPROST OPHT DROP 2.5 ML BOTTLE EACHEYE SCH (21:06)
[2023-02-28] MEDS: OMEGA-3 FATTY ACIDS/FISH OIL CAPSULE GT SCH (21:06)
[2023-03-01] VITALS (10 sets, daily range): TEMP 97.5–98; O2SAT 97–99
[2023-03-01] MEDS: IPRATROPIUM BROMIDE 0.5 MG/2.5 ML NEBU NEB SCH ×4 (01:29→20:10)
[2023-03-01] MEDS: ALBUTEROL SULFATE 2.5 MG/3 ML NEBU NEB SCH ×4 (01:29→20:10)
[2023-03-01] MEDS: DOXYCYCLINE HYCLATE 100 MG TABLET GT SCH (05:37)
[2023-03-01] MEDS: VALPROIC ACID 250 MG/5 ML LIQUID UDC GT SCH ×3 (05:37→21:31)
[2023-03-01] MEDS: OMEPRAZOLE 20 MG CAPSULE.DR GT SCH (05:37)
[2023-03-01] MEDS: ACIDOPHILUS/BULGARICUS CHEW TAB GT SCH ×3 (05:37→21:31)
[2023-03-01] MEDS: JEVITY 1.2 1000 ML LIQUID GT PRN ×2 (05:39→23:20)
[2023-03-01] MEDS: PHENOBARBITAL 32.4 MG TABLET GT SCH ×2 (08:42→21:31)
[2023-03-01] MEDS: BENZOYL PEROXIDE 10% GEL 60 GM TUBE TP SCH ×2 (08:42→21:31)
[2023-03-01] MEDS: BACLOFEN 20 MG TABLET GT SCH ×3 (08:42→21:30)
[2023-03-01] MEDS: POLYVINYL ALCOHOL OPHT DROPS 15 ML BOTTLE EACHEYE SCH ×4 (08:42→21:30)
[2023-03-01] MEDS: HYDROGEN PEROXIDE 3% 118 ML BOTTLE TP SCH ×2 (08:52→21:04)
[2023-03-01] MEDS: REMEDY ESSENTIAL ZINC PASTE 113 GM TP SCH ×2 (09:53→21:31)
[2023-03-01] MEDS: OMEGA-3 FATTY ACIDS/FISH OIL CAPSULE GT SCH (21:30)
[2023-03-01] MEDS: NUTRISOURCE FIBER 4 GM PACKET GT SCH (21:30)
[2023-03-01] MEDS: LATANOPROST OPHT DROP 2.5 ML BOTTLE EACHEYE SCH (21:30)
[2023-03-02] VITALS (10 sets, daily range): TEMP 97.1–97.2; O2SAT 98–99
[2023-03-02] MEDS: IPRATROPIUM BROMIDE 0.5 MG/2.5 ML NEBU NEB SCH ×4 (01:39→19:55)
[2023-03-02] MEDS: ALBUTEROL SULFATE 2.5 MG/3 ML NEBU NEB SCH ×4 (01:39→19:55)
[2023-03-02] MEDS: OMEPRAZOLE 20 MG CAPSULE.DR GT SCH (05:40)
[2023-03-02] MEDS: DOXYCYCLINE HYCLATE 100 MG TABLET GT SCH (05:40)
[2023-03-02] MEDS: ACIDOPHILUS/BULGARICUS CHEW TAB GT SCH ×3 (05:40→21:15)
[2023-03-02] MEDS: VALPROIC ACID 250 MG/5 ML LIQUID UDC GT SCH ×3 (05:40→21:14)
[2023-03-02] MEDS: HYDROGEN PEROXIDE 3% 118 ML BOTTLE TP SCH ×2 (07:35→21:35)
[2023-03-02] MEDS: BENZOYL PEROXIDE 10% GEL 60 GM TUBE TP SCH ×2 (09:00→21:22)
[2023-03-02] MEDS: POLYVINYL ALCOHOL OPHT DROPS 15 ML BOTTLE EACHEYE SCH ×4 (09:33→21:12)
[2023-03-02] MEDS: BACLOFEN 20 MG TABLET GT SCH ×3 (09:33→21:21)
[2023-03-02] MEDS: REMEDY ESSENTIAL ZINC PASTE 113 GM TP SCH ×2 (09:33→21:14)
[2023-03-02] MEDS: PHENOBARBITAL 32.4 MG TABLET GT SCH ×2 (09:37→21:21)
[2023-03-02] MEDS: LATANOPROST OPHT DROP 2.5 ML BOTTLE EACHEYE SCH (21:14)
[2023-03-02] MEDS: NUTRISOURCE FIBER 4 GM PACKET GT SCH (21:14)
[2023-03-02] MEDS: OMEGA-3 FATTY ACIDS/FISH OIL CAPSULE GT SCH (21:14)
[2023-03-03] VITALS (11 sets, daily range): BP systolic 99; BP diastolic 62; TEMP 97.6–98.2; O2SAT 96–99
[2023-03-03] MEDS: IPRATROPIUM BROMIDE 0.5 MG/2.5 ML NEBU NEB SCH ×4 (01:48→19:40)
[2023-03-03] MEDS: ALBUTEROL SULFATE 2.5 MG/3 ML NEBU NEB SCH ×4 (01:48→19:40)
[2023-03-03] MEDS: OMEPRAZOLE 20 MG CAPSULE.DR GT SCH (05:31)
[2023-03-03] MEDS: DOXYCYCLINE HYCLATE 100 MG TABLET GT SCH (05:31)
[2023-03-03] MEDS: VALPROIC ACID 250 MG/5 ML LIQUID UDC GT SCH ×3 (05:31→22:12)
[2023-03-03] MEDS: ACIDOPHILUS/BULGARICUS CHEW TAB GT SCH ×3 (05:31→22:12)
[2023-03-03] MEDS: HYDROGEN PEROXIDE 3% 118 ML BOTTLE TP SCH ×2 (07:30→21:25)
[2023-03-03] MEDS: BENZOYL PEROXIDE 10% GEL 60 GM TUBE TP SCH ×2 (08:38→20:13)
[2023-03-03] MEDS: PHENOBARBITAL 32.4 MG TABLET GT SCH ×2 (08:38→20:11)
[2023-03-03] MEDS: BACLOFEN 20 MG TABLET GT SCH ×3 (08:38→20:10)
[2023-03-03] MEDS: REMEDY ESSENTIAL ZINC PASTE 113 GM TP SCH ×2 (08:38→20:13)
[2023-03-03] MEDS: POLYVINYL ALCOHOL OPHT DROPS 15 ML BOTTLE EACHEYE SCH ×4 (08:38→20:10)
[2023-03-03] MEDS: JEVITY 1.2 1000 ML LIQUID GT PRN (18:06)
[2023-03-03] MEDS: OMEGA-3 FATTY ACIDS/FISH OIL CAPSULE GT SCH (20:10)
[2023-03-03] MEDS: LATANOPROST OPHT DROP 2.5 ML BOTTLE EACHEYE SCH (20:10)
[2023-03-03] MEDS: NUTRISOURCE FIBER 4 GM PACKET GT SCH (20:10)
[2023-03-04] VITALS (10 sets, daily range): TEMP 97.6–98.3; O2SAT 96–99
[2023-03-04] MEDS: ALBUTEROL SULFATE 2.5 MG/3 ML NEBU NEB SCH ×4 (01:00→19:10)
[2023-03-04] MEDS: IPRATROPIUM BROMIDE 0.5 MG/2.5 ML NEBU NEB SCH ×4 (01:00→19:10)
[2023-03-04] MEDS: OMEPRAZOLE 20 MG CAPSULE.DR GT SCH (06:18)
[2023-03-04] MEDS: VALPROIC ACID 250 MG/5 ML LIQUID UDC GT SCH ×3 (06:18→21:51)
[2023-03-04] MEDS: ACIDOPHILUS/BULGARICUS CHEW TAB GT SCH ×3 (06:18→21:51)
[2023-03-04] MEDS: DOXYCYCLINE HYCLATE 100 MG TABLET GT SCH (06:18)
[2023-03-04] MEDS: HYDROGEN PEROXIDE 3% 118 ML BOTTLE TP SCH ×2 (07:08→20:43)
[2023-03-04] MEDS: BENZOYL PEROXIDE 10% GEL 60 GM TUBE TP SCH ×2 (09:09→20:11)
[2023-03-04] MEDS: POLYVINYL ALCOHOL OPHT DROPS 15 ML BOTTLE EACHEYE SCH ×4 (09:09→20:09)
[2023-03-04] MEDS: BACLOFEN 20 MG TABLET GT SCH ×3 (09:10→20:10)
[2023-03-04] MEDS: PHENOBARBITAL 32.4 MG TABLET GT SCH ×2 (09:10→20:10)
[2023-03-04] MEDS: REMEDY ESSENTIAL ZINC PASTE 113 GM TP SCH ×2 (09:10→20:11)
[2023-03-04] MEDS: LATANOPROST OPHT DROP 2.5 ML BOTTLE EACHEYE SCH (20:10)
[2023-03-04] MEDS: NUTRISOURCE FIBER 4 GM PACKET GT SCH (20:10)
[2023-03-04] MEDS: OMEGA-3 FATTY ACIDS/FISH OIL CAPSULE GT SCH (20:10)
[2023-03-05] VITALS (10 sets, daily range): TEMP 98.2–98.3; O2SAT 96–99
[2023-03-05] MEDS: IPRATROPIUM BROMIDE 0.5 MG/2.5 ML NEBU NEB SCH ×4 (00:55→19:54)
[2023-03-05] MEDS: ALBUTEROL SULFATE 2.5 MG/3 ML NEBU NEB SCH ×4 (00:55→19:54)
[2023-03-05] MEDS: JEVITY 1.2 1000 ML LIQUID GT PRN (03:08)
[2023-03-05] MEDS: ACIDOPHILUS/BULGARICUS CHEW TAB GT SCH ×3 (05:28→22:00)
[2023-03-05] MEDS: DOXYCYCLINE HYCLATE 100 MG TABLET GT SCH (05:28)
[2023-03-05] MEDS: OMEPRAZOLE 20 MG CAPSULE.DR GT SCH (05:28)
[2023-03-05] MEDS: VALPROIC ACID 250 MG/5 ML LIQUID UDC GT SCH ×3 (05:28→22:00)
[2023-03-05] MEDS: BACLOFEN 20 MG TABLET GT SCH ×3 (08:20→21:00)
[2023-03-05] MEDS: PHENOBARBITAL 32.4 MG TABLET GT SCH ×2 (08:20→21:00)
[2023-03-05] MEDS: POLYVINYL ALCOHOL OPHT DROPS 15 ML BOTTLE EACHEYE SCH ×4 (08:20→21:00)
[2023-03-05] MEDS: BENZOYL PEROXIDE 10% GEL 60 GM TUBE TP SCH ×2 (08:21→21:00)
[2023-03-05] MEDS: REMEDY ESSENTIAL ZINC PASTE 113 GM TP SCH ×2 (08:21→21:00)
[2023-03-05] MEDS: HYDROGEN PEROXIDE 3% 118 ML BOTTLE TP SCH ×2 (09:28→19:54)
[2023-03-05] MEDS: NUTRISOURCE FIBER 4 GM PACKET GT SCH (21:00)
[2023-03-05] MEDS: LATANOPROST OPHT DROP 2.5 ML BOTTLE EACHEYE SCH (21:00)
[2023-03-05] MEDS: OMEGA-3 FATTY ACIDS/FISH OIL CAPSULE GT SCH (21:00)
[2023-03-06] VITALS (10 sets, daily range): TEMP 98.2–98.5; O2SAT 97–99
[2023-03-06] MEDS: ALBUTEROL SULFATE 2.5 MG/3 ML NEBU NEB SCH ×4 (01:32→19:50)
[2023-03-06] MEDS: IPRATROPIUM BROMIDE 0.5 MG/2.5 ML NEBU NEB SCH ×4 (01:32→19:50)
[2023-03-06] MEDS: ACIDOPHILUS/BULGARICUS CHEW TAB GT SCH ×3 (06:22→21:38)
[2023-03-06] MEDS: VALPROIC ACID 250 MG/5 ML LIQUID UDC GT SCH ×3 (06:22→21:38)
[2023-03-06] MEDS: DOXYCYCLINE HYCLATE 100 MG TABLET GT SCH (06:22)
[2023-03-06] MEDS: OMEPRAZOLE 20 MG CAPSULE.DR GT SCH (06:22)
[2023-03-06] MEDS: HYDROGEN PEROXIDE 3% 118 ML BOTTLE TP SCH ×2 (07:27→21:00)
[2023-03-06] MEDS: POLYVINYL ALCOHOL OPHT DROPS 15 ML BOTTLE EACHEYE SCH ×4 (09:36→21:38)
[2023-03-06] MEDS: BACLOFEN 20 MG TABLET GT SCH ×3 (09:39→21:38)
[2023-03-06] MEDS: PHENOBARBITAL 32.4 MG TABLET GT SCH ×2 (09:39→21:38)
[2023-03-06] MEDS: REMEDY ESSENTIAL ZINC PASTE 113 GM TP SCH ×2 (09:40→21:38)
[2023-03-06] MEDS: BENZOYL PEROXIDE 10% GEL 60 GM TUBE TP SCH ×2 (09:40→21:38)
[2023-03-06] MEDS: LATANOPROST OPHT DROP 2.5 ML BOTTLE EACHEYE SCH (21:38)
[2023-03-06] MEDS: OMEGA-3 FATTY ACIDS/FISH OIL CAPSULE GT SCH (21:38)
[2023-03-06] MEDS: NUTRISOURCE FIBER 4 GM PACKET GT SCH (21:38)
[2023-03-07] VITALS (10 sets, daily range): TEMP 97.3–98.2; O2SAT 97–99
[2023-03-07] MEDS: ALBUTEROL SULFATE 2.5 MG/3 ML NEBU NEB SCH ×4 (01:27→20:20)
[2023-03-07] MEDS: IPRATROPIUM BROMIDE 0.5 MG/2.5 ML NEBU NEB SCH ×4 (01:27→20:20)
[2023-03-07] MEDS: JEVITY 1.2 1000 ML LIQUID GT PRN (02:42)
[2023-03-07] MEDS: DOXYCYCLINE HYCLATE 100 MG TABLET GT SCH (05:39)
[2023-03-07] MEDS: ACIDOPHILUS/BULGARICUS CHEW TAB GT SCH ×3 (05:39→22:00)
[2023-03-07] MEDS: OMEPRAZOLE 20 MG CAPSULE.DR GT SCH (05:39)
[2023-03-07] MEDS: VALPROIC ACID 250 MG/5 ML LIQUID UDC GT SCH ×3 (05:39→22:00)
[2023-03-07] MEDS: HYDROGEN PEROXIDE 3% 118 ML BOTTLE TP SCH ×2 (07:12→20:47)
[2023-03-07] MEDS: POLYVINYL ALCOHOL OPHT DROPS 15 ML BOTTLE EACHEYE SCH ×4 (09:30→21:59)
[2023-03-07] MEDS: BENZOYL PEROXIDE 10% GEL 60 GM TUBE TP SCH ×2 (09:30→21:59)
[2023-03-07] MEDS: REMEDY ESSENTIAL ZINC PASTE 113 GM TP SCH ×2 (09:30→21:59)
[2023-03-07] MEDS: BACLOFEN 20 MG TABLET GT SCH ×3 (09:30→21:59)
[2023-03-07] MEDS: PHENOBARBITAL 32.4 MG TABLET GT SCH ×2 (09:30→21:59)
[2023-03-07] MEDS: OMEGA-3 FATTY ACIDS/FISH OIL CAPSULE GT SCH (21:59)
[2023-03-07] MEDS: NUTRISOURCE FIBER 4 GM PACKET GT SCH (21:59)
[2023-03-07] MEDS: LATANOPROST OPHT DROP 2.5 ML BOTTLE EACHEYE SCH (21:59)
[2023-03-08] VITALS (9 sets, daily range): TEMP 97.2–97.4; O2SAT 97–99
[2023-03-08] MEDS: IPRATROPIUM BROMIDE 0.5 MG/2.5 ML NEBU NEB SCH ×4 (01:20→19:19)
[2023-03-08] MEDS: ALBUTEROL SULFATE 2.5 MG/3 ML NEBU NEB SCH ×4 (01:20→19:19)
[2023-03-08] MEDS: JEVITY 1.2 1000 ML LIQUID GT PRN (02:00)
[2023-03-08] MEDS: DOXYCYCLINE HYCLATE 100 MG TABLET GT SCH (05:46)
[2023-03-08] MEDS: VALPROIC ACID 250 MG/5 ML LIQUID UDC GT SCH ×3 (05:46→22:32)
[2023-03-08] MEDS: ACIDOPHILUS/BULGARICUS CHEW TAB GT SCH ×3 (05:46→22:32)
[2023-03-08] MEDS: OMEPRAZOLE 20 MG CAPSULE.DR GT SCH (05:46)
[2023-03-08] MEDS: HYDROGEN PEROXIDE 3% 118 ML BOTTLE TP SCH ×2 (07:19→19:19)
[2023-03-08] MEDS: BACLOFEN 20 MG TABLET GT SCH ×3 (08:22→21:00)
[2023-03-08] MEDS: BENZOYL PEROXIDE 10% GEL 60 GM TUBE TP SCH ×2 (08:22→21:00)
[2023-03-08] MEDS: POLYVINYL ALCOHOL OPHT DROPS 15 ML BOTTLE EACHEYE SCH ×4 (08:22→21:00)
[2023-03-08] MEDS: REMEDY ESSENTIAL ZINC PASTE 113 GM TP SCH ×2 (08:22→21:00)
[2023-03-08] MEDS: PHENOBARBITAL 32.4 MG TABLET GT SCH ×2 (08:22→21:00)
[2023-03-08] MEDS: OMEGA-3 FATTY ACIDS/FISH OIL CAPSULE GT SCH (21:00)
[2023-03-08] MEDS: NUTRISOURCE FIBER 4 GM PACKET GT SCH (21:00)
[2023-03-08] MEDS: LATANOPROST OPHT DROP 2.5 ML BOTTLE EACHEYE SCH (21:00)
[2023-03-09] VITALS (10 sets, daily range): TEMP 97.5–98.2; O2SAT 92–99
[2023-03-09] MEDS: IPRATROPIUM BROMIDE 0.5 MG/2.5 ML NEBU NEB SCH ×4 (01:19→19:12)
[2023-03-09] MEDS: ALBUTEROL SULFATE 2.5 MG/3 ML NEBU NEB SCH ×4 (01:19→19:13)
[2023-03-09] MEDS: OMEPRAZOLE 20 MG CAPSULE.DR GT SCH (05:30)
[2023-03-09] MEDS: DOXYCYCLINE HYCLATE 100 MG TABLET GT SCH (05:30)
[2023-03-09] MEDS: ACIDOPHILUS/BULGARICUS CHEW TAB GT SCH ×3 (05:30→22:11)
[2023-03-09] MEDS: VALPROIC ACID 250 MG/5 ML LIQUID UDC GT SCH ×3 (05:30→22:11)
[2023-03-09] MEDS: HYDROGEN PEROXIDE 3% 118 ML BOTTLE TP SCH ×2 (07:59→19:13)
[2023-03-09] MEDS: POLYVINYL ALCOHOL OPHT DROPS 15 ML BOTTLE EACHEYE SCH ×4 (09:26→21:41)
[2023-03-09] MEDS: BACLOFEN 20 MG TABLET GT SCH ×3 (09:27→21:44)
[2023-03-09] MEDS: PHENOBARBITAL 32.4 MG TABLET GT SCH ×2 (09:27→21:41)
[2023-03-09] MEDS: BENZOYL PEROXIDE 10% GEL 60 GM TUBE TP SCH ×2 (09:28→21:42)
[2023-03-09] MEDS: REMEDY ESSENTIAL ZINC PASTE 113 GM TP SCH ×2 (09:28→21:42)
[2023-03-09] MEDS: JEVITY 1.2 1000 ML LIQUID GT PRN (18:21)
[2023-03-09] MEDS: LATANOPROST OPHT DROP 2.5 ML BOTTLE EACHEYE SCH (21:41)
[2023-03-09] MEDS: OMEGA-3 FATTY ACIDS/FISH OIL CAPSULE GT SCH (21:41)
[2023-03-09] MEDS: NUTRISOURCE FIBER 4 GM PACKET GT SCH (21:41)
[2023-03-10] VITALS (13 sets, daily range): TEMP 96–97.5; O2SAT 96–99
[2023-03-10] MEDS: IPRATROPIUM BROMIDE 0.5 MG/2.5 ML NEBU NEB SCH ×4 (01:11→19:35)
[2023-03-10] MEDS: ALBUTEROL SULFATE 2.5 MG/3 ML NEBU NEB SCH ×4 (01:12→19:35)
[2023-03-10] MEDS: ACIDOPHILUS/BULGARICUS CHEW TAB GT SCH ×3 (06:57→21:06)
[2023-03-10] MEDS: DOXYCYCLINE HYCLATE 100 MG TABLET GT SCH (06:57)
[2023-03-10] MEDS: VALPROIC ACID 250 MG/5 ML LIQUID UDC GT SCH ×3 (06:57→21:06)
[2023-03-10] MEDS: OMEPRAZOLE 20 MG CAPSULE.DR GT SCH (06:57)
[2023-03-10] MEDS: HYDROGEN PEROXIDE 3% 118 ML BOTTLE TP SCH ×2 (07:15→21:00)
[2023-03-10] MEDS: PHENOBARBITAL 32.4 MG TABLET GT SCH ×2 (09:40→20:51)
[2023-03-10] MEDS: BACLOFEN 20 MG TABLET GT SCH ×3 (09:40→20:51)
[2023-03-10] MEDS: POLYVINYL ALCOHOL OPHT DROPS 15 ML BOTTLE EACHEYE SCH ×4 (09:40→20:51)
[2023-03-10] MEDS: BENZOYL PEROXIDE 10% GEL 60 GM TUBE TP SCH ×2 (09:41→20:51)
[2023-03-10] MEDS: REMEDY ESSENTIAL ZINC PASTE 113 GM TP SCH ×2 (09:41→20:52)
[2023-03-10] MEDS: JEVITY 1.2 1000 ML LIQUID GT PRN (15:22)
[2023-03-10] MEDS: LATANOPROST OPHT DROP 2.5 ML BOTTLE EACHEYE SCH (20:51)
[2023-03-10] MEDS: NUTRISOURCE FIBER 4 GM PACKET GT SCH (20:51)
[2023-03-10] MEDS: OMEGA-3 FATTY ACIDS/FISH OIL CAPSULE GT SCH (20:55)
[2023-03-11] VITALS (11 sets, daily range): BP systolic 101; BP diastolic 66; TEMP 96.6–97.4; O2SAT 97–99
[2023-03-11] MEDS: ALBUTEROL SULFATE 2.5 MG/3 ML NEBU NEB SCH ×4 (01:03→20:22)
[2023-03-11] MEDS: IPRATROPIUM BROMIDE 0.5 MG/2.5 ML NEBU NEB SCH ×4 (01:03→20:22)
[2023-03-11] MEDS: OMEPRAZOLE 20 MG CAPSULE.DR GT SCH (05:58)
[2023-03-11] MEDS: VALPROIC ACID 250 MG/5 ML LIQUID UDC GT SCH ×3 (05:58→21:24)
[2023-03-11] MEDS: DOXYCYCLINE HYCLATE 100 MG TABLET GT SCH (05:58)
[2023-03-11] MEDS: ACIDOPHILUS/BULGARICUS CHEW TAB GT SCH ×3 (05:58→21:24)
[2023-03-11] MEDS: PHENOBARBITAL 32.4 MG TABLET GT SCH ×2 (08:23→20:25)
[2023-03-11] MEDS: REMEDY ESSENTIAL ZINC PASTE 113 GM TP SCH ×2 (08:23→20:25)
[2023-03-11] MEDS: POLYVINYL ALCOHOL OPHT DROPS 15 ML BOTTLE EACHEYE SCH ×4 (08:23→20:25)
[2023-03-11] MEDS: BENZOYL PEROXIDE 10% GEL 60 GM TUBE TP SCH ×2 (08:23→20:25)
[2023-03-11] MEDS: BACLOFEN 20 MG TABLET GT SCH ×3 (08:23→20:25)
[2023-03-11] MEDS: HYDROGEN PEROXIDE 3% 118 ML BOTTLE TP SCH ×2 (09:31→20:22)
[2023-03-11] MEDS: JEVITY 1.2 1000 ML LIQUID GT PRN (17:14)
[2023-03-11] MEDS: LATANOPROST OPHT DROP 2.5 ML BOTTLE EACHEYE SCH (20:25)
[2023-03-11] MEDS: NUTRISOURCE FIBER 4 GM PACKET GT SCH (20:25)
[2023-03-11] MEDS: OMEGA-3 FATTY ACIDS/FISH OIL CAPSULE GT SCH (20:25)
[2023-03-12] VITALS (10 sets, daily range): TEMP 97.3–97.6; O2SAT 97–99
[2023-03-12] MEDS: ALBUTEROL SULFATE 2.5 MG/3 ML NEBU NEB SCH ×4 (01:30→19:19)
[2023-03-12] MEDS: IPRATROPIUM BROMIDE 0.5 MG/2.5 ML NEBU NEB SCH ×4 (01:30→19:19)
[2023-03-12] MEDS: ACIDOPHILUS/BULGARICUS CHEW TAB GT SCH ×3 (05:37→22:21)
[2023-03-12] MEDS: DOXYCYCLINE HYCLATE 100 MG TABLET GT SCH (05:37)
[2023-03-12] MEDS: VALPROIC ACID 250 MG/5 ML LIQUID UDC GT SCH ×3 (05:37→22:21)
[2023-03-12] MEDS: OMEPRAZOLE 20 MG CAPSULE.DR GT SCH (05:37)
[2023-03-12] MEDS: POLYVINYL ALCOHOL OPHT DROPS 15 ML BOTTLE EACHEYE SCH ×4 (08:25→20:12)
[2023-03-12] MEDS: BENZOYL PEROXIDE 10% GEL 60 GM TUBE TP SCH ×2 (08:28→20:16)
[2023-03-12] MEDS: REMEDY ESSENTIAL ZINC PASTE 113 GM TP SCH ×2 (08:28→20:17)
[2023-03-12] MEDS: BACLOFEN 20 MG TABLET GT SCH ×3 (08:31→20:15)
[2023-03-12] MEDS: PHENOBARBITAL 32.4 MG TABLET GT SCH ×2 (08:31→20:16)
[2023-03-12] MEDS: HYDROGEN PEROXIDE 3% 118 ML BOTTLE TP SCH ×2 (09:10→19:20)
[2023-03-12] MEDS: JEVITY 1.2 1000 ML LIQUID GT PRN (11:48)
[2023-03-12] MEDS: LATANOPROST OPHT DROP 2.5 ML BOTTLE EACHEYE SCH (20:12)
[2023-03-12] MEDS: OMEGA-3 FATTY ACIDS/FISH OIL CAPSULE GT SCH (20:12)
[2023-03-12] MEDS: NUTRISOURCE FIBER 4 GM PACKET GT SCH (20:15)
[2023-03-13] VITALS (10 sets, daily range): TEMP 97.8–98.1; O2SAT 97–99
[2023-03-13] MEDS: IPRATROPIUM BROMIDE 0.5 MG/2.5 ML NEBU NEB SCH ×4 (01:28→20:00)
[2023-03-13] MEDS: ALBUTEROL SULFATE 2.5 MG/3 ML NEBU NEB SCH ×4 (01:28→20:00)
[2023-03-13] MEDS: JEVITY 1.2 1000 ML LIQUID GT PRN (04:01)
[2023-03-13] MEDS: ACIDOPHILUS/BULGARICUS CHEW TAB GT SCH ×3 (05:16→21:49)
[2023-03-13] MEDS: VALPROIC ACID 250 MG/5 ML LIQUID UDC GT SCH ×3 (05:16→21:50)
[2023-03-13] MEDS: OMEPRAZOLE 20 MG CAPSULE.DR GT SCH (05:16)
[2023-03-13] MEDS: DOXYCYCLINE HYCLATE 100 MG TABLET GT SCH (05:16)
[2023-03-13] MEDS: HYDROGEN PEROXIDE 3% 118 ML BOTTLE TP SCH ×2 (07:12→20:54)
[2023-03-13] MEDS: PHENOBARBITAL 32.4 MG TABLET GT SCH ×2 (08:34→21:49)
[2023-03-13] MEDS: BACLOFEN 20 MG TABLET GT SCH ×3 (08:34→21:49)
[2023-03-13] MEDS: POLYVINYL ALCOHOL OPHT DROPS 15 ML BOTTLE EACHEYE SCH ×4 (08:34→21:49)
[2023-03-13] MEDS: BENZOYL PEROXIDE 10% GEL 60 GM TUBE TP SCH ×2 (08:39→21:49)
[2023-03-13] MEDS: REMEDY ESSENTIAL ZINC PASTE 113 GM TP SCH ×2 (08:39→21:49)
[2023-03-13] MEDS: LATANOPROST OPHT DROP 2.5 ML BOTTLE EACHEYE SCH (21:49)
[2023-03-13] MEDS: OMEGA-3 FATTY ACIDS/FISH OIL CAPSULE GT SCH (21:49)
[2023-03-13] MEDS: NUTRISOURCE FIBER 4 GM PACKET GT SCH (21:49)
[2023-03-14] VITALS (10 sets, daily range): TEMP 98; O2SAT 97–99
[2023-03-14] MEDS: ALBUTEROL SULFATE 2.5 MG/3 ML NEBU NEB SCH ×4 (01:00→19:25)
[2023-03-14] MEDS: IPRATROPIUM BROMIDE 0.5 MG/2.5 ML NEBU NEB SCH ×4 (01:00→19:25)
[2023-03-14] MEDS: VALPROIC ACID 250 MG/5 ML LIQUID UDC GT SCH ×3 (06:13→21:52)
[2023-03-14] MEDS: DOXYCYCLINE HYCLATE 100 MG TABLET GT SCH (06:13)
[2023-03-14] MEDS: OMEPRAZOLE 20 MG CAPSULE.DR GT SCH (06:13)
[2023-03-14] MEDS: ACIDOPHILUS/BULGARICUS CHEW TAB GT SCH ×3 (06:13→21:38)
[2023-03-14] MEDS: JEVITY 1.2 1000 ML LIQUID GT PRN ×2 (06:14→22:27)
[2023-03-14] MEDS: HYDROGEN PEROXIDE 3% 118 ML BOTTLE TP SCH ×2 (09:00→19:25)
[2023-03-14] MEDS: REMEDY ESSENTIAL ZINC PASTE 113 GM TP SCH ×2 (09:00→21:38)
[2023-03-14] MEDS: PHENOBARBITAL 32.4 MG TABLET GT SCH ×2 (09:59→21:37)
[2023-03-14] MEDS: BACLOFEN 20 MG TABLET GT SCH ×3 (09:59→21:38)
[2023-03-14] MEDS: POLYVINYL ALCOHOL OPHT DROPS 15 ML BOTTLE EACHEYE SCH ×4 (09:59→21:37)
[2023-03-14] MEDS: BENZOYL PEROXIDE 10% GEL 60 GM TUBE TP SCH ×2 (10:00→21:38)
[2023-03-14] MEDS: NUTRISOURCE FIBER 4 GM PACKET GT SCH (21:37)
[2023-03-14] MEDS: LATANOPROST OPHT DROP 2.5 ML BOTTLE EACHEYE SCH (21:37)
[2023-03-14] MEDS: OMEGA-3 FATTY ACIDS/FISH OIL CAPSULE GT SCH (21:37)
[2023-03-15] VITALS (9 sets, daily range): TEMP 97–98.4; O2SAT 97–99
[2023-03-15] MEDS: IPRATROPIUM BROMIDE 0.5 MG/2.5 ML NEBU NEB SCH ×4 (01:04→20:00)
[2023-03-15] MEDS: ALBUTEROL SULFATE 2.5 MG/3 ML NEBU NEB SCH ×4 (01:05→20:00)
[2023-03-15] MEDS: ACIDOPHILUS/BULGARICUS CHEW TAB GT SCH ×3 (06:20→21:45)
[2023-03-15] MEDS: OMEPRAZOLE 20 MG CAPSULE.DR GT SCH (06:20)
[2023-03-15] MEDS: DOXYCYCLINE HYCLATE 100 MG TABLET GT SCH (06:22)
[2023-03-15] MEDS: VALPROIC ACID 250 MG/5 ML LIQUID UDC GT SCH ×3 (06:24→21:45)
[2023-03-15] MEDS: BENZOYL PEROXIDE 10% GEL 60 GM TUBE TP SCH ×2 (09:00→21:44)
[2023-03-15] MEDS: POLYVINYL ALCOHOL OPHT DROPS 15 ML BOTTLE EACHEYE SCH ×4 (09:00→21:44)
[2023-03-15] MEDS: REMEDY ESSENTIAL ZINC PASTE 113 GM TP SCH ×2 (09:00→21:45)
[2023-03-15] MEDS: HYDROGEN PEROXIDE 3% 118 ML BOTTLE TP SCH ×2 (09:12→21:29)
[2023-03-15] MEDS: PHENOBARBITAL 32.4 MG TABLET GT SCH ×2 (09:59→21:44)
[2023-03-15] MEDS: BACLOFEN 20 MG TABLET GT SCH ×3 (09:59→21:44)
[2023-03-15] MEDS: NUTRISOURCE FIBER 4 GM PACKET GT SCH (21:44)
[2023-03-15] MEDS: OMEGA-3 FATTY ACIDS/FISH OIL CAPSULE GT SCH (21:44)
[2023-03-15] MEDS: LATANOPROST OPHT DROP 2.5 ML BOTTLE EACHEYE SCH (21:44)
[2023-03-16] VITALS (10 sets, daily range): TEMP 97.5–97.6; O2SAT 98–99
[2023-03-16] MEDS: ALBUTEROL SULFATE 2.5 MG/3 ML NEBU NEB SCH ×4 (01:14→19:39)
[2023-03-16] MEDS: IPRATROPIUM BROMIDE 0.5 MG/2.5 ML NEBU NEB SCH ×4 (01:14→19:39)
[2023-03-16] MEDS: ACIDOPHILUS/BULGARICUS CHEW TAB GT SCH ×3 (06:08→22:00)
[2023-03-16] MEDS: DOXYCYCLINE HYCLATE 100 MG TABLET GT SCH (06:08)
[2023-03-16] MEDS: OMEPRAZOLE 20 MG CAPSULE.DR GT SCH (06:08)
[2023-03-16] MEDS: VALPROIC ACID 250 MG/5 ML LIQUID UDC GT SCH ×3 (06:08→22:00)
[2023-03-16] MEDS: HYDROGEN PEROXIDE 3% 118 ML BOTTLE TP SCH ×2 (07:07→21:07)
[2023-03-16] MEDS: BENZOYL PEROXIDE 10% GEL 60 GM TUBE TP SCH ×2 (08:36→21:00)
[2023-03-16] MEDS: REMEDY ESSENTIAL ZINC PASTE 113 GM TP SCH ×2 (08:36→21:00)
[2023-03-16] MEDS: POLYVINYL ALCOHOL OPHT DROPS 15 ML BOTTLE EACHEYE SCH ×4 (08:36→21:57)
[2023-03-16] MEDS: PHENOBARBITAL 32.4 MG TABLET GT SCH ×2 (08:36→21:00)
[2023-03-16] MEDS: BACLOFEN 20 MG TABLET GT SCH ×3 (08:36→21:00)
[2023-03-16] MEDS: JEVITY 1.2 1000 ML LIQUID GT PRN (13:07)
[2023-03-16] MEDS: NUTRISOURCE FIBER 4 GM PACKET GT SCH (21:00)
[2023-03-16] MEDS: LATANOPROST OPHT DROP 2.5 ML BOTTLE EACHEYE SCH (21:57)
[2023-03-16] MEDS: OMEGA-3 FATTY ACIDS/FISH OIL CAPSULE GT SCH (21:57)
[2023-03-17] VITALS (10 sets, daily range): TEMP 97.4–97.8; O2SAT 96–99
[2023-03-17] MEDS: ALBUTEROL SULFATE 2.5 MG/3 ML NEBU NEB SCH ×4 (01:32→19:21)
[2023-03-17] MEDS: IPRATROPIUM BROMIDE 0.5 MG/2.5 ML NEBU NEB SCH ×4 (01:32→19:21)
[2023-03-17] MEDS: VALPROIC ACID 250 MG/5 ML LIQUID UDC GT SCH ×3 (05:47→21:50)
[2023-03-17] MEDS: ACIDOPHILUS/BULGARICUS CHEW TAB GT SCH ×3 (05:47→21:50)
[2023-03-17] MEDS: OMEPRAZOLE 20 MG CAPSULE.DR GT SCH (05:47)
[2023-03-17] MEDS: DOXYCYCLINE HYCLATE 100 MG TABLET GT SCH (05:49)
[2023-03-17] MEDS: HYDROGEN PEROXIDE 3% 118 ML BOTTLE TP SCH ×2 (07:53→21:53)
[2023-03-17] MEDS: REMEDY ESSENTIAL ZINC PASTE 113 GM TP SCH ×2 (08:35→21:50)
[2023-03-17] MEDS: BACLOFEN 20 MG TABLET GT SCH ×3 (08:35→21:50)
[2023-03-17] MEDS: POLYVINYL ALCOHOL OPHT DROPS 15 ML BOTTLE EACHEYE SCH ×4 (08:35→21:50)
[2023-03-17] MEDS: BENZOYL PEROXIDE 10% GEL 60 GM TUBE TP SCH ×2 (08:35→21:50)
[2023-03-17] MEDS: PHENOBARBITAL 32.4 MG TABLET GT SCH ×2 (08:35→21:50)
[2023-03-17] MEDS: JEVITY 1.2 1000 ML LIQUID GT PRN (09:46)
[2023-03-17] MEDS: LATANOPROST OPHT DROP 2.5 ML BOTTLE EACHEYE SCH (21:50)
[2023-03-17] MEDS: NUTRISOURCE FIBER 4 GM PACKET GT SCH (21:50)
[2023-03-17] MEDS: OMEGA-3 FATTY ACIDS/FISH OIL CAPSULE GT SCH (21:50)
[2023-03-18] VITALS (10 sets, daily range): TEMP 97.5–97.6; O2SAT 96–99
[2023-03-18] MEDS: IPRATROPIUM BROMIDE 0.5 MG/2.5 ML NEBU NEB SCH ×4 (01:06→19:10)
[2023-03-18] MEDS: ALBUTEROL SULFATE 2.5 MG/3 ML NEBU NEB SCH ×4 (01:06→19:10)
[2023-03-18] MEDS: JEVITY 1.2 1000 ML LIQUID GT PRN (04:55)
[2023-03-18] MEDS: ACIDOPHILUS/BULGARICUS CHEW TAB GT SCH ×3 (05:14→21:25)
[2023-03-18] MEDS: OMEPRAZOLE 20 MG CAPSULE.DR GT SCH (05:14)
[2023-03-18] MEDS: DOXYCYCLINE HYCLATE 100 MG TABLET GT SCH (05:14)
[2023-03-18] MEDS: VALPROIC ACID 250 MG/5 ML LIQUID UDC GT SCH ×3 (05:14→21:25)
[2023-03-18] MEDS: HYDROGEN PEROXIDE 3% 118 ML BOTTLE TP SCH ×2 (07:46→20:32)
[2023-03-18] MEDS: POLYVINYL ALCOHOL OPHT DROPS 15 ML BOTTLE EACHEYE SCH ×4 (08:35→21:21)
[2023-03-18] MEDS: BENZOYL PEROXIDE 10% GEL 60 GM TUBE TP SCH ×2 (08:36→21:21)
[2023-03-18] MEDS: REMEDY ESSENTIAL ZINC PASTE 113 GM TP SCH ×2 (08:41→21:25)
[2023-03-18] MEDS: BACLOFEN 20 MG TABLET GT SCH ×3 (08:41→21:21)
[2023-03-18] MEDS: PHENOBARBITAL 32.4 MG TABLET GT SCH ×2 (08:41→21:21)
[2023-03-18] MEDS: OMEGA-3 FATTY ACIDS/FISH OIL CAPSULE GT SCH (21:21)
[2023-03-18] MEDS: LATANOPROST OPHT DROP 2.5 ML BOTTLE EACHEYE SCH (21:21)
[2023-03-18] MEDS: NUTRISOURCE FIBER 4 GM PACKET GT SCH (21:21)
[2023-03-19] VITALS (10 sets, daily range): TEMP 97.7–97.8; O2SAT 95–99
[2023-03-19] MEDS: IPRATROPIUM BROMIDE 0.5 MG/2.5 ML NEBU NEB SCH ×4 (00:45→19:18)
[2023-03-19] MEDS: ALBUTEROL SULFATE 2.5 MG/3 ML NEBU NEB SCH ×4 (00:45→19:18)
[2023-03-19] MEDS: JEVITY 1.2 1000 ML LIQUID GT PRN ×2 (03:24→23:10)
[2023-03-19] MEDS: ACIDOPHILUS/BULGARICUS CHEW TAB GT SCH ×3 (05:30→21:08)
[2023-03-19] MEDS: OMEPRAZOLE 20 MG CAPSULE.DR GT SCH (05:30)
[2023-03-19] MEDS: VALPROIC ACID 250 MG/5 ML LIQUID UDC GT SCH ×3 (05:30→21:08)
[2023-03-19] MEDS: DOXYCYCLINE HYCLATE 100 MG TABLET GT SCH (05:31)
[2023-03-19] MEDS: POLYVINYL ALCOHOL OPHT DROPS 15 ML BOTTLE EACHEYE SCH ×4 (08:36→21:07)
[2023-03-19] MEDS: PHENOBARBITAL 32.4 MG TABLET GT SCH ×2 (08:36→21:08)
[2023-03-19] MEDS: REMEDY ESSENTIAL ZINC PASTE 113 GM TP SCH ×2 (08:36→21:08)
[2023-03-19] MEDS: BENZOYL PEROXIDE 10% GEL 60 GM TUBE TP SCH ×2 (08:36→21:08)
[2023-03-19] MEDS: BACLOFEN 20 MG TABLET GT SCH ×3 (08:36→21:08)
[2023-03-19] MEDS: HYDROGEN PEROXIDE 3% 118 ML BOTTLE TP SCH ×2 (09:23→21:50)
[2023-03-19] MEDS: LATANOPROST OPHT DROP 2.5 ML BOTTLE EACHEYE SCH (21:08)
[2023-03-19] MEDS: OMEGA-3 FATTY ACIDS/FISH OIL CAPSULE GT SCH (21:08)
[2023-03-19] MEDS: NUTRISOURCE FIBER 4 GM PACKET GT SCH (21:08)
[2023-03-20] VITALS (10 sets, daily range): TEMP 97.6–97.8; O2SAT 96–99
[2023-03-20] MEDS: IPRATROPIUM BROMIDE 0.5 MG/2.5 ML NEBU NEB SCH ×4 (01:23→19:40)
[2023-03-20] MEDS: ALBUTEROL SULFATE 2.5 MG/3 ML NEBU NEB SCH ×4 (01:23→19:40)
[2023-03-20] MEDS: DOXYCYCLINE HYCLATE 100 MG TABLET GT SCH (05:39)
[2023-03-20] MEDS: VALPROIC ACID 250 MG/5 ML LIQUID UDC GT SCH ×3 (05:39→21:39)
[2023-03-20] MEDS: OMEPRAZOLE 20 MG CAPSULE.DR GT SCH (05:39)
[2023-03-20] MEDS: ACIDOPHILUS/BULGARICUS CHEW TAB GT SCH ×3 (05:39→21:39)
[2023-03-20] MEDS: HYDROGEN PEROXIDE 3% 118 ML BOTTLE TP SCH ×2 (07:32→20:54)
[2023-03-20] MEDS: POLYVINYL ALCOHOL OPHT DROPS 15 ML BOTTLE EACHEYE SCH ×4 (08:50→21:37)
[2023-03-20] MEDS: BACLOFEN 20 MG TABLET GT SCH ×3 (08:50→21:37)
[2023-03-20] MEDS: REMEDY ESSENTIAL ZINC PASTE 113 GM TP SCH ×2 (08:51→21:39)
[2023-03-20] MEDS: PHENOBARBITAL 32.4 MG TABLET GT SCH ×2 (08:51→21:38)
[2023-03-20] MEDS: BENZOYL PEROXIDE 10% GEL 60 GM TUBE TP SCH ×2 (08:51→21:39)
[2023-03-20] MEDS: OMEGA-3 FATTY ACIDS/FISH OIL CAPSULE GT SCH (21:37)
[2023-03-20] MEDS: LATANOPROST OPHT DROP 2.5 ML BOTTLE EACHEYE SCH (21:37)
[2023-03-20] MEDS: NUTRISOURCE FIBER 4 GM PACKET GT SCH (21:37)
[2023-03-21] VITALS (10 sets, daily range): TEMP 97.6–98.7; O2SAT 97–99
[2023-03-21] MEDS: ALBUTEROL SULFATE 2.5 MG/3 ML NEBU NEB SCH ×4 (02:21→19:14)
[2023-03-21] MEDS: IPRATROPIUM BROMIDE 0.5 MG/2.5 ML NEBU NEB SCH ×4 (02:21→19:14)
[2023-03-21] MEDS: VALPROIC ACID 250 MG/5 ML LIQUID UDC GT SCH ×3 (06:18→21:16)
[2023-03-21] MEDS: ACIDOPHILUS/BULGARICUS CHEW TAB GT SCH ×3 (06:18→21:16)
[2023-03-21] MEDS: OMEPRAZOLE 20 MG CAPSULE.DR GT SCH (06:18)
[2023-03-21] MEDS: DOXYCYCLINE HYCLATE 100 MG TABLET GT SCH (06:19)
[2023-03-21] MEDS: HYDROGEN PEROXIDE 3% 118 ML BOTTLE TP SCH ×2 (07:05→21:45)
[2023-03-21] MEDS: POLYVINYL ALCOHOL OPHT DROPS 15 ML BOTTLE EACHEYE SCH ×4 (08:26→20:03)
[2023-03-21] MEDS: BACLOFEN 20 MG TABLET GT SCH ×3 (08:29→20:09)
[2023-03-21] MEDS: PHENOBARBITAL 32.4 MG TABLET GT SCH ×2 (08:29→20:09)
[2023-03-21] MEDS: BENZOYL PEROXIDE 10% GEL 60 GM TUBE TP SCH ×2 (08:30→20:04)
[2023-03-21] MEDS: REMEDY ESSENTIAL ZINC PASTE 113 GM TP SCH ×2 (08:30→20:04)
[2023-03-21] MEDS: JEVITY 1.2 1000 ML LIQUID GT PRN (14:39)
[2023-03-21] MEDS: LATANOPROST OPHT DROP 2.5 ML BOTTLE EACHEYE SCH (20:03)
[2023-03-21] MEDS: OMEGA-3 FATTY ACIDS/FISH OIL CAPSULE GT SCH (20:03)
[2023-03-21] MEDS: NUTRISOURCE FIBER 4 GM PACKET GT SCH (20:04)
[2023-03-22] VITALS (10 sets, daily range): TEMP 96.8–97.5; O2SAT 96–99
[2023-03-22] MEDS: IPRATROPIUM BROMIDE 0.5 MG/2.5 ML NEBU NEB SCH ×4 (00:43→19:29)
[2023-03-22] MEDS: ALBUTEROL SULFATE 2.5 MG/3 ML NEBU NEB SCH ×4 (00:44→19:29)
[2023-03-22] MEDS: DOXYCYCLINE HYCLATE 100 MG TABLET GT SCH (06:04)
[2023-03-22] MEDS: VALPROIC ACID 250 MG/5 ML LIQUID UDC GT SCH ×3 (06:04→22:07)
[2023-03-22] MEDS: OMEPRAZOLE 20 MG CAPSULE.DR GT SCH (06:04)
[2023-03-22] MEDS: ACIDOPHILUS/BULGARICUS CHEW TAB GT SCH ×3 (06:04→22:07)
[2023-03-22] MEDS: HYDROGEN PEROXIDE 3% 118 ML BOTTLE TP SCH ×2 (07:32→21:21)
[2023-03-22] MEDS: BENZOYL PEROXIDE 10% GEL 60 GM TUBE TP SCH ×2 (08:59→20:25)
[2023-03-22] MEDS: REMEDY ESSENTIAL ZINC PASTE 113 GM TP SCH ×2 (08:59→20:26)
[2023-03-22] MEDS: BACLOFEN 20 MG TABLET GT SCH ×3 (08:59→20:23)
[2023-03-22] MEDS: PHENOBARBITAL 32.4 MG TABLET GT SCH ×2 (08:59→20:25)
[2023-03-22] MEDS: POLYVINYL ALCOHOL OPHT DROPS 15 ML BOTTLE EACHEYE SCH ×4 (08:59→20:22)
[2023-03-22] MEDS: JEVITY 1.2 1000 ML LIQUID GT PRN (12:13)
[2023-03-22] MEDS ORDERED: INFLUENZA VACCINE 2023-2024 0.5 ML DISP.SYRIN IM ONE (13:00)
[2023-03-22] MEDS: LATANOPROST OPHT DROP 2.5 ML BOTTLE EACHEYE SCH (20:22)
[2023-03-22] MEDS: NUTRISOURCE FIBER 4 GM PACKET GT SCH (20:23)
[2023-03-22] MEDS: OMEGA-3 FATTY ACIDS/FISH OIL CAPSULE GT SCH (20:23)
[2023-03-23] VITALS (10 sets, daily range): TEMP 97.4–97.6; O2SAT 96–99
[2023-03-23] MEDS: IPRATROPIUM BROMIDE 0.5 MG/2.5 ML NEBU NEB SCH ×4 (01:24→19:30)
[2023-03-23] MEDS: ALBUTEROL SULFATE 2.5 MG/3 ML NEBU NEB SCH ×4 (01:24→19:30)
[2023-03-23] MEDS: JEVITY 1.2 1000 ML LIQUID GT PRN ×2 (03:39→23:00)
[2023-03-23] MEDS: VALPROIC ACID 250 MG/5 ML LIQUID UDC GT SCH ×3 (05:36→22:11)
[2023-03-23] MEDS: OMEPRAZOLE 20 MG CAPSULE.DR GT SCH (05:36)
[2023-03-23] MEDS: ACIDOPHILUS/BULGARICUS CHEW TAB GT SCH ×3 (05:36→22:11)
[2023-03-23] MEDS: DOXYCYCLINE HYCLATE 100 MG TABLET GT SCH (05:36)
[2023-03-23] MEDS: HYDROGEN PEROXIDE 3% 118 ML BOTTLE TP SCH ×2 (07:12→20:51)
[2023-03-23] MEDS: REMEDY ESSENTIAL ZINC PASTE 113 GM TP SCH ×2 (09:54→21:45)
[2023-03-23] MEDS: BENZOYL PEROXIDE 10% GEL 60 GM TUBE TP SCH ×2 (09:54→21:44)
[2023-03-23] MEDS: PHENOBARBITAL 32.4 MG TABLET GT SCH ×2 (09:54→21:43)
[2023-03-23] MEDS: POLYVINYL ALCOHOL OPHT DROPS 15 ML BOTTLE EACHEYE SCH ×4 (09:54→21:42)
[2023-03-23] MEDS: BACLOFEN 20 MG TABLET GT SCH ×3 (09:54→21:00)
[2023-03-23] MEDS: NUTRISOURCE FIBER 4 GM PACKET GT SCH (21:00)
[2023-03-23] MEDS: OMEGA-3 FATTY ACIDS/FISH OIL CAPSULE GT SCH (21:00)
[2023-03-23] MEDS: LATANOPROST OPHT DROP 2.5 ML BOTTLE EACHEYE SCH (21:42)
[2023-03-24] VITALS (10 sets, daily range): TEMP 97–97.7; O2SAT 96–99
[2023-03-24] MEDS: IPRATROPIUM BROMIDE 0.5 MG/2.5 ML NEBU NEB SCH ×4 (01:44→19:35)
[2023-03-24] MEDS: ALBUTEROL SULFATE 2.5 MG/3 ML NEBU NEB SCH ×4 (01:44→19:35)
[2023-03-24] MEDS: VALPROIC ACID 250 MG/5 ML LIQUID UDC GT SCH ×3 (05:10→22:23)
[2023-03-24] MEDS: DOXYCYCLINE HYCLATE 100 MG TABLET GT SCH (05:10)
[2023-03-24] MEDS: OMEPRAZOLE 20 MG CAPSULE.DR GT SCH (05:10)
[2023-03-24] MEDS: ACIDOPHILUS/BULGARICUS CHEW TAB GT SCH ×3 (05:10→22:23)
[2023-03-24] MEDS: POLYVINYL ALCOHOL OPHT DROPS 15 ML BOTTLE EACHEYE SCH ×4 (09:13→21:00)
[2023-03-24] MEDS: BACLOFEN 20 MG TABLET GT SCH ×3 (09:13→21:00)
[2023-03-24] MEDS: BENZOYL PEROXIDE 10% GEL 60 GM TUBE TP SCH ×2 (09:15→21:00)
[2023-03-24] MEDS: HYDROGEN PEROXIDE 3% 118 ML BOTTLE TP SCH ×2 (09:15→19:35)
[2023-03-24] MEDS: REMEDY ESSENTIAL ZINC PASTE 113 GM TP SCH ×2 (09:15→21:00)
[2023-03-24] MEDS: PHENOBARBITAL 32.4 MG TABLET GT SCH ×2 (09:22→21:00)
[2023-03-24] MEDS: LATANOPROST OPHT DROP 2.5 ML BOTTLE EACHEYE SCH (21:00)
[2023-03-24] MEDS: NUTRISOURCE FIBER 4 GM PACKET GT SCH (21:00)
[2023-03-24] MEDS: OMEGA-3 FATTY ACIDS/FISH OIL CAPSULE GT SCH (21:00)
[2023-03-25] VITALS (12 sets, daily range): BP systolic 112–122; BP diastolic 63–69; TEMP 97.6–97.8; O2SAT 96–99
[2023-03-25] MEDS: ALBUTEROL SULFATE 2.5 MG/3 ML NEBU NEB SCH ×4 (01:31→19:14)
[2023-03-25] MEDS: IPRATROPIUM BROMIDE 0.5 MG/2.5 ML NEBU NEB SCH ×4 (01:31→19:14)
[2023-03-25] MEDS: VALPROIC ACID 250 MG/5 ML LIQUID UDC GT SCH ×3 (05:41→21:39)
[2023-03-25] MEDS: ACIDOPHILUS/BULGARICUS CHEW TAB GT SCH ×3 (05:41→21:39)
[2023-03-25] MEDS: DOXYCYCLINE HYCLATE 100 MG TABLET GT SCH (05:42)
[2023-03-25] MEDS: OMEPRAZOLE 20 MG CAPSULE.DR GT SCH (05:48)
[2023-03-25] MEDS: HYDROGEN PEROXIDE 3% 118 ML BOTTLE TP SCH ×2 (07:08→19:14)
[2023-03-25] MEDS: REMEDY ESSENTIAL ZINC PASTE 113 GM TP SCH ×2 (09:04→20:14)
[2023-03-25] MEDS: POLYVINYL ALCOHOL OPHT DROPS 15 ML BOTTLE EACHEYE SCH ×4 (09:04→20:13)
[2023-03-25] MEDS: PHENOBARBITAL 32.4 MG TABLET GT SCH ×2 (09:04→20:14)
[2023-03-25] MEDS: BENZOYL PEROXIDE 10% GEL 60 GM TUBE TP SCH ×2 (09:04→20:14)
[2023-03-25] MEDS: BACLOFEN 20 MG TABLET GT SCH ×3 (09:04→20:14)
[2023-03-25] MEDS: LATANOPROST OPHT DROP 2.5 ML BOTTLE EACHEYE SCH (20:14)
[2023-03-25] MEDS: NUTRISOURCE FIBER 4 GM PACKET GT SCH (20:14)
[2023-03-25] MEDS: OMEGA-3 FATTY ACIDS/FISH OIL CAPSULE GT SCH (20:14)
[2023-03-26] VITALS (10 sets, daily range): TEMP 98; O2SAT 96–99
[2023-03-26] MEDS: ALBUTEROL SULFATE 2.5 MG/3 ML NEBU NEB SCH ×4 (01:18→19:30)
[2023-03-26] MEDS: IPRATROPIUM BROMIDE 0.5 MG/2.5 ML NEBU NEB SCH ×4 (01:18→19:30)
[2023-03-26] MEDS: VALPROIC ACID 250 MG/5 ML LIQUID UDC GT SCH ×3 (05:17→22:16)
[2023-03-26] MEDS: OMEPRAZOLE 20 MG CAPSULE.DR GT SCH (05:17)
[2023-03-26] MEDS: ACIDOPHILUS/BULGARICUS CHEW TAB GT SCH ×3 (05:17→22:16)
[2023-03-26] MEDS: DOXYCYCLINE HYCLATE 100 MG TABLET GT SCH (05:17)
[2023-03-26] MEDS: PHENOBARBITAL 32.4 MG TABLET GT SCH ×2 (08:17→20:38)
[2023-03-26] MEDS: POLYVINYL ALCOHOL OPHT DROPS 15 ML BOTTLE EACHEYE SCH ×4 (08:17→20:37)
[2023-03-26] MEDS: BACLOFEN 20 MG TABLET GT SCH ×3 (08:17→20:38)
[2023-03-26] MEDS: REMEDY ESSENTIAL ZINC PASTE 113 GM TP SCH ×2 (08:17→20:39)
[2023-03-26] MEDS: BENZOYL PEROXIDE 10% GEL 60 GM TUBE TP SCH ×2 (08:17→20:39)
[2023-03-26] MEDS: HYDROGEN PEROXIDE 3% 118 ML BOTTLE TP SCH ×2 (09:01→21:03)
[2023-03-26] MEDS: LATANOPROST OPHT DROP 2.5 ML BOTTLE EACHEYE SCH (20:37)
[2023-03-26] MEDS: OMEGA-3 FATTY ACIDS/FISH OIL CAPSULE GT SCH (20:37)
[2023-03-26] MEDS: NUTRISOURCE FIBER 4 GM PACKET GT SCH (20:38)
[2023-03-27] VITALS (11 sets, daily range): TEMP 98.2; O2SAT 98–99
[2023-03-27] MEDS: ALBUTEROL SULFATE 2.5 MG/3 ML NEBU NEB SCH ×4 (01:48→19:22)
[2023-03-27] MEDS: IPRATROPIUM BROMIDE 0.5 MG/2.5 ML NEBU NEB SCH ×4 (01:48→19:22)
[2023-03-27] MEDS: VALPROIC ACID 250 MG/5 ML LIQUID UDC GT SCH ×3 (05:11→21:55)
[2023-03-27] MEDS: OMEPRAZOLE 20 MG CAPSULE.DR GT SCH (05:11)
[2023-03-27] MEDS: ACIDOPHILUS/BULGARICUS CHEW TAB GT SCH ×3 (05:11→21:55)
[2023-03-27] MEDS: DOXYCYCLINE HYCLATE 100 MG TABLET GT SCH (05:11)
[2023-03-27] MEDS: BENZOYL PEROXIDE 10% GEL 60 GM TUBE TP SCH ×2 (08:16→21:55)
[2023-03-27] MEDS: REMEDY ESSENTIAL ZINC PASTE 113 GM TP SCH ×2 (08:16→21:55)
[2023-03-27] MEDS: PHENOBARBITAL 32.4 MG TABLET GT SCH ×2 (08:16→21:55)
[2023-03-27] MEDS: POLYVINYL ALCOHOL OPHT DROPS 15 ML BOTTLE EACHEYE SCH ×4 (08:16→21:54)
[2023-03-27] MEDS: BACLOFEN 20 MG TABLET GT SCH ×3 (08:16→21:54)
[2023-03-27] MEDS: HYDROGEN PEROXIDE 3% 118 ML BOTTLE TP SCH ×2 (08:21→21:54)
[2023-03-27] MEDS: JEVITY 1.2 1000 ML LIQUID GT PRN (10:30)
[2023-03-27] MEDS: OMEGA-3 FATTY ACIDS/FISH OIL CAPSULE GT SCH (21:54)
[2023-03-27] MEDS: LATANOPROST OPHT DROP 2.5 ML BOTTLE EACHEYE SCH (21:54)
[2023-03-27] MEDS: NUTRISOURCE FIBER 4 GM PACKET GT SCH (21:55)
[2023-03-28] VITALS (11 sets, daily range): TEMP 97.4–97.5; O2SAT 98–99
[2023-03-28] MEDS: ALBUTEROL SULFATE 2.5 MG/3 ML NEBU NEB SCH ×4 (00:49→19:35)
[2023-03-28] MEDS: IPRATROPIUM BROMIDE 0.5 MG/2.5 ML NEBU NEB SCH ×4 (00:49→19:35)
[2023-03-28] MEDS: JEVITY 1.2 1000 ML LIQUID GT PRN (02:40)
[2023-03-28] MEDS: VALPROIC ACID 250 MG/5 ML LIQUID UDC GT SCH ×3 (06:13→21:42)
[2023-03-28] MEDS: ACIDOPHILUS/BULGARICUS CHEW TAB GT SCH ×3 (06:13→21:42)
[2023-03-28] MEDS: DOXYCYCLINE HYCLATE 100 MG TABLET GT SCH (06:14)
[2023-03-28] MEDS: OMEPRAZOLE 20 MG CAPSULE.DR GT SCH (06:14)
[2023-03-28] MEDS: POLYVINYL ALCOHOL OPHT DROPS 15 ML BOTTLE EACHEYE SCH ×4 (08:39→21:41)
[2023-03-28] MEDS: BENZOYL PEROXIDE 10% GEL 60 GM TUBE TP SCH ×2 (08:40→21:41)
[2023-03-28] MEDS: BACLOFEN 20 MG TABLET GT SCH ×3 (08:43→21:41)
[2023-03-28] MEDS: PHENOBARBITAL 32.4 MG TABLET GT SCH ×2 (08:43→21:41)
[2023-03-28] MEDS: REMEDY ESSENTIAL ZINC PASTE 113 GM TP SCH ×2 (08:48→21:42)
[2023-03-28] MEDS: HYDROGEN PEROXIDE 3% 118 ML BOTTLE TP SCH ×2 (09:03→20:56)
[2023-03-28] MEDS: OMEGA-3 FATTY ACIDS/FISH OIL CAPSULE GT SCH (21:41)
[2023-03-28] MEDS: NUTRISOURCE FIBER 4 GM PACKET GT SCH (21:41)
[2023-03-28] MEDS: LATANOPROST OPHT DROP 2.5 ML BOTTLE EACHEYE SCH (21:41)
[2023-03-29] VITALS (10 sets, daily range): TEMP 97.1–97.4; O2SAT 98–99
[2023-03-29] MEDS: ALBUTEROL SULFATE 2.5 MG/3 ML NEBU NEB SCH ×4 (01:35→19:27)
[2023-03-29] MEDS: IPRATROPIUM BROMIDE 0.5 MG/2.5 ML NEBU NEB SCH ×4 (01:35→19:27)
[2023-03-29] MEDS: JEVITY 1.2 1000 ML LIQUID GT PRN (02:55)
[2023-03-29] MEDS: ACIDOPHILUS/BULGARICUS CHEW TAB GT SCH ×3 (05:38→21:44)
[2023-03-29] MEDS: OMEPRAZOLE 20 MG CAPSULE.DR GT SCH (05:38)
[2023-03-29] MEDS: DOXYCYCLINE HYCLATE 100 MG TABLET GT SCH (05:38)
[2023-03-29] MEDS: VALPROIC ACID 250 MG/5 ML LIQUID UDC GT SCH ×3 (05:38→21:44)
[2023-03-29] MEDS: POLYVINYL ALCOHOL OPHT DROPS 15 ML BOTTLE EACHEYE SCH ×4 (08:16→21:44)
[2023-03-29] MEDS: PHENOBARBITAL 32.4 MG TABLET GT SCH ×2 (08:16→21:44)
[2023-03-29] MEDS: BACLOFEN 20 MG TABLET GT SCH ×3 (08:16→21:44)
[2023-03-29] MEDS: BENZOYL PEROXIDE 10% GEL 60 GM TUBE TP SCH ×2 (08:16→21:44)
[2023-03-29] MEDS: REMEDY ESSENTIAL ZINC PASTE 113 GM TP SCH ×2 (08:17→21:44)
[2023-03-29] MEDS: HYDROGEN PEROXIDE 3% 118 ML BOTTLE TP SCH ×2 (09:24→20:54)
[2023-03-29] MEDS: LATANOPROST OPHT DROP 2.5 ML BOTTLE EACHEYE SCH (21:44)
[2023-03-29] MEDS: OMEGA-3 FATTY ACIDS/FISH OIL CAPSULE GT SCH (21:44)
[2023-03-29] MEDS: NUTRISOURCE FIBER 4 GM PACKET GT SCH (21:44)
[2023-03-30] VITALS (10 sets, daily range): TEMP 97.6–98; O2SAT 97–99
[2023-03-30] MEDS: ALBUTEROL SULFATE 2.5 MG/3 ML NEBU NEB SCH ×4 (01:26→19:40)
[2023-03-30] MEDS: IPRATROPIUM BROMIDE 0.5 MG/2.5 ML NEBU NEB SCH ×4 (01:26→19:40)
[2023-03-30] MEDS: JEVITY 1.2 1000 ML LIQUID GT PRN (03:16)
[2023-03-30] MEDS: VALPROIC ACID 250 MG/5 ML LIQUID UDC GT SCH ×3 (06:11→21:39)
[2023-03-30] MEDS: ACIDOPHILUS/BULGARICUS CHEW TAB GT SCH ×3 (06:11→21:39)
[2023-03-30] MEDS: DOXYCYCLINE HYCLATE 100 MG TABLET GT SCH (06:11)
[2023-03-30] MEDS: OMEPRAZOLE 20 MG CAPSULE.DR GT SCH (06:11)
[2023-03-30] MEDS: BACLOFEN 20 MG TABLET GT SCH ×3 (08:23→21:39)
[2023-03-30] MEDS: POLYVINYL ALCOHOL OPHT DROPS 15 ML BOTTLE EACHEYE SCH ×4 (08:25→21:38)
[2023-03-30] MEDS: PHENOBARBITAL 32.4 MG TABLET GT SCH ×2 (08:25→21:39)
[2023-03-30] MEDS: REMEDY ESSENTIAL ZINC PASTE 113 GM TP SCH ×2 (08:26→21:39)
[2023-03-30] MEDS: BENZOYL PEROXIDE 10% GEL 60 GM TUBE TP SCH ×2 (08:26→21:39)
[2023-03-30] MEDS: HYDROGEN PEROXIDE 3% 118 ML BOTTLE TP SCH ×2 (08:27→21:00)
[2023-03-30] MEDS: NUTRISOURCE FIBER 4 GM PACKET GT SCH (21:39)
[2023-03-30] MEDS: LATANOPROST OPHT DROP 2.5 ML BOTTLE EACHEYE SCH (21:39)
[2023-03-30] MEDS: OMEGA-3 FATTY ACIDS/FISH OIL CAPSULE GT SCH (21:39)
[2023-03-31] VITALS (10 sets, daily range): TEMP 97–98; O2SAT 96–99
[2023-03-31] MEDS: JEVITY 1.2 1000 ML LIQUID GT PRN ×2 (01:08→01:44)
[2023-03-31] MEDS: ALBUTEROL SULFATE 2.5 MG/3 ML NEBU NEB SCH ×4 (01:48→20:00)
[2023-03-31] MEDS: IPRATROPIUM BROMIDE 0.5 MG/2.5 ML NEBU NEB SCH ×4 (01:48→20:00)
[2023-03-31] MEDS: VALPROIC ACID 250 MG/5 ML LIQUID UDC GT SCH ×3 (06:25→22:40)
[2023-03-31] MEDS: OMEPRAZOLE 20 MG CAPSULE.DR GT SCH (06:25)
[2023-03-31] MEDS: ACIDOPHILUS/BULGARICUS CHEW TAB GT SCH ×3 (06:25→22:40)
[2023-03-31] MEDS: DOXYCYCLINE HYCLATE 100 MG TABLET GT SCH (06:25)
[2023-03-31] MEDS: POLYVINYL ALCOHOL OPHT DROPS 15 ML BOTTLE EACHEYE SCH ×4 (08:43→20:46)
[2023-03-31] MEDS: HYDROGEN PEROXIDE 3% 118 ML BOTTLE TP SCH ×2 (08:50→20:58)
[2023-03-31] MEDS: BACLOFEN 20 MG TABLET GT SCH ×3 (08:53→20:47)
[2023-03-31] MEDS: BENZOYL PEROXIDE 10% GEL 60 GM TUBE TP SCH ×2 (08:54→20:47)
[2023-03-31] MEDS: REMEDY ESSENTIAL ZINC PASTE 113 GM TP SCH ×2 (08:54→20:47)
[2023-03-31] MEDS: PHENOBARBITAL 32.4 MG TABLET GT SCH ×2 (08:54→20:47)
[2023-03-31] MEDS: LATANOPROST OPHT DROP 2.5 ML BOTTLE EACHEYE SCH (20:46)
[2023-03-31] MEDS: NUTRISOURCE FIBER 4 GM PACKET GT SCH (20:47)
[2023-03-31] MEDS: OMEGA-3 FATTY ACIDS/FISH OIL CAPSULE GT SCH (20:47)
[2023-04-01] VITALS (11 sets, daily range): BP systolic 118; BP diastolic 62; TEMP 97.5–97.7; O2SAT 95–99
[2023-04-01] MEDS: ALBUTEROL SULFATE 2.5 MG/3 ML NEBU NEB SCH ×4 (01:08→19:50)
[2023-04-01] MEDS: IPRATROPIUM BROMIDE 0.5 MG/2.5 ML NEBU NEB SCH ×4 (01:08→19:50)
[2023-04-01] MEDS: JEVITY 1.2 1000 ML LIQUID GT PRN ×2 (02:09→20:59)
[2023-04-01] MEDS: VALPROIC ACID 250 MG/5 ML LIQUID UDC GT SCH ×3 (06:15→21:01)
[2023-04-01] MEDS: DOXYCYCLINE HYCLATE 100 MG TABLET GT SCH (06:15)
[2023-04-01] MEDS: ACIDOPHILUS/BULGARICUS CHEW TAB GT SCH ×3 (06:15→21:01)
[2023-04-01] MEDS: OMEPRAZOLE 20 MG CAPSULE.DR GT SCH (06:15)
[2023-04-01] MEDS: HYDROGEN PEROXIDE 3% 118 ML BOTTLE TP SCH ×2 (07:25→20:43)
[2023-04-01] MEDS: POLYVINYL ALCOHOL OPHT DROPS 15 ML BOTTLE EACHEYE SCH ×4 (08:28→20:39)
[2023-04-01] MEDS: PHENOBARBITAL 32.4 MG TABLET GT SCH ×2 (08:28→20:39)
[2023-04-01] MEDS: BACLOFEN 20 MG TABLET GT SCH ×3 (08:28→20:39)
[2023-04-01] MEDS: BENZOYL PEROXIDE 10% GEL 60 GM TUBE TP SCH ×2 (08:29→20:39)
[2023-04-01] MEDS: REMEDY ESSENTIAL ZINC PASTE 113 GM TP SCH ×2 (08:29→20:39)
[2023-04-01] MEDS: LATANOPROST OPHT DROP 2.5 ML BOTTLE EACHEYE SCH (20:39)
[2023-04-01] MEDS: OMEGA-3 FATTY ACIDS/FISH OIL CAPSULE GT SCH (20:39)
[2023-04-01] MEDS: NUTRISOURCE FIBER 4 GM PACKET GT SCH (20:39)
[2023-04-02] VITALS (11 sets, daily range): TEMP 96.1–98; O2SAT 98–99
[2023-04-02] MEDS: ALBUTEROL SULFATE 2.5 MG/3 ML NEBU NEB SCH ×4 (01:23→19:16)
[2023-04-02] MEDS: IPRATROPIUM BROMIDE 0.5 MG/2.5 ML NEBU NEB SCH ×4 (01:23→19:16)
[2023-04-02] MEDS: ACIDOPHILUS/BULGARICUS CHEW TAB GT SCH ×2 (05:20→13:40)
[2023-04-02] MEDS: OMEPRAZOLE 20 MG CAPSULE.DR GT SCH (05:20)
[2023-04-02] MEDS: DOXYCYCLINE HYCLATE 100 MG TABLET GT SCH (05:20)
[2023-04-02] MEDS: VALPROIC ACID 250 MG/5 ML LIQUID UDC GT SCH ×2 (05:20→13:39)
[2023-04-02] MEDS: HYDROGEN PEROXIDE 3% 118 ML BOTTLE TP SCH ×2 (08:17→21:51)
[2023-04-02] MEDS: BENZOYL PEROXIDE 10% GEL 60 GM TUBE TP SCH (09:00)
[2023-04-02] MEDS: BACLOFEN 20 MG TABLET GT SCH ×2 (09:49→13:38)
[2023-04-02] MEDS: POLYVINYL ALCOHOL OPHT DROPS 15 ML BOTTLE EACHEYE SCH ×3 (09:49→17:24)
[2023-04-02] MEDS: PHENOBARBITAL 32.4 MG TABLET GT SCH (09:50)
[2023-04-02] MEDS: REMEDY ESSENTIAL ZINC PASTE 113 GM TP SCH (09:50)
[2023-04-02] MEDS: JEVITY 1.2 1000 ML LIQUID GT PRN (17:24)
[2023-04-03] VITALS (10 sets, daily range): TEMP 98.1–98.3; O2SAT 97–99
[2023-04-03] MEDS: POLYVINYL ALCOHOL OPHT DROPS 15 ML BOTTLE EACHEYE SCH ×5 (01:00→21:00)
[2023-04-03] MEDS: LATANOPROST OPHT DROP 2.5 ML BOTTLE EACHEYE SCH ×2 (01:02→21:00)
[2023-04-03] MEDS: OMEGA-3 FATTY ACIDS/FISH OIL CAPSULE GT SCH ×2 (01:03→21:00)
[2023-04-03] MEDS: NUTRISOURCE FIBER 4 GM PACKET GT SCH ×2 (01:04→21:00)
[2023-04-03] MEDS: VALPROIC ACID 250 MG/5 ML LIQUID UDC GT SCH ×4 (01:05→22:19)
[2023-04-03] MEDS: ACIDOPHILUS/BULGARICUS CHEW TAB GT SCH ×4 (01:06→22:07)
[2023-04-03] MEDS: BENZOYL PEROXIDE 10% GEL 60 GM TUBE TP SCH ×3 (01:07→21:00)
[2023-04-03] MEDS: REMEDY ESSENTIAL ZINC PASTE 113 GM TP SCH ×3 (01:08→21:00)
[2023-04-03] MEDS: BACLOFEN 20 MG TABLET GT SCH ×4 (01:16→21:00)
[2023-04-03] MEDS: PHENOBARBITAL 32.4 MG TABLET GT SCH ×3 (01:16→21:00)
[2023-04-03] MEDS: IPRATROPIUM BROMIDE 0.5 MG/2.5 ML NEBU NEB SCH ×4 (01:30→19:14)
[2023-04-03] MEDS: ALBUTEROL SULFATE 2.5 MG/3 ML NEBU NEB SCH ×4 (01:31→19:14)
[2023-04-03] MEDS: OMEPRAZOLE 20 MG CAPSULE.DR GT SCH (05:48)
[2023-04-03] MEDS: DOXYCYCLINE HYCLATE 100 MG TABLET GT SCH (05:50)
[2023-04-03 07:58] LABS: ALANINE AMINOTRANSFERASE 21 U/L (16-63); ALBUMIN 3.3 g/dL (3.4-5.0); ALKALINE PHOSPHATASE 138 U/L (50-136); ASPARTATE AMINOTRANSFERASE 21 U/L (15-37); BILIRUBIN,TOTAL 0.5 mg/dL (0.2-1.0); CARBON DIOXIDE 32 mmol/L (21-32); CHLORIDE 103 mmol/L (98-107); CREATININE 0.4 mg/dL (0.6-1.3); GLUCOSE 107 mg/dL (74-106); POTASSIUM 4.3 mmol/L (3.5-5.1); SODIUM SERUM 138 mmol/L (136-145); TOTAL PROTEIN, SERUM 7.6 g/dL (6.4-8.2); UREA NITROGEN, BLOOD 13 mg/dL (7-18)
[2023-04-03] MEDS: HYDROGEN PEROXIDE 3% 118 ML BOTTLE TP SCH ×2 (09:41→21:03)
[2023-04-03] MEDS: JEVITY 1.2 1000 ML LIQUID GT PRN (14:10)
[2023-04-04] VITALS (10 sets, daily range): TEMP 97.8–98; O2SAT 98–99
[2023-04-04] MEDS: ALBUTEROL SULFATE 2.5 MG/3 ML NEBU NEB SCH ×4 (01:35→20:17)
[2023-04-04] MEDS: IPRATROPIUM BROMIDE 0.5 MG/2.5 ML NEBU NEB SCH ×4 (01:35→20:16)
[2023-04-04] MEDS: VALPROIC ACID 250 MG/5 ML LIQUID UDC GT SCH ×3 (05:34→22:00)
[2023-04-04] MEDS: OMEPRAZOLE 20 MG CAPSULE.DR GT SCH (05:34)
[2023-04-04] MEDS: ACIDOPHILUS/BULGARICUS CHEW TAB GT SCH ×3 (05:34→22:56)
[2023-04-04] MEDS: DOXYCYCLINE HYCLATE 100 MG TABLET GT SCH (05:34)
[2023-04-04] MEDS: HYDROGEN PEROXIDE 3% 118 ML BOTTLE TP SCH ×2 (09:24→20:17)
[2023-04-04] MEDS: BACLOFEN 20 MG TABLET GT SCH ×3 (09:46→21:00)
[2023-04-04] MEDS: POLYVINYL ALCOHOL OPHT DROPS 15 ML BOTTLE EACHEYE SCH ×4 (09:46→21:00)
[2023-04-04] MEDS: PHENOBARBITAL 32.4 MG TABLET GT SCH ×2 (09:47→21:00)
[2023-04-04] MEDS: BENZOYL PEROXIDE 10% GEL 60 GM TUBE TP SCH ×2 (09:47→21:00)
[2023-04-04] MEDS: REMEDY ESSENTIAL ZINC PASTE 113 GM TP SCH ×2 (09:47→21:00)
[2023-04-04] MEDS: JEVITY 1.2 1000 ML LIQUID GT PRN (10:36)
[2023-04-04] MEDS: LATANOPROST OPHT DROP 2.5 ML BOTTLE EACHEYE SCH (21:00)
[2023-04-04] MEDS: OMEGA-3 FATTY ACIDS/FISH OIL CAPSULE GT SCH (21:00)
[2023-04-04] MEDS: NUTRISOURCE FIBER 4 GM PACKET GT SCH (21:00)
[2023-04-05] VITALS (9 sets, daily range): TEMP 97.6; O2SAT 96–99
[2023-04-05] MEDS: ALBUTEROL SULFATE 2.5 MG/3 ML NEBU NEB SCH ×4 (01:30→19:39)
[2023-04-05] MEDS: IPRATROPIUM BROMIDE 0.5 MG/2.5 ML NEBU NEB SCH ×4 (01:30→19:39)
[2023-04-05] MEDS: VALPROIC ACID 250 MG/5 ML LIQUID UDC GT SCH ×3 (06:18→22:40)
[2023-04-05] MEDS: ACIDOPHILUS/BULGARICUS CHEW TAB GT SCH ×3 (06:18→22:40)
[2023-04-05] MEDS: OMEPRAZOLE 20 MG CAPSULE.DR GT SCH (06:18)
[2023-04-05] MEDS: DOXYCYCLINE HYCLATE 100 MG TABLET GT SCH (06:18)
[2023-04-05] MEDS: REMEDY ESSENTIAL ZINC PASTE 113 GM TP SCH ×2 (08:05→21:00)
[2023-04-05] MEDS: POLYVINYL ALCOHOL OPHT DROPS 15 ML BOTTLE EACHEYE SCH ×4 (08:05→21:00)
[2023-04-05] MEDS: PHENOBARBITAL 32.4 MG TABLET GT SCH ×2 (08:05→21:00)
[2023-04-05] MEDS: BENZOYL PEROXIDE 10% GEL 60 GM TUBE TP SCH ×2 (08:05→21:00)
[2023-04-05] MEDS: BACLOFEN 20 MG TABLET GT SCH ×3 (08:05→21:00)
[2023-04-05] MEDS: HYDROGEN PEROXIDE 3% 118 ML BOTTLE TP SCH ×2 (09:00→21:05)
[2023-04-05] MEDS ORDERED: DIATR MEGLU/DIATRIZOATE SODIUM 30 ML BOTTLE ONE (11:20)
[2023-04-05] MEDS: OMEGA-3 FATTY ACIDS/FISH OIL CAPSULE GT SCH (21:00)
[2023-04-05] MEDS: LATANOPROST OPHT DROP 2.5 ML BOTTLE EACHEYE SCH (21:00)
[2023-04-05] MEDS: NUTRISOURCE FIBER 4 GM PACKET GT SCH (21:00)
[2023-04-06] VITALS (9 sets, daily range): TEMP 97.1–98.1; O2SAT 98–99
[2023-04-06] MEDS: ALBUTEROL SULFATE 2.5 MG/3 ML NEBU NEB SCH ×4 (01:24→19:23)
[2023-04-06] MEDS: IPRATROPIUM BROMIDE 0.5 MG/2.5 ML NEBU NEB SCH ×4 (01:24→19:23)
[2023-04-06] MEDS: DOXYCYCLINE HYCLATE 100 MG TABLET GT SCH (06:27)
[2023-04-06] MEDS: OMEPRAZOLE 20 MG CAPSULE.DR GT SCH (06:27)
[2023-04-06] MEDS: ACIDOPHILUS/BULGARICUS CHEW TAB GT SCH ×3 (06:27→21:47)
[2023-04-06] MEDS: VALPROIC ACID 250 MG/5 ML LIQUID UDC GT SCH ×3 (06:27→21:47)
[2023-04-06] MEDS: POLYVINYL ALCOHOL OPHT DROPS 15 ML BOTTLE EACHEYE SCH ×4 (08:06→21:46)
[2023-04-06] MEDS: BACLOFEN 20 MG TABLET GT SCH ×3 (08:13→21:00)
[2023-04-06] MEDS: BENZOYL PEROXIDE 10% GEL 60 GM TUBE TP SCH ×2 (08:15→21:47)
[2023-04-06] MEDS: PHENOBARBITAL 32.4 MG TABLET GT SCH ×2 (08:15→21:48)
[2023-04-06] MEDS: REMEDY ESSENTIAL ZINC PASTE 113 GM TP SCH ×2 (08:15→21:47)
[2023-04-06] MEDS: HYDROGEN PEROXIDE 3% 118 ML BOTTLE TP SCH ×2 (09:00→19:23)
[2023-04-06] MEDS: OMEGA-3 FATTY ACIDS/FISH OIL CAPSULE GT SCH (21:46)
[2023-04-06] MEDS: NUTRISOURCE FIBER 4 GM PACKET GT SCH (21:46)
[2023-04-06] MEDS: LATANOPROST OPHT DROP 2.5 ML BOTTLE EACHEYE SCH (21:46)
[2023-04-07] VITALS (10 sets, daily range): TEMP 97.4; O2SAT 99
[2023-04-07] MEDS: IPRATROPIUM BROMIDE 0.5 MG/2.5 ML NEBU NEB SCH ×4 (01:12→19:28)
[2023-04-07] MEDS: ALBUTEROL SULFATE 2.5 MG/3 ML NEBU NEB SCH ×4 (01:12→19:28)
[2023-04-07] MEDS: DOXYCYCLINE HYCLATE 100 MG TABLET GT SCH (05:41)
[2023-04-07] MEDS: VALPROIC ACID 250 MG/5 ML LIQUID UDC GT SCH ×3 (05:41→22:12)
[2023-04-07] MEDS: OMEPRAZOLE 20 MG CAPSULE.DR GT SCH (05:41)
[2023-04-07] MEDS: ACIDOPHILUS/BULGARICUS CHEW TAB GT SCH ×3 (05:41→22:12)
[2023-04-07] MEDS: BENZOYL PEROXIDE 10% GEL 60 GM TUBE TP SCH ×2 (09:00→21:00)
[2023-04-07] MEDS: BACLOFEN 20 MG TABLET GT SCH ×3 (09:00→21:00)
[2023-04-07] MEDS: REMEDY ESSENTIAL ZINC PASTE 113 GM TP SCH ×2 (09:00→21:00)
[2023-04-07] MEDS: POLYVINYL ALCOHOL OPHT DROPS 15 ML BOTTLE EACHEYE SCH ×4 (09:00→21:00)
[2023-04-07] MEDS: PHENOBARBITAL 32.4 MG TABLET GT SCH ×2 (09:20→21:00)
[2023-04-07] MEDS: HYDROGEN PEROXIDE 3% 118 ML BOTTLE TP SCH ×2 (09:33→21:10)
[2023-04-07] MEDS: LATANOPROST OPHT DROP 2.5 ML BOTTLE EACHEYE SCH (21:00)
[2023-04-07] MEDS: NUTRISOURCE FIBER 4 GM PACKET GT SCH (21:00)
[2023-04-07] MEDS: OMEGA-3 FATTY ACIDS/FISH OIL CAPSULE GT SCH (21:00)
[2023-04-08] VITALS (10 sets, daily range): BP systolic 111; BP diastolic 76; TEMP 97.2–98; O2SAT 96–99
[2023-04-08] MEDS: IPRATROPIUM BROMIDE 0.5 MG/2.5 ML NEBU NEB SCH ×4 (01:21→19:24)
[2023-04-08] MEDS: ALBUTEROL SULFATE 2.5 MG/3 ML NEBU NEB SCH ×4 (01:21→19:24)
[2023-04-08] MEDS: OMEPRAZOLE 20 MG CAPSULE.DR GT SCH (05:59)
[2023-04-08] MEDS: DOXYCYCLINE HYCLATE 100 MG TABLET GT SCH (05:59)
[2023-04-08] MEDS: VALPROIC ACID 250 MG/5 ML LIQUID UDC GT SCH ×3 (05:59→21:57)
[2023-04-08] MEDS: ACIDOPHILUS/BULGARICUS CHEW TAB GT SCH ×3 (05:59→21:57)
[2023-04-08] MEDS: POLYVINYL ALCOHOL OPHT DROPS 15 ML BOTTLE EACHEYE SCH ×4 (08:23→21:57)
[2023-04-08] MEDS: PHENOBARBITAL 32.4 MG TABLET GT SCH ×2 (08:23→21:57)
[2023-04-08] MEDS: BACLOFEN 20 MG TABLET GT SCH ×3 (08:23→21:57)
[2023-04-08] MEDS: BENZOYL PEROXIDE 10% GEL 60 GM TUBE TP SCH ×2 (08:24→21:57)
[2023-04-08] MEDS: REMEDY ESSENTIAL ZINC PASTE 113 GM TP SCH ×2 (08:24→21:57)
[2023-04-08] MEDS: HYDROGEN PEROXIDE 3% 118 ML BOTTLE TP SCH ×2 (09:00→19:24)
[2023-04-08] MEDS: JEVITY 1.2 1000 ML LIQUID GT PRN (16:11)
[2023-04-08] MEDS: LATANOPROST OPHT DROP 2.5 ML BOTTLE EACHEYE SCH (21:57)
[2023-04-08] MEDS: OMEGA-3 FATTY ACIDS/FISH OIL CAPSULE GT SCH (21:57)
[2023-04-08] MEDS: NUTRISOURCE FIBER 4 GM PACKET GT SCH (21:57)
[2023-04-09] VITALS (11 sets, daily range): TEMP 97.8–98; O2SAT 98–99
[2023-04-09] MEDS: IPRATROPIUM BROMIDE 0.5 MG/2.5 ML NEBU NEB SCH ×4 (00:39→19:10)
[2023-04-09] MEDS: ALBUTEROL SULFATE 2.5 MG/3 ML NEBU NEB SCH ×4 (00:39→19:10)
[2023-04-09] MEDS: OMEPRAZOLE 20 MG CAPSULE.DR GT SCH (05:49)
[2023-04-09] MEDS: VALPROIC ACID 250 MG/5 ML LIQUID UDC GT SCH ×3 (05:49→21:18)
[2023-04-09] MEDS: ACIDOPHILUS/BULGARICUS CHEW TAB GT SCH ×3 (05:49→21:18)
[2023-04-09] MEDS: DOXYCYCLINE HYCLATE 100 MG TABLET GT SCH (05:49)
[2023-04-09] MEDS: BENZOYL PEROXIDE 10% GEL 60 GM TUBE TP SCH ×2 (08:39→21:18)
[2023-04-09] MEDS: PHENOBARBITAL 32.4 MG TABLET GT SCH ×2 (08:39→21:18)
[2023-04-09] MEDS: BACLOFEN 20 MG TABLET GT SCH ×3 (08:39→21:18)
[2023-04-09] MEDS: POLYVINYL ALCOHOL OPHT DROPS 15 ML BOTTLE EACHEYE SCH ×4 (08:39→21:18)
[2023-04-09] MEDS: JEVITY 1.2 1000 ML LIQUID GT PRN (08:40)
[2023-04-09] MEDS: REMEDY ESSENTIAL ZINC PASTE 113 GM TP SCH ×2 (08:40→21:18)
[2023-04-09] MEDS: HYDROGEN PEROXIDE 3% 118 ML BOTTLE TP SCH ×2 (09:42→19:10)
[2023-04-09] MEDS: NUTRISOURCE FIBER 4 GM PACKET GT SCH (21:18)
[2023-04-09] MEDS: OMEGA-3 FATTY ACIDS/FISH OIL CAPSULE GT SCH (21:18)
[2023-04-09] MEDS: LATANOPROST OPHT DROP 2.5 ML BOTTLE EACHEYE SCH (21:18)
[2023-04-10] VITALS (9 sets, daily range): TEMP 98–98.2; O2SAT 96–99
[2023-04-10] MEDS: ALBUTEROL SULFATE 2.5 MG/3 ML NEBU NEB SCH ×4 (01:12→19:40)
[2023-04-10] MEDS: IPRATROPIUM BROMIDE 0.5 MG/2.5 ML NEBU NEB SCH ×4 (01:12→19:40)
[2023-04-10] MEDS: JEVITY 1.2 1000 ML LIQUID GT PRN (04:13)
[2023-04-10] MEDS: ACIDOPHILUS/BULGARICUS CHEW TAB GT SCH ×3 (05:23→22:25)
[2023-04-10] MEDS: DOXYCYCLINE HYCLATE 100 MG TABLET GT SCH (05:23)
[2023-04-10] MEDS: OMEPRAZOLE 20 MG CAPSULE.DR GT SCH (05:23)
[2023-04-10] MEDS: VALPROIC ACID 250 MG/5 ML LIQUID UDC GT SCH ×3 (05:23→22:25)
[2023-04-10] MEDS: HYDROGEN PEROXIDE 3% 118 ML BOTTLE TP SCH ×2 (07:19→20:42)
[2023-04-10] MEDS: PHENOBARBITAL 32.4 MG TABLET GT SCH ×2 (09:09→21:00)
[2023-04-10] MEDS: BENZOYL PEROXIDE 10% GEL 60 GM TUBE TP SCH ×2 (09:09→21:00)
[2023-04-10] MEDS: BACLOFEN 20 MG TABLET GT SCH ×3 (09:09→21:00)
[2023-04-10] MEDS: REMEDY ESSENTIAL ZINC PASTE 113 GM TP SCH ×2 (09:09→21:00)
[2023-04-10] MEDS: POLYVINYL ALCOHOL OPHT DROPS 15 ML BOTTLE EACHEYE SCH ×4 (09:09→21:00)
[2023-04-10] MEDS: LATANOPROST OPHT DROP 2.5 ML BOTTLE EACHEYE SCH (21:00)
[2023-04-10] MEDS: NUTRISOURCE FIBER 4 GM PACKET GT SCH (21:00)
[2023-04-10] MEDS: OMEGA-3 FATTY ACIDS/FISH OIL CAPSULE GT SCH (21:00)
[2023-04-11] VITALS (9 sets, daily range): TEMP 97.5–98.1; O2SAT 97–99
[2023-04-11] MEDS: JEVITY 1.2 1000 ML LIQUID GT PRN ×2 (01:00→23:20)
[2023-04-11] MEDS: ALBUTEROL SULFATE 2.5 MG/3 ML NEBU NEB SCH ×4 (01:16→19:15)
[2023-04-11] MEDS: IPRATROPIUM BROMIDE 0.5 MG/2.5 ML NEBU NEB SCH ×4 (01:16→19:15)
[2023-04-11] MEDS: DOXYCYCLINE HYCLATE 100 MG TABLET GT SCH (05:58)
[2023-04-11] MEDS: VALPROIC ACID 250 MG/5 ML LIQUID UDC GT SCH ×3 (05:58→22:00)
[2023-04-11] MEDS: OMEPRAZOLE 20 MG CAPSULE.DR GT SCH (05:58)
[2023-04-11] MEDS: ACIDOPHILUS/BULGARICUS CHEW TAB GT SCH ×3 (05:58→22:00)
[2023-04-11] MEDS: POLYVINYL ALCOHOL OPHT DROPS 15 ML BOTTLE EACHEYE SCH ×4 (09:00→21:59)
[2023-04-11] MEDS: REMEDY ESSENTIAL ZINC PASTE 113 GM TP SCH ×2 (09:00→21:59)
[2023-04-11] MEDS: PHENOBARBITAL 32.4 MG TABLET GT SCH ×2 (09:00→21:59)
[2023-04-11] MEDS: BENZOYL PEROXIDE 10% GEL 60 GM TUBE TP SCH ×2 (09:00→21:59)
[2023-04-11] MEDS: BACLOFEN 20 MG TABLET GT SCH ×3 (09:00→21:59)
[2023-04-11] MEDS: HYDROGEN PEROXIDE 3% 118 ML BOTTLE TP SCH ×2 (09:51→19:15)
[2023-04-11] MEDS: NUTRISOURCE FIBER 4 GM PACKET GT SCH (21:59)
[2023-04-11] MEDS: OMEGA-3 FATTY ACIDS/FISH OIL CAPSULE GT SCH (21:59)
[2023-04-11] MEDS: LATANOPROST OPHT DROP 2.5 ML BOTTLE EACHEYE SCH (21:59)
[2023-04-12] VITALS (9 sets, daily range): TEMP 97.5–98.6; O2SAT 94–99
[2023-04-12] MEDS: IPRATROPIUM BROMIDE 0.5 MG/2.5 ML NEBU NEB SCH ×4 (01:18→19:01)
[2023-04-12] MEDS: ALBUTEROL SULFATE 2.5 MG/3 ML NEBU NEB SCH ×4 (01:18→19:01)
[2023-04-12] MEDS: DOXYCYCLINE HYCLATE 100 MG TABLET GT SCH (05:54)
[2023-04-12] MEDS: OMEPRAZOLE 20 MG CAPSULE.DR GT SCH (05:54)
[2023-04-12] MEDS: VALPROIC ACID 250 MG/5 ML LIQUID UDC GT SCH ×3 (05:54→21:06)
[2023-04-12] MEDS: ACIDOPHILUS/BULGARICUS CHEW TAB GT SCH ×3 (05:54→21:06)
[2023-04-12] MEDS: REMEDY ESSENTIAL ZINC PASTE 113 GM TP SCH ×2 (09:14→20:13)
[2023-04-12] MEDS: BACLOFEN 20 MG TABLET GT SCH ×3 (09:14→20:13)
[2023-04-12] MEDS: PHENOBARBITAL 32.4 MG TABLET GT SCH ×2 (09:14→20:13)
[2023-04-12] MEDS: BENZOYL PEROXIDE 10% GEL 60 GM TUBE TP SCH ×2 (09:14→20:13)
[2023-04-12] MEDS: POLYVINYL ALCOHOL OPHT DROPS 15 ML BOTTLE EACHEYE SCH ×4 (09:14→20:12)
[2023-04-12] MEDS: HYDROGEN PEROXIDE 3% 118 ML BOTTLE TP SCH ×2 (09:43→21:57)
[2023-04-12] MEDS: JEVITY 1.2 1000 ML LIQUID GT PRN (17:40)
[2023-04-12] MEDS: LATANOPROST OPHT DROP 2.5 ML BOTTLE EACHEYE SCH (20:12)
[2023-04-12] MEDS: OMEGA-3 FATTY ACIDS/FISH OIL CAPSULE GT SCH (20:12)
[2023-04-12] MEDS: NUTRISOURCE FIBER 4 GM PACKET GT SCH (20:13)
[2023-04-13] VITALS (10 sets, daily range): TEMP 97.6–98; O2SAT 94–99
[2023-04-13] MEDS: IPRATROPIUM BROMIDE 0.5 MG/2.5 ML NEBU NEB SCH ×4 (01:12→19:09)
[2023-04-13] MEDS: ALBUTEROL SULFATE 2.5 MG/3 ML NEBU NEB SCH ×4 (01:13→19:10)
[2023-04-13] MEDS: DOXYCYCLINE HYCLATE 100 MG TABLET GT SCH (05:23)
[2023-04-13] MEDS: ACIDOPHILUS/BULGARICUS CHEW TAB GT SCH ×3 (05:23→22:38)
[2023-04-13] MEDS: VALPROIC ACID 250 MG/5 ML LIQUID UDC GT SCH ×3 (05:23→22:50)
[2023-04-13] MEDS: OMEPRAZOLE 20 MG CAPSULE.DR GT SCH (05:23)
[2023-04-13] MEDS: POLYVINYL ALCOHOL OPHT DROPS 15 ML BOTTLE EACHEYE SCH ×4 (08:39→21:00)
[2023-04-13] MEDS: BENZOYL PEROXIDE 10% GEL 60 GM TUBE TP SCH ×2 (08:41→21:00)
[2023-04-13] MEDS: BACLOFEN 20 MG TABLET GT SCH ×3 (08:41→21:00)
[2023-04-13] MEDS: REMEDY ESSENTIAL ZINC PASTE 113 GM TP SCH ×2 (08:41→21:00)
[2023-04-13] MEDS: PHENOBARBITAL 32.4 MG TABLET GT SCH ×2 (08:41→21:00)
[2023-04-13] MEDS: HYDROGEN PEROXIDE 3% 118 ML BOTTLE TP SCH ×2 (09:00→19:10)
[2023-04-13] MEDS: JEVITY 1.2 1000 ML LIQUID GT PRN (14:48)
[2023-04-13] MEDS: LATANOPROST OPHT DROP 2.5 ML BOTTLE EACHEYE SCH (21:00)
[2023-04-13] MEDS: OMEGA-3 FATTY ACIDS/FISH OIL CAPSULE GT SCH (21:00)
[2023-04-13] MEDS: NUTRISOURCE FIBER 4 GM PACKET GT SCH (21:00)
[2023-04-14] VITALS (10 sets, daily range): TEMP 98.1–98.4; O2SAT 96–99
[2023-04-14] MEDS: ALBUTEROL SULFATE 2.5 MG/3 ML NEBU NEB SCH ×4 (01:55→21:12)
[2023-04-14] MEDS: IPRATROPIUM BROMIDE 0.5 MG/2.5 ML NEBU NEB SCH ×4 (01:55→21:10)
[2023-04-14] MEDS: VALPROIC ACID 250 MG/5 ML LIQUID UDC GT SCH ×3 (06:33→21:25)
[2023-04-14] MEDS: ACIDOPHILUS/BULGARICUS CHEW TAB GT SCH ×3 (06:33→21:25)
[2023-04-14] MEDS: DOXYCYCLINE HYCLATE 100 MG TABLET GT SCH (06:34)
[2023-04-14] MEDS: OMEPRAZOLE 20 MG CAPSULE.DR GT SCH (06:37)
[2023-04-14] MEDS: HYDROGEN PEROXIDE 3% 118 ML BOTTLE TP SCH ×2 (07:31→21:00)
[2023-04-14] MEDS: BACLOFEN 20 MG TABLET GT SCH ×3 (09:56→21:25)
[2023-04-14] MEDS: POLYVINYL ALCOHOL OPHT DROPS 15 ML BOTTLE EACHEYE SCH ×4 (09:56→21:25)
[2023-04-14] MEDS: PHENOBARBITAL 32.4 MG TABLET GT SCH ×2 (09:56→21:25)
[2023-04-14] MEDS: REMEDY ESSENTIAL ZINC PASTE 113 GM TP SCH ×2 (09:57→21:25)
[2023-04-14] MEDS: BENZOYL PEROXIDE 10% GEL 60 GM TUBE TP SCH ×2 (09:57→21:25)
[2023-04-14] MEDS: JEVITY 1.2 1000 ML LIQUID GT PRN (11:13)
[2023-04-14] MEDS: LATANOPROST OPHT DROP 2.5 ML BOTTLE EACHEYE SCH (21:25)
[2023-04-14] MEDS: OMEGA-3 FATTY ACIDS/FISH OIL CAPSULE GT SCH (21:25)
[2023-04-14] MEDS: NUTRISOURCE FIBER 4 GM PACKET GT SCH (21:25)
[2023-04-15] VITALS (10 sets, daily range): TEMP 96.2–98.2; O2SAT 97–99
[2023-04-15] MEDS: ALBUTEROL SULFATE 2.5 MG/3 ML NEBU NEB SCH ×4 (01:28→19:15)
[2023-04-15] MEDS: IPRATROPIUM BROMIDE 0.5 MG/2.5 ML NEBU NEB SCH ×4 (01:28→19:15)
[2023-04-15] MEDS: OMEPRAZOLE 20 MG CAPSULE.DR GT SCH (06:25)
[2023-04-15] MEDS: ACIDOPHILUS/BULGARICUS CHEW TAB GT SCH ×3 (06:25→21:36)
[2023-04-15] MEDS: DOXYCYCLINE HYCLATE 100 MG TABLET GT SCH (06:25)
[2023-04-15] MEDS: VALPROIC ACID 250 MG/5 ML LIQUID UDC GT SCH ×3 (06:25→21:36)
[2023-04-15] MEDS: REMEDY ESSENTIAL ZINC PASTE 113 GM TP SCH ×2 (08:48→20:14)
[2023-04-15] MEDS: POLYVINYL ALCOHOL OPHT DROPS 15 ML BOTTLE EACHEYE SCH ×4 (08:48→20:14)
[2023-04-15] MEDS: BACLOFEN 20 MG TABLET GT SCH ×3 (08:48→20:14)
[2023-04-15] MEDS: PHENOBARBITAL 32.4 MG TABLET GT SCH ×2 (08:48→20:14)
[2023-04-15] MEDS: BENZOYL PEROXIDE 10% GEL 60 GM TUBE TP SCH ×2 (08:48→20:14)
[2023-04-15] MEDS: HYDROGEN PEROXIDE 3% 118 ML BOTTLE TP SCH ×2 (09:00→20:45)
[2023-04-15] MEDS: LATANOPROST OPHT DROP 2.5 ML BOTTLE EACHEYE SCH (20:14)
[2023-04-15] MEDS: NUTRISOURCE FIBER 4 GM PACKET GT SCH (20:14)
[2023-04-15] MEDS: OMEGA-3 FATTY ACIDS/FISH OIL CAPSULE GT SCH (20:14)
[2023-04-16] VITALS (11 sets, daily range): BP systolic 112; BP diastolic 63; TEMP 98–98.1; O2SAT 97–99
[2023-04-16] MEDS: IPRATROPIUM BROMIDE 0.5 MG/2.5 ML NEBU NEB SCH ×4 (00:50→19:40)
[2023-04-16] MEDS: ALBUTEROL SULFATE 2.5 MG/3 ML NEBU NEB SCH ×4 (00:50→19:40)
[2023-04-16] MEDS: JEVITY 1.2 1000 ML LIQUID GT PRN ×2 (01:11→21:26)
[2023-04-16] MEDS: VALPROIC ACID 250 MG/5 ML LIQUID UDC GT SCH ×3 (05:39→21:26)
[2023-04-16] MEDS: ACIDOPHILUS/BULGARICUS CHEW TAB GT SCH ×3 (05:39→21:26)
[2023-04-16] MEDS: DOXYCYCLINE HYCLATE 100 MG TABLET GT SCH (05:39)
[2023-04-16] MEDS: OMEPRAZOLE 20 MG CAPSULE.DR GT SCH (05:39)
[2023-04-16] MEDS: HYDROGEN PEROXIDE 3% 118 ML BOTTLE TP SCH ×2 (08:52→21:12)
[2023-04-16] MEDS: POLYVINYL ALCOHOL OPHT DROPS 15 ML BOTTLE EACHEYE SCH ×4 (09:24→20:15)
[2023-04-16] MEDS: BACLOFEN 20 MG TABLET GT SCH ×3 (09:24→20:15)
[2023-04-16] MEDS: PHENOBARBITAL 32.4 MG TABLET GT SCH ×2 (09:27→20:15)
[2023-04-16] MEDS: REMEDY ESSENTIAL ZINC PASTE 113 GM TP SCH ×2 (09:28→20:15)
[2023-04-16] MEDS: BENZOYL PEROXIDE 10% GEL 60 GM TUBE TP SCH ×2 (09:28→20:15)
[2023-04-16] MEDS: NUTRISOURCE FIBER 4 GM PACKET GT SCH (20:15)
[2023-04-16] MEDS: OMEGA-3 FATTY ACIDS/FISH OIL CAPSULE GT SCH (20:15)
[2023-04-16] MEDS: LATANOPROST OPHT DROP 2.5 ML BOTTLE EACHEYE SCH (20:15)
[2023-04-17] VITALS (10 sets, daily range): TEMP 97.7–98.1; O2SAT 96–99
[2023-04-17] MEDS: IPRATROPIUM BROMIDE 0.5 MG/2.5 ML NEBU NEB SCH ×4 (01:07→19:40)
[2023-04-17] MEDS: ALBUTEROL SULFATE 2.5 MG/3 ML NEBU NEB SCH ×4 (01:07→19:40)
[2023-04-17] MEDS: ACIDOPHILUS/BULGARICUS CHEW TAB GT SCH ×3 (05:17→21:38)
[2023-04-17] MEDS: OMEPRAZOLE 20 MG CAPSULE.DR GT SCH (05:17)
[2023-04-17] MEDS: VALPROIC ACID 250 MG/5 ML LIQUID UDC GT SCH ×3 (05:17→21:38)
[2023-04-17] MEDS: DOXYCYCLINE HYCLATE 100 MG TABLET GT SCH (05:17)
[2023-04-17] MEDS: HYDROGEN PEROXIDE 3% 118 ML BOTTLE TP SCH ×2 (07:36→21:00)
[2023-04-17] MEDS: POLYVINYL ALCOHOL OPHT DROPS 15 ML BOTTLE EACHEYE SCH ×4 (09:00→21:38)
[2023-04-17] MEDS: PHENOBARBITAL 32.4 MG TABLET GT SCH ×2 (09:00→21:38)
[2023-04-17] MEDS: REMEDY ESSENTIAL ZINC PASTE 113 GM TP SCH ×2 (09:00→21:38)
[2023-04-17] MEDS: BACLOFEN 20 MG TABLET GT SCH ×4 (09:00→21:38)
[2023-04-17] MEDS: BENZOYL PEROXIDE 10% GEL 60 GM TUBE TP SCH ×2 (09:00→21:38)
[2023-04-17] MEDS ORDERED: COVID-19 VACC, SPIKEVAX (PHA) 50 MCG/0.5 ML VIAL IM ONE (14:00)
[2023-04-17] MEDS: NUTRISOURCE FIBER 4 GM PACKET GT SCH (21:38)
[2023-04-17] MEDS: LATANOPROST OPHT DROP 2.5 ML BOTTLE EACHEYE SCH (21:38)
[2023-04-17] MEDS: OMEGA-3 FATTY ACIDS/FISH OIL CAPSULE GT SCH (21:38)
[2023-04-18] VITALS (15 sets, daily range): TEMP 97.8–100.2; O2SAT 96–99
[2023-04-18] MEDS: IPRATROPIUM BROMIDE 0.5 MG/2.5 ML NEBU NEB SCH ×4 (01:53→19:29)
[2023-04-18] MEDS: ALBUTEROL SULFATE 2.5 MG/3 ML NEBU NEB SCH ×4 (01:54→19:29)
[2023-04-18] MEDS: VALPROIC ACID 250 MG/5 ML LIQUID UDC GT SCH ×3 (05:31→21:37)
[2023-04-18] MEDS: DOXYCYCLINE HYCLATE 100 MG TABLET GT SCH (05:31)
[2023-04-18] MEDS: OMEPRAZOLE 20 MG CAPSULE.DR GT SCH (05:31)
[2023-04-18] MEDS: ACIDOPHILUS/BULGARICUS CHEW TAB GT SCH ×3 (05:31→21:37)
[2023-04-18] MEDS: PHENOBARBITAL 32.4 MG TABLET GT SCH ×2 (08:17→21:37)
[2023-04-18] MEDS: BENZOYL PEROXIDE 10% GEL 60 GM TUBE TP SCH ×2 (08:17→21:37)
[2023-04-18] MEDS: REMEDY ESSENTIAL ZINC PASTE 113 GM TP SCH ×2 (08:17→21:37)
[2023-04-18] MEDS: POLYVINYL ALCOHOL OPHT DROPS 15 ML BOTTLE EACHEYE SCH ×4 (08:17→21:37)
[2023-04-18] MEDS: BACLOFEN 20 MG TABLET GT SCH ×3 (08:17→21:37)
[2023-04-18] MEDS: HYDROGEN PEROXIDE 3% 118 ML BOTTLE TP SCH ×2 (08:28→20:47)
[2023-04-18] MEDS: JEVITY 1.2 1000 ML LIQUID GT PRN (18:13)
[2023-04-18] MEDS: OMEGA-3 FATTY ACIDS/FISH OIL CAPSULE GT SCH (21:37)
[2023-04-18] MEDS: LATANOPROST OPHT DROP 2.5 ML BOTTLE EACHEYE SCH (21:37)
[2023-04-18] MEDS: NUTRISOURCE FIBER 4 GM PACKET GT SCH (21:37)
[2023-04-18] MEDS: ACETAMINOPHEN 650 MG/20 ML UDC- SA PATIENTS-PAIN ONLY GT PRN (22:07)
[2023-04-19] VITALS (14 sets, daily range): TEMP 97–98.5; O2SAT 96–99
[2023-04-19] MEDS: ALBUTEROL SULFATE 2.5 MG/3 ML NEBU NEB SCH ×4 (02:09→19:30)
[2023-04-19] MEDS: IPRATROPIUM BROMIDE 0.5 MG/2.5 ML NEBU NEB SCH ×4 (02:09→19:30)
[2023-04-19] MEDS: ACIDOPHILUS/BULGARICUS CHEW TAB GT SCH ×3 (05:34→21:44)
[2023-04-19] MEDS: OMEPRAZOLE 20 MG CAPSULE.DR GT SCH (05:34)
[2023-04-19] MEDS: VALPROIC ACID 250 MG/5 ML LIQUID UDC GT SCH ×3 (05:34→21:44)
[2023-04-19] MEDS: DOXYCYCLINE HYCLATE 100 MG TABLET GT SCH (05:34)
[2023-04-19] MEDS: REMEDY ESSENTIAL ZINC PASTE 113 GM TP SCH ×2 (08:13→21:44)
[2023-04-19] MEDS: BENZOYL PEROXIDE 10% GEL 60 GM TUBE TP SCH ×2 (08:13→21:44)
[2023-04-19] MEDS: POLYVINYL ALCOHOL OPHT DROPS 15 ML BOTTLE EACHEYE SCH ×4 (08:13→21:43)
[2023-04-19] MEDS: PHENOBARBITAL 32.4 MG TABLET GT SCH ×2 (08:13→21:44)
[2023-04-19] MEDS: BACLOFEN 20 MG TABLET GT SCH ×3 (08:13→21:44)
[2023-04-19] MEDS: HYDROGEN PEROXIDE 3% 118 ML BOTTLE TP SCH ×2 (09:00→19:30)
[2023-04-19] MEDS: LATANOPROST OPHT DROP 2.5 ML BOTTLE EACHEYE SCH (21:43)
[2023-04-19] MEDS: NUTRISOURCE FIBER 4 GM PACKET GT SCH (21:44)
[2023-04-19] MEDS: OMEGA-3 FATTY ACIDS/FISH OIL CAPSULE GT SCH (21:44)
[2023-04-20] VITALS (13 sets, daily range): TEMP 97.4–98; O2SAT 97–99
[2023-04-20] MEDS: IPRATROPIUM BROMIDE 0.5 MG/2.5 ML NEBU NEB SCH ×4 (01:26→20:00)
[2023-04-20] MEDS: ALBUTEROL SULFATE 2.5 MG/3 ML NEBU NEB SCH ×4 (01:26→20:00)
[2023-04-20] MEDS: VALPROIC ACID 250 MG/5 ML LIQUID UDC GT SCH ×3 (06:13→22:20)
[2023-04-20] MEDS: DOXYCYCLINE HYCLATE 100 MG TABLET GT SCH (06:13)
[2023-04-20] MEDS: ACIDOPHILUS/BULGARICUS CHEW TAB GT SCH ×3 (06:13→22:19)
[2023-04-20] MEDS: OMEPRAZOLE 20 MG CAPSULE.DR GT SCH (06:13)
[2023-04-20] MEDS: HYDROGEN PEROXIDE 3% 118 ML BOTTLE TP SCH ×2 (07:31→21:00)
[2023-04-20] MEDS: PHENOBARBITAL 32.4 MG TABLET GT SCH ×2 (09:00→21:00)
[2023-04-20] MEDS: BENZOYL PEROXIDE 10% GEL 60 GM TUBE TP SCH ×2 (09:00→21:00)
[2023-04-20] MEDS: POLYVINYL ALCOHOL OPHT DROPS 15 ML BOTTLE EACHEYE SCH ×4 (09:00→21:00)
[2023-04-20] MEDS: REMEDY ESSENTIAL ZINC PASTE 113 GM TP SCH ×2 (09:00→21:00)
[2023-04-20] MEDS: BACLOFEN 20 MG TABLET GT SCH ×3 (09:00→21:00)
[2023-04-20] MEDS: OMEGA-3 FATTY ACIDS/FISH OIL CAPSULE GT SCH (21:00)
[2023-04-20] MEDS: NUTRISOURCE FIBER 4 GM PACKET GT SCH (21:00)
[2023-04-20] MEDS: LATANOPROST OPHT DROP 2.5 ML BOTTLE EACHEYE SCH (21:00)
[2023-04-21] VITALS (10 sets, daily range): TEMP 97.2–98.2; O2SAT 98–99
[2023-04-21] MEDS: IPRATROPIUM BROMIDE 0.5 MG/2.5 ML NEBU NEB SCH ×5 (01:27→19:24)
[2023-04-21] MEDS: ALBUTEROL SULFATE 2.5 MG/3 ML NEBU NEB SCH ×5 (01:27→19:24)
[2023-04-21] MEDS: OMEPRAZOLE 20 MG CAPSULE.DR GT SCH (05:09)
[2023-04-21] MEDS: DOXYCYCLINE HYCLATE 100 MG TABLET GT SCH (05:09)
[2023-04-21] MEDS: ACIDOPHILUS/BULGARICUS CHEW TAB GT SCH ×3 (05:09→22:20)
[2023-04-21] MEDS: VALPROIC ACID 250 MG/5 ML LIQUID UDC GT SCH ×3 (05:09→22:20)
[2023-04-21] MEDS: BENZOYL PEROXIDE 10% GEL 60 GM TUBE TP SCH ×2 (08:52→21:00)
[2023-04-21] MEDS: BACLOFEN 20 MG TABLET GT SCH ×3 (08:52→21:58)
[2023-04-21] MEDS: REMEDY ESSENTIAL ZINC PASTE 113 GM TP SCH ×2 (08:52→21:00)
[2023-04-21] MEDS: PHENOBARBITAL 32.4 MG TABLET GT SCH ×2 (08:52→21:00)
[2023-04-21] MEDS: POLYVINYL ALCOHOL OPHT DROPS 15 ML BOTTLE EACHEYE SCH ×4 (08:52→21:57)
[2023-04-21] MEDS: HYDROGEN PEROXIDE 3% 118 ML BOTTLE TP SCH ×3 (09:00→20:57)
[2023-04-21] MEDS: LATANOPROST OPHT DROP 2.5 ML BOTTLE EACHEYE SCH (21:57)
[2023-04-21] MEDS: OMEGA-3 FATTY ACIDS/FISH OIL CAPSULE GT SCH (21:58)
[2023-04-21] MEDS: NUTRISOURCE FIBER 4 GM PACKET GT SCH (21:59)
[2023-04-22] VITALS (10 sets, daily range): TEMP 97.2–98.8; O2SAT 98–99
[2023-04-22] MEDS: ALBUTEROL SULFATE 2.5 MG/3 ML NEBU NEB SCH ×4 (01:37→19:15)
[2023-04-22] MEDS: IPRATROPIUM BROMIDE 0.5 MG/2.5 ML NEBU NEB SCH ×4 (01:37→19:15)
[2023-04-22] MEDS: ACIDOPHILUS/BULGARICUS CHEW TAB GT SCH ×3 (06:14→21:41)
[2023-04-22] MEDS: VALPROIC ACID 250 MG/5 ML LIQUID UDC GT SCH ×3 (06:14→21:41)
[2023-04-22] MEDS: OMEPRAZOLE 20 MG CAPSULE.DR GT SCH (06:14)
[2023-04-22] MEDS: DOXYCYCLINE HYCLATE 100 MG TABLET GT SCH (06:15)
[2023-04-22] MEDS: BACLOFEN 20 MG TABLET GT SCH ×3 (08:13→20:06)
[2023-04-22] MEDS: REMEDY ESSENTIAL ZINC PASTE 113 GM TP SCH ×2 (08:13→20:07)
[2023-04-22] MEDS: PHENOBARBITAL 32.4 MG TABLET GT SCH ×2 (08:13→20:06)
[2023-04-22] MEDS: POLYVINYL ALCOHOL OPHT DROPS 15 ML BOTTLE EACHEYE SCH ×4 (08:13→20:05)
[2023-04-22] MEDS: BENZOYL PEROXIDE 10% GEL 60 GM TUBE TP SCH ×2 (08:13→20:06)
[2023-04-22] MEDS: HYDROGEN PEROXIDE 3% 118 ML BOTTLE TP SCH ×2 (08:35→19:15)
[2023-04-22 14:39] LABS: PHENOBARBITAL 34.8 ug/ml (10.0-30.0)
[2023-04-22] MEDS: OMEGA-3 FATTY ACIDS/FISH OIL CAPSULE GT SCH (20:06)
[2023-04-22] MEDS: NUTRISOURCE FIBER 4 GM PACKET GT SCH (20:06)
[2023-04-22] MEDS: LATANOPROST OPHT DROP 2.5 ML BOTTLE EACHEYE SCH (20:06)
[2023-04-23] VITALS (10 sets, daily range): TEMP 97.3–97.8; O2SAT 99
[2023-04-23] MEDS: IPRATROPIUM BROMIDE 0.5 MG/2.5 ML NEBU NEB SCH ×4 (01:31→19:09)
[2023-04-23] MEDS: ALBUTEROL SULFATE 2.5 MG/3 ML NEBU NEB SCH ×4 (01:34→19:09)
[2023-04-23] MEDS: ACIDOPHILUS/BULGARICUS CHEW TAB GT SCH ×3 (05:07→22:00)
[2023-04-23] MEDS: DOXYCYCLINE HYCLATE 100 MG TABLET GT SCH (05:07)
[2023-04-23] MEDS: VALPROIC ACID 250 MG/5 ML LIQUID UDC GT SCH ×3 (05:07→22:00)
[2023-04-23] MEDS: OMEPRAZOLE 20 MG CAPSULE.DR GT SCH (05:07)
[2023-04-23] MEDS: HYDROGEN PEROXIDE 3% 118 ML BOTTLE TP SCH ×2 (09:00→21:00)
[2023-04-23] MEDS: BACLOFEN 20 MG TABLET GT SCH ×3 (09:36→21:00)
[2023-04-23] MEDS: POLYVINYL ALCOHOL OPHT DROPS 15 ML BOTTLE EACHEYE SCH ×4 (09:36→21:00)
[2023-04-23] MEDS: BENZOYL PEROXIDE 10% GEL 60 GM TUBE TP SCH ×2 (09:36→21:00)
[2023-04-23] MEDS: PHENOBARBITAL 32.4 MG TABLET GT SCH ×2 (09:36→21:00)
[2023-04-23] MEDS: REMEDY ESSENTIAL ZINC PASTE 113 GM TP SCH ×2 (09:36→21:00)
[2023-04-23] MEDS: JEVITY 1.2 1000 ML LIQUID GT PRN (14:03)
[2023-04-23] MEDS: OMEGA-3 FATTY ACIDS/FISH OIL CAPSULE GT SCH (21:00)
[2023-04-23] MEDS: NUTRISOURCE FIBER 4 GM PACKET GT SCH (21:00)
[2023-04-23] MEDS: LATANOPROST OPHT DROP 2.5 ML BOTTLE EACHEYE SCH (21:00)
[2023-04-24] VITALS (10 sets, daily range): TEMP 97.6–97.9; O2SAT 96–99
[2023-04-24] MEDS: IPRATROPIUM BROMIDE 0.5 MG/2.5 ML NEBU NEB SCH ×4 (01:50→19:46)
[2023-04-24] MEDS: ALBUTEROL SULFATE 2.5 MG/3 ML NEBU NEB SCH ×4 (01:50→19:46)
[2023-04-24] MEDS: VALPROIC ACID 250 MG/5 ML LIQUID UDC GT SCH ×3 (05:20→21:58)
[2023-04-24] MEDS: ACIDOPHILUS/BULGARICUS CHEW TAB GT SCH ×3 (05:22→21:58)
[2023-04-24] MEDS: DOXYCYCLINE HYCLATE 100 MG TABLET GT SCH (05:22)
[2023-04-24] MEDS: OMEPRAZOLE 20 MG CAPSULE.DR GT SCH (05:22)
[2023-04-24] MEDS: HYDROGEN PEROXIDE 3% 118 ML BOTTLE TP SCH ×2 (08:58→19:46)
[2023-04-24] MEDS: POLYVINYL ALCOHOL OPHT DROPS 15 ML BOTTLE EACHEYE SCH ×4 (09:54→20:27)
[2023-04-24] MEDS: BACLOFEN 20 MG TABLET GT SCH ×3 (09:54→20:33)
[2023-04-24] MEDS: BENZOYL PEROXIDE 10% GEL 60 GM TUBE TP SCH ×2 (09:55→20:28)
[2023-04-24] MEDS: REMEDY ESSENTIAL ZINC PASTE 113 GM TP SCH ×2 (09:55→20:28)
[2023-04-24] MEDS: JEVITY 1.2 1000 ML LIQUID GT PRN (09:55)
[2023-04-24] MEDS: PHENOBARBITAL 32.4 MG TABLET GT SCH ×2 (09:55→20:33)
[2023-04-24] MEDS: NUTRISOURCE FIBER 4 GM PACKET GT SCH (20:27)
[2023-04-24] MEDS: LATANOPROST OPHT DROP 2.5 ML BOTTLE EACHEYE SCH (20:27)
[2023-04-24] MEDS: OMEGA-3 FATTY ACIDS/FISH OIL CAPSULE GT SCH (20:27)
[2023-04-25] VITALS (10 sets, daily range): TEMP 97.4–98.7; O2SAT 97–99
[2023-04-25] MEDS: ALBUTEROL SULFATE 2.5 MG/3 ML NEBU NEB SCH ×4 (01:32→19:16)
[2023-04-25] MEDS: IPRATROPIUM BROMIDE 0.5 MG/2.5 ML NEBU NEB SCH ×4 (01:32→19:16)
[2023-04-25] MEDS: VALPROIC ACID 250 MG/5 ML LIQUID UDC GT SCH ×3 (05:25→21:51)
[2023-04-25] MEDS: ACIDOPHILUS/BULGARICUS CHEW TAB GT SCH ×3 (05:25→21:51)
[2023-04-25] MEDS: OMEPRAZOLE 20 MG CAPSULE.DR GT SCH (05:26)
[2023-04-25] MEDS: DOXYCYCLINE HYCLATE 100 MG TABLET GT SCH (05:29)
[2023-04-25] MEDS: JEVITY 1.2 1000 ML LIQUID GT PRN (05:35)
[2023-04-25] MEDS: HYDROGEN PEROXIDE 3% 118 ML BOTTLE TP SCH ×2 (07:20→19:16)
[2023-04-25] MEDS: BENZOYL PEROXIDE 10% GEL 60 GM TUBE TP SCH ×2 (08:51→20:26)
[2023-04-25] MEDS: POLYVINYL ALCOHOL OPHT DROPS 15 ML BOTTLE EACHEYE SCH ×4 (08:51→20:26)
[2023-04-25] MEDS: REMEDY ESSENTIAL ZINC PASTE 113 GM TP SCH ×2 (08:51→20:26)
[2023-04-25] MEDS: BACLOFEN 20 MG TABLET GT SCH ×3 (08:51→20:28)
[2023-04-25] MEDS: PHENOBARBITAL 32.4 MG TABLET GT SCH ×2 (08:51→20:28)
[2023-04-25] MEDS: NUTRISOURCE FIBER 4 GM PACKET GT SCH (20:26)
[2023-04-25] MEDS: OMEGA-3 FATTY ACIDS/FISH OIL CAPSULE GT SCH (20:26)
[2023-04-25] MEDS: LATANOPROST OPHT DROP 2.5 ML BOTTLE EACHEYE SCH (20:26)
[2023-04-26] VITALS (9 sets, daily range): TEMP 98.3; O2SAT 97–99
[2023-04-26] MEDS: IPRATROPIUM BROMIDE 0.5 MG/2.5 ML NEBU NEB SCH ×4 (01:02→19:31)
[2023-04-26] MEDS: ALBUTEROL SULFATE 2.5 MG/3 ML NEBU NEB SCH ×4 (01:02→19:31)
[2023-04-26] MEDS: JEVITY 1.2 1000 ML LIQUID GT PRN (04:00)
[2023-04-26] MEDS: DOXYCYCLINE HYCLATE 100 MG TABLET GT SCH (06:07)
[2023-04-26] MEDS: OMEPRAZOLE 20 MG CAPSULE.DR GT SCH (06:07)
[2023-04-26] MEDS: VALPROIC ACID 250 MG/5 ML LIQUID UDC GT SCH ×3 (06:07→22:22)
[2023-04-26] MEDS: ACIDOPHILUS/BULGARICUS CHEW TAB GT SCH ×3 (06:07→22:22)
[2023-04-26] MEDS: HYDROGEN PEROXIDE 3% 118 ML BOTTLE TP SCH ×2 (09:00→21:18)
[2023-04-26] MEDS: POLYVINYL ALCOHOL OPHT DROPS 15 ML BOTTLE EACHEYE SCH ×4 (09:53→20:15)
[2023-04-26] MEDS: BACLOFEN 20 MG TABLET GT SCH ×3 (09:56→20:16)
[2023-04-26] MEDS: REMEDY ESSENTIAL ZINC PASTE 113 GM TP SCH ×2 (09:57→20:18)
[2023-04-26] MEDS: BENZOYL PEROXIDE 10% GEL 60 GM TUBE TP SCH ×2 (09:57→20:17)
[2023-04-26] MEDS: PHENOBARBITAL 32.4 MG TABLET GT SCH ×2 (09:57→20:17)
[2023-04-26] MEDS: LATANOPROST OPHT DROP 2.5 ML BOTTLE EACHEYE SCH (20:16)
[2023-04-26] MEDS: OMEGA-3 FATTY ACIDS/FISH OIL CAPSULE GT SCH (20:16)
[2023-04-26] MEDS: NUTRISOURCE FIBER 4 GM PACKET GT SCH (20:16)
[2023-04-27] VITALS (10 sets, daily range): TEMP 98; O2SAT 97–99
[2023-04-27] MEDS: ALBUTEROL SULFATE 2.5 MG/3 ML NEBU NEB SCH ×4 (01:03→20:00)
[2023-04-27] MEDS: IPRATROPIUM BROMIDE 0.5 MG/2.5 ML NEBU NEB SCH ×4 (01:03→20:00)
[2023-04-27] MEDS: JEVITY 1.2 1000 ML LIQUID GT PRN (05:56)
[2023-04-27] MEDS: VALPROIC ACID 250 MG/5 ML LIQUID UDC GT SCH ×3 (05:56→21:53)
[2023-04-27] MEDS: ACIDOPHILUS/BULGARICUS CHEW TAB GT SCH ×3 (05:56→21:53)
[2023-04-27] MEDS: DOXYCYCLINE HYCLATE 100 MG TABLET GT SCH (05:56)
[2023-04-27] MEDS: OMEPRAZOLE 20 MG CAPSULE.DR GT SCH (05:56)
[2023-04-27] MEDS: HYDROGEN PEROXIDE 3% 118 ML BOTTLE TP SCH ×2 (07:35→21:27)
[2023-04-27] MEDS: BACLOFEN 20 MG TABLET GT SCH ×3 (09:13→21:55)
[2023-04-27] MEDS: POLYVINYL ALCOHOL OPHT DROPS 15 ML BOTTLE EACHEYE SCH ×4 (09:13→21:47)
[2023-04-27] MEDS: PHENOBARBITAL 32.4 MG TABLET GT SCH ×2 (09:14→21:48)
[2023-04-27] MEDS: BENZOYL PEROXIDE 10% GEL 60 GM TUBE TP SCH ×2 (09:21→21:51)
[2023-04-27] MEDS: REMEDY ESSENTIAL ZINC PASTE 113 GM TP SCH ×2 (09:22→21:52)
[2023-04-27] MEDS: OMEGA-3 FATTY ACIDS/FISH OIL CAPSULE GT SCH (21:47)
[2023-04-27] MEDS: LATANOPROST OPHT DROP 2.5 ML BOTTLE EACHEYE SCH (21:47)
[2023-04-27] MEDS: NUTRISOURCE FIBER 4 GM PACKET GT SCH (21:48)
[2023-04-28] VITALS (10 sets, daily range): BP systolic 99–113; BP diastolic 61–64; TEMP 97.8; O2SAT 96–99
[2023-04-28] MEDS: ALBUTEROL SULFATE 2.5 MG/3 ML NEBU NEB SCH ×4 (02:00→19:08)
[2023-04-28] MEDS: IPRATROPIUM BROMIDE 0.5 MG/2.5 ML NEBU NEB SCH ×4 (02:00→19:08)
[2023-04-28] MEDS: JEVITY 1.2 1000 ML LIQUID GT PRN (02:58)
[2023-04-28] MEDS: VALPROIC ACID 250 MG/5 ML LIQUID UDC GT SCH ×3 (05:49→21:14)
[2023-04-28] MEDS: DOXYCYCLINE HYCLATE 100 MG TABLET GT SCH (05:49)
[2023-04-28] MEDS: OMEPRAZOLE 20 MG CAPSULE.DR GT SCH (05:49)
[2023-04-28] MEDS: ACIDOPHILUS/BULGARICUS CHEW TAB GT SCH ×3 (05:49→21:14)
[2023-04-28] MEDS: POLYVINYL ALCOHOL OPHT DROPS 15 ML BOTTLE EACHEYE SCH ×4 (08:43→21:13)
[2023-04-28] MEDS: BENZOYL PEROXIDE 10% GEL 60 GM TUBE TP SCH ×2 (08:44→21:13)
[2023-04-28] MEDS: BACLOFEN 20 MG TABLET GT SCH ×3 (08:51→21:13)
[2023-04-28] MEDS: PHENOBARBITAL 32.4 MG TABLET GT SCH ×2 (08:51→21:13)
[2023-04-28] MEDS: REMEDY ESSENTIAL ZINC PASTE 113 GM TP SCH ×2 (08:52→21:13)
[2023-04-28] MEDS: HYDROGEN PEROXIDE 3% 118 ML BOTTLE TP SCH ×2 (09:35→19:08)
[2023-04-28] MEDS: OMEGA-3 FATTY ACIDS/FISH OIL CAPSULE GT SCH (21:13)
[2023-04-28] MEDS: LATANOPROST OPHT DROP 2.5 ML BOTTLE EACHEYE SCH (21:13)
[2023-04-28] MEDS: NUTRISOURCE FIBER 4 GM PACKET GT SCH (21:13)
[2023-04-29] VITALS (10 sets, daily range): TEMP 98–98.1; O2SAT 97–99
[2023-04-29] MEDS: ALBUTEROL SULFATE 2.5 MG/3 ML NEBU NEB SCH ×4 (00:52→19:30)
[2023-04-29] MEDS: IPRATROPIUM BROMIDE 0.5 MG/2.5 ML NEBU NEB SCH ×4 (00:52→19:30)
[2023-04-29] MEDS: OMEPRAZOLE 20 MG CAPSULE.DR GT SCH (05:32)
[2023-04-29] MEDS: ACIDOPHILUS/BULGARICUS CHEW TAB GT SCH ×3 (05:32→21:18)
[2023-04-29] MEDS: JEVITY 1.2 1000 ML LIQUID GT PRN ×2 (05:32→20:28)
[2023-04-29] MEDS: DOXYCYCLINE HYCLATE 100 MG TABLET GT SCH (05:32)
[2023-04-29] MEDS: VALPROIC ACID 250 MG/5 ML LIQUID UDC GT SCH ×3 (05:32→21:18)
[2023-04-29] MEDS: POLYVINYL ALCOHOL OPHT DROPS 15 ML BOTTLE EACHEYE SCH ×4 (08:32→20:21)
[2023-04-29] MEDS: PHENOBARBITAL 32.4 MG TABLET GT SCH ×2 (08:43→20:21)
[2023-04-29] MEDS: BACLOFEN 20 MG TABLET GT SCH ×3 (08:43→20:21)
[2023-04-29] MEDS: BENZOYL PEROXIDE 10% GEL 60 GM TUBE TP SCH ×2 (08:43→20:21)
[2023-04-29] MEDS: REMEDY ESSENTIAL ZINC PASTE 113 GM TP SCH ×2 (08:44→20:22)
[2023-04-29] MEDS: HYDROGEN PEROXIDE 3% 118 ML BOTTLE TP SCH ×2 (09:02→20:42)
[2023-04-29] MEDS: OMEGA-3 FATTY ACIDS/FISH OIL CAPSULE GT SCH (20:21)
[2023-04-29] MEDS: LATANOPROST OPHT DROP 2.5 ML BOTTLE EACHEYE SCH (20:21)
[2023-04-29] MEDS: NUTRISOURCE FIBER 4 GM PACKET GT SCH (20:21)
[2023-04-30] VITALS (9 sets, daily range): TEMP 98.7–98.9; O2SAT 93–99
[2023-04-30] MEDS: ALBUTEROL SULFATE 2.5 MG/3 ML NEBU NEB SCH ×4 (01:49→19:02)
[2023-04-30] MEDS: IPRATROPIUM BROMIDE 0.5 MG/2.5 ML NEBU NEB SCH ×4 (01:49→19:02)
[2023-04-30] MEDS: DOXYCYCLINE HYCLATE 100 MG TABLET GT SCH (05:17)
[2023-04-30] MEDS: ACIDOPHILUS/BULGARICUS CHEW TAB GT SCH ×3 (05:17→21:00)
[2023-04-30] MEDS: VALPROIC ACID 250 MG/5 ML LIQUID UDC GT SCH ×3 (05:17→21:00)
[2023-04-30] MEDS: OMEPRAZOLE 20 MG CAPSULE.DR GT SCH (05:17)
[2023-04-30] MEDS: POLYVINYL ALCOHOL OPHT DROPS 15 ML BOTTLE EACHEYE SCH ×4 (08:29→20:59)
[2023-04-30] MEDS: PHENOBARBITAL 32.4 MG TABLET GT SCH ×2 (08:32→21:00)
[2023-04-30] MEDS: BACLOFEN 20 MG TABLET GT SCH ×3 (08:32→21:00)
[2023-04-30] MEDS: BENZOYL PEROXIDE 10% GEL 60 GM TUBE TP SCH ×2 (09:00→21:00)
[2023-04-30] MEDS: REMEDY ESSENTIAL ZINC PASTE 113 GM TP SCH ×2 (09:00→21:00)
[2023-04-30] MEDS: HYDROGEN PEROXIDE 3% 118 ML BOTTLE TP SCH ×2 (09:14→21:19)
[2023-04-30] MEDS: OMEGA-3 FATTY ACIDS/FISH OIL CAPSULE GT SCH (20:59)
[2023-04-30] MEDS: LATANOPROST OPHT DROP 2.5 ML BOTTLE EACHEYE SCH (20:59)
[2023-04-30] MEDS: NUTRISOURCE FIBER 4 GM PACKET GT SCH (21:00)
[2023-05-01] VITALS (10 sets, daily range): TEMP 97.4–97.7; O2SAT 95–99
[2023-05-01] MEDS: ALBUTEROL SULFATE 2.5 MG/3 ML NEBU NEB SCH ×4 (01:02→19:40)
[2023-05-01] MEDS: IPRATROPIUM BROMIDE 0.5 MG/2.5 ML NEBU NEB SCH ×4 (01:02→19:40)
[2023-05-01] MEDS: ACIDOPHILUS/BULGARICUS CHEW TAB GT SCH ×3 (06:14→22:10)
[2023-05-01] MEDS: VALPROIC ACID 250 MG/5 ML LIQUID UDC GT SCH ×3 (06:14→22:10)
[2023-05-01] MEDS: DOXYCYCLINE HYCLATE 100 MG TABLET GT SCH (06:14)
[2023-05-01] MEDS: OMEPRAZOLE 20 MG CAPSULE.DR GT SCH (06:14)
[2023-05-01] MEDS: HYDROGEN PEROXIDE 3% 118 ML BOTTLE TP SCH ×2 (08:42→21:17)
[2023-05-01] MEDS: BACLOFEN 20 MG TABLET GT SCH ×3 (09:46→21:00)
[2023-05-01] MEDS: PHENOBARBITAL 32.4 MG TABLET GT SCH ×2 (09:46→21:00)
[2023-05-01] MEDS: POLYVINYL ALCOHOL OPHT DROPS 15 ML BOTTLE EACHEYE SCH ×4 (09:46→21:00)
[2023-05-01] MEDS: BENZOYL PEROXIDE 10% GEL 60 GM TUBE TP SCH ×2 (09:47→21:00)
[2023-05-01] MEDS: REMEDY ESSENTIAL ZINC PASTE 113 GM TP SCH ×2 (09:47→21:00)
[2023-05-01] MEDS: JEVITY 1.2 1000 ML LIQUID GT PRN ×2 (16:33→23:00)
[2023-05-01] MEDS: NUTRISOURCE FIBER 4 GM PACKET GT SCH (21:00)
[2023-05-01] MEDS: OMEGA-3 FATTY ACIDS/FISH OIL CAPSULE GT SCH (21:00)
[2023-05-01] MEDS: LATANOPROST OPHT DROP 2.5 ML BOTTLE EACHEYE SCH (21:00)
[2023-05-02] VITALS (10 sets, daily range): TEMP 97.4; O2SAT 96–99
[2023-05-02] MEDS: ALBUTEROL SULFATE 2.5 MG/3 ML NEBU NEB SCH ×4 (01:52→20:10)
[2023-05-02] MEDS: IPRATROPIUM BROMIDE 0.5 MG/2.5 ML NEBU NEB SCH ×4 (01:52→20:10)
[2023-05-02] MEDS: OMEPRAZOLE 20 MG CAPSULE.DR GT SCH (06:54)
[2023-05-02] MEDS: DOXYCYCLINE HYCLATE 100 MG TABLET GT SCH (06:54)
[2023-05-02] MEDS: ACIDOPHILUS/BULGARICUS CHEW TAB GT SCH ×3 (06:54→21:25)
[2023-05-02] MEDS: VALPROIC ACID 250 MG/5 ML LIQUID UDC GT SCH ×3 (06:54→21:25)
[2023-05-02] MEDS: PHENOBARBITAL 32.4 MG TABLET GT SCH ×2 (09:00→21:23)
[2023-05-02] MEDS: REMEDY ESSENTIAL ZINC PASTE 113 GM TP SCH ×2 (09:00→21:24)
[2023-05-02] MEDS: HYDROGEN PEROXIDE 3% 118 ML BOTTLE TP SCH ×2 (09:00→21:00)
[2023-05-02] MEDS: BACLOFEN 20 MG TABLET GT SCH ×3 (09:00→21:25)
[2023-05-02] MEDS: BENZOYL PEROXIDE 10% GEL 60 GM TUBE TP SCH ×2 (09:00→21:24)
[2023-05-02] MEDS: POLYVINYL ALCOHOL OPHT DROPS 15 ML BOTTLE EACHEYE SCH ×4 (09:00→21:22)
[2023-05-02] MEDS: JEVITY 1.2 1000 ML LIQUID GT PRN (13:39)
[2023-05-02] MEDS: LATANOPROST OPHT DROP 2.5 ML BOTTLE EACHEYE SCH (21:23)
[2023-05-02] MEDS: OMEGA-3 FATTY ACIDS/FISH OIL CAPSULE GT SCH (21:23)
[2023-05-02] MEDS: NUTRISOURCE FIBER 4 GM PACKET GT SCH (21:25)
[2023-05-03] VITALS (10 sets, daily range): TEMP 97.6–98.2; O2SAT 96–99
[2023-05-03] MEDS: ALBUTEROL SULFATE 2.5 MG/3 ML NEBU NEB SCH ×4 (01:01→19:32)
[2023-05-03] MEDS: IPRATROPIUM BROMIDE 0.5 MG/2.5 ML NEBU NEB SCH ×4 (01:01→19:32)
[2023-05-03] MEDS: VALPROIC ACID 250 MG/5 ML LIQUID UDC GT SCH ×3 (05:34→21:04)
[2023-05-03] MEDS: DOXYCYCLINE HYCLATE 100 MG TABLET GT SCH (05:35)
[2023-05-03] MEDS: OMEPRAZOLE 20 MG CAPSULE.DR GT SCH (05:35)
[2023-05-03] MEDS: ACIDOPHILUS/BULGARICUS CHEW TAB GT SCH ×3 (05:35→21:05)
[2023-05-03] MEDS: POLYVINYL ALCOHOL OPHT DROPS 15 ML BOTTLE EACHEYE SCH ×4 (08:41→21:03)
[2023-05-03] MEDS: PHENOBARBITAL 32.4 MG TABLET GT SCH ×2 (08:41→21:06)
[2023-05-03] MEDS: BACLOFEN 20 MG TABLET GT SCH ×3 (08:41→21:06)
[2023-05-03] MEDS: BENZOYL PEROXIDE 10% GEL 60 GM TUBE TP SCH ×2 (08:41→21:05)
[2023-05-03] MEDS: REMEDY ESSENTIAL ZINC PASTE 113 GM TP SCH ×2 (08:41→21:05)
[2023-05-03] MEDS: JEVITY 1.2 1000 ML LIQUID GT PRN (08:43)
[2023-05-03] MEDS: HYDROGEN PEROXIDE 3% 118 ML BOTTLE TP SCH ×2 (09:00→21:01)
[2023-05-03] MEDS: LATANOPROST OPHT DROP 2.5 ML BOTTLE EACHEYE SCH (21:03)
[2023-05-03] MEDS: OMEGA-3 FATTY ACIDS/FISH OIL CAPSULE GT SCH (21:06)
[2023-05-03] MEDS: NUTRISOURCE FIBER 4 GM PACKET GT SCH (21:07)
[2023-05-04] VITALS (10 sets, daily range): TEMP 97.2–97.4; O2SAT 98–99
[2023-05-04] MEDS: ALBUTEROL SULFATE 2.5 MG/3 ML NEBU NEB SCH ×4 (01:42→19:16)
[2023-05-04] MEDS: IPRATROPIUM BROMIDE 0.5 MG/2.5 ML NEBU NEB SCH ×4 (01:42→19:16)
[2023-05-04] MEDS: ACIDOPHILUS/BULGARICUS CHEW TAB GT SCH ×3 (06:47→21:03)
[2023-05-04] MEDS: VALPROIC ACID 250 MG/5 ML LIQUID UDC GT SCH ×3 (06:47→21:03)
[2023-05-04] MEDS: JEVITY 1.2 1000 ML LIQUID GT PRN (06:47)
[2023-05-04] MEDS: OMEPRAZOLE 20 MG CAPSULE.DR GT SCH (06:47)
[2023-05-04] MEDS: DOXYCYCLINE HYCLATE 100 MG TABLET GT SCH (06:47)
[2023-05-04] MEDS: PHENOBARBITAL 32.4 MG TABLET GT SCH ×2 (08:27→21:02)
[2023-05-04] MEDS: BENZOYL PEROXIDE 10% GEL 60 GM TUBE TP SCH ×2 (08:27→21:02)
[2023-05-04] MEDS: POLYVINYL ALCOHOL OPHT DROPS 15 ML BOTTLE EACHEYE SCH ×4 (08:27→20:59)
[2023-05-04] MEDS: BACLOFEN 20 MG TABLET GT SCH ×3 (08:27→21:02)
[2023-05-04] MEDS: REMEDY ESSENTIAL ZINC PASTE 113 GM TP SCH ×2 (08:28→21:02)
[2023-05-04] MEDS: HYDROGEN PEROXIDE 3% 118 ML BOTTLE TP SCH ×2 (08:50→19:17)
[2023-05-04] MEDS: LATANOPROST OPHT DROP 2.5 ML BOTTLE EACHEYE SCH (20:59)
[2023-05-04] MEDS: NUTRISOURCE FIBER 4 GM PACKET GT SCH (21:02)
[2023-05-04] MEDS: OMEGA-3 FATTY ACIDS/FISH OIL CAPSULE GT SCH (21:02)
[2023-05-05] VITALS (10 sets, daily range): TEMP 97.8–98; O2SAT 98–99
[2023-05-05] MEDS: JEVITY 1.2 1000 ML LIQUID GT PRN (00:55)
[2023-05-05] MEDS: ALBUTEROL SULFATE 2.5 MG/3 ML NEBU NEB SCH ×4 (01:20→19:12)
[2023-05-05] MEDS: IPRATROPIUM BROMIDE 0.5 MG/2.5 ML NEBU NEB SCH ×4 (01:20→19:12)
[2023-05-05] MEDS: VALPROIC ACID 250 MG/5 ML LIQUID UDC GT SCH ×3 (06:03→22:31)
[2023-05-05] MEDS: OMEPRAZOLE 20 MG CAPSULE.DR GT SCH (06:03)
[2023-05-05] MEDS: ACIDOPHILUS/BULGARICUS CHEW TAB GT SCH ×3 (06:03→22:32)
[2023-05-05] MEDS: DOXYCYCLINE HYCLATE 100 MG TABLET GT SCH (06:03)
[2023-05-05] MEDS: POLYVINYL ALCOHOL OPHT DROPS 15 ML BOTTLE EACHEYE SCH ×4 (08:29→20:27)
[2023-05-05] MEDS: BENZOYL PEROXIDE 10% GEL 60 GM TUBE TP SCH ×2 (08:30→20:28)
[2023-05-05] MEDS: REMEDY ESSENTIAL ZINC PASTE 113 GM TP SCH ×2 (08:30→20:28)
[2023-05-05] MEDS: PHENOBARBITAL 32.4 MG TABLET GT SCH ×2 (08:30→20:28)
[2023-05-05] MEDS: BACLOFEN 20 MG TABLET GT SCH ×3 (08:30→20:28)
[2023-05-05] MEDS: HYDROGEN PEROXIDE 3% 118 ML BOTTLE TP SCH ×2 (08:45→19:12)
[2023-05-05] MEDS: OMEGA-3 FATTY ACIDS/FISH OIL CAPSULE GT SCH (20:27)
[2023-05-05] MEDS: LATANOPROST OPHT DROP 2.5 ML BOTTLE EACHEYE SCH (20:27)
[2023-05-05] MEDS: NUTRISOURCE FIBER 4 GM PACKET GT SCH (20:28)
[2023-05-06] VITALS (10 sets, daily range): BP systolic 96; BP diastolic 65; TEMP 97.4–98; O2SAT 96–99
[2023-05-06] MEDS: ALBUTEROL SULFATE 2.5 MG/3 ML NEBU NEB SCH ×4 (01:19→19:13)
[2023-05-06] MEDS: IPRATROPIUM BROMIDE 0.5 MG/2.5 ML NEBU NEB SCH ×4 (01:19→19:13)
[2023-05-06] MEDS: ACIDOPHILUS/BULGARICUS CHEW TAB GT SCH ×3 (06:36→22:00)
[2023-05-06] MEDS: VALPROIC ACID 250 MG/5 ML LIQUID UDC GT SCH ×3 (06:36→22:00)
[2023-05-06] MEDS: DOXYCYCLINE HYCLATE 100 MG TABLET GT SCH (06:37)
[2023-05-06] MEDS: OMEPRAZOLE 20 MG CAPSULE.DR GT SCH (06:37)
[2023-05-06] MEDS: POLYVINYL ALCOHOL OPHT DROPS 15 ML BOTTLE EACHEYE SCH ×4 (08:29→20:23)
[2023-05-06] MEDS: BENZOYL PEROXIDE 10% GEL 60 GM TUBE TP SCH ×2 (08:29→20:26)
[2023-05-06] MEDS: BACLOFEN 20 MG TABLET GT SCH ×3 (08:29→20:25)
[2023-05-06] MEDS: PHENOBARBITAL 32.4 MG TABLET GT SCH ×2 (08:29→20:25)
[2023-05-06] MEDS: REMEDY ESSENTIAL ZINC PASTE 113 GM TP SCH ×2 (08:30→20:26)
[2023-05-06] MEDS: HYDROGEN PEROXIDE 3% 118 ML BOTTLE TP SCH ×2 (09:07→19:13)
[2023-05-06] MEDS: JEVITY 1.2 1000 ML LIQUID GT PRN (12:48)
[2023-05-06] MEDS: OMEGA-3 FATTY ACIDS/FISH OIL CAPSULE GT SCH (20:25)
[2023-05-06] MEDS: LATANOPROST OPHT DROP 2.5 ML BOTTLE EACHEYE SCH (20:25)
[2023-05-06] MEDS: NUTRISOURCE FIBER 4 GM PACKET GT SCH (20:30)
[2023-05-07] VITALS (10 sets, daily range): TEMP 97.9–98.2; O2SAT 94–99
[2023-05-07] MEDS: IPRATROPIUM BROMIDE 0.5 MG/2.5 ML NEBU NEB SCH ×4 (01:02→19:12)
[2023-05-07] MEDS: ALBUTEROL SULFATE 2.5 MG/3 ML NEBU NEB SCH ×4 (01:02→19:12)
[2023-05-07] MEDS: JEVITY 1.2 1000 ML LIQUID GT PRN (04:23)
[2023-05-07] MEDS: ACIDOPHILUS/BULGARICUS CHEW TAB GT SCH ×3 (05:47→21:33)
[2023-05-07] MEDS: VALPROIC ACID 250 MG/5 ML LIQUID UDC GT SCH ×3 (05:47→21:33)
[2023-05-07] MEDS: DOXYCYCLINE HYCLATE 100 MG TABLET GT SCH (05:47)
[2023-05-07] MEDS: OMEPRAZOLE 20 MG CAPSULE.DR GT SCH (05:47)
[2023-05-07] MEDS: HYDROGEN PEROXIDE 3% 118 ML BOTTLE TP SCH ×2 (09:11→19:13)
[2023-05-07] MEDS: POLYVINYL ALCOHOL OPHT DROPS 15 ML BOTTLE EACHEYE SCH ×4 (09:36→21:30)
[2023-05-07] MEDS: PHENOBARBITAL 32.4 MG TABLET GT SCH ×2 (09:37→21:30)
[2023-05-07] MEDS: REMEDY ESSENTIAL ZINC PASTE 113 GM TP SCH ×2 (09:37→21:31)
[2023-05-07] MEDS: BENZOYL PEROXIDE 10% GEL 60 GM TUBE TP SCH ×2 (09:37→21:31)
[2023-05-07] MEDS: BACLOFEN 20 MG TABLET GT SCH ×3 (09:37→21:30)
[2023-05-07] MEDS: LATANOPROST OPHT DROP 2.5 ML BOTTLE EACHEYE SCH (21:30)
[2023-05-07] MEDS: NUTRISOURCE FIBER 4 GM PACKET GT SCH (21:30)
[2023-05-07] MEDS: OMEGA-3 FATTY ACIDS/FISH OIL CAPSULE GT SCH (21:30)
[2023-05-08] VITALS (10 sets, daily range): TEMP 97.2–98.7; O2SAT 97–99
[2023-05-08] MEDS: IPRATROPIUM BROMIDE 0.5 MG/2.5 ML NEBU NEB SCH ×4 (01:09→19:50)
[2023-05-08] MEDS: ALBUTEROL SULFATE 2.5 MG/3 ML NEBU NEB SCH ×4 (01:09→19:50)
[2023-05-08] MEDS: JEVITY 1.2 1000 ML LIQUID GT PRN ×2 (03:39→22:52)
[2023-05-08] MEDS: ACIDOPHILUS/BULGARICUS CHEW TAB GT SCH ×3 (06:13→21:34)
[2023-05-08] MEDS: DOXYCYCLINE HYCLATE 100 MG TABLET GT SCH (06:13)
[2023-05-08] MEDS: OMEPRAZOLE 20 MG CAPSULE.DR GT SCH (06:13)
[2023-05-08] MEDS: VALPROIC ACID 250 MG/5 ML LIQUID UDC GT SCH ×3 (06:13→21:34)
[2023-05-08] MEDS: HYDROGEN PEROXIDE 3% 118 ML BOTTLE TP SCH ×2 (08:18→21:33)
[2023-05-08] MEDS: POLYVINYL ALCOHOL OPHT DROPS 15 ML BOTTLE EACHEYE SCH ×4 (08:36→21:33)
[2023-05-08] MEDS: BACLOFEN 20 MG TABLET GT SCH ×3 (08:36→21:33)
[2023-05-08] MEDS: PHENOBARBITAL 32.4 MG TABLET GT SCH ×2 (08:37→21:33)
[2023-05-08] MEDS: REMEDY ESSENTIAL ZINC PASTE 113 GM TP SCH ×2 (08:37→21:34)
[2023-05-08] MEDS: BENZOYL PEROXIDE 10% GEL 60 GM TUBE TP SCH ×2 (08:37→21:33)
[2023-05-08] MEDS: NUTRISOURCE FIBER 4 GM PACKET GT SCH (21:33)
[2023-05-08] MEDS: LATANOPROST OPHT DROP 2.5 ML BOTTLE EACHEYE SCH (21:33)
[2023-05-08] MEDS: OMEGA-3 FATTY ACIDS/FISH OIL CAPSULE GT SCH (21:33)
[2023-05-09] VITALS (10 sets, daily range): TEMP 97–97.1; O2SAT 97–99
[2023-05-09] MEDS: IPRATROPIUM BROMIDE 0.5 MG/2.5 ML NEBU NEB SCH ×4 (01:15→19:19)
[2023-05-09] MEDS: ALBUTEROL SULFATE 2.5 MG/3 ML NEBU NEB SCH ×4 (01:15→19:19)
[2023-05-09] MEDS: VALPROIC ACID 250 MG/5 ML LIQUID UDC GT SCH ×3 (05:25→21:15)
[2023-05-09] MEDS: ACIDOPHILUS/BULGARICUS CHEW TAB GT SCH ×3 (05:25→21:14)
[2023-05-09] MEDS: DOXYCYCLINE HYCLATE 100 MG TABLET GT SCH (05:25)
[2023-05-09] MEDS: OMEPRAZOLE 20 MG CAPSULE.DR GT SCH (05:25)
[2023-05-09] MEDS: PHENOBARBITAL 32.4 MG TABLET GT SCH ×2 (08:39→21:14)
[2023-05-09] MEDS: POLYVINYL ALCOHOL OPHT DROPS 15 ML BOTTLE EACHEYE SCH ×4 (08:41→21:13)
[2023-05-09] MEDS: BACLOFEN 20 MG TABLET GT SCH ×3 (08:41→21:14)
[2023-05-09] MEDS: BENZOYL PEROXIDE 10% GEL 60 GM TUBE TP SCH ×2 (08:43→21:14)
[2023-05-09] MEDS: REMEDY ESSENTIAL ZINC PASTE 113 GM TP SCH ×2 (08:43→21:14)
[2023-05-09] MEDS: HYDROGEN PEROXIDE 3% 118 ML BOTTLE TP SCH ×2 (09:48→19:19)
[2023-05-09] MEDS: JEVITY 1.2 1000 ML LIQUID GT PRN (19:08)
[2023-05-09] MEDS: LATANOPROST OPHT DROP 2.5 ML BOTTLE EACHEYE SCH (21:13)
[2023-05-09] MEDS: NUTRISOURCE FIBER 4 GM PACKET GT SCH (21:14)
[2023-05-09] MEDS: OMEGA-3 FATTY ACIDS/FISH OIL CAPSULE GT SCH (21:14)
[2023-05-10] VITALS (11 sets, daily range): TEMP 97.4–98.7; O2SAT 97–99
[2023-05-10] MEDS: IPRATROPIUM BROMIDE 0.5 MG/2.5 ML NEBU NEB SCH ×4 (01:29→19:07)
[2023-05-10] MEDS: ALBUTEROL SULFATE 2.5 MG/3 ML NEBU NEB SCH ×4 (01:30→19:07)
[2023-05-10] MEDS: DOXYCYCLINE HYCLATE 100 MG TABLET GT SCH (06:08)
[2023-05-10] MEDS: ACIDOPHILUS/BULGARICUS CHEW TAB GT SCH ×3 (06:08→21:09)
[2023-05-10] MEDS: OMEPRAZOLE 20 MG CAPSULE.DR GT SCH (06:08)
[2023-05-10] MEDS: VALPROIC ACID 250 MG/5 ML LIQUID UDC GT SCH ×3 (06:08→21:09)
[2023-05-10] MEDS: HYDROGEN PEROXIDE 3% 118 ML BOTTLE TP SCH ×2 (09:00→19:08)
[2023-05-10] MEDS: BACLOFEN 20 MG TABLET GT SCH ×3 (09:48→21:08)
[2023-05-10] MEDS: BENZOYL PEROXIDE 10% GEL 60 GM TUBE TP SCH ×2 (09:49→21:09)
[2023-05-10] MEDS: REMEDY ESSENTIAL ZINC PASTE 113 GM TP SCH ×2 (09:49→21:09)
[2023-05-10] MEDS: POLYVINYL ALCOHOL OPHT DROPS 15 ML BOTTLE EACHEYE SCH ×4 (09:49→21:08)
[2023-05-10] MEDS: PHENOBARBITAL 32.4 MG TABLET GT SCH ×2 (09:49→21:08)
[2023-05-10] MEDS: JEVITY 1.2 1000 ML LIQUID GT PRN (18:29)
[2023-05-10] MEDS: OMEGA-3 FATTY ACIDS/FISH OIL CAPSULE GT SCH (21:08)
[2023-05-10] MEDS: LATANOPROST OPHT DROP 2.5 ML BOTTLE EACHEYE SCH (21:08)
[2023-05-10] MEDS: NUTRISOURCE FIBER 4 GM PACKET GT SCH (21:08)
[2023-05-11] VITALS (10 sets, daily range): TEMP 97–97.5; O2SAT 98–99
[2023-05-11] MEDS: ALBUTEROL SULFATE 2.5 MG/3 ML NEBU NEB SCH ×4 (01:19→19:26)
[2023-05-11] MEDS: IPRATROPIUM BROMIDE 0.5 MG/2.5 ML NEBU NEB SCH ×4 (01:19→19:26)
[2023-05-11] MEDS: ACIDOPHILUS/BULGARICUS CHEW TAB GT SCH ×3 (06:02→21:16)
[2023-05-11] MEDS: OMEPRAZOLE 20 MG CAPSULE.DR GT SCH (06:02)
[2023-05-11] MEDS: VALPROIC ACID 250 MG/5 ML LIQUID UDC GT SCH ×3 (06:02→21:16)
[2023-05-11] MEDS: DOXYCYCLINE HYCLATE 100 MG TABLET GT SCH (06:03)
[2023-05-11] MEDS: BACLOFEN 20 MG TABLET GT SCH ×3 (08:19→21:13)
[2023-05-11] MEDS: POLYVINYL ALCOHOL OPHT DROPS 15 ML BOTTLE EACHEYE SCH ×4 (08:21→21:12)
[2023-05-11] MEDS: PHENOBARBITAL 32.4 MG TABLET GT SCH ×2 (08:21→21:14)
[2023-05-11] MEDS: BENZOYL PEROXIDE 10% GEL 60 GM TUBE TP SCH ×2 (08:21→21:14)
[2023-05-11] MEDS: REMEDY ESSENTIAL ZINC PASTE 113 GM TP SCH ×2 (08:21→21:14)
[2023-05-11] MEDS: HYDROGEN PEROXIDE 3% 118 ML BOTTLE TP SCH ×3 (09:54→19:26)
[2023-05-11] MEDS: LATANOPROST OPHT DROP 2.5 ML BOTTLE EACHEYE SCH (21:13)
[2023-05-11] MEDS: OMEGA-3 FATTY ACIDS/FISH OIL CAPSULE GT SCH (21:13)
[2023-05-11] MEDS: NUTRISOURCE FIBER 4 GM PACKET GT SCH (21:14)
[2023-05-11] MEDS: JEVITY 1.2 1000 ML LIQUID GT PRN (21:17)
[2023-05-12] VITALS (10 sets, daily range): TEMP 97.6–97.9; O2SAT 98–99
[2023-05-12] MEDS: IPRATROPIUM BROMIDE 0.5 MG/2.5 ML NEBU NEB SCH ×4 (01:11→19:06)
[2023-05-12] MEDS: ALBUTEROL SULFATE 2.5 MG/3 ML NEBU NEB SCH ×4 (01:11→19:06)
[2023-05-12] MEDS: DOXYCYCLINE HYCLATE 100 MG TABLET GT SCH (06:17)
[2023-05-12] MEDS: ACIDOPHILUS/BULGARICUS CHEW TAB GT SCH ×3 (06:17→21:27)
[2023-05-12] MEDS: OMEPRAZOLE 20 MG CAPSULE.DR GT SCH (06:17)
[2023-05-12] MEDS: VALPROIC ACID 250 MG/5 ML LIQUID UDC GT SCH ×3 (06:17→21:27)
[2023-05-12] MEDS: BENZOYL PEROXIDE 10% GEL 60 GM TUBE TP SCH ×2 (08:55→21:26)
[2023-05-12] MEDS: POLYVINYL ALCOHOL OPHT DROPS 15 ML BOTTLE EACHEYE SCH ×4 (08:55→21:23)
[2023-05-12] MEDS: PHENOBARBITAL 32.4 MG TABLET GT SCH ×2 (08:55→21:26)
[2023-05-12] MEDS: BACLOFEN 20 MG TABLET GT SCH ×3 (08:55→21:25)
[2023-05-12] MEDS: REMEDY ESSENTIAL ZINC PASTE 113 GM TP SCH ×2 (08:55→21:26)
[2023-05-12] MEDS: JEVITY 1.2 1000 ML LIQUID GT PRN (16:59)
[2023-05-12] MEDS: LATANOPROST OPHT DROP 2.5 ML BOTTLE EACHEYE SCH (21:23)
[2023-05-12] MEDS: OMEGA-3 FATTY ACIDS/FISH OIL CAPSULE GT SCH (21:24)
[2023-05-12] MEDS: NUTRISOURCE FIBER 4 GM PACKET GT SCH (21:26)
[2023-05-12] MEDS: HYDROGEN PEROXIDE 3% 118 ML BOTTLE TP SCH (21:28)
[2023-05-13] VITALS (10 sets, daily range): TEMP 97.4–97.5; O2SAT 98–99
[2023-05-13] MEDS: ALBUTEROL SULFATE 2.5 MG/3 ML NEBU NEB SCH ×4 (02:10→19:38)
[2023-05-13] MEDS: IPRATROPIUM BROMIDE 0.5 MG/2.5 ML NEBU NEB SCH ×4 (02:10→19:38)
[2023-05-13] MEDS: ACIDOPHILUS/BULGARICUS CHEW TAB GT SCH ×3 (06:23→22:14)
[2023-05-13] MEDS: OMEPRAZOLE 20 MG CAPSULE.DR GT SCH (06:23)
[2023-05-13] MEDS: DOXYCYCLINE HYCLATE 100 MG TABLET GT SCH (06:23)
[2023-05-13] MEDS: VALPROIC ACID 250 MG/5 ML LIQUID UDC GT SCH ×3 (06:23→22:14)
[2023-05-13] MEDS: HYDROGEN PEROXIDE 3% 118 ML BOTTLE TP SCH ×2 (07:31→19:38)
[2023-05-13] MEDS: POLYVINYL ALCOHOL OPHT DROPS 15 ML BOTTLE EACHEYE SCH ×4 (08:54→20:09)
[2023-05-13] MEDS: BENZOYL PEROXIDE 10% GEL 60 GM TUBE TP SCH ×2 (08:54→20:09)
[2023-05-13] MEDS: REMEDY ESSENTIAL ZINC PASTE 113 GM TP SCH ×2 (08:54→20:09)
[2023-05-13] MEDS: BACLOFEN 20 MG TABLET GT SCH ×3 (08:54→20:09)
[2023-05-13] MEDS: PHENOBARBITAL 32.4 MG TABLET GT SCH ×2 (08:54→20:09)
[2023-05-13] MEDS: JEVITY 1.2 1000 ML LIQUID GT PRN (12:28)
[2023-05-13] MEDS: NUTRISOURCE FIBER 4 GM PACKET GT SCH (20:09)
[2023-05-13] MEDS: OMEGA-3 FATTY ACIDS/FISH OIL CAPSULE GT SCH (20:09)
[2023-05-13] MEDS: LATANOPROST OPHT DROP 2.5 ML BOTTLE EACHEYE SCH (20:09)
[2023-05-14] VITALS (10 sets, daily range): BP systolic 91; BP diastolic 61; TEMP 97.3–97.8; O2SAT 97–100
[2023-05-14] MEDS: IPRATROPIUM BROMIDE 0.5 MG/2.5 ML NEBU NEB SCH ×4 (00:32→19:50)
[2023-05-14] MEDS: ALBUTEROL SULFATE 2.5 MG/3 ML NEBU NEB SCH ×4 (00:32→19:50)
[2023-05-14] MEDS: VALPROIC ACID 250 MG/5 ML LIQUID UDC GT SCH ×3 (05:21→21:38)
[2023-05-14] MEDS: ACIDOPHILUS/BULGARICUS CHEW TAB GT SCH ×3 (05:21→21:38)
[2023-05-14] MEDS: OMEPRAZOLE 20 MG CAPSULE.DR GT SCH (05:21)
[2023-05-14] MEDS: DOXYCYCLINE HYCLATE 100 MG TABLET GT SCH (05:21)
[2023-05-14] MEDS: HYDROGEN PEROXIDE 3% 118 ML BOTTLE TP SCH ×2 (07:08→20:45)
[2023-05-14] MEDS: POLYVINYL ALCOHOL OPHT DROPS 15 ML BOTTLE EACHEYE SCH ×4 (08:44→21:35)
[2023-05-14] MEDS: PHENOBARBITAL 32.4 MG TABLET GT SCH ×2 (08:45→21:38)
[2023-05-14] MEDS: BACLOFEN 20 MG TABLET GT SCH ×3 (08:45→21:36)
[2023-05-14] MEDS: BENZOYL PEROXIDE 10% GEL 60 GM TUBE TP SCH ×2 (08:45→21:38)
[2023-05-14] MEDS: REMEDY ESSENTIAL ZINC PASTE 113 GM TP SCH ×2 (08:45→21:38)
[2023-05-14] MEDS: OMEGA-3 FATTY ACIDS/FISH OIL CAPSULE GT SCH (21:35)
[2023-05-14] MEDS: LATANOPROST OPHT DROP 2.5 ML BOTTLE EACHEYE SCH (21:35)
[2023-05-14] MEDS: NUTRISOURCE FIBER 4 GM PACKET GT SCH (21:37)
[2023-05-15] VITALS (10 sets, daily range): TEMP 96.5–98.6; O2SAT 96–99
[2023-05-15] MEDS: ALBUTEROL SULFATE 2.5 MG/3 ML NEBU NEB SCH ×4 (01:00→19:50)
[2023-05-15] MEDS: IPRATROPIUM BROMIDE 0.5 MG/2.5 ML NEBU NEB SCH ×4 (01:00→19:50)
[2023-05-15] MEDS: JEVITY 1.2 1000 ML LIQUID GT PRN (06:00)
[2023-05-15] MEDS: ACIDOPHILUS/BULGARICUS CHEW TAB GT SCH ×3 (06:16→22:05)
[2023-05-15] MEDS: OMEPRAZOLE 20 MG CAPSULE.DR GT SCH (06:16)
[2023-05-15] MEDS: VALPROIC ACID 250 MG/5 ML LIQUID UDC GT SCH ×3 (06:16→22:05)
[2023-05-15] MEDS: DOXYCYCLINE HYCLATE 100 MG TABLET GT SCH (06:16)
[2023-05-15] MEDS: POLYVINYL ALCOHOL OPHT DROPS 15 ML BOTTLE EACHEYE SCH ×4 (08:33→20:22)
[2023-05-15] MEDS: BACLOFEN 20 MG TABLET GT SCH ×3 (08:35→20:23)
[2023-05-15] MEDS: PHENOBARBITAL 32.4 MG TABLET GT SCH ×2 (08:35→20:25)
[2023-05-15] MEDS: REMEDY ESSENTIAL ZINC PASTE 113 GM TP SCH ×2 (08:37→20:25)
[2023-05-15] MEDS: BENZOYL PEROXIDE 10% GEL 60 GM TUBE TP SCH ×2 (08:37→20:25)
[2023-05-15] MEDS: HYDROGEN PEROXIDE 3% 118 ML BOTTLE TP SCH ×2 (09:36→20:40)
[2023-05-15] MEDS: OMEGA-3 FATTY ACIDS/FISH OIL CAPSULE GT SCH (20:23)
[2023-05-15] MEDS: LATANOPROST OPHT DROP 2.5 ML BOTTLE EACHEYE SCH (20:23)
[2023-05-15] MEDS: NUTRISOURCE FIBER 4 GM PACKET GT SCH (20:24)
[2023-05-16] VITALS (9 sets, daily range): TEMP 97–97.6; O2SAT 97–99
[2023-05-16] MEDS: ALBUTEROL SULFATE 2.5 MG/3 ML NEBU NEB SCH ×4 (01:30→20:00)
[2023-05-16] MEDS: IPRATROPIUM BROMIDE 0.5 MG/2.5 ML NEBU NEB SCH ×4 (01:30→20:00)
[2023-05-16] MEDS: JEVITY 1.2 1000 ML LIQUID GT PRN ×2 (02:00→23:00)
[2023-05-16] MEDS: DOXYCYCLINE HYCLATE 100 MG TABLET GT SCH (05:03)
[2023-05-16] MEDS: ACIDOPHILUS/BULGARICUS CHEW TAB GT SCH ×3 (05:03→21:36)
[2023-05-16] MEDS: OMEPRAZOLE 20 MG CAPSULE.DR GT SCH (05:03)
[2023-05-16] MEDS: VALPROIC ACID 250 MG/5 ML LIQUID UDC GT SCH ×3 (05:03→21:36)
[2023-05-16] MEDS: PHENOBARBITAL 32.4 MG TABLET GT SCH ×2 (08:11→21:34)
[2023-05-16] MEDS: POLYVINYL ALCOHOL OPHT DROPS 15 ML BOTTLE EACHEYE SCH ×4 (08:11→21:31)
[2023-05-16] MEDS: BACLOFEN 20 MG TABLET GT SCH ×3 (08:11→21:32)
[2023-05-16] MEDS: BENZOYL PEROXIDE 10% GEL 60 GM TUBE TP SCH ×2 (08:13→21:35)
[2023-05-16] MEDS: REMEDY ESSENTIAL ZINC PASTE 113 GM TP SCH ×2 (08:13→21:35)
[2023-05-16] MEDS: HYDROGEN PEROXIDE 3% 118 ML BOTTLE TP SCH ×2 (09:00→21:18)
[2023-05-16 20:23] LABS: *BILIRUBIN,URIN NEGATIVE (NEGATIVE); *BLOOD, URINE NEGATIVE (NEGATIVE); *COLOR,URINE YELLOW (YELLOW); *KETONES,URINE TRACE (NEGATIVE); *PROTEIN,URINE 1+ (NEGATIVE); LEUKOCYTE ESTERASE ,URINE 2+ (NEGATIVE); NITRITE, URINE POSITIVE (NEGATIVE); PH,URINE 8.5 (5.0-8.0); UGLUCOSE NEGATIVE (NEGATIVE)
[2023-05-16 20:26] LABS: *CLARITY,URINE SLIGHTLY CLOUDY (CLEAR)
[2023-05-16] MEDS: OMEGA-3 FATTY ACIDS/FISH OIL CAPSULE GT SCH (21:32)
[2023-05-16] MEDS: LATANOPROST OPHT DROP 2.5 ML BOTTLE EACHEYE SCH (21:32)
[2023-05-16] MEDS: NUTRISOURCE FIBER 4 GM PACKET GT SCH (21:34)
[2023-05-16 21:37] LABS: BACTERIA,URINE MANY /HPF (NONE SEEN); SQUAMOUS EPITHELIAL CELL,UR NONE SEEN /HPF (NONE SEEN)
[2023-05-17] VITALS (10 sets, daily range): TEMP 97–97.6; O2SAT 97–99
[2023-05-17] MEDS: ALBUTEROL SULFATE 2.5 MG/3 ML NEBU NEB SCH ×4 (00:36→19:50)
[2023-05-17] MEDS: IPRATROPIUM BROMIDE 0.5 MG/2.5 ML NEBU NEB SCH ×4 (00:36→19:50)
[2023-05-17] MEDS: VALPROIC ACID 250 MG/5 ML LIQUID UDC GT SCH ×3 (05:14→21:09)
[2023-05-17] MEDS: DOXYCYCLINE HYCLATE 100 MG TABLET GT SCH (05:14)
[2023-05-17] MEDS: OMEPRAZOLE 20 MG CAPSULE.DR GT SCH (05:14)
[2023-05-17] MEDS: ACIDOPHILUS/BULGARICUS CHEW TAB GT SCH ×3 (05:14→21:09)
[2023-05-17] MEDS: HYDROGEN PEROXIDE 3% 118 ML BOTTLE TP SCH ×2 (07:17→21:40)
[2023-05-17] MEDS: POLYVINYL ALCOHOL OPHT DROPS 15 ML BOTTLE EACHEYE SCH ×4 (08:39→20:03)
[2023-05-17] MEDS: BACLOFEN 20 MG TABLET GT SCH ×3 (08:39→20:04)
[2023-05-17] MEDS: BENZOYL PEROXIDE 10% GEL 60 GM TUBE TP SCH ×2 (08:39→20:04)
[2023-05-17] MEDS: REMEDY ESSENTIAL ZINC PASTE 113 GM TP SCH ×2 (08:39→20:04)
[2023-05-17] MEDS: PHENOBARBITAL 32.4 MG TABLET GT SCH ×2 (08:39→20:04)
[2023-05-17] MEDS: LATANOPROST OPHT DROP 2.5 ML BOTTLE EACHEYE SCH (20:03)
[2023-05-17] MEDS: OMEGA-3 FATTY ACIDS/FISH OIL CAPSULE GT SCH (20:03)
[2023-05-17] MEDS: NUTRISOURCE FIBER 4 GM PACKET GT SCH (20:04)
[2023-05-17] MEDS: JEVITY 1.2 1000 ML LIQUID GT PRN (20:30)
[2023-05-18] VITALS (10 sets, daily range): TEMP 97.2–98.2; O2SAT 97–99
[2023-05-18] MEDS: IPRATROPIUM BROMIDE 0.5 MG/2.5 ML NEBU NEB SCH ×4 (00:50→20:13)
[2023-05-18] MEDS: ALBUTEROL SULFATE 2.5 MG/3 ML NEBU NEB SCH ×4 (00:50→20:13)
[2023-05-18] MEDS: VALPROIC ACID 250 MG/5 ML LIQUID UDC GT SCH ×3 (05:21→22:38)
[2023-05-18] MEDS: DOXYCYCLINE HYCLATE 100 MG TABLET GT SCH (05:21)
[2023-05-18] MEDS: ACIDOPHILUS/BULGARICUS CHEW TAB GT SCH ×3 (05:21→22:38)
[2023-05-18] MEDS: OMEPRAZOLE 20 MG CAPSULE.DR GT SCH (05:21)
[2023-05-18] MEDS: REMEDY ESSENTIAL ZINC PASTE 113 GM TP SCH ×2 (09:00→21:00)
[2023-05-18] MEDS: PHENOBARBITAL 32.4 MG TABLET GT SCH ×2 (09:00→21:00)
[2023-05-18] MEDS: BENZOYL PEROXIDE 10% GEL 60 GM TUBE TP SCH ×2 (09:00→21:00)
[2023-05-18] MEDS: HYDROGEN PEROXIDE 3% 118 ML BOTTLE TP SCH ×2 (09:13→20:13)
[2023-05-18] MEDS: BACLOFEN 20 MG TABLET GT SCH ×3 (09:53→21:00)
[2023-05-18] MEDS: POLYVINYL ALCOHOL OPHT DROPS 15 ML BOTTLE EACHEYE SCH ×4 (09:53→21:00)
[2023-05-18] MEDS: JEVITY 1.2 1000 ML LIQUID GT PRN (18:38)
[2023-05-18] MEDS: OMEGA-3 FATTY ACIDS/FISH OIL CAPSULE GT SCH (21:00)
[2023-05-18] MEDS: LATANOPROST OPHT DROP 2.5 ML BOTTLE EACHEYE SCH (21:00)
[2023-05-18] MEDS: NUTRISOURCE FIBER 4 GM PACKET GT SCH (21:00)
[2023-05-19] VITALS (11 sets, daily range): BP systolic 117; BP diastolic 71; TEMP 97.2–98; O2SAT 97–99
[2023-05-19] MEDS: IPRATROPIUM BROMIDE 0.5 MG/2.5 ML NEBU NEB SCH ×4 (01:49→19:51)
[2023-05-19] MEDS: ALBUTEROL SULFATE 2.5 MG/3 ML NEBU NEB SCH ×4 (01:49→19:51)
[2023-05-19] MEDS: ACIDOPHILUS/BULGARICUS CHEW TAB GT SCH ×3 (05:07→21:33)
[2023-05-19] MEDS: OMEPRAZOLE 20 MG CAPSULE.DR GT SCH (05:07)
[2023-05-19] MEDS: VALPROIC ACID 250 MG/5 ML LIQUID UDC GT SCH ×3 (05:07→21:33)
[2023-05-19] MEDS: DOXYCYCLINE HYCLATE 100 MG TABLET GT SCH (05:07)
[2023-05-19] MEDS: BACLOFEN 20 MG TABLET GT SCH ×3 (09:00→21:33)
[2023-05-19] MEDS: POLYVINYL ALCOHOL OPHT DROPS 15 ML BOTTLE EACHEYE SCH ×4 (09:00→21:32)
[2023-05-19] MEDS: REMEDY ESSENTIAL ZINC PASTE 113 GM TP SCH ×2 (09:00→21:33)
[2023-05-19] MEDS: PHENOBARBITAL 32.4 MG TABLET GT SCH ×2 (09:00→21:33)
[2023-05-19] MEDS: BENZOYL PEROXIDE 10% GEL 60 GM TUBE TP SCH ×2 (09:00→21:33)
[2023-05-19] MEDS: HYDROGEN PEROXIDE 3% 118 ML BOTTLE TP SCH ×2 (09:33→19:51)
[2023-05-19] MEDS: JEVITY 1.2 1000 ML LIQUID GT PRN (17:35)
[2023-05-19] MEDS: OMEGA-3 FATTY ACIDS/FISH OIL CAPSULE GT SCH (21:32)
[2023-05-19] MEDS: LATANOPROST OPHT DROP 2.5 ML BOTTLE EACHEYE SCH (21:32)
[2023-05-19] MEDS: NUTRISOURCE FIBER 4 GM PACKET GT SCH (21:33)
[2023-05-20] VITALS (10 sets, daily range): TEMP 97.2–97.4; O2SAT 97–99
[2023-05-20] MEDS: IPRATROPIUM BROMIDE 0.5 MG/2.5 ML NEBU NEB SCH ×4 (01:58→19:11)
[2023-05-20] MEDS: ALBUTEROL SULFATE 2.5 MG/3 ML NEBU NEB SCH ×4 (01:58→19:11)
[2023-05-20] MEDS: ACIDOPHILUS/BULGARICUS CHEW TAB GT SCH ×3 (06:15→21:54)
[2023-05-20] MEDS: OMEPRAZOLE 20 MG CAPSULE.DR GT SCH (06:15)
[2023-05-20] MEDS: VALPROIC ACID 250 MG/5 ML LIQUID UDC GT SCH ×3 (06:15→21:54)
[2023-05-20] MEDS: DOXYCYCLINE HYCLATE 100 MG TABLET GT SCH (06:18)
[2023-05-20] MEDS: POLYVINYL ALCOHOL OPHT DROPS 15 ML BOTTLE EACHEYE SCH ×4 (08:10→21:53)
[2023-05-20] MEDS: PHENOBARBITAL 32.4 MG TABLET GT SCH ×2 (08:10→21:54)
[2023-05-20] MEDS: BACLOFEN 20 MG TABLET GT SCH ×3 (08:10→21:54)
[2023-05-20] MEDS: BENZOYL PEROXIDE 10% GEL 60 GM TUBE TP SCH ×2 (08:11→21:54)
[2023-05-20] MEDS: REMEDY ESSENTIAL ZINC PASTE 113 GM TP SCH ×2 (08:11→21:54)
[2023-05-20] MEDS: HYDROGEN PEROXIDE 3% 118 ML BOTTLE TP SCH ×2 (09:00→19:11)
[2023-05-20] MEDS: LATANOPROST OPHT DROP 2.5 ML BOTTLE EACHEYE SCH (21:54)
[2023-05-20] MEDS: NUTRISOURCE FIBER 4 GM PACKET GT SCH (21:54)
[2023-05-20] MEDS: OMEGA-3 FATTY ACIDS/FISH OIL CAPSULE GT SCH (21:54)
[2023-05-21] VITALS (10 sets, daily range): TEMP 97.4–97.5; O2SAT 97–99
[2023-05-21] MEDS: IPRATROPIUM BROMIDE 0.5 MG/2.5 ML NEBU NEB SCH ×4 (00:35→19:15)
[2023-05-21] MEDS: ALBUTEROL SULFATE 2.5 MG/3 ML NEBU NEB SCH ×4 (00:35→19:15)
[2023-05-21] MEDS: DOXYCYCLINE HYCLATE 100 MG TABLET GT SCH (06:43)
[2023-05-21] MEDS: VALPROIC ACID 250 MG/5 ML LIQUID UDC GT SCH ×3 (06:43→22:00)
[2023-05-21] MEDS: ACIDOPHILUS/BULGARICUS CHEW TAB GT SCH ×3 (06:43→22:00)
[2023-05-21] MEDS: OMEPRAZOLE 20 MG CAPSULE.DR GT SCH (06:43)
[2023-05-21] MEDS: PHENOBARBITAL 32.4 MG TABLET GT SCH ×2 (08:45→20:12)
[2023-05-21] MEDS: POLYVINYL ALCOHOL OPHT DROPS 15 ML BOTTLE EACHEYE SCH ×4 (08:45→20:09)
[2023-05-21] MEDS: BACLOFEN 20 MG TABLET GT SCH ×3 (08:45→20:12)
[2023-05-21] MEDS: BENZOYL PEROXIDE 10% GEL 60 GM TUBE TP SCH ×2 (08:46→20:10)
[2023-05-21] MEDS: REMEDY ESSENTIAL ZINC PASTE 113 GM TP SCH ×2 (08:46→20:10)
[2023-05-21] MEDS: HYDROGEN PEROXIDE 3% 118 ML BOTTLE TP SCH ×2 (09:21→19:15)
[2023-05-21] MEDS: JEVITY 1.2 1000 ML LIQUID GT PRN (12:03)
[2023-05-21] MEDS: NUTRISOURCE FIBER 4 GM PACKET GT SCH (20:09)
[2023-05-21] MEDS: LATANOPROST OPHT DROP 2.5 ML BOTTLE EACHEYE SCH (20:09)
[2023-05-21] MEDS: OMEGA-3 FATTY ACIDS/FISH OIL CAPSULE GT SCH (20:09)
[2023-05-22] VITALS (10 sets, daily range): TEMP 98.1–98.3; O2SAT 97–99
[2023-05-22] MEDS: IPRATROPIUM BROMIDE 0.5 MG/2.5 ML NEBU NEB SCH ×4 (01:49→20:00)
[2023-05-22] MEDS: ALBUTEROL SULFATE 2.5 MG/3 ML NEBU NEB SCH ×4 (01:49→20:00)
[2023-05-22] MEDS: JEVITY 1.2 1000 ML LIQUID GT PRN (04:00)
[2023-05-22] MEDS: VALPROIC ACID 250 MG/5 ML LIQUID UDC GT SCH ×3 (06:30→22:10)
[2023-05-22] MEDS: ACIDOPHILUS/BULGARICUS CHEW TAB GT SCH ×3 (06:30→22:10)
[2023-05-22] MEDS: OMEPRAZOLE 20 MG CAPSULE.DR GT SCH (06:30)
[2023-05-22] MEDS: DOXYCYCLINE HYCLATE 100 MG TABLET GT SCH (06:31)
[2023-05-22] MEDS: HYDROGEN PEROXIDE 3% 118 ML BOTTLE TP SCH ×2 (08:56→21:04)
[2023-05-22] MEDS: POLYVINYL ALCOHOL OPHT DROPS 15 ML BOTTLE EACHEYE SCH ×4 (09:18→20:03)
[2023-05-22] MEDS: PHENOBARBITAL 32.4 MG TABLET GT SCH ×2 (09:19→20:03)
[2023-05-22] MEDS: BACLOFEN 20 MG TABLET GT SCH ×3 (09:19→20:03)
[2023-05-22] MEDS: BENZOYL PEROXIDE 10% GEL 60 GM TUBE TP SCH ×2 (09:20→20:03)
[2023-05-22] MEDS: REMEDY ESSENTIAL ZINC PASTE 113 GM TP SCH ×2 (09:21→20:03)
[2023-05-22] MEDS: LATANOPROST OPHT DROP 2.5 ML BOTTLE EACHEYE SCH (20:03)
[2023-05-22] MEDS: OMEGA-3 FATTY ACIDS/FISH OIL CAPSULE GT SCH (20:03)
[2023-05-22] MEDS: NUTRISOURCE FIBER 4 GM PACKET GT SCH (20:03)
[2023-05-23] VITALS (10 sets, daily range): TEMP 98.3–99.4; O2SAT 97–99
[2023-05-23] MEDS: IPRATROPIUM BROMIDE 0.5 MG/2.5 ML NEBU NEB SCH ×4 (01:47→19:33)
[2023-05-23] MEDS: ALBUTEROL SULFATE 2.5 MG/3 ML NEBU NEB SCH ×4 (01:47→19:33)
[2023-05-23] MEDS: JEVITY 1.2 1000 ML LIQUID GT PRN (01:56)
[2023-05-23] MEDS: ACIDOPHILUS/BULGARICUS CHEW TAB GT SCH ×3 (05:45→21:00)
[2023-05-23] MEDS: DOXYCYCLINE HYCLATE 100 MG TABLET GT SCH (05:45)
[2023-05-23] MEDS: OMEPRAZOLE 20 MG CAPSULE.DR GT SCH (05:45)
[2023-05-23] MEDS: VALPROIC ACID 250 MG/5 ML LIQUID UDC GT SCH ×3 (05:45→21:00)
[2023-05-23] MEDS: POLYVINYL ALCOHOL OPHT DROPS 15 ML BOTTLE EACHEYE SCH ×4 (08:30→20:59)
[2023-05-23] MEDS: REMEDY ESSENTIAL ZINC PASTE 113 GM TP SCH ×2 (08:32→21:00)
[2023-05-23] MEDS: BACLOFEN 20 MG TABLET GT SCH ×3 (08:37→20:59)
[2023-05-23] MEDS: PHENOBARBITAL 32.4 MG TABLET GT SCH ×2 (08:38→20:59)
[2023-05-23] MEDS: BENZOYL PEROXIDE 10% GEL 60 GM TUBE TP SCH ×2 (09:00→20:59)
[2023-05-23] MEDS: HYDROGEN PEROXIDE 3% 118 ML BOTTLE TP SCH ×2 (09:57→20:52)
[2023-05-23] MEDS: OMEGA-3 FATTY ACIDS/FISH OIL CAPSULE GT SCH (20:59)
[2023-05-23] MEDS: NUTRISOURCE FIBER 4 GM PACKET GT SCH (20:59)
[2023-05-23] MEDS: LATANOPROST OPHT DROP 2.5 ML BOTTLE EACHEYE SCH (20:59)
[2023-05-24] VITALS (10 sets, daily range): TEMP 97; O2SAT 98–99
[2023-05-24] MEDS: ALBUTEROL SULFATE 2.5 MG/3 ML NEBU NEB SCH ×4 (01:33→20:03)
[2023-05-24] MEDS: IPRATROPIUM BROMIDE 0.5 MG/2.5 ML NEBU NEB SCH ×4 (01:33→20:02)
[2023-05-24] MEDS: DOXYCYCLINE HYCLATE 100 MG TABLET GT SCH (06:52)
[2023-05-24] MEDS: VALPROIC ACID 250 MG/5 ML LIQUID UDC GT SCH ×3 (06:52→22:28)
[2023-05-24] MEDS: JEVITY 1.2 1000 ML LIQUID GT PRN ×2 (06:52→22:28)
[2023-05-24] MEDS: OMEPRAZOLE 20 MG CAPSULE.DR GT SCH (06:52)
[2023-05-24] MEDS: ACIDOPHILUS/BULGARICUS CHEW TAB GT SCH ×3 (06:52→22:28)
[2023-05-24] MEDS: HYDROGEN PEROXIDE 3% 118 ML BOTTLE TP SCH ×2 (08:09→20:03)
[2023-05-24] MEDS: POLYVINYL ALCOHOL OPHT DROPS 15 ML BOTTLE EACHEYE SCH ×4 (08:40→21:00)
[2023-05-24] MEDS: REMEDY ESSENTIAL ZINC PASTE 113 GM TP SCH ×2 (08:41→21:00)
[2023-05-24] MEDS: BACLOFEN 20 MG TABLET GT SCH ×3 (08:46→21:00)
[2023-05-24] MEDS: PHENOBARBITAL 32.4 MG TABLET GT SCH ×2 (08:46→21:00)
[2023-05-24] MEDS: BENZOYL PEROXIDE 10% GEL 60 GM TUBE TP SCH ×2 (08:47→21:00)
[2023-05-24] MEDS: OMEGA-3 FATTY ACIDS/FISH OIL CAPSULE GT SCH (21:00)
[2023-05-24] MEDS: LATANOPROST OPHT DROP 2.5 ML BOTTLE EACHEYE SCH (21:00)
[2023-05-24] MEDS: NUTRISOURCE FIBER 4 GM PACKET GT SCH (21:00)
[2023-05-25] VITALS (9 sets, daily range): TEMP 96.8–97.4; O2SAT 96–99
[2023-05-25] MEDS: ALBUTEROL SULFATE 2.5 MG/3 ML NEBU NEB SCH ×4 (01:25→19:11)
[2023-05-25] MEDS: IPRATROPIUM BROMIDE 0.5 MG/2.5 ML NEBU NEB SCH ×4 (01:25→19:11)
[2023-05-25] MEDS: ACIDOPHILUS/BULGARICUS CHEW TAB GT SCH ×3 (05:30→21:56)
[2023-05-25] MEDS: OMEPRAZOLE 20 MG CAPSULE.DR GT SCH (05:30)
[2023-05-25] MEDS: DOXYCYCLINE HYCLATE 100 MG TABLET GT SCH (05:30)
[2023-05-25] MEDS: VALPROIC ACID 250 MG/5 ML LIQUID UDC GT SCH ×3 (05:30→21:56)
[2023-05-25] MEDS: HYDROGEN PEROXIDE 3% 118 ML BOTTLE TP SCH ×2 (08:07→19:11)
[2023-05-25] MEDS: POLYVINYL ALCOHOL OPHT DROPS 15 ML BOTTLE EACHEYE SCH ×4 (08:16→21:53)
[2023-05-25] MEDS: PHENOBARBITAL 32.4 MG TABLET GT SCH ×2 (08:17→21:55)
[2023-05-25] MEDS: BENZOYL PEROXIDE 10% GEL 60 GM TUBE TP SCH ×2 (08:17→21:56)
[2023-05-25] MEDS: REMEDY ESSENTIAL ZINC PASTE 113 GM TP SCH ×2 (08:17→21:56)
[2023-05-25] MEDS: BACLOFEN 20 MG TABLET GT SCH ×3 (08:17→21:54)
[2023-05-25] MEDS: JEVITY 1.2 1000 ML LIQUID GT PRN (17:31)
[2023-05-25] MEDS: OMEGA-3 FATTY ACIDS/FISH OIL CAPSULE GT SCH (21:54)
[2023-05-25] MEDS: NUTRISOURCE FIBER 4 GM PACKET GT SCH (21:54)
[2023-05-25] MEDS: LATANOPROST OPHT DROP 2.5 ML BOTTLE EACHEYE SCH (21:54)
[2023-05-26] VITALS (10 sets, daily range): TEMP 97.2–98.8; O2SAT 97–99
[2023-05-26] MEDS: ALBUTEROL SULFATE 2.5 MG/3 ML NEBU NEB SCH ×4 (01:25→19:09)
[2023-05-26] MEDS: IPRATROPIUM BROMIDE 0.5 MG/2.5 ML NEBU NEB SCH ×4 (01:25→19:09)
[2023-05-26] MEDS: VALPROIC ACID 250 MG/5 ML LIQUID UDC GT SCH ×3 (05:22→21:33)
[2023-05-26] MEDS: DOXYCYCLINE HYCLATE 100 MG TABLET GT SCH (05:22)
[2023-05-26] MEDS: ACIDOPHILUS/BULGARICUS CHEW TAB GT SCH ×3 (05:22→21:33)
[2023-05-26] MEDS: OMEPRAZOLE 20 MG CAPSULE.DR GT SCH (05:22)
[2023-05-26] MEDS: HYDROGEN PEROXIDE 3% 118 ML BOTTLE TP SCH ×2 (08:33→19:09)
[2023-05-26] MEDS: POLYVINYL ALCOHOL OPHT DROPS 15 ML BOTTLE EACHEYE SCH ×4 (09:20→21:32)
[2023-05-26] MEDS: REMEDY ESSENTIAL ZINC PASTE 113 GM TP SCH ×2 (09:22→21:33)
[2023-05-26] MEDS: BENZOYL PEROXIDE 10% GEL 60 GM TUBE TP SCH ×2 (09:22→21:33)
[2023-05-26] MEDS: PHENOBARBITAL 32.4 MG TABLET GT SCH ×2 (09:26→21:33)
[2023-05-26] MEDS: BACLOFEN 20 MG TABLET GT SCH ×3 (09:28→21:33)
[2023-05-26] MEDS: JEVITY 1.2 1000 ML LIQUID GT PRN (19:12)
[2023-05-26] MEDS: OMEGA-3 FATTY ACIDS/FISH OIL CAPSULE GT SCH (21:33)
[2023-05-26] MEDS: LATANOPROST OPHT DROP 2.5 ML BOTTLE EACHEYE SCH (21:33)
[2023-05-26] MEDS: NUTRISOURCE FIBER 4 GM PACKET GT SCH (21:33)
[2023-05-27] VITALS (10 sets, daily range): BP systolic 105; BP diastolic 68; TEMP 97.4–98; O2SAT 97–99
[2023-05-27] MEDS: ALBUTEROL SULFATE 2.5 MG/3 ML NEBU NEB SCH ×4 (01:00→19:30)
[2023-05-27] MEDS: IPRATROPIUM BROMIDE 0.5 MG/2.5 ML NEBU NEB SCH ×4 (01:00→19:30)
[2023-05-27] MEDS: ACIDOPHILUS/BULGARICUS CHEW TAB GT SCH ×3 (05:33→21:09)
[2023-05-27] MEDS: DOXYCYCLINE HYCLATE 100 MG TABLET GT SCH (05:33)
[2023-05-27] MEDS: OMEPRAZOLE 20 MG CAPSULE.DR GT SCH (05:33)
[2023-05-27] MEDS: VALPROIC ACID 250 MG/5 ML LIQUID UDC GT SCH ×3 (05:33→21:09)
[2023-05-27] MEDS: POLYVINYL ALCOHOL OPHT DROPS 15 ML BOTTLE EACHEYE SCH ×4 (09:20→20:28)
[2023-05-27] MEDS: BACLOFEN 20 MG TABLET GT SCH ×3 (09:20→20:28)
[2023-05-27] MEDS: PHENOBARBITAL 32.4 MG TABLET GT SCH ×2 (09:20→20:28)
[2023-05-27] MEDS: BENZOYL PEROXIDE 10% GEL 60 GM TUBE TP SCH ×2 (09:21→20:29)
[2023-05-27] MEDS: REMEDY ESSENTIAL ZINC PASTE 113 GM TP SCH ×2 (09:21→20:30)
[2023-05-27] MEDS: HYDROGEN PEROXIDE 3% 118 ML BOTTLE TP SCH ×2 (09:54→21:11)
[2023-05-27] MEDS: LATANOPROST OPHT DROP 2.5 ML BOTTLE EACHEYE SCH (20:28)
[2023-05-27] MEDS: OMEGA-3 FATTY ACIDS/FISH OIL CAPSULE GT SCH (20:28)
[2023-05-27] MEDS: NUTRISOURCE FIBER 4 GM PACKET GT SCH (20:28)
[2023-05-28] VITALS (10 sets, daily range): TEMP 97.1–97.3; O2SAT 97–99
[2023-05-28] MEDS: IPRATROPIUM BROMIDE 0.5 MG/2.5 ML NEBU NEB SCH ×4 (01:43→19:06)
[2023-05-28] MEDS: ALBUTEROL SULFATE 2.5 MG/3 ML NEBU NEB SCH ×4 (01:43→19:06)
[2023-05-28] MEDS: ACIDOPHILUS/BULGARICUS CHEW TAB GT SCH ×3 (05:10→21:44)
[2023-05-28] MEDS: VALPROIC ACID 250 MG/5 ML LIQUID UDC GT SCH ×3 (05:10→21:43)
[2023-05-28] MEDS: OMEPRAZOLE 20 MG CAPSULE.DR GT SCH (05:10)
[2023-05-28] MEDS: DOXYCYCLINE HYCLATE 100 MG TABLET GT SCH (05:10)
[2023-05-28] MEDS: POLYVINYL ALCOHOL OPHT DROPS 15 ML BOTTLE EACHEYE SCH ×4 (08:28→21:42)
[2023-05-28] MEDS: PHENOBARBITAL 32.4 MG TABLET GT SCH ×2 (08:28→21:43)
[2023-05-28] MEDS: BENZOYL PEROXIDE 10% GEL 60 GM TUBE TP SCH ×2 (08:32→21:43)
[2023-05-28] MEDS: REMEDY ESSENTIAL ZINC PASTE 113 GM TP SCH ×2 (08:32→21:43)
[2023-05-28] MEDS: BACLOFEN 20 MG TABLET GT SCH ×3 (08:32→21:43)
[2023-05-28] MEDS: HYDROGEN PEROXIDE 3% 118 ML BOTTLE TP SCH ×2 (08:46→19:06)
[2023-05-28] MEDS: JEVITY 1.2 1000 ML LIQUID GT PRN (14:59)
[2023-05-28] MEDS: OMEGA-3 FATTY ACIDS/FISH OIL CAPSULE GT SCH (21:43)
[2023-05-28] MEDS: NUTRISOURCE FIBER 4 GM PACKET GT SCH (21:43)
[2023-05-28] MEDS: LATANOPROST OPHT DROP 2.5 ML BOTTLE EACHEYE SCH (21:43)
[2023-05-29] VITALS (10 sets, daily range): TEMP 97.2–97.8; O2SAT 97–99
[2023-05-29] MEDS: IPRATROPIUM BROMIDE 0.5 MG/2.5 ML NEBU NEB SCH ×4 (02:06→19:07)
[2023-05-29] MEDS: ALBUTEROL SULFATE 2.5 MG/3 ML NEBU NEB SCH ×4 (02:06→19:07)
[2023-05-29] MEDS: ACIDOPHILUS/BULGARICUS CHEW TAB GT SCH ×3 (06:48→21:10)
[2023-05-29] MEDS: OMEPRAZOLE 20 MG CAPSULE.DR GT SCH (06:48)
[2023-05-29] MEDS: VALPROIC ACID 250 MG/5 ML LIQUID UDC GT SCH ×3 (06:48→21:09)
[2023-05-29] MEDS: DOXYCYCLINE HYCLATE 100 MG TABLET GT SCH (06:48)
[2023-05-29] MEDS: HYDROGEN PEROXIDE 3% 118 ML BOTTLE TP SCH ×2 (07:20→19:07)
[2023-05-29] MEDS: REMEDY ESSENTIAL ZINC PASTE 113 GM TP SCH ×2 (09:18→20:47)
[2023-05-29] MEDS: BACLOFEN 20 MG TABLET GT SCH ×3 (09:18→20:47)
[2023-05-29] MEDS: BENZOYL PEROXIDE 10% GEL 60 GM TUBE TP SCH ×2 (09:18→20:47)
[2023-05-29] MEDS: POLYVINYL ALCOHOL OPHT DROPS 15 ML BOTTLE EACHEYE SCH ×4 (09:18→20:47)
[2023-05-29] MEDS: PHENOBARBITAL 32.4 MG TABLET GT SCH ×2 (09:18→20:47)
[2023-05-29] MEDS: JEVITY 1.2 1000 ML LIQUID GT PRN (13:09)
[2023-05-29] MEDS: LATANOPROST OPHT DROP 2.5 ML BOTTLE EACHEYE SCH (20:47)
[2023-05-29] MEDS: NUTRISOURCE FIBER 4 GM PACKET GT SCH (20:47)
[2023-05-29] MEDS: OMEGA-3 FATTY ACIDS/FISH OIL CAPSULE GT SCH (20:47)
[2023-05-30] VITALS (9 sets, daily range): TEMP 97.3–98; O2SAT 97–99
[2023-05-30] MEDS: IPRATROPIUM BROMIDE 0.5 MG/2.5 ML NEBU NEB SCH ×4 (00:40→19:22)
[2023-05-30] MEDS: ALBUTEROL SULFATE 2.5 MG/3 ML NEBU NEB SCH ×4 (00:40→19:22)
[2023-05-30] MEDS: VALPROIC ACID 250 MG/5 ML LIQUID UDC GT SCH ×3 (05:22→22:18)
[2023-05-30] MEDS: DOXYCYCLINE HYCLATE 100 MG TABLET GT SCH (05:22)
[2023-05-30] MEDS: OMEPRAZOLE 20 MG CAPSULE.DR GT SCH (05:22)
[2023-05-30] MEDS: ACIDOPHILUS/BULGARICUS CHEW TAB GT SCH ×3 (05:22→22:18)
[2023-05-30] MEDS: HYDROGEN PEROXIDE 3% 118 ML BOTTLE TP SCH ×2 (08:29→19:23)
[2023-05-30] MEDS: PHENOBARBITAL 32.4 MG TABLET GT SCH ×2 (09:05→20:46)
[2023-05-30] MEDS: BACLOFEN 20 MG TABLET GT SCH ×3 (09:05→20:46)
[2023-05-30] MEDS: POLYVINYL ALCOHOL OPHT DROPS 15 ML BOTTLE EACHEYE SCH ×4 (09:06→20:46)
[2023-05-30] MEDS: REMEDY ESSENTIAL ZINC PASTE 113 GM TP SCH ×2 (09:06→20:46)
[2023-05-30] MEDS: BENZOYL PEROXIDE 10% GEL 60 GM TUBE TP SCH ×2 (09:06→20:46)
[2023-05-30] MEDS: JEVITY 1.2 1000 ML LIQUID GT PRN (11:57)
[2023-05-30] MEDS: NUTRISOURCE FIBER 4 GM PACKET GT SCH (20:46)
[2023-05-30] MEDS: OMEGA-3 FATTY ACIDS/FISH OIL CAPSULE GT SCH (20:46)
[2023-05-30] MEDS: LATANOPROST OPHT DROP 2.5 ML BOTTLE EACHEYE SCH (20:46)
[2023-05-31] VITALS (10 sets, daily range): TEMP 97.4; O2SAT 98–99
[2023-05-31] MEDS: ALBUTEROL SULFATE 2.5 MG/3 ML NEBU NEB SCH ×4 (00:38→19:08)
[2023-05-31] MEDS: IPRATROPIUM BROMIDE 0.5 MG/2.5 ML NEBU NEB SCH ×4 (00:38→19:08)
[2023-05-31] MEDS: VALPROIC ACID 250 MG/5 ML LIQUID UDC GT SCH ×3 (05:23→22:08)
[2023-05-31] MEDS: OMEPRAZOLE 20 MG CAPSULE.DR GT SCH (05:23)
[2023-05-31] MEDS: ACIDOPHILUS/BULGARICUS CHEW TAB GT SCH ×3 (05:23→22:08)
[2023-05-31] MEDS: DOXYCYCLINE HYCLATE 100 MG TABLET GT SCH (05:23)
[2023-05-31] MEDS: HYDROGEN PEROXIDE 3% 118 ML BOTTLE TP SCH ×2 (07:30→19:08)
[2023-05-31] MEDS: POLYVINYL ALCOHOL OPHT DROPS 15 ML BOTTLE EACHEYE SCH ×4 (08:10→21:00)
[2023-05-31] MEDS: BACLOFEN 20 MG TABLET GT SCH ×3 (08:12→21:00)
[2023-05-31] MEDS: PHENOBARBITAL 32.4 MG TABLET GT SCH ×2 (08:15→21:00)
[2023-05-31] MEDS: BENZOYL PEROXIDE 10% GEL 60 GM TUBE TP SCH ×2 (08:16→21:00)
[2023-05-31] MEDS: REMEDY ESSENTIAL ZINC PASTE 113 GM TP SCH ×2 (08:16→21:00)
[2023-05-31] MEDS: LATANOPROST OPHT DROP 2.5 ML BOTTLE EACHEYE SCH (21:00)
[2023-05-31] MEDS: OMEGA-3 FATTY ACIDS/FISH OIL CAPSULE GT SCH (21:00)
[2023-05-31] MEDS: NUTRISOURCE FIBER 4 GM PACKET GT SCH (21:00)
[2023-05-31] MEDS: JEVITY 1.2 1000 ML LIQUID GT PRN (22:13)
[2023-06-01] VITALS (9 sets, daily range): TEMP 97.3–97.5; O2SAT 96–99
[2023-06-01] MEDS: IPRATROPIUM BROMIDE 0.5 MG/2.5 ML NEBU NEB SCH ×4 (00:42→19:31)
[2023-06-01] MEDS: ALBUTEROL SULFATE 2.5 MG/3 ML NEBU NEB SCH ×4 (00:42→19:31)
[2023-06-01] MEDS: ACIDOPHILUS/BULGARICUS CHEW TAB GT SCH ×3 (05:12→21:36)
[2023-06-01] MEDS: VALPROIC ACID 250 MG/5 ML LIQUID UDC GT SCH ×3 (05:12→21:36)
[2023-06-01] MEDS: DOXYCYCLINE HYCLATE 100 MG TABLET GT SCH (05:12)
[2023-06-01] MEDS: OMEPRAZOLE 20 MG CAPSULE.DR GT SCH (05:12)
[2023-06-01] MEDS: HYDROGEN PEROXIDE 3% 118 ML BOTTLE TP SCH ×2 (07:28→20:55)
[2023-06-01] MEDS: BACLOFEN 20 MG TABLET GT SCH ×3 (09:51→21:36)
[2023-06-01] MEDS: POLYVINYL ALCOHOL OPHT DROPS 15 ML BOTTLE EACHEYE SCH ×4 (09:51→21:35)
[2023-06-01] MEDS: BENZOYL PEROXIDE 10% GEL 60 GM TUBE TP SCH ×2 (09:51→21:36)
[2023-06-01] MEDS: PHENOBARBITAL 32.4 MG TABLET GT SCH ×2 (09:51→21:36)
[2023-06-01] MEDS: REMEDY ESSENTIAL ZINC PASTE 113 GM TP SCH ×2 (09:51→21:36)
[2023-06-01] MEDS: NUTRISOURCE FIBER 4 GM PACKET GT SCH (21:36)
[2023-06-01] MEDS: OMEGA-3 FATTY ACIDS/FISH OIL CAPSULE GT SCH (21:36)
[2023-06-01] MEDS: LATANOPROST OPHT DROP 2.5 ML BOTTLE EACHEYE SCH (21:36)
[2023-06-02] VITALS (10 sets, daily range): TEMP 97.6; O2SAT 97–99
[2023-06-02] MEDS: IPRATROPIUM BROMIDE 0.5 MG/2.5 ML NEBU NEB SCH ×4 (01:37→20:00)
[2023-06-02] MEDS: ALBUTEROL SULFATE 2.5 MG/3 ML NEBU NEB SCH ×4 (01:37→20:00)
[2023-06-02] MEDS: JEVITY 1.2 1000 ML LIQUID GT PRN ×2 (03:44→22:07)
[2023-06-02] MEDS: OMEPRAZOLE 20 MG CAPSULE.DR GT SCH (05:42)
[2023-06-02] MEDS: DOXYCYCLINE HYCLATE 100 MG TABLET GT SCH (05:42)
[2023-06-02] MEDS: ACIDOPHILUS/BULGARICUS CHEW TAB GT SCH ×3 (05:42→22:07)
[2023-06-02] MEDS: VALPROIC ACID 250 MG/5 ML LIQUID UDC GT SCH ×3 (05:42→22:07)
[2023-06-02] MEDS: HYDROGEN PEROXIDE 3% 118 ML BOTTLE TP SCH ×2 (08:15→21:37)
[2023-06-02] MEDS: POLYVINYL ALCOHOL OPHT DROPS 15 ML BOTTLE EACHEYE SCH ×4 (09:32→21:00)
[2023-06-02] MEDS: PHENOBARBITAL 32.4 MG TABLET GT SCH ×2 (09:44→21:00)
[2023-06-02] MEDS: BACLOFEN 20 MG TABLET GT SCH ×3 (09:44→21:00)
[2023-06-02] MEDS: REMEDY ESSENTIAL ZINC PASTE 113 GM TP SCH ×2 (09:49→21:00)
[2023-06-02] MEDS: BENZOYL PEROXIDE 10% GEL 60 GM TUBE TP SCH ×2 (09:49→21:00)
[2023-06-02] MEDS: OMEGA-3 FATTY ACIDS/FISH OIL CAPSULE GT SCH (21:00)
[2023-06-02] MEDS: LATANOPROST OPHT DROP 2.5 ML BOTTLE EACHEYE SCH (21:00)
[2023-06-02] MEDS: NUTRISOURCE FIBER 4 GM PACKET GT SCH (21:00)
[2023-06-03] VITALS (9 sets, daily range): TEMP 97–98.2; O2SAT 97–99
[2023-06-03] MEDS: ALBUTEROL SULFATE 2.5 MG/3 ML NEBU NEB SCH ×4 (01:49→19:07)
[2023-06-03] MEDS: IPRATROPIUM BROMIDE 0.5 MG/2.5 ML NEBU NEB SCH ×4 (01:49→19:07)
[2023-06-03] MEDS: VALPROIC ACID 250 MG/5 ML LIQUID UDC GT SCH ×3 (05:37→21:18)
[2023-06-03] MEDS: OMEPRAZOLE 20 MG CAPSULE.DR GT SCH (05:38)
[2023-06-03] MEDS: DOXYCYCLINE HYCLATE 100 MG TABLET GT SCH (05:38)
[2023-06-03] MEDS: ACIDOPHILUS/BULGARICUS CHEW TAB GT SCH ×3 (05:38→21:18)
[2023-06-03] MEDS: HYDROGEN PEROXIDE 3% 118 ML BOTTLE TP SCH ×2 (07:52→19:07)
[2023-06-03] MEDS: POLYVINYL ALCOHOL OPHT DROPS 15 ML BOTTLE EACHEYE SCH ×4 (08:35→21:18)
[2023-06-03] MEDS: BENZOYL PEROXIDE 10% GEL 60 GM TUBE TP SCH ×2 (08:35→21:18)
[2023-06-03] MEDS: REMEDY ESSENTIAL ZINC PASTE 113 GM TP SCH ×2 (08:35→21:18)
[2023-06-03] MEDS: PHENOBARBITAL 32.4 MG TABLET GT SCH ×2 (08:38→21:18)
[2023-06-03] MEDS: BACLOFEN 20 MG TABLET GT SCH ×3 (08:38→21:18)
[2023-06-03] MEDS ORDERED: TUBERCULIN,PURIF.PROT.DERIV. 5 TU/0.1 ML TEST ID SCH (12:00)
[2023-06-03] MEDS: LATANOPROST OPHT DROP 2.5 ML BOTTLE EACHEYE SCH (21:18)
[2023-06-03] MEDS: OMEGA-3 FATTY ACIDS/FISH OIL CAPSULE GT SCH (21:18)
[2023-06-03] MEDS: NUTRISOURCE FIBER 4 GM PACKET GT SCH (21:18)
[2023-06-04] VITALS (11 sets, daily range): TEMP 97.1–97.7; O2SAT 97–99
[2023-06-04] MEDS: IPRATROPIUM BROMIDE 0.5 MG/2.5 ML NEBU NEB SCH ×4 (00:46→20:00)
[2023-06-04] MEDS: ALBUTEROL SULFATE 2.5 MG/3 ML NEBU NEB SCH ×4 (00:46→20:00)
[2023-06-04] MEDS: JEVITY 1.2 1000 ML LIQUID GT PRN (00:53)
[2023-06-04] MEDS: VALPROIC ACID 250 MG/5 ML LIQUID UDC GT SCH ×3 (05:23→22:12)
[2023-06-04] MEDS: DOXYCYCLINE HYCLATE 100 MG TABLET GT SCH (05:23)
[2023-06-04] MEDS: ACIDOPHILUS/BULGARICUS CHEW TAB GT SCH ×3 (05:23→22:13)
[2023-06-04] MEDS: OMEPRAZOLE 20 MG CAPSULE.DR GT SCH (05:23)
[2023-06-04] MEDS: POLYVINYL ALCOHOL OPHT DROPS 15 ML BOTTLE EACHEYE SCH ×4 (08:21→20:00)
[2023-06-04] MEDS: REMEDY ESSENTIAL ZINC PASTE 113 GM TP SCH ×2 (08:21→20:04)
[2023-06-04] MEDS: PHENOBARBITAL 32.4 MG TABLET GT SCH ×2 (08:21→20:04)
[2023-06-04] MEDS: BENZOYL PEROXIDE 10% GEL 60 GM TUBE TP SCH ×2 (08:21→20:04)
[2023-06-04] MEDS: BACLOFEN 20 MG TABLET GT SCH ×3 (08:21→20:04)
[2023-06-04] MEDS: HYDROGEN PEROXIDE 3% 118 ML BOTTLE TP SCH ×2 (09:08→21:19)
[2023-06-04] MEDS: OMEGA-3 FATTY ACIDS/FISH OIL CAPSULE GT SCH (20:00)
[2023-06-04] MEDS: NUTRISOURCE FIBER 4 GM PACKET GT SCH (20:00)
[2023-06-04] MEDS: LATANOPROST OPHT DROP 2.5 ML BOTTLE EACHEYE SCH (20:00)
[2023-06-05] VITALS (10 sets, daily range): TEMP 98.2–98.6; O2SAT 97–99
[2023-06-05] MEDS: IPRATROPIUM BROMIDE 0.5 MG/2.5 ML NEBU NEB SCH ×4 (01:02→19:40)
[2023-06-05] MEDS: ALBUTEROL SULFATE 2.5 MG/3 ML NEBU NEB SCH ×4 (01:02→19:40)
[2023-06-05] MEDS: JEVITY 1.2 1000 ML LIQUID GT PRN ×2 (02:00→20:16)
[2023-06-05] MEDS: ACIDOPHILUS/BULGARICUS CHEW TAB GT SCH ×3 (06:16→22:32)
[2023-06-05] MEDS: VALPROIC ACID 250 MG/5 ML LIQUID UDC GT SCH ×3 (06:16→22:32)
[2023-06-05] MEDS: OMEPRAZOLE 20 MG CAPSULE.DR GT SCH (06:16)
[2023-06-05] MEDS: DOXYCYCLINE HYCLATE 100 MG TABLET GT SCH (06:16)
[2023-06-05] MEDS: HYDROGEN PEROXIDE 3% 118 ML BOTTLE TP SCH ×2 (07:11→20:54)
[2023-06-05] MEDS: BACLOFEN 20 MG TABLET GT SCH ×3 (09:11→20:09)
[2023-06-05] MEDS: BENZOYL PEROXIDE 10% GEL 60 GM TUBE TP SCH ×2 (09:11→20:10)
[2023-06-05] MEDS: REMEDY ESSENTIAL ZINC PASTE 113 GM TP SCH ×2 (09:11→20:10)
[2023-06-05] MEDS: POLYVINYL ALCOHOL OPHT DROPS 15 ML BOTTLE EACHEYE SCH ×4 (09:11→20:08)
[2023-06-05] MEDS: PHENOBARBITAL 32.4 MG TABLET GT SCH ×2 (09:11→20:10)
[2023-06-05] MEDS ORDERED: TUBERCULIN,PURIF.PROT.DERIV. 5 TU/0.1 ML TEST ID ONE (14:00)
[2023-06-05] MEDS: LATANOPROST OPHT DROP 2.5 ML BOTTLE EACHEYE SCH (20:08)
[2023-06-05] MEDS: OMEGA-3 FATTY ACIDS/FISH OIL CAPSULE GT SCH (20:09)
[2023-06-05] MEDS: NUTRISOURCE FIBER 4 GM PACKET GT SCH (20:09)
[2023-06-06] VITALS (13 sets, daily range): TEMP 98–100.1; O2SAT 97–99
[2023-06-06] MEDS: ALBUTEROL SULFATE 2.5 MG/3 ML NEBU NEB SCH ×4 (01:33→19:17)
[2023-06-06] MEDS: IPRATROPIUM BROMIDE 0.5 MG/2.5 ML NEBU NEB SCH ×4 (01:33→19:17)
[2023-06-06] MEDS: ACETAMINOPHEN 650 MG/20 ML UDC- SA PATIENTS-PAIN ONLY GT PRN (03:00)
[2023-06-06] MEDS: VALPROIC ACID 250 MG/5 ML LIQUID UDC GT SCH ×3 (06:11→22:26)
[2023-06-06] MEDS: ACIDOPHILUS/BULGARICUS CHEW TAB GT SCH ×3 (06:11→22:26)
[2023-06-06] MEDS: OMEPRAZOLE 20 MG CAPSULE.DR GT SCH (06:11)
[2023-06-06] MEDS: DOXYCYCLINE HYCLATE 100 MG TABLET GT SCH (06:12)
[2023-06-06] MEDS: PHENOBARBITAL 32.4 MG TABLET GT SCH ×2 (09:05→20:17)
[2023-06-06] MEDS: REMEDY ESSENTIAL ZINC PASTE 113 GM TP SCH ×2 (09:05→20:18)
[2023-06-06] MEDS: POLYVINYL ALCOHOL OPHT DROPS 15 ML BOTTLE EACHEYE SCH ×4 (09:05→20:15)
[2023-06-06] MEDS: BENZOYL PEROXIDE 10% GEL 60 GM TUBE TP SCH ×2 (09:05→20:18)
[2023-06-06] MEDS: BACLOFEN 20 MG TABLET GT SCH ×3 (09:05→20:16)
[2023-06-06] MEDS: HYDROGEN PEROXIDE 3% 118 ML BOTTLE TP SCH ×2 (09:33→21:11)
[2023-06-06] MEDS: LATANOPROST OPHT DROP 2.5 ML BOTTLE EACHEYE SCH (20:15)
[2023-06-06] MEDS: OMEGA-3 FATTY ACIDS/FISH OIL CAPSULE GT SCH (20:16)
[2023-06-06] MEDS: NUTRISOURCE FIBER 4 GM PACKET GT SCH (20:17)
[2023-06-07] VITALS (9 sets, daily range): TEMP 98–98.8; O2SAT 97–99
[2023-06-07] MEDS: JEVITY 1.2 1000 ML LIQUID GT PRN ×2 (00:45→18:47)
[2023-06-07] MEDS: OMEPRAZOLE 20 MG CAPSULE.DR GT SCH (05:49)
[2023-06-07] MEDS: ACIDOPHILUS/BULGARICUS CHEW TAB GT SCH ×3 (05:49→21:06)
[2023-06-07] MEDS: VALPROIC ACID 250 MG/5 ML LIQUID UDC GT SCH ×3 (05:49→21:06)
[2023-06-07] MEDS: DOXYCYCLINE HYCLATE 100 MG TABLET GT SCH (05:57)
[2023-06-07] MEDS: ALBUTEROL SULFATE 2.5 MG/3 ML NEBU NEB SCH ×3 (07:35→19:52)
[2023-06-07] MEDS: IPRATROPIUM BROMIDE 0.5 MG/2.5 ML NEBU NEB SCH ×3 (07:35→19:52)
[2023-06-07] MEDS: POLYVINYL ALCOHOL OPHT DROPS 15 ML BOTTLE EACHEYE SCH ×4 (08:33→21:05)
[2023-06-07] MEDS: BACLOFEN 20 MG TABLET GT SCH ×3 (08:33→21:06)
[2023-06-07] MEDS: PHENOBARBITAL 32.4 MG TABLET GT SCH ×2 (08:34→21:06)
[2023-06-07] MEDS: BENZOYL PEROXIDE 10% GEL 60 GM TUBE TP SCH ×2 (08:35→21:06)
[2023-06-07] MEDS: REMEDY ESSENTIAL ZINC PASTE 113 GM TP SCH ×2 (08:36→21:06)
[2023-06-07] MEDS: HYDROGEN PEROXIDE 3% 118 ML BOTTLE TP SCH ×2 (09:00→21:06)
[2023-06-07] MEDS: LATANOPROST OPHT DROP 2.5 ML BOTTLE EACHEYE SCH (21:05)
[2023-06-07] MEDS: NUTRISOURCE FIBER 4 GM PACKET GT SCH (21:06)
[2023-06-07] MEDS: OMEGA-3 FATTY ACIDS/FISH OIL CAPSULE GT SCH (21:06)
[2023-06-08] VITALS (10 sets, daily range): TEMP 97.4–98.9; O2SAT 97–99
[2023-06-08] MEDS: ALBUTEROL SULFATE 2.5 MG/3 ML NEBU NEB SCH ×4 (01:09→20:14)
[2023-06-08] MEDS: IPRATROPIUM BROMIDE 0.5 MG/2.5 ML NEBU NEB SCH ×4 (01:09→20:14)
[2023-06-08] MEDS: VALPROIC ACID 250 MG/5 ML LIQUID UDC GT SCH ×3 (05:26→21:36)
[2023-06-08] MEDS: ACIDOPHILUS/BULGARICUS CHEW TAB GT SCH ×3 (05:26→21:33)
[2023-06-08] MEDS: DOXYCYCLINE HYCLATE 100 MG TABLET GT SCH (05:27)
[2023-06-08] MEDS: OMEPRAZOLE 20 MG CAPSULE.DR GT SCH (05:27)
[2023-06-08] MEDS: HYDROGEN PEROXIDE 3% 118 ML BOTTLE TP SCH ×2 (08:17→20:14)
[2023-06-08] MEDS: BENZOYL PEROXIDE 10% GEL 60 GM TUBE TP SCH ×2 (08:39→21:30)
[2023-06-08] MEDS: POLYVINYL ALCOHOL OPHT DROPS 15 ML BOTTLE EACHEYE SCH ×4 (08:39→21:22)
[2023-06-08] MEDS: PHENOBARBITAL 32.4 MG TABLET GT SCH ×2 (08:39→21:29)
[2023-06-08] MEDS: BACLOFEN 20 MG TABLET GT SCH ×3 (08:39→21:29)
[2023-06-08] MEDS: REMEDY ESSENTIAL ZINC PASTE 113 GM TP SCH ×2 (08:40→21:30)
[2023-06-08] MEDS: LATANOPROST OPHT DROP 2.5 ML BOTTLE EACHEYE SCH (21:22)
[2023-06-08] MEDS: OMEGA-3 FATTY ACIDS/FISH OIL CAPSULE GT SCH (21:22)
[2023-06-08] MEDS: NUTRISOURCE FIBER 4 GM PACKET GT SCH (21:29)
[2023-06-09] VITALS (10 sets, daily range): TEMP 97.2–97.9; O2SAT 97–99
[2023-06-09] MEDS: IPRATROPIUM BROMIDE 0.5 MG/2.5 ML NEBU NEB SCH ×4 (01:30→19:19)
[2023-06-09] MEDS: ALBUTEROL SULFATE 2.5 MG/3 ML NEBU NEB SCH ×4 (01:30→19:19)
[2023-06-09] MEDS: OMEPRAZOLE 20 MG CAPSULE.DR GT SCH (06:13)
[2023-06-09] MEDS: VALPROIC ACID 250 MG/5 ML LIQUID UDC GT SCH ×3 (06:13→22:14)
[2023-06-09] MEDS: ACIDOPHILUS/BULGARICUS CHEW TAB GT SCH ×3 (06:13→22:10)
[2023-06-09] MEDS: DOXYCYCLINE HYCLATE 100 MG TABLET GT SCH (06:14)
[2023-06-09] MEDS: POLYVINYL ALCOHOL OPHT DROPS 15 ML BOTTLE EACHEYE SCH ×4 (08:48→21:00)
[2023-06-09] MEDS: PHENOBARBITAL 32.4 MG TABLET GT SCH ×2 (08:48→21:33)
[2023-06-09] MEDS: BACLOFEN 20 MG TABLET GT SCH ×3 (08:48→21:00)
[2023-06-09] MEDS: REMEDY ESSENTIAL ZINC PASTE 113 GM TP SCH ×2 (08:49→21:00)
[2023-06-09] MEDS: BENZOYL PEROXIDE 10% GEL 60 GM TUBE TP SCH ×2 (08:49→21:00)
[2023-06-09] MEDS: HYDROGEN PEROXIDE 3% 118 ML BOTTLE TP SCH ×2 (09:08→19:20)
[2023-06-09] MEDS: JEVITY 1.2 1000 ML LIQUID GT PRN (14:46)
[2023-06-09] MEDS: OMEGA-3 FATTY ACIDS/FISH OIL CAPSULE GT SCH (21:00)
[2023-06-09] MEDS: LATANOPROST OPHT DROP 2.5 ML BOTTLE EACHEYE SCH (21:00)
[2023-06-09] MEDS: NUTRISOURCE FIBER 4 GM PACKET GT SCH (21:00)
[2023-06-10] VITALS (9 sets, daily range): TEMP 97–98.1; O2SAT 97–99
[2023-06-10] MEDS: ALBUTEROL SULFATE 2.5 MG/3 ML NEBU NEB SCH ×4 (01:03→19:23)
[2023-06-10] MEDS: IPRATROPIUM BROMIDE 0.5 MG/2.5 ML NEBU NEB SCH ×4 (01:03→19:23)
[2023-06-10] MEDS: VALPROIC ACID 250 MG/5 ML LIQUID UDC GT SCH ×3 (06:52→22:00)
[2023-06-10] MEDS: ACIDOPHILUS/BULGARICUS CHEW TAB GT SCH ×3 (06:53→22:00)
[2023-06-10] MEDS: OMEPRAZOLE 20 MG CAPSULE.DR GT SCH (06:55)
[2023-06-10] MEDS: DOXYCYCLINE HYCLATE 100 MG TABLET GT SCH (06:56)
[2023-06-10] MEDS: HYDROGEN PEROXIDE 3% 118 ML BOTTLE TP SCH ×2 (09:00→19:23)
[2023-06-10] MEDS: REMEDY ESSENTIAL ZINC PASTE 113 GM TP SCH ×2 (09:06→20:15)
[2023-06-10] MEDS: POLYVINYL ALCOHOL OPHT DROPS 15 ML BOTTLE EACHEYE SCH ×4 (09:06→20:13)
[2023-06-10] MEDS: BACLOFEN 20 MG TABLET GT SCH ×3 (09:06→20:13)
[2023-06-10] MEDS: BENZOYL PEROXIDE 10% GEL 60 GM TUBE TP SCH ×2 (09:06→20:15)
[2023-06-10] MEDS: PHENOBARBITAL 32.4 MG TABLET GT SCH ×2 (09:06→20:15)
[2023-06-10] MEDS: JEVITY 1.2 1000 ML LIQUID GT PRN (11:27)
[2023-06-10] MEDS: LATANOPROST OPHT DROP 2.5 ML BOTTLE EACHEYE SCH (20:13)
[2023-06-10] MEDS: OMEGA-3 FATTY ACIDS/FISH OIL CAPSULE GT SCH (20:13)
[2023-06-10] MEDS: NUTRISOURCE FIBER 4 GM PACKET GT SCH (20:15)
[2023-06-11] VITALS (12 sets, daily range): TEMP 99.3–100.6; O2SAT 97–99
[2023-06-11] MEDS: ALBUTEROL SULFATE 2.5 MG/3 ML NEBU NEB SCH ×4 (01:26→19:19)
[2023-06-11] MEDS: IPRATROPIUM BROMIDE 0.5 MG/2.5 ML NEBU NEB SCH ×4 (01:26→19:19)
[2023-06-11] MEDS: ACIDOPHILUS/BULGARICUS CHEW TAB GT SCH ×3 (05:18→21:28)
[2023-06-11] MEDS: DOXYCYCLINE HYCLATE 100 MG TABLET GT SCH (05:18)
[2023-06-11] MEDS: OMEPRAZOLE 20 MG CAPSULE.DR GT SCH (05:18)
[2023-06-11] MEDS: VALPROIC ACID 250 MG/5 ML LIQUID UDC GT SCH ×3 (05:18→21:28)
[2023-06-11] MEDS: POLYVINYL ALCOHOL OPHT DROPS 15 ML BOTTLE EACHEYE SCH ×4 (08:53→20:14)
[2023-06-11] MEDS: HYDROGEN PEROXIDE 3% 118 ML BOTTLE TP SCH ×2 (08:55→19:19)
[2023-06-11] MEDS: BACLOFEN 20 MG TABLET GT SCH ×3 (08:59→20:14)
[2023-06-11] MEDS: PHENOBARBITAL 32.4 MG TABLET GT SCH ×2 (08:59→20:15)
[2023-06-11] MEDS: BENZOYL PEROXIDE 10% GEL 60 GM TUBE TP SCH ×2 (09:00→20:15)
[2023-06-11] MEDS: REMEDY ESSENTIAL ZINC PASTE 113 GM TP SCH ×2 (09:00→20:15)
[2023-06-11] MEDS: OMEGA-3 FATTY ACIDS/FISH OIL CAPSULE GT SCH (20:14)
[2023-06-11] MEDS: NUTRISOURCE FIBER 4 GM PACKET GT SCH (20:14)
[2023-06-11] MEDS: LATANOPROST OPHT DROP 2.5 ML BOTTLE EACHEYE SCH (20:14)
[2023-06-11] MEDS: ACETAMINOPHEN 650 MG/20 ML UDC- SA PATIENTS-PAIN ONLY GT PRN (20:15)
[2023-06-12] VITALS (11 sets, daily range): TEMP 97.5–99.4; O2SAT 97–99
[2023-06-12] MEDS: JEVITY 1.2 1000 ML LIQUID GT PRN ×2 (00:55→23:57)
[2023-06-12] MEDS: IPRATROPIUM BROMIDE 0.5 MG/2.5 ML NEBU NEB SCH ×4 (01:26→19:17)
[2023-06-12] MEDS: ALBUTEROL SULFATE 2.5 MG/3 ML NEBU NEB SCH ×4 (01:26→19:17)
[2023-06-12] MEDS: DOXYCYCLINE HYCLATE 100 MG TABLET GT SCH (05:05)
[2023-06-12] MEDS: ACIDOPHILUS/BULGARICUS CHEW TAB GT SCH ×3 (05:05→21:48)
[2023-06-12] MEDS: VALPROIC ACID 250 MG/5 ML LIQUID UDC GT SCH ×3 (05:05→21:48)
[2023-06-12] MEDS: OMEPRAZOLE 20 MG CAPSULE.DR GT SCH (05:05)
[2023-06-12] MEDS: BENZOYL PEROXIDE 10% GEL 60 GM TUBE TP SCH ×2 (09:00→21:48)
[2023-06-12] MEDS: BACLOFEN 20 MG TABLET GT SCH ×3 (09:00→21:47)
[2023-06-12] MEDS: REMEDY ESSENTIAL ZINC PASTE 113 GM TP SCH ×2 (09:00→21:48)
[2023-06-12] MEDS: PHENOBARBITAL 32.4 MG TABLET GT SCH ×2 (09:00→21:48)
[2023-06-12] MEDS: HYDROGEN PEROXIDE 3% 118 ML BOTTLE TP SCH ×2 (09:00→19:17)
[2023-06-12] MEDS: POLYVINYL ALCOHOL OPHT DROPS 15 ML BOTTLE EACHEYE SCH ×4 (09:00→21:47)
[2023-06-12 11:43] LABS: *CLARITY,URINE SLIGHTLY CLOUDY (CLEAR); *COLOR,URINE YELLOW (YELLOW); *PROTEIN,URINE 3+ (NEGATIVE)
[2023-06-12 11:44] LABS: *BILIRUBIN,URIN NEGATIVE (NEGATIVE); *BLOOD, URINE 3+ (NEGATIVE); *KETONES,URINE NEGATIVE (NEGATIVE); LEUKOCYTE ESTERASE ,URINE 3+ (NEGATIVE); NITRITE, URINE POSITIVE (NEGATIVE); UGLUCOSE NEGATIVE (NEGATIVE)
[2023-06-12 11:56] LABS: RBC,URINE TNTC /HPF (0-3)
[2023-06-12 11:57] LABS: BACTERIA,URINE MANY /HPF (NONE SEEN); SQUAMOUS EPITHELIAL CELL,UR FEW /HPF (NONE SEEN); WBC,URINE TNTC /HPF (0-3)
[2023-06-12 13:16] LABS: BASOPHILS % (AUTO) 0.3 % (0.0-2.0); EOSINOPHILS # (AUTO) 0.1 K/uL (0.0-0.7); EOSINOPHILS % (AUTO) 1.7 % (0.0-7.0); HEMATOCRIT 38.3 % (36.7-47.1); HEMOGLOBIN 12.8 g/dL (12.5-16.3); LYMPHOCYTES # (AUTO) 1.1 K/uL (0.8-4.8); LYMPHOCYTES % (AUTO) 18.7 % (20.5-51.5); MEAN CORPUSCULAR HEMOGLOBIN 30.9 uug (23.8-33.4); MEAN CORPUSCULAR HGB CONC 34 g/dL (32.5-36.3); MEAN CORPUSCULAR VOLUME 92.2 fL (73.0-96.2); MONOCYTES # (AUTO) 0.8 K/uL (0.1-1.30); MONOCYTES % (AUTO) 12.8 % (0.0-11.0); NEUTROPHILS % (AUTO) 66.5 % (38.5-71.5); PLATELET COUNT (AUTO) 190 K/uL (152-348); RED BLOOD CELL COUNT(AUTO) 4.15 MIL/uL (4.06-5.63); RED CELL DISTRIBUTION WIDTH 15.3 % (12.1-16.2)
[2023-06-12 13:24] LABS: DIFFERENTIAL COMMENT 1
[2023-06-12 13:30] LABS: ALANINE AMINOTRANSFERASE 13 U/L (16-63); ALKALINE PHOSPHATASE 119 U/L (50-136); ASPARTATE AMINOTRANSFERASE 6 U/L (15-37); BILIRUBIN,TOTAL 0.5 mg/dL (0.2-1.0); CARBON DIOXIDE 28 mmol/L (21-32); CHLORIDE 100 mmol/L (98-107); GLUCOSE 176 mg/dL (74-106); POTASSIUM 4.1 mmol/L (3.5-5.1); SODIUM SERUM 136 mmol/L (136-145); TOTAL PROTEIN, SERUM 7.5 g/dL (6.4-8.2); UREA NITROGEN, BLOOD 11 mg/dL (7-18)
[2023-06-12 13:39] LABS: CREATININE < 0.2 mg/dL (0.6-1.3)
[2023-06-12] MEDS: MEROPENEM 1 G in IV NORMAL SALINE 100 ML IV SCH ×2 (16:25→21:57)
[2023-06-12] MEDS: OMEGA-3 FATTY ACIDS/FISH OIL CAPSULE GT SCH (21:47)
[2023-06-12] MEDS: LATANOPROST OPHT DROP 2.5 ML BOTTLE EACHEYE SCH (21:47)
[2023-06-12] MEDS: NUTRISOURCE FIBER 4 GM PACKET GT SCH (21:48)
[2023-06-12] MEDS: NORMAL SALINE FLUSH 10 ML DISP.SYRIN IV SCH (21:57)
[2023-06-13] VITALS (10 sets, daily range): TEMP 98.6; O2SAT 97–99
[2023-06-13] MEDS: IPRATROPIUM BROMIDE 0.5 MG/2.5 ML NEBU NEB SCH ×4 (00:32→19:30)
[2023-06-13] MEDS: ALBUTEROL SULFATE 2.5 MG/3 ML NEBU NEB SCH ×4 (00:32→19:30)
[2023-06-13] MEDS: DOXYCYCLINE HYCLATE 100 MG TABLET GT SCH (05:18)
[2023-06-13] MEDS: OMEPRAZOLE 20 MG CAPSULE.DR GT SCH (05:18)
[2023-06-13] MEDS: ACIDOPHILUS/BULGARICUS CHEW TAB GT SCH ×3 (05:18→21:51)
[2023-06-13] MEDS: VALPROIC ACID 250 MG/5 ML LIQUID UDC GT SCH ×3 (05:18→21:51)
[2023-06-13] MEDS: MEROPENEM 1 G in IV NORMAL SALINE 100 ML IV SCH ×3 (05:31→22:03)
[2023-06-13] MEDS: HYDROGEN PEROXIDE 3% 118 ML BOTTLE TP SCH ×2 (09:00→20:42)
[2023-06-13] MEDS: POLYVINYL ALCOHOL OPHT DROPS 15 ML BOTTLE EACHEYE SCH ×4 (09:50→21:51)
[2023-06-13] MEDS: PHENOBARBITAL 32.4 MG TABLET GT SCH ×2 (09:51→21:51)
[2023-06-13] MEDS: BACLOFEN 20 MG TABLET GT SCH ×3 (09:51→21:51)
[2023-06-13] MEDS: NORMAL SALINE FLUSH 10 ML DISP.SYRIN IV SCH ×2 (09:53→21:00)
[2023-06-13] MEDS: BENZOYL PEROXIDE 10% GEL 60 GM TUBE TP SCH ×2 (09:53→21:51)
[2023-06-13] MEDS: REMEDY ESSENTIAL ZINC PASTE 113 GM TP SCH ×2 (09:54→21:51)
[2023-06-13] MEDS: JEVITY 1.2 1000 ML LIQUID GT PRN (18:58)
[2023-06-13] MEDS: NUTRISOURCE FIBER 4 GM PACKET GT SCH (21:51)
[2023-06-13] MEDS: LATANOPROST OPHT DROP 2.5 ML BOTTLE EACHEYE SCH (21:51)
[2023-06-13] MEDS: OMEGA-3 FATTY ACIDS/FISH OIL CAPSULE GT SCH (21:51)
[2023-06-14] VITALS (11 sets, daily range): TEMP 94.4–98.1; O2SAT 97–99
[2023-06-14] MEDS: IPRATROPIUM BROMIDE 0.5 MG/2.5 ML NEBU NEB SCH ×4 (02:08→22:29)
[2023-06-14] MEDS: ALBUTEROL SULFATE 2.5 MG/3 ML NEBU NEB SCH ×4 (02:09→22:30)
[2023-06-14] MEDS: VALPROIC ACID 250 MG/5 ML LIQUID UDC GT SCH ×3 (05:30→21:39)
[2023-06-14] MEDS: OMEPRAZOLE 20 MG CAPSULE.DR GT SCH (05:30)
[2023-06-14] MEDS: DOXYCYCLINE HYCLATE 100 MG TABLET GT SCH (05:30)
[2023-06-14] MEDS: ACIDOPHILUS/BULGARICUS CHEW TAB GT SCH ×3 (05:30→21:39)
[2023-06-14] MEDS: MEROPENEM 1 G in IV NORMAL SALINE 100 ML IV SCH ×3 (05:35→21:50)
[2023-06-14] MEDS: HYDROGEN PEROXIDE 3% 118 ML BOTTLE TP SCH ×2 (07:07→22:31)
[2023-06-14] MEDS: POLYVINYL ALCOHOL OPHT DROPS 15 ML BOTTLE EACHEYE SCH ×4 (08:50→21:38)
[2023-06-14] MEDS: BACLOFEN 20 MG TABLET GT SCH ×3 (08:55→21:39)
[2023-06-14] MEDS: REMEDY ESSENTIAL ZINC PASTE 113 GM TP SCH ×2 (08:55→21:39)
[2023-06-14] MEDS: PHENOBARBITAL 32.4 MG TABLET GT SCH ×2 (08:55→21:39)
[2023-06-14] MEDS: BENZOYL PEROXIDE 10% GEL 60 GM TUBE TP SCH ×2 (08:55→21:39)
[2023-06-14] MEDS: NORMAL SALINE FLUSH 10 ML DISP.SYRIN IV SCH ×2 (09:00→21:50)
[2023-06-14] MEDS: JEVITY 1.2 1000 ML LIQUID GT PRN (13:18)
[2023-06-14] MEDS: OMEGA-3 FATTY ACIDS/FISH OIL CAPSULE GT SCH (21:39)
[2023-06-14] MEDS: LATANOPROST OPHT DROP 2.5 ML BOTTLE EACHEYE SCH (21:39)
[2023-06-14] MEDS: NUTRISOURCE FIBER 4 GM PACKET GT SCH (21:39)
[2023-06-15] VITALS (10 sets, daily range): TEMP 97–98; O2SAT 97–99
[2023-06-15] MEDS: ALBUTEROL SULFATE 2.5 MG/3 ML NEBU NEB SCH ×4 (00:53→19:15)
[2023-06-15] MEDS: IPRATROPIUM BROMIDE 0.5 MG/2.5 ML NEBU NEB SCH ×4 (00:53→19:15)
[2023-06-15] MEDS: ACIDOPHILUS/BULGARICUS CHEW TAB GT SCH ×3 (05:36→21:47)
[2023-06-15] MEDS: DOXYCYCLINE HYCLATE 100 MG TABLET GT SCH (05:36)
[2023-06-15] MEDS: VALPROIC ACID 250 MG/5 ML LIQUID UDC GT SCH ×3 (05:36→21:47)
[2023-06-15] MEDS: OMEPRAZOLE 20 MG CAPSULE.DR GT SCH (05:36)
[2023-06-15] MEDS: MEROPENEM 1 G in IV NORMAL SALINE 100 ML IV SCH ×3 (05:51→22:00)
[2023-06-15] MEDS: HYDROGEN PEROXIDE 3% 118 ML BOTTLE TP SCH ×2 (07:30→19:15)
[2023-06-15] MEDS: POLYVINYL ALCOHOL OPHT DROPS 15 ML BOTTLE EACHEYE SCH ×4 (08:51→21:46)
[2023-06-15] MEDS: BENZOYL PEROXIDE 10% GEL 60 GM TUBE TP SCH ×2 (08:54→21:46)
[2023-06-15] MEDS: PHENOBARBITAL 32.4 MG TABLET GT SCH ×2 (08:54→21:46)
[2023-06-15] MEDS: NORMAL SALINE FLUSH 10 ML DISP.SYRIN IV SCH ×2 (08:54→21:00)
[2023-06-15] MEDS: BACLOFEN 20 MG TABLET GT SCH ×3 (08:54→21:46)
[2023-06-15] MEDS: REMEDY ESSENTIAL ZINC PASTE 113 GM TP SCH ×2 (08:54→21:46)
[2023-06-15] MEDS: JEVITY 1.2 1000 ML LIQUID GT PRN (13:07)
[2023-06-15] MEDS: OMEGA-3 FATTY ACIDS/FISH OIL CAPSULE GT SCH (21:46)
[2023-06-15] MEDS: LATANOPROST OPHT DROP 2.5 ML BOTTLE EACHEYE SCH (21:46)
[2023-06-15] MEDS: NUTRISOURCE FIBER 4 GM PACKET GT SCH (21:46)
[2023-06-16] VITALS (12 sets, daily range): BP systolic 141–143; BP diastolic 58–68; TEMP 94.6–97; O2SAT 96–99
[2023-06-16] MEDS: ALBUTEROL SULFATE 2.5 MG/3 ML NEBU NEB SCH ×4 (00:46→20:28)
[2023-06-16] MEDS: IPRATROPIUM BROMIDE 0.5 MG/2.5 ML NEBU NEB SCH ×4 (00:46→20:28)
[2023-06-16] MEDS: DOXYCYCLINE HYCLATE 100 MG TABLET GT SCH (05:09)
[2023-06-16] MEDS: VALPROIC ACID 250 MG/5 ML LIQUID UDC GT SCH ×3 (05:09→22:04)
[2023-06-16] MEDS: ACIDOPHILUS/BULGARICUS CHEW TAB GT SCH ×3 (05:09→22:03)
[2023-06-16] MEDS: OMEPRAZOLE 20 MG CAPSULE.DR GT SCH (05:09)
[2023-06-16] MEDS: MEROPENEM 1 G in IV NORMAL SALINE 100 ML IV SCH ×2 (06:00→13:00)
[2023-06-16] MEDS: NORMAL SALINE FLUSH 10 ML DISP.SYRIN IV SCH ×2 (09:00→21:00)
[2023-06-16] MEDS: BENZOYL PEROXIDE 10% GEL 60 GM TUBE TP SCH ×2 (09:37→21:00)
[2023-06-16] MEDS: POLYVINYL ALCOHOL OPHT DROPS 15 ML BOTTLE EACHEYE SCH ×4 (09:37→21:00)
[2023-06-16] MEDS: REMEDY ESSENTIAL ZINC PASTE 113 GM TP SCH ×2 (09:37→21:00)
[2023-06-16] MEDS: BACLOFEN 20 MG TABLET GT SCH ×3 (09:37→22:13)
[2023-06-16] MEDS: JEVITY 1.2 1000 ML LIQUID GT PRN (09:39)
[2023-06-16] MEDS: PHENOBARBITAL 32.4 MG TABLET GT SCH ×2 (09:43→21:00)
[2023-06-16] MEDS: HYDROGEN PEROXIDE 3% 118 ML BOTTLE TP SCH ×2 (09:58→21:00)
[2023-06-16] MEDS: LATANOPROST OPHT DROP 2.5 ML BOTTLE EACHEYE SCH (21:00)
[2023-06-16] MEDS: OMEGA-3 FATTY ACIDS/FISH OIL CAPSULE GT SCH (21:00)
[2023-06-16] MEDS: NUTRISOURCE FIBER 4 GM PACKET GT SCH (21:00)
[2023-06-16] MEDS: CEFTRIAXONE 2 G in IV DEXTROSE 5% 100 ML IV SCH (22:00)
[2023-06-17] VITALS (10 sets, daily range): TEMP 97.5–98.3; O2SAT 97–99
[2023-06-17] MEDS: ALBUTEROL SULFATE 2.5 MG/3 ML NEBU NEB SCH ×4 (01:33→19:17)
[2023-06-17] MEDS: IPRATROPIUM BROMIDE 0.5 MG/2.5 ML NEBU NEB SCH ×4 (01:33→19:16)
[2023-06-17] MEDS: VALPROIC ACID 250 MG/5 ML LIQUID UDC GT SCH ×3 (05:30→22:18)
[2023-06-17] MEDS: ACIDOPHILUS/BULGARICUS CHEW TAB GT SCH ×3 (05:30→22:17)
[2023-06-17] MEDS: OMEPRAZOLE 20 MG CAPSULE.DR GT SCH (05:30)
[2023-06-17] MEDS: DOXYCYCLINE HYCLATE 100 MG TABLET GT SCH (05:30)
[2023-06-17] MEDS: HYDROGEN PEROXIDE 3% 118 ML BOTTLE TP SCH ×2 (07:09→21:00)
[2023-06-17] MEDS: POLYVINYL ALCOHOL OPHT DROPS 15 ML BOTTLE EACHEYE SCH ×4 (09:00→21:00)
[2023-06-17] MEDS: PHENOBARBITAL 32.4 MG TABLET GT SCH ×2 (09:00→21:00)
[2023-06-17] MEDS: REMEDY ESSENTIAL ZINC PASTE 113 GM TP SCH ×2 (09:00→21:00)
[2023-06-17] MEDS: BENZOYL PEROXIDE 10% GEL 60 GM TUBE TP SCH ×2 (09:00→21:00)
[2023-06-17] MEDS: NORMAL SALINE FLUSH 10 ML DISP.SYRIN IV SCH ×2 (09:00→21:00)
[2023-06-17] MEDS: BACLOFEN 20 MG TABLET GT SCH ×3 (09:00→21:00)
[2023-06-17] MEDS: CEFTRIAXONE 2 G in IV DEXTROSE 5% 100 ML IV SCH (16:53)
[2023-06-17] MEDS: LATANOPROST OPHT DROP 2.5 ML BOTTLE EACHEYE SCH (21:00)
[2023-06-17] MEDS: NUTRISOURCE FIBER 4 GM PACKET GT SCH (21:00)
[2023-06-17] MEDS: OMEGA-3 FATTY ACIDS/FISH OIL CAPSULE GT SCH (21:00)
[2023-06-18] VITALS (10 sets, daily range): TEMP 94.6–98.2; O2SAT 97–99
[2023-06-18] MEDS: IPRATROPIUM BROMIDE 0.5 MG/2.5 ML NEBU NEB SCH ×4 (01:41→20:10)
[2023-06-18] MEDS: ALBUTEROL SULFATE 2.5 MG/3 ML NEBU NEB SCH ×4 (01:41→20:10)
[2023-06-18] MEDS: OMEPRAZOLE 20 MG CAPSULE.DR GT SCH (06:15)
[2023-06-18] MEDS: ACIDOPHILUS/BULGARICUS CHEW TAB GT SCH ×3 (06:15→21:43)
[2023-06-18] MEDS: DOXYCYCLINE HYCLATE 100 MG TABLET GT SCH (06:15)
[2023-06-18] MEDS: VALPROIC ACID 250 MG/5 ML LIQUID UDC GT SCH ×3 (06:15→21:43)
[2023-06-18] MEDS: JEVITY 1.2 1000 ML LIQUID GT PRN (07:00)
[2023-06-18] MEDS: HYDROGEN PEROXIDE 3% 118 ML BOTTLE TP SCH ×2 (07:20→20:53)
[2023-06-18] MEDS: POLYVINYL ALCOHOL OPHT DROPS 15 ML BOTTLE EACHEYE SCH ×4 (08:27→21:39)
[2023-06-18] MEDS: NORMAL SALINE FLUSH 10 ML DISP.SYRIN IV SCH ×2 (08:27→21:40)
[2023-06-18] MEDS: REMEDY ESSENTIAL ZINC PASTE 113 GM TP SCH ×2 (08:28→21:40)
[2023-06-18] MEDS: BENZOYL PEROXIDE 10% GEL 60 GM TUBE TP SCH ×2 (08:28→21:40)
[2023-06-18] MEDS: PHENOBARBITAL 32.4 MG TABLET GT SCH ×2 (09:03→21:39)
[2023-06-18] MEDS: BACLOFEN 20 MG TABLET GT SCH ×3 (09:03→21:39)
[2023-06-18] MEDS: LATANOPROST OPHT DROP 2.5 ML BOTTLE EACHEYE SCH (21:39)
[2023-06-18] MEDS: NUTRISOURCE FIBER 4 GM PACKET GT SCH (21:39)
[2023-06-18] MEDS: OMEGA-3 FATTY ACIDS/FISH OIL CAPSULE GT SCH (21:39)
[2023-06-19] VITALS (10 sets, daily range): TEMP 98–99; O2SAT 97–99
[2023-06-19] MEDS: ALBUTEROL SULFATE 2.5 MG/3 ML NEBU NEB SCH ×4 (01:53→20:10)
[2023-06-19] MEDS: IPRATROPIUM BROMIDE 0.5 MG/2.5 ML NEBU NEB SCH ×4 (01:53→20:10)
[2023-06-19] MEDS: DOXYCYCLINE HYCLATE 100 MG TABLET GT SCH (06:16)
[2023-06-19] MEDS: OMEPRAZOLE 20 MG CAPSULE.DR GT SCH (06:16)
[2023-06-19] MEDS: VALPROIC ACID 250 MG/5 ML LIQUID UDC GT SCH ×3 (06:16→21:45)
[2023-06-19] MEDS: ACIDOPHILUS/BULGARICUS CHEW TAB GT SCH ×3 (06:16→21:45)
[2023-06-19] MEDS: JEVITY 1.2 1000 ML LIQUID GT PRN ×2 (06:17→21:48)
[2023-06-19] MEDS: BACLOFEN 20 MG TABLET GT SCH ×3 (08:31→21:44)
[2023-06-19] MEDS: BENZOYL PEROXIDE 10% GEL 60 GM TUBE TP SCH ×2 (08:31→21:45)
[2023-06-19] MEDS: NORMAL SALINE FLUSH 10 ML DISP.SYRIN IV SCH (08:31)
[2023-06-19] MEDS: PHENOBARBITAL 32.4 MG TABLET GT SCH ×2 (08:31→21:44)
[2023-06-19] MEDS: POLYVINYL ALCOHOL OPHT DROPS 15 ML BOTTLE EACHEYE SCH ×4 (08:31→21:44)
[2023-06-19] MEDS: REMEDY ESSENTIAL ZINC PASTE 113 GM TP SCH ×2 (08:31→21:45)
[2023-06-19] MEDS: HYDROGEN PEROXIDE 3% 118 ML BOTTLE TP SCH ×2 (09:30→21:47)
[2023-06-19] MEDS: OMEGA-3 FATTY ACIDS/FISH OIL CAPSULE GT SCH (21:44)
[2023-06-19] MEDS: NUTRISOURCE FIBER 4 GM PACKET GT SCH (21:44)
[2023-06-19] MEDS: LATANOPROST OPHT DROP 2.5 ML BOTTLE EACHEYE SCH (21:44)
[2023-06-20] VITALS (10 sets, daily range): TEMP 97.5–97.6; O2SAT 97–99
[2023-06-20] MEDS: IPRATROPIUM BROMIDE 0.5 MG/2.5 ML NEBU NEB SCH ×4 (01:08→19:15)
[2023-06-20] MEDS: ALBUTEROL SULFATE 2.5 MG/3 ML NEBU NEB SCH ×4 (01:08→19:15)
[2023-06-20] MEDS: VALPROIC ACID 250 MG/5 ML LIQUID UDC GT SCH ×3 (05:48→21:51)
[2023-06-20] MEDS: DOXYCYCLINE HYCLATE 100 MG TABLET GT SCH (05:48)
[2023-06-20] MEDS: ACIDOPHILUS/BULGARICUS CHEW TAB GT SCH ×3 (05:48→21:52)
[2023-06-20] MEDS: OMEPRAZOLE 20 MG CAPSULE.DR GT SCH (05:48)
[2023-06-20] MEDS: POLYVINYL ALCOHOL OPHT DROPS 15 ML BOTTLE EACHEYE SCH ×4 (08:44→21:50)
[2023-06-20] MEDS: BACLOFEN 20 MG TABLET GT SCH ×3 (08:44→21:51)
[2023-06-20] MEDS: BENZOYL PEROXIDE 10% GEL 60 GM TUBE TP SCH ×2 (08:45→21:51)
[2023-06-20] MEDS: REMEDY ESSENTIAL ZINC PASTE 113 GM TP SCH ×2 (08:45→21:51)
[2023-06-20] MEDS: PHENOBARBITAL 32.4 MG TABLET GT SCH ×2 (08:45→21:51)
[2023-06-20] MEDS: HYDROGEN PEROXIDE 3% 118 ML BOTTLE TP SCH ×2 (09:23→19:15)
[2023-06-20] MEDS: LATANOPROST OPHT DROP 2.5 ML BOTTLE EACHEYE SCH (21:50)
[2023-06-20] MEDS: OMEGA-3 FATTY ACIDS/FISH OIL CAPSULE GT SCH (21:50)
[2023-06-20] MEDS: NUTRISOURCE FIBER 4 GM PACKET GT SCH (21:51)
[2023-06-20] MEDS: JEVITY 1.2 1000 ML LIQUID GT PRN (22:09)
[2023-06-21] VITALS (10 sets, daily range): TEMP 97.5–98.1; O2SAT 97–99
[2023-06-21] MEDS: ALBUTEROL SULFATE 2.5 MG/3 ML NEBU NEB SCH ×4 (00:33→19:16)
[2023-06-21] MEDS: IPRATROPIUM BROMIDE 0.5 MG/2.5 ML NEBU NEB SCH ×4 (00:33→19:16)
[2023-06-21] MEDS: DOXYCYCLINE HYCLATE 100 MG TABLET GT SCH (06:20)
[2023-06-21] MEDS: OMEPRAZOLE 20 MG CAPSULE.DR GT SCH (06:20)
[2023-06-21] MEDS: VALPROIC ACID 250 MG/5 ML LIQUID UDC GT SCH ×3 (06:20→21:31)
[2023-06-21] MEDS: ACIDOPHILUS/BULGARICUS CHEW TAB GT SCH ×3 (06:20→21:31)
[2023-06-21] MEDS: POLYVINYL ALCOHOL OPHT DROPS 15 ML BOTTLE EACHEYE SCH ×4 (08:57→21:31)
[2023-06-21] MEDS: PHENOBARBITAL 32.4 MG TABLET GT SCH ×2 (08:57→21:31)
[2023-06-21] MEDS: BACLOFEN 20 MG TABLET GT SCH ×3 (08:57→21:31)
[2023-06-21] MEDS: BENZOYL PEROXIDE 10% GEL 60 GM TUBE TP SCH ×2 (08:59→21:31)
[2023-06-21] MEDS: REMEDY ESSENTIAL ZINC PASTE 113 GM TP SCH ×2 (08:59→21:31)
[2023-06-21] MEDS: HYDROGEN PEROXIDE 3% 118 ML BOTTLE TP SCH ×2 (09:09→19:16)
[2023-06-21] MEDS: OMEGA-3 FATTY ACIDS/FISH OIL CAPSULE GT SCH (21:31)
[2023-06-21] MEDS: LATANOPROST OPHT DROP 2.5 ML BOTTLE EACHEYE SCH (21:31)
[2023-06-21] MEDS: NUTRISOURCE FIBER 4 GM PACKET GT SCH (21:31)
[2023-06-22] VITALS (10 sets, daily range): TEMP 98.2; O2SAT 98–99
[2023-06-22] MEDS: ALBUTEROL SULFATE 2.5 MG/3 ML NEBU NEB SCH ×4 (02:09→19:35)
[2023-06-22] MEDS: IPRATROPIUM BROMIDE 0.5 MG/2.5 ML NEBU NEB SCH ×4 (02:09→19:35)
[2023-06-22] MEDS: DOXYCYCLINE HYCLATE 100 MG TABLET GT SCH (05:55)
[2023-06-22] MEDS: VALPROIC ACID 250 MG/5 ML LIQUID UDC GT SCH ×3 (05:55→22:37)
[2023-06-22] MEDS: OMEPRAZOLE 20 MG CAPSULE.DR GT SCH (05:55)
[2023-06-22] MEDS: ACIDOPHILUS/BULGARICUS CHEW TAB GT SCH ×3 (05:55→22:37)
[2023-06-22] MEDS: HYDROGEN PEROXIDE 3% 118 ML BOTTLE TP SCH ×2 (07:30→21:08)
[2023-06-22] MEDS: BACLOFEN 20 MG TABLET GT SCH ×3 (08:45→21:00)
[2023-06-22] MEDS: POLYVINYL ALCOHOL OPHT DROPS 15 ML BOTTLE EACHEYE SCH ×4 (08:45→21:00)
[2023-06-22] MEDS: PHENOBARBITAL 32.4 MG TABLET GT SCH ×2 (08:46→21:00)
[2023-06-22] MEDS: BENZOYL PEROXIDE 10% GEL 60 GM TUBE TP SCH ×2 (08:46→21:00)
[2023-06-22] MEDS: REMEDY ESSENTIAL ZINC PASTE 113 GM TP SCH ×2 (08:46→21:00)
[2023-06-22] MEDS: JEVITY 1.2 1000 ML LIQUID GT PRN (12:58)
[2023-06-22] MEDS: NUTRISOURCE FIBER 4 GM PACKET GT SCH (21:00)
[2023-06-22] MEDS: LATANOPROST OPHT DROP 2.5 ML BOTTLE EACHEYE SCH (21:00)
[2023-06-22] MEDS: OMEGA-3 FATTY ACIDS/FISH OIL CAPSULE GT SCH (21:00)
[2023-06-23] VITALS (9 sets, daily range): TEMP 97.3; O2SAT 98–99
[2023-06-23] MEDS: ALBUTEROL SULFATE 2.5 MG/3 ML NEBU NEB SCH ×4 (01:31→19:23)
[2023-06-23] MEDS: IPRATROPIUM BROMIDE 0.5 MG/2.5 ML NEBU NEB SCH ×4 (01:31→19:23)
[2023-06-23] MEDS: VALPROIC ACID 250 MG/5 ML LIQUID UDC GT SCH ×3 (06:48→21:12)
[2023-06-23] MEDS: ACIDOPHILUS/BULGARICUS CHEW TAB GT SCH ×3 (06:49→21:12)
[2023-06-23] MEDS: OMEPRAZOLE 20 MG CAPSULE.DR GT SCH (06:50)
[2023-06-23] MEDS: DOXYCYCLINE HYCLATE 100 MG TABLET GT SCH (06:53)
[2023-06-23] MEDS: BACLOFEN 20 MG TABLET GT SCH ×3 (09:20→21:12)
[2023-06-23] MEDS: PHENOBARBITAL 32.4 MG TABLET GT SCH ×2 (09:20→21:12)
[2023-06-23] MEDS: POLYVINYL ALCOHOL OPHT DROPS 15 ML BOTTLE EACHEYE SCH ×4 (09:20→21:12)
[2023-06-23] MEDS: BENZOYL PEROXIDE 10% GEL 60 GM TUBE TP SCH ×2 (09:21→21:12)
[2023-06-23] MEDS: REMEDY ESSENTIAL ZINC PASTE 113 GM TP SCH ×2 (09:21→21:12)
[2023-06-23] MEDS: HYDROGEN PEROXIDE 3% 118 ML BOTTLE TP SCH ×2 (09:26→19:23)
[2023-06-23] MEDS: JEVITY 1.2 1000 ML LIQUID GT PRN (11:41)
[2023-06-23] MEDS: OMEGA-3 FATTY ACIDS/FISH OIL CAPSULE GT SCH (21:12)
[2023-06-23] MEDS: LATANOPROST OPHT DROP 2.5 ML BOTTLE EACHEYE SCH (21:12)
[2023-06-23] MEDS: NUTRISOURCE FIBER 4 GM PACKET GT SCH (21:12)
[2023-06-24] VITALS (11 sets, daily range): TEMP 97.6–97.8; O2SAT 96–99
[2023-06-24] MEDS: ALBUTEROL SULFATE 2.5 MG/3 ML NEBU NEB SCH ×4 (01:24→19:26)
[2023-06-24] MEDS: IPRATROPIUM BROMIDE 0.5 MG/2.5 ML NEBU NEB SCH ×4 (01:24→19:26)
[2023-06-24] MEDS: JEVITY 1.2 1000 ML LIQUID GT PRN (04:41)
[2023-06-24] MEDS: VALPROIC ACID 250 MG/5 ML LIQUID UDC GT SCH ×3 (06:35→22:18)
[2023-06-24] MEDS: OMEPRAZOLE 20 MG CAPSULE.DR GT SCH (06:35)
[2023-06-24] MEDS: DOXYCYCLINE HYCLATE 100 MG TABLET GT SCH (06:35)
[2023-06-24] MEDS: ACIDOPHILUS/BULGARICUS CHEW TAB GT SCH ×3 (06:35→22:15)
[2023-06-24] MEDS: BACLOFEN 20 MG TABLET GT SCH ×3 (08:49→21:00)
[2023-06-24] MEDS: REMEDY ESSENTIAL ZINC PASTE 113 GM TP SCH ×2 (08:49→21:00)
[2023-06-24] MEDS: BENZOYL PEROXIDE 10% GEL 60 GM TUBE TP SCH ×2 (08:49→21:00)
[2023-06-24] MEDS: POLYVINYL ALCOHOL OPHT DROPS 15 ML BOTTLE EACHEYE SCH ×4 (08:49→21:00)
[2023-06-24] MEDS: PHENOBARBITAL 32.4 MG TABLET GT SCH ×2 (08:49→21:00)
[2023-06-24] MEDS: HYDROGEN PEROXIDE 3% 118 ML BOTTLE TP SCH ×2 (09:50→19:06)
[2023-06-24] MEDS: NUTRISOURCE FIBER 4 GM PACKET GT SCH (21:00)
[2023-06-24] MEDS: OMEGA-3 FATTY ACIDS/FISH OIL CAPSULE GT SCH (21:00)
[2023-06-24] MEDS: LATANOPROST OPHT DROP 2.5 ML BOTTLE EACHEYE SCH (22:14)
[2023-06-25] VITALS (10 sets, daily range): TEMP 97–98; O2SAT 98–99
[2023-06-25] MEDS: ALBUTEROL SULFATE 2.5 MG/3 ML NEBU NEB SCH ×4 (01:27→19:19)
[2023-06-25] MEDS: IPRATROPIUM BROMIDE 0.5 MG/2.5 ML NEBU NEB SCH ×4 (01:27→19:19)
[2023-06-25] MEDS: VALPROIC ACID 250 MG/5 ML LIQUID UDC GT SCH ×3 (06:00→21:18)
[2023-06-25] MEDS: DOXYCYCLINE HYCLATE 100 MG TABLET GT SCH (06:00)
[2023-06-25] MEDS: ACIDOPHILUS/BULGARICUS CHEW TAB GT SCH ×3 (06:54→21:18)
[2023-06-25] MEDS: OMEPRAZOLE 20 MG CAPSULE.DR GT SCH (06:55)
[2023-06-25] MEDS: POLYVINYL ALCOHOL OPHT DROPS 15 ML BOTTLE EACHEYE SCH ×4 (08:21→20:44)
[2023-06-25] MEDS: BACLOFEN 20 MG TABLET GT SCH ×3 (08:25→20:56)
[2023-06-25] MEDS: REMEDY ESSENTIAL ZINC PASTE 113 GM TP SCH ×2 (08:26→20:56)
[2023-06-25] MEDS: PHENOBARBITAL 32.4 MG TABLET GT SCH ×2 (08:26→20:56)
[2023-06-25] MEDS: BENZOYL PEROXIDE 10% GEL 60 GM TUBE TP SCH ×2 (08:26→20:56)
[2023-06-25] MEDS: HYDROGEN PEROXIDE 3% 118 ML BOTTLE TP SCH ×2 (09:04→19:19)
[2023-06-25] MEDS: LATANOPROST OPHT DROP 2.5 ML BOTTLE EACHEYE SCH (20:44)
[2023-06-25] MEDS: OMEGA-3 FATTY ACIDS/FISH OIL CAPSULE GT SCH (20:44)
[2023-06-25] MEDS: NUTRISOURCE FIBER 4 GM PACKET GT SCH (20:56)
[2023-06-26 01:25] VITALS: O2SAT 98
[2023-06-26] MEDS: IPRATROPIUM BROMIDE 0.5 MG/2.5 ML NEBU NEB SCH (01:25)
[2023-06-26] MEDS: ALBUTEROL SULFATE 2.5 MG/3 ML NEBU NEB SCH (01:25)
[2023-06-26 01:35] VITALS: O2SAT 99
[2023-06-26] MEDS: VALPROIC ACID 250 MG/5 ML LIQUID UDC GT SCH (05:15)
[2023-06-26] MEDS: ACIDOPHILUS/BULGARICUS CHEW TAB GT SCH (05:15)
[2023-06-26] MEDS: OMEPRAZOLE 20 MG CAPSULE.DR GT SCH (05:15)
[2023-06-26] MEDS: DOXYCYCLINE HYCLATE 100 MG TABLET GT SCH (05:15)
== END 2023-06-24 23:59 | disposition still patient (30) | DRG 189 ==
LOC: SA → UNDOADMIN 06-27 07:04 → SA 06-27 07:04 → SA1 01-18 21:58 → SA 01-21 18:18
PROVIDERS: ADMIT Internal Medicine; ATTEND Internal Medicine
PROC: 05HB33Z Insertion of Infusion Device into Right Basilic Vein, Percutaneous Approach (ICD-10-PCS; principal; 2022-10-17)
DX: J96.11 Chronic respiratory failure with hypoxia (principal); R53.2 Functional quadriplegia; G93.1 Anoxic brain damage, not elsewhere classified; J98.11 Atelectasis; L02.11 Cutaneous abscess of neck; L02.412 Cutaneous abscess of left axilla; Z16.23 Resistance to quinolones and fluoroquinolones; Z16.24 Resistance to multiple antibiotics; B95.62 Methicillin resistant Staphylococcus aureus infection as the cause of diseases classified elsewhere; B96.4 Proteus (mirabilis) (morganii) as the cause of diseases classified elsewhere; E78.5 Hyperlipidemia, unspecified; G40.909 Epilepsy, unspecified, not intractable, without status epilepticus; H40.9 Unspecified glaucoma; I10 Essential (primary) hypertension; L02.12 Furuncle of neck; L73.9 Follicular disorder, unspecified; N35.919 Unspecified urethral stricture, male, unspecified site; R13.10 Dysphagia, unspecified; R47.02 Dysphasia; Z66 Do not resuscitate; Z86.74 Personal history of sudden cardiac arrest; Z87.440 Personal history of urinary (tract) infections; Z87.442 Personal history of urinary calculi; Z93.0 Tracheostomy status; Z93.1 Gastrostomy status
CPT/HCPCS: 36415; 70030-TC; 74018; 76881; 80164; 80184; 83735; 84100; 85025; 86580; 87040; 90686; 94640; A4663; A6209; C1758; J0692; J0696; J2185; J3370; J3490; J3590; J7050; Q9963; U0003

== ENCOUNTER 2024-06-25 | Inpatient (IN) | payer OTHER ==
[~2024-06-25] VITALS: Ht 182.9 cm; Wt 94.8 kg
[2024-06-26] VITALS (12 sets, daily range): BP systolic 98–113; BP diastolic 61–76; TEMP 96.9–97.9; O2SAT 97–99
[2024-06-26] MEDS: IPRATROPIUM BROMIDE 0.5 MG/2.5 ML NEBU NEB SCH (07:35)
[2024-06-26] MEDS: ALBUTEROL SULFATE 2.5 MG/3 ML NEBU NEB SCH (07:35)
[2024-06-26] MEDS: REMEDY ESSENTIAL ZINC PASTE 113 GM TP SCH (09:00)
[2024-06-26] MEDS ORDERED: HYDROGEN PEROXIDE 3% 118 ML BOTTLE TP PRN (09:00)
[2024-06-26] MEDS ORDERED: ALBUTEROL SULFATE 2.5 MG/3 ML NEBU NEB PRN (09:00)
[2024-06-26] MEDS ORDERED: BISACODYL 10 MG SUPP.RECT RC PRN (09:00)
[2024-06-26] MEDS: BENZOYL PEROXIDE 10% GEL 60 GM TUBE TP SCH (09:00)
[2024-06-26] MEDS: BACLOFEN 20 MG TABLET GT SCH (09:00)
[2024-06-26] MEDS: ATORVASTATIN 10 MG TABLET GT SCH (09:00)
[2024-06-26] MEDS ORDERED: IPRATROPIUM BROMIDE 0.5 MG/2.5 ML NEBU NEB PRN (09:00)
[2024-06-26] MEDS: PHENOBARBITAL 32.4 MG TABLET GT SCH (09:00)
[2024-06-26] MEDS: POLYVINYL ALCOHOL OPHT DROPS 15 ML BOTTLE EACHEYE SCH (09:00)
[2024-06-26] MEDS: HYDROGEN PEROXIDE 3% 118 ML BOTTLE TP SCH (09:37)
[2024-06-26] MEDS: ACIDOPHILUS/BULGARICUS CHEW TAB GT SCH (14:07)
[2024-06-26] MEDS: VALPROIC ACID 250 MG/5 ML LIQUID UDC GT SCH (14:07)
[2024-06-26] MEDS: LATANOPROST OPHT DROP 2.5 ML BOTTLE EACHEYE SCH (20:37)
[2024-06-26] MEDS: NUTRISOURCE FIBER 4 GM PACKET GT SCH (20:40)
[2024-06-26] MEDS: OMEGA-3 FATTY ACIDS/FISH OIL CAPSULE GT SCH (20:40)
[2024-06-26] MEDS: JEVITY 1.2 1000 ML LIQUID GT PRN (21:08)
[2024-06-27] VITALS (12 sets, daily range): BP systolic 104–117; BP diastolic 69–75; TEMP 97.5–97.6; O2SAT 97–99
[2024-06-27] MEDS: OMEPRAZOLE 20 MG CAPSULE.DR GT SCH (05:31)
[2024-06-27] MEDS: DOXYCYCLINE HYCLATE 100 MG TABLET GT SCH (05:34)
[2024-06-28] VITALS (13 sets, daily range): BP systolic 94–112; BP diastolic 54–75; TEMP 96.7–97.7; O2SAT 97–99
[2024-06-29] VITALS (10 sets, daily range): BP systolic 123–125; BP diastolic 75–77; TEMP 97.7–98; O2SAT 97–99
[2024-06-30] VITALS (12 sets, daily range): BP systolic 106–107; BP diastolic 56–57; TEMP 97.8–98; O2SAT 97–99
[2024-07-01] VITALS (13 sets, daily range): BP systolic 99–103; BP diastolic 61–64; TEMP 97.5; O2SAT 97–99
[2024-07-02] VITALS (10 sets, daily range): BP systolic 96–101; BP diastolic 60–66; TEMP 97.6–98.4; O2SAT 98–99
[2024-07-03] VITALS (12 sets, daily range): BP systolic 110–123; BP diastolic 59–67; TEMP 98–98.7; O2SAT 97–99
[2024-07-04] VITALS (13 sets, daily range): BP systolic 103–105; BP diastolic 58–61; TEMP 97.6–97.7; O2SAT 97–99
[2024-07-05] VITALS (12 sets, daily range): BP systolic 112–119; BP diastolic 74–76; TEMP 97.5–97.8; O2SAT 97–99
[2024-07-06] VITALS (11 sets, daily range): BP systolic 110–117; BP diastolic 71–83; TEMP 97.5–98; O2SAT 97–99
[2024-07-07] VITALS (11 sets, daily range): BP systolic 101–112; BP diastolic 55–71; TEMP 97.4–97.7; O2SAT 97–99
[2024-07-07 08:17] LABS: PLATELET COUNT (AUTO) 152 K/uL (152-348); RED BLOOD CELL COUNT(AUTO) 4.40 MIL/uL (4.06-5.63); RED CELL DISTRIBUTION WIDTH 15.5 % (12.1-16.2); WHITE BLOOD COUNT (AUTO) 5.3 K/uL (3.6-10.2)
[2024-07-07 08:35] LABS: ASPARTATE AMINOTRANSFERASE 7 U/L (15-37); CREATININE 0.3 mg/dL (0.6-1.3); SODIUM SERUM 137 mmol/L (136-145); TOTAL PROTEIN, SERUM 8.6 g/dL (6.4-8.2); UREA NITROGEN, BLOOD 10 mg/dL (7-18)
[2024-07-07] MEDS: MAGNESIUM OXIDE 400 MG TABLET GT ONE (11:00)
[2024-07-08] VITALS (11 sets, daily range): BP systolic 109–118; BP diastolic 69–78; TEMP 97.5–97.6; O2SAT 97–99
[2024-07-09] VITALS (13 sets, daily range): BP systolic 103–104; BP diastolic 62–64; TEMP 97.2–97.5; O2SAT 97–99
[2024-07-10] VITALS (14 sets, daily range): BP systolic 98–105; BP diastolic 64–67; TEMP 97.4–98.6; O2SAT 97–99
[2024-07-11] VITALS (12 sets, daily range): BP systolic 96–99; BP diastolic 58–67; TEMP 97.5; O2SAT 97–99
[2024-07-12] VITALS (11 sets, daily range): BP systolic 105–118; BP diastolic 65–67; TEMP 94–98.7; O2SAT 97–99
[2024-07-13] VITALS (11 sets, daily range): BP systolic 101–103; BP diastolic 53–65; TEMP 97.3–97.5; O2SAT 97–99
[2024-07-14] VITALS (10 sets, daily range): BP systolic 98–110; BP diastolic 61–70; TEMP 97–97.6; O2SAT 97–99
[2024-07-15] VITALS (13 sets, daily range): BP systolic 100–104; BP diastolic 50–58; TEMP 97–97.8; O2SAT 97–99
[2024-07-16] VITALS (11 sets, daily range): BP systolic 101–109; BP diastolic 64–69; TEMP 94.7–97.6; O2SAT 97–99
[2024-07-17] VITALS (12 sets, daily range): BP systolic 109; BP diastolic 74; TEMP 97.5; O2SAT 96–99
[2024-07-18] VITALS (13 sets, daily range): BP systolic 99–104; BP diastolic 57–67; TEMP 97.5–97.9; O2SAT 96–99
[2024-07-19] VITALS (11 sets, daily range): BP systolic 102–108; BP diastolic 55–71; TEMP 97.5–98.1; O2SAT 97–99
[2024-07-20] VITALS (11 sets, daily range): BP systolic 113–114; BP diastolic 68–77; TEMP 97.7–97.8; O2SAT 97–99
[2024-07-21] VITALS (13 sets, daily range): BP systolic 100–111; BP diastolic 51–72; TEMP 97.5; O2SAT 97–99
[2024-07-22] VITALS (11 sets, daily range): BP systolic 100–102; BP diastolic 55–60; TEMP 97.5–97.6; O2SAT 97–99
[2024-07-23] VITALS (12 sets, daily range): BP systolic 118–125; BP diastolic 59–73; TEMP 97.8–99; O2SAT 97–99
[2024-07-24] VITALS (13 sets, daily range): BP systolic 98–117; BP diastolic 64–74; TEMP 98.2–99; O2SAT 97–99
[2024-07-25] VITALS (13 sets, daily range): BP systolic 100–116; BP diastolic 56–60; TEMP 97.9–99.7; O2SAT 97–99
[2024-07-26] VITALS (13 sets, daily range): BP systolic 110; BP diastolic 62–64; TEMP 97.8–98.2; O2SAT 97–99
[2024-07-27] VITALS (13 sets, daily range): BP systolic 101–103; BP diastolic 65; TEMP 97.5–97.6; O2SAT 96–99
[2024-07-27] MEDS: ACETAMINOPHEN 650 MG/20 ML UDC- SA PATIENTS-PAIN ONLY GT PRN (07:26)
[2024-07-28] VITALS (13 sets, daily range): BP systolic 100; BP diastolic 56–64; TEMP 97.8; O2SAT 83–99
[2024-07-29] VITALS (13 sets, daily range): BP systolic 100–102; BP diastolic 56–57; TEMP 98.2–98.4; O2SAT 97–99
[2024-07-30] VITALS (12 sets, daily range): BP systolic 109–110; BP diastolic 61–64; TEMP 98–98.1; O2SAT 97–99
[2024-07-31] VITALS (13 sets, daily range): BP systolic 94–102; BP diastolic 60–68; TEMP 97.5–97.8; O2SAT 96–99
[2024-08-01] VITALS (12 sets, daily range): BP systolic 102–106; BP diastolic 56–60; TEMP 97.3–97.6; O2SAT 97–99
[2024-08-02] VITALS (15 sets, daily range): BP systolic 87–98; BP diastolic 53–64; TEMP 96.5–98.5; O2SAT 97–99
[2024-08-03] VITALS (13 sets, daily range): BP systolic 94–105; BP diastolic 52–68; TEMP 97.6–97.7; O2SAT 97–99
[2024-08-04] VITALS (11 sets, daily range): BP systolic 104; BP diastolic 65; TEMP 97.5; O2SAT 97–99
[2024-08-05] VITALS (14 sets, daily range): BP systolic 99–105; BP diastolic 63–72; TEMP 95.6–97.8; O2SAT 97–99
[2024-08-05 07:47] LABS: PLATELET COUNT (AUTO) 216 K/uL (152-348); RED BLOOD CELL COUNT(AUTO) 4.06 MIL/uL (4.06-5.63); RED CELL DISTRIBUTION WIDTH 15.4 % (12.1-16.2); WHITE BLOOD COUNT (AUTO) 6.5 K/uL (3.6-10.2)
[2024-08-05 08:01] LABS: ASPARTATE AMINOTRANSFERASE 10 U/L (15-37); CREATININE 0.3 mg/dL (0.6-1.3); SODIUM SERUM 138 mmol/L (136-145); TOTAL PROTEIN, SERUM 7.3 g/dL (6.4-8.2); UREA NITROGEN, BLOOD 10 mg/dL (7-18)
[2024-08-05] MEDS: MAGNESIUM OXIDE 400 MG TABLET GT ONE (12:00)
[2024-08-06] VITALS (14 sets, daily range): BP systolic 101–103; BP diastolic 63–68; TEMP 97.7–98.1; O2SAT 98–99
[2024-08-07] VITALS (14 sets, daily range): BP systolic 98–101; BP diastolic 59–62; TEMP 97.6–98.5; O2SAT 97–99
[2024-08-08] VITALS (13 sets, daily range): BP systolic 101–103; BP diastolic 60; TEMP 97.6–97.7; O2SAT 97–99
[2024-08-09] VITALS (13 sets, daily range): BP systolic 92–95; BP diastolic 60–61; TEMP 96–97.4; O2SAT 98–99
[2024-08-10] VITALS (14 sets, daily range): BP systolic 98–108; BP diastolic 59–64; TEMP 97.4–97.6; O2SAT 98–99
[2024-08-11] VITALS (13 sets, daily range): BP systolic 107–109; BP diastolic 63–70; TEMP 97.7–97.8; O2SAT 97–99
[2024-08-12] VITALS (13 sets, daily range): BP systolic 114–115; BP diastolic 69–71; TEMP 97.8–98.3; O2SAT 97–99
[2024-08-13] VITALS (12 sets, daily range): BP systolic 96–105; BP diastolic 54–69; TEMP 97.3–97.5; O2SAT 97–99
[2024-08-14] VITALS (12 sets, daily range): BP systolic 92–112; BP diastolic 67–75; TEMP 97–97.3; O2SAT 98–99
[2024-08-15] VITALS (13 sets, daily range): BP systolic 92–118; BP diastolic 54–66; TEMP 97–98.3; O2SAT 98–99
[2024-08-16] VITALS (11 sets, daily range): BP systolic 103–105; BP diastolic 56–68; TEMP 97.5–97.6; O2SAT 97–99
[2024-08-17] VITALS (10 sets, daily range): BP systolic 99–104; BP diastolic 62–66; TEMP 97–97.7; O2SAT 97–99
[2024-08-18] VITALS (11 sets, daily range): BP systolic 94–108; BP diastolic 58–77; TEMP 96.7–97.6; O2SAT 97–99
[2024-08-19] VITALS (13 sets, daily range): BP systolic 117–120; BP diastolic 65–78; TEMP 97.7–98.6; O2SAT 97–99
[2024-08-20] VITALS (11 sets, daily range): BP systolic 96–103; BP diastolic 58–64; TEMP 94.3–98.7; O2SAT 97–99
[2024-08-21] VITALS (14 sets, daily range): BP systolic 103–117; BP diastolic 60–64; TEMP 97.3–97.6; O2SAT 97–99
[2024-08-22] VITALS (13 sets, daily range): BP systolic 105–126; BP diastolic 54–55; TEMP 96.2–97.7; O2SAT 97–99
[2024-08-22] MEDS: BACLOFEN 20 MG TABLET GT SCH (09:33)
[2024-08-23] VITALS (14 sets, daily range): BP systolic 94–120; BP diastolic 58–60; TEMP 97.2–97.7; O2SAT 97–99
[2024-08-24] VITALS (10 sets, daily range): BP systolic 117–119; BP diastolic 71–72; TEMP 97.8–98.2; O2SAT 97–99
[2024-08-25] VITALS (11 sets, daily range): BP systolic 96–102; BP diastolic 59–60; TEMP 97.7–98; O2SAT 97–99
[2024-08-26] VITALS (13 sets, daily range): BP systolic 97–99; BP diastolic 56–57; TEMP 97.8–98.2; O2SAT 98–99
[2024-08-27] VITALS (12 sets, daily range): BP systolic 106–119; BP diastolic 66–67; TEMP 97.6–97.8; O2SAT 98–99
[2024-08-28] VITALS (11 sets, daily range): BP systolic 99–107; BP diastolic 59–60; TEMP 97.4–98.7; O2SAT 98–99
[2024-08-29] VITALS (13 sets, daily range): BP systolic 93–104; BP diastolic 62–98; TEMP 97.2–97.5; O2SAT 98–99
[2024-08-30] VITALS (13 sets, daily range): BP systolic 90–98; BP diastolic 55–60; TEMP 97.7–97.9; O2SAT 99
[2024-08-31] VITALS (12 sets, daily range): BP systolic 107–113; BP diastolic 67–72; TEMP 98.1–98.4; O2SAT 99
[2024-08-31] MEDS ORDERED: DIATR MEGLU/DIATRIZOATE SODIUM 30 ML BOTTLE ONE (09:55)
[2024-09-01] VITALS (11 sets, daily range): BP systolic 114–122; BP diastolic 74–76; TEMP 97.8–98; O2SAT 98–99
[2024-09-02] VITALS (12 sets, daily range): BP systolic 106–119; BP diastolic 49–77; TEMP 97–97.7; O2SAT 97–99
[2024-09-03] VITALS (12 sets, daily range): BP systolic 109–122; BP diastolic 71–85; TEMP 96.4–97.5; O2SAT 97–99
[2024-09-04] VITALS (12 sets, daily range): BP systolic 104–110; BP diastolic 62–64; TEMP 94–97.7; O2SAT 97–99
[2024-09-05] VITALS (14 sets, daily range): BP systolic 100–101; BP diastolic 59; TEMP 97–97.5; O2SAT 97–99
[2024-09-06] VITALS (13 sets, daily range): BP systolic 110–111; BP diastolic 62–70; TEMP 96.5–97.7; O2SAT 98–99
[2024-09-07] VITALS (11 sets, daily range): BP systolic 111–112; BP diastolic 69–72; TEMP 97.6–97.9; O2SAT 97–99
[2024-09-08] VITALS (11 sets, daily range): BP systolic 109–117; BP diastolic 66–79; TEMP 98.4–98.9; O2SAT 97–99
[2024-09-09] VITALS (13 sets, daily range): BP systolic 109–121; BP diastolic 65–69; TEMP 97.6–97.8; O2SAT 97–99
[2024-09-10] VITALS (12 sets, daily range): BP systolic 102–119; BP diastolic 58–72; TEMP 97.1–97.8; O2SAT 97–99
[2024-09-11] VITALS (13 sets, daily range): BP systolic 99–104; BP diastolic 66–69; TEMP 97.4–98; O2SAT 97–99
[2024-09-12] VITALS (14 sets, daily range): BP systolic 92–113; BP diastolic 54–67; TEMP 97–97.4; O2SAT 94–99
[2024-09-13] VITALS (11 sets, daily range): BP systolic 103–104; BP diastolic 65–70; TEMP 97.4–97.9; O2SAT 97–99
[2024-09-14] VITALS (11 sets, daily range): BP systolic 100; BP diastolic 67; TEMP 97.3; O2SAT 97–99
[2024-09-15] VITALS (12 sets, daily range): BP systolic 102–109; BP diastolic 67–69; TEMP 81–98; O2SAT 97–99
[2024-09-16] VITALS (12 sets, daily range): BP systolic 95–106; BP diastolic 55–63; TEMP 97.7–98; O2SAT 96–99
[2024-09-17] VITALS (10 sets, daily range): BP systolic 96–97; BP diastolic 60–69; TEMP 97.2–97.8; O2SAT 96–99
[2024-09-17] MEDS: COD LIVER OIL/ZINC OXIDE OINT 113 GM TUBE TP SCH (08:04)
[2024-09-18] VITALS (12 sets, daily range): BP systolic 100–101; BP diastolic 66; TEMP 97.1–97.5; O2SAT 97–99
[2024-09-19] VITALS (13 sets, daily range): BP systolic 112–120; BP diastolic 46–60; TEMP 94.4–98; O2SAT 97–99
[2024-09-20] VITALS (14 sets, daily range): BP systolic 112–127; BP diastolic 68–75; TEMP 96.8–97.2; O2SAT 97–99
[2024-09-21] VITALS (11 sets, daily range): BP systolic 112–117; BP diastolic 71–72; TEMP 97.8–98.9; O2SAT 97–99
[2024-09-22] VITALS (12 sets, daily range): BP systolic 106–112; BP diastolic 57–72; TEMP 97.5–97.8; O2SAT 97–99
[2024-09-22 08:06] LABS: PLATELET COUNT (AUTO) 133 K/uL (152-348); RED BLOOD CELL COUNT(AUTO) 4.36 MIL/uL (4.06-5.63); RED CELL DISTRIBUTION WIDTH 15.5 % (12.1-16.2); WHITE BLOOD COUNT (AUTO) 6.7 K/uL (3.6-10.2)
[2024-09-22 10:06] LABS: EOSINOPHILS % (MANUAL) 2 % (0-8); LYMPHOCYTES % (MANUAL) 22 % (20-40); MONOCYTES % (MANUAL) 23 % (2-10); NEUTROPHILS % (MANUAL) 53 % (42-75); PLATELET ESTIMATE DECREASED
[2024-09-22 10:49] LABS: ASPARTATE AMINOTRANSFERASE 13 U/L (15-37); CREATININE 0.2 mg/dL (0.6-1.3); SODIUM SERUM 141 mmol/L (136-145); TOTAL PROTEIN, SERUM 7.8 g/dL (6.4-8.2); UREA NITROGEN, BLOOD 9 mg/dL (7-18)
[2024-09-22] MEDS ORDERED: DIATR MEGLU/DIATRIZOATE SODIUM 30 ML BOTTLE ONE (20:20)
[2024-09-23] VITALS (13 sets, daily range): BP systolic 107–108; BP diastolic 48–69; TEMP 97.6–97.7; O2SAT 97–99
[2024-09-24] VITALS (11 sets, daily range): BP systolic 102; BP diastolic 57–64; TEMP 97.5–97.7; O2SAT 97–99
[2024-09-25] VITALS (12 sets, daily range): BP systolic 104–119; BP diastolic 68–70; TEMP 96–97.4; O2SAT 97–99
[2024-09-26] VITALS (12 sets, daily range): BP systolic 109–112; BP diastolic 51–66; TEMP 97–97.8; O2SAT 97–99
[2024-09-26] MEDS: NEOMY/BACITRAC/POLYMI OINT 28.35 GM TUBE TOP SCH (08:52)
[2024-09-26] MEDS: NEOMY/BACITRA/POLYMYXIN B OINT UD PACKET TP SCH (09:01)
[2024-09-27] VITALS (14 sets, daily range): BP systolic 94–117; BP diastolic 54–65; TEMP 97–97.5; O2SAT 97–99
[2024-09-28] VITALS (13 sets, daily range): BP systolic 97–100; BP diastolic 59–63; TEMP 97.3–97.5; O2SAT 96–99
[2024-09-29] VITALS (10 sets, daily range): BP systolic 106–108; BP diastolic 74–75; TEMP 97–98; O2SAT 97–99
[2024-09-30] VITALS (13 sets, daily range): BP systolic 90–93; BP diastolic 60; TEMP 97.5; O2SAT 97–99
[2024-10-01] VITALS (11 sets, daily range): BP systolic 101–107; BP diastolic 62–68; TEMP 97.7–97.8; O2SAT 97–99
[2024-10-02] VITALS (11 sets, daily range): BP systolic 119–121; BP diastolic 74–77; TEMP 97.4–97.5; O2SAT 96–99
[2024-10-03] VITALS (12 sets, daily range): BP systolic 95–106; BP diastolic 53–69; TEMP 97–97.5; O2SAT 98–99
[2024-10-04] VITALS (13 sets, daily range): BP systolic 115–119; BP diastolic 68–72; TEMP 93.2–98; O2SAT 98–99
[2024-10-05] VITALS (11 sets, daily range): BP systolic 102–111; BP diastolic 51–62; TEMP 97.8–97.9; O2SAT 98–99
[2024-10-06] VITALS (11 sets, daily range): BP systolic 93–97; BP diastolic 61; TEMP 97.6–97.8; O2SAT 97–99
[2024-10-07] VITALS (13 sets, daily range): BP systolic 101; BP diastolic 50–65; TEMP 97.5–97.7; O2SAT 97–99
[2024-10-08] VITALS (11 sets, daily range): BP systolic 98–100; BP diastolic 54–67; TEMP 97.4–97.6; O2SAT 97–99
[2024-10-09] VITALS (13 sets, daily range): BP systolic 93–118; BP diastolic 53–70; TEMP 97–97.6; O2SAT 98–99
[2024-10-10] VITALS (13 sets, daily range): BP systolic 105–111; BP diastolic 66–68; TEMP 97.3–98.6; O2SAT 98–99
[2024-10-11] VITALS (13 sets, daily range): BP systolic 103–113; BP diastolic 64–66; TEMP 97.5–97.8; O2SAT 97–99
[2024-10-12] VITALS (10 sets, daily range): BP systolic 99–103; BP diastolic 57–67; TEMP 97.6–97.7; O2SAT 97–99
[2024-10-13] VITALS (10 sets, daily range): BP systolic 106–108; BP diastolic 60–71; TEMP 96.5–97.8; O2SAT 97–99
[2024-10-14] VITALS (14 sets, daily range): BP systolic 102–107; BP diastolic 67–72; TEMP 97.1–98.2; O2SAT 97–99
[2024-10-15] VITALS (11 sets, daily range): BP systolic 100; BP diastolic 65; TEMP 98.4; O2SAT 97–99
[2024-10-16] VITALS (12 sets, daily range): BP systolic 95; BP diastolic 55; TEMP 97; O2SAT 97–99
[2024-10-17] VITALS (13 sets, daily range): BP systolic 104–105; BP diastolic 65; TEMP 97.6–97.7; O2SAT 98–99
[2024-10-18] VITALS (12 sets, daily range): BP systolic 92–108; BP diastolic 60; TEMP 97.8–98.2; O2SAT 98–99
[2024-10-19] VITALS (11 sets, daily range): BP systolic 98–106; BP diastolic 54–62; TEMP 97.7–98.3; O2SAT 98–99
[2024-10-20] VITALS (11 sets, daily range): BP systolic 96–114; BP diastolic 63–64; TEMP 97.5–98.3; O2SAT 97–99
[2024-10-21] VITALS (13 sets, daily range): BP systolic 106–115; BP diastolic 70–73; TEMP 97.8–98.5; O2SAT 97–99
[2024-10-21 08:03] LABS: PHENOBARBITAL 30.0 ug/mL (15.0-39.0); VALPROIC ACID 77.0 ug/mL (50-100)
[2024-10-22] VITALS (11 sets, daily range): BP systolic 97–110; BP diastolic 64–71; TEMP 97.2–97.7; O2SAT 98–99
[2024-10-23] VITALS (13 sets, daily range): BP systolic 92–98; BP diastolic 56–61; TEMP 97.4–97.6; O2SAT 98–99
[2024-10-24] VITALS (12 sets, daily range): BP systolic 100–104; BP diastolic 60–62; TEMP 96–98; O2SAT 97–99
[2024-10-25] VITALS (14 sets, daily range): BP systolic 91–100; BP diastolic 63–65; TEMP 97.5–97.6; O2SAT 98–99
[2024-10-26] VITALS (11 sets, daily range): BP systolic 103–106; BP diastolic 60–62; TEMP 98.4–98.6; O2SAT 98–99
[2024-10-27] VITALS (11 sets, daily range): BP systolic 92–112; BP diastolic 52; TEMP 97.7–98.1; O2SAT 97–99
[2024-10-28] VITALS (13 sets, daily range): BP systolic 91–110; BP diastolic 57–70; TEMP 97.1–97.9; O2SAT 97–99
[2024-10-28 09:27] LABS: PLATELET COUNT (AUTO) 166 K/uL (152-348); RED BLOOD CELL COUNT(AUTO) 3.94 MIL/uL (4.06-5.63); RED CELL DISTRIBUTION WIDTH 16.0 % (12.1-16.2); WHITE BLOOD COUNT (AUTO) 4.9 K/uL (3.6-10.2)
[2024-10-28 09:49] LABS: ASPARTATE AMINOTRANSFERASE 12 U/L (15-37); CREATININE 0.3 mg/dL (0.6-1.3); SODIUM SERUM 141 mmol/L (136-145); TOTAL PROTEIN, SERUM 7.7 g/dL (6.4-8.2); UREA NITROGEN, BLOOD 12 mg/dL (7-18)
[2024-10-28 15:06] LABS: BAND % (MANUAL) 4 % (0-10); LYMPHOCYTES % (MANUAL) 29 % (20-40); NEUTROPHILS % (MANUAL) 52 % (42-75)
[2024-10-28 15:07] LABS: EOSINOPHILS % (MANUAL) 1 % (0-8); MONOCYTES % (MANUAL) 14 % (2-10); PLATELET ESTIMATE DECREASED
[2024-10-29] VITALS (11 sets, daily range): BP systolic 93–95; BP diastolic 55; TEMP 97.1–97.2; O2SAT 97–99
[2024-10-30] VITALS (13 sets, daily range): BP systolic 95–102; BP diastolic 55–60; TEMP 97.3–97.8; O2SAT 97–99
[2024-10-31] VITALS (12 sets, daily range): BP systolic 99–105; BP diastolic 62–66; TEMP 97.6–98.1; O2SAT 96–99
[2024-10-31] MEDS: MAGNESIUM OXIDE 400 MG TABLET GT SCH (08:56)
[2024-11-01] VITALS (12 sets, daily range): BP systolic 95–108; BP diastolic 54–63; TEMP 96.8–97.2; O2SAT 93–99
[2024-11-02] VITALS (15 sets, daily range): BP systolic 89–108; BP diastolic 44–66; TEMP 96.1–98.3; O2SAT 95–99
[2024-11-03] VITALS (10 sets, daily range): BP systolic 90–110; BP diastolic 45–64; TEMP 97.4–97.6; O2SAT 98–99
[2024-11-04] VITALS (12 sets, daily range): BP systolic 108–113; BP diastolic 65–67; TEMP 96–98; O2SAT 97–99
[2024-11-05] VITALS (12 sets, daily range): BP systolic 111; BP diastolic 70–71; TEMP 93.6–97.6; O2SAT 98–99
[2024-11-06] VITALS (13 sets, daily range): BP systolic 100–104; BP diastolic 58–67; TEMP 97–97.7; O2SAT 97–99
[2024-11-07] VITALS (12 sets, daily range): BP systolic 96–104; BP diastolic 57–60; TEMP 97.4–97.8; O2SAT 97–99
[2024-11-08] VITALS (13 sets, daily range): BP systolic 106–114; BP diastolic 57–61; TEMP 97.8–98; O2SAT 97–99
[2024-11-09] VITALS (11 sets, daily range): BP systolic 95–101; BP diastolic 60; TEMP 97.6; O2SAT 96–99
[2024-11-10] VITALS (11 sets, daily range): BP systolic 96–108; BP diastolic 62–66; TEMP 97.2–97.5; O2SAT 97–99
[2024-11-11] VITALS (13 sets, daily range): BP systolic 94–106; BP diastolic 60–66; TEMP 97.3–97.5; O2SAT 97–99
[2024-11-12] VITALS (11 sets, daily range): BP systolic 92–118; BP diastolic 57–73; TEMP 96–97.6; O2SAT 97–99
[2024-11-13] VITALS (14 sets, daily range): BP systolic 95–98; BP diastolic 57–58; TEMP 97.4–97.8; O2SAT 96–99
[2024-11-14] VITALS (13 sets, daily range): BP systolic 100–101; BP diastolic 59–63; TEMP 97.6; O2SAT 97–99
[2024-11-15] VITALS (13 sets, daily range): BP systolic 96–105; BP diastolic 63–65; TEMP 97.5–97.7; O2SAT 97–99
[2024-11-16] VITALS (10 sets, daily range): BP systolic 99–107; BP diastolic 61–64; TEMP 97.1–97.5; O2SAT 97–99
[2024-11-17] VITALS (11 sets, daily range): BP systolic 99–115; BP diastolic 56–77; TEMP 97.2–97.3; O2SAT 97–99
[2024-11-18] VITALS (13 sets, daily range): BP systolic 98–102; BP diastolic 60–68; TEMP 97.4–97.6; O2SAT 97–99
[2024-11-19] VITALS (11 sets, daily range): BP systolic 100–128; BP diastolic 61–75; TEMP 97.1–97.6; O2SAT 97–99
[2024-11-20] VITALS (12 sets, daily range): BP systolic 90–112; BP diastolic 51–66; TEMP 94.2–98.1; O2SAT 97–100
[2024-11-21] VITALS (13 sets, daily range): BP systolic 76–114; BP diastolic 42–70; TEMP 96.4–97.6; O2SAT 98–99
[2024-11-22] VITALS (14 sets, daily range): BP systolic 98–101; BP diastolic 58–61; TEMP 97–98.9; O2SAT 98–99
[2024-11-23] VITALS (12 sets, daily range): BP systolic 98–103; BP diastolic 62–63; TEMP 97.4–97.5; O2SAT 97–99
[2024-11-24] VITALS (11 sets, daily range): BP systolic 92–104; BP diastolic 46–64; TEMP 96.4–97; O2SAT 97–99
[2024-11-25] VITALS (14 sets, daily range): BP systolic 94–102; BP diastolic 63–64; TEMP 97–97.3; O2SAT 97–99
[2024-11-25] MEDS: TUBERCULIN,PURIF.PROT.DERIV. 5 TU/0.1 ML TEST ID ONE (15:15)
[2024-11-26] VITALS (11 sets, daily range): BP systolic 105–106; BP diastolic 64–67; TEMP 97.2–97.3; O2SAT 97–99
[2024-11-27] VITALS (13 sets, daily range): BP systolic 100–107; BP diastolic 60–64; TEMP 94–97.6; O2SAT 97–99
[2024-11-28] VITALS (13 sets, daily range): BP systolic 101–108; BP diastolic 58–74; TEMP 97.7–97.8; O2SAT 97–99
[2024-11-29] VITALS (12 sets, daily range): BP systolic 92–95; BP diastolic 51–55; TEMP 97.3–97.5; O2SAT 97–99
[2024-11-30] VITALS (11 sets, daily range): BP systolic 96–103; BP diastolic 56–69; TEMP 97.8–98.6; O2SAT 97–99
[2024-12-01] VITALS (11 sets, daily range): BP systolic 100–102; BP diastolic 60–67; TEMP 97.3–98.2; O2SAT 97–99
[2024-12-02] VITALS (13 sets, daily range): BP systolic 98–104; BP diastolic 63–64; TEMP 97–97.5; O2SAT 98–99
[2024-12-03] VITALS (10 sets, daily range): BP systolic 100–106; BP diastolic 58–63; TEMP 97.3–97.6; O2SAT 98–99
[2024-12-04] VITALS (13 sets, daily range): BP systolic 110–119; BP diastolic 67–68; TEMP 98.2; O2SAT 98–99
[2024-12-05] VITALS (13 sets, daily range): BP systolic 104–112; BP diastolic 65–68; TEMP 97.4; O2SAT 98–100
[2024-12-06] VITALS (12 sets, daily range): BP systolic 96; BP diastolic 64; TEMP 97.8; O2SAT 97–99
[2024-12-07] VITALS (13 sets, daily range): BP systolic 104–108; BP diastolic 55–72; TEMP 97.4–97.5; O2SAT 98–99
[2024-12-08] VITALS (12 sets, daily range): BP systolic 99–129; BP diastolic 54–63; TEMP 97.1–97.5; O2SAT 97–99
[2024-12-09] VITALS (12 sets, daily range): BP systolic 98–110; BP diastolic 63–64; TEMP 97.1–97.2; O2SAT 96–99
[2024-12-10] VITALS (11 sets, daily range): BP systolic 112–115; BP diastolic 67–71; TEMP 97.3; O2SAT 97–99
[2024-12-11] VITALS (12 sets, daily range): BP systolic 101; BP diastolic 68; TEMP 97.6; O2SAT 96–99
[2024-12-12] VITALS (12 sets, daily range): BP systolic 90–110; BP diastolic 56–58; TEMP 97.2–97.5; O2SAT 96–99
[2024-12-13] VITALS (13 sets, daily range): BP systolic 102–103; BP diastolic 59–77; TEMP 97.3–97.6; O2SAT 96–99
[2024-12-14] VITALS (11 sets, daily range): BP systolic 90–94; BP diastolic 50–51; TEMP 97.3–97.7; O2SAT 96–99
[2024-12-15] VITALS (10 sets, daily range): BP systolic 91–131; BP diastolic 57–62; TEMP 97.3–97.8; O2SAT 96–99
[2024-12-16] VITALS (13 sets, daily range): BP systolic 103–119; BP diastolic 42–56; TEMP 97.1–97.5; O2SAT 97–99
[2024-12-16 07:06] LABS: PLATELET COUNT (AUTO) 138 K/uL (152-348); RED BLOOD CELL COUNT(AUTO) 4.15 MIL/uL (4.06-5.63); RED CELL DISTRIBUTION WIDTH 16.0 % (12.1-16.2); WHITE BLOOD COUNT (AUTO) 6.6 K/uL (3.6-10.2)
[2024-12-16 07:35] LABS: ASPARTATE AMINOTRANSFERASE 17 U/L (15-37); CREATININE 0.3 mg/dL (0.6-1.3); SODIUM SERUM 140 mmol/L (136-145); TOTAL PROTEIN, SERUM 7.7 g/dL (6.4-8.2); UREA NITROGEN, BLOOD 9 mg/dL (7-18)
[2024-12-16] MEDS: MAGNESIUM OXIDE 400 MG TABLET GT ONE (09:31)
[2024-12-17] VITALS (11 sets, daily range): BP systolic 101–119; BP diastolic 71–74; TEMP 97.4–97.5; O2SAT 96–99
[2024-12-18] VITALS (12 sets, daily range): BP systolic 104–106; BP diastolic 66–73; TEMP 97.7–97.8; O2SAT 95–99
[2024-12-19] VITALS (12 sets, daily range): BP systolic 96–97; BP diastolic 54–68; TEMP 97.1–97.6; O2SAT 97–99
[2024-12-20] VITALS (13 sets, daily range): BP systolic 90–102; BP diastolic 51–55; TEMP 97.6–98; O2SAT 97–99
[2024-12-21] VITALS (13 sets, daily range): BP systolic 103–106; BP diastolic 63–64; TEMP 97.7–97.8; O2SAT 97–99
[2024-12-22] VITALS (12 sets, daily range): BP systolic 93–99; BP diastolic 57–65; TEMP 96.1–97.1; O2SAT 97–99
[2024-12-23] VITALS (12 sets, daily range): BP systolic 98–104; BP diastolic 50–62; TEMP 97.3–97.4; O2SAT 97–99
[2024-12-24] VITALS (12 sets, daily range): BP systolic 101–114; BP diastolic 63–68; TEMP 97.4–98; O2SAT 97–99
[2024-12-25] VITALS (14 sets, daily range): BP systolic 91–103; BP diastolic 60–64; TEMP 97.5–97.7; O2SAT 97–99
[2024-12-26] VITALS (12 sets, daily range): BP systolic 99–100; BP diastolic 52–62; TEMP 97.6–97.8; O2SAT 97–99
[2024-12-27] VITALS (11 sets, daily range): BP systolic 98–118; BP diastolic 61–70; TEMP 97.6–98.3; O2SAT 97–99
[2024-12-28] VITALS (10 sets, daily range): BP systolic 98–103; BP diastolic 61–66; TEMP 97.3–97.5; O2SAT 98–99
[2024-12-29] VITALS (14 sets, daily range): BP systolic 106–110; BP diastolic 60–64; TEMP 96.6–97.9; O2SAT 97–99
[2024-12-30] VITALS (12 sets, daily range): BP systolic 96–101; BP diastolic 60–61; TEMP 97.3–98; O2SAT 97–99
[2024-12-31] VITALS (11 sets, daily range): BP systolic 95–106; BP diastolic 61–64; TEMP 97.3–97.8; O2SAT 97–99
[2025-01-01] VITALS (12 sets, daily range): BP systolic 105–113; BP diastolic 50–61; TEMP 97.6–97.7; O2SAT 97–99
[2025-01-02] VITALS (13 sets, daily range): BP systolic 98–105; BP diastolic 60–65; TEMP 97.5–99.5; O2SAT 97–99
[2025-01-03] VITALS (13 sets, daily range): BP systolic 104–134; BP diastolic 64–82; TEMP 97.2–97.5; O2SAT 97–99
[2025-01-04] VITALS (11 sets, daily range): BP systolic 108–109; BP diastolic 60–69; TEMP 97.5–98.4; O2SAT 97–99
[2025-01-05] VITALS (11 sets, daily range): BP systolic 103–117; BP diastolic 59–67; TEMP 97.5–97.7; O2SAT 97–99
[2025-01-06] VITALS (13 sets, daily range): BP systolic 112–114; BP diastolic 65–67; TEMP 97.6–98.1; O2SAT 97–99
[2025-01-07] VITALS (12 sets, daily range): BP systolic 92–93; BP diastolic 51–63; TEMP 97.3–97.6; O2SAT 97–99
[2025-01-08] VITALS (15 sets, daily range): BP systolic 99–115; BP diastolic 63–71; TEMP 96.4–97.6; O2SAT 97–99
[2025-01-09] VITALS (12 sets, daily range): BP systolic 92–109; BP diastolic 55–75; TEMP 97.5–97.8; O2SAT 97–99
[2025-01-10] VITALS (13 sets, daily range): BP systolic 97–110; BP diastolic 60–71; TEMP 97.7–97.9; O2SAT 97–99
[2025-01-11] VITALS (11 sets, daily range): BP systolic 103–104; BP diastolic 63–69; TEMP 97.3–97.9; O2SAT 98–99
[2025-01-12] VITALS (10 sets, daily range): BP systolic 103–108; BP diastolic 61–68; TEMP 97.3–98; O2SAT 98–99
[2025-01-12 07:32] LABS: PLATELET COUNT (AUTO) 136 K/uL (152-348); RED BLOOD CELL COUNT(AUTO) 4.11 MIL/uL (4.06-5.63); RED CELL DISTRIBUTION WIDTH 16.3 % (12.1-16.2); WHITE BLOOD COUNT (AUTO) 8.8 K/uL (3.6-10.2)
[2025-01-12 07:47] LABS: ASPARTATE AMINOTRANSFERASE 11 U/L (15-37); CREATININE 0.2 mg/dL (0.6-1.3); SODIUM SERUM 137 mmol/L (136-145); TOTAL PROTEIN, SERUM 7.3 g/dL (6.4-8.2); UREA NITROGEN, BLOOD 9 mg/dL (7-18)
[2025-01-12 08:30] LABS: BASOPHILS % (MANUAL) 1 % (0-2); EOSINOPHILS % (MANUAL) 2 % (0-8); LYMPHOCYTES % (MANUAL) 18 % (20-40); MONOCYTES % (MANUAL) 16 % (2-10); NEUTROPHILS % (MANUAL) 63 % (42-75); PLATELET ESTIMATE DECREASED
[2025-01-12] MEDS: MAGNESIUM OXIDE 400 MG TABLET PO ONE (12:00)
[2025-01-13] VITALS (11 sets, daily range): BP systolic 120–121; BP diastolic 59–70; TEMP 98.3–98.4; O2SAT 98–99
[2025-01-14] VITALS (10 sets, daily range): BP systolic 114–118; BP diastolic 66–68; TEMP 97.3–98.2; O2SAT 98–99
[2025-01-15] VITALS (12 sets, daily range): BP systolic 101–120; BP diastolic 60–66; TEMP 97.6–97.7; O2SAT 97–99
[2025-01-15] MEDS: MAGNESIUM OXIDE 400 MG TABLET GT ONE (09:13)
[2025-01-16] VITALS (12 sets, daily range): BP systolic 107–122; BP diastolic 69–80; TEMP 97.6–97.7; O2SAT 97–99
[2025-01-16] MEDS: MAGNESIUM OXIDE 400 MG TABLET GT SCH (21:07)
[2025-01-17] VITALS (12 sets, daily range): BP systolic 83–111; BP diastolic 49–60; TEMP 96.5–97.5; O2SAT 97–99
[2025-01-18] VITALS (10 sets, daily range): BP systolic 98–109; BP diastolic 63–72; TEMP 97.7–97.8; O2SAT 97–99
[2025-01-19] VITALS (11 sets, daily range): BP systolic 102–109; BP diastolic 57–69; TEMP 97.1–97.5; O2SAT 97–99
[2025-01-20] VITALS (13 sets, daily range): BP systolic 114–119; BP diastolic 71–72; TEMP 98.3–98.6; O2SAT 97–99
[2025-01-21] VITALS (11 sets, daily range): BP systolic 95–106; BP diastolic 45–70; TEMP 97.7–98.3; O2SAT 97–99
[2025-01-22] VITALS (13 sets, daily range): BP systolic 107–125; BP diastolic 70–76; TEMP 97.5–98.3; O2SAT 97–99
[2025-01-23] VITALS (12 sets, daily range): BP systolic 101–102; BP diastolic 61–68; TEMP 97.7–97.8; O2SAT 97–99
[2025-01-24] VITALS (12 sets, daily range): BP systolic 95–110; BP diastolic 51–71; TEMP 97.1–97.7; O2SAT 97–99
[2025-01-25] VITALS (10 sets, daily range): BP systolic 105–113; BP diastolic 70–76; TEMP 97.7–98.5; O2SAT 98–99
[2025-01-26] VITALS (11 sets, daily range): BP systolic 100–123; BP diastolic 57–82; TEMP 97.8–98.2; O2SAT 96–99
[2025-01-27] VITALS (14 sets, daily range): BP systolic 109–118; BP diastolic 66–72; TEMP 97.4–97.6; O2SAT 96–99
[2025-01-27 07:13] LABS: PLATELET COUNT (AUTO) 151 K/uL (152-348); RED BLOOD CELL COUNT(AUTO) 4.24 MIL/uL (4.06-5.63); RED CELL DISTRIBUTION WIDTH 16.0 % (12.1-16.2); WHITE BLOOD COUNT (AUTO) 5.7 K/uL (3.6-10.2)
[2025-01-27 07:31] LABS: CREATININE < 0.2 mg/dL (0.6-1.3); SODIUM SERUM 137 mmol/L (136-145); UREA NITROGEN, BLOOD 10 mg/dL (7-18)
[2025-01-28] VITALS (11 sets, daily range): BP systolic 109–121; BP diastolic 73–76; TEMP 97.2–97.6; O2SAT 96–99
[2025-01-29] VITALS (12 sets, daily range): BP systolic 100–110; BP diastolic 64–65; TEMP 96.7–97.7; O2SAT 97–99
[2025-01-30] VITALS (12 sets, daily range): BP systolic 110–122; BP diastolic 65–78; TEMP 97.5–97.6; O2SAT 97–99
[2025-01-31] VITALS (13 sets, daily range): BP systolic 103–115; BP diastolic 64–77; TEMP 97.7–98.1; O2SAT 97–99
[2025-02-01] VITALS (12 sets, daily range): BP systolic 107–108; BP diastolic 64–69; TEMP 97.8–97.9; O2SAT 97–99
[2025-02-02] VITALS (11 sets, daily range): BP systolic 110–115; BP diastolic 73–76; TEMP 97.6–97.8; O2SAT 97–99
[2025-02-03] VITALS (13 sets, daily range): BP systolic 94–110; BP diastolic 51–68; TEMP 97.4–97.5; O2SAT 97–99
[2025-02-04] VITALS (11 sets, daily range): BP systolic 105–115; BP diastolic 61–66; TEMP 97.4–97.5; O2SAT 97–99
[2025-02-05] VITALS (12 sets, daily range): BP systolic 103–106; BP diastolic 61–63; TEMP 97.5–97.7; O2SAT 97–99
[2025-02-06] VITALS (13 sets, daily range): BP systolic 109–110; BP diastolic 58–67; TEMP 97.4–97.6; O2SAT 97–99
[2025-02-07] VITALS (15 sets, daily range): BP systolic 99–112; BP diastolic 54–74; TEMP 97.7–98.1; O2SAT 95–99
[2025-02-08] VITALS (10 sets, daily range): BP systolic 89; BP diastolic 58; TEMP 97.8; O2SAT 98–99
[2025-02-09] VITALS (10 sets, daily range): BP systolic 104–122; BP diastolic 65–72; TEMP 96.3–98.3; O2SAT 97–99
[2025-02-09] MEDS: NEOMY/BACITRA/POLYMYXIN B OINT UD PACKET TP SCH (18:41)
[2025-02-10] VITALS (13 sets, daily range): BP systolic 102–103; BP diastolic 60–62; TEMP 97.6–97.7; O2SAT 97–99
[2025-02-11] VITALS (11 sets, daily range): BP systolic 101–116; BP diastolic 67–80; TEMP 97.3–97.7; O2SAT 98–99
[2025-02-12] VITALS (12 sets, daily range): BP systolic 95–105; BP diastolic 52–60; TEMP 97.4–97.6; O2SAT 98–99
[2025-02-13] VITALS (12 sets, daily range): BP systolic 94–103; BP diastolic 54–57; TEMP 98.4–98.6; O2SAT 98–99
[2025-02-13] MEDS: NEOMY/BACITRA/POLYMYXIN B OINT UD PACKET TP SCH (21:40)
[2025-02-14] VITALS (13 sets, daily range): BP systolic 115; BP diastolic 70; TEMP 98.6; O2SAT 97–99
[2025-02-15] VITALS (10 sets, daily range): BP systolic 99–100; BP diastolic 31–58; TEMP 97.5–98.6; O2SAT 97–99
[2025-02-16] VITALS (9 sets, daily range): BP systolic 119; BP diastolic 65; TEMP 98; O2SAT 97–99
[2025-02-17] VITALS (12 sets, daily range): BP systolic 97–99; BP diastolic 62–63; TEMP 97.9; O2SAT 97–99
[2025-02-18] VITALS (12 sets, daily range): BP systolic 96–100; BP diastolic 51–58; TEMP 96.6–97.5; O2SAT 97–99
[2025-02-19] VITALS (13 sets, daily range): BP systolic 102–105; BP diastolic 61–66; TEMP 96.6–98.3; O2SAT 92–99
[2025-02-20] VITALS (11 sets, daily range): BP systolic 95–126; BP diastolic 61–79; TEMP 96.4–97.6; O2SAT 97–99
[2025-02-21] VITALS (13 sets, daily range): BP systolic 107–112; BP diastolic 64–68; TEMP 97.6; O2SAT 97–99
[2025-02-22] VITALS (10 sets, daily range): BP systolic 86–106; BP diastolic 61–67; TEMP 96.8–98.5; O2SAT 97–99
[2025-02-23] VITALS (12 sets, daily range): BP systolic 102–112; BP diastolic 61–70; TEMP 98.1–99; O2SAT 97–99
[2025-02-24] VITALS (15 sets, daily range): BP systolic 94–101; BP diastolic 55–58; TEMP 98.1–98.6; O2SAT 96–99
[2025-02-25] VITALS (11 sets, daily range): BP systolic 97–110; BP diastolic 54–68; TEMP 98.1–98.9; O2SAT 96–99
[2025-02-26] VITALS (12 sets, daily range): BP systolic 92–95; BP diastolic 56–57; TEMP 96.8–98; O2SAT 96–99
[2025-02-27] VITALS (11 sets, daily range): BP systolic 95; BP diastolic 56; TEMP 97.6; O2SAT 97–99
[2025-02-28] VITALS (12 sets, daily range): BP systolic 101–104; BP diastolic 62–72; TEMP 97.6–98; O2SAT 97–99
[2025-03-01] VITALS (10 sets, daily range): BP systolic 93–113; BP diastolic 62–76; TEMP 97.4–98.1; O2SAT 97–99
[2025-03-02] VITALS (11 sets, daily range): BP systolic 98–102; BP diastolic 60–65; TEMP 97.1–97.6; O2SAT 97–99
[2025-03-02] MEDS: NEOMY/BACITRA/POLYMYXIN B OINT UD PACKET TP SCH (21:13)
[2025-03-03] VITALS (13 sets, daily range): BP systolic 115–120; BP diastolic 67–77; TEMP 97.4–97.5; O2SAT 97–99
[2025-03-04] VITALS (11 sets, daily range): BP systolic 100–103; BP diastolic 58–70; TEMP 97.2–97.6; O2SAT 97–99
[2025-03-05] VITALS (13 sets, daily range): BP systolic 103–125; BP diastolic 67–79; TEMP 96.4–97.7; O2SAT 97–99
[2025-03-06] VITALS (14 sets, daily range): BP systolic 104–115; BP diastolic 65–70; TEMP 92.4–97.6; O2SAT 97–99
[2025-03-07] VITALS (15 sets, daily range): BP systolic 101–106; BP diastolic 58–61; TEMP 96.2–98; O2SAT 97–99
[2025-03-08] VITALS (12 sets, daily range): BP systolic 95–124; BP diastolic 60–69; TEMP 97–98.6; O2SAT 97–99
[2025-03-09] VITALS (11 sets, daily range): BP systolic 96; BP diastolic 57–67; TEMP 97.2–97.7; O2SAT 97–99
[2025-03-10] VITALS (14 sets, daily range): BP systolic 98–108; BP diastolic 67–69; TEMP 97.6–98.3; O2SAT 97–99
[2025-03-11] VITALS (11 sets, daily range): BP systolic 93–102; BP diastolic 64–66; TEMP 97.5–98.4; O2SAT 97–99
[2025-03-12] VITALS (12 sets, daily range): BP systolic 95–105; BP diastolic 45–58; TEMP 97.6–97.7; O2SAT 97–99
[2025-03-13] VITALS (13 sets, daily range): BP systolic 95–160; BP diastolic 60–72; TEMP 97.5–98.3; O2SAT 97–99
[2025-03-14] VITALS (13 sets, daily range): BP systolic 106; BP diastolic 64; TEMP 98; O2SAT 97–99
[2025-03-15] VITALS (14 sets, daily range): BP systolic 90–135; BP diastolic 54–71; TEMP 97.6–98.7; O2SAT 89–99
[2025-03-16] VITALS (13 sets, daily range): BP systolic 106–121; BP diastolic 55–61; TEMP 98.7–102.3; O2SAT 97–99
[2025-03-16 21:03] LABS: PLATELET COUNT (AUTO) 132 K/uL (152-348); RED BLOOD CELL COUNT(AUTO) 4.74 MIL/uL (4.06-5.63); RED CELL DISTRIBUTION WIDTH 16.5 % (12.1-16.2); WHITE BLOOD COUNT (AUTO) 16.5 K/uL (3.6-10.2)
[2025-03-16 21:16] LABS: ASPARTATE AMINOTRANSFERASE 18 U/L (15-37); CREATININE 0.5 mg/dL (0.6-1.3); SODIUM SERUM 138 mmol/L (136-145); TOTAL PROTEIN, SERUM 8.3 g/dL (6.4-8.2); UREA NITROGEN, BLOOD 14 mg/dL (7-18)
[2025-03-16 21:22] LABS: BASOPHILS % (MANUAL) 0 % (0-2); EOSINOPHILS % (MANUAL) 2 % (0-8); LYMPHOCYTES % (MANUAL) 10 % (20-40); MONOCYTES % (MANUAL) 18 % (2-10); NEUTROPHILS % (MANUAL) 70 % (42-75)
[2025-03-16] MEDS: ACETAMINOPHEN 650 MG/20 ML UDC- SA PATIENTS-FEVER ONLY GT PRN (21:25)
[2025-03-17] MEDS ORDERED: GUAR205P3 GT (00:16)
[2025-03-17] MEDS ORDERED: DOXY100C5 GT (00:16)
[2025-03-17] MEDS ORDERED: PETR113P TP (00:16)
[2025-03-17] MEDS ORDERED: LATA2.5D15 EACHEYE (00:16)
[2025-03-17] MEDS ORDERED: [UNRECOGNIZED DRUG - CODE] TP (00:16)
[2025-03-17] MEDS ORDERED: PHEN20EL8 GT (00:16)
[2025-03-17] MEDS ORDERED: BISA10SU61 RC (00:16)
[2025-03-17 08:00] VITALS: O2SAT 96
[2025-03-17 08:10] VITALS: O2SAT 99
[2025-03-17] MEDS ORDERED: ATOR10TA GT (11:50)
[2025-03-17] MEDS ORDERED: MAGN400C GT (11:53)
== END 2025-03-17 10:00 | disposition short-term general hospital (02) | DRG 189 ==
LOC: SA → UNDOLOA 03-16 22:30
PROVIDERS: ADMIT Internal Medicine; ATTEND Internal Medicine
DX: J96.11 Chronic respiratory failure with hypoxia (principal); R53.2 Functional quadriplegia; A41.9 Sepsis, unspecified organism; R65.20 Severe sepsis without septic shock; G93.1 Anoxic brain damage, not elsewhere classified; J98.11 Atelectasis; L02.11 Cutaneous abscess of neck; N20.1 Calculus of ureter; N39.0 Urinary tract infection, site not specified; E78.1 Pure hyperglyceridemia; G40.909 Epilepsy, unspecified, not intractable, without status epilepticus; H40.9 Unspecified glaucoma; N35.919 Unspecified urethral stricture, male, unspecified site; R13.10 Dysphagia, unspecified; Z87.442 Personal history of urinary calculi; Z93.0 Tracheostomy status; Z93.1 Gastrostomy status; N34.2 Other urethritis; L02.12 Furuncle of neck; L73.9 Follicular disorder, unspecified; R47.02 Dysphasia; Z87.440 Personal history of urinary (tract) infections; Z88.1 Allergy status to other antibiotic agents
CPT/HCPCS: 36415; 70030-TC; 71045; 74018; 80164; 80184; 83735; 84100; 85025; 86580; 87040; 93005; 94640; 94760; A4663; A6209; A6213; C1758; J3590; Q9963

== ENCOUNTER 2025-03-16 22:46 | Inpatient (IN) | payer OTHER ==
[~2025-03-16] VITALS: Ht 170.2 cm; Wt 100.7 kg
[2025-03-16] MEDS: IV NORMAL SALINE 1000 ML BAG IV ONE (23:15)
[2025-03-16] MEDS: MEROPENEM 1 G in IV NORMAL SALINE 100 ML IV ONE (23:15)
[2025-03-16] MEDS: VANCOMYCIN IV 1,000 MG in IV DEXTROSE 5% 250 ML IV ONE (23:15)
[2025-03-16 23:24] LABS: PLATELET COUNT (AUTO) 148 K/uL (152-348); RED BLOOD CELL COUNT(AUTO) 4.36 MIL/uL (4.06-5.63); RED CELL DISTRIBUTION WIDTH 16.4 % (12.1-16.2); WHITE BLOOD COUNT (AUTO) 18.4 K/uL (3.6-10.2)
[2025-03-16] MEDS ORDERED: SWABABLE VALVE TRANSFER SET EA MC ONE (23:32)
[2025-03-16] MEDS ORDERED: IV NORMAL SALINE 250 ML IV ONE (23:32)
[2025-03-16] MEDS ORDERED: IOHEXOL 350 100 ML INFUS..BTL ONE (23:32)
[2025-03-16 23:34] LABS: CREATININE 0.5 mg/dL (0.6-1.3); SODIUM SERUM 141 mmol/L (136-145); UREA NITROGEN, BLOOD 14 mg/dL (7-18)
[2025-03-16 23:39] LABS: ASPARTATE AMINOTRANSFERASE 16 U/L (15-37)
[2025-03-16 23:40] LABS: TOTAL PROTEIN, SERUM 7.8 g/dL (6.4-8.2)
[2025-03-16 23:44] LABS: LACTIC ACID 3.0 mmol/L (0.4-2.0)
[2025-03-17] VITALS (10 sets, daily range): BP systolic 121–133; BP diastolic 46–64; TEMP 96.6–100; O2SAT 93–98
[2025-03-17] MEDS ORDERED: PETR113P TP (00:16)
[2025-03-17] MEDS ORDERED: BISA10SU61 RC (00:16)
[2025-03-17] MEDS ORDERED: PHEN20EL8 GT (00:16)
[2025-03-17] MEDS ORDERED: [UNRECOGNIZED DRUG - CODE] TP (00:16)
[2025-03-17] MEDS ORDERED: DOXY100C5 GT (00:16)
[2025-03-17] MEDS ORDERED: GUAR205P3 GT (00:16)
[2025-03-17] MEDS ORDERED: LATA2.5D15 EACHEYE (00:16)
[2025-03-17] MEDS ORDERED: VANCOMYCIN IV 200 ML ONE (01:28)
[2025-03-17 02:46] LABS: *BILIRUBIN,URIN NEGATIVE (NEGATIVE); *BLOOD, URINE 1+ (NEGATIVE); *CLARITY,URINE TURBID (CLEAR); *COLOR,URINE DARK YELLOW (YELLOW); *KETONES,URINE 1+ (NEGATIVE); *PROTEIN,URINE 2+ (NEGATIVE); *UROBILINOGEN,URINE 0.2 E.U./dl (NORMAL); LEUKOCYTE ESTERASE ,URINE 3+ (NEGATIVE); NITRITE, URINE POSITIVE (NEGATIVE); UGLUCOSE NEGATIVE (NEGATIVE)
[2025-03-17] MEDS ORDERED: MAGNESIUM HYDROXIDE 30 ML LIQUID UDC GT PRN (04:15)
[2025-03-17] MEDS ORDERED: ONDANSETRON 4 MG/2 ML VIAL IV PRN (04:15)
[2025-03-17] MEDS ORDERED: BISACODYL 10 MG SUPP.RECT RC PRN (04:30)
[2025-03-17 06:00] LABS: PLATELET COUNT (AUTO) 112 K/uL (152-348); RED BLOOD CELL COUNT(AUTO) 4.02 MIL/uL (4.06-5.63); RED CELL DISTRIBUTION WIDTH 16.3 % (12.1-16.2); WHITE BLOOD COUNT (AUTO) 13.7 K/uL (3.6-10.2)
[2025-03-17] MEDS ORDERED: Medication Not On Formulary EA (Valproate Sodium (Valproic Acid) 500 MG) GT SCH (06:00)
[2025-03-17] MEDS ORDERED: Medication Not On Formulary EA (Acidophilus/Bulgaricus (Floranex Tablet) 1 EACH) GT SCH (06:00)
[2025-03-17 06:06] LABS: CREATININE 0.3 mg/dL (0.6-1.3); SODIUM SERUM 144 mmol/L (136-145); UREA NITROGEN, BLOOD 14 mg/dL (7-18)
[2025-03-17] MEDS: PHENOBARBITAL 32.4 MG TABLET GT SCH (09:14)
[2025-03-17] MEDS: BACLOFEN 20 MG TABLET GT SCH (09:14)
[2025-03-17] MEDS: PANTOPRAZOLE SODIUM 40 MG VIAL IV SCH (09:14)
[2025-03-17] MEDS: REMEDY ESSENTIAL ZINC PASTE 113 GM TP PRN (09:15)
[2025-03-17] MEDS: VANCOMYCIN IV 500 MG in IV NORMAL SALINE 100 ML IV ONE (09:17)
[2025-03-17] MEDS: POLYVINYL ALCOHOL OPHT DROPS 15 ML BOTTLE EACHEYE SCH (09:17)
[2025-03-17] MEDS: MEROPENEM 1 G in IV NORMAL SALINE 100 ML IV SCH (09:17)
[2025-03-17] MEDS: POTASSIUM CHLORIDE 20 MEQ POWDER PACKET GT ONE (10:31)
[2025-03-17] MEDS: ACETAMINOPHEN 325 MG TABLET GT PRN (10:31)
[2025-03-17] MEDS ORDERED: ATOR10TA GT (11:50)
[2025-03-17] MEDS ORDERED: MAGN400C GT (11:53)
[2025-03-17] MEDS: JEVITY 1.2 1000 ML LIQUID GT PRN (13:14)
[2025-03-17] MEDS: MAGNESIUM OXIDE 400 MG TABLET PO ONE (13:15)
[2025-03-17] MEDS: ACIDOPHILUS/BULGARICUS CHEW TAB GT SCH (13:16)
[2025-03-17] MEDS: VALPROIC ACID 250 MG/5 ML LIQUID UDC GT SCH (13:16)
[2025-03-17] MEDS: VANCOMYCIN IV 1,250 MG in IV DEXTROSE 5% 250 ML IV SCH (15:02)
[2025-03-17] MEDS: ALBUTEROL SULFATE 2.5 MG/3 ML NEBU NEB SCH (15:33)
[2025-03-17] MEDS: IPRATROPIUM BROMIDE 0.5 MG/2.5 ML NEBU NEB SCH (15:34)
[2025-03-17] MEDS: OMEGA-3 FATTY ACIDS/FISH OIL CAPSULE GT SCH (20:55)
[2025-03-17] MEDS: LATANOPROST OPHT DROP 2.5 ML BOTTLE EACHEYE SCH (20:56)
[2025-03-17] MEDS ORDERED: GUAR GUM GT SCH (21:00)
[2025-03-17] MEDS: NUTRISOURCE FIBER 4 GM PACKET GT SCH (21:02)
[2025-03-17] MEDS: MIRALAX 17 GM POWD.PACK PO SCH (21:06)
[2025-03-18] VITALS (18 sets, daily range): BP systolic 95–131; BP diastolic 54–68; TEMP 96.8–101.9; O2SAT 94–99
[2025-03-18 06:49] LABS: PLATELET COUNT (AUTO) 111 K/uL (152-348); RED BLOOD CELL COUNT(AUTO) 3.79 MIL/uL (4.06-5.63); RED CELL DISTRIBUTION WIDTH 16.3 % (12.1-16.2); WHITE BLOOD COUNT (AUTO) 9.9 K/uL (3.6-10.2)
[2025-03-18 07:38] LABS: ASPARTATE AMINOTRANSFERASE 38 U/L (15-37); CREATININE 0.3 mg/dL (0.6-1.3); SODIUM SERUM 139 mmol/L (136-145); TOTAL PROTEIN, SERUM 6.9 g/dL (6.4-8.2); UREA NITROGEN, BLOOD 13 mg/dL (7-18)
[2025-03-18] MEDS: POLYVINYL ALCOHOL OPHT DROPS 15 ML BOTTLE EACHEYE SCH (09:24)
[2025-03-18] MEDS: POTASSIUM PHOSPHATE MM 15 MMOL in IV NORMAL SALINE 250 ML IV ONE (10:11)
[2025-03-19] VITALS (19 sets, daily range): BP systolic 95–106; BP diastolic 53–76; TEMP 98.1–99.7; O2SAT 93–99
[2025-03-19 06:20] LABS: PLATELET COUNT (AUTO) 96 K/uL (152-348); RED BLOOD CELL COUNT(AUTO) 3.51 MIL/uL (4.06-5.63); RED CELL DISTRIBUTION WIDTH 16.4 % (12.1-16.2); WHITE BLOOD COUNT (AUTO) 5.3 K/uL (3.6-10.2)
[2025-03-19 06:27] LABS: CREATININE 0.3 mg/dL (0.6-1.3); SODIUM SERUM 138 mmol/L (136-145); UREA NITROGEN, BLOOD 13 mg/dL (7-18)
[2025-03-19 10:10] LABS: EOSINOPHILS % (MANUAL) 1 % (0-8); LYMPHOCYTES % (MANUAL) 10 % (20-40); MONOCYTES % (MANUAL) 16 % (2-10); NEUTROPHILS % (MANUAL) 73 % (42-75); PLATELET ESTIMATE DECREASED
[2025-03-20] VITALS (17 sets, daily range): BP systolic 104–146; BP diastolic 57–71; TEMP 98–99.6; O2SAT 90–99
[2025-03-20 06:39] LABS: PLATELET COUNT (AUTO) 100 K/uL (152-348); RED BLOOD CELL COUNT(AUTO) 3.51 MIL/uL (4.06-5.63); RED CELL DISTRIBUTION WIDTH 16.2 % (12.1-16.2); WHITE BLOOD COUNT (AUTO) 4.0 K/uL (3.6-10.2)
[2025-03-20 06:56] LABS: CREATININE 0.4 mg/dL (0.6-1.3); SODIUM SERUM 137 mmol/L (136-145); UREA NITROGEN, BLOOD 13 mg/dL (7-18)
[2025-03-20] MEDS: PANTOPRAZOLE ORAL SUSPENSION 40 MG SUSPDR.PKT GT SCH (09:24)
[2025-03-21] VITALS (14 sets, daily range): BP systolic 102–127; BP diastolic 67–84; TEMP 97.6–98.7; O2SAT 93–99
[2025-03-21 06:38] LABS: PLATELET COUNT (AUTO) 107 K/uL (152-348); RED BLOOD CELL COUNT(AUTO) 3.43 MIL/uL (4.06-5.63); RED CELL DISTRIBUTION WIDTH 16.2 % (12.1-16.2); WHITE BLOOD COUNT (AUTO) 3.6 K/uL (3.6-10.2)
[2025-03-21 07:05] LABS: CREATININE 0.2 mg/dL (0.6-1.3); SODIUM SERUM 136 mmol/L (136-145); UREA NITROGEN, BLOOD 9 mg/dL (7-18)
[2025-03-21 07:06] LABS: EOSINOPHILS % (MANUAL) 2 % (0-8); LYMPHOCYTES % (MANUAL) 10 % (20-40); MONOCYTES % (MANUAL) 22 % (2-10); NEUTROPHILS % (MANUAL) 66 % (42-75); PLATELET ESTIMATE DECREASED
[2025-03-21] MEDS: VANCOMYCIN IV 1,250 MG in IV DEXTROSE 5% 250 ML IV SCH (08:44)
[2025-03-22] VITALS (14 sets, daily range): BP systolic 92–133; BP diastolic 51–80; TEMP 97.6–99; O2SAT 94–99
[2025-03-22 06:50] LABS: PLATELET COUNT (AUTO) 128 K/uL (152-348); RED BLOOD CELL COUNT(AUTO) 3.13 MIL/uL (4.06-5.63); RED CELL DISTRIBUTION WIDTH 15.8 % (12.1-16.2); WHITE BLOOD COUNT (AUTO) 3.2 K/uL (3.6-10.2)
[2025-03-22 07:20] LABS: CREATININE 0.3 mg/dL (0.6-1.3); SODIUM SERUM 133 mmol/L (136-145); UREA NITROGEN, BLOOD 6 mg/dL (7-18)
[2025-03-22 07:58] LABS: EOSINOPHILS % (MANUAL) 2 % (0-8); LYMPHOCYTES % (MANUAL) 15 % (20-40); MONOCYTES % (MANUAL) 18 % (2-10); NEUTROPHILS % (MANUAL) 65 % (42-75); PLATELET ESTIMATE DECREASED
[2025-03-22] MEDS: MEROPENEM 1 G in IV NORMAL SALINE 100 ML IV SCH (13:01)
[2025-03-22] MEDS: VANCOMYCIN IV 1,250 MG in IV DEXTROSE 5% 250 ML IV SCH (14:41)
[2025-03-22 15:07] LABS: *SODIUM RNDM,URINE 4 mmol/L (40-220)
[2025-03-23] VITALS (17 sets, daily range): BP systolic 97–119; BP diastolic 60–76; TEMP 98.7–100.3; O2SAT 93–100
[2025-03-23] MEDS: DOXYCYCLINE HYCLATE 100 MG TABLET PO SCH (22:14)
[2025-03-23] MEDS ORDERED: CEFEPIME HCL 1 G VIAL ONE (22:27)
[2025-03-23] MEDS: CEFEPIME (MAXEPIME) 1 G in IV DEXTROSE 5% 50 ML IV SCH (22:37)
[2025-03-24] VITALS (12 sets, daily range): BP systolic 92–123; BP diastolic 54–73; TEMP 98.7–99.5; O2SAT 91–99
[2025-03-24] MEDS ORDERED: CEFEPIME HCL 1 G VIAL ONE (05:12)
[2025-03-24 07:06] LABS: PLATELET COUNT (AUTO) 211 K/uL (152-348); RED BLOOD CELL COUNT(AUTO) 3.14 MIL/uL (4.06-5.63); RED CELL DISTRIBUTION WIDTH 15.8 % (12.1-16.2); WHITE BLOOD COUNT (AUTO) 3.1 K/uL (3.6-10.2)
[2025-03-24 07:35] LABS: CREATININE 0.3 mg/dL (0.6-1.3); SODIUM SERUM 138 mmol/L (136-145); UREA NITROGEN, BLOOD 7 mg/dL (7-18)
[2025-03-24] MEDS: NEUTRA PHOS PACKET GT ONE (10:37)
[2025-03-24] MEDS: MAGNESIUM OXIDE 400 MG TABLET GT SCH (10:38)
[2025-03-24] MEDS ORDERED: MAGNESIUM OXIDE 400 MG TABLET GT ONE (11:00)
[2025-03-24] MEDS ORDERED: NEUTRA PHOS PACKET GT ONE (11:00)
== END 2025-03-24 16:42 | DRG 698 ==
LOC: ER 22:46 → TELE3 03-17 01:56
PROVIDERS: ADMIT Registered Nurse Psychiatric/Mental Health; ATTEND Internal Medicine
PROC: 02HV33Z Insertion of Infusion Device into Superior Vena Cava, Percutaneous Approach (ICD-10-PCS; principal; 2025-03-17)
DX: T83.511A Infection and inflammatory reaction due to indwelling urethral catheter, initial encounter (principal); A41.59 Other Gram-negative sepsis; J69.0 Pneumonitis due to inhalation of food and vomit; R65.20 Severe sepsis without septic shock; G93.1 Anoxic brain damage, not elsewhere classified; J96.10 Chronic respiratory failure, unspecified whether with hypoxia or hypercapnia; R40.3 Persistent vegetative state; L03.113 Cellulitis of right upper limb; E87.1 Hypo-osmolality and hyponatremia; D68.59 Other primary thrombophilia; N39.0 Urinary tract infection, site not specified; Z66 Do not resuscitate; Z93.0 Tracheostomy status; T80.89XA Other complications following infusion, transfusion and therapeutic injection, initial encounter; B96.89 Other specified bacterial agents as the cause of diseases classified elsewhere; Y73.8 Miscellaneous gastroenterology and urology devices associated with adverse incidents, not elsewhere classified; Y92.129 Unspecified place in nursing home as the place of occurrence of the external cause; G40.909 Epilepsy, unspecified, not intractable, without status epilepticus; Z88.1 Allergy status to other antibiotic agents; K59.00 Constipation, unspecified; R13.10 Dysphagia, unspecified; M24.452 Recurrent dislocation, left hip; Z68.34 Body mass index [BMI] 34.0-34.9, adult; E66.9 Obesity, unspecified; E87.6 Hypokalemia; K57.30 Diverticulosis of large intestine without perforation or abscess without bleeding; N35.919 Unspecified urethral stricture, male, unspecified site; R73.03 Prediabetes; S60.521A Blister (nonthermal) of right hand, initial encounter; R79.89 Other specified abnormal findings of blood chemistry; Z99.81 Dependence on supplemental oxygen
CPT/HCPCS: 36415; 70030-TC; 70450; 71045; 71250; 80164; 83605; 83735; 84100; 84300; 84443; 84484; 85025; 85730; 87040; 87070; 87077; 87086; 93005; 94640; 94760; A4606; A4663; A6213; G0378; J0692; J2185; J2470; J3373; J3490; J3590; J7040; J7050; Q9967